=== PATIENT | female | born 1955 | race Caucasian/White ===

== ENCOUNTER 2017-10-29 10:19 | Emergency (ER) | payer OTHER ==
--- OUTSIDE RECORDS SUMMARY | 2017-10-29 10:21 | XMS REPORT | Clinical Summary ---
:1955 Author Organization [facility] Address [address] [place] [address] Care Team Providers Name Role Phone Carlos Anguiano MD Primary Care Provider Allergies Active Allergy Reactions Severity Noted Date Comments Ciprofibrate Swelling 04/08/2016 Ciprofloxacin 06/05/2017 Levofloxacin Swelling 04/08/2016 Nsaids (Non-Steroidal Anti-Inflammatory Drug) Swelling 04/08/2016 Sulfa (Sulfonamide Antibiotics) 06/05/2017 Current Medications Prescription Sig. Disp. Refills Start Date End Date Status ARMOUR THYROID 30 mg TK 1 T PO QD. 1 01/30/2016 Active tablet estradiol (ESTRACE) Apply nightly for 42.5 g 11 04/08/2016 04/08/2017 0.01 % (0.1 mg/gram) 3 weeks, then 3 vaginal cream times per week promethazine Take 1 tablet (25 30 tablet 0 06/05/2017 07/05/2017 (PHENERGAN) 25 MG mg total) by tablet mouth every 6 (six) hours as needed for nausea or vomiting for up to 30 days. diclofenac Apply topically 4 1 Tube 0 06/05/2017 07/05/2017 (VOLTAREN) 1 % gel (four) times a day for 30 days. Active Problems Not on file Encounters Date Type Specialty Care Team Description 06/05/2017 Emergency Emergency Medicine Orlin Salmon Arthritis ( Primary Dx); MD Eduin Knee effusion, left; Knee effusion, right after 10/28/2016 Family History Medical History Relation Name Comments Heart disease Father Cancer Mother Relation Name Status Comments Father Mother Social History Tobacco Use Types Packs/Day Years Used Date Never Smoker Smokeless Tobacco: Never Used Alcohol Use Drinks/Week oz/Week Comments No Sex Assigned at Date Recorded Not on file Last Filed Vital Signs Vital Sign Reading Time Taken Blood Pressure 146/73 06/05/2017 11:05 PM [employer] Pulse 64 06/05/2017 11:05 PM [employer] Temperature 36.8 C (98.2 F) 06/05/2017 8:39 PM [employer] Respiratory Rate 16 06/05/2017 11:05 PM [employer] Oxygen Saturation 96% 06/05/2017 11:05 PM [employer] Inhaled Oxygen Concentration - - Weight - - Height 160 cm (5' 3") 06/05/2017 8:39 PM [employer] Body Mass Index - - Plan of Treatment Health Maintenance Due Date Last Done Comments CERVICAL CANCER SCREENING 1977 BREAST CANCER SCREENING 2006 COLON CANCER SCREENING 2006 SHINGRIX VACCINE (#1) 2006 ZOSTER VACCINE 2016 INFLUENZA VACCINE 10/28/2017 Procedures Procedure Name Priority Date/Time Associated Comments Diagnosis XR KNEE 3 VW RIGHT STAT 06/05/2017 9:36 Results for this PM [employer] procedure are in the results section. XR ABDOMEN ACUTE INC STAT 06/05/2017 9:35 Results for this CHEST PM [employer] procedure are in the results section. XR KNEE 3 VW LEFT STAT 06/05/2017 9:35 Results for this PM [employer] procedure are in the results section. URINALYSIS STAT 06/05/2017 9:14 Results for this PM [employer] procedure are in the results section. ESTIMATED GFR STAT 06/05/2017 9:11 Results for this PM [employer] procedure are in the results section. AMYLASE LEVEL STAT 06/05/2017 9:11 Results for this PM [employer] procedure are in the results section. SEDIMENTATION RATE STAT 06/05/2017 9:11 Results for this PM [employer] procedure are in the results section. HC COMPLETE BLD COUNT STAT 06/05/2017 9:11 Results for this W/AUTO DIFF PM [employer] procedure are in the results section. COMPREHENSIVE STAT 06/05/2017 9:11 Results for this METABOLIC PANEL PM [employer] procedure are in the results section. after 10/28/2016 Results XR Knee 3 Vw Right (06/05/2017 9:36 PM) Narrative Performed At EXAMINATION:XR KNEE 3 VW RIGHT [facility] CLINICAL HISTORY:EFFUSION ON X-RAYKNEE COMPARISON:None. IMPRESSION: There is medial compartment narrowing and spurring. No acute abnormality is noted. There may be a small knee joint effusion. [id number] Procedure Note Interface, Radiology Results Incoming - 06/05/2017 9:40 PM [employer] EXAMINATION: XR KNEE 3 VW RIGHT CLINICAL HISTORY: EFFUSION ON X-RAY KNEE COMPARISON: None. IMPRESSION: There is medial compartment narrowing and spurring. No acute abnormality is noted. There may be a small knee joint effusion. [facility]-[id number] Performing Organization Address [facility] Phone Number [facility] [address] [place] [address] XR Abdomen Acute Inc Chest (06/05/2017 9:35 PM) Narrative Performed At Examination:XR ABDOMEN ACUTE INC CHEST [facility] Clinical History: ABDOMINAL PAIN Comparison: None. Technique: Single frontal view of the chest and 2 views of the abdomen are obtained. Findings: On the chest film, the lungs are free of infiltrate. The heart size normal. No pleural effusion is seen. On the abdominal films, the bowel gas pattern is nonspecific with scattered fecal material throughout the colon. No free air is seen. No bowel dilatation is seen. Impression: Nonspecific but nonobstructive bowel gas pattern with scattered fecal material throughout the colon. [facility]-[id number] Procedure Note Interface, Radiology Results Incoming - 06/05/2017 9:39 PM [employer] Examination: XR ABDOMEN ACUTE INC CHEST Clinical History: ABDOMINAL PAIN Comparison: None. Technique: Single frontal view of the chest and 2 views of the abdomen are obtained. Findings: On the chest film, the lungs are free of infiltrate. The heart size normal. No pleural effusion is seen. On the abdominal films, the bowel gas pattern is nonspecific with scattered fecal material throughout the colon. No free air is seen. No bowel dilatation is seen. Impression: Nonspecific but nonobstructive bowel gas pattern with scattered fecal material throughout the colon. [facility]-[id number] Performing Organization Address [facility] Phone Number [facility] [address] [place] [address] XR Knee 3 Vw Left (06/05/2017 9:35 PM) Narrative Performed At Examination:XR KNEE 3 VW LEFT [facility] Clinical History: Pain Comparison: None. Findings: 3 views of the left knee are obtained. No acute fracture or dislocation is seen. There is mild joint space narrowing of the medial compartment with mild spurring. No joint effusion is seen. IMPRESSION: 1. Mild degenerative joint disease of the medial compartment of the left knee but no acute abnormality identified. [facility]-[id number] Procedure Note Interface, Radiology Results Incoming - 06/05/2017 9:40 PM [employer] Examination: XR KNEE 3 VW LEFT Clinical History: Pain Comparison: None. Findings: 3 views of the left knee are obtained. No acute fracture or dislocation is seen. There is mild joint space narrowing of the medial compartment with mild spurring. No joint effusion is seen. IMPRESSION: 1. Mild degenerative joint disease of the medial compartment of the left knee but no acute abnormality identified. [id number] Performing Organization Address City/[facility]/Zipcode Phone Number [facility] [address] [place] [address] Urinalysis (06/05/2017 9:14 PM) Glucose, UA Negative Negative DEPARTMENT OF PATHOLOGY AND GENOMIC MEDICINE, [facility] Bilirubin, UA Negative Negative [facility] Ketones, UA Negative Negative DEPART[facility] OF PATHOLOGY AND GENOMIC MEDICINE, [facility] Specific gravity, UA =<1.005 1.001 - 1.035 [facility] Blood, UA Trace (A) Negative [facility] pH, UA 6.0 5.0 - 8.5 [facility] Protein, UA Negative Negative [facility] Urobilinogen, UA <2.0 <2.0 [facility] OF PATHOLOGY AND GENOMIC MEDICINE, [facility] Nitrite, UA Negative Negative [facility] Leukocyte esterase, UA Trace (A) Negative [facility]PARTMENT OF PATHOLOGY AND GENOMIC MEDICINE, [facility] Color, UA Yellow [facility] OF PATHOLOGY AND GENOMIC MEDICINE, [facility] Appearance, UA Clear [facility] Specimen Urine Performing Organization Address City/[facility]/Zipcode Phone Number DEPARTMENT OF PATHOLOGY AND [address] [place] [address] [facility] Estimated GFR (06/05/2017 9:11 PM) GFR Non Af Amer 51 (A) mL/min/1.73 m2 [facility] GFR Af Amer 61 mL/min/1.73 m2 DEPARTMENT OF PATHOLOGY Comment: AND GENOMIC MEDICINE, Chronic kidney disease: <60 mL/min/1.73m2 [facility] Kidney failure: <15 mL/min/1.73m2 CENTER The estimated GFR is calculated from the IDMS-traceable Modification of Diet in Renal Disease Equation. The accuracy of the calculation is poor when the creatinine is normal. Calculated values >90 mL/min/1.73m2 are not reported. This equation has not been validated in children (<18 years), women, the elderly (>70 years), or ethnic groups other than Caucasians and Americans. Specimen Plasma specimen Performing Organization Address City/State/Zipcode Phone Number DEPARTMENT OF PATHOLOGY AND [address] [place] [address] [facility] Sedimentation rate (06/05/2017 9:11 PM) Sedimentation rate 5 0 - 20 mm/hr [facility] DEPARTMENT OF PATHOLOGY AND GENOMIC MEDICINE Specimen Blood Performing Organization Address City/State/Zipcode Phone Number [facility] DEPARTMENT OF PATHOLOGY AND [address] [place] [address] [facility] CBC with platelet and differential (06/05/2017 9:11 PM) WBC 7.74 4.50 - 11.00 k/uL [facility] RBC 5.38 4.20 - 5.50 m/uL [facility] HGB 15.9 12.0 - 16.0 g/dL [facility] HCT 46.4 37.0 - 47.0 % [facility] MCV 86.2 82.0 - 100.0 fL [facility] MCH 29.6 27.0 - 34.0 pg [facility] MCHC 34.3 31.0 - 37.0 g/dL [facility] RDW - SD 40.8 37.0 - 55.0 fL [facility] MPV 11.1 8.8 - 13.2 fL [facility] Platelet count 240 150 - 400 k/uL [facility] Neutrophils 61.6 39.0 - 69.0 % [facility] Lymphocytes 26.0 25.0 - 45.0 % [facility] Monocytes 11.0 (H) 0.0 - 10.0 % [facility] Eosinophils 0.9 0.0 - 5.0 % [facility] Basophils 0.5 0.0 - 1.0 % [facility] Specimen Blood Performing Organization Address City/State/Zipcode Phone Number DEPARTMENT OF PATHOLOGY AND [address] [place] [address] Amylase level (06/05/2017 9:11 PM) Amylase 34 14 - 97 U/L [facility] Specimen Plasma specimen Performing Organization Address City/State/Zipcode Phone Number DEPARTMENT OF PATHOLOGY AND [address] [place] [address] Comprehensive metabolic panel (06/05/2017 9:11 PM) Sodium 137 128 - 145 mEq/L [facility] Potassium 3.8 3.6 - 5.1 mEq/L [facility] CO2 28 18 - 33 mEq/L [facility] Chloride 103 98 - 108 mEq/L [facility] Glucose 99 73 - 118 mg/dL [facility] Calcium 9.7 8.0 - 10.3 mg/dL [facility] BUN 14 7 - 22 mg/dL [facility] Creatinine 1.1 0.6 - 1.2 mg/dL [facility] Alkaline phosphatase 73 42 - 141 U/L [facility] ALT 29 10 - 47 U/L [facility] AST 26 11 - 38 U/L [facility] Total bilirubin 1.0 0.2 - 1.6 mg/dL [facility] Albumin 4.0 3.3 - 5.5 g/dL [facility] Protein 7.2 6.4 - 8.1 g/dL [facility] Anion gap 6 (L) 7 - 15 mEq/L DEPARTMENT OF Comment: PATHOLOGY AND GENOMIC Starting from June , anion gap [facility] no longer incorporates potassium. Please note the change. [facility] A/G ratio 1.2 0.7 - 3.8 [facility] Specimen Plasma specimen Performing Organization Address City/State/Zipconv Phone Number DEPARTMENT OF PATHOLOGY AND [address] [place], [place] [id number] [place] [address] after 10/28/2016 Insurance Payer Benefit Plan / Group Subscriber ID Type Phone Address AETNA AETNA HMO,POS,EPO, MC/EC xxxxxxxxxx HMO [phone] [place] [id number]
--- OUTSIDE RECORDS SUMMARY | 2017-10-29 10:24 | XMS REPORT | Continuity of Care Document ---
:1955 Author Organization Interface Problems Problem Status Onset Classification Date Comments Source Date Reported KNEE PAIN Active [facility] [address] BDAZ-NAUSEA, EARLY Active [facility] 017 [facility] STOMACH PAIN Active [address] Discharge Diagnosis: 09/19/2015 [place] Adult hypothyroidism [address] WEAKNES AND BLURY Active [facility] VISION [address] BDAZ - NEW PT CONSULT Active [address] BDDC/ Z12.11 SCREENING Active [facility] [employer] [facility] FOR MALIGNANT ALICIA [address] [place] [address] PAIN IN THE ABDOMEN; Active [facility] AND [address] VITAMIN D DEFICIENCY Active Condition 08/23/2014 015 [facility] DIARRHEA Active Condition 08/23/2014 015 [facility] MAMMOGRAM YEARLY Active Condition 08/23/2014 SCREENING 015 Medical Group Diarrhea<sup>1</sup> Active Problem 10/09/2017 Data 015 migrated Medical from [facility], on 10/04/14. OP[place],[facility], [facility] [place] Screening Active Problem 10/09/2017 Data mammography<sup>9</sup 015 migrated Medical > from [facility], on 10/04/14. OPID [place],[facility], JESSICA [place], [place] Vitamin D Active Problem 10/09/2017 Data deficiency<sup>12</sup 015 migrated Medical > from [facility], on 10/04/14. OPID [place],[facility], J[place], [place] MYALGIA Active Condition 08/23/2014 015 [facility] Group PAIN IN JOINT, Active Condition 08/23/2014 MULTIPLE SITES 015 Medical Group GASTRITIS Active Condition 08/23/2014 015 Medical Group Gastritis<sup>3</sup> Active Problem 10/09/2017 Data 015 migrated Medical from [facility], on 10/04/14. OPID [place],[facility], [place], [place] Multiple joint Active Problem 10/09/2017 Data pain<sup>4</sup> 015 migrated Medical from [facility], on 10/04/14. OPID [place],[facility], [place], [place] Muscle Active Problem 10/09/2017 Data pain<sup>5</sup> 015 migrated Medical from [facility], on 10/04/14. OPID [place],[facility], [place], [place] Nausea<sup>6</sup> Active Problem 10/09/2017 Data 015 migrated Medical from [facility], on 10/04/14. OPID [place],[facility], [place], [place] HYPOGLYCEMIA, REACTIVE Active Condition 08/23/2014 015 Medical Group ROUTINE GENERAL Active Condition 08/23/2014 MEDICAL EXAMINATION AT [address] [place] [address] [facility] Group NUMBNESS Active Condition 08/23/2014 015 Medical Group PINWORMS Active Condition 08/23/2014 015 Medical Group Enterobiasis<sup>2</rosenberg Active Problem 10/09/2017 Data p> 015 migrated Medical from [facility], on 10/04/14. OPID [place],[facility], [place], [place] Numbness<sup>7</sup> Active Problem 10/09/2017 Data 015 migrated Medical from [facility], on 10/04/14. OPID [place],[facility], [place], [place] Reactive Active Problem 10/09/2017 Data hypoglycemia<sup>8</rosenberg 015 migrated Medical p> from Group,[facility] [place], on 10/04/14. OPID [place],[facility], [place], [place] BACK PAIN, LUMBAR, Active Condition 08/23/2014 WITH RADICULOPATHY 014 Medical Group CERVICAL RADICULOPATHY Active Condition 08/23/2014 014 Medical Group HIP PAIN, BILATERAL Active Condition 08/23/2014 014 Medical Group BREAST PAIN, BILATERAL Inactive Condition 08/23/2014 014 Medical Group Discharge Diagnosis: 12/03/2013 [place] Biliary colic [address] NAUSEA Active [place] [address] [place] ABDOMINAL PAIN, RIGHT Inactive Condition 08/23/2014 UPPER QUADRANT 014 Medical Group ABDOMINAL PAIN, LEFT Active Condition 11/07/2013 UPPER QUADRANT 014 Medical Group ACID REFLUX DISEASE Active Condition 08/23/2014 014 Medical Group MUSCLE STRAIN Active Condition 10/05/2013 014 Medical Group NAUSEA Inactive Condition 08/23/2014 014 Medical Group ROTATOR CUFF SPRAIN Active Condition 08/23/2014 014 Medical Group SACROILIITIS Inactive Condition 08/23/2014 014 Medical Group OBESITY Active Condition 08/23/2014 014 Medical Group LONG-TERM USE OF OTHER Active Condition 08/23/2014 MEDICATIONS 014 Medical Group DRY SOCKET Inactive Condition 08/23/2014 013 Medical Group HEARTBURN Inactive Condition 08/23/2014 013 Medical Group INGROWN NAIL Inactive Condition 08/23/2014 013 Medical Group FATIGUE Active Condition 08/23/2014 013 Medical Group FLAT FOOT Active Condition 08/23/2014 013 Medical Group HAIR LOSS Active Condition 08/23/2014 013 Medical Group BACK PAIN Active Condition 08/23/2014 012 Medical Group DEFICIENCY, VITAMIN D Active Condition 08/23/2014 NOS 012 Medical Group HYPERGLYCEMIA Inactive Condition 08/23/2014 012 Medical Group HYPOTHYROIDISM Active Condition 08/23/2014 012 Medical Group Sinusitis<sup>10, Resolved Problem 10/09/2017 Data 11</sup> 012 migrated Medical from [facility], [place], on 10/13/14. OPID [place],[facility], [place], [place] ASTHMA Active Condition 08/23/2014 Medical Group HEADACHE Inactive Condition 08/23/2014 Medical Group HYPERCHOLESTEROLEMIA Active Condition 08/23/2014 Medical Group FAMILY HISTORY OF Active Condition 08/23/2014 ASTHMA Medical Group FH LUNG CANCER Active Condition 08/23/2014 Medical Group FH DEPRESSION Active Condition 08/23/2014 Medical Group FH DIABETES - DM Active Condition 08/23/2014 Medical [facility] FH HEART DISEASE Active Condition 08/23/2014 Medical Group Hypoglycemia Resolved Problem 10/09/2017 Medical Group,[facility], OPID [place],[facility], [place], OP[place] Obesity Active Problem 10/09/2017 Medical Group,[facility], OPID [place],[facility], [place], [place] Medications Medication Details Route Status Patient Ordering Order Source Instructions Provider Date valACYclovir 1 g 1 gm=1 tab, No Longer oral tablet PO, Q8H, X Active 018 Medical 10 day, # Group 30 tab, 1 Refill(s), [facility]acy: [facility] [id number] pregabalin 50 MG 50 mg=1 Active Oral Capsule cap, PO, 018 Medical [Lyrica] TID, # 90 Group cap, 0 Refill(s) valACYclovir 1 g 1 gm=1 tab, No Longer oral tablet PO, Q8H, X Active 018 Medical 7 day, # 21 Group tab, 1 Refill(s), Pharmacy: [facility] [id number] valACYclovir 1 g 1 gm=1 tab, No Longer oral tablet PO, Q8H, X Active 018 Medical 7 day, # 21 Group tab, 1 Refill(s), Pharmacy: [facility] [id number] polyethylene 17 gm, PO, No Longer glycol 3350 oral Daily, X 31 Active 018 Medical powder for day, # 527 Group reconstitution gm, 1 Refill(s), Pharmacy: [facility] [id number] benzonatate 100 100 mg=1 Active mg oral capsule cap, PO, 018 Medical TID, do not Group crush or chew, X 10 day, # 30 cap, 0 Refill(s), Pharmacy: [facility] [id number] Codeine Phosphate 5 mL, PO, Active 2 MG/ML / Q12H, PRN 018 Medical Guaifenesin 20 cough, X 10 Group MG/ML Oral day, # 100 Solution mL, 0 [Cheratussin] Refill(s) Fluticasone 1 spray, Active propionate 0.05 NASAL, BID, 018 Medical MG/ACTUAT Metered # 16 gm, 2 Group Dose Nasal [place] Refill(s), Pharmacy: [facility] [employer] [id number] Azithromycin 5 See Active Day Dose Pack 250 Instruction 018 Medical mg oral tablet s, Take 2 Group tablets by mouth the first day then 1 tablet by mouth days 2-5., X 5 day, # 6 tab, 0 Refill(s), Pharmacy: [facility] [employer] [id number] clonazePAM 0.5 mg 0.5 mg=1 Active oral tablet, tab, PO, 017 Medical disintegrating BID, # 60 Group tab, 1 Refill(s) EnteraGam EnteraGam, Active [place] See 016 [facility] s, Samples given in clinic on 03/12/16. Lot [id number] exp date 10/15, # 1 box, Refill(s) 0 pantoprazole 40 40 mg=1 Active [place] MG Enteric Coated tab, PO, 016 Medical Tablet [Protonix] Daily, 0 Center Refill(s) Levothyroxine 25 Active [place] Sodium 0.025 MG microgram=1 016 [place] Oral Tablet tab, PO, [Synthroid] Daily, # 14 tab, 0 Refill(s) Sodium Chloride 1,000 mL, Inactive [place] 0.154 MEQ/ML 1,000 016 [place] Injectable ml/hr, Solution Infuse Over: 1 hr, Route: IV, 1,000, Drug form: INJ, ONCE, Priority: STAT, Dosing Weight 85.818 kg, Start date: 09/16/15 17:33:00 CDT, Duration: 1 doses or times, Stop date: 09/16/15 17:33:00 CDT Saline Flush 0.9% 10 mL, Inactive [place] Route: IVP, 016 [place] Drug Form: INJ, Dosing Weight 85.818, kg, PRN, PRN Line Flush, Start date: 09/16/15 17:33:00 CDT, Duration: 30 day, Stop date: 10/16/15 17:32:00 CDTNotes: (Same as: BD Posiflush) cholestyramine 4 4 gm, PO, Active [place] g/5 g oral powder BID, # 210 015 Medical gm, 0 Center Refill(s), called to pharmacy Promethazine 12.5 mg=1 Active [place] Hydrochloride tab, PO, 015 Medical 12.5 MG Oral Q4H, PRN Center Tablet Other-See [Phenergan] Comments, X 10 day, # 60 tab, 0 Refill(s), called to pharmacy Hyoscyamine 0.125 mg=1 Inactive [place] Sulfate 0.125 MG tab, SL, 015 Medical Sublingual Tablet Q4H, # 30 Center [Levsin] tab, 1 Refill(s), Pharmacy: [facility] [id number] Ondansetron 8 MG 8 mg=1 tab, Active [place] Disintegrating PO, TID, 015 Medical Tablet [Zofran] PRN Nausea Center and Vomiting, Dissolve tab under tongue, X 7 day, # 21 tab, 1 Refill(s), Pharmacy: [facility] [id number] GoLYTELY oral 240 mL, PO, Active [place] powder for Q10Min, # 1 015 Medical reconstitution ea, 0 Center Refill(s), Pharmacy: [facility] [id number] Flagyl 500 mg=1 Active [place] tab, PO, 015 Medical BID, # 14 Center tab, 0 Refill(s) VITAMIN D 1 capsule Active (ERGOCALCIFEROL) weekly x 12 015 Medical 84833 UNIT CAPS weeks Group OMEPRAZOLE 20 MG Take one Active CPDR capsule by 015 Medical mouth daily Group ONDANSETRON HCL 4 1 tablet Active MH MG TABS every 8 015 Medical hours as Group needed for nausea/vomi ting QSYMIA 3.75-23 MG 1 po qd Active [id number] 015 Medical Group CYCLOBENZAPRINE 1/2-1 po No Longer MH HCL 10 MG TABS TID as Active 015 Medical needed for Group spasms PROMETHAZINE HCL 1 SUPP AK Q No Longer MH 25 MG SUPP 4 TO 6 HRS Active 014 Medical PRN N/V. Group TRAMADOL HCL 50 1 tablet No Longer MH MG TABS every 12 Active 014 Medical hours as Group needed for pain GABAPENTIN 100 MG 1 capsule No Longer CAPS three times Active 014 Medical a day Group TRAMADOL HCL 50 1 tablet Active MH MG TABS every 12 014 Medical hours as Group needed for pain TRAMADOL HCL 50 1 tablet No Longer MH MG TABS every 12 Active 014 Medical hours as Group needed for pain Promethazine 12.5 mg=1 Active [place] Hydrochloride tab, PO, 014 Land 12.5 MG Oral Q6H, Nausea Tablet & Vomiting, [Phenergan] # 20 tab, 0 Refill(s) Acetaminophen 325 1 tab, PO, Active [place] MG / Hydrocodone Q6H, Pain, 014 [place] Bitartrate 5 MG # 24 tab, 0 Oral Tablet Refill(s) [[place] 5/325] Phenergan 25 mg, 1 Inactive [place] mL, Route: 014 [place] IM, Drug form: INJ, ONCE, Dosing Weight 96.818, kg, Priority: STAT, Start date: 11/30/13 12:41:00, Stop date: 11/30/13 12:41:00Not es: Do not give IV push. (Same as: Phenergan) Saline Flush 0.9% 10 mL, Inactive [place] Route: IVP, 014 [place] Drug Form: INJ, Dosing Weight 96.818, kg, PRN, PRN Line Flush, Start date: 11/30/13 12:25:00, Duration: 30 day, Stop date: 12/30/13 12:24:00Not es: (Same as: BD Posiflush) Carafate 0 Refill(s) Active MH [place] 014 [place] Promethazine 0 Refill(s) Active MH [place] 014 [place] SUCRALFATE 1 10 mL qid x No Longer MH GM/10ML SUSP 2 weeks Active 014 Medical Group PROMETHAZINE HCL 1 po BID No Longer MH 12.5 MG TABS prn Active 014 Medical Group SUCRALFATE 1 10 mL qid x No Longer MH GM/10ML SUSP 2 weeks Active 014 Medical Group OMEPRAZOLE 20 MG Take one Active MH CPDR capsule by 014 Medical mouth daily Group MELOXICAM 7.5 MG 1 tablet Active MH TABS daily as 014 Medical needed for Group pain PROMETHAZINE HCL 1-2 tablets No Longer MH 12.5 MG TABS every 6 Active 014 Medical hours as Group needed for nausea OMEPRAZOLE 20 MG Take one No Longer MH CPDR capsule by Active 014 Medical mouth daily Group MELOXICAM 7.5 MG 1 tablet No Longer MH TABS daily as Active 014 Medical needed for Group pain OMEPRAZOLE 20 MG Take one No Longer MH CPDR capsule by Active 014 Medical mouth daily Group MELOXICAM 7.5 MG 1 tablet No Longer MH TABS daily as Active 014 Medical needed for Group pain OMEPRAZOLE 20 MG Take one No Longer MH CPDR capsule by Active 014 Medical mouth daily Group MELOXICAM 7.5 MG 1 tablet No Longer MH TABS daily as Active 014 Medical needed for Group pain PHENTERMINE HCL 1 tablet in No Longer MH 37.5 MG TABS the morning Active 014 Medical Group PHENTERMINE HCL 1 tablet in No Longer MH 37.5 MG TABS the morning Active 014 Medical Group PHENTERMINE HCL 1 tablet in No Longer 06/05/2 MH 37.5 MG TABS the morning Active 014 Medical Group PHENTERMINE HCL 1 tablet in No Longer MH 37.5 MG TABS the morning Active 014 Medical Group CARAFATE 1 10 mL QID No Longer MH GM/10ML SUSP Active 013 Medical Group CARAFATE 1 10 mL QID No Longer MH GM/10ML SUSP Active 013 Medical Group ZEGERID 40-1680 1 po qd No Longer MH MG PACK Active 013 Medical Group ALIGN one daily No Longer MH Active 013 Medical Group ZEGERID 40-1680 1 po qd No Longer MH MG PACK Active 013 Medical Group GLUMETZA 500 MG 1 po qd Active MH [id number] 013 Medical Group NULEV 0.125 MG 1 po q 8-12 No Longer MH TBDP prn Active 012 Medical Group ZITHROMAX Z-MADHU Take as No Longer 250 MG TABS directed Active 012 Medical Group THYROID COMPOUND Active Medical Group Allergies, Adverse Reactions, Alerts Substance Category Reaction Severity Reaction Status Date Comments Source type Reported ANTI-INFLAMMATO Drug ANTI-INFL FIORDALIZA allergy AMMATORIE 2 Medical S Group LEVAQUIN Drug LEVAQUIN allergy 2 Medical Group BACTRIM Drug BACTRIM allergy 2 Medical Group ciprofloxacin Assertion Drug Active allergy Medical Group Levaquin Assertion Drug Active allergy Medical Group Food Iodine Assertion Drug Active allergy Medical Group NSAIDs Assertion Drug Active allergy Medical Group Immunizations Immunization Date Given Site Status Last Updated Comments Source influenza 12/08/2011 completed Medical immunization (Flu Group Vax) has been administered Results Order Name Results Value Reference Date Interpretation Comments Source Range Abdomen/Pel Abdomen/Pelv EXAM: CT ABDOMEN AND PELVIS WITHOUT CONTRAST - JESSICA vis wo IV is wo IV /2015 - [place] contrast CT contrast CT 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 COMPARISON: CT abdomen and pelvis with contrast 02/23/2015. TECHNIQUE: Volumetric CT acquisition of the abdomen and pelvis without the intravenous administration contrast. Axial, coronal and sagittal reconstructions. Oral contrast: None. FINDINGS: Multiple stable hypodensities in the liver correspond to cysts seen on prior CT. No biliary dilatation. The gallbladder surgically absent. The pancreas , spleen, and adrenal glands are unremarkable. Stab le 2.5 cm cyst in the right kidney. Multiple stable bilateral parapelvic cysts. 2 mm nonobstructing calculus in the midportion of the left kidney. No hydronephrosis. The visualized portions of the ureters and bladder are unremarkable. No bowel dilatation or obstruction. Diverticula are seen in the descending and sigmoid colon. No evidence of bowel wall thickening or pericolonic inflammatory stranding. Normal appendix. No free fluid o r free air. The uterus and adnexa are grossly unremarkable.Small bilateral inguinal hernias containing fat. Tiny umbilical hernia containing fat. Degenerative changes in the lumbar spine. Stable grade 1 anterolisthesis of L5 on S1. The S1 vertebral body transitional. IMPRESSION: 2 mm nonobstructing left renal calculus. Diverticulosis without evidence of diverticulitis. CARDIAC Troponin-I null 0.00 - 09/15 [facility] ENZYMES 0.40 /2015 [facility] CARDIAC CK MB null 0.5 - 3.6 09/15 [place] ENZYMES /2015 [facility] CARDIAC Total CK 54 unit/L 12 - 191 09/15 [facility] ENZYMES /2015 [facility] CARDIAC CK MB Index null 0.0 - 2.5 09/15 [facility] ENZYMES [facility] CHEM PANEL Total 7.0 g/dL 6.4 - 8.4 09/15 [place] Protein /2015 [facility] CHEM PANEL eGFR 71 09/15 Result Comment: The eGFR is calculated using the CKD-EPI formula. In most young, healthy individuals the eGFR will be >90 mL/ min/1.73m2. The eGFR declines with age. An eGFR of 60-89 may be normal in mL/min/1.7 /2015 some populations, particularly the elderly, for whom the CKD-EPI formula has not been extensively validated. Use of the eGFR is not recommended in the following populations: [facility] 3m2 Individuals with unstable creatinine concentrations, including patients and those with serious co-morbid conditions. Patients with extremes in muscle mass or diet. The data above are obtained from the National Kidney Disease Education Program (NKDEP) which additionally recommends that when the eGFR is used in patients with extremes of body mass index for purposes of drug dosing, the eGFR should be multiplied by the estimated BMI. CHEM PANEL Globulin 3.3 g/dL 2.0 - 4.0 09/15 [place] CHEM PANEL A/G Ratio 1.1 0.7 - 1.6 09/15 [place] CHEM PANEL Bili Total 0.8 mg/dL 0.2 - 1.3 09/15 [facility] CHEM PANEL Alk Phos 77 unit/L 39 - 136 09/15 [facility] CHEM PANEL AGAP 12.7 meq/L 10.0 - 09/15 [facility] 20.0 [place] CHEM PANEL B/C Ratio 18 6 - 25 09/15 [place] CHEM PANEL Albumin Lvl 3.7 g/dL 3.5 - 5.0 09/15 [place] CHEM PANEL ALT 24 unit/L 0 - 65 09/15 [place] CHEM PANEL AST 18 unit/L 0 - 37 09/15 [facility] CHEM PANEL Chloride Lvl 108 meq/L 95 - 109 09/15 [facility] CHEM PANEL Potassium 3.7 meq/L 3.5 - 5.1 09/15 [place] Lvl [place] CHEM PANEL CO2 28 meq/L 24 - 32 09/15 [facility] CHEM PANEL Calcium Lvl 8.6 mg/dL 8.5 - 10.5 09/15 [facility] CHEM PANEL Sodium Lvl 145 meq/L 135 - 145 09/15 [place] CHEM PANEL Creatinine 0.90 mg/dL 0.50 - 09/15 [facility] Lvl 1.40 [facility] CHEM PANEL BUN 16 mg/dL 7 - 22 09/15 [facility] CHEM PANEL Glucose Lvl 102 mg/dL 70 - 99 09/15 [facility] HEMATOLOGY WBC 8.8 K/CMM 3.7 - 10.4 09/15 [facility] HEMATOLOGY RBC 5.39 M/CMM 4.20 - 09/15 MH [place] 5.40 [place] HEMATOLOGY MCV 88.0 fL 80.0 - 09/15 [facility] 98.0 [place] HEMATOLOGY Hgb 15.6 g/dL 12.0 - 09/15 [facility] 16.0 /2015 [place] HEMATOLOGY MCH 29.0 pg 27.0 - 09/15 [facility] 31.0 /2015 [place] HEMATOLOGY MPV 9.5 fL 7.4 - 10.4 09/15 [place] /2015 [place] HEMATOLOGY Platelet 242 K/CMM 133 - 450 09/15 /2015 [facility] HEMATOLOGY MCHC 33.0 g/dL 32.0 - 09/15 [facility] 36.0 /2015 [facility] HEMATOLOGY RDW 13.3 % 11.5 - 09/15 [facility] 14.5 /2015 [place] HEMATOLOGY Hct 47.5 % 36.0 - 09/15 [facility] 48.0 /2015 [place] HEMATOLOGY Basophils 0.5 % 0.0 - 1.0 09/15 [place] HEMATOLOGY Eosinophils 1.1 % 0.0 - 4.0 09/15 /2015 [place] HEMATOLOGY Monocytes 6.3 % 2.0 - 12.0 09/15 [place] HEMATOLOGY Segs 54.0 % 45.0 - 09/15 [place] 75.0 /2015 [place] HEMATOLOGY Lymphocytes 38.1 % 20.0 - 09/15 [place] 40.0 /2015 [facility] HEMATOLOGY Basophils # 0.0 K/CMM 0.0 - 0.2 09/15 [facility] HEMATOLOGY Eosinophils 0.1 K/CMM 0.0 - 0.5 09/15 [place] # /2015 [place] HEMATOLOGY Monocytes # 0.6 K/CMM 0.0 - 0.8 09/15 [facility] HEMATOLOGY Lymphocytes 3.4 K/CMM 1.0 - 5.5 09/15 [place] # /2015 [place] HEMATOLOGY Segs-Bands # 4.7 K/CMM 1.5 - 8.1 09/15 [place] URINE AND UA Mucus None Seen None Seen 09/15 [place] STOOL (09/16/15 5:47 PM) URINE AND UA Bacteria Occasional None Seen 09/15 [place] STOOL /HPF /HPF /2015 [place] URINE AND UA Nitrite Negative Negative 09/15 [facility] STOOL (09/16/15 5:47 PM) URINE AND UA Glucose Negative Negative 09/15 [facility] STOOL [place] (09/16/15 5:47 PM) URINE AND UA Sq Epi Occasional Few /LPF 09/15 [facility] STOOL /LPF /2015 [place] URINE AND UA WBC 0-2 /HPF None Seen 09/15 [facility] STOOL /HPF URINE AND UA RBC None Seen 0 - 2 09/15 [facility] STOOL (09/16/15 5:47 PM) URINE AND Micro? Performed 09/15 [facility] STOOL (09/16/15 5:47 PM) URINE AND UA Leuk Est Negative Negative 09/15 [facility] STOOL (09/16/15 5:47 PM) URINE AND UA Protein Negative Negative 09/15 [facility] STOOL [facility] (09/16/15 5:47 PM) URINE AND UA pH 6.0 5.0 - 8.0 09/15 [facility] STOOL [facility] URINE AND UA Bili Negative Negative 09/15 [facility] *NA* (09/16/15 5:47 PM) URINE AND UA Ketones Negative Negative 09/15 [place] STOOL [facility] *NA* (09/16/15 5:47 PM) URINE AND UA 0.2 EU/dL 0.1 - 1.0 09/15 [facility] STOOL Urobilinogen [facility] URINE AND UA Blood Trace Negative 09/15 [facility] *ABN* (09/16/15 5:47 PM) URINE AND UA Turbidity Clear Clear 09/15 [facility] (09/16/15 5:47 PM) URINE AND UA Color Yellow Yellow 09/15 [facility] STOOL *NA* (09/16/15 5:47 PM) URINE AND UA Spec Grav 1.025 <=1.030 09/15 Sugar [facility] Brain wo Brain wo CLINICAL HISTORY:Syncope. 09/15 [facility] contrast CT contrast CT [facility] AGE: 59 years GENDER: Female Read by: Jose Alberto Snachez MD Dictated Date/time: 09/16/15 18:20 Electronically Signed by: Jose Alberto Sanchez MD 09/16/15 18:22 FINAL REPORT TECHNIQUE: Axial scans of the brain without contrast including multiplanar computer-generated reformations. Total Dose Length Product: 691.12 mGy-cm There is no CT evidence of acute intracranial hemorrhage, mass effect or midline shift. There is preservation of the mcintosh-white matter differentiation.. . There is no extra-axial fluid collection. Ventricles, subarachnoid spaces and sulci are appropriate for patient age. Orbits are symmetric. The paranasal sinuses and mastoid air cells well pneumatized. IMPRESSION: No acute intracranial findings. Chest 1view Chest 1view CLINICAL HISTORY: Syncope 09/15 - [place] DX DX /2015 - [place] AGE: 59 years GENDER: Female Read by: Jose Alberto Sanchez MD Dictated Date/time: 09/16/15 18:24 Electronically Signed by: Jose Alberto Sanchez MD 09/16/15 18:25 FINAL REPORT TECHNIQUE: Single AP, portable chest radiograph, 1 view. COMPARISON: None FINDINGS: The cardiomediastinal silhouette is within normal limits. No focal airspace or interstitial opacities are seen. No pleural effusions. No pneumothorax. No significant osseous abnormalities are identified. IMPRESSION: No acute cardiopulmonary disease. Abdomen/Pel Abdomen/Pelv CT OF ABDOMEN AND PELVIS WITH CONTRAST, 02/23/201502/23 - OPID vis w IV is w IV /2014 - [facility] contrast CT contrast CT [place] HISTORY: Left lower quadrant abdominal pain. Read by: Rob Townsend MD Dictated Date/time: 02/23/15 08:19 Electronically Signed by: Rob Townsend MD 02/23/15 08:32 FINAL REPORT TECHNIQUE: Sequential 5 mm axial postcontrast images were obtained from the hemidiaphragms through the symphysis pubis. Delayed axial images and sagittal and coronal reconstructions were performed. DLP: 1719 mGy-cm. FINDINGS: Small pleural tags at the lung bases. No evidence of noncalcified lung nodules or pleural effusions. Multiple small benign hepatic cysts without evidence of solid liver mass or bile duct dilatation. Absent gallbladder. Normal pancreas, spleen, adrenal glands, and inferior vena cava. Abdominal aortic ca lcifications without aneurysm. 2.5 cm benign cyst in right kidney. Multiple bilateral benign peripelvic cysts noted. No evidence of solid renal mass or hydronephrosis involving either kidney. No evidence of large or small bowel obstruction or free air. Mid descending colon diverticulosis with no CT evidence of acute diverticulitis . No evidence of torsion of appendix epiploica. Normal appendix. Mild degenerative changes in the lumbar spine. Mild anterolisthesis of L5 on S1 related to degenerative changes involving facet joints. CONCLUSION: Mild descending colon diverticulosis with no CT evidence of acute diverticulitis. Serology HELICOB IGG 0.6 U/mL 08/23 [facility] Chemistry T4, FREE 0.96 ng/dl 0.76 - 08/22 1.46 /2014 [facility] Hematology ESR 1 mm/hr 0 - 20 08/22 [facility] Serology RHONDA Negative 08/22 [facility] URINE AND UA Bacteria Occasional None Seen 11/30 [place] STOOL /HPF /HPF [facility] URINE AND UA RBC 0-2 /HPF 0 - 2 11/30 [facility] URINE AND UA Sq Epi Few /LPF Few /LPF 11/30 [facility] URINE AND UA WBC 0-2 /HPF None Seen 11/30 [place] STOOL /HPF /2013 [facility] URINE AND UA Bili Negative Negative 11/30 [facility] *NA* (11/30/13 2:00 PM) URINE AND UA Blood Trace Negative 11/30 [facility] *ABN* (11/30/13 2:00 PM) URINE AND UA 0.2 EU/dL 0.1 - 1.0 11/30 [place] STOOL Urobilinogen [facility] URINE AND UA pH 6.0 5.0 - 8.0 11/30 [facility] URINE AND UA Ketones Negative Negative 11/30 [facility] *NA* (11/30/13 2:00 PM) URINE AND UA Protein Negative Negative 11/30 [facility] (11/30/13 2:00 PM) URINE AND UA Glucose Negative Negative 11/30 [facility] (11/30/13 2:00 PM) URINE AND UA Turbidity Clear Clear 11/30 [facility] (11/30/13 2:00 PM) URINE AND UA Spec Grav 1.020 <=1.030 11/30 [facility] URINE AND UA Color Yellow Yellow 11/30 [place] STOOL [facility] *NA* (11/30/13 2:00 PM) URINE AND UA Leuk Est Negative Negative 11/30 [facility] (11/30/13 2:00 PM) URINE AND UA Nitrite Negative Negative 11/30 [place] STOOL [facility] (11/30/13 2:00 PM) CHEM PANEL B/C Ratio 16 6 - 25 11/30 [facility] CHEM PANEL AGAP 14.0 meq/L 10.0 - 11/30 [facility] [place] 20.0 [place] CHEM PANEL Globulin 3.9 g/dL 2.0 - 4.0 11/30 [place] CHEM PANEL A/G Ratio 1.1 0.7 - 1.6 11/30 [place] CHEM PANEL eGFR 71 11/30 1Result Comment: The eGFR is calculated using the CKD-EPI formula. In most young, healthy individuals the eGFR will be >90 mL/ min/1.73m2. The eGFR declines with age. An eGFR of 60-89 may be normal in mL/min/1.7 /2013 some populations, particularly the elderly, for whom the CKD-EPI formula has not been extensively validated. Use of the eGFR is not recommended in the following populations: [place] 3m2 Individuals with unstable creatinine concentrations, including patients and those with serious co-morbid conditions. Patients with extremes in muscle mass or diet. The data above are obtained from the National Kidney Disease Education Program (NKDEP) which additionally recommends that when the eGFR is used in patients with extremes of body mass index for purposes of drug dosing, the eGFR should be multiplied by the estimated BMI. CHEM PANEL ALT 31 unit/L 0 - 65 11/30 [facility] [place] CHEM PANEL AST 25 unit/L 0 - 37 11/30 [facility] [place] CHEM PANEL Alk Phos 93 unit/L 39 - 136 11/30 [place] CHEM PANEL Bili Total 0.9 mg/dL 0.2 - 1.3 11/30 [place] CHEM PANEL Calcium Lvl 9.5 mg/dL 8.5 - 10.5 11/30 [place] CHEM PANEL Total 8.0 g/dL 6.4 - 8.4 11/30 [facility] [place] Protein [place] CHEM PANEL Albumin Lvl 4.1 g/dL 3.5 - 5.0 11/30 [place] CHEM PANEL CO2 24 meq/L 24 - 32 11/30 [place] CHEM PANEL Chloride Lvl 104 meq/L 95 - 109 11/30 [place] CHEM PANEL Creatinine 0.9 mg/dL 0.5 - 1.4 11/30 [facility] [place] Lvl [place] CHEM PANEL Sodium Lvl 138 meq/L 135 - 145 11/30 [place] CHEM PANEL Potassium 4.0 meq/L 3.5 - 5.1 09/03 [facility] [place] Lvl /2013 [place] CHEM PANEL BUN 14 mg/dL 7 - 22 11/30 [place] CHEM PANEL Glucose Lvl 92 mg/dL 70 - 99 11/30 2Interpretive Data: Adult reference range values reflect the clinical guidelines [place] /2013 of the [place] [employer]. [place] CHEM PANEL Lipase Lvl 147 unit/L 73 - 393 11/30 [facility] [place] CHEM PANEL Amylase Lvl 35 unit/L 25 - 115 11/30 [place] HEMATOLOGY MCHC 34.0 g/dL 32.0 - 09 [facility] [place] 36.0 /2013 [place] HEMATOLOGY RDW 12.7 % 11.5 - 11/30 [facility] [place] 14.5 /2013 [place] HEMATOLOGY Platelet 236 K/CMM 133 - 450 11/30 [place] HEMATOLOGY MPV 9.6 fL 7.4 - 10.4 11/30 [place] HEMATOLOGY Hgb 16.9 g/dL 12.0 - 11/30 [place] 16.0 [place] HEMATOLOGY WBC 7.1 K/CMM 3.7 - 10.4 11/30 [place] HEMATOLOGY RBC 5.64 M/CMM 4.20 - 11/30 [place] 5.40 /2013 [place] HEMATOLOGY Hct 49.7 % 36.0 - 11/30 [facility] [place] 48.0 /2013 [place] HEMATOLOGY MCH 29.9 pg 27.0 - 11/30 [place] 31.0 /2013 [place] HEMATOLOGY MCV 88.0 fL 80.0 - 11/30 [place] 98.0 /2013 [place] HEMATOLOGY Eosinophils 0.0 K/CMM 0.0 - 0.5 11/30 [facility] [place] # /2013 [place] HEMATOLOGY Segs-Bands # 4.8 K/CMM 1.5 - 8.1 11/30 [place] HEMATOLOGY Monocytes # 0.4 K/CMM 0.0 - 0.8 11/30 [facility] [place] HEMATOLOGY Basophils 0.5 % 0.0 - 1.0 11/30 [place] HEMATOLOGY Basophils # 0.0 K/CMM 0.0 - 0.2 11/30 [facility] [place] /2013 [place] HEMATOLOGY Eosinophils 0.7 % 0.0 - 4.0 11/30 [place] HEMATOLOGY Lymphocytes 1.8 K/CMM 1.0 - 5.5 11/30 [facility] [place] # /2013 [place] HEMATOLOGY Segs 67.7 % 45.0 - 11/30 [place] 75.0 /2013 [facility] HEMATOLOGY Monocytes 5.7 % 2.0 - 12.0 11/30 [place] [facility] HEMATOLOGY Lymphocytes 25.4 % 20.0 - 11/30 [place] 40.0 /2013 [facility] IMMUNOLOGY [facility] HIV 4th Negative Negative 11/30 [place] GEN [facility] (11/30/13 12:35 PM) Gallbladder Gallbladder Gallbladder HIDA scan with ejection fraction. - [place] scan HIDA w scan HIDA w - [facility] meds NM meds NM HISTORY: Abdominal pain. Read by: Rico Reyes MD Dictated Date/time: 11/30/13 16:23 Electronically Signed by: Rico Reyes MD 11/30/13 16:28 FINAL REPORT Following the intravenous administration of 5.3 mCi of technetium 99 M Choletec, scans of the right upper quadrant in the anterior projection were obtained beginning 5 minutes post injection of isotope and extending through 60 minutes. IMPRESSION: 1. Uniform distribution of activity throughout the liver with no evidence of hepatomegaly or space occupying disease. 2. Prompt excretion of tracer into the intrahepatic and extrahepatic biliary system with uptake of activity in proximal small bowel by 30 minutes. 3. Gallbladder uptake identified beginning 5 minutes post injection of isotope and extending through 60 minutes. CONCLUSION: 1. Radionuclide findings compatible with a patent cystic duct and no evidence of biliary obstruction. Following the intravenous infusion of 2 cc of Kinevac, gallbladder ejection fraction calculated to be 28.7% which is below the lower range of normal and could reflect biliary dyskinesia. The patient complained of abdominal pain with Kinevac infusion which was described as similar to the pain the patient was experiencing prior to the exam. Serology HELICOB IGG 0.6 U/mL 11/07 [facility] Serology HELICOB IGG 0.6 U/mL 11/07 [facility] Copy Director PAP SMEAR Normal 03/30 [facility] Copy Director PAP SMEAR Normal 03/30 [facility] Copy Director PAP SMEAR Normal 03/30 [facility] Copy Director PAP SMEAR Normal 03/30 [facility] Pathology PAP SMEAR Normal 03/30 [facility] Pathology PAP SMEAR Normal 03/30 [facility] Vital Signs Vital Sign Value Date Comments Source BMI Calculated 36.57 10/06/2017 [facility] Weight 93.636 10/06/2017 [facility] Height 160.02 cm 10/06/2017 [facility] Heart Rate 82 10/06/2017 [facility] Temperature Oral (F) 98.4 F 10/06/2017 [facility] Systolic (mm Hg) 115 10/06/2017 [facility] Diastolic (mm Hg) 75 10/06/2017 [facility] Temperature Oral (F) 98.4 F 07/02/2017 [facility] BMI Calculated 37.63 07/02/2017 [facility] Height 160.02 cm 07/02/2017 [facility] Systolic (mm Hg) 129 07/02/2017 [facility] Diastolic (mm Hg) 68 07/02/2017 [facility] Weight 96.364 07/02/2017 [facility] Systolic (mm Hg) 140 06/09/2017 [facility] Diastolic (mm Hg) 84 06/09/2017 [facility] Height 160.02 cm 06/09/2017 [facility] Weight 94.602 06/09/2017 [facility] BMI Calculated 36.94 06/09/2017 [facility] Heart Rate 79 06/09/2017 [facility] Temperature Oral (F) 98.3 F 06/09/2017 [facility] BMI Calculated 36.92 03/31/2017 [facility] Weight 94.545 03/31/2017 [facility] Height 160.02 cm 03/31/2017 [facility] Temperature Oral (F) 99.0 F 03/31/2017 [facility] Systolic (mm Hg) 127 03/31/2017 [facility] Diastolic (mm Hg) 84 03/31/2017 [facility] Weight 95.909 02/23/2017 [facility] BMI Calculated 37.46 02/23/2017 [facility] Height 160.02 cm 02/23/2017 [facility] Systolic (mm Hg) 126 02/23/2017 [facility] Diastolic (mm Hg) 82 02/23/2017 [facility] Temperature Oral (F) 97.9 F 02/23/2017 [facility] Systolic (mm Hg) 143 03/12/2016 [facility] Diastolic (mm Hg) 94 03/12/2016 [facility] Heart Rate 72 03/12/2016 [facility] Weight 90.909 03/12/2016 [facility] BMI Calculated 35.5 03/12/2016 [facility] Height 160.02 cm 03/12/2016 [facility] Respitory Rate 16 03/12/2016 [facility] Respitory Rate 18 09/16/2015 [place] Heart Rate 78 09/16/2015 [place] Systolic (mm Hg) 133 09/16/2015 [place] Diastolic (mm Hg) 75 09/16/2015 [place] BMI Calculated 33.51 09/16/2015 [place] Weight 85.818 09/16/2015 [place] Temperature Oral (F) 98.0 F 09/16/2015 [place] Heart Rate 81 09/16/2015 [place] Respitory Rate 18 09/16/2015 [place] Height 160.02 cm 09/16/2015 [place] Systolic (mm Hg) 155 09/16/2015 [place] Diastolic (mm Hg) 95 09/16/2015 [place] BMI Calculated 31.86 03/14/2015 [facility] Weight 81.591 03/14/2015 [facility] Height 160.02 cm 03/14/2015 [facility] Heart Rate 81 03/14/2015 [facility] Temperature Oral (F) 97.9 F 03/14/2015 [facility] Systolic (mm Hg) 148 03/14/2015 [facility] Diastolic (mm Hg) 88 03/14/2015 [facility] Height 63 08/23/2014 [facility] Temperature Oral (F) 97.9 F 08/23/2014 [facility] Systolic (mm Hg) 152 08/23/2014 [facility] Diastolic (mm Hg) 82 08/23/2014 [facility] Heart Rate 87 08/23/2014 [facility] Weight 209 08/23/2014 [facility] Height 63 08/22/2014 [facility] Weight 209 08/22/2014 [facility] Temperature Oral (F) 96.2 F 08/22/2014 [facility] Systolic (mm Hg) 134 08/22/2014 [facility] Diastolic (mm Hg) 65 08/22/2014 [facility] Heart Rate 71 08/22/2014 [facility] Height 63 08/08/2014 [facility] Weight 209 08/08/2014 [facility] Temperature Oral (F) 97.5 F 08/08/2014 [facility] Systolic (mm Hg) 154 08/08/2014 [facility] Diastolic (mm Hg) 70 08/08/2014 [facility] Heart Rate 51 08/08/2014 [facility] Weight 203 04/06/2014 [facility] Temperature Oral (F) 96.9 F 04/06/2014 [facility] Systolic (mm Hg) 156 04/06/2014 [facility] Diastolic (mm Hg) 72 04/06/2014 [facility] Heart Rate 73 04/06/2014 [facility] Height 63 02/13/2014 [facility] Weight 208 02/13/2014 [facility] Temperature Oral (F) 98.4 F 02/13/2014 [facility] Heart Rate 68 02/13/2014 [facility] Systolic (mm Hg) 143 02/13/2014 [facility] Diastolic (mm Hg) 104 02/13/2014 [facility] Systolic (mm Hg) 139 11/30/2013 [place] Diastolic (mm Hg) 91 11/30/2013 [place] Respitory Rate 16 11/30/2013 [place] Heart Rate 89 11/30/2013 [place] Systolic (mm Hg) 147 11/30/2013 [place] Diastolic (mm Hg) 86 11/30/2013 [place] Heart Rate 88 11/30/2013 [place] Respitory Rate 16 11/30/2013 [place] Weight 96.818 11/30/2013 [place] Height 160.02 cm 11/30/2013 [place] BMI Calculated 37.81 11/30/2013 [place] Temperature Oral (F) 98.2 F 11/30/2013 [place] Respitory Rate 18 11/30/2013 [place] Heart Rate 92 11/30/2013 [place] Diastolic (mm Hg) 92 11/30/2013 [place] Systolic (mm Hg) 152 11/30/2013 [place] Height 63 11/21/2013 [facility] Weight 214 11/21/2013 [facility] Systolic (mm Hg) 142 11/21/2013 [facility] Diastolic (mm Hg) 67 11/21/2013 [facility] Heart Rate 83 11/21/2013 [facility] Weight 212 11/07/2013 [facility] Temperature Oral (F) 98.2 F 11/07/2013 [facility] Systolic (mm Hg) 138 11/07/2013 [facility] Diastolic (mm Hg) 86 11/07/2013 [facility] Heart Rate 87 11/07/2013 [facility] Weight 218 10/25/2013 [facility] Temperature Oral (F) 97.9 F 10/25/2013 [facility] Respitory Rate 20 10/25/2013 [facility] Heart Rate 80 10/25/2013 [facility] Systolic (mm Hg) 137 10/25/2013 [facility] Diastolic (mm Hg) 69 10/25/2013 [facility] Weight 215 10/05/2013 [facility] Temperature Oral (F) 97.7 F 10/05/2013 [facility] Heart Rate 91 10/05/2013 [facility] Systolic (mm Hg) 141 10/05/2013 [facility] Diastolic (mm Hg) 84 10/05/2013 [facility] Temperature Oral (F) 98.3 F 09/01/2013 [facility] Weight 220 09/01/2013 [facility] Systolic (mm Hg) 136 09/01/2013 [facility] Diastolic (mm Hg) 78 09/01/2013 [facility] Heart Rate 88 09/01/2013 [facility] Weight 197 12/07/2012 [facility] Temperature Oral (F) 97.4 F 12/07/2012 [facility] Systolic (mm Hg) 141 12/07/2012 [facility] Diastolic (mm Hg) 78 12/07/2012 [facility] Heart Rate 84 12/07/2012 [facility] Systolic (mm Hg) 133 12/03/2012 [facility] Diastolic (mm Hg) 89 12/03/2012 [facility] Heart Rate 90 12/03/2012 [facility] Temperature Oral (F) 98.0 F 12/03/2012 [facility] Weight 199 12/03/2012 [facility] Weight 196 07/29/2012 [facility] Temperature Oral (F) 97.2 F 07/29/2012 [facility] Systolic (mm Hg) 131 07/29/2012 [facility] Diastolic (mm Hg) 62 07/29/2012 [facility] Heart Rate 65 07/29/2012 [facility] Weight 191 04/30/2012 [facility] Systolic (mm Hg) 119 04/30/2012 [facility] Diastolic (mm Hg) 75 04/30/2012 [facility] Heart Rate 63 04/30/2012 [facility] Temperature Oral (F) 96.6 F 04/30/2012 [facility] Height 63 12/08/2011 [facility] Weight 191 12/08/2011 [facility] Temperature Oral (F) 97.5 F 12/08/2011 [facility] Systolic (mm Hg) 124 12/08/2011 [facility] Diastolic (mm Hg) 61 12/08/2011 [facility] Heart Rate 60 12/08/2011 [facility] Encounters Location Location Encounter Encounter Reason Attending ADM DC Status Source Details Type Number For Provider Date Date Visit [facility] Lab Report [id number] [facility] 12/03 12/03 [place] 7590 Sustache /2012 Medical [facility]an [facility] [place] [id number] [facility] 12/07 12/07 [place] Visit 7040 Sustache /2012 Medical Duran Garcia [facility] [id number] [facility] 09/01 09/01 [place] Visit 7020 Sustache /2013 MD [facility]ha [facility] Jr[facility] [place] [id number] [facility] 10/05 10/05 [place] Visit 1090 Sustache /2013 MD Group Radha Mohamud Jr. [facility] [id number] [facility] 10/25 10/25 [place] Visit 8880 Sustache /2013 MD Radha Mohamud Jr. [facility] Lab Report [id number] [facility] 11/07 11/07 [place] 2260 Sustache /2013 MD Radha [facility] Jr[facility] [place] [id number] [facility] 11/07 11/07 [place] Visit 2060 Sustache /2013 MD [facility]ha [facility] Jr[facility] [place] [id number] [facility] 11/21 11/21 [place] Visit 8980 Sustache /2013 MD Radha Mohamud Jr. [facility] [place] [id number] Desean Mosquera 11/30 11/30 [place] [facility] [id number] [facility] 12/01 12/01 [place] 2960 Sustache /2013 MD Group Radha Mohamud Jr. [facility] [id number] [facility] 02/13 02/13 [place] Visit 9710 Sustache /2013 MD Radha [facility]ud Jr[facility] [place] [id number] [facility] 04/06 04/06 [place] Visit 8760 Sustache /2014 MD Radha [facility]ud Jr[facility] [place] [id number] Shiela 08/08 08/08 [place] Visit 9590 Sustache /2014 MD Group Radha [facility]ud Jr[facility] [id number] [facility] 08/22 08/22 [place] Visit 7820 Sustache /2014 MD Group Radha [facility]amud Jr[facility] [place] [id number] [facility] 08/23 08/23 [place] 3890 Sustache /2014 Medical MD Group Radah Garzon Jr. [facility] [id number] [facility] 08/23 08/23 [place] Visit 3800 Sustache /2014 MD Radha Mohamud Jr. [facility] [place] Outpatient [id number] [facility] 01/30 Active [facility] SUSTACHE [facility] Outpt Diag [id number] Sb 02/23 02/24 [facility] Outpatient Services Ann Marie /[address] [facility] Outpatient [id number] Epifanio 03/14 03/15 [facility] [place] /2014 [facility] Memorial Bedded [id number] Epifanio 04/30 04/30 [facility] Outpatient [place] /2015 [facility] Outpatient [id number] [facility] 05/17 Active Memorial SUSTACHE /2015 [place] Outpatient [id number] [facility] 07/09 Active [facility] SUSTACHE [place] Outpatient [id number] NADINE GENARO 08/22 Active Memorial /2015 [place] Outpatient [id number] SHIELA 09/10 Active [facility] SUSTACHE /2015 [place] [facility] [place] [id number] Michelle 09/15 09/16 [place] Emergency Deena /2015 [facility] Outpatient [id number] [facility] 10/17 Active [facility] SUSTACHE /2015 [place] Outpatient [id number] [facility] 11/18 Active Memorial SUSTACHE [place] Outpatient [id number] [facility] 01/20 Active [facility] SUST[facility]HE [place] Outpatient [id number] [facility] 02/12 Active [facility] [id number] Epifanio 03/12 03/13 [facility] [place] [facility] [id number] Epifanio 03/25 03/26 [facility] Outpatient Services Penryn /2015 [facility] Outpatient [id number] SHIELA 04/17 Active [facility] SUSTACHE [place] Outpatient [id number] SHIELA 05/15 Active Memorial SUSTACHE [place] Outpatient [id number] SHIELA 06/03 Active Memorial SUSTACHE /2016 [place] Outpatient [id number] SHIELA 07/30 Active Memorial SUSTACHE [place] Outpatient [id number] SHIELA 08/29 Active Memorial SUSTACHE [place] Outpatient [id number] SHIELA 11/12 Active Memorial SUSTACHE /2016 [place] Outpatient [id number] SHIELA 12/30 Active [facility] SUSTACHE [place] Outpatient [id number] SHIELA 02/23 Active Memorial SUSTACHE [facility] Outpatient [id number] Shiela 02/23 02/24 Primary [place] /2016 [facility] Phone [id number] 03/09 03/11 Primary Message /2016 [facility] Phone [id number] 03/12 03/14 Primary Message /2016 [facility] [place] Outpatient [id number] SHIELA 03/31 Active Memorial SUSTACHE [facility] Outpatient [id number] Shiela 03/31 04/01 Primary [place] /2017 [facility] Phone [id number] 06/05 06/07 Primary Message /2017 [facility] [id number] Zeb 06/06 06/06 [place] /2017 [facility] Outpatient [id number] SHIELA 06/09 Active Memorial SUSTACHE /2017 [facility] Outpatient [id number] Shiela 06/09 06/10 Primary [place] /2017 [facility] [place] Phone [id number] 06/15 06/17 Primary Message /2017 [facility] [place] [facility] Phone [id number] 06/26 06/28 Primary Message /2017 [facility] [place] Outpatient [id number] SHIELA 06/29 Active Memorial SUSTACHE [facility] Ambulatory [id number] Shiela 06/29 06/29 Primary Pre-Reg [place] /2017 [facility] [place] Outpatient [id number] SHIELA 07/02 Active Memorial SUSTACHE [facility] Outpatient [id number] Shiela 07/02 07/03 Primary [place] /2017 [facility] [place] Phone [id number] 07/27 07/29 Primary Message /2017 [facility] [place] Phone [id number] 07/28 07/30 Primary Message /2017 [facility] [place] Outpatient [id number] [place] 10/06 Active Memorial [place] [facility] Outpatient [id number] Shiela 10/06 10/07 Primary [place]ache /2017 [facility] [place] Procedures Procedure Code Date Perfomer Comments Source Removal of [id number] 03/30/2013 Medical gallbladder Group Removal of [id number] 03/30/2013 [place] gallbladder Removal of [id number] 03/30/2013 [facility] [place] gallbladder [place] Removal of [id number] 03/30/2013 [employer] gallbladder [facility] Removal of [id number] 03/30/2013 [facility] gallbladder [place] Removal of [id number] 03/30/2013 [place] gallbladder colonoscopy 88836 03/30/2008 Normal Medical Group mammogram 22651 03/30/2008 Normal Medical Group vaginal Pap smear 92157 03/30/2008 Normal Medical results Group mammogram 37157 03/30/1999 Normal Medical Group Bilateral tubal [id number] Medical ligation Group Carpal tunnel [id number] Medical release Group Mammogram [id number] Medical Group Bilateral tubal [id number] [place] ligation Carpal tunnel [id number] [place] release Mammogram 29631625 [place] Bilateral tubal 708868553 [facility] [place] ligation [place] Carpal tunnel [id number] [facility] [place] release [place] Bilateral tubal [id number] [place] ligation [facility] Carpal tunnel [id number] [place] release [facility] Bilateral tubal [id number] [place] ligation Carpal tunnel [id number] [place] release Bilateral tubal 378578537 [facility] ligation [place] Carpal tunnel [id number] [facility] release [place]
--- OUTSIDE RECORDS SUMMARY | 2017-10-29 10:25 | XMS REPORT | Continuity of Care Document ---
:1955 Author Organization [facility] Care Team Providers Name Role Phone Silvio Babin MD, Carlos Unavailable Unavailable Insurance Providers Payer name Policy type / Coverage type Policy ID Covered libertarian ID Policy Mueller AETNA (PPO) AETNA (PPO) Encounters Encounter Performer Location Date Lab Report Carlos Anguiano Jr., MD [facility] Dec 03, 2012 [place] Allergies, Adverse Reactions, Alerts Type Substance Reaction Status Drug allergy ANTI-INFLAMMATORIES Swelling Active Drug allergy LEVAQUIN Makes back hurt Active Drug allergy BACTRIM Headache and nausea Active Problems Problem Effective Dates Problem Status ASTHMA Active HEADACHE Active HYPERCHOLESTEROLEMIA Active FAMILY HISTORY OF ASTHMA Active FH LUNG CANCER Active FH DEPRESSION Active FH DIABETES - DM Active FH HEART DISEASE Active BACK PAIN Dec 08, 2011 Active DEFICIENCY, VITAMIN D NOS Dec 08, 2011 Active HYPERGLYCEMIA Dec 08, 2011 Active HYPOTHYROIDISM Dec 08, 2011 Active INGROWN NAIL Apr 30, 2012 Active FATIGUE Apr 30, 2012 Active FLAT FOOT Apr 30, 2012 Active HAIR LOSS Apr 30, 2012 Active HEARTBURN Dec 03, 2012 Active Procedures Date Description Comments Dec 08, 2011 smoking status never smoker Mar 30, 1999 mammogram Normal Mar 30, 2008 mammogram Normal Mar 30, 2008 vaginal Pap smear results Normal Medications Medication Instructions Start Date Status ZITHROMAX Z-MADHU 250 MG TABS Take as directed Dec 08, 2011 Inactive GLUMETZA 500 MG [id number] 1 po qd Apr 13, 2012 Active NULEV 0.125 MG TBDP 1 po q 8-12 prn Dec 16, 2011 Inactive ZEGERID 40-1680 MG PACK 1 po qd Dec 03, 2012 Active ALIGN one daily Dec 03, 2012 Active Immunizations Vaccine Date Status influenza immunization (Flu Vax) has been administered Dec 08, 2011 completed Vital Signs Date Description Test Result Dec 08, 2011 height E&M - 8302-2 HEIGHT 63 in Dec 08, 2011 weight E&M - 3141-9 WEIGHT 191 lb Dec 08, 2011 temperature E&M TEMPERATURE 97.5 deg f Dec 08, 2011 blood pressure, systolic - 8480-6 BP SYSTOLIC 124 mm Hg Dec 08, 2011 blood pressure, diastolic - 8462-4 BP DIASTOLIC 61 mm Hg Dec 08, 2011 pulse rate E&M - 8867-4 PULSE RATE 60 /min Apr 30, 2012 weight E&M - 3141-9 WEIGHT 191 lb Apr 30, 2012 blood pressure, systolic - 8480-6 BP SYSTOLIC 119 mm Hg Apr 30, 2012 blood pressure, diastolic - 8462-4 BP DIASTOLIC 75 mm Hg Apr 30, 2012 pulse rate E&M - 8867-4 PULSE RATE 63 /min Apr 30, 2012 temperature E&M TEMPERATURE 96.6 deg f July 29, 2012 weight E&M - 3141-9 WEIGHT 196 lb July 29, 2012 temperature E&M TEMPERATURE 97.2 deg f July 29, 2012 blood pressure, systolic - 8480-6 BP SYSTOLIC 131 mm Hg July 29, 2012 blood pressure, diastolic - 8462-4 BP DIASTOLIC 62 mm Hg July 29, 2012 pulse rate E&M - 8867-4 PULSE RATE 65 /min Dec 03, 2012 blood pressure, systolic - 8480-6 BP SYSTOLIC 133 mm Hg Dec 03, 2012 blood pressure, diastolic - 8462-4 BP DIASTOLIC 89 mm Hg Dec 03, 2012 pulse rate E&M - 8867-4 PULSE RATE 90 /min Dec 03, 2012 temperature E&M TEMPERATURE 98.0 deg f Dec 03, 2012 weight E&M - 3141-9 WEIGHT 199 lb Results Date Description Test Name Value Reference Interpretation Status Mar 30, 2008 vaginal Pap smear PAP SMEAR Normal null results
--- OUTSIDE RECORDS SUMMARY | 2017-10-29 10:25 | XMS REPORT | Continuity of Care Document ---
:1955 Author Organization [facility] Care Team Providers Name Role Phone Silvio Babin MD, Carlos Unavailable Unavailable Insurance Providers Payer name Policy type / Coverage type Policy ID Covered green party ID Policy Mueller AETNA (PPO) AETNA (PPO) Encounters Encounter Performer Location Date Office Visit Carlos Anguiano Jr., MD [facility] Sep [place] Allergies, Adverse Reactions, Alerts Type Substance Reaction Status Drug allergy ANTI-INFLAMMATORIES Swelling Active Drug allergy LEVAQUIN Makes back hurt Active Drug allergy BACTRIM Headache and nausea Active Problems Problem Effective Dates Problem Status ASTHMA Active HEADACHE Inactive HYPERCHOLESTEROLEMIA Active FAMILY HISTORY OF ASTHMA Active FH LUNG CANCER Active FH DEPRESSION Active FH DIABETES - DM Active FH HEART DISEASE Active BACK PAIN Dec 08, 2011 Active DEFICIENCY, VITAMIN D NOS Dec 08, 2011 Active HYPERGLYCEMIA Dec 08, 2011 Inactive HYPOTHYROIDISM Dec 08, 2011 Active INGROWN NAIL Apr 30, 2012 Inactive FATIGUE Apr 30, 2012 Active FLAT FOOT Apr 30, 2012 Active HAIR LOSS Apr 30, 2012 Active HEARTBURN Dec 03, 2012 Inactive DRY SOCKET Dec 07, 2012 Inactive LONG-TERM (CURRENT) USE OF OTHER MEDICATIONS May 16, 2013 Active SACROILIITIS Sep 01, 2013 Active OBESITY Sep 01, 2013 Active ACID REFLUX DISEASE Oct 05, 2013 Active MUSCLE STRAIN Oct 05, 2013 Active NAUSEA Oct 05, 2013 Active Procedures Date Description Comments Dec 08, 2011 smoking status never smoker Mar 30, 1999 mammogram Normal Mar 30, 2008 mammogram Normal Mar 30, 2008 vaginal Pap smear results Normal Oct 05, 2013 smoking status Never smoker Medications Medication Instructions Start Date Status ZITHROMAX Z-MADHU 250 MG TABS Take as directed Dec 08, 2011 Inactive NULEV 0.125 MG TBDP 1 po q 8-12 prn Dec 16, 2011 Inactive CARAFATE 1 GM/10ML SUSP 10 mL QID Dec 07, 2012 Inactive ZEGERID 40-1680 MG PACK 1 po qd Dec 03, 2012 Inactive PHENTERMINE HCL 37.5 MG TABS 1 tablet in the morning Sep 01, 2013 Inactive ALIGN one daily Dec 03, 2012 Inactive OMEPRAZOLE 20 MG CPDR Take one capsule by mouth daily Oct 05, 2013 Active MELOXICAM 7.5 MG TABS 1 tablet daily as needed for pain Oct 05, 2013 Active PROMETHAZINE HCL 12.5 MG TABS 1-2 tablets every 6 hours as Oct 05, 2013 Active needed for nausea Immunizations Vaccine Date Status influenza immunization (Flu Vax) has been administered Dec 08, 2011 completed Vital Signs Date Description Test Result Dec 08, 2011 height E&M HEIGHT 63 in Dec 08, 2011 weight E&M WEIGHT 191 lb Dec 08, 2011 temperature E&M TEMPERATURE 97.5 deg f Dec 08, 2011 blood pressure, systolic BP SYSTOLIC 124 mm Hg Dec 08, 2011 blood pressure, diastolic BP DIASTOLIC 61 mm Hg Dec 08, 2011 pulse rate E&M PULSE RATE 60 /min Apr 30, 2012 weight E&M WEIGHT 191 lb Apr 30, 2012 blood pressure, systolic BP SYSTOLIC 119 mm Hg Apr 30, 2012 blood pressure, diastolic BP DIASTOLIC 75 mm Hg Apr 30, 2012 pulse rate E&M PULSE RATE 63 /min Apr 30, 2012 temperature E&M TEMPERATURE 96.6 deg f July 29, 2012 weight E&M WEIGHT 196 lb July 29, 2012 temperature E&M TEMPERATURE 97.2 deg f July 29, 2012 blood pressure, systolic BP SYSTOLIC 131 mm Hg July 29, 2012 blood pressure, diastolic BP DIASTOLIC 62 mm Hg July 29, 2012 pulse rate E&M PULSE RATE 65 /min Dec 03, 2012 blood pressure, systolic BP SYSTOLIC 133 mm Hg Dec 03, 2012 blood pressure, diastolic BP DIASTOLIC 89 mm Hg Dec 03, 2012 pulse rate E&M PULSE RATE 90 /min Dec 03, 2012 temperature E&M TEMPERATURE 98.0 deg f Dec 03, 2012 weight E&M WEIGHT 199 lb Dec 07, 2012 weight E&M WEIGHT 197 lb Dec 07, 2012 temperature E&M TEMPERATURE 97.4 deg f Dec 07, 2012 blood pressure, systolic BP SYSTOLIC 141 mm Hg Dec 07, 2012 blood pressure, diastolic BP DIASTOLIC 78 mm Hg Dec 07, 2012 pulse rate E&M PULSE RATE 84 /min Sep 01, 2013 temperature E&M TEMPERATURE 98.3 deg f Sep 01, 2013 weight E&M WEIGHT 220 lb Sep 01, 2013 blood pressure, systolic BP SYSTOLIC 136 mm Hg Sep 01, 2013 blood pressure, diastolic BP DIASTOLIC 78 mm Hg Sep 01, 2013 pulse rate E&M PULSE RATE 88 /min Oct 05, 2013 weight E&M WEIGHT 215 lb Oct 05, 2013 temperature E&M TEMPERATURE 97.7 deg f Oct 05, 2013 pulse rate E&M PULSE RATE 91 /min Oct 05, 2013 blood pressure, systolic BP SYSTOLIC 141 mm Hg Oct 05, 2013 blood pressure, diastolic BP DIASTOLIC 84 mm Hg Results Date Description Test Name Value Reference Interpretation Status Mar 30, 2008 vaginal Pap smear PAP SMEAR Normal null results
--- OUTSIDE RECORDS SUMMARY | 2017-10-29 10:25 | XMS REPORT | Continuity of Care Document ---
:1955 Author Organization [facility] Care Team Providers Name Role Phone Silvio Babin MD, Carlos Unavailable Unavailable Insurance Providers Payer name Policy type / Coverage type Policy ID Covered green party ID Policy Mueller AETNA (PPO) AETNA (PPO) Encounters Encounter Performer Location Date Office Visit Carlos Anguiano Jr., MD [facility] Sep [place] Allergies, Adverse Reactions, Alerts Type Substance Reaction [...] ACID REFLUX DISEASE Oct 05, 2013 Active ROTATOR CUFF (CAPSULE) SPRAIN Oct 05, 2013 Active NAUSEA Oct 05, 2013 Inactive Procedures Date Description Comments Dec 08, 2011 smoking status never smoker Mar 30, 1999 mammogram Normal Mar 30, 2008 mammogram Normal Mar 30, 2008 vaginal Pap smear results Normal Oct 05, 2013 smoking status Never smoker Oct 25, 2013 smoking status Never smoker Medications Medication [...] pressure, diastolic BP DIASTOLIC 84 mm Hg Oct 25, 2013 weight E&M WEIGHT 218 lb Oct 25, 2013 temperature E&M TEMPERATURE 97.9 deg f Oct 25, 2013 respiratory rate E&M RESP RATE 20 /min Oct 25, 2013 pulse rate E&M PULSE RATE 80 /min Oct 25, 2013 blood pressure, systolic BP SYSTOLIC 137 mm Hg Oct 25, 2013 blood pressure, diastolic BP DIASTOLIC 69 mm Hg Results Date Description Test Name Value Reference Interpretation Status Mar 30, 2008 vaginal Pap smear PAP SMEAR Normal null results
--- OUTSIDE RECORDS SUMMARY | 2017-10-29 10:25 | XMS REPORT | Continuity of Care Document ---
:1955 Author Organization [facility] Care Team Providers Name Role Phone Silvio Babin MD, Carlos Unavailable Unavailable Insurance Providers Payer name Policy type / Coverage type Policy ID Covered green party ID Policy Mueller AETNA (PPO) AETNA (PPO) Encounters Encounter Performer Location Date Office Visit Carlos Anguiano Jr., MD [facility] Aug [place] Allergies, Adverse Reactions, Alerts Type Substance Reaction [...] 2013 Active OBESITY Sep 01, 2013 Active Procedures Date Description Comments Dec 08, 2011 smoking status never smoker Mar 30, 1999 mammogram Normal Mar 30, 2008 mammogram Normal Mar 30, 2008 vaginal Pap smear results Normal Medications Medication Instructions Start Date Status ZITHROMAX Z-MADHU 250 MG TABS Take as directed Dec 08, 2011 Inactive NULEV 0.125 MG TBDP 1 po q 8-12 prn Dec 16, 2011 Inactive ALIGN one daily Dec 03, 2012 Active PHENTERMINE HCL 37.5 MG TABS 1 tablet in the morning Sep 01, 2013 Active CARAFATE 1 GM/10ML SUSP 10 mL QID Dec 07, 2012 Inactive ZEGERID 40-1680 MG PACK 1 po qd Dec 03, 2012 Inactive Immunizations Vaccine Date Status influenza immunization (Flu [...] weight E&M - 3141-9 WEIGHT 199 lb Dec 07, 2012 weight E&M - 3141-9 WEIGHT 197 lb Dec 07, 2012 temperature E&M TEMPERATURE 97.4 deg f Dec 07, 2012 blood pressure, systolic - 8480-6 BP SYSTOLIC 141 mm Hg Dec 07, 2012 blood pressure, diastolic - 8462-4 BP DIASTOLIC 78 mm Hg Dec 07, 2012 pulse rate E&M - 8867-4 PULSE RATE 84 /min Sep 01, 2013 temperature E&M TEMPERATURE 98.3 deg f Sep 01, 2013 weight E&M - 3141-9 WEIGHT 220 lb Sep 01, 2013 blood pressure, systolic - 8480-6 BP SYSTOLIC 136 mm Hg Sep 01, 2013 blood pressure, diastolic - 8462-4 BP DIASTOLIC 78 mm Hg Sep 01, 2013 pulse rate E&M - 8867-4 PULSE RATE 88 /min Results Date Description Test Name Value Reference Interpretation Status Mar 30, 2008 vaginal Pap smear PAP SMEAR Normal null results
--- OUTSIDE RECORDS SUMMARY | 2017-10-29 10:25 | XMS REPORT | Continuity of Care Document ---
:1955 Author Organization [facility] Care Team Providers Name Role Phone Silvio Babin MD, Carlos Unavailable Unavailable Insurance Providers Payer name Policy type / Coverage type Policy ID Covered republican ID Policy Mueller AETNA (PPO) AETNA (PPO) Encounters Encounter Performer Location Date Office Visit Carlos Anguiano Jr., MD [facility] Nov [place] Allergies, Adverse Reactions, Alerts Type Substance Reaction [...] 2012 Active HEARTBURN Dec 03, 2012 Active DRY SOCKET Dec 07, 2012 Active Procedures Date Description Comments Dec 08, 2011 smoking status never smoker Mar 30, 1999 mammogram Normal Mar 30, 2008 mammogram Normal Mar 30, 2008 vaginal Pap smear results Normal Medications Medication Instructions Start Date Status ZITHROMAX Z-MADHU 250 MG TABS Take as directed Dec 08, 2011 Inactive GLUMETZA 500 MG [id number] 1 po qd Apr 13, 2012 Active NULEV 0.125 MG TBDP 1 po q 8-12 prn Dec 16, 2011 Inactive ZEGERID 40-1680 MG PACK 1 po qd Dec 03, 2012 Active ALIGN one daily Dec 03, 2012 Active CARAFATE 1 GM/10ML SUSP 10 mL QID Dec 07, 2012 Active Immunizations Vaccine Date Status influenza [...] E&M - 8867-4 PULSE RATE 84 /min Results Date Description Test Name Value Reference Interpretation Status Mar 30, 2008 vaginal Pap smear PAP SMEAR Normal null results
--- OUTSIDE RECORDS SUMMARY | 2017-10-29 10:26 | XMS REPORT | Continuity of Care Document ---
:1955 Author Organization [facility] Care Team Providers Name Role Phone Silvio Babin MD, Carlos Unavailable Unavailable Insurance Providers Payer name Policy type / Coverage type Policy ID Covered constitution party ID Policy Mueller AETNA (PPO) AETNA (PPO) Encounters Encounter Performer Location Date Office Visit Carlos Anguiano Jr., MD [facility] Oct [place] Allergies, Adverse Reactions, Alerts Type Substance Reaction [...] 2013 Active NAUSEA Oct 05, 2013 Inactive ABDOMINAL PAIN, RIGHT UPPER QUADRANT Nov 07, 2013 Active Procedures Date Description Comments Dec 08, 2011 smoking status never smoker Mar 30, 1999 mammogram Normal Mar 30, 2008 mammogram Normal Mar 30, 2008 vaginal Pap smear results Normal Oct 05, 2013 smoking status Never smoker Oct 25, 2013 smoking status Never smoker Mar 30, 2008 colonoscopy Normal Nov 21, 2013 smoking status Never smoker Medications Medication [...] capsule by mouth daily Oct 05, 2013 Inactive MELOXICAM 7.5 MG TABS 1 tablet daily as needed for pain Oct 05, 2013 Inactive PROMETHAZINE HCL 12.5 MG TABS 1-2 tablets every 6 hours as Oct 05, 2013 Inactive needed for nausea SUCRALFATE 1 GM/10ML SUSP 10 mL qid x 2 weeks Nov 07, 2013 Active PROMETHAZINE HCL 12.5 MG TABS 1 po BID prn Nov 07, 2013 Active Immunizations Vaccine Date Status influenza immunization [...] pressure, diastolic BP DIASTOLIC 69 mm Hg Nov 07, 2013 weight E&M WEIGHT 212 lb Nov 07, 2013 temperature E&M TEMPERATURE 98.2 deg f Nov 07, 2013 blood pressure, systolic BP SYSTOLIC 138 mm Hg Nov 07, 2013 blood pressure, diastolic BP DIASTOLIC 86 mm Hg Nov 07, 2013 pulse rate E&M PULSE RATE 87 /min Nov 21, 2013 height E&M HEIGHT 63 in Nov 21, 2013 weight E&M WEIGHT 214 lb Nov 21, 2013 blood pressure, systolic BP SYSTOLIC 142 mm Hg Nov 21, 2013 blood pressure, diastolic BP DIASTOLIC 67 mm Hg Nov 21, 2013 pulse rate E&M PULSE RATE 83 /min Results Date Description Test Name Value Reference Interpretation Status Nov 07, Helicobacter HELICOB IGG 0.6 U/mL 2013 pylori antibody, null IgG, serum Mar 30, vaginal Pap smear PAP SMEAR Normal null 2009 results
--- OUTSIDE RECORDS SUMMARY | 2017-10-29 10:26 | XMS REPORT | Continuity of Care Document ---
:1955 Author Organization [facility] Care Team Providers Name Role Phone Silvio Babin MD, Carlos Unavailable Unavailable Insurance Providers Payer name Policy type / Coverage type Policy ID Covered constitution party ID Policy Mueller AETNA (PPO) AETNA (PPO) Encounters Encounter Performer Location Date Office Visit Carlos Anguiano Jr., MD [facility] Jan [place] Allergies, Adverse Reactions, Alerts Type Substance Reaction [...] RIGHT UPPER QUADRANT Nov 07, 2013 Active BACK PAIN, LUMBAR, WITH RADICULOPATHY Feb 13, 2014 Active CERVICAL RADICULOPATHY Feb 13, 2014 Active HIP PAIN, BILATERAL Feb 13, 2014 Active BREAST PAIN, BILATERAL Feb 13, 2014 Active Procedures Date Description Comments Dec 08, 2011 smoking status never smoker Mar 30, 1999 mammogram Normal Mar 30, 2008 mammogram Normal Mar 30, 2008 vaginal Pap smear results Normal Oct 05, 2013 smoking status Never smoker Oct 25, 2013 smoking status Never smoker Mar 30, 2008 colonoscopy Normal Nov 21, 2013 smoking status Never smoker Feb 13, 2014 smoking status Never smoker Medications Medication Instructions [...] po BID prn Nov 07, 2013 Active TRAMADOL HCL 50 MG TABS 1 tablet every 12 hours as needed Feb 13, 2014 Active for pain GABAPENTIN 100 MG CAPS 1 capsule three times a day Feb 13, 2014 Active Immunizations Vaccine Date Status influenza immunization [...] E&M - 8867-4 PULSE RATE 88 /min Oct 05, 2013 weight E&M - 3141-9 WEIGHT 215 lb Oct 05, 2013 temperature E&M TEMPERATURE 97.7 deg f Oct 05, 2013 pulse rate E&M - 8867-4 PULSE RATE 91 /min Oct 05, 2013 blood pressure, systolic - 8480-6 BP SYSTOLIC 141 mm Hg Oct 05, 2013 blood pressure, diastolic - 8462-4 BP DIASTOLIC 84 mm Hg Oct 25, 2013 weight E&M - 3141-9 WEIGHT 218 lb Oct 25, 2013 temperature E&M TEMPERATURE 97.9 deg f Oct 25, 2013 respiratory rate E&M - 9279-1 RESP RATE 20 /min Oct 25, 2013 pulse rate E&M - 8867-4 PULSE RATE 80 /min Oct 25, 2013 blood pressure, systolic - 8480-6 BP SYSTOLIC 137 mm Hg Oct 25, 2013 blood pressure, diastolic - 8462-4 BP DIASTOLIC 69 mm Hg Nov 07, 2013 weight E&M - 3141-9 WEIGHT 212 lb Nov 07, 2013 temperature E&M TEMPERATURE 98.2 deg f Nov 07, 2013 blood pressure, systolic - 8480-6 BP SYSTOLIC 138 mm Hg Nov 07, 2013 blood pressure, diastolic - 8462-4 BP DIASTOLIC 86 mm Hg Nov 07, 2013 pulse rate E&M - 8867-4 PULSE RATE 87 /min Nov 21, 2013 height E&M - 8302-2 HEIGHT 63 in Nov 21, 2013 weight E&M - 3141-9 WEIGHT 214 lb Nov 21, 2013 blood pressure, systolic - 8480-6 BP SYSTOLIC 142 mm Hg Nov 21, 2013 blood pressure, diastolic - 8462-4 BP DIASTOLIC 67 mm Hg Nov 21, 2013 pulse rate E&M - 8867-4 PULSE RATE 83 /min Feb 13, 2014 height E&M - 8302-2 HEIGHT 63 in Feb 13, 2014 weight E&M - 3141-9 WEIGHT 208 lb Feb 13, 2014 temperature E&M TEMPERATURE 98.4 deg f Feb 13, 2014 pulse rate E&M - 8867-4 PULSE RATE 68 /min Feb 13, 2014 blood pressure, systolic - 8480-6 BP SYSTOLIC 143 mm Hg Feb 13, 2014 blood pressure, diastolic - 8462-4 BP DIASTOLIC 104 mm Hg Feb 13, 2014 blood pressure, systolic, second observation BP SYS #2 151 mm Hg Feb 13, 2014 blood pressure, diastolic, second observation BP LILI #2 78 mm Hg Results Date Description Test Name Value Reference Interpretation Status Nov 07, Helicobacter HELICOB IGG 0.6 U/mL 2013 pylori antibody, null IgG, serum Mar 30, vaginal Pap smear PAP SMEAR Normal null 2009 results
--- OUTSIDE RECORDS SUMMARY | 2017-10-29 10:26 | XMS REPORT | Continuity of Care Document ---
:1955 Author Organization [facility] Care Team Providers Name Role Phone Silvio Babin MD, Carlos Unavailable Unavailable Insurance Providers Payer name Policy type / Coverage type Policy ID Covered democrat ID Policy Mueller AETNA (PPO) AETNA (PPO) Encounters Encounter Performer Location Date Lab Report Carlos Anguiano Jr., MD [facility] Nov 07, 2013 [place] Allergies, Adverse Reactions, Alerts Type Substance Reaction [...] NAUSEA Oct 05, 2013 Inactive ABDOMINAL PAIN, LEFT UPPER QUADRANT Nov 07, 2013 Active Procedures Date Description Comments Dec 08, 2011 smoking status never smoker Mar 30, 1999 mammogram Normal Mar 30, 2008 mammogram Normal Mar 30, 2008 vaginal Pap smear results Normal Oct 05, 2013 smoking status Never smoker Oct 25, 2013 smoking status Never smoker Mar 30, 2008 colonoscopy Normal Medications Medication Instructions Start Date Status [...] pulse rate E&M PULSE RATE 87 /min Results Date Description Test Name Value Reference Interpretation Status Nov 07, Helicobacter HELICOB IGG 0.6 U/mL 2013 pylori antibody, null IgG, serum Mar 30, vaginal Pap smear PAP SMEAR Normal null 2009 results
--- OUTSIDE RECORDS SUMMARY | 2017-10-29 10:26 | XMS REPORT | Continuity of Care Document ---
:1955 Author Organization [facility] Care Team Providers Name Role Phone Silvio Babin MD, Carlos Unavailable Unavailable Insurance Providers Payer name Policy type / Coverage type Policy ID Covered democrat ID Policy Mueller AETNA (PPO) AETNA (PPO) Encounters Encounter Performer Location Date Office Visit Carlos Anguiano Jr., MD [facility] July [place] Allergies, Adverse Reactions, Alerts Type Substance Reaction [...] 16, 2013 Active SACROILIITIS Sep 01, 2013 Inactive OBESITY Sep 01, 2013 Active ACID REFLUX DISEASE Oct 05, 2013 Active ROTATOR CUFF (CAPSULE) SPRAIN Oct 05, 2013 Active NAUSEA Oct 05, 2013 Inactive ABDOMINAL PAIN, RIGHT UPPER QUADRANT Nov 07, 2013 Inactive BACK PAIN, LUMBAR, WITH RADICULOPATHY Feb 13, 2014 Active CERVICAL RADICULOPATHY Feb 13, 2014 Active HIP PAIN, BILATERAL Feb 13, 2014 Active BREAST PAIN, BILATERAL Feb 13, 2014 Inactive HYPOGLYCEMIA, REACTIVE August 08, 2014 Active ROUTINE GENERAL MEDICAL EXAMINATION AT A HEALTH CARE August 08, 2014 Active FACILITY NUMBNESS August 08, 2014 Active PINWORMS August 08, 2014 Active Procedures Date Description Comments Dec [...] Feb 13, 2014 smoking status Never smoker Apr 06, 2014 smoking status Never smoker Medications Medication [...] TABS 1 tablet daily as needed for Oct 05, 2013 Inactive pain PROMETHAZINE HCL 12.5 MG TABS 1-2 tablets every 6 hours as Oct 05, 2013 Inactive needed for nausea PROMETHAZINE HCL 25 MG SUPP 1 SUPP MT Q 4 TO 6 HRS PRN N/V. Mar 11, 2014 Inactive TRAMADOL HCL 50 MG TABS 1 tablet every 12 hours as Feb 13, 2014 Inactive needed for pain PROMETHAZINE HCL 12.5 MG TABS 1 po BID prn Nov 07, 2013 Inactive GABAPENTIN 100 MG CAPS 1 capsule three times a day Feb 13, 2014 Inactive SUCRALFATE 1 GM/10ML SUSP 10 mL qid x 2 weeks Nov 07, 2013 Inactive CYCLOBENZAPRINE HCL 10 MG TABS 1/2-1 po TID as needed for Apr 06, 2014 Inactive spasms THYROID COMPOUND Active QSYMIA 3.75-23 MG [id number] 1 po qd August 08, 2014 Active Immunizations Vaccine Date Status influenza [...] observation BP LILI #2 78 mm Hg Apr 06, 2014 weight E&M - 3141-9 WEIGHT 203 lb Apr 06, 2014 temperature E&M TEMPERATURE 96.9 deg f Apr 06, 2014 blood pressure, systolic - 8480-6 BP SYSTOLIC 156 mm Hg Apr 06, 2014 blood pressure, diastolic - 8462-4 BP DIASTOLIC 72 mm Hg Apr 06, 2014 pulse rate E&M - 8867-4 PULSE RATE 73 /min August 08, 2014 height E&M - 8302-2 HEIGHT 63 in August 08, 2014 weight E&M - 3141-9 WEIGHT 209 lb August 08, 2014 temperature E&M TEMPERATURE 97.5 deg f August 08, 2014 blood pressure, systolic - 8480-6 BP SYSTOLIC 154 mm Hg August 08, 2014 blood pressure, diastolic - 8462-4 BP DIASTOLIC 70 mm Hg August 08, 2014 pulse rate E&M - 8867-4 PULSE RATE 51 /min Results Date Description Test Name Value Reference Interpretation Status Nov 07, Helicobacter HELICOB IGG 0.6 U/mL 2013 pylori antibody, null IgG, serum Mar 30, vaginal Pap smear PAP SMEAR Normal null 2008 results
--- OUTSIDE RECORDS SUMMARY | 2017-10-29 10:26 | XMS REPORT | Continuity of Care Document ---
:1955 Author Organization [facility] Care Team Providers Name Role Phone Silvio Babin MD, Carlos Unavailable Unavailable Insurance Providers Payer name Policy type / Coverage type Policy ID Covered alliance party ID Policy Mueller AETNA (PPO) AETNA (PPO) Encounters Encounter Performer Location Date Office Visit Carlos Anguiano Jr., MD [facility] Mar [place] Allergies, Adverse Reactions, Alerts Type Substance Reaction [...] BREAST PAIN, BILATERAL Feb 13, 2014 Inactive Procedures Date Description Comments Dec 08, [...] PROMETHAZINE HCL 25 MG SUPP 1 SUPP NC Q 4 TO 6 HRS PRN N/V. [...] TID as needed for Apr 06, 2014 Active spasms Immunizations Vaccine Date Status influenza immunization (Flu [...] E&M - 8867-4 PULSE RATE 73 /min Results Date Description Test Name Value Reference Interpretation Status Nov 07, Helicobacter HELICOB IGG 0.6 U/mL 2013 pylori antibody, null IgG, serum Mar 30, vaginal Pap smear PAP SMEAR Normal null 2009 results
--- OUTSIDE RECORDS SUMMARY | 2017-10-29 10:26 | XMS REPORT | Continuity of Care Document ---
:1955 Author Organization [facility] Care Team Providers Name Role Phone Silvio Babin MD, Carlos Unavailable Unavailable Insurance Providers Payer name Policy type / Coverage type Policy ID Covered alliance party ID Policy Mueller AETNA (PPO) AETNA (PPO) Encounters Encounter Performer Location Date Lab Report Carlos Anguiano Jr., MD [facility] - Nov [place] Allergies, Adverse Reactions, Alerts Type Substance Reaction [...]
--- OUTSIDE RECORDS SUMMARY | 2017-10-29 10:26 | XMS REPORT | Continuity of Care Document ---
:1955 Author Organization [facility] Care Team Providers Name Role Phone Silvio Babin MD, Carlos Unavailable Unavailable Insurance Providers Payer name Policy type / Coverage type Policy ID Covered constitution party ID Policy Mueller AETNA (PPO) AETNA (PPO) Encounters Encounter Performer Location Date Office Visit Carlos Anguiano Jr., MD [facility] Oct [place] Allergies, Adverse Reactions, Alerts Type Substance Reaction [...]
--- OUTSIDE RECORDS SUMMARY | 2017-10-29 10:27 | XMS REPORT | Continuity of Care Document ---
:1955 Author Organization [facility] Care Team Providers Name Role Phone Silvio Babin MD, Carlos Unavailable Unavailable Insurance Providers Payer name Policy type / Coverage type Policy ID Covered republican ID Policy Mueller AETNA (PPO) AETNA (PPO) Encounters Encounter Performer Location Date Lab Report Carlos Anguiano Jr., MD [facility] August 23, 2014 [place] Allergies, Adverse Reactions, Alerts Type Substance Reaction [...] 2014 Active PINWORMS August 08, 2014 Active MYALGIA August 22, 2014 Active PAIN IN JOINT, MULTIPLE SITES August 22, 2014 Active GASTRITIS August 22, 2014 Active NAUSEA August 22, 2014 Active VITAMIN D DEFICIENCY August 23, 2014 Active DIARRHEA August 23, 2014 Active MAMMOGRAM YEARLY SCREENING August 23, 2014 Active Procedures Date Description Comments Dec [...] MG CPDR Take one capsule by mouth Oct 05, 2013 Inactive daily MELOXICAM 7.5 MG TABS 1 tablet daily as needed for Oct 05, 2013 Inactive pain PROMETHAZINE HCL 12.5 MG TABS 1-2 tablets every 6 hours as Oct 05, 2013 Inactive needed for nausea PROMETHAZINE HCL 25 MG SUPP 1 SUPP [place] Q 4 TO 6 HRS PRN Mar 11, 2014 Inactive N/V. TRAMADOL HCL 50 MG TABS 1 tablet [...] spasms THYROID COMPOUND Active QSYMIA 3.75-23 MG [id number] 1 po qd August 08, 2014 Active OMEPRAZOLE 20 MG CPDR Take one capsule by mouth August 22, 2014 Active daily ONDANSETRON HCL 4 MG TABS 1 tablet every 8 hours as August 22, 2014 Active needed for nausea/vomiting VITAMIN D (ERGOCALCIFEROL) 70411 1 capsule weekly x 12 weeks August 23, 2014 Active UNIT CAPS Immunizations Vaccine Date Status influenza immunization (Flu [...] E&M - 8867-4 PULSE RATE 51 /min August 22, 2014 height E&M - 8302-2 HEIGHT 63 in August 22, 2014 weight E&M - 3141-9 WEIGHT 209 lb August 22, 2014 temperature E&M TEMPERATURE 96.2 deg f August 22, 2014 blood pressure, systolic - 8480-6 BP SYSTOLIC 134 mm Hg August 22, 2014 blood pressure, diastolic - 8462-4 BP DIASTOLIC 65 mm Hg August 22, 2014 pulse rate E&M - 8867-4 PULSE RATE 71 /min August 23, 2014 height E&M - 8302-2 HEIGHT 63 in August 23, 2014 temperature E&M TEMPERATURE 97.9 deg f August 23, 2014 blood pressure, systolic - 8480-6 BP SYSTOLIC 152 mm Hg August 23, 2014 blood pressure, diastolic - 8462-4 BP DIASTOLIC 82 mm Hg August 23, 2014 pulse rate E&M - 8867-4 PULSE RATE 87 /min August 23, 2014 weight E&M - 3141-9 WEIGHT 209 lb Results Date Description Test Name Value Reference Interpretation Status August 22, erythrocyte ESR 1 mm/hr 0-20 2014 sedimentation rate August 22, thyroxine, serum, T4, FREE 0.96 ng/dl 0.76-1.46 2014 free Nov 07, Helicobacter HELICOB IGG 0.6 U/mL null 2013 pylori antibody, IgG, serum August 22, antinuclear RHONDA Negative null Negative 2014 antibody August 23, Helicobacter HELICOB IGG 0.6 U/mL null 2014 pylori antibody, IgG, serum Mar 30, vaginal Pap smear PAP SMEAR Normal null 2008 results
--- OUTSIDE RECORDS SUMMARY | 2017-10-29 10:27 | XMS REPORT | Summary of Care ---
:1955 Author Organization [facility] Primary [facility] [place] Address [address] [place] [address], [place] [address]- Encounter HQ Minoo_konrad(FIN) [id number] Date(s): 07/27/17 - 07/28/17 [facility] [place] [address] [place] [address], [place] [address] - [phone] Vital Signs No data available for this section Problem List Condition Effective Dates Status Health Status Informant Diarrhea1 08/23/14 Active 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 Gastritis3 08/22/14 Active Hypoglycemia(Confirmed) Resolved Multiple joint pain4 08/22/14 Active Muscle pain5 08/22/14 Active Nausea6 08/22/14 Active Numbness7 08/08/14 Active Obesity(Confirmed) Active Reactive hypoglycemia8 08/08/14 Active Screening mammography9 08/23/14 Active Poiiivgsl73, 11 12/08/11 Resolved Vitamin D iigszrinls83 08/23/14 Active 1Data migrated from [employer] on 10/04/14.2Data migrated from [employer] on 10/04/14.3Data migrated from [employer] on 10/04/14.4Data migrated from [employer] on 10/04/14.5Data migrated from [employer] on 10/04/14.6Data migrated from [employer] on 10/04/14.7Data migrated from [employer] on 10/04/14.8Data migrated from [employer] on 10/04/14.9Data migrated from [employer] on .10Data migrated from [employer] on 10/14/14.11Data migrated from [employer] on 10/13/14.12Data migrated from [employer] on 10/04/14. Allergies, Adverse Reactions, Alerts Substance Reaction Severity Status ciprofloxacin Active Levaquin Active Food Iodine Active NSAIDs Active Medications No data available for this section Results No data available for this section Immunizations No data available for this section Procedures Procedure Date Related Diagnosis Body Site Status Removal of gallbladder 03/30/13 Completed Bilateral tubal ligation Completed Carpal tunnel release Completed Mammogram Completed Social History Social History Type Response Substance Abuse 1 Alcohol 2 Smoking Status Never smoker; Ready to change: No; Concerns about tobacco use in household: No; Exposure to Tobacco Smoke None; Cigarette Smoking Last 365 Days No; Reg Smoking Cessation Counseling No entered on: 07/02/17 [id number] Assessment and Plan No data available for this section
--- OUTSIDE RECORDS SUMMARY | 2017-10-29 10:27 | XMS REPORT | Continuity of Care Document ---
:1955 Author Organization [facility] Care Team Providers Name Role Phone Sivlio Babin MD, Carlos Unavailable Unavailable Insurance Providers Payer name Policy type / Coverage type Policy ID Covered alliance party ID Policy Mueller AETNA (PPO) AETNA (PPO) Encounters Encounter Performer Location Date Office Visit Carlos Anguiano Jr., MD [facility] July [place] Allergies, Adverse Reactions, Alerts Type Substance Reaction [...] PROMETHAZINE HCL 25 MG SUPP 1 SUPP [place] Q 4 TO 6 HRS PRN Mar [...] spasms THYROID COMPOUND Active QSYMIA 3.75-23 MG [id number] 1 po qd August 08, 2014 Active OMEPRAZOLE 20 MG CPDR Take one capsule by mouth August 22, 2014 Active daily ONDANSETRON HCL 4 MG TABS 1 tablet every 8 hours as August 22, 2014 Active needed for nausea/vomiting VITAMIN D (ERGOCALCIFEROL) 69543 1 capsule weekly x 12 weeks August [...] antinuclear RHONDA Negative null Negative 2014 antibody Mar 30, vaginal Pap smear PAP SMEAR Normal null 2008 results
--- OUTSIDE RECORDS SUMMARY | 2017-10-29 10:27 | XMS REPORT | Continuity of Care Document ---
:1955 Author Organization [facility] Care Team Providers Name Role Phone Silvio Babin MD, Carlos Unavailable Unavailable Insurance Providers Payer name Policy type / Coverage type Policy ID Covered libertarian ID Policy Mueller AETNA (PPO) AETNA (PPO) Encounters Encounter Performer Location Date Office Visit Carlos Anguiano Jr., MD [facility] July [place] Allergies, Adverse Reactions, Alerts Type Substance Reaction [...] 2014 Active NAUSEA August 22, 2014 Active Procedures Date Description Comments Dec [...] PROMETHAZINE HCL 25 MG SUPP 1 SUPP [place] Q 4 TO 6 HRS PRN N/V. [...] spasms THYROID COMPOUND Active QSYMIA 3.75-23 MG [id number] 1 po qd August 08, 2014 Active OMEPRAZOLE 20 MG CPDR Take one capsule by mouth daily August 22, 2014 Active ONDANSETRON HCL 4 MG TABS 1 tablet every 8 hours as needed August 22, 2014 Active for nausea/vomiting Immunizations Vaccine Date Status influenza immunization (Flu [...] E&M - 8867-4 PULSE RATE 71 /min Results Date Description Test Name Value Reference Interpretation Status Nov 07, Helicobacter HELICOB IGG 0.6 U/mL 2013 pylori antibody, null IgG, serum Mar 30, vaginal Pap smear PAP SMEAR Normal null 2009 results
--- OUTSIDE RECORDS SUMMARY | 2017-10-29 10:27 | XMS REPORT | Summary of Care ---
:1955 Author Organization [facility] Primary Care [place] Address [address] [place] [address], [place] [address]- Encounter HQ Tk(FIN) [id number] Date(s): 03/31/17 - 03/31/17 [facility] Primary [place] [address] [place] [address], [place] [address] - [phone] Discharge Disposition: Home or Self Care Attending Physician: Carlos Chris MD Vital Signs Most recent to oldest [Reference Range]: 1 Height 160.02 cm (03/31/17 1:54 PM) Temperature Oral [96.4-99.1 DegF] 99.0 DegF (03/31/17 1:54 PM) Blood Pressure [90-140/60-90 mmHg] 127/84 mmHg (03/31/17 1:54 PM) Weight 94.545 kg (03/31/17 1:54 PM) Body Mass Index 36.92 m2 (03/31/17 1:54 PM) Problem List Condition Effective Dates Status Health Status Informant Diarrhea1 08/23/14 Active 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 Gastritis3 08/22/14 Active Hypoglycemia(Confirmed) Resolved Multiple joint pain4 08/22/14 Active Muscle pain5 08/22/14 Active Nausea6 08/22/14 Active Numbness7 08/08/14 Active Obesity(Confirmed) Active Reactive hypoglycemia8 08/08/14 Active Screening mammography9 08/23/14 Active Lzudemhjx80, 11 12/08/11 Resolved Vitamin D erbkidrpqs43 08/23/14 Active 1Data migrated from [employer] [...] Active Food Iodine Active NSAIDs Active Medications Azithromycin 5 Day Dose Pack 250 mg oral tablet See Instructions, Take 2 tablets by mouth the first day then 1 tablet by mouth days 2-5., X 5 day, #6 tab, 0 Refill(s), Pharmacy: [facility] [id number] Start Date: 03/31/17 Stop Date: 04/05/17 Status: Orderedbenzonatate 100 mg oral capsule 100 mg=1 cap, PO, TID, do not crush or chew, X 10 day, # 30 cap, 0 Refill(s), Pharmacy: [facility] [id number] Start Date: 03/31/17 Stop Date: 04/10/17 Status: OrderedCheratussin AC oral syrup 5 mL, PO, Q12H, PRN cough, X 10 day, # 100 mL, 0 Refill(s) Start Date: 03/31/17 Stop Date: 04/10/17 Status: Orderedfluticasone nasal 0.05 mg/inh spray 1 spray, NASAL, BID, # 16 gm, 2 Refill(s), Pharmacy: [facility] [id number] Start Date: 03/31/17 Status: Ordered Results No data available for this section Immunizations No data available for this section Procedures Procedure Date Related Diagnosis Body Site Removal of gallbladder 03/30/13 Bilateral tubal ligation Carpal tunnel release Social History Social History Type Response Smoking Status Never smoker; Ready to change: No; Concerns about tobacco use in household: No; Exposure to Tobacco Smoke None; Cigarette Smoking Last 365 Days No; Reg Smoking Cessation Counseling No Assessment and Plan No data available for this section
--- OUTSIDE RECORDS SUMMARY | 2017-10-29 10:27 | XMS REPORT | Summary of Care ---
:1955 Author Organization [facility] Primary Care [place] Address [address] [place] [address], [place] [address]- Encounter HQ Minoo_konrad(FIN) [id number] Date(s): 03/09/17 - 03/10/17 [facility] [place] [address] [place] [address], [place] [address] - [phone] Vital Signs No data available for this section Problem List Condition Effective Dates Status Health Status Informant Diarrhea1 08/23/14 Active 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 Gastritis3 08/22/14 Active Hypoglycemia(Confirmed) Resolved Multiple joint pain4 08/22/14 Active Muscle pain5 08/22/14 Active Nausea6 08/22/14 Active Numbness7 08/08/14 Active Obesity(Confirmed) Active Reactive hypoglycemia8 08/08/14 Active Screening mammography9 08/23/14 Active Ogfyybyfk06, 11 12/08/11 Resolved Vitamin D priowvmpze45 08/23/14 Active 1Data migrated from [employer] [...]
--- OUTSIDE RECORDS SUMMARY | 2017-10-29 10:27 | XMS REPORT | Summary of Care ---
:1955 Author Organization [facility] Primary [place] Address [address] [place] [address], [place] [address]- Encounter HQ Tk(FIN) [id number] Date(s): 02/23/17 - 02/23/17 [facility] Care [place] [address] [place] [address], [place] [address] - [phone] Discharge Disposition: Home or Self Care Attending Physician: Carlos Chris MD Vital Signs Most recent to oldest [Reference Range]: 1 Height 160.02 cm (02/23/17 1:45 PM) Temperature Oral [96.4-99.1 DegF] 97.9 DegF (02/23/17 1:45 PM) Blood Pressure [90-140/60-90 mmHg] 126/82 mmHg (02/23/17 1:45 PM) Weight 95.909 kg (02/23/17 1:45 PM) Body Mass Index 37.46 m2 (02/23/17 1:45 PM) Problem List Condition Effective Dates Status Health Status Informant Diarrhea1 08/23/14 Active 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 Gastritis3 08/22/14 Active Hypoglycemia(Confirmed) Resolved Multiple joint pain4 08/22/14 Active Muscle pain5 08/22/14 Active Nausea6 08/22/14 Active Numbness7 08/08/14 Active Obesity(Confirmed) Active Reactive hypoglycemia8 08/08/14 Active Screening mammography9 08/23/14 Active Sanyotcor69, 11 12/08/11 Resolved Vitamin D yibancipwf04 08/23/14 Active 1Data migrated from [employer] [...] Active Food Iodine Active NSAIDs Active Medications clonazePAM 0.5 mg oral tablet, disintegrating 0.5 mg=1 tab, PO, BID, # 60 tab, 1 Refill(s) Start Date: 02/23/17 Status: Ordered Results No data available for [...]
--- OUTSIDE RECORDS SUMMARY | 2017-10-29 10:27 | XMS REPORT | Summary of Care ---
:1955 Author Organization [facility] Primary Care [place] Address [address] [place] [address], [place] [address]- Encounter HQ Minoo_konrad(FIN) [id number] Date(s): 03/12/17 - 03/13/17 [facility] Care [place] [address] [place] [address], [place] [address] - [phone] Vital Signs No data available for this section Problem List Condition Effective Dates Status Health Status Informant Diarrhea1 08/23/14 Active 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 Gastritis3 08/22/14 Active Hypoglycemia(Confirmed) Resolved Multiple joint pain4 08/22/14 Active Muscle pain5 08/22/14 Active Nausea6 08/22/14 Active Numbness7 08/08/14 Active Obesity(Confirmed) Active Reactive hypoglycemia8 08/08/14 Active Screening mammography9 08/23/14 Active Xuwtzppnb54, 11 12/08/11 Resolved Vitamin D wbxekrtiet48 08/23/14 Active 1Data migrated from [employer] [...]
--- OUTSIDE RECORDS SUMMARY | 2017-10-29 10:28 | XMS REPORT | Summary of Care ---
:1955 Author Encounter LAURA Frey(NELA) [id number] Date(s): 11/30/13 - 11/30/13 [facility] [address] Discharge Diagnosis: Biliary colic Discharge Disposition: Home Physician Attending: Desean Mosquera MD Reason for Visit NAUSEA Vital Signs Most recent to oldest [Reference 1 2 3 Range]: Height 160.02 cm (11/30/13 12:06 PM) Temperature Oral [96.4-99.1 98.2 DegF DegF] (11/30/13 12:06 PM) Systolic Blood Pressure [90-140 139 mmHg 147 mmHg 152 mmHg mmHg] (11/30/13 4:22 PM) *HI* *HI* (11/30/13 2:00 PM) (11/30/13 12:06 PM) Diastolic Blood Pressure [60-90 91 mmHg 86 mmHg 92 mmHg mmHg] *HI* (11/30/13 2:00 PM) *HI* (11/30/13 4:22 PM) (11/30/13 12:06 PM) Respiratory Rate [14-20 BRMIN] 16 BRMIN 16 BRMIN 18 BRMIN (11/30/13 4:22 PM) (11/30/13 2:00 PM) (11/30/13 12:06 PM) Peripheral Pulse Rate [60-100 89 bpm 88 bpm 92 bpm bpm] (11/30/13 4:22 PM) (11/30/13 2:00 PM) (11/30/13 12:06 PM) Weight 96.818 kg (11/30/13 12:06 PM) Body Mass Index 37.81 m2 (11/30/13 12:06 PM) Problem List Condition Effective Dates Status Health Status Informant Hypoglycemia(Confirmed) Resolved Allergies, Adverse Reactions, Alerts Substance Reaction Severity Status Levaquin Active NSAIDs Active Medications Carafate 0 Refill(s) Start Date: 11/30/13 Status: OrderedNorco 5/325 oral tablet 1 tab, PO, Q6H, Pain, # 24 tab, 0 Refill(s) Start Date: 11/30/13 Stop Date: 12/05/13 Status: OrderedPhenergan 25 mg, 1 mL, Route: IM, Drug form: INJ, ONCE, Dosing Weight 96.818, kg, Priority : STAT, Start date: 11/30/13 12:41:00, Stop date: 11/30/13 12:41:00 Notes: Do not give IV push. (Same as: Phenergan) Start Date: 11/30/13 Stop Date: 11/30/13 Status: CompletedPhenergan 12.5 mg oral tablet 12.5 mg=1 tab, PO, Q6H, Nausea & Vomiting, # 20 tab, 0 Refill(s) Start Date: 11/30/13 Status: Orderedpromethazine 0 Refill(s) Start Date: 11/30/13 Status: OrderedSaline Flush 0.9% 10 mL, Route: IVP, Drug Form: INJ, Dosing Weight 96.818, kg, PRN, PRN Line Flush , Start date: 11/30/13 12:25:00, Duration: 30 day, Stop date: 12/30/13 12:24:00 Notes: (Same as: BD Posiflush) Start Date: 11/30/13 Stop Date: 11/30/13 Status: Discontinued Results ELECTROLYTES Most recent to oldest [Reference Range]: 1 Sodium Lvl [135-145 mEq/L] 138 mEq/L (11/30/13 12:35 PM) Potassium Lvl [3.5-5.1 mEq/L] 4.0 mEq/L (11/30/13 12:35 PM) Chloride Lvl [95-109 mEq/L] 104 mEq/L (11/30/13 12:35 PM) CO2 [24-32 mEq/L] 24 mEq/L (11/30/13 12:35 PM) AGAP [10.0-20.0 mEq/L] 14.0 mEq/L (11/30/13 12:35 PM) CHEM PANEL Most recent to oldest [Reference Range]: 1 Creatinine Lvl [0.5-1.4 mg/dL] 0.9 mg/dL (11/30/13 12:35 PM) eGFR 71 mL/min/1.73m2 1 *NA* (11/30/13 12:35 PM) BUN [7-22 mg/dL] 14 mg/dL (11/30/13 12:35 PM) B/C Ratio [6-25] 16 (11/30/13 12:35 PM) Glucose Lvl [70-99 mg/dL] 92 mg/dL 2 (11/30/13 12:35 PM) Total Protein [6.4-8.4 g/dL] 8.0 g/dL (11/30/13 12:35 PM) Albumin Lvl [3.5-5.0 g/dL] 4.1 g/dL (11/30/13 12:35 PM) Globulin [2.0-4.0 g/dL] 3.9 g/dL (11/30/13 12:35 PM) A/G Ratio [0.7-1.6] 1.1 (11/30/13 12:35 PM) Calcium Lvl [8.5-10.5 mg/dL] 9.5 mg/dL (11/30/13 12:35 PM) ALT [0-65 unit/L] 31 unit/L (11/30/13 12:35 PM) AST [0-37 unit/L] 25 unit/L (11/30/13 12:35 PM) Alk Phos [39-136 unit/L] 93 unit/L (11/30/13 12:35 PM) Bili Total [0.2-1.3 mg/dL] 0.9 mg/dL (11/30/13 12:35 PM) Amylase Lvl [25-115 unit/L] 35 unit/L (11/30/13 12:35 PM) Lipase Lvl [73-393 unit/L] 147 unit/L (11/30/13 12:35 PM) 1Result Comment: The eGFR is calculated using the CKD-EPI formula. In most young , healthy individualsthe eGFR will be >90 mL/min/1.73m2. The eGFR declines with age. An eGFR of 60-89 may be normal in some populations, particularly the elderly, for whom the CKD-EPI formula has not been extensively validated. Use of the eGFR is not recommended in the following populations: Individuals with unstable creatinine concentrations, including patients and those with serious co-morbid conditions. Patients with extremes in muscle mass or diet. The data above are obtained from the National Kidney Disease Education Program ( NKDEP) which additionally recommends that when the eGFR is used in patients with extremes of body mass index for purposesof drug dosing, the eGFR should be multiplied by the estimated BMI.2Interpretive Data: Adult reference range values reflect the clinical guidelines of the [place] [employer].URINE AND STOOL Most recent to oldest [Reference Range]: 1 UA Turbidity [Clear] Clear (11/30/13 2:00 PM) UA Color [Yellow] Yellow *NA* (11/30/13 2:00 PM) UA pH [5.0-8.0] 6.0 (11/30/13 2:00 PM) UA Spec Grav [<=1.030] 1.020 (11/30/13 2:00 PM) UA Glucose [Negative] Negative (11/30/13 2:00 PM) UA Blood [Negative] Trace *ABN* (11/30/13 2:00 PM) UA Ketones [Negative] Negative *NA* (11/30/13 2:00 PM) UA Protein [Negative] Negative (11/30/13 2:00 PM) UA Urobilinogen [0.1-1.0 EU/dL] 0.2 EU/dL (11/30/13 2:00 PM) UA Bili [Negative] Negative *NA* (11/30/13 2:00 PM) UA Leuk Est [Negative] Negative (11/30/13 2:00 PM) UA Nitrite [Negative] Negative (11/30/13 2:00 PM) UA WBC [None Seen /HPF] 0-2 /HPF (11/30/13 2:00 PM) UA RBC [0-2 /HPF] 0-2 /HPF (11/30/13 2:00 PM) UA Bacteria [None Seen /HPF] Occasional /HPF (11/30/13 2:00 PM) UA Sq Epi [Few /LPF] Few /LPF (11/30/13 2:00 PM) IMMUNOLOGY Most recent to oldest [Reference Range]: 1 CDC HIV 4th GEN [Negative] Negative (11/30/13 12:35 PM) HEMATOLOGY Most recent to oldest [Reference Range]: 1 WBC [3.7-10.4 K/CMM] 7.1 K/CMM (11/30/13 12:35 PM) RBC [4.20-5.40 M/CMM] 5.64 M/CMM *HI* (11/30/13 12:35 PM) Hgb [12.0-16.0 g/dL] 16.9 g/dL *HI* (11/30/13 12:35 PM) Hct [36.0-48.0 %] 49.7 % *HI* (11/30/13 12:35 PM) MCV [80.0-98.0 fL] 88.0 fL (11/30/13 12:35 PM) MCH [27.0-31.0 pg] 29.9 pg (11/30/13 12:35 PM) MCHC [32.0-36.0 g/dL] 34.0 g/dL (11/30/13 12:35 PM) RDW [11.5-14.5 %] 12.7 % (11/30/13 12:35 PM) Platelet [133-450 K/CMM] 236 K/CMM (11/30/13 12:35 PM) MPV [7.4-10.4 fL] 9.6 fL (11/30/13 12:35 PM) Segs [45.0-75.0 %] 67.7 % (11/30/13 12:35 PM) Lymphocytes [20.0-40.0 %] 25.4 % (11/30/13 12:35 PM) Monocytes [2.0-12.0 %] 5.7 % (11/30/13 12:35 PM) Eosinophils [0.0-4.0 %] 0.7 % (11/30/13 12:35 PM) Basophils [0.0-1.0 %] 0.5 % (11/30/13 12:35 PM) Segs-Bands # [1.5-8.1 K/CMM] 4.8 K/CMM (11/30/13 12:35 PM) Lymphocytes # [1.0-5.5 K/CMM] 1.8 K/CMM (11/30/13 12:35 PM) Monocytes # [0.0-0.8 K/CMM] 0.4 K/CMM (11/30/13 12:35 PM) Eosinophils # [0.0-0.5 K/CMM] 0.0 K/CMM (11/30/13 12:35 PM) Basophils # [0.0-0.2 K/CMM] 0.0 K/CMM (11/30/13 12:35 PM) Medications Administered During Your Visit No data available for this section Immunizations No data available for this section Procedures Procedure Type Body Site Date of Procedure Related Diagnosis Bilateral tubal ligation Carpal tunnel release Social History Social History Type Response Smoking Status Unknown if ever smoked, Exposure to Tobacco Smoke None, Cigarette Smoking Last 365 Days No, Reg Smoking Cessation Counseling No
--- OUTSIDE RECORDS SUMMARY | 2017-10-29 10:28 | XMS REPORT | Summary of Care ---
:1955 Author Organization [facility] Primary Care [place] Address [address] [place] [address], [place] [address]- Encounter HQ Almitar_konrad(FIN) [id number] Date(s): 06/26/17 - 06/27/17 [facility] [place] [address] [place] [address], [facility] [place] [address] - [phone] Vital Signs No data available for this section Problem List Condition Effective Dates Status Health Status Informant Diarrhea1 08/23/14 Active 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 Gastritis3 08/22/14 Active Hypoglycemia(Confirmed) Resolved Multiple joint pain4 08/22/14 Active Muscle pain5 08/22/14 Active Nausea6 08/22/14 Active Numbness7 08/08/14 Active Obesity(Confirmed) Active Reactive hypoglycemia8 08/08/14 Active Screening mammography9 08/23/14 Active Tgacoeajh38, 11 12/08/11 Resolved Vitamin D hlairypsbi26 08/23/14 Active 1Data migrated from [employer] [...] Active Food Iodine Active NSAIDs Active Medications valACYclovir 1 g oral tablet 1 gm=1 tab, PO, Q8H, X 7 day, # 21 tab, 1 Refill(s), Pharmacy: [facility] [id number] Start Date: 06/29/17 Stop Date: 07/02/17 Status: Discontinued Results No data available for this section [...] Smoking Cessation Counseling No entered on: 07/02/17 [id number] Assessment and Plan No data available for this section
--- OUTSIDE RECORDS SUMMARY | 2017-10-29 10:28 | XMS REPORT | Summary of Care ---
:1955 Author Organization [facility] Primary [facility] [place] Address [address] [place] [address], [place] [address]- Encounter HQ Minoo_konrad(FIN) [id number] Date(s): 06/29/17 - 06/29/17 [facility] [place] [address] [place] [address], [place] [address] - [phone] Attending Physician: Carlos Chris MD Vital Signs No data available for this section Problem List Condition Effective Dates Status Health Status Informant Diarrhea1 08/23/14 Active 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 Gastritis3 08/22/14 Active Hypoglycemia(Confirmed) Resolved Multiple joint pain4 08/22/14 Active Muscle pain5 08/22/14 Active Nausea6 08/22/14 Active Numbness7 08/08/14 Active Obesity(Confirmed) Active Reactive hypoglycemia8 08/08/14 Active Screening mammography9 08/23/14 Active Ogfecuana95, 11 12/08/11 Resolved Vitamin D [id number] 08/23/14 Active 1Data migrated from [employer] [...] from [employer] on 10/13/14.12Data migrated from [employer] on 10/04/14. Allergies, Adverse Reactions, Alerts Substance [...] Smoking Cessation Counseling No entered on: 07/02/17 [id number] Assessment and Plan No data available for this section
--- OUTSIDE RECORDS SUMMARY | 2017-10-29 10:28 | XMS REPORT | Summary of Care ---
:1955 Author Organization [facility] Primary Care [place] Address [address] [place] [address], [place] [address]- Encounter HQ Tk(FIN) [id number] Date(s): 06/09/17 - 06/09/17 [facility] Care [place] [address] [place] [address], [place] [address] - [phone] Discharge Disposition: Home or Self Care Attending Physician: Carlos Chris MD Vital Signs Most recent to oldest [Reference Range]: 1 Height 160.02 cm (06/09/17 1:55 PM) Temperature Oral [96.4-99.1 DegF] 98.3 DegF (06/09/17 1:55 PM) Blood Pressure [90-140/60-90 mmHg] 140/84 mmHg (06/09/17 1:55 PM) Peripheral Pulse Rate [60-100 bpm] 79 bpm (06/09/17 1:55 PM) Weight 94.602 kg (06/09/17 1:55 PM) Body Mass Index 36.94 m2 (06/09/17 1:55 PM) Problem List Condition Effective Dates Status Health Status Informant Diarrhea1 08/23/14 Active 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 Gastritis3 08/22/14 Active Hypoglycemia(Confirmed) Resolved Multiple joint pain4 08/22/14 Active Muscle pain5 08/22/14 Active Nausea6 08/22/14 Active Numbness7 08/08/14 Active Obesity(Confirmed) Active Reactive hypoglycemia8 08/08/14 Active Screening mammography9 08/23/14 Active Nmrynahfj82, 11 12/08/11 Resolved Vitamin D [id number] 08/23/14 Active 1Data migrated from [employer] [...] Active Food Iodine Active NSAIDs Active Medications polyethylene glycol 3350 oral powder for reconstitution 17 gm, PO, Daily, X 31 day, # 527 gm, 1 Refill(s), Pharmacy: [id number] Start Date: 06/09/17 Stop Date: 08/10/17 Status: CompletedvalACYclovir 1 g oral tablet 1 gm=1 tab, PO, Q8H, X 7 day, # 21 tab, 1 Refill(s), Pharmacy: [id number] Start Date: 06/09/17 Stop Date: 06/23/17 Status: Completed Results No data available for this section [...] Smoking Cessation Counseling No entered on: 07/02/17 [id number] Assessment and Plan No data available for this section
--- OUTSIDE RECORDS SUMMARY | 2017-10-29 10:28 | XMS REPORT | Summary of Care ---
:1955 Author Organization [facility] Primary Care [place] Address [address] [place] [address], [place] [address]- Encounter HQ Almitar_konrad(FIN) [id number] Date(s): 06/05/17 - 06/06/17 [facility] Care [place] [address] [place] [address], [facility] [place] [address] - [phone] Vital Signs No data available for this section Problem List Condition Effective Dates Status Health Status Informant Diarrhea1 08/23/14 Active 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 Gastritis3 08/22/14 Active Hypoglycemia(Confirmed) Resolved Multiple joint pain4 08/22/14 Active Muscle pain5 08/22/14 Active Nausea6 08/22/14 Active Numbness7 08/08/14 Active Obesity(Confirmed) Active Reactive hypoglycemia8 08/08/14 Active Screening mammography9 08/23/14 Active Xqobpzbmr64, 11 12/08/11 Resolved Vitamin D [id number] 08/23/14 Active 1Data migrated from [employer] [...] Smoking Cessation Counseling No entered on: 07/02/17 [id number] Assessment and Plan No data available for this section
--- OUTSIDE RECORDS SUMMARY | 2017-10-29 10:28 | XMS REPORT | Summary of Care ---
:1955 Author Organization [facility] Primary Care [place] Address [address] [place] [address], [place] [address]- Encounter HQ Tk(FIN) [id number] Date(s): 07/02/17 - 07/02/17 [facility] Care [place] [address] [place] [address], [place] [address] - [phone] Discharge Disposition: Home or Self Care Attending Physician: Carlos Chris MD Vital Signs Most recent to oldest [Reference Range]: 1 Height 160.02 cm (07/02/17 2:47 PM) Temperature Oral [96.4-99.1 DegF] 98.4 DegF (07/02/17 2:47 PM) Blood Pressure [90-140/60-90 mmHg] 129/68 mmHg (07/02/17 2:47 PM) Weight 96.364 kg (07/02/17 2:47 PM) Body Mass Index 37.63 m2 (07/02/17 2:47 PM) Problem List Condition Effective Dates Status Health Status Informant Diarrhea1 08/23/14 Active 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 Gastritis3 08/22/14 Active Hypoglycemia(Confirmed) Resolved Multiple joint pain4 08/22/14 Active Muscle pain5 08/22/14 Active Nausea6 08/22/14 Active Numbness7 08/08/14 Active Obesity(Confirmed) Active Reactive hypoglycemia8 08/08/14 Active Screening mammography9 08/23/14 Active Ndndmjmse50, 11 12/08/11 Resolved Vitamin D sjhzbkepkv63 08/23/14 Active 1Data migrated from [employer] [...] Active Food Iodine Active NSAIDs Active Medications Lyrica 50 mg oral capsule 50 mg=1 cap, PO, TID, # 90 cap, 0 Refill(s) Start Date: 07/02/17 Stop Date: 08/01/17 Status: OrderedvalACYclovir 1 g oral tablet 1 gm=1 tab, PO, Q8H, X 10 day, # 30 tab, 1 Refill(s), Pharmacy: [id number] Start Date: 07/02/17 Stop Date: 07/22/17 Status: Completed Results No data available for [...] Reg Smoking Cessation Counseling No entered on: 10/06/17 [id number] Assessment and Plan No data available for this section
--- OUTSIDE RECORDS SUMMARY | 2017-10-29 10:28 | XMS REPORT | Summary of Care ---
:1955 Author Organization [facility] Primary Care [place] Address [address] [place] [address], [place] [address]- Encounter HQ Almitar_konrad(FIN) [id number] Date(s): 07/28/17 - 07/29/17 [facility] Care [address], [facility] [place] [address] - [phone] Vital Signs No data available for this section Problem List Condition Effective Dates Status Health Status Informant Diarrhea1 08/23/14 Active 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 Gastritis3 08/22/14 Active Hypoglycemia(Confirmed) Resolved Multiple joint pain4 08/22/14 Active Muscle pain5 08/22/14 Active Nausea6 08/22/14 Active Numbness7 08/08/14 Active Obesity(Confirmed) Active Reactive hypoglycemia8 08/08/14 Active Screening mammography9 08/23/14 Active Xzgckpyod87, 11 12/08/11 Resolved Vitamin D nyhxrpswmu63 08/23/14 Active 1Data migrated from [employer] [...] Smoking Cessation Counseling No entered on: 07/02/17 [id number] Assessment and Plan No data available for this section
--- OUTSIDE RECORDS SUMMARY | 2017-10-29 10:28 | XMS REPORT | Summary of Care ---
:1955 Author Organization [facility] Primary Care [place] Address [address] [place] [address], [place] [address]- Encounter HQ Almitar_konrad(FIN) [id number] Date(s): 07/28/17 - 07/29/17 [facility] Care [place] [address] [place] [address], [facility] [place] [address] - [phone] Vital Signs No data available for this section Problem List Condition Effective Dates Status Health Status Informant Diarrhea1 08/23/14 Active 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 Gastritis3 08/22/14 Active Hypoglycemia(Confirmed) Resolved Multiple joint pain4 08/22/14 Active Muscle pain5 08/22/14 Active Nausea6 08/22/14 Active Numbness7 08/08/14 Active Obesity(Confirmed) Active Reactive hypoglycemia8 08/08/14 Active Screening mammography9 08/23/14 Active Ovxkjfuyn79, 11 12/08/11 Resolved Vitamin D [id number] 08/23/14 Active 1Data migrated from [employer] [...] Smoking Cessation Counseling No entered on: 07/02/17 [id number] Assessment and Plan No data available for this section
--- OUTSIDE RECORDS SUMMARY | 2017-10-29 10:28 | XMS REPORT | Summary of Care ---
:1955 Author Organization [facility] Address [address] [place] [address]- Encounter HQ Encntr_alijuju(FIN) [id number] Date(s): 06/05/17 - 06/05/[address] [phone] Discharge Disposition: Not Treated Attending Physician: Zeb Delgado MD Vital Signs No data available for this section Problem List Condition Effective Dates Status Health Status Informant Diarrhea1 08/23/14 Active 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 Gastritis3 08/22/14 Active Hypoglycemia(Confirmed) Resolved Multiple joint pain4 08/22/14 Active Muscle pain5 08/22/14 Active Nausea6 08/22/14 Active Numbness7 08/08/14 Active Obesity(Confirmed) Active Reactive hypoglycemia8 08/08/14 Active Screening mammography9 08/23/14 Active Cuiinrcaw85, 11 12/08/11 Resolved Vitamin D vtctkfmzja73 08/23/14 Active 1Data migrated from [employer] [...] from [employer] on 10/13/14.12Data migrated from [employer] on 10/04/14. Allergies, Adverse Reactions, Alerts Substance [...] Smoking Cessation Counseling No entered on: 07/02/17 [id number] Assessment and Plan No data available for this section
--- OUTSIDE RECORDS SUMMARY | 2017-10-29 10:28 | XMS REPORT | Summary of Care ---
:1955 Author Organization [facility] Primary Care [place] Address [address] [place] [address], [place] [address]- Encounter HQ Minoo_konrad(FIN) [id number] Date(s): 07/27/17 - 07/28/17 [facility] Care [place] [address] [place] [address], [facility] [place] [address] - [phone] Vital Signs No data available for this section Problem List Condition Effective Dates Status Health Status Informant Diarrhea1 08/23/14 Active 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 Gastritis3 08/22/14 Active Hypoglycemia(Confirmed) Resolved Multiple joint pain4 08/22/14 Active Muscle pain5 08/22/14 Active Nausea6 08/22/14 Active Numbness7 08/08/14 Active Obesity(Confirmed) Active Reactive hypoglycemia8 08/08/14 Active Screening mammography9 08/23/14 Active Wrarwcuuc76, 11 12/08/11 Resolved Vitamin D [id number] 08/23/14 Active 1Data migrated from [employer] [...] Smoking Cessation Counseling No entered on: 07/02/17 [id number] Assessment and Plan No data available for this section
--- OUTSIDE RECORDS SUMMARY | 2017-10-29 10:28 | XMS REPORT | Summary of Care ---
:1955 Author Organization [facility] Primary Care [place] Address [address] [place] [address], [place] [address]- Encounter HQ Tk(FIN) [id number] Date(s): 10/06/17 - 10/06/17 [facility] Care [place] [address] [place] [address], [place] [address] - [phone] Discharge Disposition: Home or Self Care Attending Physician: Carlos Chris MD Vital Signs Most recent to oldest [Reference Range]: 1 Height 160.02 cm (10/06/17 2:44 PM) Temperature Oral [96.4-99.1 DegF] 98.4 DegF (10/06/17 2:44 PM) Blood Pressure [90-140/60-90 mmHg] 115/75 mmHg (10/06/17 2:44 PM) Peripheral Pulse Rate [60-100 bpm] 82 bpm (10/06/17 2:44 PM) Weight 93.636 kg (10/06/17 2:44 PM) Body Mass Index 36.57 m2 (10/06/17 2:44 PM) Problem List Condition Effective Dates Status Health Status Informant Diarrhea1 08/23/14 Active 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 Gastritis3 08/22/14 Active Hypoglycemia(Confirmed) Resolved Multiple joint pain4 08/22/14 Active Muscle pain5 08/22/14 Active Nausea6 08/22/14 Active Numbness7 08/08/14 Active Obesity(Confirmed) Active Reactive hypoglycemia8 08/08/14 Active Screening mammography9 08/23/14 Active Ttxmogvrq41, 11 12/08/11 Resolved Vitamin D [id number] 08/23/14 Active 1Data migrated from [employer] [...] Food Iodine Active NSAIDs Active Medications No Known Medications Results No data available for this section [...] Smoking Cessation Counseling No entered on: 10/06/17 [id number] Assessment and Plan No data available for this section
--- OUTSIDE RECORDS SUMMARY | 2017-10-29 10:28 | XMS REPORT | Summary of Care ---
:1955 Author Organization [facility] Primary Care [place] Address [address] [place] [address], [place] [address]- Encounter HQ Almitar_konrad(FIN) [id number] Date(s): 06/15/17 - 06/16/17 [facility] Care [place] [address] [place] [address], [facility] [place] [address] - [phone] Vital Signs No data available for this section Problem List Condition Effective Dates Status Health Status Informant Diarrhea1 08/23/14 Active 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 Gastritis3 08/22/14 Active Hypoglycemia(Confirmed) Resolved Multiple joint pain4 08/22/14 Active Muscle pain5 08/22/14 Active Nausea6 08/22/14 Active Numbness7 08/08/14 Active Obesity(Confirmed) Active Reactive hypoglycemia8 08/08/14 Active Screening mammography9 08/23/14 Active Ahqcwmykd62, 11 12/08/11 Resolved Vitamin D [id number] 08/23/14 Active 1Data migrated from [employer] [...] Smoking Cessation Counseling No entered on: 07/02/17 [id number] Assessment and Plan No data available for this section
--- OUTSIDE RECORDS SUMMARY | 2017-10-29 10:29 | XMS REPORT | Summary of Care ---
:1955 Author Organization [facility] Address [address] [place], [place] [address]- Encounter HQ Tk([facility]) [id number] Date(s): 09/16/15 - 09/16/15 [facility] [address] [place] [address]- Discharge Diagnosis: Adult hypothyroidism Discharge Disposition: Home Attending Physician: Michelle Shaffer MD Vital Signs Most recent to oldest [Reference Range]: 1 2 Height 160.02 cm (09/16/15 4:59 PM) Temperature Oral [96.4-99.1 DegF] 98.0 DegF (09/16/15 4:59 PM) Blood Pressure [90-140/60-90 mmHg] 133/75 mmHg 155/95 mmHg (09/16/15 6:31 PM) *HI* (09/16/15 4:59 PM) Respiratory Rate [14-20 BRMIN] 18 BRMIN 18 BRMIN (09/16/15 6:31 PM) (09/16/15 4:59 PM) Peripheral Pulse Rate [60-100 bpm] 78 bpm 81 bpm (09/16/15 6:31 PM) (09/16/15 4:59 PM) Weight 85.818 kg (09/16/15 4:59 PM) Body Mass Index 33.51 m2 (09/16/15 4:59 PM) Problem List Condition Effective Dates Status Health Status Informant Diarrhea1 08/23/14 Active 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 Gastritis3 08/22/14 Active Hypoglycemia(Confirmed) Resolved Multiple joint pain4 08/22/14 Active Muscle pain5 08/22/14 Active Nausea6 08/22/14 Active Numbness7 08/08/14 Active Obesity(Confirmed) Active Reactive hypoglycemia8 08/08/14 Active Screening mammography9 08/23/14 Active Cqwqpearv59, 11 12/08/11 Resolved Vitamin D mthyoipspy89 08/23/14 Active 1Data migrated from [employer] [...] Reaction Severity Status ciprofloxacin Active Levaquin Active NSAIDs Active Medications Saline Flush 0.9% 10 mL, Route: IVP, Drug Form: INJ, Dosing Weight 85.818, kg, PRN, PRN Line Flush , Start date: 09/16/15 17:33:00 CDT, Duration: 30 day, Stop date: 10/16/15 17:32 :00 CDT Notes: (Same as: BD Posiflush) Start Date: 09/16/15 Stop Date: 09/16/15 Status: DiscontinuedSodium Chloride 0.9% (Bolus) IV 1,000 mL, 1,000 ml/hr, Infuse Over: 1 hr, Route: IV, 1,000, Drug form: INJ, ONCE , Priority: STAT, Dosing Weight 85.818 kg, Start date: 09/16/15 17:33:00 CDT, Duration: 1 doses or times, Stop date: 09/16/15 17:33:00 CDT Start Date: 09/16/15 Stop Date: 09/16/15 Status: CompletedSynthroid 25 mcg (0.025 mg) oral tablet 25 microgram=1 tab, PO, Daily, # 14 tab, 0 Refill(s) Start Date: 09/16/15 Stop Date: 09/30/15 Status: Ordered Results ELECTROLYTES Most recent to oldest [Reference Range]: 1 Sodium Lvl [135-145 mEq/L] 145 mEq/L (09/16/15 5:47 PM) Potassium Lvl [3.5-5.1 mEq/L] 3.7 mEq/L (09/16/15 5:47 PM) Chloride Lvl [95-109 mEq/L] 108 mEq/L (09/16/15 5:47 PM) CO2 [24-32 mEq/L] 28 mEq/L (09/16/15 5:47 PM) AGAP [10.0-20.0 mEq/L] 12.7 mEq/L (09/16/15 5:47 PM) CHEM PANEL Most recent to oldest [Reference Range]: 1 Creatinine Lvl [0.50-1.40 mg/dL] 0.90 mg/dL (09/16/15 5:47 PM) eGFR 71 mL/min/1.73m2 1 *NA* (09/16/15 5:47 PM) BUN [7-22 mg/dL] 16 mg/dL (09/16/15 5:47 PM) B/C Ratio [6-25] 18 (09/16/15 5:47 PM) Glucose Lvl [70-99 mg/dL] 102 mg/dL *HI* (09/16/15 5:47 PM) Total Protein [6.4-8.4 g/dL] 7.0 g/dL (09/16/15 5:47 PM) Albumin Lvl [3.5-5.0 g/dL] 3.7 g/dL (09/16/15 5:47 PM) Globulin [2.0-4.0 g/dL] 3.3 g/dL (09/16/15 5:47 PM) A/G Ratio [0.7-1.6] 1.1 (09/16/15 5:47 PM) Calcium Lvl [8.5-10.5 mg/dL] 8.6 mg/dL (09/16/15 5:47 PM) ALT [0-65 unit/L] 24 unit/L (09/16/15 5:47 PM) AST [0-37 unit/L] 18 unit/L (09/16/15 5:47 PM) Alk Phos [39-136 unit/L] 77 unit/L (09/16/15 5:47 PM) Bili Total [0.2-1.3 mg/dL] 0.8 mg/dL (09/16/15 5:47 PM) 1Result Comment: The eGFR is calculated [...] eGFR should be multiplied by the estimated BMI.CARDIAC ENZYMES Most recent to oldest [Reference Range]: 1 Total CK [12-191 unit/L] 54 unit/L (09/16/15 5:47 PM) CK MB [0.5-3.6 ng/mL] <0.5 ng/mL (09/16/15 5:47 PM) CK MB Index [0.0-2.5] <0.9 (09/16/15 5:47 PM) Troponin-I [0.00-0.40 ng/mL] <0.02 ng/mL (09/16/15 5:47 PM) URINE AND STOOL Most recent to oldest [Reference Range]: 1 UA Turbidity [Clear] Clear (09/16/15 5:47 PM) UA Color [Yellow] Yellow *NA* (09/16/15 5:47 PM) UA pH [5.0-8.0] 6.0 (09/16/15 5:47 PM) UA Spec Grav [<=1.030] 1.025 (09/16/15 5:47 PM) UA Glucose [Negative] Negative (09/16/15 5:47 PM) UA Blood [Negative] Trace *ABN* (09/16/15 5:47 PM) UA Ketones [Negative] Negative *NA* (09/16/15 5:47 PM) UA Protein [Negative] Negative (09/16/15 5:47 PM) UA Urobilinogen [0.1-1.0 EU/dL] 0.2 EU/dL (09/16/15 5:47 PM) UA Bili [Negative] Negative *NA* (09/16/15 5:47 PM) UA Leuk Est [Negative] Negative (09/16/15 5:47 PM) UA Nitrite [Negative] Negative (09/16/15 5:47 PM) UA WBC [None Seen /HPF] 0-2 /HPF (09/16/15 5:47 PM) UA RBC [0-2] None Seen (09/16/15 5:47 PM) UA Bacteria [None Seen /HPF] Occasional /HPF (09/16/15 5:47 PM) UA Sq Epi [Few /LPF] Occasional /LPF (09/16/15 5:47 PM) UA Mucus [None Seen] None Seen (09/16/15 5:47 PM) Micro? Performed (09/16/15 5:47 PM) HEMATOLOGY Most recent to oldest [Reference Range]: 1 WBC [3.7-10.4 K/CMM] 8.8 K/CMM (09/16/15 5:47 PM) RBC [4.20-5.40 M/CMM] 5.39 M/CMM (09/16/15 5:47 PM) Hgb [12.0-16.0 g/dL] 15.6 g/dL (09/16/15 5:47 PM) Hct [36.0-48.0 %] 47.5 % (09/16/15 5:47 PM) MCV [80.0-98.0 fL] 88.0 fL (09/16/15 5:47 PM) MCH [27.0-31.0 pg] 29.0 pg (09/16/15 5:47 PM) MCHC [32.0-36.0 g/dL] 33.0 g/dL (09/16/15 5:47 PM) RDW [11.5-14.5 %] 13.3 % (09/16/15 5:47 PM) Platelet [133-450 K/CMM] 242 K/CMM (09/16/15 5:47 PM) MPV [7.4-10.4 fL] 9.5 fL (09/16/15 5:47 PM) Segs [45.0-75.0 %] 54.0 % (09/16/15 5:47 PM) Lymphocytes [20.0-40.0 %] 38.1 % (09/16/15 5:47 PM) Monocytes [2.0-12.0 %] 6.3 % (09/16/15 5:47 PM) Eosinophils [0.0-4.0 %] 1.1 % (09/16/15 5:47 PM) Basophils [0.0-1.0 %] 0.5 % (09/16/15 5:47 PM) Segs-Bands # [1.5-8.1 K/CMM] 4.7 K/CMM (09/16/15 5:47 PM) Lymphocytes # [1.0-5.5 K/CMM] 3.4 K/CMM (09/16/15 5:47 PM) Monocytes # [0.0-0.8 K/CMM] 0.6 K/CMM (09/16/15 5:47 PM) Eosinophils # [0.0-0.5 K/CMM] 0.1 K/CMM (09/16/15 5:47 PM) Basophils # [0.0-0.2 K/CMM] 0.0 K/CMM (09/16/15 5:47 PM) Immunizations No data available for this section [...]
--- OUTSIDE RECORDS SUMMARY | 2017-10-29 10:29 | XMS REPORT | Summary of Care ---
:1955 Author Organization [facility] Outpatient Imaging [place] Address [address] [place] [address]- Encounter HQ Tk(FIN) [id number] Date(s): 02/23/15 - 02/23/15 [facility] Outpatient Imaging [place] [address]- [facility] Discharge Disposition: Home Attending Physician: Sb Jesus MD Vital Signs No data available for this section Problem List Condition Effective Dates Status Health Status Informant Diarrhea1 08/23/14 Active 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 Gastritis3 08/22/14 Active Hypoglycemia(Confirmed) Resolved Multiple joint pain4 08/22/14 Active Muscle pain5 08/22/14 Active Nausea6 08/22/14 Active Numbness7 08/08/14 Active Obesity(Confirmed) Active Reactive hypoglycemia8 08/08/14 Active Screening mammography9 08/23/14 Active Sypqqdyzz53, 11 12/08/11 Resolved Vitamin D oyvdepnozj62 08/23/14 Active 1Data migrated from [employer] [...] Severity Status Levaquin Active NSAIDs Active Medications No data available for this section Results No data available for this section Immunizations No data available for this section Procedures Procedure Date Related Diagnosis Body Site Removal of gallbladder 03/30/13 Bilateral tubal ligation Carpal tunnel release Social History Social History Type Response Smoking Status Never smoker; Exposure to Tobacco Smoke None; Cigarette Smoking Last 365 Days No; Reg Smoking Cessation Counseling No Assessment and Plan No data available for this section
--- OUTSIDE RECORDS SUMMARY | 2017-10-29 10:29 | XMS REPORT | Summary of Care ---
:1955 Author Organization [facility] Outpatient Imaging - [facility] Address [address] [place] [address]- Encounter HQ Flaquitontr_alijuju(FIN) [id number] Date(s): 03/25/16 - 03/25/16 [facility] Outpatient Imaging - [address] [place] [address]- Discharge Disposition: Home or Self Care Attending Physician: Epifanio Lundy MD Vital Signs No data available for this section Problem List Condition Effective Dates Status Health Status Informant Diarrhea1 08/23/14 Active 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 Gastritis3 08/22/14 Active Hypoglycemia(Confirmed) Resolved Multiple joint pain4 08/22/14 Active Muscle pain5 08/22/14 Active Nausea6 08/22/14 Active Numbness7 08/08/14 Active Obesity(Confirmed) Active Reactive hypoglycemia8 08/08/14 Active Screening mammography9 08/23/14 Active Glssvlmcv77, 11 12/08/11 Resolved Vitamin D [id number] 08/23/14 Active 1Data migrated from [employer] [...] from [employer] on 10/13/14.12Data migrated from [employer] on 10/04/14. Allergies, Adverse Reactions, Alerts Substance Reaction Severity Status ciprofloxacin Active Levaquin Active NSAIDs Active Medications No data [...]
--- OUTSIDE RECORDS SUMMARY | 2017-10-29 10:29 | XMS REPORT | Summary of Care ---
:1955 Author Organization [facility] Address [address] [place] [address]- Encounter HQ Minoo_konrad(FIN) [id number] Date(s): 04/30/15 - 04/30/[address] [address]- [employer] Discharge Disposition: Home Attending Physician: Epifanio Lundy MD Referring Physician: Epifanio Lundy MD Vital Signs No data available for this section Problem List Condition Effective Dates Status Health Status Informant Diarrhea1 08/23/14 Active 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 Gastritis3 08/22/14 Active Hypoglycemia(Confirmed) Resolved Multiple joint pain4 08/22/14 Active Muscle pain5 08/22/14 Active Nausea6 08/22/14 Active Numbness7 08/08/14 Active Obesity(Confirmed) Active Reactive hypoglycemia8 08/08/14 Active Screening mammography9 08/23/14 Active Dxcgfrmat79, 11 12/08/11 Resolved Vitamin D [id number] 08/23/14 Active 1Data migrated from [employer] [...]
--- OUTSIDE RECORDS SUMMARY | 2017-10-29 10:29 | XMS REPORT | Summary of Care ---
:1955 Author Organization [facility] Address [address] [place] [id number]- Encounter HQ Tk(FIN) [id number] Date(s): 03/14/15 - 03/14/[address] [address]- [employer] Discharge Disposition: Home Attending Physician: Epifanio Lundy MD Referring Physician: Epifanio Lundy MD Vital Signs Most recent to oldest [Reference Range]: 1 Height 160.02 cm (03/14/15 2:38 PM) Temperature Oral [96.4-99.1 DegF] 97.9 DegF (03/14/15 2:38 PM) Blood Pressure [90-140/60-90 mmHg] 148/88 mmHg *HI* (03/14/15 2:38 PM) Peripheral Pulse Rate [60-100 bpm] 81 bpm (03/14/15 2:38 PM) Weight 81.591 kg (03/14/15 2:38 PM) Body Mass Index 31.86 m2 (03/14/15 2:38 PM) Problem List Condition Effective Dates Status Health Status Informant Diarrhea1 08/23/14 Active 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 Gastritis3 08/22/14 Active Hypoglycemia(Confirmed) Resolved Multiple joint pain4 08/22/14 Active Muscle pain5 08/22/14 Active Nausea6 08/22/14 Active Numbness7 08/08/14 Active Obesity(Confirmed) Active Reactive hypoglycemia8 08/08/14 Active Screening mammography9 08/23/14 Active Pbklgnymb04, 11 12/08/11 Resolved Vitamin D [id number] 08/23/14 Active 1Data migrated from [employer] [...] Severity Status Levaquin Active NSAIDs Active Medications cholestyramine 4 g/5 g oral powder 4 gm, PO, BID, # 210 gm, 0 Refill(s), called to pharmacy Start Date: 03/15/15 Status: OrderedFlagyl 500 mg=1 tab, PO, BID, # 14 tab, 0 Refill(s) Start Date: 03/14/15 Stop Date: 03/21/15 Status: OrderedGoLYTELY oral powder for reconstitution 240 mL, PO, Q10Min, # 1 ea, 0 Refill(s), Pharmacy: [facility] Start Date: 03/14/15 Stop Date: 03/15/15 Status: OrderedLevsin SL 0.125 mg sublingual tablet 0.125 mg=1 tab, SL, Q4H, # 30 tab, 1 Refill(s), Pharmacy: [facility] Start Date: 03/15/15 Stop Date: 03/15/15 Status: DiscontinuedPhenergan 12.5 mg oral tablet 12.5 mg=1 tab, PO, Q4H, PRN Other-See Comments, X 10 day, # 60 tab, 0 Refill(s) , called to pharmacy Start Date: 03/15/15 Stop Date: 03/25/15 Status: OrderedZofran ODT 8 mg oral tablet, disintegrating 8 mg=1 tab, PO, TID, PRN Nausea and Vomiting, Dissolve tab under tongue, X 7 day , # 21 tab, 1 Refill(s), Pharmacy: [facility] Start Date: 03/15/15 Stop Date: 03/29/15 Status: Ordered Results No data available for [...]
--- OUTSIDE RECORDS SUMMARY | 2017-10-29 10:29 | XMS REPORT | Summary of Care ---
:1955 Author Organization [facility] Address [address] [place], [place] [address]- Encounter HQ Tk(FIN) [id number] Date(s): 03/12/16 - 03/12/16 [facility] [address] [facility] [address] [place] [phone] Discharge Disposition: Home or Self Care Attending Physician: Epifanio Lundy MD Referring Physician: Epifanio Lundy MD Vital Signs Most recent to oldest [Reference Range]: 1 Height 160.02 cm (03/12/16 1:37 PM) Blood Pressure [90-140/60-90 mmHg] 143/94 mmHg *HI* (03/12/16 1:37 PM) Respiratory Rate [14-20 BRMIN] 16 BRMIN (03/12/16 1:37 PM) Peripheral Pulse Rate [60-100 bpm] 72 bpm (03/12/16 1:37 PM) Weight 90.909 kg (03/12/16 1:37 PM) Body Mass Index 35.5 m2 (03/12/16 1:37 PM) Problem List Condition Effective Dates Status Health Status Informant Diarrhea1 08/23/14 Active 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 Gastritis3 08/22/14 Active Hypoglycemia(Confirmed) Resolved Multiple joint pain4 08/22/14 Active Muscle pain5 08/22/14 Active Nausea6 08/22/14 Active Numbness7 08/08/14 Active Obesity(Confirmed) Active Reactive hypoglycemia8 08/08/14 Active Screening mammography9 08/23/14 Active Sjzzxhrzn05, 11 12/08/11 Resolved Vitamin D [id number] 08/23/14 Active 1Data migrated from [employer] [...] ciprofloxacin Active Levaquin Active NSAIDs Active Medications EnteraGam EnteraGam, See Instructions, Samples given in clinic on 03/12/16. Lot [id number] exp date 10/15, # 1 box, Refill(s) 0 Start Date: 03/12/16 Status: OrderedProtonix 40 mg oral enteric coated tablet 40 mg=1 tab, PO, Daily, 0 Refill(s) Start Date: 03/12/16 Status: Ordered Results No data available for [...]
[2017-10-29] MEDS ORDERED: ASPIRIN 81 MG CHEWABLE TABLET ONE (11:03)
--- NOTE | 2017-10-29 11:18 | RAD REPORT ---
EXAM DESCRIPTION: RAD - Chest Single View - 10/29/2017 11:12 am CLINICAL HISTORY: DYSPNEA Chest pain. COMPARISON: Chest Single View dated 05/13/2017; Chest Single View dated 11/18/2016; CHEST SINGLE VIEW dated 10/08/2013; CHEST SINGLE VIEW dated 04/04/2011 FINDINGS: Portable technique limits examination quality. The lungs are grossly clear. The heart is normal in size. No displaced fractures. IMPRESSION: No acute intrathoracic process suspected.
[2017-10-29 11:25] LABS: Absolute Lymphocytes (CBC) 1.9 K/uL (0.7-4.9); Absolute Monocytes 0.5 K/uL (0.1-1.3); Hematocrit 46.7 % (36.0-45.0); Lymphocytes % 29.3 % (15.3-44.8); MCH 30.7 pg (27.0-35.0); MCV 89.6 fL (80-100); MPV 10.2 fL (7.6-11.3); RBC Red Blood Cell Count 5.21 M/uL (3.86-4.86)
[2017-10-29 11:35] LABS: Protime INR 0.95
[2017-10-29 11:57] LABS: ALT/SGPT 33 U/L (12-78); AST/SGOT 21 U/L (15-37); Albumin 3.9 g/dL (3.4-5.0); Alkaline Phosphatase 81 U/L (45-117); BUN Blood Urea Nitrogen 15 mg/dL (7-18); Bicarbonate 30 mmol/L (21-32); Bilirubin Direct 0.1 mg/dL (0-0.2); Bilirubin Total 0.7 mg/dL (0.2-1.0); CKMB Creatine Kinase MB < 1.0 ng/mL (0.3-3.6); Creatine Phosphokinase 70 U/L (26-192); Glucose Level 96 mg/dL (74-106); Magnesium 2.1 mg/dL (1.8-2.4); NT PRO-BNP 27 pg/mL (<125); Potassium 4.1 mmol/L (3.5-5.1); Protein, Total 7.3 g/dL (6.4-8.2); Sodium Level 139 mmol/L (136-145)
--- NOTE | 2017-10-29 12:46 | EKG ---
Test Date: 2017-10-29 Test Time: 10:29:03 Goring Cutter: AUBREY MEASUREMENT RESULTS: Intervals: Rate: 70 AR: 124 QRSD: 78 QT: 364 QTc: 393 Ryan: P: 25 AR: 124 QRS: -32 T: -27 INTERPRETIVE STATEMENTS: Normal sinus rhythm Left axis deviation Nonspecific ST and T wave abnormality Abnormal ECG Compared to ECG 05/13/2017 07:53:30 Left-axis deviation now present ST (T wave) deviation still present Electronically Signed On 10-29-17 12:45:56 CDT by Dayday Poole
[2017-10-29 13:18] LABS: Urine Blood TRACE (NEG); Urine Glucose NEGATIVE (NEG); Urine Protein NEGATIVE (NEG); Urine Specific Gravity 1.015 (1.005-1.030)
[2017-10-29] MEDS ORDERED: DIPHENHYDRAMINE 50 MG/ML VIAL ONE (13:23)
--- NOTE | 2017-10-29 13:46 | RAD REPORT ---
EXAM DESCRIPTION: CT - Chest For Pe Angio - 10/29/2017 1:35 pm CLINICAL HISTORY: Chest pain. DYSPNEA COMPARISON: No comparisons TECHNIQUE: CT angiogram of the pulmonary arteries was performed with MIP. All CT scans are performed using dose optimization technique as appropriate and may include automated exposure control or mA/KV adjustment according to patient size. FINDINGS: No evidence of pulmonary thromboembolism. No acute aortic finding demonstrated. The lungs are clear. No significant pericardial or pleural fluid. No concerning bony finding. Small benign liver cysts are present. Cholecystectomy. IMPRESSION: No evidence of pulmonary thromboembolism. No acute lung findings.
[2017-10-29] MEDS ORDERED: NA CHLORIDE 0.9% 500 ML ONE (13:53)
[2017-10-29] MEDS ORDERED: NA CHLORIDE 0.9% 1,000 ML ONE (13:53)
--- NOTE | 2017-10-29 15:27 | EDPHYS ---
Physician Documentation [facility] Name: Tracey Rodriguez Age: 62 yrs Sex: Female : 1955 Arrival Date: 10/29/2017 Time: 10:20 Bed 18 Private MD: Jordan Doll V ED Physician Osvaldo Carpenter HPI: 10/29 10:57 This 62 yrs old Female presents to ER via Ambulatory with complaints of Chest snw Pain > 30 y/o, Shortness Of Breath. 10:57 This 62 yrs old Female presents to ER via Ambulatory with complaints of Chest snw Pain > 30 y/o, Shortness Of Breath. 10:57 The patient or guardian reports chest pain that is located primarily in the upper back snw pressure with shortness of breath. Onset: gradually, 2 week(s) ago, and became worse and became persistent. The pain radiates to anterior chest. Associated signs and symptoms: Pertinent positives: lower extremity pain, shortness of breath, Pertinent negatives: abdominal pain, dizziness, headache, nausea, palpitations, recent travel, syncope, vomiting. The chest pain is described as a pressure. Duration: The patient or guardian reports multiple episodes, that wax and wane, with no pattern. Severity of pain: At its worst the pain was moderate. The patient has experienced a previous episode. The patient has been recently seen by a physician: the patient's primary care provider, Dr. Doll with different complaint(s), severe sleep apnea, trouble getting CPAP . Historical: - Allergies: 10:50 anti-inflammatory (all); aj1 10:50 Ciprofloxacin; aj1 10:50 Levaquin; aj1 - Home Meds: 10:50 Nature-Throid Oral [Active]; Clonazepam Oral [Active]; aj1 - PMHx: 10:50 Diverticulitis; Hypoglycemic; Hypothyroidism; UTI; aj1 - PSHx: 10:50 Tubal ligation; Cholecystectomy; Carpal Tunnel Repair; aj1 - Immunization history:: Flu vaccine is not up to date. - Social history:: Smoking status: Patient/guardian denies using tobacco. - Ebola Screening: : Patient denies travel to an Ebola-affected area in the 21 days before illness onset. ROS: 10:56 Eyes: Negative for injury, pain, redness, and discharge, ENT: Negative for injury, snw pain, and discharge, something to right bridge of nose that Dr. Doll ordered a CT to assess Neck: Negative for injury, pain, and swelling. 10:56 Abdomen/GI: Negative for abdominal pain, nausea, vomiting, diarrhea, and constipation, Back: Negative for injury and pain, : Negative for injury, bleeding, discharge, and swelling, Skin: Negative for injury, rash, and discoloration, Neuro: Negative for headache, weakness, numbness, tingling, and seizure. 10:56 Constitutional: Positive for body aches, malaise. 10:56 Cardiovascular: Positive for band like pressure to upper back radiating around. 10:56 Respiratory: Positive for orthopnea, shortness of breath. 10:56 MS/extremity: Positive for muscle cramps. Exam: 10:55 Constitutional: This is a well developed, well nourished patient who is awake, alert, snw and in no acute distress. Head/Face: Normocephalic, atraumatic. Eyes: Pupils equal round and reactive to light, extra-ocular motions intact. Lids and lashes normal. Conjunctiva and sclera are non-icteric and not injected. Cornea within normal limits. Periorbital areas with no swelling, redness, or edema. ENT: Nares patent. No nasal discharge, no septal abnormalities noted. Tympanic membranes are normal and external auditory canals are clear. Oropharynx with no redness, swelling, or masses, exudates, or evidence of obstruction, uvula midline. Mucous membranes moist. Neck: Trachea midline, no thyromegaly or masses palpated, and no cervical lymphadenopathy. Supple, full range of motion without nuchal rigidity, or vertebral point tenderness. No Meningismus. Chest/axilla: Normal chest wall appearance and motion. Nontender with no deformity. No lesions are appreciated. 10:55 Respiratory: Lungs have equal breath sounds bilaterally, clear to auscultation and percussion. No rales, rhonchi or wheezes noted. No increased work of breathing, no retractions or nasal flaring. Abdomen/GI: Soft, non-tender, with normal bowel sounds. No distension or tympany. No guarding or rebound. No evidence of tenderness throughout. Back: No spinal tenderness. No costovertebral tenderness. Full range of motion. Skin: Warm, dry with normal turgor. Normal color with no rashes, no lesions, and no evidence of cellulitis. MS/ Extremity: Pulses equal, no cyanosis. Neurovascular intact. Full, normal range of motion. Neuro: Awake and alert, GCS 15, oriented to person, place, time, and situation. Cranial nerves II-XII grossly intact. Motor strength 5/5 in all extremities. Sensory grossly intact. Cerebellar exam normal. Normal gait. 10:55 Cardiovascular: Rate: normal, Rhythm: regular, Pulses: no pulse deficits are appreciated. 10:55 Psych: Behavior/mood is pleasant, cooperative, anxious. Vital Signs: 10:50 BP 145 / 82; Pulse 83; Resp 18; Temp 98.2(O); Pulse Ox 97% on R/A; Weight 93.89 kg (R); aj1 Height 5 ft. 3 in. (160.02 cm) (R); Pain 4/10; 11:46 BP 136 / 73; Pulse 66; Resp 18; Pulse Ox 98% on R/A; aj1 12:45 BP 120 / 81; Pulse 66; Resp 18; Pulse Ox 99% ; aj1 14:01 BP 128 / 77; Pulse 84; Resp 22; Pulse Ox 97% on R/A; aj1 14:55 BP 128 / 79; Pulse 63; Resp 18; Pulse Ox 97% on R/A; aj1 15:52 BP 127 / 65; Pulse 72; Resp 18; Pulse Ox 99% on R/A; aj1 10:50 Body Mass Index 36.67 (93.89 kg, 160.02 cm) aj MDM: 10:35 Patient medically screened. snw 12:17 HEART Score: History: Moderately Suspicious (1), ECG: Non specific repolarization snw disturbance / LBTB / PM (1), Age: > 45 and < 65 years (1), Risk Factors: 1 or 2 risk factors (1), Troponin: < or = 1 x Normal Limit (0). The patient was given aspirin in the Emergency Department. Data reviewed: vital signs, nurses notes. Data interpreted: Pulse oximetry: on room air is 98 %. Counseling: I had a detailed discussion with the patient and/or guardian regarding: the historical points, exam findings, and any diagnostic results supporting the discharge/admit diagnosis, the presence of at least one elevated blood pressure reading (>120/80) during this emergency department visit, lab results, radiology results. Physician consultation: Jordan Doll MD was called at 12:18, was contacted at 12:18, regarding patient's condition, would like further tests performed, CT scan, chest angio. 12:53 ED course: unable to CT chest with contrast second to allergy, D-dimer added. snw 14:27 Response to treatment: the patient's symptoms have markedly improved after treatment, snw per patient. 10/29 10:44 Order name: Basic Metabolic Panel snw 10/29 10:44 Order name: CBC with Diff snw 10/29 10:44 Order name: Ckmb; Complete Time: 12:13 snw 10/29 10:44 Order name: CPK; Complete Time: 12:13 snw 10/29 10:44 Order name: LFT's; Complete Time: 12:13 snw 10/29 10:44 Order name: Magnesium; Complete Time: 12:13 snw 10/29 10:44 Order name: NT PRO-BNP; Complete Time: 12:13 snw 10/29 10:44 Order name: PT-INR; Complete Time: 11:47 snw 10/29 10:44 Order name: Ptt, Activated; Complete Time: 11:47 snw 10/29 10:44 Order name: Troponin (emerg Dept Use Only); Complete Time: 12:01 snw 10/29 10:44 Order name: TSH; Complete Time: 12:13 snw 10/29 10:44 Order name: Basic Metabolic Panel; Complete Time: 12:13 EDMS 10/29 10:44 Order name: CBC with Automated Diff; Complete Time: 11:47 EDMS 10/29 11:44 Order name: Urine Dipstick--Ancillary (enter results); Complete Time: 13:20 eb 10/29 10:44 Order name: XRAY Chest (1 view); Complete Time: 11:21 snw 10/29 10:44 Order name: EKG; Complete Time: 10:45 snw 10/29 10:44 Order name: Cardiac monitoring; Complete Time: 10:57 snw 10/29 10:44 Order name: EKG - Nurse/Tech; Complete Time: 10:57 snw 10/29 10:44 Order name: IV Saline Lock; Complete Time: 10:57 snw 10/29 11:44 Order name: Urine --Ancillary (enter results); Complete Time: 13:20 eb 10/29 11:59 Order name: T4 Free; Complete Time: 12:13 EDMS 10/29 12:36 Order name: D-Dimer; Complete Time: 12:54 mh5 10/29 13:14 Order name: CT Chest For PE Angio; Complete Time: 13:51 snw 10/29 14:26 Order name: Troponin (emerg Dept Use Only); Complete Time: 15:25 snw 10/29 14:26 Order name: EKG; Complete Time: 14:27 snw 10/29 10:44 Order name: Labs collected and sent; Complete Time: 10:57 snw 10/29 10:44 Order name: O2 Per Protocol; Complete Time: 10:57 snw 10/29 10:44 Order name: O2 Sat Monitoring; Complete Time: 10:57 snw 10/29 10:44 Order name: Urine Dipstick-Ancillary (obtain specimen); Complete Time: 12:24 snw Administered Medications: 11:10 Drug: Aspirin Chewable Tablet 324 mg Route: PO; aj1 14:01 Follow up: Response: No adverse reaction aj1 13:25 Drug: Benadryl 25 mg Route: IVP; Site: left antecubital; ss 14:01 Follow up: Response: No adverse reaction aj1 14:00 Drug: NS 0.9% 500 ml Route: IV; Rate: bolus; Site: right antecubital; aj1 15:30 Follow up: IV Status: Completed infusion; IV Intake: 500ml aj1 15:31 Not Given (Other Intervention Used): NS 0.9% 1000 ml IV at 125 ml/hr continuous aj1 Disposition: 16:05 Co-signature as Attending Physician, Osvaldo Carpenter MD I agree with the assessment and kdr plan of care. Disposition: 10/29/17 15:26 Discharged to Home. Impression: Shortness of breath, Pain to back wall of thorax. - Condition is Stable. - Discharge Instructions: Back Pain, Adult, Nonspecific Chest Pain, Shortness of Breath, Aspirin and Your Heart. - Medication Reconciliation Form, Thank You Letter, Antibiotic Education, Prescription Opioid Use form. - Follow up: Jordan Doll MD; When: 1 - 2 days; Reason: Recheck today's complaints, Continuance of care, Re-evaluation by your physician. Follow up: Emergency Department; When: As needed; Reason: Worsening of condition. Signatures: Dispatcher [employer] [facility] Inge Alan RN RN aj1 Osvaldo Carpenter MD MD [facility] Roula Andrea, DIRECTOR OF RECRUITING-C DIRECTOR OF RECRUITING-Csnw Jailene Perez RN RN ss Corrections: (The following items were deleted from the chart) 12:41 12:17 Chest Angio+CT.RAD.BRZ ordered. [facility] 16:04 15:26 10/29/2017 15:26 Discharged to Home. Impression: Shortness of breath; Pain to aj1 back wall of thorax. Condition is Stable. Forms are Medication Reconciliation Form, Thank You Letter, Antibiotic Education, Prescription Opioid Use. Follow up: Jordan Doll; When: 1 - 2 days; Reason: Recheck today's complaints, Continuance of care, Re-evaluation by your physician. Follow up: Emergency Department; When: As needed; Reason: Worsening of condition. snw
--- NOTE | 2017-10-29 15:27 | ER ---
Nurse's Notes [facility] Name: Tracey Rodriguez Age: 62 yrs Sex: Female : 1955 Arrival Date: 10/29/2017 Time: 10:20 Bed 18 Private MD: Jordan Doll V Diagnosis: Shortness of breath;Pain to back wall of thorax Presentation: 10/29 10:25 Presenting complaint: Patient states: SOB since yesterday morning, then last night she aj1 started to have palpitations, feeling like her heart was racing. She checked her blood pressure and it was 165/102. She has also been having upper back pain that gets worse with the palpitations and is usually relieved with deep breathing but today it has not been getting any better. Reports nausea. Reports cough and congestion. States that she saw Dr. Doll regarding her cough 2 weeks ago and took a Z-Pack, the cough got better and then came right back. Denies dizziness, fever. 10:46 Transition of care: patient was not received from another setting of care. Onset of aj1 symptoms was October 28, 2017. Risk Assessment: Do you want to hurt yourself or someone else? Patient reports no desire to harm self or others. Initial Sepsis Screen: Does the patient meet any 2 criteria? No. Patient's initial sepsis screen is negative. Does the patient have a suspected source of infection? No. Patient's initial sepsis screen is negative. Care prior to arrival: None. 10:46 Method Of Arrival: Ambulatory aj1 10:46 Acuity: ANUJA 3 aj1 Triage Assessment: 10:25 General: Appears in no apparent distress. comfortable, Behavior is calm, cooperative, aj1 appropriate for age. Pain: Complains of pain in thoracic area Pain does not radiate. Pain currently is 4 out of 10 on a pain scale. Quality of pain is described as pressure, Pain began last night Is intermittent. Neuro: Level of Consciousness is awake, alert, obeys commands, Oriented to person, place, time, situation, Gait is steady, Speech is normal. Cardiovascular: Reports nausea, palpitations, shortness of breath, Denies chest pain, lightheadedness, syncope, vomiting, Heart tones S1 S2 present Patient's skin is warm and dry. Rhythm is regular Chest pain is denied. Respiratory: Reports shortness of breath Airway is patent Respiratory effort is even, unlabored, Respiratory pattern is regular, symmetrical, Breath sounds are clear bilaterally. GI: No signs and/or symptoms were reported involving the gastrointestinal system. : No signs and/or symptoms were reported regarding the genitourinary system. Derm: No signs and/or symptoms reported regarding the dermatologic system. Skin is pink, warm \T\ dry. normal. Musculoskeletal: No signs and/or symptoms reported regarding the musculoskeletal system. Circulation, motion, and sensation intact. Historical: - Allergies: 10:50 anti-inflammatory (all); aj1 10:50 Ciprofloxacin; aj1 10:50 Levaquin; aj1 - Home Meds: 10:50 Nature-Throid Oral [Active]; Clonazepam Oral [Active]; aj1 - PMHx: 10:50 Diverticulitis; Hypoglycemic; Hypothyroidism; UTI; aj1 - PSHx: 10:50 Tubal ligation; Cholecystectomy; Carpal Tunnel Repair; aj1 - Immunization history:: Flu vaccine is not up to date. - Social history:: Smoking status: Patient/guardian denies using tobacco. - Ebola Screening: : Patient denies travel to an Ebola-affected area in the 21 days before illness onset. Screenin:53 Abuse screen: Denies threats or abuse. Denies injuries from another. Nutritional aj1 screening: No deficits noted. Tuberculosis screening: No symptoms or risk factors identified. 15:53 Fall Risk None identified. aj1 Assessment: 10:53 Reassessment: See assessment in triage tab. General: Appears in no apparent distress. aj1 comfortable, Behavior is calm, cooperative, appropriate for age. Pain: Complains of pain in thoracic area Pain does not radiate. Pain currently is 4 out of 10 on a pain scale. Quality of pain is described as pressure, Pain began last night. Neuro: 11:46 Reassessment: Patient appears in no apparent distress at this time. No changes from aj1 previously documented assessment. Patient and/or family updated on plan of care and expected duration. Pain level reassessed. Patient is alert, oriented x 3, equal unlabored respirations, skin warm/dry/pink. 12:45 Reassessment: Patient and/or family updated on plan of care and expected duration. Pain aj1 level reassessed. General: Appears in no apparent distress. comfortable, Behavior is calm, cooperative, appropriate for age. Neuro: Level of Consciousness is awake, alert, obeys commands. Cardiovascular: Patient's skin is warm and dry. Rhythm is sinus rhythm. Respiratory: Airway is patent Respiratory effort is even, unlabored, Respiratory pattern is regular, symmetrical. Derm: Skin is pink, warm \T\ dry. normal. 14:01 Reassessment: Patient appears in no apparent distress at this time. No changes from aj1 previously documented assessment. Patient and/or family updated on plan of care and expected duration. Pain level reassessed. Patient is alert, oriented x 3, equal unlabored respirations, skin warm/dry/pink. 14:55 Reassessment: Patient and/or family updated on plan of care and expected duration. Pain aj1 level reassessed. General: Appears in no apparent distress. comfortable, Behavior is calm, cooperative, appropriate for age. Neuro: Level of Consciousness is awake, alert, obeys commands. Cardiovascular: Patient's skin is warm and dry. Rhythm is sinus rhythm. Respiratory: Airway is patent Respiratory effort is even, unlabored, Respiratory pattern is regular, symmetrical. Derm: Skin is pink, warm \T\ dry. normal. Musculoskeletal: Circulation, motion, and sensation intact. 15:52 Reassessment: Patient appears in no apparent distress at this time. No changes from aj1 previously documented assessment. Patient and/or family updated on plan of care and expected duration. Pain level reassessed. Patient is alert, oriented x 3, equal unlabored respirations, skin warm/dry/pink. 15:52 Reassessment: Discharge pending Berta Andrea, GANG BORE OPERATOR coming to talk to the patient. aj1 Vital Signs: 10:50 BP 145 / 82; Pulse 83; Resp 18; Temp 98.2(O); Pulse Ox 97% on R/A; Weight 93.89 kg (R); aj1 Height 5 ft. 3 in. (160.02 cm) (R); Pain 4/10; 11:46 BP 136 / 73; Pulse 66; Resp 18; Pulse Ox 98% on R/A; aj1 12:45 BP 120 / 81; Pulse 66; Resp 18; Pulse Ox 99% ; aj1 14:01 BP 128 / 77; Pulse 84; Resp 22; Pulse Ox 97% on R/A; aj1 14:55 BP 128 / 79; Pulse 63; Resp 18; Pulse Ox 97% on R/A; aj1 15:52 BP 127 / 65; Pulse 72; Resp 18; Pulse Ox 99% on R/A; aj1 10:50 Body Mass Index 36.67 (93.89 kg, 160.02 cm) aj1 ED Course: 10:20 Patient arrived in ED. sb2 10:20 Jordan Doll MD is Private Physician. sb2 10:34 [facility]oul[facility]C [facility]. snw 10:34 Osvaldo Carpenter MD is Attending Physician. snw 10:37 EKG done, by systems protection technician. reviewed by Roula ALMENDAREZ. at1 10:45 Inge Alan RN is Primary Nurse. aj1 10:49 Triage completed. aj1 10:50 Arm band placed on Patient placed in an exam room. aj1 10:53 No provider procedures requiring assistance completed. Initial lab(s) drawn, by me, aj1 sent to lab. Inserted saline lock: 20 gauge in right antecubital area, using aseptic technique. Blood collected. Patient maintains SpO2 saturation greater than 95% on room air. 10:53 Patient has correct armband on for positive identification. radiation monitor on. Pulse aj1 ox on. NIBP on. 11:04 X-ray completed. Portable x-ray completed in exam room. Patient tolerated procedure mh1 well. 11:12 XRAY Chest (1 view) In Process Unspecified. EDMS 11:25 Urine collected: clean catch specimen, clear, brad colored. jp3 13:31 CT completed. Patient tolerated procedure well. Patient moved to CT via wheelchair. sj Patient moved back from CT. 13:35 CT Chest For PE Angio In Process Unspecified. EDMS 14:49 EKG done, by systems protection technician. reviewed by Roula ALMENDAREZ Repeat EKG. at1 14:54 Repeat lab(s) drawn. by me, sent to lab. Flushed IV, discarded 6ml of blood before jp3 drawing repeat Trop. 15:25 Jordan Doll MD is Referral Physician. snw 15:53 IV discontinued, intact, bleeding controlled, No redness/swelling at site. Pressure aj1 dressing applied. Administered Medications: 11:10 Drug: Aspirin Chewable Tablet 324 mg Route: PO; aj1 14:01 Follow up: Response: No adverse reaction aj1 13:25 Drug: Benadryl 25 mg Route: IVP; Site: left antecubital; 14:01 Follow up: Response: No adverse reaction aj1 14:00 Drug: NS 0.9% 500 ml Route: IV; Rate: bolus; Site: right antecubital; aj1 15:30 Follow up: IV Status: Completed infusion; IV Intake: 500ml aj1 15:31 Not Given (Other Intervention Used): NS 0.9% 1000 ml IV at 125 ml/hr continuous aj1 Intake: 15:30 IV: 500ml; Total: 500ml. aj1 Outcome: 15:26 Discharge ordered by . homero 16:03 Discharged to home ambulatory. aj1 16:03 Condition: good 16:03 Discharge instructions given to patient, Instructed on discharge instructions, follow up and referral plans. Demonstrated understanding of instructions, follow-up care. 16:04 Patient left the ED. aj1 Signatures: Dispatcher [employer] EDMS Inge Alan RN RN aj1 Roula Andrea, COMPRESSOR STATIONS SUPERINTENDENT-C COMPRESSOR STATIONS SUPERINTENDENT-Csnw Jaclyn Valle mhGeena Zhou Shelby, RN RN ss Dorcas negron, coach driver EKG Tat1 Camille Piedra2 Avinash George jp3 Corrections: (The following items were deleted from the chart) 10:55 10:46 Presenting complaint: Patient states: SOB since yesterday morning, then last aj1 night she started to have palpitations, feeling like her heart was racing. She checked her blood pressure and it was 165/102. She has also been having upper back pain that gets worse with the palpitations and is usually relieved with deep breathing but today it has not been getting any better. Reports nausea. Reports cough and congestion. States that she saw Dr. Doll regarding her cough 2 weeks ago and took a Z-Pack, the cough got better and then came right back. Denies dizziness, fever. aj1 10:56 10:50 General: Appears in no apparent distress. comfortable, Behavior is calm, aj1 cooperative, appropriate for age, aj1 10:56 10:50 Pain: Complains of pain in thoracic area Pain does not radiate. Pain currently is aj1 4 out of 10 on a pain scale. Quality of pain is described as pressure, Pain began last night Is intermittent, aj1 10:50 Neuro: Level of Consciousness is awake, alert, obeys commands, Oriented to aj1 person, place, time, situation, Gait is steady, Speech is normal, aj1 : 10:50 Cardiovascular: Reports nausea, palpitations, shortness of breath, Denies chest aj1 pain, lightheadedness, syncope, vomiting, Heart tones S1 S2 present Patient's skin is warm and dry. Rhythm is regular Chest pain is denied aj1 : 10:50 Respiratory: Reports shortness of breath Airway is patent Respiratory effort is aj1 even, unlabored, Respiratory pattern is regular, symmetrical, Breath sounds are clear bilaterally. aj1 : 10:50 GI: No signs and/or symptoms were reported involving the gastrointestinal system. aj1 aj1 : 10:50 : No signs and/or symptoms were reported regarding the genitourinary system. aj1aj1 : 10:50 Derm: No signs and/or symptoms reported regarding the dermatologic system. Skin aj1 is pink, warm \T\ dry. normal, aj1 : 10:50 Musculoskeletal: No signs and/or symptoms reported regarding the musculoskeletal aj1 system. Circulation, motion, and sensation intact. aj1
--- NOTE | 2017-10-29 16:52 | EKG ---
Test Date: 2017-10-29 Test Time: 14:43:33 Clinical Radiologist: AUBREY MEASUREMENT RESULTS: Intervals: Rate: 57 [place]: 132 QRSD: 78 QT: 414 QTc: 402 [place]: P: 27 [place]: 132 QRS: -24 T: -23 INTERPRETIVE STATEMENTS: Sinus bradycardia Nonspecific ST and T wave abnormality Abnormal ECG Compared to ECG 10/29/2017 10:29:03 Sinus rhythm no longer present Left-axis deviation no longer present ST (T wave) deviation still present Electronically Signed On 10-29-17 16:51:43 CDT by Dayday Poole
== END 2017-10-29 16:04 | disposition home or self-care (01) ==
LOC: ER 10:19
DX: R06.02 Shortness of breath (principal); R07.89 Other chest pain; Z88.1 Allergy status to other antibiotic agents; Z88.8 Allergy status to other drugs, medicaments and biological substances
CPT/HCPCS: 36415; 71045; 71275; 80048; 80076; 81003; 81025; 82550; 82553; 83735; 83880; 84439; 84443; 84484; 85025; 85379; 85610; 85730; 93005; 96361; 96374; 99285; J7030; Q9967

== ENCOUNTER 2018-01-06 19:09 | Observation (INO) | payer OTHER ==
--- OUTSIDE RECORDS SUMMARY | 2018-01-06 19:12 | XMS REPORT | Clinical Summary ---
:1955 Author Organization [facility] Address [address] [place] [address] Care Team Providers Name Role Phone Carlos [...] Knee effusion, left; Knee effusion, right after 01/05/2017 Family History Medical History Relation Name Comments Heart disease Father Cancer Mother Relation Name Status Comments Father Mother Social History Tobacco Use Types Packs/Day Years Used Date Never Smoker Smokeless Tobacco: Never Used Alcohol Use Drinks/Week oz/Week Comments No Sex Assigned at Date Recorded Not on file Last Filed Vital Signs Vital Sign Reading Time Taken Blood Pressure 146/73 06/05/2017 11:05 PM [facility] Pulse 64 06/05/2017 11:05 PM [facility] Temperature 36.8 C (98.2 F) 06/05/2017 8:39 PM [facility] Respiratory Rate 16 06/05/2017 11:05 PM [facility] Oxygen Saturation 96% 06/05/2017 11:05 PM [facility] Inhaled Oxygen Concentration - - Weight - - Height 160 cm (5' 3") 06/05/2017 8:39 PM [facility] Body Mass Index - - Plan of Treatment Health Maintenance Due Date Last Done Comments CERVICAL CANCER SCREENING 1977 BREAST CANCER SCREENING 2006 COLON CANCER SCREENING 2006 SHINGRIX VACCINE (#1) 2006 ZOSTER VACCINE 2016 INFLUENZA VACCINE 10/28/2017 Procedures Procedure Name Priority Date/Time Associated Comments Diagnosis XR KNEE 3 VW RIGHT STAT 06/05/2017 9:36 Results for this PM [facility] procedure are in the results section. XR ABDOMEN ACUTE INC STAT 06/05/2017 9:35 Results for this CHEST PM [facility] procedure are in the results section. XR KNEE 3 VW LEFT STAT 06/05/2017 9:35 Results for this PM [facility] procedure are in the results section. URINALYSIS STAT 06/05/2017 9:14 Results for this PM [facility] procedure are in the results section. ZZESTIMATED GFR STAT 06/05/2017 9:11 Results for this PM [facility] procedure are in the results section. AMYLASE LEVEL STAT 06/05/2017 9:11 Results for this PM [facility] procedure are in the results section. SEDIMENTATION RATE STAT 06/05/2017 9:11 Results for this PM [facility] procedure are in the results section. HC COMPLETE BLD COUNT STAT 06/05/2017 9:11 Results for this W/AUTO DIFF PM [facility] procedure are in the results section. COMPREHENSIVE STAT 06/05/2017 9:11 Results for this METABOLIC PANEL PM [facility] procedure are in the results section. after 01/05/2017 Results XR Knee 3 Vw Right (06/05/2017 9:36 PM) Narrative Performed At EXAMINATION:XR KNEE 3 VW RIGHT HM [facility] CLINICAL HISTORY:EFFUSION ON X-RAYKNEE COMPARISON:None. IMPRESSION: There is medial compartment narrowing and spurring. No acute abnormality is noted. There may be a small knee joint effusion. [facility]-[id number] Procedure Note Interface, Radiology Results Incoming - 06/05/2017 9:40 PM [facility] EXAMINATION: XR KNEE 3 VW RIGHT CLINICAL HISTORY: EFFUSION ON X-RAY KNEE COMPARISON: None. IMPRESSION: There is medial compartment narrowing and spurring. No acute abnormality is noted. There may be a small knee joint effusion. [facility]-[id number] Performing Organization Address [facility] Phone Number [facility] [address] [place] [address] XR Abdomen Acute Inc Chest (06/05/2017 9:35 [...] with scattered fecal material throughout the colon. [facility]-[id number] Procedure Note Interface, Radiology Results Incoming - 06/05/2017 9:39 PM [facility] Examination: XR ABDOMEN ACUTE INC CHEST Clinical [...] with scattered fecal material throughout the colon. [facility]-[id number] Performing Organization Address [facility] Phone Number [facility] [address] [place] [address] XR Knee 3 Vw Left (06/05/2017 9:35 [...] left knee but no acute abnormality identified. [facility]-[id number] Procedure Note Hm Interface, Radiology Results Incoming - 06/05/2017 9:40 PM [facility] Examination: XR KNEE 3 VW LEFT Clinical [...] left knee but no acute abnormality identified. [facility]-[id number] Performing Organization Address City/[facility]/Zipcode Phone Number [facility] [address] [place] [address] Urinalysis (06/05/2017 9:14 PM) Glucose, UA Negative Negative [facility] [place] Bilirubin, UA Negative Negative DEPARTMENT OF PATHOLOGY AND GENOMIC MEDICINE, [facility] Ketones, UA Negative Negative [facility] [place] Specific gravity, UA =<1.005 1.001 - 1.035 [facility] [place] Blood, UA Trace (A) Negative [facility] [place] pH, UA 6.0 5.0 - 8.5 [facility] [place] Protein, UA Negative Negative [facility] [place] Urobilinogen, UA <2.0 <2.0 DEPARTMENT OF PATHOLOGY AND GENOMIC MEDICINE, [facility] Nitrite, UA Negative Negative [facility] [place] Leukocyte esterase, UA Trace (A) Negative [facility] [place] Color, UA Yellow DEPARTMENT OF PATHOLOGY AND GENOMIC MEDICINE, [facility] Appearance, UA Clear [facility] [place] Specimen Urine Performing Organization Address City/State/Zipcode Phone Number DEPARTMENT OF PATHOLOGY AND [address] [place] [address] [facility] Estimated GFR (06/05/2017 9:11 PM) GFR Non Af Amer 51 (A) mL/min/1.73 m2 [facility] [place] GFR Af Amer 61 mL/min/1.73 m2 DEPARTMENT OF PATHOLOGY Comment: AND GENOMIC MEDICINE, Chronic kidney disease: <60 mL/min/1.73m2 [facility] Kidney failure: <15 mL/min/1.73m2 CENTER The estimated [...] City/State/Zipcode Phone Number DEPARTMENT OF PATHOLOGY AND [address] [place] [address] [facility] Sedimentation rate (06/05/2017 9:11 PM) Sedimentation rate 5 0 - 20 mm/hr [facility] DEPARTMENT OF PATHOLOGY AND GENOMIC MEDICINE Specimen Blood Performing Organization Address City/State/Zipcode Phone Number [facility] DEPARTMENT OF PATHOLOGY AND [address] [place] [address] [facility] CBC with platelet and differential (06/05/2017 9:11 PM) WBC 7.74 4.50 - 11.00 k/uL [facility] [place] RBC 5.38 4.20 - 5.50 m/uL [facility] [place] HGB 15.9 12.0 - 16.0 g/dL [facility] [place] HCT 46.4 37.0 - 47.0 % [facility] [place] MCV 86.2 82.0 - 100.0 fL [facility] [place] MCH 29.6 27.0 - 34.0 pg [facility] [place] MCHC 34.3 31.0 - 37.0 g/dL [facility] [place] RDW - SD 40.8 37.0 - 55.0 fL [facility] [place] MPV 11.1 8.8 - 13.2 fL [facility] [place] Platelet count 240 150 - 400 k/uL [facility] [place] Neutrophils 61.6 39.0 - 69.0 % [facility] [place] Lymphocytes 26.0 25.0 - 45.0 % [facility] [place] Monocytes 11.0 (H) 0.0 - 10.0 % [facility] [place] Eosinophils 0.9 0.0 - 5.0 % [facility] [place] Basophils 0.5 0.0 - 1.0 % [facility] [place] Specimen Blood Performing Organization Address City/State/Zipcode Phone Number DEPARTMENT OF PATHOLOGY AND [address] [place] [address] Amylase level (06/05/2017 9:11 PM) Amylase 34 14 - 97 U/L [facility] [place] Specimen Plasma specimen Performing Organization Address City/State/Zipcode Phone Number DEPARTMENT OF PATHOLOGY AND [address] [place] [address] Comprehensive metabolic panel (06/05/2017 9:11 PM) Sodium 137 128 - 145 mEq/L [facility] [place] Potassium 3.8 3.6 - 5.1 mEq/L [facility]OLOG[facility] [place] CO2 28 18 - 33 mEq/L [facility] [place] Chloride 103 98 - 108 mEq/L [facility] [place] Glucose 99 73 - 118 mg/dL [facility] [place] Calcium 9.7 8.0 - 10.3 mg/dL [facility] [place] BUN 14 7 - 22 mg/dL [facility] [place] Creatinine 1.1 0.6 - 1.2 mg/dL [facility] [place] Alkaline phosphatase 73 42 - 141 U/L [facility] [place] ALT 29 10 - 47 U/L [facility]OLOG[facility] [place] AST 26 11 - 38 U/L [facility] [place] Total bilirubin 1.0 0.2 - 1.6 mg/dL [facility] [place] Albumin 4.0 3.3 - 5.5 g/dL [facility] [place] Protein 7.2 6.4 - 8.1 g/dL [facility] [place] Anion gap 6 (L) 7 - 15 mEq/L DEPARTMENT OF Comment: PATHOLOGY AND GENOMIC Starting from June , anion gap [facility] no longer incorporates potassium. Please note the change. [facility] A/G ratio 1.2 0.7 - 3.8 [facility]OLOG[facility] [place] Specimen Plasma specimen Performing Organization Address City/State/[facility] Phone Number DEPARTMENT OF PATHOLOGY AND [address] [place], [place] [id number] [place] [address] after 01/05/2017 Insurance Payer Benefit Plan / Group Subscriber ID Type Phone Address AETNA AETNA HMO,POS,EPO, MC/EC xxxxxxxxxx HMO [phone] [place] [phone]
--- OUTSIDE RECORDS SUMMARY | 2018-01-06 19:15 | XMS REPORT | Continuity of Care Document ---
:1955 Author Organization Interface Problems Problem Status Onset Classification Date Comments Source Date Reported KNEE PAIN Active [facility] [address] [facility], EARLY Active [facility] 017 [facility] STOMACH PAIN Active [address] Discharge Diagnosis: 09/19/2015 [place] Adult hypothyroidism [address] WEAKNES AND BLURY Active [place] VISION [address] BDMA - NEW PT CONSULT Active [address] BDDC/ Z12.11 SCREENING Active [facility] FOR MALIGNANT ALICIA [address] [place] [address] PAIN IN THE ABDOMEN; Active [facility] AND [address] VITAMIN D DEFICIENCY Active Condition 08/23/2014 015 [facility] DIARRHEA Active Condition 08/23/2014 015 [facility] Group MAMMOGRAM YEARLY Active Condition 08/23/2014 SCREENING 015 Medical Group Diarrhea<sup>1</sup> Active Problem 10/09/2017 Data 015 migrated Medical from [facility] on 10/04/14. [facility], JESSICA [place], [place], [place] Screening Active Problem 10/09/2017 Data mammography<sup>9</sup 015 migrated Medical > from [facility] on 10/04/14. [facility], JESSICA [place], [place], [place] Vitamin D Active Problem 10/09/2017 Data deficiency<sup>12</sup 015 migrated Medical > from [facility] on 10/04/14. [facility], JESSICA [place], [place], [place] MYALGIA Active Condition 08/23/2014 015 [facility] PAIN IN JOINT, Active Condition 08/23/2014 MULTIPLE SITES 015 Medical Group GASTRITIS Active Condition 08/23/2014 015 [facility] Gastritis<sup>3</sup> Active Problem 10/09/2017 Data 015 migrated Medical from [facility] on 10/04/14. [facility], [place] [place], [place], [place] Multiple joint Active Problem 10/09/2017 Data pain<sup>4</sup> 015 migrated Medical from [facility] on 10/04/14. [facility], [place], [place], [place] Muscle Active Problem 10/09/2017 Data pain<sup>5</sup> 015 migrated Medical from [facility] on 10/04/14. [facility], [place] [place], [place], [place] Nausea<sup>6</sup> Active Problem 10/09/2017 Data 015 migrated Medical from [facility] on 10/04/14. [facility], [place] [place], [place], [place] HYPOGLYCEMIA, REACTIVE Active Condition 08/23/2014 015 Medical Group ROUTINE GENERAL Active Condition 08/23/2014 MEDICAL EXAMINATION AT [address] [place] [address] [facility] Group NUMBNESS Active Condition 08/23/2014 015 Medical Group PINWORMS Active Condition 08/23/2014 015 Medical Group Enterobiasis<sup>2</rosenberg Active Problem 10/09/2017 Data p> 015 migrated Medical from [facility] on 10/04/14. [facility], [facility]ICA [place], [place], [place] Numbness<sup>7</sup> Active Problem 10/09/2017 Data 015 migrated Medical from [facility] on 10/04/14. [facility], [place], [place], [place] [place] Reactive Active Problem 10/09/2017 Data hypoglycemia<sup>8</rosenberg 015 migrated Medical p> from [facility] on 10/04/14. [facility], JESSICA [place], [place], [place] BACK PAIN, LUMBAR, Active Condition 08/23/2014 WITH [...] DISEASE Active Condition 08/23/2014 014 Medical Group ROTATOR CUFF SPRAIN Active Condition 08/23/2014 014 Medical Group NAUSEA Inactive Condition 08/23/2014 014 Medical Group MUSCLE STRAIN Active Condition 10/05/2013 014 Medical Group SACROILIITIS Inactive Condition 08/23/2014 [...] 10/09/2017 Data 11</sup> 012 migrated Medical from [facility] on 10/13/14. Medical [place], [place], [place] ASTHMA Active Condition 08/23/2014 Medical Group HEADACHE Inactive Condition 08/23/2014 Medical Group HYPERCHOLESTEROLEMIA Active Condition 08/23/2014 Medical [facility] FAMILY HISTORY OF Active Condition 08/23/2014 ASTHMA Medical Group FH LUNG CANCER Active Condition 08/23/2014 Medical [facility] FH DEPRESSION Active Condition 08/23/2014 Medical [facility] FH DIABETES - DM Active Condition 08/23/2014 Medical [facility] HEART DISEASE Active Condition 08/23/2014 Medical [facility] Hypoglycemia Resolved Problem 10/09/2017 Medical Group,[facility], [place], [place], [place] Obesity Active Problem 10/09/2017 Medical Group,[facility], [place], [place], [place] Medications Medication Details Route Status Patient Ordering Order Source Instructions Provider Date valACYclovir 1 g 1 gm=1 tab, No Longer oral tablet PO, Q8H, X Active 018 Medical 10 day, # Group 30 tab, 1 Refill(s), Pharmacy: [facility] [id number] pregabalin 50 MG 50 mg=1 Active Oral Capsule cap, PO, 018 Medical [Lyrica] TID, # 90 Group cap, 0 Refill(s) valACYclovir 1 g 1 gm=1 tab, No Longer oral tablet PO, Q8H, X Active 018 Medical 7 day, # 21 Group tab, 1 Refill(s), Pharmacy: [facility] [id number] valACYclovir 1 g 1 gm=1 tab, No Longer oral tablet PO, Q8H, X Active 018 Medical 7 day, # 21 Group tab, 1 Refill(s), Pharmacy: [facility] [address] polyethylene 17 gm, PO, No Longer glycol 3350 oral Daily, X 31 Active 018 Medical powder for day, # 527 Group reconstitution gm, 1 Refill(s), Pharmacy: [facility] [id number] benzonatate 100 100 mg=1 Active mg oral capsule cap, PO, 018 Medical TID, do not Group crush or chew, X 10 day, # 30 cap, 0 Refill(s), Pharmacy: [facility] [address] Codeine Phosphate 5 mL, PO, Active 2 MG/ML / Q12H, PRN 018 Medical Guaifenesin 20 cough, X 10 Group MG/ML Oral day, # 100 Solution mL, 0 [Cheratussin] Refill(s) Fluticasone 1 spray, Active propionate 0.05 NASAL, BID, 018 Medical MG/ACTUAT Metered # 16 gm, 2 Group Dose Nasal Rindge Refill(s), Pharmacy: [facility] [address] Azithromycin 5 See Active Day Dose Pack 250 Instruction 018 Medical mg oral tablet s, Take 2 Group tablets by mouth the first day then 1 tablet by mouth days 2-5., X 5 day, # 6 tab, 0 Refill(s), Pharmacy: [facility] [address] clonazePAM 0.5 mg 0.5 mg=1 Active oral tablet, tab, PO, 017 Medical disintegrating BID, # 60 Group tab, 1 Refill(s) EnteraGam EnteraGam, Active [place] See [facility]16 [facility] s, Samples given in clinic on 03/12/16. Lot [id number] exp date 10/15, # 1 box, Refill(s) [...] 30 Center [Levsin] tab, 1 Refill(s), Pharmacy: [facility] [address] Ondansetron 8 MG 8 mg=1 tab, Active [place] Disintegrating PO, TID, 015 Medical Tablet [Zofran] PRN Nausea Center and Vomiting, Dissolve tab under tongue, X 7 day, # 21 tab, 1 Refill(s), Pharmacy: [facility] [address] GoLYTELY oral 240 mL, PO, Active [place] powder for Q10Min, # 1 015 Medical reconstitution ea, 0 Center Refill(s), Pharmacy: [facility] [address] Flagyl 500 mg=1 Active [place] tab, PO, 015 Medical BID, # 14 Center tab, 0 Refill(s) VITAMIN D 1 capsule Active (ERGOCALCIFEROL) weekly x 12 015 Medical [address]85 UNIT CAPS weeks Group OMEPRAZOLE 20 MG Take one Active CPDR capsule by 015 Medical mouth daily Group ONDANSETRON HCL 4 1 tablet Active MH MG TABS every 8 015 Medical hours as Group needed for nausea/vomi ting QSYMIA 3.75-23 MG 1 po qd Active [id number] 015 Medical Group CYCLOBENZAPRINE 1/2-1 po No Longer MH HCL 10 MG TABS TID as Active 015 Medical needed for Group spasms PROMETHAZINE HCL 1 SUPP UT Q No Longer MH 25 MG SUPP 4 TO 6 HRS Active 014 Medical PRN N/V. Group TRAMADOL HCL 50 1 tablet Active MH MG TABS every 12 014 Medical hours as Group needed for pain GABAPENTIN 100 MG 1 capsule No Longer CAPS three times Active 014 Medical a day Group TRAMADOL HCL 50 1 tablet No [...] # 24 tab, 0 Oral Tablet Refill(s) [[place] 5/325] Phenergan 25 mg, 1 Inactive [place] [...] Medical Group OMEPRAZOLE 20 MG Take one No Longer MH CPDR capsule by Active 014 Medical mouth daily Group MELOXICAM 7.5 MG 1 tablet No Longer MH TABS daily as Active 014 Medical needed for Group pain PROMETHAZINE HCL 1-2 tablets No Longer MH 12.5 MG TABS every 6 Active 014 Medical hours as Group needed for nausea OMEPRAZOLE 20 MG Take one Active MH CPDR capsule by 014 Medical mouth daily Group MELOXICAM 7.5 MG 1 tablet Active MH TABS daily as 014 Medical needed for Group pain OMEPRAZOLE 20 MG Take one No Longer MH CPDR capsule by Active 014 Medical mouth daily Group MELOXICAM 7.5 MG 1 tablet No Longer MH TABS daily as Active 014 Medical needed for Group pain MELOXICAM 7.5 MG 1 tablet No Longer MH TABS daily as Active 014 Medical needed for Group pain OMEPRAZOLE 20 MG Take one No Longer MH CPDR capsule by Active 014 Medical mouth daily Group PHENTERMINE HCL 1 tablet in No [...] 500 MG 1 po qd Active MH [id number] 013 Medical Group NULEV 0.125 MG 1 po q 8-12 No Longer MH TBDP prn Active 012 Medical Group ZITHROMAX Z-MADHU Take as No Longer MH 250 MG TABS directed Active 012 Medical [...] Value Reference Date Interpretation Comments Source Range Chest 2 Chest 2 2-VIEW CHEST X-RAY. DATE: 01/05/2018 4:47 PM CDT 01/05 - [facility] views DX views - [place] INDICATION: - J01.90 Acute sinusitis, unspecified Read by: Froylan Durham MD Dictated Date/time: 01/05/18 17:16 Electronically Signed by: Froylan Durham MD 01/05/18 17:20 FINAL REPORT TECHNIQUE: Frontal and lateral views of the chest were performed. COMPARISON:Chest x-ray 09/16/2015, CT abdomen pelvis 03/25/2016 FINDINGS: The lungs are clear without focal mass or consolidation. There are no effusions. The cardiomediastinal silhouette is unchanged. Mild arthrosis of the thoracic aorta. The osseous structure show no significant finding. The visualized abdomen is unremarkable. IMPRESSION: No acute cardiopulmonary disease. 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 In most young, healthy individuals the eGFR will be >90 mL/ min/1.73m2. The eGFR declines with age. An eGFR of 60-89 may be normal in mL/min/1.7 some populations, particularly the elderly, for whom [...] Globulin 3.3 g/dL 2.0 - 4.0 09/15 [place] CHEM PANEL A/G Ratio 1.1 0.7 - 1.6 09/15 [place] CHEM PANEL Bili Total 0.8 mg/dL 0.2 - 1.3 09/15 [place] CHEM PANEL Alk Phos 77 unit/L 39 - 136 09/15 [place] CHEM PANEL AGAP 12.7 meq/L 10.0 - 09/15 [place] 20.0 2016 [place] CHEM PANEL B/C Ratio 18 6 - 25 09/15 [place] CHEM PANEL Albumin Lvl 3.7 g/dL 3.5 - 5.0 09/15 [place] CHEM PANEL ALT 24 unit/L 0 - 65 09/15 [place] CHEM PANEL AST 18 unit/L 0 - 37 09/15 [place] CHEM PANEL Chloride Lvl 108 meq/L 95 - 109 09/15 [place] CHEM PANEL Potassium 3.7 meq/L 3.5 - 5.1 09/15 [place] Lvl [place] CHEM PANEL CO2 28 meq/L 24 - 32 09/15 [place] /2015 [place] CHEM PANEL Calcium Lvl 8.6 mg/dL 8.5 - 10.5 09/15 [place] /2015 [place] CHEM PANEL Sodium Lvl 145 meq/L 135 - 145 09/15 [place] CHEM PANEL Creatinine 0.90 mg/dL 0.50 - 09/15 [place] Lvl 1.40 /2015 [place] CHEM PANEL BUN 16 mg/dL 7 - 22 09/15 [place] CHEM PANEL Glucose Lvl 102 mg/dL 70 - 99 09/15 [place] /2015 [place] HEMATOLOGY WBC 8.8 K/CMM 3.7 - 10.4 09/15 [place] HEMATOLOGY RBC 5.39 M/CMM 4.20 - 09/15 [place] 5.40 [place] HEMATOLOGY MCV 88.0 fL 80.0 - 09/15 [place] 98.0 /2015 [place] HEMATOLOGY Hgb 15.6 g/dL 12.0 - 09/15 [place] 16.0 [place] HEMATOLOGY MCH 29.0 pg 27.0 - 09/15 [place] 31.0 [place] HEMATOLOGY MPV 9.5 fL 7.4 - 10.4 09/15 [place] /2015 [place] HEMATOLOGY Platelet 242 K/CMM 133 - 450 09/15 [place] HEMATOLOGY MCHC 33.0 g/dL 32.0 - 09/15 [place] 36.0 [place] HEMATOLOGY RDW 13.3 % 11.5 - 09/15 [place] 14.5 /2015 [place] HEMATOLOGY Hct 47.5 % 36.0 - 09/15 [place] 48.0 [place] HEMATOLOGY Basophils 0.5 % 0.0 - 1.0 09/15 [place] HEMATOLOGY Eosinophils 1.1 % 0.0 - 4.0 09/15 [place] /2015 [place] HEMATOLOGY Monocytes 6.3 % 2.0 - 12.0 09/15 [place] HEMATOLOGY Segs 54.0 % 45.0 - 09/15 [place] 75.0 /2015 [place] HEMATOLOGY Lymphocytes 38.1 % 20.0 - 09/15 [place] 40.0 [place] HEMATOLOGY Basophils # 0.0 K/CMM 0.0 - 0.2 09/15 [place] HEMATOLOGY Eosinophils 0.1 K/CMM 0.0 - 0.5 09/15 [place] # /2016 [place] HEMATOLOGY Monocytes # 0.6 K/CMM 0.0 - 0.8 09/15 [place] HEMATOLOGY Lymphocytes 3.4 K/CMM 1.0 - 5.5 09/15 [place] # HEMATOLOGY Segs-Bands # 4.7 K/CMM 1.5 - 8.1 09/15 URINE AND UA Mucus None Seen None Seen 09/15 [place] STOOL (09/16/15 5:47 PM) URINE AND UA Bacteria Occasional None Seen 09/15 [place] STOOL /HPF /HPF URINE AND UA Nitrite Negative Negative 09/15 [place] STOOL (09/16/15 5:47 PM) URINE AND UA Glucose Negative Negative 09/15 [place] STOOL (09/16/15 5:47 PM) URINE AND UA Sq Epi Occasional Few /LPF 09/15 [place] STOOL /LPF [facility] URINE AND UA WBC 0-2 /HPF None Seen 09/15 [place] STOOL /HPF URINE AND UA RBC None Seen 0 - 2 09/15 [place] STOOL [facility] (09/16/15 5:47 PM) URINE AND Micro? Performed 09/15 [facility] STOOL [facility] (09/16/15 5:47 PM) URINE AND UA Leuk Est Negative Negative 09/15 [place] STOOL (09/16/15 5:47 PM) URINE AND UA Protein Negative Negative 09/15 [place] STOOL [facility] (09/16/15 5:47 PM) URINE AND UA pH 6.0 5.0 - 8.0 09/15 [place] [facility]OL URINE AND UA Bili Negative Negative 09/15 [place] STOOL *NA* (09/16/15 5:47 PM) URINE AND UA Ketones Negative Negative 09/15 [place] STOOL *NA* (09/16/15 5:47 PM) URINE AND UA 0.2 EU/dL 0.1 - 1.0 09/15 [place] STOOL Urobilinogen [facility] URINE AND UA Blood Trace Negative 09/15 [place] STOOL *ABN* (09/16/15 5:47 PM) URINE AND UA Turbidity Clear Clear 09/15 [place] STOOL (09/16/15 5:47 PM) URINE AND UA Color Yellow Yellow 09/15 [place] STOOL [place] *NA* (09/16/15 5:47 PM) URINE AND UA Spec Grav 1.025 <=1.030 09/15 [place] STOOL [facility] Brain wo Brain wo CLINICAL HISTORY:Syncope. 09/[address] CT AGE: 59 years GENDER: Female Read by: Jose Alberto Sanchez MD Dictated Date/time: 09/16/15 18:20 Electronically Signed [...] HISTORY: Syncope 09/15 - [place] DX DX AGE: 59 years GENDER: Female Read by: [...] OF ABDOMEN AND PELVIS WITH CONTRAST, 02/23/201502/23 [facility] OPID vis w IV is w IV /2014 - [place] contrast CT contrast CT [place] HISTORY: Left [...] diverticulitis. Serology HELICOB IGG 0.6 U/mL 08/23 [facility] Chemistry T4, FREE 0.96 ng/dl 0.76 - 08/22 1.46 Medical [facility] Hematology ESR 1 mm/hr 0 - 20 08/22 [facility] Serology RHONDA Negative 08/22 [facility] URINE AND UA Bacteria Occasional None Seen 11/30 [place] STOOL /HPF /HPF /2013 [facility] URINE AND UA RBC 0-2 /HPF 0 - 2 11/30 [place] STOOL [place] URINE AND UA Sq Epi Few /LPF Few /LPF 11/30 [place] STOOL [facility] URINE AND UA WBC 0-2 /HPF None Seen 11/30 [place] STOOL /HPF [facility] URINE AND UA Bili Negative Negative 11/30 [place] STOOL [facility] *NA* (11/30/13 2:00 PM) URINE AND UA Blood Trace Negative 11/30 [place] STOOL [facility] *ABN* (11/30/13 2:00 PM) URINE AND UA 0.2 EU/dL 0.1 - 1.0 11/30 [place] STOOL Urobilinogen [facility] URINE AND UA pH 6.0 5.0 - 8.0 11/30 [place] STOOL [facility] URINE AND UA Ketones Negative Negative 11/30 [place] STOOL [facility] *NA* (11/30/13 2:00 PM) URINE AND UA Protein Negative Negative 11/30 [place] STOOL Land (11/30/13 2:00 PM) URINE AND UA Glucose Negative Negative 11/30 [place] (11/30/13 2:00 PM) URINE AND UA Turbidity Clear Clear 11/30 [place] (11/30/13 2:00 PM) URINE AND UA Spec Grav 1.020 <=1.030 11/30 Sugar [facility] URINE AND UA Color Yellow Yellow 11/30 [place] *NA* (11/30/13 2:00 PM) URINE AND UA Leuk Est Negative Negative 11/30 [place] STOOL [place] (11/30/13 2:00 PM) URINE AND UA Nitrite Negative Negative 11/30 [place] STOOL [facility] (11/30/13 2:00 PM) CHEM PANEL B/C Ratio 16 6 - 25 11/30 [place] CHEM PANEL AGAP 14.0 meq/L 10.0 - 11/30 [place] 20.0 [facility] CHEM PANEL Globulin 3.9 g/dL 2.0 - 4.0 11/30 [facility] CHEM PANEL A/G Ratio 1.1 0.7 - 1.6 11/30 [place] CHEM PANEL eGFR 71 11/30 1Result Comment: The eGFR is calculated using the CKD-EPI formula. In most young, healthy individuals the eGFR will be >90 mL/ min/1.73m2. The eGFR declines with age. An eGFR of 60-89 may be normal in mL/min/1.7 some populations, particularly the elderly, for whom [...] ALT 31 unit/L 0 - 65 11/30 [place] CHEM PANEL AST 25 unit/L 0 - 37 11/30 [place] CHEM PANEL Alk Phos 93 unit/L 39 - 136 11/30 [place] CHEM PANEL Bili Total 0.9 mg/dL 0.2 - 1.3 11/30 [place] CHEM PANEL Calcium Lvl 9.5 mg/dL 8.5 - 10.5 11/30 [place] CHEM PANEL Total 8.0 g/dL 6.4 - 8.4 11/30 [place] CHEM PANEL Albumin Lvl 4.1 g/dL 3.5 - 5.0 11/30 [place] CHEM PANEL CO2 24 meq/L 24 - 32 11/30 [place] CHEM PANEL Chloride Lvl 104 meq/L 95 - 109 11/30 [place] CHEM PANEL Creatinine 0.9 mg/dL 0.5 - 1.4 11/30 MH [place] Lvl [place] CHEM PANEL Sodium Lvl 138 meq/L 135 - 145 11/30 [place] CHEM PANEL Potassium 4.0 meq/L 3.5 - 5.1 11/30 [place] CHEM PANEL BUN 14 mg/dL 7 - 22 11/30 [place] CHEM PANEL Glucose Lvl 92 mg/dL 70 - 99 11/30 2Interpretive Data: Adult reference range values reflect the clinical guidelines of the [place] [employer]. [place] CHEM PANEL Lipase Lvl 147 unit/L 73 - 393 11/30 [place] CHEM PANEL Amylase Lvl 35 unit/L 25 - 115 11/30 [place] HEMATOLOGY MCHC 34.0 g/dL 32.0 - 11/30 [place] 36.0 [place] HEMATOLOGY RDW 12.7 % 11.5 - 11/30 [place] 14.5 [place] HEMATOLOGY Platelet 236 K/CMM 133 - 450 11/30 [place] HEMATOLOGY MPV 9.6 fL 7.4 - 10.4 11/30 [place] HEMATOLOGY Hgb 16.9 g/dL 12.0 - 11/30 [place] 16.0 [place] HEMATOLOGY WBC 7.1 K/CMM 3.7 - 10.4 11/30 [place] HEMATOLOGY RBC 5.64 M/CMM 4.20 - 11/30 [place] 5.40 /2013 [place] HEMATOLOGY Hct 49.7 % 36.0 - 11/30 [place] 48.0 [place] HEMATOLOGY MCH 29.9 pg 27.0 - 11/30 [place] 31.0 /2013 [facility] HEMATOLOGY MCV 88.0 fL 80.0 - 11/30 [place] 98.0 /2013 [facility] HEMATOLOGY Eosinophils 0.0 K/CMM 0.0 - 0.5 11/30 [place] # /2014 [facility] HEMATOLOGY Segs-Bands # 4.8 K/CMM 1.5 - 8.1 11/30 [place] /2013 [facility] HEMATOLOGY Monocytes # 0.4 K/CMM 0.0 - 0.8 11/30 [place] /2013 [facility] HEMATOLOGY Basophils 0.5 % 0.0 - 1.0 11/30 [place] /2013 [facility] HEMATOLOGY Basophils # 0.0 K/CMM 0.0 - 0.2 11/30 [place] /2013 [facility] HEMATOLOGY Eosinophils 0.7 % 0.0 - 4.0 11/30 [place] [facility] HEMATOLOGY Lymphocytes 1.8 K/CMM 1.0 - 5.5 11/30 [place] # /2013 [facility] HEMATOLOGY Segs 67.7 % 45.0 - 11/30 [place] 75.0 /2013 [facility] HEMATOLOGY Monocytes 5.7 % 2.0 - 12.0 11/30 Sugar [facility] HEMATOLOGY Lymphocytes 25.4 % 20.0 - 11/30 [place] 40.0 /2013 [facility] IMMUNOLOGY CDC HIV 4th Negative Negative 11/30 [place] GEN [facility] (11/30/13 12:35 PM) Gallbladder Gallbladder Gallbladder HIDA scan with ejection fraction. - [place] scan HIDA w scan HIDA w - [facility] meds NM meds NM HISTORY: Abdominal pain. [...] exam. Serology HELICOB IGG 0.6 U/mL 11/07 Medical Group Serology HELICOB IGG 0.6 U/mL 11/07 Medical Group Wind Up Operator PAP SMEAR Normal 03/30 Medical Group Wind Up Operator PAP SMEAR Normal 03/30 Medical Group Wind Up Operator PAP SMEAR Normal 03/30 Medical Group Wind Up Operator PAP SMEAR Normal 03/30 Medical Group Pathology PAP SMEAR Normal 03/30 Medical Group Pathology PAP SMEAR Normal 03/30 Medical Group Vital Signs Vital Sign Value Date Comments Source BMI Calculated 36.57 10/06/2017 Medical Group Weight 93.636 10/06/2017 Medical Group [...] Medical Group Systolic (mm Hg) 143 03/12/2016 [facility] Diastolic (mm Hg) 94 03/12/2016 [facility] Heart Rate 72 03/12/2016 [facility] Weight 90.909 03/12/2016 [facility] BMI Calculated 35.5 03/12/2016 [facility] Height 160.02 cm 03/12/2016 [facility] Respitory Rate 16 03/12/2016 [facility] Respitory Rate 18 09/16/2015 [place] Heart Rate 78 09/16/2015 [place] Systolic (mm Hg) 133 09/16/2015 [place] Diastolic (mm Hg) 75 09/16/2015 [place] BMI Calculated 33.51 09/16/2015 [place] Weight 85.818 09/16/2015 [place] Temperature Oral (F) 98.0 F 09/16/2015 [place] Heart Rate 81 09/16/2015 [place] Respitory Rate 18 09/16/2015 [place] Height 160.02 cm 09/16/2015 [place] Systolic (mm Hg) 155 09/16/2015 [place] Diastolic (mm Hg) 95 09/16/2015 [place] BMI Calculated 31.86 03/14/2015 [facility] Weight 81.591 03/14/2015 [facility] Height 160.02 cm 03/14/2015 [facility] Heart Rate 81 03/14/2015 [facility] Temperature Oral (F) 97.9 F 03/14/2015 [facility] Systolic (mm Hg) 148 03/14/2015 [facility] Diastolic (mm Hg) 88 03/14/2015 [facility] Height 63 08/23/2014 Medical Group Temperature Oral [...] Medical Group Systolic (mm Hg) 139 11/30/2013 [place] Diastolic (mm Hg) 91 11/30/2013 [place] Respitory Rate 16 11/30/2013 [place] Heart Rate 89 11/30/2013 [place] Systolic (mm Hg) 147 11/30/2013 [place] Diastolic (mm Hg) 86 11/30/2013 [place] Heart Rate 88 11/30/2013 [place] Respitory Rate 16 11/30/2013 [place] Weight 96.818 11/30/2013 [place] Height 160.02 cm 11/30/2013 [place] BMI Calculated 37.81 11/30/2013 [place] Temperature Oral (F) 98.2 F 11/30/2013 [place] Respitory Rate 18 11/30/2013 [place] Heart Rate 92 11/30/2013 [place] Diastolic (mm Hg) 92 11/30/2013 [place] Systolic (mm Hg) 152 11/30/2013 [place] Height 63 11/21/2013 [facility] Group Weight 214 [...] 10/25/2013 [facility] Group Heart Rate 80 10/25/2013 [facility] Group Systolic (mm Hg) 137 10/25/2013 Medical Group Diastolic (mm Hg) 69 10/25/2013 Medical Group Weight 215 10/05/2013 Medical Group Temperature Oral (F) 97.7 F 10/05/2013 [facility] Group Heart Rate 91 10/05/2013 [facility] Group Systolic (mm Hg) 141 10/05/2013 Medical Group Diastolic (mm Hg) 84 10/05/2013 Medical Group Temperature Oral (F) 98.3 F 09/01/2013 Medical Group Weight 220 09/01/2013 Medical Group Systolic (mm Hg) 136 09/01/2013 Medical Group Diastolic (mm Hg) 78 09/01/2013 Medical Group Heart Rate 88 09/01/2013 Medical Group Weight 197 12/07/2012 [facility] Temperature Oral (F) 97.4 F 12/07/2012 Medical Group Systolic (mm Hg) 141 12/07/2012 Medical Group Diastolic (mm Hg) 78 12/07/2012 Medical Group Heart Rate 84 12/07/2012 Medical Group Systolic (mm Hg) 133 12/03/2012 [...] 65 07/29/2012 Medical Group Weight 191 04/30/2012 Medical Group Systolic (mm Hg) 119 04/30/2012 [...] Provider Date Date Visit Memorial Lab Report [id number] [facility] 12/03 12/03 [place] 7590 [place] Duran Garcia [facility] Office [id number] [facility] 12/07 12/07 [place] Visit 7040 Sustache /2012 Duran Garcia [facility] Office [id number] [facility] 09/01 09/01 [place] Visit 7020 Sustache /2013 MD Group Radha Mohamud Jr. [facility] Office [id number] [facility] 10/05 10/05 [place] Visit 1090 Sustache /2013 MD Group Radha Mohamud Jr. [facility] Office [id number] [facility] 10/25 10/25 [place] Visit 8880 Sustache MD Radha Mohamud Jr. [facility] Office [id number] [facility] 11/07 11/07 [place] Visit 2060 Sustache /2013 MD Radha Mohamud Jr. [facility] Lab Report [id number] [facility] 11/07 11/07 [place] 2260 Sustache /2013 Duran Garzon Jr., MD Group [facility] Office [id number] [facility] 11/21 11/21 [place] Visit 8980 Sustache /2013 MD Group Radha Mohamud Jr. [facility] [place] [id number] Desean Mosquera 11/30 11/30 [place] Emergency /2013 [facility] Lab [facility] [id number] [facility] 12/01 12/01 [place] 2960 Sustache /2013 MD Radha Mohamud Jr. Group [facility] Office [id number] [facility] 02/13 02/13 [place] Visit 9710 Sustache /2013 MD Radha Mohamud Jr. [facility] Office [id number] [facility] 04/06 04/06 [place] Visit 8760 Sustache /2014 MD Radha Mohamud Jr. [facility] Office [id number] [facility] 08/08 08/08 [place] Visit 9590 Sustache /2014 MD Radha Mohamud Jr. [facility] Office [id number] [facility] 08/22 08/22 [place] Visit 7820 Sustache /2014 MD Radha Mohamud Jr. [facility] Lab Report [id number] [facility] 08/23 08/23 [place] 3890 Sustache /2014 MD Radha Mohamud Jr. [facility] Office [id number] [facility] 08/23 08/23 [place] Visit 3800 Sustache /2014 Duran Garzon Jr., MD Group Group [place] Outpatient [id number] [facility] 01/30 Active [facility] SUSTACHE /2014 [place] [facility] Outpt Diag [id number] Sb 02/23 02/24 [facility] Ann Marie /2014 [place] [facility] Outpatient [id number] Ep[facility]an[facility] 03/14 03/15 [place] Kamron /2014 [facility] Bedded [id number] Ep[facility] 04/30 04/30 [place] Outpatient Kamron /2015 [facility] Outpatient [id number] [facility] 05/17 Active Memorial SUSTACHE /2015 [place] Outpatient [id number] [facility] 07/09 Active [facility] SUSTACHE [place] Outpatient [id number] NADINE LAM 08/22 Active Memorial /2015 [place] Outpatient [id number] CARLOS 09/10 [facility] [place] [id number] Michelle 09/15 09/16 MH [place] Emergency Deena /2015 [place] [facility] Outpatient [id number] CARLOS 10/17 Active [facility] SUSTACHE /2015 [place] Outpatient [id number] CARLOS 11/18 Active [facility] SUSTACHE [place] Outpatient [id number] CARLOS 01/20 Active Memorial SUSTACHE /2015 [place] Outpatient [id number] CARLOS 02/12 Active [facility] SUSTACHE /2015 [facility] Outpatient [id number] Epifanio 03/12 03/13 [facility] [id number] Epifanio 03/25 03/26 [facility] Kamron /2015 [facility] [id number] CARLOS 04/17 Active [facility] SUSTACHE [place] Outpatient [id number] CARLOS 05/15 Active [facility] SUSTACHE /2016 [place] Outpatient [id number] CARLOS 06/03 Active [facility] SUSTACHE /2016 [place] Outpatient [id number] CARLOS 07/30 Active [facility] SUSTACHE [place] Outpatient [id number] CARLOS 08/29 Active [facility] SUSTACHE [place] Outpatient [id number] CARLOS 11/12 Active [facility] SUSTACHE /2016 [place] Outpatient [id number] CARLOS 12/30 Active [facility] SUSTACHE [place] Outpatient [id number] CARLOS 02/23 Active Memorial SUSTACHE [facility] Outpatient [id number] Carlos 02/23 02/24 Primary Sustache /2016 [facility]da [facility] Phone [id number] 03/09 03/11 Primary Message /2016 [facility] Phone [id number] 03/12 03/14 Primary Message /2016 [facility] [place] Outpatient [id number] CARLOS 03/31 Active Memorial SUSTACHE /2017 [facility] Outpatient [id number] Carlos 03/31 04/01 MH Primary Sustache /2017 [facility] Phone [id number] 06/05 06/07 Primary Message /2017 [facility] Emergency [id number] Zeb 06/06 06/06 [place] Delgado /2017 [facility] Outpatient [id number] CARLOS 06/09 [facility] [id number] Carlos 06/09 06/10 Primary Sustache /2017 [facility] Es[facility]da [facility] Phone [id number] 06/15 06/17 Primary Message /2017 [facility] Phone [id number] 06/26 06/28 Primary Message /2017 [facility] [place] Outpatient [id number] CARLOS 06/29 [facility] [id number] Carlos 06/29 06/29 Primary Pre-Reg Sustache /2017 [facility] [place] Outpatient [id number] CARLOS 07/02 [facility] [id number] Carlos 07/02 07/03 Primary Sustache /2017 [facility] Phone [id number] 07/27 07/29 Primary Message /2017 [facility] Phone [id number] 07/28 07/30 Primary Message /2017 [facility] [place] Outpatient [id number] CORTNEY 10/06 Active Memorial ESPINOZA [facility] Outpatient [id number] Carlos 10/06 10/07 Primary Sustache /2017 [facility] [place] Outpatient [id number] CORTNEY 01/05 Active Memorial ESPINOZA [place] Procedures Procedure Code Date Perfomer Comments Source Removal of [id number] 03/30/2013 Medical gallbladder Group Removal of 23277839 03/30/2013 [facility]bladder [facility] Removal of 69911766 03/30/2013 [facility] gallbladder [place] Removal of 34606657 03/30/2013 [place] gallbladder Removal of 64758782 03/30/2013 [facility] [place] gallbladder [place] Removal of 94575916 03/30/2013 [facility] gallbladder colonoscopy 03719 03/30/2008 Normal [facility] mammogram 56874 03/30/2008 Normal Medical Group vaginal Pap smear 97071 03/30/2008 Normal Medical results Group mammogram 56506 03/30/1999 Normal Medical Group Bilateral tubal [id number] Medical ligation Group Carpal tunnel [id number] Medical release Group Bilateral tubal [id number] [place] [facility] Car[facility] tunnel [id number] [place] [facility] Bilateral tubal 380970830 [facility] ligation [place] Carpal tunnel [id number] [facility] release [place] Bilateral tubal [id number] [place] ligation Carpal tunnel [id number] [place] release Bilateral tubal 984019198 [facility] [place] ligation [place] Carpal tunnel [id number] [facility] [place] release [place] Bilateral tubal [id number] [place] ligation Carpal tunnel [id number] [place] release Mammogram 71375630 [place] Mammogram [id number] Medical Group
--- OUTSIDE RECORDS SUMMARY | 2018-01-06 19:16 | XMS REPORT | Continuity of Care Document ---
:1955 Author Organization [facility] Care Team Providers Name Role Phone Silvio Babin MD, Carlos Unavailable Unavailable Insurance Providers Payer name Policy type / Coverage type Policy ID Covered libertarian ID Policy Mueller AETNA (PPO) AETNA (PPO) Encounters Encounter Performer Location Date Lab Report Carlos Anguiano Jr., MD [facility] Dec 03, 2012 [place] Allergies, Adverse Reactions, Alerts Type Substance Reaction [...] Dec 08, 2011 Inactive GLUMETZA 500 MG [id number] 1 po qd Apr 13, 2012 Active [...]
--- OUTSIDE RECORDS SUMMARY | 2018-01-06 19:16 | XMS REPORT | Continuity of Care Document ---
:1955 Author Organization [facility] Care Team Providers Name Role Phone Silvio Babin MD, Carlos Unavailable Unavailable Insurance Providers Payer name Policy type / Coverage type Policy ID Covered green party ID Policy Mueller AETNA (PPO) AETNA (PPO) Encounters Encounter Performer Location Date Office Visit Carlos Anguiano Jr., MD [facility] Nov [place] Allergies, Adverse Reactions, Alerts Type Substance Reaction [...] Dec 08, 2011 Inactive GLUMETZA 500 MG [id number] 1 po qd Apr 13, 2012 Active [...]
--- OUTSIDE RECORDS SUMMARY | 2018-01-06 19:16 | XMS REPORT | Continuity of Care Document ---
:1955 Author Organization [facility] Care Team Providers Name Role Phone Silvio Babin MD, Carlos Unavailable Unavailable Insurance Providers Payer name Policy type / Coverage type Policy ID Covered republican ID Policy Mueller AETNA (PPO) AETNA (PPO) Encounters Encounter Performer Location Date Office Visit Carlos Anguiano Jr., MD [facility] Sep [place] Allergies, Adverse Reactions, Alerts Type Substance Reaction [...]
--- OUTSIDE RECORDS SUMMARY | 2018-01-06 19:16 | XMS REPORT | Continuity of Care Document ---
:1955 Author Organization [facility] Care Team Providers Name Role Phone Silvio Babin MD, Carlos Unavailable Unavailable Insurance Providers Payer name Policy type / Coverage type Policy ID Covered green party ID Policy Mueller AETNA (PPO) AETNA (PPO) Encounters Encounter Performer Location Date Office Visit Carlos Anguiano Jr., MD [facility] Sep [place] Allergies, Adverse Reactions, Alerts Type Substance Reaction [...]
--- OUTSIDE RECORDS SUMMARY | 2018-01-06 19:16 | XMS REPORT | Continuity of Care Document ---
:1955 Author Organization [facility] Care Team Providers Name Role Phone Silvio Babin MD, Carlos Unavailable Unavailable Insurance Providers Payer name Policy type / Coverage type Policy ID Covered alliance party ID Policy Mueller AETNA (PPO) AETNA (PPO) Encounters Encounter Performer Location Date Office Visit Carlos Anguiano Jr., MD [facility] Oct [place] Allergies, Adverse Reactions, Alerts Type Substance Reaction [...]
--- OUTSIDE RECORDS SUMMARY | 2018-01-06 19:16 | XMS REPORT | Continuity of Care Document ---
:1955 Author Organization [facility] Care Team Providers Name Role Phone Silvio Babin MD, Carlos Unavailable Unavailable Insurance Providers Payer name Policy type / Coverage type Policy ID Covered alliance party ID Policy Mueller AETNA (PPO) AETNA (PPO) Encounters Encounter Performer Location Date Office Visit Carlos Anguiano Jr., MD [facility] Aug [place] Allergies, Adverse Reactions, Alerts Type Substance Reaction [...]
--- OUTSIDE RECORDS SUMMARY | 2018-01-06 19:17 | XMS REPORT | Continuity of Care Document ---
:1955 Author Organization [facility] Care Team Providers Name Role Phone Silvio Babin MD, Carlos Unavailable Unavailable Insurance Providers Payer name Policy type / Coverage type Policy ID Covered democrat ID Policy Mueller AETNA (PPO) AETNA (PPO) Encounters Encounter Performer Location Date Office Visit Carlos Anguiano Jr., MD [facility] July [place] Allergies, Adverse Reactions, Alerts Type Substance Reaction [...] PROMETHAZINE HCL 25 MG SUPP 1 SUPP VT Q 4 TO 6 HRS PRN N/V. [...] spasms THYROID COMPOUND Active QSYMIA 3.75-23 MG [id number] 1 po qd August 08, 2014 Active [...]
--- OUTSIDE RECORDS SUMMARY | 2018-01-06 19:17 | XMS REPORT | Continuity of Care Document ---
:1955 Author Organization [facility] Care Team Providers Name Role Phone Silvio Babin MD, Carlos Unavailable Unavailable Insurance Providers Payer name Policy type / Coverage type Policy ID Covered constitution party ID Policy Mueller AETNA (PPO) AETNA (PPO) Encounters Encounter Performer Location Date Office Visit Carlos Anguiano Jr., MD [facility] Mar [place] Allergies, Adverse Reactions, Alerts Type Substance Reaction [...] PROMETHAZINE HCL 25 MG SUPP 1 SUPP TN Q 4 TO 6 HRS PRN N/V. [...]
--- OUTSIDE RECORDS SUMMARY | 2018-01-06 19:17 | XMS REPORT | Continuity of Care Document ---
:1955 Author Organization [facility] Care Team Providers Name Role Phone Silvio Babin MD, Carlos Unavailable Unavailable Insurance Providers Payer name Policy type / Coverage type Policy ID Covered republican ID Policy Mueller AETNA (PPO) AETNA (PPO) Encounters Encounter Performer Location Date Lab Report Carlos Anguiano Jr., MD [facility] Nov 07, 2013 [place] Allergies, Adverse Reactions, Alerts Type Substance Reaction [...]
--- OUTSIDE RECORDS SUMMARY | 2018-01-06 19:17 | XMS REPORT | Continuity of Care Document ---
:1955 Author Organization [facility] Care Team Providers Name Role Phone Silvio Babin MD, Carlos Unavailable Unavailable Insurance Providers Payer name Policy type / Coverage type Policy ID Covered libertarian ID Policy Mueller AETNA (PPO) AETNA (PPO) Encounters Encounter Performer Location Date Office Visit Carlos Anguiano Jr., MD [facility] Oct [place] Allergies, Adverse Reactions, Alerts Type Substance Reaction [...]
--- OUTSIDE RECORDS SUMMARY | 2018-01-06 19:17 | XMS REPORT | Continuity of Care Document ---
:1955 Author Organization [facility] Care Team Providers Name Role Phone Silvio Babin MD, Carlos Unavailable Unavailable Insurance Providers Payer name Policy type / Coverage type Policy ID Covered republican ID Policy Mueller AETNA (PPO) AETNA (PPO) Encounters Encounter Performer Location Date Lab Report Carlos Anguiano Jr., MD [facility] - Nov [place] Allergies, Adverse Reactions, Alerts Type Substance Reaction [...]
--- OUTSIDE RECORDS SUMMARY | 2018-01-06 19:17 | XMS REPORT | Continuity of Care Document ---
:1955 Author Organization [facility] Care Team Providers Name Role Phone Silvio Babin MD, Carlos Unavailable Unavailable Insurance Providers Payer name Policy type / Coverage type Policy ID Covered democrat ID Policy Mueller AETNA (PPO) AETNA (PPO) Encounters Encounter Performer Location Date Office Visit Carlos Anguiano Jr., MD [facility] Jan [place] Allergies, Adverse Reactions, Alerts Type Substance Reaction [...]
--- OUTSIDE RECORDS SUMMARY | 2018-01-06 19:18 | XMS REPORT | Continuity of Care Document ---
:1955 Author Organization [facility] Care Team Providers Name Role Phone Silvio Babin MD, Carlos Unavailable Unavailable Insurance Providers Payer name Policy type / Coverage type Policy ID Covered alliance party ID Policy Mueller AETNA (PPO) AETNA (PPO) Encounters Encounter Performer Location Date Office Visit Carlos Anguiano Jr., MD [facility] July [place] Allergies, Adverse Reactions, Alerts Type Substance Reaction [...] PROMETHAZINE HCL 25 MG SUPP 1 SUPP HI Q 4 TO 6 HRS PRN Mar [...] spasms THYROID COMPOUND Active QSYMIA 3.75-23 MG [id number] 1 po qd August 08, 2014 Active OMEPRAZOLE 20 MG CPDR Take one capsule by mouth August 22, 2014 Active daily ONDANSETRON HCL 4 MG TABS 1 tablet every 8 hours as August 22, 2014 Active needed for nausea/vomiting VITAMIN D (ERGOCALCIFEROL) 70974 1 capsule weekly x 12 weeks August [...]
--- OUTSIDE RECORDS SUMMARY | 2018-01-06 19:18 | XMS REPORT | Continuity of Care Document ---
:1955 Author Organization [facility] Care Team Providers Name Role Phone Silvio Babin MD, Carlos Unavailable Unavailable Insurance Providers Payer name Policy type / Coverage type Policy ID Covered republican ID Policy Mueller AETNA (PPO) AETNA (PPO) Encounters Encounter Performer Location Date Lab Report Carlos Anguiano Jr., MD [facility] August 23, 2014 [place] Allergies, Adverse Reactions, Alerts Type Substance Reaction [...] PROMETHAZINE HCL 25 MG SUPP 1 SUPP MN Q 4 TO 6 HRS PRN Mar [...] spasms THYROID COMPOUND Active QSYMIA 3.75-23 MG [id number] 1 po qd August 08, 2014 Active OMEPRAZOLE 20 MG CPDR Take one capsule by mouth August 22, 2014 Active daily ONDANSETRON HCL 4 MG TABS 1 tablet every 8 hours as August 22, 2014 Active needed for nausea/vomiting VITAMIN D (ERGOCALCIFEROL) 47695 1 capsule weekly x 12 weeks August [...]
--- OUTSIDE RECORDS SUMMARY | 2018-01-06 19:18 | XMS REPORT | Continuity of Care Document ---
:1955 Author Organization [facility] Care Team Providers Name Role Phone Silvio Babin MD, Carlos Unavailable Unavailable Insurance Providers Payer name Policy type / Coverage type Policy ID Covered republican ID Policy Mueller AETNA (PPO) AETNA (PPO) Encounters Encounter Performer Location Date Office Visit Carlos Anguiano Jr., MD [facility] July [place] Allergies, Adverse Reactions, Alerts Type Substance Reaction [...] PROMETHAZINE HCL 25 MG SUPP 1 SUPP ME Q 4 TO 6 HRS PRN N/V. [...] spasms THYROID COMPOUND Active QSYMIA 3.75-23 MG [id number] 1 po qd August 08, 2014 Active [...]
--- OUTSIDE RECORDS SUMMARY | 2018-01-06 19:19 | XMS REPORT ---
:1955 [facility] Address [address] [place] [address] [address] [place] [address] Care Team Providers Name Role Phone Unavailable Unavailable Unavailable Payers Payer Name Policy Type Policy Number Effective Date Expiration Date Problems This patient has no known problems. Allergies, Adverse Reactions, Alerts Allergy Name Allergy Status Severity Reaction(s) Onset Inactive Treating Comments Type Date Date Clinician ciprofloxacin DA Active SV 2017-03 0- 00:00: 00 levofloxacin DA Active SV 2017-03 0- 00:00: 00 ANTI DA Active U 2017-03 INFLAMMATORY PO 0-01 MEDS 00:00: 00 Medications This patient has no known medications.
--- NOTE | 2018-01-06 20:24 | ER ---
Nurse's Notes [facility] Unit Name: Tracey Rodriguez Age: 62 yrs Sex: Female : 1955 Arrival Date: 01/06/2018 Time: 19:13 Bed 6 Private MD: Jordan Doll V Diagnosis: Fever, unspecified;Abdominal tenderness;Nausea;Weakness;Hypokalemia;Diverticular disease of intestine Presentation: 01/06 19:20 Presenting complaint: Patient states: She has had a fever that ranges from 99.1 to 99.5 aj1 for the past 2 weeks. Patient states that she had sinus surgery a week ago, and she is still having sinus pain. Patient reports she is also have lower abdominal pain. Transition of care: patient was not received from another setting of care. Onset of symptoms was 2017. Risk Assessment: Do you want to hurt yourself or someone else? Patient reports no desire to harm self or others. Initial Sepsis Screen: Does the patient meet any 2 criteria? HR > 90 bpm. No. Patient's initial sepsis screen is negative. Does the patient have a suspected source of infection? Yes: Acute abdominal pain. Care prior to arrival: None. 19:20 Method Of Arrival: Ambulatory aj1 19:20 Acuity: ANUJA 3 aj1 Triage Assessment: 19:23 General: Appears in no apparent distress. comfortable, Behavior is calm, cooperative, aj1 appropriate for age. Pain: Complains of pain in left lower quadrant Pain currently is 3 out of 10 on a pain scale. Neuro: Level of Consciousness is awake, alert, obeys commands. Cardiovascular: Patient's skin is warm and dry. Respiratory: Airway is patent Respiratory effort is even, unlabored, Respiratory pattern is regular, symmetrical. GI: Reports nausea. Historical: - Allergies: 19:23 anti-inflammatory (all); aj1 19:23 Ciprofloxacin; aj1 19:23 Levaquin; aj1 - Home Meds: 19:23 Clonazepam Oral [Active]; aj1 - PMHx: 19:23 Diverticulitis; Hypoglycemic; Hypothyroidism; UTI; aj1 - Immunization history:: Flu vaccine is not up to date. - Social history:: Smoking status: Patient/guardian denies using tobacco. - Ebola Screening: : Patient denies travel to an Ebola-affected area in the 21 days before illness onset. - Family history:: not pertinent. Screenin:08 Abuse screen: Denies threats or abuse. Nutritional screening: No deficits noted. tl2 Tuberculosis screening: No symptoms or risk factors identified. Fall Risk None identified. Assessment: 19:30 General: Appears in no apparent distress. uncomfortable, Behavior is calm, cooperative, tl2 appropriate for age. Pain: Complains of pain in left upper quadrant and left lower quadrant Pain does not radiate. Neuro: Level of Consciousness is awake, alert, obeys commands, Oriented to person, place, time, situation. Cardiovascular: Denies chest pain. Respiratory: Airway is patent Respiratory effort is even, unlabored, Respiratory pattern is regular, symmetrical. Respiratory: Reports cough that is hacking. GI: Patient currently denies nausea, vomiting. : No signs and/or symptoms were reported regarding the genitourinary system. Derm: Skin is pink, warm \T\ dry. 20:30 Reassessment: Patient appears in no apparent distress at this time. Patient and/or tl2 family updated on plan of care and expected duration. Pain level reassessed. Patient is alert, oriented x 3, equal unlabored respirations, skin warm/dry/pink. 22:00 Reassessment: Patient appears in no apparent distress at this time. Patient and/or tl2 family updated on plan of care and expected duration. Pain level reassessed. Patient is alert, oriented x 3, equal unlabored respirations, skin warm/dry/pink. 23:09 Reassessment: Patient appears in no apparent distress at this time. Patient and/or tl2 family updated on plan of care and expected duration. Pain level reassessed. Patient is alert, oriented x 3, equal unlabored respirations, skin warm/dry/pink. pt stable and ready for transport to floor. Vital Signs: 19:23 BP 130 / 81; Pulse 91; Resp 18; Temp 98.6; Pulse Ox 99% on R/A; Weight 90.26 kg (R); aj1 Height 5 ft. 3 in. (160.02 cm) (R); Pain 3/10; 22:06 BP 124 / 91; Pulse 70; Resp 16; Pulse Ox 95% ; cb2 22:15 BP 124 / 91; Pulse 70; Resp 17; Pulse Ox 96% on R/A; tl2 23:07 BP 122 / 75; Pulse 65; Resp 18; Pulse Ox 99% on R/A; tl2 19:23 Body Mass Index 35.25 (90.26 kg, 160.02 cm) aj1 ED Course: 19:13 Patient arrived in ED. es 19:13 Jordan Doll MD is Private Physician. es 19:22 Triage completed. aj1 19:23 Arm band placed on Patient placed in an exam room. aj1 19:30 Patient has correct armband on for positive identification. Placed in gown. Bed in low tl2 position. Call light in reach. Side rails up X 1. Adult w/ patient. 19:40 Piter Ravi MD is Attending Physician. ruy 20:06 Inserted saline lock: 22 gauge in left antecubital area, using aseptic technique. Blood tl2 collected. 20:21 Jordan Doll MD is Hospitalizing Provider. [facility] 20:28 Toña Reina RN is Primary Nurse. tl2 20:57 XRAY Chest (1 view) In Process Unspecified. EDMS 21:58 CT completed. Patient tolerated procedure well. Patient moved to CT via wheelchair. Patient moved back from CT. 23:10 No provider procedures requiring assistance completed. Patient admitted, IV remains in tl2 place. Administered Medications: 21:09 Drug: NS 0.9% 1000 ml Route: IV; Rate: 1 bolus; Site: left antecubital; tl2 21:09 Drug: Rocephin - (cefTRIAXone) 1 grams Route: IVPB; Infused Over: 30 mins; Site: left tl2 antecubital; 22:55 Follow up: IV Status: Completed infusion tl2 21:09 Drug: Flagyl 500 mg Volume: 100 ml; Route: IVPB; Rate: 200 ml/hr; Infused Over: 30 tl2 mins; Site: left antecubital; 22:56 Follow up: IV Status: Completed infusion; IV Intake: 100ml tl2 22:55 Drug: NS 0.9% with KCl 20 mEq/L 1000 ml Route: IV; Rate: 125 ml/hr; Site: left tl2 antecubital; 23:13 Follow up: IV Status: Infusion continued upon admission tl2 Intake: 22:56 IV: 100ml; Total: 100ml. tl2 Outcome: 20:23 Decision to Hospitalize by Provider. [facility] 23:10 Admitted to Med/surg accompanied by tech, family with patient, via wheelchair, room 207.tl2 23:10 Condition: stable 23:10 Discharge instructions given to patient, family, Instructed on the need for admit. 23:12 Patient left the ED. tl2 Signatures: Dispatcher [employer] Inge Sommers, RN RN aj1 Piter Ravi MD MD cha Salyer, Jaspreet Garcia Taylor, RN RN tl2 Ilya Noonan [facility]
--- NOTE | 2018-01-06 20:24 | EDPHYS ---
Physician Documentation [facility] Name: Tracey Rodriguez Age: 62 yrs Sex: Female : 1955 Arrival Date: 01/06/2018 Time: 19:13 Bed 6 Private MD: Jordan Doll V ED Physician Piter Ravi HPI: 01/06 20:18 This 62 yrs old Female presents to ER via Ambulatory with complaints of ruy Nausea, Fever. 20:18 The patient presents to the emergency department with nausea, abdominal pain, of the ruy left upper quadrant and left lower quadrant. Onset: The symptoms/episode began/occurred 1 week(s) ago. Possible causes: unknown. The symptoms are aggravated by nothing. The symptoms are alleviated by nothing. Associated signs and symptoms: The patient has no apparent associated signs or symptoms. Severity of symptoms: At their worst the symptoms were mild in the emergency department the symptoms are unchanged. The patient has not experienced similar symptoms in the past. Historical: - Allergies: 19:23 anti-inflammatory (all); aj1 19:23 Ciprofloxacin; aj1 19:23 Levaquin; aj1 - Home Meds: 19:23 Clonazepam Oral [Active]; aj1 - PMHx: 19:23 Diverticulitis; Hypoglycemic; Hypothyroidism; UTI; aj1 - Immunization history:: Flu vaccine is not up to date. - Social history:: Smoking status: Patient/guardian denies using tobacco. - Ebola Screening: : Patient denies travel to an Ebola-affected area in the 21 days before illness onset. - Family history:: not pertinent. ROS: 20:18 Constitutional: Negative for fever, chills, and weight loss, Eyes: Negative for injury, ruy pain, redness, and discharge, ENT: Negative for injury, pain, and discharge, Neck: Negative for injury, pain, and swelling, Cardiovascular: Negative for chest pain, palpitations, and edema, Back: Negative for injury and pain, : Negative for injury, bleeding, discharge, and swelling, MS/Extremity: Negative for injury and deformity, Skin: Negative for injury, rash, and discoloration, Neuro: Negative for headache, weakness, numbness, tingling, and seizure, Psych: Negative for depression, anxiety, suicide ideation, homicidal ideation, and hallucinations, Allergy/Immunology: Negative for hives, rash, and allergies, Endocrine: Negative for neck swelling, polydipsia, polyuria, polyphagia, and marked weight changes. 20:18 Respiratory: Positive for cough, with no reported sputum. 20:18 Abdomen/GI: Positive for abdominal pain, abdominal distension, of the left upper quadrant and left lower quadrant. Exam: 20:18 Constitutional: This is a well developed, well nourished patient who is awake, alert, ruy and in no acute distress. Head/Face: Normocephalic, atraumatic. Eyes: Pupils equal round and reactive to light, extra-ocular motions intact. Lids and lashes normal. Conjunctiva and sclera are non-icteric and not injected. Cornea within normal limits. Periorbital areas with no swelling, redness, or edema. ENT: Nares patent. No nasal discharge, no septal abnormalities noted. Tympanic membranes are normal and external auditory canals are clear. Oropharynx with no redness, swelling, or masses, exudates, or evidence of obstruction, uvula midline. Mucous membranes moist. Neck: Trachea midline, no thyromegaly or masses palpated, and no cervical lymphadenopathy. Supple, full range of motion without nuchal rigidity, or vertebral point tenderness. No Meningismus. Chest/axilla: Normal chest wall appearance and motion. Nontender with no deformity. No lesions are appreciated. Cardiovascular: Regular rate and rhythm with a normal S1 and S2. No gallops, murmurs, or rubs. Normal PMI, no JVD. No pulse deficits. Respiratory: Lungs have equal breath sounds bilaterally, clear to auscultation and percussion. No rales, rhonchi or wheezes noted. No increased work of breathing, no retractions or nasal flaring. Back: No spinal tenderness. No costovertebral tenderness. Full range of motion. Female : Normal external genitalia. Skin: Warm, dry with normal turgor. Normal color with no rashes, no lesions, and no evidence of cellulitis. MS/ Extremity: Pulses equal, no cyanosis. Neurovascular intact. Full, normal range of motion. Neuro: Awake and alert, GCS 15, oriented to person, place, time, and situation. Cranial nerves II-XII grossly intact. Motor strength 5/5 in all extremities. Sensory grossly intact. Cerebellar exam normal. Normal gait. Psych: Awake, alert, with orientation to person, place and time. Behavior, mood, and affect are within normal limits. 20:18 Abdomen/GI: Inspection: abdomen appears normal, Bowel sounds: normal, Palpation: mild abdominal tenderness, moderate abdominal tenderness, in the left upper quadrant and left lower quadrant. Vital Signs: 19:23 BP 130 / 81; Pulse 91; Resp 18; Temp 98.6; Pulse Ox 99% on R/A; Weight 90.26 kg (R); aj1 Height 5 ft. 3 in. (160.02 cm) (R); Pain 3/10; 22:06 BP 124 / 91; Pulse 70; Resp 16; Pulse Ox 95% ; cb2 22:15 BP 124 / 91; Pulse 70; Resp 17; Pulse Ox 96% on R/A; tl2 23:07 BP 122 / 75; Pulse 65; Resp 18; Pulse Ox 99% on R/A; tl2 19:23 Body Mass Index 35.25 (90.26 kg, 160.02 cm) aj1 MDM: 19:41 Patient medically screened. [facility] 20:24 Data reviewed: vital signs, nurses notes, lab test result(s), EKG, radiologic studies, [facility] CT scan, plain films. 01/06 20:17 Order name: Basic Metabolic Panel [facility] 01/06 20:17 Order name: CBC with Diff [facility] 01/06 20:17 Order name: LFT's [facility] 01/06 20:17 Order name: Magnesium [facility] 01/06 20:17 Order name: NT PRO-BNP [facility] 01/06 20:17 Order name: PT-INR [facility] 01/06 20:17 Order name: Troponin (emerg Dept Use Only); Complete Time: 21:54 [facility] 01/06 20:17 Order name: Lipase; Complete Time: 21:54 [facility] 01/06 20:17 Order name: Blood Culture Adult (2) [facility] 01/06 20:17 Order name: Urine Culture [facility] 01/06 20:17 Order name: Procalcitonin; Complete Time: 21:54 [facility] 01/06 20:18 Order name: Basic Metabolic Panel; Complete Time: 21:54 EDMS 01/06 20:18 Order name: CBC with Automated Diff; Complete Time: 21:54 EDMS 01/06 20:18 Order name: Liver (Hepatic) Function; Complete Time: 21:54 EDMS 01/06 20:18 Order name: Magnesium; Complete Time: 21:54 [facility] 01/06 20:18 Order name: NT PRO-BNP; Complete Time: 21:54 [facility] 01/06 20:18 Order name: Protime (+INR); Complete Time: 21:54 [facility] 01/06 20:23 Order name: Flu; Complete Time: 21:54 [facility] 01/06 20:46 Order name: Basic Metabolic Panel [facility] 01/06 20:46 Order name: Basic Metabolic Panel [facility] 01/06 20:46 Order name: CBC with Automated Diff [facility] 01/06 20:46 Order name: CBC with Automated Diff [facility] 01/06 20:46 Order name: Lipase [facility] 01/06 20:46 Order name: Lipase [facility] 01/06 20:46 Order name: Liver (Hepatic) Function [facility] 01/06 20:46 Order name: Liver (Hepatic) Function [facility] 01/06 21:44 Order name: Urine Dipstick--Ancillary (enter results) mn 01/06 21:44 Order name: Urine --Ancillary (enter results) mn 01/06 22:11 Order name: Urine --Ancillary; Complete Time: 22:22 [facility] 01/06 22:11 Order name: Urine Dipstick-Ancillary; Complete Time: 22:22 [facility] 01/06 20:17 Order name: XRAY Chest (1 view); Complete Time: 21:54 [facility] 01/06 20:17 Order name: EKG; Complete Time: 20:18 [facility] 01/06 20:17 Order name: Cardiac monitoring; Complete Time: 20:46 [facility] 01/06 20:17 Order name: EKG - Nurse/Tech; Complete Time: 21:10 [facility] 01/06 20:17 Order name: IV Saline Lock; Complete Time: 20:46 [facility] 01/06 20:17 Order name: Labs collected and sent; Complete Time: 20:46 [facility] 01/06 20:17 Order name: O2 Per Protocol; Complete Time: 20:46 [facility] 01/06 20:17 Order name: O2 Sat Monitoring; Complete Time: 20:46 [facility] 01/06 20:17 Order name: Urine Dipstick-Ancillary (obtain specimen); Complete Time: 20:58 [facility] 01/06 20:17 Order name: CT Abd/Pelvis - W/Contrast [facility] 01/06 20:46 Order name: NPO [facility] 01/06 22:12 Order name: CT; Complete Time: 22:22 EDMS Administered Medications: 21:09 Drug: NS 0.9% 1000 ml Route: IV; Rate: 1 bolus; Site: left antecubital; tl2 21:09 Drug: Rocephin - (cefTRIAXone) 1 grams Route: IVPB; Infused Over: 30 mins; Site: left tl2 antecubital; 22:55 Follow up: IV Status: Completed infusion tl2 21:09 Drug: Flagyl 500 mg Volume: 100 ml; Route: IVPB; Rate: 200 ml/hr; Infused Over: 30 tl2 mins; Site: left antecubital; 22:56 Follow up: IV Status: Completed infusion; IV Intake: 100ml tl2 22:55 Drug: NS 0.9% with KCl 20 mEq/L 1000 ml Route: IV; Rate: 125 ml/hr; Site: left tl2 antecubital; 23:13 Follow up: IV Status: Infusion continued upon admission tl2 Disposition: 01/06/18 20:23 Hospitalization ordered by Jordan Doll for Observation. Preliminary diagnosis are Fever, unspecified, Abdominal tenderness, Nausea, Weakness, Hypokalemia, Diverticular disease of intestine. - Bed requested for Telemetry/MedSurg (observation). - Status is Observation. tl2 - Condition is Stable. - Problem is new. - Symptoms are unchanged. UTI on Admission? No Signatures: Dispatcher [employer] [facility] Inge Alan RN RN aj1 Jaclyn Webb RN RN mw Anderson, Corey, MD MD cha Knox, Taylor RN RN tl2 Corrections: (The following items were deleted from the chart) 21:02 20:23 Hospitalization Ordered by Jordan Doll MD for Observation. Preliminary diagnosis mw is Fever, unspecified; Abdominal tenderness; Nausea; Weakness. Bed requested for Telemetry/MedSurg (observation). Status is Observation. Condition is Stable. Problem is new. Symptoms are unchanged. UTI on Admission? No. ruy 22:23 21:02 01/06/2018 20:23 Hospitalization Ordered by Jordan Doll MD for Observation. ruy Preliminary diagnosis is Fever, unspecified; Abdominal tenderness; Nausea; Weakness. Bed requested for Telemetry/MedSurg (observation). Status is Observation. Condition is Stable. Problem is new. Symptoms are unchanged. UTI on Admission? No. juan luis 23:12 22:23 01/06/2018 20:23 Hospitalization Ordered by Jordan Doll MD for Observation. tl2 Preliminary diagnosis is Fever, unspecified; Abdominal tenderness; Nausea; Weakness; Hypokalemia; Diverticular disease of intestine. Bed requested for Telemetry/MedSurg (observation). Status is Observation. Condition is Stable. Problem is new. Symptoms are unchanged. UTI on Admission? No. ruy
[2018-01-06] MEDS ORDERED: MORPHINE 4 MG/ML SYR IV PRN (20:43)
[2018-01-06] MEDS ORDERED: ONDANSETRON 4 MG/2 ML VIAL IV PRN (20:43)
[2018-01-06] MEDS ORDERED: ACETAMINOPHEN 500 MG TAB PO PRN (20:43)
[2018-01-06 20:55] LABS: Absolute Lymphocytes (CBC) 1.9 K/uL (0.7-4.9); Absolute Monocytes 0.7 K/uL (0.1-1.3); Absolute Neutrophil 3.4 K/uL (1.8-8.0); Basophils % 1.1 % (0-1.3); Eosinophils % 2.2 % (0-4.4); Hematocrit 41.9 % (36.0-45.0); Lymphocytes % 30.5 % (15.3-44.8); MCH 30.6 pg (27.0-35.0); MPV 10.3 fL (7.6-11.3); Monocytes % 10.7 % (3.3-12.3); RBC Red Blood Cell Count 4.76 M/uL (3.86-4.86)
[2018-01-06] MEDS ORDERED: CEFTRIAXONE 1 GM/NS 50 ML 1 GM/50 ML BAG IV SCH (21:00)
[2018-01-06] MEDS: NA CHLORIDE 0.9% 1,000 ML IV SCH (21:00)
[2018-01-06] MEDS ORDERED: D5 0.45 NS 1,000 ML IV SCH (21:00)
--- NOTE | 2018-01-06 21:03 | RAD REPORT ---
EXAM DESCRIPTION: RAD - Chest Single View - 01/06/2018 8:57 pm CLINICAL HISTORY: Cough;Abdominal distention Chest pain. COMPARISON: Chest Single View dated 10/29/2017; Chest Single View dated 05/13/2017; Chest Single View d ated 11/18/2016; CHEST SINGLE VIEW dated 10/08/2013 FINDINGS: Portable technique limits examination quality. The lungs are grossly clear. The heart is normal in size. No displaced fractures. IMPRESSION: No acute intrathoracic process suspected.
[2018-01-06] MEDS ORDERED: NA CHLORIDE 0.9% 1,000 ML ONE (21:09)
[2018-01-06] MEDS ORDERED: CEFTRIAXONE/SWI 1gm 1 GM/10 ML SYR ONE (21:10)
[2018-01-06] MEDS ORDERED: METRONIDAZOLE 500mg IVPB 500 MG/100 ML BAG IV ONE (21:10)
[2018-01-06 21:12] LABS: ALT/SGPT 38 U/L (12-78); AST/SGOT 22 U/L (15-37); Albumin 3.8 g/dL (3.4-5.0); Alkaline Phosphatase 76 U/L (45-117); BUN Blood Urea Nitrogen 6 mg/dL (7-18); Bicarbonate 26 mmol/L (21-32); Bilirubin Direct 0.2 mg/dL (0-0.2); Bilirubin Total 0.6 mg/dL (0.2-1.0); Glucose Level 121 mg/dL (74-106); Lipase 188 U/L (73-393); NT PRO-BNP 18 pg/mL (<125); Potassium 3.2 mmol/L (3.5-5.1); Protein, Total 7.2 g/dL (6.4-8.2); Sodium Level 141 mmol/L (136-145); Troponin (Emerg Dept Use Only) < 0.02 ng/mL (0.0-0.045)
[2018-01-06 22:11] LABS: Urine Blood TRACE (NEG); Urine Glucose NEGATIVE (NEG); Urine Protein NEGATIVE (NEG); Urine Specific Gravity 1.025 (1.005-1.030)
--- NOTE | 2018-01-06 22:11 | RAD REPORT ---
EXAM DESCRIPTION: CT - Abdomen Pelvis Wo Contrast - 01/06/2018 9:58 pm CLINICAL HISTORY: Abdominal pain. LLQ ABD PAIN COMPARISON: Abdomen Pelvis W Contrast dated 08/21/2016 TECHNIQUE: CT imaging of the abdomen and pelvis was performed without contrast. Solid organ and vasc ular assessment is limited due to lack of IV contrast. All CT scans are performed using dose optimization technique as appropriate and may include automated exposure control or mA/KV adjustment according to patient size. FINDINGS: The lower lung harrison are clear. Benign liver cysts are present. No aggressive liver mass or biliary dilatation. Cholecystectomy clips are seen.The spleen, pancreas and adrenal glands are normal. Parapelvic cysts are present bilaterall y without obstructing calculus. No bowel obstruction, free air, free fluid or abscess. Prominent colonic diverticulosis is present wi thout diverticulitis. The appendix is normal. No fracture seen.Minimal anterolisthesis of L5 on S1. IMPRESSION: Prominent colonic diverticulosis is seen without evidence of acute diverticulitis. A limited non-contrast examination was performed as detailed.
[2018-01-06] MEDS ORDERED: NS KCL 20MEQ 1,000 ML IV ONE (22:25)
[2018-01-07] MEDS: FAMOTIDINE 20 MG/2 ML VIAL IV SCH ×2 (00:37→08:49)
[2018-01-07] MEDS: NA CHLORIDE 0.9% 1,000 ML IV SCH (05:04)
[2018-01-07] MEDS: METRONIDAZOLE 500mg IVPB 500 MG/100 ML BAG IV SCH ×2 (05:05)
[2018-01-07] MEDS ORDERED: INFLUENZA VACCINE (for 3y+) 0.5 ML DOSE IMVAC ONE (06:00)
[2018-01-07 06:03] LABS: Absolute Lymphocytes (CBC) 1.8 K/uL (0.7-4.9); Absolute Monocytes 0.7 K/uL (0.1-1.3); Absolute Neutrophil 2.7 K/uL (1.8-8.0); Basophils % 0.9 % (0-1.3); Eosinophils % 2.5 % (0-4.4); Hematocrit 36.3 % (36.0-45.0); Lymphocytes % 33.3 % (15.3-44.8); MCH 30.9 pg (27.0-35.0); MCV 87.4 fL (80-100); MPV 9.9 fL (7.6-11.3); Monocytes % 12.5 % (3.3-12.3); RBC Red Blood Cell Count 4.15 M/uL (3.86-4.86)
[2018-01-07 06:16] LABS: Albumin 3.1 g/dL (3.4-5.0); Bilirubin Direct 0.1 mg/dL (0-0.2); Bilirubin Total 0.6 mg/dL (0.2-1.0); Potassium 3.5 mmol/L (3.5-5.1); Protein, Total 5.8 g/dL (6.4-8.2)
--- NOTE | 2018-01-07 07:53 | EKG ---
Test Date: 2018-01-06 Test Time: 21:08:37 Personnel Research Psychologist: KHADIJAH MEASUREMENT RESULTS: Intervals: Rate: 69 DC: 128 QRSD: 78 QT: 374 QTc: 400 [place]: P: 28 DC: 128 QRS: -23 T: -26 INTERPRETIVE STATEMENTS: Normal sinus rhythm Nonspecific T wave abnormality Abnormal ECG Compared to ECG 10/29/2017 14:43:33 T-wave abnormality now present Sinus bradycardia no longer present ST (T wave) deviation no longer present Electronically Signed On 01-07-18 07:53:11 CDT by Dayday Poole
[2018-01-07] MEDS ORDERED: CEFTRIAXONE/SWI 1gm 1 GM/10 ML SYR IV SCH (09:00)
--- NOTE | 2018-01-07 21:39 | P.SSS ---
Patient History Date of Service: 01/07/18 Reason for admission: NAUSEA, ABDOMEN PAIN History of Present Illness: MRS. MARSH HAS HAD MANY CHRONIC COMPLIANTS ABOUT HER GI TRACT OVER LAST FEW MONTHS. SHE HAS BEEN TO GI DOCTORS WITHOUT ANY HELP. SHE ONCE AGAIN HAS VAGUE PAIN, NAUSEA AND REPORTS TO ER. DR. SIMMONS ADMITS HER. HER CT SCAN HAS DIVERTICULOSIS BUT NO ACUTE FINDINGS. HER LAB IS NOT REMARKABLE. SHE FELT GREAT THIS AM AND WANTED TO GO HOME . SHE IS VERY STABLE SO I SENT HER HOME ON ORAL ABX CEFTIN AND PRISOLEC. I TOLD HER THAT LOCAL GI HAS NOT RULED OUT IBD YET. I WILL SEND HER TO [facility] IN [place] FOR IBD. Allergies NSAIDS (Non-Steroidal Anti-Inflamma Allergy (Mild, Verified 01/06/18 23:52) Unknown ciprofloxacin Allergy (Verified 01/07/18 00:17) Unknown iodine Allergy (Verified 01/07/18 00:17) Unknown levofloxacin [From Levaquin] Allergy (Verified 01/07/18 00:17) Unknown Home Medications: Pantoprazole [Protonix Tab] 40 mg PO DAILY 01/06/18 Selenium 200 mcg PO BID 01/06/18 Zinc Gluconate [Zinc] 30 mg PO BID 01/06/18 Cefuroxime [Ceftin] 250 mg PO BID #14 tab 01/07/18 - Past Medical/Surgical History Has patient received pneumonia vaccine in the past: No Diabetic: No -: Hypothyroidism -: Generalized weakness -: Hypothyroidism -: Frequent UTI -: Cholecystectomy -: Tubal Ligation -: Carpal Tunnel repair -: sinus surgery - Family History Mother -: Cancer Father -: Heart disease, Stroke Brother -: Cancer - Social History Smoking Status: Never smoker Alcohol use: No CD- Drugs: No Caffeine use: No Place of Residence: Home Review of Systems 10-point ROS is otherwise unremarkable Physical Examination - Vital Signs Temperature: 97.9 F Blood Pressure: 137/81 Pulse: 63 Respirations: 18 Pulse Ox (%): 95 - Physical Exam General: Alert, In no apparent distress HEENT: Atraumatic, PERRLA, Mucous membr. moist/pink, EOMI, Sclerae nonicteric Neck: Supple, 2+ carotid pulse no bruit, No LAD, Without JVD or thyroid abnormality Respiratory: Clear to auscultation bilaterally, Normal air movement Cardiovascular: Regular rate/rhythm, Normal S1 S2 Gastrointestinal: Normal bowel sounds, No tenderness Musculoskeletal: No tenderness Integumentary: No rashes Neurological: Normal gait, Normal speech, Normal strength at 5/5 x4 extr, Normal tone, Normal affect Lymphatics: No axilla or inguinal lymphadenopathy - Studies Microbiology Data (last 24 hrs): 01/06/18 20:38 Nasopharnyx Influenza Type A Antigen Screen - Final 01/06/18 20:38 Nasopharnyx Influenza Type B Antigen Screen - Final - Diagnosis (Problem(s)) (1) Diffuse abdominal pain Status: Chronic Plan: NON SPECIFIC, NON DIAGNOSTIC SYMPTOM GRIMES NEGATIVE MANY TIMES MANY VISITS TO ER. SECOND OPINION NO DIVERTICULITIS JUST DIVERTICULOSIS. DETAILS ABOVE. (2) Nausea Onset Date: 01/07/18 Status: Acute - Disposition Disposition: ROUTINE DISCHARGE Condition: FAIR
== END 2018-01-07 09:35 | disposition home or self-care (01) ==
LOC: ER 19:09 → ERHOLD 20:41 → 2ND 22:13
PROVIDERS: ADMIT Internal Medicine; ATTEND Internal Medicine
DX: R11.0 Nausea (principal); R10.9 Unspecified abdominal pain; E03.9 Hypothyroidism, unspecified; K57.90 Diverticulosis of intestine, part unspecified, without perforation or abscess without bleeding; Z88.0 Allergy status to penicillin
CPT/HCPCS: 36415; 71045; 74176; 80048; 80076; 81003; 81025; 83690; 83735; 83880; 84145; 84484; 85025; 85610; 87040; 87086; 87088; 87804; 93005; 96365; 96366; 96368; 99285; G0378; J0696; J2405; J7030

== ENCOUNTER 2018-06-19 20:33 | Emergency (ER) | payer OTHER ==
--- OUTSIDE RECORDS SUMMARY | 2018-06-19 20:35 | XMS REPORT | Clinical Summary ---
:1955 Author Organization [facility] Address [address] [place] [address] Care Team Providers Name Role Phone Carlos Anguiano MD Primary Care Provider Allergies Active Allergy Reactions Severity Noted Date Comments Ciprofibrate Swelling 04/08/2016 Ciprofloxacin 06/05/2017 Levofloxacin Swelling 04/08/2016 Nsaids (Non-Steroidal Anti-Inflammatory Drug) Swelling 04/08/2016 Sulfa (Sulfonamide Antibiotics) 06/05/2017 Medications Medication Sig Dispensed Refills Start Date End Date Status ARMOUR THYROID 30 mg TK 1 T PO QD. 1 01/30/2016 Active tablet promethazine Take 1 tablet (25 30 tablet 0 06/05/2017 07/05/2017 (PHENERGAN) 25 MG mg total) by tablet mouth every 6 (six) hours as needed for nausea or vomiting for up to 30 days. diclofenac Apply topically 4 1 Tube 0 06/05/2017 07/05/2017 (VOLTAREN) 1 % gel (four) times a day for 30 days. Active Problems Not on file Family History Medical History Relation Name Comments Heart disease Father Cancer Mother Relation Name Status Comments Father Mother Social History Tobacco Use Types Packs/Day Years Used Date Never Smoker Smokeless Tobacco: Never Used Alcohol Use Drinks/Week oz/Week Comments No Sex Assigned at Date Recorded Not on file Job Start Date Occupation Industry Not on file Not on file Not on file Travel History Travel Start Travel End No recent travel history available. Last Filed Vital Signs Not on file Plan of Treatment Health Maintenance Due Date Last Done Comments CERVICAL CANCER SCREENING 1977 BREAST CANCER SCREENING 2006 COLON CANCER SCREENING 2006 SHINGLES VACCINES (#1) 2006 INFLUENZA VACCINE 10/28/2017 Results Not on fileafter 06/18/2017 Insurance Payer Benefit Plan / Group Subscriber ID Type Phone Address AETNA A[employer]NA HMO,POS,EPO, MC/EC xxxxxxxxxx HMO Advance Directives Patient has advance care planning documents on file. For more information, please contact:Juancarlos [id number] [place] [address]
--- OUTSIDE RECORDS SUMMARY | 2018-06-19 20:40 | XMS REPORT | Continuity of Care Document ---
:1955 Author Organization Interface Problems Problem Status Onset Classification Date Comments Source Date Reported KNEE PAIN Active [facility] [address] BDSD-NAUSEA, EARLY Active [facility] 017 [facility] STOMACH PAIN Active [address] Discharge Diagnosis: 09/19/2015 [place] Adult hypothyroidism [address] WEAKNES AND BLURY Active [facility] VISION [address] [place] BDSD - NEW PT CONSULT Active [address] BDDC/ Z12.11 SCREENING Active [facility] FOR MALIGNANT ALICIA [address] [place] [address] PAIN IN THE ABDOMEN; Active [facility] AND [address] VITAMIN D DEFICIENCY Active Condition 08/23/2014 015 [facility] DIARRHEA Active Condition 08/23/2014 015 [facility] MAMMOGRAM YEARLY Active Condition 08/23/2014 SCREENING 015 [facility] Group Diarrhea<sup>1</sup> Resolved Problem 06/20/2018 Data 015 migrated Medical from [facility], on 10/04/14. [facility], JESSICA [place] Screening Active Problem 06/20/2018 Data mammography<sup>9</sup 015 migrated Medical > from [facility], on 10/04/14. [facility], [place], [place] Vitamin D Active Problem 06/20/2018 Data deficiency<sup>12</sup 015 migrated Medical > from [facility], on 10/04/14. [facility], OPIFernando [place], [place] MYALGIA Active Condition 08/23/2014 015 [facility] PAIN IN JOINT, Active Condition 08/23/2014 MULTIPLE SITES 015 Medical Group GASTRITIS Active Condition 08/23/2014 015 [facility] Group Gastritis<sup>3</sup> Active Problem 06/20/2018 Data 015 migrated Medical from [facility], on 10/04/14. [facility], OPIFernando [place], [place] Multiple joint Active Problem 06/20/2018 Data pain<sup>4</sup> 015 migrated Medical from [facility], on 10/04/14. [facility], OPID [place], [place] Muscle Active Problem 06/20/2018 Data pain<sup>5</sup> 015 migrated Medical from [facility], on 10/04/14. [facility], JESSICA [place], [place] Nausea<sup>6</sup> Active Problem 06/20/2018 Data 015 migrated Medical from [facility], on 10/04/14. [facility], JESSICA [place], [place] HYPOGLYCEMIA, REACTIVE Active Condition 08/23/2014 015 [facility] ROUTINE GENERAL Active Condition 08/23/2014 MEDICAL EXAMINATION AT [address] [place] [address] [facility] NUMBNESS Active Condition 08/23/2014 015 [facility] Group PINWORMS Active Condition 08/23/2014 015 Medical Group Enterobiasis<sup>2</rosenberg Active Problem 06/20/2018 Data p> 015 migrated Medical from [facility], on 10/04/14. [facility], JESSICA [place], [place] Numbness<sup>7</sup> Active Problem 06/20/2018 Data 015 migrated Medical from [facility], on 10/04/14. [facility], JESSICA [place], [place] Reactive Active Problem 06/20/2018 Data hypoglycemia<sup>8</rosenberg 015 migrated Medical p> [facility] [place], on 10/04[facility]14. [facility], OPID [place] BACK PAIN, LUMBAR, Active Condition 08/23/2014 WITH [...] 08/23/2014 012 Medical Group Sinusitis<sup>10, Resolved Problem 06/20/2018 Data 11</sup> 012 migrated Medical from [facility], on 10/13/14. [facility], [place]ID [place], [place] ASTHMA Active Condition 08/23/2014 Medical Group HEADACHE Inactive Condition 08/23/2014 Medical Group HYPERCHOLESTEROLEMIA Active Condition 08/23/2014 Medical Group FAMILY HISTORY OF Active Condition 08/23/2014 ASTHMA Medical Group FH LUNG CANCER Active Condition 08/23/2014 Medical Group FH DEPRESSION Active Condition 08/23/2014 Medical Group FH DIABETES - DM Active Condition 08/23/2014 Medical [facility] HEART DISEASE Active Condition 08/23/2014 Medical Group Hypoglycemia Resolved Problem 06/20/2018 Medical Group,[facility], [facility], [place], [place] Obesity Active Problem 06/20/2018 Medical Group,[facility], [facility], [place], [place] Medications Medication Details Route Status Patient Ordering Order Source Instructions Provider Date Hyoscyamine 0.125 mg=1 Active Sulfate 0.125 MG tab, PO, 019 Medical Disintegrating QID, PRN Group Tablet [Nulev] Spasm, # 40 tab, 1 Refill(s), Pharmacy: [facility] [id number] Sulfamethoxazole 1 tab, PO, Active 800 MG / BID, X 7 019 Medical Trimethoprim 160 day, # 14 Group MG Oral Tablet tab, 0 [Bactrim] Refill(s), Pharmacy: [facility] [address] clonazePAM 0.5 mg 0.5 mg=1 Active oral tablet tab, PO, 019 Medical Daily, PRN Group Anxiety, # 30 tab, 1 Refill(s) Metronidazole 500 500 mg=1 Active MG Oral Tablet tab, PO, 019 Medical [Flagyl] Q8H, X 10 Group day, # 30 tab, 0 Refill(s), [facility] Amoxicillin 875 MG 875 mg=1 Active MH / Clavulanate 125 tab, PO, 019 Medical MG Oral Tablet Q12H, X 10 Group [Augmentin 875-mg] day, # 20 tab, 0 Refill(s), Pharmacy: [facility] [address]841 valACYclovir 1 g 1 gm=1 tab, No Longer MH oral tablet PO, Q8H, X Active 018 Medical 10 day, # Group 30 tab, 1 Refill(s), [facility] [address] pregabalin 50 MG 50 mg=1 Active MH Oral Capsule cap, PO, 018 Medical [Lyrica] TID, # 90 Group cap, 0 Refill(s) valACYclovir 1 g 1 gm=1 tab, No Longer MH oral tablet PO, Q8H, X Active 018 Medical 7 day, # 21 Group tab, 1 Refill(s), Pharmacy: [facility] [address]67 valACYclovir 1 g 1 gm=1 tab, No Longer MH oral tablet PO, Q8H, X Active 018 Medical 7 day, # 21 Group tab, 1 Refill(s), Pharmacy: [facility] [address]74 polyethylene 17 gm, PO, No Longer MH glycol 3350 oral Daily, X 31 Active 018 Medical powder for day, # 527 Group reconstitution gm, 1 Refill(s), Pharmacy: [facility] [address]6061 benzonatate 100 mg 100 mg=1 Active MH oral capsule cap, PO, 018 Medical TID, do not Group crush or chew, X 10 day, # 30 cap, 0 Refill(s), Pharmacy: [facility] [address]34 Codeine Phosphate 5 mL, PO, Active MH 2 MG/ML / Q12H, PRN 018 Medical Guaifenesin 20 cough, X 10 Group MG/ML Oral day, # 100 Solution mL, 0 [Cheratussin] Refill(s) Fluticasone 1 spray, Active MH propionate 0.05 NASAL, BID, 018 Medical MG/ACTUAT Metered # 16 gm, 2 Group Dose Nasal Lutts Refill(s), Pharmacy: [facility] [address] Azithromycin 5 Day See Active Dose Pack 250 mg Instruction 018 Medical oral tablet s, Take 2 Group tablets by mouth the first day then 1 tablet by mouth days 2-5., X 5 day, # 6 tab, 0 Refill(s), Pharmacy: [facility] [address] clonazePAM 0.5 mg 0.5 mg=1 Active oral tablet, tab, PO, 017 Medical disintegrating BID, # 60 Group tab, 1 Refill(s) EnteraGam EnteraGam, Active [facility] See 016 [facility] s, Samples given in clinic on 03/12/16. Lot [id number] exp date 10/15, # 1 box, Refill(s) 0 pantoprazole 40 MG 40 mg=1 Active [facility] Enteric Coated tab, PO, 016 Medical Tablet [...] Posiflush) cholestyramine 4 4 gm, PO, Active Jack g/5 g oral powder BID, # 210 015 Medical gm, 0 Center Refill(s), called to pharmacy Promethazine 12.5 mg=1 Active [place] Hydrochloride 12.5 tab, PO, 015 Medical MG Oral Tablet Q4H, PRN Center [Phenergan] Other-See Comments, X 10 day, # 60 tab, 0 Refill(s), called to pharmacy Hyoscyamine 0.125 mg=1 Inactive [place] Sulfate 0.125 MG tab, SL, 015 Medical Sublingual Tablet Q4H, # 30 Center [Levsin] tab, 1 Refill(s), Pharmacy: [facility] [id number] Ondansetron 8 MG 8 mg=1 tab, Active [place] Disintegrating PO, TID, 015 Medical Tablet [Zofran] PRN Nausea Center and Vomiting, Dissolve tab under tongue, X 7 day, # 21 tab, 1 Refill(s), Pharmacy: [facility] [address]87[address] GoLYTELY oral 240 mL, PO, Active [place] powder for Q10Min, # 1 015 Medical reconstitution ea, 0 Center Refill(s), Pharmacy: [facility] [address] Flagyl 500 mg=1 Active [place] tab, PO, 015 Medical BID, # 14 Center tab, 0 Refill(s) VITAMIN D 1 capsule Active (ERGOCALCIFEROL) weekly x 12 015 Medical 23239 UNIT CAPS weeks Group OMEPRAZOLE 20 MG Take one Active CPDR capsule by 015 Medical mouth daily Group ONDANSETRON HCL 4 1 tablet Active MG TABS every 8 015 Medical hours as Group needed for nausea/vomi ting QSYMIA 3.75-23 MG 1 po qd Active [id number] 015 Medical Group CYCLOBENZAPRINE 1/2-1 po No Longer HCL 10 MG TABS TID as Active 015 Medical needed for Group spasms PROMETHAZINE HCL 1 SUPP NE Q No Longer 25 MG SUPP 4 TO 6 HRS Active 014 Medical PRN N/V. Group TRAMADOL HCL 50 MG 1 tablet No Longer MH TABS every 12 Active 014 Medical hours as Group needed for pain GABAPENTIN 100 MG 1 capsule No Longer MH CAPS three times Active 014 Medical a day Group TRAMADOL HCL 50 MG 1 tablet No Longer MH TABS every 12 Active 014 Medical hours as Group needed for pain TRAMADOL HCL 50 MG 1 tablet Active MH TABS every 12 014 Medical hours as Group needed for pain Promethazine 12.5 mg=1 Active [place] Hydrochloride 12.5 tab, PO, 014 [place] MG Oral Tablet Q6H, Nausea [Phenergan] & Vomiting, # 20 tab, 0 Refill(s) Acetaminophen 325 1 tab, PO, Active MH [place] / Hydrocodone Q6H, Pain, 014 [place] Bitartrate 5 MG # 24 tab, 0 Oral Tablet [[place] Refill(s) 5/325] Phenergan 25 mg, 1 Inactive MH [place] mL, Route: 014 [place] IM, Drug form: INJ, ONCE, Dosing Weight 96.818, kg, Priority: STAT, Start date: 11/30/13 12:41:00, Stop date: 11/30/13 12:41:00Not es: Do not give IV push. (Same as: Phenergan) Saline Flush 0.9% 10 mL, Inactive MH [place] Route: IVP, 014 [place] Drug Form: INJ, Dosing Weight 96.818, kg, PRN, PRN Line Flush, Start date: 11/30/13 12:25:00, Duration: 30 day, Stop date: 12/30/13 12:24:00Not es: (Same as: BD Posiflush) Carafate 0 Refill(s) Active [place] 014 [place] Promethazine 0 Refill(s) Active [...] OMEPRAZOLE 20 MG Take one No Longer 07/09/2 MH CPDR capsule by Active 014 Medical [...] Group pain OMEPRAZOLE 20 MG Take one Active MH CPDR capsule by 014 Medical mouth daily Group MELOXICAM 7.5 MG 1 tablet Active MH TABS daily as 014 Medical needed for Group pain MELOXICAM [...] morning Active 014 Medical Group CARAFATE 1 GM/10ML 10 mL QID No Longer SUSP Active 013 Medical Group CARAFATE 1 GM/10ML 10 mL QID No Longer MH SUSP Active 013 Medical Group ZEGERID 40-1680 MG 1 po qd No Longer MH PACK Active 013 Medical Group ALIGN one daily No Longer MH Active 013 Medical Group ZEGERID 40-1680 MG 1 po qd No Longer MH PACK Active 013 Medical Group GLUMETZA 500 MG 1 po qd Active MH [id number] 013 Medical Group NULEV 0.125 MG 1 po q 8-12 No Longer TBDP prn Active 012 Medical Group ZITHROMAX Z-MADHU Take as No Longer 250 MG TABS directed Active 012 Medical Group THYROID COMPOUND Active Medical Group Allergies, Adverse Reactions, Alerts Substance Category Reaction Severity Reaction Status Date Comments Source type Reported ANTI-INFLAMMATO Drug ANTI-INFL FIORDALIZA allergy AMMATORIE 2 Medical S Group LEVAQUIN Drug LEVAQUIN MH allergy 2 Medical Group BACTRIM Drug BACTRIM [...] CDT 01/05 - OPID views DX views DX - [place] INDICATION: - J01.90 Acute sinusitis, unspecified Read [...] CT contrast CT 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 In most young, healthy individuals the eGFR will be >90 mL/ min/1.73m2. The eGFR declines with age. An eGFR of 60-89 may be normal in [place] mL/min/1.7 /2015 some populations, particularly the elderly, for whom the CKD-EPI formula has not been extensively validated. Use of the eGFR is not recommended in the following populations: [facility] 3m2 Individuals with unstable creatinine concentrations, including [...] 242 K/CMM 133 - 450 09/15 [place] /2015 [place] HEMATOLOGY MCHC 33.0 g/dL 32.0 - 09/15 [place] 36.0 /2015 [place] HEMATOLOGY RDW 13.3 % 11.5 - 09/15 [place] 14.5 /2015 [place] HEMATOLOGY Hct 47.5 % 36.0 - 09/15 [place] 48.0 /2015 [place] HEMATOLOGY Basophils 0.5 % 0.0 - 1.0 09/15 [place] HEMATOLOGY Eosinophils 1.1 % 0.0 - 4.0 09/15 [place] HEMATOLOGY Monocytes 6.3 % 2.0 - 12.0 09/15 [facility] HEMATOLOGY Segs 54.0 % 45.0 - 09/15 [place] 75.0 /2015 [place] HEMATOLOGY Lymphocytes 38.1 % 20.0 - 09/15 [place] 40.0 [place] HEMATOLOGY Basophils # 0.0 K/CMM 0.0 - 0.2 09/15 /2015 [place] HEMATOLOGY Eosinophils 0.1 K/CMM 0.0 - 0.5 09/15 [place] # /2015 [place] HEMATOLOGY Monocytes # 0.6 K/CMM 0.0 - 0.8 09/15 [place] HEMATOLOGY Lymphocytes 3.4 K/CMM 1.0 - 5.5 [...] /HPF None Seen 09/15 [place] STOOL /HPF /2015 [facility] URINE AND UA RBC None Seen 0 - 2 09/15 [place] STOOL [facility] (09/16/15 5:47 PM) URINE AND Micro? Performed 09/15 [place] STOOL [facility] (09/16/15 5:47 PM) URINE AND UA Leuk Est Negative Negative 09/15 [place] STOOL [facility] (09/16/15 5:47 PM) URINE AND UA Protein Negative Negative 09/15 [place] STOOL [facility] (09/16/15 5:47 PM) URINE AND UA pH 6.0 5.0 - 8.0 09/15 [facility] STOOL [facility] URINE AND UA Bili Negative Negative 09/15 [place] STOOL [facility] *NA* (09/16/15 5:47 PM) URINE AND UA Ketones Negative Negative 09/15 [place] STOOL [facility] *NA* (09/16/15 5:47 PM) URINE AND UA 0.2 EU/dL 0.1 - 1.0 09/15 [facility] Urobilinogen [facility] URINE AND UA Blood Trace Negative 09/15 [place] STOOL [facility] *ABN* (09/16/15 5:47 PM) URINE AND UA Turbidity Clear Clear 09/15 Sugar [facility] (09/16/15 5:47 PM) URINE AND UA Color Yellow Yellow 09/15 [place] STOOL [facility] *NA* (09/16/15 5:47 PM) URINE AND UA Spec Grav 1.025 <=1.030 09/15 Sugar [facility] Brain wo Brain wo CLINICAL HISTORY:Syncope. 09/15 [facility] contrast CT contrast CT [facility] AGE: 59 years GENDER: Female Read by: [...] OPID vis w IV is w IV - [place] contrast CT contrast CT Land [...] None Seen 11/30 [place] STOOL /HPF /HPF [facility] URINE AND UA RBC 0-2 /HPF 0 - 2 11/30 [facility] URINE AND UA Sq Epi Few /LPF Few /LPF 11/30 [facility] URINE AND UA WBC 0-2 /HPF None Seen 11/30 [place] STOOL /HPF [facility] URINE AND UA Bili Negative Negative 11/30 [facility] STOOL [facility] *NA* (11/30/13 2:00 PM) URINE AND UA Blood Trace Negative 11/30 [facility] *ABN* (11/30/13 2:00 PM) URINE AND UA 0.2 EU/dL 0.1 - 1.0 11/30 [place] STOOL Urobilinogen [facility] URINE AND UA pH 6.0 5.0 - 8.0 11/30 [facility] URINE AND UA Ketones Negative Negative 11/30 [facility] STOOL [facility] *NA* (11/30/13 2:00 PM) URINE AND UA Protein Negative Negative 11/30 [facility] STOOL [facility] (11/30/13 2:00 PM) URINE AND UA Glucose Negative Negative 11/30 Sugar [facility] (11/30/13 2:00 PM) URINE AND UA Turbidity Clear Clear 11/30 Sugar [facility] (11/30/13 2:00 PM) URINE AND UA Spec Grav 1.020 <=1.030 11/30 [place] STOOL [facility] URINE AND UA Color Yellow Yellow 11/30 [place] STOOL [facility] *NA* (11/30/13 2:00 PM) URINE AND UA Leuk Est Negative Negative 11/30 [facility] STOOL [facility] (11/30/13 2:00 PM) URINE AND UA Nitrite Negative Negative 11/30 [place] STOOL [facility] (11/30/13 2:00 PM) CHEM PANEL B/C Ratio 16 6 - 25 11/30 [facility] CHEM PANEL AGAP 14.0 meq/L 10.0 - 11/30 [place] 20.0 [place] CHEM PANEL Globulin 3.9 g/dL 2.0 - 4.0 11/30 [place] CHEM PANEL A/G Ratio 1.1 0.7 [...] Total 0.9 mg/dL 0.2 - 1.3 11/30 [place] CHEM PANEL Calcium Lvl 9.5 mg/dL 8.5 - 10.5 11/30 [place] CHEM PANEL Total 8.0 g/dL 6.4 - 8.4 11/30 [place] CHEM PANEL Albumin Lvl 4.1 g/dL 3.5 - 5.0 11/30 [place] CHEM PANEL CO2 24 meq/L 24 - 32 11/30 [place] CHEM PANEL Chloride Lvl 104 meq/L 95 - 109 11/30 [place] CHEM PANEL Creatinine 0.9 mg/dL 0.5 - 1.4 11/30 [place] CHEM PANEL Sodium Lvl 138 meq/L 135 - 145 11/30 [place] CHEM PANEL Potassium 4.0 meq/L 3.5 - 5.1 11/30 [place] CHEM PANEL BUN 14 mg/dL 7 - 22 11/30 [place] /2013 [place] CHEM PANEL Glucose Lvl 92 mg/dL 70 - 99 11/30 2Interpretive Data: Adult reference range values reflect the clinical guidelines of the [place] [employer]. [place] CHEM PANEL Lipase Lvl 147 unit/L 73 - 393 11/30 [place] /2013 [place] CHEM PANEL Amylase Lvl 35 unit/L 25 - 115 11/30 [place] HEMATOLOGY MCHC 34.0 g/dL 32.0 - 11/30 MH [place] 36.0 /2013 [place] HEMATOLOGY RDW 12.7 % 11.5 - 11/30 MH [place] 14.5 /2013 [place] HEMATOLOGY Platelet 236 K/CMM 133 - 450 11/30 [place] HEMATOLOGY MPV 9.6 fL 7.4 - 10.4 11/30 [place] HEMATOLOGY Hgb 16.9 g/dL 12.0 - 11/30 MH [place] 16.0 [place] HEMATOLOGY WBC 7.1 K/CMM 3.7 - 10.4 11/30 [place] HEMATOLOGY RBC 5.64 M/CMM 4.20 - 11/30 [place] 5.40 /2013 [place] HEMATOLOGY Hct 49.7 % 36.0 - 11/30 MH [place] 48.0 /2013 [place] HEMATOLOGY MCH 29.9 pg 27.0 - 11/30 MH [place] 31.0 /2013 [place] HEMATOLOGY MCV 88.0 fL 80.0 - 11/30 MH [place] 98.0 /2013 [place] HEMATOLOGY Eosinophils 0.0 K/CMM 0.0 - 0.5 11/30 MH [place] # /2013 [place] HEMATOLOGY Segs-Bands # 4.8 K/CMM 1.5 - 8.1 11/30 [place] /2013 [place] HEMATOLOGY Monocytes # 0.4 K/CMM 0.0 - 0.8 11/30 [place] HEMATOLOGY Basophils 0.5 % 0.0 - 1.0 11/30 [place] /2013 [place] HEMATOLOGY Basophils # 0.0 K/CMM 0.0 - 0.2 11/30 [place] /2013 [place] HEMATOLOGY Eosinophils 0.7 % 0.0 - 4.0 11/30 [place] /2013 [place] HEMATOLOGY Lymphocytes 1.8 K/CMM 1.0 - 5.5 11/30 MH [place] # /2013 [place] HEMATOLOGY Segs 67.7 % 45.0 - 11/30 MH [place] 75.0 /2013 [facility] HEMATOLOGY Monocytes 5.7 % 2.0 - 12.0 11/30 [facility] HEMATOLOGY Lymphocytes 25.4 % 20.0 - 11/30 [place] 40.0 /2013 [facility] IMMUNOLOGY [facility] HIV 4th Negative Negative 11/30 [place] GEN [facility] (11/30/13 12:35 PM) Gallbladder Gallbladder Gallbladder HIDA scan with ejection fraction. - [place] scan HIDA w scan HIDA w - [facility] meds [place] meds DC HISTORY: Abdominal pain. Read by: Rico Reyes [...] exam. Serology HELICOB IGG 0.6 U/mL 11/07 [facility] Serology HELICOB IGG 0.6 U/mL 11/07 Medical [facility] Med Care Manager PAP SMEAR Normal 03/30 Medical [facility] Med Care Manager PAP SMEAR Normal 03/30 Medical [facility] Med Care Manager PAP SMEAR Normal 03/30 Medical [facility] Med Care Manager PAP SMEAR Normal 03/30 [facility] Pathology PAP SMEAR Normal 03/30 [facility] Pathology PAP SMEAR Normal 03/30 Medical [facility] Vital Signs Vital Sign Value Date Comments Source Weight 90 06/14/2018 [facility] BMI Calculated 35.15 06/14/2018 [facility] Height 160.02 cm 06/14/2018 Medical Group Systolic (mm Hg) 128 06/14/2018 [facility] Group Diastolic (mm Hg) 78 06/14/2018 [facility] Temperature Oral (F) 97.7 F 06/14/2018 [facility] Heart Rate 101 06/14/2018 Medical Group BMI Calculated 36.57 10/06/2017 Medical Group Weight [...] Group Systolic (mm Hg) 143 03/12/2016 [facility] Diastolic (mm Hg) 94 03/12/2016 [facility] Heart Rate 72 03/12/2016 [facility] Weight 90.909 03/12/2016 [facility] BMI Calculated 35.5 03/12/2016 [facility] Height 160.02 cm 03/12/2016 [facility] Respitory Rate 16 03/12/2016 [facility] Respitory Rate 18 09/16/2015 [place] Heart Rate 78 09/16/2015 [place] Systolic (mm Hg) 133 09/16/2015 [place] Diastolic (mm Hg) 75 09/16/2015 [place] BMI Calculated 33.51 09/16/2015 [place] Weight 85.818 09/16/2015 [place] Temperature Oral (F) 98.0 F 09/16/2015 [place] Heart Rate 81 09/16/2015 [place] Respitory Rate 18 09/16/2015 [place] Height 160.02 cm 09/16/2015 [place] Systolic (mm Hg) 155 09/16/2015 [place] Diastolic (mm Hg) 95 09/16/2015 [place] BMI Calculated 31.86 03/14/2015 [facility] Weight 81.591 03/14/2015 [facility] Height 160.02 cm 03/14/2015 [facility] Heart Rate 81 03/14/2015 [facility] Temperature Oral (F) 97.9 F 03/14/2015 [facility] Systolic (mm Hg) 148 03/14/2015 [facility] Diastolic (mm Hg) 88 03/14/2015 [facility] Height 63 08/23/2014 Medical Group [...] Medical Group Systolic (mm Hg) 139 11/30/2013 [place] Diastolic (mm Hg) 91 11/30/2013 [place] Respitory Rate 16 11/30/2013 [place] Heart Rate 89 11/30/2013 [place] Systolic (mm Hg) 147 11/30/2013 [place] Diastolic (mm Hg) 86 11/30/2013 [place] Heart Rate 88 11/30/2013 [place] Respitory Rate 16 11/30/2013 [place] Weight 96.818 11/30/2013 [place] Height 160.02 cm 11/30/2013 [place] BMI Calculated 37.81 11/30/2013 [place] Temperature Oral (F) 98.2 F 11/30/2013 [place] Respitory Rate 18 11/30/2013 [place] Heart Rate 92 11/30/2013 [place] Diastolic (mm Hg) 92 11/30/2013 [place] Systolic (mm Hg) 152 11/30/2013 [place] Height 63 11/21/2013 [facility] Weight 214 11/21/2013 [facility] Group Systolic (mm Hg) 142 11/21/2013 [facility] Group Diastolic (mm Hg) 67 11/21/2013 Medical Group Heart Rate 83 11/21/2013 [facility] Weight 212 11/07/2013 [facility] Temperature Oral (F) 98.2 F 11/07/2013 [facility] Systolic (mm Hg) 138 11/07/2013 [facility] Diastolic (mm Hg) 86 11/07/2013 Medical Group Heart Rate 87 11/07/2013 [facility] Weight 218 10/25/2013 [facility] Temperature Oral (F) 97.9 F 10/25/2013 Medical Group Respitory Rate 20 10/25/2013 Medical Group Heart Rate 80 10/25/2013 [facility] Systolic (mm Hg) 137 10/25/2013 [facility] Diastolic (mm Hg) 69 10/25/2013 [facility] Weight 215 10/05/2013 [facility] Temperature Oral (F) 97.7 F 10/05/2013 Medical Group Heart Rate 91 10/05/2013 [facility] Systolic (mm Hg) 141 10/05/2013 [facility] Diastolic (mm Hg) 84 10/05/2013 Medical Group Temperature Oral (F) 98.3 F 09/01/2013 Medical Group Weight 220 09/01/2013 [facility] Systolic (mm Hg) 136 09/01/2013 [facility] Diastolic (mm Hg) 78 09/01/2013 Medical Group Heart Rate 88 09/01/2013 Medical Group Weight 197 12/07/2012 Medical Group Temperature Oral (F) 97.4 F 12/07/2012 [facility] Systolic (mm Hg) 141 12/07/2012 [facility] Diastolic (mm Hg) 78 12/07/2012 Medical Group Heart Rate 84 12/07/2012 [facility] Systolic (mm Hg) 133 12/03/2012 [facility] Diastolic (mm Hg) 89 12/03/2012 Medical Group Heart Rate 90 12/03/2012 [facility] Temperature Oral (F) 98.0 F 12/03/2012 [facility] Weight 199 12/03/2012 Medical Group [...] Provider Date Date Visit [facility] Report [id number] [facility] 12/03 12/03 [place] [id number] [place] /2012 Medical Duran Babin MD [facility] Office [id number] [facility] 12/07 12/07 [place] Visit [id number] [place] /2012 Medical Duran Garcia [place] [facility] [id number] [facility] 09/01 09/01 [place] Visit 7020 Sustache /2013 MD Radha Mohamud Jr. [facility] [id number] [facility] 10/05 10/05 [place] Visit 1090 Sustache /2013 MD Radha Mohamud Jr. [facility] [id number] [facility] 10/25 10/25 [place] Visit 8880 Sustache /2013 Medical Duran Babin MD [facility] [place] Office [id number] [facility] 11/07 11/07 [place] Visit 2060 Sustache /2013 Medical MD Radha Garzon Jr. [facility] Lab Report [id number] [facility] 11/07 11/07 [place] 2260 Sustache /2013 Medical MD Radha Garzon Jr. [facility] [id number] [facility] 11/21 11/21 [place] Visit 8980 Sustache /2013 Medical MD Radha Garzon Jr. [facility] EC [id number] Desean Mosquera 11/30 11/30 [place] Emergency /2013 [facility] [id number] [facility] 12/01 12/01 [place] 2960 Sustache /2013 MD Group Radha Mohamud Jr. - [facility] Office [id number] [facility] 02/13 02/13 [place] Visit 9710 Sustache /2013 MD Group Radha Mohamud Jr. [facility] [id number] [facility] 04/06 04/06 [place] Visit 8760 Sustache /2014 MD Group Radha Mohamud Jr. [facility] [id number] [facility] 08/08 08/08 [place] Visit 9590 Sustache /2014 MD Group Radha Mohamud Jr. [facility] [id number] [facility] 08/22 08/22 [place] Visit 7820 Sustache /2014 MD Group Radha Mohamud Jr. [facility] [id number] [facility] 08/23 08/23 [place] Visit 3800 Sustache /2014 MD Group Radha Mohamud Jr. [facility] Report [id number] [facility] 08/23 08/23 [place] 3890 Sustache /2014 MD Group Radha Mohamud Jr. [place] Outpatient [id number] [facility] 01/30 [facility] [id number] Sb 02/23 02/24 [facility] [place] [facility] Outpatient [id number] Ep[facility] 03/14 03/15 [facility] [place] [facility]2014 [facility] Bedded [id number] Epifanio 04/30 04/30 [facility] Outpatient [place] /2015 [facility] Outpatient [id number] [facility] 05/17 Active [facility] SUST[facility]HE [place] Outpatient [id number] [facility] 07/09 Active [facility] SUST[facility]HE [place] Outpatient [id number] NADINE GENARO 08/22 Active Memorial [place] Outpatient [id number] [facility] 09/10 Active [facility] SUSTACHE /2015 [place] [facility] EC [id number] Michelle 09/15 09/16 [place] Emergency De[place] /2015 [facility] Outpatient [id number] [facility] 10/17 Active [facility] SUST[facility] [place] Outpatient [id number] [facility] 11/18 Active [facility] SU[facility] [place] Outpatient [id number] CARLOS 01/20 Active [facility] SUSTACHE [place] Outpatient [id number] CARLOS 02/12 Active [facility] SUSTACHE [facility] Outpatient [id number] Epifanio 03/12 03/13 [facility] /2015 [facility] Outpt Diag [id number] Epifanio 03/25 03/26 [facility] Outpatient [id number] CARLOS 04/17 Active [facility] SUSTACHE [place] Outpatient [id number] CARLOS 05/15 Active [facility] SUSTACHE /2016 [place] Outpatient [id number] CARLOS 06/03 Active [facility] SUST[facility]HE [place] Outpatient [id number] CARLOS 07/30 Active [facility] SUST[facility] [place] Outpatient [id number] CARLOS 08/29 Active [facility] SU[facility] /2016 [place] Outpatient [id number] CARLOS 11/12 Active [facility] SUST[facility]HE /2016 [place] Outpatient [id number] CARLOS 12/30 Active [facility] SUST[facility]HE [place] Outpatient [id number] CARLOS 02/23 Active [facility] SUSTACHE /2016 [facility] Outpatient [id number] [place] 02/23 02/24 Primary [place] /2016 [facility] [place] Phone [id number] 03/09 03/11 Primary Message /2016 [facility] Phone [id number] 03/12 03/14 Primary Message /2016 [facility] [place] Outpatient [id number] CARLOS 03/31 Active [facility] SUSTACHE /2017 [facility] Outpatient [id number] [place] 03/31 04/01 MH Primary [place] /2017 [facility] [place] Phone [id number] 06/05 06/07 Primary Message /2017 [facility] [id number] Zeb 06/06 06/06 [place] /2017 [facility] Outpatient [id number] CARLOS 06/09 Active [facility] SUSTACHE /2017 [facility] Outpatient [id number] [place] 06/09 06/10 Primary [place] /2017 [facility] [place] [facility] Phone [id number] 06/15 06/17 Primary Message /2017 [facility] [place] [facility] Phone [id number] 06/26 06/28 Primary Message /2017 [facility] [place] Outpatient [id number] CARLOS 06/29 Active [facility] SUST[facility]HE [place] [facility] Ambulatory [id number] Carlos 06/29 06/29 Primary Pre-Reg [place] /2017 [facility] [place] Outpatient [id number] CARLOS 07/02 [facility] [id number] Carlos 07/02 07/03 Primary [place] /2017 [facility] [place] [facility] Phone [id number] 07/27 07/29 Primary Message /2017 [facility] [place] [facility] Phone [id number] 07/28 07/30 Primary Message /2017 [facility] [place] Outpatient [id number] C[place] 10/06 [facility] [id number] [place] 10/06 10/07 Primary [place] /2017 [facility] [place] [facility] Phone [id number] 11/06 11/08 Primary Message /2017 [facility] [place] Outpatient [id number] [place] 01/05 Active [facility] ESP[place]ZA [place] Outpatient [id number] CARLOS 06/14 [facility] [id number] Carlos 06/14 06/15 Primary S[place] /2018 [facility] [place] [facility] Between [id number] 06/16 06/17 Primary Visit /2018 [facility] [place] Procedures Procedure Code Date Perfomer Comments Source Removal of [id number] 03/30/2013 Medical gallbladder Group Removal of 54822559 03/30/2013 [place] gallbladder Removal of 32078542 03/30/2013 [facility]bladder [facility] Removal of 12272429 03/30/2013 [facility] gallbladder [place] Removal of 15227215 03/30/2013 [facility] [place] gallbladder [place] Removal of 89907628 03/30/2013 [place] gallbladder colonoscopy 65335 03/30/2008 Normal Medical Group mammogram 62169 03/30/2008 Normal Medical Group vaginal Pap smear 76757 03/30/2008 Normal Medical results Group mammogram 10552 03/30/1999 Normal Medical Group Bilateral tubal [id number] Medical ligation Group Carpal tunnel [id number] Medical release Group Mammogram [id number] Medical Group Bilateral tubal 159434156 [place] ligation Carpal tunnel [id number] [place] release Mammogram 49373431 [place] Bilateral tubal 694270581 [place] ligation [facility] Carpal tunnel 55062174 [place] [facility] Bilateral tubal 686094981 [facility] ligation [place] Carpal tunnel [id number] [facility] release [place] Bilateral tubal 928768964 [facility] [place] ligation [place] Carpal tunnel [id number] [facility] [place] release [place] Bilateral tubal 659565690 [place] ligation Carpal tunnel [id number] [place] release
--- OUTSIDE RECORDS SUMMARY | 2018-06-19 20:41 | XMS REPORT | Continuity of Care Document ---
:1955 Author Organization [facility] Care Team Providers Name Role Phone Silvio Babin MD, Carlos Unavailable Unavailable Insurance Providers Payer name Policy type / Coverage type Policy ID Covered democrat ID Policy Mueller AETNA (PPO) AETNA (PPO) Encounters Encounter Performer Location Date Office Visit Carlos Anguiano Jr., MD [facility] Aug [place] Allergies, Adverse Reactions, Alerts Type Substance Reaction [...]
--- OUTSIDE RECORDS SUMMARY | 2018-06-19 20:41 | XMS REPORT | Continuity of Care Document ---
:1955 Author Organization [facility] Care Team Providers Name Role Phone Silvio Babin MD, Carlos Unavailable Unavailable Insurance Providers Payer name Policy type / Coverage type Policy ID Covered republican ID Policy Mueller AETNA (PPO) AETNA (PPO) Encounters Encounter Performer Location Date Lab Report Carlos Anguiano Jr., MD [facility] Dec 03, 2012 [place] Allergies, Adverse Reactions, Alerts Type Substance Reaction [...] Dec 08, 2011 Inactive GLUMETZA 500 MG [id number] 1 po qd Apr 13, 2012 Active [...]
--- OUTSIDE RECORDS SUMMARY | 2018-06-19 20:41 | XMS REPORT | Continuity of Care Document ---
:1955 Author Organization [facility] Care Team Providers Name Role Phone Silvio Babin MD, Carlos Unavailable Unavailable Insurance Providers Payer name Policy type / Coverage type Policy ID Covered green party ID Policy Mueller AETNA (PPO) AETNA (PPO) Encounters Encounter Performer Location Date Office Visit Carlos Anguiano Jr., MD [facility] Nov [employer] Allergies, Adverse Reactions, Alerts Type Substance Reaction [...] Dec 08, 2011 Inactive GLUMETZA 500 MG [id number] 1 po qd Apr 13, 2012 Active [...]
--- OUTSIDE RECORDS SUMMARY | 2018-06-19 20:42 | XMS REPORT | Continuity of Care Document ---
:1955 Author Organization [facility] Care Team Providers Name Role Phone Silvio Babin MD, Carlos Unavailable Unavailable Insurance Providers Payer name Policy type / Coverage type Policy ID Covered green party ID Policy Mueller AETNA (PPO) AETNA (PPO) Encounters Encounter Performer Location Date Office Visit Carlos Anguiano Jr., MD [facility] Oct [place] Allergies, Adverse Reactions, Alerts Type Substance Reaction [...]
--- OUTSIDE RECORDS SUMMARY | 2018-06-19 20:42 | XMS REPORT | Continuity of Care Document ---
:1955 Author Organization [facility] Care Team Providers Name Role Phone Silvio Babin MD, Carlos Unavailable Unavailable Insurance Providers Payer name Policy type / Coverage type Policy ID Covered libertarian ID Policy Mueller AETNA (PPO) AETNA (PPO) Encounters Encounter Performer Location Date Office Visit Carlos Anguiano Jr., MD [facility] Oct [place] Allergies, Adverse Reactions, Alerts Type Substance [...]
--- OUTSIDE RECORDS SUMMARY | 2018-06-19 20:42 | XMS REPORT | Continuity of Care Document ---
:1955 Author Organization [facility] Care Team Providers Name Role Phone Silvio Babin MD, Carlos Unavailable Unavailable Insurance Providers Payer name Policy type / Coverage type Policy ID Covered democrat ID Policy Mueller AETNA (PPO) AETNA (PPO) Encounters Encounter Performer Location Date Office Visit Carlos Anguiano Jr., MD [facility] Sep [place] Allergies, Adverse Reactions, Alerts Type Substance Reaction [...]
--- OUTSIDE RECORDS SUMMARY | 2018-06-19 20:42 | XMS REPORT | Continuity of Care Document ---
:1955 Author Organization [facility] Care Team Providers Name Role Phone Silvio Babin MD, Carlos Unavailable Unavailable Insurance Providers Payer name Policy type / Coverage type Policy ID Covered libertarian ID Policy Mueller AETNA (PPO) AETNA (PPO) Encounters Encounter Performer Location Date Office Visit Carlos Anguiano Jr., MD [facility] Sep [place] Allergies, Adverse Reactions, Alerts Type Substance Reaction [...]
--- OUTSIDE RECORDS SUMMARY | 2018-06-19 20:42 | XMS REPORT | Continuity of Care Document ---
:1955 Author Organization [facility] Care Team Providers Name Role Phone Silvio Babin MD, Carlos Unavailable Unavailable Insurance Providers Payer name Policy type / Coverage type Policy ID Covered libertarian ID Policy Mueller AETNA (PPO) AETNA (PPO) Encounters Encounter Performer Location Date Lab Report Carlos Anguiano Jr., MD [facility] Nov 07, 2013 [place] Allergies, Adverse Reactions, Alerts Type Substance Reaction [...]
--- OUTSIDE RECORDS SUMMARY | 2018-06-19 20:42 | XMS REPORT | Continuity of Care Document ---
:1955 Author Organization [facility] Care Team Providers Name Role Phone Silvio Babin MD, Carlos Unavailable Unavailable Insurance Providers Payer name Policy type / Coverage type Policy ID Covered democrat ID Policy Mueller AETNA (PPO) AETNA (PPO) Encounters Encounter Performer Location Date Lab Report Carlos Anguiano Jr., MD [facility] - Nov [place] Allergies, Adverse Reactions, Alerts Type Substance Reaction [...]
--- OUTSIDE RECORDS SUMMARY | 2018-06-19 20:43 | XMS REPORT | Continuity of Care Document ---
:1955 Author Organization [facility] Care Team Providers Name Role Phone Silvio Babin MD, Carlos Unavailable Unavailable Insurance Providers Payer name Policy type / Coverage type Policy ID Covered republican ID Policy Mueller AETNA (PPO) AETNA (PPO) Encounters Encounter Performer Location Date Office Visit Carlos Anguiano Jr., MD [facility] Jan [place] Allergies, Adverse Reactions, Alerts Type Substance Reaction [...]
--- OUTSIDE RECORDS SUMMARY | 2018-06-19 20:43 | XMS REPORT | Continuity of Care Document ---
:1955 Author Organization [facility] Care Team Providers Name Role Phone Silvio Babin MD, Carlos Unavailable Unavailable Insurance Providers Payer name Policy type / Coverage type Policy ID Covered democrat ID Policy Mueller AETNA (PPO) AETNA (PPO) Encounters Encounter Performer Location Date Office Visit Carlos Anguiano Jr., MD [facility] July [place] Allergies, Adverse Reactions, Alerts Type Substance Reaction [...] PROMETHAZINE HCL 25 MG SUPP 1 SUPP IA Q 4 TO 6 HRS PRN N/V. [...] spasms THYROID COMPOUND Active QSYMIA 3.75-23 MG [id number] 1 po qd August 08, 2014 Active [...]
--- OUTSIDE RECORDS SUMMARY | 2018-06-19 20:43 | XMS REPORT | Continuity of Care Document ---
[...] Jr., MD [facility] [place] Allergies, Adverse Reactions, Alerts Type Substance Reaction [...]
--- OUTSIDE RECORDS SUMMARY | 2018-06-19 20:43 | XMS REPORT | Continuity of Care Document ---
:[address] [facility] Care Team Providers Name Role Phone Silvio Babin MD, Carlos Unavailable Unavailable Insurance Providers Payer name Policy type / Coverage type Policy ID Covered libertarian ID Policy Mueller AETNA (PPO) AETNA (PPO) Encounters Encounter Performer Location Date Office Visit Carlos Anguiano Jr., MD [facility] July [place] Allergies, Adverse Reactions, Alerts Type Substance Reaction [...] PROMETHAZINE HCL 25 MG SUPP 1 SUPP ID Q 4 TO 6 HRS PRN Mar [...] spasms THYROID COMPOUND Active QSYMIA 3.75-23 MG [id number] 1 po qd August 08, 2014 Active OMEPRAZOLE 20 MG CPDR Take one capsule by mouth August 22, 2014 Active daily ONDANSETRON HCL 4 MG TABS 1 tablet every 8 hours as August 22, 2014 Active needed for nausea/vomiting VITAMIN D (ERGOCALCIFEROL) 15424 1 capsule weekly x 12 weeks August [...]
--- OUTSIDE RECORDS SUMMARY | 2018-06-19 20:44 | XMS REPORT | Continuity of Care Document ---
:1955 Author Organization [facility] Care Team Providers Name Role Phone Silvio Babin MD, Carlos Unavailable Unavailable Insurance Providers Payer name Policy type / Coverage type Policy ID Covered alliance party ID Policy Mueller AETNA (PPO) AETNA (PPO) Encounters Encounter Performer Location Date Lab Report Carlos Anguiano Jr., MD [facility] August 23, 2014 [place] Allergies, Adverse Reactions, Alerts Type Substance Reaction [...] PROMETHAZINE HCL 25 MG SUPP 1 SUPP MD Q 4 TO 6 HRS PRN Mar [...] spasms THYROID COMPOUND Active QSYMIA 3.75-23 MG [id number] 1 po qd August 08, 2014 Active OMEPRAZOLE 20 MG CPDR Take one capsule by mouth August 22, 2014 Active daily ONDANSETRON HCL 4 MG TABS 1 tablet every 8 hours as August 22, 2014 Active needed for nausea/vomiting VITAMIN D (ERGOCALCIFEROL) 96175 1 capsule weekly x 12 weeks August [...]
--- OUTSIDE RECORDS SUMMARY | 2018-06-19 20:44 | XMS REPORT | Continuity of Care Document ---
:1955 Author Organization [facility] Care Team Providers Name Role Phone Silvio Babin MD, Carlos Unavailable Unavailable Insurance Providers Payer name Policy type / Coverage type Policy ID Covered alliance party ID Policy Mueller AETNA (PPO) AETNA (PPO) Encounters Encounter Performer Location Date Office Visit Carlos Anguiano Jr., MD [facility] July [place] Allergies, Adverse Reactions, Alerts Type Substance Reaction [...] PROMETHAZINE HCL 25 MG SUPP 1 SUPP [place] Q 4 TO 6 HRS PRN N/V. [...] spasms THYROID COMPOUND Active QSYMIA 3.75-23 MG [id number] 1 po qd August 08, 2014 Active [...]
--- OUTSIDE RECORDS SUMMARY | 2018-06-19 20:46 | XMS REPORT | Summary of Care ---
:1955 Author Organization [facility] [place] Address [address] [place] [address], [place] [address]- Encounter HQ Tk(FIN) [id number] Date(s): 06/14/18 - 06/14/18 [facility] [address] [place] [address] [address] [place] [address]- [phone] Discharge Disposition: Home or Self Care Attending Physician: Carlos Chris MD Vital Signs Most recent to oldest [Reference Range]: 1 Height 160.02 cm (06/14/18 1:55 PM) Temperature Oral [96.4-99.1 DegF] 97.7 DegF (06/14/18 1:55 PM) Blood Pressure [90-140/60-90 mmHg] 128/78 mmHg (06/14/18 1:55 PM) Peripheral Pulse Rate [60-100 bpm] 101 bpm *HI* (06/14/18 1:55 PM) Weight 90 kg (06/14/18 1:55 PM) Body Mass Index 35.15 m2 (06/14/18 1:55 PM) Problem List Condition Effective Dates Status Health Status Informant Diarrhea1 08/23/14 Resolved 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 Gastritis3 08/22/14 Active Hypoglycemia(Confirmed) Resolved Multiple joint pain4 08/22/14 Active Muscle pain5 08/22/14 Active Nausea6 08/22/14 Active Numbness7 08/08/14 Active Obesity(Confirmed) Active Reactive hypoglycemia8 08/08/14 Active Screening mammography9 08/23/14 Active Vkctszybz29, 11 12/08/11 Resolved Vitamin D [id number] 08/23/14 Active 1Data migrated from [employer] [...] Active Food Iodine Active NSAIDs Active Medications Augmentin 875 mg oral tablet 875 mg=1 tab, PO, Q12H, X 10 day, # 20 tab, 0 Refill(s), Pharmacy: [facility] [id number] Start Date: 06/14/18 Stop Date: 06/24/18 Status: OrderedFlagyl 500 mg oral tablet 500 mg=1 tab, PO, Q8H, X 10 day, # 30 tab, 0 Refill(s), Pharmacy: [facility] [id number] Start Date: 06/14/18 Stop Date: 06/24/18 Status: Ordered Results No data available for [...] Reg Smoking Cessation Counseling No entered on: 06/14/18 [id number] Assessment and Plan No data available for this section
--- OUTSIDE RECORDS SUMMARY | 2018-06-19 20:46 | XMS REPORT | Summary of Care ---
:[address] [facility] Address [address] [place] [address]- Encounter HQ Encntr_konrad(FIN) [id number] Date(s): 06/05/17 - 06/05/[address] [address] [phone] Discharge Disposition: Not Treated Attending Physician: Zeb Delgado MD Vital Signs No data available for this section Problem List Condition Effective Dates Status Health Status Informant Diarrhea1 08/23/14 Active 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 Gastritis3 08/22/14 Active Hypoglycemia(Confirmed) Resolved Multiple joint pain4 08/22/14 Active Muscle pain5 08/22/14 Active Nausea6 08/22/14 Active Numbness7 08/08/14 Active Obesity(Confirmed) Active Reactive hypoglycemia8 08/08/14 Active Screening mammography9 08/23/14 Active Dtmgvpjpc97, 11 12/08/11 Resolved Vitamin D [id number] 08/23/14 Active 1Data migrated from [employer] [...] from [employer] on 10/13/14.12Data migrated from [employer] on 10/04/14. Allergies, Adverse Reactions, Alerts Substance [...] Reg Smoking Cessation Counseling No entered on: 01/05/18 [id number] Assessment and Plan No data available for this section
--- OUTSIDE RECORDS SUMMARY | 2018-06-19 20:46 | XMS REPORT | Summary of Care ---
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 Gastritis3 08/22/14 Active Hypoglycemia(Confirmed) Resolved Multiple joint pain4 08/22/14 Active Muscle pain5 08/22/14 Active Nausea6 08/22/14 Active Numbness7 08/08/14 Active Obesity(Confirmed) Active Reactive hypoglycemia8 08/08/14 Active Screening mammography9 08/23/14 Active Lbmsgfzch23, 11 12/08/11 Resolved Vitamin D [id number] 08/23/14 Active 1Data migrated from [employer] [...] Active Food Iodine Active NSAIDs Active Medications Bactrim DS 800 mg- 160 mg oral tablet 1 tab, PO, BID, X 7 day, # 14 tab, 0 Refill(s), Pharmacy: [facility] [id number] Start Date: 06/16/18 Stop Date: 06/23/18 Status: OrderedclonazePAM 0.5 mg oral tablet 0.5 mg=1 tab, PO, Daily, PRN Anxiety, # 30 tab, 1 Refill(s) Start Date: 06/16/18 Status: OrderedNulev 0.125 mg oral tablet, disintegrating 0.125 mg=1 tab, PO, QID, PRN Spasm, # 40 tab, 1 Refill(s), Pharmacy: [facility] [id number] Start Date: 06/16/18 Status: Ordered Results No data available for [...] Smoking Cessation Counseling No entered on: 06/14/18 [id number] Assessment and Plan No data available for this section
--- OUTSIDE RECORDS SUMMARY | 2018-06-19 20:47 | XMS REPORT ---
:1955 Author Organization [facility] Address [address] [place] [address] [address] [place] [address] Care Team Providers Name Role Phone Unavailable [...]
[2018-06-19] MEDS ORDERED: MAGNE/ALUM HYDROXD 30 ML UCUP ONE (21:14)
[2018-06-19] MEDS ORDERED: LIDOCAINE VISCOUS 2% SOLN 15 ML UDC ONE (21:14)
[2018-06-19] MEDS ORDERED: PANTOPRAZOLE 40 MG INJ ONE (21:27)
[2018-06-19] MEDS ORDERED: ONDANSETRON 4 MG/2 ML VIAL ONE (21:27)
[2018-06-19 21:35] LABS: Absolute Lymphocytes (CBC) 2.5 K/uL (0.7-4.9); Absolute Monocytes 0.6 K/uL (0.1-1.3); Absolute Neutrophil 3.9 K/uL (1.8-8.0); Basophils % 1.3 % (0-1.3); Eosinophils % 1.6 % (0-4.4); Lymphocytes % 35.3 % (15.3-44.8); MPV 9.7 fL (7.6-11.3); RBC Red Blood Cell Count 5.31 M/uL (3.86-4.86)
[2018-06-19 21:47] LABS: Urine Appearance CLEAR; Urine Bilirubin NEGATIVE (NEG); Urine Blood NEGATIVE (NEG); Urine Color YELLOW; Urine Glucose NEGATIVE (NEG); Urine Protein NEGATIVE (NEG); Urine Specific Gravity 1.025 (1.005-1.030); Urine Urobilinogen 0.2 mg/dL (0.2-1.0); Urine pH 5.5 (5.0-7.0)
[2018-06-19 22:00] LABS: Albumin 4.2 g/dL (3.4-5.0); Bilirubin Direct 0.2 mg/dL (0-0.2); Bilirubin Total 0.7 mg/dL (0.2-1.0); Potassium 3.9 mmol/L (3.5-5.1); Protein, Total 7.6 g/dL (6.4-8.2)
[2018-06-19 22:01] LABS: Urine Microscopic Reflex ORDER UMIC
[2018-06-19 22:13] LABS: Calcium Oxalate Crystals- Ur MODERATE (NONE SEEN); Urine Bacteria <20 /HPF (<20); Urine Culture Reflex Order NOT NEEDED; Urine RBC <5 /HPF (NONE SEEN)
[2018-06-19 22:14] LABS: Urine Bacteria <20 /HPF (<20); Urine RBC <5 /HPF (NONE SEEN)
[2018-06-19] MEDS ORDERED: NA CHLORIDE 0.9% 1,000 ML ONE (22:14)
[2018-06-19 22:15] LABS: Calcium Oxalate Crystals- Ur MODERATE (NONE SEEN); Urine Culture Reflex Order NOT NEEDED
--- NOTE | 2018-06-19 23:03 | EDPHYS ---
Physician Documentation [facility] Name: Tracey Rodriguez Age: 62 yrs Sex: Female : 1955 Arrival Date: 06/19/2018 Time: 20:36 Bed 7 Private MD: Jordan Doll V ED Physician Oh Borrego HPI: 06/20 06:41 This 62 yrs old Female presents to ER via Ambulatory with complaints of tw4 Abdominal Pain. 06:41 The patient presents with abdominal pain. Onset: The symptoms/episode began/occurred 3 tw4 day(s) ago. The symptoms do not radiate. Associated signs and symptoms: Pertinent positives: diarrhea. The symptoms are described as crampy. Modifying factors: The symptoms are alleviated by nothing, the symptoms are aggravated by nothing. The patient has not experienced similar symptoms in the past. Historical: - Allergies: 06/19 21:11 anti-inflammatory (all); bb 21:11 Ciprofloxacin; bb 21:11 Levaquin; bb 21:11 fluoroquinolones; bb - PMHx: 21:11 Diverticulitis; Hypoglycemic; Hypothyroidism; UTI; bb - PSHx: 21:11 Cholecystectomy; Tubal ligation; carpal tunnel; bb - Immunization history:: Adult Immunizations up to date, Flu vaccine is not up to date. - Social history:: Smoking status: Patient/guardian denies using tobacco, Patient/guardian denies using alcohol, street drugs. - Ebola Screening: : No symptoms or risks identified at this time. ROS: 06/20 06:41 Constitutional: Negative for fever, chills, and weight loss, Cardiovascular: Negative tw4 for chest pain, palpitations, and edema, Respiratory: Negative for shortness of breath, cough, wheezing, and pleuritic chest pain, Back: Negative for injury and pain, MS/Extremity: Negative for injury and deformity, Skin: Negative for injury, rash, and discoloration. Abdomen/GI: Positive for abdominal pain, Negative for nausea and vomiting, nausea, vomiting, and diarrhea, nausea, vomiting, diarrhea, black/tarry stool, rectal pain, rectal bleeding. Exam: 06:41 Constitutional: This is a well developed, well nourished patient who is awake, alert, tw4 and in no acute distress. Head/Face: Normocephalic, atraumatic. Chest/axilla: Normal chest wall appearance and motion. Nontender with no deformity. No lesions are appreciated. Cardiovascular: Regular rate and rhythm with a normal S1 and S2. No gallops, murmurs, or rubs. Normal PMI, no JVD. No pulse deficits. Respiratory: Lungs have equal breath sounds bilaterally, clear to auscultation and percussion. No rales, rhonchi or wheezes noted. No increased work of breathing, no retractions or nasal flaring. Back: No spinal tenderness. No costovertebral tenderness. Full range of motion. Skin: Warm, dry with normal turgor. Normal color with no rashes, no lesions, and no evidence of cellulitis. MS/ Extremity: Pulses equal, no cyanosis. Neurovascular intact. Full, normal range of motion. 06:41 Abdomen/GI: Inspection: abdomen appears normal, Bowel sounds: diminished, in all quadrants, Palpation: moderate abdominal tenderness, in the left upper quadrant. Vital Signs: 06/19 21:11 BP 138 / 70; Pulse 77; Resp 16 S; Temp 98.1(O); Pulse Ox 98% on R/A; Weight 82.55 kg bb (R); Height 5 ft. 3 in. (160.02 cm) (R); Pain 5/10; 21:52 BP 107 / 57; Pulse 78; Resp 18; Pulse Ox 95% on R/A; aa1 23:00 BP 112 / 68; Pulse 77; Resp 16; Pulse Ox 96% on R/A; Pain 0/10; aa1 21:11 Body Mass Index 32.24 (82.55 kg, 160.02 cm) bb MDM: 20:54 Patient medically screened. tw4 06/20 06:41 Differential diagnosis: AAA, gastritis, gastroesophageal reflux disease, Peptic Ulcer tw4 Disease, Perf. Duodenal Ulcer, Perf. Gastric Ulcer. Data reviewed: vital signs, nurses notes. Counseling: I had a detailed discussion with the patient and/or guardian regarding: the historical points, exam findings, and any diagnostic results supporting the discharge/admit diagnosis, lab results, radiology results. Medication response: Zofran markedly relieved the patient's nausea. Response to treatment: and as a result, I will discharge patient. Special discussion: Based on the patient's Hx, exam, and Dx evaluation, there is no indication for emergent surgery or inpatient Tx. It is understood by the patient/guardian that if the Sx's persist or worsen they need to return immediately for re-evaluation. I discussed with the patient/guardian in detail that at this point there is no indication for admission to the hospital. It is understood, however, that if the symptoms persist or worsen the patient needs to return immediately for re-evaluation. 06/19 20:55 Order name: Basic Metabolic Panel [facility] 06/19 20:55 Order name: CBC with Diff [facility] 06/19 20:55 Order name: Creatinine for Radiology [facility] 06/19 20:55 Order name: Hepatic Function [facility] 06/19 20:55 Order name: Lipase [facility] 06/19 20:55 Order name: Urinalysis [facility] 06/19 20:55 Order name: Urine Microscopic Only [facility] 06/19 20:55 Order name: Basic Metabolic Panel [facility] 06/19 20:55 Order name: CBC with Automated Diff; Complete Time: 21:58 [facility] 06/19 21:58 Interpretation: Normal except: RBC 5.31; HGB 15.7; HCT 47.0. [facility] 06/19 20:55 Order name: Creatinine (Radiology Only) [facility] 06/19 22:01 Order name: Urine Microscopic Only [facility] 06/19 20:55 Order name: IV Saline Lock; Complete Time: 21:43 [facility] 06/19 20:55 Order name: Labs collected and sent; Complete Time: 21:28 [facility] Administered Medications: 06/19 21:08 Drug: GI Cocktail without - (Maalox Suspension 30 ml, Lidocaine Liquid 2 % 15 aa1 ml) Route: PO; 23:12 Follow up: Response: No adverse reaction; Marked relief of symptoms aa1 21:20 Drug: Zofran 4 mg Route: IVP; Site: left antecubital; aa1 23:15 Follow up: Response: No adverse reaction; Marked relief of symptoms aa1 21:20 Drug: ProTONIX 40 mg Route: IVP; Site: left antecubital; aa1 23:13 Follow up: Response: No adverse reaction; Marked relief of symptoms aa1 22:06 Drug: NS 0.9% 1000 ml Route: IV; Rate: 1 bolus; Site: left antecubital; aa1 23:12 Follow up: IV Status: Completed infusion; IV Intake: 800ml aa1 Disposition: 06/19/18 23:02 Discharged to Home. Impression: Diarrhea, unspecified, Other abdominal pain, Gastritis, unspecified. - Condition is Stable. - Discharge Instructions: Food Choices to Help Relieve Diarrhea, Adult, Diarrhea, Adult, Gastritis, Adult, [id number]. - Prescriptions for Protonix 40 mg Oral Tablet - take 1 tablet by ORAL route once daily; 30 tablet. Zofran 4 mg Oral Tablet - take 1 tablet by ORAL route every 12 hours As needed; 6 tablet. Lomotil 2.5- 0.025 mg Oral Tablet - take 2 tablet by ORAL route once daily As needed; 20 tablet. - Medication Reconciliation Form, Thank You Letter, Antibiotic Education, Prescription Opioid Use form. - Follow up: Jordan Doll MD; When: Upon discharge from the Emergency Department; Reason: If symptoms return, Recheck today's complaints, Continuance of care. - Problem is new. - Symptoms have improved. Signatures: Dispatcher [employer] EDMS Carlie Stevens RN RN aa1 Alice Traore RN RN bb Oh Borrego MD MD tw4 Corrections: (The following items were deleted from the chart) 23:18 23:02 06/19/2018 23:02 Discharged to Home. Impression: Diarrhea, unspecified; Other aa1 abdominal pain; Gastritis, unspecified. Condition is Stable. Forms are Medication Reconciliation Form, Thank You Letter, Antibiotic Education, Prescription Opioid Use. Follow up: Jordan Doll; When: Upon discharge from the Emergency Department; Reason: If symptoms return, Recheck today's complaints, Continuance of care. Problem is new. Symptoms have improved. tw4
--- NOTE | 2018-06-19 23:03 | ER ---
Nurse's Notes [facility] Name: Tracey Rodriguez Age: 62 yrs Sex: Female : 1955 Arrival Date: 06/19/2018 Time: 20:36 Bed 7 Private MD: Jordan Doll V Diagnosis: Diarrhea, unspecified;Other abdominal pain;Gastritis, unspecified Presentation: 06/19 21:07 Presenting complaint: Patient states: she is having left upper abdominal pain for bb several days after seeing PCP and started on several different antibiotics for ear infection, possible diverticulitis or possible UTI. Transition of care: patient was not received from another setting of care. Onset of symptoms was June 16, 2018. Risk Assessment: Do you want to hurt yourself or someone else? Patient reports no desire to harm self or others. Initial Sepsis Screen: Does the patient meet any 2 criteria? No. Patient's initial sepsis screen is negative. Does the patient have a suspected source of infection? No. Patient's initial sepsis screen is negative. Care prior to arrival: None. 21:07 Method Of Arrival: Ambulatory bb 21:07 Acuity: ANUJA 3 bb Historical: - Allergies: 21:11 anti-inflammatory (all); bb 21:11 Ciprofloxacin; bb 21:11 Levaquin; bb 21:11 fluoroquinolones; bb - PMHx: 21:11 Diverticulitis; Hypoglycemic; Hypothyroidism; UTI; bb - PSHx: 21:11 Cholecystectomy; Tubal ligation; carpal tunnel; bb - Immunization history:: Adult Immunizations up to date, Flu vaccine is not up to date. - Social history:: Smoking status: Patient/guardian denies using tobacco, Patient/guardian denies using alcohol, street drugs. - Ebola Screening: : No symptoms or risks identified at this time. Screenin:10 Abuse screen: Denies threats or abuse. Denies injuries from another. Nutritional aa1 screening: No deficits noted. Tuberculosis screening: No symptoms or risk factors identified. Fall Risk None identified. Assessment: 21:10 General: Appears in no apparent distress. comfortable, Behavior is calm, cooperative, aa1 appropriate for age. Pain: Complains of pain in left upper quadrant Pain radiates to left mid back Pain began 2-3 days ago. Neuro: Level of Consciousness is awake, alert, obeys commands, Oriented to person, place, time, situation, Moves all extremities. Full function Gait is steady, Speech is normal. Cardiovascular: Heart tones S1 S2 present Rhythm is regular. Respiratory: Airway is patent Respiratory effort is even, unlabored, Respiratory pattern is regular, symmetrical. GI: Abdomen is non-distended, Bowel sounds present X 4 quads. Abd is soft X 4 quads Abdomen is tender to palpation in left upper quadrant Reports upper abdominal pain, Patient currently denies constipation, diarrhea, vomiting. : No signs and/or symptoms were reported regarding the genitourinary system. EENT: No signs and/or symptoms were reported regarding the EENT system. Derm: Skin is intact, is healthy with good turgor, Skin is pink, warm \T\ dry. Musculoskeletal: Circulation, motion, and sensation intact. Capillary refill < 3 seconds. 22:00 Reassessment: Patient appears in no apparent distress at this time. Patient and/or aa1 family updated on plan of care and expected duration. Pain level reassessed. Patient is alert, oriented x 3, equal unlabored respirations, skin warm/dry/pink. Awaiting lab results. 23:15 Reassessment: Patient appears in no apparent distress at this time. Patient is alert, aa1 oriented x 3, equal unlabored respirations, skin warm/dry/pink. Pt reports she is feeling much better. Discussed d/c \T\ f/u instructions with pt \T\ spouse; denies questions or concerns at this time. Amb to lobby with steady gait Patient denies pain at this time. Patient states feeling better. Vital Signs: 21:11 BP 138 / 70; Pulse 77; Resp 16 S; Temp 98.1(O); Pulse Ox 98% on R/A; Weight 82.55 kg bb (R); Height 5 ft. 3 in. (160.02 cm) (R); Pain 5/10; 21:52 BP 107 / 57; Pulse 78; Resp 18; Pulse Ox 95% on R/A; aa1 23:00 BP 112 / 68; Pulse 77; Resp 16; Pulse Ox 96% on R/A; Pain 0/10; aa1 21:11 Body Mass Index 32.24 (82.55 kg, 160.02 cm) ED Course: 20:36 Patient arrived in ED. mr 20:36 Jordan Doll MD is Private Physician. mr 20:54 Oh Borrego MD is Attending Physician. tw4 21:07 Carlie Stevens, RN is Primary Nurse. aa1 21:09 Triage completed. bb 21:10 Patient has correct armband on for positive identification. Placed in gown. Bed in low aa1 position. Call light in reach. Pulse ox on. NIBP on. Warm blanket given. 21:11 Arm band placed on Patient placed in an exam room, on a stretcher, on pulse oximetry. bb Family accompanied patient. 21:27 Initial lab(s) drawn, by me, sent to lab. Inserted saline lock: 22 gauge in left lt1 antecubital area, using aseptic technique. 23:01 Jordan Doll MD is Referral Physician. tw4 23:17 No provider procedures requiring assistance completed. IV discontinued, intact, aa1 bleeding controlled, No redness/swelling at site. Pressure dressing applied. Administered Medications: 21:08 Drug: GI Cocktail without - (Maalox Suspension 30 ml, Lidocaine Liquid 2 % 15 aa1 ml) Route: PO; 23:12 Follow up: Response: No adverse reaction; Marked relief of symptoms aa1 21:20 Drug: Zofran 4 mg Route: IVP; Site: left antecubital; aa1 23:15 Follow up: Response: No adverse reaction; Marked relief of symptoms aa1 21:20 Drug: ProTONIX 40 mg Route: IVP; Site: left antecubital; aa1 23:13 Follow up: Response: No adverse reaction; Marked relief of symptoms aa1 22:06 Drug: NS 0.9% 1000 ml Route: IV; Rate: 1 bolus; Site: left antecubital; aa1 23:12 Follow up: IV Status: Completed infusion; IV Intake: 800ml aa1 Intake: 23:12 IV: 800ml; Total: 800ml. aa1 Outcome: 23:02 Discharge ordered by . tw4 23:17 Discharged to home ambulatory, with significant other. aa1 23:17 Condition: good 23:17 Discharge instructions given to patient, significant other, Instructed on discharge instructions, follow up and referral plans. medication usage, Demonstrated understanding of instructions, follow-up care, medications, Prescriptions given X 3. 23:18 Patient left the ED. aa1 Signatures: Carlie Stevens RN RN aa1 Francisco, Alice Hampton, DOLORES RN bb Oh Borrego MD MD tw4 Sarah Adames 1
== END 2018-06-19 23:18 | disposition home or self-care (01) ==
LOC: ER 20:33
DX: K29.70 Gastritis, unspecified, without bleeding (principal); R19.7 Diarrhea, unspecified; Z88.1 Allergy status to other antibiotic agents; Z88.5 Allergy status to narcotic agent; Z88.8 Allergy status to other drugs, medicaments and biological substances
CPT/HCPCS: 36415; 80048; 80076; 81003; 81015; 83690; 85025; 96361; 96374; 96375; 99284; C9113; J2405; J7030

== ENCOUNTER 2018-09-12 19:54 | Emergency (ER) | payer OTHER ==
--- OUTSIDE RECORDS SUMMARY | 2018-09-12 19:56 | XMS REPORT | Clinical Summary ---
:1955 Author Organization [facility] Address [address] [place] [address] Care Team Providers Name Role Phone Carlos Anguiano MD Primary Care Provider Allergies Active Allergy Reactions Severity Noted Date Comments Ciprofibrate Swelling 04/08/2016 Ciprofloxacin 06/05/2017 Levofloxacin Swelling 04/08/2016 Nsaids (Non-Steroidal Anti-Inflammatory Drug) Swelling 04/08/2016 Sulfa (Sulfonamide Antibiotics) 06/05/2017 Medications Medication Sig Dispensed Refills Start Date End Date Status ARMOUR THYROID 30 mg TK 1 T PO QD. 1 01/30/2016 Active tablet Active Problems Not on file Family History [...] Health Maintenance Due Date Last Done Comments BREAST CANCER SCREENING 2006 COLONOSCOPY SCREENING 2006 SHINGLES VACCINES (#1) 2006 INFLUENZA VACCINE 10/28/2018 Results Not on fileafter 09/11/2017 (Home) [address] [place] [id number] Advance Directives Patient has advance care planning documents on file. For more information, please contact:Juancarlos Ventura[address] [place] [address]
--- OUTSIDE RECORDS SUMMARY | 2018-09-12 20:04 | XMS REPORT | Continuity of Care Document ---
:1955 Author Organization Interface Problems Problem Status Onset Classification Date Comments Source Date Reported F/U AND 2ND OPINION Active [address] Acute sinusitis, 07/25/2018 OPID unspecified 018 [place] KNEE PAIN Active [facility] [address] [place] BDDC-NAUSEA, EARLY Active [facility] 017 [facility] STOMACH PAIN Active [address] Discharge Diagnosis: 09/19/2015 [place] Adult hypothyroidism [address] [place] WEAKNES AND BLURY Active [facility] VISION 016 [place] BDDC - NEW PT CONSULT Active [address] BDDC/ Z12.11 SCREENING Active [facility] FOR MALIGNANT ALICIA [address] [place] [address] PAIN IN THE ABDOMEN; Active [facility] UPPER AND [address] VITAMIN D DEFICIENCY Active Condition 08/23/2014 015 [facility] DIARRHEA Active Condition 08/23/2014 015 [facility] MAMMOGRAM YEARLY Active Condition 08/23/2014 SCREENING 015 Medical Group Diarrhea<sup>1</sup> Resolved Problem 09/09/2018 Data 015 migrated Medical from [facility], on 10/04/14. [facility], JESSICA Cody, OPID [place], [place] Screening Active Problem 09/09/2018 Data mammography<sup>9</sup 015 migrated Medical > from [facility], on 10/04/14. [facility], JESSICA Cody, OPID [place], [facility] Vitamin D Active Problem 09/09/2018 Data deficiency<sup>12</sup 015 migrated Medical > from [facility], on 10/04/14. [facility], JESSICA Cody, OPID [place], [facility] MYALGIA Active Condition 08/23/2014 015 [facility] PAIN IN JOINT, Active Condition 08/23/2014 MULTIPLE SITES 015 [facility] Group GASTRITIS Active Condition 08/23/2014 015 [facility] Group Gastritis<sup>3</sup> Active Problem 09/09/2018 Data 015 migrated Medical from [facility], on 10/04/14. [facility], OPID Escobar, OPID [place], [facility] Multiple joint Active Problem 09/09/2018 Data pain<sup>4</sup> 015 migrated Medical from [facility], on 10/04/14. [facility], OPID Escobar, OPID [place], [place] Muscle Active Problem 09/09/2018 Data pain<sup>5</sup> 015 migrated Medical from [facility], on 10/04/14. [facility], OPIFernando Cody, OPID Pilger, [facility] Nausea<sup>6</sup> Active Problem 09/09/2018 Data 015 migrated Medical from [facility], on 10/04/14. [facility], OPIFernando Cody, OPID [place], [facility] HYPOGLYCEMIA, REACTIVE Active Condition 08/23/2014 015 [facility] Group ROUTINE GENERAL Active Condition 08/23/2014 MEDICAL EXAMINATION AT [address] [place] [address] [facility]ALTH CARE FACILITY Group NUMBNESS Active Condition 08/23/2014 015 [facility] Group PINWORMS Active Condition 08/23/2014 015 Medical Group Enterobiasis<sup>2</rosenberg Active Problem 09/09/2018 Data p> 015 migrated Medical from [facility], on 10/04/14. [facility], OPIFernando Cody, OPID [place], [facility] Numbness<sup>7</sup> Active Problem 09/09/2018 Data 015 migrated Medical from [facility], on 10/04/14. [facility], OPID Cody, OPID Pilger, [facility] Reactive Active Problem 09/09/2018 Data hypoglycemia<sup>8</rosenberg 015 migrated Medical p> from Group,[facility], on 10/04/14. [facility], OPID Cody, OPID Pilger, [facility] BACK PAIN, LUMBAR, Active Condition 08/23/2014 WITH [...] 08/23/2014 012 Medical Group Sinusitis<sup>10, Resolved Problem 09/09/2018 Data 11</sup> 012 migrated Medical from [facility], on 10/13/14. [facility], OPID Cody, OPID Pilger, [facility] ASTHMA Active Condition 08/23/2014 Medical Group HEADACHE Inactive Condition 08/23/2014 Medical Group HYPERCHOLESTEROLEMIA Active Condition 08/23/2014 Medical Group FAMILY HISTORY OF Active Condition 08/23/2014 ASTHMA Medical Group FH LUNG CANCER Active Condition 08/23/2014 Medical Group FH DEPRESSION Active Condition 08/23/2014 Medical Group FH DIABETES - DM Active Condition 08/23/2014 Medical Group FH HEART DISEASE Active Condition 08/23/2014 Medical Group Hypoglycemia Resolved Problem 09/09/2018 Medical Group,[facility], [facility], OPID Cody, OPID Pilger, [facility] Obesity Active Problem 09/09/2018 Medical Group,[facility], [facility], OPID Cody, OPID Pilger, [place] Autoimmune disease Active Problem 09/09/2018 Medical Group,[facility] Medications Medication Details Route Status Patient Ordering Order Source Instructions Provider Date fluconazole 150 mg See Active oral tablet Instruction 019 Medical s, 1 tab PO Group ONCE a week, # 2 tab, 0 Refill(s), Pharmacy: [facility] [address] ciclopirox 7.7 1 appl, Active MG/ML Topical TOP, BID, X 019 Medical Cream 28 day, # Group 90 gm, 0 Refill(s), Pharmacy: [facility] [address] rifaximin 550 MG 550 mg=1 Active [place] Oral Tablet tab, PO, 019 Medical [XIFAXAN] TID, # 42 Center tab, 0 Refill(s), Pharmacy: [facility] pantoprazole 40 mg, PO, Active MH [place] Daily, # 30 019 Medical tab, 0 Center Refill(s) Hyoscyamine 0.125 mg=1 Active MH Sulfate 0.125 MG tab, PO, 019 Medical Disintegrating QID, PRN Group Tablet [Nulev] Spasm, # 40 tab, 1 Refill(s), Pharmacy: [facility] [address] Sulfamethoxazole 1 tab, PO, Active MH 800 MG / BID, X 7 019 Medical Trimethoprim 160 day, # 14 Group MG Oral Tablet tab, 0 [Bactrim] Refill(s), [facility]: [facility] [address] clonazePAM 0.5 mg 0.5 mg=1 Active MH oral tablet tab, PO, 019 Medical Daily, PRN Group Anxiety, # 30 tab, 1 Refill(s) Metronidazole 500 500 mg=1 Active MH MG Oral Tablet tab, PO, 019 Medical [Flagyl] Q8H, X 10 Group day, # 30 tab, 0 Refill(s), Pharmacy: [facility] [address] Amoxicillin 875 MG 875 mg=1 Active MH / Clavulanate 125 tab, PO, 019 Medical MG Oral Tablet Q12H, X 10 Group [Augmentin 875-mg] day, # 20 tab, 0 Refill(s), Pharmacy: [facility] [address]50 Nystatin 340669 1,000,000 No Longer MH UNT Oral Tablet unit=2 tab, Active 018 Medical PO, BID, X Group 30 day, # 120 tab, 0 Refill(s), Pharmacy: [facility] [address] sucralfate 1 g 1 gm=1 tab, Active MH oral tablet PO, QID, # 018 Medical 120 tab, 0 Group Refill(s), Pharmacy: [facility] [address]682 benzonatate 100 MG 100 mg=1 No Longer MH Oral Capsule cap, PO, Active 018 Medical [Tessalon Perles] TID, PRN as Group needed for cough, X 7 day, # 21 cap, 0 Refill(s), Pharmacy: [facility] [address]74 Azithromycin 5 Day See No Longer Dose Pack 250 mg Instruction Active 018 Medical oral tablet s, Take 2 Group tablets by mouth the first day then 1 tablet by mouth days 2-5., X 5 day, # 6 tab, 0 Refill(s), [facility] [address] doxycycline 100 mg=1 Active hyclate 100 MG tab, PO, 018 Medical Oral Tablet BID, 0 Group Refill(s) clonazePAM 0.5 mg 0.5 mg=1 No Longer oral tablet, tab, PO, Active 018 Medical disintegrating BID, # 60 Group tab, 1 Refill(s) valACYclovir 1 g 1 gm=1 tab, No Longer oral tablet PO, Q8H, X Active 018 Medical 10 day, # Group 30 tab, 1 Refill(s), [facility] pregabalin 50 MG 50 mg=1 Active Oral Capsule cap, PO, 018 Medical [Lyrica] TID, # 90 Group cap, 0 Refill(s) valACYclovir 1 g 1 gm=1 tab, No Longer MH oral tablet PO, Q8H, X Active 018 Medical 7 day, # 21 Group tab, 1 Refill(s), [facility] valACYclovir 1 g 1 gm=1 tab, No Longer MH oral tablet PO, Q8H, X Active 018 Medical 7 day, # 21 Group tab, 1 Refill(s), Pharmacy: [facility] 83161 polyethylene 17 gm, PO, No Longer glycol 3350 oral Daily, X 31 Active 018 Medical powder for day, # 527 Group reconstitution gm, 1 Refill(s), Pharmacy: [facility] [address] benzonatate 100 mg 100 mg=1 Active oral capsule cap, PO, 018 Medical TID, do not Group crush or chew, X 10 day, # 30 cap, 0 Refill(s), Pharmacy: [facility] [address]08 Codeine Phosphate 5 mL, PO, Active MH 2 MG/ML / Q12H, PRN 018 Medical Guaifenesin 20 cough, X 10 Group MG/ML Oral day, # 100 Solution mL, 0 [Cheratussin] Refill(s) Fluticasone 1 spray, Active propionate 0.05 NASAL, BID, 018 Medical MG/ACTUAT Metered # 16 gm, 2 Group Dose Nasal [place] Refill(s), Pharmacy: [facility] [address] Azithromycin 5 Day See Active Dose Pack 250 mg Instruction 018 Medical oral tablet s, Take 2 Group tablets by mouth the first day then 1 tablet by mouth days 2-5., X 5 day, # 6 tab, 0 Refill(s), Pharmacy: [facility] [address] clonazePAM 0.5 mg 0.5 mg=1 Active oral tablet, tab, PO, 017 Medical disintegrating BID, # 60 Group tab, 1 Refill(s) EnteraGam EnteraGam, Active [facility] See 016 Medical Instruction Center s, Samples given in clinic on 03/12/16. Lot [id number] exp date 10/15, # 1 box, Refill(s) 0 pantoprazole 40 MG 40 mg=1 Active [facility] Enteric Coated tab, PO, 016 [...] 30 Center [Levsin] tab, 1 Refill(s), Pharmacy: [facility] 78[address] Ondansetron 8 MG 8 mg=1 tab, Active [place] Disintegrating PO, TID, 015 Medical Tablet [Zofran] PRN Nausea Center and Vomiting, Dissolve tab under tongue, X 7 day, # 21 tab, 1 Refill(s), [facility] [address] GoLYTELY oral 240 mL, PO, Active [place] powder for Q10Min, # 1 015 Medical reconstitution ea, 0 Center Refill(s), [facility] [address] Flagyl 500 mg=1 Active [place] tab, PO, 015 Medical BID, # 14 Center tab, 0 Refill(s) VITAMIN D 1 capsule Active (ERGOCALCIFEROL) weekly x 12 015 Medical 19899 UNIT CAPS weeks Group OMEPRAZOLE 20 MG Take one Active CPDR capsule by 015 Medical mouth daily Group ONDANSETRON HCL 4 1 tablet Active MG TABS every 8 015 Medical hours as Group needed for nausea/vomi ting QSYMIA 3.75-23 MG 1 po qd Active [id number] 015 Medical Group CYCLOBENZAPRINE 1/2-1 po No Longer HCL 10 MG TABS TID as Active 015 Medical needed for Group spasms PROMETHAZINE HCL 1 SUPP MA Q No Longer MH 25 MG SUPP [...] MG # 24 tab, 0 Oral Tablet [[place] Refill(s) 5/325] Phenergan 25 mg, 1 Inactive [...] Longer MH SUSP Active 013 Medical Group CARAFATE 1 [...] GLUMETZA 500 MG 1 po qd Active [id number] 013 Medical Group NULEV 0.125 MG 1 [...] 01/05 - OPID views DX views - [place] INDICATION: - J01.90 Acute sinusitis, unspecified Read [...] CT contrast CT DATE: 03/25/2016 10:52 AM 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 In most young, healthy individuals the eGFR will be >90 mL/ min/1.73m2. The eGFR declines with age. An eGFR of 60-89 may be normal in [place] mL/min/1.7 /2016 some populations, particularly the elderly, for whom [...] meq/L 3.5 - 5.1 09/15 [place] Lvl /2015 [place] CHEM PANEL CO2 28 meq/L 24 [...] WBC 8.8 K/CMM 3.7 - 10.4 09/15 /2015 [place] HEMATOLOGY RBC 5.39 M/CMM 4.20 - 09/15 [place] 5.40 /2015 [place] HEMATOLOGY MCV 88.0 fL 80.0 - [...] 13.3 % 11.5 - 09/15 [place] 14.5 [place] HEMATOLOGY Hct 47.5 % 36.0 - 09/15 [place] 48.0 [place] HEMATOLOGY Basophils 0.5 % 0.0 - 1.0 09/15 [place] /2015 [place] HEMATOLOGY Eosinophils 1.1 % 0.0 - 4.0 09/15 [place] /2015 [place] HEMATOLOGY Monocytes 6.3 % 2.0 - 12.0 09/15 [place] /2015 [place] HEMATOLOGY Segs 54.0 % 45.0 - 09/15 [place] 75.0 /2015 [place] HEMATOLOGY Lymphocytes 38.1 % 20.0 - 09/15 [place] 40.0 [place] HEMATOLOGY Basophils # 0.0 K/CMM 0.0 - 0.2 09/15 [place] /2015 [place] HEMATOLOGY Eosinophils 0.1 K/CMM 0.0 - 0.5 09/15 [place] # /2015 [place] HEMATOLOGY Monocytes # 0.6 K/CMM 0.0 - 0.8 09/15 [place] /2015 [place] HEMATOLOGY Lymphocytes 3.4 K/CMM 1.0 - 5.5 09/15 [place] # /2015 [place] HEMATOLOGY Segs-Bands # 4.7 K/CMM 1.5 - 8.1 09/15 [place] URINE AND UA Mucus None Seen None Seen 09/15 [place] STOOL /2015 [place] (09/16/15 5:47 PM) URINE AND UA Bacteria Occasional None Seen 09/15 [place] STOOL /HPF /HPF /2015 [place] URINE AND UA Nitrite Negative Negative 09/15 [place] STOOL [place] (09/16/15 5:47 PM) URINE AND UA Glucose Negative Negative 09/15 [place] STOOL [facility] (09/16/15 5:47 PM) URINE AND UA Sq Epi Occasional Few /LPF 09/15 [place] STOOL /LPF URINE AND UA WBC 0-2 /HPF None Seen 09/15 [place] STOOL /HPF URINE AND UA RBC None Seen 0 - 2 09/15 [place] STOOL [facility] (09/16/15 5:47 PM) URINE AND Micro? Performed 09/15 [place] STOOL [facility] (09/16/15 5:47 PM) URINE AND UA Leuk Est Negative Negative 09/15 [place] STOOL [facility] (09/16/15 5:47 PM) URINE AND UA Protein Negative Negative 09/15 [place] STOOL [facility] (09/16/15 5:47 PM) URINE AND UA pH 6.0 5.0 - 8.0 09/15 [place] STOOL [facility] URINE AND UA Bili Negative Negative 09/15 Sugar [facility] *NA* (09/16/15 5:47 PM) URINE AND UA Ketones Negative Negative 09/15 [place] STOOL [facility] *NA* (09/16/15 5:47 PM) URINE AND UA 0.2 EU/dL 0.1 - 1.0 09/15 [place] STOOL Urobilinogen [facility] URINE AND UA Blood Trace Negative 09/15 [place] STOOL [facility] *ABN* (09/16/15 5:47 PM) URINE AND UA Turbidity Clear Clear 09/15 [place] STOOL [facility] (09/16/15 5:47 PM) URINE AND UA Color Yellow Yellow 09/15 [place] STOOL [facility] *NA* (09/16/15 5:47 PM) URINE AND UA Spec Grav 1.025 <=1.030 09/15 [place] STOOL [facility] Brain wo Brain wo CLINICAL HISTORY:Syncope. 09/15 - [place] contrast CT contrast CT [facility] AGE: 59 years GENDER: Female Read [...] HISTORY: Syncope 09/15 - [place] DX DX /2016 - [place] AGE: 59 years GENDER: Female [...] w IV is w IV /2014 - [facility] contrast CT contrast CT [place] HISTORY: Left [...] diverticulitis. Serology HELICOB IGG 0.6 U/mL 08/23 [facility] Chemistry T4, FREE 0.96 ng/dl 0.76 - 08/22 1.46 /2014 [facility] Hematology ESR 1 mm/hr 0 - 20 08/22 [facility] Serology RHONDA Negative 08/22 Medical [facility] URINE AND UA Bacteria Occasional None Seen 11/30 [place] STOOL /HPF /HPF /2013 [facility] URINE AND UA RBC 0-2 /HPF 0 - 2 11/30 Sugar [facility] URINE AND UA Sq Epi Few /LPF Few /LPF 11/30 Sugar [facility] URINE AND UA WBC 0-2 /HPF None Seen 11/30 [place] STOOL /[facility] URINE AND UA Bili Negative Negative 11/30 Sugar [facility] *NA* (11/30/13 2:00 PM) URINE AND UA Blood Trace Negative 11/30 Sugar [facility] *ABN* (11/30/13 2:00 PM) URINE AND UA 0.2 EU/dL 0.1 - 1.0 11/30 Sugar [facility] Urobilinogen [facility] URINE AND UA pH 6.0 5.0 - 8.0 11/30 Sugar [facility] URINE AND UA Ketones Negative Negative 11/30 [place] STOOL [facility] *NA* (11/30/13 2:00 PM) URINE AND UA Protein Negative Negative 11/30 [place] STOOL [facility] (11/30/13 2:00 PM) URINE AND UA Glucose Negative Negative 11/30 [place] STOOL [facility] (11/30/13 2:00 PM) URINE AND UA Turbidity Clear Clear 11/30 [place] STOOL [facility] (11/30/13 2:00 PM) URINE AND UA Spec Grav 1.020 <=1.030 11/30 [place] STOOL [facility] URINE AND UA Color Yellow Yellow 11/30 [place] STOOL [facility] *NA* (11/30/13 2:00 PM) URINE AND UA Leuk Est Negative Negative 11/30 [place] STOOL [facility] (11/30/13 2:00 PM) URINE AND UA Nitrite Negative Negative 11/30 [place] (11/30/13 2:00 PM) CHEM PANEL B/C Ratio [...] Total 8.0 g/dL 6.4 - 8.4 11/30 [facility] CHEM PANEL Albumin Lvl 4.1 g/dL 3.5 - 5.0 11/30 [place] CHEM PANEL CO2 24 meq/L 24 - 32 11/30 [place] CHEM PANEL Chloride Lvl 104 meq/L 95 - 109 11/30 [place] CHEM PANEL Creatinine 0.9 mg/dL 0.5 - 1.4 11/30 MH [place] CHEM PANEL Sodium Lvl 138 meq/L 135 - 145 11/30 [place] CHEM PANEL Potassium 4.0 meq/L 3.5 - 5.1 11/30 MH [place] Lvl [place] CHEM PANEL BUN 14 mg/dL 7 - 22 11/30 [place] CHEM PANEL Glucose Lvl 92 mg/dL 70 - 99 11/30 2Interpretive Data: Adult reference range values reflect the clinical guidelines of the [place] [employer]. [place] CHEM PANEL Lipase Lvl [...] 16.9 g/dL 12.0 - 11/30 [place] 16.0 /2013 [place] HEMATOLOGY WBC 7.1 K/CMM 3.7 - 10.4 11/30 [place] HEMATOLOGY RBC 5.64 M/CMM 4.20 - 11/30 [place] 5.40 /2013 [place] HEMATOLOGY Hct 49.7 % 36.0 - 11/30 [place] 48.0 /2013 [place] HEMATOLOGY MCH 29.9 [...] 0.0 K/CMM 0.0 - 0.2 11/30 Sugar [facility] HEMATOLOGY Eosinophils 0.7 % 0.0 - 4.0 11/30 [place] /2013 [facility] HEMATOLOGY Lymphocytes 1.8 K/CMM 1.0 - 5.5 11/30 [place] # [facility] HEMATOLOGY Segs 67.7 % 45.0 - 11/30 [place] 75.0 /2013 [facility] HEMATOLOGY Monocytes 5.7 % 2.0 - 12.0 11/30 Sugar [facility] HEMATOLOGY Lymphocytes 25.4 % 20.0 - 11/30 [place] 40.0 [facility] IMMUNOLOGY CDC HIV 4th Negative Negative 11/30 [place] GEN [facility] (11/30/13 12:35 PM) Gallbladder Gallbladder Gallbladder HIDA scan with ejection fraction. - [place] scan HIDA w scan HIDA w - [facility] meds NM meds NM HISTORY: Abdominal pain. [...] HELICOB IGG 0.6 U/mL 11/07 Medical Group [employer] PAP SMEAR Normal 03/30 Medical Group [employer] PAP SMEAR Normal 03/30 Medical Group [employer] PAP SMEAR Normal 03/30 Medical Group [employer] Operator PAP SMEAR Normal 03/30 Medical Group Pathology PAP SMEAR Normal 03/30 Medical Group Pathology PAP SMEAR Normal 03/30 Medical Group Vital Signs Vital Sign Value Date Comments Source Systolic (mm Hg) 144 09/03/2018 Medical Group Diastolic (mm Hg) 77 09/03/2018 Medical Group Temperature Oral (F) 98.7 F 09/03/2018 Medical Group Heart Rate 63 09/03/2018 Medical Group Height 160.02 cm 09/03/2018 Medical Group BMI Calculated 31.29 09/03/2018 Medical Group Weight 80.114 09/03/2018 Medical [facility] Height 160.02 cm 07/28/2018 [facility] Weight 79.545 07/28/2018 [facility] BMI Calculated 31.06 07/28/2018 [facility] Respitory Rate 16 07/28/2018 [facility] Heart Rate 68 07/28/2018 [facility] Systolic (mm Hg) 129 07/28/2018 [facility] Diastolic (mm Hg) 84 07/28/2018 [facility] Weight 90 06/14/2018 Medical Group BMI Calculated 35.15 06/14/2018 Medical [facility] Height 160.02 cm 06/14/2018 Medical Group Systolic (mm Hg) 128 06/14/2018 Medical Group Diastolic (mm Hg) 78 06/14/2018 Medical Group Temperature Oral (F) 97.7 F 06/14/2018 Medical Group Heart Rate 101 06/14/2018 Medical Group Temperature Oral (F) 99 F 01/05/2018 Medical Group Heart Rate 89 01/05/2018 Medical Group Height 160.02 cm 01/05/2018 Medical Group Weight 90.455 01/05/2018 Medical Group BMI Calculated 35.33 01/05/2018 Medical Group Systolic (mm Hg) 134 01/05/2018 Medical Group Diastolic (mm Hg) 81 01/05/2018 Medical Group BMI Calculated 36.57 10/06/2017 Medical [...] Medical Group Systolic (mm Hg) 143 03/12/2016 [facility] Diastolic (mm Hg) 94 03/12/2016 [facility] Heart Rate 72 03/12/2016 [facility] Weight 90.909 03/12/2016 [facility] BMI Calculated 35.5 03/12/2016 [facility] Height 160.02 cm 03/12/2016 [facility] Respitory Rate 16 03/12/2016 [facility] Respitory Rate 18 09/16/2015 [place] Heart Rate 78 09/16/2015 [place] Systolic (mm Hg) 133 09/16/2015 [place] Diastolic (mm Hg) 75 09/16/2015 [place] BMI Calculated 33.51 09/16/2015 [place] Weight 85.818 09/16/2015 [place] Temperature Oral (F) 98.0 F 09/16/2015 [place] Heart Rate 81 09/16/2015 [place] Respitory Rate 18 09/16/2015 [place] Height 160.02 cm 09/16/2015 [place] Systolic (mm Hg) 155 09/16/2015 [place] Diastolic (mm Hg) 95 09/16/2015 [place] BMI Calculated 31.86 03/14/2015 [facility] Weight 81.591 03/14/2015 [facility] Height 160.02 cm 03/14/2015 [facility] Heart Rate 81 03/14/2015 [facility] Temperature Oral (F) 97.9 F 03/14/2015 [facility] Systolic (mm Hg) 148 03/14/2015 [facility] Diastolic (mm Hg) 88 03/14/2015 [facility] Height 63 08/23/2014 Medical Group Temperature Oral [...] Medical Group Systolic (mm Hg) 139 11/30/2013 [place] Diastolic (mm Hg) 91 11/30/2013 [place] Respitory Rate 16 11/30/2013 [place] Heart Rate 89 11/30/2013 [place] Systolic (mm Hg) 147 11/30/2013 [place] Diastolic (mm Hg) 86 11/30/2013 [place] Heart Rate 88 11/30/2013 [place] Respitory Rate 16 11/30/2013 [place] Weight 96.818 11/30/2013 [place] Height 160.02 cm 11/30/2013 [place] BMI Calculated 37.81 11/30/2013 [place] Temperature Oral (F) 98.2 F 11/30/2013 [place] Respitory Rate 18 11/30/2013 [place] Heart Rate 92 11/30/2013 [place] Diastolic (mm Hg) 92 11/30/2013 [place] Systolic (mm Hg) 152 11/30/2013 [place] Height 63 11/21/2013 Medical Group Weight 214 [...] Type Number For Provider Date Date Visit [facility] Lab Report [id number] [facility] 12/03 12/03 [facility] [place] 7590 [place]ache /2012 Medical Medical Jr. MD Group Garcia [place] [facility] Office [id number] [facility] 12/07 12/07 MH [place] Visit 7040 Sustache /2012 Medical Medical Jr. MD Group Garcia [facility] [place] Office [id number] [facility] 09/01 09/01 MH [place] Visit 7020 [place] /2013 Medical MD Group Radha Garzon Jr. [facility] [place] Office [id number] [facility] 10/05 10/05 [facility] [place] Visit 1090 [place] /2013 Medical MD Group Radha Garzon Jr. [facility] [place] Office [id number] [facility] 10/25 10/25 MH [facility] Visit 8880 [place] /2013 Medical MD Group Radha Garzon Jr. [facility] [place] [place] Office [id number] [facility] 11/07 11/07 MH [place] Visit 2060 [place] /2013 Medical MD Group Radha Garzon Jr. [facility] [place] [place] Lab Report [id number] [facility] 11/07 11/07 MH [place] 2260 [place] /2013 Medical MD Group Radha Garzon Jr. [facility] [place] [place] Office [id number] [facility] 11/21 11/21 MH [place] Visit 8980 [place] /2013 Medical MD Group Radha Garzon Jr. [facility] [place] [id number] Desean Mosquera 11/30 11/30 MH [place] [facility] [id number] [facility] 12/01 12/01 MH Mart 2960 Sustache /2013 Medical MD Group Radha Garzon Jr. [facility] Office [id number] [facility] 02/13 02/13 MH Bromide Visit 9710 Sustache /2013 Medical MD Group Radha Garzon Jr. [facility] [place] [place] Office [id number] [facility] 04/06 04/06 MH Bromide Visit 8760 Sustache /2014 MD Group Radha Mohamud Jr. [facility] [place] [place] Office [id number] [facility] 08/08 08/08 MH Bromide Visit 9590 Sustache /2014 Medical MD Group Radha Garzon Jr. [facility] [place] [place] Office [id number] [facility] 08/22 08/22 MH Mart Visit 7820 [place]ustache /2014 Duran Garzon Jr., MD Group Group [facility] [place] [place] Office [id number] Shiela 08/23 08/23 Bromide Visit 3800 Sustache /2014 Duran Garzon Jr., MD Group Group [facility] [place] [place] Lab Report [id number] [facility] 08/23 08/23 Mart 3890 Sustache /2014 Duran Garzon Jr., MD Group Group [place] Outpatient [id number] SHIELA 01/30 Active Memorial SUSTACHE [facility] Outpt Diag [id number] Sb 02/23 02/24 OPID Outpatient Services [place] [facility] Outpatient [id number] Epifanio 03/14 03/15 [facility] [place] /2014 [facility] Memorial Bedded [id number] Epifanio 04/30 04/30 [facility] [facility] Outpatient [id number] SHIELA 05/17 Active [facility] SUSTACHE [facility] Outpatient [id number] SHIELA 07/09 Active [facility] SUSTACHE Bromide Outpatient [id number] NADINE LAM 08/22 Active [facility] Outpatient [id number] SHIELA 09/10 Active [facility] SUSTACHE [facility] [place] [id number] Michelle 09/15 09/16 Sugar Mart Emergency [place] /2015 [facility] Outpatient [id number] [facility] 10/17 Active Memorial SUSTACHE /2015 Mart Outpatient [id number] [facility] 11/18 Active [facility] SUSTACHE Mart Outpatient [id number] [facility] 01/20 Active [facility] SUSTACHE Bromide Outpatient [id number] SHIELA 02/12 Active [facility] SUSTACHE Brom[facility] Outpatient [id number] 03/12 [facility] [place] [facility] Outpt Diag [id number] Epifanio 03/25 03/26 OPID Outpatient Services [place] [facility] Outpatient [id number] SHIELA 04/17 Active [facility] SUSTACHE /2016 Bromide Outpatient [id number] SHIELA 05/15 Active [facility] SUSTACHE Mart Outpatient [id number] SHIELA 06/03 Active [facility] SUSTACHE Bromide Outpatient [id number] SHIELA 07/30 Active [facility] SU[facility]ide Outpatient [id number] SHIELA 08/29 Active [facility] SU[facility] Bromide Outpatient [id number] SHIELA 11/12 Active [facility] SUST[facility] Mart Outpatient [id number] SHIELA 12/30 Active [facility] SUSTACHE Bromide Outpatient [id number] SHIELA 02/23 Active [facility] SUSTACHE /2016 [facility] Outpatient [id number] Shiela 02/23 02/24 Primary Sustache /2016 [facility] Phone [id number] 03/09 03/11 Primary Message /2016 [facility] Phone [id number] 03/12 03/14 Primary Message /2016 [facility] [place] Outpatient [id number] SHIELA 03/31 Active [facility] SUSTACHE [facility] Outpatient [id number] Shiela 03/31 04/01 Primary [place] /2017 [facility] Phone [id number] 06/05 06/07 Primary Message /2017 Medical Care Group [facility] [place] [place] Emergency [id number] Zeb 06/06 06/06 [facility] [place] [facility] Outpatient [id number] SHIELA 06/09 Active [facility] SUSTACHE [facility] Outpatient [id number] Shiela 06/09 06/10 Primary [place]ache /2017 [facility] [place] [facility] Phone [id number] 06/15 06/17 Primary Message /2017 [facility] Phone [id number] 06/26 06/28 Primary Message /2017 [facility] [place] Outpatient [id number] SHIELA 06/29 Active [facility] SUSTACHE [facility] Ambulatory [id number] Shiela 06/29 06/29 Primary Pre-Reg [place] /2017 [facility] [place] Outpatient [id number] SHIELA 07/02 Active [facility] SUSTACHE [facility] Outpatient [id number] Shiela 07/02 07/03 Primary [place] /2017 [facility] [place] MG Phone [id number] 07/27 07/29 Primary Message /2017 [facility] [place] MG Phone [id number] 07/28 07/30 Primary Message /2017 [facility] [place] Outpatient [id number] C[place] 10/06 Active Memorial ALAS Bromide [facility] Outpatient [id number] Shiela 10/06 10/07 Primary [place] /2017 [facility] [place] MG Phone [id number] 11/06 11/08 Primary Message /2017 [facility] [place] MG Phone [id number] 12/30 01/01 Primary Message /2017 [facility] [place] MG Phone [id number] 12/30 01/01 Primary Message /2017 [facility] [place] MG Phone [id number] 01/05 01/07 Primary Message /2017 [facility] [place] Outpatient [id number] CORTNEY01/05 Active Memorial ALAS Bromide [facility] Outpatient [id number] Shiela 01/05 01/06 Primary S[place] /2017 [facility] [place] MH Outpt Diag [id number] [place] 01/05 01/06 OPID Outpatient Services [place] /2017 [facility] [place] Phone [id number] 01/08 01/10 Primary Message /2017 [facility] [place] MG Phone [id number] 01/08 01/10 Primary Message /2017 [facility] [place] [facility] Outside [id number] 01/19 01/21 Primary Medical /2017 Medical Care Records Group [place] Outpatient [id number] SHIELA 06/14 Active [facility] SUSTACHE Bromide [facility] Outpatient [id number] Shiela 06/14 06/15 Primary Sustache /2018 [facility] [place] [facility] Between [id number] 06/16 06/17 Primary Visit /2018 [facility] [place] [facility]ive Outpatient [id number] Epifanio 07/28 07/29 [place] [facility] [place] /2018 Medical [facility] Outpatient [id number] Shiela 09/03 Active Memorial [place] /2018 [facility] Outpatient [id number] Shiela 09/03 09/04 Primary Sustache /2018 [facility] [place] [facility] Between [id number] 09/06 09/07 Primary Visit /2018 [facility] [place] Procedures Procedure Code Date Perfomer Comments Source Removal of [id number] 03/30/2013 Medical gallbladder Group Removal of 01451814 03/30/2013 [place] gallbladder Removal of 62817220 03/30/2013 [facility] gallbladder [facility] Center Removal of 59832415 03/30/2013 OPID gallbladder [place] Removal of 65016549 03/30/2013 OPID Sugar gallbladder Land Removal of 86784727 03/30/2013 [place] gallbladder colonoscopy 60031 03/30/2008 Normal Medical Group mammogram 57017 03/30/2008 Normal Medical Group vaginal Pap smear 61469 03/30/2008 Normal Medical results Group mammogram 50908 03/30/1999 Normal Medical Group Bilateral tubal 417442601 Medical ligation Group Carpal tunnel 47208542 Medical release Group Mammogram 76070356 Medical Group Bilateral tubal 463908126 [place] ligation Carpal tunnel 26161027 [place] release Mammogram 52865247 [place] Bilateral tubal 206983093 [facility] Carpal tunnel 71096169 [facility] Bilateral tubal 080041590 OPID ligation [place] Carpal tunnel 93248887 OPID release [place] Bilateral tubal 366302762 OPID Sugar ligation [place] Carpal tunnel 19189249 OPID Sugar release [place] Bilateral tubal 950965053 [place] ligation Carpal tunnel 51352589 [place] release Mammogram 70839641 [facility] Mammogram 32314180 OPID [place]
--- OUTSIDE RECORDS SUMMARY | 2018-09-12 20:05 | XMS REPORT | Continuity of Care Document ---
:1955 Author Organization [facility] Care Team Providers Name Role Phone Silvio Babin MD, Carlos Unavailable Unavailable Insurance Providers Payer name Policy type / Coverage type Policy ID Covered green party ID Policy Mueller AETNA (PPO) AETNA (PPO) Encounters Encounter Performer Location Date Lab Report Carlos Anguiano Jr., MD [facility] Dec 03, 2012 [place] Allergies, Adverse Reactions, Alerts Type Substance Reaction [...] Dec 08, 2011 Inactive GLUMETZA 500 MG [id number] 1 po qd Apr 13, 2012 Active [...]
--- OUTSIDE RECORDS SUMMARY | 2018-09-12 20:05 | XMS REPORT | Continuity of Care Document ---
:1955 Author Organization [facility] Care Team Providers Name Role Phone Silvio Babin MD, Carlos Unavailable Unavailable Insurance Providers Payer name Policy type / Coverage type Policy ID Covered green party ID Policy Mueller AETNA (PPO) AETNA (PPO) Encounters Encounter Performer Location Date Office Visit Carlos Anguiano Jr., MD [facility] Nov [place] Allergies, Adverse Reactions, Alerts Type Substance Reaction [...] Dec 08, 2011 Inactive GLUMETZA 500 MG [id number] 1 po qd Apr 13, 2012 Active [...]
--- OUTSIDE RECORDS SUMMARY | 2018-09-12 20:05 | XMS REPORT | Continuity of Care Document ---
:1955 Author Organization [facility] Care Team Providers Name Role Phone Silvio Babin MD, Carlos Unavailable Unavailable Insurance Providers Payer name Policy type / Coverage type Policy ID Covered green party ID Policy Mueller AETNA (PPO) AETNA (PPO) Encounters Encounter Performer Location Date Office Visit Carlos Anguiano Jr., MD [facility] Sep [place] Allergies, Adverse Reactions, Alerts Type Substance Reaction [...]
--- OUTSIDE RECORDS SUMMARY | 2018-09-12 20:05 | XMS REPORT | Continuity of Care Document ---
:1955 Author Organization [facility] Care Team Providers Name Role Phone Silvio Babin MD, Carlos Unavailable Unavailable Insurance Providers Payer name Policy type / Coverage type Policy ID Covered democrat ID Policy Mueller AETNA (PPO) AETNA (PPO) Encounters Encounter Performer Location Date Office Visit Carlos Anguiano Jr., MD [facility] Sep [place] Allergies, Adverse Reactions, Alerts Type Substance Reaction [...]
--- OUTSIDE RECORDS SUMMARY | 2018-09-12 20:05 | XMS REPORT | Continuity of Care Document ---
:1955 Author Organization [facility] Care Team Providers Name Role Phone Silvio Babin MD, Carlos Unavailable Unavailable Insurance Providers Payer name Policy type / Coverage type Policy ID Covered alliance party ID Policy Mueller AETNA (PPO) AETNA (PPO) Encounters Encounter Performer Location Date Office Visit Carlos Anguiano Jr., MD [facility] Aug [place] Allergies, Adverse Reactions, Alerts Type Substance Reaction [...]
--- OUTSIDE RECORDS SUMMARY | 2018-09-12 20:05 | XMS REPORT | Continuity of Care Document ---
:1955 Author Organization [facility] Care Team Providers Name Role Phone Silvio Babin MD, Carlos Unavailable Unavailable Insurance Providers Payer name Policy type / Coverage type Policy ID Covered libertarian ID Policy Mueller AETNA (PPO) AETNA (PPO) Encounters Encounter Performer Location Date Office Visit Carlos Anguiano Jr., MD [facility] Oct [place] Allergies, Adverse Reactions, Alerts Type Substance Reaction [...]
--- OUTSIDE RECORDS SUMMARY | 2018-09-12 20:06 | XMS REPORT | Continuity of Care Document ---
:1955 Author Organization [facility] Care Team Providers Name Role Phone Silvio Babin MD, Carlos Unavailable Unavailable Insurance Providers Payer name Policy type / Coverage type Policy ID Covered alliance party ID Policy Mueller AETNA (PPO) AETNA (PPO) Encounters Encounter Performer Location Date Lab Report Carlos Anguiano Jr., MD [facility] Nov 07, 2013 [place] Allergies, Adverse Reactions, Alerts Type Substance Reaction [...]
--- OUTSIDE RECORDS SUMMARY | 2018-09-12 20:06 | XMS REPORT | Continuity of Care Document ---
:1955 Author Organization [facility] Care Team Providers Name Role Phone Silvio Babin MD, Carlos Unavailable Unavailable Insurance Providers Payer name Policy type / Coverage type Policy ID Covered libertarian ID Policy Mueller AETNA (PPO) AETNA (PPO) Encounters Encounter Performer Location Date Office Visit Carlos Anguiano Jr., MD [facility] Oct [place] Allergies, Adverse Reactions, Alerts Type Substance Reaction [...]
--- OUTSIDE RECORDS SUMMARY | 2018-09-12 20:06 | XMS REPORT | Continuity of Care Document ---
:[address] [facility] Care Team Providers Name Role Phone Silvio Babin MD, Carlos Unavailable Unavailable Insurance Providers Payer name Policy type / Coverage type Policy ID Covered democrat ID Policy [place] AETNA (PPO) AETNA (PPO) Encounters Encounter Performer Location Date Lab Report Carlos Anguiano Jr., MD [facility] [place] - Nov [place] Allergies, Adverse Reactions, Alerts Type Substance Reaction [...]
--- OUTSIDE RECORDS SUMMARY | 2018-09-12 20:06 | XMS REPORT | Continuity of Care Document ---
:1955 Author Organization [facility] Care Team Providers Name Role Phone Silvio Babin MD, Carlos Unavailable Unavailable Insurance Providers Payer name Policy type / Coverage type Policy ID Covered alliance party ID Policy Mueller AETNA (PPO) AETNA (PPO) Encounters Encounter Performer Location Date Office Visit Carlos Anguiano Jr., MD [facility] Jan [place] Allergies, Adverse Reactions, Alerts Type Substance Reaction [...]
--- OUTSIDE RECORDS SUMMARY | 2018-09-12 20:07 | XMS REPORT | Continuity of Care Document ---
:1955 Author Organization [facility] Care Team Providers Name Role Phone Silvio Babin MD, Carlos Unavailable Unavailable Insurance Providers Payer name Policy type / Coverage type Policy ID Covered constitution party ID Policy Mueller AETNA (PPO) AETNA (PPO) Encounters Encounter Performer Location Date Office Visit Carlos Anguiano Jr., MD [facility] July [place] Allergies, Adverse Reactions, Alerts Type Substance Reaction [...] PROMETHAZINE HCL 25 MG SUPP 1 SUPP NM Q 4 TO 6 HRS PRN N/V. [...] spasms THYROID COMPOUND Active QSYMIA 3.75-23 MG [id number] 1 po qd August 08, 2014 Active [...]
--- OUTSIDE RECORDS SUMMARY | 2018-09-12 20:07 | XMS REPORT | Continuity of Care Document ---
:1955 Author Organization [facility] Care Team Providers Name Role Phone Silvio Babin MD, Carlos Unavailable Unavailable Insurance Providers Payer name Policy type / Coverage type Policy ID Covered democrat ID Policy Mueller AETNA (PPO) AETNA (PPO) Encounters Encounter Performer Location Date Office Visit Carlos Anguiano Jr., MD [facility] July [place] Allergies, Adverse Reactions, Alerts Type Substance Reaction [...] LA Q 4 TO 6 HRS PRN Mar [...] spasms THYROID COMPOUND Active QSYMIA 3.75-23 MG [id number]-[id number] 1 po qd August 08, 2014 Active OMEPRAZOLE 20 MG CPDR Take one capsule by mouth August 22, 2014 Active daily ONDANSETRON HCL 4 MG TABS 1 tablet every 8 hours as August 22, 2014 Active needed for nausea/vomiting VITAMIN D (ERGOCALCIFEROL) 89616 1 capsule weekly x 12 weeks August [...]
--- OUTSIDE RECORDS SUMMARY | 2018-09-12 20:07 | XMS REPORT | Continuity of Care Document ---
:1955 Author Organization [facility] Care Team Providers Name Role Phone Silvio Babin MD, Carlos Unavailable Unavailable Insurance Providers Payer name Policy type / Coverage type Policy ID Covered democrat ID Policy Mueller AETNA (PPO) AETNA (PPO) Encounters Encounter Performer Location Date Office Visit Carlos Anguiano Jr., MD [facility] Mar [place] Allergies, Adverse Reactions, Alerts Type Substance [...] PROMETHAZINE HCL 25 MG SUPP 1 SUPP OK Q 4 TO 6 HRS PRN N/V. [...]
--- OUTSIDE RECORDS SUMMARY | 2018-09-12 20:07 | XMS REPORT | Continuity of Care Document ---
:1955 Author Organization [facility] Care Team Providers Name Role Phone Silvio Babin MD, Carlos Unavailable Unavailable Insurance Providers Payer name Policy type / Coverage type Policy ID Covered republican ID Policy Mueller AETNA (PPO) AETNA (PPO) Encounters Encounter Performer Location Date Office Visit Carlos Anguiano Jr., MD [facility] July [place] Allergies, Adverse Reactions, Alerts Type Substance Reaction [...] ID Q 4 TO 6 HRS PRN N/V. [...] spasms THYROID COMPOUND Active QSYMIA 3.75-23 MG [id number] 1 po qd August 08, 2014 Active [...]
--- OUTSIDE RECORDS SUMMARY | 2018-09-12 20:08 | XMS REPORT | Continuity of Care Document ---
:[address] [facility] Care Team Providers Name Role Phone Silvio Babin MD, Carlos Unavailable Unavailable Insurance Providers Payer name Policy type / Coverage type Policy ID Covered constitution party ID Policy Mueller AETNA (PPO) AETNA (PPO) Encounters Encounter Performer Location Date Lab Report Carlos Anguiano Jr., MD [facility] August 23, 2014 [place] Allergies, Adverse Reactions, Alerts Type Substance Reaction [...] [place] Q 4 TO 6 HRS PRN Mar [...] spasms THYROID COMPOUND Active QSYMIA 3.75-23 MG [id number] 1 po qd August 08, 2014 Active OMEPRAZOLE 20 MG CPDR Take one capsule by mouth August 22, 2014 Active daily ONDANSETRON HCL 4 MG TABS 1 tablet every 8 hours as August 22, 2014 Active needed for nausea/vomiting VITAMIN D (ERGOCALCIFEROL) 28594 1 capsule weekly x 12 weeks August [...]
--- OUTSIDE RECORDS SUMMARY | 2018-09-12 20:08 | XMS REPORT | Summary of Care ---
:1955 Author Organization [facility] [place] Address [address] [place] [address], [place] [address]- Care Team Providers Name Role Phone Carlos Anguiano Jr Primary Care Physician Encounter HQ Almitadenise(NELA) [phone] Date(s): 01/05/18 - 01/06/18 [facility] [place] [address] [place] [address] [place] [address]- [phone] Vital Signs No data available for this section Problem List Condition Effective Dates Status Health Status Informant Diarrhea1 08/23/14 Resolved 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 Gastritis3 08/22/14 Active Hypoglycemia(Confirmed) Resolved Multiple joint pain4 08/22/14 Active Muscle pain5 08/22/14 Active Nausea6 08/22/14 Active Numbness7 08/08/14 Active Obesity(Confirmed) Active Reactive hypoglycemia8 08/08/14 Active Screening mammography9 08/23/14 Active Lssgaodwh71, 11 12/08/11 Resolved Vitamin D [id number] 08/23/14 Active 1Data migrated from [employer] [...] from [employer] on 10/14/14.11Data migrated from [employer] on 10/13/14.12Data migrated from [employer] on 10/04/14. Allergies, Adverse Reactions, Alerts Substance [...] Smoking Cessation Counseling No entered on: 06/14/18 [id number] Assessment and Plan No data available for this section
--- OUTSIDE RECORDS SUMMARY | 2018-09-12 20:08 | XMS REPORT | Summary of Care ---
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 Allergies, Adverse Reactions, Alerts Substance [...] Reg Smoking Cessation Counseling No entered on: 07/28/18 [id number] Assessment and Plan No data available for this section
--- OUTSIDE RECORDS SUMMARY | 2018-09-12 20:08 | XMS REPORT | Summary of Care ---
:1955 Author Organization [facility] [place] Address [address] [place] [address]- Care Team Providers Name Role Phone Carlos Anguiano Jr Primary Care Physician Encounter HQ Tk(NELA) [id number] Date(s): 01/05/18 - 01/05/18 [facility] [place] [address] [place] [address]- Encounter Diagnosis Acute sinusitis, unspecified (Final) - 01/11/18 Discharge Disposition: Home or Self Care Attending Physician: Mercedez Alas MD Referring Physician: Mercedez Alas MD Vital Signs No data available for this section Problem List Condition Effective Dates Status Health Status Informant Diarrhea1 08/23/14 Resolved 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
--- OUTSIDE RECORDS SUMMARY | 2018-09-12 20:08 | XMS REPORT | Summary of Care ---
:1955 Author Organization [facility] Primary Care [place] Address [address], [place] [address]- Care Team Providers Name Role Phone Carlos Anguiano Jr Primary Care Physician Encounter HQ Almitakamar_konrad(NELA) [phone] Date(s): 01/08/18 - 01/09/18 [facility] Primary [facility] [place] [address] [place] [address]- [phone] Vital Signs No data available for this section Problem List Condition Effective Dates Status Health Status Informant Autoimmune disease(Confirmed) Active Diarrhea1 08/23/14 Resolved 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 Allergies, Adverse Reactions, Alerts Substance Reaction Severity Status ciprofloxacin Active Levaquin Active Food Iodine Active NSAIDs Active Medications nystatin 500,000 units oral tablet 1,000,000 unit=2 tab, PO, BID, X 30 day, # 120 tab, 0 Refill(s), Pharmacy: [email or web address] Start Date: 01/11/18 Stop Date: 02/10/18 Status: Completed Results No data available for [...] Smoking Cessation Counseling No entered on: 07/28/18 [id number] Assessment and Plan No data available for this section
--- OUTSIDE RECORDS SUMMARY | 2018-09-12 20:08 | XMS REPORT | Summary of Care ---
:1955 Author Organization [facility] Primary [facility] [place] Address [address] [place] [address], [place] [address]- Care Team Providers Name Role Phone Carlos Anguiano Jr Primary Care Physician Encounter HQ Flaquitojacobkamar_konrad(FIN) [id number] Date(s): 01/05/18 - 01/05/18 [facility] [place] [address] [place] [address] [address] [place] [address]- [phone] Discharge Disposition: Home or Self Care Attending Physician: Carlos Chris MD Vital Signs Most recent to oldest [Reference Range]: 1 Height 160.02 cm (01/05/18 3:02 PM) Temperature Oral [96.4-99.1 DegF] 99 DegF (01/05/18 3:02 PM) Blood Pressure [90-140/60-90 mmHg] 134/81 mmHg (01/05/18 3:02 PM) Peripheral Pulse Rate [60-100 bpm] 89 bpm (01/05/18 3:02 PM) Weight 90.455 kg (01/05/18 3:02 PM) Body Mass Index 35.33 m2 (01/05/18 3:02 PM) Problem List Condition Effective Dates Status Health Status Informant Diarrhea1 08/23/14 Resolved 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 Gastritis3 08/22/14 Active Hypoglycemia(Confirmed) Resolved Multiple joint pain4 08/22/14 Active Muscle pain5 08/22/14 Active Nausea6 08/22/14 Active Numbness7 08/08/14 Active Obesity(Confirmed) Active Reactive hypoglycemia8 08/08/14 Active Screening mammography9 08/23/14 Active [id number], 11 12/08/11 Resolved Vitamin D [id number] 08/23/14 Active 1Data migrated from [employer] [...] 5 day, #6 tab, 0 Refill(s), Pharmacy: [id number] Start Date: 01/05/18 Stop Date: 01/10/18 Status: Completeddoxycycline hyclate 100 mg oral tablet 100 mg=1 tab, PO, BID, 0 Refill(s) Start Date: 01/05/18 Status: Orderedsucralfate 1 g oral tablet 1 gm=1 tab, PO, QID, # 120 tab, 0 Refill(s), Pharmacy: [id number] Start Date: 01/07/18 Stop Date: 02/06/18 Status: OrderedTessalon Perles 100 mg oral capsule 100 mg=1 cap, PO, TID, PRN as needed for cough, X 7 day, # 21 cap, 0 Refill(s), Pharmacy: [id number] Start Date: 01/05/18 Stop Date: 01/12/18 Status: Completed Results No data available for [...] Smoking Cessation Counseling No entered on: 06/14/18 [id number] Assessment and Plan No data available for this section
--- OUTSIDE RECORDS SUMMARY | 2018-09-12 20:09 | XMS REPORT | Summary of Care ---
:1955 Author Organization [facility] Primary [facility] [place] Address [address], [place] [address]- Encounter HQ Tk(FIN) [id number] Date(s): 09/03/18 - 09/03/18 [facility] Care [place] [address] [place] [address] [place] [address]- [phone] Discharge Disposition: Home or Self Care Attending Physician: Carlos Chris MD Vital Signs Most recent to oldest [Reference Range]: 1 Height 160.02 cm (09/03/18 8:41 AM) Temperature Oral [96.4-99.1 DegF] 98.7 DegF (09/03/18 8:41 AM) Blood Pressure [90-140/60-90 mmHg] 144/77 mmHg *HI* (09/03/18 8:41 AM) Peripheral Pulse Rate [60-100 bpm] 63 bpm (09/03/18 8:41 AM) Weight 80.114 kg (09/03/18 8:41 AM) Body Mass Index 31.29 m2 (09/03/18 8:41 AM) Problem List Condition Effective Dates Status Health Status Informant Autoimmune disease(Confirmed) Active Diarrhea1 08/23/14 Resolved 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 on 10/04/14.2Data migrated from [employer] on [...] Active Food Iodine Active NSAIDs Active Medications ciclopirox topical 0.77% cream 1 appl, TOP, BID, X 28 day, # 90 gm, 0 Refill(s), Pharmacy: [id number] Start Date: 09/03/18 Stop Date: 10/01/18 Status: Orderedfluconazole 150 mg oral tablet See Instructions, 1 tab PO ONCE a week, # 2 tab, 0 Refill(s), Pharmacy: [id number] Start Date: 09/03/18 Status: Ordered Results No data available for [...] Reg Smoking Cessation Counseling No entered on: 09/03/18 [id number] Assessment and Plan No data available for this section
--- OUTSIDE RECORDS SUMMARY | 2018-09-12 20:09 | XMS REPORT | Summary of Care ---
:1955 Author Organization [facility] Address [address], [place] [address]- Care Team Providers Name Role Phone Carlos Anguiano Jr Primary Care Physician Encounter HQ Tk(NELA) [id number] Date(s): 07/28/18 - 07/28/18 [facility] [address] [place] [address]- [phone] Discharge Disposition: Home or Self Care Attending Physician: Epifanio Lundy MD Referring Physician: Epifanio Lundy MD Vital Signs Most recent to oldest [Reference Range]: 1 Height 160.02 cm (07/28/18 1:46 PM) Blood Pressure [90-140/60-90 mmHg] 129/84 mmHg (07/28/18 1:46 PM) Respiratory Rate [14-20 BRMIN] 16 BRMIN (07/28/18 1:46 PM) Peripheral Pulse Rate [60-100 bpm] 68 bpm (07/28/18 1:46 PM) Weight 79.545 kg (07/28/18 1:46 PM) Body Mass Index 31.06 m2 (07/28/18 1:46 PM) Problem List Condition Effective Dates Status Health Status Informant Autoimmune disease(Confirmed) Active Diarrhea1 08/23/14 Resolved 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 Gastritis3 08/22/14 Active Hypoglycemia(Confirmed) Resolved Multiple joint pain4 08/22/14 Active Muscle pain5 08/22/14 Active Nausea6 08/22/14 Active Numbness7 08/08/14 Active Obesity(Confirmed) Active Reactive hypoglycemia8 08/08/14 Active Screening mammography9 08/23/14 Active Phspvpdem17, 11 12/08/11 Resolved Vitamin D [id number] 08/23/14 Active 1Data migrated from [employer] [...] Active Food Iodine Active NSAIDs Active Medications pantoprazole 40 mg, PO, Daily, # 30 tab, 0 Refill(s) Start Date: 07/28/18 Stop Date: 08/27/18 Status: OrderedXifaxan 550 mg oral tablet 550 mg=1 tab, PO, TID, # 42 tab, 0 Refill(s), Pharmacy: [facility] Start Date: 07/28/18 Stop Date: 08/11/18 Status: Ordered Results No data available for [...] Smoking Cessation Counseling No entered on: 07/28/18 [id number] Assessment and Plan No data available for this section
--- OUTSIDE RECORDS SUMMARY | 2018-09-12 20:10 | XMS REPORT | Summary of Care ---
:1955 Author Organization 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 Allergies, Adverse Reactions, Alerts Substance [...] Smoking Cessation Counseling No entered on: 09/03/18 [id number] Assessment and Plan No data available for this section
--- OUTSIDE RECORDS SUMMARY | 2018-09-12 20:10 | XMS REPORT | Summary of Care ---
:1955 Author Organization [facility] Primary Care [place] Address [address] [address], [place] [address]- Care Team Providers Name Role Phone Alas Mercedez Primary Care Physician Encounter HQ Almitadenise(NELA) [id number] Date(s): 01/19/18 - 01/20/18 [facility] Care [place] [address] [place] [address]- [phone] Vital Signs No data available for this section Problem List Condition Effective Dates Status Health Status Informant Autoimmune disease(Confirmed) Active Diarrhea1 08/23/14 Resolved 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
--- OUTSIDE RECORDS SUMMARY | 2018-09-12 20:11 | XMS REPORT | Summary of Care ---
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
--- OUTSIDE RECORDS SUMMARY | 2018-09-12 20:11 | XMS REPORT | Summary of Care ---
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 Gastritis3 08/22/14 Active Hypoglycemia(Confirmed) Resolved Multiple joint pain4 08/22/14 Active Muscle pain5 08/22/14 Active Nausea6 08/22/14 Active Numbness7 08/08/14 Active Obesity(Confirmed) Active Reactive hypoglycemia8 08/08/14 Active Screening mammography9 08/23/14 Active Jukfdqrrs90, 11 12/08/11 Resolved Vitamin D [id number] 08/23/14 Active 1Data migrated from [employer] [...] # 60 tab, 1 Refill(s) Start Date: 12/30/17 Stop Date: 01/05/18 Status: Discontinued Results No data available for [...] Smoking Cessation Counseling No entered on: 06/14/18 [id number] Assessment and Plan No data available for this section
--- OUTSIDE RECORDS SUMMARY | 2018-09-12 20:12 | XMS REPORT ---
:1955 Author Organization [facility] Address [address] [place] [address] [address] [place] [address] Care Team Providers Name Role Phone Unavailable [...] Medications This patient has no known medications. Encounters Start End Encounter Admission Attending Care Care Encounter Date/Time Date/Time Type Type Clinicians Facility Department ID 2018-07-28 2018-07-28 Outpatient [facility] [id number] 01:39:00 01:39:00 Results Test Description Test Time Test Comments Text Results Atomic Results Result Comments SURG 2018-01-01 RUN DATE: 11:22:00 01/01/18 [facility] - LAB *LIVE* PAGE 1 RUN TIME: 1122 Specimen Inquiry RUN USER: INTERFACE PATIENT: BOZENA MARSH LOC: [facility] U #: [id number] AGE/SX: 62/F ROOM: RE12/31/17REG DR: Raz Gaspar III : 57 BED: DIS: STATUS: [facility] TLOC: SPEC #: [id number] RECD: 12/31/17 STATUS: HENRY DELGADO # : [id number] SHYANN: 12/31/[address] [facility] [address]: Raz Gaspar III, MD ENTERED: 12/31/17 SP TYPE: SURG OTHR DR: No Primary or Family PhysicianORDERED: SURG PATH LVL 1, SURG PATH LVL 4 COPIES TO: No Primary [place] [address] [facility] [address] [place], [place] [id number] HISTOLOGY: TISSUE ID BLK PCS ANAIS LEV PROCEDURE DISPOSITION ___ ____ ___ ___ ___ NASAL TURBINATE A 1 1 NASAL SEPTUM, N B 1 1 PROCEDURES: SURG PATH LVL 1 (01/01/18) SURG PATH LVL 4 (01/01/18) TISSUES: A. NASAL TURBINATE, NOS - BILATERAL INFERIOR TURBINATES B. NASAL SEPTUM, NOS - SEPTUM CPT CODES CPT CODE(S): 33282 , 65521 , , , , , FINAL DIAGNOSIS A. Inferior turbinate, bilateral, endoscopic sinus surgery: SINUS CONTENTS CONSISTENT WITH CHRONIC SINUSITIS B. Nasal septum, septoplasty: BONE AND CARTILAGE (GROSS ONLY) GROSS DESCRIPTION A. Bilateral inferior turbinates. Received in formalin are irregular fragments of sauceda-brown soft tissue admixed with dark brown blood clots, 2.7 x 1.8 x 1.0 cm in aggregate. Hog Buyer sections submitted as A. B. Septum. Received in formalin are multiple irregular fragments of cartilage CONTINUED ON NEXT PAGE RUN DATE: 01/01/18 [facility] - LAB *LIVE* PAGE 2 RUN TIME: 1122 Specimen Inquiry RUN USER: INTERFACE SPEC #: [id number]:[id number] PATIENT: BOZENA MARSH #[id number] (Continued) GROSS DESCRIPTION (Continued) and bones, 5.0 x 3.5 x 0.7 cm in aggregate. The specimen is photographed for gross identification only. ba/nr Grossing performed at [facility] Pathology, [address], [address], [place] [address]. Filter Plant Supervisor: Ralph Dash M.D. MICROSCOPIC DESCRIPTION A. Bilateral inferior turbinates. Fragments of respiratory epithelium lined mucosa. There are benign mucus glands and a chronic inflammatory infiltrate. Fragments of unremarkable cartilage and bone present. No evidence of malignancy. B. Septum. For gross identification only. /doug Signed SIGNATURE ON FILE Kel Chatterjee 01/01/18 1122 END OF REPORT
[2018-09-12] MEDS ORDERED: ASPIRIN 81 MG CHEWABLE TABLET ONE (21:30)
[2018-09-12 21:42] LABS: Absolute Lymphocytes (CBC) 2.3 K/uL (0.7-4.9); Basophils % 1.1 % (0-1.3); Eosinophils % 0.9 % (0-4.4); Hematocrit 47.1 % (36.0-45.0); Lymphocytes % 34.9 % (15.3-44.8); MPV 9.7 fL (7.6-11.3); Monocytes % 9.3 % (3.3-12.3); RBC Red Blood Cell Count 5.27 M/uL (3.86-4.86)
[2018-09-12 21:45] LABS: Protime INR 0.83
[2018-09-12 22:00] LABS: ALT/SGPT 26 U/L (12-78); AST/SGOT 12 U/L (15-37); Albumin 3.8 g/dL (3.4-5.0); Alkaline Phosphatase 91 U/L (45-117); BUN Blood Urea Nitrogen 14 mg/dL (7-18); Bicarbonate 28 mmol/L (21-32); Bilirubin Direct 0.1 mg/dL (0-0.2); Bilirubin Total 0.7 mg/dL (0.2-1.0); Glucose Level 93 mg/dL (74-106); Lipase 255 U/L (73-393); Magnesium 2.1 mg/dL (1.8-2.4); NT PRO-BNP 20 pg/mL (<125); Sodium Level 142 mmol/L (136-145); Troponin (Emerg Dept Use Only) < 0.02 ng/mL (0.0-0.045)
--- NOTE | 2018-09-12 22:01 | RAD REPORT ---
EXAM DESCRIPTION: Luis Single View09/12/2018 9:20 pm CLINICAL HISTORY: sob COMPARISON: December 2017 FINDINGS: The lungs appear clear of acute infiltrate. The heart is normal size IMPRESSION: No acute abnormalities displayed
[2018-09-12] MEDS ORDERED: NA CHLORIDE 0.9% 1,000 ML ONE (22:28)
--- NOTE | 2018-09-12 23:33 | ER ---
Nurse's Notes [facility] Name: Tracey Rodriguez Age: 62 yrs Sex: Female : 1955 Arrival Date: 09/12/2018 Time: 19:57 Bed 24 Private MD: Jordan Dlol V Diagnosis: Volume depletion;Person with feared health complaint in whom no diagnosis is made-burning pain in left upper back Presentation: 09/12 20:40 Presenting complaint: Patient states: i started to have SOB a week ago, im having rr5 congestion too. then i have left mid back pain on and off for a moth now. pain score 7/10 radiating to my left side abdomen. denies fever, urine problem. 20:40 Transition of care: patient was not received from another setting of care. Onset of rr5 symptoms was July 2018. Risk Assessment: Do you want to hurt yourself or someone else? Patient reports no desire to harm self or others. Initial Sepsis Screen: Does the patient meet any 2 criteria? No. Patient's initial sepsis screen is negative. Does the patient have a suspected source of infection? No. Patient's initial sepsis screen is negative. Care prior to arrival: None. 20:40 Method Of Arrival: Ambulatory rr5 20:40 Acuity: ANUJA 3 rr5 Triage Assessment: 20:40 General: Appears in no apparent distress. uncomfortable, Behavior is calm, cooperative, rr5 appropriate for age. 20:40 Respiratory: Reports SOB congestion a week ago Onset: The symptoms/episode rr5 began/occurred gradually, the patient has mild shortness of breath. Historical: - Allergies: 20:49 anti-inflammatory (all); rr5 20:49 Sulfa (Sulfonamide Antibiotics); rr5 20:49 fluoroquinolones; rr5 20:49 Ciprofloxacin; rr5 20:49 Levaquin; rr5 - Home Meds: 20:49 Xifaxan oral oral [Active]; Protonix Oral [Active]; gabapentin oral oral [Active]; rr5 Valacyclovir Oral [Active]; Singulair Oral [Active]; - PMHx: 20:49 Diverticulitis; Hypoglycemic; Hypothyroidism; UTI; hiatal hernia; throat erosion; rr5 - PSHx: 20:49 Cholecystectomy; Tubal ligation; Carpal Tunnel Repair; rr5 - Immunization history:: Adult Immunizations not up to date. - Social history:: Smoking status: Patient/guardian denies using tobacco, Patient/guardian denies using alcohol, street drugs. - Ebola Screening: : Patient negative for fever greater than or equal to 101.5 degrees Fahrenheit, and additional compatible Ebola Virus Disease symptoms Patient denies exposure to infectious person Patient denies travel to an Ebola-affected area in the 21 days before illness onset. Screenin:50 Abuse screen: Denies threats or abuse. Denies injuries from another. Nutritional rr5 screening: No deficits noted. Tuberculosis screening: No symptoms or risk factors identified. Fall Risk IV access (20 points). Total Cullen Fall Scale indicates No Risk (0-24 pts). Assessment: 20:40 General: Appears in no apparent distress. uncomfortable, Behavior is calm, cooperative, rr5 appropriate for age. Pain: Complains of pain in left flank area Pain radiates to abdomen Pain currently is 7 out of 10 on a pain scale. Quality of pain is described as aching, Pain began gradually, Is intermittent. 20:40 Neuro: Level of Consciousness is awake, alert, obeys commands, Oriented to person, rr5 place, time, situation, Appropriate for age. Cardiovascular: Capillary refill < 3 seconds Patient's skin is warm and dry. Rhythm is regular. Respiratory: Reports congestion Airway is patent Respiratory effort is even, unlabored, Respiratory pattern is regular, symmetrical, Breath sounds are clear bilaterally. GI: Abdomen is round. : Reports pain in left flank(s). EENT: No signs and/or symptoms were reported regarding the EENT system. Derm: Skin is intact, Skin temperature is warm. Musculoskeletal: Capillary refill < 3 seconds, Range of motion: intact in all extremities. 21:50 Reassessment: Patient appears in no apparent distress at this time. Patient is alert, rr5 oriented x 3, equal unlabored respirations, skin warm/dry/pink. awaiting for result. 22:40 Reassessment: Patient appears in no apparent distress at this time. Patient is alert, rr5 oriented x 3, equal unlabored respirations, skin warm/dry/pink. chatting with her mortgage loan closer. not in distress. 23:45 Reassessment: Patient appears in no apparent distress at this time. Patient is alert, rr5 oriented x 3, equal unlabored respirations, skin warm/dry/pink. discharge instruction given and explained without complaints made. Patient states feeling better. Patient states symptoms have improved. Vital Signs: 20:45 BP 134 / 66; Pulse 74; Resp 17; Temp 98.3; Pulse Ox 98% ; Weight 78.02 kg; Height 5 ft. rr5 3 in. (160.02 cm); Pain 7/10; 22:00 BP 131 / 65; Pulse 79; Resp 18; Pulse Ox 100% on R/A; Pain 5/10; rr5 23:00 BP 121 / 65; Pulse 80; Resp 16; Pulse Ox 98% on R/A; Pain 0/10; rr5 23:45 BP 125 / 70; Pulse 75; Resp 17; Temp 98.1; Pulse Ox 99% on R/A; rr5 20:45 Body Mass Index 30.47 (78.02 kg, 160.02 cm) rr5 ED Course: 19:57 Patient arrived in ED. am2 19:58 Jordan Doll MD is Private Physician. am2 20:09 [facility]oul[facility] Andrea [facility] snw 20:09 Piter Ravi MD is Attending Physician. snw 20:40 Lawrence Marcano, DOLORES is Primary Nurse. rr5 20:45 Triage completed. rr5 20:49 Arm band placed on. rr5 21:21 XRAY Chest (1 view) In Process Unspecified. EDMS 21:23 X-ray completed. Portable x-ray completed in exam room. Patient tolerated procedure mh1 well. 21:25 Patient has correct armband on for positive identification. Placed in gown. Bed in low rr5 position. Call light in reach. Side rails up X2. fibre cement moulder on. Pulse ox on. NIBP on. 21:30 Initial lab(s) drawn, by me, sent to lab. Inserted saline lock: 20 gauge in right rr5 forearm, using aseptic technique. Blood collected. 23:31 Jordan Doll MD is Referral Physician. snw 23:45 No provider procedures requiring assistance completed. IV discontinued, intact, rr5 bleeding controlled, No redness/swelling at site. Pressure dressing applied. Administered Medications: 21:34 Drug: Aspirin Chewable Tablet 324 mg Route: PO; rr5 21:40 Follow up: Response: No adverse reaction rr5 21:42 Drug: CarafATE 1 grams Route: PO; rr5 22:40 Follow up: Response: No adverse reaction rr5 22:24 Drug: NS 0.9% 500 ml Volume: 500 ml; Route: IV; Rate: 1 bolus; Site: right forearm; rr5 23:00 Follow up: Response: No adverse reaction; IV Status: Completed infusion; IV Intake: rr5 500ml 23:00 Drug: NS 0.9% 1000 ml Route: IV; Rate: 125 ml/hr; Site: right forearm; rr5 23:44 Follow up: Response: No adverse reaction; IV Status: Order to discontinue infusion; IV rr5 Intake: 100ml Intake: 23:00 IV: 500ml; Total: 500ml. rr5 23:44 IV: 100ml; Total: 600ml. rr5 Outcome: 23:32 Discharge ordered by . snw 23:45 Discharged to home ambulatory, with family. rr5 23:45 Condition: stable 23:45 Discharge instructions given to patient, Instructed on discharge instructions, follow up and referral plans. Demonstrated understanding of instructions, follow-up care. 23:48 Patient left the ED. rr5 Signatures: Dispatcher [employer] EDMS Roula Andrea, LIANNE-C WELL [facility] HEAD-Csnw Jaclyn Valle 1 Dorcas Coronel Raymond, RN RN rr5
--- NOTE | 2018-09-12 23:34 | EDPHYS ---
Physician Documentation [facility] Name: Tracey Rodriguez Age: 62 yrs Sex: Female : 1955 Arrival Date: 09/12/2018 Time: 19:57 Bed 24 Private MD: Jordan Doll V ED Physician Piter Ravi HPI: 09/12 21:16 This 62 yrs old Female presents to ER via Ambulatory with complaints of snw Shortness Of Breath, Back Pain - radiating to left side. 21:16 The patient has shortness of breath at rest. Onset: The symptoms/episode began/occurred snw 4 week(s) ago, and became persistent. Duration: The symptoms are continuous, and are unchanged since they started. Associated signs and symptoms: Pertinent positives: burning in back and shortness of breath that is intermittent but persistent x one month. Pt has been "reading" and is thinking she may be having anxiety over the potential diagnoses that she could have.. Severity of symptoms: At their worst the symptoms were moderate in the emergency department the symptoms are unchanged. It is unknown whether or not the patient has had similar symptoms in the past. The patient has been recently seen by a physician: the patient's primary care provider, Dr. Doll. Historical: - Allergies: 20:49 anti-inflammatory (all); rr5 20:49 Sulfa (Sulfonamide Antibiotics); rr5 20:49 fluoroquinolones; rr5 20:49 Ciprofloxacin; rr5 20:49 Levaquin; rr5 - Home Meds: 20:49 Xifaxan oral oral [Active]; Protonix Oral [Active]; gabapentin oral oral [Active]; rr5 Valacyclovir Oral [Active]; Singulair Oral [Active]; - PMHx: 20:49 Diverticulitis; Hypoglycemic; Hypothyroidism; UTI; hiatal hernia; throat erosion; rr5 - PSHx: 20:49 Cholecystectomy; Tubal ligation; Carpal Tunnel Repair; rr5 - Immunization history:: Adult Immunizations not up to date. - Social history:: Smoking status: Patient/guardian denies using tobacco, Patient/guardian denies using alcohol, street drugs. - Ebola Screening: : Patient negative for fever greater than or equal to 101.5 degrees Fahrenheit, and additional compatible Ebola Virus Disease symptoms Patient denies exposure to infectious person Patient denies travel to an Ebola-affected area in the 21 days before illness onset. ROS: 21:14 Constitutional: Negative for fever, chills, and weight loss, Eyes: Negative for injury, snw pain, redness, and discharge, ENT: Negative for injury, pain, and discharge, Neck: Negative for injury, pain, and swelling, Cardiovascular: Negative for chest pain, palpitations, and edema. 21:14 Cardiovascular: Negative for chest pain and edema, + palpitations Abdomen/GI: Negative for abdominal pain, nausea, vomiting, diarrhea, and constipation, : Negative for injury, bleeding, discharge, and swelling, MS/Extremity: Negative for injury and deformity, Skin: Negative for injury, rash, and discoloration. 21:14 Respiratory: Positive for shortness of breath, at rest. 21:14 Back: Positive for pain at rest, burning pain to left upper back and around under left breast feels sore. Exam: 21:13 Constitutional: This is a well developed, well nourished patient who is awake, alert, snw and in no acute distress. Head/Face: Normocephalic, atraumatic. Eyes: Pupils equal round and reactive to light, extra-ocular motions intact. Lids and lashes normal. Conjunctiva and sclera are non-icteric and not injected. Cornea within normal limits. Periorbital areas with no swelling, redness, or edema. ENT: Nares patent. No nasal discharge, no septal abnormalities noted. Tympanic membranes are normal and external auditory canals are clear. Oropharynx with no redness, swelling, or masses, exudates, or evidence of obstruction, uvula midline. Mucous membranes moist. Neck: Trachea midline, no thyromegaly or masses palpated, and no cervical lymphadenopathy. Supple, full range of motion without nuchal rigidity, or vertebral point tenderness. No Meningismus. Chest/axilla: Normal chest wall appearance and motion. Nontender with no deformity. No lesions are appreciated. Skin: Warm, dry with normal turgor. Normal color with no rashes, no lesions, and no evidence of cellulitis. MS/ Extremity: Pulses equal, no cyanosis. Neurovascular intact. Full, normal range of motion. Neuro: Awake and alert, GCS 15, oriented to person, place, time, and situation. Cranial nerves II-XII grossly intact. Motor strength 5/5 in all extremities. Sensory grossly intact. Cerebellar exam normal. Normal gait. 21:13 Respiratory: Lungs have equal breath sounds bilaterally, clear to auscultation and percussion. No rales, rhonchi or wheezes noted. No increased work of breathing, no retractions or nasal flaring. Abdomen/GI: Soft, non-tender, with normal bowel sounds. No distension or tympany. No guarding or rebound. No evidence of tenderness throughout. 21:13 Cardiovascular: Rate: normal, Rhythm: regular, Heart sounds: normal. 21:13 Back: pain, that is very mild, ROM is normal, normal spinal alignment noted, CVA tenderness, is absent, vertebral tenderness, is not appreciated. Vital Signs: 20:45 BP 134 / 66; Pulse 74; Resp 17; Temp 98.3; Pulse Ox 98% ; Weight 78.02 kg; Height 5 ft. rr5 3 in. (160.02 cm); Pain 7/10; 22:00 BP 131 / 65; Pulse 79; Resp 18; Pulse Ox 100% on R/A; Pain 5/10; rr5 23:00 BP 121 / 65; Pulse 80; Resp 16; Pulse Ox 98% on R/A; Pain 0/10; rr5 23:45 BP 125 / 70; Pulse 75; Resp 17; Temp 98.1; Pulse Ox 99% on R/A; rr5 20:45 Body Mass Index 30.47 (78.02 kg, 160.02 cm) rr5 MDM: 20:28 Patient medically screened. ruy 20:45 Data reviewed: vital signs, nurses notes. ED course: Pt sees Dr. Doll, is currently snw seeing GI, given xifaxin for gastrointestinal bacteria, pt is taking it only intermittently. 09/12 20:40 Order name: Basic Metabolic Panel [facility] 09/12 20:40 Order name: CBC with Diff [facility] 09/12 20:40 Order name: LFT's [facility] 09/12 20:40 Order name: Magnesium [facility] 09/12 20:40 Order name: NT PRO-BNP [facility] 09/12 20:40 Order name: PT-INR; Complete Time: 21:47 [facility] 09/12 20:40 Order name: Troponin (emerg Dept Use Only); Complete Time: 22:05 [facility] 09/12 20:40 Order name: DD; Complete Time: 21:47 w 09/12 20:40 Order name: Lipase; Complete Time: 22:05 w 09/12 20:41 Order name: Basic Metabolic Panel; Complete Time: 22:05 EDMS 09/12 20:41 Order name: CBC with Automated Diff; Complete Time: 21:47 MS 09/12 20:41 Order name: Liver (Hepatic) Function; Complete Time: 22:05 EDMS 09/12 20:41 Order name: Magnesium; Complete Time: 22:05 EDMS 09/12 20:41 Order name: NT PRO-BNP; Complete Time: 22:05 EDMS 09/12 20:40 Order name: XRAY Chest (1 view); Complete Time: 22:05 w 09/12 20:40 Order name: EKG; Complete Time: 20:42 w 09/12 20:40 Order name: Cardiac monitoring; Complete Time: 21:37 w 09/12 20:40 Order name: EKG - Nurse/Tech; Complete Time: 21:38 w 09/12 20:40 Order name: IV Saline Lock; Complete Time: 21:38 w 09/12 20:40 Order name: Labs collected and sent; Complete Time: 21:38 w 09/12 20:40 Order name: O2 Per Protocol; Complete Time: 21:38 w 09/12 20:40 Order name: O2 Sat Monitoring; Complete Time: 21:38 snw Administered Medications: 21:34 Drug: Aspirin Chewable Tablet 324 mg Route: PO; rr5 21:40 Follow up: Response: No adverse reaction rr5 21:42 Drug: CarafATE 1 grams Route: PO; rr5 22:40 Follow up: Response: No adverse reaction rr5 22:24 Drug: NS 0.9% 500 ml Volume: 500 ml; Route: IV; Rate: 1 bolus; Site: right forearm; rr5 23:00 Follow up: Response: No adverse reaction; IV Status: Completed infusion; IV Intake: rr5 500ml 23:00 Drug: NS 0.9% 1000 ml Route: IV; Rate: 125 ml/hr; Site: right forearm; rr5 23:44 Follow up: Response: No adverse reaction; IV Status: Order to discontinue infusion; IV rr5 Intake: 100ml Disposition: 09/13 07:13 Co-signature as Attending Physician, Piter Ravi MD I agree with the assessment and ruy plan of care. Disposition: 09/12/18 23:32 Discharged to Home. Impression: Volume depletion, Person with feared health complaint in whom no diagnosis is made - burning pain in left upper back. - Condition is Stable. - Discharge Instructions: Rehydration, Adult. - Medication Reconciliation Form, Thank You Letter, Antibiotic Education, Prescription Opioid Use form. - Follow up: Jordan Doll MD; When: 2 - 3 days; Reason: Recheck today's complaints, Continuance of care, Re-evaluation by your physician. Follow up: Emergency Department; When: As needed; Reason: Worsening of condition. Signatures: Dispatcher [employer] EDPiter Gutierrez MD MD cha Therrien, Shelly, PILOT MANAGER-C PILOT MANAGER-Csnw Lawrence Marcano RN RN rr5 Corrections: (The following items were deleted from the chart) 09/12 23:48 23:32 09/12/2018 23:32 Discharged to Home. Impression: Volume depletion; Person with rr5 feared health complaint in whom no diagnosis is made - burning pain in left upper back. Condition is Stable. Forms are Medication Reconciliation Form, Thank You Letter, Antibiotic Education, Prescription Opioid Use. Follow up: Jordan Doll; When: 2 - 3 days; Reason: Recheck today's complaints, Continuance of care, Re-evaluation by your physician. Follow up: Emergency Department; When: As needed; Reason: Worsening of condition. snw
--- NOTE | 2018-09-13 12:38 | EKG ---
Test Date: 2018-09-12 Test Time: 21:23:12 Diamond Mounter: RR MEASUREMENT RESULTS: Intervals: Rate: 71 DE: 132 QRSD: 74 QT: 384 QTc: 417 [place]: P: 39 DE: 132 QRS: -29 T: -27 INTERPRETIVE STATEMENTS: Normal sinus rhythm Nonspecific ST and T wave abnormality Abnormal ECG Compared to ECG 01/06/2018 21:08:37 ST (T wave) deviation now present T-wave abnormality no longer present Electronically Signed On 09-13-18 12:37:02 CDT by Dayday Poole
== END 2018-09-12 23:48 | disposition home or self-care (01) ==
LOC: ER 19:54
DX: E86.9 Volume depletion, unspecified (principal); Z71.1 Person with feared health complaint in whom no diagnosis is made; M54.9 Dorsalgia, unspecified; E03.9 Hypothyroidism, unspecified; Z88.1 Allergy status to other antibiotic agents; Z88.2 Allergy status to sulfonamides; Z88.6 Allergy status to analgesic agent; Z88.8 Allergy status to other drugs, medicaments and biological substances
CPT/HCPCS: 36415; 71045; 80048; 80076; 83690; 83735; 83880; 84484; 85025; 85379; 85610; 93005; 96360; 99284; J7030

== ENCOUNTER 2019-01-02 18:05 | Emergency (ER) | payer OTHER ==
[2019-01-02 19:59] LABS: Urine Bacteria <20 /HPF (<20); Urine Culture Reflex Order NOT NEEDED; Urine RBC <5 /HPF (NONE SEEN)
[2019-01-02 20:00] LABS: Absolute Lymphocytes (CBC) 1.6 K/uL (0.7-4.9); Basophils % 0.7 % (0-1.3); Lymphocytes % 12.8 % (15.3-44.8); MPV 9.1 fL (7.6-11.3); RBC Red Blood Cell Count 5.41 M/uL (3.86-4.86)
[2019-01-02 20:01] LABS: Urine Blood NEGATIVE (NEG); Urine Glucose NEGATIVE (NEG); Urine Protein NEGATIVE (NEG)
[2019-01-02 20:21] LABS: Bilirubin Direct 0.2 mg/dL (0-0.2); Bilirubin Total 0.8 mg/dL (0.2-1.0); Potassium 4.4 mmol/L (3.5-5.1); Protein, Total 7.6 g/dL (6.4-8.2)
[2019-01-02] MEDS ORDERED: NA CHLORIDE 0.9% 1,000 ML ONE (20:48)
[2019-01-02] MEDS ORDERED: ONDANSETRON 4 MG/2 ML VIAL ONE (20:48)
[2019-01-03] MEDS ORDERED: CEFTRIAXONE/SWI 1gm 1 GM/10 ML SYR ONE (00:30)
[2019-01-03] MEDS ORDERED: TAMSULOSIN 0.4 MG SR CAP ONE (00:30)
[2019-01-03] MEDS ORDERED: MAGNESIUM SULFATE 1 gm IVPB 1 GM/100 ML BAG IV ONE (00:30)
--- NOTE | 2019-01-03 00:48 | ER ---
Nurse's Notes [facility] Name: Tracey Rodriguez Age: 63 yrs Sex: Female : 1955 Arrival Date: 01/02/2019 Time: 18:07 Bed 24 Private MD: Diagnosis: Calculus of ureter-right Presentation: 01/02 18:19 Presenting complaint: Patient states: "I have had a UTI, I started myself on Bactrim, I aj1 was on it 2 days and I went to my doctor in [facility] and he said that I still had infection, so he changed me to Macrobid, but I immediately began to have symptoms of headache and my eyes were blurred, so I went ahead and took it today, but I don't think I'll be able to take it again. And I was very constipated this morning, and from the strain afterward I've been very sick to my stomach. I don't know if I pulled something, but that usually doesn't make me sick to my stomach" Patient reports lower abdominal pain, nausea. Denies vomiting, diarrhea, fever. Transition of care: patient was not received from another setting of care. Onset of symptoms was January 02, 2019. Risk Assessment: Do you want to hurt yourself or someone else? Patient reports no desire to harm self or others. Initial Sepsis Screen: Does the patient meet any 2 criteria? No. Patient's initial sepsis screen is negative. Does the patient have a suspected source of infection? No. Patient's initial sepsis screen is negative. Care prior to arrival: None. 18:19 Method Of Arrival: Ambulatory aj1 18:19 Acuity: ANUJA 3 aj1 Triage Assessment: 18:25 General: Appears in no apparent distress. comfortable, Behavior is calm, cooperative, aj1 appropriate for age. Pain: Complains of pain in right lower quadrant and left lower quadrant Pain currently is 2 out of 10 on a pain scale. Neuro: Level of Consciousness is awake, alert, obeys commands. Cardiovascular: Patient's skin is warm and dry. Respiratory: Airway is patent Respiratory effort is even, unlabored, Respiratory pattern is regular, symmetrical. Historical: - Allergies: 18:25 Ciprofloxacin; aj1 18:25 fluoroquinolones; aj1 18:25 Levaquin; aj1 18:25 anti-inflammatory (all); aj1 18:25 Sulfa (Sulfonamide Antibiotics); aj1 - Home Meds: 18:25 gabapentin Oral [Active]; Protonix Oral [Active]; aj1 - PMHx: 18:25 Diverticulitis; hiatal hernia; Hypoglycemic; Hypothyroidism; throat erosion; UTI; IBS; aj1 - Immunization history:: Flu vaccine is not up to date. - Social history:: Smoking status: Patient/guardian denies using tobacco. - Ebola Screening: : Patient denies travel to an Ebola-affected area in the 21 days before illness onset. Screenin:29 Abuse screen: Denies threats or abuse. Denies injuries from another. Nutritional wh screening: No deficits noted. Tuberculosis screening: No symptoms or risk factors identified. Fall Risk None identified. Assessment: 19:30 General: Appears in no apparent distress. Pain: Complains of pain in suprapubic area wh Pain radiates to left lower quadrant Pain currently is 7 out of 10 on a pain scale. Quality of pain is described as aching, crampy. Neuro: Level of Consciousness is awake, alert, obeys commands, Oriented to person, place, time, situation, Appropriate for age. Cardiovascular: Heart tones S1 S2. Respiratory: Airway is patent Respiratory effort is even, unlabored, Respiratory pattern is regular, symmetrical. GI: Abdomen is flat, non-distended, Bowel sounds present X 4 quads. Abd is soft and non tender X 4 quads. : Reports pain urinary frequency. EENT: No signs and/or symptoms were reported regarding the EENT system. Derm: Skin is intact, is healthy with good turgor, Skin is pink, warm \\T\\ dry. normal. Musculoskeletal: Circulation, motion, and sensation intact. 20:40 Reassessment: Patient appears in no apparent distress at this time. No changes from previously documented assessment. Patient and/or family updated on plan of care and expected duration. Pain level reassessed. Patient is alert, oriented x 3, equal unlabored respirations, skin warm/dry/pink. 21:30 Reassessment: Patient appears in no apparent distress at this time. No changes from previously documented assessment. Patient and/or family updated on plan of care and expected duration. Pain level reassessed. Patient is alert, oriented x 3, equal unlabored respirations, skin warm/dry/pink. Patient denies pain at this time. Patient states feeling better. Patient states symptoms have improved. 22:27 Reassessment: Patient appears in no apparent distress at this time. No changes from previously documented assessment. Patient and/or family updated on plan of care and expected duration. Pain level reassessed. Patient is alert, oriented x 3, equal unlabored respirations, skin warm/dry/pink. Patient denies pain at this time. Patient states feeling better. Patient states symptoms have improved. 23:50 Reassessment: Patient appears in no apparent distress at this time. No changes from previously documented assessment. Patient and/or family updated on plan of care and expected duration. Pain level reassessed. Patient is alert, oriented x 3, equal unlabored respirations, skin warm/dry/pink. Patient denies pain at this time. Patient states feeling better. Patient states symptoms have improved. Piter Page at bedside explaining POC. 01/03 01:38 Reassessment: Patient appears in no apparent distress at this time. No changes from previously documented assessment. Patient and/or family updated on plan of care and expected duration. Pain level reassessed. Patient is alert, oriented x 3, equal unlabored respirations, skin warm/dry/pink. Patient denies pain at this time. Patient states feeling better. Patient states symptoms have improved. Vital Signs: 01/02 18:25 BP 121 / 76; Pulse 113; Resp 20; Temp 97.4; Pulse Ox 95% on R/A; Weight 81.65 kg (R); aj1 Height 5 ft. 3 in. (160.02 cm) (R); 19:30 BP 105 / 58; Pulse 109; Resp 18; Pulse Ox 99% on R/A; wh 20:30 BP 118 / 80; Pulse 98; Resp 18; Pulse Ox 94% on R/A; wh 21:25 BP 117 / 58; Pulse 101; Resp 18; Pulse Ox 100% on R/A; mg2 22:15 BP 113 / 63; Pulse 72; Resp 18; Pulse Ox 96% on R/A; wh 23:30 BP 125 / 94; Pulse 97; Resp 18; Pulse Ox 99% on R/A; 01/03 01:30 BP 116 / 78; Pulse 78; Resp 18; Pulse Ox 100% on R/A; 01/02 18:25 Body Mass Index 31.89 (81.65 kg, 160.02 cm) [facility] ED Course: 01/02 18:07 Patient arrived in ED. as 18:[address] [facility] 18:25 Arm band placed on Patient placed in an exam room. [facility] 19:05 Jm Hills is Primary Nurse. 19:29 Patient has correct armband on for positive identification. Bed in low position. Call light in reach. Side rails up X 1. Pulse ox on. NIBP on. 19:56 Inserted saline lock: 20 gauge in right antecubital area, using aseptic technique. Blood collected. 20:22 Piter Muhammad PA is PHCP. cp 20:22 Oh Borrego MD is Attending Physician. cp 22:40 CT Abd/Pelvis - IV Contrast Only In Process Unspecified. EDMS 01/03 01:42 No provider procedures requiring assistance completed. IV discontinued, intact, bleeding controlled, No redness/swelling at site. Administered Medications: 01/02 20:52 Drug: NS 0.9% 1000 ml Route: IV; Rate: 1000 ml/hr; Site: right antecubital; 01/03 01:41 Follow up: Response: No adverse reaction; IV Status: Completed infusion 01/02 20:53 Drug: Zofran 4 mg Route: IVP; Site: right antecubital; 01/03 01:41 Follow up: Response: No adverse reaction; Nausea is decreased 00:36 Drug: Rocephin 1 grams Route: IV; Rate: calculated rate; Site: right antecubital; 01:42 Follow up: Response: No adverse reaction; IV Status: Completed infusion 00:37 Drug: Magnesium Sulfate 1 grams Route: IVPB; Infused Over: 30 mins; Site: right antecubital; 01:42 Follow up: Response: No adverse reaction; IV Status: Completed infusion 00:37 Drug: Flomax 0.4 mg Route: PO; 01:42 Follow up: Response: No adverse reaction Outcome: 00:47 Discharge ordered by . cp 01:43 Discharged to home ambulatory, with family. 01:43 Condition: good 01:43 Discharge instructions given to patient, family, Instructed on discharge instructions, follow up and referral plans. no drinking with medication, no driving heavy equipment, medication usage, urine strainer, POC Kidney Stones and Renal Colic Demonstrated understanding of instructions, follow-up care, medications, POC Prescriptions given X 4. 01:44 Patient left the ED. Signatures: Dispatcher [employer] Inge Sommers, RN RN aj1 Melody Vazquez Corey, PA PA cp Habalo, Winsy wh Gardose, Michele, RN RN mg2
--- NOTE | 2019-01-03 00:49 | EDPHYS ---
Physician Documentation [facility] Name: Tracey Rodriguez Age: 63 yrs Sex: Female : 1955 Arrival Date: 01/02/2019 Time: 18:07 Bed 24 Private MD: ED Physician Oh Borrego HPI: 01/02 19:55 This 63 yrs old Female presents to ER via Ambulatory with complaints of cp Urinary Problem, Medication Reaction. 19:55 The patient presents with abdominal pain in the lower abdomen. Onset: The cp symptoms/episode began/occurred last week. 19:55 The patient presents with urinary symptoms. Onset: The symptoms/episode began/occurred cp last week. 19:55 Patient reports she is currently taking prescribed Macrobid for UTI but c/o headache cp and blurry vision after taking medication. Historical: - Allergies: 18:25 Ciprofloxacin; aj1 18:25 fluoroquinolones; aj1 18:25 Levaquin; aj1 18:25 anti-inflammatory (all); aj1 18:25 Sulfa (Sulfonamide Antibiotics); aj1 - Home Meds: 18:25 gabapentin Oral [Active]; Protonix Oral [Active]; aj1 - PMHx: 18:25 Diverticulitis; hiatal hernia; Hypoglycemic; Hypothyroidism; throat erosion; UTI; IBS; aj1 - Immunization history:: Flu vaccine is not up to date. - Social history:: Smoking status: Patient/guardian denies using tobacco. - Ebola Screening: : Patient denies travel to an Ebola-affected area in the 21 days before illness onset. ROS: 20:00 Constitutional: Negative for body aches, chills, fever, poor PO intake. cp 20:00 Eyes: Negative for injury, pain, redness, and discharge. cp 20:00 ENT: Negative for drainage from ear(s), ear pain, sore throat, difficulty swallowing, cp difficulty handling secretions. 20:00 Cardiovascular: Negative for chest pain, palpitations. 20:00 Respiratory: Negative for cough, shortness of breath, wheezing. 20:00 Abdomen/GI: Positive for abdominal pain, of the suprapubic area and left lower quadrant, Negative for vomiting, diarrhea, constipation, black/tarry stool, rectal bleeding. 20:00 Neuro: Negative for altered mental status, headache, weakness. 20:00 All other systems are negative. Exam: 20:10 Constitutional: The patient appears in no acute distress, alert, awake, cp non-diaphoretic, non-toxic, well developed, well nourished. 20:10 Head/Face: Normocephalic, atraumatic. cp 20:10 Eyes: Periorbital structures: appear normal, Conjunctiva: normal, no exudate, no injection, Sclera: no appreciated abnormality, Lids and lashes: appear normal, bilaterally. 20:10 ENT: External ear(s): are unremarkable, Nose: is normal, Mouth: Lips: moist, Oral mucosa: pink and intact, moist, Posterior pharynx: is normal, airway is patent, no erythema, no exudate. 20:10 Chest/axilla: Inspection: normal, Palpation: is normal, no crepitus, no tenderness. 20:10 Cardiovascular: Rate: tachycardic, Rhythm: regular, Edema: is not appreciated, JVD: is not appreciated. 20:10 Respiratory: the patient does not display signs of respiratory distress, Respirations: normal, no use of accessory muscles, no retractions, no splinting, no tachypnea, labored breathing, is not present, Breath sounds: are clear throughout, no decreased breath sounds, no stridor, no wheezing. 20:10 Abdomen/GI: Inspection: abdomen appears normal, Bowel sounds: active, all quadrants, Palpation: soft, in all quadrants, mild abdominal tenderness, in the suprapubic area and left lower quadrant, rebound tenderness, is not appreciated, involuntary guarding, is not appreciated. 20:10 Back: CVA tenderness, is absent. 20:10 Skin: no rash present. cp 20:10 Neuro: Orientation: is normal, Mentation: is normal, Motor: moves all fours, strength cp is normal, Sensation: is normal, Gait: is steady. Vital Signs: 18:25 BP 121 / 76; Pulse 113; Resp 20; Temp 97.4; Pulse Ox 95% on R/A; Weight 81.65 kg (R); aj1 Height 5 ft. 3 in. (160.02 cm) (R); 19:30 BP 105 / 58; Pulse 109; Resp 18; Pulse Ox 99% on R/A; wh 20:30 BP 118 / 80; Pulse 98; Resp 18; Pulse Ox 94% on R/A; wh 21:25 BP 117 / 58; Pulse 101; Resp 18; Pulse Ox 100% on R/A; mg2 22:15 BP 113 / 63; Pulse 72; Resp 18; Pulse Ox 96% on R/A; wh 23:30 BP 125 / 94; Pulse 97; Resp 18; Pulse Ox 99% on R/A; 01/03 01:30 BP 116 / 78; Pulse 78; Resp 18; Pulse Ox 100% on R/A; 01/02 18:25 Body Mass Index 31.89 (81.65 kg, 160.02 cm) aj1 MDM: 01/02 20:24 Patient medically screened. cp 01/03 00:45 Data reviewed: vital signs, nurses notes, lab test result(s), radiologic studies, CT cp scan, and as a result, I will discharge patient. 00:45 Counseling: I had a detailed discussion with the patient and/or guardian regarding: the cp historical points, exam findings, and any diagnostic results supporting the discharge/admit diagnosis. 01/02 19:35 Order name: Urine Microscopic Only; Complete Time: 20:45 em1 01/02 19:36 Order name: Urine Dipstick--Ancillary (enter results); Complete Time: 20:45 em1 01/02 19:44 Order name: Basic Metabolic Panel; Complete Time: 20:45 mg2 01/02 19:44 Order name: CBC with Diff; Complete Time: 20:45 mg2 01/02 19:44 Order name: Creatinine for Radiology; Complete Time: 20:45 mg2 01/02 19:44 Order name: Hepatic Function; Complete Time: 20:45 mg2 01/02 19:36 Order name: Urine Dipstick-Ancillary (obtain specimen); Complete Time: 19:36 em1 01/02 19:44 Order name: Lipase; Complete Time: 20:45 mg2 01/02 20:47 Order name: CT Abd/Pelvis - IV Contrast Only 01/02 19:44 Order name: IV Saline Lock; Complete Time: 19:56 mg2 01/02 19:44 Order name: Labs collected and sent; Complete Time: 19:56 mg2 Administered Medications: 01/02 20:52 Drug: NS 0.9% 1000 ml Route: IV; Rate: 1000 ml/hr; Site: right antecubital; 01/03 01:41 Follow up: Response: No adverse reaction; IV Status: Completed infusion 01/02 20:53 Drug: Zofran 4 mg Route: IVP; Site: right antecubital; 01/03 01:41 Follow up: Response: No adverse reaction; Nausea is decreased 00:36 Drug: Rocephin 1 grams Route: IV; Rate: calculated rate; Site: right antecubital; 01:42 Follow up: Response: No adverse reaction; IV Status: Completed infusion 00:37 Drug: Magnesium Sulfate 1 grams Route: IVPB; Infused Over: 30 mins; Site: right antecubital; 01:42 Follow up: Response: No adverse reaction; IV Status: Completed infusion 00:37 Drug: Flomax 0.4 mg Route: PO; 01:42 Follow up: Response: No adverse reaction Disposition: 07:04 Co-signature as Attending Physician, Oh Borrego MD I agree with the assessment and tw4 plan of care. Disposition: 01/03/19 00:47 Discharged to Home. Impression: Calculus of ureter - right. - Condition is Stable. - Discharge Instructions: Kidney Stones, Renal Colic. - Prescriptions for Keflex 500 mg Oral Capsule - take 1 capsule by ORAL route every 8 hours for 7 days; 21 capsule. Zofran 4 mg Oral Tablet - take 1 tablet by ORAL route every 12 hours As needed; 20 tablet. Flomax 0.4 mg Oral Capsule, Sust. Release 24 hr - take 1 capsule by ORAL route once daily As needed 1/2 hour following the same meal each day; 5 capsule. Tramadol 50 mg Oral Tablet - take 20 tablet by ORAL route every 8 hours as needed; 12 tablet. - Medication Reconciliation Form, Thank You Letter, Antibiotic Education, Prescription Opioid Use form. - Follow up: Private Physician; When: primary urologist; Reason: Recheck today's complaints. - Problem is an ongoing problem. - Symptoms have improved. Signatures: Dispatcher [employer] EDInge Sandoval RN RN gary1 Awais Vazquez1 Piter Muhammad PA PA cp Habalo, Winsy wh Wadley, Terrence, MD MD tw4 Charles Chinchilla RN RN mg2 Corrections: (The following items were deleted from the chart) 01:44 00:47 01/03/2019 00:47 Discharged to Home. Impression: Calculus of ureter - right. wh Condition is Stable. Forms are Medication Reconciliation Form, Thank You Letter, Antibiotic Education, Prescription Opioid Use. Follow up: Private Physician; When: primary urologist; Reason: Recheck today's complaints. Problem is an ongoing problem. Symptoms have improved. cp
[2019-01-03 03:12] VITALS: TEMP 97.4
[2019-01-03 03:25] VITALS: BP 116/78; O2SAT 100
--- NOTE | 2019-01-04 15:34 | RAD REPORT ---
EXAM DESCRIPTION: CT - Abdomen Pelvis W Contrast - 01/03/2019 3:56 am CLINICAL HISTORY: The patient is 63 years old and is Female; left flank pain TECHNIQUE: Axial computed tomography images of the abdomen and pelvis with intravenous contrast. S agittal and coronal reformatted images were created and reviewed. This CT exam was performed using one or more of the following dose reduction techniques: automated exposure control, adjustment of t he mA and/or kV according to patient size, and/or use of iterative reconstruction technique. COMPARISON: CT abdomen and pelvis without contrast dated January 06, 2018. FINDINGS: LUNG BASES: Dependent subsegmental atelectasis bilaterally. Otherwise, no bases are joseph ar. HEART: Heart is normal. No pericardial effusion. ABDOMEN: LIVER: Multiple rounded hepatic hypodensities measuring up to 1.8 cm in length. No ductal dilatati on or capsular retraction. GALLBLADDER AND BILE DUCTS: Prior cholecystectomy. No ductal dilation. PANCREAS: Unremarkable. No mass. No ductal dilation. SPLEEN: Unremarkable. No splenomegaly. ADRENALS: Unremarkable. No mass. KIDNEYS AND URETERS: 4 mm obstructive stone in the mid right ureter. Mild right hydronephrosis and hydroureter. A dditional nonobstructive stone in the inferior pole of the left kidney. 4.2 cm right parapelvic maddie al cyst. Multiple additional bilateral renal hypodensities. STOMACH AND BOWEL: Colonic diverticulosis without CT evidence of acute diverticulitis. No obstruction. PELVIS: APPENDIX: The appendix is seen and is within normal limits BLADDER: Bladder is decompressed. REPRODUCTIVE: Unremarkable as visualized. ABDOMEN and PELVIS: INTRAPERITONEAL SPACE: Unremarkable. No free air. No significant fluid collection. BONES/JOINTS: Anterolisthesis of L3 on L4 and L4 on L5 on a degenerative basis. Diffuse osteopenia . No acute fracture. No dislocation. SOFT TISSUES: Unremarkable. VASCULATURE: Trace atherosclerotic disease. No abdominal aortic aneurysm. LYMPH NODES: Unremarkable. No enlarged lymph nodes. IMPRESSION: 1. Obstructive 4 mm right mid ureteral stone with mild hydronephrosis and hydroureter. Mild enlargement of the right kidney. Correlate for with urinalysis four superimposed infectious pro cess. 2. Colonic diverticulosis without CT evidence of acute diverticulitis. 3. Additional punctate left renal stone. 4. Multiple right renal hypodensities measuring up to 4.2 cm. 5. Anterolisthesis of L3 on L4 and L4 on L5 on a degenerative basis. Diffuse osteopenia. Electronically signed by: Martir Gtz DO 01/02/2019 11:03 PM CDT Due to temporary technical issues with the PACS/Fluency reporting system, reports are being signed by the in house radiologist as a courtesy to ensure prompt reporting. The interpreting radiologist is f ully responsible for the content of the report.
== END 2019-01-03 01:44 | disposition home or self-care (01) ==
LOC: ER 18:05
DX: N20.1 Calculus of ureter (principal); E03.9 Hypothyroidism, unspecified; Z88.1 Allergy status to other antibiotic agents; Z88.2 Allergy status to sulfonamides; Z88.3 Allergy status to other anti-infective agents; Z88.8 Allergy status to other drugs, medicaments and biological substances
CPT/HCPCS: 96365; 96361; 96368; 85025; 80048; 36415; 80076; 83690; 74177; 96375; 99284; Q9967; J3475; J0696; J7030; J2405; 81003; 81015

== ENCOUNTER 2019-12-12 16:29 | Emergency (ER) | payer OTHER ==
--- OUTSIDE RECORDS SUMMARY | 2019-12-12 16:31 | XMS REPORT | Clinical Summary ---
:1955 Author Organization [facility] Address [address] [place] [address] Care Team Providers Name Role Phone Carlos Anguiano MD Primary Care Provider Allergies Active Allergy Reactions Severity Noted Date Comments Ciprofibrate Swelling 04/08/2016 Ciprofloxacin 06/05/2017 Levofloxacin Swelling 04/08/2016 Nsaids (Non-Steroidal Anti-Inflammatory Drug) Swelling 04/08/2016 Sulfa (Sulfonamide Antibiotics) 8 Medications Medication Sig Dispensed Refills Start Date End Date Status ARMOUR THYROID 30 mg TK 1 T PO QD. 1 01/30/2016 Active tablet tamsulosin (FLOMAX) Take 1 capsule 30 capsule 0 11/18/2018 Active 0.4 mg capsule (0.4 mg total) by mouth daily. Active Problems No known active problems Encounters Date Type Specialty Care Team Description 12/13/2018 Refill Urology Emily Vazquez M D Ureteral stone (Primary Dx) after 12/11/2018 Family History Medical History Relation Name Comments [...] CANCER SCREENING 1977 BREAST CANCER SCREENING 2006 COLONOSCOPY SCREENING 2006 SHINGLES VACCINES (#1) 2006 INFLUENZA VACCINE 12/29/2019 Results Not on fileafter 12/11/2018 Advance Directives For more information, please contact: [phone] Type Date Recorded Patient Testing Lead Explanati on Advance Directives, Living Will and Medical Power of Diesel Service 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
--- OUTSIDE RECORDS SUMMARY | 2019-12-12 16:33 | XMS REPORT | Continuity of Care Document ---
:1955 Author Organization [employer] Care Team Providers Name Role Phone [employer] Unavailable Un available Problems Problem Status Onset Classification Date Comments Sourc e Date Reported F/U AND 2ND OPINION Active [address] Acute sinusitis, 07/25/2018 OPID unspecified 018 [place] KNEE PAIN Active [address]-NAUSEA, EARLY Active [address] STOMACH PAIN Active [address] Discharge Diagnosis: 09/19/2015 [place] Adult hypothyroidism [place] [place] WEAKNES AND BLURY Active [place] VISION [place] BDDC - NEW PT CONSULT Active [address] BDDC/ Z12.11 SCREENING Active [facility] FOR MALIGNANT ALICIA [address] [place] [address] PAIN IN THE ABDOMEN; Active [facility] UPPER AND LOWER [address] Diarrhea (finding) Resolved Problem 10/10/2019 Data 015 migrated Medical from [facility] on 10/04/14. [facility] OPID [place], SUGARD Escobar, [place] Screening mammography Active Problem 10/10/2019 Data (procedure) 015 migrated Medical from [facility] on 10/04/14. [facility] OPID [place], OPID [place], [place] Vitamin D deficiency Active Problem 10/10/2019 Data (disorder) 015 migrated Medical from [facility] on 10/04/14. [facility] OPID [place], OPID [place], [place] VITAMIN D DEFICIENCY Active Condition 08/23/2014 015 [facility] Group DIARRHEA Active Condition 08/23/2014 015 Medical Group MAMMOGRAM YEARLY Active Condition 08/23/2014 SCREENING 015 Medical Group Gastritis (disorder) Active Problem 10/10/2019 Data 015 migrated Medical from [facility] on 10/04/14. Medical Center,[facility], OPID [place], OPID [place], [place] Multiple joint pain Active Problem 10/10/2019 Data MH (finding) 015 migrated Medical from [facility] [place] 10[place]04[place]14. Medical Center,[facility], OPID [place], OPID [place], [place] Muscle pain (finding) Active Problem 10/10/2019 Data 015 migrated Medical from [facility] on 10/04/14. Medical Center,[facility], OPID [place], OPID [place], [place] Nausea (finding) Active Problem 10/10/2019 Data 015 migrated Medical from [facility] on 10/04/14. 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 Medical Center,[facility] OPID [place], OPID [place], [place] Numbness (finding) Active Problem 10/10/2019 Data 015 migrated Medical from [facility] on 10/04/14. Medical Center,[facility] OPID [place], OPID [place], [place] Reactive hypoglycemia Active Problem 10/10/2019 Data MH (disorder) 015 migrated Medical from [facility] on 10/04/14. Medical Center,[facility] OPID [place], JESSICA [place], [place] HYPOGLYCEMIA, REACTIVE Active Condition 08/23/2014 015 Medical Group ROUTINE GENERAL Active Condition 08/23/2014 MEDICAL EXAMINATION AT [facility] Group NUMBNESS Active Condition 08/23/2014 015 Medical Group PINWORMS Active Condition 08/23/2014 015 Medical Group BACK PAIN, LUMBAR, Active Condition 08/23/2014 WITH RADICULOPATHY 014 M edical Group CERVICAL RADICULOPATHY Active Condition 08/23/2014 014 Medical Group HIP PAIN, BILATERAL Active Condition 08/23/2014 014 Medical Group BREAST PAIN, BILATERAL Inactive Condition 08/23/2014 014 Medical Group Discharge Diagnosis: 12/03/2013 [place] Biliary colic [address] [place] NAUSEA Active [place] ABDOMINAL PAIN, RIGHT Inactive Condition 08/23/2014 UPPER QUADRANT 014 Medic al Group ABDOMINAL PAIN, LEFT Active Condition 11/07/2013 UPPER QUADRANT 014 Medic al Group ACID REFLUX DISEASE Active Condition 08/23/2014 014 Medical Group MUSCLE STRAIN Active Condition 10/05/2013 014 Medical Group NAUSEA Inactive Condition 08/23/2014 014 Medical Group ROTATOR CUFF (CAPSULE) Active Condition 08/23/2014 SPRAIN 014 Medical Group SACROILIITIS Inactive Condition 08/23/2014 014 Medical Group OBESITY Active Condition 08/23/2014 014 Medical Group LONG-TERM (CURRENT) Active Condition 08/23/2014 USE OF OTHER 014 Medical MEDICATIONS Group DRY SOCKET Inactive Condition 08/23/2014 013 Medical Group HEARTBURN Inactive Condition 08/23/2014 013 Medical Group INGROWN NAIL Inactive Condition 08/23/2014 013 Medical Group FATIGUE Active Condition 08/23/2014 013 Medical Group FLAT FOOT Active Condition 08/23/2014 013 Medical Group HAIR LOSS Active Condition 08/23/2014 013 Medical Group Sinusitis (disorder) Resolved Problem 10/10/2019 Data migrated from [facility] on 10/14/14. 012 Data migrated from [email or web address] on 10/13/14. Medical Group,[facility], [place], OPID [place], OPID [place], [place] BACK PAIN Active Condition 08/23/2014 012 Medical Group DEFICIENCY, VITAMIN D Active Condition 08/23/2014 NOS 012 Medical Group HYPERGLYCEMIA Inactive Condition 08/23/2014 012 Medical Group HYPOTHYROIDISM Active Condition 08/23/2014 012 Medical Group Autoimmune disease Active Problem 10/10/2019 (disorder) Medical Group,[facility] Hypoglycemia Resolved Problem 10/10/2019 (disorder) Medical Group,[facility], [place], OPID [place], OPID [place], [place] Obesity (disorder) Active Problem 10/10/2019 Medical Group,[facility], [place], OPID [place], OPID [place], [place] ASTHMA Active Condition 08/23/2014 Medical Group HEADACHE Inactive Condition 08/23/2014 Medical Group HYPERCHOLESTEROLEMIA Active Condition 08/23/2014 Medical Group FAMILY HISTORY OF Active Condition 08/23/2014 M H ASTHMA Medical Group FH LUNG CANCER Active Condition 08/23/2014 Medical Group FH DEPRESSION Active Condition 08/23/2014 Medical Group DIABETES - DM Active Condition 08/23/2014 Medical Group HEART DISEASE Active Condition 08/23/2014 Medical Group Medications Medication Details Route Status Patient Ordering Order Source Instructions Provider Date nitrofurantoin 100 mg = 1 Active macrocrystals-mono cap, PO, 019 Medi [place]erson hydrate 100 mg BID, X 7 Group oral capsule day, # 14 (Macrobid) cap, 0 Refill(s), Pharmacy: [id number] fluconazole 150 mg See Active oral tablet Instruction 019 Medical s, 1 tab PO Group ONCE a week, # 2 tab, 0 Refill(s), Pharmacy: [email or web address] [address] ciclopirox 7.7 1 appl, Active MG/ML Topical TOP, BID, X 019 Medica l Cream 28 day, # Group 90 gm, 0 Refill(s), Pharmacy: [facility] [address] rifaximin 550 MG 550 mg = 1 Active MH [place] Oral Tablet tab, PO, 019 Medical [XIFAXAN] TID, # 42 Center tab, 0 Refill(s), Pharmacy: [facility] pantoprazole 40 mg, PO, Active MH [place] Daily, # 30 019 Medical tab, 0 Center Refill(s) Hyoscyamine 0.125 mg = Active MH Sulfate 0.125 MG 1 tab, PO, 019 Medi emerson Disintegrating QID, PRN Group Tablet [Nulev] Spasm, # 40 tab, 1 Refill(s), Pharmacy: [facility] [address]148 Sulfamethoxazole 1 tab, PO, Active MH 800 MG / BID, X 7 019 Medical Trimethoprim 160 day, # 14 Group MG Oral Tablet tab, 0 [Bactrim] Refill(s), Pharmacy: [facility] [address] clonazePAM 0.5 mg 0.5 mg = 1 Active MH oral tablet tab, PO, 019 Medical Daily, PRN Group Anxiety, # 30 tab, 1 Refill(s) Metronidazole 500 500 mg = 1 Active MH [place] Oral Tablet tab, PO, 019 Medical [Flagyl] Q8H, X 10 Group day, # 30 tab, 0 Refill(s), Pharmacy: [facility] [address]43 Amoxicillin 875 MG 875 mg = 1 Active MH / Clavulanate 125 tab, PO, 019 Medic al MG Oral Tablet Q12H, X 10 Group [Augmentin 875-mg] day, # 20 tab, 0 Refill(s), Pharmacy: [facility] 8[address]60 Nystatin 923696 1,000,000 No Longer MH [place] Oral Tablet unit = 2 Active 018 Medical tab, PO, Group BID, X 30 day, # 120 tab, 0 Refill(s), Pharmacy: [facility] [address]28 sucralfate 1 g 1 gm = 1 Active MH oral tablet tab, PO, 018 Medical QID, # 120 Group tab, 0 Refill(s), [facility] [address] benzonatate 100 MG 100 mg = 1 No Longer Oral Capsule cap, PO, Active 018 Medical [Tessalon Perles] TID, PRN as Gr oup needed for cough, X 7 day, # 21 cap, 0 Refill(s), [facility] [address] Azithromycin 5 Day See No Longer Dose Pack 250 mg Instruction Active 018 Med ical oral tablet s, Take 2 Group tablets by mouth the first day then 1 tablet by mouth days 2-5., X 5 day, # 6 tab, 0 Refill(s), [facility] [address] doxycycline 100 mg = 1 Active hyclate 100 MG tab, PO, 018 Medical Oral Tablet BID, 0 Group Refill(s) clonazePAM 0.5 mg 0.5 mg = 1 No Longer M H oral tablet, tab, PO, Active 018 Medical disintegrating BID, # 60 Group tab, 1 Refill(s) valACYclovir 1 g 1 gm = 1 No Longer oral tablet tab, PO, Active 018 Medical Q8H, X 10 Group day, # 30 tab, 1 Refill(s), [facility] [address] pregabalin 50 MG 50 mg = 1 Active Oral Capsule cap, PO, 018 Medical [Lyrica] TID, # 90 Group cap, 0 Refill(s) valACYclovir 1 g 1 gm = 1 No Longer oral tablet tab, PO, Active 018 Medical Q8H, X 7 Group day, # 21 tab, 1 Refill(s), [facility] [address] valACYclovir 1 g 1 gm = 1 No Longer oral tablet tab, PO, Active 018 Medical Q8H, X 7 Group day, # 21 tab, 1 Refill(s), [facility] [address] polyethylene 17 gm, PO, No Longer glycol 3350 oral Daily, X 31 Active 018 Med ical powder for day, # 527 Group reconstitution gm, 1 Refill(s), Pharmacy: [facility] benzonatate 100 mg 100 mg = 1 Active oral capsule cap, PO, 018 Medical TID, do not Group crush or chew, X 10 day, # 30 cap, 0 Refill(s), Pharmacy: [facility] [address] Codeine Phosphate 5 mL, PO, Active 2 MG/ML / Q12H, PRN 018 Medical Guaifenesin 20 cough, X 10 Group MG/ML Oral day, # 100 Solution mL, 0 [Cheratussin] Refill(s) Fluticasone 1 spray, Active propionate 0.05 NASAL, BID, 018 Medi emerson MG/ACTUAT Metered # 16 gm, 2 [place] up Dose Nasal [place] Refill(s), Pharmacy: [email or web address] [address] Azithromycin 5 Day See Active Dose Pack 250 mg Instruction 018 Med ical oral tablet s, Take 2 Group tablets by mouth the first day then 1 tablet by mouth days 2-5., X 5 day, # 6 tab, 0 Refill(s), Pharmacy: [facility] [address] clonazePAM 0.5 mg 0.5 mg = 1 Active oral tablet, tab, PO, 017 Medical disintegrating BID, # 60 Group tab, 1 Refill(s) EnteraGam EnteraGam, Active [facility] See [facility] s, Samples given in clinic on 03/12/16. Lot [id number] exp date 10/15, # 1 box, Refill(s) 0 pantoprazole 40 MG 40 mg = 1 Active [facility] Enteric Coated tab, PO, 016 Medical Tablet [Protonix] Daily, 0 Cente r Refill(s) Levothyroxine 25 Active [place] Sodium 0.025 MG microgram = 016 [place] Oral Tablet 1 tab, PO, [Synthroid] Daily, # 14 tab, 0 Refill(s) Sodium Chloride 1,000 mL, Inactive Leigh gar 0.154 MEQ/ML 1,000 016 [place] Injectable ml/hr, Solution Infuse Over: 1 hr, Route: IV, 1,000, Drug form: INJ, ONCE, Priority: STAT, Dosing Weight 85.818 kg, Start date: 09/16/15 17:33:00 CDT, Duration: 1 doses or times, Stop date: 09/16/15 17:33:00 CDT Saline Flush 0.9% Notes: Inactive [place] gar (Same as: 016 [place] BD Posiflush) cholestyramine 4 4 gm, PO, Active [place] g/5 g oral powder BID, # 210 015 Med ical gm, 0 Center Refill(s), called to pharmacy Promethazine 12.5 mg = 1 Active [place] Hydrochloride 12.5 tab, PO, 015 Medi emerson MG Oral Tablet Q4H, PRN Center [Phenergan] Other-See Comments, X 10 day, # 60 tab, 0 Refill(s), called to pharmacy Hyoscyamine 0.125 mg = Inactive [place] Sulfate 0.125 MG 1 tab, SL, 015 Medi emerson Sublingual Tablet Q4H, # 30 Cent er [Levsin] tab, 1 Refill(s), [facility] [address] Ondansetron 8 MG 8 mg = 1 Active [place] as Disintegrating tab, PO, 015 Medical Tablet [Zofran] TID, PRN Center Nausea and Vomiting, Dissolve tab under tongue, X 7 day, # 21 tab, 1 Refill(s), [facility] [address] GoLYTELY oral 240 mL, PO, Active [place] as powder for Q10Min, # 1 015 Medical reconstitution ea, 0 Center Refill(s), [facility] [address] Flagyl 500 mg = 1 Active [place] tab, PO, 015 Medical BID, # 14 Center tab, 0 Refill(s) VITAMIN D 1 capsule Active (ERGOCALCIFEROL) weekly x 12 015 Med ical 80111 UNIT CAPS weeks Group OMEPRAZOLE 20 MG Take one Active CPDR capsule by 015 Medical mouth daily Group ONDANSETRON HCL 4 1 tablet Active MG TABS every 8 015 Medical hours as Group needed for nausea/vomi ting QSYMIA 3.75-23 MG 1 po qd Active [id number] 015 Medical Group CYCLOBENZAPRINE 1/2-1 po No Longer MH HCL 10 MG TABS TID as Active 015 Medical needed for Group spasms PROMETHAZINE HCL 1 SUPP OR Q No Longer M H 25 MG SUPP 4 TO 6 HRS Active 014 Medical PRN N/V. Group TRAMADOL HCL 50 MG 1 tablet Active MH TABS every 12 014 Medical hours as Group needed for pain GABAPENTIN 100 MG 1 capsule No Longer MH CAPS three times Active 014 Medical a day Group TRAMADOL HCL 50 MG 1 tablet No Longer MH TABS every 12 Active 014 Medical hours as Group needed for pain TRAMADOL HCL 50 MG 1 tablet No Longer MH TABS every 12 Active 014 Medical hours as Group needed for pain Promethazine 12.5 mg = 1 Active [place] Hydrochloride 12.5 tab, PO, 014 [place] MG Oral Tablet Q6H, Nausea [Phenergan] & Vomiting, # 20 tab, 0 Refill(s) Acetaminophen 325 1 tab, PO, Active MH [place] / Hydrocodone Q6H, Pain, 014 [place] Bitartrate 5 MG # 24 tab, 0 Oral Tablet [[place] Refill(s) 5/325] Phenergan Notes: Do Inactive MH [place] not give IV 014 [place] push. (Same as: Phenergan) Saline Flush 0.9% Notes: Inactive MH [place] (Same as: 014 [place] BD Posiflush) Carafate 0 Refill(s) Active MH [place] 014 [place] Promethazine 0 Refill(s) Active MH [place] 0[place] SUCRALFATE 1 10 mL qid x No Longer MH GM/10ML SUSP 2 weeks Active 014 Medical Group PROMETHAZINE HCL 1 po BID No Longer MH 12.5 MG TABS prn Active 014 Medical Group SUCRALFATE 1 10 mL qid x No Longer MH GM/10ML SUSP 2 weeks Active 014 Medical Group OMEPRAZOLE 20 MG Take one Active CPDR capsule by 014 Medical mouth daily Group MELOXICAM 7.5 MG 1 tablet Active MH TABS daily as 014 Medical needed for Group pain PROMETHAZINE HCL 1-2 tablets No Longer M H 12.5 MG TABS every 6 Active 014 [...] 1 GM/10ML 10 mL QID No Longer M H SUSP Active 013 Medical Group CARAFATE 1 GM/10ML 10 mL QID No Longer M H SUSP Active 013 Medical Group ZEGERID 40-1680 MG 1 po qd No Longer MH PACK Active 013 Medical Group ALIGN one daily No Longer MH Active 013 Medical Group ZEGERID 40-1680 MG 1 po qd No Longer MH PACK Active 013 Medical Group GLUMETZA 500 MG 1 po qd Active MH [id number] 013 Medical Group NULEV 0.125 MG 1 po q 8-12 No Longer TBDP prn Active 012 Medical Group ZITHROMAX Z-MADHU Take as No Longer 250 MG TABS directed Active 012 Medical Group THYROID COMPOUND Active MH Medical Group Allergies, Adverse Reactions, Alerts Substance Category Reaction Severity Reaction Status Date Comments S ource type Reported ANTI-INFLAMMATO Drug ANTI-INFL FIORDALIZA allergy AMMATORIE 2 Medica l S Group LEVAQUIN Drug LEVAQUIN MH allergy 2 Medical Group BACTRIM Drug BACTRIM MH allergy 2 Medical Group ciprofloxacin Assertion Drug Active MH allergy Medical Group Levaquin Assertion Drug Active allergy Medical Group Food Iodine Assertion Drug Active allergy Medical Group NSAIDs Assertion Drug Active allergy Medical Group Immunizations Immunization Date Given Site Status Last Updated Comments Rossy rce influenza 12/08/2011 completed Medica l immunization (Flu Gr oup Vax) has been administered Results Order Name Results Value Reference Date Interpretation Comments Rossy rce Range CARDIAC Troponin-I <0.02 0.00 - 09/15 [place] ENZYMES 0.40 /2015 [facility] CARDIAC CK MB <0.5 0.5 - 3.6 09/15 [place] ENZYMES [facility] CARDIAC Total CK 54 12 - 191 09/15 [place] [facility] CARDIAC CK MB Index <0.9 0.0 - 2.5 09/15 [place] [facility] CHEM PANEL Total Protein 7.0 6.4 - 8.4 09/15 Eligh [facility] CHEM PANEL eGFR 71 09/15 Result Comment: The [facility] eGFR is calculated using the CKD-EPI formula. In most young, healthy individuals the eGFR will be >90 mL/min/1.73m2 . The eGFR declines with age. An eGFR of 60-89 may be normal in some populations, particularly the elderly, for whom the CKD-EPI formula has not been extensively validated. Use of the eGFR is not recommended in the following populations:< br/>
[place] viduals with unstable creatinine concentration s, including patients and those with serious co-morbid conditions.<b r/>
Patie nts with extremes in muscle mass or diet.

The data above are obtained from the National Kidney Disease Education Program (NKDEP) which additionally recommends that when the eGFR is used in patients with extremes of body mass index for purposes of drug dosing, the eGFR should be multiplied by the estimated BMI. CHEM PANEL Globulin 3.3 2.0 - 4.0 / MH [place] /2015 [place] CHEM PANEL A/G Ratio 1.1 0.7 - 1.6 09/15 [place] CHEM PANEL Bili Total 0.8 0.2 - 1.3 09/15 [place] CHEM PANEL Alk Phos 77 39 - 136 09/15 [place] CHEM PANEL AGAP 12.7 10.0 - 09/15 [place] 20.0 /2015 [place] CHEM PANEL B/C Ratio 18 6 - 25 09/15 [place] CHEM PANEL Albumin Lvl 3.7 3.5 - 5.0 09/15 [place] CHEM PANEL ALT 24 0 - 65 09/15 [place] CHEM PANEL AST 18 0 - 37 09/15 [place] CHEM PANEL Chloride Lvl 108 95 - 109 09/15 [place] CHEM PANEL Potassium Lvl 3.7 3.5 - 5.1 09/15 [place] /2015 [place] CHEM PANEL CO2 28 24 - 32 09/15 [place] CHEM PANEL Calcium Lvl 8.6 8.5 - 10.5 09/15 [place] CHEM PANEL Sodium Lvl 145 135 - 145 09/15 [place] CHEM PANEL Creatinine 0.90 0.50 - 09/15 [place] Lvl 1.40 /2015 [place] CHEM PANEL BUN 16 7 - 22 09/15 [place] CHEM PANEL Glucose Lvl 102 70 - 99 09/15 [place] HEMATOLOGY WBC 8.8 3.7 - 10.4 09/15 [place] HEMATOLOGY RBC 5.39 4.20 - 09/15 [place] 5.40 /2015 [place] HEMATOLOGY MCV 88.0 80.0 - 09/15 [place] 98.0 /2015 [place] HEMATOLOGY Hgb 15.6 12.0 - 09/15 [place] 16.0 [place] HEMATOLOGY MCH 29.0 27.0 - 09/15 [place] 31.0 [place] HEMATOLOGY MPV 9.5 7.4 - 10.4 09/15 [place] HEMATOLOGY Platelet 242 133 - 450 09/15 [place] HEMATOLOGY MCHC 33.0 32.0 - 09/15 [place] 36.0 [place] HEMATOLOGY RDW 13.3 11.5 - 06/19 [place] 14.5 /2015 [place] HEMATOLOGY Hct 47.5 36.0 - 09/15 MH [place] 48.0 /2015 [place] HEMATOLOGY Basophils 0.5 0.0 - 1.0 09/15 MH [place] /2015 [place] HEMATOLOGY Eosinophils 1.1 0.0 - 4.0 09/15 MH [place] /2015 [place] HEMATOLOGY Monocytes 6.3 2.0 - 12.0 09/15 MH [place] /2015 [place] HEMATOLOGY Segs 54.0 45.0 - 09/15 MH [place] 75.0 /2015 [place] HEMATOLOGY Lymphocytes 38.1 20.0 - 09/15 MH [place] 40.0 [place] HEMATOLOGY Basophils # 0.0 0.0 - 0.2 09/15 [place] HEMATOLOGY Eosinophils # 0.1 0.0 - 0.5 09/15 [place] gar /2015 [place] HEMATOLOGY Monocytes # 0.6 0.0 - 0.8 09/15 [place] HEMATOLOGY Lymphocytes # 3.4 1.0 - 5.5 09/15 [place] /2015 [place] HEMATOLOGY Segs-Bands # 4.7 1.5 - 8.1 09/15 [place] URINE AND UA Mucus None Seen None Seen 09/15 [place] STOOL (09/16/15 5:47 PM) [place] URINE AND UA Bacteria Occasional None Seen 09/15 [place] gar STOOL /HPF /HPF /2015 [place] URINE AND UA Nitrite Negative Negative 09/15 [place] STOOL (09/16/15 5:47 PM) [place] URINE AND UA Glucose Negative Negative 09/15 [place] STOOL (09/16/15 5:47 PM) [place] URINE AND UA Sq Epi Occasional Few /LPF 09/15 [place] STOOL /LPF /2015 [place] URINE AND UA WBC 0-2 /HPF None Seen 09/15 [place] STOOL /HPF /2015 [place] URINE AND UA RBC None Seen 0 - 2 09/15 [place] STOOL (09/16/15 5:47 PM) /2015 [place] URINE AND Micro? Performed 09/15 [place] STOOL (09/16/15 5:47 PM) [place] URINE AND UA Leuk Est Negative Negative 09/15 [place] STOOL (09/16/15 5:47 PM) /2015 [place] URINE AND UA Protein Negative Negative 09/15 [place] STOOL (09/16/15 5:47 PM) /2015 [place] URINE AND UA pH 6.0 5.0 - 8.0 09/15 [place] STOOL /2015 [place] URINE AND UA Bili Negative Negative 09/15 [place] STOOL *NA* Land (09/16/15 5:47 PM) URINE AND UA Ketones Negative Negative 09/15 [place] STOOL *NA* [place] (09/16/15 5:47 PM) URINE AND UA 0.2 0.1 - 1.0 09/15 [place] STOOL Urobilinogen /2015 [place] URINE AND UA Blood Trace Negative 09/15 [place] STOOL *ABN* /2015 [place] (09/16/15 5:47 PM) URINE AND UA Turbidity Clear Clear 09/15 [place] STOOL (09/16/15 5:47 PM) /2015 [place] URINE AND UA Color Yellow Yellow 09/15 [place] STOOL *NA* [place] (09/16/15 5:47 PM) URINE AND UA Spec Grav 1.025 <=1.030 09/15 [place] STOOL [facility] Serology HELICOB IGG 0.6 U/mL 08/23 Medical Group Chemistry T4, FREE 0.96 0.76 - 08/22 MH 1.46 /2014 Medical Group Hematology ESR 1 0 - 20 08/22 Medical Group Serology RHONDA Negative 08/22 Medical Group URINE AND UA Bacteria Occasional None Seen 11/30 Leigh gar STOOL /HPF /HPF /2013 [place] URINE AND UA RBC 0-2 /HPF 0 - 2 11/30 [place] STOOL [place] URINE AND UA Sq Epi Few /LPF Few /LPF 11/30 [place] STOOL [place] URINE AND UA WBC 0-2 /HPF None Seen 11/30 [place] STOOL /HPF /2013 [place] URINE AND UA Bili Negative Negative 11/30 [place] STOOL *NA* Land (11/30/13 2:00 PM) URINE AND UA Blood Trace Negative 11/30 [place] STOOL *ABN* Land (11/30/13 2:00 PM) URINE AND UA 0.2 0.1 - 1.0 11/30 [place] STOOL Urobilinogen /2013 [place] URINE AND UA pH 6.0 5.0 - 8.0 11/30 [place] STOOL [place] URINE AND UA Ketones Negative Negative 11/30 [place] STOOL *NA* Land (11/30/13 2:00 PM) URINE AND UA Protein Negative Negative 11/30 [place] STOOL (11/30/13 2:00 PM) [place] URINE AND UA Glucose Negative Negative 11/30 [place] STOOL (11/30/13 2:00 PM) [place] URINE AND UA Turbidity Clear Clear 11/30 [place] STOOL (11/30/13 2:00 PM) [place] URINE AND UA Spec Grav 1.020 <=1.030 11/30 [place] STOOL [place] URINE AND UA Color Yellow Yellow 11/30 [place] STOOL *NA* /2013 Land (11/30/13 2:00 PM) URINE AND UA Leuk Est Negative Negative 11/30 [place] STOOL (11/30/13 2:00 PM) [place] URINE AND UA Nitrite Negative Negative 11/30 [place] STOOL (11/30/13 2:00 PM) [facility] CHEM PANEL B/C Ratio 16 6 - 25 11/30 [place] [facility] CHEM PANEL AGAP 14.0 10.0 - 11/30 [place] 20.0 [facility] CHEM PANEL Globulin 3.9 2.0 - 4.0 11/30 [place] [facility] CHEM PANEL A/G Ratio 1.1 0.7 - 1.6 11/30 Sugar [facility] CHEM PANEL eGFR 71 11/30 <sup>1</sup>R [place] esult [facility] Comment: The eGFR is calculated using the CKD-EPI formula. In most young, healthy individuals the eGFR will be >90 mL/min/1.73m2 . The eGFR declines with age. An eGFR of 60-89 may be normal in some populations, particularly the elderly, for whom the CKD-EPI formula has not been extensively validated. Use of the eGFR is not recommended in the following populations:& lt;br/>
I ndividuals with unstable creatinine concentration s, including patients and those with serious co-morbid conditions.<b r/>
Patie nts with extremes in muscle mass or diet.

The data above are obtained from the National Kidney Disease Education Program (NKDEP) which additionally recommends that when the eGFR is used in patients with extremes of body mass index for purposes of drug dosing, the eGFR should be multiplied by the estimated BMI. CHEM PANEL ALT 31 0 - 65 11/30 MH [place] CHEM PANEL AST 25 0 - 37 / MH [place] CHEM PANEL Alk Phos 93 39 - 136 11/30 MH [place] CHEM PANEL Bili Total 0.9 0.2 - 1.3 11/30 [facility] [place] CHEM PANEL Calcium Lvl 9.5 8.5 - 10.5 11/30 [facility] [place] CHEM PANEL Total Protein 8.0 6.4 - 8.4 11/30 [facility] [place] CHEM PANEL Albumin Lvl 4.1 3.5 - 5.0 11/30 [place] CHEM PANEL CO2 24 24 - 32 11/30 [facility] [place] CHEM PANEL Chloride Lvl 104 95 - 109 11/30 [place] CHEM PANEL Creatinine 0.9 0.5 - 1.4 11/30 [place] CHEM PANEL Sodium Lvl 138 135 - 145 11/30 [facility] [place] CHEM PANEL Potassium Lvl 4.0 3.5 - 5.1 11/30 [place] CHEM PANEL BUN 14 7 - 22 11/30 [place] CHEM PANEL Glucose Lvl 92 70 - 99 11/30 <sup>2</sup>I [facility] [place] Data: Adult reference range values reflect the clinical guidelines
of the [place] [employer]. CHEM PANEL Lipase Lvl 147 73 - 393 11/30 [facility] [place] CHEM PANEL Amylase Lvl 35 25 - 115 11/30 [facility] [place] HEMATOLOGY MCHC 34.0 32.0 - 11/30 [place] 36.0 /2013 [place] HEMATOLOGY RDW 12.7 11.5 - 11/30 [place] 14.5 /2013 [place] HEMATOLOGY Platelet 236 133 - 450 11/30 [facility] [place] HEMATOLOGY MPV 9.6 7.4 - 10.4 11/30 [facility] [place] HEMATOLOGY Hgb 16.9 12.0 - 09 [place] 16.0 /2013 [place] HEMATOLOGY WBC 7.1 3.7 - 10.4 11/30 [facility] [place] HEMATOLOGY RBC 5.64 4.20 - 11/30 [place] 5.40 /2013 [place] HEMATOLOGY Hct 49.7 36.0 - 11/30 [place] 48.0 /2013 [place] HEMATOLOGY MCH 29.9 27.0 - 09 [place] 31.0 /2013 [facility] HEMATOLOGY MCV 88.0 80.0 - 11/30 [place] 98.0 /2013 [facility] HEMATOLOGY Eosinophils # 0.0 0.0 - 0.5 11/30 [place] gar [facility] HEMATOLOGY Segs-Bands # 4.8 1.5 - 8.1 11/30 [place] [facility] HEMATOLOGY Monocytes # 0.4 0.0 - 0.8 11/30 MH [place] [facility] HEMATOLOGY Basophils 0.5 0.0 - 1.0 11/30 MH [place] [facility] HEMATOLOGY Basophils # 0.0 0.0 - 0.2 11/30 [place] [facility] HEMATOLOGY Eosinophils 0.7 0.0 - 4.0 11/30 [place] [facility] HEMATOLOGY Lymphocytes # 1.8 1.0 - 5.5 11/30 [place] gar [facility] HEMATOLOGY Segs 67.7 45.0 - 11/30 [place] 75.0 /2013 [facility] HEMATOLOGY Monocytes 5.7 2.0 - 12.0 11/30 [place] [facility] HEMATOLOGY Lymphocytes 25.4 20.0 - 11/30 [place] 40.0 [facility] IMMUNOLOGY [facility] HIV 4th Negative Negative 11/30 [place] (11/30/13 12:35 PM) [facility] Serology HELICOB IGG 0.6 U/mL 11/07 [facility] Serology HELICOB IGG 0.6 U/mL 11/07 [facility] Health Care Analyst PAP SMEAR Normal 03/30 [facility] Health Care Analyst PAP SMEAR Normal 03/30 [facility] Health Care Analyst PAP SMEAR Normal 03/30 [facility] Health Care Analyst PAP SMEAR Normal 03/30 [facility] Pathology PAP SMEAR Normal 03/30 [facility] Pathology PAP SMEAR Normal 03/30 [facility] Pathology Reports No Data Provided for This Section Diagnostic Reports Report Value Date Source Chest 2 views DX 2-VIEW CHEST X-RAY. DATE: 01/05/2018 4:47 PM CDT 01/05/2018 [facility] [place] INDICATION: - J01.90 Acute sinusitis, unspec ified TECHNIQUE: Frontal and lateral views of the ches t were performed. COMPARISON:Chest x-ray 09/16/2015, CT abdomen pe lvis 03/25/2016 FINDINGS: The lungs are zak r without focal mass or consolidation. There are no effusions. The cardiomediastinal silhou ette is unchanged. Mild arthrosis of the thoracic aorta. The osseous structure show no significant findin g. The visualized abdomen is unremarkable. IMPRESSION: No acute cardiopulmonary disease. 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 COMPARISON: CT abdomen and pelvis with contrast 02/23/2015. TECHNIQUE: Volumetric CT acq uisition of the abdomen and pelvis without the intravenous administration contrast. Axial, coronal and sagittal reconstructions. Oral contrast: None. FINDINGS: Multiple stable hypodensitie s in the liver correspond to cysts seen on prior CT. No biliary dilatation. The gallbladder surgically absent. The pancreas, spleen, and adrenal glands are unremarkable. Stab le 2.5 cm cyst in the right kidney. Multiple stable bilateral parapelvic cysts. 2 mm nonobstructing calculus in the midportion of the left kidney. No hydronephrosis. The visualized portions of the ureters and bladder are unremarkable. No bowel dilatation or obstr uction. Diverticula are seen in the descending and sigmoid colon. No evidence of bowel wall thickening or pericolonic inflammatory stranding. Normal appendix. No free fluid o r free air. The uterus and a dnexa are grossly unremarkable.Small bilateral inguinal hernias containing fat. Tiny umbilical hernia containing fat. Degenerative changes in the lumbar spine. Stable grade 1 anterolisthesis of L5 on S1. The S1 vertebral body transitional. IMPRESSION: 2 mm nonobstructing left renal calculus. Diverticulosis without evidence of diverticuliti s. Brain wo contrast CT CLINICAL HISTORY:Syncope. 09/16/2015 M [facility] [place] AGE: 59 years GENDER: Female TECHNIQUE: Axial scans of th e brain without contrast including multiplanar computer-generated reformations. Total Dose Length Product: 691.12 mGy-cm There is no CT evidence of a cute intracranial hemorrhage, mass effect or midline shift. There is preservation of the mcintosh-white matter d ifferentiation.. . There is no extra-axial fluid collection. Ventricles, subarachnoid spaces and sulci are ap propriate for patient age. Orbits are symmetric. The paranasal sinuses and mastoid air cells wel l pneumatized. IMPRESSION: No acute intracranial findings. Chest 1view DX CLINICAL HISTORY: Syncope 09/16/2015 [place] AGE: 59 years GENDER: Female TECHNIQUE: Single AP, portable chest radiograph, 1 view. COMPARISON: None FINDINGS: The cardiomediastinal silhouette is within bhavya l limits. No focal airspace or interst itial opacities are seen. No pleural effusions. No pneumothorax. No significant osseous abnormalities are identif ied. IMPRESSION: No acute cardiopulmonary disease. Abdomen/Pelvis w IV CT OF ABDOMEN AND PELVIS WITH CONTRAST, 02/23/2015 02/23/2015 [facility] [place] contrast CT HISTORY: Left lower quadrant abdominal pain. TECHNIQUE: Sequential 5 mm axial postcontrast images were obtained from the hemidiaphragms through the symphysis pubis. Delayed axial images and sagittal and coronal reconstructions were performed. DLP: 1719 mGy-cm. FINDINGS: Small pleural tags at the loreto ng bases. No evidence of noncalcified lung nodules or pleural effusions. Multiple small benign hepati c cysts without evidence of solid liver mass or bile duct dilatation. Absent gallbladder. Normal pancreas, spleen, adrenal glands, and inferior vena cava. Abdominal aortic ca lcifications without aneurys m. 2.5 cm benign cyst in right kidney. Multiple bilateral benign peripelvic cysts noted. No evidence of solid renal mass or hydronephrosis involving either kidney. No evidence of large or small bowel obstruction or free air. Mid descending colon diverti culosis with no CT evidence of acute diverticulitis . No evidence of torsion of appendix epiploica. Normal appendix. Mild degenerative changes in the lumbar spine. Mild anterolisthesis of L5 on S1 related to degenerative changes involving facet joints. CONCLUSION: Mild descending colon divert iculosis with no CT evidence of acute diverticulitis. Gallbladder scan HIDA w Gallbladder HIDA scan with ejection fraction. [facility]ORY: Abdominal pain. Following the intravenous ad ministration of 5.3 mCi of technetium 99 M Choletec, scans of the right upper quadrant in the anterior projection were obtained beginning 5 minutes post injection of isotope and extending through 60 minutes. IMPRESSION: 1. Uniform distribution of a ctivity throughout the liver with no evidence of hepatomegaly or space occupying disease. 2. Prompt excretion of trace r into the intrahepatic and extrahepatic biliary system with uptake of activity in proximal small bowel by 30 minutes. 3. Gallbladder uptake identi fied beginning 5 minutes post injection of isotope and extending through 60 minutes. CONCLUSION: 1. Radionuclide findings com patible with a patent cystic duct and no evidence of biliary obstruction. Following the intravenous in fusion of 2 cc of Kinevac, gallbladder ejection fraction calculated to be 28.7% which is below the lower range of normal and could reflect biliary dyskinesia. The patient complained of ab dominal pain with Kinevac infusion which was described as similar to the pain the patient was experiencing prior to the exam. Consultation Notes No Data Provided for This Section Discharge Summaries No Data Provided for This Section History and Physicals No Data Provided for This Section Vital Signs Vital Sign Value Date Comments Source Systolic (mm Hg) 142 12/31/2018 [facility] Diastolic (mm Hg) 79 12/31/2018 [facility] Heart Rate 75 12/31/2018 [facility] Temperature Oral (F) 98.9 F 12/31/2018 [facility] Height 160.02 cm 12/31/2018 [facility] Weight 85 12/31/2018 [facility] BMI Calculated 33.19 12/31/2018 [facility] BMI Calculated 32.2 09/22/2018 [facility] Height 160.02 cm 09/22/2018 [facility] Weight 82.443 09/22/2018 [facility] Systolic (mm Hg) 163 09/22/2018 [facility] Diastolic (mm Hg) 97 09/22/2018 [facility] Heart Rate 73 09/22/2018 [facility] Temperature Oral (F) 98.3 F 09/22/2018 [facility] Systolic (mm Hg) 144 09/03/2018 [facility] Diastolic (mm Hg) 77 09/03/2018 [facility] Temperature Oral (F) 98.7 F 09/03/2018 [facility] Heart Rate 63 09/03/2018 [facility] Height 160.02 cm 09/03/2018 [facility] BMI Calculated 31.29 09/03/2018 [facility] Weight 80.114 09/03/2018 [facility] Height 160.02 cm 07/28/2018 [facility] Weight 79.545 07/28/2018 [facility] BMI Calculated 31.06 07/28/2018 [facility] Respitory Rate 16 07/28/2018 [facility] Heart Rate 68 07/28/2018 [facility] [place] Systolic (mm Hg) 129 07/28/2018 [facility] ([facility] Hg) 84 07/28/2018 [facility] Weight 90 06/14/2018 [facility] BMI Calculated 35.15 06/14/2018 [facility] Height 160.02 cm 06/14/2018 [facility] Systolic (mm Hg) 128 06/14/2018 [facility] Diastolic (mm Hg) 78 06/14/2018 [facility] Temperature Oral (F) 97.7 F 06/14/2018 [facility] Heart Rate 101 06/14/2018 [facility] Temperature Oral (F) 99 F 01/05/2018 [facility] Heart Rate 89 01/05/2018 [facility] Height 160.02 cm 01/05/2018 [facility] Weight 90.455 01/05/2018 [facility] BMI Calculated 35.33 01/05/2018 [facility] Systolic (mm Hg) 134 01/05/2018 [facility] Diastolic (mm Hg) 81 01/05/2018 [facility] BMI Calculated 36.57 10/06/2017 [facility] Weight 93.636 10/06/2017 [facility] Height 160.02 cm 10/06/2017 [facility] Heart Rate 82 10/06/2017 [facility] Temperature Oral (F) 98.4 F 10/06/2017 [facility] Systolic (mm Hg) 115 10/06/2017 [facility] Diastolic (mm Hg) 75 10/06/2017 [facility] Temperature Oral (F) 98.4 F 07/02/2017 [facility] BMI Calculated 37.63 07/02/2017 [facility] Height 160.02 cm 07/02/2017 [facility] Systolic (mm Hg) 129 07/02/2017 [facility] Diastolic (mm Hg) 68 07/02/2017 [facility] Weight 96.364 07/02/2017 [facility] Systolic (mm Hg) 140 06/09/2017 [facility] Diastolic (mm Hg) 84 06/09/2017 [facility] Height 160.02 cm 06/09/2017 [facility] Weight 94.602 06/09/2017 [facility] BMI Calculated 36.94 06/09/2017 [facility] Heart Rate 79 06/09/2017 [facility] Temperature Oral (F) 98.3 F 06/09/2017 [facility] BMI Calculated 36.92 03/31/2017 [facility] Weight 94.545 03/31/2017 [facility] Height 160.02 cm 03/31/2017 [facility] Temperature Oral (F) 99.0 F 03/31/2017 [facility] Systolic (mm Hg) 127 03/31/2017 [facility] Diastolic (mm Hg) 84 03/31/2017 [facility] Weight 95.909 02/23/2017 [facility] BMI Calculated 37.46 02/23/2017 [facility] Height 160.02 cm 02/23/2017 [facility] Systolic (mm Hg) 126 02/23/2017 [facility] Diastolic (mm Hg) 82 02/23/2017 [facility] Temperature Oral (F) 97.9 F 02/23/2017 [facility] Systolic (mm Hg) 143 03/12/2016 [facility] Diastolic (mm Hg) 94 03/12/2016 [facility] Heart Rate 72 03/12/2016 [facility] Weight 90.909 03/12/2016 [facility] BMI Calculated 35.5 03/12/[address] [facility] Height 160.02 cm 03/12/2016 [facility] Respitory Rate 16 03/12/2016 [facility] Respitory Rate 18 09/16/2015 [place] Heart Rate 78 09/16/2015 [place] Systolic (mm Hg) 133 09/16/2015 [place] Diastolic (mm Hg) 75 09/16/2015 [place] BMI Calculated 33.51 09/16/2015 [place] Weight 85.818 09/16/2015 [place] Temperature Oral (F) 98.0 F 09/16/2015 [place] Heart Rate 81 09/16/2015 [place] Respitory Rate 18 09/16/2015 [place] Height 160.02 cm 09/16/2015 [place] Systolic (mm Hg) 155 09/16/2015 [place] Diastolic (mm Hg) 95 09/16/2015 [place] BMI Calculated 31.86 03/14/2015 [facility] Weight 81.591 03/14/2015 [facility] Height 160.02 cm 03/14/2015 [facility] Heart Rate 81 03/14/2015 [facility] Temperature Oral (F) 97.9 F 03/14/2015 [facility] Systolic (mm Hg) 148 03/14/2015 [facility] Diastolic (mm Hg) 88 03/14/2015 [facility] Height 63 08/23/2014 [facility] Temperature Oral (F) 97.9 F 08/23/2014 [facility] Systolic (mm Hg) 152 08/23/2014 [facility] Diastolic (mm Hg) 82 08/23/2014 [facility] Heart Rate 87 08/23/2014 [facility] Weight 209 08/23/2014 [facility] Height 63 08/22/2014 [facility] Weight 209 08/22/2014 [facility] Temperature Oral (F) 96.2 F 08/22/2014 [facility] Systolic (mm Hg) 134 08/22/2014 [facility] Diastolic (mm Hg) 65 08/22/2014 [facility] Heart Rate 71 08/22/2014 [facility] Height 63 08/08/2014 [facility] Weight 209 08/08/2014 [facility] Temperature Oral (F) 97.5 F 08/08/2014 [facility] Systolic (mm Hg) 154 08/08/2014 [facility] Diastolic (mm Hg) 70 08/08/2014 [facility] Heart Rate 51 08/08/2014 [facility] Weight 203 04/06/2014 [facility] Temperature Oral (F) 96.9 F 04/06/2014 [facility] Systolic (mm Hg) 156 04/06/2014 [facility] Diastolic (mm Hg) 72 04/06/2014 [facility] Heart Rate 73 04/06/2014 [facility] Height 63 02/13/2014 [facility] Weight 208 02/13/2014 [facility] Temperature Oral (F) 98.4 F 02/13/2014 [facility] Heart Rate 68 02/13/2014 [facility] Systolic (mm Hg) 143 02/13/2014 [facility] Diastolic (mm Hg) 104 02/13/2014 [facility] Systolic (mm Hg) 139 11/30/2013 [place] Diastolic (mm Hg) 91 11/30/2013 [place] Respitory Rate 16 11/30/2013 [place] Heart Rate 89 11/30/2013 [place] Systolic (mm Hg) 147 11/30/2013 [place] Diastolic (mm Hg) 86 11/30/2013 [place] Heart Rate 88 11/30/2013 [place] Respitory Rate 16 11/30/2013 [place] Weight 96.818 11/30/2013 [place] Height 160.02 cm 11/30/2013 [place] BMI Calculated 37.81 11/30/2013 [place] Temperature Oral (F) 98.2 F 11/30/2013 [place] Respitory Rate 18 11/30/2013 [place] Heart Rate 92 11/30/2013 [place] Diastolic (mm Hg) 92 11/30/2013 [place] Systolic (mm Hg) 152 11/30/2013 [place] Height 63 11/21/2013 [facility] Weight 214 11/21/2013 [facility] Systolic (mm Hg) 142 11/21/2013 [facility] Diastolic (mm Hg) 67 11/21/2013 [facility] Heart Rate 83 11/21/2013 [facility] Weight 212 11/07/2013 [facility] Temperature Oral (F) 98.2 F 11/07/2013 [facility] Systolic (mm Hg) 138 11/07/2013 [facility] Diastolic (mm Hg) 86 11/07/2013 [facility] Heart Rate 87 11/07/2013 [facility] Weight 218 10/25/2013 [facility] Temperature Oral (F) 97.9 F 10/25/2013 [facility] Respitory Rate 20 10/25/2013 [facility] Heart Rate 80 10/25/2013 [facility] Systolic (mm Hg) 137 10/25/2013 [facility] Diastolic (mm Hg) 69 10/25/2013 [facility] Weight 215 10/05/2013 [facility] Temperature Oral (F) 97.7 F 10/05/2013 [facility] Heart Rate 91 10/05/2013 [facility] Systolic (mm Hg) 141 10/05/2013 [facility] Diastolic (mm Hg) 84 10/05/2013 [facility] Temperature Oral (F) 98.3 F 09/01/2013 [facility] Weight 220 09/01/2013 [facility] Systolic (mm Hg) 136 09/01/2013 [facility] Diastolic (mm Hg) 78 09/01/2013 [facility] Heart Rate 88 09/01/2013 [facility] Weight 197 12/07/2012 [facility] Temperature Oral (F) 97.4 F 12/07/2012 [facility] Systolic (mm Hg) 141 12/07/2012 [facility] Diastolic (mm Hg) 78 12/07/2012 [facility] Heart Rate 84 12/07/2012 [facility] Systolic (mm Hg) 133 12/03/2012 [facility] Diastolic (mm Hg) 89 12/03/2012 [facility] Heart Rate 90 12/03/2012 [facility] Temperature Oral (F) 98.0 F 12/03/2012 [facility] Weight 199 12/03/2012 [facility] Weight 196 07/29/2012 [facility] Temperature Oral (F) 97.2 F 07/29/2012 [facility] Systolic (mm Hg) 131 07/29/2012 [facility] Diastolic (mm Hg) 62 07/29/2012 [facility] Heart Rate 65 07/29/2012 [facility] Weight 191 04/30/2012 [facility] Systolic (mm Hg) 119 04/30/2012 [facility] Diastolic (mm Hg) 75 04/30/2012 [facility] Heart Rate 63 04/30/2012 [facility] Temperature Oral (F) 96.6 F 04/30/2012 [facility] Height 63 12/08/2011 [facility] Weight 191 12/08/2011 [facility] Temperature Oral (F) 97.5 F 12/08/2011 [facility] Systolic (mm Hg) 124 12/08/2011 [facility] Diastolic (mm Hg) 61 12/08/2011 [facility] Heart Rate 60 12/08/2011 [facility] Encounters Location Location Encounter Encounter Reason Attending ADM DC Stat us Source Details Type Number For Provider Date Date Visit [facility] Report [id number] [facility] 12/03 12/03 [place] 7590 [place] /2012 Medical Duran Garcia [facility] [id number] [facility] 12/07 12/07 [facility] [place] Visit 7040 [place] /2012 Medical Duran Garcia [facility] [id number] [facility] 09/01 09/01 MH [place] Visit 7020 [place] /2013 MD Group Radha Mohamud Jr. [facility] [id number] [facility] 10/05 10/05 MH [place] Visit 1090 [place] /2013 MD Radha Mohamud Jr. [facility] [id number] [facility] 10/25 10/25 MH [place] Visit 8880 [place] /2013 MD Group Radha Mohamud Jr. [facility] [id number] [facility] 11/07 11/07 [place] Visit 2060 [place] /2013 MD Radha Mohamud Jr. [facility] Lab Report [id number] [facility] 11/07 11/07 MH [place] 2260 [place] /2013 MD Radha Mohamud Jr. [facility] [id number] [facility] 11/21 11/21 MH [place] Visit 8980 [place] /2013 MD Group Radha Mohamud Jr. [facility] [place] [place] [id number] Desean Mos[place] 11/30 11/30 M Joseph [facility] [id number] [facility] 12/01 12/01 [place] 2960 [place] /2013 MD Group Radha Mohamud Jr. [facility] Office [id number] [facility] 02/13 02/13 MH [place] Visit 9710 [place] /2013 MD Group Radha Mohamud Jr. [place] [facility] [id number] [facility] 04/06 04/06 MH [place] Visit 8760 [place] /2014 MD Group Radha Mohamud Jr. [facility] [id number] [facility] 08/08 08/08 MH [place] Visit 9590 [place] /2014 MD Group Radha Mohamud Jr. [facility] [id number] [facility] 08/22 08/22 [place] Visit 7820 [place] /2014 MD Group Radha [facility]amud Jr. [facility] [id number] [facility] 08/23 08/23 [place] Visit 3800 [place] /2014 MD Group Radha Mohamud Jr. [facility] [place] [id number] [facility] 08/23 08/23 [place] 3890 [place] /2014 MD Radha Mohamud Jr. Group [place] Outpatient [id number] [facility] 01/30 Activ e [facility] SUSTACHE [facility] Outpt Diag [id number] Sb 02/23 02/24 [facility] [place] [facility] Outpatient [id number] Epifanio 03/14 03/15 [facility] Kam[facility] Bedded [id number] Epifanio 04/30 04/30 [facility] Outpatient Kamron [facility] Outpatient [id number] [facility] 05/17 Activ e [facility] SUSTACHE [place] Outpatient [id number] [facility] 07/09 Activ e [facility] SUSTACHE [place] Outpatient [id number] NADINE LAM 08/22 Acti ve [facility] /2015 [place] Outpatient [id number] [facility] 09/10 [facility] e [facility] [place] [id number] Michelle 09/15 09/16 [place] [facility] Deena /2015 [facility] Outpatient [id number] [facility] 10/17 Activ e [facility] SUSTACHE [place] Outpatient [id number] [facility] 11/18 Activ e [facility] SUSTACHE [place] Outpatient [id number] [facility] 01/20 Activ e [facility] SUSTACHE [place] Outpatient [id number] [facility] 02/12 Activ e [facility] SUSTACHE [facility] Outpatient [id number] Epifanio 03/12 03/13 [facility] Dryden [facility] Outpt Diag [id number] Epifanio 03/25 03/26 [facility] Outpatient Services Kamron [facility] Outpatient [id number] [facility] 04/17 Activ e [facility] SUSTACHE [place] Outpatient [id number] [facility] 05/15 Activ e [facility] SUSTACHE /2016 [place] Outpatient [id number] [facility] 06/03 Activ e [facility] SU[facility]HE [place] Outpatient [id number] [facility] 07/30 Activ e [facility] SUSTACHE /2016 [facility] Outpatient [id number] [facility] 08/29 Activ e [facility] SU[facility]HE /2016 [place] Outpatient [id number] [facility] 11/12 Activ e [facility] SU[facility]HE /2016 [place] Outpatient [id number] [facility] 12/30 Activ e [facility] SU[facility]HE /2016 [place] Outpatient [id number] [facility] 02/23 Activ e [facility] SUSTACHE /2016 [facility] Outpatient [id number] Carlos 02/23 02/24 Primary [place] /2016 [facility] Phone [id number] 03/09 03/11 Primary Message /2016 [facility] Phone [id number] 03/12 03/14 Primary Message /2016 [facility] [place] Outpatient [id number] CARLOS 03/31 Activ e [facility] SUSTACHE /2017 [facility] Outpatient [id number] Carlos 03/31 04/01 Primary [place] /2017 [facility] Phone [id number] 06/05 06/07 Primary Message /2017 [facility] [id number] Zeb 06/06 06/06 Mart Delgado /2017 [facility] Outpatient [id number] CARLOS 06/09 Activ e [facility] SUSTACHE /2017 [facility] Outpatient [id number] Carlos 06/09 06/10 Primary Sustache /2017 [facility] [place] [facility] Phone [phone] 06/15 06/17 Primary Message /2017 [facility] Phone [id number] 06/26 06/28 Primary Message /2017 [facility] [place] Outpatient [id number] CARLOS 06/29 Activ e [facility] SUSTACHE [facility] Ambulatory [id number] Carlos 06/29 06/29 Primary Pre-Reg Sustache /2017 [facility] [place] Outpatient [id number] CARLOS 07/02 Activ e [facility] SUSTACHE [facility] Outpatient [id number] Carlos 07/02 07/03 MH Primary Sustache /2017 [facility] [place] Phone [id number] 07/27 07/29 Primary Message /2017 [facility] [place] [facility] Phone [id number] 07/28 07/30 Primary Message /2017 [facility] [place] Outpatient [id number] CORTNEY 10/06 Active Memorial ALAS Mart [facility] Outpatient [id number] Carlos 10/06 10/07 Primary Sustache /2017 [facility] [place] [facility] Phone [id number] 11/06 11/08 Primary Message /2017 [facility] [place] [facility] Phone [id number] 12/30 01/01 Primary Message /2017 [facility] [place] [facility] Phone [id number] 12/30 01/01 Primary Message /2017 [facility] [place] [facility] Phone [id number] 01/05 01/07 Primary Message /2017 [facility] [place] Outpatient [id number] CORTNEY01/05 [facility] [id number] Carlos 01/05 01/06 Primary Sustache /2017 [facility] [place] [facility] Outpt Diag [id number] Cortney 01/05 01/06 [facility] Outpatient Services [place] /2017 [facility] [place] [facility] Phone [id number] 01/08 01/10 Primary Message /2017 [facility] [place] [facility] Phone [phone] 01/08 01/10 Primary Message /2017 [facility] [place] [facility] Outside [id number] 01/19 01/21 Primary Medical /2017 [facility] [place] Outpatient [id number] CARLOS 06/14 Activ e [facility] SUSTACHE [facility] Outpatient [id number] Carlos 06/14 06/15 MH Primary Sustache /2018 [facility] [place] [facility] Between [id number] 06/16 06/17 Primary Visit /2018 [facility] [place] [facility] Out[facility] [id number] Epifanio 07/28 07/29 [facility] [place] [facility] [place] /2018 [facility] Outpatient [id number] Carlos 09/03 Activ e [facility] S[place]ache /2018 Mart Jr [facility] Outpatient [id number] Carlos 09/03 09/04 MH Primary Sustache /2018 [facility] [place] [facility] Between [id number] 09/06 09/07 Primary Visit /2018 [facility] [place] Outpatient [id number] Carlos 09/22 Activ e [facility] [place] /2018 Mart [facility] Outpatient [id number] Carlos 09/22 09/23 Primary Sustache /2018 [facility] [place] [facility] Between [id number] 09/22 09/23 Primary Visit /2018 [facility] [place] [facility] Between [id number] 09/24 09/25 Primary Visit /2018 [facility] [place] [facility] Between [id number] 09/27 09/28 Primary Visit /2018 [facility] [place] Outpatient [id number] Carlos 12/31 Activ e [facility] S[place] /2018 Mart Jr [facility] Outpatient [id number] Carlos 12/31 01/01 Primary Sustache /2018 [facility] [place] [facility] Between [id number] 01/03 01/04 Primary Visit /2018 [facility] [place] Outpatient [id number] Carlos 10/06 Activ e [facility] [place] /2019 [facility] Outpatient [id number] Carlos 10/06 Activ e [facility] S[place] /2019 Mart [facility] Ambulatory [id number] Carlos 10/06 10/06 Primary Pre-Reg [place] /2019 [facility] [place] [facility] Between [id number] 10/06 10/07 Primary Visit /2019 [facility] [place] Procedures Procedure Code Date Perfomer Comments Source Removal of [id number] 03/30/2013 Medical gallbladder Group,[facility], [place] JESSICA [place],PAULETTE [place], [place] colonoscopy [id number] 03/30/2008 Normal [facility] vaginal Pap smear [id number] 03/30/2008 Normal Medi emerson results Group mammogram [id number] 03/30/1999 [facility] Bilateral tubal [id number] Medica l ligation Group,[facility], [facility] [place], [facility] [place], [place] Carpal tunnel [id number] Medical release Group,[facility], [facility] [place], [facility] [place], [place] Mammogram [id number] Medical Group,[facility], [facility] [place] Assessment and Plan No Data Provided for This Section Plan of Care No Data Provided for This Section Social History Social History Date Source Social History TypeResponse 07/02/2017 JESSICA Arvinda r Stephanie Substance Abuse 1 Alcohol 2 Smoking Status Never smoker; Ready to change: No; Elizabeth rns about tobacco use in household: No; Exposure to Tobacco Smoke None; Cigarette Smoking Last 365 Days No; Reg Smoking Cessation Counseling No entered on: 06/14/18 [id number] Social History TypeResponse 07/02/2017 [facility] Substance Abuse 1 Alcohol 2 Smoking Status Never smoker; Ready to change: No; Elizabeth rns about tobacco use in household: No; Exposure to Tobacco Smoke None; Cigarette Smoking Last 365 Days No; Reg Smoking Cessation Counseling No entered on: 07/28/18 [id number] Social History TypeResponse 07/02/2017 [facility] Substance Abuse 1 Alcohol 2 Smoking Status Never smoker; Ready to change: No; Elizabeth rns about tobacco use in household: No; Exposure to Tobacco Smoke None; Cigarette Smoking Last 365 Days No; Reg Smoking Cessation Counseling No entered on: 01/05/18 [id number] Social History TypeResponse 07/02/2017 [facility] Alcohol 1 Substance Abuse 2 Smoking Status Never smoker; Ready to change: No; Elizabeth rns about tobacco use in household: No; Exposure to Tobacco Smoke None; Cigarette Smoking Last 365 Days No; Reg Smoking Cessation Counseling No entered on: 12/31/18 [id number] Social History TypeResponse 03/12/2016 JESSICA kang Smoking Status Never smoker; Ready to change: No; Elizabeth rns about tobacco use in household: No; Exposure to Tobacco Smoke None; Cigarette Smoking Last 365 Days No; Reg Smoking Cessation Counseling No Social History TypeResponse 09/16/2015 Anna Fletcher d Smoking Status Never smoker; Ready to change: No; Elizabeth rns about tobacco use in household: No; Exposure to Tobacco Smoke None; Cigarette Smoking Last 365 Days No; Reg Smoking Cessation Counseling No Family History No Data Provided for This Section Advance Directives No Data Provided for This Section Functional Status No Data Provided for This Section
--- OUTSIDE RECORDS SUMMARY | 2019-12-12 16:34 | XMS REPORT | Summary of Care ---
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 Gastritis3 08/22/14 Active Hypoglycemia(Confirmed) Resolved Multiple joint pain4 08/22/14 Active Muscle pain5 08/22/14 Active Nausea6 08/22/14 Active Numbness7 08/08/14 Active Obesity(Confirmed) Active Reactive hypoglycemia8 08/08/14 Active Screening mammography9 08/23/14 Active Awtwwmurl19, 11 12/08/11 Resolved Vitamin D 08/23/14 Active 1Data migrated from [employer] on 10/04/14.2Data migrated from [employer] on 10/04/14.3Data migrated from [employer] on 10/04/14.4Data migrated from [employer] on 10/04/14.5Data migrated from [employer] on 10/04/14.6Data migrated from [employer] on 10/04/14.7Data migrated from [employer] on 10/04/14.8Data migrated from [employer] on 10/04/14.9Data migrated from [employer] on 10/04/14.10Data migrated from [employer] on 10/14/14.11Data migrated from [employer] on 10/13/14.12Data migrated from [employer] on 10/04/14. Allergies, Adverse Reactions, Alerts Substance Reaction Severity Status ciprofloxacin Active Levaquin Active Food Iodine Active NSAIDs Active Medications No data available for this section Results No data available for this section Immunizations No data available for this section Procedures Procedure Date Related Diagnosis Body Site Status Removal of gallbladder 03/30/13 Compl eted Bilateral tubal ligation Com pleted Carpal tunnel release Comple fabi Mammogram Completed Social History Social History Type Response Alcohol 1 Substance Abuse 2 Smoking Status Never smoker; Ready to miguel e: No; Concerns about tobacco use in household: No; Exposure to Tobacco Smoke None; Cigarette Smoking Last 365 Days No; Reg Smoking Cessation Counseling No entered on: 12/31/18 [id number] Assessment and Plan No data available for this section
--- OUTSIDE RECORDS SUMMARY | 2019-12-12 16:34 | XMS REPORT | Summary of Care ---
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 Allergies, Adverse Reactions, Alerts Substance [...] Smoking Cessation Counseling No entered on: 12/31/18 [id number] Assessment and Plan No data available for this section
--- OUTSIDE RECORDS SUMMARY | 2019-12-12 16:35 | XMS REPORT | Continuity of Care Document ---
:1955 Author Organization [facility] t Address [address] [place] [address] Care Team Providers Name Role Phone Silvio HERNANDEZ Primary Care Physician Silvio Echevarria Attending Clinician Anna Vazquez MD Attending Clinician Ron Lundy Attending Clinician Bishop Attending Clinician Nelson Delgado Attending Clinician Paulina Shaffer Attending Clinician Rachel Jesus Attending Clinician Eveline Attending Clinician Payers Payer Name Policy Type Policy Number Effective Date Expiration Date S giselle AETNAAETNA xxxxxxxxxx 2000 [place] HMO,POS,EPO, 00:00:00 Sabianist JAVON/ECxxxxxxxxxx-PresentH MO Problems Condition Condition Condition Status Onset Resolution Last Treating Co mments Source Name Details Category Date Date Treatment Clinician Date F/U AND Diagnosis Active 2018-07-28 Me stafford 2ND - 14:19:00 l OPINION F/U AND 00:00: José Miguel n 2ND 00 OPINION Active 07/20/2018 [facility] KNEE PAIN Diagnosis Active 2017-06-06 Memoria 06-05 08:32:00 l KNEE 00:00: [place] PAIN 00 Active 06/05/2017 [facility] BDDC-NAUSE Diagnosis Active 2016-12-07 Memoria A, EARLY 10-30 15:15:00 l SATIETY 00:00: [place] BDDC-NAUSE 00 A, EARLY SATIETY Active 10/30/2016 [facility] STOMACH Diagnosis Active 2015-032016-03-17 Me moria PAIN 04-27 13:47:00 l STOMACH 00:00: [place] PAIN 00 Active 02/26/2016 [facility] WEAKNES Diagnosis Active 2015-09-16 Me moria AND BLURY 09-15 17:12:00 l VISION WEAKNES 00:00: [place] AND BLURY 00 VISION Active 09/16/2015 [place] BDDC - NEW Diagnosis Active 2014-032015-03-14 Memoria PT CONSULT - 14:16:00 l BDDC - 00:00: [place] NEW PT 00 CONSULT Active 03/14/2015 [facility] BDDC/ Diagnosis Active 2014-032015-04-30 Mem oria Z12.11 2- 11:17:00 l SCREENING BDDC/ 00:00: José Miguel samaniego FOR Z12.11 00 MALIGNANT SCREENING ALICIA FOR MALIGNANT ALICIA Active 03/14/2015 [facility] PAIN IN Diagnosis Active 2014-032015-04-21 Me moria THE 05-06 15:39:00 l ABDOMEN; PAIN IN 00:00: Jada nn UPPER AND THE 00 LOWER STO ABDOMEN; UPPER AND LOWER STO Active 03/05/2015 [facility] Screening Problem Active 2019-10-10 Mo rivera mammograph 08-23 21:44:33 l y 00:00: [place] (procedure Screening 00 ) mammograph y (procedure ) Active 08/23/2014 Problem 10/10/2019 Data migrated from erento on 10/04/14. Medical [facility],Ryan Durham, Ryan Ellis [place] Vitamin D Problem Active 2019-10-10 Mo moria deficiency 08-23 21:44:33 l (disorder) Vitamin 00:00: Her sellers D 00 deficiency (disorder) Active 08/23/2014 Problem 10/10/2019 Data migrated from erento on 10/04/14. Medical Group,[facility], Ryan Sparks [place], JESSICA Cody,M H [place] VITAMIN D Condition Active 2014-08-23 Memoria DEFICIENCY 08-23 16:24:00 l VITAMIN 00:00: [place] D 00 DEFICIENCY Active 08/23/2014 Condition 5 [facility] DIARRHEA Condition Active 2014-08-23 M emoria 08-23 16:24:00 l DIARRHEA 00:00: José Miguel n 00 Active 08/23/2014 Condition 5 [facility] MAMMOGRAM Condition Active 2014-08-23 Memoria YEARLY 08-23 16:24:00 l SCREENING 00:00: [place] MAMMOGRAM 00 YEARLY SCREENING Active 08/23/2014 Condition 5 [facility] Gastritis Problem Active 2019-10-10 Me moria (disorder) 08-22 21:44:33 l 00:00: [place] Gastritis 00 (disorder) Active 08/22/2014 Problem 10/10/2019 Data migrated from erento on 10/04/14. [facility], [place],M H OPID [place], JESSICA Cody,M H [place] Multiple Problem Active 2019-10-10 Mem oria joint pain 08-22 21:44:33 l (finding) Multiple 00:00: Her sellers joint pain 00 (finding) Active 08/22/2014 Problem 10/10/2019 Data migrated from erento on 10/04/14. [facility], [place],M H OPID [place], JESSICA Cody,M H [place] Muscle Problem Active 2019-10-10 Memor ia pain 08-22 21:44:33 l (finding) Muscle 00:00: Jada nn pain 00 (finding) Active 08/22/2014 Problem 10/10/2019 Data migrated from erento on 10/04/14. [facility], [place],M H OPID [place], JESSICA Cody,M H [place] Nausea Problem Active 2019-10-10 Memor ia (finding) 08-22 21:44:33 l Nausea 00:00: [place] (finding) 00 Active 08/22/2014 Problem 10/10/2019 Data migrated from [email or web address] on 10/04/14. Medical Group,[facility], [place],M H OPID [place], JESSICA Cody,M H [place] MYALGIA Condition Active 2014-08-23 Me moria 08-22 16:24:00 l MYALGIA 00:00: [place] 00 Active 08/22/2014 [facility] PAIN IN Condition Active 2014-08-23 Me moria JOINT, 08-22 16:24:00 l MULTIPLE PAIN IN 00:00: Jada nn SITES JOINT, 00 MULTIPLE SITES Active 08/22/2014 [facility] GASTRITIS Condition Active 2014-08-23 Memoria 08-22 16:24:00 l 00:00: [place] GASTRITIS 00 Active 08/22/2014 [facility] Enterobias Problem Active 2019-10-10 M emoria is 08-08 21:44:33 l (disorder) 00:00: José Miguel n Enterobias 00 is (disorder) Active 08/08/2014 Problem 10/10/2019 Data migrated from erento on 10/04/14. [facility], [place],M H OPID [place], JESSICA Cody,M H [place] Numbness Problem Active 2019-10-10 Mem oria (finding) 08-08 21:44:33 l Numbness 00:00: José Mgiuel n (finding) 00 Active 08/08/2014 Problem 10/10/2019 Data migrated from [email or web address] on 10/04/14. [facility], [place],M H OPID [place], JESSICA Cody,M H [place] Reactive Problem Active 2019-10-10 Mem oria hypoglycem 08-08 21:44:33 l ia Reactive 00:00: José Miguel n (disorder) hypoglycem 00 ia (disorder) Active 08/08/2014 Problem 10/10/2019 Data migrated from erento on 10/04/14. [facility], [place],M H OPID [place], JESSICA Cody,M H [place] HYPOGLYCEM Condition Active 2014-08-23 Memoria IA, 5- 16:24:00 l REACTIVE 00:00: [place] HYPOGLYCEM 00 IA, REACTIVE Active 08/08/2014 [facility] ROUTINE Condition Active 2014-08-23 Mo moria GENERAL 08-08 16:24:00 l MEDICAL ROUTINE 00:00: José Miguel n EXAMINATIO GENERAL 00 N AT A MEDICAL HEALTH EXAMINATIO CARE N AT A FACILITY HEALTH CARE FACILITY Active 08/08/2014 Condition 5 [facility] NUMBNESS Condition Active 2014-08-23 M emoria 08-08 16:24:00 l NUMBNESS 00:00: José Miguel n 00 Active 08/08/2014 Condition [facility] PINWORMS Condition Active 2014-08-23 emoria 08-08 16:24:00 l PINWORMS 00:00: José Miguel n 00 Active 08/08/2014 [facility] BACK PAIN, Condition Active 2013-032014-08-23 Memoria LUMBAR, - 16:24:00 l WITH BACK 00:00: [place] RADICULOPA PAIN, 00 THY LUMBAR, WITH RADICULOPA THY Active 02/13/2014 [facility] CERVICAL Condition Active 2013-032014-08-23 emoria RADICULOPA - 16:24:00 l THY CERVICAL 00:00: José Miguel n RADICULOPA 00 THY Active 02/13/2014 [facility] HIP PAIN, Condition Active 2013-032014-08-23 Memoria BILATERAL 04-15 16:24:00 l HIP 00:00: [place] PAIN, 00 BILATERAL Active 02/13/2014 Condition [facility] NAUSEA Diagnosis Active 2013-11-30 Mem oria 11-30 13:51:00 l NAUSEA 00:00: [place] 00 Active 11/30/2013 [place] ABDOMINAL Condition Active 2013-11-07 Memoria PAIN, LEFT 8-11 14:05:00 l UPPER 00:00: [place] QUADRANT ABDOMINAL 00 PAIN, LEFT UPPER QUADRANT Active 11/07/2013 [facility] ACID Condition Active 2014-08-23 Mem oria REFLUX 10-05 16:24:00 l DISEASE ACID 00:00: [place] REFLUX 00 DISEASE Active 10/05/2013 [facility] MUSCLE Condition Active 2013-10-05 Mem oria STRAIN 10-05 14:17:34 l MUSCLE 00:00: [place] STRAIN 00 Active 10/05/2013 Condition 4 [facility] ROTATOR Condition Active 2014-08-23 Mo moria CUFF 10-05 16:24:00 l (CAPSULE) ROTATOR 00:00: Herm rut SPRAIN CUFF 00 (CAPSULE) SPRAIN Active 10/05/2013 Condition 5 [facility] OBESITY Condition Active 2014-08-23 Mo moria 6- 16:24:00 l OBESITY 00:00: [place] 00 Active 09/01/2013 [facility] LONG-TERM Condition Active 2014-08-23 Memoria (CURRENT) 2-17 16:24:00 l USE OF 00:00: [place] OTHER LONG-TERM 00 MEDICATION (CURRENT) S USE OF OTHER MEDICATION S Active 05/16/2013 [facility] FATIGUE Condition Active 2014-08-23 Mo moria 2-01 16:24:00 l FATIGUE 00:00: [place] 00 Active 04/30/2012 Condition 5 [facility] FLAT FOOT Condition Active 2014-08-23 Memoria 2-01 16:24:00 l FLAT 00:00: [place] FOOT 00 Active 04/30/2012 [facility] HAIR LOSS Condition Active 2014-08-23 Memoria 2-01 16:24:00 l HAIR 00:00: [place] LOSS 00 Active 04/30/2012 Condition 5 [facility] BACK PAIN Condition Active 2014-08-23 Memoria 9-10 16:24:00 l BACK 00:00: [place] PAIN 00 Active 12/08/2011 [facility] DEFICIENCY Condition Active 2014-08-23 Memoria , VITAMIN 9-10 16:24:00 l D NOS 00:00: [place] DEFICIENCY 00 , VITAMIN D NOS Active 12/08/2011 [facility] HYPOTHYROI Condition Active 2014-08-23 Memoria DISM -10 16:24:00 l 00:00: [place] HYPOTHYROI 00 DISM Active 12/08/2011 Condition 5 [facility] HEADACHE Condition Inactiv 2014-08-23 Memoria e 16:24:00 l HEADACHE José Miguel n Inactive Condition 08/23/2014 [facility] Hypoglycem Problem Resolve 2019-10-10 Memoria ia d 21:44:33 l (disorder) José Miguel n Hypoglycem ia (disorder) Resolved Problem 10/10/2019 [facility], [place],M H OPID [place], JESSICA Cody,M H [place] Autoimmune Problem Active 2019-10-10 M emoria disease 21:44:33 l (disorder) José Miguel n Autoimmune disease (disorder) Active Problem 10/10/2019 [facility] Obesity Problem Active 2019-10-10 Marvel fauzia (disorder) 21:44:33 l Obesity [place] (disorder) Active Problem 10/10/2019 [facility], [place],M H OPID [place], JESSICA Cody,M H [place] ASTHMA Condition Active 2014-08-23 Mem oria 16:24:00 l ASTHMA [place] Active Condition 08/23/2014 [facility] HYPERCHOLE Condition Active 2014-08-23 Memoria STEROLEMIA 16:24:00 l [place] HYPERCHOLE STEROLEMIA Active Condition 08/23/2014 [facility] FAMILY Condition Active 2014-08-23 Mem oria HISTORY OF 16:24:00 l ASTHMA FAMILY [place] HISTORY OF ASTHMA Active Condition 08/23/2014 [facility] FH LUNG Condition Active 2014-08-23 Me moria CANCER 16:24:00 l FH LUNG [place] CANCER Active Condition 08/23/2014 [facility] FH Condition Active 2014-08-23 Mem oria DEPRESSION 16:24:00 l FH [place] DEPRESSION Active Condition 08/23/2014 [facility] FH Condition Active 2014-08-23 Mem oria DIABETES - 16:24:00 l DM FH [place] DIABETES - DM Active Condition 08/23/2014 [facility] FH HEART Condition Active 2014-08-23 M emoria DISEASE 16:24:00 l FH HEART José Miguel n DISEASE Active Condition 08/23/2014 [facility] Acute Problem 2017-032018-07-25 2018-07-25 M emoria sinusitis, 0-16 14:53:54 14:53:54 l unspecifie Acute 04:40: Jada nn d sinusitis, 38 unspecifie d 01/12/2018 07/25/2018 OPID [place] Discharge Problem 2015-09-19 2015-09-19 Memoria Diagnosis: - 00:37:41 00:37:41 l Adult 05:00: Mart hypothyroi Discharge 00 dism Diagnosis: Adult hypothyroi dism 09/16/2015 09/19/2015 [place] Discharge Problem 2013-12-03 2013-12-03 Memoria Diagnosis: - 05:11:13 05:11:13 l Biliary 05:00: [place] colic Discharge 00 Diagnosis: Biliary colic 11/30/2013 12/03/2013 [place] History of Past Illness Condition Condition Condition Status Onset Resolution Last Treating Co mments Source Name Details Category Date Date Treatment Clinician Date Diarrhea Problem Resolve 2019-10-10 2019-10-10 Memoria (finding) d 08-23 21:44:33 21:44:33 l Diarrhea 00:00: José Miguel n (finding) 00 Resolved 08/23/2014 Problem 10/10/2019 Data migrated from [email or web address] on 10/04/14. [facility], Ryan Sparks OPID [place], JESSICA Cody,M [place] Sinusitis Problem Resolve 2019-10-10 2019-10-10 Memoria (disorder) d - 21:44:33 21:44:33 l 00:00: [place] Sinusitis 00 (disorder) Resolved 12/08/2011 Problem 10/10/2019 Data migrated from [email or web address] on 10/14/14.Da ta migrated from [email or web address] on 10/13/14. Medical Group,[facility], Ryan Sparks OPID [place], JESSICA Cody,M H [place] BREAST Condition Inactiv 2013-032014-08-23 2014-08-23 Memoria PAIN, e - 16:24:00 16:24:00 l BILATERAL BREAST 00:00: Jada nn PAIN, 00 BILATERAL Inactive 02/13/2014 [facility] ABDOMINAL Condition Inactiv 2014-08-23 2014-08-23 Memoria PAIN, e 8-11 16:24:00 16:24:00 l RIGHT 00:00: [place] UPPER ABDOMINAL 00 QUADRANT PAIN, RIGHT UPPER QUADRANT Inactive 11/07/2013 [facility] NAUSEA Condition Inactiv 2014-08-23 2014-08-23 Memoria e 7- 16:24:00 16:24:00 l NAUSEA 00:00: Mart 00 Inactive 10/05/2013 Condition 5 [facility] SACROILIIT Condition Inactiv 2014-08-23 2014-08-23 Memoria IS e 6-05 16:24:00 16:24:00 l 00:00: [place] SACROILIIT 00 IS Inactive 09/01/2013 [facility] DRY SOCKET Condition Inactiv 2014-08-23 2014-08-23 Memoria e 12-07 16:24:00 16:24:00 l DRY 00:00: [place] SOCKET 00 Inactive 12/07/2012 Condition [facility] HEARTBURN Condition Inactiv 2014-08-23 2014-08-23 Memoria e 12-03 16:24:00 16:24:00 l 00:00: [place] HEARTBURN 00 Inactive 12/03/2012 Condition 5 [facility] INGROWN Condition Inactiv 2014-08-23 2014-08-23 Memoria NAIL e 2-01 16:24:00 16:24:00 l INGROWN 00:00: [place] NAIL 00 Inactive 04/30/2012 Condition 5 [facility] HYPERGLYCE Condition Inactiv 2014-08-23 2014-08-23 Memoria FENG e 9- 16:24:00 16:24:00 l 00:00: [place] HYPERGLYCE 00 FENG Inactive 12/08/2011 Condition 5 [facility] Allergies, Adverse Reactions, Alerts Allergy Allergy Status Severity Reaction(s) Onset Inactive Treating Comm ents Source Name Type Date Date Clinician ciproflo DA Active SV 2017-03 [facility] xacin 0-01 [place] [facility] levoflox DA Active SV 2017-03 [facility] acin 0-01 [place] [facility] ANTI DA Active U 2017-03 [facility] INFLAMMA 0- [place] TORY PO 00:00: d MEDS 00 [facility] Ciproflo Propensi Active [place] xacin ty to 06-05 [facility] adverse 00:00: st reaction 00 s to drug Sulfa Propensi Active [place] (Sulfona ty to 06-05 [facility] mide adverse 00:00: st Antibiot reaction 00 ics) s to drug Ciprofib Propensi Active [place] rate ty to 1 [facility] adverse 00:00: st reaction 00 s to drug Levoflox Propensi Active [place] acin ty to 1- [facility] adverse 00:00: st reaction 00 s to drug Nsaids Propensi Active [place] (Non-Dragan ty to 04-08 [facility] roidal adverse 00:00: st Anti-Inf reaction 00 lammator s to y Drug) drug ANTI-INF ANTI-INF Active Memori a LAMMATOR LAMMATOR 9-10 l IES IES 00:00: Mart 00 LEVAQUIN LEVAQUIN Active Memori a 9-10 l 00:00: [place] BACTRIM BACTRIM Active Memoria 9-10 l 00:00: Mart 00 ciproflo ciproflo Active Memori a xacin xacin l [place] Levaquin Levaquin Active Memori a l [place] Food Food Active Memoria Iodine Iodine l [place] NSAIDs NSAIDs Active Memoria l [place] Family History Family Member Diagnosis Comments Start Date Stop Date Source Natural father Heart disease [place] [facility] Natural mother Cancer [facility] Social History Social Habit Start Date Stop Date Quantity Comments Source Sex Assigned At [facility] ethodist Alcohol intake 2018-11-18 2018-11-18 [facility]00 non-drinker of alcohol (finding) Social History 2017-07-02 2017-07-02 [facility] amy 19:52:25 19:52:25 Smoking Status Start Date Stop Date Source Social History [facility] Medications Ordered Filled Start Stop Current Ordering Indication Dosage Frequency Signature Comments Components Source Medication Medication Date Date Medication? Clinician (SIG) Name Name nitrofurant 2018-03 Yes 100 mg = 1 Memoria oin 0-04 cap, PO, l macrocrysta 16:18: BID, X 7 He dena ls-monohydr 00 day, # 14 ate 100 mg cap, 0 oral Refill(s), capsule Pharmacy: (Macrobid) [id number] tamsulosin Yes .4mg QD Take 1 [place] on (FLOMAX) 8-22 capsule Methodi 0.4 mg 00:00: (0.[address] capsule 00 total) by mouth daily. fluconazole Yes See Memori a 150 mg oral 6-07 Instructio l tablet 14:07: ns, 1 tab José Miguel n 00 PO ONCE a week, # 2 tab, 0 Refill(s), Pharmacy: [facility] [id number] ciclopirox Yes 1 appl, Marvel fauzia 7.7 MG/ML 6-07 TOP, BID, l Topical 14:07: X 28 day, Jada nn Cream 00 # 90 gm, 0 Refill(s), Pharmacy: [facility] [id number] rifaximin Yes 550 mg = 1 Me moria 550 MG Oral 5-01 tab, PO, l Tablet 21:43: TID, # 42 José Miguel n [XIFAXAN] 00 tab, 0 Refill(s), Pharmacy: [facility] pantoprazol Yes 40 mg, PO, Memoria e 5-01 Daily, # l 18:57: 30 tab, 0 Mart 00 Refill(s) Hyoscyamine Yes 0.125 mg = Memoria Sulfate 3-20 1 tab, PO, l 0.125 MG 21:36: QID, PRN Jada nn Disintegrat 00 Spasm, # ing Tablet 40 tab, 1 [Nulev] Refill(s), Pharmacy: [facility] [id number] Sulfamethox Yes 1 tab, PO, Memoria azole 800 3-20 BID, X 7 l MG / 21:36: day, # 14 [place] Trimethopri 00 tab, 0 m 160 MG Refill(s), Oral Tablet Pharmacy: [Bactrim] [facility] clonazePAM Yes 0.5 mg = 1 M emoria 0.5 mg oral 3-20 tab, PO, l tablet 21:36: Daily, PRN Jada nn 00 Anxiety, # 30 tab, 1 Refill(s) Metronidazo Yes 500 mg = 1 Memoria le 500 MG 3-18 tab, PO, l Oral Tablet 19:12: Q8H, X 10 H ermann [Flagyl] 00 day, # 30 tab, 0 Refill(s), Pharmacy: [place] [id number] Amoxicillin Yes 875 mg = 1 Memoria 875 MG / 3-18 tab, PO, l Clavulanate 19:12: Q12H, X 10 [place] 125 MG Oral 00 day, # 20 Tablet tab, 0 [Augmentin Refill(s), 875-mg] Pharmacy: [facility] [place] [address] Nystatin 2017-03 No 1,000,000 Marvel fauzia [id number] UNT 0-15 unit = 2 l Oral Tablet 13:43: tab, PO, He rmann 00 BID, X 30 day, # 120 tab, 0 Refill(s), Pharmacy: [facility] [place] [address] sucralfate 2017-03 Yes 1 gm = 1 Mem oria 1 g oral 0-11 tab, PO, l tablet 19:23: QID, # 120 Jada nn 00 tab, 0 Refill(s), Pharmacy: [place] [address] benzonatate 2017-03 No 100 mg = 1 Memoria 100 MG Oral 0-09 cap, PO, l Capsule 20:31: TID, PRN José Miguel n [Tessalon 00 as needed Perles] for cough, X 7 day, # 21 cap, 0 Refill(s), Pharmacy: [facility] [place] [id number] Azithromyci 2017-03 No See Memori a n 5 Day 0-09 Instructio l Dose Pack 20:26: ns, Take 2 He rmann 250 mg oral 00 tablets by tablet mouth the first day then 1 tablet by mouth days 2-5., X 5 day, # 6 tab, 0 Refill(s), Pharmacy: [facility] [place] [id number] doxycycline 2018-1 Yes 100 mg = 1 Memoria hyclate 100 0-09 tab, PO, l MG Oral 20:13: BID, 0 [place] Tablet 00 Refill(s) clonazePAM 2017-03 No 0.5 mg = 1 M emoria 0.5 mg oral 0-03 tab, PO, l tablet, 15:29: BID, # 60 Jada nn disintegrat 00 tab, 1 ing Refill(s) valACYclovi No 1 gm = 1 Me moria r 1 g oral 4-05 tab, PO, l tablet 20:17: Q8H, X 10 José Miguel n 37 day, # 30 tab, 1 Refill(s), Pharmacy: [facility] pregabalin Yes 50 mg = 1 Me moria 50 MG Oral 4-05 cap, PO, l Capsule 20:17: TID, # 90 Jada nn [Lyrica] 00 cap, 0 Refill(s) valACYclovi No 1 gm = 1 Me moria r 1 g oral 4-02 tab, PO, l tablet 18:18: Q8H, X 7 [place] 00 day, # 21 tab, 1 Refill(s), Pharmacy: [facility] valACYclovi No 1 gm = 1 Me moria r 1 g oral 3-13 tab, PO, l tablet 19:40: Q8H, X 7 [place] 00 day, # 21 tab, 1 Refill(s), Pharmacy: [facility] polyethylen No 17 gm, PO, Memoria e glycol 3-13 Daily, X l 3350 oral 19:40: 31 day, # Her sellers powder for 00 527 gm, 1 reconstitut Refill(s), ion Pharmacy: [facility] benzonatate Yes 100 mg = 1 Memoria 100 mg oral 1-02 cap, PO, l capsule 20:29: TID, do [place] 00 not crush or chew, X 10 day, # 30 cap, 0 Refill(s), Pharmacy: [facility] Codeine Yes 5 mL, PO, Memor ia Phosphate 2 1-02 Q12H, PRN l MG/ML / 20:29: cough, X José Miguel n Guaifenesin 00 10 day, # 20 MG/ML 100 mL, 0 Oral Refill(s) Solution [Cheratussi n] Fluticasone Yes 1 spray, Me moria propionate -02 NASAL, l 0.05 20:19: BID, # 16 [place] MG/ACTUAT 00 gm, 2 Metered Refill(s), Dose Nasal Pharmacy: [facility] [id number] Azithromyci Yes See Memori a n 5 Day 1- Instructio l Dose Pack 20:19: ns, Take 2 He rmann 250 mg oral 00 tablets by tablet mouth the first day then 1 tablet by mouth days 2-5., X 5 day, # 6 tab, 0 Refill(s), Pharmacy: [facility] [id number] clonazePAM 2016-03 Yes 0.5 mg = 1 M emoria 0.5 mg oral 1-27 tab, PO, l tablet, 20:26: BID, # 60 Jada nn disintegrat 00 tab, 1 ing Refill(s) EnteraGam 2015-03 Yes EnteraGam, Me moria 2-14 See l 21:03: Instructio Mart 00 ns, Samples given in clinic on 03/12/16. Lot [id number] exp date 10/15, # 1 box, Refill(s) 0 pantoprazol 2015-03 Yes 40 mg = 1 M emoria e 40 MG 2-14 tab, PO, l Enteric 19:47: Daily, 0 José Miguel n Coated 00 Refill(s) Tablet [Protonix] ARM[facility] 2015-03 Yes TK 1 T PO [place] THYROID 30 -02 QD. Methodi mg tablet 00:00: st 00 Levothyroxi Yes 25 Memori a ne Sodium 6-19 microgram l 0.025 MG 23:57: = 1 tab, Jada nn Oral Tablet 00 PO, Daily, [Synthroid] # 14 tab, 0 Refill(s) Sodium No 1,000 mL, Memori a Chloride 6-19 1,000 l 0.154 22:33: ml/hr, [place] MEQ/ML 00 Infuse Injectable Over: 1 Solution hr, Route: IV, 1,000, Drug form: INJ, ONCE, Priority: STAT, Dosing Weight 85.818 kg, Start date: 09/16/15 17:33:00 CDT, Duration: 1 doses or times, Stop date: 09/16/15 17:33:00 CDT Saline No Notes: Memoria Flush 0.9% 09-15 (Same as: l 22:33: BD Mart 00 Posiflush) cholestyram 2014-03 Yes 4 gm, PO, M emoria ine 4 g/5 g 2-17 BID, # 210 l oral powder 21:38: gm, 0 Jada nn 00 Refill(s), called to pharmacy Promethazin 2014-03 Yes 12.5 mg = M emoria e 2-17 1 tab, PO, l Hydrochlori 21:38: Q4H, PRN He rmann de 12.5 MG 00 Other-See Oral Tablet Comments, [Phenergan] X 10 day, # 60 tab, 0 Refill(s), called to pharmacy Hyoscyamine 2014-03 No 0.125 mg = Memoria Sulfate 2-17 1 tab, SL, l 0.125 MG 21:16: Q4H, # 30 Herm [address] Sublingual 00 tab, 1 Tablet Refill(s), [Levsin[facility] Ondansetron 2014-03 Yes 8 mg = 1 Me moria 8 MG 2-17 tab, PO, l Disintegrat 21:16: TID, PRN He rmann ing Tablet 00 Nausea and [Zofran] Vomiting, Dissolve tab under tongue, X 7 day, # 21 tab, 1 Refill(s), Pharmacy: [facility] GoLYTELY 2014-03 Yes 240 mL, Memori a oral powder 2-16 PO, l for 21:56: Q10Min, # Mart reconstitut 00 1 ea, 0 ion Refill(s), [facility] Flagyl 2014-03 Yes 500 mg = 1 Memor ia 2-16 tab, PO, l 20:40: BID, # 14 Mart 00 tab, 0 Refill(s) THYROID Yes Memoria COMPOUND 5-27 l 16:24: [place] 00 VITAMIN D Yes 1 capsule Mem oria (ERGOCALCIF 5-27 weekly x l YASH) [id number] 00:00: 12 weeks He rmann UNIT CAPS 00 OMEPRAZOLE Yes Take one Mem oria 20 MG CPDR 5-26 capsule by l 00:00: mouth Mart 00 daily ONDANSETRON Yes 1 tablet Me moria HCL 4 MG 5-26 every 8 l TABS 00:00: hours as Mart 00 needed for nausea/vom iting QSYMIA Yes 1 po qd Memoria 3.75-23 MG 5-12 l [id number] 00:00: [place] CYCLOBENZAP No 1/2-1 po Me moria RINE HCL 10 1-08 TID as l MG TABS 00:00: needed for Herm [place] 00 spasms PROMETHAZIN 2013-03 No 1 SUPP VT M emoria E HCL 25 MG 2-13 Q 4 TO 6 l SUPP 00:00: HRS PRN Mart 00 N/V. TRAMADOL 2013-03 Yes 1 tablet Memor ia HCL 50 MG 1-17 every 12 l TABS 00:00: hours as Mart 00 needed for pain GABAPENTIN 2013-03 No 1 capsule Me moria 100 MG CAPS 1-17 three l 00:00: times a [place] 00 day TRAMADOL 2013-03 No 1 tablet Memor ia HCL 50 MG 1-17 every 12 l TABS 00:00: hours as Mart 00 needed for pain TRAMADOL 2013-03 No 1 tablet Memor ia HCL 50 MG 1-17 every 12 l TABS 00:00: hours as Mart 00 needed for pain Promethazin Yes 12.5 mg = M emoria e 11-30 1 tab, PO, l Hydrochlori 21:44: Q6H, José Miguel n de 12.5 MG 00 Nausea & Oral Tablet Vomiting, [Phenergan] # 20 tab, 0 Refill(s) Acetaminoph Yes 1 tab, PO, Memoria en 325 MG / 11-30 Q6H, Pain, l Hydrocodone 21:44: # 24 tab, H ermann Bitartrate 00 0 5 MG Oral Refill(s) Tablet [Alexander 5/325] Phenergan No Notes: Do Mem oria 11-30 not give l 17:41: IV push. [place] 00 (Same as: Phenergan) Saline No Notes: Memoria Flush 0.9% 11-30 (Same as: l 17:25: BD Posiflush) Carafate Yes 0 Memoria 11-30 Refill(s) l 17:13: Promethazin Yes 0 Memori a e 11-30 Refill(s) l 17:12: SUCRALFATE No 10 mL qid Me moria 1 GM/10ML 8-11 x 2 weeks l SUSP 00:00: PROMETHAZIN No 1 po BID Me moria E HCL 12.5 8-11 prn l MG TABS 00:00: SUCRALFATE No 10 mL qid Me moria 1 GM/10ML 8-11 x 2 weeks l SUSP 00:00: OMEPRAZOLE Yes Take one Mem oria 20 MG CPDR 7-09 capsule by l 00:00: mouth daily MELOXICAM Yes 1 tablet Marvel fauzia 7.5 MG TABS 7-09 daily as l 00:00: needed for pain PROMETHAZIN No 1-2 Memori a E HCL 12.5 7-09 tablets l MG TABS 00:00: every 6 [place] 00 hours as needed for nausea OMEPRAZOLE No Take one Mem oria 20 MG CPDR 7-09 capsule by l 00:00: mouth daily MELOXICAM No 1 tablet Marvel fauzia 7.5 MG TABS 7-09 daily as l 00:00: needed for pain OMEPRAZOLE No Take one Mem oria 20 MG CPDR 7-09 capsule by l 00:00: mouth daily MELOXICAM No 1 tablet Marvel fauzia 7.5 MG TABS 7-09 daily as l 00:00: needed for Mart 00 pain MELOXICAM No 1 tablet Marvel fauzia 7.5 MG TABS 7-09 daily as l 00:00: needed for [place] 00 pain OMEPRAZOLE No Take one Mem oria 20 MG CPDR 7-09 capsule by l 00:00: mouth daily PHENTERMINE No 1 tablet Me moria HCL 37.5 MG 6-05 in the l TABS 00:00: morning Mart 00 PHENTERMINE No 1 tablet Me moria HCL 37.5 MG 6-05 in the l TABS 00:00: morning PHENTERMINE No 1 tablet Me moria HCL 37.5 MG 6-05 in the l TABS 00:00: morning PHENTERMINE No 1 tablet Me moria HCL 37.5 MG 6-05 in the l TABS 00:00: morning CARAFATE 1 No 10 mL QID Me moria GM/10ML 9-10 l SUSP 00:00: CARAFATE 1 No 10 mL QID Me moria GM/10ML 9-10 l SUSP 00:00: ZEGERID 0 No 1 po qd Memoria 40-1680 MG 9-06 l PACK 00:00: ALIGN 0 No one daily Memoria 9-06 l 00:00: ZEGERID 0 No 1 po qd Memoria 40-1680 MG 9-06 l PACK 00:00: GLUMETZA Yes 1 po qd Memori a 500 MG 1-15 l [id number] 00:00: NULEV 0.125 No 1 po q Marvel fauzia MG TBDP 9-18 8-12 prn l 00:00: ZITHROMAX 0 No Take as Memor ia Z-MADHU 250 9-10 directed l MG TABS 00:00: Vital Signs Vital Name Observation Time Observation Value Comments Source Systolic (mm Hg) 2018-12-31 15:55:00 Marvel rial [place] Diastolic (mm Hg) 2018-12-31 15:55:00 Mem orial [place] Heart Rate 2018-12-31 15:55:00 [facility] Temperature Oral (F) 2018-12-31 15:55:00 98.9 F [facility] Height 2018-12-31 15:55:00 160.02 cm [facility] Weight 2018-12-31 15:55:00 [facility] BMI Calculated 2018-12-31 15:55:00 Donal al [place] BMI Calculated 2018-09-22 20:52:00 [facility] [place] Height 2018-09-22 20:52:00 160.02 cm [facility] [place] Weight 2018-09-22 20:52:00 [facility] [place] Systolic (mm Hg) 2018-09-22 20:52:00 Marvel rial [place] Diastolic (mm Hg) 2018-09-22 20:52:00 Mem orial [place] Heart Rate 2018-09-22 20:52:00 [facility] [place] Temperature Oral (F) 2018-09-22 20:52:00 98.3 F [facility] [place] Systolic (mm Hg) 2018-09-03 13:41:00 Marvel rial [place] Diastolic (mm Hg) 2018-09-03 13:41:00 Mem orial [place] Temperature Oral (F) 2018-09-03 13:41:00 98.7 F [facility] [place] Heart Rate 2018-09-03 13:41:00 [facility] [place] Height 2018-09-03 13:41:00 160.02 cm [facility] [place] BMI Calculated 2018-09-03 13:41:00 Mem[facility] al [place] Weight 2018-09-03 13:41:00 [facility] [place] Height 2018-07-28 18:46:00 160.02 cm [facility] [place] Weight 2018-07-28 18:46:00 [facility] [place] BMI Calculated 2018-07-28 18:46:00 [facility] [place] Respitory Rate 2018-07-28 18:46:00 [facility] [place] Heart Rate 2018-07-28 18:46:00 [facility] [place] Systolic (mm Hg) 2018-07-28 18:46:00 [facility] [place] Diastolic (mm Hg) 2018-07-28 18:46:00 Mem o[facility] [place] Weight 2018-06-14 18:55:00 [facility] [place] BMI Calculated 2018-06-14 18:55:00 [facility] al [place] Height 2018-06-14 18:55:00 160.02 cm [facility] [place] Systolic (mm Hg) 2018-06-14 18:55:00 Marvel rial [place] Diastolic (mm Hg) 2018-06-14 18:55:00 Mem orial [place] Temperature Oral (F) 2018-06-14 18:55:00 97.7 F [facility] [place] Heart Rate 2018-06-14 18:55:00 [facility] [place] Temperature Oral (F) 2018-01-05 20:02:00 99 F [facility] [place] Heart Rate 2018-01-05 20:02:00 [facility] [place] Height 2018-01-05 20:02:00 160.02 cm [facility] [place] Weight 2018-01-05 20:02:00 [facility] [place] BMI Calculated 2018-01-05 20:02:00 [facility] al [place] Systolic (mm Hg) 2018-01-05 20:02:00 Marvel rial [place] Diastolic (mm Hg) 2018-01-05 20:02:00 Mem orial [place] BMI Calculated 2017-10-06 19:44:00 Memori al [place] Weight 2017-10-06 19:44:00 [facility] [place] Height 2017-10-06 19:44:00 160.02 cm [facility] [place] Heart Rate 2017-10-06 19:44:00 [facility] [place] Temperature Oral (F) 2017-10-06 19:44:00 98.4 F [facility] [place] Systolic (mm Hg) 2017-10-06 19:44:00 Marvel rial [place] Diastolic (mm Hg) 2017-10-06 19:44:00 Mem orial [place] Temperature Oral (F) 2017-07-02 19:47:00 98.4 F [facility] [place] BMI Calculated 2017-07-02 19:47:00 Mem[facility] al [place] Height 2017-07-02 19:47:00 160.02 cm [facility] [place] Systolic (mm Hg) 2017-07-02 19:47:00 Marvel rial [place] Diastolic (mm Hg) 2017-07-02 19:47:00 Mem orial [place] Weight 2017-07-02 19:47:00 [facility] [place] Systolic (mm Hg) 2017-06-09 18:55:00 Marvel rial [place] Diastolic (mm Hg) 2017-06-09 18:55:00 [facility] orial [place] Height 2017-06-09 18:55:00 160.02 cm [facility] [place] Weight 2017-06-09 18:55:00 [facility] [place] BMI Calculated 2017-06-09 18:55:00 [facility] al [place] Heart Rate 2017-06-09 18:55:00 [facility] [place] Temperature Oral (F) 2017-06-09 18:55:00 98.3 F [facility] [place] BMI Calculated 2017-03-31 19:54:00 [facility] al [place] Weight 2017-03-31 19:54:00 [facility] [place] Height 2017-03-31 19:54:00 160.02 cm [facility] [place] Temperature Oral (F) 2017-03-31 19:54:00 99.0 F [facility] [place] Systolic (mm Hg) 2017-03-31 19:54:00 Marvel rial [place] Diastolic (mm Hg) 2017-03-31 19:54:00 Mem orial [place] Weight 2017-02-23 19:45:00 [facility] [place] BMI Calculated 2017-02-23 19:45:00 [facility] [place] Height 2017-02-23 19:45:00 160.02 cm [facility] [place] Systolic (mm Hg) 2017-02-23 19:45:00 Marvel rial [place] Diastolic (mm Hg) 2017-02-23 19:45:00 Mem orial [place] Temperature Oral (F) 2017-02-23 19:45:00 97.9 F [facility] [place] Systolic (mm Hg) 2016-03-12 19:37:00 Marvel rial [place] Diastolic (mm Hg) 2016-03-12 19:37:00 Mem orial [place] Heart Rate 2016-03-12 19:37:00 [facility] [place] Weight 2016-03-12 19:37:00 [facility] [place] BMI Calculated 2016-03-12 19:37:00 Mem[facility] al [place] Height 2016-03-12 19:37:00 160.02 cm [facility] [place] Respitory Rate 2016-03-12 19:37:00 Memori al [place] Respitory Rate 2015-09-16 23:31:00 Memori al [place] Heart Rate 2015-09-16 23:31:00 [facility] [place] Systolic (mm Hg) 2015-09-16 23:31:00 Marvel rial [place] Diastolic (mm Hg) 2015-09-16 23:31:00 Mem orial [place] BMI Calculated 2015-09-16 21:59:00 Memori al [place] Weight 2015-09-16 21:59:00 [facility] [place] Temperature Oral (F) 2015-09-16 21:59:00 98.0 F [facility] [place] Heart Rate 2015-09-16 21:59:00 [facility] [place] Respitory Rate 2015-09-16 21:59:00 Memori al [place] Height 2015-09-16 21:59:00 160.02 cm [facility] [place] Systolic (mm Hg) 2015-09-16 21:59:00 Marvel rial [place] Diastolic (mm Hg) 2015-09-16 21:59:00 Mem orial [place] BMI Calculated 2015-03-14 20:38:00 Mem[facility] al [place] Weight 2015-03-14 20:38:00 [facility] [place] Height 2015-03-14 20:38:00 160.02 cm [facility] [place] Heart Rate 2015-03-14 20:38:00 [facility] [place] Temperature Oral (F) 2015-03-14 20:38:00 97.9 F [facility] [place] Systolic (mm Hg) 2015-03-14 20:38:00 Marvel rial [place] Diastolic (mm Hg) 2015-03-14 20:38:00 Mem orial [place] Height 2014-08-23 20:15:21 [facility] [place] Temperature Oral (F) 2014-08-23 20:15:21 97.9 F [facility] [place] Systolic (mm Hg) 2014-08-23 20:15:21 Marvel rial [place] Diastolic (mm Hg) 2014-08-23 20:15:21 Mem orial [place] Heart Rate 2014-08-23 20:15:21 [facility] [place] Weight 2014-08-23 20:15:21 [facility] [place] Height 2014-08-22 18:24:51 [facility] [place] Weight 2014-08-22 18:24:51 [facility] [place] Temperature Oral (F) 2014-08-22 18:24:51 96.2 F [facility] [place] Systolic (mm Hg) 2014-08-22 18:24:51 Marvel rial [place] Diastolic (mm Hg) 2014-08-22 18:24:51 Mem orial [place] Heart Rate 2014-08-22 18:24:51 [facility] [place] Height 2014-08-08 13:49:47 [facility] [place] Weight 2014-08-08 13:49:47 [facility] [place] Temperature Oral (F) 2014-08-08 13:49:47 97.5 F [facility] [place] Systolic (mm Hg) 2014-08-08 13:49:47 Marvel rial [place] Diastolic (mm Hg) 2014-08-08 13:49:47 Mem orial [place] Heart Rate 2014-08-08 13:49:47 [facility] [place] Weight 2014-04-06 19:44:51 [facility] [place] Temperature Oral (F) 2014-04-06 19:44:51 96.9 F [facility] [place] Systolic (mm Hg) 2014-04-06 19:44:51 Marvel rial [place] Diastolic (mm Hg) 2014-04-06 19:44:51 Mem orial [place] Heart Rate 2014-04-06 19:44:51 [facility] [place] Height 2014-02-13 17:13:31 [facility] [place] Weight 2014-02-13 17:13:31 [facility] [place] Temperature Oral (F) 2014-02-13 17:13:31 98.4 F [facility] [place] Heart Rate 2014-02-13 17:13:31 [facility] [place] Systolic (mm Hg) 2014-02-13 17:13:31 Marvel rial [place] Diastolic (mm Hg) 2014-02-13 17:13:31 Mem orial [place] Systolic (mm Hg) 2013-11-30 21:22:00 Marvel rial [place] Diastolic (mm Hg) 2013-11-30 21:22:00 Mem orial [place] Respitory Rate 2013-11-30 21:22:00 Memori al [place] Heart Rate 2013-11-30 21:22:00 [facility] [place] Systolic (mm Hg) 2013-11-30 19:00:00 Marvel rial [place] Diastolic (mm Hg) 2013-11-30 19:00:00 Mem orial Mart Heart Rate 2013-11-30 19:00:00 [facility] [place] Respitory Rate 2013-11-30 19:00:00 Memori al [place] Weight 2013-11-30 17:06:00 [facility] [place] Height 2013-11-30 17:06:00 160.02 cm [facility] [place] BMI Calculated 2013-11-30 17:06:00 Memori al [place] Temperature Oral (F) 2013-11-30 17:06:00 98.2 F [facility] [place] Respitory Rate 2013-11-30 17:06:00 Memori al [place] Heart Rate 2013-11-30 17:06:00 [facility] [place] Diastolic (mm Hg) 2013-11-30 17:06:00 Mem orial [place] Systolic (mm Hg) 2013-11-30 17:06:00 Marvel rial [place] Height 2013-11-21 16:45:30 [facility] [place] Weight 2013-11-21 16:45:30 [facility] [place] Systolic (mm Hg) 2013-11-21 16:45:30 Marvel rial [place] Diastolic (mm Hg) 2013-11-21 16:45:30 Mem orial [place] Heart Rate 2013-11-21 16:45:30 [facility] [place] Weight 2013-11-07 16:51:30 [facility] [place] Temperature Oral (F) 2013-11-07 16:51:30 98.2 F [facility] [place] Systolic (mm Hg) 2013-11-07 16:51:30 Marvel rial [place] Diastolic (mm Hg) 2013-11-07 16:51:30 Mem orial [place] Heart Rate 2013-11-07 16:51:30 [facility] [place] Weight 2013-10-25 18:37:21 [facility] [place] Temperature Oral (F) 2013-10-25 18:37:21 97.9 F [facility] [place] Respitory Rate 2013-10-25 18:37:21 Memori al [place] Heart Rate 2013-10-25 18:37:21 [facility] [place] Systolic (mm Hg) 2013-10-25 18:37:21 Marvel rial [place] Diastolic (mm Hg) 2013-10-25 18:37:21 Mem orial [place] Weight 2013-10-05 19:17:34 [facility] [place] Temperature Oral (F) 2013-10-05 19:17:34 97.7 F [facility] [place] Heart Rate 2013-10-05 19:17:34 [facility] [place] Systolic (mm Hg) 2013-10-05 19:17:34 Marvel rial [place] Diastolic (mm Hg) 2013-10-05 19:17:34 Mem orial [place] Temperature Oral (F) 2013-09-01 20:40:23 98.3 F [facility] [place] Weight 2013-09-01 20:40:23 [facility] [place] Systolic (mm Hg) 2013-09-01 20:40:23 Marvel rial [place] Diastolic (mm Hg) 2013-09-01 20:40:23 Mem orial [place] Heart Rate 2013-09-01 20:40:23 [facility] [place] Weight 2012-12-07 15:01:11 [facility] [place] Temperature Oral (F) 2012-12-07 15:01:11 97.4 F [facility] [place] Systolic (mm Hg) 2012-12-07 15:01:11 Marvel rial [place] Diastolic (mm Hg) 2012-12-07 15:01:11 Mem orial [place] Heart Rate 2012-12-07 15:01:11 [facility] [place] Systolic (mm Hg) 2012-12-03 14:46:01 Marvel rial [place] Diastolic (mm Hg) 2012-12-03 14:46:01 Mem orial [place] Heart Rate 2012-12-03 14:46:01 [facility] [place] Temperature Oral (F) 2012-12-03 14:46:01 98.0 F [facility] [place] Weight 2012-12-03 14:46:01 [facility] [place] Weight 2012-07-29 20:41:00 [facility] [place] Temperature Oral (F) 2012-07-29 20:41:00 97.2 F [facility] [place] Systolic (mm Hg) 2012-07-29 20:41:00 Marvel rial [place] Diastolic (mm Hg) 2012-07-29 20:41:00 Mem o[facility] [place] Heart Rate 2012-07-29 20:41:00 [facility] [place] Weight 2012-04-30 15:58:31 [facility] [place] Systolic (mm Hg) 2012-04-30 15:58:31 Marvel rial [place] Diastolic (mm Hg) 2012-04-30 15:58:31 Mem o[facility] [place] Heart Rate 2012-04-30 15:58:31 [facility] Temperature Oral (F) 2012-04-30 15:58:31 96.6 F [facility] Height 2011-12-08 14:51:31 [facility] [place] Weight 2011-12-08 14:51:31 [facility] [place] Temperature Oral (F) 2011-12-08 14:51:31 97.5 F [facility] [place] Systolic (mm Hg) 2011-12-08 14:51:31 Marvel rial [place] Diastolic (mm Hg) 2011-12-08 14:51:31 Mem orial [place] Heart Rate 2011-12-08 14:51:31 [facility] Procedures Procedure Date / Time Performed Performing Clinician [facility] e Removal of gallbladder 2013-03-30 06:00:00 Memor ial [place] colonoscopy 2008-03-30 17:58:11 [facility] vaginal Pap smear results 2008-03-30 15:51:31 Mo morial [place] mammogram 1999-03-30 15:51:31 [facility] Bilateral tubal ligation Memchloe l Mart Carpal tunnel release [facility] ermann Mammogram [facility] Plan of Care Planned Activity Planned Date Details Comments Source Future Scheduled 2019-12-29 INFLUENZA VACCINE [place] [facility] 00:00:00 [code = INFLUENZA VACCINE] Future Scheduled 2006 BREAST CANCER [facility] Test 00:00:00 SCREENING [code = BREAST CANCER SCREENING] Future Scheduled 2006 COLONOSCOPY SCREENING [facility] Test 00:00:00 [code = COLONOSCOPY SCREENING] Future Scheduled 2006 SHINGLES VACCINES [place] [facility] 00:00:00 (#1) [code = SHINGLES VACCINES (#1)] Future Scheduled 1977 Screening for [facility]ist Test 00:00:00 malignant neoplasm of cervix (procedure) [code = 905443710] Encounters Start End Encounter Admission Attending Care Care Encounter Source Date/Time Date/Time Type Type Clinicians Facility Department ID 2019-10-07 2019-10-08 Outpatient [facility] [id number] 15:30:17 15:30:17 68 2019-10-07 2019-10-07 Outpatient Sustache, MG [facility] [id number] 15:30:00 15:30:00 Carlos 27 2019-01-03 2019-01-04 Outpatient [facility] [id number] 17:03:00 17:03:00 67 2018-12-31 2018-12-31 Outpatient Sustache, MHMG MH[facility] [id number] 11:00:00 23:59:59 Carlos 26 2018 2018-09-28 Outpatient [facility] [id number] 09:45:47 09:45:47 65 2018-09-24 2018-09-25 Outpatient [facility] [id number] 12:35:02 12:35:02 64 2018-09-22 2018-09-23 Outpatient [facility] [id number] 16:49:52 16:49:52 63 2018-09-22 2018-09-22 Outpatient Sustache, MH[facility] [id number] 13:30:00 23:59:59 [place] 25 2018-09-06 2018-09-07 Outpatient [facility] [id number] 08:31:31 08:31:31 61 2018-09-03 2018-09-03 Outpatient Sustache, MH[facility] [id number] 09:00:00 23:59:59 [place] 24 2018-07-28 2018-07-28 [facility] [id number] 01:39:00 23:59:00 Epifanio Velasquez 2018-07-28 2018-07-28 [facility] [id number] [facility] 01:39:00 01:39:00 2018-06-16 2018-06-17 Outpatient [facility] [id number] 15:32:41 15:32:41 59 2018-06-14 2018-06-14 Outpatient Sustache, MH[facility] [id number] 14:10:00 23:59:59 [place] 23 2018-01-19 2018-01-20 Outpatient MH[facility] [id number] 11:25:00 23:59:59 38 2018-01-08 2018-01-09 Outpatient [facility] [id number] 08:55:00 23:59:59 37 2018-01-08 2018-01-09 Outpatient [facility] [id number] 08:54:00 23:59:59 36 2018-01-05 2018-01-06 Outpatient [facility] [id number] 08:32:00 23:59:59 35 2018-01-05 2018-01-05 Outpatient Sustache, MH[facility] [id number] 14:50:00 23:59:59 Calros 22 2018-01-05 2018-01-05 Outpatient Alas, [id number] 16:42:00 23:59:00 Mercedez [id number] 5.29 2017-12-30 2017-12-31 Outpatient [facility] [id number] 15:39:00 23:59:59 34 2017-12-30 2017-12-31 Outpatient [facility] [id number] 10:11:00 23:59:59 33 2017-11-06 2017-11-07 Outpatient [facility] [id number] 16:20:00 23:59:59 32 2017-10-06 2017-10-06 Outpatient Sustache, MHMG [facility] [id number] 14:30:00 23:59:59 Cralos 21 2017-07-28 2017-07-29 Outpatient [facility] [id number] 15:09:00 23:59:59 31 2017-07-28 2017-07-29 Outpatient [facility] [id number] 15:09:00 23:59:59 31 2017-07-27 2017-07-28 Outpatient [facility] [id number] 08:56:00 23:59:59 30 2017-07-27 2017-07-28 Outpatient [facility] [id number] 08:56:00 23:59:59 30 2017-07-02 2017-07-02 Outpatient Sustache, [facility] [id number] 14:50:00 23:59:59 Carlos 20 2017-06-29 2017-06-29 Outpatient Sustache, MHMG [facility] [id number] 14:50:00 14:50:00 Carlos 19 2017-06-26 2017-06-27 Outpatient [facility] [id number] 14:14:00 23:59:59 27 2017-06-15 2017-06-16 Outpatient [facility] [id number] 14:19:00 23:59:59 26 2017-06-09 2017-06-09 Outpatient Sustache, [facility] [id number] 13:50:00 23:59:59 [place] 18 2017-06-05 2017-06-06 Outpatient [facility] [id number] 11:21:00 23:59:59 25 2017-06-05 2017-06-05 Outpatient Danny, [facility]PL MHPL [id number] 20:21:00 20:28:00 Zeb Damon 17 2017-06-05 2017-06-05 Outpatient Danny, [facility] [id number] 20:21:00 20:28:00 Zeb Damon 17 2017-03-31 2017-03-31 Outpatient Sustache, MH[facility] MH[facility] [id number] 13:50:00 23:59:59 [place] 17 2017-03-12 2017-03-13 Outpatient [facility] [id number] 14:29:00 23:59:59 24 2017-03-09 2017-03-10 Outpatient [facility] [id number] 08:24:00 23:59:59 23 2017-02-23 2017-02-23 Outpatient Silvio, [facility] [id number] 13:50:00 23:59:59 Carlos 16 2016-03-25 2016-03-25 Outpatient Kamron, [id number] 09:58:00 23:59:00 Epifanio [id number] Velasquez [id number] 5.35 2016-03-12 2016-03-12 Out[place], [facility] [id number] 13:31:00 23:59:00 Epifanio Velasquez 2015-09-16 2015-09-16 Outpatient Deena, MHSL MHSL [id number] 16:47:00 19:06:00 Michelle Gallardo 2015-04-30 2015-04-30 Outpatient [place], [facility] [id number] 11:15:00 14:00:00 Epifanio 03 Ron 2015-03-14 2015-03-14 Outpatient [place], [facility] [id number] 14:09:00 23:59:00 Epifanio 02 Ron 2015-02-23 2015-02-23 Outpatient Ann Marie, [id number]. [id number] 06:58:00 23:59:00 Sb Ramos [id number] 5.29 2013-11-30 2013-11-30 Outpatient EvelineDesean [facility] [id number] 11:56:00 17:05:00 00 Results Test Description Test Time Test Comments Results Result [facility] e Teddy MONTERO 2018-01-01 11:22:00 RUN DATE: 01/01/18 [facility] - LAB *LIVE* PAGE 1 RUN TIME: 1122 Specimen Inquiry RUN USER: INTERFACE HILTON IENT: BOZENA MARSH LOC: EVA U #: [id number] AGE/SX: 62/F ROOM: RE12/31/17REG DR: Raz Gaspar III : 57 BED: DIS: STATUS: DEP [facility] TLOC: SPEC #: [id number] RECD: 12/31/17 STATUS: HENRY DELGADO #: [id number] SHYANN: 12/31/[address] [facility] [address]: Raz Gaspar III, MD ENTERED: 12/31/17 SP TYPE: SURG OTHR DR: No Primary or Family PhysicianORDERED: SURG PATH LVL 1, SURG PATH LVL 4 COPIES TO: No Primary [place] [address] [facility] [address] [place] [address] HISTOLOGY: TISSUE ID BLK PCS ANAIS LEV PROCEDURE DISPOSITION ____ ___ ___ ___ NASAL TURBINATE A 1 1 NASAL SEPTUM, N B 1 1 PROCEDURES: SURG PATH LVL 1 (01/01/18) SURG PATH LVL 4 (01/01/18) TISSUES: A. NASAL TURBINATE, NOS - BILATERAL INFERIOR TURBINATES B. NASAL SEPTUM, NOS - SEPTUM CPT CODES CPT CODE(S): 63822 , 82188 , , , , , FINAL DIAGNOSIS A. Inferior turbinate, bilateral, endoscopic sinus surgery: SINUS CONTENTS CONSISTENT WITH CHRONIC SINUSITIS B. Nasal septum, septoplasty: BONE AND CARTILAGE (GROSS ONLY) GROSS DESCRIPTION A. Bilateral inferior turbinates. Received in formalin are irregular fragments of sauceda-brown soft tissue admixed with dark brown blood clots, 2.7 x 1.8 x 1.0 cm in aggregate. [employer] sections submitted as A. B. Septum. Received in formalin are multiple irregular fragments of cartilage CONTINUED ON NEXT PAGE RUN DATE: 01/01/18 [facility] - LAB *LIVE* PAGE 2 RUN TIME: 1122 Specimen Inquiry RUN USER: INTERFACE MERRICK Glez #: [facility]:[id number] PATIENT: BOZENA MARSH #[id number] (Continued)-------- -------- GROSS DESCRIPTION (Continued) and bones, 5.0 x 3.5 x 0.7 cm in aggregate. The specimen is photographed for gross identification only. ba/nr Grossing performed at [facility] Pathology, [address] [place] [address], [address], [place] [address]. Automobile Locator: Ralph Dash M.D. MICROSCOPIC DESCRIPTION A. Bilateral inferior turbinates. Fragments of respiratory epithelium lined mucosa. There are benign mucus glands and a chronic inflammatory infiltrate. Fragments of unremarkable cartilage and bone present. No evidence of malignancy. B. Septum. For gross identification only. /doug Signed SIGNATURE ON FILE Emmanuel Chatterjee 01/01/18 1122 END OF REPORT CARDIAC ENZYMES 2015-09-16 <0.02 [facility] 22:47:00 [facility] CARDIAC ENZYMES 2015-09-16 <0.5 [facility] 22:47:00 [place] CARDIAC ENZYMES 2015-09-16 54 [facility] 22:47:00 [facility] CARDIAC ENZYMES 2015-09-16 <0.9 [facility] 22:47:00 [facility] CHEM PANEL 2015-09-16 7.0 [facility] 22:47:00 [place] CHEM PANEL 2015-09-16 71 [facility] 22:47:00 [facility] CHEM PANEL 2015-09-16 3.3 [facility] 22:47:00 [place] CHEM PANEL 2015-09-16 1.1 [facility] 22:47:00 [facility] CHEM PANEL 2015-09-16 0.8 [facility] 22:47:00 [facility] CHEM PANEL 2015-09-16 77 [facility] 22:47:00 [place] CHEM PANEL 2015-09-16 12.7 [facility] 22:47:00 [place] CHEM PANEL 2015-09-16 18 [facility] 22:47:00 [place] CHEM PANEL 2015-09-16 3.7 [facility] 22:47:00 [place] CHEM PANEL 2015-09-16 24 [facility] 22:47:00 [place] CHEM PANEL 2015-09-16 18 [facility] 22:47:00 [facility] CHEM PANEL 2015-09-16 108 [facility] 22:47:00 [place] CHEM PANEL 2015-09-16 3.7 [facility] 22:47:00 [place] CHEM PANEL 2015-09-16 28 [facility] 22:47:00 [place] CHEM PANEL 2015-09-16 8.6 [facility] 22:47:00 [place] CHEM PANEL 2015-09-16 145 [facility] 22:47:00 [place] CHEM PANEL 2015-09-16 0.90 [facility] 22:47:00 [place] CHEM PANEL 2015-09-16 16 [facility] 22:47:00 [facility] CHEM PANEL 2015-09-16 102 [facility] 22:47:00 [place] HEMATOLOGY 2015-09-16 8.8 [facility] 22:47:00 [place] HEMATOLOGY 2015-09-16 5.39 [facility] 22:47:00 [place] HEMATOLOGY 2015-09-16 88.0 [facility] 22:47:00 [place] HEMATOLOGY 2015-09-16 15.6 [facility] 22:47:00 [place] HEMATOLOGY 2015-09-16 22:47:00 Test Item Value Reference Range Interpretation Comme nts MCH (test code = MCH) 29.0 pg 27.0-31.0 [facility] [id number] 22:47[facility] 2015-[facility]16 22:47:38335Uzyksjsc [id number] 22:47:0033.0[facility] FeakbssQSWBINYNMA0410-12-83 22:47:0013.3[facility] [id number] 22:47:0047.5[facility] ZgmglbdSNIMCOEHKZ5957-83-74 22:47:000.5[facility] WBSJLIFLCQ4218-87-88 22:47:001.1[facility] JdovlcyJEHKJYHGGV2578-43-28 22:47:006.3 [facility] SuxvdmuKYMNOFFBIC4354-25-21 22:47:0054.0[facility]annHEMATOLOGY 2015-09-16 22:47:0038.1[facility] AuekeeiGVLCEUDYEJ8422-45-35 22:47:000.0[facility] FijqfjcTFRSYDKGQE6407-56-93 22:47:000.1[facility] GbtykvgFYRZTWSJOQ3721-91-81 22:47:000.6[facility] RdgdlnnVCAARUFQOP1056-36-16 22:47:003.4[facility] FTUZYUVMVB0793-38-22 22:47:004.7[facility] EELQZ2900-13-54 22:47:00None Seen (09/16/15 5:47 PM)[facility] YHFFU9429-85-89 22:47:00Negative (09/16/15 5:47 PM)[facility] ZSGBO5304-32-87 22:47:00Negative (09/16/15 5:47 PM)[facility] SNRGA4474-91-79 22:47:00None Seen (09/16/15 5:47 PM)[facility] EHTMY0612-91-48 22:47:00Performed (09/16/15 5:47 PM)[facility] AIFCF9913-01-47 22:47:00Negative (09/16/15 5:47 PM)[facility] LIJCY6499-67-51 22:47:00Negative (09/16/15 5:47 PM)[facility] [id number] 22:47:00 Test Item Value Reference Range Interpretation Comments UA pH (test code = UA pH) 6.0 1 5.0-8.0 [facility] [id number] 22:47:00Negative *NA*(09/16/15 5:47 PM) [facility] FVIVT5431-70-98 22:47:00Negative *NA*(09/16/15 5:47 PM) [facility] IPCJT1746-02-49 22:47:000.2[facility] ZAQQW0358-99-25 22:47:00Trace *ABN*(09/16/15 5:47 PM)[facility] DDCZC2650-94-91 22:47:00Clear (09/16/15 5:47 PM)[facility] STOOL 2015-09-16 22:47:00Yellow *NA*(09/16/15 5:47 PM)[facility] STOOL 2015-09-16 22:47:00 Test Item Value Reference Range Interpretation Comments UA Spec Grav (test code = UA Spec 1.025 1 Grav) [facility] PmobwveSwackbjm3013-97-85 21:24:000.6 U/mLMemorial HermannChemistry 2014-08-22 19:06:000.96[facility] PnqvlljXpyztjpblx5702-77-06 19:06:001[facility] HqoqizpNgltlwax5190-18-45 19:06:00NegativeMemorial HermannURINE AND STOOL 2013-11-30 19:00:45Negative *NA*(11/30/13 2:00 PM)[facility] STOOL 2013-11-30 19:00:45Trace *ABN*(11/30/13 2:00 PM)[facility] STOOL 2013-11-30 19:00:450.2[facility] PVNNC3849-50-63 19:00:45 Test Item Value Reference Range Interpretation Comments UA pH (test code = UA pH) 6.0 1 5.0-8.0 [facility] [id number] 19:00:45Negative *NA*(11/30/13 2:00 PM) [facility] MYFVU9343-35-43 19:00:45Negative (11/30/13 2:00 PM) [facility] ISBJX5154-65-66 19:00:45Negative (11/30/13 2:00 PM) [facility] NZTNI4024-72-74 19:00:45Clear (11/30/13 2:00 PM)[facility] MJWWF8552-48-59 19:00:45 Test Item Value Reference Range Interpretation Comments UA Spec Grav (test code = UA Spec 1.020 1 Grav) [facility] [id number] 19:00:45Yellow *NA*(11/30/13 2:00 PM) [facility] [id number] 19:00:45Negative (11/30/13 2:00 PM) [facility] ADGOY7446-29-00 19:00:45Negative (11/30/13 2:00 PM) [facility]annCHEM XUHYV7722-58-18 17:35:0016[facility] HermannCHEM PANEL 2013-11-30 17:35:0014.0[facility]annCHEM ZXNNS4834-71-49 17:35:003.9[facility]annCHEM EDGNZ9903-11-47 17:35:001.1[facility]annCHEM DPBZF3842-45-37 17:35:0071[facility]annCHEM MGPMR7121-53-15 17:35:0031[facility]annCHEM PZTVG3763-12-83 17:35:0025[facility] HermannCHEM NYIUW7160-74-08 17:35:0093 [facility]annCHEM FHYEX1819-73-76 17:35:000.9[facility] HermannCHEM PANEL 2013-11-30 17:35:009.5[facility]annCHEM SOFGT9101-41-93 17:35:008.0[facility]annCHEM QWIKN4538-24-34 17:35:004.1[facility]annCHEM GEGDO6242-58-48 17:35:0024[facility] HermannCHEM BREAR2582-53-92 17:35:29405Kbjfbofi HermannCHEM DIKST0242-66-81 17:35:000.9[facility] HermannCHEM WSUQM0772-83-84 17:35:09302 [facility]annCHEM UEABZ9507-07-20 17:35:004.0[facility] HermannCHEM PANEL 2013-11-30 17:35:0014Mem[facility] HermannCHEM RQULX0704-14-19 17:35:0092[facility] HermannCHEM CXJAV1770-67-55 17:35:48046Ppdqykqd HermannCHEM TYTII0170-23-56 17:35:0035[facility] YyhetghVYSHZUQPNI3997-78-79 17:35:0034.0[facility] GWKCSGJGOA1034-59-67 17:35:0012.7[facility] JhgejmdNJZULFRSDE7354-93-29 17:35:00 236[facility] IvpdepaINUNTHDWRF5570-69-53 17:35:009.6[facility]annHEMATOLOGY 2013-11-30 17:35:0016.9[facility] EidvyhbSGNTQNARMC2596-10-77 17:35:007.1[facility] IjqrqgdDJMIMJPSCJ6343-83-31 17:35:005.64[facility] QfgwuepZXCJKUSQYF1882-53-96 17:35:0049.7[facility] VanhaedHWHGAFIKFM7092-75-65 17:35:00 Test Item Value Reference Range Interpretation Comments MCH (test code = MCH) 29.9 pg 27.0-31.0 [facility] EetnxdkONVURLBUSD6355-05-99 17:35:0088.0[facility] HermannHEMATOLOGY 2013-11-30 17:35:000.0[facility] ElzcqsqUPWSZWXAKL8023-01-42 17:35:004.8[facility] QszeevkLDBSWSDKTN9819-51-91 17:35:000.4[facility] XcuevcyXIAZLUHCYA6096-39-97 17:35:000.5[facility] DbsweuoZZEPIZXIDI8460-24-25 17:35:000.0[facility] BXSBSZUZGU6158-40-57 17:35:000.7[facility] ZhigohzMACDZCIMCD2614-18-22 17:35:001.8 [facility] XwulibdAQASGERSGN8205-17-20 17:35:0067.7[facility] HermannHEMATOLOGY 2013-11-30 17:35:005.7[facility] YvrzcrvTHOQEWVZGR3387-09-72 17:35:0025.4[facility] FpbdaolHIBMBEGFYE3358-49-86 17:35:00Negative (11/30/13 12:35 PM)[facility] Aphrbazx3100-03-24 19:05:000.6 U/mLMemorial TzmqygfBzybxuuj4310-22-43 19:05:00 0.6 U/mLMemorial HermannOb/Qyr3653-45-12 15:51:31NormalMemorial HermannOb/Research Animal Attendant 2008-03-30 15:51:31NormalMemorial HermannOb/Ivg6397-10-03 15:51:31NormalMemorial HermannOb/Vly8549-02-77 15:51:31NormalMemorial JtdcchyOkpuxzrmy2793-08-43 15:51:31NormalMemorial BthiyphBvxtmcudi4337-21-20 15:51:31NormalMemorial Mart
[2019-12-12 18:42] LABS: Absolute Lymphocytes (CBC) 1.7 K/uL (0.7-4.9); Basophils % 1.2 % (0-1.3); Hematocrit 44.9 % (36.0-45.0); Lymphocytes % 32.6 % (15.3-44.8); MPV 9.6 fL (7.6-11.3); RBC Red Blood Cell Count 5.12 M/uL (3.86-4.86)
[2019-12-12 18:43] LABS: Protime INR 0.93
[2019-12-12 19:03] LABS: ALT/SGPT 33 U/L (12-78); AST/SGOT 21 U/L (15-37); Albumin 3.7 g/dL (3.4-5.0); Alkaline Phosphatase 90 U/L (45-117); BUN Blood Urea Nitrogen 10 mg/dL (7-18); Bicarbonate 27 mmol/L (21-32); Bilirubin Direct 0.2 mg/dL (0-0.2); Bilirubin Total 0.7 mg/dL (0.2-1.0); Glucose Level 91 mg/dL (74-106); Lipase 161 U/L (73-393); Magnesium 2.3 mg/dL (1.8-2.4); NT PRO-BNP 36 pg/mL (<125); Potassium 3.7 mmol/L (3.5-5.1); Protein, Total 7.1 g/dL (6.4-8.2); Sodium Level 142 mmol/L (136-145); Troponin (Emerg Dept Use Only) < 0.02 ng/mL (0.0-0.045)
--- NOTE | 2019-12-12 19:15 | RAD REPORT ---
EXAM DESCRIPTION: RAD - Chest Single View - 12/12/2019 6:50 pm CLINICAL HISTORY: COUGH Chest pain. COMPARISON: Chest Single View dated 09/12/2018; Chest Single View dated 01/06/2018; Chest Single View dated 10/29/2017; Chest Single View dated 05/13/2017 FINDINGS: Portable technique limits examination quality. The lungs are grossly clear. The heart is upper limit of normal in size. No displaced fractures. IMPRESSION: No acute intrathoracic process suspected.
--- NOTE | 2019-12-12 19:45 | RAD REPORT ---
EXAM DESCRIPTION: CTAbdomen Pelvis W Contrast - 12/12/2019 7:29 pm CLINICAL HISTORY: Abdominal pain. ABD PAIN COMPARISON: Abdomen Pelvis W Contrast dated 01/02/2019; Abdomen Pelvis W Contrast dated 08/21/2016 TECHNIQUE: Biphasic CT imaging of the abdomen and pelvis was performed with 100 ml non-ionic IV cont rast. All CT scans are performed using dose optimization technique as appropriate and may include automated exposure control or mA/KV adjustment according to patient size. FINDINGS: Linear atelectasis is present in both lung bases. Multiple benign liver cysts are present. No aggressive liver lesion or biliary dilatation. Cholecyste ctomy clips. The spleen, pancreas, adrenal glands are normal. Multiple bilateral parapelvic renal cys ts. No bowel obstruction, free air, free fluid or abscess. The appendix is normal. No evidence of signi ficant lymphadenopathy. Mild lumbar degenerative changes. IMPRESSION: No acute intra-abdominal or pelvic finding.
--- NOTE | 2019-12-12 19:55 | EDPHYS ---
Physician Documentation [facility] Name: Tracey Rodriguez Age: 64 yrs Sex: Female : 1955 Arrival Date: 12/12/2019 Time: 16:30 Bed 16 Private MD: ED Physician Piter Ravi HPI: 12/11 18:58 This 64 yrs old Female presents to ER via Ambulatory with complaints of Rib jr8 Pain, Abdominal Pain, Body Cramps. 18:58 Patient stated that since she had COVID she has had bodyaches and cramps. Also has left jr8 rib pain radiating to breast along with diarrhea and abdominal cramping. History of diverticulitis as well . Severity of symptoms: At their worst the symptoms were moderate in the emergency department the symptoms are unchanged. It is unknown whether or not the patient has had similar symptoms in the past. The patient has not recently seen a physician. Historical: - Allergies: 17:11 anti-inflammatory (all); ca1 17:11 Ciprofloxacin; ca1 17:11 fluoroquinolones; ca1 17:11 Sulfa (Sulfonamide Antibiotics); ca1 17:11 Levaquin; ca1 - PMHx: 17:11 Diverticulitis; hiatal hernia; Hypoglycemic; Hypothyroidism; ibs; throat erosion; UTI; ca1 - Immunization history:: Adult Immunizations up to date. - Social history:: Smoking status: Patient denies any tobacco usage or history of. ROS: 18:58 Eyes: Negative for injury, pain, redness, and discharge, ENT: Negative for injury, jr8 pain, and discharge, Neck: Negative for injury, pain, and swelling, Respiratory: Negative for shortness of breath, cough, wheezing, and pleuritic chest pain, Back: Negative for injury and pain, MS/Extremity: Negative for injury and deformity, Skin: Negative for injury, rash, and discoloration, Neuro: Negative for headache, weakness, numbness, tingling, and seizure. 18:58 Cardiovascular: Positive for chest pain, with movement. 18:58 Abdomen/GI: Positive for abdominal pain, diarrhea, Negative for nausea, vomiting, abdominal cramps, abdominal distension. Exam: 18:58 Eyes: Pupils equal round and reactive to light, extra-ocular motions intact. Lids and jr8 lashes normal. Conjunctiva and sclera are non-icteric and not injected. Cornea within normal limits. Periorbital areas with no swelling, redness, or edema. ENT: Nares patent. No nasal discharge, no septal abnormalities noted. Tympanic membranes are normal and external auditory canals are clear. Oropharynx with no redness, swelling, or masses, exudates, or evidence of obstruction, uvula midline. Mucous membranes moist. Neck: Trachea midline, no thyromegaly or masses palpated, and no cervical lymphadenopathy. Supple, full range of motion without nuchal rigidity, or vertebral point tenderness. No Meningismus. Cardiovascular: Regular rate and rhythm with a normal S1 and S2. No gallops, murmurs, or rubs. Normal PMI, no JVD. No pulse deficits. Respiratory: Lungs have equal breath sounds bilaterally, clear to auscultation and percussion. No rales, rhonchi or wheezes noted. No increased work of breathing, no retractions or nasal flaring. Abdomen/GI: Soft, with mild tenderness to LUQ, with normal bowel sounds. No distension or tympany. No guarding or rebound. No evidence of tenderness throughout. Back: No spinal tenderness. No costovertebral tenderness. Full range of motion. Skin: Warm, dry with normal turgor. Normal color with no rashes, no lesions, and no evidence of cellulitis. MS/ Extremity: Pulses equal, no cyanosis. Neurovascular intact. Full, normal range of motion. Neuro: Awake and alert, GCS 15, oriented to person, place, time, and situation. Cranial nerves II-XII grossly intact. Motor strength 5/5 in all extremities. Sensory grossly intact. Cerebellar exam normal. Normal gait. 18:58 Chest/axilla: Normal chest wall appearance and motion. Nontender with no deformity. No lesions are appreciated. Vital Signs: 17:05 BP 132 / 77; Pulse 85; Resp 16 S; Temp 97.6(TE); Pulse Ox 99% on R/A; Weight 90.72 kg ca1 (R); Height 5 ft. 3 in. (160.02 cm) (R); Pain 5/10; 17:53 BP 135 / 81; Pulse 73; Resp 17; Pulse Ox 96% on R/A; tw2 18:59 BP 133 / 79; Pulse 84; Resp 17; Pulse Ox 100% on R/A; tw2 17:05 Body Mass Index 35.43 (90.72 kg, 160.02 cm) ca1 MDM: 18:21 Patient medically screened. [facility] 19:51 Data reviewed: vital signs, nurses notes, lab test result(s), EKG, radiologic studies, [facility] CT scan, plain films. Data interpreted: Pulse oximetry: on room air is 100 %. Interpretation: normal. Counseling: I had a detailed discussion with the patient and/or guardian regarding: the historical points, exam findings, and any diagnostic results supporting the discharge/admit diagnosis, lab results, radiology results, the need for outpatient follow up, a family practitioner, to return to the emergency department if symptoms worsen or persist or if there are any questions or concerns that arise at home. 12/11 18:21 Order name: Basic Metabolic Panel; Complete Time: 19:05 12/11 18:21 Order name: CBC with Diff; Complete Time: 18:54 12/11 18:21 Order name: LFT's; Complete Time: 19:05 12/11 18:21 Order name: Magnesium; Complete Time: 19:05 12/11 18:21 Order name: NT PRO-BNP; Complete Time: 19:05 12/11 18:21 Order name: PT-INR; Complete Time: 18:54 12/11 18:21 Order name: Troponin (emerg Dept Use Only); Complete Time: 19:05 12/11 18:21 Order name: XRAY Chest (1 view); Complete Time: 19:31 12/11 18:21 Order name: EKG; Complete Time: 18:21 12/11 18:21 Order name: Cardiac monitoring; Complete Time: 18:57 12/11 18:21 Order name: EKG - Nurse/Tech; Complete Time: 18:57 12/11 18:21 Order name: Lipase; Complete Time: 19:05 12/11 19:06 Order name: CT Abd/Pelvis - IV Contrast Only; Complete Time: 19:50 12/11 19:32 Order name: COVID-19 12/11 18:21 Order name: IV Saline Lock; Complete Time: 18:57 12/11 18:21 Order name: Labs collected and sent; Complete Time: 18:57 12/11 18:21 Order name: O2 Per Protocol; Complete Time: 18:24 jr8 12/11 18:21 Order name: O2 Sat Monitoring; Complete Time: 18:24 jr8 Administered Medications: No medications were administered Disposition: 12/12 08:18 Co-signature as Attending Physician, Piter Ravi MD I agree with the assessment and ruy plan of care. Disposition: 12/12/19 19:54 Discharged to Home. Impression: Encounter for screening for other viral diseases, Myalgia. - Condition is Stable. - Discharge Instructions: Chest Wall Pain, Musculoskeletal Pain, COVID-19. - Medication Reconciliation Form, Thank You Letter, Antibiotic Education, Prescription Opioid Use form. - Follow up: Private Physician; When: 2 - 3 days; Reason: Recheck today's complaints, Continuance of care, Re-evaluation by your physician. - Problem is new. - Symptoms have improved. Addendum: 12/14/2019 15:09 Addendum: Notified patient of COVID-19 positive test result. Feels overall well, return r n precautions given and understood.. Signatures: Dispatcher [employer] Piter Raines MD MD cha Nieto, Roman, MD MD rn Roszak, Josh, PA PA jr8 Veronica Hightower, Mis Blakely RN, RN RN vc Corrections: (The following items were deleted from the chart) 12/11 20:24 19:54 12/12/2019 19:54 Discharged to Home. Impression: Encounter for screening for vc other viral diseases; Myalgia. Condition is Stable. Forms are Medication Reconciliation Form, Thank You Letter, Antibiotic Education, Prescription Opioid Use. Follow up: Private Physician; When: 2 - 3 days; Reason: Recheck today's complaints, Continuance of care, Re-evaluation by your physician. Problem is new. Symptoms have improved. jr8
--- NOTE | 2019-12-12 19:55 | ER ---
Nurse's Notes [facility] Name: Tracey Rodriguez Age: 64 yrs Sex: Female : 1955 Arrival Date: 12/12/2019 Time: 16:30 Bed 16 Private MD: Diagnosis: Encounter for screening for other viral diseases;Myalgia Presentation: 12/11 17:05 Chief complaint:. Chief complaint: Patient states: 3 weeks ago, my son was Covid+ and ca1 he lives with us. I was never tested of Covid-19, but I exhibit the same symptoms as my son. I was feeling better, Covid symptoms went away. But about a week ago, I have cramps all over my body, itching and pain on my abdomen and nausea, Pain on the L mid back radiating to the L breast. Reports cough, SOB. Denies fever. Coronavirus screen: Client denies travel out of the [place] in the last 14 days. cough unrelated to allergies, nausea, shortness of breath. Ebola Screen: Patient negative for fever greater than or equal to 101.5 degrees Fahrenheit, and additional compatible Ebola Virus Disease symptoms Patient denies exposure to infectious person. Patient denies travel to an Ebola-affected area in the 21 days before illness onset. No symptoms or risks identified at this time. Initial Sepsis Screen: Does the patient meet any 2 criteria? No. Patient's initial sepsis screen is negative. Does the patient have a suspected source of infection? No. Patient's initial sepsis screen is negative. Risk Assessment: Do you want to hurt yourself or someone else? Patient reports no desire to harm self or others. Onset of symptoms was December 12, 2019. 17:05 Method Of Arrival: Ambulatory ca1 17:05 Acuity: ANUJA 3 ca1 Historical: - Allergies: 17:11 anti-inflammatory (all); ca1 17:11 Ciprofloxacin; ca1 17:11 fluoroquinolones; ca1 17:11 Sulfa (Sulfonamide Antibiotics); ca1 17:11 Levaquin; ca1 - PMHx: 17:11 Diverticulitis; hiatal hernia; Hypoglycemic; Hypothyroidism; ibs; throat erosion; UTI; ca1 - Immunization history:: Adult Immunizations up to date. - Social history:: Smoking status: Patient denies any tobacco usage or history of. Screenin:30 Abuse screen: Denies threats or abuse. Nutritional screening: No deficits noted. tw2 Tuberculosis screening: No symptoms or risk factors identified. Fall Risk None identified. Assessment: 17:50 General: Appears in no apparent distress. obese, well groomed, Behavior is cooperative, tw2 anxious. Pain: Complains of pain in abdomen and LEFT ribcage pain. Neuro: Level of Consciousness is awake, alert, obeys commands, Oriented to person, place, time, situation. Cardiovascular: Heart tones S1 S2 Patient's skin is warm and dry. Respiratory: Airway is patent Respiratory effort is even, unlabored, Respiratory pattern is regular, symmetrical, Breath sounds are clear bilaterally. GI: Abdomen is round non-distended, obese, Bowel sounds present X 4 quads. Abd is soft X 4 quads Patient currently denies abdominal pain. : No signs and/or symptoms were reported regarding the genitourinary system. EENT: No signs and/or symptoms were reported regarding the EENT system. Derm: No signs and/or symptoms reported regarding the dermatologic system. Musculoskeletal: Reports "body cramps and sometimes when that happens i have something wrong and i was reading on the internet about having covid and it causing thyroid problems so i am concerned about that \\T\\ today i had a [employer] appt with Dr. Sen but he didn't do anything so here i am and i would like Dr. Ravi to see me", provider notified. 19:00 Reassessment: Patient appears in no apparent distress at this time. No changes from tw2 previously documented assessment. Patient and/or family updated on plan of care and expected duration. Pain level reassessed. Patient is alert, oriented x 3, equal unlabored respirations, skin warm/dry/pink. 19:00 Reassessment: Assumed care of patient from DOLORES Penny. States feels better except for the vc pain the the left side and feeling a little anxious. 19:24 Reassessment: Patient to CT via stretcher. vc 19:58 Reassessment: Patient appears in no apparent distress at this time. Patient and/or vc family updated on plan of care and expected duration. Pain level reassessed. Patient is alert, oriented x 3, equal unlabored respirations, skin warm/dry/pink. Vital Signs: 17:05 BP 132 / 77; Pulse 85; Resp 16 S; Temp 97.6(TE); Pulse Ox 99% on R/A; Weight 90.72 kg ca1 (R); Height 5 ft. 3 in. (160.02 cm) (R); Pain 5/10; 17:53 BP 135 / 81; Pulse 73; Resp 17; Pulse Ox 96% on R/A; tw2 18:59 BP 133 / 79; Pulse 84; Resp 17; Pulse Ox 100% on R/A; tw2 17:05 Body Mass Index 35.43 (90.72 kg, 160.02 cm) ca1 ED Course: 16:30 Patient arrived in ED. as 17:11 Triage completed. ca1 17:11 Arm band placed on right wrist. ca1 17:29 Hemalatha Luke RN is Primary Nurse. tw2 17:30 Placed in gown. Bed in low position. Call light in reach. Pulse ox on. NIBP on. tw2 18:21 Fran Quiñonez PA is PHCP. jr8 18:21 Piter Ravi MD is Attending Physician. jr8 18:31 Inserted saline lock: 20 gauge in left antecubital area, using aseptic technique. Blood tw2 collected. 18:50 XRAY Chest (1 view) In Process Unspecified. EDMS 18:59 Report given to DOLORES Abebe. tw2 19:29 CT Abd/Pelvis - IV Contrast Only In Process Unspecified. EDMS 20:23 No provider procedures requiring assistance completed. IV discontinued, intact, vc bleeding controlled, No redness/swelling at site. Pressure dressing applied. Administered Medications: No medications were administered Outcome: 19:54 Discharge ordered by . jr8 20:23 Discharged to home ambulatory, with friend. vc 20:23 Condition: good 20:23 Discharge instructions given to patient, Instructed on discharge instructions, follow up and referral plans. Demonstrated understanding of instructions, follow-up care, medications. 20:24 Patient left the ED. vc Addendum: 12/14/2019 16:22 Addendum: COVID-19 Result: Positive result giiven to ED physician to notify pt. s s Physician: Bruce Mclean MD Physician was able to contact pt and pt was notified of positive COVID-19 swab result. Physician answered pt questions. Signatures: Dispatcher [employer] EDMS Melody Vazquez Shelby, RN RN Fran Quiñonez PA PA jr8 Hemalatha Luke, RN RN tw2 Veronica Hightower, RN RN ca1 Mis Dias, RN RN vc
[2019-12-12 22:55] VITALS: TEMP 97.6
[2019-12-12 22:58] VITALS: BP 133/79; O2SAT 100
--- NOTE | 2019-12-14 05:54 | EKG ---
Test Date: 2019-12-12 Test Time: 18:39:42 Branch Sales And Service Representative: SIDRA MEASUREMENT RESULTS: Intervals: Rate: 62 DC: 130 QRSD: 80 QT: 388 QTc: 393 Wayne: P: 29 DC: 130 QRS: -31 T: -30 INTERPRETIVE STATEMENTS: Normal sinus rhythm Left axis deviation Nonspecific ST and T wave abnormality Abnormal ECG Compared to ECG 09/12/2018 21:23:12 Left-axis deviation now present ST (T wave) deviation still present Electronically Signed On 12-14-19 05:50:31 CDT by Akin Rahman
== END 2019-12-12 20:24 | disposition home or self-care (01) ==
LOC: ER 16:29
DX: U07.1 COVID-19 (principal); R10.9 Unspecified abdominal pain; Z88.1 Allergy status to other antibiotic agents; Z88.2 Allergy status to sulfonamides; Z88.8 Allergy status to other drugs, medicaments and biological substances
CPT/HCPCS: 93005; 85025; 80048; 36415; 83735; 85610; 80076; 84484; 83690; 83880; 74177; 71045; 99284; U0002; Q9967

== ENCOUNTER 2020-01-07 22:41 | Observation (INO) | payer OTHER ==
--- OUTSIDE RECORDS SUMMARY | 2020-01-07 22:43 | XMS REPORT | Clinical Summary ---
:1955 Author Organization [facility] Address [address] [place] [address] Care Team Providers Name Role Phone Silvio Babin MD, Carlos Primary Care Provider [phone] Allergies Active Allergy Reactions Severity Noted Date [...] daily. Active Problems No known active problems Surgical History Surgery Date Site/Laterality Comments CHOLECYSTECTOMY TUBAL LIGATION CARPAL TUNNEL RELEASE Medical History Medical History Date Comments Thyroid disease Gastric ulcer Hypothyroidism Diverticulosis Family History Medical History Relation Name Comments Heart disease Father Cancer Mother Relation Name Status Comments Father Mother Social History Tobacco Use Types Packs/Day Years Used Date Never Smoker Smokeless Tobacco: Never Used Alcohol Use Drinks/Week oz/Week Comments No Sex Assigned at Date Recorded Not on file Last Filed Vital Signs Not on file Plan of Treatment Health Maintenance Due Date Last Done Comments CERVICAL CANCER SCREENING 1977 BREAST CANCER SCREENING 2006 COLONOSCOPY SCREENING 2006 SHINGLES VACCINES (#1) 2006 INFLUENZA VACCINE 10/29/2019 Results Not on fileafter 01/06/2019 Advance Directives For more information, please contact: [phone] Type Date Recorded Patient Case Assistant Explanati on Advance Directives, Living Will and 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
--- OUTSIDE RECORDS SUMMARY | 2020-01-07 22:46 | XMS REPORT | Continuity of Care Document ---
:1955 Author Organization [employer] [facility] Care Team Providers Name Role Phone [employer] [facility] Unavailable Un available Problems Problem Status Onset Classification Date Comments Sourc e Date Reported F/U AND 2ND OPINION Active [address] Acute sinusitis, 07/25/2018 OPID unspecified 018 [place] KNEE PAIN Active [address]-NAUSEA, EARLY Active [address] STOMACH PAIN Active [address] Discharge Diagnosis: 09/19/2015 Sugar Adult hypothyroidism 0[address] [place] WEAKNES AND BLURY Active [place] VISION 016 [place] BDDC - NEW PT CONSULT Active [address] BDDC/ Z12.11 SCREENING Active [facility] FOR MALIGNANT ALICIA [address] [place] [address] PAIN IN THE ABDOMEN; Active [facility] UPPER AND LOWER [address] Diarrhea (finding) Resolved Problem 10/10/2019 Data [address] [facility] on 10/04/14. [facility] OPID Mes[place], SUGARD Escobar, [place] Screening mammography Active Problem 10/10/2019 Data (procedure) [address] [facility] on 10/04/14. [facility] OPID [place], OPID Escobar, [place] Vitamin D deficiency Active Problem 10/10/2019 Data (disorder) [address] [facility] on 10/04/14. [facility] OPID [place], OPID Escobar, [place] VITAMIN D DEFICIENCY Active Condition 08/23/2014 015 Medical Group DIARRHEA Active Condition 08/23/2014 015 Medical Group MAMMOGRAM YEARLY Active Condition 08/23/2014 SCREENING 015 Medical Group Gastritis (disorder) Active Problem 10/10/2019 Data [address] [facility] on 10/04/14. Medical Center,[facility], OPID [place], OPID Cody, [place] Multiple joint pain Active Problem 10/10/2019 Data MH (finding) 015 migrated Medical from [facility] on 10/04/14. Medical Center,[facility], OPID [place], OPID Cody, [place] Muscle pain (finding) Active Problem 10/10/2019 Data [address] [facility] on 10/04/14. Medical Center,[facility], OPID [place], OPID Cody, [place] Nausea (finding) Active Problem 10/10/2019 Data [address] [facility] on 10/04/14. Medical Center,[facility] OPID [place], OPID Cody, [place] MYALGIA Active Condition 08/23/2014 015 Medical Group PAIN IN JOINT, Active Condition 08/23/2014 MULTIPLE SITES 015 Medic al Group GASTRITIS Active Condition 08/23/2014 015 Medical Group Enterobiasis Active Problem 10/10/2019 Data MH (disorder) [address] [facility] on 10/04/14. Medical Center,[facility] OPID [place], OPID Cody, [place] Numbness (finding) Active Problem 10/10/2019 Data [address] [facility] on 10/04/14. Medical Center,[facility] OPID [place], OPID Cody, [place] Reactive hypoglycemia Active Problem 10/10/2019 Data MH (disorder) [address] [facility] on 10/04/14. Medical Center,[facility] OPID [place], JESSICA Cody, [place] HYPOGLYCEMIA, REACTIVE Active Condition 08/23/2014 015 Medical Group ROUTINE GENERAL Active Condition 08/23/2014 MEDICAL EXAMINATION AT [facility] Group NUMBNESS Active [...] (disorder) Resolved Problem 10/10/2019 Data migrated from [employer] on 10/14/14. 012 Data migrated from [employer] on 10/13/14. Medical Group,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 Hypoglycemia Resolved Problem 10/10/2019 (disorder) Medical Group,[facility] [place], OPID [place], OPID Cody, [place] Obesity (disorder) Active Problem 10/10/2019 Medical Group,[facility] [place], OPID [place], OPID Cody, [place] ASTHMA Active Condition 08/23/2014 Medical Group HEADACHE [...] # 14 (Macrobid) cap, 0 Refill(s), Pharmacy: [facility][id number] fluconazole 150 mg See Active oral tablet Instruction 019 Medical s, 1 tab PO Group ONCE a week, # 2 tab, 0 Refill(s), Pharmacy: [facility] [address] ciclopirox 7.7 1 appl, Active MG/ML Topical TOP, BID, X 019 Medica l Cream 28 day, # Group 90 gm, 0 Refill(s), Pharmacy: [facility] [address]4934 rifaximin 550 MG 550 mg = 1 Active MH [place] Oral Tablet tab, PO, 019 Medical [XIFAXAN] TID, # 42 Center tab, 0 Refill(s), Pharmacy: [facility] pantoprazole 40 mg, PO, Active MH [place] Daily, # 30 019 Medical tab, 0 Center Refill(s) Hyoscyamine 0.125 mg = Active MH Sulfate 0.125 MG 1 tab, PO, 019 Medi emerson Disintegrating QID, PRN Group Tablet [Nulev] Spasm, # 40 tab, 1 Refill(s), Pharmacy: [facility] [address]49 Sulfamethoxazole 1 tab, PO, Active MH 800 MG / BID, X 7 019 Medical Trimethoprim 160 day, # 14 Group MG Oral Tablet tab, 0 [Bactrim] Refill(s), Pharmacy: [facility] 36145 clonazePAM 0.5 mg 0.5 mg = 1 Active MH oral tablet tab, PO, 019 Medical Daily, PRN Group Anxiety, # 30 tab, 1 Refill(s) Metronidazole 500 500 mg = 1 Active MH [place] Oral Tablet tab, PO, 019 Medical [Flagyl] Q8H, X 10 Group day, # 30 tab, 0 Refill(s), Pharmacy: [facility] [address] Amoxicillin 875 MG 875 mg = 1 Active MH / Clavulanate 125 tab, PO, 019 Medic al MG Oral Tablet Q12H, X 10 Group [Augmentin 875-mg] day, # 20 tab, 0 Refill(s), Pharmacy: [facility] [address]122 Nystatin 346035 1,000,000 No Longer MH UNT Oral Tablet unit = 2 Active 018 Medical tab, PO, Group BID, X 30 day, # 120 tab, 0 Refill(s), Pharmacy: [facility] [address] sucralfate 1 g 1 gm = 1 Active MH oral tablet tab, PO, 018 Medical QID, # 120 Group tab, 0 Refill(s), [facility] [address] benzonatate 100 MG 100 mg = 1 No Longer Oral Capsule cap, PO, Active 018 Medical [Tessalon Perles] TID, PRN as Gr oup needed for cough, X 7 day, # 21 cap, 0 Refill(s), [facility] [address] Azithromycin 5 Day See No Longer Dose Pack 250 mg Instruction Active 018 Med ical oral tablet s, Take 2 Group tablets by mouth the first day then 1 tablet by mouth days 2-5., X 5 day, # 6 tab, 0 Refill(s), [facility] [address] doxycycline 100 mg = 1 Active hyclate [...] day, # 30 tab, 1 Refill(s), [facility] [address] pregabalin 50 MG 50 mg = 1 Active Oral Capsule cap, PO, 018 Medical [Lyrica] TID, # 90 Group cap, 0 Refill(s) valACYclovir 1 g 1 gm = 1 No Longer oral tablet tab, PO, Active 018 Medical Q8H, X 7 Group day, # 21 tab, 1 Refill(s), [facility] [address] valACYclovir 1 g 1 gm = 1 No Longer oral tablet tab, PO, Active 018 Medical Q8H, X 7 Group day, # 21 tab, 1 Refill(s), [facility] [address] polyethylene 17 gm, PO, No Longer glycol 3350 oral Daily, X 31 Active 018 Med ical powder for day, # 527 Group reconstitution gm, 1 Refill(s), [facility] [address] benzonatate 100 mg 100 mg = 1 Active oral capsule cap, PO, 018 Medical TID, do not Group crush or chew, X 10 day, # 30 cap, 0 Refill(s), Pharmacy: [facility] [address] Codeine Phosphate 5 mL, PO, Active 2 MG/ML / Q12H, PRN 018 Medical Guaifenesin 20 cough, X 10 Group MG/ML Oral day, # 100 Solution mL, 0 [Cheratussin] Refill(s) Fluticasone 1 spray, Active propionate 0.05 NASAL, BID, 018 Medi emerson MG/ACTUAT Metered # 16 gm, 2 Pierre up Dose Nasal [place] Refill(s), Pharmacy: [facility] [address] Azithromycin 5 Day See Active Dose Pack 250 mg Instruction 018 Med ical oral tablet s, Take 2 Group tablets by mouth the first day then 1 tablet by mouth days 2-5., X 5 day, # 6 tab, 0 Refill(s), Pharmacy: [facility] [address] clonazePAM 0.5 mg 0.5 mg = 1 Active oral tablet, tab, PO, 017 Medical disintegrating BID, # 60 Group tab, 1 Refill(s) EnteraGam EnteraGam, Active [facility] See [facility] s, Samples given in clinic on 03/12/16. Lot [id number] exp date 10/15, # 1 box, Refill(s) 0 pantoprazole 40 MG 40 mg = 1 Active [facility] Enteric Coated tab, PO, 016 Medical [...] Cent er [Levsin] tab, 1 Refill(s), [facility] [address] Ondansetron 8 MG 8 mg = 1 Active [place] as Disintegrating tab, PO, 015 Medical Tablet [Zofran] TID, PRN Center Nausea and Vomiting, Dissolve tab under tongue, X 7 day, # 21 tab, 1 Refill(s), [facility] [address] GoLYTELY oral 240 mL, PO, Active [place] as powder for Q10Min, # 1 015 Medical reconstitution ea, 0 Center Refill(s), [facility] [address] Flagyl 500 mg = 1 Active [place] tab, PO, 015 Medical BID, # 14 Center tab, 0 Refill(s) VITAMIN D 1 capsule Active (ERGOCALCIFEROL) weekly x 12 015 Med ical 87114 UNIT CAPS weeks Group OMEPRAZOLE 20 MG Take one Active CPDR capsule by 015 Medical mouth daily Group ONDANSETRON HCL 4 1 tablet Active MG TABS every 8 015 Medical hours as Group needed for nausea/vomi ting QSYMIA 3.75-23 MG 1 po qd Active [id number] 015 Medical Group CYCLOBENZAPRINE 1/2-1 po No Longer MH HCL 10 MG TABS TID as Active 015 Medical needed for Group spasms PROMETHAZINE HCL 1 SUPP IA Q No Longer M H 25 MG [...] MG # 24 tab, 0 Oral Tablet [[place] Refill(s) 5/325] Phenergan Notes: Do Inactive MH [...] 500 MG 1 po qd Active MH [id number] Medical Group NULEV 0.125 MG 1 [...] 0.00 - 09/15 [place] ENZYMES 0.40 /2015 [facility] CARDIAC CK MB <0.5 0.5 - 3.6 09/15 [place] ENZYMES [facility] CARDIAC Total CK 54 12 - 191 09/15 Sugar [facility] CARDIAC CK MB Index <0.9 0.0 - 2.5 09/15 Sugar [facility] CHEM PANEL Total Protein 7.0 6.4 - 8.4 09/15 Leigh [facility] CHEM PANEL eGFR 71 09/15 Result Comment: The [facility] eGFR is calculated using the CKD-EPI formula. [...] AND UA Bacteria Occasional None Seen 09/15 Lie[place] gar STOOL /HPF /HPF /2015 [place] URINE [...] Spec Grav 1.025 <=1.030 09/15 [place] STOOL [facility] Serology HELICOB IGG 0.6 U/mL 08/23 Medical [...] Negative 11/30 [place] STOOL (11/30/13 2:00 PM) [facility] CHEM PANEL B/C Ratio 16 6 - 25 11/30 Sugar [facility] CHEM PANEL AGAP 14.0 10.0 - 11/30 Sugar 20.0 [facility] CHEM PANEL Globulin 3.9 2.0 - 4.0 11/30 Sugar [facility] CHEM PANEL A/G Ratio 1.1 0.7 - 1.6 11/30 Sugar [facility] CHEM PANEL eGFR 71 11/30 <sup>1</sup>R Suga r esult [facility] Comment: The eGFR is calculated using the [...] values reflect the clinical guidelines
of the [place] [employer]. CHEM PANEL Lipase Lvl 147 [...] 29.9 27.0 - 09 Sugar 31.0 /2013 [facility] HEMATOLOGY MCV 88.0 80.0 - 11/30 Sugar 98.0 /2013 [facility] HEMATOLOGY Eosinophils # 0.0 0.0 - 0.5 11/30 Leigh gar [facility] HEMATOLOGY Segs-Bands # 4.8 1.5 - 8.1 11/30 Sug ar [facility] HEMATOLOGY Monocytes # 0.4 0.0 - 0.8 11/30 MH Suga r [facility] HEMATOLOGY Basophils 0.5 0.0 - 1.0 11/30 MH Sugar [facility] HEMATOLOGY Basophils # 0.0 0.0 - 0.2 11/30 Suga r [facility] HEMATOLOGY Eosinophils 0.7 0.0 - 4.0 11/30 Suga r [facility] HEMATOLOGY Lymphocytes # 1.8 1.0 - 5.5 11/30 Leigh gar [facility] HEMATOLOGY Segs 67.7 45.0 - 11/30 Sugar 75.0 /2013 [facility] HEMATOLOGY Monocytes 5.7 2.0 - 12.0 11/30 Sugar [facility] HEMATOLOGY Lymphocytes 25.4 20.0 - 11/30 Sugar 40.0 [facility] IMMUNOLOGY [facility] HIV 4th Negative Negative 11/30 Suga r GEN (11/30/13 12:35 PM) [facility] Serology HELICOB IGG 0.6 U/mL 11/07 [facility] Group Serology HELICOB IGG 0.6 U/mL 11/07 Medical Group Heel Sorter PAP SMEAR Normal 03/30 Medical Group Heel Sorter PAP SMEAR Normal 03/30 Medical Group Heel Sorter PAP SMEAR Normal 03/30 Medical Group Heel Sorter PAP SMEAR Normal 03/30 Medical Group Pathology PAP SMEAR Normal 03/30 Medical Group Pathology PAP SMEAR Normal 03/30 Medical Group Pathology Reports No Data Provided for This Section Diagnostic Reports Report Value Date Source Chest 2 views DX 2-VIEW CHEST X-RAY. 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 09/16/2015 M H Mes[place] AGE: 59 years GENDER: Female TECHNIQUE: Axial [...] AND PELVIS WITH CONTRAST, 02/23/2015 02/23/[address] HISTORY: Left lower quadrant abdominal [...] Gallbladder HIDA scan with ejection fraction. [facility]: Abdominal pain. Following the [...] Group Temperature Oral (F) 98.7 F 09/03/2018 [facility]erson Group Heart Rate 63 09/03/2018 Medical Grou p Height 160.02 cm 09/03/2018 Medical Grou p BMI Calculated 31.29 09/03/2018 Medical Gr oup Weight 80.114 09/03/2018 Medical Grou p Height 160.02 cm 07/28/2018 [facility] Weight 79.545 07/28/2018 [facility] BMI Calculated 31.06 07/28/2018 [facility] Respitory Rate 16 07/28/2018 [facility] Heart Rate 68 07/28/2018 [facility] [place] Systolic (mm Hg) 129 07/28/2018 [facility] Diastolic (mm Hg) 84 07/28/2018 [facility] Weight 90 06/14/2018 Medical Grou p BMI [...] emerson Group Systolic (mm Hg) 143 03/12/2016 [facility] dical Center Diastolic (mm Hg) 94 03/12/2016 [facility] Heart Rate 72 03/12/2016 [facility] Weight 90.909 03/12/2016 [facility] BMI Calculated 35.5 03/12/2016 [facility] Center Height 160.02 cm 03/12/2016 [facility] Respitory Rate 16 03/12/2016 [facility]erson Center Respitory Rate 18 09/16/2015 [place] Heart Rate 78 09/16/2015 [place] Systolic (mm Hg) 133 09/16/2015 [place] Diastolic (mm Hg) 75 09/16/2015 Sugar L and BMI Calculated 33.51 09/16/2015 [place] Weight 85.818 09/16/2015 [place] Temperature Oral (F) 98.0 F 09/16/2015 [place] Heart Rate 81 09/16/2015 [place] Respitory Rate 18 09/16/2015 [place] Height 160.02 cm 09/16/2015 [place] Systolic (mm Hg) 155 09/16/2015 [place] Diastolic (mm Hg) 95 09/16/2015 Sugar L and BMI Calculated 31.86 03/14/2015 [facility] Weight 81.591 03/14/2015 [facility] Height 160.02 cm 03/14/2015 [facility] Heart Rate 81 03/14/2015 [facility] Temperature Oral (F) 97.9 F 03/14/2015 [facility] Systolic (mm Hg) 148 03/14/2015 [facility] Diastolic (mm Hg) 88 03/14/2015 [facility] Height 63 08/23/2014 Medical Grou p Temperature [...] Sugar L and Respitory Rate 16 11/30/2013 [place] Heart Rate 89 11/30/2013 [place] Systolic (mm Hg) 147 11/30/2013 [place] Diastolic (mm Hg) 86 11/30/2013 Sugar L and Heart Rate 88 11/30/2013 [place] Respitory Rate 16 11/30/2013 [place] Weight 96.818 11/30/2013 [place] Height 160.02 cm 11/30/2013 [place] BMI Calculated 37.81 11/30/2013 [place] Temperature Oral (F) 98.2 F 11/30/2013 [place] Respitory Rate 18 11/30/2013 [place] Heart Rate 92 11/30/2013 [place] Diastolic (mm Hg) 92 11/30/2013 Sugar L [...] Provider Date Date Visit Memorial Lab Report [id number] [facility] 12/03 12/03 [place] 7590 Sust[place] /2012 Medical Duran Garcia [facility] [id number] [facility] 12/07 12/07 MH Williams Visit 7040 S[address]ache /2012 Medical Duran Garcia [facility] Office [id number] [facility] 09/01 09/01 MH Mart Visit 7020 Sustache /2013 MD Group Radha Mohamud Jr. [facility] Office [id number] [facility] 10/05 10/05 MH Williams Visit 1090 [place] /2013 MD Radha Mohamud Jr. [facility] [id number] [facility] 10/25 10/25 MH Mart Visit 8880 [place] /2013 MD Group Radha Mohamud Jr. [facility] [id number] [facility] 11/07 11/07 MH Mart Visit 2060 [place] /2013 MD Radha Mohamud Jr. [facility] Lab Report [id number] [facility] 11/07 11/07 MH Mart 2260 [place] /2013 MD Radha Mohamud Jr. [facility] [id number] [facility] 11/21 11/21 MH Mart Visit 8980 [place] /2013 MD Group Radha Mohamud Jr. [facility] [place] [id number] Desean Mosquera 11/30 11/30 M Joseph Cevallos Emergency /2013 [place] [facility] [id number] [facility] 12/01 12/01 Williams 2960 [address] /2013 MD Group Radha Mohamud Jr. [facility] Office [id number] [facility] 02/13 02/13 MH Williams Visit 9710 [place] /2013 MD Group Radha Mohamud Jr. [place] [facility] [id number] [facility] 04/06 04/06 MH Williams Visit 8760 [place] /2014 MD Group Radha Mohamud Jr. [facility] [id number] [facility] 08/08 08/08 MH Williams Visit 9590 [place] /2014 MD Group Radha Mohamud Jr. [facility] Office [id number] [facility] 08/22 08/22 Mart Visit 7820 [place] /2014 MD Group Radha Mohamud Jr. [facility] Office [id number] [facility] 08/23 08/23 Mart Visit 3800 [place] /2014 MD Group Radha Mohamud Jr. [facility] Lab Report [id number] [facility] 08/23 08/23 Mart 3890 [address] /2014 MD Radha Mohamud Jr. Group [place] Outpatient [id number] [facility] 01/30 Activ e Memorial SUSTACHE [facility] Outpt Diag [id number] Sb 02/23 02/24 OPID Outpatient Services Brusly Sug ar Imaging [facility] Outpatient [id number] Ep[facility]anio 03/14 03/15 [facility] Kamron [facility] Bedded [id number] Epifanio 04/30 04/30 [facility] Outpatient Kamron [facility] Outpatient [id number] [facility] 05/17 Activ e Memorial SUSTACHE [place] Outpatient [id number] [facility] 07/09 Activ e Memorial SUSTACHE [place] Outpatient [id number] NADINE LAM 08/22 Acti ve Memorial /2015 [place] Outpatient [id number] [facility] 09/10 Activ e Memorial SUSTACHE [facility] [place] [id number] Michelle 09/15 09/16 Sugar [place] Emergency Deena /2015 [facility] Outpatient [id number] [facility] 10/17 Activ e Memorial SUSTACHE [place] Outpatient [id number] [facility] 11/18 Activ e Memorial SUSTACHE Mart Outpatient [id number] [facility] 01/20 Activ e Memorial SUSTACHE Williams Outpatient [id number] [facility] 02/12 Activ e Memorial SUSTACHE [facility] Outpatient [id number] Epifanio 03/12 03/13 [facility] [place] [facility] Outpt Diag [id number] Epifanio 03/25 03/26 OPID Outpatient Services [place] [facility] Outpatient [id number] CARLOS 04/17 Activ e Memorial SUSTACHE Williams Outpatient [id number] CARLOS 05/15 Activ e Memorial SUSTACHE /2016 [place] Outpatient [id number] CARLOS 06/03 Activ e Memorial SUSTACHE Williams Outpatient [id number] CARLOS 07/30 Activ e Memorial SUSTACHE /2016 Mart Outpatient [id number] CARLOS 08/29 Activ e Memorial SUSTACHE /2016 Mart Outpatient [id number] CARLOS 11/12 Activ e Memorial SUSTACHE /2016 [place] Outpatient [id number] CARLOS 12/30 Activ e Memorial SUSTACHE /2016 [place] Outpatient [id number] CARLOS 02/23 Activ e Memorial SUSTACHE /2016 [facility] Outpatient [id number] Carlos 02/23 02/24 Primary Sustache /2016 [facility] Phone [id number] 03/09 03/11 Primary Message /2016 [facility] Care [facility] Phone [id number] 03/12 03/14 Primary Message /2016 [facility] [place] Outpatient [id number] CARLOS 03/31 Activ e Memorial SUSTACHE /2017 [facility] Outpatient [id number] Carlos 03/31 04/01 Primary Sustache /2017 [facility] Phone [id number] 06/05 06/07 Primary Message /2017 [facility] Care [facility] Emergency [id number] Zeb 06/06 06/06 Mart Delgado /2017 [facility] Outpatient [id number] CARLOS 06/09 Activ e Memorial SUSTACHE /2017 [facility] Outpatient [id number] Carlos 06/09 06/10 Primary Sustache /2017 [facility] [place] [facility] Phone [id number] 06/15 06/17 Primary Message /2017 [facility] Phone [id number] 06/26 06/28 Primary Message /2017 [facility] [place] Outpatient [id number] CARLOS 06/29 Activ e Memorial SUSTACHE [facility] Ambulatory [id number] Carlos 06/29 06/29 Primary Pre-Reg Sustache /2017 [facility] [place] Outpatient [id number] CARLOS 07/02 Activ e Memorial SUSTACHE Williams [facility] Outpatient [id number] Carlos 07/02 07/03 MH Primary Sustache /2017 [facility] [place] [facility] Phone [id number] 07/27 07/29 Primary Message /2017 [facility] [place] [facility] Phone [id number] 07/28 07/30 Primary Message /2017 [facility] [place] Outpatient [id number] CORTNEY 10/06 Active Memorial ALAS Mart [facility] Outpatient [id number] Carlos 10/06 10/07 Primary Sustache /2017 [facility] [place] [facility] Phone [id number] 11/06 11/08 Primary Message /2017 [facility] [place] [facility] Phone [id number] 12/30 01/01 Primary Message /2017 [facility] [place] [facility] Phone [id number] 12/30 01/01 Primary Message /2017 [facility] [place] [facility] Phone [id number] 01/05 01/07 Primary Message /2017 [facility] [place] Outpatient [id number] CORTNEY01/05 Active Memorial ALAS [facility] [id number] Carlos 01/05 01/06 Primary [place] /2017 [facility] [place] Outpt Diag [id number] [place] 01/05 01/06 [facility] Outpatient Services [place] /2017 [facility] [place] [facility] Phone [id number] 01/08 01/10 Primary Message /2017 [facility] Phone [phone] 01/08 01/10 Primary Message /2017 [facility] Outside [id number] 01/19 01/21 Primary Medical /2017 [facility] [place] Outpatient [id number] CARLOS 06/14 [facility] [place] [facility] Outpatient [id number] Carlos 06/14 06/15 MH Primary [place] /2018 [facility] Between [id number] 06/16 06/17 Primary Visit /2018 [facility] Out[facility] [id number] Epifanio 07/28 07/29 [facility] [place] [facility] [place] /2018 [facility] Outpatient [id number] Carlos 09/03 [facility] [place] /2018 [place] [facility] Outpatient [id number] Carlos 09/03 09/04 MH Primary [place] /2018 [facility] Between [id number] 09/06 09/07 Primary Visit /2018 [facility] Outpatient [id number] Carlos 09/22 [facility] [place] /2018 [facility] Outpatient [id number] Carlos 09/22 09/23 Primary [place] /2018 [facility] [place] Between [id number] 09/22 09/23 Primary Visit /2018 [facility] Between [id number] 09/24 09/25 Primary Visit /2018 [facility] Between [id number] 09/27 09/28 Primary Visit /2018 [facility] Outpatient [id number] Carlos 12/31 [facility] [place] /2018 [place] Jr [facility] Outpatient [id number] Carlos 12/31 01/01 Primary [place] /2018 [facility] [place] [facility] Between [id number] 01/03 01/04 Primary Visit /2018 [facility] Outpatient [id number] Carlos 10/06 [facility] [place] /2019 [facility] Outpatient [id number] Carlos 10/06 [facility] [place] /2019 [facility] Ambulatory [id number] Carlos 10/06 10/06 Primary Pre-Reg [place] /2019 [facility] [place] [facility] Between [id number] 10/06 10/07 Primary Visit /2019 [facility] Procedures Procedure Code Date Perfomer Comments Source Removal of [id number] 03/30/2013 [facility]bladder Group,[facility], [place] JESSICA [place],PAULETTE [place], [place] colonoscopy [id number] 03/30/2008 [facility] vaginal Pap smear [id number] 03/30/2008 [facility] results [facility] mammogram [id number] 03/30/1999 [facility] Bilateral tubal [id number] Medica l ligation Group,[facility], [facility] [place], [facility] [place], [place] Carpal tunnel [id number] Medical release Group,[facility], [facility] [place], [facility] [place], [place] Mammogram [id number] Medical Group,[facility], [facility] [place] Assessment and Plan No Data Provided for [...] Smoking Cessation Counseling No entered on: 06/14/18 [id number] Social History TypeResponse 07/02/2017 [facility] Substance Abuse 1 Alcohol 2 Smoking Status Never smoker; Ready to change: No; Elizabeth rns about tobacco use in household: No; Exposure to Tobacco Smoke None; Cigarette Smoking Last 365 Days No; Reg Smoking Cessation Counseling No entered on: 07/28/18 [id number] Social History TypeResponse 07/02/2017 [facility] Substance Abuse 1 Alcohol 2 Smoking Status Never smoker; Ready to change: No; Elizabeth rns about tobacco use in household: No; Exposure to Tobacco Smoke None; Cigarette Smoking Last 365 Days No; Reg Smoking Cessation Counseling No entered on: 01/05/18 [id number] Social History TypeResponse 07/02/2017 [facility] Alcohol 1 Substance Abuse 2 Smoking Status Never smoker; Ready to change: No; Elizabeth rns about tobacco use in household: No; Exposure to Tobacco Smoke None; Cigarette Smoking Last 365 Days No; Reg Smoking Cessation Counseling No entered on: 12/31/18 [id number] Social History TypeResponse 03/12/2016 JESSICA kang Smoking [...]
--- OUTSIDE RECORDS SUMMARY | 2020-01-07 22:48 | XMS REPORT | Continuity of Care Document ---
:1955 Author Organization [facility] t Address [address] [place] [address] Care Team Providers Name Role Phone Silvio Babin MD Primary Care Physician Silvio Echevarria Attending Clinician Ron Lundy Attending Clinician Bishop Attending Clinician Nelson Delgado Attending Clinician Paulina Shaffer Attending Clinician Rachel Jesus Attending Clinician Eveline Attending Clinician Payers Payer Name Policy Type Policy Number Effective Date Expiration Date S ource Problems Condition Condition Condition Status Onset Resolution Last Treating Co mments Source Name Details Category Date Date Treatment Clinician Date F/U AND Diagnosis Active 2018-07-28 Me stafford 2ND - 14:19:00 l OPINION F/U AND 00:00: José Miguel samaniego 2ND 00 OPINION Active 07/20/2018 [facility] KNEE PAIN Diagnosis Active 2017-06-06 Memoria 06-05 08:32:00 l KNEE 00:00: Tofte PAIN 00 Active 06/05/2017 [facility] Mart BOBDC-NAUSE Diagnosis Active 2016-12-07 Memoria A, KATHERINE 10-30 15:15:00 l SATIETY 00:00: Tofte BDDC-NAUSE 00 A, EARLY SATIETY Active 10/30/2016 [facility] STOMACH Diagnosis Active 2015-032016-03-17 Me moria PAIN 04-27 13:47:00 l STOMACH 00:00: Mart PAIN 00 Active 02/26/2016 [facility] WEAKNES Diagnosis Active 2015-09-16 Me moria AND BLURY 09-15 17:12:00 l VISION WEAKNES 00:00: Tofte AND BLURY 00 VISION Active 09/16/2015 [place] BDDC - NEW Diagnosis Active 2014-032015-03-14 Memoria PT CONSULT - 14:16:00 l BDDC - 00:00: Mart NEW PT 00 CONSULT Active 03/14/2015 [facility] BDDC/ Diagnosis Active 2014-032015-04-30 Mem oria Z12.11 2- 11:17:00 l SCREENING BDDC/ 00:00: José Miguel n FOR Z12.11 00 MALIGNANT SCREENING ALICIA FOR MALIGNANT ALICIA Active 03/14/2015 [facility] PAIN IN Diagnosis Active 2014-032015-04-21 Me moria THE 05-06 15:39:00 l ABDOMEN; PAIN IN 00:00: Jada nn UPPER AND THE 00 LOWER STO ABDOMEN; UPPER AND LOWER STO Active 03/05/2015 [facility] Screening Problem Active 2019-10-10 Me rivera mammograph 08-23 21:44:33 l y 00:00: Mart (procedure Screening 00 ) mammograph y (procedure ) Active 08/23/2014 Problem 10/10/2019 Data migrated from [employer] on 10/04/14. Medical Group,[facility], Ryan Sparks [place], JESSICA Cody,[facility] [place] Vitamin D Problem Active 2019-10-10 Me moria deficiency 08-23 21:44:33 l (disorder) Vitamin 00:00: Her sellers D 00 deficiency (disorder) Active 08/23/2014 Problem 10/10/2019 Data migrated from [employer] on 10/04/14. Medical Group,[facility], Ryan Sparks [place], JESSICA Cody,M H [place] VITAMIN D Condition Active 2014-08-23 Memoria DEFICIENCY 08-23 16:24:00 l VITAMIN 00:00: Tofte D 00 DEFICIENCY Active 08/23/2014 [facility] DIARRHEA Condition Active 2014-08-23 M emoria 08-23 16:24:00 l DIARRHEA 00:00: José Miguel n 00 Active 08/23/2014 [facility] MAMMOGRAM Condition Active 2014-08-23 Memoria YEARLY 08-23 16:24:00 l SCREENING 00:00: Mart MAMMOGRAM 00 YEARLY SCREENING Active 08/23/2014 [facility] Gastritis Problem Active 2019-10-10 Me moria (disorder) 08-22 21:44:33 l 00:00: Tofte Gastritis 00 (disorder) Active 08/22/2014 Problem 10/10/2019 Data migrated from [employer] on 10/04/14. Medical Group,[facility], Clare,M H OPID [place], JESSICA Cody,M H [place] Multiple Problem Active 2019-10-10 Mem oria joint pain 08-22 21:44:33 l (finding) Multiple 00:00: Her sellers joint pain 00 (finding) Active 08/22/2014 Problem 10/10/2019 Data migrated from [employer] on 10/04/14. Medical Group,[facility], Clare,M H OPID [place], JESSICA Cody,M [facility] [place] Muscle Problem Active 2019-10-10 Memor ia pain 08-22 21:44:33 l (finding) Muscle 00:00: Jada nn pain 00 (finding) Active 08/22/2014 Problem 10/10/2019 Data migrated from [employer] on 10/04/14. [facility], Clare,M H OPID [place], JESSICA Cody,M [facility] [place] Nausea Problem Active 2019-10-10 Memor ia (finding) 08-22 21:44:33 l Nausea 00:00: Mart (finding) 00 Active 08/22/2014 Problem 10/10/2019 Data migrated from [employer] on 10/04/14. [facility] Group,[facility], Clare,M H OPID [place], JESSICA Cody,M H [place] MYALGIA Condition Active 2014-08-23 Me moria 08-22 16:24:00 l MYALGIA 00:00: Mart 00 Active 08/22/2014 [facility] PAIN IN Condition Active 2014-08-23 Me moria JOINT, 08-22 16:24:00 l MULTIPLE PAIN IN 00:00: Jada nn SITES JOINT, 00 MULTIPLE SITES Active 08/22/2014 [facility] GASTRITIS Condition Active 2014-08-23 Memoria 08-22 16:24:00 l 00:00: Mart GASTRITIS 00 Active 08/22/2014 [facility] Enterobias Problem Active 2019-10-10 M emoria is 08-08 21:44:33 l (disorder) 00:00: José Miguel n Enterobias 00 is (disorder) Active 08/08/2014 Problem 10/10/2019 Data migrated from [employer] on 10/04/14. Medical Group,[facility], Clare,M H OPID [place], JESSICA Cody,M [facility] [place] Numbness Problem Active 2019-10-10 Mem oria (finding) 08-08 21:44:33 l Numbness 00:00: José Miguel n (finding) 00 Active 08/08/2014 Problem 10/10/2019 Data migrated from [employer] on 10/04/14. [facility], Clare,M H OPID [place], JESSICA Cody,M H [place] Reactive Problem Active 2019-10-10 Mem oria hypoglycem 08-08 21:44:33 l ia Reactive 00:00: José Miguel n (disorder) hypoglycem 00 ia (disorder) Active 08/08/2014 Problem 10/10/2019 Data migrated from [employer] on 10/04/14. [facility], Clare,M H OPID [place], JESSICA Cody,M [facility] [place] HYPOGLYCEM Condition Active 2014-08-23 Memoria IA, 08-08 16:24:00 l REACTIVE 00:00: Mart HYPOGLYCEM 00 IA, REACTIVE Active 08/08/2014 [facility] ROUTINE Condition Active 2014-08-23 Me moria GENERAL 08-08 16:24:00 l MEDICAL ROUTINE 00:00: José Miguel n EXAMINATIO GENERAL 00 N AT A MEDICAL HEALTH EXAMINATIO CARE N AT A FACILITY HEALTH CARE FACILITY Active 08/08/2014 [facility] NUMBNESS Condition Active 2014-08-23 M emoria 08-08 16:24:00 l NUMBNESS 00:00: José Miguel n 00 Active 08/08/2014 [facility] PINWORMS Condition Active 2014-08-23 M emoria 08-08 16:24:00 l PINWORMS 00:00: José Miguel n 00 Active 08/08/2014 [facility] BACK PAIN, Condition Active 2013-032014-08-23 Memoria LUMBAR, 04-15 16:24:00 l WITH BACK 00:00: Mart RADICULOPA PAIN, 00 THY LUMBAR, WITH RADICULOPA THY Active 02/13/2014 [facility] CERVICAL Condition Active 2013-032014-08-23 M emoria RADICULOPA 04-15 16:24:00 l THY CERVICAL 00:00: José Miguel n RADICULOPA 00 THY Active 02/13/2014 [facility] HIP PAIN, Condition Active 2013-032014-08-23 Memoria BILATERAL 04-15 16:24:00 l HIP 00:00: Mart PAIN, 00 BILATERAL Active 02/13/2014 [facility] NAUSEA Diagnosis Active 2013-11-30 Mem oria 9- 13:51:00 l NAUSEA 00:00: Tofte 00 Active 11/30/2013 [place] ABDOMINAL Condition Active 2013-11-07 Memoria PAIN, LEFT 11-07 14:05:00 l UPPER 00:00: Mart QUADRANT ABDOMINAL 00 PAIN, LEFT UPPER QUADRANT Active 11/07/2013 [facility] ACID Condition Active 2014-08-23 Mem oria REFLUX - 16:24:00 l DISEASE ACID 00:00: Mart REFLUX 00 DISEASE Active 10/05/2013 [facility] MUSCLE Condition Active 2013-10-05 Mem oria STRAIN 10-05 14:17:34 l MUSCLE 00:00: Tofte STRAIN 00 Active 10/05/2013 [facility] ROTATOR Condition Active 2014-08-23 Co moria CUFF - 16:24:00 l (CAPSULE) ROTATOR 00:00: Herm rut SPRAIN CUFF 00 (CAPSULE) SPRAIN Active 10/05/2013 [facility] OBESITY Condition Active 2014-08-23 Me moria 6-05 16:24:00 l OBESITY 00:00: Mart 00 Active 09/01/2013 [facility] LONG-TERM Condition Active 2014-08-23 Memoria (CURRENT) 2-17 16:24:00 l USE OF 00:00: Tofte OTHER LONG-TERM 00 MEDICATION (CURRENT) S USE OF OTHER MEDICATION S Active 05/16/2013 [facility] FATIGUE Condition Active 2014-08-23 Co moria 2-01 16:24:00 l FATIGUE 00:00: Tofte 00 Active 04/30/2012 [facility] FLAT FOOT Condition Active 2014-08-23 Memoria 2-01 16:24:00 l FLAT 00:00: Mart FOOT 00 Active 04/30/2012 [facility] HAIR LOSS Condition Active 2014-08-23 Memoria 2-01 16:24:00 l HAIR 00:00: Tofte LOSS 00 Active 04/30/2012 [facility] BACK PAIN Condition Active 2014-08-23 Memoria 9- 16:24:00 l BACK 00:00: Tofte PAIN 00 Active 12/08/2011 [facility] DEFICIENCY Condition Active 2014-08-23 Memoria , VITAMIN 9- 16:24:00 l D NOS 00:00: Mart DEFICIENCY 00 , VITAMIN D NOS Active 12/08/2011 [facility] HYPOTHYROI Condition Active 2014-08-23 Memoria DISM 9-10 16:24:00 l 00:00: Mart HYPOTHYROI 00 DISM Active 12/08/2011 [facility] HEADACHE Condition Inactiv 2014-08-23 Memoria e 16:24:00 l HEADACHE José Miguel n Inactive Condition 08/23/2014 Medical Group Hypoglycem Problem Resolve 2019-10-10 Memoria ia d 21:44:33 l (disorder) José Miguel n Hypoglycem ia (disorder) Resolved Problem 10/10/2019 Medical Group,[facility], Clare,M H OPID [place], JESSICA Cody, H [place] Autoimmune Problem Active 2019-10-10 M emoria disease 21:44:33 l (disorder) José Miguel n Autoimmune disease (disorder) Active Problem 10/10/2019 Medical Group,[facility] Obesity Problem Active 2019-10-10 Marvel fauzia (disorder) 21:44:33 l Obesity Tofte (disorder) Active Problem 10/10/2019 Medical Group,[facility], Clare,M H OPID [place], JESSICA Cody,M H [place] ASTHMA Condition Active 2014-08-23 Mem oria 16:24:00 l ASTHMA Mart Active Condition 08/23/2014 Medical Group HYPERCHOLE Condition Active 2014-08-23 Memoria STEROLEMIA 16:24:00 l Mart HYPERCHOLE STEROLEMIA Active Condition 08/23/2014 Medical Group FAMILY Condition Active 2014-08-23 Mem oria HISTORY OF 16:24:00 l ASTHMA FAMILY Tofte HISTORY OF ASTHMA Active Condition 08/23/2014 Medical Group FH LUNG Condition Active 2014-08-23 Me moria CANCER 16:24:00 l FH LUNG Mart CANCER Active Condition 08/23/2014 Medical Group FH Condition Active 2014-08-23 Mem oria DEPRESSION 16:24:00 l FH Mart DEPRESSION Active Condition 08/23/2014 Medical Group FH Condition Active 2014-08-23 Mem oria DIABETES - 16:24:00 l DM FH Tofte DIABETES - DM Active Condition 08/23/2014 Medical Group FH HEART Condition Active 2014-08-23 M emoria DISEASE 16:24:00 l FH HEART José Miguel n DISEASE Active Condition 08/23/2014 Medical Group Acute Problem 2017-2018-07-25 2018-07-25 M emoria sinusitis, 0-16 14:53:54 14:53:54 l unspecifie Acute 04:40: Jada nn d sinusitis, 38 unspecifie d 01/12/2018 07/25/2018 OPID [place] Discharge Problem 2015-09-19 2015-09-19 Memoria Diagnosis: - 00:37:41 00:37:41 l Adult 05:00: Tofte hypothyroi Discharge 00 dism Diagnosis: Adult hypothyroi dism 09/16/2015 09/19/2015 [place] Discharge Problem 2013-12-03 2013-12-03 Memoria Diagnosis: 11-30 05:11:13 05:11:13 l Biliary 05:00: Tofte colic Discharge 00 Diagnosis: Biliary colic 11/30/2013 12/03/2013 [place] History of Past Illness Condition Condition Condition Status Onset Resolution Last Treating Co mments Source Name Details Category Date Date Treatment Clinician Date Diarrhea Problem Resolve 2019-10-10 2019-10-10 Memoria (finding) d 08-23 21:44:33 21:44:33 l Diarrhea 00:00: José Miguel n (finding) 00 Resolved 08/23/2014 Problem 10/10/2019 Data migrated from [employer] on 10/04/14. Medical Group,[facility],Ryan Durham OPID [place], JESSICA CodyM [place] Sinusitis Problem Resolve 2019-10-10 2019-10-10 Memoria (disorder) d 12-07 21:44:33 21:44:33 l 00:00: Mart Sinusitis 00 (disorder) Resolved 12/08/2011 Problem 10/10/2019 Data migrated from [employer] on 10/14/14.Da ta migrated from [employer] on 10/13/14. Medical Group,[facility],Ryan Durham OPID [place],PAULETTE CodyM H [place] BREAST Condition Inactiv 2013-032014-08-23 2014-08-23 Memoria PAIN, e 04-15 16:24:00 16:24:00 l BILATERAL BREAST 00:00: Jada nn PAIN, 00 BILATERAL Inactive 02/13/2014 Condition 5 [facility] ABDOMINAL Condition Inactiv 2014-08-23 2014-08-23 Memoria PAIN, e 8-11 16:24:00 16:24:00 l RIGHT 00:00: Mart UPPER ABDOMINAL 00 QUADRANT PAIN, RIGHT UPPER QUADRANT Inactive 11/07/2013 [facility] NAUSEA Condition Inactiv 2014-08-23 2014-08-23 Memoria e 7-09 16:24:00 16:24:00 l NAUSEA 00:00: Mart 00 Inactive 10/05/2013 [facility] SACROILIIT Condition Inactiv 2014-08-23 2014-08-23 Memoria IS e 6-05 16:24:00 16:24:00 l 00:00: Mart SACROILIIT 00 IS Inactive 09/01/2013 [facility] DRY SOCKET Condition Inactiv 2014-08-23 2014-08-23 Memoria e 9-10 16:24:00 16:24:00 l DRY 00:00: [place]te SOCKET 00 Inactive 12/07/2012 Condition [facility] HEARTBURN Condition Inactiv 2014-08-23 2014-08-23 Memoria e 9-06 16:24:00 16:24:00 l 00:00: Tofte HEARTBURN 00 Inactive 12/03/2012 Condition 5 [facility] INGROWN Condition Inactiv 2014-08-23 2014-08-23 Memoria NAIL e 2-01 16:24:00 16:24:00 l INGROWN 00:00: Mart NAIL 00 Inactive 04/30/2012 Condition [facility] HYPERGLYCE Condition Inactiv 2014-08-23 2014-08-23 Memoria FENG e 9-10 16:24:00 16:24:00 l 00:00: Mart HYPERGLYCE 00 FENG Inactive 12/08/2011 Condition 5 [...] ANTI DA Active U 2017-03 [facility] INFLAMMA 0-01 [place] [facility] PO 00:00: d [facility] Ciproflo Propensi Active [place] xacin ty to 06-05 [facility]i adverse 00:00: st reaction 00 s to drug Sulfa Propensi Active [place] (Sulfona ty to 06-05 Methodi mide adverse 00:00: st Antibiot reaction 00 ics) s to drug Ciprofib Propensi Active [place] rate ty to 1-10 Methodi adverse 00:00: st reaction 00 s to drug Levoflox Propensi Active [place] acin ty to - Methodi adverse 00:00: st reaction 00 s to drug Nsaids Propensi Active [place] (Non-Dragan ty to 04-08 Methodi roidal adverse 00:00: st Anti-Inf reaction 00 lammator s to y Drug) drug ANTI-INF ANTI-INF Active Memori a LAMMATOR LAMMATOR 9-10 l IES IES 00:00: Mart 00 LEVAQUIN LEVAQUIN Active Memori a 9-10 l 00:00: Mart 00 BACTRIM BACTRIM Active Memoria 9-10 l 00:00: Mart 00 ciproflo ciproflo Active Memori a xacin xacin l Tofte Levaquin Levaquin Active Memori a l Mart Food Food Active Memoria Iodine Iodine l Tofte NSAIDs NSAIDs Active Memoria l [place] Family History Family Member Diagnosis Comments Start Date Stop Date Source Natural father Heart disease [place] [facility] Natural mother Cancer [facility] Social History Social Habit Start Date Stop Date Quantity Comments Source Sex Assigned At [facility] ethodist Tobacco use and 2018-11-18 2018-11-18 Never used [facility] ethodist exposure 00:00:00 00:00:00 Alcohol intake 2018-11-18 2018-11-18 [facility] 00:00:00 non-drinker of alcohol (finding) Social History 2017-07-02 2017-07-02 [facility] amy 19:52:25 19:52:25 Smoking Status Start Date Stop Date Source Social History [facility] Medications Ordered Filled Start Stop Current Ordering Indication Dosage Frequency Signature Comments Components Source Medication Medication Date Date Medication? Clinician (SIG) Name Name nitrofurant 2018-03 Yes 100 mg = 1 Memoria oin 0-04 cap, PO, l macrocrysta 16:18: BID, X 7 He rmann ls-monohydr 00 day, # 14 ate 100 mg cap, 0 oral Refill(s), capsule Pharmacy: (Macrobid) [id number] tamsulosin Yes .4mg QD Take 1 [place] (FLOMAX) 8-22 capsule Methodi 0.4 mg 00:00: (0.[address] capsule 00 total) by mouth daily. fluconazole Yes See Memori a 150 mg oral 607 Instructio l tablet 14:07: ns, 1 tab José Miguel n 00 PO ONCE a week, # 2 tab, 0 Refill(s), Pharmacy: [facility] [place] [id number] ciclopirox Yes 1 appl, Marvel fauzia 7.7 MG/ML 6-07 TOP, BID, l Topical 14:07: X 28 day, Jada nn Cream 00 # 90 gm, 0 Refill(s), Pharmacy: [facility] [place] [id number] rifaximin Yes 550 mg = 1 Me moria 550 MG Oral 5-01 tab, PO, l Tablet 21:43: TID, # 42 José Miguel n [XIFAXAN] 00 tab, 0 Refill(s), Pharmacy: [facility] pantoprazol Yes 40 mg, PO, Memoria e 5-01 Daily, # l 18:57: 30 tab, 0 Tofte 00 Refill(s) Hyoscyamine Yes 0.125 mg = Memoria Sulfate 3-20 1 tab, PO, l 0.125 MG 21:36: QID, PRN Jada nn Disintegrat 00 Spasm, # ing Tablet 40 tab, 1 [Nulev] Refill(s), Pharmacy: [facility] [id number] Sulfamethox Yes 1 tab, PO, Memoria azole 800 3-20 BID, X 7 l MG / 21:36: day, # 14 Mart Trimethopri 00 tab, 0 m 160 MG Refill(s), Oral Tablet Pharmacy: [Bactrim] [facility] [place] [address] clonazePAM Yes 0.5 mg = 1 M emoria 0.5 mg oral 3-20 tab, PO, l tablet 21:36: Daily, PRN Jada nn 00 Anxiety, # 30 tab, 1 Refill(s) Metronidazo Yes 500 mg = 1 Memoria le 500 MG 3-18 tab, PO, l Oral Tablet 19:12: Q8H, X 10 H ermann [Flagyl] 00 day, # 30 tab, 0 Refill(s), Pharmacy: [place] [address] Amoxicillin Yes 875 mg = 1 Memoria 875 MG / 3-18 tab, PO, l Clavulanate 19:12: Q12H, X 10 Mart 125 MG Oral 00 day, # 20 Tablet tab, 0 [Augmentin Refill(s), 875-mg] Pharmacy: [place] [address] Nystatin 2017-03 No 1,000,000 Marvel fauzia [id number] UNT 0-15 unit = 2 l Oral Tablet 13:43: tab, PO, He rmann 00 BID, X 30 day, # 120 tab, 0 Refill(s), Pharmacy: [place] [address] sucralfate 2017-03 Yes 1 gm = 1 Mem oria 1 g oral 0-11 tab, PO, l tablet 19:23: QID, # 120 Jada nn 00 tab, 0 Refill(s), Pharmacy: [place] [address] benzonatate 2017-03 No 100 mg = 1 Memoria 100 MG Oral 0-09 cap, PO, l Capsule 20:31: TID, PRN José Miguel n [Tessalon 00 as needed Perles] for cough, X 7 day, # 21 cap, 0 Refill(s), Pharmacy: [place] [address] Azithromyci 2017-03 No See Memori a n 5 Day 0-09 Instructio l Dose Pack 20:26: ns, Take 2 He rmann 250 mg oral 00 tablets by tablet mouth the first day then 1 tablet by mouth days 2-5., X 5 day, # 6 tab, 0 Refill(s), Pharmacy: [facility] [place] [address] doxycycline 2017-03 Yes 100 mg = 1 Memoria hyclate 100 0-09 tab, PO, l MG Oral 20:13: BID, 0 Tofte Tablet 00 Refill(s) clonazePAM 2017-03 No 0.5 [...] day, # 30 tab, 1 Refill(s), Pharmacy: [facility] pregabalin Yes 50 mg = 1 Me moria 50 MG Oral 4-05 cap, PO, l Capsule 20:17: TID, # 90 Jada nn [Lyrica] 00 cap, 0 Refill(s) valACYclovi No 1 gm = 1 Me moria r 1 g oral 4-02 tab, PO, l tablet 18:18: Q8H, X 7 Mart 00 day, # 21 tab, 1 Refill(s), Pharmacy: [facility] valACYclovi No 1 gm = 1 Me moria r 1 g oral 3-13 tab, PO, l tablet 19:40: Q8H, X 7 Tofte 00 day, # 21 tab, 1 Refill(s), Pharmacy: [facility] polyethylen No 17 gm, PO, Memoria e glycol 3-13 Daily, X l 3350 oral 19:40: 31 day, # Her sellers powder for 00 527 gm, 1 reconstitut Refill(s), ion Pharmacy: [facility] benzonatate Yes 100 mg = 1 Memoria 100 mg oral 1-02 cap, PO, l capsule 20:29: TID, do Tofte 00 not crush or chew, X 10 day, # 30 cap, 0 Refill(s), Pharmacy: [facility] Codeine Yes 5 mL, PO, Memor ia Phosphate 2 1-02 Q12H, PRN l MG/ML / 20:29: cough, X José Miguel n Guaifenesin 00 10 day, # 20 MG/ML 100 mL, 0 Oral Refill(s) Solution [Cheratussi n] Fluticasone Yes 1 spray, Me moria propionate -02 NASAL, l 0.05 20:19: BID, # 16 Mart MG/ACTUAT 00 gm, 2 Metered Refill(s), Dose Nasal Pharmacy: [facility] [id number] Azithromyci Yes See Memori a n 5 Day 1-02 Instructio l Dose Pack 20:19: ns, Take 2 He rmann 250 mg oral 00 tablets by tablet mouth the first day then 1 tablet by mouth days 2-5., X 5 day, # 6 tab, 0 Refill(s), Pharmacy: [facility] [address] clonazePAM 2016-03 Yes 0.5 mg = 1 M emoria 0.5 mg oral -27 tab, PO, l tablet, 20:26: BID, # 60 Jada nn disintegrat 00 tab, 1 ing Refill(s) EnteraGam 2015-03 Yes EnteraGam, Co moria 2-14 See l 21:03: Instructio Tofte 00 ns, Samples given in clinic on 03/12/16. Lot [id number] exp date 10/15, # 1 box, Refill(s) [...] Chloride 6-19 1,000 l 0.154 22:33: ml/hr, Tofte MEQ/ML 00 Infuse Injectable Over: 1 Solution hr, Route: IV, 1,000, Drug form: INJ, ONCE, Priority: STAT, Dosing Weight 85.818 kg, Start date: 09/16/15 17:33:00 CDT, Duration: 1 doses or times, Stop date: 09/16/15 17:33:00 CDT Saline No Notes: Memoria Flush 0.9% 09-15 (Same as: l 22:33: BD Tofte 00 Posiflush) cholestyram 2014-03 Yes 4 gm, [...] 00 tab, 1 Tablet Refill(s), [Levsin] [facility] Ondansetron 2014-03 Yes 8 mg = 1 Me moria 8 MG 2-17 tab, PO, l Disintegrat 21:16: TID, PRN He rmann ing Tablet 00 Nausea and [Zofran] Vomiting, Dissolve tab under tongue, X 7 day, # 21 tab, 1 Refill(s), [facility] GoLYTELY 2014-03 Yes 240 mL, Memori a oral powder 2-16 PO, l for 21:56: Q10Min, # Mart reconstitut 00 1 ea, 0 ion Refill(s), [facility]: [facility] Flagyl 2014-03 Yes 500 mg = 1 Memor ia 2-16 tab, PO, l 20:40: BID, # 14 Mart 00 tab, 0 Refill(s) THYROID Yes Memoria COMPOUND 5-27 l 16:24: Mart 00 VITAMIN D Yes 1 capsule Mem oria (ERGOCALCIF 5-27 weekly x l YASH) [id number] 00:00: 12 weeks He rmann UNIT CAPS 00 OMEPRAZOLE Yes Take one Mem oria 20 MG CPDR 5-26 capsule by l 00:00: mouth Mart 00 daily ONDANSETRON Yes 1 tablet Me moria HCL 4 MG 5-26 every 8 l TABS 00:00: hours as Mart 00 needed for nausea/vom iting QSYMIA Yes 1 po qd Memoria 3.75-23 MG 5-12 l [id number] 00:00: Tofte 00 CYCLOBENZAP No 1/2-1 po Me moria RINE HCL 10 1-08 TID as l MG TABS 00:00: needed for Herm rut 00 spasms PROMETHAZIN 2013-03 No 1 SUPP MD M emoria E HCL 25 MG 2-13 Q 4 TO 6 l SUPP 00:00: HRS PRN Mart 00 N/V. TRAMADOL 2013-03 Yes 1 tablet Memor ia HCL 50 MG 1-17 every 12 l TABS 00:00: hours as Mart 00 needed for pain GABAPENTIN 2013-03 No 1 capsule Me moria 100 MG CAPS 1-17 three l 00:00: times a Tofte 00 day TRAMADOL 2013-03 No 1 tablet Memor ia HCL 50 MG 1-17 every 12 l TABS 00:00: hours as Mart 00 needed for pain TRAMADOL 2013-03 No 1 tablet Memor ia HCL 50 MG 1-17 every 12 l TABS 00:00: hours as Tofte 00 needed for pain Promethazin Yes 12.5 [...] 00 0 5 MG Oral Refill(s) Tablet [[place] 5/325] Phenergan No Notes: Do Mem oria 11-30 not give l 17:41: IV push. Mart 00 (Same as: Phenergan) Saline No Notes: Memoria Flush 0.9% 11-30 (Same as: l 17:25: BD Mart Posiflush) Carafate Yes 0 Memoria 9-03 Refill(s) l 17:13: Promethazin Yes 0 Memori a e 9-03 Refill(s) l 17:12: SUCRALFATE No 10 mL [...] tablets l MG TABS 00:00: every 6 00 hours as needed for nausea OMEPRAZOLE [...] daily as l 00:00: needed for pain MELOXICAM No 1 tablet Marvel fauzia [...] moria GM/10ML 9-10 l SUSP 00:00: ZEGERID No 1 po qd Memoria 40-1680 MG 9-06 l PACK 00:00: ALIGN No one daily Memoria 9-06 l 00:00: ZEGERID No 1 po qd Memoria 40-1680 MG 9-06 l PACK 00:00: GLUMETZA Yes 1 po qd Memori a 500 MG 1-15 l [id number] 00:00: NULEV 0.125 No 1 po q Marvel fauzia MG TBDP 9-18 8-12 prn l 00:00: ZITHROMAX No Take as Memor ia Z-MADHU 250 9-10 directed l MG TABS 00:00: Vital Signs Vital Name Observation Time Observation Value Comments Source Systolic (mm Hg) 2018-12-31 15:55:00 Marvel rial Mart Diastolic (mm Hg) 2018-12-31 15:55:00 Mem orial Mart Heart Rate 2018-12-31 15:55:00 [facility] Temperature Oral (F) 2018-12-31 15:55:00 [facility] 2018-12-31 15:55:00 160.02 cm [facility] [facility] 2018-12-31 15:55:00 [facility] BMI Calculated 2018-09-22 20:52:00 [facility] Height 2018-09-22 20:52:00 160.02 cm [facility] Weight 2018-09-22 20:52:00 [facility] Systolic (mm Hg) 2018-09-22 20:52:00 [facility] Diastolic (mm Hg) 2018-09-22 20:52:00 [facility] Heart Rate 2018-09-22 20:52:00 [facility] Temperature Oral (F) 2018-09-22 20:52:00 98.3 F [facility] Systolic (mm Hg) 2018-09-03 13:41:00 [facility] Diastolic (mm Hg) 2018-09-03 13:41:00 [facility] Temperature Oral (F) 2018-09-03 13:41:00 98.7 F [facility] Heart Rate 2018-09-03 13:41:00 [facility] Height 2018-09-03 13:41:00 160.02 cm [facility] BMI Calculated 2018-09-03 13:41:00 [facility] Weight 2018-09-03 13:41:00 [facility] Height 2018-07-28 18:46:00 160.02 cm [facility] Weight 2018-07-28 18:46:00 [facility] BMI Calculated 2018-07-28 18:46:00 [facility] Respitory Rate 2018-07-28 18:46:00 [facility] Heart Rate 2018-07-28 18:46:00 [facility] Systolic (mm Hg) 2018-07-28 18:46:00 [facility] Diastolic (mm Hg) 2018-07-28 18:46:00 [facility] Weight 2018-06-14 18:55:00 [facility] BMI Calculated 2018-06-14 18:55:00 [facility] Height 2018-06-14 18:55:00 160.02 cm [facility] Systolic (mm Hg) 2018-06-14 18:55:00 [facility] Diastolic (mm Hg) 2018-06-14 18:55:00 [facility] Temperature Oral (F) 2018-06-14 18:55:00 97.7 F [facility] Heart Rate 2018-06-14 18:55:00 [facility] Temperature Oral (F) 2018-01-05 20:02:00 99 F [facility] Heart Rate 2018-01-05 20:02:00 [facility] Height 2018-01-05 20:02:00 160.02 cm [facility] Weight 2018-01-05 20:02:00 [facility] BMI Calculated 2018-01-05 20:02:00 [facility] Systolic (mm Hg) 2018-01-05 20:02:00 [facility] Diastolic (mm Hg) 2018-01-05 20:02:00 [facility] BMI Calculated 2017-10-06 19:44:00 [facility] Weight 2017-10-06 19:44:00 [facility] Height 2017-10-06 19:44:00 160.02 cm [facility] Heart Rate 2017-10-06 19:44:00 [facility] Temperature Oral (F) 2017-10-06 19:44:00 98.4 F [facility] Systolic (mm Hg) 2017-10-06 19:44:00 [facility] Diastolic (mm Hg) 2017-10-06 19:44:00 [facility] Temperature Oral (F) 2017-07-02 19:47:00 98.4 F [facility] BMI Calculated 2017-07-02 19:47:00 [facility] Height 2017-07-02 19:47:00 160.02 cm [facility] Systolic (mm Hg) 2017-07-02 19:47:00 [facility] Diastolic (mm Hg) 2017-07-02 19:47:00 [facility] Weight 2017-07-02 19:47:00 [facility] Systolic (mm Hg) 2017-06-09 18:55:00 [facility] Diastolic (mm Hg) 2017-06-09 18:55:00 [facility] Height 2017-06-09 18:55:00 160.02 cm [facility] Weight 2017-06-09 18:55:00 [facility] BMI Calculated 2017-06-09 18:55:00 [facility] Heart Rate 2017-06-09 18:55:00 [facility] Temperature Oral (F) 2017-06-09 18:55:00 98.3 F [facility] BMI Calculated 2017-03-31 19:54:00 [facility] Weight 2017-03-31 19:54:00 [facility] Height 2017-03-31 19:54:00 160.02 cm [facility] Temperature Oral (F) 2017-03-31 19:54:00 99.0 F [facility] Systolic (mm Hg) 2017-03-31 19:54:00 [facility] Diastolic (mm Hg) 2017-03-31 19:54:00 [facility] Weight 2017-02-23 19:45:00 [facility] BMI Calculated 2017-02-23 19:45:00 [facility] Height 2017-02-23 19:45:00 160.02 cm [facility] Systolic (mm Hg) 2017-02-23 19:45:00 [facility] Diastolic (mm Hg) 2017-02-23 19:45:00 [facility] Temperature Oral (F) 2017-02-23 19:45:00 97.9 F [facility] Systolic (mm Hg) 2016-03-12 19:37:00 [facility] Diastolic (mm Hg) 2016-03-12 19:37:00 [facility] Heart Rate 2016-03-12 19:37:00 [facility] Weight 2016-03-12 19:37:00 [facility] BMI Calculated 2016-03-12 19:37:00 [facility] Height 2016-03-12 19:37:00 160.02 cm [facility] Respitory Rate 2016-03-12 19:37:00 [facility] Respitory Rate 2015-09-16 23:31:00 [facility] Heart Rate 2015-09-16 23:31:00 [facility] Systolic (mm Hg) 2015-09-16 23:31:00 [facility] Diastolic (mm Hg) 2015-09-16 23:31:00 [facility] BMI Calculated 2015-09-16 21:59:00 [facility] Weight 2015-09-16 21:59:00 [facility] Temperature Oral (F) 2015-09-16 21:59:00 98.0 F [facility] Heart Rate 2015-09-16 21:59:00 [facility] Respitory Rate 2015-09-16 21:59:00 [facility] Height 2015-09-16 21:59:00 160.02 cm [facility] Systolic (mm Hg) 2015-09-16 21:59:00 [facility] Diastolic (mm Hg) 2015-09-16 21:59:00 [facility] BMI Calculated 2015-03-14 20:38:00 [facility] Weight 2015-03-14 20:38:00 [facility] Height 2015-03-14 20:38:00 160.02 cm [facility] Heart Rate 2015-03-14 20:38:00 [facility] Temperature Oral (F) 2015-03-14 20:38:00 97.9 F [facility] Systolic (mm Hg) 2015-03-14 20:38:00 [facility] Diastolic (mm Hg) 2015-03-14 20:38:00 [facility] Height 2014-08-23 20:15:21 [facility] Temperature Oral (F) 2014-08-23 20:15:21 97.9 F [facility] Systolic (mm Hg) 2014-08-23 20:15:21 [facility] Diastolic (mm Hg) 2014-08-23 20:15:21 [facility] Heart Rate 2014-08-23 20:15:21 [facility] Weight 2014-08-23 20:15:21 [facility] Height 2014-08-22 18:24:51 [facility] Weight 2014-08-22 18:24:51 [facility] Temperature Oral (F) 2014-08-22 18:24:51 96.2 F [facility] Systolic (mm Hg) 2014-08-22 18:24:51 [facility] Diastolic (mm Hg) 2014-08-22 18:24:51 [facility] Heart Rate 2014-08-22 18:24:51 [facility] Height 2014-08-08 13:49:47 [facility] Weight 2014-08-08 13:49:47 [facility] Temperature Oral (F) 2014-08-08 13:49:47 97.5 F [facility] Systolic (mm Hg) 2014-08-08 13:49:47 [facility] Diastolic (mm Hg) 2014-08-08 13:49:47 [facility] Heart Rate 2014-08-08 13:49:47 [facility] Weight 2014-04-06 19:44:51 [facility] Temperature Oral (F) 2014-04-06 19:44:51 96.9 F [facility] Systolic (mm Hg) 2014-04-06 19:44:51 [facility] Diastolic (mm Hg) 2014-04-06 19:44:51 [facility] Heart Rate 2014-04-06 19:44:51 [facility] Height 2014-02-13 17:13:31 [facility] Weight 2014-02-13 17:13:31 [facility] Temperature Oral (F) 2014-02-13 17:13:31 98.4 F [facility] Heart Rate 2014-02-13 17:13:31 [facility] Systolic (mm Hg) 2014-02-13 17:13:31 [facility] Diastolic (mm Hg) 2014-02-13 17:13:31 [facility] Systolic (mm Hg) 2013-11-30 21:22:00 [facility] Diastolic (mm Hg) 2013-11-30 21:22:00 [facility] Respitory Rate 2013-11-30 21:22:00 [facility] Heart Rate 2013-11-30 21:22:00 [facility] Systolic (mm Hg) 2013-11-30 19:00:00 [facility] Diastolic (mm Hg) 2013-11-30 19:00:00 [facility] Heart Rate 2013-11-30 19:00:00 [facility] Respitory Rate 2013-11-30 19:00:00 [facility] Weight 2013-11-30 17:06:00 [facility] Height 2013-11-30 17:06:00 160.02 cm [facility] BMI Calculated 2013-11-30 17:06:00 [facility] Temperature Oral (F) 2013-11-30 17:06:00 98.2 F [facility] Respitory Rate 2013-11-30 17:06:00 [facility] Heart Rate 2013-11-30 17:06:00 [facility] Diastolic (mm Hg) 2013-11-30 17:06:00 [facility] Systolic (mm Hg) 2013-11-30 17:06:00 [facility] Height 2013-11-21 16:45:30 [facility] Weight 2013-11-21 16:45:30 [facility] Systolic (mm Hg) 2013-11-21 16:45:30 [facility] Diastolic (mm Hg) 2013-11-21 16:45:30 [facility] Heart Rate 2013-11-21 16:45:30 [facility] Weight 2013-11-07 16:51:30 [facility] Temperature Oral (F) 2013-11-07 16:51:30 98.2 F [facility] Systolic (mm Hg) 2013-11-07 16:51:30 [facility] Diastolic (mm Hg) 2013-11-07 16:51:30 [facility] Heart Rate 2013-11-07 16:51:30 [facility] Weight 2013-10-25 18:37:21 [facility] Temperature Oral (F) 2013-10-25 18:37:21 97.9 F [facility] Respitory Rate 2013-10-25 18:37:21 [facility] Heart Rate 2013-10-25 18:37:21 [facility] Systolic (mm Hg) 2013-10-25 18:37:21 [facility] Diastolic (mm Hg) 2013-10-25 18:37:21 [facility] Weight 2013-10-05 19:17:34 [facility] Temperature Oral (F) 2013-10-05 19:17:34 97.7 F [facility] Heart Rate 2013-10-05 19:17:34 [facility] Systolic (mm Hg) 2013-10-05 19:17:34 [facility] Diastolic (mm Hg) 2013-10-05 19:17:34 [facility] Temperature Oral (F) 2013-09-01 20:40:23 98.3 F [facility] Weight 2013-09-01 20:40:23 [facility] Systolic (mm Hg) 2013-09-01 20:40:23 [facility] Diastolic (mm Hg) 2013-09-01 20:40:23 [facility] Heart Rate 2013-09-01 20:40:23 [facility] Weight 2012-12-07 15:01:11 [facility] Temperature Oral (F) 2012-12-07 15:01:11 97.4 F [facility] Systolic (mm Hg) 2012-12-07 15:01:11 [facility] Diastolic (mm Hg) 2012-12-07 15:01:11 [facility] Heart Rate 2012-12-07 15:01:11 [facility] Systolic (mm Hg) 2012-12-03 14:46:01 [facility] Diastolic (mm Hg) 2012-12-03 14:46:01 [facility] Heart Rate 2012-12-03 14:46:01 [facility] Temperature Oral (F) 2012-12-03 14:46:01 98.0 F [facility] Weight 2012-12-03 14:46:01 [facility] Weight 2012-07-29 20:41:00 [facility] Temperature Oral (F) 2012-07-29 20:41:00 97.2 F [facility] Systolic (mm Hg) 2012-07-29 20:41:00 [facility] Diastolic (mm Hg) 2012-07-29 20:41:00 [facility] Heart Rate 2012-07-29 20:41:00 [facility] Weight 2012-04-30 15:58:31 [facility] Systolic (mm Hg) 2012-04-30 15:58:31 [facility] Diastolic (mm Hg) 2012-04-30 15:58:31 [facility] Heart Rate 2012-04-30 15:58:31 [facility] Temperature Oral (F) 2012-04-30 15:58:31 96.6 F [facility] Height 2011-12-08 14:51:31 [facility] Weight 2011-12-08 14:51:31 [facility] Temperature Oral (F) 2011-12-08 14:51:31 97.5 F [facility] Systolic (mm Hg) 2011-12-08 14:51:31 [facility] Diastolic (mm Hg) 2011-12-08 14:51:31 [facility] Heart Rate 2011-12-08 14:51:31 [facility] Procedures Procedure Date / Time Performed Performing Clinician [facility] jody Removal of gallbladder 2013-03-30 06:00:00 David lopez [facility] colonoscopy 2008-03-30 17:58:11 [facility] vaginal Pap smear results 2008-03-30 15:51:31 Co morial [facility] mammogram 1999-03-30 15:51:31 [facility] Bilateral tubal ligation [facility] Carpal tunnel release [facility] Plan of Care Planned Activity Planned Date Details Comments Source Future Scheduled 2019-10-29 INFLUENZA VACCINE [facility] 00:00:00 [code = INFLUENZA VACCINE] Future Scheduled 2006 BREAST CANCER [facility] 00:00:00 SCREENING [code = BREAST CANCER SCREENING] Future Scheduled 2006 COLONOSCOPY SCREENING [facility] Test 00:00:00 [code = COLONOSCOPY SCREENING] Future Scheduled 2006 SHINGLES VACCINES [facility] 00:00:00 (#1) [code = SHINGLES VACCINES (#1)] Future Scheduled 1977 Screening for [facility] 00:00:00 malignant neoplasm of cervix (procedure) [code = 473538622] Encounters Start End Encounter Admission Attending Care Care Encounter Source Date/Time Date/Time Type Type Clinicians Facility Department ID 2019-10-07 2019-10-08 Outpatient [facility] MG [id number] 15:30:17 15:30:17 68 2019-10-07 2019-10-07 [place] [facility] [id number] 15:30:00 15:30:00 Carlos 27 2019-01-03 2019-01-04 Outpatient [facility] [id number] 17:03:00 17:03:00 67 2018-12-31 2018-12-31 Outpatient Sustache, [facility] MH[facility] [id number] 11:00:00 23:59:59 Carlos 26 2018 2018-09-28 Outpatient MG MG [id number] 09:45:47 09:45:47 65 2018-09-24 2018-09-25 Outpatient [facility] MG [id number] 12:35:02 12:35:02 64 2018-09-22 2018-09-23 Outpatient [facility] [id number] 16:49:52 16:49:52 63 2018-09-22 2018-09-22 Outpatient Sustache, [facility] MH[facility] [id number] 13:30:00 23:59:59 Carlos 25 2018-09-06 2018-09-07 Outpatient [facility] [id number] 08:31:31 08:31:31 61 2018-09-03 2018-09-03 Outpatient Sustache, [facility] MH[facility] [id number] 09:00:00 23:59:59 Carlos 24 2018-07-28 2018-07-28 Outpatient Kamron, [facility] [id number] 01:39:00 23:59:00 Epifanio Velasquez 2018-07-28 2018-07-28 Outpatient [facility] MH [id number] [facility] 01:39:00 01:39:00 2018-06-16 2018-06-17 Outpatient [facility] MH[facility] [id number] 15:32:41 15:32:41 59 2018-06-14 2018-06-14 Outpatient Sustache, [facility] [id number] 14:10:00 23:59:59 Carlos 23 2018-01-19 2018-01-20 Outpatient [facility] [id number] 11:25:00 23:59:59 38 2018-01-08 2018-01-09 Outpatient [facility] [id number] 08:55:00 23:59:59 37 2018-01-08 2018-01-09 Outpatient [facility] [id number] 08:54:00 23:59:59 36 2018-01-05 2018-01-06 Outpatient [facility] [id number] 08:32:00 23:59:59 35 2018-01-05 2018-01-05 Outpatient Sustache, [facility] [id number] 14:50:00 23:59:59 Carlos 22 2018-01-05 2018-01-05 Outpatient Alas, [id number]. 4 [id number] 16:42:00 23:59:00 Mercedez [id number] 3.615.29 5.29 2017-12-30 2017-12-31 Outpatient [facility] [id number] 15:39:00 23:59:59 34 2017-12-30 2017-12-31 Outpatient [facility] [id number] 10:11:00 23:59:59 33 2017-11-06 2017-11-07 Outpatient [facility] [id number] 16:20:00 23:59:59 32 2017-10-06 2017-10-06 Outpatient Sustache, [facility] [id number] 14:30:00 23:59:59 Carlos 21 2017-07-28 2017-07-29 Outpatient [facility] [id number] 15:09:00 23:59:59 31 2017-07-28 2017-07-29 Outpatient [facility] [id number] 15:09:00 23:59:59 31 2017-07-27 2017-07-28 Outpatient [facility] [id number] 08:56:00 23:59:59 30 2017-07-27 2017-07-28 Outpatient [facility] [id number] 08:56:00 23:59:59 30 2017-07-02 2017-07-02 Outpatient Sustache, [facility] MH[facility] [id number] 14:50:00 23:59:59 Carlos 20 2017-06-29 2017-06-29 Outpatient Sustache, [facility] [id number] 14:50:00 14:50:00 Carlos 19 2017-06-26 2017-06-27 Outpatient [facility] [id number] 14:14:00 23:59:59 27 2017-06-15 2017-06-16 Outpatient [facility] [id number] 14:19:00 23:59:59 26 2017-06-09 2017-06-09 Outpatient Sustache, [facility] [id number] 13:50:00 23:59:59 Carlos 18 2017-06-05 2017-06-06 Outpatient [facility] [id number] 11:21:00 23:59:59 25 2017-06-05 2017-06-05 Outpatient Danyn, [facility] [id number] 20:21:00 20:28:00 Zeb Damon 17 2017-06-05 2017-06-05 Outpatient Danny, [facility] [id number] 20:21:00 20:28:00 Zeb Damon 17 2017-03-31 2017-03-31 Outpatient Sustache, [facility] [id number] 13:50:00 23:59:59 Carlos 17 2017-03-12 2017-03-13 Outpatient [facility] [id number] 14:29:00 23:59:59 24 2017-03-09 2017-03-10 Outpatient [facility] [id number] 08:24:00 23:59:59 23 2017-02-23 2017-02-23 Outpatient Sustache, [facility] [id number] 13:50:00 23:59:59 Carlos 16 2016-03-25 2016-03-25 Outpatient Santee, [id number]. [id number]. [id number] 09:58:00 23:59:00 Epifanio [id number] Velasquez 3.615.35 5.35 2016-03-12 2016-03-12 Outpatient Kamron, [facility] [id number] 13:31:00 23:59:00 Epifanio La Ron 2015-09-16 2015-09-16 Outpatient Deena, [facility] SL [id number] 16:47:00 19:06:00 Michelle Filiberto Gallardo 2015-04-30 2015-04-30 Outpatient Kamron, [facility] [id number] 11:15:00 14:00:00 Epifanio Kelsy Ron 2015-03-14 2015-03-14 Outpatient Kamron, [facility] [id number] 14:09:00 23:59:00 Epifanio Valentina Ron 2015-02-23 2015-02-23 Outpatient Ann Marie, 2.16.840. [id number]. [id number] 06:58:00 23:59:00 Sb Ramos [id number] 3.615.29 5.29 2013-11-30 2013-11-30 Outpatient Desean Mosquera [facility] [id number] 11:56:00 17:05:00 00 Results Test Description Test Time Test Comments Results Result [facility] e Comments SURG 2018-01-01 11:22:00 RUN DATE: 01/01/18 [facility] - LAB *LIVE* PAGE 1 RUN TIME: 1122 Specimen Inquiry RUN USER: INTERFACE PAT IENT: BOZENA MARSH LOC: [facility] U #: [id number] AGE/SX: 62/F ROOM: RE12/31/17REG DR: Raz Gaspar III : 57 BED: DIS: [place]US[place] [facility] [place] SPEC #: [id number] RECD: 12/31/17 STATUS: HENRY DANNY #: [id number] SHYANN: 12/31/17 [facility] DR: Raz Gaspar III, MD ENTERED: 12/31/17 SP TYPE: SURG OTHR DR: No Primary or Family PhysicianORDERED: SURG PATH LVL 1, SURG PATH LVL 4 COPIES TO: No Primary [place] [id number] [facility] [address] [place], [place] [address] HISTOLOGY: TISSUE ID BLK PCS ANAIS LEV PROCEDURE DISPOSITION ____ ___ ___ ___ NASAL TURBINATE A 1 1 NASAL SEPTUM, N B 1 1 PROCEDURES: SURG PATH LVL 1 (01/01/18-1103) SURG PATH LVL 4 (01/01/18) TISSUES: A. NASAL TURBINATE, NOS - BILATERAL INFERIOR TURBINATES B. NASAL SEPTUM, NOS - SEPTUM CPT CODES CPT CODE(S): 78115 , 39894 , , , , , FINAL DIAGNOSIS A. Inferior turbinate, bilateral, endoscopic sinus surgery: SINUS CONTENTS CONSISTENT WITH CHRONIC SINUSITIS B. Nasal septum, septoplasty: BONE AND CARTILAGE (GROSS ONLY) GROSS DESCRIPTION A. Bilateral inferior turbinates. Received in formalin are irregular fragments of sauceda-brown soft tissue admixed with dark brown blood clots, 2.7 x 1.8 x 1.0 cm in aggregate. Supervisor Liquefaction sections submitted as A. B. Septum. Received in formalin are multiple irregular fragments of cartilage CONTINUED ON NEXT PAGE RUN DATE: 01/01/18 [facility] - LAB *LIVE* PAGE 2 RUN TIME: 1122 Specimen Inquiry RUN USER: INTERFACE MERRICK Glez #: [facility]:[id number] PATIENT: BOZENA MARSH #[id number] (Continued)-------- -------- GROSS DESCRIPTION (Continued) and bones, 5.0 x 3.5 x 0.7 cm in aggregate. The specimen is photographed for gross identification only. ba/nr Grossing performed at [facility] Pathology, [facility] [facility], [address], [place] [address]. Residential Monitor: Ralph Dash M.D. MICROSCOPIC DESCRIPTION A. Bilateral inferior turbinates. Fragments of respiratory epithelium lined mucosa. There are benign mucus glands and a chronic inflammatory infiltrate. Fragments of unremarkable cartilage and bone present. No evidence of malignancy. B. Septum. For gross identification only. /doug Signed SIGNATURE ON FILE Emmanuel Chatterjee 01/01/18 1122 END OF REPORT CARDIAC ENZYMES 2015-09-16 <0.02 [facility] 22:47:00 [facility] CARDIAC ENZYMES 2015-09-16 <0.5 [facility] 22:47:00 [facility] CARDIAC ENZYMES 2015-09-16 54 [facility] 22:47:00 [facility] CARDIAC ENZYMES 2015-09-16 <0.9 [facility] 22:47:00 [facility] CHEM PANEL 2015-09-16 7.0 [facility] 22:47:00 [facility] CHEM PANEL 2015-09-16 71 [facility] 22:47:00 [facility] CHEM PANEL 2015-09-16 3.3 [facility] 22:47:00 [facility] CHEM PANEL 2015-09-16 1.1 [facility] 22:47:00 [facility] CHEM PANEL 2015-09-16 0.8 [facility] 22:47:00 [facility] CHEM PANEL 2015-09-16 77 [facility] 22:47:00 [facility] CHEM PANEL 2015-09-16 12.7 [facility] 22:47:00 [facility] CHEM PANEL 2015-09-16 18 [facility] 22:47:00 [facility] CHEM PANEL 2015-09-16 3.7 [facility] 22:47:00 [facility] CHEM PANEL 2015-09-16 24 [facility] 22:47:00 [facility] CHEM PANEL 2015-09-16 18 [facility] 22:47:00 [facility] CHEM PANEL 2015-09-16 108 [facility] 22:47:00 [facility] CHEM PANEL 2015-09-16 3.7 [facility] 22:47:00 [facility] CHEM PANEL 2015-09-16 28 [facility] 22:47:00 [facility] CHEM PANEL 2015-09-16 8.6 [facility] 22:47:00 [facility] CHEM PANEL 2015-09-16 145 [facility] 22:47:00 [facility] CHEM PANEL 2015-09-16 0.90 [facility] 22:47:00 [facility] CHEM PANEL 2015-09-16 16 [facility] 22:47:00 [facility] CHEM PANEL 2015-09-16 102 [facility] 22:47:00 [facility] HEMATOLOGY 2015-09-16 8.8 [facility] 22:47:00 [facility] HEMATOLOGY 2015-09-16 5.39 [facility] 22:47:00 [facility] HEMATOLOGY 2015-09-16 88.0 [facility] 22:47:00 [facility] HEMATOLOGY 2015-09-16 15.6 [facility] 22:47:00 [facility] HEMATOLOGY 2015-09-16 22:47:00 Test Item Value Reference Range Interpretation Comme nts MCH (test code = MCH) 29.0 pg 27.0-31.0 [facility] [id number] 22:47:009.5[facility] 2015-09-16 22:47:07309Ysygddax WawdseiVGTSYTSDMU5517-29-81 22:47:0033.0[facility] PpuesjdXANHOQLKMI4986-42-24 22:47:0013.3[facility] EvkvfdlNJFLGYRJRH5832-80-32 22:47:0047.5[facility] SdydlneTNUZMUJRTK8695-01-44 22:47:000.5[facility] YRMIVHJSXG2935-47-36 22:47:001.1[facility] NpakqadREWIDAEHFP8277-52-57 22:47:006.3 [facility] VgdvgqeWTINEGIACB5827-98-10 22:47:0054.0[facility] 2015-09-16 22:47:0038.1[facility] VltzmrkIFPRKAFEBB1193-29-71 22:47:000.0[facility] ZdvswkoYLMJXILCBD6861-44-19 22:47:000.1[facility] XynahwcDVCYFPDNDP2302-51-58 22:47:000.6[facility] VtxiopuSCDTLTMEJH8216-75-11 22:47:003.4[facility] TUOCEKPXAR6292-78-57 22:47:004.7[facility] AND [id number] 22:47:00None Seen (09/16/15 5:47 PM)[facility] [id number] 22:47:00Negative (09/16/15 5:47 PM)[facility] [id number] 22:47:00Negative (09/16/15 5:47 PM)[facility] UEHJK2965-07-77 22:47:00None Seen (09/16/15 5:47 PM)[facility] [id number] 22:47:00Performed (09/16/15 5:47 PM)[facility] [id number] 22:47:00Negative (09/16/15 5:47 PM)[facility] [id number] 22:47:00Negative (09/16/15 5:47 PM)[facility] [id number] 22:47:00 Test Item Value Reference Range Interpretation Comments UA pH (test code = UA pH) 6.0 1 5.0-8.0 [facility] [id number] 22:47:00Negative *NA*(09/16/15 5:47 PM) [facility] [id number] 22:47:00Negative *NA*(09/16/15 5:47 PM) [facility] [id number] 22:47:000.2[facility] [id number] 22:47:00Trace *ABN*(09/16/15 5:47 PM)[facility] [id number] 22:47:00Clear (09/16/15 5:47 PM)[facility] STOOL 2015-09-16 22:47:00Yellow *NA*(09/16/15 5:47 PM)[facility] STOOL 2015-09-16 22:47:00 Test Item Value Reference Range Interpretation Comments UA Spec Grav (test code = UA Spec 1.025 1 Grav) [facility] VtwmpkhZzawffhc7420-17-55 21:24:000.6 U/mLMemorial HermannChemistry 2014-08-22 19:06:000.96[facility] NmxchrlVcnpknlamz2213-60-36 19:06:001[facility] PxdpiolAvhnosiy2179-39-58 19:06:00NegativeMem[facility]annUR[facility] ST[facility]OL 2013-11-30 19:00:45Negative *NA*(11/30/13 2:00 PM)[facility] 2013-11-30 19:00:45Trace *ABN*(11/30/13 2:00 PM)[facility] 2013-11-30 19:00:450.2[facility] [id number] 19:00:45 Test Item Value Reference Range Interpretation Comments UA pH (test code = UA pH) 6.0 1 5.0-8.0 [facility] [id number] 19:00:45Negative *NA*(11/30/13 2:00 PM) [facility] [id number] 19:00:45Negative (11/30/13 2:00 PM) [facility] [id number] 19:00:45Negative (11/30/13 2:00 PM) [facility] [id number] 19:00:45Clear (11/30/13 2:00 PM)[facility] [id number] 19:00:45 Test Item Value Reference Range Interpretation Comments UA Spec Grav (test code = UA Spec 1.020 1 Grav) [facility] [id number] 19:00:45Yellow *NA*(11/30/13 2:00 PM) [facility] [id number] 19:00:45Negative (11/30/13 2:00 PM) [facility] [id number] 19:00:45Negative (11/30/13 2:00 PM) [facility]annCHE[facility] [id number] 17:35:0016[facility]annCHEM PANEL 2013-11-30 17:35:0014.0[facility]CHE[facility] BGYEP5274-44-04 17:35:003.9[facility]annCHE[facility] FTFIA9914-63-35 17:35:001.1[facility]annCHE[facility] WSQSZ1362-99-32 17:35:0071[facility]annCHE[facility] MGLCL5966-57-62 17:35:0031[facility]annCHE[facility] YXUWB2612-98-78 17:35:0025[facility]annCHE[facility] NKUHI3468-46-60 17:35:0093 [facility] SFCON5863-93-13 17:35:000.9[facility]annCHE[facility] PANEL 2013-11-30 17:35:009.5[facility]CHE[facility] JPJCE1326-28-29 17:35:008.0[facility]annCHE[facility] IUQKZ9645-15-35 17:35:004.1[facility]annCHE[facility] RXLTS5431-30-81 17:35:0024[facility]annCHE[facility] EJXRE8868-89-01 17:35:98697Lugvjayf HermannCHEM WFOXV3057-59-83 17:35:000.9[facility]annCHE[facility] KVSEB0428-80-11 17:35:73017 [facility]CHE[facility] NHBDZ0521-46-26 17:35:004.0[facility]annCHE[facility] PANEL 2013-11-30 17:35:0014[facility]annCHE[facility] [id number] 17:35:0092[facility]annCHEM [id number] 17:35:64565Jbnceryt HermannCHEM YUCIN0532-55-02 17:35:0035[facility] PlhvykfMPZBNCHTSS6632-28-82 17:35:0034.0[facility] ZVBCPBRVKR9091-51-22 17:35:0012.7[facility] QdbtjhtFZHUHSBWSM4231-48-48 17:35:00 236[facility] ZhmjhemLFWCQPMSAM4247-93-66 17:35:009.6[facility]annHEMATOLOGY 2013-11-30 17:35:0016.9[facility] ApqzxxkUBTQIQJSBD2663-95-83 17:35:007.1[facility] VkpohgiUOZCJLFNVI6806-81-56 17:35:005.64[facility] PlueyizTDXFOYVQXK2232-98-14 17:35:0049.7[facility] OwgizoeTPHKQARORX0822-17-19 17:35:00 Test Item Value Reference Range Interpretation Comments MCH (test code = MCH) 29.9 pg 27.0-31.0 [facility] FntjxiwBBFNWAUUXV0257-04-04 17:35:0088.0[facility] HermannHEMATOLOGY 2013-11-30 17:35:000.0[facility] AntcbeyEJXMOJJMKX4925-58-76 17:35:004.8[facility] FvvmpqvIFOGKEHMBM9636-25-58 17:35:000.4[facility] TrvagozIMCLONONFT1464-04-83 17:35:000.5[facility] UewbdysVNQUCBBABM8383-42-90 17:35:000.0[facility] Tofte FBVXGTCFII5410-12-87 17:35:000.7[facility] HogofplGNZSZOVNKP4707-03-25 17:35:001.8 [facility] NrouiqiYRNJHCFDOP7594-73-65 17:35:0067.7[facility] HermannHEMATOLOGY 2013-11-30 17:35:005.7[facility] UmqgtdlGARTBJIPTB0022-11-74 17:35:0025.4[facility] CxzzsiqGSGQGAOWEK6789-18-30 17:35:00Negative (11/30/13 12:35 PM)[facility] Rfmlcepu0254-54-71 19:05:000.6 U/mLMemorial BvhnizoPbbiqnhw4355-30-69 19:05:00 0.6 U/mLMemorial HermannOb/Jda0821-76-25 15:51:31NormalMemorial HermannOb/Senior Research Associate 2008-03-30 15:51:31NormalMemorial HermannOb/Bsu5782-19-15 15:51:31NormalMemorial HermannOb/Ulc6116-61-03 15:51:31NormalMemorial XvjkqbuDyobairfm8488-68-91 15:51:31NormalMemorial CxpuyaoXodfeggyl5379-34-88 15:51:31NormalMemorial Mart
[2020-01-07] MEDS ORDERED: ASPIRIN 81 MG CHEWABLE TABLET ONE (23:37)
[2020-01-07] MEDS ORDERED: FAMOTIDINE 20 MG/2 ML VIAL IV ONE (23:37)
[2020-01-07] MEDS ORDERED: dexAMETHasone 4 MG/ML VIAL ONE (23:41)
[2020-01-08 00:14] LABS: Absolute Lymphocytes (CBC) 2.4 K/uL (0.7-4.9); Basophils % 0.9 % (0-1.3); Hematocrit 46.7 % (36.0-45.0); Lymphocytes % 34.1 % (15.3-44.8); MPV 9.8 fL (7.6-11.3)
[2020-01-08 00:25] LABS: Protime INR 0.96
[2020-01-08 00:34] LABS: ALT/SGPT 32 U/L (12-78); AST/SGOT 24 U/L (15-37); Albumin 4.3 g/dL (3.4-5.0); Alkaline Phosphatase 88 U/L (45-117); BUN Blood Urea Nitrogen 11 mg/dL (7-18); Bicarbonate 27 mmol/L (21-32); Bilirubin Direct 0.2 mg/dL (0-0.2); Bilirubin Total 1.1 mg/dL (0.2-1.0); Glucose Level 86 mg/dL (74-106); Magnesium 2.1 mg/dL (1.8-2.4); NT PRO-BNP 31 pg/mL (<125); Potassium 3.5 mmol/L (3.5-5.1); Protein, Total 7.5 g/dL (6.4-8.2); Sodium Level 142 mmol/L (136-145); Troponin (Emerg Dept Use Only) < 0.02 ng/mL (0.0-0.045)
[2020-01-08 00:40] LABS: Ferritin 75.3 ng/mL (8-388); Lipase 166 U/L (73-393)
[2020-01-08 00:41] LABS: C-Reactive Protein < 2.90 mg/L (<3.00)
--- NOTE | 2020-01-08 01:33 | EDPHYS ---
Physician Documentation [facility] Name: Tracey Rodriguez Age: 64 yrs Sex: Female : 1955 Arrival Date: 01/07/2020 Time: 22:44 Bed 8 Private MD: ED Physician Oh Borrego HPI: 01/06 23:32 This 64 yrs old Female presents to ER via Wheelchair with complaints of Chest snw Pain, Back Pain. 23:32 Onset: The symptoms/episode began/occurred gradually, 2 day(s) ago, and became worse snw and became persistent. Associated signs and symptoms: Pertinent positives: chest pain, myalgias. Modifying factors: The patient symptoms are alleviated by nothing. The patient has not experienced similar symptoms in the past. The patient has been recently seen by a physician: with different complaint(s), and apparently was diagnosed with CoVid 19. Pt dx CoVid 19 4 weeks ago. Historical: - Allergies: 22:58 anti-inflammatory (all); jb4 22:58 Ciprofloxacin; jb4 22:58 fluoroquinolones; jb4 22:58 Levaquin; jb4 22:58 Sulfa (Sulfonamide Antibiotics); jb4 - Home Meds: 22:58 None [Active]; jb4 - PMHx: 22:58 Diverticulitis; hiatal hernia; Hypoglycemic; Hypothyroidism; ibs; throat erosion; UTI; jb4 - PSHx: 22:58 Tubal ligation; Cholecystectomy; jb4 - Immunization history:: Adult Immunizations not up to date. - Social history:: Smoking status: Patient denies any tobacco usage or history of. Patient/guardian denies using alcohol, street drugs. ROS: 23:31 Eyes: Negative for injury, pain, redness, and discharge, ENT: Negative for injury, snw pain, and discharge, Neck: Negative for injury, pain, and swelling. 23:31 Abdomen/GI: Negative for abdominal pain, nausea, vomiting, diarrhea, and constipation, Back: Negative for injury and pain, : Negative for injury, bleeding, discharge, and swelling, MS/Extremity: Negative for injury and deformity, Skin: Negative for injury, rash, and discoloration, Neuro: Negative for headache, weakness, numbness, tingling, and seizure, Psych: Negative for depression, anxiety, suicide ideation, homicidal ideation, and hallucinations. 23:31 Constitutional: Positive for body aches, malaise. 23:31 Cardiovascular: Positive for chest pain, palpitations. 23:31 Respiratory: Positive for shortness of breath, at rest. Exam: 23:31 Constitutional: This is a well developed, well nourished patient who is awake, alert, snw and in no acute distress. Head/Face: Normocephalic, atraumatic. Eyes: Pupils equal round and reactive to light, extra-ocular motions intact. Lids and lashes normal. Conjunctiva and sclera are non-icteric and not injected. Cornea within normal limits. Periorbital areas with no swelling, redness, or edema. ENT: Nares patent. No nasal discharge, no septal abnormalities noted. Tympanic membranes are normal and external auditory canals are clear. Oropharynx with no redness, swelling, or masses, exudates, or evidence of obstruction, uvula midline. Mucous membranes moist. Neck: Trachea midline, no thyromegaly or masses palpated, and no cervical lymphadenopathy. Supple, full range of motion without nuchal rigidity, or vertebral point tenderness. No Meningismus. Chest/axilla: Normal chest wall appearance and motion. Nontender with no deformity. No lesions are appreciated. Cardiovascular: Regular rate and rhythm with a normal S1 and S2. No gallops, murmurs, or rubs. Normal PMI, no JVD. No pulse deficits. Respiratory: Lungs have equal breath sounds bilaterally, clear to auscultation and percussion. No rales, rhonchi or wheezes noted. No increased work of breathing, no retractions or nasal flaring. Abdomen/GI: Soft, non-tender, with normal bowel sounds. No distension or tympany. No guarding or rebound. No evidence of tenderness throughout. Back: No spinal tenderness. No costovertebral tenderness. Full range of motion. Skin: Warm, dry with normal turgor. Normal color with no rashes, no lesions, and no evidence of cellulitis. MS/ Extremity: Pulses equal, no cyanosis. Neurovascular intact. Full, normal range of motion. Neuro: Awake and alert, GCS 15, oriented to person, place, time, and situation. Cranial nerves II-XII grossly intact. Motor strength 5/5 in all extremities. Sensory grossly intact. Cerebellar exam normal. Normal gait. Psych: Awake, alert, with orientation to person, place and time. Behavior, mood, and affect are within normal limits. Vital Signs: 22:50 BP 158 / 87; Pulse 77; Resp 16; Temp 98.2; Pulse Ox 99% on R/A; Weight 90.72 kg (R); jb4 Height 5 ft. 3 in. (160.02 cm) (R); Pain 08/06; 01/07 00:09 BP 141 / 78; Pulse 68; Resp 13; Pulse Ox 94% on R/A; jb4 01:00 BP 131 / 76; Pulse 70; Resp 16; Pulse Ox 91% on R/A; jb4 02:40 BP 142 / 84; Pulse 82; Resp 16; Pulse Ox 97% on R/A; jb4 03:38 BP 133 / 73; Pulse 76; Resp 16; Pulse Ox 95% on R/A; jb4 01/06 22:50 Body Mass Index 35.43 (90.72 kg, 160.02 cm) [facility] MDM: 01/06 23:25 Patient medically screened. tw4 01/07 20:22 HEART Score: History: Moderately Suspicious (1), ECG: Non specific repolarization tw4 disturbance / LBTB / PM (1), Age: > 45 and < 65 years (1), Risk Factors: 1 or 2 risk factors (1), Troponin: < or = 1 x Normal Limit (0), Total Score = 4. Data reviewed: vital signs, nurses notes. Data interpreted: Pulse oximetry: Interpretation: normal. Counseling: I had a detailed discussion with the patient and/or guardian regarding: the historical points, exam findings, and any diagnostic results supporting the discharge/admit diagnosis, lab results, radiology results. Physician consultation: Altagracia Grimaldo MD regarding admission, to the telemetry unit. patient's condition, and will see patient in ED. 01/06 23:06 Order name: Basic Metabolic Panel [facility] 01/06 23:06 Order name: CBC with Diff [facility] 01/06 23:06 Order name: LFT's [facility] 01/06 23:06 Order name: Magnesium [facility] 01/06 23:06 Order name: NT PRO-BNP [facility] 01/06 23:06 Order name: PT-INR [facility] 01/06 23:06 Order name: Troponin (emerg Dept Use Only) [facility] 01/06 23:10 Order name: Blood Culture Adult (2) [facility] 01/06 23:10 Order name: C-Reactive Protein [facility] 01/06 23:10 Order name: D-Dimer [facility] 01/06 23:10 Order name: Ferritin [facility] 01/06 23:10 Order name: Lactate [facility] 01/06 23:10 Order name: Lipase [facility] 01/06 23:06 Order name: XRAY Chest (1 view) [facility] 01/06 23:10 Order name: Procalcitonin [facility] 01/06 23:10 Order name: Ptt, Activated [facility] 01/06 23:10 Order name: Strep [facility] 01/07 01:41 Order name: CT Chest For PE Angio [facility] 01/07 02:31 Order name: SARS-COV-[address] [facility] 01/07 02:31 Order name: Throat Culture [facility] 01/07 02:34 Order name: Troponin I [facility] 01/07 02:34 Order name: Troponin I [facility] 01/07 02:34 Order name: Troponin I [facility] 01/07 03:02 Order name: Glucose, Ancillary Testing [facility] 01/06 23:06 Order name: EKG; Complete Time: 23:07 [facility] 01/06 23:06 Order name: Cardiac monitoring; Complete Time: 23:24 [facility] 01/06 23:06 Order name: EKG - Nurse/Tech; Complete Time: 23:24 [facility] 01/06 23:06 Order name: IV Saline Lock; Complete Time: 23:24 [facility] 01/06 23:06 Order name: Labs collected and sent; Complete Time: 23:24 [facility] 01/06 23:06 Order name: O2 Per Protocol; Complete Time: 23:24 [facility] 01/06 23:06 Order name: O2 Sat Monitoring; Complete Time: 23:24 [facility] 01/06 23:10 Order name: Droplet/Contact Precautions; Complete Time: 23:24 [facility] 01/06 23:10 Order name: Notify Health Dept [phone]/ ; Complete Time: 23:24 [facility] 01/07 02:34 Order name: CONS Pharmacy Consult [facility] 01/07 02:34 Order name: Heart Healthy EDCT EC:25 Rate is 63 beats/min. Rhythm is regular. QRS [place] is Normal. HI interval is normal. QRS tw4 interval is normal. QT interval is normal. No Q waves. T waves are Inverted in lead III. No ST changes noted. Clinical impression: NSR w/ Non-specific ST/T Changes. Interpreted by me. Reviewed by me. Administered Medications: 00:07 Drug: Decadron - Dexamethasone 10 mg Route: IVP; Site: right antecubital; jb4 00:30 Follow up: Response: No adverse reaction jb4 00:07 Drug: Pepcid 20 mg Route: PO; jb4 00:30 Follow up: Response: No adverse reaction jb4 00:08 Drug: Aspirin 81 mg Route: PO; jb4 00:30 Follow up: Response: No adverse reaction jb4 02:52 Drug: Ativan 1 mg Route: PO; jb4 03:20 Follow up: Response: No adverse reaction; Anxiety decreased jb4 02:52 Drug: Zofran (Ondansetron) 4 mg Route: IVP; Site: right antecubital; jb4 03:20 Follow up: Response: No adverse reaction jb4 Disposition: 20:23 Co-signature as Attending Physician, Oh Borrego MD I agree with the assessment and tw4 plan of care. Disposition: 01/08/20 01:32 Hospitalization ordered by Altagracia Grimaldo for Observation. Preliminary diagnosis is Other chest pain. - Bed requested for Telemetry/MedSurg (observation). - Status is Observation. jb4 - Condition is Stable. - Problem is new. - Symptoms have improved. Signatures: Dispatcher [employer] EDCT Roula Finn, LIANNE-C PHOTO INTERN-Csnw Shey Duval, RN RN tl1 Rob Ortiz RN RN jb4 Oh Borrego MD MD tw4 Corrections: (The following items were deleted from the chart) 02:31 01/06 23:11 CORONAVIRUS+MR.LAB.BRZ ordered. [facility] 01/07 03:44 01:32 Hospitalization Ordered by Altagracia Grimaldo MD for Observation. Preliminary tl1 diagnosis is Other chest pain. Bed requested for Telemetry/MedSurg (observation). Status is Observation. Condition is Stable. Problem is new. Symptoms have improved. tw4 04:05 03:44 01/08/2020 01:32 Hospitalization Ordered by Altagracia Grimaldo MD for Observation. jb4 Preliminary diagnosis is Other chest pain. Bed requested for Telemetry/MedSurg (observation). Status is Observation. Condition is Stable. Problem is new. Symptoms have improved. tl1
--- NOTE | 2020-01-08 01:33 | ER ---
Nurse's Notes [facility] Name: Tracey Rodriguez Age: 64 yrs Sex: Female : 1955 Arrival Date: 01/07/2020 Time: 22:44 Bed 8 Private MD: Diagnosis: Other chest pain Presentation: 01/06 22:50 Chief complaint: Patient states: I have had chest pain for weeks but it suddenly got jb4 worse tonight. I was diagnosed with covid 2.5 weeks ago. the pain radiates to my left arm and between my shoulders. 22:50 Coronavirus screen: Client denies travel out of the [place] in the last 14 days. Ebola jb4 Screen: No symptoms or risks identified at this time. Initial Sepsis Screen: Does the patient meet any 2 criteria? No. Patient's initial sepsis screen is negative. Does the patient have a suspected source of infection? No. Patient's initial sepsis screen is negative. Risk Assessment: Do you want to hurt yourself or someone else? Patient reports no desire to harm self or others. Onset of symptoms was January 07, 2020. Transition of care: patient was not received from another setting of care. 22:50 Method Of Arrival: Wheelchair jb4 22:50 Acuity: ANUJA 3 jb4 Historical: - Allergies: 22:58 anti-inflammatory (all); jb4 22:58 Ciprofloxacin; jb4 22:58 fluoroquinolones; jb4 22:58 Levaquin; jb4 22:58 Sulfa (Sulfonamide Antibiotics); jb4 - Home Meds: 22:58 None [Active]; jb4 - PMHx: 22:58 Diverticulitis; hiatal hernia; Hypoglycemic; Hypothyroidism; ibs; throat erosion; UTI; jb4 - PSHx: 22:58 Tubal ligation; Cholecystectomy; jb4 - Immunization history:: Adult Immunizations not up to date. - Social history:: Smoking status: Patient denies any tobacco usage or history of. Patient/guardian denies using alcohol, street drugs. Screenin:00 Abuse screen: Denies threats or abuse. Nutritional screening: No deficits noted. jb4 Tuberculosis screening: No symptoms or risk factors identified. Fall Risk None identified. Assessment: 23:00 General: Appears in no apparent distress. uncomfortable, Behavior is calm, cooperative, jb4 appropriate for age. Pain: Complains of pain in chest Pain radiates to left scapular area, right scapular area and left arm Pain currently is 5 out of 10 on a pain scale. Quality of pain is described as Pounding Pain began weeks ago. Neuro: Level of Consciousness is awake, alert, obeys commands, Oriented to person, place, time, situation. Cardiovascular: Patient's skin is warm and dry. Respiratory: Airway is patent Respiratory effort is even, unlabored, Respiratory pattern is regular, symmetrical. GI: No signs and/or symptoms were reported involving the gastrointestinal system. : No signs and/or symptoms were reported regarding the genitourinary system. EENT: No signs and/or symptoms were reported regarding the EENT system. Derm: Skin is intact, Skin is pink, warm \T\ dry. Musculoskeletal: Circulation, motion, and sensation intact. Range of motion: intact in all extremities. 01/07 00:09 Reassessment: Patient appears in no apparent distress at this time. Patient and/or jb4 family updated on plan of care and expected duration. Pain level reassessed. Patient is alert, oriented x 3, equal unlabored respirations, skin warm/dry/pink. 01:00 Reassessment: Patient appears in no apparent distress at this time. Patient and/or jb4 family updated on plan of care and expected duration. Pain level reassessed. Patient is alert, oriented x 3, equal unlabored respirations, skin warm/dry/pink. 02:00 Reassessment: Patient appears in no apparent distress at this time. Patient and/or jb4 family updated on plan of care and expected duration. Pain level reassessed. Patient is alert, oriented x 3, equal unlabored respirations, skin warm/dry/pink. 02:40 Reassessment: Pt reports sudden onset nausea and dizziness, provider notified, see MAR jb4 for orders. 03:45 Reassessment: Patient appears in no apparent distress at this time. Patient and/or jb4 family updated on plan of care and expected duration. Pain level reassessed. Patient is alert, oriented x 3, equal unlabored respirations, skin warm/dry/pink. Patient states feeling better. Vital Signs: 01/06 22:50 BP 158 / 87; Pulse 77; Resp 16; Temp 98.2; Pulse Ox 99% on R/A; Weight 90.72 kg (R); jb4 Height 5 ft. 3 in. (160.02 cm) (R); Pain 08/06; 01/07 00:09 BP 141 / 78; Pulse 68; Resp 13; Pulse Ox 94% on R/A; jb4 01:00 BP 131 / 76; Pulse 70; Resp 16; Pulse Ox 91% on R/A; jb4 02:40 BP 142 / 84; Pulse 82; Resp 16; Pulse Ox 97% on R/A; jb4 03:38 BP 133 / 73; Pulse 76; Resp 16; Pulse Ox 95% on R/A; jb4 01/06 22:50 Body Mass Index 35.43 (90.72 kg, 160.02 cm) jb4 ED Course: 01/06 22:44 Patient arrived in ED. ag3 22:55 Rob Ortiz, RN is Primary Nurse. jb4 22:58 Triage completed. jb4 22:58 Arm band placed on right wrist. jb4 23:00 Patient has correct armband on for positive identification. Placed in gown. Bed in low jb4 position. Call light in reach. Side rails up X 1. shelter monitor on. Pulse ox on. NIBP on. 23:00 Patient maintains SpO2 saturation greater than 95% on room air. jb4 23:25 Oh Borrego MD is Attending Physician. tw4 01/07 00:00 Inserted saline lock: 22 gauge in right hand, using aseptic technique. Blood collected. oe 01:32 Altagracia Grimaldo MD is Hospitalizing Provider. tw4 02:30 XRAY Chest (1 view) In Process Unspecified. EDMS 04:04 No provider procedures requiring assistance completed. Patient admitted, IV remains in jb4 place. Administered Medications: 00:07 Drug: Decadron - Dexamethasone 10 mg Route: IVP; Site: right antecubital; jb4 00:30 Follow up: Response: No adverse reaction jb4 00:07 Drug: Pepcid 20 mg Route: PO; jb4 00:30 Follow up: Response: No adverse reaction jb4 00:08 Drug: Aspirin 81 mg Route: PO; jb4 00:30 Follow up: Response: No adverse reaction jb4 02:52 Drug: Ativan 1 mg Route: PO; jb4 03:20 Follow up: Response: No adverse reaction; Anxiety decreased jb4 02:52 Drug: Zofran (Ondansetron) 4 mg Route: IVP; Site: right antecubital; jb4 03:20 Follow up: Response: No adverse reaction jb4 Outcome: 01:32 Decision to Hospitalize by Provider. tw4 04:04 Admitted to Med/surg accompanied by tech, via wheelchair, room 209, with chart, Report jb4 called to DOLORES Portillo 04:04 Condition: stable 04:04 Discharge instructions given to patient, Instructed on the need for admit, Demonstrated understanding of instructions. 04:05 Patient left the ED. jb4 Signatures: Dispatcher [employer] EDMS Roula Finn, STUDENT ADMISSIONS CLERK-C STUDENT ADMISSIONS CLERK-Csnw Rob Ortiz, RN RN jb4 Christiano Arcos Terrence, MD MD tw4 Almita Lewis ag3
--- NOTE | 2020-01-08 02:25 | P.HP ---
Certification for Inpatient Patient admitted to: Observation With expected LOS: <2 Midnights Patient will require the following post-hospital care: None Practitioner: I am a practitioner with admitting privileges, knowledge of patient current condition, hospital course, and medical plan of care. Services: Services provided to patient in accordance with Admission requirements found in Title 42 Section 412.3 of the Code of Federal Regulations Patient History Date of Service: 01/08/20 Reason for admission: chest pain History of Present Illness: [age]-year-old female with past medical history of hypothyroidism recent cold feet 19 infection treated empiric adding 4 weeks ago, presented because of exertion and dyspnea persistent since the last 2 weeks with associated new onset left-sided chest pain since the last 2 days. She described chest pain as intermittent, radiating to the mid scapular area . She denies any dizziness, panic attacks, or syncope. She denies any nausea or vomiting. She presented to the ED today because of persistent symptoms. Of note, she has an EKG 2 weeks ago for which seems unremarkable and unchanged from EKG today. Initial cardiac enzyme is negative. She has been admitted for rule out acute coronary syndrome. Allergies NSAIDS (Non-Steroidal Anti-Inflamma Allergy (Mild, Verified 01/06/18 23:52) Unknown ciprofloxacin Allergy (Verified 01/07/18 00:17) Unknown iodine Allergy (Verified 01/07/18 00:17) Unknown levofloxacin [From Levaquin] Allergy (Verified 01/07/18 00:17) Unknown Home medications list reviewed: Yes Home Medications: Pantoprazole [Protonix Tab] 40 mg PO DAILY 01/06/18 Selenium 200 mcg PO BID 01/06/18 Zinc Gluconate [Zinc] 30 mg PO BID 01/06/18 Cefuroxime [Ceftin] 250 mg PO BID #14 tab 01/07/18 - Past Medical/Surgical History Diabetic: No -: Hypothyroidism -: Generalized weakness -: Hypothyroidism -: Frequent UTI -: Cholecystectomy -: Tubal Ligation -: Carpal Tunnel repair -: sinus surgery - Family History Family History: Reviewed- Non-Contributory - Family History Mother -: Heart disease, Cancer Father -: Heart disease, Stroke Brother -: Cancer - Social History Smoking Status: Never smoker Alcohol use: No CD- Drugs: No Caffeine use: No Review of Systems 10-point ROS is otherwise unremarkable General: Malaise Musculoskeletal: Shoulder Pain Physical Examination - Physical Exam General: Alert, In no apparent distress, Oriented x3 HEENT: Atraumatic, Normocephalic, PERRLA Neck: Supple, 2+ carotid pulse no bruit, JVD not distended Respiratory: Clear to auscultation bilaterally, Normal air movement Cardiovascular: No edema, Normal pulses, Regular rate/rhythm, Normal S1 S2 Gastrointestinal: Normal bowel sounds, Soft and benign, Non-distended Musculoskeletal: No clubbing, No swelling Integumentary: No rashes, No breakdown Neurological: Normal gait, Normal speech, Normal strength at 5/5 x4 extr - Studies Laboratory Data (last 24 hrs) 01/07/20 23:53: APTT 31.2 01/07/20 23:53: Lipase 166 01/07/20 23:53: PT 11.3, INR 0.96 01/07/20 23:53: WBC 6.9, Hgb 15.9 H, Hct 46.7 H, Plt Count 194 01/07/20 23:53: Sodium 142, Potassium 3.5, BUN 11, Creatinine 0.94, Glucose 86, Magnesium 2.1, Total Bilirubin 1.1 H, AST 24, ALT 32, Alkaline Phosphatase 88 Microbiology Data (last 24 hrs): 01/07/20 23:52 Throat Group A Streptococcus Rapid Screen - Final Imagings Data: EKG- NSR , T wave inversion III, unchanged from report of EKG 12/09/19 Assessment and Plan - Problems (Diagnosis) (1) Chest pain Current Visit: Yes Status: Acute (2) Hypothyroidism in adult Onset Date: 11/19/16 Current Visit: No Status: Acute - Advance Directives Does patient have a Living Will: No Does patient have a Durable POA for Healthcare: No Physician Review: Patient Assessed, Agree with Above Assessment and Plan Physician Review Additional Text: # atypical chest pain-may be due to musculoskeletal disease -continue serial set of cardiac enzymes x2 sets -continue p.r.n. sublingual nitroglycerin -will continue to monitor -since weakness post covid , and new chest pain , obtain CT chest to r/o PE -may need outpatient stress test # hypothyroidism-continue Synthroid # Recent Covid infection-stable -repeat rapid covid testing negative # DVT prophylaxis- sc lovenox # Dispo - possible less than 24 hrs Time Spent Managing Pts Care (In Minutes): 55
[2020-01-08] MEDS ORDERED: ONDANSETRON 4 MG/2 ML VIAL IV PRN ×2 (02:30→18:21)
[2020-01-08] MEDS ORDERED: ALBUTEROL 2.5 MG/3 ML NEB SOL NEB PRN (02:30)
[2020-01-08] MEDS ORDERED: MORPHINE 2 MG/ML SYR IV PRN (02:30)
[2020-01-08] MEDS ORDERED: LORAZEPAM 0.5 MG TABLET PO PRN (02:33)
[2020-01-08] MEDS ORDERED: LORAZEPAM 1 MG TABLET ONE (02:51)
[2020-01-08 04:18] VITALS: BMI 35.2
[2020-01-08] MEDS: D5 0.9 NS 1,000 ML IV SCH ×2 (05:13→13:14)
[2020-01-08] MEDS: ACETAMINOPHEN 325 MG TABLET PO PRN ×2 (05:13→12:14)
[2020-01-08] MEDS: ENOXAPARIN 40 MG/0.4 ML SQ SCH ×2 (05:14→07:51)
[2020-01-08] MEDS: NITROGLYCERIN 0.2 MG/HR (5 MG) PATCH TD SCH (07:51)
[2020-01-08] MEDS: PANTOPRAZOLE 40MG TABLET PO SCH (07:54)
[2020-01-08] MEDS: ASPIRIN EC 81 MG TAB PO SCH (07:54)
[2020-01-08] MEDS: SELENIUM 200 MCG PO SCH ×2 (07:55→21:00)
[2020-01-08] MEDS: ZINC GLUCONATE 30 MG PO SCH ×2 (07:55→21:00)
[2020-01-08] MEDS ORDERED: HYDROCODONE/APAP 10/325 TAB PO ONE (08:33)
--- NOTE | 2020-01-08 08:53 | RAD REPORT ---
EXAM DESCRIPTION: Luis Single View01/08/2020 12:02 am CLINICAL HISTORY: Chest pain COMPARISON: November 2019 FINDINGS: The lungs appear clear of acute infiltrate. The heart is normal size IMPRESSION: No acute abnormalities displayed
[2020-01-08] MEDS ORDERED: HYDROCORTISONE SUC 100 MG INJ IV ONE (14:00)
--- NOTE | 2020-01-08 14:08 | P.DS ---
Discharge Date: 01/08/20 Disposition: ROUTINE DISCHARGE Discharge Condition: GOOD Reason for Admission: chest pain Brief History of Present Illness: Patient is a 64-year-old female with past medical history of hypothyroidism recent cold feet 19 infection treated empiric adding 4 weeks ago, presented because of exertion and dyspnea persistent since the last 2 weeks with associated new onset left-sided chest pain since the last 2 days. She described chest pain as intermittent, radiating to the mid scapular area . She denies any dizziness, panic attacks, or syncope. She denies any nausea or vomiting. She presented to the ED today because of persistent symptoms. Of note, she has an EKG 2 weeks ago for which seems unremarkable and unchanged from EKG today. Initial cardiac enzyme is negative. She has been admitted for rule out acute coronary syndrome. Vital Signs/Physical Exam: Temp Pulse Resp BP Pulse Ox 97.3 F 87 16 124/72 94 01/08/20 12:00 01/08/20 12:00 01/08/20 12:00 01/08/20 12:00 01/08/20 12:00 General: Alert, In no apparent distress, Oriented x3 Laboratory Data at Discharge: WBC 6.9 K/uL (4.3-10.9) 01/07/20 23:53 Hgb 15.9 g/dL (12.0-15.0) H 01/07/20 23:53 Hct 46.7 % (36.0-45.0) H 01/07/20 23:53 Plt Count 194 K/uL (152-406) 01/07/20 23:53 PT 11.3 SECONDS (9.5-12.5) 01/07/20 23:53 INR 0.96 01/07/20 23:53 APTT 31.2 SECONDS (24.3-36.9) 01/07/20 23:53 Sodium 142 mmol/L (136-145) 01/07/20 23:53 Potassium 3.5 mmol/L (3.5-5.1) 01/07/20 23:53 BUN 11 mg/dL (7-18) 01/07/20 23:53 Creatinine 0.94 mg/dL (0.55-1.3) 01/07/20 23:53 Glucose 86 mg/dL (74-106) 01/07/20 23:53 Magnesium 2.1 mg/dL (1.8-2.4) 01/07/20 23:53 Total Bilirubin 1.1 mg/dL (0.2-1.0) H 01/07/20 23:53 AST 24 U/L (15-37) 01/07/20 23:53 ALT 32 U/L (12-78) 01/07/20 23:53 Alkaline Phosphatase 88 U/L (45-117) 01/07/20 23:53 Troponin I < 0.02 ng/mL (0.0-0.045) 01/08/20 09:03 Lipase 166 U/L (73-393) 01/07/20 23:53 Home Medications: Acetaminophen [Tylenol] 325 mg PO 6XD PRN 01/08/20 Azithromycin [Zithromax] 250 mg PO ZPAK #1 claudia 01/08/20 Guaifenesin [Mucinex] 600 mg PO BEDTIME 01/08/20 Levocetirizine Dihydrochloride [Xyzal] 5 mg PO DAILY #30 tablet 01/08/20 Methylprednisolone [Medrol dosepack] 4 mg PO DIRECTED #1 claudia 01/08/20 Pantoprazole [Protonix Tab*] 40 mg PO DAILY PRN 01/08/20 New Medications: Methylprednisolone [Medrol dosepack] 4 mg PO DIRECTED #1 claudia Levocetirizine Dihydrochloride [Xyzal] 5 mg PO DAILY #30 tablet Azithromycin [Zithromax] 250 mg PO ZPAK #1 claudia Patient Discharge Instructions: OK TO DC IV AND DC HOME. FOLLOW-UP WITH PRIMARY CARE PROVIDER IN 1-2 WEEKS. FOLLOW-UP WITH CARDIOLOGY IN 1-2 WEEKS. RETURN TO THE ER IF symptoms worsen. CALL or TEXT DR. HINOJOSA AT [phone] IF ANY QUESTIONS REGARDING HOSPITAL STAY. PLEASE CALL THE FLOOR AT [phone] IF ANY MEDICATION OR NURSING QUESTIONS.
[2020-01-08] MEDS ORDERED: ACETAMIN/CAFFEINE/BUTALB TAB PO PRN (15:55)
--- NOTE | 2020-01-08 16:07 | P.PN ---
Subjective Date of Service: 01/08/20 Patient continued to have palpitations and some sternal pain. She has a busy work schedule and I am reluctant for her to go back unless she gets cardiac workup with all her symptoms. She does have a fine arts model who she can go see in [place]. However, nursing staff called me that she was having some discom fort and palpitations once again. I will go ahead and get echocardiogram and stress test in the morning. Were unable to do them over the weekend. Before spleen, will have to wait until tomorrow for these testing to get done. If these are negative then she should be able to go home. Review of Systems 10-point ROS is otherwise unremarkable Physical Examination - Vital Signs Temperature: 97.3 F Blood Pressure: 124/72 Pulse: 87 Respirations: 16 Pulse Ox (%): 94 - Physical Exam General: Alert, In no apparent distress, Oriented x3 Respiratory: Clear to auscultation bilaterally, Normal air movement Cardiovascular: Regular rate/rhythm, Normal S1 S2, Systolic murmur Gastrointestinal: Normal bowel sounds, Soft and benign, Non-distended, No tenderness Musculoskeletal: No clubbing, No swelling, No tenderness Neurological: Normal speech, Normal strength at 5/5 x4 extr, Normal tone, Sensation intact, Cranial nerves 3-12 intact Lymphatics: No axilla or inguinal lymphadenopathy - Studies Laboratory Data (last 24 hrs) 01/07/20 23:53: APTT 31.2 01/07/20 23:53: Lipase 166 01/07/20 23:53: PT 11.3, INR 0.96 01/07/20 23:53: WBC 6.9, Hgb 15.9 H, Hct 46.7 H, Plt Count 194 01/07/20 23:53: Sodium 142, Potassium 3.5, BUN 11, Creatinine 0.94, Glucose 86, Magnesium 2.1, Total Bilirubin 1.1 H, AST 24, ALT 32, Alkaline Phosphatase 88 Microbiology Data (last 24 hrs): 01/07/20 23:52 Throat Group A Streptococcus Rapid Screen - Final Medications List Reviewed: Yes Assessment & Plan - Problems (Diagnosis) (1) Chest pain, rule out acute myocardial infarction Current Visit: Yes Status: Acute (2) Gastroesophageal reflux disease Current Visit: Yes Status: Acute (3) Caffeine withdrawal Current Visit: Yes Status: Acute (4) Headache Current Visit: Yes Status: Acute (5) Palpitations Current Visit: Yes Status: Acute (6) Nausea Onset Date: 01/07/18 Current Visit: No Status: Acute - Plan 1. Serial troponins and EKG have not shown any acute changes 2. May need to follow with fine arts model as an outpatient if pain continue 3. Echocardiogram and stress test in a.m.; if unremarkable then she can go home in AM 4. Anti-platelet therapy, anti coagulation, beta-fabio, statin, and O2 as needed 5. IV morphine for pain 6. Fioricet for headache Discharge Plan: Home Plan to discharge in: 24 Hours - Advance Directives Does patient have a Living Will: No Does patient have a Durable POA for Healthcare: No - Code Status/Comfort Care Code Status Assessed: Yes Code Status: Full Code Physician Review: Patient Assessed, Agree with Above Assessment and Plan Critical Care: No Time Spent Managing PTS Care (In Minutes): 45
[2020-01-08] MEDS ORDERED: ACETAMIN/CAFFEINE/BUTALB TAB PO ONE (16:42)
[2020-01-09] MEDS: D5 0.9 NS 1,000 ML IV SCH (01:24)
--- NOTE | 2020-01-09 07:43 | EKG ---
Test Date: 2020-01-08 Test Time: 14:01:37 [place]: MEASUREMENT RESULTS: Intervals: Rate: 54 AR: 132 QRSD: 76 QT: 416 QTc: 394 [place]: P: 42 AR: 132 QRS: -26 T: -32 INTERPRETIVE STATEMENTS: Sinus bradycardia with premature atrial complexes Nonspecific ST and T wave abnormality Abnormal ECG Compared to ECG 01/07/2020 22:59:21 Atrial premature complex(es) now present Sinus rhythm no longer present Left-axis deviation no longer present ST (T wave) deviation still present Electronically Signed On 01-09-20 07:42:48 CDT by Akin Rahman
--- NOTE | 2020-01-09 07:45 | EKG ---
Test Date: 2020-01-07 Test Time: 22:59:21 Internet Marketer: TEJAL MEASUREMENT RESULTS: Intervals: Rate: 63 [place]: 130 QRSD: 76 QT: 382 QTc: 390 [place]: P: 24 OH: 130 QRS: -30 T: -19 INTERPRETIVE STATEMENTS: Normal sinus rhythm Left axis deviation Nonspecific ST abnormality Abnormal ECG Compared to ECG 12/12/2019 18:39:42 No significant changes Electronically Signed On 01-09-20 07:43:06 CDT by Akin Rahman
--- NOTE | 2020-01-09 07:48 | P.DS ---
Admission Date: 01/08/20 Discharge Date: 01/09/20 Primary Care Provider: Dr. Sen; [facility]-Cardiology Disposition: ROUTINE DISCHARGE Discharge Condition: GOOD Reason for Admission: chest pain Consultations: Cardiology-Dr. Rahman Procedures: CT Chest: No evidence of pulmonary embolism Cardiac Stress Test: FINDINGS: There is uniformity of radiotracer uptake involving the entire left ventricular myocardium on rest and stress images. The left ventricular ejection fraction equals 67% IMPRESSION: Negative for a myocardial perfusion defect ECHO: Obtained Medical Problem List: Chest pain, atypical likely noncardiac GERD Headache likely from caffeine withdrawal Hypothyroidism Seasonal allergies Brief History of Present Illness: 64 yo CF presented to the ER for chest pain. Initial cardiac enzymes was normal. Patient admitted for further evaluation. Hospital Course: Patient presented with chest pain. Patient was admitted for further evaluation. Cardiac enzymes have been unremarkable. Cardiac stress test and echocardiogram obtained. Cardiac stress test showed no stress-induced ischemia. Normal ejection fraction noted. No significant abnormalities noted. CT chest shows no pulmonary embolism. Chest pain likely noncardiac. No further intervention required. At discharge patient may follow up with her PCP to further evaluate and address. Patient with GERD. Chest pain may be related to this. At discharge she will continue with Protonix 40 mg daily. Recommend follow up with GI as an outpatient to further evaluate. This may include EGD. Patient with hypothyroidism. At discharge she may continue with [place] thyroid 15 mg daily. Recommend follow up with her PCP to further monitor and address. Patient with seasonal allergies. At discharge she may continue with Xyzal 5 mg daily. Vital Signs/Physical Exam: Temp Pulse Resp BP Pulse Ox 97.6 F 60 18 114/59 L 97 01/09/20 04:00 01/09/20 04:00 01/09/20 04:00 01/09/20 04:00 01/09/20 04:00 General: Alert, In no apparent distress, Oriented x3, Cooperative HEENT: Atraumatic Neck: Supple Respiratory: Clear to auscultation bilaterally, Normal air movement Cardiovascular: Normal pulses, Regular rate/rhythm Gastrointestinal: Normal bowel sounds, Soft and benign, Non-distended, No tenderness, No masses, No rebound, No guarding Musculoskeletal: No erythema, No tenderness, No warmth Integumentary: No tenderness/swelling, No erythema, No warmth, No cyanosis Neurological: Normal speech, Normal strength at 5/5 x4 extr, Normal tone, Normal affect Laboratory Data at Discharge: WBC 6.9 K/uL (4.3-10.9) 01/07/20 23:53 Hgb 15.9 g/dL (12.0-15.0) H 01/07/20 23:53 Hct 46.7 % (36.0-45.0) H 01/07/20 23:53 Plt Count 194 K/uL (152-406) 01/07/20 23:53 PT 11.3 SECONDS (9.5-12.5) 01/07/20 23:53 INR 0.96 01/07/20 23:53 APTT 31.2 SECONDS (24.3-36.9) 01/07/20 23:53 Sodium 142 mmol/L (136-145) 01/07/20 23:53 Potassium 3.5 mmol/L (3.5-5.1) 01/07/20 23:53 BUN 11 mg/dL (7-18) 01/07/20 23:53 Creatinine 0.94 mg/dL (0.55-1.3) 01/07/20 23:53 Glucose 86 mg/dL (74-106) 01/07/20 23:53 Magnesium 2.1 mg/dL (1.8-2.4) 01/07/20 23:53 Total Bilirubin 1.1 mg/dL (0.2-1.0) H 01/07/20 23:53 AST 24 U/L (15-37) 01/07/20 23:53 ALT 32 U/L (12-78) 01/07/20 23:53 Alkaline Phosphatase 88 U/L (45-117) 01/07/20 23:53 Troponin I < 0.02 ng/mL (0.0-0.045) 01/08/20 09:03 Triglycerides 130 mg/dL (<150) 01/09/20 05:51 Cholesterol 190 mg/dL (<200) 01/09/20 05:51 HDL Cholesterol 51 mg/dL (40-60) 01/09/20 05:51 Cholesterol/HDL Ratio 3.73 01/09/20 05:51 Lipase 166 U/L (73-393) 01/07/20 23:53 Home Medications: Acetaminophen [Tylenol] 325 mg PO 6XD PRN 01/08/20 Cholecalciferol (Vitamin D3) [Vitamin D3] 5,000 unit PO DAILY 01/08/20 Echinacea 400 mg PO DAILY 01/08/20 Guaifenesin [Mucinex] 600 mg PO BEDTIME 01/08/20 Levocetirizine Dihydrochloride [Xyzal] 5 mg PO DAILY #30 tablet 01/08/20 Pantoprazole [Protonix Tab*] 40 mg PO DAILY PRN 01/08/20 Thyroid,Pork [Pipe Organ Mechanic Apprentice Thyroid] 1 tab PO [id number] 01/08/20 Zinc Gluconate [Zinc] 200 mg PO DAILY 01/08/20 New Medications: Levocetirizine Dihydrochloride [Xyzal] 5 mg PO DAILY #30 tablet Patient Discharge Instructions: 1. Recommend follow up with PCP in 1 week to follow up this hospitalization. 2. Patient presented with chest pain. Patient was admitted for further evaluation. Cardiac enzymes have been unremarkable. Cardiac stress test and echocardiogram obtained. Cardiac stress test showed no stress-induced ischemia. Normal ejection fraction noted. No significant abnormalities noted. CT chest shows no pulmonary embolism. Chest pain likely noncardiac. No further intervention required. At discharge patient may follow up with her PCP to further evaluate and address. 3. Patient with GERD. Chest pain may be related to this. At discharge she will continue with Protonix 40 mg daily. Recommend follow up with GI as an outpatient to further evaluate. This may include EGD. 4. Patient with hypothyroidism. At discharge she may continue with [place] thyroid 15 mg daily. Recommend follow up with her PCP to further monitor and address. 5. Patient with seasonal allergies. At discharge she may continue with Xyzal 5 mg daily. Diet: AHA Activity: Ad marilee Time spent managing pt's care (in minutes): 55
[2020-01-09] MEDS: ENOXAPARIN 40 MG/0.4 ML SQ SCH (08:20)
[2020-01-09] MEDS: PANTOPRAZOLE 40MG TABLET PO SCH (08:20)
[2020-01-09] MEDS: ASPIRIN EC 81 MG TAB PO SCH (08:20)
[2020-01-09] MEDS: SELENIUM 200 MCG PO SCH (08:20)
[2020-01-09] MEDS: ACETAMINOPHEN 325 MG TABLET PO PRN (08:21)
[2020-01-09] MEDS: NITROGLYCERIN 0.2 MG/HR (5 MG) PATCH TD SCH (08:21)
[2020-01-09] MEDS: ZINC GLUCONATE 30 MG PO SCH (08:21)
[2020-01-09 08:35] VITALS: BP 128/78; TEMP 98
[2020-01-09 08:47] VITALS: O2SAT 98
[2020-01-09] MEDS ORDERED: REGADENOSON 0.4 MG/5 ML SYR IV ONE (09:13)
--- NOTE | 2020-01-09 10:04 | RAD REPORT ---
EXAM DESCRIPTION: NM - Rest Stress Cardiac Imaging - 01/09/2020 9:55 am CLINICAL HISTORY: Chest pain. COMPARISON: None. TECHNIQUE: The patient was administered approximately 10.1 mCi of Tc 99m Sestamibi prior to resting SPECT imaging of the heart. The patient was then administered approximately 31.2 mCi of Tc 99m Sestam ibi following exercise or pharmacologic stress. Multiplanar SPECT images were reviewed. FINDINGS: There is uniformity of radiotracer uptake involving the entire left ventricular myocardiu m on rest and stress images. The left ventricular ejection fraction equals 67% IMPRESSION: Negative for a myocardial perfusion defect
--- NOTE | 2020-01-09 11:16 | RAD REPORT ---
EXAM DESCRIPTION: CT - Chest For Pe Angio - 01/08/2020 6:33 am CLINICAL HISTORY: The patient is 64 years old and is Female; CHEST PAIN TECHNIQUE: Axial computed tomographic angiography images of the chest with intravenous contrast. S agittal and coronal reformatted images were created and reviewed. This CT exam was performed using one or more of the following dose reduction techniques: automated exposure control, adjustment of t he mA and/or kV according to patient size, and/or use of iterative reconstruction technique. MIP reconstructed images were created and reviewed. COMPARISON: CT of the abdomen and pelvis January 02, 2019 FINDINGS: PULMONARY ARTERIES: There are no obvious filling defects identified within the pulmonary arteries to suggest pulmonary embolism. AORTA: No acute findings. No thoracic aortic aneurysm. LUNGS: Minimal dependent densities in the lung bases are present. No mass. PLEURAL SPACE: Unremarkable. No significant effusion. No pneumothorax. HEART: Unremarkable. No cardiomegaly. No significant pericardial effusion. No evidence of RV dysfunction. BONES/JOINTS: No acute fracture. No dislocation. SOFT TISSUES: Unremarkable. LYMPH NODES: Unremarkable. No enlarged lymph nodes. LIVER: Three cysts within the liver are present. IMPRESSION: No evidence of pulmonary embolism. Electronically signed by: Carla Gale MD 01/08/2020 3:52 AM CDT Due to temporary technical issues with the PACS/Fluency reporting system, reports are being signed by the in house radiologist without review as a courtesy to ensure prompt reporting. The interpreting r adiologist is fully responsible for the content of the report.
--- NOTE | 2020-01-10 08:41 | TREADPHA ---
DX: CHEST PAIN Date of Study: 01/09/2020 Ht: 5' 3 " Wt: 198 lb 8 oz Consulting Physician: FELIX MEDICATIONS: ASPIRIN, LOVENOX, ATIVAN HISTORY: 64 YEAR OLD FEMALE WITH HISTORY OF DIVERTICULITIS, COVID-19 POSITIVE FOUR WEEKS AGO. ADMITTED FOR CHEST PAIN. DENIES CHEST PAIN. PHYSICIAL EXAMINATION: RESTING B.P.: 147/96 RESTING H.R.: 80 RESTING EKG: SINUS WITH ST DEPRESSION IN II AND III PROTOCOL: PHARMACOLOGIC EXERCISE TIME: 3:30 B.P. AT PEAK STRESS: 174/104 IMPRESSION: LEXISCAN STRESS TEST PERFORMED. CARDIOLITE INJECTED PER PROTOCOL. NO SUPRAVENTRICULAR TACHYCARDIA, NO VENTRICULAR TACHYCARDIA, NO ARRHYTHMIAS NOTED. PATIENT DENIED CHEST PAIN. RESPIRATORY EVEN NON-LABORED. TOLERATED WELL. NO CHANGES WITH LEXISCAN.
--- NOTE | 2020-01-10 08:51 | ECHO ---
HEIGHT: 5 ft 3 in WEIGHT: 198 lb 8 oz DATE OF STUDY: 01/09/[address]: Rukhsana Rosenberg MD 2-DIMENSIONAL: YES M.MODE: YES DOPPLER: YES COLOR FLOW: YES TDS: PORTABLE: DEFINITY: BUBBLE STUDY: DIAGNOSIS: CHEST PAIN CARDIAC HISTORY: CATHERIZATION: NO SURGERY: NO PROSTHETIC VALVE: NO PACEMAKER: NO MEASUREMENTS (cm) DIASTOLIC (NORMALS) SYSTOLIC (NORMALS) IVSd 1.1 (0.6-1.2) LA Diam 3.0 (1.9-4.0) LVEF 54% LVIDd 4.1 (3.5-5.7) LVIDs 3.0 (2.0-3.5) %FS 28% LVPWd 1.2 (0.6-1.2) Ao Diam 2.7 (2.0-3.7) 2 DIMENSIONAL ASSESSMENT: RIGHT ATRIUM: NORMAL LEFT ATRIUM: NORMAL RIGHT VENTRICLE: NORMAL LEFT VENTRICLE: NORMAL TRICUSPID VALVE: MILD TRICUPSID REGURGITATION MITRAL VALVE: MILD MITRAL REGURGITATION PULMONIC VALVE: NORMAL AORTIC VALVE: NORMAL PERICARDIAL EFFUSION: NONE AORTIC ROOT: NORMAL LEFT VENTRICULAR WALL MOTION: NORMAL DOPPLER/COLOR FLOW: NORMAL COMMENTS: NORMAL LEFT VENTRICULAR EJECTION FRACTION 55-60% WITH NORMAL WALL MOTION. MILD TRICUSPID REGURGITATION. MILD MITRAL REGURGITATION. TECHNOLOGIST: MARY ARIAZ
== END 2020-01-09 11:20 | disposition home or self-care (01) ==
LOC: ER 22:41 → ERHOLD 01-08 02:49 → 2ND 01-08 03:49
PROVIDERS: ADMIT Internal Medicine; ATTEND Family Medicine
DX: R07.89 Other chest pain (principal); K21.9 Gastro-esophageal reflux disease without esophagitis; E03.9 Hypothyroidism, unspecified; R51.9 Headache, unspecified; J30.2 Other seasonal allergic rhinitis; R00.2 Palpitations; R94.31 Abnormal electrocardiogram [ECG] [EKG]; Z20.828 Contact with and (suspected) exposure to other viral communicable diseases; R11.0 Nausea; K44.9 Diaphragmatic hernia without obstruction or gangrene
CPT/HCPCS: 93005 ×2; 93017; 93306; 87040 ×2; 87070; 85025; 80048; 36415 ×2; 83735; 85610; 80061; 82947; 85379; 80076; 87081; 83605; 85730; 84484 ×3; 82728; 83690; 84145; 83880; 86140; 71275; 71045; 78452; 96375; 96374; 99285; U0003; Q9967; J1100; J1650 ×2; J2785; J7042 ×3; J1720; J2405 ×3; A9500; G0378 ×3

== ENCOUNTER 2020-01-09 22:08 | Emergency (ER) | payer OTHER ==
--- OUTSIDE RECORDS SUMMARY | 2020-01-09 22:10 | XMS REPORT | Clinical Summary ---
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
--- OUTSIDE RECORDS SUMMARY | 2020-01-09 22:14 | XMS REPORT | Continuity of Care Document ---
:1955 Author Organization [employer] Care Team Providers Name Role Phone [employer] Unavailable Un available Problems Problem Status Onset Classification Date Comments Sourc e Date Reported F/U AND 2ND OPINION Active [address] Acute sinusitis, 07/25/2018 OPID unspecified 018 [place] KNEE PAIN Active [address]-NAUSEA, EARLY Active [address] STOMACH PAIN Active [address] Discharge Diagnosis: 09/19/2015 Sugar Adult hypothyroidism [address] WEAKNES AND BLURY Active Sugar VISION 0[address] BDDC - NEW PT CONSULT Active [address] BDDC/ Z12.11 SCREENING Active [facility] FOR MALIGNANT ALICIA [address] [place] [address] PAIN IN THE ABDOMEN; Active [facility] UPPER AND LOWER [address] Diarrhea (finding) Resolved Problem 10/10/2019 Data 015 migrated Medical from [facility] on 10/04/14. Medical [place] OPID Browning, SUGARD Escobar, [place] Screening mammography Active Problem 10/10/2019 Data (procedure) 015 migrated Medical from [facility] on 10/04/14. [facility] OPID [place], OPID Escobar, Brow[place] Vitamin D deficiency Active Problem 10/10/2019 Data (disorder) 015 migrated Medical from [facility] on 10/04/14. [facility] OPID [place], OPID Escobar, [place] VITAMIN D DEFICIENCY Active Condition 08/23/2014 015 Medical Group DIARRHEA Active Condition 08/23/2014 015 Medical Group MAMMOGRAM YEARLY Active Condition 08/23/2014 SCREENING 015 Medical Group Gastritis (disorder) Active Problem 10/10/2019 Data 015 migrated Medical from [facility] on 10/04/14. Medical Center,[facility], OPID Brow[place], OPID [place], [place] Multiple joint pain Active Problem 10/10/2019 Data MH (finding) 015 migrated Medical from [facility] on 10/04/14. Medical Center,[facility], OPID [place], OPID [place], [place] Muscle pain (finding) Active Problem 10/10/2019 Data 015 migrated Medical from [facility] on 10/04/14. Medical Center,[facility], OPID [place], OPID [place], [place] Nausea (finding) Active Problem 10/10/2019 Data 015 migrated Medical from [facility] on 10/04/14. 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 Medical Center,[facility] OPID [place], OPID [place], [place] Numbness (finding) Active Problem 10/10/2019 Data 015 migrated Medical from [facility] on 10/04/14. Medical Center,[facility] OPID [place], OPID [place], [place] Reactive hypoglycemia Active Problem 10/10/2019 Data MH (disorder) 015 migrated Medical from [facility] on 10/04/14. Medical Center,[facility] OPID Brow[place], JESSICA [place], [place] HYPOGLYCEMIA, REACTIVE Active Condition 08/23/2014 015 Medical Group ROUTINE GENERAL Active Condition 08/23/2014 MEDICAL EXAMINATION AT [facility] Medical [facility] Group NUMBNESS [...] (disorder) Resolved Problem 10/10/2019 Data migrated from [employer] on 10/14/14. 012 Data migrated from [employer] on 10/13/14. 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 (disorder) Medical Group,[facility] Hypoglycemia Resolved Problem 10/10/2019 (disorder) Medical Group,[facility], [place], OPID [place], OPID [place], [place] Obesity (disorder) Active Problem 10/10/2019 Medical Group,[facility], [place], OPID [place], OPID [place], [place] ASTHMA Active Condition 08/23/2014 Medical Group HEADACHE [...] # 14 (Macrobid) cap, 0 Refill(s), Pharmacy: [id number] fluconazole 150 mg See Active oral tablet Instruction 019 Medical s, 1 tab PO Group ONCE a week, # 2 tab, 0 Refill(s), Pharmacy: [facility] 14191 ciclopirox 7.7 1 appl, Active MG/ML Topical TOP, BID, X 019 Medica l Cream 28 day, # Group 90 gm, 0 Refill(s), Pharmacy: [facility] [address] rifaximin 550 MG 550 mg = 1 Active MH [place] Oral Tablet tab, PO, 019 Medical [XIFAXAN] TID, # 42 Center tab, 0 Refill(s), Pharmacy: [facility] pantoprazole 40 mg, PO, Active MH [place] Daily, # 30 019 Medical tab, 0 Center Refill(s) Hyoscyamine 0.125 mg = Active MH Sulfate 0.125 MG 1 tab, PO, 019 Medi emerson Disintegrating QID, PRN Group Tablet [Nulev] Spasm, # 40 tab, 1 Refill(s), Pharmacy: [facility] 43584 Sulfamethoxazole 1 tab, PO, Active MH 800 MG / BID, X 7 019 Medical Trimethoprim 160 day, # 14 Group MG Oral Tablet tab, 0 [Bactrim] Refill(s), Pharmacy: [facility] 00541 clonazePAM 0.5 mg 0.5 mg = 1 Active MH oral tablet tab, PO, 019 Medical Daily, PRN Group Anxiety, # 30 tab, 1 Refill(s) Metronidazole 500 500 mg = 1 Active MH [place] Oral Tablet tab, PO, 019 Medical [Flagyl] Q8H, X 10 Group day, # 30 tab, 0 Refill(s), Pharmacy: [facility] 09675 Amoxicillin 875 MG 875 mg = 1 Active MH / Clavulanate 125 tab, PO, 019 Medic al MG Oral Tablet Q12H, X 10 Group [Augmentin 875-mg] day, # 20 tab, 0 Refill(s), Pharmacy: [facility] 18245 Nystatin 301501 1,000,000 No Longer MH [place] Oral Tablet unit = 2 Active 018 Medical tab, PO, Group BID, X 30 day, # 120 tab, 0 Refill(s), Pharmacy: [facility] 85252 sucralfate 1 g 1 gm = 1 Active MH oral tablet tab, PO, 018 Medical QID, # 120 Group tab, 0 Refill(s), [facility] [address] benzonatate 100 MG 100 mg = 1 No Longer Oral Capsule cap, PO, Active 018 Medical [Tessalon Perles] TID, PRN as Gr oup needed for cough, X 7 day, # 21 cap, 0 Refill(s), [facility] [address] Azithromycin 5 Day See No Longer Dose Pack 250 mg Instruction Active 018 Med ical oral tablet s, Take 2 Group tablets by mouth the first day then 1 tablet by mouth days 2-5., X 5 day, # 6 tab, 0 Refill(s), [facility] [address] doxycycline 100 mg = 1 Active hyclate [...] day, # 30 tab, 1 Refill(s), [facility] [address]107 pregabalin 50 MG 50 mg = 1 Active Oral Capsule cap, PO, 018 Medical [Lyrica] TID, # 90 Group cap, 0 Refill(s) valACYclovir 1 g 1 gm = 1 No Longer oral tablet tab, PO, Active 018 Medical Q8H, X 7 Group day, # 21 tab, 1 Refill(s), [facility] [address] valACYclovir 1 g 1 gm = 1 No Longer oral tablet tab, PO, Active 018 Medical Q8H, X 7 Group day, # 21 tab, 1 Refill(s), [facility] 61076 polyethylene 17 gm, PO, No Longer glycol 3350 oral Daily, X 31 Active 018 Med ical powder for day, # 527 Group reconstitution gm, 1 Refill(s), [facility]: [facility]19 benzonatate 100 mg 100 mg = 1 Active oral capsule cap, PO, 018 Medical TID, do not Group crush or chew, X 10 day, # 30 cap, 0 Refill(s), Pharmacy: [facility] [address] Codeine Phosphate 5 mL, PO, Active 2 MG/ML / Q12H, PRN 018 Medical Guaifenesin 20 cough, X 10 Group MG/ML Oral day, # 100 Solution mL, 0 [Cheratussin] Refill(s) Fluticasone 1 spray, Active propionate 0.05 NASAL, BID, 018 Medi emerson MG/ACTUAT Metered # 16 gm, 2 Pierre up Dose Nasal [place] Refill(s), Pharmacy: [facility] [address] Azithromycin 5 Day See Active Dose Pack 250 mg Instruction 018 Med ical oral tablet s, Take 2 Group tablets by mouth the first day then 1 tablet by mouth days 2-5., X 5 day, # 6 tab, 0 Refill(s), Pharmacy: [facility] [address] clonazePAM 0.5 mg 0.5 mg = 1 Active oral tablet, tab, PO, 017 Medical disintegrating BID, # 60 Group tab, 1 Refill(s) EnteraGam EnteraGam, Active [facility] See [facility] s, Samples given in clinic on 03/12/16. Lot [id number] exp date 10/15, # 1 box, Refill(s) 0 pantoprazole 40 MG 40 mg = 1 Active [facility] Enteric Coated tab, PO, 016 Medical [...] Cent er [Levsin] tab, 1 Refill(s), [facility] [address] Ondansetron 8 MG 8 mg = 1 Active [place] as Disintegrating tab, PO, 015 Medical Tablet [Zofran] TID, PRN Center Nausea and Vomiting, Dissolve tab under tongue, X 7 day, # 21 tab, 1 Refill(s), [facility] [address] GoLYTELY oral 240 mL, PO, Active [place] as powder for Q10Min, # 1 015 Medical reconstitution ea, 0 Center Refill(s), [facility] [address] Flagyl 500 mg = 1 Active [place] tab, PO, 015 Medical BID, # 14 Center tab, 0 Refill(s) VITAMIN D 1 capsule Active (ERGOCALCIFEROL) weekly x 12 015 Med ical 60389 UNIT CAPS weeks Group OMEPRAZOLE 20 MG Take one Active CPDR capsule by 015 Medical mouth daily Group ONDANSETRON HCL 4 1 tablet Active MG TABS every 8 015 Medical hours as Group needed for nausea/vomi ting QSYMIA 3.75-23 MG 1 po qd Active [id number] 015 Medical Group CYCLOBENZAPRINE 1/2-1 po No Longer MH HCL 10 MG TABS TID as Active 015 Medical needed for Group spasms PROMETHAZINE HCL 1 SUPP MA Q No Longer M H 25 MG [...] MG # 24 tab, 0 Oral Tablet [[place] Refill(s) 5/325] Phenergan Notes: Do Inactive MH [...] 500 MG 1 po qd Active MH [id number] [id number] Medical Group NULEV 0.125 MG 1 [...] 09/15 Sugar ENZYMES 0.40 /2015 [facility] CARDIAC CK MB <0.5 0.5 - 3.6 09/15 [place] ENZYMES [facility] CARDIAC Total CK 54 12 - 191 09/15 Sugar [facility] CARDIAC CK MB Index <0.9 0.0 - 2.5 09/15 Sugar [facility] CHEM PANEL Total Protein 7.0 6.4 - 8.4 09/15 Leigh [facility] CHEM PANEL eGFR 71 09/15 Result Comment: The [facility] eGFR is calculated using the CKD-EPI [...] 1.025 <=1.030 09/15 Sugar STOOL [facility] Serology HELICOB IGG 0.6 U/mL 08/23 [...] Sugar STOOL (11/30/13 2:00 PM) [facility] CHEM PANEL B/C Ratio 16 6 - 25 11/30 Sugar [facility] CHEM PANEL AGAP 14.0 10.0 - 11/30 Sugar 20.0 [facility] CHEM PANEL Globulin 3.9 2.0 - 4.0 11/30 Sugar [facility] CHEM PANEL A/G Ratio 1.1 0.7 - 1.6 11/30 Sugar [facility] CHEM PANEL eGFR 71 11/30 <sup>1</sup>R Suga r esult [facility] Comment: The eGFR is calculated using [...] values reflect the clinical guidelines
of the [place] [employer]. CHEM PANEL Lipase Lvl 147 [...] - 09 Sugar 31.0 /2013 [facility] HEMATOLOGY MCV 88.0 80.0 - 11/30 Sugar 98.0 /2013 [facility] HEMATOLOGY Eosinophils # 0.0 0.0 - 0.5 11/30 Leigh gar [facility] HEMATOLOGY Segs-Bands # 4.8 1.5 - 8.1 11/30 Sug ar [facility] HEMATOLOGY Monocytes # 0.4 0.0 - 0.8 11/30 MH Suga r [facility] HEMATOLOGY Basophils 0.5 0.0 - 1.0 11/30 MH Sugar [facility] HEMATOLOGY Basophils # 0.0 0.0 - 0.2 11/30 Suga r [facility] HEMATOLOGY Eosinophils 0.7 0.0 - 4.0 11/30 [place] r [facility] HEMATOLOGY Lymphocytes # 1.8 1.0 - 5.5 11/30 Leigh gar [facility] HEMATOLOGY Segs 67.7 45.0 - 11/30 Sugar 75.0 /2013 [facility] HEMATOLOGY Monocytes 5.7 2.0 - 12.0 11/30 Sugar [facility] HEMATOLOGY Lymphocytes 25.4 20.0 - 11/30 Sugar 40.0 [facility] IMMUNOLOGY [facility] HIV 4th Negative Negative 11/30 Suga r GEN (11/30/13 12:35 PM) [facility] Serology HELICOB IGG 0.6 U/mL 11/07 [facility] Group Serology HELICOB IGG 0.6 U/mL 11/07 Medical Group Continuous Process Tanner Rotary Drum PAP SMEAR Normal 03/30 Medical Group Continuous Process Tanner Rotary Drum PAP SMEAR Normal 03/30 Medical Group Continuous Process Tanner Rotary Drum PAP SMEAR Normal 03/30 Medical Group Continuous Process Tanner Rotary Drum PAP SMEAR Normal 03/30 Medical Group Pathology PAP SMEAR Normal 03/30 Medical Group Pathology PAP SMEAR Normal 03/30 Medical Group Pathology Reports No Data Provided for This Section Diagnostic Reports Report Value Date Source Chest 2 views DX 2-VIEW CHEST X-RAY. DATE: 01/05/2018 4:47 PM CDT 01/05/2018 OPID [place] INDICATION: - J01.90 Acute sinusitis, unspec ified [...] [place] contrast CT DATE: 03/25/2016 10:52 AM SPARE HAND CARDING INDICATION: R30.0 Dysuria, R10.9 Unspecified abdominal pain, [...] contrast CT CLINICAL HISTORY:Syncope. 09/16/2015 M H [place] AGE: 59 years GENDER: Female TECHNIQUE: Axial [...] AND PELVIS WITH CONTRAST, 02/23/2015 02/23/[address] HISTORY: Left lower quadrant abdominal [...] Gallbladder HIDA scan with ejection fraction. [facility]: Abdominal pain. Following the [...] Group Temperature Oral (F) 98.7 F 09/03/2018 [facility] emerson Group Heart Rate 63 09/03/2018 Medical Grou p Height 160.02 cm 09/03/2018 Medical Grou p BMI Calculated 31.29 09/03/2018 Medical Gr oup Weight 80.114 09/03/2018 Medical Grou p Height 160.02 cm 07/28/2018 [facility] Weight 79.545 07/28/[facility] BMI Calculated 31.06 07/28/2018 [facility] Respitory Rate 16 07/28/2018 [facility] Heart Rate 68 07/28/2018 [facility] [place] Systolic (mm Hg) 129 07/28/2018 [facility] Diastolic (mm Hg) 84 07/28/2018 [facility] Weight 90 06/14/2018 Medical Grou p BMI [...] emerson Group Systolic (mm Hg) 143 03/12/2016 [facility] dical Center Diastolic (mm Hg) 94 03/12/2016 [facility] Heart Rate 72 03/12/2016 [facility] Weight 90.909 03/12/2016 [facility] BMI Calculated 35.5 03/12/2016 [facility] Center Height 160.02 cm 03/12/2016 [facility] Respitory Rate 16 03/12/2016 [facility] emerson Center Respitory Rate 18 09/16/2015 [place] Heart Rate 78 09/16/2015 [place] Systolic (mm Hg) 133 09/16/2015 [place] Diastolic (mm Hg) 75 09/16/2015 Sugar L and BMI Calculated 33.51 09/16/2015 [place] Weight 85.818 09/16/2015 [place] Temperature Oral (F) 98.0 F 09/16/2015 [place] Heart Rate 81 09/16/2015 [place] Respitory Rate 18 09/16/2015 [place] Height 160.02 cm 09/16/2015 [place] Systolic (mm Hg) 155 09/16/2015 [place] Diastolic (mm Hg) 95 09/16/2015 Sugar L and BMI Calculated 31.86 03/14/2015 [facility] Weight 81.591 03/14/2015 [facility] Height 160.02 cm 03/14/2015 [facility] Heart Rate 81 03/14/2015 [facility] Temperature Oral (F) 97.9 F 03/14/2015 [facility] Systolic (mm Hg) 148 03/14/2015 [facility] Diastolic (mm Hg) 88 03/14/2015 [facility] Height 63 08/23/2014 Medical Grou p Temperature [...] Sugar L and Respitory Rate 16 11/30/2013 [place] Heart Rate 89 11/30/2013 [place] Systolic (mm Hg) 147 11/30/2013 [place] Diastolic (mm Hg) 86 11/30/2013 Sugar L and Heart Rate 88 11/30/2013 [place] Respitory Rate 16 11/30/2013 [place] Weight 96.818 11/30/2013 [place] Height 160.02 cm 11/30/2013 [place] BMI Calculated 37.81 11/30/2013 [place] Temperature Oral (F) 98.2 F 11/30/2013 [place] Respitory Rate 18 11/30/2013 [place] Heart Rate 92 11/30/2013 [place] Diastolic (mm Hg) 92 11/30/2013 Sugar L [...] Provider Date Date Visit [facility] Lab Report [id number] [facility] 12/03 12/03 [place] 7590 [place] /2012 Medical Duran Garcia [facility] [place] [id number] [facility] 12/07 12/07 MH [place] Visit 7040 [place] /2012 Medical Duran Garcia [facility] Office [id number] [facility] 09/01 09/01 [place] Visit 7020 [place] /2013 MD Group Radha Mohamud Jr. [facility] Office [id number] [facility] 10/05 10/05 MH [place] Visit 1090 [place] /2013 MD Radha Mohamud Jr. [facility] [id number] [facility] 10/25 10/25 MH [place] Visit 8880 [place] /2013 MD Group Radha Mohamud Jr. [facility] [place] [id number] [facility] 11/07 11/07 MH [place] Visit 2060 [place] /2013 MD Radha Mohamud Jr. [facility] [place] Lab Report [id number] [facility] 11/07 11/07 MH [place] 2260 [place] /2013 MD Radha Mohamud Jr. [facility] [id number] [facility] 11/21 11/21 MH [place] Visit 8980 [place] /2013 MD Group Radha Mohamud Jr. [facility] [place] [id number] Desean Mosquera 11/30 11/30 M Joseph [facility] Emergency [facility] [id number] 12/01 12/01 [place] 2960 [place] /2013 MD Group Radha Mohamud Jr. [facility] Office [id number] [facility] 02/13 02/13 MH [place] Visit 9710 S[place] /2013 MD Group Radha Mohamud Jr. [place] [facility] [id number] [facility] 04/06 04/06 MH [place] Visit 8760 [place] /2014 MD Group Radha Mohamud Jr. [facility] [place] [id number] [facility] 08/08 08/08 MH [place] Visit 9590 [place] /2014 MD Group Radha Mohamud Jr. [facility] Office [id number] [facility] 08/22 08/22 [place] Visit 7820 [place] /2014 MD Group Radha Mohamud Jr. [facility] Office [id number] [facility] 08/23 08/23 [place] Visit 3800 [place] /2014 MD Group Radha Mohamud Jr. [facility] Lab Report [id number] [facility] 08/23 08/23 [place] 3890 [place] /2014 MD Radha Mohamud Jr. Group [place] Outpatient [id number] [facility] 01/30 Activ e Memorial SUSTACHE [facility] Outpt Diag [id number] Sb 02/23 02/24 OPID Outpatient Services Sabine Sug ar Imaging [facility] Outpatient [id number] Epifanio 03/14 03/15 [facility] Kamron [facility] Bedded [id number] Epifanio 04/30 04/30 [facility] Outpatient Kamron [facility] Outpatient [id number] [facility] 05/17 Activ e Memorial SUSTACHE [place] Outpatient [id number] [facility] 07/09 Activ e Memorial SUSTACHE [place] Outpatient [id number] NADINE LAM 08/22 Acti ve Memorial /2015 [place] Outpatient [id number] [facility] 09/10 Activ e Memorial [place]HE [facility] [place] [id number] Michelle 09/15 09/16 Sugar [place] Emergency Deena /2015 [facility] Outpatient [id number] [facility] 10/17 Activ e Memorial SUSTACHE [place] Outpatient [id number] [facility] 11/18 Activ e Memorial SUSTACHE [place] Outpatient [id number] [facility] 01/20 Activ e Memorial SUSTACHE [place] Outpatient [id number] [facility] 02/12 Activ e Memorial SUSTACHE [facility] Outpatient [id number] Epifanio 03/12 03/13 [facility] [place] [facility] Outpt Diag [id number] Epifanio 03/25 03/26 OPID Outpatient Services [place] [facility] Outpatient [id number] CARLOS 04/17 Activ e Memorial SUSTACHE [place] Outpatient [id number] CARLOS 05/15 Activ e Memorial SUSTACHE /2016 [place] Outpatient [id number] CARLOS 06/03 Activ e Memorial SUSTACHE [place] Outpatient [id number] CARLOS 07/30 Activ e Memorial SUSTACHE /2016 [place] Outpatient [id number] CARLOS 08/29 Activ e Memorial SUSTACHE /2016 [place] Outpatient [id number] CARLOS 11/12 Activ e Memorial SUSTACHE /2016 [place] Outpatient [id number] CARLOS 12/30 Activ e Memorial SUSTACHE /2016 [place] Outpatient [id number] CARLOS 02/23 Activ e Memorial SUSTACHE /2016 [facility] Outpatient [id number] Carlos 02/23 02/24 Primary [place] /2016 [facility] Phone [id number] 03/09 03/11 Primary Message /2016 Medical Care [facility] Phone [id number] 03/12 03/14 Primary Message /2016 [facility] [place] Outpatient [id number] CARLOS 03/31 Activ e Memorial SUSTACHE /2017 [facility] Outpatient [id number] Carlos 03/31 04/01 Primary [place] /2017 [facility] Phone [id number] 06/05 06/07 Primary Message /2017 Medical Care Group [facility] Emergency [id number] Zeb 06/06 06/06 [place] Delgado /2017 [facility] Outpatient [id number] CARLOS 06/09 Activ e Memorial SUSTACHE /2017 [facility] Outpatient [id number] Carlos 06/09 06/10 Primary [place] /2017 [facility] [place] [facility] Phone [id number] 06/15 06/17 Primary Message /2017 Medical Care Group [facility] Phone [id number] 06/26 06/28 Primary Message /2017 [facility] [place] Outpatient [id number] CARLOS 06/29 Activ e Memorial SUSTACHE [facility] Ambulatory [id number] Carlos 06/29 06/29 Primary Pre-Reg [place] /2017 Medica l Care [facility] [place] Outpatient [id number] CARLOS 07/02 Activ e Memorial SUSTACHE [place] [facility] Outpatient [id number] Carlos 07/02 07/03 MH Primary [place] /2017 [facility] [place] [facility] Phone [id number] 07/27 07/29 Primary Message /2017 [facility] [place] [facility] Phone [id number] 07/28 07/30 Primary Message /2017 [facility] [place] Outpatient [id number] CORTNEY 10/06 Active Memorial ALAS [place] [facility] Outpatient [id number] Carlos 10/06 10/07 Primary [place] /2017 [facility] [place] [facility] Phone [id number] 11/06 11/08 Primary Message /2017 [facility] [place] [facility] Phone [id number] 12/30 01/01 Primary Message /2017 [facility] [place] [facility] Phone [id number] 12/30 01/01 Primary Message /2017 [facility] [place] [facility] Phone [id number] 01/05 01/07 Primary Message /2017 [facility] [place] Outpatient [id number] CORTNEY01/05 [id number] Carlos 01/05 01/06 Primary [place] /2017 [facility] [place] [facility] Outpt Diag [id number] Cortney 01/05 01/06 OPID Outpatient Services [place] /2017 [place] [facility] [place] [facility] Phone [id number] 01/08 01/10 Primary Message /2017 [facility] Care [facility] [place] [facility] Phone [id number] 01/08 01/10 Primary Message /2017 [facility] [place] [facility] Outside [id number] 01/19 01/21 Primary Medical /2017 Medical Care Records Group [place] Outpatient [id number] CARLOS 06/14 Activ e Memorial [facility] Outpatient [id number] Carlos 06/14 06/15 MH Primary Sustache /2018 [facility] Between [id number] 06/16 06/17 Primary Visit /2018 [facility] [id number] Epifanio 07/28 07/29 [facility] [place] [facility] [place] /2018 [facility] Outpatient [id number] Carlos 09/03 Activ e [facility] /2018 [place] [facility] Outpatient [id number] Carlos 09/03 09/04 MH Primary Sustache /2018 [facility] Between [id number] 09/06 09/07 Primary Visit /2018 [facility] Outpatient [id number] Carlos 09/22 Activ e [facility] /2018 [facility] Outpatient [id number] Carlos 09/22 09/23 Primary Sustache /2018 [facility] Between [id number] 09/22 09/23 Primary Visit /2018 [facility] Between [id number] 09/24 09/25 Primary Visit /2018 [facility] Between [id number] 09/27 09/28 Primary Visit /2018 [facility] Outpatient [id number] Carlos 12/31 [facility] /2018 [facility] Outpatient [id number] Carlos 12/31 01/01 Primary Sustache /2018 [facility] Between [id number] 01/03 01/04 Primary Visit /2018 [facility] Outpatient [id number] Carlos 10/06 [facility]2019 [facility] [id number] Carlos 10/06 [facility] /2019 [facility] Ambulatory [id number] Carlos 10/06 10/06 Primary Pre-Reg [facility]ustache /2019 [facility] Between [id number] 10/06 10/07 Primary Visit /2019 [facility] Procedures Procedure Code Date Perfomer Comments Source Removal of [id number] 03/30/2013 [facility] gallbladder Group,[facility], [place] JESSICA Browning,PAULETTE [place], [place] colonoscopy [id number] 03/30/2008 [facility] vaginal Pap smear 45074 03/30/2008 [facility] mammogram [id number] 03/30/1999 [facility] Bilateral tubal [id number] Medica l ligation Group,[facility], [facility] [place], OP[facility] [place], [place] Carpal tunnel [id number] Medical release Group,[facility], [facility] [place], [facility] [place], [place] Mammogram [id number] Medical Group,[facility], [facility] [place] Assessment and Plan No Data Provided for [...] Smoking Cessation Counseling No entered on: 06/14/18 [id number] Social History [facility]Response [facility] Sub[facility] 1 Alcohol 2 Smoking Status Never smoker; Ready to change: No; Elizabeth rns about tobacco use in household: No; Exposure to Tobacco Smoke None; Cigarette Smoking Last 365 Days No; Reg Smoking Cessation Counseling No entered on: 07/28/18 [id number] Social History TypeResponse 07/02/2017 [facility] Substance Abuse 1 Alcohol 2 Smoking Status Never smoker; Ready to change: No; Elizabeth rns about tobacco use in household: No; Exposure to Tobacco Smoke None; Cigarette Smoking Last 365 Days No; Reg Smoking Cessation Counseling No entered on: 01/05/18 [id number] Social History TypeResponse 07/02/2017 [facility] Alcohol 1 Substance Abuse 2 Smoking Status Never smoker; Ready to change: No; Elizabeth rns about tobacco use in household: No; Exposure to Tobacco Smoke None; Cigarette Smoking Last 365 Days No; Reg Smoking Cessation Counseling No entered on: 12/31/18 [id number] Social History TypeResponse 03/12/2016 JESSICA kang Smoking [...]
--- OUTSIDE RECORDS SUMMARY | 2020-01-09 22:17 | XMS REPORT | Continuity of Care Document ---
:[address] [facility] t Address [address] [place] [address] Care Team Providers Name Role Phone Silvio [...] - 14:19:00 l OPINION F/U AND 00:00: Joés Miguel samaniego 2ND 00 OPINION Active 07/20/2018 [facility] KNEE PAIN Diagnosis Active 2017-06-06 Memoria 06-05 08:32:00 l KNEE 00:00: [place] PAIN 00 Active 06/05/2017 [facility] Mart BOBDC-NAUSE Diagnosis Active 2016-12-07 Memoria A, KATHERINE 10-30 15:15:00 l SATIETY 00:00: [place] BDDC-NAUSE 00 A, EARLY SATIETY Active 10/30/2016 [facility] STOMACH Diagnosis Active 2015-032016-03-17 Me moria PAIN 04-27 13:47:00 l STOMACH 00:00: Mart PAIN 00 Active 02/26/2016 [facility] WEAKNES Diagnosis Active 2015-09-16 Me moria AND BLURY 09-15 17:12:00 l VISION WEAKNES 00:00: [place] AND BLURY 00 VISION Active 09/16/2015 [place] BDDC - NEW Diagnosis Active 2014-032015-03-14 Memoria PT CONSULT - 14:16:00 l BDDC - 00:00: Mart NEW PT 00 CONSULT Active 03/14/2015 [facility] BDDC/ Diagnosis Active 2014-032015-04-30 Mem oria Z12.11 2- 11:17:00 l SCREENING BDDC/ 00:00: José Miguel n FOR Z12.11 00 MALIGNANT SCREENING ALICIA FOR MALIGNANT ALICIA Active 03/14/2015 [facility] PAIN IN Diagnosis Active 2014-032015-04-21 Me moria THE 05-06 15:39:00 l ABDOMEN; PAIN IN 00:00: Jada nn UPPER AND THE 00 LOWER STO ABDOMEN; UPPER AND LOWER STO Active 03/05/2015 [facility] Screening Problem Active 2019-10-10 Me rivera mammograph 08-23 21:44:33 l y 00:00: Mart (procedure Screening 00 ) mammograph y (procedure ) Active 08/23/2014 Problem 10/10/2019 Data migrated from [employer] on 10/04/14. Medical Group,[facility], Ryan Sparks [place], JESSICA Cody,[facility] [place] Vitamin D Problem Active 2019-10-10 Me moria deficiency 08-23 21:44:33 l (disorder) Vitamin 00:00: Her sellers D 00 deficiency (disorder) Active 08/23/2014 Problem 10/10/2019 Data migrated from [facility] [facility] on 10/04/14. Medical Group,[facility], Ryan Sparks [place], JESSICA Cody,M H [place] VITAMIN D Condition Active 2014-08-23 Memoria DEFICIENCY 08-23 16:24:00 l VITAMIN 00:00: [place] D 00 DEFICIENCY Active 08/23/2014 Condition 5 [facility] DIARRHEA Condition Active 2014-08-23 M emoria 08-23 16:24:00 l DIARRHEA 00:00: José Miguel n 00 Active 08/23/2014 [facility] MAMMOGRAM Condition Active 2014-08-23 Memoria YEARLY 08-23 16:24:00 l SCREENING 00:00: Mart MAMMOGRAM 00 YEARLY SCREENING Active 08/23/2014 Condition 5 [facility] Gastritis Problem Active 2019-10-10 Me moria (disorder) 08-22 21:44:33 l 00:00: [place] Gastritis 00 (disorder) Active 08/22/2014 Problem 10/10/2019 Data migrated from [facility] [facility] on 10/04/14. Medical Group,[facility], [place],M H OPID [place], JESSICA Cody,M H [place] Multiple Problem Active 2019-10-10 Mem oria joint pain 08-22 21:44:33 l (finding) Multiple 00:00: Her sellers joint pain 00 (finding) Active 08/22/2014 Problem 10/10/2019 Data migrated from [employer] on 10/04/14. Medical Group,[facility], [place],M H OPID [place], JESSICA Cody,M H [place] Muscle Problem Active 2019-10-10 Memor ia pain 08-22 21:44:33 l (finding) Muscle 00:00: Jada nn pain 00 (finding) Active 08/22/2014 Problem 10/10/2019 Data migrated from [employer] on 10/04/14. [facility], [place],M H OPID [place], JESSICA Cody,M H [place] Nausea Problem Active 2019-10-10 Memor ia (finding) 08-22 21:44:33 l Nausea 00:00: Mart (finding) 00 Active 08/22/2014 Problem 10/10/2019 Data migrated from [employer] on 10/04/14. [facility], [place],M H OPID [place], JESSICA Cody,M H [place] MYALGIA Condition Active 2014-08-23 Me moria 08-22 [...] Active 08/08/2014 Problem 10/10/2019 Data migrated from [facility] on 10/04/14. Medical Group,[facility], [place],M H OPID [place], JESSICA Cody,M H [place] Numbness Problem Active 2019-10-10 Mem oria (finding) 08-08 21:44:33 l Numbness 00:00: José Miguel n (finding) 00 Active 08/08/2014 Problem 10/10/2019 Data migrated from [facility] on 10/04/14. [facility], [place],M H OPID [place], JESSICA Cody,M H [place] Reactive Problem Active 2019-10-10 Mem oria hypoglycem 08-08 21:44:33 l ia Reactive 00:00: José Miguel n (disorder) hypoglycem 00 ia (disorder) Active 08/08/2014 Problem 10/10/2019 Data migrated from [facility] on 10/04/14. [facility], [place],M H OPID [place], JESSICA Cody,M H [place] HYPOGLYCEM Condition Active 2014-08-23 Memoria IA, 08-08 [...] Mem oria 9- 13:51:00 l NAUSEA 00:00: [place] 00 Active 11/30/2013 [place] ABDOMINAL Condition Active 2013-11-07 Memoria PAIN, LEFT 11-07 14:05:00 l UPPER 00:00: Mart QUADRANT ABDOMINAL 00 PAIN, LEFT UPPER QUADRANT Active 11/07/2013 Condition [facility] ACID Condition Active 2014-08-23 Mem oria REFLUX - 16:24:00 l DISEASE ACID 00:00: Mart REFLUX 00 DISEASE Active 10/05/2013 Condition 5 [facility] MUSCLE Condition Active 2013-10-05 Mem oria STRAIN 10-05 14:17:34 l MUSCLE 00:00: [place] STRAIN 00 Active 10/05/2013 Condition 4 [facility] ROTATOR Condition Active 2014-08-23 Mi moria CUFF - 16:24:00 l (CAPSULE) ROTATOR 00:00: Herm rut SPRAIN CUFF 00 (CAPSULE) SPRAIN Active 10/05/2013 Condition 5 [facility] OBESITY Condition Active 2014-08-23 Me moria 6-05 16:24:00 l OBESITY 00:00: Mart 00 Active 09/01/2013 Condition [facility] LONG-TERM Condition Active 2014-08-23 Memoria (CURRENT) 2-17 16:24:00 l USE OF 00:00: [place] OTHER LONG-TERM 00 MEDICATION (CURRENT) S USE OF OTHER MEDICATION S Active 05/16/2013 Condition [facility] FATIGUE Condition Active 2014-08-23 Mi moria 2-01 16:24:00 l FATIGUE 00:00: [place] 00 Active 04/30/2012 Condition [facility] FLAT FOOT Condition Active 2014-08-23 Memoria 2-01 16:24:00 l FLAT 00:00: Mart FOOT 00 Active 04/30/2012 Condition [facility] HAIR LOSS Condition Active 2014-08-23 Memoria 2-01 16:24:00 l HAIR 00:00: [place] LOSS 00 Active 04/30/2012 Condition [facility] BACK PAIN Condition Active 2014-08-23 Memoria 9- 16:24:00 l BACK 00:00: [place] PAIN 00 Active 12/08/2011 Condition 5 Medical [...] Hypoglycem ia (disorder) Resolved Problem 10/10/2019 Medical Group,[facility], [place],M H OPID [place], JESSICA Cody, H [place] Autoimmune Problem Active 2019-10-10 M emoria disease 21:44:33 l (disorder) José Miguel n Autoimmune disease (disorder) Active Problem 10/10/2019 Medical Group,[facility] Obesity Problem Active 2019-10-10 Marvel fauzia (disorder) 21:44:33 l Obesity [place] (disorder) Active Problem 10/10/2019 Medical Group,[facility], [place],M H OPID [place], JESSICA Cody,M H [place] ASTHMA Condition Active 2014-08-23 Mem oria 16:24:00 l ASTHMA Mart Active Condition 08/23/2014 Medical Group HYPERCHOLE Condition Active 2014-08-23 Memoria STEROLEMIA 16:24:00 l Mart HYPERCHOLE STEROLEMIA Active Condition 08/23/2014 Medical Group FAMILY Condition Active 2014-08-23 Mem oria HISTORY OF 16:24:00 l ASTHMA FAMILY [place] HISTORY OF ASTHMA Active Condition 08/23/2014 Medical Group FH LUNG Condition Active 2014-08-23 Me moria CANCER 16:24:00 l FH LUNG Mart CANCER Active Condition 08/23/2014 Medical Group FH Condition Active 2014-08-23 Mem oria DEPRESSION 16:24:00 l FH Mart DEPRESSION Active Condition 08/23/2014 Medical Group FH Condition Active 2014-08-23 Mem oria DIABETES - 16:24:00 l DM FH [place] DIABETES - DM Active Condition 08/23/2014 Medical Group FH HEART Condition Active 2014-08-23 M emoria DISEASE 16:24:00 l FH HEART José Miguel n DISEASE Active Condition 08/23/2014 Medical Group Acute Problem 2017-2018-07-25 2018-07-25 M emoria sinusitis, 0-16 14:53:54 14:53:54 l unspecifie Acute 04:40: Jada nn d sinusitis, 38 unspecifie d 01/12/2018 07/25/2018 OPID [place] Discharge Problem 2015-09-19 2015-09-19 Memoria Diagnosis: - 00:37:41 00:37:41 l Adult 05:00: [place] hypothyroi Discharge 00 dism Diagnosis: Adult hypothyroi dism 09/16/2015 09/19/2015 [place] Discharge Problem 2013-12-03 2013-12-03 Memoria Diagnosis: 11-30 05:11:13 05:11:13 l Biliary 05:00: [place] colic Discharge 00 Diagnosis: Biliary colic 11/30/2013 12/03/2013 [place] History of Past Illness Condition Condition Condition Status Onset Resolution Last Treating Co mments Source Name Details Category Date Date Treatment Clinician Date Diarrhea Problem Resolve 2019-10-10 2019-10-10 Memoria (finding) d 08-23 21:44:33 21:44:33 l Diarrhea 00:00: José Miguel n (finding) 00 Resolved 08/23/2014 Problem 10/10/2019 Data migrated from [facility] on 10/04/14. Medical Group,[facility],Ryan Durham OPID [place], JESSICA CodyM [place] Sinusitis Problem Resolve 2019-10-10 2019-10-10 Memoria (disorder) d 12-07 21:44:33 21:44:33 l 00:00: [place] Sinusitis 00 (disorder) Resolved 12/08/2011 Problem 10/10/2019 Data migrated from [employer] on 10/14/14.Da ta migrated from [employer] on 10/13/14. Medical Group,[facility],Ryan Durham OPID [place],PAULETTE CodyM H [place] BREAST Condition Inactiv 2013-032014-08-23 2014-08-23 Memoria PAIN, e 04-15 16:24:00 16:24:00 l BILATERAL BREAST 00:00: Jada nn PAIN, 00 BILATERAL Inactive 02/13/2014 Condition 5 [facility] ABDOMINAL Condition Inactiv 2014-08-23 2014-08-23 Memoria PAIN, [...] e 9-10 16:24:00 16:24:00 l DRY 00:00: [place] SOCKET 00 Inactive 12/07/2012 Condition 5 [facility] HEARTBURN Condition Inactiv 2014-08-23 2014-08-23 Memoria e 9-06 16:24:00 16:24:00 l 00:00: [place] HEARTBURN 00 Inactive 12/03/2012 Condition 5 Medical [...] 00 s to drug Sulfa Propensi Active [place] (Sulfona ty to 06-05 Methodi mide adverse [...] ciproflo Active Memori a xacin xacin l [place] Levaquin Levaquin Active Memori a l [place] Food Food Active Memoria Iodine Iodine l [place] NSAIDs NSAIDs Active Memoria l [place] Family History Family Member Diagnosis Comments Start Date Stop Date Source Natural father Heart disease [place] Faith Natural mother Cancer [facility] Social History Social Habit Start Date Stop Date Quantity Comments Source Sex Assigned At [facility] ethodist Tobacco use and 2018-11-18 2018-11-18 Never used [facility] ethodist exposure 00:00:00 00:00:00 Alcohol intake 2018-11-18 2018-11-18 [facility]00 non-drinker of alcohol (finding) Social History 2017-07-02 2017-07-02 [facility] amy 19:52:25 19:52:25 Smoking Status Start Date Stop Date Source Social History [facility] Medications Ordered Filled Start Stop Current Ordering Indication Dosage Frequency Signature Comments Components Source Medication Medication Date Date Medication? Clinician (SIG) Name Name nitrofurant 2018-03 Yes 100 mg = 1 Memoria oin 0-04 cap, PO, l macrocrysta 16:18: BID, X 7 He rmann ls-monohydr 00 day, # 14 ate 100 mg cap, 0 oral Refill(s), capsule Pharmacy: (Macrobid) [id number] tamsulosin Yes .4mg QD Take 1 [place] (FLOMAX) 8-22 capsule Methodi 0.4 mg 00:00: (0.[address] capsule 00 total) by mouth daily. fluconazole Yes See Memori a 150 mg oral 607 Instructio l tablet 14:07: ns, 1 tab José Miguel n 00 PO ONCE a week, # 2 tab, 0 Refill(s), Pharmacy: [facility] [place] [id number] ciclopirox Yes 1 appl, Marvel fauzia 7.7 MG/ML 6-07 TOP, BID, l Topical 14:07: X 28 day, Jada nn Cream 00 # 90 gm, 0 Refill(s), Pharmacy: [facility] [place] [id number] rifaximin Yes 550 mg = 1 Me moria 550 MG Oral 5-01 tab, PO, l Tablet 21:43: TID, # 42 José Miguel n [XIFAXAN] 00 tab, 0 Refill(s), Pharmacy: [facility] pantoprazol Yes 40 mg, PO, Memoria e 5-01 Daily, # l 18:57: 30 tab, 0 [place] 00 Refill(s) Hyoscyamine Yes 0.125 mg = Memoria Sulfate 3-20 1 tab, PO, l 0.125 MG 21:36: QID, PRN Jada nn Disintegrat 00 Spasm, # ing Tablet 40 tab, 1 [Nulev] Refill(s), Pharmacy: [facility] [id number] Sulfamethox Yes 1 tab, PO, Memoria azole 800 3-20 BID, X 7 l MG / 21:36: day, # 14 Mart Trimethopri 00 tab, 0 m 160 MG Refill(s), Oral Tablet Pharmacy: [Bactrim] [facility] [place] [address] clonazePAM Yes 0.5 mg = 1 M emoria 0.5 mg oral 3-20 tab, PO, l tablet 21:36: Daily, PRN Jada nn 00 Anxiety, # 30 tab, 1 Refill(s) Metronidazo Yes 500 mg = 1 Memoria le 500 MG 3-18 tab, PO, l Oral Tablet 19:12: Q8H, X 10 H ermann [Flagyl] 00 day, # 30 tab, 0 Refill(s), Pharmacy: [place] [address] Amoxicillin Yes 875 mg = 1 Memoria 875 MG / 3-18 tab, PO, l Clavulanate 19:12: Q12H, X 10 Mart 125 MG Oral 00 day, # 20 Tablet tab, 0 [Augmentin Refill(s), 875-mg] Pharmacy: [place] [address] Nystatin 2017-03 No 1,000,000 Marvel fauzia [id number] UNT 0-15 unit = 2 l Oral Tablet 13:43: tab, PO, He rmann 00 BID, X 30 day, # 120 tab, 0 Refill(s), Pharmacy: [place] [address] sucralfate 2017-03 Yes 1 gm = 1 Mem oria 1 g oral 0-11 tab, PO, l tablet 19:23: QID, # 120 Jada nn 00 tab, 0 Refill(s), Pharmacy: [place] [address] benzonatate 2017-03 No 100 mg = 1 Memoria 100 MG Oral 0-09 cap, PO, l Capsule 20:31: TID, PRN José Miguel n [Tessalon 00 as needed Perles] for cough, X 7 day, # 21 cap, 0 Refill(s), Pharmacy: [place] [address] Azithromyci 2017-03 No See Memori a n 5 Day 0-09 Instructio l Dose Pack 20:26: ns, Take 2 He rmann 250 mg oral 00 tablets by tablet mouth the first day then 1 tablet by mouth days 2-5., X 5 day, # 6 tab, 0 Refill(s), Pharmacy: [facility] [place] [address] doxycycline 2017-03 Yes 100 mg = 1 Memoria hyclate 100 0-09 tab, PO, l MG Oral 20:13: BID, 0 [place] Tablet 00 Refill(s) clonazePAM 2017-03 No 0.5 [...] Pharmacy: [facility] pregabalin Yes 50 mg = 1 Me moria 50 MG Oral 4-05 cap, PO, l Capsule 20:17: TID, # 90 Jada nn [Lyrica] 00 cap, 0 Refill(s) valACYclovi No 1 gm = 1 Me moria r 1 g oral 4-02 tab, PO, l tablet 18:18: Q8H, X 7 Mart 00 day, # 21 tab, 1 Refill(s), Pharmacy: [facility] valACYclovi No 1 gm = 1 Me moria r 1 g oral 3-13 tab, PO, l tablet 19:40: Q8H, X 7 [place] 00 day, # 21 tab, 1 Refill(s), Pharmacy: [facility] polyethylen No 17 gm, PO, Memoria e glycol 3-13 Daily, X l 3350 oral 19:40: 31 day, # Her sellers powder for 00 527 gm, 1 reconstitut Refill(s), ion Pharmacy: [facility] benzonatate Yes 100 mg = 1 Memoria 100 mg oral 1-02 cap, PO, l capsule 20:29: TID, do [place] 00 not crush or chew, X 10 day, # 30 cap, 0 Refill(s), Pharmacy: [facility] Codeine Yes 5 mL, PO, Memor ia Phosphate 2 1-02 Q12H, PRN l MG/ML / 20:29: cough, X José Miguel n Guaifenesin 00 10 day, # 20 MG/ML 100 mL, 0 Oral Refill(s) Solution [Cheratussi n] Fluticasone Yes 1 spray, Me moria propionate -02 NASAL, l 0.05 20:19: BID, # 16 Mart MG/ACTUAT 00 gm, 2 Metered Refill(s), Dose Nasal Pharmacy: [facility] [id number] Azithromyci Yes See Memori a n 5 Day 1-02 Instructio l Dose Pack 20:19: ns, Take 2 He rmann 250 mg oral 00 tablets by tablet mouth the first day then 1 tablet by mouth days 2-5., X 5 day, # 6 tab, 0 Refill(s), Pharmacy: [facility] [id number] clonazePAM 2016-03 Yes 0.5 mg = 1 M emoria 0.5 mg oral -27 tab, PO, l tablet, 20:26: BID, # 60 Jada nn disintegrat 00 tab, 1 ing Refill(s) EnteraGam 2015-03 Yes EnteraGam, Mi moria 2-14 See l 21:03: Instructio [place] 00 ns, Samples given in clinic on 03/12/16. Lot [id number] exp date 10/15, # 1 box, Refill(s) [...] Chloride 6-19 1,000 l 0.154 22:33: ml/hr, [place] MEQ/ML 00 Infuse Injectable Over: 1 Solution hr, Route: IV, 1,000, Drug form: INJ, ONCE, Priority: STAT, Dosing Weight 85.818 kg, Start date: 09/16/15 17:33:00 CDT, Duration: 1 doses or times, Stop date: 09/16/15 17:33:00 CDT Saline No Notes: Memoria Flush 0.9% 09-15 (Same as: l 22:33: BD [place] 00 Posiflush) cholestyram 2014-03 Yes 4 gm, [...] 00 tab, 1 Tablet Refill(s), [Levsin[facility] Ondansetron 2014-03 Yes 8 mg = 1 Me moria 8 MG 2-17 tab, PO, l Disintegrat 21:16: TID, PRN He rmann ing Tablet 00 Nausea and [Zofran] Vomiting, Dissolve tab under tongue, X 7 day, # 21 tab, 1 Refill(s), [facility] GoLYTELY 2014-03 Yes 240 mL, Memori a oral powder 2-16 PO, l for 21:56: Q10Min, # Mart reconstitut 00 1 ea, 0 ion Refill(s), [facility] Flagyl 2014-03 Yes 500 mg = 1 Memor ia 2-16 tab, PO, l 20:40: BID, # 14 Mart 00 tab, 0 Refill(s) THYROID Yes Memoria COMPOUND 5-27 l 16:24: Mart 00 VITAMIN D Yes 1 capsule Mem oria (ERGOCALCIF 5-27 weekly x l YASH) [id number] 00:00: 12 weeks He rmann UNIT CAPS 00 OMEPRAZOLE Yes Take one Mem oria 20 MG CPDR 5-26 capsule by l 00:00: mouth Mart 00 daily ONDANSETRON Yes 1 tablet Me moria HCL 4 MG 5-26 every 8 l TABS 00:00: hours as Mart 00 needed for nausea/vom iting QSYMIA Yes 1 po qd Memoria 3.75-23 MG 5-12 l [id number] 00:00: [place] 00 CYCLOBENZAP No 1/2-1 po Me moria RINE HCL 10 1-08 TID as l MG TABS 00:00: needed for Herm rut 00 spasms PROMETHAZIN 2013-03 No 1 SUPP NC M emoria E HCL 25 MG 2-13 Q 4 TO 6 l SUPP 00:00: HRS PRN Mart 00 N/V. TRAMADOL 2013-03 Yes 1 tablet Memor ia HCL 50 MG 1-17 every 12 l TABS 00:00: hours as Mart 00 needed for pain GABAPENTIN 2013-03 No 1 capsule Me moria 100 MG CAPS 1-17 three l 00:00: times a [place] 00 day TRAMADOL 2013-03 No 1 tablet Memor ia HCL 50 MG 1-17 every 12 l TABS 00:00: hours as Mart 00 needed for pain TRAMADOL 2013-03 No 1 tablet Memor ia HCL 50 MG 1-17 every 12 l TABS 00:00: hours as [place] 00 needed for pain Promethazin Yes 12.5 [...] 00 0 5 MG Oral Refill(s) Tablet [Devens 5/325] Phenergan No Notes: Do Mem oria [...] qd Memori a 500 MG 1-15 l [id number] 00:00: NULEV 0.125 No 1 po q Marvel fauzia MG TBDP 9-18 8-12 prn l 00:00: ZITHROMAX No Take as Memor ia Z-MADHU 250 9-10 directed l MG TABS 00:00: Vital Signs Vital Name Observation Time Observation Value Comments Source Systolic (mm Hg) 2018-12-31 15:55:00 Marvel rial Mart Diastolic (mm Hg) 2018-12-31 15:55:00 Mem orial Mart Heart Rate 2018-12-31 15:55:00 [facility] Temperature Oral (F) 2018-12-31 15:55:00 [facility] 2018-12-31 15:55:00 160[facility]02 [facility] Weight 2018-12-31 15[facility]55:00 [facility] BMI Calculated 2018-12-31 15:55:00 Memori al Mart BMI Calculated 2018-09-22 20:52:00 Memori al [place] Height 2018-09-22 20:52:00 160.02 cm [facility] Mart Weight 2018-09-22 20:52:00 [facility] Systolic (mm Hg) 2018-09-22 20:52:00 Marvel rial [place] Diastolic (mm Hg) 2018-09-22 20:52:00 Mem orial [place] Heart Rate 2018-09-22 20:52:00 [facility] [place] Temperature Oral (F) 2018-09-22 20:52:00 98.3 F [facility] [place] Systolic (mm Hg) 2018-09-03 13:41:00 Marvel rial [place] Diastolic (mm Hg) 2018-09-03 13:41:00 Mem orial Mart Temperature Oral (F) 2018-09-03 13:41:00 98.7 F [facility] [place] Heart Rate 2018-09-03 13:41:00 [facility] [place] Height 2018-09-03 13:41:00 160.02 cm [facility] [place] BMI Calculated 2018-09-03 13:41:00 Memori al [place] Weight 2018-09-03 13:41:00 [facility] Height 2018-07-28 18:46:00 160.02 cm [facility] [place] Weight 2018-07-28 18:46:00 [facility] [place] BMI Calculated 2018-07-28 18:46:00 Memori al Mart Respitory Rate 2018-07-28 18:46:00 Memori al [place] Heart Rate 2018-07-28 18:46:00 [facility] Systolic (mm Hg) 2018-07-28 18:46:00 Marvel rial Mart Diastolic (mm Hg) 2018-07-28 18:46:00 Mem orial [place] Weight 2018-06-14 18:55:00 [facility] [place] BMI Calculated 2018-06-14 18:55:00 Memori al Mart Height 2018-06-14 18:55:00 160.02 cm [facility] Systolic (mm Hg) 2018-06-14 18:55:00 Marvel rial [place] Diastolic (mm Hg) 2018-06-14 18:55:00 Mem orial [place] Temperature Oral (F) 2018-06-14 18:55:00 97.7 F [facility] Heart Rate 2018-06-14 18:55:00 [facility] [place] Temperature Oral (F) 2018-01-05 20:02:00 99 F [facility] [place] Heart Rate 2018-01-05 20:02:00 [facility] Height 2018-01-05 20:02:00 160.02 cm [facility] Mart Weight 2018-01-05 20:02:00 [facility] [place] BMI Calculated 2018-01-05 20:02:00 Memori al [place] Systolic (mm Hg) 2018-01-05 20:02:00 Marvel rial Mart Diastolic (mm Hg) 2018-01-05 20:02:00 Mem orial [place] BMI Calculated 2017-10-06 19:44:00 Memori al Mart Weight 2017-10-06 19:44:00 [facility] Height 2017-10-06 19:44:00 160.02 cm [facility] [place] Heart Rate 2017-10-06 19:44:00 [facility] [place] Temperature Oral (F) 2017-10-06 19:44:00 98.4 F [facility] [place] Systolic (mm Hg) 2017-10-06 19:44:00 Marvel rial [place] Diastolic (mm Hg) 2017-10-06 19:44:00 Mem orial [place] Temperature Oral (F) 2017-07-02 19:47:00 98.4 F [facility] [place] BMI Calculated 2017-07-02 19:47:00 Memori al [place] Height 2017-07-02 19:47:00 160.02 cm [facility] Systolic (mm Hg) 2017-07-02 19:47:00 Marvel rial [place] Diastolic (mm Hg) 2017-07-02 19:47:00 Mem orial Mart Weight 2017-07-02 19:47:00 [facility] [place] Systolic (mm Hg) 2017-06-09 18:55:00 Marvel rial [place] Diastolic (mm Hg) 2017-06-09 18:55:00 Mem orial [place] Height 2017-06-09 18:55:00 160.02 cm [facility] Mart Weight 2017-06-09 18:55:00 [facility] BMI Calculated 2017-06-09 18:55:00 Memori al Mart Heart Rate 2017-06-09 18:55:00 [facility] Temperature Oral (F) 2017-06-09 18:55:00 98.3 F [facility] Mart BMI Calculated 2017-03-31 19:54:00 Memori al [place] Weight 2017-03-31 19:54:00 [facility] Mart Height 2017-03-31 19:54:00 160.02 cm [facility] Mart Temperature Oral (F) 2017-03-31 19:54:00 99.0 F [facility] [place] Systolic (mm Hg) 2017-03-31 19:54:00 Marvel rial Mart Diastolic (mm Hg) 2017-03-31 19:54:00 Mem orial Mart Weight 2017-02-23 19:45:00 [facility] [place] BMI Calculated 2017-02-23 19:45:00 Memori al Mart Height 2017-02-23 19:45:00 160.02 cm [facility] Systolic (mm Hg) 2017-02-23 19:45:00 Marvel rial [place] Diastolic (mm Hg) 2017-02-23 19:45:00 Mem orial Mart Temperature Oral (F) 2017-02-23 19:45:00 97.9 F [facility] Systolic (mm Hg) 2016-03-12 19:37:00 Marvel rial [place] Diastolic (mm Hg) 2016-03-12 19:37:00 Mem orial [facility] Heart Rate 2016-03-12 19:37:00 [facility] [place] Weight 2016-03-12 19:37:00 [facility] [place] BMI Calculated 2016-03-12 19:37:00 Memori al [place] Height 2016-03-12 19:37:00 160.02 cm [facility] Respitory Rate 2016-03-12 19:37:00 [facility] Respitory Rate 2015-09-16 23:31:00 [facility] Heart Rate 2015-09-16 23:31:00 [facility] Systolic (mm Hg) 2015-09-16 23:31:00 [facility] Diastolic (mm Hg) 2015-09-16 23:31:00 [facility] [place] BMI Calculated 2015-09-16 21:59:00 [facility] Weight 2015-09-16 21:59:00 [facility] Temperature Oral (F) 2015-09-16 21:59:00 98.0 F [facility] Heart Rate 2015-09-16 21:59:00 [facility] Respitory Rate 2015-09-16 21:59:00 [facility] [facility] Height 2015-09-16 21:59:00 160.02 cm [facility] Systolic (mm Hg) 2015-09-16 21:59:00 [facility] Diastolic (mm Hg) 2015-09-16 21:59:00 [facility] BMI Calculated 2015-03-14 20:38:00 [facility] [place] Weight 2015-03-14 20:38:00 [facility] Height 2015-03-14 20:38:00 160.02 cm [facility] Heart Rate 2015-03-14 20:38:00 [facility] Temperature Oral (F) 2015-03-14 20:38:00 97.9 F [facility] Systolic (mm Hg) 2015-03-14 20:38:00 [facility] [place] Diastolic (mm Hg) 2015-03-14 20:38:00 [facility] [place] Height 2014-08-23 20:15:21 [facility] Temperature Oral (F) 2014-08-23 20:15:21 97.9 F [facility] Systolic (mm Hg) 2014-08-23 20:15:21 [facility] [place] Diastolic (mm Hg) 2014-08-23 20:15:21 [facility] Heart Rate 2014-08-23 20:15:21 [facility] Weight 2014-08-23 20:15:21 [facility] Height 2014-08-22 18:24:51 [facility] Weight 2014-08-22 18:24:51 [facility] Temperature Oral (F) 2014-08-22 18:24:51 96.2 F [facility] Systolic (mm Hg) 2014-08-22 18:24:51 [facility] [place] Diastolic (mm Hg) 2014-08-22 18:24:51 [facility] Heart Rate 2014-08-22 18:24:51 [facility] Height 2014-08-08 13:49:47 [facility] Weight 2014-08-08 13:49:47 [facility] Temperature Oral (F) 2014-08-08 13:49:47 97.5 F [facility] Systolic (mm Hg) 2014-08-08 13:49:47 [facility] Diastolic (mm Hg) 2014-08-08 13:49:47 [facility] Heart Rate 2014-08-08 13:49:47 [facility] Weight 2014-04-06 19:44:51 [facility] Temperature Oral (F) 2014-04-06 19:44:51 96.9 F [facility] Systolic (mm Hg) 2014-04-06 19:44:51 [facility] Diastolic (mm Hg) 2014-04-06 19:44:51 [facility] Heart Rate 2014-04-06 19:44:51 [facility] Height 2014-02-13 17:13:31 [facility] Weight 2014-02-13 17:13:31 [facility] Temperature Oral (F) 2014-02-13 17:13:31 98.4 F [facility] Heart Rate 2014-02-13 17:13:31 [facility] Systolic (mm Hg) 2014-02-13 17:13:31 [facility] Diastolic (mm Hg) 2014-02-13 17:13:31 [facility] Systolic (mm Hg) 2013-11-30 21:22:00 [facility] [place] Diastolic (mm Hg) 2013-11-30 21:22:00 [facility] [place] Respitory Rate 2013-11-30 21:22:00 [facility] Heart Rate 2013-11-30 21:22:00 [facility] Systolic (mm Hg) 2013-11-30 19:00:00 [facility] Diastolic (mm Hg) 2013-11-30 19:00:00 [facility] [place] Heart Rate 2013-11-30 19:00:00 [facility] Respitory Rate 2013-11-30 19:00:00 [facility] Weight 2013-11-30 17:06:00 [facility] Height 2013-11-30 17:06:00 160.02 cm [facility] BMI Calculated 2013-11-30 17:06:00 [facility] Temperature Oral (F) 2013-11-30 17:06:00 98.2 F [facility] Respitory Rate 2013-11-30 17:06:00 [facility] Heart Rate 2013-11-30 17:06:00 [facility] Diastolic (mm Hg) 2013-11-30 17:06:00 [facility] Systolic (mm Hg) 2013-11-30 17:06:00 [facility] Height 2013-11-21 16:45:30 [facility] Weight 2013-11-21 16:45:30 [facility] Systolic (mm Hg) 2013-11-21 16:45:30 [facility] [place] Diastolic (mm Hg) 2013-11-21 16:45:30 [facility] Heart Rate 2013-11-21 16:45:30 [facility] Weight 2013-11-07 16:51:30 [facility] Temperature Oral (F) 2013-11-07 16:51:30 98.2 F [facility] Systolic (mm Hg) 2013-11-07 16:51:30 [facility] [place] Diastolic (mm Hg) 2013-11-07 16:51:30 [facility] Heart Rate 2013-11-07 16:51:30 [facility] Weight 2013-10-25 18:37:21 [facility] Temperature Oral (F) 2013-10-25 18:37:21 97.9 F [facility] Respitory Rate 2013-10-25 18:37:21 [facility] Heart Rate 2013-10-25 18:37:21 [facility] Systolic (mm Hg) 2013-10-25 18:37:21 [facility] Diastolic (mm Hg) 2013-10-25 18:37:21 [facility] [place] Weight 2013-10-05 19:17:34 [facility] Temperature Oral (F) 2013-10-05 19:17:34 97.7 F [facility] Heart Rate 2013-10-05 19:17:34 [facility] Systolic (mm Hg) 2013-10-05 19:17:34 [facility] [place] Diastolic (mm Hg) 2013-10-05 19:17:34 [facility] [place] Temperature Oral (F) 2013-09-01 20:40:23 98.3 F [facility] Weight 2013-09-01 20:40:23 [facility] Systolic (mm Hg) 2013-09-01 20:40:23 [facility] [place] Diastolic (mm Hg) 2013-09-01 20:40:23 [facility] [facility] Heart Rate 2013-09-01 20:40:23 [facility] Weight 2012-12-07 15:01:11 [facility] Temperature Oral (F) 2012-12-07 15:01:11 97.4 F [facility] Systolic (mm Hg) 2012-12-07 15:01:11 [facility] Diastolic (mm Hg) 2012-12-07 15:01:11 [facility] [facility] Heart Rate 2012-12-07 15:01:11 [facility] Systolic (mm Hg) 2012-12-03 14:46:01 [facility] Diastolic (mm Hg) 2012-12-03 14:46:01 [facility] Heart Rate 2012-12-03 14:46:01 [facility] Temperature Oral (F) 2012-12-03 14:46:01 98.0 F [facility] Weight 2012-12-03 14:46:01 [facility] Weight 2012-07-29 20:41:00 [facility] Temperature Oral (F) 2012-07-29 20:41:00 97.2 F [facility] Systolic (mm Hg) 2012-07-29 20:41:00 [facility] [place] Diastolic (mm Hg) 2012-07-29 20:41:00 [facility] Heart Rate 2012-07-29 20:41:00 [facility] Weight 2012-04-30 15:58:31 [facility] Systolic (mm Hg) 2012-04-30 15:58:31 [facility] Diastolic (mm Hg) 2012-04-30 15:58:31 [facility] Heart Rate 2012-04-30 15:58:31 [facility] Temperature Oral (F) 2012-04-30 15:58:31 96.6 F [facility] Height 2011-12-08 14:51:31 [facility] Weight 2011-12-08 14:51:31 [facility] Temperature Oral (F) 2011-12-08 14:51:31 97.5 F [facility] Systolic (mm Hg) 2011-12-08 14:51:31 [facility] Diastolic (mm Hg) 2011-12-08 14:51:31 [facility] [place] Heart Rate 2011-12-08 14:51:31 [facility] Procedures Procedure Date / Time Performed Performing Clinician [facility] jody Removal of gallbladder 2013-03-30 06:00:00 David lopez [place] colonoscopy 2008-03-30 17:58:11 [facility] vaginal Pap smear results 2008-03-30 15:51:31 Mi morial [place] mammogram 1999-03-30 15:51:31 [facility] Bilateral tubal ligation [facility] [place] Carpal tunnel release [facility] Plan of Care Planned Activity Planned Date Details Comments Source Future Scheduled 2019-10-29 INFLUENZA VACCINE [facility] 00:00:00 [code = INFLUENZA VACCINE] Future Scheduled 2006 BREAST CANCER [facility] 00:00:00 SCREENING [code = BREAST CANCER SCREENING] Future Scheduled 2006 COLONOSCOPY SCREENING [facility] 00:00:00 [code = COLONOSCOPY SCREENING] Future Scheduled 2006 SHINGLES VACCINES [facility] 00:00:00 (#1) [code = SHINGLES VACCINES (#1)] Future Scheduled 1977 Screening for [facility] 00:00:00 malignant neoplasm of cervix (procedure) [code = 452697282] Encounters Start End Encounter Admission Attending Care Care Encounter Source Date/Time Date/Time Type Type Clinicians Facility Department ID 2019-10-07 2019-10-08 Outpatient [facility] MG [id number] 15:30:17 15:30:17 68 2019-10-07 2019-10-07 [place] [id number] 15:30:00 15:30:00 Carlos 27 2019-01-03 2019-01-04 Outpatient [facility] MH[facility] [id number] 17:03:00 17:03:00 67 2018-12-31 2018-12-31 Outpatient Sustache, [facility] MHMG [id number] 11:00:00 23:59:59 Carlos 26 2018 2018-09-28 Outpatient MG MG [id number] 09:45:47 09:45:47 65 2018-09-24 2018-09-25 Outpatient [facility] MG [id number] 12:35:02 12:35:02 64 2018-09-22 2018-09-23 Outpatient [facility] MHMG [id number] 16:49:52 16:49:52 63 2018-09-22 2018-09-22 Outpatient Sustache, [facility] MHMG [id number] 13:30:00 23:59:59 Carlos 25 2018-09-06 2018-09-07 Outpatient [facility] MH[facility] [id number] 08:31:31 08:31:31 61 2018-09-03 2018-09-03 Outpatient Sustache, [facility] MHMG [id number] 09:00:00 23:59:59 Carlos 24 2018-07-28 2018-07-28 Outpatient Kamron, [facility] [id number] 01:39:00 23:59:00 Epifanio Velasquez 2018-07-28 2018-07-28 Outpatient [facility] MH [id number] [facility] 01:39:00 01:39:00 2018-06-16 2018-06-17 Outpatient [facility] MH[facility] [id number] 15:32:41 15:32:41 59 2018-06-14 2018-06-14 Outpatient Sustache, [facility] MHMG [id number] 14:10:00 23:59:59 Carlos 23 2018-01-19 2018-01-20 Outpatient [facility] MHMG [id number] 11:25:00 23:59:59 38 2018-01-08 2018-01-09 Outpatient [facility] [id number] 08:55:00 23:59:59 37 2018-01-08 2018-01-09 Outpatient [facility] MH[facility] [id number] 08:54:00 23:59:59 36 2018-01-05 2018-01-06 Outpatient [facility] MH[facility] [id number] 08:32:00 23:59:59 35 2018-01-05 2018-01-05 Outpatient Sustache, [facility] MH[facility] [id number] 14:50:00 23:59:59 Carlos 22 2018-01-05 2018-01-05 Outpatient Alas, 2.16.840. 2.16.840.1. 4 [id number] 16:42:00 23:59:00 Mercedez [id number] 3.615.29 5.29 2017-12-30 2017-12-31 Outpatient [facility] MHMG [id number] 15:39:00 23:59:59 34 2017-12-30 2017-12-31 Outpatient [facility] MH[facility] [id number] 10:11:00 23:59:59 33 2017-11-06 2017-11-07 Outpatient [facility] [id number] 16:20:00 23:59:59 32 2017-10-06 2017-10-06 Outpatient Sustache, [facility] MHMG [id number] 14:30:00 23:59:59 Carlos 21 2017-07-28 2017-07-29 Outpatient [facility] MHMG [id number] 15:09:00 23:59:59 31 2017-07-28 2017-07-29 Outpatient [facility] [id number] 15:09:00 23:59:59 31 2017-07-27 2017-07-28 Outpatient [facility] MH[facility] [id number] 08:56:00 23:59:59 30 2017-07-27 2017-07-28 Outpatient [facility] MH[facility] [id number] 08:56:00 23:59:59 30 2017-07-02 2017-07-02 Outpatient Sustache, [facility] MHMG [id number] 14:50:00 23:59:59 Carlos 20 2017-06-29 2017-06-29 Outpatient Sustache, [facility] MH[facility] [id number] 14:50:00 14:50:00 Carlos 19 2017-06-26 2017-06-27 Outpatient [facility] [id number] 14:14:00 23:59:59 27 2017-06-15 2017-06-16 Outpatient [facility] [id number] 14:19:00 23:59:59 26 2017-06-09 2017-06-09 Outpatient Sustache, [facility] [id number] 13:50:00 23:59:59 Carlos 18 2017-06-05 2017-06-06 Outpatient [facility] MH[facility] [id number] 11:21:00 23:59:59 25 2017-06-05 2017-06-05 Outpatient Danny, [facility] [id number] 20:21:00 20:28:00 Zeb Damon 17 2017-06-05 2017-06-05 Outpatient Danny, [facility] [id number] 20:21:00 20:28:00 Zeb Damon 17 2017-03-31 2017-03-31 Outpatient Sustache, [facility] MH[facility] [id number] 13:50:00 23:59:59 Carlos 17 2017-03-12 2017-03-13 Outpatient [facility] [id number] 14:29:00 23:59:59 24 2017-03-09 2017-03-10 Outpatient [facility] MH[facility] [id number] 08:24:00 23:59:59 23 2017-02-23 2017-02-23 Outpatient Sustache, [facility] [id number] 13:50:00 23:59:59 Carlos 16 2016-03-25 2016-03-25 Outpatient [place], 2.16.840. 2.16.840.1. 4 [id number] 09:58:00 23:59:00 Epifanio [id number] Velasquez [id number] 5.35 2016-03-12 2016-03-12 Outpatient Kamron, [facility] [id number] 13:31:00 23:59:00 Epifanio La Ron 2015-09-16 2015-09-16 Outpatient Deena, [facility] SL [id number] 16:47:00 19:06:00 Michelle Filiberto Gallardo 2015-04-30 2015-04-30 Outpatient Kamron, [facility] [id number] 11:15:00 14:00:00 Epifanio Kelsy Ron 2015-03-14 2015-03-14 Outpatient Kamron, [facility] [id number] 14:09:00 23:59:00 Epifanio Valentina Ron 2015-02-23 2015-02-23 Outpatient Ann Marie, 2.16.840. 2.16.840.1. [id number] 06:58:00 23:59:00 Sb Ramos [id number] 5.29 2013-11-30 2013-11-30 Outpatient Desean Mosquera [facility] [id number] 11:56:00 17:05:00 00 Results Test Description Test Time Test Comments Results Result [facility] e Comments SURG 2018-01-01 11:22:00 RUN DATE: 01/01/18 [facility] - LAB *LIVE* PAGE 1 RUN TIME: 1122 Specimen Inquiry RUN USER: INTERFACE PAT IENT: BOZENA MARSH LOC: [facility] U #: [id number] AGE/SX: 62/F ROOM: RE12/31/17REG DR: Raz Gaspar III : 57 BED: DIS: STATUS: [facility]P [facility] TLOC: SPEC #: PMC:[id number] RECD: 12/31/17 STATUS: HENRY DANNY #: [id number] SHYANN: 12/31/[address] [facility] [address]: Raz Gaspar III, MD ENTERED: 12/31/17 SP TYPE: SURG OTHR DR: No Primary or Family PhysicianORDERED: SURG PATH LVL 1, SURG PATH LVL 4 COPIES TO: No Primary [place] [id number] [facility] [address] [place], [place] [address] HISTOLOGY: TISSUE ID BLK PCS ANAIS LEV PROCEDURE DISPOSITION ____ ___ ___ ___ NASAL TURBINATE A 1 1 NASAL SEPTUM, N B 1 1 PROCEDURES: SURG PATH LVL 1 (01/01/18-1103) SURG PATH LVL 4 (01/01/18) TISSUES: A. NASAL TURBINATE, NOS - BILATERAL INFERIOR TURBINATES B. NASAL SEPTUM, NOS - SEPTUM CPT CODES CPT CODE(S): 46476 , 17218 , , , , , FINAL DIAGNOSIS A. Inferior turbinate, bilateral, endoscopic sinus surgery: SINUS CONTENTS CONSISTENT WITH CHRONIC SINUSITIS B. Nasal septum, septoplasty: BONE AND CARTILAGE (GROSS ONLY) GROSS DESCRIPTION A. Bilateral inferior turbinates. Received in formalin are irregular fragments of sauceda-brown soft tissue admixed with dark brown blood clots, 2.7 x 1.8 x 1.0 cm in aggregate. Purchasing Manager sections submitted as A. B. Septum. Received in formalin are multiple irregular fragments of cartilage CONTINUED ON NEXT PAGE RUN DATE: 01/01/18 [facility] - LAB *LIVE* PAGE 2 RUN TIME: 1122 Specimen Inquiry RUN USER: INTERFACE MERRICK Glez #: [facility]:[id number] PATIENT: BOZENA MARSH #[id number] (Continued)-------- -------- GROSS DESCRIPTION (Continued) and bones, 5.0 x 3.5 x 0.7 cm in aggregate. The specimen is photographed for gross identification only. ba/nr Grossing performed at [facility] Pathology, [facility], [address], [place] [address]. Code Official: Ralph Dash M.D. MICROSCOPIC DESCRIPTION A. Bilateral inferior turbinates. Fragments of respiratory epithelium lined mucosa. There are benign mucus glands and a chronic inflammatory infiltrate. Fragments of unremarkable cartilage and bone present. No evidence of malignancy. B. Septum. For gross identification only. /doug Signed SIGNATURE ON FILE Emmanuel Chatterjee 01/01/18 1122 END OF REPORT CARDIAC ENZYMES 2015-09-16 <0.02 [facility] 22:47:00 [place] CARDIAC ENZYMES 2015-09-16 <0.5 [facility] 22:47:00 [facility] CARDIAC ENZYMES 2015-09-16 54 [facility] 22:47:00 [place] CARDIAC ENZYMES 2015-09-16 <0.9 [facility] 22:47:00 [place] CHEM PANEL 2015-09-16 7.0 [facility] 22:47:00 [facility] CHEM PANEL 2015-09-16 71 [facility] 22:47:00 [place] CHEM PANEL 2015-09-16 3.3 [facility] 22:47:00 [facility] CHEM PANEL 2015-09-16 1.1 [facility] 22:47:00 [place] CHEM PANEL 2015-09-16 0.8 [facility] 22:47:00 [place] CHEM PANEL 2015-09-16 77 [facility] 22:47:00 [facility] CHEM PANEL 2015-09-16 12.7 [facility] 22:47:00 [facility] CHEM PANEL 2015-09-16 18 [facility] 22:47:00 [facility] CHEM PANEL 2015-09-16 3.7 [facility] 22:47:00 [place] CHEM PANEL 2015-09-16 24 [facility] 22:47:00 [place] CHEM PANEL 2015-09-16 18 [facility] 22:47:00 [facility] CHEM PANEL 2015-09-16 108 [facility] 22:47:00 [facility] CHEM PANEL 2015-09-16 3.7 [facility] 22:47:00 [place] CHEM PANEL 2015-09-16 28 [facility] 22:47:00 [place] CHEM PANEL 2015-09-16 8.6 [facility] 22:47:00 [place] CHEM PANEL 2015-09-16 145 [facility] 22:47:00 [place] CHEM PANEL 2015-09-16 0.90 [facility] 22:47:00 [facility] CHEM PANEL 2015-09-16 16 [facility] 22:47:00 [facility] CHEM PANEL 2015-09-16 102 [facility] 22:47:00 [place] HEMATOLOGY 2015-09-16 8.8 [facility] 22:47:00 [place] HEMATOLOGY 2015-09-16 5.39 [facility] 22:47:00 [facility] HEMATOLOGY 2015-09-16 88.0 [facility] 22:47:00 [place] HEMATOLOGY 2015-09-16 15.6 [facility] 22:47:00 [place] HEMATOLOGY 2015-09-16 22:47:00 Test Item Value Reference Range Interpretation Comme nts MCH (test code = MCH) 29.0 pg 27.0-31.0 [facility] ZtictleFMEMHOTPAA1848-12-57 22:47:009.5[facility]annHEMATOLOGY 2015-09-16 22:47:26623Psttrqjj InfelxzQFZWNAJQRT3167-71-42 22:47:0033.0[facility] QpmytgkLJKHYKJOPH9545-11-92 22:47:0013.3[facility] TkfnnacHYBKTNSUDF0075-01-32 22:47:0047.5[facility] ItaisqsMTBFYNDGCN3390-84-14 22:47:000.5[facility] HERNNXFPKO6153-26-32 22:47:001.1[facility] LfuywysLDJOQSQPVC4225-20-22 22:47:006.3 [facility] XcfjmyuKLCZVPYZJR5212-80-45 22:47:0054.0[facility]ann[facility]MATOLOGY 2015-09-16 22:47:0038.1[facility] MblguatKZYRJGXBPZ5967-46-17 22:47:000.0[facility] EuhfcieVOLEMIGZFG4017-34-48 22:47:000.1[facility] WbpryqxAMQVYZKBPK7054-07-22 22:47:000.6[facility] KojbguaJXYPVZZLWG0830-03-14 22:47:003.4[facility] DCORIRGAFP5022-85-24 22:47:004.7[facility]ann[facility]INE AND GLEOK1104-37-64 22:47:00None Seen (09/16/15 5:47 PM)[facility] ODNNK6864-07-55 22:47:00Negative (09/16/15 5:47 PM)[facility] NMYVJ2842-40-93 22:47:00Negative (09/16/15 5:47 PM)[facility] BEKTG8908-32-19 22:47:00None Seen (09/16/15 5:47 PM)[facility] XMQCV5762-16-29 22:47:00Performed (09/16/15 5:47 PM)[facility] FFFOP6301-70-84 22:47:00Negative (09/16/15 5:47 PM)[facility] QDMST2579-21-68 22:47:00Negative (09/16/15 5:47 PM)[facility] PAVXK0853-73-67 22:47:00 Test Item Value Reference Range Interpretation Comments UA pH (test code = UA pH) 6.0 1 5.0-8.0 [facility] OIMIF9640-72-05 22:47:00Negative *NA*(09/16/15 5:47 PM) [facility] ZFEXT2169-79-37 22:47:00Negative *NA*(09/16/15 5:47 PM) [facility] KHNVR7592-00-07 22:47:000.2[facility] IPYOK2001-94-40 22:47:00Trace *ABN*(09/16/15 5:47 PM)[facility] FPYUD2568-42-23 22:47:00Clear (09/16/15 5:47 PM)[facility] STOOL 2015-09-16 22:47:00Yellow *NA*(09/16/15 5:47 PM)[facility] STOOL 2015-09-16 22:47:00 Test Item Value Reference Range Interpretation Comments UA Spec Grav (test code = UA Spec 1.025 1 Grav) [facility] KcogdkfIcvplkvt4668-55-24 21:24:000.6 U/mLMemorial HermannChemistry 2014-08-22 19:06:000.96[facility] PnkvgmmYeppzxnpds3254-53-33 19:06:001[facility] UduiborDcwsbltk0192-11-27 19:06:00NegativeMemorial HermannURINE AND STOOL 2013-11-30 19:00:45Negative *NA*(11/30/13 2:00 PM)[facility] STOOL 2013-11-30 19:00:45Trace *ABN*(11/30/13 2:00 PM)[facility] STOOL 2013-11-30 19:00:450.2[facility] EQMHK7256-39-60 19:00:45 Test Item Value Reference Range Interpretation Comments UA pH (test code = UA pH) 6.0 1 5.0-8.0 [facility] [id number] 19:00:45Negative *NA*(11/30/13 2:00 PM) [facility] EZISJ8300-09-30 19:00:45Negative (11/30/13 2:00 PM) [facility] VQUPC4303-51-75 19:00:45Negative (11/30/13 2:00 PM) [facility] VNSVF9103-03-17 19:00:45Clear (11/30/13 2:00 PM)[facility] JFDCJ4537-67-17 19:00:45 Test Item Value Reference Range Interpretation Comments UA Spec Grav (test code = UA Spec 1.020 1 Grav) [facility] [id number] 19:00:45Yellow *NA*(11/30/13 2:00 PM) [facility] [id number] 19:00:45Negative (11/30/13 2:00 PM) [facility] ZMXRX6805-16-02 19:00:45Negative (11/30/13 2:00 PM) [facility]annCHEM CPFYL6806-30-74 17:35:0016[facility] HermannCHEM PANEL 2013-11-30 17:35:0014.0[facility] HermannCHEM TOKBO0838-66-43 17:35:003.9[facility] HermannCHEM QQLQG4873-91-08 17:35:001.1[facility] HermannCHEM ANYZY4058-22-35 17:35:0071[facility] HermannCHEM LGYNQ0338-38-21 17:35:0031[facility] HermannCHEM XQXIR2614-71-51 17:35:0025[facility] HermannCHEM YQUTU9479-63-00 17:35:0093 [facility]annCHEM HNNUE6650-28-41 17:35:000.9[facility] HermannCHEM PANEL 2013-11-30 17:35:009.5[facility] HermannCHEM AWLYW6099-57-58 17:35:008.0[facility] HermannCHEM ZEZLM0643-55-12 17:35:004.1[facility] HermannCHEM RVGES3828-16-16 17:35:0024[facility] HermannCHEM FSUGV4330-21-41 17:35:44455Jfwevpxe HermannCHEM VUZND2411-59-67 17:35:000.9[facility] HermannCHEM MLWHB6583-03-24 17:35:18549 [facility]annCHEM ITENR8872-20-42 17:35:004.0[facility] HermannCHEM PANEL 2013-11-30 17:35:0014[facility] HermannCHEM ODFBA2632-17-01 17:35:0092[facility] HermannCHEM TMIYP6258-48-50 17:35:36604Wlocwczr HermannCHEM WENHP1724-58-65 17:35:0035Mem[facility] BayyrfbOAQCWXNLKU4543-72-24 17:35:0034.0[facility] [place] PULYUBGFRK2988-24-49 17:35:0012.7[facility] RhgzzozCTZUKXSHZG1052-73-59 17:35:00 236[facility] LyewtuoEVXQUMTBOY3042-51-33 17:35:009.6[facility] HermannHEMATOLOGY 2013-11-30 17:35:0016.9[facility] HtjavqaQJFUKURYVL2686-61-02 17:35:007.1[facility] KstpydeAUUPLFHEZA8846-60-43 17:35:005.64[facility] OuegbpxLJNLWVFFZX6023-68-03 17:35:0049.7[facility] SqnddjzYWMSJSXAVO6083-00-79 17:35:00 Test Item Value Reference Range Interpretation Comments MCH (test code = MCH) 29.9 pg 27.0-31.0 [facility] WoxxzlaMTKVLVHGGO1928-51-56 17:35:0088.0[facility] HermannHEMATOLOGY 2013-11-30 17:35:000.0[facility] BggerteUTKJGGXZLC9316-36-13 17:35:004.8[facility] TkmrbgnTXYAYSTXLN1546-98-56 17:35:000.4[facility] DmfwcrbFMRGZQEERO3736-75-03 17:35:000.5[facility] NodjinfRCWIMLWDWG7361-32-00 17:35:000.0[facility] [place] GAYFNGWRKV0673-16-36 17:35:000.7[facility] SsnhyisUCSWNVWYHD1147-42-24 17:35:001.8 [facility] DwfgsvaVSRDGAANOD2385-79-33 17:35:0067.7[facility] HermannHEMATOLOGY 2013-11-30 17:35:005.7[facility] UvykignKKZNVLQPPO6466-09-85 17:35:0025.4[facility] VdpjgiqRTJBVPMJWT8696-23-22 17:35:00Negative (11/30/13 12:35 PM)[facility] Xqychswk4606-08-70 19:05:000.6 U/mLMemorial FbaxhsjHytyrjeg6237-32-25 19:05:00 0.6 U/mLMemorial HermannOb/Sfc0824-03-26 15:51:31NormalMemorial HermannOb/Deck Mechanic 2008-03-30 15:51:31NormalMemorial HermannOb/Pet8588-20-41 15:51:31NormalMemorial HermannOb/Shy7661-25-26 15:51:31NormalMemorial ZhzgzetGhlxfpxbf3045-30-23 15:51:31NormalMemorial HqseemcFlliemupg2176-79-82 15:51:31NormalMemorial Mart
[2020-01-09 23:33] LABS: Absolute Lymphocytes (CBC) 0.9 K/uL (0.7-4.9); Basophils % 0.3 % (0-1.3); Lymphocytes % 9.6 % (15.3-44.8); RBC Red Blood Cell Count 4.75 M/uL (3.86-4.86)
[2020-01-09 23:51] LABS: Potassium 3.8 mmol/L (3.5-5.1); Thyroid Stimulating Hormone 3.66 uIU/mL (0.360-3.740)
--- NOTE | 2020-01-10 00:08 | EDPHYS ---
Physician Documentation [facility] Name: Tracey Rodriguez Age: 64 yrs Sex: Female : 1955 Arrival Date: 01/09/2020 Time: 22:12 Bed 13 Private MD: CATALINA Physician Dylon Palma HPI: 01/08 23:41 This 64 yrs old Female presents to ER via Ambulatory with complaints of kb Muscle Cramps, High Blood Pressure, Fast Heart Beat. 23:41 The patient presents with a history of heart racing. Context: The symptoms occur after kb cleaning the house. Onset: The symptoms/episode began/occurred today. Duration: The patient or guardian reports a single episode. Modifying factors: The symptoms are aggravated by nothing. The symptoms are alleviated by nothing. Associated signs and symptoms: The patient has no apparent associated signs or symptoms. Severity of symptoms: At their worst the symptoms were moderate in the emergency department the symptoms have resolved. The patient has experienced similar episodes in the past. The patient has been recently been admitted at [facility], was discharged earlier today. 23:43 Pt reports she has had a fast heart beat for about 4 weeks. States she was recently kb admitted for it and had multiple tests done to make sure it wasn't her heart. "I know it's not my heart because all the tests were normal. I got home today and felt good so I cleaned the house, then I started feeling a fast heart rate again and it scared me so I came in. I wonder if it's my thyroid. My doctor recently wrote me some thyroid medicine, but I haven't started it because I'm worried about taking it. I also have sleep apnea sometimes so maybe that is causing my fast heart beat." Nurse tried to do EKG, but pt said she didn't need that done because they already checked her heart out and it's not that.. Historical: - Allergies: 22:38 anti-inflammatory (all); fc 22:38 Ciprofloxacin; fc 22:38 fluoroquinolones; fc 22:38 Levaquin; fc 22:38 Sulfa (Sulfonamide Antibiotics); fc - Home Meds: 22:38 Bentyl 10 mg Oral cap prn [Active]; fc - PMHx: 22:38 Diverticulitis; hiatal hernia; Hypoglycemic; Hypothyroidism; ibs; throat erosion; UTI; fc - PSHx: 22:38 Tubal ligation; Cholecystectomy; Carpal Tunnel Repair; fc - Immunization history:: Last tetanus immunization: unknown, Flu vaccine is not up to date. - Social history:: Smoking status: Patient denies any tobacco usage or history of. Patient/guardian denies using alcohol, street drugs. ROS: 23:37 Constitutional: Negative for fever, chills, and weight loss, Respiratory: Negative for kb shortness of breath, cough, wheezing, and pleuritic chest pain, Abdomen/GI: Negative for abdominal pain, nausea, vomiting, diarrhea, and constipation, Back: Negative for injury and pain, MS/Extremity: Negative for injury and deformity, Skin: Negative for injury, rash, and discoloration, Neuro: Negative for headache, weakness, numbness, tingling, and seizure. 23:37 Cardiovascular: Positive for palpitations, Negative for chest pain, edema, orthopnea, paroxysmal nocturnal dyspnea. Exam: 23:41 Constitutional: This is a well developed, well nourished patient who is awake, alert, kb and in no acute distress. Head/Face: Normocephalic, atraumatic. Chest/axilla: Normal chest wall appearance and motion. Nontender with no deformity. No lesions are appreciated. Cardiovascular: Regular rate and rhythm with a normal S1 and S2. No gallops, murmurs, or rubs. Normal PMI, no JVD. No pulse deficits. Respiratory: Lungs have equal breath sounds bilaterally, clear to auscultation and percussion. No rales, rhonchi or wheezes noted. No increased work of breathing, no retractions or nasal flaring. Abdomen/GI: Soft, non-tender, with normal bowel sounds. No distension or tympany. No guarding or rebound. No evidence of tenderness throughout. Skin: Warm, dry with normal turgor. Normal color with no rashes, no lesions, and no evidence of cellulitis. MS/ Extremity: Pulses equal, no cyanosis. Neurovascular intact. Full, normal range of motion. Neuro: Awake and alert, GCS 15, oriented to person, place, time, and situation. Cranial nerves II-XII grossly intact. Motor strength 5/5 in all extremities. Sensory grossly intact. Cerebellar exam normal. Normal gait. 23:41 Constitutional: The patient appears anxious. kb 23:57 ECG was reviewed by the Attending Physician. kb Vital Signs: 22:10 BP 147 / 85; Pulse 85; Resp 20; Temp 98(O); Pulse Ox 98% on R/A; Weight 90.72 kg (R); fc Height 5 ft. 3 in. (160.02 cm) (R); Pain 7/10; 23:37 BP 130 / 77; Pulse 84; Resp 15; Pulse Ox 97% ; Pain 3/10; bb3 01/09 00:28 BP 127 / 70; Pulse 75; Resp 20; Pulse Ox 99% on R/A; fc 01/08 22:10 Body Mass Index 35.43 (90.72 kg, 160.02 cm) fc MDM: 01/08 22:45 Patient medically screened. kb 23:37 Data reviewed: vital signs, nurses notes. Data interpreted: Pulse oximetry: on room air kb is 97 %. Interpretation: normal. 23:58 Counseling: I had a detailed discussion with the patient and/or guardian regarding: the kb historical points, exam findings, and any diagnostic results supporting the discharge/admit diagnosis, lab results, the need for outpatient follow up, a rn internship, a family practitioner, to return to the emergency department if symptoms worsen or persist or if there are any questions or concerns that arise at home. 01/08 23:00 Order name: Basic Metabolic Panel; Complete Time: 23:56 kb 01/08 23:00 Order name: CBC with Diff kb 01/08 23:00 Order name: TSH; Complete Time: 23:56 kb 01/08 23:39 Order name: Manual Differential EDMS 01/08 23:48 Order name: EKG; Complete Time: 23:49 kb 01/08 23:48 Order name: EKG - Nurse/Tech; Complete Time: 23:51 kb EC:57 Rate is 72 beats/min. Rhythm is regular. QRS Faulkner is Normal. NM interval is normal at kb 124 msec. QRS interval is normal at 72 msec. QT interval is normal at 368 msec. Administered Medications: No medications were administered Disposition: 01/09 05:38 Co-signature as Attending Physician, Dylon Palma MD. [email or web address] Disposition: 01/10/20 00:07 Discharged to Home. Impression: Palpitations. - Condition is Stable. - Discharge Instructions: Palpitations, [id number]. - Medication Reconciliation Form, Thank You Letter, Antibiotic Education, Prescription Opioid Use form. - Follow up: Emergency Department; When: As needed; Reason: Worsening of condition. Follow up: Private Physician; When: 2 - 3 days; Reason: Recheck today's complaints, Continuance of care, Re-evaluation by your physician. Signatures: Dispatcher [employer] EDMS Brigitte Wilkinson FNP-C FNP-Ckb Chretien, Felicia, RN RN Dylon Salas MD MD [email or web address] Corrections: (The following items were deleted from the chart) 01/08 23:00 23:00 IV Saline Lock ordered. kb kb 23:41 23:41 Constitutional: This is a well developed, well nourished patient who is awake, kb alert, and in no acute distress. Head/Face: Normocephalic, atraumatic. Chest/axilla: Normal chest wall appearance and motion. Nontender with no deformity. No lesions are appreciated. Cardiovascular: Regular rate and rhythm with a normal S1 and S2. No gallops, murmurs, or rubs. Normal PMI, no JVD. No pulse deficits. Respiratory: Lungs have equal breath sounds bilaterally, clear to auscultation and percussion. No rales, rhonchi or wheezes noted. No increased work of breathing, no retractions or nasal flaring. Abdomen/GI: Soft, non-tender, with normal bowel sounds. No distension or tympany. No guarding or rebound. No evidence of tenderness throughout. Skin: Warm, dry with normal turgor. Normal color with no rashes, no lesions, and no evidence of cellulitis. MS/ Extremity: Pulses equal, no cyanosis. Neurovascular intact. Full, normal range of motion. Neuro: Awake and alert, GCS 15, oriented to person, place, time, and situation. Cranial nerves II-XII grossly intact. Motor strength 5/5 in all extremities. Sensory grossly intact. Cerebellar exam normal. Normal gait. kb 01/09 00:29 00:07 01/10/2020 00:07 Discharged to Home. Impression: Palpitations. Condition is fc Stable. Discharge Instructions: Palpitations, [id number]. Forms are Medication Reconciliation Form, Thank You Letter, Antibiotic Education, Prescription Opioid Use. Follow up: Emergency Department; When: As needed; Reason: Worsening of condition. Follow up: Private Physician; When: 2 - 3 days; Reason: Recheck today's complaints, Continuance of care, Re-evaluation by your physician. kb
--- NOTE | 2020-01-10 00:08 | ER ---
Nurse's Notes [facility] Name: Tracey Rodriguez Age: 64 yrs Sex: Female : 1955 Arrival Date: 01/09/2020 Time: 22:12 Bed 13 Private MD: Diagnosis: Palpitations Presentation: 01/08 22:10 Chief complaint: Patient states: that she was admitted 2 days ago and discharged today fc at 1200 after having an echo and stress test that were normal. States she was d/c home with ZPack, Steroids and allergy medications. [place] fine, cleaned housed and then at 1800 she started to have HTN, muscle pain and racing heart along with nausea and weakness. Coronavirus screen: was positive 5 weeks ago but tested negative yesterday. Ebola Screen: Patient negative for fever greater than or equal to 101.5 degrees Fahrenheit, and additional compatible Ebola Virus Disease symptoms Patient denies exposure to infectious person. Patient denies travel to an Ebola-affected area in the 21 days before illness onset. Initial Sepsis Screen: Does the patient meet any 2 criteria? No. Patient's initial sepsis screen is negative. Does the patient have a suspected source of infection? No. Patient's initial sepsis screen is negative. Risk Assessment: Do you want to hurt yourself or someone else? Patient reports no desire to harm self or others. Onset of symptoms was January 09, 2020 at 18:00. 22:10 Method Of Arrival: Ambulatory 22:10 Acuity: ANUJA 3 fc Historical: - Allergies: 22:38 anti-inflammatory (all); 22:38 Ciprofloxacin; 22:38 fluoroquinolones; 22:38 Levaquin; 22:38 Sulfa (Sulfonamide Antibiotics); fc - Home Meds: 22:38 Bentyl 10 mg Oral cap prn [Active]; fc - PMHx: 22:38 Diverticulitis; hiatal hernia; Hypoglycemic; Hypothyroidism; ibs; throat erosion; UTI; fc - PSHx: 22:38 Tubal ligation; Cholecystectomy; Carpal Tunnel Repair; fc - Immunization history:: Last tetanus immunization: unknown, Flu vaccine is not up to date. - Social history:: Smoking status: Patient denies any tobacco usage or history of. Patient/guardian denies using alcohol, street drugs. Screenin:10 Abuse screen: Denies threats or abuse. Nutritional screening: No deficits noted. fc Tuberculosis screening: No symptoms or risk factors identified. Fall Risk None identified. Assessment: 23:35 Reassessment: Patient appears in no apparent distress at this time. Patient and/or bb3 family updated on plan of care and expected duration. Pain level reassessed. Patient is alert, oriented x 3, equal unlabored respirations, skin warm/dry/pink. Patient states feeling better. General: Appears in no apparent distress. comfortable, Behavior is calm, cooperative, appropriate for age. Pain: Complains of pain in pt reports muscle pain all over Pain currently is 3 out of 10 on a pain scale. Quality of pain is described as aching. Vital Signs: 22:10 BP 147 / 85; Pulse 85; Resp 20; Temp 98(O); Pulse Ox 98% on R/A; Weight 90.72 kg (R); fc Height 5 ft. 3 in. (160.02 cm) (R); Pain 7/10; 23:37 BP 130 / 77; Pulse 84; Resp 15; Pulse Ox 97% ; Pain 3/10; bb3 01/09 00:28 BP 127 / 70; Pulse 75; Resp 20; Pulse Ox 99% on R/A; fc 01/08 22:10 Body Mass Index 35.43 (90.72 kg, 160.02 cm) fc ED Course: 01/08 22:10 Arm band placed on Patient placed in an exam room, on a stretcher. fc 22:10 Patient has correct armband on for positive identification. Placed in gown. Bed in low fc position. Call light in reach. Side rails up X 1. radiation monitor on. Pulse ox on. NIBP on. 22:10 No provider procedures requiring assistance completed. fc 22:12 Patient arrived in ED. bp1 22:35 Triage completed. fc 22:45 Brigitte Wilkinson [facility]-C is [facility] kb 22:45 Dylon Palma MD is Attending Physician. kb 23:18 Basic Metabolic Panel Sent. dh4 23:18 CBC with Diff Sent. dh4 23:18 TSH Sent. dh4 23:50 Manual Differential Sent. bb3 01/09 00:29 Patient did not have IV access during this emergency room visit. fc Administered Medications: No medications were administered Outcome: 00:07 Discharge ordered by . kb 00:28 Discharged to home ambulatory. 00:28 Condition: good 00:28 Discharge instructions given to patient, family, Instructed on discharge instructions, follow up and referral plans. Demonstrated understanding of instructions, follow-up care, Prescriptions given X none 00:29 Patient left the ED. Signatures: Briigtte Wilkinson, LIANNE-C BASKET PERSON-Kaitlin Meyer RN RN Gloria Araujo bb3 Dov French 4 Siri Whitfeild bp1
[2020-01-10 00:20] LABS: Blood Morphology Comment NOT SEEN (NOT SEEN); Platelet Estimate ADEQ
[2020-01-10 01:28] VITALS: TEMP 98
[2020-01-10 01:32] VITALS: BP 127/70; O2SAT 99
--- NOTE | 2020-01-11 07:15 | EKG ---
Test Date: 2020-01-09 Test Time: 23:56:39 Assistant Professor Of Philosophy: SIDRA MEASUREMENT RESULTS: Intervals: Rate: 72 CA: 124 QRSD: 72 QT: 368 QTc: 402 Sharon: P: 34 CA: 124 QRS: -26 T: -24 INTERPRETIVE STATEMENTS: Normal sinus rhythm Nonspecific ST and T wave abnormality Abnormal ECG Compared to ECG 01/08/2020 14:01:37 Sinus bradycardia no longer present Atrial premature complex(es) no longer present ST (T wave) deviation still present Electronically Signed On 01-11-20 07:13:39 CDT by Akin Rahman
== END 2020-01-10 00:29 | disposition home or self-care (01) ==
LOC: ER 22:08
DX: R00.2 Palpitations (principal); Z88.1 Allergy status to other antibiotic agents; Z88.2 Allergy status to sulfonamides; Z88.8 Allergy status to other drugs, medicaments and biological substances
CPT/HCPCS: 36415; 80048; 84443; 85025; 93005; 99284

== ENCOUNTER 2020-07-25 09:54 | Emergency (ER) | payer OTHER ==
--- OUTSIDE RECORDS SUMMARY | 2020-07-25 09:59 | XMS REPORT | Continuity of Care Document ---
:1955 Author Organization [facility] t Address [address] [place] [address] Care Team Providers Name Role Phone Silvio Babin MD Primary Care Physician Silvio HERNANDEZ Attending Clinician Ron Lundy Attending Clinician Palomo Estrada Attending Clinician Silvio Echevarria Attending Clinician Bishop Attending Clinician Nelson Delgado Attending Clinician Paulina Shaffer Attending Clinician Rachel Jesus Attending Clinician Eveline Attending Clinician Payers Payer Name Policy Type Policy Effective Date Expiration Date Sour ce Number AETNAAETNA [id number] 2020 [place] HMO,POS,EPO, 00:00:00 Audrey ALEJANDRO/[id number] /03/2020-[facility] [place] Problems Condition Condition Condition Status Onset Resolution Last Treating Co mments Source Name Details Category Date Date Treatment Clinician Date NUMBNESS/ Diagnosis Active 2020-07-23 Memoria LETHARGIC 07-23 18:37:00 l 08:00: Mart NUMBNESS/ 00 LETHARGIC Active 07/23/2020 [facility] Diagnosis Active 2019-032020-03-09 Mem oria VISIT- ABD 2-10 11:18:00 l PAIN CLINIC 00:00: [place] VISIT- ABD 00 PAIN Active 03/08/2020 [facility] ABD PAIN Diagnosis Active 2019-032020-01-11 M emoria 0-14 18:59:00 l ABD PAIN 00:00: José Miguel n 00 Active 01/11/2020 [place] F/U AND Diagnosis Active 2018-07-28 Me moria 2ND 07-20 14:19:00 l OPINION F/U AND 00:00: José Miguel n 2ND 00 OPINION Active 07/20/2018 [facility] KNEE PAIN Diagnosis Active 2017-06-06 Memoria 06-05 08:32:00 l KNEE 00:00: [place] PAIN 00 Active 06/05/2017 [facility] [place] BDDC-NAUSE Diagnosis Active 2016-12-07 Memoria A, EARLY 10-30 15:15:00 l SATIETY 00:00: [place] BDDC-NAUSE 00 A, EARLY SATIETY Active 10/30/2016 [facility] STOMACH Diagnosis Active 2015-032016-03-17 Me moria PAIN 04-27 13:47:00 l STOMACH 00:00: [place] PAIN 00 Active 02/26/2016 [facility] WEAKNES Diagnosis Active 2015-09-16 Me rivera AND CLOTILDE 09-15 17:12:00 l VISION WEAKNES 00:00: Jerilyn 00 VISION Active 09/16/2015 [place] BDDC - NEW Diagnosis Active 2014-032015-03-14 Memoria PT CONSULT - 14:16:00 l BDDC - 00:00: [place] NEW PT 00 CONSULT Active 03/14/2015 [facility] BDDC/ Diagnosis Active 2014-032015-04-30 Mem oria Z12.11 2-16 11:17:00 l SCREENING BDDC/ 00:00: José Miguel samaniego FOR Z12.11 00 MALIGNANT SCREENING ALICIA FOR MALIGNANT ALICIA Active 03/14/2015 [facility] PAIN IN Diagnosis Active 2014-032015-04-21 Me moria THE 05-06 15:39:00 l ABDOMEN; PAIN IN 00:00: Jada nn UPPER AND THE 00 LOWER STO ABDOMEN; UPPER AND LOWER STO Active 03/05/2015 [facility] Screening Problem Active 2020-03-11 Me moria mammograph 08-23 23:39:33 l y 00:00: Mart (procedure Screening 00 ) mammograph y (procedure ) Active 08/23/2014 Problem 03/11/2020 Data migrated from [employer] on 10/04/14. [facility] [place],[facility] OPID [place], JESSICA Cody,M H [place] Vitamin D Problem Active 2020-03-11 Me moria deficiency 08-23 23:39:33 l (disorder) Vitamin 00:00: Her sellers D 00 deficiency (disorder) Active 08/23/2014 Problem 03/11/2020 Data migrated from [employer] on 10/04/14. [facility] [place],M H OPID [place], JESSICA Cody,M H [place] VITAMIN D Condition Active 2014-08-23 Memoria DEFICIENCY 08-23 16:24:00 l VITAMIN 00:00: Mart D 00 DEFICIENCY Active 08/23/2014 Condition 5 [facility] DIARRHEA Condition Active 2014-08-23 M emoria 08-23 16:24:00 l DIARRHEA 00:00: José Miguel n 00 Active 08/23/2014 Condition 5 [facility] MAMMOGRAM Condition Active 2014-08-23 Memoria YEARLY 08-23 16:24:00 l SCREENING 00:00: Mart MAMMOGRAM 00 YEARLY SCREENING Active 08/23/2014 Condition 5 [facility] Gastritis Problem Active 2020-03-11 Me moria (disorder) 08-22 23:39:33 l 00:00: Mart Gastritis 00 (disorder) Active 08/22/2014 Problem 03/11/2020 Data migrated from [employer] on 10/04/14. [facility] [place], JESSICA Cody,M H [place] Multiple Problem Active 2020-03-11 Mem oria joint pain 08-22 23:39:33 l (finding) Multiple 00:00: Her sellers joint pain 00 (finding) Active 08/22/2014 Problem 03/11/2020 Data migrated from [employer] on 10/04/14. [facility] [place],M [facility] OPID [place], JESSICA Cody,M H [place] Muscle Problem Active 2020-03-11 Memor ia pain 08-22 23:39:33 l (finding) Muscle 00:00: Jada nn pain 00 (finding) Active 08/22/2014 Problem 03/11/2020 Data migrated from [employer] on 10/04/14. [facility] [place],M [facility] OPID [place], JESSCIA Cody,M H [place] Nausea Problem Active 2020-03-11 Memor ia (finding) 08-22 23:39:33 l Nausea 00:00: Mart (finding) 00 Active 08/22/2014 Problem 03/11/2020 Data migrated from [employer] on 10/04/14. [facility],M [facility] OPID [place], JESSICA Cody,M H [place] MYALGIA Condition Active 2014-08-23 Me moria 08-22 16:24:00 l MYALGIA 00:00: Mart 00 Active 08/22/2014 Condition 5 [facility] PAIN IN Condition Active 2014-08-23 Me moria JOINT, 08-22 16:24:00 l MULTIPLE PAIN IN 00:00: Jada nn SITES JOINT, 00 MULTIPLE SITES Active 08/22/2014 Condition [facility] GASTRITIS Condition Active 2014-08-23 Memoria 08-22 16:24:00 l 00:00: [place] GASTRITIS 00 Active 08/22/2014 Condition [facility] Enterobias Problem Active 2020-03-11 M emoria is 08-08 23:39:33 l (disorder) 00:00: José Miguel n Enterobias 00 is (disorder) Active 08/08/2014 Problem 03/11/2020 Data migrated from [employer] on 10/04/14. [facility],M [facility] OPID [place], SUGARFernando Cody,M H [place] Numbness Problem Active 2020-03-11 Mem oria (finding) 08-08 23:39:33 l Numbness 00:00: José Miguel n (finding) 00 Active 08/08/2014 Problem 03/11/2020 Data migrated from [employer] on 10/04/14. [facility] [place],M H OPID [place], JESSICA Cody,M H [place] Reactive Problem Active 2020-03-11 Mem oria hypoglycem 08-08 23:39:33 l ia Reactive 00:00: José Miguel n (disorder) hypoglycem 00 ia (disorder) Active 08/08/2014 Problem 03/11/2020 Data migrated from [employer] on 10/04/14. [facility] [place],M [facility] OPID [place], JESSICA Cody,M H [place] HYPOGLYCEM Condition Active 2014-08-23 Memoria IA, 08-08 16:24:00 l REACTIVE 00:00: Mart HYPOGLYCEM 00 IA, REACTIVE Active 08/08/2014 Condition 5 [facility] ROUTINE Condition Active 2014-08-23 [place] GENERAL 08-08 16:24:00 l MEDICAL ROUTINE [...] LUMBAR, 04-15 16:24:00 l WITH BACK 00:00: [place] RADICULOPA PAIN, 00 THY LUMBAR, WITH RADICULOPA THY Active 02/13/2014 Condition [facility] CERVICAL Condition Active 2013-032014-08-23 M emoria RADICULOPA 04-15 16:24:00 l THY CERVICAL 00:00: José Miguel n RADICULOPA 00 THY Active 02/13/2014 Condition [facility] HIP PAIN, Condition Active 2013-032014-08-23 Memoria BILATERAL 1-17 16:24:00 l HIP 00:00: [place] PAIN, 00 BILATERAL Active 02/13/2014 Condition 5 [facility] NAUSEA Diagnosis Active 2013-11-30 Mem oria 9- 13:51:00 l NAUSEA 00:00: Mart 00 Active 11/30/2013 [place] ABDOMINAL Condition Active 2013-11-07 Memoria PAIN, LEFT 8- 14:05:00 l UPPER 00:00: [place] QUADRANT ABDOMINAL 00 PAIN, LEFT UPPER QUADRANT Active 11/07/2013 Condition 4 [facility] ACID Condition Active 2014-08-23 Mem oria REFLUX 7- 16:24:00 l DISEASE ACID 00:00: [place] REFLUX 00 DISEASE Active 10/05/2013 Condition [facility] MUSCLE Condition Active 2013-10-05 Mem oria STRAIN 7- 14:17:34 l MUSCLE 00:00: Mart STRAIN 00 Active 10/05/2013 Condition 4 [facility] ROTATOR Condition Active 2014-08-23 [place] CUFF 7- 16:24:00 l (CAPSULE) ROTATOR 00:00: Herm rut SPRAIN CUFF 00 (CAPSULE) SPRAIN Active 10/05/2013 Condition 5 [facility] OBESITY Condition Active 2014-08-23 [place] mor[place] 6-05 16:24:00 l OBESITY 00:00: Mart 00 Active 09/01/2013 Condition [facility] LONG-TERM Condition Active 2014-08-23 Memoria (CURRENT) 2-17 16:24:00 l USE OF 00:00: [place] OTHER LONG-TERM 00 MEDICATION (CURRENT) S USE OF OTHER MEDICATION S Active 05/16/2013 Condition [facility] FATIGUE Condition Active 2014-08-23 Me moria 2-01 16:24:00 l FATIGUE 00:00: [place] 00 Active 04/30/2012 Condition 5 [facility] FLAT FOOT Condition Active 2014-08-23 Memoria 2- 16:24:00 l FLAT 00:00: [place] FOOT 00 Active 04/30/2012 Condition [facility] HAIR LOSS Condition Active 2014-08-23 Memoria 2- 16:24:00 l HAIR 00:00: [place] LOSS 00 Active 04/30/2012 Condition [facility] BACK PAIN Condition Active 2014-08-23 Memoria 9- 16:24:00 l BACK 00:00: [place] PAIN 00 Active 12/08/2011 Condition [facility] DEFICIENCY Condition Active 2014-08-23 Memoria , VITAMIN 9- 16:24:00 l D NOS 00:00: [place] DEFICIENCY 00 , VITAMIN D NOS Active 12/08/2011 Condition [facility] HYPOTHYROI Condition Active 2014-08-23 Memoria DISM - 16:24:00 l 00:00: [place] HYPOTHYROI 00 DISM Active 12/08/2011 Condition [facility] HEADACHE Condition Inactiv 2014-08-23 Memoria e 16:24:00 l HEADACHE José Miguel n Inactive Condition 08/23/2014 [facility] Hypoglycem Problem Resolve 2020-03-11 Memoria ia d 23:39:33 l (disorder) José Miguel n Hypoglycem ia (disorder) Resolved Problem 03/11/2020 [facility],M OP[facility] [place], JESSICA Cody,M [place] Disease Problem Resolve 2020-03-11 Mem oria caused by d 23:39:33 l 2019-nCoV Disease Herm rut caused by 2019-nCoV Resolved Problem 03/11/2020 [facility] 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 23:39:33 l (disorder) José Miguel n Autoimmune disease (disorder) Active Problem 03/11/2020 [facility], [place] Obesity Problem Active 2020-03-11 Marvel fauzia (disorder) 23:39:33 l Obesity Mart (disorder) Active Problem 03/11/2020 [facility] [place],M OPID [place], JESSICA CodyM H [place] ASTHMA Condition Active 2014-08-23 Mem oria 16:24:00 l ASTHMA Mart Active Condition 08/23/2014 [facility] HYPERCHOLE Condition Active 2014-08-23 Memoria STEROLEMIA 16:24:00 l [place] HYPERCHOLE STEROLEMIA Active Condition 08/23/2014 [facility] FAMILY Condition Active 2014-08-23 Mem oria HISTORY OF 16:24:00 l ASTHMA FAMILY Mart HISTORY OF ASTHMA Active Condition 08/23/2014 [facility] FH LUNG Condition Active 2014-08-23 Me moria CANCER 16:24:00 l FH LUNG [place] CANCER Active Condition 08/23/2014 [facility] FH Condition Active 2014-08-23 Mem oria DEPRESSION 16:24:00 l FH [place] DEPRESSION Active Condition 08/23/2014 [facility] FH Condition Active 2014-08-23 Mem oria DIABETES - 16:24:00 l DM FH Mart DIABETES - DM Active Condition 08/23/2014 [facility] FH HEART Condition Active 2014-08-23 M emoria DISEASE 16:24:00 l FH HEART José Miguel n DISEASE Active Condition 08/23/2014 [facility] Diarrhea Problem Resolve 2020-03-11 2020-03-11 Memoria (finding) d -27 23:39:33 23:39:33 l Diarrhea 00:00: José Miguel n (finding) 00 Resolved 08/23/2014 Problem 03/11/2020 Data migrated from [employer] on 10/04/14. [facility] J[facility]ICA [place], JESSICA Cody,M H [place] Sinusitis Problem Resolve 2020-03-11 2020-03-11 Memoria (disorder) d 9-10 23:39:33 23:39:33 l 00:00: [place] Sinusitis 00 (disorder) Resolved 12/08/2011 Problem 03/11/2020 Data migrated from [employer] on 10/14/14.Da ta migrated from [employer] on 10/13/14. [facility]ICA [place], JESSICA Cody,M H [place] History of Past Illness Condition Condition Condition Status Onset Resolution Last Treating Co mments Source Name Details Category Date Date Treatment Clinician Date Urinary Problem 2019-032020-01-13 2020-01-13 Memoria tract 0-14 22:40:53 22:40:53 l infection, Urinary 17:00: Her sellers site not tract 00 specified infection, site not specified 01/11/2020 01/13/2020 [place] Acute Problem 2019-032020-01-13 2020-01-13 M emoria gastritis 0-14 22:40:53 22:40:53 l without Acute 17:00: Mart bleeding gastritis 00 without bleeding 0 01/13/2020 [place] Unspecifie Problem 2019-032020-01-13 2020-01-13 Memoria d 0-14 22:40:53 22:40:53 l abdominal 17:00: [place] pain Unspecifie 00 d abdominal pain 01/11/2020 01/13/2020 [place] Acute Problem 2019-032020-01-13 2020-01-13 M emoria bronchitis 0-14 22:40:53 22:40:53 l , Acute 17:00: [place] unspecifie bronchitis 00 d , unspecifie d 01/11/2020 01/13/2020 [place] Acute Problem 2017-032018-07-25 2018-07-25 M emoria sinusitis, 0-16 14:53:54 14:53:54 l unspecifie Acute 04:40: Jada nn d sinusitis, 38 unspecifie d 01/12/2018 07/25/2018 OPID [place] Discharge Problem 2015-09-19 2015-09-19 Memoria Diagnosis: 6- 00:37:41 00:37:41 l Adult 05:00: Mart hypothyroi Discharge 00 dism Diagnosis: Adult hypothyroi dism 09/16/2015 09/19/2015 [place] BREAST Condition Inactiv 2013-032014-08-23 2014-08-23 Memoria PAIN, e 1-17 16:24:00 16:24:00 l BILATERAL BREAST 00:00: Jada nn PAIN, 00 BILATERAL Inactive 02/13/2014 Condition [facility] ABDOMINAL Condition Inactiv 2014-08-23 2014-08-23 Memoria PAIN, e 8- 16:24:00 16:24:00 l RIGHT 00:00: [place] UPPER ABDOMINAL 00 QUADRANT PAIN, RIGHT UPPER QUADRANT Inactive 11/07/2013 Condition [facility] NAUSEA Condition Inactiv 2014-08-23 2014-08-23 Memoria e 7-09 16:24:00 16:24:00 l NAUSEA 00:00: [place] 00 Inactive 10/05/2013 Condition [facility] SACROILIIT Condition Inactiv 2014-08-23 2014-08-23 Memoria IS e 6-05 16:24:00 16:24:00 l 00:00: [place] SACROILIIT 00 IS Inactive 09/01/2013 Condition [facility] DRY SOCKET Condition Inactiv 2014-08-23 2014-08-23 Memoria e 12-07 16:24:00 16:24:00 l DRY 00:00: [place] SOCKET 00 Inactive 12/07/2012 Condition [facility] HEARTBURN Condition Inactiv 2014-08-23 2014-08-23 Memoria e 12-03 16:24:00 16:24:00 l 00:00: [place] HEARTBURN 00 Inactive 12/03/2012 Condition 5 [facility] INGROWN Condition Inactiv 2014-08-23 2014-08-23 Memoria NAIL e 2-01 16:24:00 16:24:00 l INGROWN 00:00: [place] NAIL 00 Inactive 04/30/2012 Condition [facility] HYPERGLYCE Condition Inactiv 2014-08-23 2014-08-23 Memoria FENG e 9-10 16:24:00 16:24:00 l 00:00: [place] HYPERGLYCE 00 FENG Inactive 12/08/2011 Condition [facility] Discharge Problem 2013-12-03 2013-12-03 Memoria Diagnosis: - 05:11:13 05:11:13 l Biliary 05:00: Mart colic Discharge 00 Diagnosis: Biliary colic 11/30/2013 12/03/2013 [place] Allergies, Adverse Reactions, Alerts Allergy Allergy Status Severity Reaction(s) Onset Inactive Treating Comm ents Source Name Type Date Date Clinician ciproflo DA Active SV 2017-03 [facility] xacin 0-01 [place] 00:00: d 00 [facility] levoflox DA Active SV 2017-03 [facility] acin 0-01 [place] [facility] ANTI DA Active U 2017-03 [facility] INFLAMMA 0-01 [place] TORY PO 00:00: d MEDS 00 [facility] Ciproflo Propensi Active [place] xacin ty to 06-05 [facility] adverse 00:00: st reaction 00 s to drug Sulfa Propensi Active [place] (Sulfona ty to 06-05 [facility] mide adverse 00:00: st Antibiot reaction 00 ics) s to drug Ciprofib Propensi Active [place] rate ty to 1-10 [facility] adverse 00:00: st reaction 00 s to drug Levoflox Propensi Active [place] acin ty to - [facility] adverse 00:00: st reaction 00 s to drug Nsaids Propensi Active [place] (Non-Dragan ty to - [facility] roidal adverse 00:00: st Anti-Inf reaction 00 lammator s to y Drug) drug ANTI-INF ANTI-INF Active Memori a LAMMATOR LAMMATOR 9-10 l IES IES 00:00: [place] 00 LEVAQUIN LEVAQUIN Active Memori a 9-10 l 00:00: [place] 00 BACTRIM BACTRIM Active Memoria 9-10 l 00:00: Mart 00 ciproflo ciproflo Active Memori a xacin xacin l [place] Levaquin Levaquin Active Memori a l [place] Food Food Active Memoria Iodine Iodine l [place] NSAIDs NSAIDs Active Memoria l [place] Family History Family Member Diagnosis Comments Start Date Stop Date Source Natural mother Cancer [facility] thodist Natural father Heart disease [place] [facility] Social History Social Habit Start Date Stop Date Quantity Comments Source Exposure to Not sure [place] [facility] dist SARS-CoV-2 (event) Tobacco use and 2020-07-24 2020-07-24 Never used [facility] ethodist exposure 00:00:00 00:00:00 Alcohol intake 2020-07-24 2020-07-24 Current [facility] thodist 00:00:00 00:00:00 non-drinker of alcohol (finding) Social History 2017-07-02 2017-07-02 [facility] amy 19:52:36 19:52:36 [birth year] [employer] [facility] 00:00:00 00:00:00 Smoking Status Start Date Stop Date Source Social History [facility] Medications Ordered Filled Start Stop Current Ordering Indication Dosage Frequency Signature Comments Components Source Medication Medication Date Date Medication? Clinician (SIG) Name Name fluticasone Yes 50ug QD 1 spray [place] propionate 4-27 (50 mcg Method i (FLONASE) 00:00: total) by st 50 00 Each Nare mcg/actuati route on nasal daily. spray azithromyci 2020- Yes Take 2 [place]on n 4-27 05-02 tablets [facility] (ZITHROMAX) 00:00: 23:59 ([address] 250 MG 00 :00 total) by tablet mouth daily for 1 day, THEN 1 tablet (250 mg total) daily for 4 days. Ondansetron 2019-03 Yes 4 mg = 1 Me moria 4 MG 2-11 tab, PO, l Disintegrat 18:11: Q6H, PRN He rmann ing Tablet 00 Nausea & Vomiting, # 60 tab, 0 Refill(s), Pharmacy: [id number], 160.02, cm, 03/09/20 11:28:00 [employer]ING [employer] GAS, Height, 86.364, kg, 03/09/20 11:28:00 [employer]ING [employer] G[employer], Weight Famotidine 2019-03 Yes 40 mg = 1 Me moria 40 MG Oral 0-15 tab, PO, l Tablet 02:09: Daily, Margie Cevallos [Pepcid] 00 30 tab, 0 Refill(s) pantoprazol 2019-03 Yes 40 mg = 1 M emoria e 40 MG 0-15 tab, PO, l Enteric 02:09: Daily, # José Miguel n Coated 00 30 tab, 0 Tablet Refill(s) [Protonix] Sucralfate 2019-03 Yes 1 gm = 10 Me moria 100 MG/ML 0-15 ml, PO, l Oral 02:09: Before Mart Suspension 00 Meals & Bedtime, # 200 ml, 1 Refill(s) Ondansetron 2019-03 Yes 4 mg = 1 Me moria 4 MG 0-15 tab, PO, l Disintegrat 02:08: BID, PRN He rmann ing Tablet 00 Nausea and [Zofran] Vomiting, Dissolve tab under tongue, # 20 tab, 0 Refill(s) Phenergan 2019-03 Yes 25 mg = 1 Mem oria 25 mg oral 0-15 tab, PO, l tablet 02:08: Q6H, PRN [place] 00 Nausea, # 15 tab, 0 Refill(s) Vantin 200 2019-03 Yes 200 mg = 1 M emoria mg oral 0-15 tab, PO, l tablet 02:08: Q12H, X 10 Jada nn 00 day, # 20 tab, 0 Refill(s) albuterol 2019-03 Yes 2 puff, Memor ia 90 mcg/inh 0-15 INHALATION l inhalation 02:06: , QID, # Her sellers aerosol 00 17 gm, 0 Refill(s) Omnipaque 2019-03 No Notes: Memori a 300 0-15 (Same l injectable 01:00: as:Omnipaq H ermann solution 00 ue 300). WASTE: F/P - Black; E - Municipal Trash Bin Al 2019-03 No Notes: Memoria hydroxide/M 0-14 (aluminum l g 23:35: hydroxide- [place] hydroxide/s 00 magnesium imethicone hyd-simeth icone 200-200-20 mg/5ml 30 ml ud GINETTE) Xylocaine 2019-03 No Notes: Memori a Viscous 2% 0-14 (Same as: l mucous 23:35: Xylocaine) Jada nn membrane 00 solution Saline 2019-03 No Notes: Memoria Flush 0.9% 0-14 (Same as: l 23:28: BD Mart 00 Posiflush) Sodium 2019-03 No 1,000 mL, Memori a Chloride 0-14 1000 l 0.9% 23:28: ml/hr, [place] (Bolus) IV 00 Infuse Over: 1 hr, Route: IV, 1,000, Drug form: INJ, ONCE, Priority: STAT, Dosing Weight 89 kg, Start date: 01/11/20 18:28:00 CDT, Stop date: 01/11/20 18:28:00 CDT, 0 Morphine 2019-03 No Notes: Memoria 0-14 (Same l 23:28: as:MORPhin [place] 00 e Sulfate) Ondansetron 2019-03 No Notes: Marvel fauzia 0-14 (Same as: l 23:28: Zofran) Mart 00 MEDICATION WASTE Product Size: 4 mg Product Wasted: ___ mg Famotidine 2019-03 No Notes: Memor ia 0-14 (Same as: l 23:28: Pepcid) Mart 00 Can be dilute in 5-10cc NS IVP: Slow IV push over at least 2 minutes. GI cocktail 2019-03 No 30 mL, Marvel fauzia (aluminum 0-14 Route: PO, l hydroxide/m 23:28: Dosing Herm rut agnesium 00 Weight 89, hydroxide/l kg, ONCE, idocaine/si STAT, methicone) Start date: 01/11/20 18:28:00 CDT, Stop date: 01/11/20 18:28:00 CDT nitrofurant 2018-03 Yes 100 mg = 1 Memoria oin 0-04 cap, PO, l macrocrysta 16:18: BID, X 7 He rmann ls-monohydr 00 day, # 14 ate 100 mg cap, 0 oral Refill(s), capsule Pharmacy: (Macrobid) [id number] tamsulosin Yes .4mg QD Take 1 [place] (FLOMAX) 8-22 capsule [facility]i 0.4 mg 00:00: (0.[address] capsule 00 total) by mouth daily. fluconazole Yes See Memori a 150 mg oral 6-07 Instructio l tablet 14:07: ns, 1 tab José Miguel n 00 PO ONCE a week, # 2 tab, 0 Refill(s), [facility] [id number] ciclopirox Yes 1 appl, Marvel fauzia 7.7 MG/ML 6-07 TOP, BID, l Topical 14:07: X 28 day, Jada nn Cream 00 # 90 gm, 0 Refill(s), Pharmacy: [facility] [id number] rifaximin Yes 550 mg = 1 Me moria 550 MG Oral 5-01 tab, PO, l Tablet 21:43: TID, # 42 José Miguel n [XIFAXAN] 00 tab, 0 Refill(s), Pharmacy: [facility] pantoprazol Yes 40 mg, PO, Memoria e 5-01 Daily, # l 18:57: 30 tab, 0 Mart 00 Refill(s) Hyoscyamine Yes 0.125 mg = Memoria Sulfate 3-20 1 tab, PO, l 0.125 MG 21:36: QID, PRN Jada nn Disintegrat 00 Spasm, # ing Tablet 40 tab, 1 [Nulev] Refill(s), Pharmacy: [facility] Sulfamethox Yes 1 tab, PO, Memoria azole 800 3-20 BID, X 7 l MG / 21:36: day, # 14 [place] Trimethopri 00 tab, 0 m 160 MG Refill(s), Oral Tablet Pharmacy: [Bactrim] [facility] clonazePAM Yes 0.5 mg = 1 M emoria 0.5 mg oral 3-20 tab, PO, l tablet 21:36: Daily, PRN Jada nn 00 Anxiety, # 30 tab, 1 Refill(s) Metronidazo Yes 500 mg = 1 Memoria le 500 MG 3-18 tab, PO, l Oral Tablet 19:12: Q8H, X 10 H ermann [Flagyl] 00 day, # 30 tab, 0 Refill(s), Pharmacy: [facility] [place] [id number] Amoxicillin Yes 875 mg = 1 Memoria 875 MG / 3-18 tab, PO, l Clavulanate 19:12: Q12H, X 10 Mart 125 MG Oral 00 day, # 20 Tablet tab, 0 [Augmentin Refill(s), 875-mg] Pharmacy: [facility] [place] [address] Nystatin 2017-03 No 1,000,000 Marvel fauzia [id number] UNT 0-15 unit = 2 l Oral Tablet 13:43: tab, PO, He rmann 00 BID, X 30 day, # 120 tab, 0 Refill(s), Pharmacy: [facility] [place] [address] sucralfate 2017-03 Yes 1 gm = 1 Mem oria 1 g oral 0-11 tab, PO, l tablet 19:23: QID, # 120 Jada nn 00 tab, 0 Refill(s), Pharmacy: [facility] [place] [address] benzonatate 2017-03 No 100 mg = 1 Memoria 100 MG Oral 0-09 cap, PO, l Capsule 20:31: TID, PRN José Miguel n [Tessalon 00 as needed Perles] for cough, X 7 day, # 21 cap, 0 Refill(s), Pharmacy: [place] [id number] Azithromyci 2017-03 No See Memori a n 5 Day 0-09 Instructio l Dose Pack 20:26: ns, Take 2 He rmann 250 mg oral 00 tablets by tablet mouth the first day then 1 tablet by mouth days 2-5., X 5 day, # 6 tab, 0 Refill(s), Pharmacy: [place] [address] doxycycline 2017-03 Yes 100 mg = 1 Memoria hyclate 100 0-09 tab, PO, l MG Oral 20:13: BID, 0 [place] Tablet 00 Refill(s) clonazePAM 2017-03 No 0.5 [...] day, # 30 tab, 1 Refill(s), Pharmacy: [place] [address] pregabalin Yes 50 mg = 1 Me moria 50 MG Oral 4-05 cap, PO, l Capsule 20:17: TID, # 90 Jada nn [Lyrica] 00 cap, 0 Refill(s) valACYclovi No 1 gm = 1 Me moria r 1 g oral 4-02 tab, PO, l tablet 18:18: Q8H, X 7 Mart 00 day, # 21 tab, 1 Refill(s), Pharmacy: [place] [address] valACYclovi No 1 gm = 1 Me moria r 1 g oral 3-13 tab, PO, l tablet 19:40: Q8H, X 7 Mart 00 day, # 21 tab, 1 Refill(s), Pharmacy: [place] [address] polyethylen No 17 gm, PO, Memoria e glycol 3-13 Daily, X l 3350 oral 19:40: 31 day, # Her sellers powder for 00 527 gm, 1 reconstitut Refill(s), ion Pharmacy: [facility] [id number] benzonatate Yes 100 mg = 1 Memoria 100 mg oral 03-31 cap, PO, l capsule 20:29: TID, do [place] 00 not crush or chew, X 10 day, # 30 cap, 0 Refill(s), Pharmacy: [facility] [place] Codeine Yes 5 mL, PO, Memor ia Phosphate 2 -02 Q12H, PRN l MG/ML / 20:29: cough, X José Miguel n Guaifenesin 00 10 day, # 20 MG/ML 100 mL, 0 Oral Refill(s) Solution [Cheratussi n] Fluticasone Yes 1 spray, Me moria propionate 02 NASAL, l 0.05 20:19: BID, # 16 [place] MG/ACTUAT 00 gm, 2 Metered Refill(s), Dose Nasal Pharmacy: [facility] [id number] Azithromyci Yes See Memori a n 5 Day 1-02 Instructio l Dose Pack 20:19: ns, Take 2 He rmann 250 mg oral 00 tablets by tablet mouth the first day then 1 tablet by mouth days 2-5., X 5 day, # 6 tab, 0 Refill(s), Pharmacy: [facility] [id number] clonazePAM 2016-03 Yes 0.5 mg = 1 M emoria 0.5 mg oral 1-27 tab, PO, l tablet, 20:26: BID, # 60 Jada nn disintegrat 00 tab, 1 ing Refill(s) EnteraGam 2015-03 Yes EnteraGam, Me moria 2-14 See l 21:03: Instructio Mart 00 ns, Samples given in clinic on 03/12/16. Lot [id number] exp date 10/15, # 1 box, Refill(s) 0 pantoprazol 2015-03 Yes 40 mg = 1 M emoria e 40 MG 2-14 tab, PO, l Enteric 19:47: Daily, 0 José Miguel n Coated 00 Refill(s) Tablet [Protonix] ARMOUR 2015-03 Yes TK 1 T PO [place] THYROID 30 1-02 QD. Methodi mg tablet 00:00: st 00 Levothyroxi Yes 25 Memori a ne Sodium 6-19 microgram l 0.025 MG 23:57: = 1 tab, Jada nn Oral Tablet 00 PO, Daily, [Synthroid] # 14 tab, 0 Refill(s) Sodium No 1,000 mL, Memori a Chloride 6-19 1,000 l 0.154 22:33: ml/hr, [place] MEQ/ML 00 Infuse Injectable Over: 1 Solution hr, Route: IV, 1,000, Drug form: INJ, ONCE, Priority: STAT, Dosing Weight 85.818 kg, Start date: 09/16/15 17:33:00 CDT, Duration: 1 doses or times, Stop date: 09/16/15 17:33:00 CDT Saline No Notes: Memoria Flush 0.9% 6-19 (Same as: l 22:33: BD [place] 00 Posiflush) cholestyram 2014-03 Yes 4 gm, [...] 00 tab, 1 Tablet Refill(s), [Levsin] Pharmacy: [facility] [id number] Ondansetron 2014-03 Yes 8 mg = 1 Me moria 8 MG 2-17 tab, PO, l Disintegrat 21:16: TID, PRN He rmann ing Tablet 00 Nausea and [Zofran] Vomiting, Dissolve tab under tongue, X 7 day, # 21 tab, 1 Refill(s), Pharmacy: [facility] [id number] GoLYTELY 2014-03 Yes 240 mL, Memori a oral powder 2-16 PO, l for 21:56: Q10Min, # Mart reconstitut 00 1 ea, 0 ion Refill(s), Pharmacy: [facility] [id number] Flagyl 2014-03 Yes 500 mg = 1 Memor ia 2-16 tab, PO, l 20:40: BID, # 14 Mart 00 tab, 0 Refill(s) THYROID Yes Memoria COMPOUND 5-27 l 16:24: [place] 00 VITAMIN D Yes 1 capsule Mem oria (ERGOCALCIF 5-27 weekly x l YASH) [id number] 00:00: 12 weeks He rmann UNIT CAPS 00 OMEPRAZOLE Yes Take one Mem oria 20 MG CPDR 5-26 capsule by l 00:00: mouth [place] 00 daily ONDANSETRON Yes 1 tablet Me moria HCL 4 MG 5-26 every 8 l TABS 00:00: hours as Mart 00 needed for nausea/vom iting QSYMIA Yes 1 po qd Memoria 3.75-23 MG 5-12 l [id number] 00:00: Mart 00 CYCLOBENZAP No 1/2-1 po Me moria RINE HCL 10 1-08 TID as l MG TABS 00:00: needed for Herm rut 00 spasms PROMETHAZIN 2013-03 No 1 SUPP OH M emoria E HCL 25 MG 2-13 Q 4 TO 6 l SUPP 00:00: HRS PRN [place] 00 N/V. TRAMADOL 2013-03 Yes 1 tablet Memor ia HCL 50 MG 1-17 every 12 l TABS 00:00: hours as Mart 00 needed for pain GABAPENTIN 2013-03 No 1 capsule Me moria 100 MG CAPS 1-17 three l 00:00: times a [place] 00 day TRAMADOL 2013-03 No 1 tablet Memor ia HCL 50 MG 1-17 every 12 l TABS 00:00: hours as [place] 00 needed for pain TRAMADOL 2013-03 No 1 tablet Memor ia HCL 50 MG 1-17 every 12 l TABS 00:00: hours as [place] 00 needed for pain Promethazin Yes 12.5 mg = M emoria e 9-03 1 tab, PO, l Hydrochlori 21:44: Q6H, José Miguel n de 12.5 MG 00 Nausea & Oral Tablet Vomiting, [Phenergan] # 20 tab, 0 Refill(s) Acetaminoph Yes 1 tab, PO, Memoria en 325 MG / 03 Q6H, Pain, l Hydrocodone 21:44: # 24 tab, H ermann Bitartrate 00 0 5 MG Oral Refill(s) Tablet [[place] 5/325] Phenergan No Notes: Do Mem oria 11-30 not give l 17:41: IV push. (Same as: Phenergan) Saline No Notes: Memoria Flush 0.9% 11-30 (Same as: l 17:25: BD Posiflush) Carafate Yes 0 Memoria 11-30 Refill(s) l 17:13: Promethazin Yes 0 Memori a e 03 Refill(s) l 17:12: SUCRALFATE No 10 mL [...] as l 00:00: needed for pain OMEPRAZOLE 0 No Take one Mem oria 20 MG CPDR 7-09 capsule by l 00:00: mouth daily MELOXICAM 2013-0 No 1 tablet Marvel fauzia 7.5 MG TABS 7-09 daily as l 00:00: needed for pain MELOXICAM 2013-0 No 1 tablet Marvel fauzia 7.5 MG TABS 7-09 daily as l 00:00: needed for pain OMEPRAZOLE 0 No Take one Mem oria 20 MG CPDR 7-09 capsule by l 00:00: mouth daily PHENTERMINE 0 No 1 tablet Me moria HCL 37.5 MG 6-05 in the l TABS 00:00: morning PHENTERMINE 2013-0 No 1 tablet Me moria HCL 37.5 MG 6-05 in the l TABS 00:00: morning PHENTERMINE 2013-0 No 1 tablet Me moria HCL 37.5 MG 6-05 in the l TABS 00:00: morning PHENTERMINE 2013-0 No 1 tablet Me moria HCL 37.5 MG 6-05 in the l TABS 00:00: morning CARAFATE 1 2012-0 No 10 mL QID Me moria GM/10ML 9-10 l SUSP 00:00: CARAFATE 1 2012-0 No 10 mL QID Me moria GM/10ML 9-10 l SUSP 00:00: ZEGERID 2012-0 No 1 po qd Memoria 40-1680 MG 9-06 l PACK 00:00: ALIGN 2012-0 No one daily Memoria 9-06 l 00:00: ZEGERID 2012-0 No 1 po qd Memoria 40-1680 MG 9-06 l PACK 00:00: GLUMETZA 2012-0 Yes 1 po qd Memori a 500 MG 1-15 l [id number] 00:00: NULEV 0.125 2011-0 No 1 po q Marvel fauzia MG TBDP 9-18 8-12 prn l 00:00: ZITHROMAX 2011-0 No Take as Memor ia Z-MADHU 250 9-10 directed l MG TABS 00:00: [place] 00 Vital Signs Vital Name Observation Time Observation Value Comments Source Systolic blood 2020-07-24 14:07:00 140 mm[Hg] [facility] pressure Diastolic blood 2020-07-24 14:07:00 96 mm[Hg] [facility] pressure Heart rate 2020-07-24 14:07:00 87 /min [place] [facility] Body temperature 2020-07-24 14:07:00 36.28 [place] [facility] Body height 2020-07-24 14:07:00 160 cm [place] [facility] Body weight 2020-07-24 14:07:00 84.369 kg [place] [facility] BMI 2020-07-24 14:07:00 32.95 kg/m2 [place] [facility] Oxygen saturation in 2020-07-24 14:07:00 95 /min [place] [facility] Arterial blood by Pulse oximetry Systolic (mm Hg) 2020-03-09 17:28:00 Marvel rial [place] Diastolic (mm Hg) 2020-03-09 17:28:00 Mem orial Mart Heart Rate 2020-03-09 17:28:00 [facility] Height 2020-03-09 17:28:00 160.02 cm [facility] [place] Weight 2020-03-09 17:28:00 [facility] BMI Calculated 2020-03-09 17:28:00 Memori al [place] Systolic (mm Hg) 2020-01-12 02:03:00 Marvel rial [place] Diastolic (mm Hg) 2020-01-12 02:03:00 Mem orial [place] Respitory Rate 2020-01-12 02:03:00 Memori al Matr Heart Rate 2020-01-12 02:03:00 [facility] [place] Temperature Oral (F) 2020-01-12 02:03:00 98.6 F [facility] Height 2020-01-11 22:44:00 160.02 cm [facility] BMI Calculated 2020-01-11 22:44:00 Memori al Mart Weight 2020-01-11 22:44:00 [facility] Systolic (mm Hg) 2020-01-11 22:44:00 Marvel rial [place] Diastolic (mm Hg) 2020-01-11 22:44:00 Mem orial Mart Heart Rate 2020-01-11 22:44:00 [facility] [place] Respitory Rate 2020-01-11 22:44:00 Memori al [place] Temperature Oral (F) 2020-01-11 22:44:00 98.8 F [facility] Systolic (mm Hg) 2018-12-31 15:55:00 Marvel rial [place] Diastolic (mm Hg) 2018-12-31 15:55:00 Mem orial [place] Heart Rate 2018-12-31 15:55:00 [facility] [place] Temperature Oral (F) 2018-12-31 15:55:00 98.9 F [facility] Height 2018-12-31 15:55:00 160.02 cm [facility] [place] Weight 2018-12-31 15:55:00 [facility] [place] BMI Calculated 2018-12-31 15:55:00 Memori al Mart BMI Calculated 2018-09-22 20:52:00 Memori al [place] Height 2018-09-22 20:52:00 160.02 cm [facility] [place] Weight 2018-09-22 20:52:00 [facility] Systolic (mm Hg) 2018-09-22 20:52:00 Marvel rial Mart Diastolic (mm Hg) 2018-09-22 20:52:00 Mem orial [place] Heart Rate 2018-09-22 20:52:00 [facility] [place] Temperature Oral (F) 2018-09-22 20:52:00 98.3 F [facility] Systolic (mm Hg) 2018-09-03 13:41:00 Marvel rial [place] Diastolic (mm Hg) 2018-09-03 13:41:00 Mem orial Mart Temperature Oral (F) 2018-09-03 13:41:00 98.7 F [facility] [place] Heart Rate 2018-09-03 13:41:00 [facility] [place] Height 2018-09-03 13:41:00 160.02 cm [facility] [place] BMI Calculated 2018-09-03 13:41:00 Memori al Mart Weight 2018-09-03 13:41:00 [facility] [place] Height 2018-07-28 18:46:00 160.02 cm [facility] Weight 2018-07-28 18:46:00 [facility] [place] BMI Calculated 2018-07-28 18:46:00 Memori al Mart Respitory Rate 2018-07-28 18:46:00 Memori al [place] Heart Rate 2018-07-28 18:46:00 [facility] Systolic (mm Hg) 2018-07-28 18:46:00 Marvel rial [place] Diastolic (mm Hg) 2018-07-28 18:46:00 Mem orial Mart Weight 2018-06-14 18:55:00 [facility] BMI Calculated 2018-06-14 18:55:00 Memori al Mart Height 2018-06-14 18:55:00 160.02 cm [facility] Systolic (mm Hg) 2018-06-14 18:55:00 Marvel rial Mart Diastolic (mm Hg) 2018-06-14 18:55:00 Mem orial [place] Temperature Oral (F) 2018-06-14 18:55:00 97.7 F [facility] Heart Rate 2018-06-14 18:55:00 [facility] Temperature Oral (F) 2018-01-05 20:02:00 99 F [facility] Heart Rate 2018-01-05 20:02:00 [facility] Height 2018-01-05 20:02:00 160.02 cm [facility] Weight 2018-01-05 20:02:00 [facility] BMI Calculated 2018-01-05 20:02:00 Memori al [place] Systolic (mm Hg) 2018-01-05 20:02:00 Marvel rial [place] Diastolic (mm Hg) 2018-01-05 20:02:00 Mem orial Mart BMI Calculated 2017-10-06 19:44:00 Memori al [place] Weight 2017-10-06 19:44:00 [facility] [place] Height 2017-10-06 19:44:00 160.02 cm [facility] Heart Rate 2017-10-06 19:44:00 [facility] [place] Temperature Oral (F) 2017-10-06 19:44:00 98.4 F [facility] [place] Systolic (mm Hg) 2017-10-06 19:44:00 Marvel rial Mart Diastolic (mm Hg) 2017-10-06 19:44:00 Mem orial Mart Temperature Oral (F) 2017-07-02 19:47:00 98.4 F [facility] BMI Calculated 2017-07-02 19:47:00 Memori al Mart Height 2017-07-02 19:47:00 160.02 cm [facility] [place] Systolic (mm Hg) 2017-07-02 19:47:00 Marvel rial Mart Diastolic (mm Hg) 2017-07-02 19:47:00 Mem orial [place] Weight 2017-07-02 19:47:00 Memorial [place] Systolic (mm Hg) 2017-06-09 18:55:00 Marvel rial Mart Diastolic (mm Hg) 2017-06-09 18:55:00 Mem orial [place] Height 2017-06-09 18:55:00 160.02 cm [facility] Weight 2017-06-09 18:55:00 [facility] BMI Calculated 2017-06-09 18:55:00 Memori al Mart Heart Rate 2017-06-09 18:55:00 [facility] Temperature Oral (F) 2017-06-09 18:55:00 98.3 F [facility] [place] BMI Calculated 2017-03-31 19:54:00 Memori al [place] Weight 2017-03-31 19:54:00 [facility] Height 2017-03-31 19:54:00 160.02 cm [facility] Temperature Oral (F) 2017-03-31 19:54:00 99.0 F [facility] [place] Systolic (mm Hg) 2017-03-31 19:54:00 Marvel rial Mart Diastolic (mm Hg) 2017-03-31 19:54:00 Mem orial [place] Weight 2017-02-23 19:45:00 [facility] [place] BMI Calculated 2017-02-23 19:45:00 Memori al [place] Height 2017-02-23 19:45:00 160.02 cm [facility] Systolic (mm Hg) 2017-02-23 19:45:00 Marvel rial [place] Diastolic (mm Hg) 2017-02-23 19:45:00 Mem orial Mart Temperature Oral (F) 2017-02-23 19:45:00 97.9 F [facility] Systolic (mm Hg) 2016-03-12 19:37:00 Marvel rial [place] Diastolic (mm Hg) 2016-03-12 19:37:00 Mem orial Mart Heart Rate 2016-03-12 19:37:00 [facility] [place] Weight 2016-03-12 19:37:00 [facility] [place] BMI Calculated 2016-03-12 19:37:00 Memori al [place] Height 2016-03-12 19:37:00 160.02 cm [facility] Respitory Rate 2016-03-12 19:37:00 Memori al Mart Respitory Rate 2015-09-16 23:31:00 Memori al Mart Heart Rate 2015-09-16 23:31:00 [facility] [place] Systolic (mm Hg) 2015-09-16 23:31:00 Marvel rial [place] Diastolic (mm Hg) 2015-09-16 23:31:00 Mem orial [place] BMI Calculated 2015-09-16 21:59:00 Memori al [place] Weight 2015-09-16 21:59:00 [facility] Temperature Oral (F) 2015-09-16 21:59:00 98.0 F [facility] [place] Heart Rate 2015-09-16 21:59:00 [facility] [place] Respitory Rate 2015-09-16 21:59:00 Memori al [place] Height 2015-09-16 21:59:00 160.02 cm [facility] [place] Systolic (mm Hg) 2015-09-16 21:59:00 Marvel rial [place] Diastolic (mm Hg) 2015-09-16 21:59:00 Mem orial Mart BMI Calculated 2015-03-14 20:38:00 Memori al Mart Weight 2015-03-14 20:38:00 [facility] [place] Height 2015-03-14 20:38:00 160.02 cm [facility] Heart Rate 2015-03-14 20:38:00 [facility] Temperature Oral (F) 2015-03-14 20:38:00 97.9 F [facility] Systolic (mm Hg) 2015-03-14 20:38:00 Marvel rial [place] Diastolic (mm Hg) 2015-03-14 20:38:00 Mem orial Mart Height 2014-08-23 20:15:21 [facility] Temperature Oral (F) 2014-08-23 20:15:21 97.9 F [facility] Systolic (mm Hg) 2014-08-23 20:15:21 Marvel rial Mart Diastolic (mm Hg) 2014-08-23 20:15:21 Mem orial Mart Heart Rate 2014-08-23 20:15:21 [facility] Weight 2014-08-23 20:15:21 [facility] Height 2014-08-22 18:24:51 [facility] [place] Weight 2014-08-22 18:24:51 [facility] [place] Temperature Oral (F) 2014-08-22 18:24:51 96.2 F [facility] Systolic (mm Hg) 2014-08-22 18:24:51 Marvel rial [place] Diastolic (mm Hg) 2014-08-22 18:24:51 Mem orial [facility] Heart Rate 2014-08-22 18:24:51 [facility] Height 2014-08-08 13:49:47 [facility] Weight 2014-08-08 13:49:47 [facility] [place] Temperature Oral (F) 2014-08-08 13:49:47 97.5 F [facility] [place] Systolic (mm Hg) 2014-08-08 13:49:47 Marvel rial [place] Diastolic (mm Hg) 2014-08-08 13:49:47 Mem orial [place] Heart Rate 2014-08-08 13:49:47 [facility] [place] Weight 2014-04-06 19:44:51 [facility] [place] Temperature Oral (F) 2014-04-06 19:44:51 96.9 F [facility] [place] Systolic (mm Hg) 2014-04-06 19:44:51 Marvel rial [place] Diastolic (mm Hg) 2014-04-06 19:44:51 Mem orial [place] Heart Rate 2014-04-06 19:44:51 [facility] Height 2014-02-13 17:13:31 [facility] [place] Weight 2014-02-13 17:13:31 [facility] [place] Temperature Oral (F) 2014-02-13 17:13:31 98.4 F [facility] Heart Rate 2014-02-13 17:13:31 [facility] [place] Systolic (mm Hg) 2014-02-13 17:13:31 Marvel rial [place] Diastolic (mm Hg) 2014-02-13 17:13:31 Mem orial [place] Systolic (mm Hg) 2013-11-30 21:22:00 Marvel rial [place] Diastolic (mm Hg) 2013-11-30 21:22:00 Mem orial [place] Respitory Rate 2013-11-30 21:22:00 Memori al [facility] Heart Rate 2013-11-30 21:22:00 [facility] Systolic (mm Hg) 2013-11-30 19:00:00 Marvel rial [place] Diastolic (mm Hg) 2013-11-30 19:00:00 Mem orial [place] Heart Rate 2013-11-30 19:00:00 [facility] [place] Respitory Rate 2013-11-30 19:00:00 Memori al Mart Weight 2013-11-30 17:06:00 [facility] Height 2013-11-30 17:06:00 160.02 cm [facility] BMI Calculated 2013-11-30 17:06:00 Memori al [place] Temperature Oral (F) 2013-11-30 17:06:00 98.2 F [facility] Respitory Rate 2013-11-30 17:06:00 Memori al Mart Heart Rate 2013-11-30 17:06:00 [facility] Diastolic (mm Hg) 2013-11-30 17:06:00 Mem orial [place] Systolic (mm Hg) 2013-11-30 17:06:00 Marvel rial Mart Height 2013-11-21 16:45:30 [facility] Weight 2013-11-21 16:45:30 [facility] [place] Systolic (mm Hg) 2013-11-21 16:45:30 Marvel rial [place] Diastolic (mm Hg) 2013-11-21 16:45:30 Mem orial [place] Heart Rate 2013-11-21 16:45:30 [facility] [place] Weight 2013-11-07 16:51:30 [facility] Temperature Oral (F) 2013-11-07 16:51:30 98.2 F [facility] Systolic (mm Hg) 2013-11-07 16:51:30 Marvel rial [place] Diastolic (mm Hg) 2013-11-07 16:51:30 Mem orial [facility] Heart Rate 2013-11-07 16:51:30 [facility] Weight 2013-10-25 18:37:21 [facility] [place] Temperature Oral (F) 2013-10-25 18:37:21 97.9 F [facility] [place] Respitory Rate 2013-10-25 18:37:21 Memori al [facility] Heart Rate 2013-10-25 18:37:21 [facility] Systolic (mm Hg) 2013-10-25 18:37:21 Marvel rial [facility] Diastolic (mm Hg) 2013-10-25 18:37:21 Mem orial [place] Weight 2013-10-05 19:17:34 [facility] [place] Temperature Oral (F) 2013-10-05 19:17:34 97.7 F [facility] [place] Heart Rate 2013-10-05 19:17:34 [facility] [place] Systolic (mm Hg) 2013-10-05 19:17:34 Marvel rial [place] Diastolic (mm Hg) 2013-10-05 19:17:34 Mem orial [place] Temperature Oral (F) 2013-09-01 20:40:23 98.3 F [facility] [place] Weight 2013-09-01 20:40:23 [facility] [place] Systolic (mm Hg) 2013-09-01 20:40:23 Marvel rial [place] Diastolic (mm Hg) 2013-09-01 20:40:23 Mem orial [place] Heart Rate 2013-09-01 20:40:23 [facility] [place] Weight 2012-12-07 15:01:11 [facility] [place] Temperature Oral (F) 2012-12-07 15:01:11 97.4 F [facility] [place] Systolic (mm Hg) 2012-12-07 15:01:11 Marvel rial [place] Diastolic (mm Hg) 2012-12-07 15:01:11 Mem orial [place] Heart Rate 2012-12-07 15:01:11 [facility] Systolic (mm Hg) 2012-12-03 14:46:01 Marvel rial [place] Diastolic (mm Hg) 2012-12-03 14:46:01 Mem orial [facility] Heart Rate 2012-12-03 14:46:01 [facility] [place] Temperature Oral (F) 2012-12-03 14:46:01 98.0 F [facility] Weight 2012-12-03 14:46:01 [facility] Weight 2012-07-29 20:41:00 [facility] [place] Temperature Oral (F) 2012-07-29 20:41:00 97.2 F [facility] [place] Systolic (mm Hg) 2012-07-29 20:41:00 Marvel rial [place] Diastolic (mm Hg) 2012-07-29 20:41:00 Mem orial [place] Heart Rate 2012-07-29 20:41:00 [facility] Weight 2012-04-30 15:58:31 [facility] [place] Systolic (mm Hg) 2012-04-30 15:58:31 Marvel rial [facility] Diastolic (mm Hg) 2012-04-30 15:58:31 Mem orial [place] Heart Rate 2012-04-30 15:58:31 [facility] [place] Temperature Oral (F) 2012-04-30 15:58:31 96.6 F [facility] Height 2011-12-08 14:51:31 [facility] [place] Weight 2011-12-08 14:51:31 [facility] [place] Temperature Oral (F) 2011-12-08 14:51:31 97.5 F [facility] Systolic (mm Hg) 2011-12-08 14:51:31 Marvel francisca Mart Diastolic (mm Hg) 2011-12-08 14:51:31 Mem orial [place] Heart Rate 2011-12-08 14:51:31 [facility] Procedure Date / Time Performed Performing Clinician Horacio vera Removal of gallbladder 2013-03-30 06:00:00 Memor ial [place] colonoscopy 2008-03-30 17:58:11 [facility] Her sellers vaginal Pap smear results 2008-03-30 15:51:31 Me morial [place] mammogram 1999-03-30 15:51:31 [facility] Her sellers Bilateral tubal ligation Mak breen [place] Carpal tunnel release [facility] H ermann [facility]amm[facility] Plan [facility] Care Planned Activity Planned Date Details Comments Source Future Scheduled 2020-10-28 INFLUENZA VACCINE [place] [facility] 00:00:00 [code = INFLUENZA VACCINE] Future Scheduled 2006 BREAST CANCER [place] [facility] 00:00:00 SCREENING [code = BREAST CANCER SCREENING] Future Scheduled 2006 COLONOSCOPY SCREENING [place] [facility] 00:00:00 [code = COLONOSCOPY SCREENING] Future Scheduled 2006 SHINGLES VACCINES [place] [facility] 00:00:00 (#1) [code = SHINGLES VACCINES (#1)] Future Scheduled 1977 Screening for [place] [facility] 00:00:00 malignant neoplasm of cervix (procedure) [code = 163646090] Future Scheduled 1974 Hepatitis C screening [place] [facility] [facility] 00:00:00 (procedure) [code = 632250846] Future Scheduled 1972 COVID-19 VACCINE (1) [facility] [facility] [facility] 00:00:00 [code = COVID-19 VACCINE (1)] Encounters Start End Encounter Admission Attending Care Care Encounter Source Date/Time Date/Time Type Type Clinicians Facility Department ID 2020-07-24 2020-07-24 Outpatient SUSTACHE, [facility] [id number] [place] 00:00:00 00:00:00 CARLOS Borges[address] 2020-07-23 2020-07-23 Emergency E [facility] [id number] [facility] 16:54:00 16:54:00 2020-03-09 2020-03-09 [id number] 11:08:00 23:59:00 Epifanio Velasquez 2020-03-09 2020-03-09 Outpatient [facility] [id number] [facility] 11:08:00 11:08:00 2020-01-11 2020-01-11 Outpatient Fco Estrada MHSL MHSL [id number] 17:36:56 21:26:00 Palomo 69 2019-10-07 2019-10-08 Outpatient [facility] [id number] 15:30:17 15:30:17 68 2019-10-07 2019-10-07 Outpatient Sustache, [facility] [id number] 15:30:00 15:30:00 Carlos 27 2019-01-03 2019-01-04 Outpatient [facility] [id number] 17:03:00 17:03:00 67 2018-12-31 2018-12-31 Outpatient Sustache, [facility] [id number] 11:00:00 23:59:59 Carlos 26 2018 2018-09-28 Outpatient [facility] [id number] 09:45:47 09:45:47 65 2018-09-24 2018-09-25 Outpatient [facility] [id number] 12:35:02 12:35:02 64 2018-09-22 2018-09-23 Outpatient [facility] [id number] 16:49:52 16:49:52 63 2018-09-22 2018-09-22 Outpatient Sustache, [facility] [id number] 13:30:00 23:59:59 Carlos 25 2018-09-06 2018-09-07 Outpatient [facility] [id number] 08:31:31 08:31:31 61 2018-09-03 2018-09-03 Outpatient Sustache, [facility] [id number] 09:00:00 23:59:59 Carlos 24 2018-07-28 2018-07-28 Outpatient Tofte, [facility] [id number] 01:39:00 23:59:00 Epifanio Velasquez 2018-07-28 2018-07-28 Outpatient [facility] [id number] [facility] 01:39:00 01:39:00 2018-06-16 2018-06-17 Outpatient [facility] MH[facility] [id number] 15:32:41 15:32:41 59 2018-06-14 2018-06-14 Outpatient Sustache, [facility] [id number] 14:10:00 23:59:59 Carlos 23 2018-01-19 2018-01-20 Outpatient [facility] [id number] 11:25:00 23:59:59 38 2018-01-08 2018-01-09 Outpatient [facility] [id number] 08:55:00 23:59:59 37 2018-01-08 2018-01-09 Outpatient [facility] [id number] 08:54:00 23:59:59 36 2018-01-05 2018-01-06 Outpatient [facility] [id number] 08:32:00 23:59:59 35 2018-01-05 2018-01-05 Outpatient Sustache, [facility] [id number] 14:50:00 23:59:59 Carlos 22 2018-01-05 2018-01-05 Outpatient Alas, MH29 MH29 [id number] 16:42:00 23:59:00 Mercedez 02 2017-12-30 2017-12-31 Outpatient [facility] MH[facility] [id number] 15:39:00 23:59:59 34 2017-12-30 2017-12-31 Outpatient [facility] [id number] 10:11:00 23:59:59 33 2017-11-06 2017-11-07 Outpatient [facility] [id number] 16:20:00 23:59:59 32 2017-10-06 2017-10-06 Outpatient Sustache, [facility] MH[facility] [id number] 14:30:00 23:59:59 Carlos 21 2017-07-28 2017-07-29 Outpatient [facility] [id number] 15:09:00 23:59:59 31 2017-07-28 2017-07-29 Outpatient [facility] MH[facility] [id number] 15:09:00 23:59:59 31 2017-07-27 2017-07-28 Outpatient [facility] [id number] 08:56:00 23:59:59 30 2017-07-27 2017-07-28 Outpatient [facility] [id number] 08:56:00 23:59:59 30 2017-07-02 2017-07-02 Outpatient Sustache, [facility] [id number] 14:50:00 23:59:59 Carlos 20 2017-06-29 2017-06-29 Outpatient Sustache, [facility] [id number] 14:50:00 14:50:00 Carlos 19 2017-06-26 2017-06-27 Outpatient [facility] MH[facility] [id number] 14:14:00 23:59:59 27 2017-06-15 2017-06-16 Outpatient [facility] [id number] 14:19:00 23:59:59 26 2017-06-09 2017-06-09 Outpatient Sustache, [facility] [id number] 13:50:00 23:59:59 Carlos 18 2017-06-05 2017-06-06 Outpatient [facility] [id number] 11:21:00 23:59:59 25 2017-06-05 2017-06-05 Outpatient Danny, MHPL MHPL [id number] 20:21:00 20:28:00 Zeb Damon 17 2017-06-05 2017-06-05 Outpatient Danny, [facility] [id number] 20:21:00 20:28:00 Zeb Damon 17 2017-03-31 2017-03-31 Outpatient Sustache, [facility] [id number] 13:50:00 23:59:59 Carlos 17 2017-03-12 2017-03-13 Outpatient [facility] [id number] 14:29:00 23:59:59 24 2017-03-09 2017-03-10 Outpatient [facility] [id number] 08:24:00 23:59:59 23 2017-02-23 2017-02-23 Outpatient Sustache, [facility] [id number] 13:50:00 23:59:59 Carlos 16 2016-03-25 2016-03-25 Outpatient Kamron, MH35 MH35 [id number] 09:58:00 23:59:00 Epifanio Velasquez 2016-03-12 2016-03-12 Outpatient Kamron, [facility] [id number] 13:31:00 23:59:00 Epifanio Ron 2015-09-16 2015-09-16 Outpatient Deena, [facility] [id number] 16:47:00 19:06:00 Michelle Gallardo 2015-04-30 2015-04-30 [facility] [facility] [id number] 11:15:00 14:00:00 Epifanio 03 Ron 2015-03-14 2015-03-14 Outpatient Kamron, [facility] [id number] 14:09:00 23:59:00 Epifanio Ron 2015-02-23 2015-02-23 Outpatient Ann Marie, MH29 [facility] [id number] 06:58:00 23:59:00 Sb Saunders 2013-11-30 2013-11-30 Outpatient Desean Mosquera [facility] [id number] 11:56:00 17:05:00 00 Results Test Description Test Time Test Comments Results Result Comments Source URINE AND STOOL 2020-01-11 [facility] 23:55:00 *NA*(01/11/20 [place] 6:55 PM) URINE AND STOOL 2020-01-11 [facility] 23:55:00 (01/11/20 6:55 [place] PM) URINE AND STOOL 2020-01-11 23:55:00 Test Item Value Reference Range Interpretation Comme nts UA Spec Grav (test code = UA Spec Grav) 1.005 1 [facility] [id number] 23:55:00 Test Item Value Reference Range Interpretation Comments UA pH (test code = UA pH) 7.0 1 5.0-8.0 [facility] [id number] 23:55:00Negative (01/11/20 6:55 PM) [facility] KPBLW8708-64-19 23:55:00Negative *NA*(01/11/20 6:55 PM)[facility] GOTSO1230-50-34 23:55:00Negative *NA*(01/11/20 6:55 PM)[facility] PFXUB7702-05-15 23:55:00Negative *NA*(01/11/20 6:55 PM)[facility] PYMSA1105-58-73 23:55:00Small *ABN*(01/11/20 6:55 PM)[facility] XOOHC7866-64-55 23:55:00Negative (01/11/20 6:55 PM) [facility] AEOKC4875-83-11 23:55:00Trace *ABN*(01/11/20 6:55 PM) [facility] HUMKD8801-06-46 23:55:005[facility] JUUWS0814-95-83 23:55:001[facility]ann[facility]ARDIAC SBXMNXN8897-11-81 23:40:00 <0.02[facility]annCHE[facility] GZWLL4157-46-54 23:40:0094[facility]ann[facility] ZGUBW4494-13-66 23:40:0010[facility] HHNBD1131-36-26 23:40:000.93 [facility] RPZYQ1343-26-76 23:40:35170Gktgfajj HermannCHEM PANEL 2020-01-11 23:40:003.6[facility]ann[facility] RSBRX8935-90-24 23:40:63461Fuqggvvu HermannCHEM AAFJK2751-71-17 23:40:0028[facility]annCHE[facility] BSICU5870-77-50 23:40:009.4[facility] CCXRM3506-09-61 23:40:007.2[facility] YBYQJ3081-97-43 23:40:003.7[facility]ann[facility] JQSHY0974-66-18 23:40:0028 [facility] CMPOU3599-58-52 23:40:0023[facility]annCHEM PANEL 2020-01-11 23:40:0078[facility] KTKWF6671-77-14 23:40:001.1[facility] JTGYX7350-77-74 23:40:0010.6[facility]annCHE[facility] DAVOB0523-62-41 23:40:00 Test Item Value Reference Range Interpretation Comments B/C Ratio (test code = B/C Ratio) 11 1 6-25 [facility] ZJVTG3994-21-22 23:40:003.5[facility]annCHEM PANEL 2020-01-11 23:40:00 Test Item Value Reference Range Interpretation Comments A/G Ratio (test code = A/G Ratio) 1.1 1 0.7-1.6 [facility] PUPBX4187-39-44 23:40:0066[facility]annCHEM PANEL 2020-01-11 23:40:40323Ripurnnz HermannCHEM CECTJ2443-40-74 23:40:002.1[facility] HnphsumIIVYTMYDVL6695-88-61 23:40:008.8[facility] GcffsuaMHFQGDCTMV6824-16-22 23:40:005.09[facility] OxdgeisPTMUGYYPMQ3177-14-54 23:40:0015.6[facility] [place] IZNPFCTZOX7791-09-21 23:40:0045.2[facility] UhfptdqALVNSSFJMZ6309-71-06 23:40:00 88.8[facility] TwgirjoCQJLAOGXWD4436-53-11 23:40:00 Test Item Value Reference Range Interpretation Comments MCH (test code = MCH) 30.7 pg 27.0-31.0 [facility] OatcdmkMVTDKLOLYA7436-01-37 23:40:0034.6[facility] HermannHEMATOLOGY 2020-01-11 23:40:0013.6[facility] JatwdxhDFWSUSJNCX4435-79-20 23:40:71083Fqhcdmyo LtflwhbDCIUMQHJWS1488-85-08 23:40:009.4[facility] LgmkemkOKSUMFDZTK9479-16-27 23:40:00 Test Item Value Reference Range Interpretation Comments PT (test code = PT) 12.6 s 12.0-14.7 [facility] GshsbisYWKGXUXAIF4672-29-53 23:40:00 Test Item Value Reference Range Interpretation Comments INR (test code = INR) 0.94 1 0.85-1.17 [facility] FiggzqxPSWBTXHZAG0819-20-01 23:40:00 Test Item Value Reference Range Interpretation Comments PTT (test code = PTT) 23.7 s 22.9-35.8 [facility] BokisgiKYAQUZVVJU1078-16-85 23:40:0067.2[facility] HermannHEMATOLOGY 2020-01-11 23:40:0021.9[facility] NcnqhpdPMNQJCZKMK2045-71-03 23:40:008.9[facility] DagydntMAUUDLRYOE3581-22-17 23:40:001.2[facility] RjzgpkjLLNKKZFDET9440-28-51 23:40:000.8[facility] MzthrnoHAKIZOKUEN8021-44-20 23:40:005.9[facility] LDGOOQRGQH8208-02-26 23:40:001.9[facility] IfobtjlJHTLLPYQRT1986-42-75 23:40:000.8 [facility] UixgqfmHTHMJQLYCE1578-52-85 23:40:000.1[facility]annHEMATOLOGY 2020-01-11 23:40:000.1[facility] XpmsihcZUHO1600-27-09 11:22:00 RUN DATE: 01/01/18 [facility] - LAB *LIVE* PAGE 1 RUN TIME: 1122 Specimen Inquiry RUN USER: INTERFACE PATIENT: BOZENA MARSH LOC: EVA U #: [id number] AGE/SX: 62/F ROOM: RE12/31/17HAN DR: Raz Gaspar III : 57 BED: DIS: [place] [facility] [place] SPEC #: [id number] RECD: 12/31/17 STATUS: HENRY DELGADO #: [id number] SHYANN: 12/31/[address]: Raz Gaspar III, MD ENTERED: 12/31/17 SP TYPE: SURG OTHR D R: No Primary or Family PhysicianORDERED: SURG PATH LVL 1, SURG PATH LVL 4 COPIES TO: No Primary or Family Physician Raz Gas[place], MD[address] [facility] [address] [place] [address] HISTOLOGY: TISSUEID BLK PCS ANAIS LEV PROCEDURE DISPOSITION ____ ___ ___ ___ NASAL TURBINATE A 1 1 NASAL SEPTUM, N B 1 1 PROCEDURES: SURG PATH LVL 1 (01/01/18) SURG PATH LVL 4 (01/01/18) TISSUES: A. NASAL TURBINATE, NOS - BILATERAL INFERIOR TURBINATES B. NASAL SEPTUM, NOS - SEPTUM CPT CODES CPT CODE(S): 88923 , 68066 , , , , , FINAL DIAGNOSIS A. Inferior turbinate, bilateral, endoscopic sinus surgery: SINUS CONTENTS CONSISTENT WITH CHRONIC SINUSITIS B. Nasal septum, septoplasty: BONE AND CARTILAGE (GROSS ONLY) GROSS DESCRIPTION A. Bilateral inferior turbinates. Received in formalin are irregular fragments of sauceda-brown soft tissue admixed with dark brown blood clots, 2.7 x 1.8 x 1.0 cm in aggregate. Volleyball Player sections submitted as A. B. Septum. Received in formalin are multiple irregular fragments of cartilage CONTINUED ON NEXT PAGE RUN DATE: 01/01/18 [facility] - LAB *LIVE* PAGE 2 RUN TIME: 1122 Specimen Inquiry RUN USER: INTERFACE --------- ---SPEC #: [id number] PATIENT: BOZENA MARSH #[id number] (Continued) GROSS DESCRIPTION (Continued) and bones, 5.0 x 3.5 x 0.7 cm in aggregate. The specimen is photographed for gross identification only. ba/nr Grossing performed at [facility] Pathology, [facility], [address], [place] [address]. Dishroom Attendant: Ralph Dash M.D. MICROSCOPIC DESCRIPTION A. Bilateral inferior turbinates. Fragments of respiratory epithelium lined mucosa. There are benign mucus glands and a chronic inflammatory infiltrate. Fragments of unremarkable cartilage and bone present. No evidence of malignancy. B. Septum. For gross identification only. /doug- Signed SIGNATURE ON FILE Kel Chatterjee 01/01/18 1122 END OF REPORT CARDIAC YCNSAOX1563-84-28 22:47:00<0.02 [facility] TRRZELY6316-88-27 22:47:00<0.5[facility]annC[facility] DALLGYE1036-32-18 22:47:0054[facility] XHNKTFT5638-55-81 22:47:00 <0.9[facility]annCHEM RXMGY7645-59-02 22:47:007.0[facility]annCHE[facility] VCWMG0795-90-79 22:47:0071[facility]annCHE[facility] UPQAW5580-88-74 22:47:003.3 [facility] ELGCU3739-96-48 22:47:001.1[facility]annCHEM PANEL 2015-09-16 22:47:000.8[facility]annCHE[facility] ZKBVF1008-10-73 22:47:0077[facility]annCHE[facility] GPRVD5572-96-15 22:47:0012.7[facility]annCHE[facility] VWXPC8820-67-87 22:47:0018[facility]annCHE[facility] GRXLI8521-14-69 22:47:003.7[facility]annCHE[facility] LNDLZ5218-72-32 22:47:0024[facility]annCHE[facility] JPSHG5972-20-90 22:47:0018 [facility]annCHE[facility] WNSWF2702-38-96 22:47:07076Plkbpngl HermannCHEM PANEL 2015-09-16 22:47:003.7[facility]annCHEM CXGVL0836-70-59 22:47:0028[facility]annCHEM MNUZK5246-40-82 22:47:008.6[facility]annCHEM JHJCB3854-74-71 22:47:74312Porovvst HermannCHEM WRQVU3727-40-95 22:47:000.90[facility]annCHEM WKWCP6831-10-44 22:47:0016[facility]annCHEM VCBHJ1974-33-54 22:47:80436 Memorial BotgqauGCVAYNUCZJ3283-60-76 22:47:008.8[facility] HermannHEMATOLOGY 2015-09-16 22:47:005.39[facility] JxcptwxPOJMJNRNKC9203-34-20 22:47:0088.0[facility] OkxrerdZHQXBNBDWK5406-92-97 22:47:0015.6[facility] OdsasduFKLDJZYXIZ4861-96-26 22:47:00 Test Item Value Reference Range Interpretation Comments MCH (test code = MCH) 29.0 pg 27.0-31.0 [facility] UhzlifhWZOPSKCLAF8129-92-76 22:47:009.5[facility]annHEMATOLOGY 2015-09-16 22:47:66041Siduiyov ZuqcmfuDJRFVVVQSP1652-56-01 22:47:0033.0[facility] XeufhloRLUVYVHRVA5623-10-95 22:47:0013.3[facility] GlmblygWOYZYNVBSD7483-78-05 22:47:0047.5[facility] EeeqzroJZRQQMNHDF8442-73-00 22:47:000.5[facility] WYISHLGVXP5311-83-45 22:47:001.1[facility] OfvqmkvQKEUAMASOD3832-47-57 22:47:006.3 [facility] HtyffomZKNFQZEDNM3818-58-90 22:47:0054.0[facility] HermannHEMATOLOGY 2015-09-16 22:47:0038.1[facility] QfbyasaLTNTLVGHLJ1598-81-07 22:47:000.0[facility] UxjjthiBCBJFRRASN9101-08-90 22:47:000.1[facility] OkyjglgTOMZGPUSSY0643-14-14 22:47:000.6[facility] IfqzmnqWVXXAEGQDE0977-51-16 22:47:003.4[facility] [place] AIEEHJQVEV1754-18-77 22:47:004.7[facility] VIZTG0992-28-72 22:47:00None Seen (09/16/15 5:47 PM)[facility] HHTYA6820-22-28 22:47:00Negative (09/16/15 5:47 PM)[facility] JSULZ5876-65-37 22:47:00Negative (09/16/15 5:47 PM)[facility] LBFYT7957-97-95 22:47:00None Seen (09/16/15 5:47 PM)[facility] MWTEY5663-48-32 22:47:00Performed (09/16/15 5:47 PM)[facility] YIRYB1735-02-88 22:47:00Negative (09/16/15 5:47 PM)[facility] SUBPA0353-26-44 22:47:00Negative (09/16/15 5:47 PM)[facility] ATVLU7805-58-62 22:47:00 Test Item Value Reference Range Interpretation Comments UA pH (test code = UA pH) 6.0 1 5.0-8.0 [facility] DJBGK2601-24-66 22:47:00Negative *NA*(09/16/15 5:47 PM) [facility] UJZYU8418-61-51 22:47:00Negative *NA*(09/16/15 5:47 PM) [facility] GUHMV5941-10-41 22:47:000.2[facility] TDLHW4504-51-76 22:47:00Trace *ABN*(09/16/15 5:47 PM)[facility] NRRAF1594-66-94 22:47:00Clear (09/16/15 5:47 PM)[facility] STOOL 2015-09-16 22:47:00Yellow *NA*(09/16/15 5:47 PM)[facility] STOOL 2015-09-16 22:47:00 Test Item Value Reference Range Interpretation Comments UA Spec Grav (test code = UA Spec 1.025 1 Grav) [facility] XtdyaguDdifrjvi2791-82-69 21:24:000.6 U/mLMemorial HermannChemistry 2014-08-22 19:06:000.96[facility] FdqcklpElsdthurji9513-03-58 19:06:001[facility] GqwjtncQahvtcwx8772-12-21 19:06:00NegativeMemorial HermannURINE AND STOOL 2013-11-30 19:00:45Negative *NA*(11/30/13 2:00 PM)[facility] 2013-11-30 19:00:45Trace *ABN*(11/30/13 2:00 PM)[facility] STOOL 2013-11-30 19:00:450.2[facility] LSETB8941-52-59 19:00:45 Test Item Value Reference Range Interpretation Comments UA pH (test code = UA pH) 6.0 1 5.0-8.0 [facility] IORZK5784-99-69 19:00:45Negative *NA*(11/30/13 2:00 PM) [facility] UWJFV3748-13-54 19:00:45Negative (11/30/13 2:00 PM) [facility] MDCNN3603-13-99 19:00:45Negative (11/30/13 2:00 PM) [facility] QDNHE5655-36-41 19:00:45Clear (11/30/13 2:00 PM)[facility] DQXKU6654-58-07 19:00:45 Test Item Value Reference Range Interpretation Comments UA Spec Grav (test code = UA Spec 1.020 1 Grav) [facility] PTGGU4988-54-73 19:00:45Yellow *NA*(11/30/13 2:00 PM) [facility] BYBVF5024-48-62 19:00:45Negative (11/30/13 2:00 PM) [facility] NCQJZ0658-93-76 19:00:45Negative (11/30/13 2:00 PM) [facility]annCHEM ZVAQV3432-60-49 17:35:0016[facility] HermannCHEM PANEL 2013-11-30 17:35:0014.0[facility] HermannCHEM LRLOC0337-58-49 17:35:003.9[facility] HermannCHEM RCMIT1892-11-87 17:35:001.1[facility] HermannCHEM FWBVG9839-86-99 17:35:0071[facility]annCHEM NDZGD9687-90-62 17:35:0031[facility]annCHEM WTWIX4291-35-70 17:35:0025Mem[facility] HermannCHEM JCKHR0131-47-65 17:35:0093 [facility]annCHE[facility] YUXUP3829-45-82 17:35:000.9[facility] HermannCHEM PANEL 2013-11-30 17:35:009.5[facility]annCHEM KKPQM4650-55-51 17:35:008.0[facility] HermannCHEM EMKUY3285-39-43 17:35:004.1[facility] HermannCHEM KOFXS8143-02-28 17:35:0024Mem[facility] HermannCHEM QVCXW5743-65-40 17:35:29126Mozbxivp HermannCHEM DBXVY7480-93-25 17:35:000.9[facility] HermannCHEM DLNZJ0305-32-30 17:35:78452 [facility]annCHEM GUYAH2873-99-92 17:35:004.0[facility] HermannCHEM PANEL 2013-11-30 17:35:0014Mem[facility] HermannCHEM MNQBO8209-91-40 17:35:0092Mem[facility] HermannCHEM KFSPM2790-21-31 17:35:72453Jcxlmbau HermannCHEM IDQLC3518-48-26 17:35:0035Mem[facility] UifqalyLQUICXSWTI6862-69-01 17:35:0034.0[facility] KWISYVXGRL2397-73-77 17:35:0012.7[facility] EjtxervBFITWKNUMQ7361-95-80 17:35:00 236[facility] WrszplzVRAMKJQIVX7223-54-83 17:35:009.6[facility] HermannHEMATOLOGY 2013-11-30 17:35:0016.9[facility] HrjkvtqKILFHDSMMZ4547-75-92 17:35:007.1[facility] XgobrlxRPWXTJPUEK6317-03-62 17:35:005.64[facility] HqfzgcaHXFXEOSNRZ7858-82-51 17:35:0049.7[facility] UdhwdvuDSYELEWQPI0690-74-82 17:35:00 Test Item Value Reference Range Interpretation Comments MCH (test code = MCH) 29.9 pg 27.0-31.0 [facility] NxprzexFDWXVNPVNB7427-71-45 17:35:0088.0[facility] HermannHEMATOLOGY 2013-11-30 17:35:000.0[facility] MryyeyoYQWZDQIOHO8420-93-66 17:35:004.8[facility] NuxqckdZHBPJOHPNJ3092-82-04 17:35:000.4[facility] QqjvwnvCVWVXXDBCA2326-90-96 17:35:000.5[facility] XxyzydmCYJQLDSYGW0836-75-66 17:35:000.0[facility] [place] VXICZKZYTC3673-59-26 17:35:000.7[facility] RysdjaaETOWNTNFBN7564-55-88 17:35:001.8 Memorial BfjfovsTZHSXJGYEM0297-82-96 17:35:0067.7[facility] HermannHEMATOLOGY 2013-11-30 17:35:005.7[facility] DpihryvAVKTHAUKRH9636-15-34 17:35:0025.4[facility] YkmdkxoUGIPIOGJKF4464-99-17 17:35:00Negative (11/30/13 12:35 PM)[facility] Rrruccqk9925-79-91 19:05:000.6 U/mLMemorial VwaoyirDkdkzwrs2884-83-32 19:05:00 0.6 U/mLMemorial HermannOb/Jps8305-31-09 15:51:31NormalMemorial HermannOb/Grinder Set Up Operator External 2008-03-30 15:51:31NormalMemorial HermannOb/Jkw0576-02-74 15:51:31NormalMemorial HermannOb/Ggf7570-44-01 15:51:31NormalMemorial JpjbtjfOetogltjk3986-78-15 15:51:31NormalMemorial BouhihtWtjenxvmi9858-27-84 15:51:31NormalMemorial Mart
[2020-07-25 11:56] LABS: Urine Blood Trace-intact (Negative); Urine Glucose Negative (Negative); Urine Protein Negative (Negative); Urine pH 6.5 (5.0-7.0)
[2020-07-25 12:29] LABS: Absolute Lymphocytes (CBC) 1.5 K/uL (0.7-4.9); Lymphocytes % 26.1 % (15.3-44.8); MPV 9.7 fL (7.6-11.3); RBC Red Blood Cell Count 5.59 M/uL (3.86-4.86)
--- NOTE | 2020-07-25 12:33 | RAD REPORT ---
EXAM DESCRIPTION: CT - Head Brain Wo Cont - 07/25/2020 12:24 pm CLINICAL HISTORY: paresthesias Headache, drowsiness COMPARISON: No comparisons TECHNIQUE: All CT scans are performed using dose optimization technique as appropriate and may inclu de automated exposure control or mA/KV adjustment according to patient size. FINDINGS: No intracranial hemorrhage, hydrocephalus or extra-axial fluid collection.No areas of brai n edema or evidence of midline shift. The paranasal sinuses and mastoids are clear. The calvarium is intact. IMPRESSION: No acute intracranial abnormality.
--- NOTE | 2020-07-25 12:36 | RAD REPORT ---
EXAM DESCRIPTION: CTAbdomen Pelvis W Contrast - 07/25/2020 12:25 pm CLINICAL HISTORY: Abdominal pain. left sided abdominal pain COMPARISON: Abdomen Pelvis W Contrast dated 12/12/2019; Abdomen Pelvis W Contrast dated 01/02/2019 ; Abdomen Pelvis W Contrast dated 08/21/2016 TECHNIQUE: Biphasic CT imaging of the abdomen and pelvis was performed with 100 ml non-ionic IV cont rast. All CT scans are performed using dose optimization technique as appropriate and may include automated exposure control or mA/KV adjustment according to patient size. FINDINGS: The lung bases are clear. Numerous liver cysts are present. Mild fatty liver. No aggressive liver lesion or biliary dilatation seen. Cholecystectomy clips are present. Benign renal cysts are noted bilaterally including parapelvi c cysts. The spleen, pancreas, adrenal glands are normal. No bowel obstruction, free air, free fluid or abscess. Mild stool is present throughout the colon. Co lonic diverticula are present involving the descending colon with subtle reticulation of the adjacent fat. The appendix is normal. No evidence of significant lymphadenopathy. Moderate lumbar degenerative changes are present. IMPRESSION: An early diverticulitis is possible involving the distal descending colon in the left lo wer quadrant. Mild fatty liver with numerous benign liver cysts.
[2020-07-25 12:45] LABS: ALT/SGPT 35 U/L (12-78); AST/SGOT 22 U/L (15-37); Albumin 4.2 g/dL (3.4-5.0); Alkaline Phosphatase 94 U/L (45-117); BUN Blood Urea Nitrogen 12 mg/dL (7-18); Bicarbonate 28 mmol/L (21-32); Bilirubin Direct 0.2 mg/dL (0-0.2); Bilirubin Total 1.1 mg/dL (0.2-1.0); Glucose Level 90 mg/dL (74-106); Lipase 149 U/L (73-393); Potassium 4.1 mmol/L (3.5-5.1); Protein, Total 7.7 g/dL (6.4-8.2); Sodium Level 141 mmol/L (136-145); Troponin (Emerg Dept Use Only) < 0.02 ng/mL (0.0-0.045)
[2020-07-25 13:05] LABS: Blood Morphology Comment NOT SEEN (NOT SEEN); Platelet Estimate ADEQ; Platelets, Giant PRESENT
[2020-07-25] MEDS ORDERED: METOCLOPRAMIDE 10 MG/2mL INJ ONE (13:22)
[2020-07-25] MEDS ORDERED: NA CHLORIDE 0.9% 500 ML ONE (13:22)
--- NOTE | 2020-07-25 15:13 | ER ---
Nurse's Notes [facility] Name: Tracey Rodriguez Age: 64 yrs Sex: Female : 1955 Arrival Date: 07/25/2020 Time: 09:56 Bed 20 Private MD: Diagnosis: Acute Diverticulitis without Perforation Presentation: 07/25 10:54 Chief complaint: Patient states: LLQ pain and nausea x 2 weeks. Pt reports a HX of ss diverticulosis and IBS. Pt reports numbness to lower face that began 2-3 days ago. Pt states, "I don't have like stroke symptoms, but I read that B-12 or Calcium deficiency could cause this.". Coronavirus screen: Client denies travel out of the [place] in the last 14 days. Ebola Screen: Patient denies exposure to infectious person. Patient denies travel to an Ebola-affected area in the 21 days before illness onset. Initial Sepsis Screen: Does the patient meet any 2 criteria? No. Patient's initial sepsis screen is negative. Does the patient have a suspected source of infection? No. Patient's initial sepsis screen is negative. Risk Assessment: Do you want to hurt yourself or someone else? Patient reports no desire to harm self or others. Onset of symptoms was July 11, 2020. 10:54 Method Of Arrival: Ambulatory ss 10:54 Acuity: ANUJA 3 ss Historical: - Allergies: 10:57 anti-inflammatory (all); ss 10:57 Ciprofloxacin; ss 10:57 fluoroquinolones; ss 10:57 Levaquin; ss 10:57 Sulfa (Sulfonamide Antibiotics); ss - PMHx: 10:57 Diverticulitis; hiatal hernia; Hypoglycemic; Hypothyroidism; throat erosion; UTI; ibs; ss - PSHx: 10:57 Tubal ligation; Cholecystectomy; Carpal Tunnel Repair; ss - Immunization history:: Adult Immunizations not immunized. - Social history:: Smoking status: Patient denies any tobacco usage or history of. Screenin:44 Abuse screen: Denies threats or abuse. Denies injuries from another. Nutritional tr6 screening: No deficits noted. Tuberculosis screening: No symptoms or risk factors identified. Fall Risk None identified. Assessment: 11:40 General: Appears in no apparent distress. Behavior is calm, cooperative, appropriate tr6 for age. Pain: Complains of pain in pt c/o LLQ abdominal pain. pt reports that she has chronic diarrhea. +nausea, no vomiting. Neuro: No deficits noted. Cardiovascular: No deficits noted. Respiratory: No deficits noted. GI: Bowel sounds Abdomen is tender to palpation in LLQ tenderness. : No deficits noted. EENT: No deficits noted. Derm: No deficits noted. Musculoskeletal: No deficits noted. 12:15 Reassessment: pt transferred to CT via wheelchair. tr6 12:38 Reassessment: pt returned from CT. tr6 13:45 Reassessment: Patient and/or family updated on plan of care and expected duration. Pain tr6 level reassessed. pt reports that her headache has improved. 15:23 Reassessment: Patient and/or family updated on plan of care and expected duration. Pain tr6 level reassessed. Vital Signs: 10:54 BP 144 / 88; Pulse 77; Resp 16; Temp 97.5(TE); Pulse Ox 99% on R/A; Weight 83.91 kg; ss Height 5 ft. 3 in. (160.02 cm); Pain 0/10; 13:16 BP 124 / 79; Pulse 79; Resp 18; Pulse Ox 100% ; tr6 14:24 BP 124 / 82; Pulse 78; Resp 18; Pulse Ox 100% ; tr6 14:45 BP 128 / 86; Pulse 79; Resp 18; Pulse Ox 99% ; tr6 10:54 Body Mass Index 32.77 (83.91 kg, 160.02 cm) ED Course: 09:56 Patient arrived in ED. rg4 10:56 Triage completed. ss 10:57 Arm band placed on right wrist. ss 11:44 Patient has correct armband on for positive identification. Bed in low position. Call tr6 light in reach. 11:44 No provider procedures requiring assistance completed. tr6 11:55 Lavon Amor PA is PHCP. [facility] 11:55 Osvaldo Carpenter MD is Attending Physician. jmm 12:14 Inserted saline lock: 20 gauge in left antecubital area, using aseptic technique. tr6 ,using aseptic technique. by DOLORES Salazar Blood collected. 12:24 CT Head Brain wo Cont In Process Unspecified. EDMS 12:25 CT Abd/Pelvis - IV Contrast Only In Process Unspecified. EDMS 12:39 Basic Metabolic Panel Sent. tr6 12:39 CBC with Diff Sent. tr6 12:39 Hepatic Function Sent. tr6 12:39 Lipase Sent. tr6 12:39 Troponin (emerg Dept Use Only) Sent. tr6 14:25 IV discontinued, intact, bleeding controlled, No redness/swelling at site. Pressure tr6 dressing applied. 15:23 IV discontinued, intact, bleeding controlled, No redness/swelling at site. Pressure tr6 dressing applied. Administered Medications: 13:11 Drug: Reglan (metoCLOPramide) 10 mg Route: IVP; Site: left antecubital; tr6 13:34 Follow up: Response: No adverse reaction; Pain is decreased; Nausea is decreased tr6 13:12 Drug: NS 0.9% 500 ml Route: IV; Rate: bolus; Site: left antecubital; tr6 13:34 Follow up: Response: No adverse reaction; IV Intake: 500ml tr6 15:24 Follow up: Response: No adverse reaction; IV Intake: 500ml tr6 Intake: 13:34 IV: 500ml; Total: 500ml. tr6 15:24 IV: 500ml; Total: 1000ml. tr6 Outcome: 14:24 Discharged to home ambulatory. tr6 14:24 Condition: improved 14:24 Discharge instructions given to patient. 15:12 Discharge ordered by MD. aguilar 15:25 Discharged to home ambulatory. tr6 15:25 Condition: good 15:25 Discharge instructions given to patient, significant other, by AMANDA Doll 15:39 Patient left the ED. tr6 Signatures: Dispatcher [employer] EDMS Lavon Amor PA PA jmm Smirch, Shelby, RN RN ss Garcia, Rubi rg4 Ramnanan, Tiffany, RN RN tr6
--- NOTE | 2020-07-25 15:13 | EDPHYS ---
Physician Documentation [facility] Name: Tracey Rodriguez Age: 64 yrs Sex: Female : 1955 Arrival Date: 07/25/2020 Time: 09:56 Bed 20 Private MD: ED Physician Osvaldo Carpenter HPI: 07/25 12:08 This 64 yrs old Female presents to ER via Ambulatory with complaints of jmm Numbness Of Face, Abdominal Pain. 12:08 The patient presents with abdominal pain. Onset: The symptoms/episode began/occurred jmm gradually, 2 week(s) ago. The symptoms do not radiate. Associated signs and symptoms: Pertinent positives: diarrhea. The symptoms are described as achy. The patient has experienced a previous episode. This is a 64 year old female with a history of diverticulitis that presents to the ED with complaints of of 2 weeks of left sided abdominal pain, fatigue worsening over the past 3 to 4 days. Patient also complains of tingling to her lower jaw bilaterally. Patient is may be due to electrolyte/vitamin deficiency. Historical: - Allergies: 10:57 anti-inflammatory (all); ss 10:57 Ciprofloxacin; ss 10:57 fluoroquinolones; ss 10:57 Levaquin; ss 10:57 Sulfa (Sulfonamide Antibiotics); ss - PMHx: 10:57 Diverticulitis; hiatal hernia; Hypoglycemic; Hypothyroidism; throat erosion; UTI; ibs; ss - PSHx: 10:57 Tubal ligation; Cholecystectomy; Carpal Tunnel Repair; ss - Immunization history:: Adult Immunizations not immunized. - Social history:: Smoking status: Patient denies any tobacco usage or history of. ROS: 12:08 Constitutional: Negative for fever, chills, and weight loss, Cardiovascular: Negative jmm for chest pain, palpitations, and edema, Respiratory: Negative for shortness of breath, cough, wheezing, and pleuritic chest pain. 12:08 Abdomen/GI: Positive for abdominal pain, diarrhea. 12:08 Neuro: Positive for paresthesias. 12:08 All other systems are negative. Exam: 12:08 Constitutional: This is a well developed, well nourished patient who is awake, alert, jmm and in no acute distress. Head/Face: atraumatic. Eyes: EOMI, no conjunctival erythema appreciated Neck: Trachea midline, Supple Chest/axilla: Normal chest wall appearance and motion. Cardiovascular: Regular rate and rhythm. No edema appreciated Respiratory: Normal respirations, no respiratory distress appreciated 12:08 Back: Normal ROM Skin: General appearance color normal MS/ Extremity: Moves all extremities, no obvious deformities appreciated, no edema noted to the lower extremities Neuro: Awake and alert, normal gait Psych: Behavior is normal, Mood is normal, Patient is cooperative and pleasant 12:08 Abdomen/GI: Inspection: abdomen appears normal, Bowel sounds: normal, Palpation: soft, mild abdominal tenderness, in the left upper quadrant and left lower quadrant. 12:08 Neuro: Orientation: is normal, Mentation: is normal, Memory: is normal, Cranial nerves: Facial palsy and sensory deficits are absent. Cerebellar function: normal finger to nose testing, Motor: is normal, Gait: is steady. 12:08 Psych: Behavior/mood is pleasant, cooperative. Vital Signs: 10:54 BP 144 / 88; Pulse 77; Resp 16; Temp 97.5(TE); Pulse Ox 99% on R/A; Weight 83.91 kg; ss Height 5 ft. 3 in. (160.02 cm); Pain 0/10; 13:16 BP 124 / 79; Pulse 79; Resp 18; Pulse Ox 100% ; tr6 14:24 BP 124 / 82; Pulse 78; Resp 18; Pulse Ox 100% ; tr6 14:45 BP 128 / 86; Pulse 79; Resp 18; Pulse Ox 99% ; tr6 10:54 Body Mass Index 32.77 (83.91 kg, 160.02 cm) ss MDM: 11:59 Patient medically screened. [facility] 15:10 Data reviewed: vital signs, nurses notes. Counseling: I had a detailed discussion with jeff the patient and/or guardian regarding: the historical points, exam findings, and any diagnostic results supporting the discharge/admit diagnosis, lab results, radiology results, the need for outpatient follow up, to return to the emergency department if symptoms worsen or persist or if there are any questions or concerns that arise at home. ED course: Patient is alert and non toxic in appearance in the ED. Imaging studies concerning for diverticulitis. patient is otherwise given strict return precautions. patient understood and agrees with the plan of care. . 07/25 11:55 Order name: Urine Dipstick-Ancillary; Complete Time: 12:06 EDMS 04/28 11:56 Order name: Basic Metabolic Panel; Complete Time: 12:57 [facility] 07/25 11:56 Order name: CBC with Diff; Complete Time: 13:10 [facility] 07/25 11:56 Order name: Hepatic Function; Complete Time: 12:57 [facility] 07/25 11:56 Order name: Lipase; Complete Time: 12:57 [facility] 07/25 11:56 Order name: Troponin (emerg Dept Use Only); Complete Time: 12:57 [facility] 07/25 11:56 Order name: IV Saline Lock; Complete Time: 12:14 [facility] 07/25 11:56 Order name: Labs collected and sent; Complete Time: 12:14 [facility] 07/25 11:56 Order name: CT Head Brain wo Cont; Complete Time: 12:38 [facility] 07/25 12:07 Order name: CT Abd/Pelvis - IV Contrast Only; Complete Time: 12:38 [facility] 07/25 12:58 Order name: Manual Differential; Complete Time: 13:10 [facility] 07/25 14:50 Order name: CREATININE WHOLE BLOOD; Complete Time: 14:55 [facility] 07/25 11:56 Order name: EKG - Nurse/Tech; Complete Time: 13:01 [facility] Administered Medications: 13:11 Drug: Reglan (metoCLOPramide) 10 mg Route: IVP; Site: left antecubital; tr6 13:34 Follow up: Response: No adverse reaction; Pain is decreased; Nausea is decreased tr6 13:12 Drug: NS 0.9% 500 ml Route: IV; Rate: bolus; Site: left antecubital; tr6 13:34 Follow up: Response: No adverse reaction; IV Intake: 500ml tr6 15:24 Follow up: Response: No adverse reaction; IV Intake: 500ml tr6 Disposition: 07/26 06:15 Co-signature as Attending Physician, Osvaldo Carpenter MD I agree with the assessment and kdr plan of care. Disposition: 07/25/20 15:12 Discharged to Home. Impression: Acute Diverticulitis without Perforation. - Condition is Stable. - Discharge Instructions: Diverticulitis. - Prescriptions for Zofran ODT 4 mg Oral tablet,disintegrating - place 1 tablet by TRANSLINGUAL route every 4-6 hours; 20 tablet. Flagyl 500 mg Oral Tablet - take 1 tablet by ORAL route every 8 hours for 10 days; 30 tablet. Tramadol 50 mg Oral Tablet - take 1 tablet by ORAL route every 8 hours as needed; 12 tablet. Bactrim DS 800- 160 mg Oral Tablet - take 1 tablet by ORAL route every 12 hours for 10 days; 20 tablet. - Medication Reconciliation Form, Thank You Letter, Antibiotic Education, Prescription Opioid Use form. - Follow up: Private Physician; When: 2 - 3 days; Reason: Recheck today's complaints, Continuance of care, Re-evaluation by your physician. Signatures: Dispatcher [employer] EDMS Osvaldo Carpenter MD MD kdr Mickail, Joel, PA PA jmm Smirch, Shelby, DOLORES RN ss Megan Frank RN RN tr6 Corrections: (The following items were deleted from the chart) 07/25 15:39 15:12 07/25/2020 15:12 Discharged to Home. Impression: Acute Diverticulitis without tr6 Perforation. Condition is Stable. Forms are Medication Reconciliation Form, Thank You Letter, Antibiotic Education, Prescription Opioid Use. Follow up: Private Physician; When: 2 - 3 days; Reason: Recheck today's complaints, Continuance of care, Re-evaluation by your physician. jeff
[2020-07-25 15:57] VITALS: TEMP 97.5
[2020-07-25 16:01] VITALS: BP 128/86; O2SAT 99
== END 2020-07-25 15:39 | disposition home or self-care (01) ==
LOC: ER 09:54
DX: K57.32 Diverticulitis of large intestine without perforation or abscess without bleeding (principal); Z88.1 Allergy status to other antibiotic agents; Z88.2 Allergy status to sulfonamides; Z88.5 Allergy status to narcotic agent
CPT/HCPCS: 93005; 85025; 80048; 36415; 82565; 80076; 81003; 84484; 83690; 70450; 74177; 96374; 99284; Q9967; J2765; J7040

== ENCOUNTER 2020-08-15 10:21 | Emergency (ER) | payer OTHER ==
--- OUTSIDE RECORDS SUMMARY | 2020-08-15 10:28 | XMS REPORT | Continuity of Care Document ---
:1955 Author Organization [facility] t Address [address] [place] [address] Care Team Providers Name Role Phone Finn Attending Clinician [phone] SILVIO Attending Clinician Unavailable Fidel Mena Attending Clinician Ron Lundy Attending Clinician Palomo [...] 08:00: [place] NUMBNESS/ 00 LETHARGIC Active 07/23/2020 [facility] Diagnosis Active 2019-032020-03-09 Mem oria VISIT- ABD 2- 11:18:00 l PAIN CLINIC 00:00: [place] VISIT- ABD 00 PAIN Active 03/08/2020 [facility] ABD PAIN Diagnosis Active 2019-032020-01-11 M emoria 0-14 18:59:00 l ABD PAIN 00:00: José Miguel n 00 Active 01/11/2020 [place] F/U AND Diagnosis Active 2018-07-28 Me moria 2ND - 14:19:00 l OPINION F/U AND 00:00: José Miguel samaniego 2ND 00 OPINION Active 07/20/2018 [facility] KNEE PAIN Diagnosis Active 2017-06-06 Memoria 3-09 08:32:00 l KNEE 00:00: [place] PAIN 00 Active 06/05/2017 [facility] [place] BDDC-NAUSE Diagnosis Active 2016-12-07 Memoria A, EARLY 10-30 15:15:00 l SATIETY 00:00: [place] BDDC-NAUSE 00 A, EARLY SATIETY Active 10/30/2016 [facility] STOMACH Diagnosis Active 2015-032016-03-17 Co moria PAIN 04-27 13:47:00 l STOMACH 00:00: [place] PAIN 00 Active 02/26/2016 [facility] WEAKNES Diagnosis Active 2015-09-16 Me rivera AND CLOTILDE 09-15 17:12:00 l VISION WEAKNES 00:00: Jerilyn 00 VISION Active 09/16/2015 [place] BDDC - NEW Diagnosis Active 2014-032015-03-14 Memoria PT CONSULT -16 14:16:00 l BDDC - 00:00: [place] NEW PT 00 CONSULT Active 03/14/2015 [facility] BDDC/ Diagnosis Active 2014-032015-04-30 Mem oria Z12.11 2-16 11:17:00 l SCREENING BDDC/ 00:00: José Miguel samaniego FOR Z12.11 00 MALIGNANT SCREENING ALICIA FOR MALIGNANT ALICIA Active 03/14/2015 [facility] PAIN IN Diagnosis Active 2014-032015-04-21 [place] THE 05-06 15:39:00 l ABDOMEN; PAIN IN 00:00: Jada nn UPPER AND THE 00 LOWER STO ABDOMEN; UPPER AND LOWER STO Active 03/05/2015 [facility] Screening Problem Active 2020-07-25 Me rivera mammograph 08-23 22:31:30 l y 00:00: [place] (procedure Screening 00 ) mammograph y (procedure ) Active 08/23/2014 Problem 07/25/2020 Data migrated from [employer] on 10/04/14. Medical Group,[facility], [place],M H OPID [place], JESSICA Cody,M H [place] Vitamin D Problem Active 2020-07-25 Me moria deficiency 08-23 22:31:30 l (disorder) Vitamin 00:00: Her sellers D 00 deficiency (disorder) Active 08/23/2014 Problem 07/25/2020 Data migrated from [employer] on 10/04/14. Medical Group,[facility], Clare[place] OPID [place], JESSICA Cody, H [place] VITAMIN D Condition Active 2014-08-23 Memoria DEFICIENCY 08-23 16:24:00 l VITAMIN 00:00: Mart D 00 DEFICIENCY Active 08/23/2014 Condition 5 [facility] DIARRHEA Condition Active 2014-08-23 M emoria 08-23 16:24:00 l DIARRHEA 00:00: José Miguel n 00 Active 08/23/2014 Condition 5 [facility] MAMMOGRAM Condition Active 2014-08-23 Memoria YEARLY 08-23 16:24:00 l SCREENING 00:00: [place] MAMMOGRAM 00 YEARLY SCREENING Active 08/23/2014 Condition 5 [facility] Gastritis Problem Active 2020-07-25 Me moria (disorder) 08-22 22:31:30 l 00:00: [place] Gastritis 00 (disorder) Active 08/22/2014 Problem 07/25/2020 Data migrated from [employer] on 10/04/14. Medical Group,[facility], [place],Ryan OPID [place], JESSICA Cody, H [place] Multiple Problem Active 2020-07-25 Mem oria joint pain 08-22 22:31:30 l (finding) Multiple 00:00: Her sellers joint pain 00 (finding) Active 08/22/2014 Problem 07/25/2020 Data migrated from [employer] on 10/04/14. [facility], [place],M H OPID [place], JESSICA Cody,M H [place] Muscle Problem Active 2020-07-25 Memor ia pain 08-22 22:31:30 l (finding) Muscle 00:00: Jada nn pain 00 (finding) Active 08/22/2014 Problem 07/25/2020 Data migrated from [employer] on 10/04/14. Medical Group,[facility], [place],M H OPID [place], JESSICA Nevarezmond,M H [place] Nausea Problem Active 2020-07-25 Memor ia (finding) 08-22 22:31:30 l Nausea 00:00: [place] (finding) 00 Active 08/22/2014 Problem 07/25/2020 Data migrated from [employer] on 10/04/14. Medical Group,[facility], [place],M H OPID [place], JESSICA Cody,M H [place] MYALGIA Condition Active 2014-08-23 Me moria 08-22 16:24:00 l MYALGIA 00:00: [place] 00 Active 08/22/2014 Condition 5 [facility] PAIN IN Condition Active 2014-08-23 Me moria JOINT, 08-22 16:24:00 l MULTIPLE PAIN IN 00:00: Jada nn SITES JOINT, 00 MULTIPLE SITES Active 08/22/2014 Condition 5 [facility] GASTRITIS Condition Active 2014-08-23 Memoria 08-22 16:24:00 l 00:00: [place] GASTRITIS 00 Active 08/22/2014 Condition 5 [facility] Enterobias Problem Active 2020-07-25 M emoria is 08-08 22:31:30 l (disorder) 00:00: José Miguel n Enterobias 00 is (disorder) Active 08/08/2014 Problem 07/25/2020 Data migrated from [employer] on 10/04/14. Medical Group,[facility], [place],M H OPID [place], JESSICA Cody,M H [place] Numbness Problem Active 2020-07-25 Mem oria (finding) 08-08 22:31:30 l Numbness 00:00: José Miguel n (finding) 00 Active 08/08/2014 Problem 07/25/2020 Data migrated from [employer] on 10/04/14. Medical Group,[facility], [place],M H OPID [place], JESSICA Cody,M H [place] Reactive Problem Active 2020-07-25 Mem oria hypoglycem 08-08 22:31:30 l ia Reactive 00:00: José Miguel n (disorder) hypoglycem 00 ia (disorder) Active 08/08/2014 Problem 07/25/2020 Data migrated from [facility] on 10/04/14. Medical Group,[facility], [place],M H OPID [place], JESSICA Cody,M H [place] HYPOGLYCEM Condition Active 2014-08-23 Memoria IA, 08-08 16:24:00 l REACTIVE 00:00: [place] HYPOGLYCEM 00 IA, REACTIVE Active 08/08/2014 Condition 5 [facility] ROUTINE Condition Active 2014-08-23 Me moria GENERAL 08-08 16:24:00 l MEDICAL ROUTINE 00:00: José Miguel n EXAMINATIO GENERAL 00 N AT A [facility] EXAMINATIO CARE N AT A [facility] Active 08/08/2014 Condition 5 [facility] NUMBNESS Condition Active 2014-08-23 M emoria 08-08 16:24:00 l NUMBNESS 00:00: José Miugel n 00 Active 08/08/2014 Condition 5 Medical [...] Memoria BILATERAL 04-15 16:24:00 l HIP 00:00: [place] PAIN, 00 BILATERAL Active 02/13/2014 Condition 5 [facility] NAUSEA Diagnosis Active 2013-11-30 Mem oria 9-03 13:51:00 l NAUSEA 00:00: [place] 00 Active 11/30/2013 [place] ABDOMINAL Condition Active 2013-11-07 Memoria PAIN, LEFT 8- 14:05:00 l UPPER 00:00: [place] QUADRANT ABDOMINAL 00 PAIN, LEFT UPPER QUADRANT Active 11/07/2013 Condition 4 [facility] ACID Condition Active 2014-08-23 Mem oria REFLUX - 16:24:00 l DISEASE ACID 00:00: [place] REFLUX 00 DISEASE Active 10/05/2013 Condition 5 [facility] MUSCLE Condition Active 2013-10-05 Mem oria STRAIN 10-05 14:17:34 l MUSCLE 00:00: [place] STRAIN 00 Active 10/05/2013 Condition 4 [facility] ROTATOR Condition Active 2014-08-23 Me moria CUFF 7 16:24:00 l (CAPSULE) ROTATOR 00:00: Herm rut SPRAIN CUFF 00 (CAPSULE) SPRAIN Active 10/05/2013 Condition 5 [facility] OBESITY Condition Active 2014-08-23 Me moria 6-05 16:24:00 l OBESITY 00:00: [place] 00 Active 09/01/2013 Condition 5 [facility] LONG-TERM Condition Active 2014-08-23 Memoria (CURRENT) 2-17 16:24:00 l USE OF 00:00: [place] OTHER LONG-TERM 00 MEDICATION (CURRENT) S USE OF OTHER MEDICATION S Active 05/16/2013 Condition 5 [facility] FATIGUE Condition Active 2014-08-23 Me moria 2-01 16:24:00 l FATIGUE 00:00: [place] 00 Active 04/30/2012 Condition 5 [facility] FLAT FOOT Condition Active 2014-08-23 Memoria 2-01 16:24:00 l FLAT 00:00: [place] FOOT 00 Active 04/30/2012 Condition 5 [facility] HAIR LOSS Condition Active 2014-08-23 Memoria 2-01 16:24:00 l HAIR 00:00: [place] LOSS 00 Active 04/30/2012 Condition 5 [facility] BACK PAIN Condition Active 2014-08-23 Memoria 9-10 16:24:00 l BACK 00:00: [place] PAIN 00 Active 12/08/2011 Condition 5 [facility] DEFICIENCY Condition Active 2014-08-23 Memoria , VITAMIN - 16:24:00 l D NOS 00:00: [place] DEFICIENCY 00 , VITAMIN D NOS Active 12/08/2011 Condition 5 [facility] HYPOTHYROI Condition Active 2014-08-23 Memoria DISM - 16:24:00 l 00:00: [place] HYPOTHYROI 00 DISM Active 12/08/2011 Condition 5 [facility] HEADACHE Condition Inactiv 2014-08-23 Memoria e 16:24:00 l HEADACHE José Miguel n Inactive Condition 08/23/2014 [facility] Hypoglycem Problem Resolve 2020-07-25 Memoria ia d 22:31:30 l (disorder) José Miguel n Hypoglycem ia (disorder) Resolved Problem 07/25/2020 Medical Group,[facility], [facility] [facility] [place], JESSICA Cody,M H [place] Disease Problem Resolve 2020-07-25 Mem oria caused by d 22:31:30 l 2019-nCoV Disease Herm rut caused by 2019-nCoV Resolved Problem 07/25/2020 [facility], [place] Obesity Problem Active 2020-07-25 Marvel fauzia (disorder) 22:31:30 l Obesity [place] (disorder) Active Problem 07/25/2020 Medical Group,[facility], Clare[place] H OPID [place], JESSICA Cody,M H [place] Autoimmune Problem Active 2020-07-25 M emoria disease 22:31:30 l (disorder) José Miguel n Autoimmune disease (disorder) Active Problem 07/25/2020 Medical Group,[facility], [place] ASTHMA Condition Active 2014-08-23 Mem oria 16:24:00 l ASTHMA [place] Active Condition 08/23/2014 [facility] Group HYPERCHOLE Condition Active 2014-08-23 Memoria STEROLEMIA 16:24:00 l [place] HYPERCHOLE STEROLEMIA Active Condition 08/23/2014 [facility] FAMILY Condition Active 2014-08-23 Mem oria HISTORY OF 16:24:00 l ASTHMA FAMILY [place] HISTORY OF ASTHMA Active Condition 08/23/2014 [facility] FH LUNG Condition Active 2014-08-23 Me moria CANCER 16:24:00 l FH LUNG [place] CANCER Active Condition 08/23/2014 Medical [facility] FH Condition Active 2014-08-23 Mem oria DEPRESSION 16:24:00 l FH [place] DEPRESSION Active Condition 08/23/2014 [facility] FH Condition Active 2014-08-23 Mem oria DIABETES - 16:24:00 l DM FH [place] DIABETES - DM Active Condition 08/23/2014 [facility] HEART Condition Active 2014-08-23 M emoria DISEASE 16:24:00 l FH HEART José Miguel n DISEASE Active Condition 08/23/2014 [facility] Group Diarrhea Problem Resolve 2020-07-25 2020-07-25 Memoria (finding) d - 22:31:30 22:31:30 l Diarrhea 00:00: José Miguel n (finding) 00 Resolved 08/23/2014 Problem 07/25/2020 Data migrated from [employer] on 10/04/14. Medical [facility],Ryan Durham,Ryan Rivera Sinusitis Problem Resolve 2020-07-25 2020-07-25 Memoria (disorder) d 9-10 22:31:30 22:31:30 l 00:00: [place] Sinusitis 00 (disorder) Resolved 12/08/2011 Problem 07/25/2020 Data migrated from [employer] on 10/14/14.Da ta migrated from [employer] on 10/13/14. Medical [facility],Ryan Durham,Ryan Rivera History of Past Illness Condition Condition Condition Status Onset Resolution Last Treating Co mments Source Name Details Category Date Date Treatment Clinician Date Urinary Problem 2019-032020-01-13 2020-01-13 Memoria tract 0-14 22:40:53 22:40:53 l infection, Urinary 17:00: Her sellers site not tract 00 specified infection, site not specified 01/11/2020 01/13/2020 [place] Acute Problem 2019-032020-01-13 2020-01-13 M emoria gastritis 0-14 22:40:53 22:40:53 l without Acute 17:00: [place] bleeding gastritis 00 without bleeding 0 01/13/2020 [place] Unspecifie Problem 2019-032020-01-13 2020-01-13 Memoria d 0-14 22:40:53 22:40:53 l abdominal 17:00: [place] pain Unspecifie 00 d abdominal pain 01/11/2020 01/13/2020 [place] Acute Problem 2019-032020-01-13 2020-01-13 M emoria bronchitis 0-14 22:40:53 22:40:53 l , Acute 17:00: [place] unspecifie bronchitis 00 d , unspecifie d 01/11/2020 01/13/2020 [place] Acute Problem 2017-032018-07-25 2018-07-25 M emoria sinusitis, 0-16 14:53:54 14:53:54 l unspecifie Acute 04:40: Jada nn d sinusitis, 38 unspecifie d 01/12/2018 07/25/2018 OPID [place] Discharge Problem 2015-09-19 2015-09-19 Memoria Diagnosis: 6-19 00:37:41 00:37:41 l Adult 05:00: [place] hypothyroi Discharge 00 dism Diagnosis: Adult hypothyroi dism 09/16/2015 09/19/2015 [place] BREAST Condition Inactiv 2013-032014-08-23 2014-08-23 Memoria PAIN, e 1-17 16:24:00 16:24:00 l BILATERAL BREAST 00:00: Jada nn PAIN, 00 BILATERAL Inactive 02/13/2014 Condition 5 [facility] ABDOMINAL Condition Inactiv 2014-08-23 2014-08-23 Memoria PAIN, e - 16:24:00 16:24:00 l RIGHT 00:00: [place] UPPER ABDOMINAL 00 QUADRANT PAIN, RIGHT UPPER QUADRANT Inactive 11/07/2013 Condition 5 [facility] NAUSEA Condition Inactiv 2014-08-23 2014-08-23 Memoria e 10-05 16:24:00 16:24:00 l NAUSEA 00:00: [place] 00 Inactive 10/05/2013 Condition 5 [facility] SACROILIIT Condition Inactiv 2014-08-23 2014-08-23 Memoria IS e 6-05 16:24:00 16:24:00 l 00:00: [place] SACROILIIT 00 IS Inactive 09/01/2013 Condition 5 [facility] DRY SOCKET Condition Inactiv 2014-08-23 2014-08-23 Memoria e 12-07 16:24:00 16:24:00 l DRY 00:00: [place] SOCKET 00 Inactive 12/07/2012 Condition 5 [facility] HEARTBURN Condition Inactiv 2014-08-23 2014-08-23 Memoria e 12-03 16:24:00 16:24:00 l 00:00: [place] HEARTBURN 00 Inactive 12/03/2012 Condition 5 [facility] INGROWN Condition Inactiv 2014-08-23 2014-08-23 Memoria NAIL e 2- 16:24:00 16:24:00 l INGROWN 00:00: [place] NAIL 00 Inactive 04/30/2012 Condition 5 [facility] HYPERGLYCE Condition Inactiv 2014-08-23 2014-08-23 Memoria FENG e 12-07 16:24:00 16:24:00 l 00:00: [place] HYPERGLYCE 00 FENG Inactive 12/08/2011 Condition 5 [facility] Discharge Problem 2013-12-03 2013-12-03 Mak Diagnosis: 9- 05:11:13 05:11:13 l Biliary 05:00: [place] colic Discharge 00 Diagnosis: Biliary colic 11/30/2013 12/03/2013 [place] Allergies, Adverse Reactions, Alerts Allergy Allergy Status Severity Reaction(s) Onset Inactive Treating Comm ents Source Name Type Date Date Clinician ciproflo DA Active SV 2017-03 [facility] xacin 0-01 [place] 00:00: d 00 [facility] levoflox DA Active SV 2017-03 [facility] acin 0-01 [place] 00:00: d 00 [facility] ANTI DA Active U 2017-03 [facility] INFLAMMA 0-01 [place] TORY PO 00:00: d [facility] ANTI-INF ANTI-INF Active Memori a LAMMATOR LAMMATOR 9-10 l IES IES 00:00: [place] 00 LEVAQUIN LEVAQUIN Active Memori a 9-10 l 00:00: [place] 00 BACTRIM BACTRIM Active Memoria 9-10 l 00:00: [place] 00 ciproflo ciproflo Active Memori a xacin xacin l [place] Levaquin Levaquin Active Memori a l [place] Food Food Active Memoria Iodine Iodine l [place] NSAIDs NSAIDs Active Memoria l [place] Social History Social Habit Start Date Stop Date Quantity Comments Source Social History 2017-07-02 2017-07-02 [facility] 19:52:36 19:52:36 Smoking Status Start Date Stop Date Source Social History [facility] Medications Ordered Filled Start Stop Current Ordering Indication Dosage Frequency Signature Comments Components Source Medication Medication Date Date Medication? Clinician (SIG) Name Name Ondansetron 2019-03 Yes 4 mg = 1 Me moria 4 MG 2-11 tab, PO, l Disintegrat 18:11: Q6H, PRN He rmann ing Tablet 00 Nausea & Vomiting, # 60 tab, 0 Refill(s), Pharmacy: [facility] #[id number], 160.02, cm, 03/09/20 11:28:00 [employer], Height, 86.364, kg, 03/09/20 11:28:00 [employer], Weight Famotidine 2019-03 Yes 40 mg = 1 Me moria 40 MG Oral 0-15 tab, PO, l Tablet 02:09: Daily, Margie Cevallos [Pepcid] 00 30 tab, 0 Refill(s) pantoprazol 2019-03 Yes 40 mg = 1 M emoria e 40 MG 0-15 tab, PO, l Enteric 02:09: Daily, Margie Valdez n Coated 00 30 tab, 0 Tablet Refill(s) [Protonix] Sucralfate 2019-03 Yes 1 gm = 10 Me moria 100 MG/ML 0-15 ml, PO, l Oral 02:09: Before [place] Suspension 00 Meals & Bedtime, # 200 [...] tab, PO, l tablet 02:08: Q6H, PRN [place] 00 Nausea, # 15 tab, 0 Refill(s) [...] hydroxide/M 0-14 (aluminum l g 23:35: hydroxide- [place] hydroxide/s 00 magnesium imethicone hyd-simeth icone 200-200-20 mg/5ml 30 ml ud GINETTE) Xylocaine 2019-03 No Notes: Memori a Viscous 2% 0-14 (Same as: l mucous 23:35: Xylocaine) Jada nn membrane 00 solution Saline 2019-03 No Notes: Memoria Flush 0.9% 0-14 (Same as: l 23:28: BD [place] 00 Posiflush) Sodium 2019-03 No 1,000 mL, Memori a Chloride 0-14 1000 l 0.9% 23:28: ml/hr, Mart (Bolus) IV 00 Infuse Over: 1 hr, Route: IV, 1,000, Drug form: INJ, ONCE, Priority: STAT, Dosing Weight 89 kg, Start date: 01/11/20 18:28:00 CDT, Stop date: 01/11/20 18:28:00 CDT, 0 Morphine 2019-03 No Notes: Memoria 0-14 (Same l 23:28: as:MORPhin [place] 00 e Sulfate) Ondansetron 2019-03 No Notes: [...] cap, 0 oral Refill(s), capsule Pharmacy: (Macrobid) [facility] #[id number] fluconazole Yes See Memori a 150 mg oral 6-07 Instructio l tablet 14:07: ns, 1 tab José Miguel n 00 PO ONCE a week, # 2 tab, 0 Refill(s), Pharmacy: [facility] [id number] ciclopirox Yes 1 appl, Marvel fauzia 7.7 MG/ML 6-07 TOP, BID, l Topical 14:07: X 28 day, Jada nn Cream 00 # 90 gm, 0 Refill(s), Pharmacy: [facility] [id number] rifaximin Yes 550 mg = 1 Me moria 550 MG Oral 5-01 tab, PO, l Tablet 21:43: TID, # 42 José Miguel n [XIFAXAN] 00 tab, 0 Refill(s), Pharmacy: [facility] pantoprazol 2018- Yes 40 mg, PO, Memoria e 5-01 Daily, # l 18:57: 30 tab, 0 [place] 00 Refill(s) Hyoscyamine 2018- Yes 0.125 mg = Memoria Sulfate 3-20 1 tab, PO, l 0.125 MG 21:36: QID, PRN Jada nn Disintegrat 00 Spasm, # ing Tablet 40 tab, 1 [Nulev] Refill(s), Pharmacy: [facility] Sulfamethox Yes 1 tab, PO, Memoria azole 800 3-20 BID, X 7 l MG / 21:36: day, # 14 [place] Trimethopri 00 tab, 0 m 160 MG Refill(s), Oral Tablet Pharmacy: [Bactrim] [facility] clonazePAM Yes 0.5 mg = 1 M emoria 0.5 mg oral 3-20 tab, PO, l tablet 21:36: Daily, PRN Jada nn 00 Anxiety, # 30 tab, 1 Refill(s) Metronidazo Yes 500 mg = 1 Memoria le 500 MG 3-18 tab, PO, l Oral Tablet 19:12: Q8H, X 10 H ermann [Flagyl] 00 day, # 30 tab, 0 Refill(s), Pharmacy: [place] [address] Amoxicillin Yes 875 mg = 1 Memoria 875 MG / 3-18 tab, PO, l Clavulanate 19:12: Q12H, X 10 [place] 125 MG Oral 00 day, # 20 Tablet tab, 0 [Augmentin Refill(s), 875-mg] Pharmacy: [place] [address] Nystatin 2017-03 No 1,000,000 Marvel fauzia [id number] UNT 0-15 unit = 2 l Oral Tablet 13:43: tab, PO, He rmann 00 BID, X 30 day, # 120 tab, 0 Refill(s), Pharmacy: [facility] sucralfate 2017-03 Yes 1 gm = 1 Mem oria 1 g oral 0-11 tab, PO, l tablet 19:23: QID, # 120 Jada nn 00 tab, 0 Refill(s), Pharmacy: [facility] [place] [address] benzonatate 2017-03 No 100 mg = 1 Memoria 100 MG Oral 0-09 cap, PO, l Capsule 20:31: TID, PRN José Miguel n [Tessalon 00 as needed Perles] for cough, X 7 day, # 21 cap, 0 Refill(s), Pharmacy: [facility] [place] [address] Azithromyci 2017-03 No See Memori a n 5 Day 0-09 Instructio l Dose Pack 20:26: ns, Take 2 He rmann 250 mg oral 00 tablets by tablet mouth the first day then 1 tablet by mouth days 2-5., X 5 day, # 6 tab, 0 Refill(s), Pharmacy: [facility] [place] [address] doxycycline 2017-03 Yes 100 mg = 1 Memoria hyclate 100 0-09 tab, PO, l MG Oral 20:13: BID, 0 [place] Tablet 00 Refill(s) clonazePAM 2017-03 No 0.5 [...] 1 Refill(s), Pharmacy: [facility] [place] [address] pregabalin Yes 50 mg = 1 Me moria 50 MG Oral 4-05 cap, PO, l Capsule 20:17: TID, # 90 Jada nn [Lyrica] 00 cap, 0 Refill(s) valACYclovi No 1 gm = 1 Me moria r 1 g oral 4-02 tab, PO, l tablet 18:18: Q8H, X 7 [place] 00 day, # 21 tab, 1 Refill(s), Pharmacy: [facility] [place] [address] valACYclovi No 1 gm = 1 Me moria r 1 g oral 3-13 tab, PO, l tablet 19:40: Q8H, X 7 [place] 00 day, # 21 tab, 1 Refill(s), Pharmacy: [facility] [place] [address] polyethylen No 17 gm, PO, Memoria e glycol 3-13 Daily, X l 3350 oral 19:40: 31 day, # Her sellers powder for 00 527 gm, 1 reconstitut Refill(s), ion Pharmacy: [facility] [address] benzonatate Yes 100 mg = 1 Memoria 100 mg oral 02 cap, PO, l capsule 20:29: TID, do [place] 00 not crush or chew, X 10 day, # 30 cap, 0 Refill(s), Pharmacy: [facility] [id number] Codeine Yes 5 mL, PO, Memor ia Phosphate 2 -02 Q12H, PRN l MG/ML / 20:29: cough, X José Miguel n Guaifenesin 00 10 day, # 20 MG/ML 100 mL, 0 Oral Refill(s) Solution [Cheratussi n] Fluticasone Yes 1 spray, Me moria propionate 03-31 NASAL, l 0.05 20:19: BID, # 16 Mart MG/ACTUAT 00 gm, 2 Metered Refill(s), Dose Nasal Pharmacy: [facility] [id number] Azithromyci Yes See Memori a n 5 Day 02 Instructio l Dose Pack 20:19: ns, Take 2 He rmann 250 mg oral 00 tablets by tablet mouth the first day then 1 tablet by mouth days 2-5., X 5 day, # 6 tab, 0 Refill(s), Pharmacy: [facility] [id number] clonazePAM 2016-03 Yes 0.5 mg = 1 M emoria 0.5 mg oral 1-27 tab, PO, l tablet, 20:26: BID, # 60 Jada nn disintegrat 00 tab, 1 ing Refill(s) EnteraGam 2015-03 Yes EnteraGam, Me moria 2-14 See l 21:03: Instructio [place] 00 ns, Samples given in clinic on 03/12/16. Lot [id number] exp date 10/15, # 1 box, Refill(s) 0 pantoprazol 2015-03 Yes 40 mg = 1 M emoria e 40 MG 2-14 tab, PO, l Enteric 19:47: Daily, 0 José Miguel n Coated 00 Refill(s) Tablet [Protonix] Levothyroxi Yes 25 Memori a ne Sodium 6-19 microgram l 0.025 MG 23:57: = 1 tab, Jada nn Oral Tablet 00 PO, Daily, [Synthroid] # 14 tab, 0 Refill(s) Sodium No 1,000 mL, Memori a Chloride -19 1,000 l 0.154 22:33: ml/hr, Mart MEQ/ML 00 Infuse Injectable Over: 1 Solution [...] 00 tab, 1 Tablet Refill(s), [Levsin] Pharmacy: [email or web address] Ondansetron 2014-03 Yes 8 mg = 1 Me moria 8 MG 2-17 tab, PO, l Disintegrat 21:16: TID, PRN He rmann ing Tablet 00 Nausea and [Zofran] Vomiting, Dissolve tab under tongue, X 7 day, # 21 tab, 1 Refill(s), Pharmacy: [facility] GoLYTELY 2014-03 Yes 240 mL, Memori a oral powder 2-16 PO, l for 21:56: Q10Min, # Mart reconstitut 00 1 ea, 0 ion Refill(s), Pharmacy: [facility] Flagyl 2015-1 Yes 500 mg = 1 Memor ia 2-16 tab, PO, l 20:40: BID, # 14 Mart 00 tab, 0 Refill(s) THYROID Yes Memoria COMPOUND 5-27 l 16:24: [place] 00 VITAMIN D Yes 1 capsule Mem oria (ERGOCALCIF 5-27 weekly x l YASH) [id number] 00:00: 12 weeks He rmann UNIT CAPS 00 OMEPRAZOLE Yes Take one Mem oria 20 MG CPDR 5-26 capsule by l 00:00: mouth Mart 00 daily ONDANSETRON Yes 1 tablet Me moria HCL 4 MG 5-26 every 8 l TABS 00:00: hours as [place] 00 needed for nausea/vom iting QSYMIA Yes 1 po qd Memoria 3.75-23 MG 5-12 l [id number] 00:00: [place] 00 CYCLOBENZAP No 1/2-1 po Me moria RINE HCL 10 1-08 TID as l MG TABS 00:00: needed for Herm rut 00 spasms PROMETHAZIN 2013-03 No 1 SUPP AL M emoria E HCL 25 MG 2-13 Q 4 TO 6 l SUPP 00:00: HRS PRN [place] 00 N/V. TRAMADOL 2013-03 Yes 1 tablet Memor ia HCL 50 MG 1-17 every 12 l TABS 00:00: hours as [place] 00 needed for pain GABAPENTIN 2013-03 No 1 capsule Me moria 100 MG CAPS 1-17 three l 00:00: times a [place] 00 day TRAMADOL 2013-03 No 1 tablet [facility] HCL 50 MG 1-17 every 12 l TABS 00:00: hours as [place] 00 needed for pain TRAMADOL 2013-03 No 1 tablet [facility] HCL 50 MG 1-17 every 12 l TABS 00:00: hours as [place] 00 needed for pain Promethazin Yes 12.5 [...] 00 0 5 MG Oral Refill(s) Tablet [Lilly 5/325] Phenergan No Notes: Do [facility] [...] as l 00:00: needed for pain MELOXICAM 2014-0 No 1 tablet [facility] fauzia 7.5 MG TABS 7-09 daily as l 00:00: needed for pain OMEPRAZOLE No Take one [facility] 20 MG CPDR 7-09 capsule by l 00:00: mouth daily PHENTERMINE 0 No 1 tablet [facility] HCL 37.5 MG 6-05 in the l TABS 00:00: morning PHENTERMINE 0 No 1 tablet [facility] HCL 37.5 MG 6-05 in the l TABS 00:00: morning PHENTERMINE No 1 tablet [facility] HCL 37.5 MG 6-05 in the l TABS 00:00: morning PHENTERMINE No 1 tablet [facility] HCL 37.5 MG 6-05 in the l TABS 00:00: morning CARAFATE 1 0 No 10 mL QID [facility] GM/10ML 9-10 l SUSP 00:00: CARAFATE 1 0 No 10 mL QID [facility] GM/10ML 9-10 l SUSP 00:00: ZEGERID 0 No 1 po qd [facility] 40-1680 MG 9-06 l PACK 00:00: ALIGN 0 No one daily [facility] 9-06 l 00:00: ZEGERID 2012-0 No 1 po qd [facility] 40-1680 MG 9-06 l PACK 00:00: GLUMETZA 0 Yes 1 po qd [facility] a 500 MG 1-15 l [id number] 00:00: NULEV 0.125 0 No 1 po q [facility] fauzia MG TBDP 9-18 8-12 prn l 00:00: ZITHROMAX 0 No Take as [facility] Z-MADHU 250 9-10 directed l MG TABS 00:00: Vital Signs Vital Name Observation Time Observation Value Comments Source Systolic (mm Hg) 2020-03-09 17:28:00 [facility] [place] Diastolic (mm Hg) 2020-03-09 17:28:00 [facility] [place] Heart Rate 2020-03-09 17:28:00 [facility] 2020-03-09 17:28:00 160.02 cm [facility] Weight 2020-03-09 17:28:00 [facility] BMI Calculated 2020-03-09 17:28:00 [facility] [place] Systolic (mm Hg) 2020-01-12 02:03:00 [facility] [place] Diastolic (mm Hg) 2020-01-12 02:03:00 [facility] [place] Respitory Rate 2020-01-12 02:03:00 [facility] [place] Heart Rate 2020-01-12 02:03:00 [facility] [place] Temperature Oral (F) 2020-01-12 02:03:00 98.6 F [facility] Height 2020-01-11 22:44:00 160.02 cm [facility] BMI Calculated 2020-01-11 22:44:00 [facility] Weight 2020-01-11 22:44:00 [facility] Systolic (mm Hg) 2020-01-11 22:44:00 [facility] [place] Diastolic (mm Hg) 2020-01-11 22:44:00 [facility] [place] Heart Rate 2020-01-11 22:44:00 [facility] Respitory Rate 2020-01-11 22:44:00 [facility] [place] Temperature Oral (F) 2020-01-11 22:44:00 98.8 F [facility] Systolic (mm Hg) 2018-12-31 15:55:00 [facility] [place] Diastolic (mm Hg) 2018-12-31 15:55:00 [facility] [place] Heart Rate 2018-12-31 15:55:00 [facility] Temperature Oral (F) 2018-12-31 15:55:00 98.9 F [facility] [place] Height 2018-12-31 15:55:00 160.02 cm [facility] Weight 2018-12-31 15:55:00 [facility] BMI Calculated 2018-12-31 15:55:00 [facility] [place] BMI Calculated 2018-09-22 20:52:00 [facility] [place] Height 2018-09-22 20:52:00 160.02 cm [facility] [place] Weight 2018-09-22 20:52:00 [facility] [place] Systolic (mm Hg) 2018-09-22 20:52:00 [facility] [place] Diastolic (mm Hg) 2018-09-22 20:52:00 [facility] [place] Heart Rate 2018-09-22 20:52:00 [facility] [place] Temperature Oral (F) 2018-09-22 20:52:00 98.3 F [facility] [place] Systolic (mm Hg) 2018-09-03 13:41:00 [facility] [place] Diastolic (mm Hg) 2018-09-03 13:41:00 [facility] [place] Temperature Oral (F) 2018-09-03 13:41:00 98.7 F [facility] [place] Heart Rate 2018-09-03 13:41:00 [facility] [place] Height 2018-09-03 13:41:00 160.02 cm [facility] BMI Calculated 2018-09-03 13:41:00 [facility] Weight 2018-09-03 13:41:00 [facility] [place] Height 2018-07-28 18:46:00 160.02 cm [facility] [place] Weight 2018-07-28 18:46:00 [facility] BMI Calculated 2018-07-28 18:46:00 [facility] [place] Respitory Rate 2018-07-28 18:46:00 [facility] [place] Heart Rate 2018-07-28 18:46:00 [facility] [place] Systolic (mm Hg) 2018-07-28 18:46:00 [facility] [place] Diastolic (mm Hg) 2018-07-28 18:46:00 [facility] [place] Weight 2018-06-14 18:55:00 [facility] BMI Calculated 2018-06-14 18:55:00 [facility] [place] Height 2018-06-14 18:55:00 160.02 cm [facility] Systolic (mm Hg) 2018-06-14 18:55:00 [facility] [place] Diastolic (mm Hg) 2018-06-14 18:55:00 [facility] [place] Temperature Oral (F) 2018-06-14 18:55:00 97.7 F [facility] Heart Rate 2018-06-14 18:55:00 [facility] Temperature Oral (F) 2018-01-05 20:02:00 99 F [facility] [place] Heart Rate 2018-01-05 20:02:00 [facility] Height 2018-01-05 20:02:00 160.02 cm [facility] Weight 2018-01-05 20:02:00 [facility] BMI Calculated 2018-01-05 20:02:00 [facility] [place] Systolic (mm Hg) 2018-01-05 20:02:00 [facility] [place] Diastolic (mm Hg) 2018-01-05 20:02:00 [facility] [place] BMI Calculated 2017-10-06 19:44:00 [facility] Weight 2017-10-06 19:44:00 [facility] [place] Height 2017-10-06 19:44:00 160.02 cm [facility] Heart Rate 2017-10-06 19:44:00 [facility] [place] Temperature Oral (F) 2017-10-06 19:44:00 98.4 F [facility] Systolic (mm Hg) 2017-10-06 19:44:00 [facility] [place] Diastolic (mm Hg) 2017-10-06 19:44:00 [facility] [place] Temperature Oral (F) 2017-07-02 19:47:00 98.4 F [facility] [place] BMI Calculated 2017-07-02 19:47:00 [facility] [place] Height 2017-07-02 19:47:00 160.02 cm [facility] [place] Systolic (mm Hg) 2017-07-02 19:47:00 [facility] [place] Diastolic (mm Hg) 2017-07-02 19:47:00 [facility] Weight 2017-07-02 19:47:00 [facility] [place] Systolic (mm Hg) 2017-06-09 18:55:00 [facility] [place] Diastolic (mm Hg) 2017-06-09 18:55:00 [facility] [place] Height 2017-06-09 18:55:00 160.02 cm [facility] Weight 2017-06-09 18:55:00 [facility] [place] BMI Calculated 2017-06-09 18:55:00 [facility] [place] Heart Rate 2017-06-09 18:55:00 [facility] [place] Temperature Oral (F) 2017-06-09 18:55:00 98.3 F [facility] BMI Calculated 2017-03-31 19:54:00 [facility] [place] Weight 2017-03-31 19:54:00 [facility] Height 2017-03-31 19:54:00 160.02 cm [facility] Temperature Oral (F) 2017-03-31 19:54:00 99.0 F [facility] Systolic (mm Hg) 2017-03-31 19:54:00 [facility] [place] Diastolic (mm Hg) 2017-03-31 19:54:00 [facility] [place] Weight 2017-02-23 19:45:00 [facility] BMI Calculated 2017-02-23 19:45:00 [facility] [place] Height 2017-02-23 19:45:00 160.02 cm [facility] [place] Systolic (mm Hg) 2017-02-23 19:45:00 [facility] [place] Diastolic (mm Hg) 2017-02-23 19:45:00 [facility] [place] Temperature Oral (F) 2017-02-23 19:45:00 97.9 F [facility] Systolic (mm Hg) 2016-03-12 19:37:00 [facility] [place] Diastolic (mm Hg) 2016-03-12 19:37:00 [facility] [place] Heart Rate 2016-03-12 19:37:00 [facility] Weight 2016-03-12 19:37:00 [facility] BMI Calculated 2016-03-12 19:37:00 [facility] [place] Height 2016-03-12 19:37:00 160.02 cm [facility] Respitory Rate 2016-03-12 19:37:00 [facility] [place] Respitory Rate 2015-09-16 23:31:00 [facility] [place] Heart Rate 2015-09-16 23:31:00 [facility] [place] Systolic (mm Hg) 2015-09-16 23:31:00 [facility] [place] Diastolic (mm Hg) 2015-09-16 23:31:00 [facility] [place] BMI Calculated 2015-09-16 21:59:00 [facility] Weight 2015-09-16 21:59:00 [facility] Temperature Oral (F) 2015-09-16 21:59:00 98.0 F [facility] [place] Heart Rate 2015-09-16 21:59:00 [facility] [place] Respitory Rate 2015-09-16 21:59:00 [facility] [place] Height 2015-09-16 21:59:00 160.02 cm [facility] Systolic (mm Hg) 2015-09-16 21:59:00 [facility] [place] Diastolic (mm Hg) 2015-09-16 21:59:00 [facility] BMI Calculated 2015-03-14 20:38:00 [facility] [place] Weight 2015-03-14 20:38:00 [facility] [place] Height 2015-03-14 20:38:00 160.02 cm [facility] Heart Rate 2015-03-14 20:38:00 [facility] Temperature Oral (F) 2015-03-14 20:38:00 97.9 F [facility] Systolic (mm Hg) 2015-03-14 20:38:00 [facility] [place] Diastolic (mm Hg) 2015-03-14 20:38:00 [facility] [place] Height 2014-08-23 20:15:21 [facility] Temperature Oral (F) 2014-08-23 20:15:21 97.9 F [facility] [place] Systolic (mm Hg) 2014-08-23 20:15:21 [facility] [place] Diastolic (mm Hg) 2014-08-23 20:15:21 [facility] [place] Heart Rate 2014-08-23 20:15:21 [facility] [place] Weight 2014-08-23 20:15:21 [facility] Height 2014-08-22 18:24:51 [facility] [place] Weight 2014-08-22 18:24:51 [facility] Temperature Oral (F) 2014-08-22 18:24:51 96.2 F [facility] [place] Systolic (mm Hg) 2014-08-22 18:24:51 [facility] [place] Diastolic (mm Hg) 2014-08-22 18:24:51 [facility] [place] Heart Rate 2014-08-22 18:24:51 [facility] Height 2014-08-08 13:49:47 [facility] [place] Weight 2014-08-08 13:49:47 [facility] Temperature Oral (F) 2014-08-08 13:49:47 97.5 F [facility] [place] Systolic (mm Hg) 2014-08-08 13:49:47 [facility] [place] Diastolic (mm Hg) 2014-08-08 13:49:47 [facility] Heart Rate 2014-08-08 13:49:47 [facility] Weight 2014-04-06 19:44:51 [facility] Temperature Oral (F) 2014-04-06 19:44:51 96.9 F [facility] Systolic (mm Hg) 2014-04-06 19:44:51 [facility] [place] Diastolic (mm Hg) 2014-04-06 19:44:51 [facility] [place] Heart Rate 2014-04-06 19:44:51 [facility] [place] Height 2014-02-13 17:13:31 [facility] Weight 2014-02-13 17:13:31 [facility] [place] Temperature Oral (F) 2014-02-13 17:13:31 98.4 F [facility] Heart Rate 2014-02-13 17:13:31 [facility] Systolic (mm Hg) 2014-02-13 17:13:31 [facility] [place] Diastolic (mm Hg) 2014-02-13 17:13:31 [facility] Systolic (mm Hg) 2013-11-30 21:22:00 [facility] [place] Diastolic (mm Hg) 2013-11-30 21:22:00 [facility] [place] Respitory Rate 2013-11-30 21:22:00 [facility] [place] Heart Rate 2013-11-30 21:22:00 [facility] [place] Systolic (mm Hg) 2013-11-30 19:00:00 [facility] [place] Diastolic (mm Hg) 2013-11-30 19:00:00 [facility] Heart Rate 2013-11-30 19:00:00 [facility] Respitory Rate 2013-11-30 19:00:00 [facility] Weight 2013-11-30 17:06:00 [facility] [place] Height 2013-11-30 17:06:00 160.02 cm [facility] BMI Calculated 2013-11-30 17:06:00 [facility] Temperature Oral (F) 2013-11-30 17:06:00 98.2 F [facility] [place] Respitory Rate 2013-11-30 17:06:00 [facility] [place] Heart Rate 2013-11-30 17:06:00 [facility] [place] Diastolic (mm Hg) 2013-11-30 17:06:00 [facility] [place] Systolic (mm Hg) 2013-11-30 17:06:00 [facility] Height 2013-11-21 16:45:30 [facility] Weight 2013-11-21 16:45:30 [facility] Systolic (mm Hg) 2013-11-21 16:45:30 [facility] [place] Diastolic (mm Hg) 2013-11-21 16:45:30 [facility] [place] Heart Rate 2013-11-21 16:45:30 [facility] [place] Weight 2013-11-07 16:51:30 [facility] [place] Temperature Oral (F) 2013-11-07 16:51:30 98.2 F [facility] [place] Systolic (mm Hg) 2013-11-07 16:51:30 [facility] [place] Diastolic (mm Hg) 2013-11-07 16:51:30 [facility] [place] Heart Rate 2013-11-07 16:51:30 [facility] [place] Weight 2013-10-25 18:37:21 [facility] Temperature Oral (F) 2013-10-25 18:37:21 97.9 F [facility] Respitory Rate 2013-10-25 18:37:21 [facility] [place] Heart Rate 2013-10-25 18:37:21 [facility] [place] Systolic (mm Hg) 2013-10-25 18:37:21 [facility] [place] Diastolic (mm Hg) 2013-10-25 18:37:21 [facility] Weight 2013-10-05 19:17:34 [facility] Temperature Oral (F) 2013-10-05 19:17:34 97.7 F [facility] [place] Heart Rate 2013-10-05 19:17:34 [facility] [place] Systolic (mm Hg) 2013-10-05 19:17:34 [facility] [place] Diastolic (mm Hg) 2013-10-05 19:17:34 [facility] [place] Temperature Oral (F) 2013-09-01 20:40:23 98.3 F [facility] Weight 2013-09-01 20:40:23 [facility] Systolic (mm Hg) 2013-09-01 20:40:23 [facility] [place] Diastolic (mm Hg) 2013-09-01 20:40:23 [facility] [place] Heart Rate 2013-09-01 20:40:23 [facility] Weight 2012-12-07 15:01:11 [facility] [place] Temperature Oral (F) 2012-12-07 15:01:11 97.4 F [facility] Systolic (mm Hg) 2012-12-07 15:01:11 [facility] [place] Diastolic (mm Hg) 2012-12-07 15:01:11 [facility] Heart Rate 2012-12-07 15:01:11 [facility] [place] Systolic (mm Hg) 2012-12-03 14:46:01 [facility] [place] Diastolic (mm Hg) 2012-12-03 14:46:01 [facility] [place] Heart Rate 2012-12-03 14:46:01 [facility] Temperature Oral (F) 2012-12-03 14:46:01 98.0 F [facility] Weight 2012-12-03 14:46:01 [facility] Weight 2012-07-29 20:41:00 [facility] Temperature Oral (F) 2012-07-29 20:41:00 97.2 F [facility] [place] Systolic (mm Hg) 2012-07-29 20:41:00 [facility] [place] Diastolic (mm Hg) 2012-07-29 20:41:00 [facility] [place] Heart Rate 2012-07-29 20:41:00 [facility] [place] Weight 2012-04-30 15:58:31 [facility] [place] Systolic (mm Hg) 2012-04-30 15:58:31 [facility] [place] Diastolic (mm Hg) 2012-04-30 15:58:31 [facility] [place] Heart Rate 2012-04-30 15:58:31 [facility] [place] Temperature Oral (F) 2012-04-30 15:58:31 96.6 F [facility] [place] Height 2011-12-08 14:51:31 [facility] Weight 2011-12-08 14:51:31 [facility] [place] Temperature Oral (F) 2011-12-08 14:51:31 97.5 F [facility] [place] Systolic (mm Hg) 2011-12-08 14:51:31 [facility] [place] Diastolic (mm Hg) 2011-12-08 14:51:31 [facility] [place] Heart Rate 2011-12-08 14:51:31 [facility] Procedures Procedure Date / Time Performed Performing Clinician [facility] jody Removal of gallbladder 2013-03-30 06:00:00 [facility] [place] colonoscopy 2008-03-30 17:58:11 Vandana sellers vaginal Pap smear results 2008-03-30 15:51:31 Co morial [place] mammogram 1999-03-30 15:51:31 [facility] sellers Bilateral tubal ligation Mak breen [facility] Carpal tunnel release [facility] Mamm[facility] Encounters Start End Encounter Admission Attending Care Care Encounter Source Date/Time Date/Time Type Type Clinicians Facility Department ID 2020-08-13 2020-08-13 Outpatient Huma [facility] [id number] 00:00:00 00:00:00 Roula [id number] 2020-07-26 2020-07-26 Outpatient Huma, [facility] [id number] 00:00:00 00:00:00 Roula [id number] 2020-07-24 2020-07-24 Outpatient SUSTACHE, [facility] [id number] [employer] 00:00:00 00:00:00 CARLOS 808 Metho sena 2020-07-23 2020-07-23 Outpatient Rajesh, [facility]SL [id number] 16:54:40 18:17:00 Nelson [place] Fidel 2020-07-23 2020-07-23 Emergency E MHFB MHFB [id number] MHFB 16:54:00 16:54:00 2020-03-09 2020-03-09 [facility] [id number] 11:08:00 23:59:00 Epifanio Velasquez 2020-03-09 2020-03-09 Outpatient [facility] [id number] [facility] 11:08:00 11:08:00 2020-01-11 2020-01-11 Outpatient Fco Estrada [facility]SL [id number] 17:36:56 21:26:00 Palomo 69 2019-10-07 2019-10-08 Outpatient MHMG MHMG [id number] 15:30:17 15:30:17 68 2019-10-07 2019-10-07 Outpatient Sustache, [facility]MG MHMG [id number] 15:30:00 15:30:00 Carlos 27 2019-01-03 2019-01-04 Outpatient MHMG MHMG [id number] 17:03:00 17:03:00 67 2018-12-31 2018-12-31 Outpatient Sustache, [facility]MG MHMG [id number] 11:00:00 23:59:59 Carlos 26 2018 2018-09-28 Outpatient MH[facility] [id number] 09:45:47 09:45:47 65 2018-09-24 2018-09-25 Outpatient MH[facility] [id number] 12:35:02 12:35:02 64 2018-09-22 2018-09-23 Outpatient MHMG MHMG [id number] 16:49:52 16:49:52 63 2018-09-22 2018-09-22 Outpatient Sustache, [facility] MHMG [id number] 13:30:00 23:59:59 Carlos 25 2018-09-06 2018-09-07 Outpatient MHMG MHMG [id number] 08:31:31 08:31:31 61 2018-09-03 2018-09-03 Outpatient Sustache, [facility] [id number] 09:00:00 23:59:59 Carlos 24 2018-07-28 2018-07-28 Outpatient Lucernemines, [facility] [id number] 01:39:00 23:59:00 Epifanio Leonard Velasquez 2018-07-28 2018-07-28 Outpatient M[facility] MHH [id number] MHHH 01:39:00 01:39:00 2018-06-16 2018-06-17 Outpatient MHMG MHMG [id number] 15:32:41 15:32:41 59 2018-06-14 2018-06-14 Outpatient Sustache, [facility] MH[facility] [id number] 14:10:00 23:59:59 Carlos 23 2018-01-19 2018-01-20 Outpatient MHMG [facility]MG [id number] 11:25:00 23:59:59 38 2018-01-08 2018-01-09 Outpatient MHMG MH[facility] [id number] 08:55:00 23:59:59 37 2018-01-08 2018-01-09 Outpatient MHMG [facility]MG [id number] 08:54:00 23:59:59 36 2018-01-05 2018-01-06 Outpatient MH[facility] MH[facility] [id number] 08:32:00 23:59:59 35 2018-01-05 2018-01-05 Outpatient Sustache, [facility]MG MHMG [id number] 14:50:00 23:59:59 Carlos 22 2018-01-05 2018-01-05 Outpatient Alas, MH29 MH29 [id number] 16:42:00 23:59:00 Mercedez 02 2017-12-30 2017-12-31 Outpatient MHMG MHMG [id number] 15:39:00 23:59:59 34 2017-12-30 2017-12-31 Outpatient MHMG MHMG [id number] 10:11:00 23:59:59 33 2017-11-06 2017-11-07 Outpatient MHMG MHMG [id number] 16:20:00 23:59:59 32 2017-10-06 2017-10-06 Outpatient Sustache, MHMG MHMG [id number] 14:30:00 23:59:59 Carlos 21 2017-07-28 2017-07-29 Outpatient MHMG MHMG [id number] 15:09:00 23:59:59 31 2017-07-28 2017-07-29 Outpatient MHMG MHMG [id number] 15:09:00 23:59:59 31 2017-07-27 2017-07-28 Outpatient MHMG MHMG [id number] 08:56:00 23:59:59 30 2017-07-27 2017-07-28 Outpatient MHMG MHMG [id number] 08:56:00 23:59:59 30 2017-07-02 2017-07-02 Outpatient Sustache, [facility]MG MHMG [id number] 14:50:00 23:59:59 Carlos 20 2017-06-29 2017-06-29 Outpatient Sustache, [facility]MG MHMG [id number] 14:50:00 14:50:00 Carlos 19 2017-06-26 2017-06-27 Outpatient MHMG MHMG [id number] 14:14:00 23:59:59 27 2017-06-15 2017-06-16 Outpatient MHMG MHMG [id number] 14:19:00 23:59:59 26 2017-06-09 2017-06-09 Outpatient Sustache, [facility]MG MHMG [id number] 13:50:00 23:59:59 Carlos 18 2017-06-05 2017-06-06 Outpatient MHMG MHMG [id number] 11:21:00 23:59:59 25 2017-06-05 2017-06-05 Outpatient Danny, MHPL MHPL [id number] 20:21:00 20:28:00 Zeb Damon 17 2017-06-05 2017-06-05 Outpatient Danny, [facility]PL [facility]PL [id number] 20:21:00 20:28:00 Zeb Damon 17 2017-03-31 2017-03-31 Outpatient Sustache, [facility] [id number] 13:50:00 23:59:59 Carlos 17 2017-03-12 2017-03-13 Outpatient [facility] [id number] 14:29:00 23:59:59 24 2017-03-09 2017-03-10 Outpatient [facility] [id number] 08:24:00 23:59:59 23 2017-02-23 2017-02-23 Outpatient Sustache, [facility] [id number] 13:50:00 23:59:59 Carlos 16 2016-03-25 2016-03-25 Outpatient Lucernemines, MH35 [facility] [id number] 09:58:00 23:59:00 Epifanio Velasquez 2016-03-12 2016-03-12 Outpatient Kamron, [facility] [id number] 13:31:00 23:59:00 Epifanio 09 Velasquez 2015-09-16 2015-09-16 [facility] [id number] 16:47:00 19:06:00 Michelle De Los Santos Paulina 2015-04-30 2015-04-30 Outpatient Lucernemines, [facility] [id number] 11:15:00 14:00:00 Epifanio 03 Velasquez 2015-03-14 2015-03-14 Outpatient Lucernemines, [facility] [id number] 14:09:00 23:59:00 Epifanio 02 Velasquez 2015-02-23 2015-02-23 Outpatient Ann Marie, MH29 [facility] [id number] 06:58:00 23:59:00 Sb Breen 00 2013-11-30 2013-11-30 Outpatient Desean Mosquera [facility] [id number] 11:56:00 17:05:00 00 Results Test Description Test Time Test Comments Results Result Comments Source URINE AND STOOL 2020-01-11 Light Yellow [facility] l 23:55:00 *NA*(01/11/20 [place] 6:55 PM) URINE AND STOOL 2020-01-11 Clear [facility] 23:55:00 (01/11/20 6:55 [place] PM) URINE AND STOOL 2020-01-11 23:55:00 Test Item Value Reference Range Interpretation Comme nts UA Spec Grav (test code = UA Spec Grav) 1.005 1 [facility] [id number] 23:55:00 Test Item Value Reference Range Interpretation Comments UA pH (test code = UA pH) 7.0 1 5.0-8.0 [facility] [id number] 23:55:00Negative (01/11/20 6:55 PM) [facility] [id number] 23:55:00Negative *NA*(01/11/20 6:55 PM)[facility] [id number] 23:55:00Negative *NA*(01/11/20 6:55 PM)[facility] [id number] 23:55:00Negative *NA*(01/11/20 6:55 PM)[facility] [id number] 23:55:00Small *ABN*(01/11/20 6:55 PM)[facility] [id number] 23:55:00Negative (01/11/20 6:55 PM) [facility] [id number] 23:55:00Trace *ABN*(01/11/20 6:55 PM) [facility] [id number] 23:55:005[facility] [id number] 23:55:001[facility] HermannCARDIAC [id number] 23:40:00 <0.02[facility]annCHEM [id number] 23:40:0094[facility]annCHEM [id number] 23:40:0010[facility]annCHEM JQUCA2012-16-13 23:40:000.93 [facility]ann[facility] [id number] 23:40:92433Sdyregzb HermannCHEM PANEL 2020-01-11 23:40:003.6[facility]annCHE[facility] [id number] 23:40:48952Pvsrwjvm HermannCHEM EDVBO0642-67-00 23:40:0028[facility]annCHEM [id number] 23:40:009.4[facility]annCHEM [id number] 23:40:007.2[facility]annCHEM [id number] 23:40:003.7[facility] HermannCHEM [id number] 23:40:0028 [facility]annCHE[facility] [id number] 23:40:0023[facility] HermannCHEM PANEL 2020-01-11 23:40:0078[facility]annCHEM [id number] 23:40:001.1[facility]annCHEM [id number] 23:40:0010.6[facility] HermannCHEM [id number] 23:40:00 Test Item Value Reference Range Interpretation Comments B/C Ratio (test code = B/C Ratio) 11 1 6-25 [facility] [id number] 23:40:003.5[facility]annCHEM PANEL 2020-01-11 23:40:00 Test Item Value Reference Range Interpretation Comments A/G Ratio (test code = A/G Ratio) 1.1 1 0.7-1.6 [facility] [id number] 23:40:0066[facility]annCHEM PANEL 2020-01-11 23:40:97577Binbwmqx HermannCHEM [id number] 23:40:002.1[facility] LklnmojFXJUTUMISL8953-10-44 23:40:008.8[facility] InsrifhKYUNZLUCMM1542-88-85 23:40:005.09[facility] RgdoofbMFLRCGUMSM4184-29-76 23:40:0015.6[facility] [place] IYBMCQMYTI9367-37-09 23:40:0045.2[facility] VcilsbfFUCJFVEBYQ7898-00-12 23:40:00 88.8[facility] ZyxvcsjVOOHYEMXYT0760-48-08 23:40:00 Test Item Value Reference Range Interpretation Comments MCH (test code = MCH) 30.7 pg 27.0-31.0 [facility] FmwxywkQDKEGHZPDL9404-87-22 23:40:0034.6[facility] HermannHEMATOLOGY 2020-01-11 23:40:0013.6[facility] KurzjwaVGUNITQNHK9574-71-24 23:40:50489Epmkjjgs XdlewkdLAGNPOCFFZ1243-77-23 23:40:009.4[facility] FpnfvmzLSGWJTTTCP1872-95-10 23:40:00 Test Item Value Reference Range Interpretation Comments PT (test code = PT) 12.6 s 12.0-14.7 [facility] CenjoncKEVGQSZLIZ3695-09-33 23:40:00 Test Item Value Reference Range Interpretation Comments INR (test code = INR) 0.94 1 0.85-1.17 [facility] LxkjqfjBAMZVXBOCL9479-01-51 23:40:00 Test Item Value Reference Range Interpretation Comments PTT (test code = PTT) 23.7 s 22.9-35.8 [facility] JblemmeRPRHNBLCOJ1645-83-10 23:40:0067.2[facility] HermannHEMATOLOGY 2020-01-11 23:40:0021.9[facility] GnyhrjvWZZZPSPCKN8908-54-42 23:40:008.9[facility] UdoxxnhWOWBATXAUV2286-36-11 23:40:001.2[facility] [id number] 23:40:000.8[facility] TtyrfrvYBUGYIFWSG4461-27-47 23:40:005.9[facility] POLDGWLYBW5428-83-12 23:40:001.9[facility] HyhqghzREAHWRQVCQ3601-07-90 23:40:000.8 [facility] OxvzrolIWCPVFICHS3271-44-19 23:40:000.1[facility]ann[facility]OLOGY 2020-01-11 23:40:000.1[facility] QfzrvxfXRLU6916-28-56 11:22:00 RUN DATE: 01/01/18 [facility] - LAB *LIVE* PAGE 1 RUN TIME: 1122 Specimen Inquiry RUN USER: INTERFACE PATIENT: BOZENA MARSH LOC: EVA U #: [id number] AGE/SX: 62/F ROOM: RE12/31/17REG DR: Raz Gaspar III : 57 BED: DIS: STATUS: [facility] TLOC: SPEC #: [id number] RECD: 12/31/17 STATUS: HENRY REQ #: [id number] SHYANN: 12/31/[address] [facility] [address]: Raz Gaspar III, MD ENTERED: 12/31/17 SP TYPE: SURG OTHR D R: No Primary or Family PhysicianORDERED: SURG PATH LVL 1, SURG PATH LVL 4 COPIES TO: No Primary or Family Physician Raz Gaspar III, [id number] [facility] [address] [place], [place] [address] HISTOLOGY: TISSUEID BLK PCS ANAIS LEV PROCEDURE DISPOSITION ____ ___ ___ ___ NASAL TURBINATE A 1 1 NASAL SEPTUM, N B 1 1 PROCEDURES: SURG PATH LVL 1 (01/01/18) SURG PATH LVL 4 (01/01/18) TISSUES: A. NASAL TURBINATE, NOS - BILATERAL INFERIOR TURBINATES B. NASAL SEPTUM, NOS - SEPTUM CPT CODES CPT CODE(S): 35828 , 06410 , , , , , FINAL DIAGNOSIS A. Inferior turbinate, bilateral, endoscopic sinus surgery: SINUS CONTENTS CONSISTENT WITH CHRONIC SINUSITIS B. Nasal septum, septoplasty: BONE AND CARTILAGE (GROSS ONLY) GROSS DESCRIPTION A. Bilateral inferior turbinates. Received in formalin are irregular fragments of sauceda-brown soft tissue admixed with dark brown blood clots, 2.7 x 1.8 x 1.0 cm in aggregate. Pallet Sorter sections submitted as A. B. Septum. Received in formalin are multiple irregular fragments of cartilage CONTINUED ON NEXT PAGE RUN DATE: 01/01/18 [facility] - LAB *LIVE* PAGE 2 RUN TIME: 112 Specimen Inquiry RUN USER: INTERFACE --------- ---SPEC #: [facility]:[id number] PATIENT: BOZENA MARSH #[id number] (Continued) GROSS DESCRIPTION (Continued) and bones, 5.0 x 3.5 x 0.7 cm in aggregate. The specimen is photographed for gross identification only. vaughn/nr Grossing performed at [facility], [address], [address], [place] [address]. Tariff Counsel: Ralph Dash M.D. MICROSCOPIC DESCRIPTION A. Bilateral inferior turbinates. Fragments of respiratory epithelium lined mucosa. There are benign mucus glands and a chronic inflammatory infiltrate. Fragments of unremarkable cartilage and bone present. No evidence of malignancy. B. Septum. For gross identification only. /doug- Signed SIGNATURE ON FILE Kel Chatterjee 01/01/18 1122 END OF REPORT CARDIAC [id number] 22:47:00<0.02 [facility] ABQLVZP7119-06-37 22:47:00<0.5[facility] RPQLMIT2867-18-78 22:47:0054[facility] DBMVUJE9355-29-51 22:47:00 <0.9[facility]ann[facility] JKFVU7983-27-84 22:47:007.0[facility]ann[facility] IFBCW8568-28-41 22:47:0071[facility]annCHE[facility] BAZEM3037-01-06 22:47:003.3 [facility] XILEW0789-05-53 22:47:001.1[facility]ann[facility] PANEL 2015-09-16 22:47:000.8[facility] MYAKX4202-80-89 22:47:0077[facility] TLSPL2137-54-33 22:47:0012.7[facility] WMGOQ6313-44-37 22:47:0018[facility]ann[facility] DBDNP3012-27-74 22:47:003.7[facility]ann[facility] BRCBB4148-90-84 22:47:0024[facility]ann[facility] GJJBU2223-94-76 22:47:0018 [facility] UMSXZ9473-39-12 22:47:48987Casobnas HermannCHEM PANEL 2015-09-16 22:47:003.7[facility]annCHE[facility] BIYHM5447-31-58 22:47:0028[facility] KAZPW9209-86-98 22:47:008.6[facility]annCHE[facility] TIYIC0979-31-14 22:47:46724Hbeblhws HermannCHEM NLOLQ0090-73-83 22:47:000.90[facility]annCHEM PXTWW3968-71-72 22:47:0016[facility]annCHEM OCCBO0966-83-77 22:47:99014 [facility] QftwajoUJQCVRQMPE8644-48-07 22:47:008.8[facility]annHEMATOLOGY 2015-09-16 22:47:005.39[facility] XepieupGCIQBVVKZI5827-88-25 22:47:0088.0[facility] IvvqonbDIHNGLRJZA1259-95-27 22:47:0015.6[facility] NvrjxptZRQMWNILPS7075-93-44 22:47:00 Test Item Value Reference Range Interpretation Comments MCH (test code = MCH) 29.0 pg 27.0-31.0 [facility] OtgqdqeKIKHYTWNOP2722-88-03 22:47:009.5[facility]annHEMATOLOGY 2015-09-16 22:47:15500Hfjsgqfe NxezgdeTVENMWEWCV9986-34-53 22:47:0033.0[facility] GwvbwxiNEZVFZQHAH5776-42-42 22:47:0013.3[facility] ThhulzaNVAQEYZPOI7523-09-12 22:47:0047.5[facility] MtuifbnLTUMCLGCXM0989-09-24 22:47:000.5[facility] AYMBQQDLGI6267-46-22 22:47:001.1[facility] PirilanPYFRUHYROB3358-61-52 22:47:006.3 [facility] AinelanOFBIZIGPKG2836-58-44 22:47:0054.0[facility]annHEMATOLOGY 2015-09-16 22:47:0038.1[facility] VwcmbbjSYFBMAFLEO5015-06-02 22:47:000.0[facility] QolxnshVODQLJJXZK5207-30-91 22:47:000.1[facility] QejpcrjMJNZOEQHXN6913-17-28 22:47:000.6[facility] JaqwbjgUWVFQJWITJ9178-06-19 22:47:003.4[facility] UOFUDZUPOB3163-16-93 22:47:004.7[facility]annUR[facility] AND QXATQ8349-14-67 22:47:00None Seen (09/16/15 5:47 PM)[facility] MRPSJ2166-48-34 22:47:00Negative (09/16/15 5:47 PM)[facility] ATMDJ0030-72-70 22:47:00Negative (09/16/15 5:47 PM)[facility] VRRQV7873-56-77 22:47:00None Seen (09/16/15 5:47 PM)[facility] QFOIJ8550-30-06 22:47:00Performed (09/16/15 5:47 PM)[facility] MBMQK9265-99-99 22:47:00Negative (09/16/15 5:47 PM)[facility] NNWRQ2044-94-40 22:47:00Negative (09/16/15 5:47 PM)[facility] ANHZT3631-83-29 22:47:00 Test Item Value Reference Range Interpretation Comments UA pH (test code = UA pH) 6.0 1 5.0-8.0 [facility] [id number] 22:47:00Negative *NA*(09/16/15 5:47 PM) [facility] UVFOT6559-15-52 22:47:00Negative *NA*(09/16/15 5:47 PM) [facility] OIQPA4173-67-69 22:47:000.2[facility] SOTIP0056-84-46 22:47:00Trace *ABN*(09/16/15 5:47 PM)[facility] BASTR7299-69-41 22:47:00Clear (09/16/15 5:47 PM)[facility] STOOL 2015-09-16 22:47:00Yellow *NA*(09/16/15 5:47 PM)[facility] STOOL 2015-09-16 22:47:00 Test Item Value Reference Range Interpretation Comments UA Spec Grav (test code = UA Spec 1.025 1 Grav) [facility] FbtcfmoTgxijjvs5413-69-84 21:24:000.6 U/mLMemorial HermannChemistry 2014-08-22 19:06:000.96[facility] KldmrjtMapllqztvu3409-88-73 19:06:001[facility] CurgcyuKlnaoqgj3154-95-71 19:06:00NegativeMemorial HermannURINE AND STOOL 2013-11-30 19:00:45Negative *NA*(11/30/13 2:00 PM)[facility] STOOL 2013-11-30 19:00:45Trace *ABN*(11/30/13 2:00 PM)[facility] STOOL 2013-11-30 19:00:450.2[facility] DVYGA0759-08-10 19:00:45 Test Item Value Reference Range Interpretation Comments UA pH (test code = UA pH) 6.0 1 5.0-8.0 [facility] ENBRY7212-15-68 19:00:45Negative *NA*(11/30/13 2:00 PM) [facility] RVARQ4468-73-14 19:00:45Negative (11/30/13 2:00 PM) [facility] QXUOF0692-61-35 19:00:45Negative (11/30/13 2:00 PM) [facility] QJSHF9728-51-13 19:00:45Clear (11/30/13 2:00 PM)[facility] PMQIH1406-85-55 19:00:45 Test Item Value Reference Range Interpretation Comments UA Spec Grav (test code = UA Spec 1.020 1 Grav) [facility] SFIKG4493-83-73 19:00:45Yellow *NA*(11/30/13 2:00 PM) [facility] DEAHL8076-62-51 19:00:45Negative (11/30/13 2:00 PM) [facility] EXDCY6916-49-90 19:00:45Negative (11/30/13 2:00 PM) [facility]annCHEM FZMZA4555-22-48 17:35:0016[facility]annCHEM PANEL 2013-11-30 17:35:0014.0[facility]annCHEM ZTYTQ9705-27-24 17:35:003.9[facility]annCHEM SCIXD2791-18-84 17:35:001.1[facility]annCHEM WUDII4065-91-87 17:35:0071[facility]annCHEM YZHXV6723-86-51 17:35:0031[facility]annCHEM YZIID6015-19-45 17:35:0025[facility]annCHEM NHWCQ6535-30-16 17:35:0093 [facility]annCHE[facility] NXKCQ5850-77-09 17:35:000.9[facility]annCHEM PANEL 2013-11-30 17:35:009.5[facility]annCHEM VWPJS4991-33-68 17:35:008.0[facility]annCHEM OPAUD0252-06-54 17:35:004.1[facility]annCHEM CFIGB9046-46-92 17:35:0024[facility]annCHEM GYYCC8058-61-13 17:35:13161Opsotkqi HermannCHEM KFZWP3807-52-55 17:35:000.9[facility]annCHEM MABSM1676-65-32 17:35:54347 [facility]annCHE[facility] AZBXR7677-43-36 17:35:004.0[facility]annCHEM PANEL 2013-11-30 17:35:0014[facility]annCHEM VMFAR5754-72-29 17:35:0092[facility]annCHEM BQHSU8990-25-63 17:35:21287Jdebnygu HermannCHEM VXOHN2796-82-28 17:35:0035Mem[facility] VazyztaHLIDYPSPMT6583-50-70 17:35:0034.0[facility] YWZFNLBXJV2924-53-57 17:35:0012.7[facility] IhhvtuvZRNSTVVOTW7066-56-51 17:35:00 236[facility] DldzlkoJFRHEHTMWG4217-62-91 17:35:009.6[facility]annHEMATOLOGY 2013-11-30 17:35:0016.9[facility] DftpfjmALBHKWBZBO0730-76-87 17:35:007.1[facility] FluurniSWTPZNFSCP1036-40-35 17:35:005.64[facility] SxyofkcVIRXKMHMLY6072-37-26 17:35:0049.7[facility] LaayfeoBEZTDDSKKS5843-74-78 17:35:00 Test Item Value Reference Range Interpretation Comments MCH (test code = MCH) 29.9 pg 27.0-31.0 [facility] YccugwfQGLIGHOGFI1088-20-45 17:35:0088.0[facility] HermannHEMATOLOGY 2013-11-30 17:35:000.0[facility] IpskfhxEPTIVBHXNF9815-19-13 17:35:004.8[facility] NfhlmocDZQDAIYWHR3925-75-90 17:35:000.4[facility] ZmmepreCHUXENTHRA6434-92-96 17:35:000.5[facility] AgndqblMWVICETCLM8301-75-04 17:35:000.0[facility] EGFNJVBGLM4262-38-43 17:35:000.7[facility] VeqbnxgVMFRFFCEJD7326-79-93 17:35:001.8 [facility] PimemlfBZJAGXCFGA6028-47-80 17:35:0067.7[facility] HermannHEMATOLOGY 2013-11-30 17:35:005.7[facility] JojmsdnSXAMPMWAKY5229-22-55 17:35:0025.4[facility] LjcjfofJFVTQDUMNO1269-44-16 17:35:00Negative (11/30/13 12:35 PM)[facility] Byyqgvqs7260-89-66 19:05:000.6 U/mLMemorial UkvkdtrKtottrem9396-16-96 19:05:00 0.6 U/mLMemorial HermannOb/Oct1030-63-06 15:51:31NormalMemorial HermannOb/Assurance Auditor 2008-03-30 15:51:31NormalMemorial HermannOb/Zss0213-13-63 15:51:31NormalMemorial HermannOb/Mhb3783-85-61 15:51:31NormalMemorial LeuwcqcOkvbdlren2144-85-63 15:51:31NormalMemorial JdnyysdCmhuefqoa0362-97-64 15:51:31NormalMemorial Bristol
[2020-08-15 12:47] LABS: Absolute Lymphocytes (CBC) 1.3 K/uL (0.7-4.9); Hematocrit 49.4 % (36.0-45.0); Lymphocytes % 24.7 % (15.3-44.8); MPV 9.5 fL (7.6-11.3); RBC Red Blood Cell Count 5.58 M/uL (3.86-4.86)
[2020-08-15 12:57] LABS: Magnesium 2.2 mg/dL (1.8-2.4)
--- NOTE | 2020-08-15 13:26 | EDPHYS ---
Physician Documentation [facility] Name: Tracey Rodriguez Age: 64 yrs Sex: Female : 1955 Arrival Date: 08/15/2020 Time: 10:22 Bed 19 Private MD: ED Physician Bruce Mclean HPI: 08/15 13:03 This 64 yrs old Female presents to ER via Ambulatory with complaints of rn Numbness Of Face. 13:04 The patient presents to the emergency department with paresthesias of the left side of rn the face, right side of the face. 13:06 Onset: The symptoms/episode began/occurred 3 week(s) ago. Context: occurred at an rn unknown location, occurred while the patient was at rest. Associated signs and symptoms: Pertinent positives: headache, Pertinent negatives: chills, dizziness, fever, neck stiffness, seizure, syncope, blurred vision, double vision, visual field changes, loss of vision, weakness. Severity of symptoms: At their worst the symptoms were mild in the emergency department the symptoms are unchanged. Current symptoms: Currently, the patient is not experiencing any symptoms. The patient has not experienced similar symptoms in the past. Reports 3 weeks of intermittent headache, now improved, but assoc with tingling to face and scalp. No fever. NO injury. Diagnosed with shingles of face recently, got antivirals and steroids. Also under a lot of stress. No current rash or headache. No other focal neuro complaint. . Historical: - Allergies: 10:33 anti-inflammatory (all); aa5 10:33 Ciprofloxacin; aa5 10:33 fluoroquinolones; aa5 10:33 Levaquin; aa5 10:33 Sulfa (Sulfonamide Antibiotics); aa5 - Home Meds: 10:33 Protonix Oral [Active]; gabapentin Oral [Active]; metoprolol tartrate Oral [Active]; aa5 - PMHx: 10:33 Diverticulitis; hiatal hernia; Hypoglycemic; Hypothyroidism; ibs; throat erosion; UTI; aa5 - PSHx: 10:33 Tubal ligation; Cholecystectomy; Carpal Tunnel Repair; aa5 - Immunization history:: Flu vaccine is not up to date. - Social history:: Smoking status: Patient denies any tobacco usage or history of. - Family history:: not pertinent. - Hospitalizations: : No recent hospitalization is reported. ROS: 13:06 Constitutional: Negative for fever, chills, and weight loss, Eyes: Negative for injury, rn pain, redness, and discharge, Neck: Negative for injury, pain, and swelling, Cardiovascular: Negative for chest pain, palpitations, and edema, Respiratory: Negative for shortness of breath, cough, wheezing, and pleuritic chest pain, Abdomen/GI: Negative for abdominal pain, nausea, vomiting, diarrhea, and constipation, Back: Negative for injury and pain, MS/Extremity: Negative for injury and deformity, Skin: Negative for injury, rash, and discoloration, Neuro: Negative for headache, weakness, and seizure. Exam: 13:06 Constitutional: This is a well developed, well nourished patient who is awake, alert, rn and in no acute distress. Head/Face: Normocephalic, atraumatic. Eyes: Pupils equal round and reactive to light, extra-ocular motions intact. Lids and lashes normal. Conjunctiva and sclera are non-icteric and not injected. Cornea within normal limits. Periorbital areas with no swelling, redness, or edema. ENT: Mucous membranes moist. Cardiovascular: Regular rate and rhythm. No pulse deficits. Respiratory: No increased work of breathing, no retractions or nasal flaring. Skin: Warm, dry with normal turgor. Normal color with no rashes, no lesions, and no evidence of cellulitis. MS/ Extremity: Pulses equal, no cyanosis. Neurovascular intact. Full, normal range of motion. Equal circumference. Neuro: Awake and alert, GCS 15, oriented to person, place, time, and situation. Cranial nerves II-XII grossly intact. Motor strength 5/5 in all extremities. Sensory grossly intact. Cerebellar exam normal. Vital Signs: 10:33 BP 149 / 84; Pulse 79; Resp 16; Temp 98.3; Pulse Ox 97% ; Weight 83.91 kg; Height 5 ft. aa5 3 in. (160.02 cm); Pain 3/10; 12:41 BP 146 / 90; Pulse 73; Resp 16; Pulse Ox 96% on R/A; zb 10:33 Body Mass Index 32.77 (83.91 kg, 160.02 cm) aa5 MDM: 12:06 Patient medically screened. rn 13:24 Data reviewed: vital signs, nurses notes, old medical records, lab test result(s), and rn as a result, I will discharge patient. Counseling: I had a detailed discussion with the patient and/or guardian regarding: the historical points, exam findings, and any diagnostic results supporting the discharge/admit diagnosis, lab results, the need for outpatient follow up, to return to the emergency department if symptoms worsen or persist or if there are any questions or concerns that arise at home. Response to treatment: the patient's symptoms have mildly improved after treatment, and as a result, I will discharge patient. Special discussion: I discussed with the patient/guardian in detail that at this point there is no indication for admission to the hospital. It is understood, however, that if the symptoms persist or worsen the patient needs to return immediately for re-evaluation. ED course: Pt without acute findings in bloodwork, ct head neg last visit, normal neuro exam, possibly stress related vs paresthesias related to recent shingles diagnosis. . 13:26 ED course: Pt to restart gabapentin as previously described, especially after recent rn shingles diagnosis. . 08/15 12:21 Order name: CBC with Diff rn 08/15 12:21 Order name: Basic Metabolic Panel rn 08/15 12:21 Order name: Magnesium rn 08/15 12:49 Order name: CBC with Automated Diff EDMS 08/15 12:57 Order name: Basic Metabolic Panel; Complete Time: 13:13 EDMS 08/15 12:57 Order name: Magnesium; Complete Time: 13:13 EDMS 08/15 12:21 Order name: IV Start; Complete Time: 12:36 rn 08/15 13:50 Order name: Manual Differential EDMS Administered Medications: 13:36 Drug: NS 0.9% 500 ml Route: IV; Rate: bolus; Site: right antecubital; zb 14:07 Follow up: IV Status: Completed infusion; IV Intake: 500ml vg1 Disposition: 08/15/20 13:25 Discharged to Home. Impression: Paresthesia of skin, Dehydration. - Condition is Stable. - Discharge Instructions: Dehydration, Adult, Paresthesia. - Medication Reconciliation Form, Thank You Letter, Antibiotic Education, Prescription Opioid Use form. - Follow up: Marcellus Bush MD; When: As needed; Reason: Recheck today's complaints, Re-evaluation by your physician. - Problem is an ongoing problem. - Symptoms have improved. Signatures: Dispatcher [employer] EDBruce Collado MD MD rn Calderon, Audri RN RN aa5 Charo Dotson RN RN vg1 Nazia Arndt RN RN zb Corrections: (The following items were deleted from the chart) 14:07 13:25 08/15/2020 13:25 Discharged to Home. Impression: Paresthesia of skin; vg1 Dehydration. Condition is Stable. Forms are Medication Reconciliation Form, Thank You Letter, Antibiotic Education, Prescription Opioid Use. Follow up: Marcellus Bush; When: As needed; Reason: Recheck today's complaints, Re-evaluation by your physician. Problem is an ongoing problem. Symptoms have improved. rn
--- NOTE | 2020-08-15 13:26 | ER ---
Nurse's Notes [facility] Name: Tracey Rodriguez Age: 64 yrs Sex: Female : 1955 Arrival Date: 08/15/2020 Time: 10:22 Bed 19 Private MD: Diagnosis: Paresthesia of skin;Dehydration Presentation: 08/15 10:33 Chief complaint: Patient states: Facial numbness, COCHRAN for 3 weeks. Was seen here around aa5 [address] scan of head-negative. Saw Berta Finn two days ago, she wanted her to come back in for further eval. Coronavirus screen: Client denies travel out of the [place] in the last 14 days. At this time, the client does not indicate any symptoms associated with coronavirus-19. Ebola Screen: Patient denies travel to an Ebola-affected area in the 21 days before illness onset. Initial Sepsis Screen: Does the patient meet any 2 criteria? No. Patient's initial sepsis screen is negative. Does the patient have a suspected source of infection? Yes: Other: COCHRAN/shingles infection. Risk Assessment: Do you want to hurt yourself or someone else? Patient reports no desire to harm self or others. Onset of symptoms was July 25, 2020. 10:33 Method Of Arrival: Ambulatory aa5 10:33 Acuity: ANUJA 3 aa5 Triage Assessment: 12:43 Headache History: The patient has had previous headaches and this one is similar to zb previous episodes. General: Appears in no apparent distress. Pain: Pain began 3 weeks Also complains of no other associated symptoms. Historical: - Allergies: 10:33 anti-inflammatory (all); aa5 10:33 Ciprofloxacin; aa5 10:33 fluoroquinolones; aa5 10:33 Levaquin; aa5 10:33 Sulfa (Sulfonamide Antibiotics); aa5 - Home Meds: 10:33 Protonix Oral [Active]; gabapentin Oral [Active]; metoprolol tartrate Oral [Active]; aa5 - PMHx: 10:33 Diverticulitis; hiatal hernia; Hypoglycemic; Hypothyroidism; ibs; throat erosion; UTI; aa5 - PSHx: 10:33 Tubal ligation; Cholecystectomy; Carpal Tunnel Repair; aa5 - Immunization history:: Flu vaccine is not up to date. - Social history:: Smoking status: Patient denies any tobacco usage or history of. - Family history:: not pertinent. - Hospitalizations: : No recent hospitalization is reported. Screenin:19 Abuse screen: Denies threats or abuse. Denies injuries from another. Nutritional zb screening: No deficits noted. Tuberculosis screening: No symptoms or risk factors identified. Fall Risk None identified. Assessment: 12:19 Reassessment: ECP at bedside. zb 12:41 General: Appears in no apparent distress. comfortable, Behavior is calm, cooperative, zb appropriate for age, anxious. Pain: Complains of pain in face and right leg Pain currently is 0 out of 10 on a pain scale. Quality of pain is described as burning, tingling. Neuro: Level of Consciousness is awake, alert, obeys commands, Oriented to person, place, time, situation, Childbirth Educator are equal bilaterally Moves all extremities. Full function Tingling in face Burning in face and right leg. Cardiovascular: Capillary refill < 3 seconds in bilateral Patient's skin is warm and dry. Respiratory: Airway is patent Respiratory effort is even, unlabored, Respiratory pattern is regular, symmetrical. GI: Abdomen is round. Derm: Skin is intact, is healthy with good turgor. Musculoskeletal: Range of motion: intact in all extremities. 13:29 Reassessment: d/c pending completion of IV fluids. zb Vital Signs: 10:33 BP 149 / 84; Pulse 79; Resp 16; Temp 98.3; Pulse Ox 97% ; Weight 83.91 kg; Height 5 ft. aa5 3 in. (160.02 cm); Pain 3/10; 12:41 BP 146 / 90; Pulse 73; Resp 16; Pulse Ox 96% on R/A; zb 10:33 Body Mass Index 32.77 (83.91 kg, 160.02 cm) aa5 ED Course: 10:22 Patient arrived in ED. am2 10:31 Arm band placed on. aa5 10:37 Triage completed. aa5 12:02 Patient placed in an exam room, on a stretcher. aa5 12:03 Nazia Arndt RN is Primary Nurse. zb 12:06 Bruce Mclean MD is Attending Physician. rn 12:20 Patient has correct armband on for positive identification. Placed in gown. Bed in low zb position. Call light in reach. Side rails up X 1. Pulse ox on. NIBP on. Door closed. Noise minimized. 12:43 No provider procedures requiring assistance completed. Inserted saline lock: 20 gauge zb in right antecubital area, using aseptic technique. Blood collected. 13:25 Marcellus Bush MD is Referral Physician. rn 14:07 IV discontinued, intact, bleeding controlled, No redness/swelling at site. Pressure vg1 dressing applied. Administered Medications: 13:36 Drug: NS 0.9% 500 ml Route: IV; Rate: bolus; Site: right antecubital; zb 14:07 Follow up: IV Status: Completed infusion; IV Intake: 500ml vg1 Intake: 14:07 IV: 500ml; Total: 500ml. vg1 Outcome: 13:25 Discharge ordered by . rn 13:37 Discharged to home ambulatory. zb 13:37 Condition: good 13:37 Discharge instructions given to patient, Instructed on discharge instructions, follow up and referral plans. Demonstrated understanding of instructions, follow-up care. 14:07 Patient left the ED. vg1 Signatures: Bruce Mclean MD MD rn Calderon, Audri, RN RN concepción5 Dorcas Coronel Victoria, RN RN vg1 Nazia Arndt RN RN zb
[2020-08-15 13:49] LABS: Blood Morphology Comment NOT SEEN (NOT SEEN); Platelet Estimate ADEQ
[2020-08-15] MEDS ORDERED: NA CHLORIDE 0.9% 500 ML ONE (13:50)
[2020-08-15 14:14] VITALS: TEMP 98.3
[2020-08-15 14:17] VITALS: BP 146/90; O2SAT 96
== END 2020-08-15 14:07 | disposition home or self-care (01) ==
LOC: ER 10:21
DX: E86.0 Dehydration (principal); E03.9 Hypothyroidism, unspecified; Z88.1 Allergy status to other antibiotic agents; Z88.2 Allergy status to sulfonamides; Z88.8 Allergy status to other drugs, medicaments and biological substances
CPT/HCPCS: 85025; 80048; 36415; 83735; J7040; 96360; 99284

== ENCOUNTER 2021-01-14 09:13 | Emergency (ER) | payer OTHER ==
[2021-01-14 11:02] LABS: Absolute Lymphocytes (CBC) 1.7 K/uL (0.7-4.9); Basophils % 1.3 % (0-1.3); Hematocrit 48.5 % (36.0-45.0); Lymphocytes % 26.7 % (15.3-44.8); MPV 9.5 fL (7.6-11.3); RBC Red Blood Cell Count 5.22 M/uL (3.86-4.86)
[2021-01-14 11:07] LABS: ALT/SGPT 35 U/L (12-78); AST/SGOT 21 U/L (15-37); Albumin 4.2 g/dL (3.4-5.0); Alkaline Phosphatase 100 U/L (45-117); BUN Blood Urea Nitrogen 10 mg/dL (7-18); Bicarbonate 28 mmol/L (21-32); Bilirubin Direct 0.2 mg/dL (0-0.2); Bilirubin Total 0.8 mg/dL (0.2-1.0); Glucose Level 102 mg/dL (74-106); Magnesium 2.2 mg/dL (1.8-2.4); NT PRO-BNP 42 pg/mL (<125); Protein, Total 7.7 g/dL (6.4-8.2); Sodium Level 140 mmol/L (136-145); Troponin (Emerg Dept Use Only) < 0.02 ng/mL (0.0-0.045)
[2021-01-14 11:12] LABS: Protime INR 0.97
[2021-01-14] MEDS ORDERED: NA CHLORIDE 0.9% 500 ML ONE (11:25)
--- NOTE | 2021-01-14 11:36 | RAD REPORT ---
EXAM DESCRIPTION: RAD - Chest Single View - 01/14/2021 10:52 am CLINICAL HISTORY: CHEST PAIN COMPARISON: Chest Single View dated 01/07/2020; Chest Single View dated 12/12/2019; Chest Single View dated 09/12/2018; Chest Single View dated 01/06/2018 FINDINGS: Lines: None. Lungs: No evidence of edema or pneumonia. Pleural: No significant pleural effusions or pneumothorax. Cardiac: The heart size is within normal limits. Bones: No acute fractures. Other: IMPRESSION: No acute cardiopulmonary disease.
--- NOTE | 2021-01-14 14:34 | EDPHYS ---
Physician Documentation [facility] Name: Tracey Rodriguez Age: 65 yrs Sex: Female : 1955 Arrival Date: 01/14/2021 Time: 09:17 Bed 8 Private MD: ED Physician Larisa Yung HPI: 01/14 09:34 This 65 yrs old Female presents to ER via Wheelchair with complaints of Chest sp3 Pain. 09:34 5-year-old female with a history of diverticulitis, esophagitis in the past, now sp3 presents with left arm pain for several days, and "indigestion" last 24 hours. Patient contacted her PCP who advised her to come to the ED for evaluation. Symptoms are waxing and waning but constant left arm not progressing to the chest with the indigestion and chest pressure symptoms. Patient denies fever, headache, URI symptoms, shortness of breath, back pain, abdominal pain, nausea, vomiting, diarrhea, syncope, neuro symptoms, rash, known sick contacts, travel history, any other ROS at this time. Remainder of ROS is negative. Patient had a negative CT scan of the head approximately 5 months ago.. Historical: - Allergies: 09:20 anti-inflammatory (all); aa5 09:20 Ciprofloxacin; aa5 09:20 fluoroquinolones; aa5 09:20 Levaquin; aa5 09:20 Sulfa (Sulfonamide Antibiotics); aa5 - PMHx: 09:20 Diverticulitis; hiatal hernia; Hypoglycemic; Hypothyroidism; ibs; throat erosion; UTI; aa5 - PSHx: 09:20 Tubal ligation; Cholecystectomy; Carpal Tunnel Repair; aa5 - Immunization history:: Client reports having NOT received the Covid vaccine. - Social history:: Smoking status: Patient denies any tobacco usage or history of. ROS: 09:36 Constitutional: Negative for fever, chills, and weight loss, Eyes: Negative for injury, sp3 pain, redness, and discharge, ENT: Negative for injury, pain, and discharge, Neck: Negative for injury, pain, and swelling, Respiratory: Negative for shortness of breath, cough, wheezing, and pleuritic chest pain, Abdomen/GI: Negative for abdominal pain, nausea, vomiting, diarrhea, and constipation, Back: Negative for injury and pain, MS/Extremity: Negative for injury and deformity, Skin: Negative for injury, rash, and discoloration, Neuro: Negative for headache, weakness, numbness, tingling, and seizure, Psych: Negative for depression, anxiety, suicide ideation, homicidal ideation, and hallucinations, Allergy/Immunology: Negative for hives, rash, and allergies. 09:36 All other systems are negative. Exam: 09:36 Constitutional: This is a well developed, well nourished patient who is awake, alert, sp3 and in no acute distress. Head/Face: Normocephalic, atraumatic. Eyes: Pupils equal round and reactive to light, extra-ocular motions intact. Lids and lashes normal. Conjunctiva and sclera are non-icteric and not injected. Cornea within normal limits. Periorbital areas with no swelling, redness, or edema. ENT: Nares patent. No nasal discharge, no septal abnormalities noted. External auditory canals are clear. Oropharynx with no redness, swelling, or masses, exudates, or evidence of obstruction, uvula midline. Mucous membranes moist. Neck: Trachea midline, no thyromegaly or masses palpated, and no cervical lymphadenopathy. Supple, full range of motion without nuchal rigidity, or vertebral point tenderness. No Meningismus. Chest/axilla: Normal chest wall appearance and motion. Nontender with no deformity. No lesions are appreciated. Cardiovascular: Regular rate and rhythm with a normal S1 and S2. No gallops, murmurs, or rubs. Normal PMI, no JVD. No pulse deficits. Respiratory: Lungs have equal breath sounds bilaterally, clear to auscultation and percussion. No rales, rhonchi or wheezes noted. No increased work of breathing, no retractions or nasal flaring. Abdomen/GI: Soft, non-tender, with normal bowel sounds. No distension or tympany. No guarding or rebound. No evidence of tenderness throughout. Back: No spinal tenderness. No costovertebral tenderness. Full range of motion. Skin: Warm, dry with normal turgor. Normal color with no rashes, no lesions, and no evidence of cellulitis. Neuro: Awake and alert, GCS 15, oriented to person, place, time, and situation. Cranial nerves II-XII grossly intact. Motor strength 5/5 in all extremities. Sensory grossly intact. Cerebellar exam normal. Normal gait. Psych: Awake, alert, with orientation to person, place and time. Behavior, mood, and affect are within normal limits. 09:57 ECG was reviewed by the Attending Physician. EKG demonstrates normal sinus rhythm at 72 sp3 bpm with normal intervals, normal QRS, mild leftward axis, nonspecific ST/T changes without any evidence of ischemia. Vital Signs: 09:19 BP 178 / 94; Pulse 88; Resp 18 S; Temp 98.2(O); Pulse Ox 95% on R/A; Weight 92.08 kg aa5 (R); Height 5 ft. 3 in. (160.02 cm) (R); Pain 5/10; 09:57 BP 169 / 95; Pulse 78; Resp 19; Pulse Ox 99% on R/A; mh5 10:34 BP 140 / 78; Pulse 62; Resp 16; Pulse Ox 98% on R/A; mh5 12:12 BP 148 / 99; Pulse 54; Resp 13; Pulse Ox 95% ; bp 14:03 BP 142 / 96; Pulse 70; Resp 14; Pulse Ox 97% on R/A; mh5 14:54 BP 135 / 83; Pulse 64; Resp 14; Temp 98.5; Pulse Ox 96% ; bp 09:19 Body Mass Index 35.96 (92.08 kg, 160.02 cm) aa5 MDM: 09:25 Patient medically screened. sp3 09:36 Data reviewed: vital signs, nurses notes. ED course: 65-year-old female with left arm sp3 pain and now chest pressure and indigestion. Differential diagnosis includes acute coronary syndrome left arm MSK pain, esophagitis, gastritis, esophageal reflux, and functional symptoms. I am not highly suspicious for pulmonary molybdenum, vascular compromise including thoracic dissection and aortic aneurysm. Am also not highly suspicious for sepsis or infectious etiology. Will obtain work-up which consists of laboratory values, EKG, chest x-ray, and at least 2 sets of cardiac markers. Potential disposition home given heart score of 2.. 11:09 HEART Score: Total Score = 2. ED course: Heart score of 2. Will discharge after second sp3 troponin at 4 hours. Given her symptoms being over 3 days I am not suspicious that it will be positive. Discharged PCP follow-up and outpatient cardiology as needed.. 14:33 ED course: Repeat troponin is negative. Will discharge home with PCP follow-up at this sp3 time.. 01/14 09:53 Order name: Basic Metabolic Panel bp 01/14 09:53 Order name: CBC with Diff bp 01/14 09:53 Order name: LFT's bp 01/14 09:53 Order name: Magnesium bp 01/14 09:53 Order name: NT PRO-BNP; Complete Time: 11:09 bp 01/14 09:53 Order name: PT-INR; Complete Time: 14:06 bp 01/14 09:53 Order name: Troponin (emerg Dept Use Only); Complete Time: 11:09 bp 01/14 09:53 Order name: XRAY Chest (1 view); Complete Time: 14:06 bp 01/14 09:53 Order name: Basic Metabolic Panel; Complete Time: 11:09 EDMS 01/14 09:53 Order name: CBC with Automated Diff; Complete Time: 11:09 EDMS 01/14 09:53 Order name: Liver (Hepatic) Function; Complete Time: 11:09 EDMS 01/14 09:53 Order name: Magnesium; Complete Time: 11:09 EDMS 01/14 11:10 Order name: Troponin (emerg Dept Use Only) sp3 01/14 11:11 Order name: Troponin (Emerg Dept Use Only); Complete Time: 14:33 EDMS 01/14 09:53 Order name: EKG; Complete Time: 09:53 bp 01/14 09:53 Order name: Cardiac monitoring; Complete Time: 09:53 bp 01/14 09:53 Order name: EKG - Nurse/Tech; Complete Time: 09:53 bp 01/14 09:53 Order name: IV Saline Lock; Complete Time: 10:34 bp 01/14 09:53 Order name: Labs collected and sent; Complete Time: 10:34 bp 01/14 09:53 Order name: O2 Per Protocol; Complete Time: 09:53 bp 01/14 09:53 Order name: O2 Sat Monitoring; Complete Time: 09:53 bp Administered Medications: 10:45 Drug: NS 0.9% 500 ml Route: IV; Rate: bolus; Site: right forearm; bp 14:56 Follow up: IV Status: Completed infusion; IV Intake: 500ml bp Disposition Summary: 01/14/21 14:33 Discharge Ordered Location: Home sp3 Condition: Stable sp3 Diagnosis - Chest pain, unspecified sp3 Followup: sp3 - With: Private Physician - When: - Reason: Recheck today's complaints Discharge Instructions: - Discharge Summary Sheet sp3 - Nonspecific Chest Pain, Adult sp3 Forms: - Medication Reconciliation Form sp3 - Thank You Letter sp3 - Antibiotic Education sp3 - Prescription Opioid Use sp3 Signatures: Dispatcher [employer] EDLia Mcdowell RN RN aa5 Jared Carias RN RN bp Larisa Yung MD MD sp3
--- NOTE | 2021-01-14 14:34 | ER ---
Nurse's Notes [facility] Name: Tracey Rodriguez Age: 65 yrs Sex: Female : 1955 Arrival Date: 01/14/2021 Time: 09:17 Bed 8 Private MD: Diagnosis: Chest pain, unspecified Presentation: 01/14 09:19 Chief complaint: Patient states: "my left arm started hurting 1 week ago but this aa5 morning my chest is burning and the left side of my back started hurting (left scapular area)". Pt states "I also have acid reflux but my doctor said to come to get my heart checked". Pt denies nausea/vomiting, denies SOB/cough. 09:19 Onset of symptoms was January 14, 2021. aa5 09:19 Acuity: ANUJA 2 aa5 09:19 Method Of Arrival: Wheelchair aa5 09:19 Coronavirus screen: At this time, the client does not indicate any symptoms associated aa5 with coronavirus-19. Ebola Screen: No symptoms or risks identified at this time. Initial Sepsis Screen: Does the patient meet any 2 criteria? No. Patient's initial sepsis screen is negative. Does the patient have a suspected source of infection? No. Patient's initial sepsis screen is negative. Risk Assessment: Do you want to hurt yourself or someone else? Patient reports no desire to harm self or others. Triage Assessment: 09:30 General: Appears in no apparent distress. uncomfortable, obese, Behavior is bp cooperative, appropriate for age, anxious. Pain: Complains of pain in left arm. EENT: No deficits noted. Neuro: Level of Consciousness is awake, alert, obeys commands, Oriented to Appropriate for age. Cardiovascular: Rhythm is sinus rhythm. Respiratory: Airway is patent Respiratory effort is even, unlabored, Respiratory pattern is regular, symmetrical. GI: No signs and/or symptoms were reported involving the gastrointestinal system. : No signs and/or symptoms were reported regarding the genitourinary system. Derm: No deficits noted. Musculoskeletal: No deficits noted. Historical: - Allergies: 09:20 anti-inflammatory (all); aa5 09:20 Ciprofloxacin; aa5 09:20 fluoroquinolones; aa5 09:20 Levaquin; aa5 09:20 Sulfa (Sulfonamide Antibiotics); aa5 - PMHx: 09:20 Diverticulitis; hiatal hernia; Hypoglycemic; Hypothyroidism; ibs; throat erosion; UTI; aa5 - PSHx: 09:20 Tubal ligation; Cholecystectomy; Carpal Tunnel Repair; aa5 - Immunization history:: Client reports having NOT received the Covid vaccine. - Social history:: Smoking status: Patient denies any tobacco usage or history of. Screenin:30 Abuse screen: Denies threats or abuse. Denies injuries from another. Nutritional bp screening: No deficits noted. Tuberculosis screening: No symptoms or risk factors identified. Fall Risk None identified. Assessment: 09:30 General: SEE TRIAGE NOTE. bp 10:47 Reassessment: No changes from previously documented assessment. Patient and/or family bp updated on plan of care and expected duration. Pain level reassessed. Patient is alert, oriented x 3, equal unlabored respirations, skin warm/dry/pink. 12:12 Reassessment: REPEAT TROP DUE AT 1430 PRIOR TO DISPO DECISION. bp 13:57 Reassessment: Patient appears in no apparent distress at this time. No changes from bp previously documented assessment. REPEAT TROP DRAWN/SENT. 14:54 Reassessment: PT D/C HOME AMBULATORY, DX WITH NONSPECIFIC CHEST PAIN. bp Vital Signs: 09:19 BP 178 / 94; Pulse 88; Resp 18 S; Temp 98.2(O); Pulse Ox 95% on R/A; Weight 92.08 kg aa5 (R); Height 5 ft. 3 in. (160.02 cm) (R); Pain 5/10; 09:57 BP 169 / 95; Pulse 78; Resp 19; Pulse Ox 99% on R/A; mh5 10:34 BP 140 / 78; Pulse 62; Resp 16; Pulse Ox 98% on R/A; mh5 12:12 BP 148 / 99; Pulse 54; Resp 13; Pulse Ox 95% ; bp 14:03 BP 142 / 96; Pulse 70; Resp 14; Pulse Ox 97% on R/A; mh5 14:54 BP 135 / 83; Pulse 64; Resp 14; Temp 98.5; Pulse Ox 96% ; bp 09:19 Body Mass Index 35.96 (92.08 kg, 160.02 cm) aa5 ED Course: 09:17 Patient arrived in ED. mr 09:19 Arm band placed on Patient placed in an exam room, on a stretcher. aa5 09:20 Patient has correct armband on for positive identification. Placed in gown. Bed in low aa5 position. Call light in reach. Side rails up X2. awake overnight monitor on. Pulse ox on. NIBP on. 09:24 Larisa Yung MD is Attending Physician. sp3 09:27 Jared Carias, RN is Primary Nurse. bp 09:30 Patient maintains SpO2 saturation greater than 95% on room air. bp 09:32 Triage completed. aa5 09:46 Warm blanket given. mh5 09:46 EKG done, by ED staff, reviewed by Larisa Yung MD. mh5 10:30 Inserted saline lock: 22 gauge in right forearm, using aseptic technique. Blood bp collected. 10:33 CBC with Automated Diff Sent. mh5 10:33 Liver (Hepatic) Function Sent. 5 10:33 Magnesium Sent. mh5 10:33 Basic Metabolic Panel Sent. 5 10:33 Basic Metabolic Panel Sent. 5 10:33 CBC with Diff Sent. 5 10:33 LFT's Sent. 5 10:33 Magnesium Sent. 5 10:33 NT PRO-BNP Sent. 5 10:33 PT-INR Sent. 5 10:33 Troponin (emerg Dept Use Only) Sent. 5 10:34 Initial lab(s) drawn, by ED staff, sent to lab. 5 10:52 XRAY Chest (1 view) In Process Unspecified. EDAK 14:01 Troponin (Emerg Dept Use Only) Sent. [facility] 14:01 Troponin (emerg Dept Use Only) Sent. 5 14:56 No provider procedures requiring assistance completed. IV discontinued, intact, bp bleeding controlled, No redness/swelling at site. Pressure dressing applied. Administered Medications: 10:45 Drug: NS 0.9% 500 ml Route: IV; Rate: bolus; Site: right forearm; bp 14:56 Follow up: IV Status: Completed infusion; IV Intake: 500ml bp Intake: 14:56 IV: 500ml; Total: 500ml. bp Outcome: 14:33 Discharge ordered by . sp3 14:56 Discharged to home ambulatory. bp 14:56 Condition: stable 14:56 Discharge instructions given to patient, Instructed on discharge instructions, follow up and referral plans. Demonstrated understanding of instructions, follow-up care. 14:57 Patient left the ED. bp Signatures: Dispatcher [employer] Germania James Audri, RN RN [email or web address] Mirna Vazquez Brian, RN RN Larisa Lawrence MD MD sp3
[2021-01-14 15:10] VITALS: BP 135/83; TEMP 98.5; O2SAT 96
== END 2021-01-14 14:57 | disposition home or self-care (01) ==
LOC: ER 09:13
DX: R07.9 Chest pain, unspecified (principal); Z88.1 Allergy status to other antibiotic agents; Z88.2 Allergy status to sulfonamides
CPT/HCPCS: 93005; 85025; 80048; 36415; 83735; 85610; 80076; 84484 ×2; 83880; 71045; 96360; 99285; J7040

== ENCOUNTER 2021-03-06 06:19 | Emergency (ER) | payer OTHER ==
--- OUTSIDE RECORDS SUMMARY | 2021-03-06 06:22 | XMS REPORT | Continuity of Care Document ---
:1955 Author Organization [facility] t Address [address] [place] [address] Care Team Providers Name Role Phone GISEL Attending Clinician Unavailable Huma Attending Clinician [phone] VALERY Attending Clinician Unavailable HERBERT SHANNON Attending Clinician Unavailable GISEL Admitting Clinician Unavailable Payers Payer Name Policy Type Policy Number Effective Date Expiration Date S giselle [employer] (POS) [id number] 2020 00:00:00 Problems This patient has no known problems. Allergies, Adverse Reactions, Alerts Allergy Allergy Status Severity Reaction(s) Onset Inactive Treating Comm ents Source Name Type Date Date Clinician ANTI DA Active U 2017-03 [facility] INFLAMMA 0-01 [place] [facility] PO 00:00: d MEDS 00 [facility] ciproflo DA Active 2017-03 [facility] xacin 0-01 [place] 00:00: d 00 [facility] levoflox DA Active 2017-03 [facility] acin 0-01 [place] 00:[facility]: d [facility] Medications This patient has no known medications. Procedures This patient has no known procedures. Encounters Start End Encounter Admission Attending Care Care Encounter Source Date/Time Date/Time Type Type Clinicians Facility Department ID 2021-03-04 2021-03-04 Outpatient GISEL [facility] [id number] [place] 02:40:00 02:40:00 [facility] 2021-03-04 2021-03-04 Outpatient Huma [facility] [id number] 00:00:00 00:00:00 [place] [id number] 2021-03-04 2021-03-04 Outpatient Finn, [facility] [id number] 00:00:00 00:00:00 [place] [id number] 2021-02-25 2021-02-25 Outpatient Finn, [facility] [id number] 00:00:00 00:00:00 [place] [id number] 2021-01-14 2021-01-14 Outpatient W[facility]ERS_S [facility] [id number] [place] 05:43:00 05:43:00 1018 [facility] 2021-01-14 2021-01-14 Outpatient [place] [id number] [place] 05:43:00 05:43:00 1129 [facility] 2021-01-14 2021-01-14 Outpatient Finn, [facility] [id number] 00:00:00 00:00:00 [place] [id number] 2021-01-14 2021-01-14 Outpatient Finn, [facility] [id number] 00:00:00 00:00:00 [place] [id number] 2020-10-16 2020-10-16 Outpatient [facility] [id number] [place] 02:24:00 02:24:00 0720 [facility] 2020-10-16 2020-10-16 Outpatient [facility] [id number] [place] 02:24:00 02:24:00 0818 [facility] 2020-10-16 2020-10-16 Outpatient Finn, [facility] [id number] 00:00:00 00:00:00 [place] [id number] 2020-09-28 2020-09-28 Outpatient [facility] [id number] [place] 12:14:00 12:14:00 0702 [facility] 2020-09-28 2020-09-28 Outpatient Finn, [facility] [id number] 00:00:00 00:00:00 [place] [id number] 2020-09-28 2020-09-28 Outpatient Finn, [facility] [id number] 00:00:00 00:00:00 [place] [id number] 2020-08-30 2020-08-30 Outpatient [facility] [id number] [place] 05:28:00 05:28:00 0603 [facility] 2020-08-26 2020-08-26 Outpatient [facility] [id number] [place] 01:01:00 01:01:00 0530 [facility] 2020-08-20 2020-08-20 Outpatient [facility] [id number] [place] 05:07:00 05:07:00 0524 [facility] 2020-08-20 2020-08-20 Outpatient Finn, [facility] [id number] 00:00:00 00:00:00 [place] [id number] 2020-08-16 2020-08-16 Outpatient SUSTACHE, [facility] [id number] [place] 00:00:00 00:00:[id number] 2020-08-13 2020-08-13 Outpatient [facility] [id number] [place] 04:15:00 04:15:00 0517 [facility] 2020-08-13 2020-08-13 Outpatient Finn, [facility] [id number] 00:00:00 00:00:00 [place] [id number] 2020-07-26 2020-07-26 Outpatient [facility]ERS[facility] [id number] [place] 05:04:00 05:04:00 0429 [facility] 2020-07-26 2020-07-26 Outpatient Huma [facility] [id number] 00:00:00 00:00:00 [place] [id number] 2020-07-24 2020-07-24 Outpatient SUSTACHE, [facility] [id number] [place] 00:00:00 00:00:00 SHIELA [id number] 2020-07-23 2020-07-23 Emergency E [id number] [id number] [facility] 16:54:00 16:54:00 2020-03-09 2020-03-09 Outpatient SHIVA, [facility] [id number] [facility] 11:08:00 23:59:00 LUCIEN 2018-07-28 2018-07-28 Outpatient [facility] [id number] [facility] 01:39:00 01:39:00 Results Test Description Test Time Test Comments Results Result Comments Source SURG 2018-01-01 11:22:00 --------RUN DATE: 01/01/18 [facility] - LAB *LIVE* PAGE 1 RUN TIME: 1122 Specimen Inquiry RUN USER: INTERFACE --------PATIENT: BOZENA MARSH LOC: [facility]A Cr #: [id number] AGE/SX: 62/F ROOM: RE12/31/17REG DR: Raz Gaspar III : 57 BED: DIS: STATUS: [facility] TLOC: -------- SPEC #: [id number] RECD: 12/31/17 STATUS: HENRY DANNY #: [id number] SHYANN: 12/31/[address]: Raz Gaspar III, MD ENTERED: 12/31/17 SP TYPE: SURG OTHR DR: No Primary or Family PhysicianORDERED: SURG PATH LVL 1, SURG PATH LVL 4 COPIES TO: No Primary [place] [address] [facility] [address] [place] [address] HISTOLOGY: TISSUE ID BLK PCS ANAIS LEV PROCEDURE DISPOSITION ____ ___ ___ ___ NASAL TURBINATE A 1 1 NASAL SEPTUM, N B 1 1 PROCEDURES: SURG PATH LVL 1 (01/01/18) SURG PATH LVL 4 (01/01/18) TISSUES: A. NASAL TURBINATE, NOS - BILATERAL INFERIOR TURBINATES B. NASAL SEPTUM, NOS - SEPTUM CPT CODES CPT CODE(S): 08753 , 54190 , , , , , FINAL DIAGNOSIS A. Inferior turbinate, bilateral, endoscopic sinus surgery: SINUS CONTENTS CONSISTENT WITH CHRONIC SINUSITIS B. Nasal septum, septoplasty: BONE AND CARTILAGE (GROSS ONLY) GROSS DESCRIPTION A. Bilateral inferior turbinates. Received in formalin are irregular fragments of sauceda-brown soft tissue admixed with dark brown blood clots, 2.7 x 1.8 x 1.0 cm in aggregate. Servomechanism Designer sections submitted as A. B. Septum. Received in formalin are multiple irregular fragments of cartilage CONTINUED ON NEXT PAGE --------RUN DATE: 01/01/18 [facility] - LAB *LIVE* PAGE 2 RUN TIME: 1122 Specimen Inquiry RUN USER: INTERFACE --------SPEC #: [id number] PATIENT: BOZENA MARSH #[id number] (Continued) GROSS DESCRIPTION (Continued) and bones, 5.0 x 3.5 x 0.7 cm in aggregate. The specimen is photographed for gross identification only. ba/nr Grossing performed at [facility] Pathology, [address], [address], [place] [address]. Field Crop Farm Worker: Ralph Dash M.D. MICROSCOPIC DESCRIPTION A. Bilateral inferior turbinates. Fragments of respiratory epithelium lined mucosa. There are benign mucus glands and a chronic inflammatory infiltrate. Fragments of unremarkable cartilage and bone present. No evidence of malignancy. B. Septum. For gross identification only. /doug Signed SIGNATURE ON FILE MarkelafuaKel Thompson 01/01/18 1122 -------- END OF REPORT
[2021-03-06 07:20] LABS: Absolute Lymphocytes (CBC) 1.3 K/uL (0.7-4.9); Basophils % 0.7 % (0-1.3); Hematocrit 48.9 % (36.0-45.0); Lymphocytes % 20.3 % (15.3-44.8); MPV 8.8 fL (7.6-11.3)
[2021-03-06 07:21] LABS: Protime INR 0.99
[2021-03-06 07:39] LABS: ALT/SGPT 33 U/L (12-78); AST/SGOT 24 U/L (15-37); Albumin 3.6 g/dL (3.4-5.0); Alkaline Phosphatase 83 U/L (45-117); BUN Blood Urea Nitrogen 12 mg/dL (7-18); Bicarbonate 23 mmol/L (21-32); Bilirubin Direct 0.2 mg/dL (0-0.2); Glucose Level 109 mg/dL (74-106); NT PRO-BNP 19 pg/mL (<125); Protein, Total 7.2 g/dL (6.4-8.2); Sodium Level 136 mmol/L (136-145); Troponin (Emerg Dept Use Only) < 0.02 ng/mL (0.0-0.045)
[2021-03-06] MEDS ORDERED: ONDANSETRON 4 MG/2 ML VIAL ONE (07:48)
[2021-03-06] MEDS ORDERED: NA CHLORIDE 0.9% 1,000 ML ONE (07:48)
--- NOTE | 2021-03-06 08:02 | RAD REPORT ---
EXAM DESCRIPTION: Luis Single View03/06/2021 7:52 am CLINICAL HISTORY: Chest pain COMPARISON: December 2020 FINDINGS: The lungs appear clear of acute infiltrate. The heart is normal size IMPRESSION: No acute abnormalities displayed
--- NOTE | 2021-03-06 08:28 | RAD REPORT ---
EXAM DESCRIPTION: CT - Abdomen Pelvis Wo Contrast - 03/06/2021 7:46 am CLINICAL HISTORY: Abdominal pain COMPARISON: June 2020 TECHNIQUE: Computed axial tomography of the abdomen and pelvis was obtained. IV and oral contrast we re not requested. All CT scans are performed using dose optimization technique as appropriate and may include automated exposure control or mA/KV adjustment according to patient size. FINDINGS: The evaluation of solid organs, vessels and bowel is limited secondary to the lack of con trast administration. Several hepatic cysts. Spleen, pancreas and adrenals grossly normal. Parapelvic renal cysts. Small nonobstructing right renal calculus. Cholecystectomy Small umbilical hernia Normal appendix. Diverticula stem from the colon. Minimal stranding adjacent to the descending colon. IMPRESSION: Minimal diverticulitis descending colon
[2021-03-06 09:14] LABS: Urine Blood Negative (Negative); Urine Glucose Negative (Negative); Urine Protein Negative (Negative); Urine Specific Gravity >=1.030 (1.005-1.030); Urine pH 5.5 (5.0-7.0)
--- NOTE | 2021-03-06 09:22 | EDPHYS ---
Physician Documentation [facility] Name: Tracey Rodriguez Age: 65 yrs Sex: Female : 1955 Arrival Date: 03/06/2021 Time: 06:23 Bed 13 Private MD: ED Physician Dylon Palma HPI: 03/06 06:39 This 65 yrs old Female presents to ER via Ambulatory with complaints of Pain All Over, kb Nausea/Vomiting, Dizziness. 06:39 The patient presents to the emergency department with nausea, diarrhea, abdominal pain. kb Onset: The symptoms/episode began/occurred 5 day(s) ago. Possible causes: unknown. The symptoms are aggravated by nothing. The symptoms are alleviated by nothing. Associated signs and symptoms: Pertinent positives: abdominal pain, diarrhea, nausea. Severity of symptoms: At their worst the symptoms were mild moderate in the emergency department the symptoms are unchanged. The patient has not experienced similar symptoms in the past. The patient has been recently seen by a physician: the patient's primary care provider, 2 week(s) ago, with different complaint(s), and apparently was diagnosed with strep. Pt reports malaise, bodyaches, headache, lightheadedness, nausea, diarrhea, LLQ pain, chest pain ("I have this sometimes because I have a hiatal hernia.") and back pain that started 5 days ago. States she always has diarrhea due to IBS and it is unchanged. Denies fever. Recently completed z-pack for strep. States she feels dehydrated. Historical: - Allergies: 08:05 Ciprofloxacin; al4 08:05 Levaquin; al4 08:05 anti-inflammatory (all); al4 08:05 fluoroquinolones; al4 08:05 Sulfa (Sulfonamide Antibiotics); al4 - Home Meds: 08:03 Protonix Oral [Active]; al4 - PSHx: 08:03 Ligation of fallopian tube; Colectomy; al4 - Immunization history:: Client reports having NOT received the Covid vaccine. - Social history:: Patient/guardian denies using tobacco products, Smoking status: Patient denies any tobacco usage or history of. ROS: 06:38 Respiratory: Negative for shortness of breath, cough, wheezing, and pleuritic chest kb pain. 06:38 Constitutional: Positive for body aches, fatigue, malaise, Negative for fever. 06:38 Abdomen/GI: Positive for abdominal pain, nausea, diarrhea, Negative for vomiting. 06:38 Neuro: Positive for dizziness, headache. 06:38 All other systems are negative. Exam: 06:38 Constitutional: This is a well developed, well nourished patient who is awake, alert, kb and in no acute distress. Head/Face: Normocephalic, atraumatic. ENT: Moist Mucous membranes Cardiovascular: Regular rate and rhythm with a normal S1 and S2. No gallops, murmurs, or rubs. No pulse deficits. Respiratory: Respirations even and unlabored. No increased work of breathing. Talking in full sentences Skin: Warm, dry with normal turgor. Normal color. MS/ Extremity: Pulses equal, no cyanosis. Neurovascular intact. Full, normal range of motion. Neuro: Awake and alert, GCS 15, oriented to person, place, time, and situation. Moves all extremities. Normal gait. Psych: Awake, alert, with orientation to person, place and time. Behavior, mood, and affect are within normal limits. 06:38 Abdomen/GI: Inspection: abdomen appears normal, Bowel sounds: normal, Palpation: soft, in all quadrants, mild abdominal tenderness, in the left lower quadrant. 07:26 ECG was reviewed by the Attending Physician. Vital Signs: 06:30 BP 139 / 66; Pulse 90; Resp 20; Temp 98.7; Pulse Ox 98% on R/A; da3 07:37 BP 139 / 87 Supine; Pulse 64; al4 07:37 BP 145 / 87 Sitting; Pulse 73; al4 07:37 BP 148 / 106; Pulse 79; al4 08:36 BP 159 / 86 LA Supine; Pulse 85 MON; Resp 15 S; Pulse Ox 99% on R/A; al4 09:19 BP 141 / 82 Supine; Pulse 64; Resp 18 S; Temp 98.0; Pulse Ox 96% ; al4 10:00 BP 142 / 86; Pulse 59; Resp 15 S; Pulse Ox 98% on R/A; al4 MDM: 06:31 Patient medically screened. kb 06:37 Data reviewed: vital signs, nurses notes. Data interpreted: Pulse oximetry: on room air kb is 98 %. Interpretation: normal. 09:21 Counseling: I had a detailed discussion with the patient and/or guardian regarding: the kb historical points, exam findings, and any diagnostic results supporting the discharge/admit diagnosis, lab results, radiology results, the need for outpatient follow up, a family practitioner, to return to the emergency department if symptoms worsen or persist or if there are any questions or concerns that arise at home. 09:27 ED course: pt refuses flu and covid tests. kb 03/06 06:36 Order name: Basic Metabolic Panel; Complete Time: 07:40 kb 03/06 06:36 Order name: CBC with Diff; Complete Time: 07:26 kb 03/06 06:36 Order name: LFT's; Complete Time: 07:40 kb 03/06 06:36 Order name: Magnesium; Complete Time: 07:40 kb 03/06 06:36 Order name: NT PRO-BNP; Complete Time: 07:40 kb 03/06 06:36 Order name: PT-INR; Complete Time: 07:26 kb 03/06 06:36 Order name: Troponin (emerg Dept Use Only); Complete Time: 07:40 kb 03/06 06:36 Order name: XRAY Chest (1 view); Complete Time: 08:05 kb 03/06 07:30 Order name: Abdomen ; Complete Time: 08:29 EDMS 03/06 09:15 Order name: Urine Dipstick-Ancillary; Complete Time: 09:16 EDMS 03/06 06:36 Order name: EKG; Complete Time: 06:37 kb 03/06 06:36 Order name: Cardiac monitoring; Complete Time: 07:27 kb 03/06 06:36 Order name: EKG - Nurse/Tech; Complete Time: 07:27 kb 03/06 06:36 Order name: IV Saline Lock; Complete Time: 07:05 kb 03/06 06:36 Order name: Labs collected and sent; Complete Time: 07:05 kb 03/06 06:36 Order name: O2 Per Protocol; Complete Time: 07:06 kb 03/06 06:36 Order name: O2 Sat Monitoring; Complete Time: 07:06 kb 03/06 06:36 Order name: Orthostatics; Complete Time: 08:02 kb 03/06 07:41 Order name: Urine Dipstick-Ancillary (obtain specimen); Complete Time: 09:15 kb EC:26 Rate is 68 beats/min. Rhythm is regular. Left axis deviation noted. TX interval is kb normal at 130 msec. QRS interval is normal at 76 msec. QT interval is normal at 382 msec. Administered Medications: 08:01 Drug: NS 0.9% 1000 ml Route: IV; Rate: 1000 ml; Site: right forearm; al4 10:35 Follow up: Response: No adverse reaction; IV Status: Completed infusion jd3 08:01 Drug: Zofran (Ondansetron) 4 mg Route: IVP; Site: right forearm; al4 09:25 Follow up: Response: No adverse reaction al4 Disposition Summary: 03/06/21 09:22 Discharge Ordered Location: Home kb Condition: Stable kb Diagnosis - Volume depletion, unspecified kb - Diverticulitis of intestine, part unspecified, without perforation or abscess kb without bleeding Followup: kb - With: Emergency Department - When: As needed - Reason: Worsening of condition Followup: kb - With: Private Physician - When: 2 - 3 days - Reason: Recheck today's complaints, Continuance of care, Re-evaluation by your physician Discharge Instructions: - Discharge Summary Sheet kb - Diverticulitis, [id number]-[id number] kb - Dehydration, Adult, [id number]-[id number] kb Forms: - Medication Reconciliation Form kb - Thank You Letter kb - Antibiotic Education kb - Prescription Opioid Use kb Prescriptions: - Augmentin 875-125 mg Oral Tablet - take 1 tablet by ORAL route every 12 hours for 10 days; 20 tablet; Refills: 0, kb Product Selection Permitted - Flagyl 500 mg Oral Tablet - take 1 tablet by ORAL route every 8 hours for 10 days; 30 tablet; Refills: 0, kb Product Selection Permitted - Zofran 4 mg Oral Tablet - take 1 tablet by ORAL route every 6 hours As needed; 20 tablet; Refills: 0, kb Product Selection Permitted Signatures: Dispatcher [employer] EDIL Brigitte Wilkinson, [employer] ADMINISTRATOR-Fermin Bartlett RN RN [email or web address] Estevan Gordon Jonathon RN jd3 Corrections: (The following items were deleted from the chart) 06:34 06:33 PMHx: Diverticulitis; da3 da3 06:34 06:33 PMHx: Hypoglycemic; da3 da3 06:34 06:33 PMHx: Hypothyroidism; da3 da3 06:34 06:33 PMHx: UTI; da3 da3 06:34 06:33 PMHx: hiatal hernia; da3 da3 06:34 06:33 PMHx: throat erosion; da3 da3 06:34 06:33 PMHx: ibs; da3 da3 06:34 06:33 PSHx: tubal ligation; da3 da3 06:34 06:33 PSHx: Cholecystectomy; da3 da3 06:34 06:33 PSHx: carpal tunnel repair; da3 da3 06:42 06:39 Pt reports malaise, bodyaches, headache, lightheadedness, nausea, diarrhea, LLQ kb pain, chest pain and back pain that started 5 days ago. States she always has diarrhea due to IBS and it is unchanged. Denies fever. Recently completed z-pack for strep. States she feels dehydrated. kb 07:30 06:37 Abdomen Pelvis W Con+CT.RAD.BRZ ordered. EDMS EDMS 08:16 06:33 Allergies: Ciprofloxacin [Inactive]; da3 al4 08:16 06:33 Allergies: Levaquin [Inactive]; da3 al4 08:16 06:33 Allergies: anti-inflammatory (all) [Inactive]; da3 al4 08:16 06:33 Allergies: fluoroquinolones [Inactive]; da3 al4 08:16 06:33 Allergies: Sulfa (Sulfonamide Antibiotics) [Inactive]; da3 al4 08:16 08:03 PSHx: gall bladder removal; al4 al4
--- NOTE | 2021-03-06 09:22 | ER ---
Nurse's Notes [facility] Name: Tracey Rodriguez Age: 65 yrs Sex: Female : 1955 Arrival Date: 03/06/2021 Time: 06:23 Bed 13 Private MD: Diagnosis: Volume depletion, unspecified;Diverticulitis of intestine, part unspecified, without perforation or abscess without bleeding Presentation: 03/06 06:30 Chief complaint: Patient states: general malaise, weak. Coronavirus screen: Vaccine da3 status: Patient reports being unvaccinated. Ebola Screen: No symptoms or risks identified at this time. Initial Sepsis Screen: Does the patient meet any 2 criteria? No. Patient's initial sepsis screen is negative. Initial Sepsis Screen: Does the patient have a suspected source of infection? No. Patient's initial sepsis screen is negative. Risk Assessment: Do you want to hurt yourself or someone else? Patient reports no desire to harm self or others. Onset of symptoms was February 27, 2021. 06:30 Method Of Arrival: Ambulatory da3 06:30 Acuity: ANUJA 3 bb Triage Assessment: 06:34 General: Appears in no apparent distress. comfortable. da3 09:01 General: Behavior is calm, cooperative, appropriate for age. al4 Historical: - Allergies: 08:05 Ciprofloxacin; al4 08:05 Levaquin; al4 08:05 anti-inflammatory (all); al4 08:05 fluoroquinolones; al4 08:05 Sulfa (Sulfonamide Antibiotics); al4 - Home Meds: 08:03 Protonix Oral [Active]; al4 - PSHx: 08:03 Ligation of fallopian tube; Colectomy; al4 - Immunization history:: Client reports having NOT received the Covid vaccine. - Social history:: Patient/guardian denies using tobacco products, Smoking status: Patient denies any tobacco usage or history of. Screenin:48 Abuse screen: Denies threats or abuse. Nutritional screening: No deficits noted. al4 Tuberculosis screening: No symptoms or risk factors identified. Fall Risk No fall in past 12 months (0 pts). IV access (20 points). Ambulatory Aid- None/Bed Rest/Nurse Assist (0 pts). Gait- Normal/Bed Rest/Wheelchair (0 pts) Mental Status- Oriented to own ability (0 pts). Total Cullen Fall Scale indicates No Risk (0-24 pts). Assessment: 07:41 General: Appears in no apparent distress. comfortable. Pain: Quality of pain is al4 described as pins and needles. 08:25 Neuro: Level of Consciousness is awake, alert, obeys commands, Oriented to person, al4 place, time, situation. Cardiovascular: Heart tones present Capillary refill < 3 seconds Patient's skin is warm and dry. Rhythm is sinus rhythm. Respiratory: Airway is patent Respiratory effort is even, unlabored, Respiratory pattern is regular, symmetrical. GI: Abdomen is non-distended, Bowel sounds present X 4 quads. Abd is soft Abdomen is tender to palpation. : No signs and/or symptoms were reported regarding the genitourinary system. EENT: No signs and/or symptoms were reported regarding the EENT system. Derm: No signs and/or symptoms reported regarding the dermatologic system. Musculoskeletal: No signs and/or symptoms reported regarding the musculoskeletal system. 08:25 Respiratory: Reports shortness of breath "with both resting and exertion" al4 09:30 Reassessment: No changes from previously documented assessment. Patient is alert, al4 oriented x 3, equal unlabored respirations, skin warm/dry/pink. 10:31 Reassessment: No changes from previously documented assessment. Patient is alert, al4 oriented x 3, equal unlabored respirations, skin warm/dry/pink. 10:32 Reassessment: Patient states feeling better. even, steady gait upon discharge. pt is al4 discharged with ride from son in law. . Vital Signs: 06:30 BP 139 / 66; Pulse 90; Resp 20; Temp 98.7; Pulse Ox 98% on R/A; da3 07:37 BP 139 / 87 Supine; Pulse 64; al4 07:37 BP 145 / 87 Sitting; Pulse 73; al4 07:37 BP 148 / 106; Pulse 79; al4 08:36 BP 159 / 86 LA Supine; Pulse 85 MON; Resp 15 S; Pulse Ox 99% on R/A; al4 09:19 BP 141 / 82 Supine; Pulse 64; Resp 18 S; Temp 98.0; Pulse Ox 96% ; al4 10:00 BP 142 / 86; Pulse 59; Resp 15 S; Pulse Ox 98% on R/A; al4 ED Course: 06:23 Patient arrived in ED. wm 06:31 [facility]C [facility] kb 06:31 Dylon Palma MD is Attending Physician. kb 06:33 Triage completed. da3 07:05 Arm band placed on. jd3 07:06 Inserted saline lock: 22 gauge in right forearm, using aseptic technique. Blood ds4 collected. 07:36 Estevan Gordon is Primary Nurse. al4 07:46 Abdomen In Process Unspecified. EDMS 07:52 XRAY Chest (1 view) In Process Unspecified. EDMS 08:29 Patient has correct armband on for positive identification. Bed in low position. Call al4 light in reach. Side rails up X 1. grit removal operator on. Pulse ox on. NIBP on. Door closed. Noise minimized. Warm blanket given. 09:32 No provider procedures requiring assistance completed. al4 10:30 IV discontinued, intact, bleeding controlled, No redness/swelling at site. Pressure al4 dressing applied. Administered Medications: 08:01 Drug: NS 0.9% 1000 ml Route: IV; Rate: 1000 ml; Site: right forearm; al4 10:35 Follow up: Response: No adverse reaction; IV Status: Completed infusion jd3 08:01 Drug: Zofran (Ondansetron) 4 mg Route: IVP; Site: right forearm; al4 09:25 Follow up: Response: No adverse reaction al4 Outcome: 09:22 Discharge ordered by . kb 10:30 Discharged to home ambulatory. al4 10:30 Condition: stable 10:30 Discharge instructions given to patient, Instructed on discharge instructions, follow up and referral plans. medication usage, Demonstrated understanding of instructions, follow-up care, medications. 10:31 Prescriptions given X 3. jd3 10:37 Patient left the ED. al4 Signatures: Dispatcher [employer] EDMS Brigitte Wilkinson FNP-C FNP-Alice Arceo RN RN bb Swanson, Donovan ds4 Bran Norton RN RN jd3 Marsh, Wendy Fermin Blackburn RN RN da3 Estevan Gordon al4 Corrections: (The following items were deleted from the chart) 06:34 06:33 PMHx: Diverticulitis; da3 da3 06:34 06:33 PMHx: Hypoglycemic; da3 da3 06:34 06:33 PMHx: Hypothyroidism; da3 da3 06:34 06:33 PMHx: UTI; da3 da3 06:34 06:33 PMHx: hiatal hernia; da3 da3 06:34 06:33 PMHx: throat erosion; da3 da3 06:34 06:33 PMHx: ibs; da3 da3 06:34 06:33 PSHx: tubal ligation; da3 da3 06:34 06:33 PSHx: Cholecystectomy; da3 da3 06:34 06:33 PSHx: carpal tunnel repair; da3 da3 06:39 06:30 Acuity: ANUJA 4 da3 bb 08:16 06:33 Allergies: Ciprofloxacin [Inactive]; da3 al4 08:16 06:33 Allergies: Levaquin [Inactive]; da3 al4 08:16 06:33 Allergies: anti-inflammatory (all) [Inactive]; da3 al4 08:16 06:33 Allergies: fluoroquinolones [Inactive]; da3 al4 08:16 06:33 Allergies: Sulfa (Sulfonamide Antibiotics) [Inactive]; da3 al4 08:16 08:03 PSHx: gall bladder removal; al4 al4 10:35 09:25 Response: No adverse reaction al4 jd3
[2021-03-06 10:58] VITALS: TEMP 98
[2021-03-06 10:59] VITALS: BP 142/86; O2SAT 98
== END 2021-03-06 10:37 | disposition home or self-care (01) ==
LOC: ER 06:19
DX: E86.9 Volume depletion, unspecified (principal); K57.32 Diverticulitis of large intestine without perforation or abscess without bleeding; Z72.0 Tobacco use; Z88.1 Allergy status to other antibiotic agents; Z88.2 Allergy status to sulfonamides; Z88.8 Allergy status to other drugs, medicaments and biological substances
CPT/HCPCS: 96361; 93005; 85025; 80048; 36415; 83735; 85610; 80076; 81003; 84484; 83880; 74176; 71045; 96374; 99284; J7030; J2405

== ENCOUNTER 2021-03-06 16:20 | Observation (INO) | payer OTHER ==
--- OUTSIDE RECORDS SUMMARY | 2021-03-06 16:24 | XMS REPORT | Continuity of Care Document ---
:1955 Author Organization [facility] t Address [address] [place] [address] Care Team Providers Name Role Phone GISEL Attending Clinician Unavailable Huma Attending Clinician [phone] VALERY Attending Clinician Unavailable ISABEL ALANIS Attending Clinician Unavailable HERBERT SHANNON Attending Clinician Unavailable GISEL Admitting Clinician Unavailable Payers Payer Name Policy Type Policy Number Effective Date Expiration Date Nolan CISNEROS (POS) [id number] 2020 00:00:00 Problems This patient has no [...] PO 00:00: d [facility] Medications This patient has no known medications. Procedures This patient has no known procedures. Encounters Start End Encounter Admission Attending Care Care Encounter Source Date/Time Date/Time Type Type Clinicians Facility Department ID 2021-03-04 2021-03-04 Outpatient GISEL [facility] [id number] [place] 02:40:00 02:40:00 [facility] 2021-03-04 2021-03-04 Outpatient Finn, [facility] [id number] 00:00:00 00:00:00 [place] [id number] 2021-03-04 2021-03-04 Outpatient Finn, [facility] [id number] 00:00:00 00:00:00 [place] [id number] 2021-02-25 2021-02-25 Outpatient Finn, [facility] [id number] 00:00:00 00:00:00 [place] [id number] 2021-01-14 2021-01-14 Outpatient WATERS_S [facility] [id number] [place] 05:43:00 05:43:00 1018 [facility] 2021-01-14 2021-01-14 Outpatient [facility] 2020 [place] 05:43:00 05:43:00 1129 [facility] 2021-01-14 2021-01-14 Outpatient Finn, [facility] [id number] 00:00:00 00:00:00 [place] [id number] 2021-01-14 2021-01-14 Outpatient Finn, [facility] [id number] 00:00:00 00:00:00 [place] [id number] 2020-10-16 2020-10-16 Outpatient [facility] [id number] [place] 02:24:00 02:24:00 0720 [facility] 2020-10-16 2020-10-16 Outpatient [facility] [id number] [place] 02:24:00 02:24:00 0818 [facility] 2020-10-16 2020-10-16 Outpatient Finn, [facility] [id number] 00:00:00 00:00:00 [place] [id number] 2020-09-28 2020-09-28 Outpatient [facility] [id number] [place] 12:14:00 12:14:00 0702 [facility] 2020-09-28 2020-09-28 Outpatient Finn, [facility] [id number] 00:00:00 00:00:00 [place] [id number] 2020-09-28 2020-09-28 Outpatient Finn, [facility] [id number] 00:00:00 00:00:00 [place] [id number] 2020-08-30 2020-08-30 Outpatient [facility] [id number] [place] 05:28:00 05:28:00 0603 [facility] 2020-08-26 2020-08-26 Outpatient [facility] [id number] [place] 01:01:00 01:01:00 0530 [facility] 2020-08-20 2020-08-20 Outpatient [facility] [id number] [place] 05:07:00 05:07:00 0524 [facility] 2020-08-20 2020-08-20 Outpatient Finn, [facility] [id number] 00:00:00 00:00:00 [place] [id number] 2020-08-16 2020-08-16 Outpatient SUSTACHE, [facility] [id number] [place] 00:00:00 00:00:00 SHIELA [id number] 2020-08-13 2020-08-13 Outpatient [facility]ERS_S [facility] [id number] [place] 04:15:00 04:15:00 0517 [facility] 2020-08-13 2020-08-13 Outpatient Finn, [facility] [id number] 00:00:00 00:00:00 [place] [id number] 2020-07-26 2020-07-26 Outpatient HUMA_S [facility] [id number] [place] 05:04:00 05:04:00 0429 [facility] 2020-07-26 2020-07-26 Outpatient Huma [facility] [id number] 00:00:00 00:00:00 [place] [id number] 2020-07-24 2020-07-24 Outpatient SUSTACHE, [facility] [id number] [place] 00:00:00 00:00:00 SHIELA [address] 2020-07-23 2020-07-23 Emergency E ANNABELLE, [facility] [id number] [facility] 16:54:00 18:17:00 NICHELLE 2020-03-09 2020-03-09 Outpatient SHIVA [facility] [id number] [facility] 11:08:00 23:59:00 LUCIEN 2018-07-28 2018-07-28 Outpatient [facility] [id number] [facility] 01:39:00 01:39:00 Results Test Description Test Time Test Comments Results Result Comments Source SURG 2018-01-01 11:22:00 --------RUN DATE: 01/01/18 [facility] - LAB *LIVE* PAGE 1 RUN TIME: 1122 Specimen Inquiry RUN USER: INTERFACE --------PATIENT: BOZENA MARSH LOC: EVA U #: [id number] AGE/SX: 62/F ROOM: RE12/31/17[facility] DR: Raz Gaspar III : 57 BED: DIS: STATUS: [facility] TLOC: -------- SPEC #: [id number]:[id number] RECD: 12/31/17 STATUS: HENRY DANNY #: [id number] SHYANN: 12/31/[address] [facility] [address]: Raz Gaspar III, MD ENTERED: 12/31/17 SP TYPE: SURG OTHR DR: No Primary or Family PhysicianORDERED: SURG PATH LVL 1, SURG PATH LVL 4 COPIES TO: No Primary [place] [address] [facility] [address] [place] [address] HISTOLOGY: TISSUE ID BLK PCS ANAIS LEV PROCEDURE DISPOSITION ____ ___ ___ ___ NASAL TURBINATE A 1 1 NASAL SEPTUM, N B 1 1 PROCEDURES: SURG PATH LVL 1 (01/01/18) SURG PATH LVL 4 (01/01/18) TISSUES: A. NASAL TURBINATE, NOS - BILATERAL INFERIOR TURBINATES B. NASAL SEPTUM, NOS - SEPTUM CPT CODES CPT CODE(S): 00864 , 21925 , , , , , FINAL DIAGNOSIS A. Inferior turbinate, bilateral, endoscopic sinus surgery: SINUS CONTENTS CONSISTENT WITH CHRONIC SINUSITIS B. Nasal septum, septoplasty: BONE AND CARTILAGE (GROSS ONLY) GROSS DESCRIPTION A. Bilateral inferior turbinates. Received in formalin are irregular fragments of sauceda-brown soft tissue admixed with dark brown blood clots, 2.7 x 1.8 x 1.0 cm in aggregate. Community Development Officer sections submitted as Alex Swan. Received in formalin are multiple irregular fragments of cartilage CONTINUED ON NEXT PAGE --------RUN DATE: 01/01/18 [facility] - LAB *LIVE* PAGE 2 RUN TIME: 1121 Specimen Inquiry RUN USER: INTERFACE --------SPEC #: [facility]:[id number] PATIENT: BOZENA MARSH #[id number] (Continued) GROSS DESCRIPTION (Continued) and bones, 5.0 x 3.5 x 0.7 cm in aggregate. The specimen is photographed for gross identification only. ba/nr Grossing performed at [facility], [address] [place] [address], [address], [place], [place] [address]. Hospital Clinic Assistant: Ralph Dash M.D. MICROSCOPIC DESCRIPTION A. Bilateral inferior turbinates. Fragments of respiratory epithelium lined mucosa. There are benign mucus glands and a chronic inflammatory infiltrate. Fragments of unremarkable cartilage and bone present. No evidence of malignancy. B. Septum. For gross identification only. /doug Signed SIGNATURE ON FILE Kel Chatterjee 01/01/18 1122 -------- END OF REPORT
[2021-03-06] MEDS ORDERED: FAMOTIDINE 20 MG/2 ML VIAL IV ONE (17:25)
[2021-03-06] MEDS ORDERED: ONDANSETRON 4 MG/2 ML VIAL ONE (17:25)
[2021-03-06] MEDS ORDERED: NA CHLORIDE 0.9% 500 ML ONE (17:25)
[2021-03-06 18:16] LABS: Absolute Lymphocytes (CBC) 1.2 K/uL (0.7-4.9); Basophils % 0.8 % (0-1.3); Lymphocytes % 14.9 % (15.3-44.8); MPV 9.1 fL (7.6-11.3)
[2021-03-06 18:36] LABS: Albumin 3.8 g/dL (3.4-5.0); Bilirubin Direct 0.2 mg/dL (0-0.2); Bilirubin Total 1.1 mg/dL (0.2-1.0); Potassium 3.8 mmol/L (3.5-5.1); Protein, Total 7.5 g/dL (6.4-8.2)
[2021-03-06] MEDS ORDERED: NA CHLORIDE 0.9% 100 ML ONE ×2 (19:14→20:23)
[2021-03-06] MEDS ORDERED: METOCLOPRAMIDE 10 MG/2mL INJ ONE (19:14)
--- NOTE | 2021-03-06 20:20 | ER ---
Nurse's Notes [facility] Name: Tracey Rodriguez Age: 65 yrs Sex: Female : 1955 Arrival Date: 03/06/2021 Time: 16:24 Bed Treatment Private MD: Diagnosis: Nausea with vomiting, unspecified-intractable;Diverticulitis of large intestine without perforation or abscess without bleeding Presentation: 03/06 16:46 Chief complaint: Patient states: i was given antibiotics this morning here for [facility] diverticulitis. Flagyl and Augmentin; throwing up. I havent eaten but when i eat I throw up; I cant keep anything down. Pt states; "what is the wait? I can't wait; I may go somewhere else". Coronavirus screen: Vaccine status: Patient reports being unvaccinated. Client denies travel out of the [place] in the last 14 days. Ebola Screen: Patient negative for fever greater than or equal to 101.5 degrees Fahrenheit, and additional compatible Ebola Virus Disease symptoms Patient denies exposure to infectious person. Patient denies travel to an Ebola-affected area in the 21 days before illness onset. Initial Sepsis Screen: Does the patient meet any 2 criteria? No. Patient's initial sepsis screen is negative. Does the patient have a suspected source of infection? No. Patient's initial sepsis screen is negative. Risk Assessment: Do you want to hurt yourself or someone else? Patient reports no desire to harm self or others. Onset of symptoms. 16:46 Method Of Arrival: Ambulatory [facility] 16:46 Acuity: ANUJA 3 [facility] Triage Assessment: 16:52 General: Appears in no apparent distress. obese, well developed, well nourished, [facility] Behavior is calm, cooperative, appropriate for age. Pain: Denies pain. Historical: - Allergies: 16:52 anti-inflammatory (all); [facility] 16:52 Ciprofloxacin; [facility] 16:52 fluoroquinolones; [facility] 16:52 Levaquin; [facility] 16:52 Sulfa (Sulfonamide Antibiotics); [facility] - Home Meds: 16:52 Protonix Oral [Active]; [facility] - PSHx: 16:52 Colectomy; Ligation of fallopian tube; [facility] - Immunization history:: Adult Immunizations up to date. - Social history:: Smoking status: Patient denies any tobacco usage or history of. Screenin:52 Abuse screen: Denies threats or abuse. Denies injuries from another. Abuse screen:. [facility] Nutritional screening: No deficits noted. Tuberculosis screening: No symptoms or risk factors identified. Fall Risk None identified. Assessment: 18:19 Reassessment: See triage assessment. ld1 20:17 Reassessment: Patient appears in no apparent distress at this time. Patient and/or ss family updated on plan of care and expected duration. Pain level reassessed. Patient is alert, oriented x 3, equal unlabored respirations, skin warm/dry/pink. awaiting disposition. PT has drank small amount of water and makayla braydon as well as eaten a few bites of saltine cracker. 20:17 Neuro: Level of Consciousness is awake, alert, obeys commands, Oriented to person, ss place, time, situation. Respiratory: Airway is patent Respiratory effort is even, unlabored, Respiratory pattern is regular, symmetrical. 20:35 Reassessment: Yogesh Yang LOSS PREVENTION SUPERVISOR at bedside assessing patient and discussing plans for ss hospitalization. COVID test sent. Awaiting results at this time prior to receiving room assignment. 21:55 Reassessment: Patient appears in no apparent distress at this time. Patient and/or ss family updated on plan of care and expected duration. Pain level reassessed. Patient is alert, oriented x 3, equal unlabored respirations, skin warm/dry/pink. COVID results back. Awaiting room assignment. Vital Signs: 16:46 BP 141 / 91; Pulse 76; Resp 16; Temp 96.8; Pulse Ox 97% ; Weight 93.44 kg; Height 5 ft. [facility] 3 in. (160.02 cm); 18:19 BP 139 / 86; Pulse 77; Resp 17; Pulse Ox 98% on R/A; ld1 19:39 BP 135 / 77; Pulse 80; Resp 18; Temp 97.8(TE); Pulse Ox 97% on R/A; 5 16:46 Body Mass Index 36.49 (93.44 kg, 160.02 cm) [facility] ED Course: 16:24 Patient arrived in ED. 5 16:52 Triage completed. [facility] 17:11 Piter Muhammad PA is PHCP. cp 17:11 Larisa Yung MD is Attending Physician. cp 17:20 Paulina Tovar, DOLORES is Primary Nurse. ld1 18:08 Missed attempt(s): 22 gauge in left forearm. 24 gauge in right. mh5 18:09 Patient has correct armband on for positive identification. Call light in reach. Warm mh5 blanket given. Pulse ox on. NIBP on. 18:16 Inserted saline lock: 24 gauge in left forearm, using aseptic technique. iw 20:17 No provider procedures requiring assistance completed. ss 20:19 Lawrence Mclean MD is Hospitalizing Provider. cp 23:38 Patient admitted, IV remains in place. ss Administered Medications: 18:18 Drug: NS 0.9% 500 ml Route: IV; Rate: bolus; Site: left forearm; ld1 20:19 Follow up: IV Status: Completed infusion; IV Intake: 500ml ss 18:18 Drug: Zofran (Ondansetron) 4 mg Route: IVP; Site: left forearm; ld1 18:18 Follow up: Response: No adverse reaction ld1 18:18 Drug: Pepcid (famotidine) 20 mg Route: IVP; Site: left forearm; ld1 18:18 Follow up: Response: No adverse reaction ld1 19:19 Drug: Reglan (metoCLOPramide) 10 mg Route: IVP; Site: left forearm; ss 20:22 Follow up: Response: No adverse reaction; No change in condition ss 20:21 Not Given (Physician Discretion): metroNIDAZOLE 500 mg 100 ml IVPB once over 30 mins cp 20:21 Not Given (Physician Discretion): Rocephin - (cefTRIAXone) 1 grams IVPB once over 30 cp mins; (mix in 50 mL NS) 20:34 Drug: Zosyn (piperacillin-tazobactam) 3.375 grams Route: IVPB; Infused Over: 60 mins; ss Site: left wrist; 21:34 Follow up: IV Status: Completed infusion; IV Intake: 100ml ss Intake: 20:19 IV: 500ml; Total: 500ml. ss 21:34 IV: 100ml; Total: 600ml. ss Outcome: 20:19 Decision to Hospitalize by Provider. cp 23:38 Admitted to Med/surg via wheelchair. ss 23:38 Condition: good 23:38 Instructed on the need for admit. 23:42 Patient left the ED. ss Signatures: Tracee Mena, RN RN Jailene Perez RN RN ss Page, Corey, PA PA cp Martinez, Maria 5 Paulina Tovar RN RN ld1 Alea Fernandez RN RN jh5 Elizabeth Amaro kc5 Corrections: (The following items were deleted from the chart) 23:41 23:38 Discharged to [facility]
--- NOTE | 2021-03-06 20:20 | EDPHYS ---
Physician Documentation [facility] Name: Tracey Rodriguez Age: 65 yrs Sex: Female : 1955 Arrival Date: 03/06/2021 Time: 16:24 Bed Treatment Private MD: ED Physician Larisa Yung HPI: 03/06 17:30 This 65 yrs old Female presents to ER via Ambulatory with complaints of HOT, Pain All cp Over. 17:30 The patient presents to the emergency department with nausea, that is moderate, cp vomiting, that is intermittent. 17:30 Onset: The symptoms/episode began/occurred today. Associated signs and symptoms: cp Pertinent positives: abdominal pain, diarrhea, Pertinent negatives: fever. Patient reports being seen earlier today for abdominal pain and nausea. Diagnosed with diverticulitis and prescribed oral antibiotics. Patient reports started vomiting at home and has been unable to take oral antibiotics. Historical: - Allergies: 16:52 anti-inflammatory (all); [facility] 16:52 Ciprofloxacin; [facility] 16:52 fluoroquinolones; [facility] 16:52 Levaquin; [facility] 16:52 Sulfa (Sulfonamide Antibiotics); [facility] - Home Meds: 16:52 Protonix Oral [Active]; [facility] - PSHx: 16:52 Colectomy; Ligation of fallopian tube; [facility] - Immunization history:: Adult Immunizations up to date. - Social history:: Smoking status: Patient denies any tobacco usage or history of. ROS: 17:35 Constitutional: Positive for poor PO intake, Negative for body aches, chills, fever. cp 17:35 Eyes: Negative for injury, pain, redness, and discharge. cp 17:35 ENT: Negative for ear pain, sore throat, difficulty swallowing, difficulty handling secretions. 17:35 Cardiovascular: Negative for chest pain. 17:35 Respiratory: Negative for cough, shortness of breath, wheezing. 17:35 Abdomen/GI: Positive for abdominal pain, nausea and vomiting, diarrhea, Negative for constipation, hematemesis, black/tarry stool, rectal bleeding. 17:35 Back: Negative for pain at rest, pain with movement. 17:35 Neuro: Negative for headache, speech changes, weakness. 17:35 All other systems are negative. Exam: 17:40 Constitutional: The patient appears in no acute distress, alert, awake, cp non-diaphoretic, non-toxic, well developed, well nourished. 17:40 Head/Face: Normocephalic, atraumatic. cp 17:40 Eyes: Periorbital structures: appear normal, Conjunctiva: normal, no exudate, no injection, Sclera: no appreciated abnormality, Lids and lashes: appear normal, bilaterally. 17:40 ENT: External ear(s): are unremarkable, Nose: is normal, Mouth: Lips: moist, Oral mucosa: moist, Posterior pharynx: Airway: no evidence of obstruction, patent. 17:40 Chest/axilla: Inspection: normal. 17:40 Cardiovascular: Rate: normal, Rhythm: regular. 17:40 Respiratory: the patient does not display signs of respiratory distress, Respirations: normal, no use of accessory muscles, no retractions, labored breathing, is not present, Breath sounds: are clear throughout, no decreased breath sounds, no stridor, no wheezing. 17:40 Abdomen/GI: Inspection: abdomen appears normal, Bowel sounds: active, all quadrants, Palpation: soft, in all quadrants, mild abdominal tenderness, in all quadrants, rebound tenderness, is not appreciated, voluntary guarding, is not appreciated, involuntary guarding, is not appreciated. 17:40 Back: pain, is absent, ROM is normal. Vital Signs: 16:46 BP 141 / 91; Pulse 76; Resp 16; Temp 96.8; Pulse Ox 97% ; Weight 93.44 kg; Height 5 ft. jh5 3 in. (160.02 cm); 18:19 BP 139 / 86; Pulse 77; Resp 17; Pulse Ox 98% on R/A; ld1 19:39 BP 135 / 77; Pulse 80; Resp 18; Temp 97.8(TE); Pulse Ox 97% on R/A; mh5 16:46 Body Mass Index 36.49 (93.44 kg, 160.02 cm) jh5 MDM: 17:17 Patient medically screened. 18:00 Differential diagnosis: sepsis, electrolyte abnormality, volume depletion. 20:20 Data reviewed: vital signs, nurses notes, lab test result(s). 20:20 Physician consultation: Yogesh Yang was contacted at 20:15, regarding admission, to the medical/surgical unit. patient's condition. 03/06 17:18 Order name: Basic Metabolic Panel; Complete Time: 18:41 cp 03/06 17:18 Order name: CBC with Diff; Complete Time: 18:41 cp 03/06 17:18 Order name: Hepatic Function; Complete Time: 18:41 cp 03/06 17:18 Order name: Lipase; Complete Time: 18:41 cp 03/06 20:21 Order name: COVID-19 (Coronavirus) Document "Date of Onset" if Symptomatic cp 03/06 20:44 Order name: SARS-COV-2 RT PCR EDMS 03/06 17:18 Order name: IV Saline Lock; Complete Time: 17:20 cp 03/06 17:18 Order name: Labs collected and sent; Complete Time: 17:20 cp 03/06 18:42 Order name: PO challenge; Complete Time: 18:46 cp Administered Medications: 18:18 Drug: NS 0.9% 500 ml Route: IV; Rate: bolus; Site: left forearm; ld1 20:19 Follow up: IV Status: Completed infusion; IV Intake: 500ml ss 18:18 Drug: Zofran (Ondansetron) 4 mg Route: IVP; Site: left forearm; ld1 18:18 Follow up: Response: No adverse reaction ld1 18:18 Drug: Pepcid (famotidine) 20 mg Route: IVP; Site: left forearm; ld1 18:18 Follow up: Response: No adverse reaction ld1 19:19 Drug: Reglan (metoCLOPramide) 10 mg Route: IVP; Site: left forearm; ss 20:22 Follow up: Response: No adverse reaction; No change in condition ss 20:21 Not Given (Physician Discretion): metroNIDAZOLE 500 mg 100 ml IVPB once over 30 mins cp 20:21 Not Given (Physician Discretion): Rocephin - (cefTRIAXone) 1 grams IVPB once over 30 cp mins; (mix in 50 mL NS) 20:34 Drug: Zosyn (piperacillin-tazobactam) 3.375 grams Route: IVPB; Infused Over: 60 mins; ss Site: left wrist; 21:34 Follow up: IV Status: Completed infusion; IV Intake: 100ml ss Disposition: 03/07 07:10 Co-signature as Attending Physician, Larisa Yung MD I agree with the assessment and sp3 plan of care. Disposition Summary: 03/06/21 20:19 Hospitalization Ordered Hospitalization Status: Observation cp Provider: Lawrence Mclean cp Location: Telemetry/MedSurg (observation) cp Condition: Stable cp Problem: new cp Symptoms: have improved cp Bed/Room Type: Standard cp Room Assignment: 429(03/06/21 22:44) eb1 Diagnosis - Nausea with vomiting, unspecified - intractable cp - Diverticulitis of large intestine without perforation or abscess without bleeding cp Forms: - Medication Reconciliation Form cp - SBAR form cp Signatures: Dispatcher [employer] EDMS Jailene Perez RN RN ss Piter Muhammad PA PA cp Kimmie Guevara RN RN eb1 Paulina Tovar RN RN ld1 Larisa Yung MD MD sp3 Alea Fernandez RN RN jh5 Corrections: (The following items were deleted from the chart) 03/06 20: 20:21 CORONAVIRUS ordered. EDNE EDMS :44 20:19 cp eb1
[2021-03-06] MEDS ORDERED: PIPERACIL/TAZO 3.375 GM VIAL IV ONE (20:22)
--- NOTE | 2021-03-06 20:47 | P.HP ---
Certification for Inpatient Patient admitted to: Observation With expected LOS: <2 Midnights Patient will require the following post-hospital care: None Practitioner: I am a practitioner with admitting privileges, knowledge of patient current condition, hospital course, and medical plan of care. Services: Services provided to patient in accordance with Admission requirements found in Title 42 Section 412.3 of the Code of Federal Regulations Patient History Date of Service: 03/06/21 Primary Care Provider: Cari Finn Reason for admission: Diverticulitis History of Present Illness: 65-year-old female with history of diverticulitis, GERD presents to the emergency department for abdominal pain. Patient was seen earlier today in the emergency department for similar complaint and was diagnosed with mild descending diverticulitis. Patient was placed on oral Augmentin and Flagyl and discharged, at home patient has been unable to tolerate anything by mouth including her oral antibiotics with frequent vomiting and significant abdominal pain so she returned to the emergency department. Patient had repeat labs which demonstrated white blood cell count 8.3 hemoglobin 16.3 hematocrit 49.0 emergency department provider wishes to admit to observation for further evaluation and management of diverticulitis with intractable vomiting/abdominal pain. Allergies NSAIDS (Non-Steroidal Anti-Inflamma Allergy (Mild, Verified 01/08/20 04:22) Unknown ciprofloxacin Allergy (Verified 01/08/20 04:22) mess with my muscle iodine Allergy (Verified 01/08/20 04:22) Unknown levofloxacin [From Levaquin] Allergy (Verified 01/08/20 04:22) back hurts couldnt get up Home Medications: Acetaminophen [Tylenol] 325 mg PO 6XD PRN 01/08/20 Cholecalciferol (Vitamin D3) [Vitamin D3] 5,000 unit PO DAILY 01/08/20 Echinacea 400 mg PO DAILY 01/08/20 Guaifenesin [Mucinex] 600 mg PO BEDTIME 01/08/20 Levocetirizine Dihydrochloride [Xyzal] 5 mg PO DAILY #30 tablet 01/08/20 Pantoprazole [Protonix Tab*] 40 mg PO DAILY PRN 01/08/20 Thyroid,Pork [Kennel Supervisor Thyroid] 1 tab PO [id number] 01/08/20 Zinc Gluconate [Zinc] 200 mg PO DAILY 01/08/20 - Past Medical/Surgical History Diabetic: No -: Hypothyroidism -: GERD -: Frequent UTI -: Diverticulitis -: Cholecystectomy -: Tubal Ligation -: Carpal Tunnel repair -: sinus surgery Psychosocial/ Personal History: 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 moist/pink, EOMI, Sclerae nonicteric Neck: Supple, 2+ carotid pulse no bruit, No LAD, Without JVD or thyroid abnorma lity Respiratory: Clear to auscultation bilaterally, Normal air movement Cardiovascular: Regular rate/rhythm, Normal S1 S2 Gastrointestinal: Normal bowel sounds, Tenderness (Mild left lower quadrant tenderness) Musculoskeletal: No tenderness Integumentary: No rashes Neurological: Normal gait, Normal speech, Normal strength at 5/5 x4 extr, Normal tone, Normal affect Lymphatics: No axilla or inguinal lymphadenopathy - Studies Laboratory Data (last 24 hrs) 03/06/21 18:05: WBC 8.30 D, Hgb 16.3 H, Hct 49.0 H, Plt Count 224 03/06/21 18:05: Sodium 139, Potassium 3.8, BUN 9, Creatinine 0.95, Glucose 105, Total Bilirubin 1.1 H, AST 21, ALT 32, Alkaline Phosphatase 92, Lipase 109 Assessment and Plan - Plan Assessment: Mild descending diverticulitis with intractable vomiting, abdominal pain GERD Plan: Mild descending diverticulitis with intractable vomiting, abdominal pain: N.p.o. aside from sips of water, ice chips at this time. IV fluid, IV antibiotics with Zosyn at this time as Flagyl is not available and patient has many other allergies. As needed pain medication, advance diet as tolerated. Anticipate clinical improvement over the course of the next 12 to 24 hours. GERD: IV Protonix. DVT PPX: Lovenox Code status: Full Discharge Plan: Home Plan to discharge in: 24 Hours - Advance Directives Does patient have a Living Will: No Does patient have a Durable POA for Healthcare: No - Code Status/Comfort Care Code Status Assessed: Yes (Full code) Critical Care: No Time Spent Managing Pts Care (In Minutes): 55
[2021-03-06 23:53] VITALS: BMI 35.6
[2021-03-07 00:17] VITALS: O2SAT 97
[2021-03-07] MEDS ORDERED: SODIUM CHLORIDE 0.9% 10ML INJ IV PRN (00:17)
[2021-03-07] MEDS ORDERED: ONDANSETRON 4 MG/2 ML VIAL IV PRN (00:17)
[2021-03-07] MEDS: PIPER TAZO 3.375 GM in NA CHLORIDE 0.9% 100 ML IV SCH ×3 (01:48→16:14)
[2021-03-07] MEDS: MORPHINE 2 MG/ML SYR IV PRN ×2 (01:51→22:13)
[2021-03-07] MEDS: NA CHLORIDE 0.9% 1,000 ML IV SCH ×2 (01:52→12:03)
[2021-03-07 02:13] LABS: Urine Appearance CLOUDY (Clear); Urine Bilirubin NEGATIVE (Negative); Urine Blood 1+ (Negative); Urine Color YELLOW (Yellow); Urine Glucose NEGATIVE (Negative); Urine Protein NEGATIVE (Negative); Urine Specific Gravity 1.015 (1.005-1.030); Urine Urobilinogen 0.2 mg/dL (0.2-1.0); Urine pH 5.5 (5.0-7.0)
[2021-03-07 02:34] LABS: Urine Microscopic Reflex ORDER UMIC
[2021-03-07 03:49] LABS: Urine Bacteria <20 /HPF (<20)
[2021-03-07 03:50] LABS: Urine RBC <5 /HPF (NONE SEEN)
[2021-03-07 03:50] LABS: Absolute Lymphocytes (CBC) 1.8 K/uL (0.7-4.9); Basophils % 0.8 % (0-1.3); Hematocrit 44.1 % (36.0-45.0); RBC Red Blood Cell Count 4.82 M/uL (3.86-4.86)
[2021-03-07 04:05] LABS: Albumin 3.1 g/dL (3.4-5.0); Bilirubin Total 1.1 mg/dL (0.2-1.0); Magnesium 1.8 mg/dL (1.8-2.4); Potassium 3.8 mmol/L (3.5-5.1); Protein, Total 6.2 g/dL (6.4-8.2)
[2021-03-07] MEDS: PANTOPRAZOLE 40 MG INJ IVP SCH (08:19)
[2021-03-07] MEDS: ENOXAPARIN 40 MG/0.4 ML SQ SCH (08:19)
[2021-03-07] MEDS ORDERED: MAGNESIUM SULFATE 1 gm IVPB 1 GM/100 ML BAG IV ONE (09:00)
[2021-03-07] MEDS ORDERED: POTASSIUM CL SA 10 MEQ TAB PO ONE (09:00)
[2021-03-07] MEDS ORDERED: ACETAMINOPHEN 500 MG TAB PO PRN (12:46)
[2021-03-07] MEDS: ONDANSETRON 4 MG/2 ML VIAL IV PRN ×3 (13:02→22:14)
--- NOTE | 2021-03-07 15:59 | P.PN ---
Date of Service: 03/07/21 Subjective: Wayne better this morning, anxious to be discharged home. no nausea/vomiting overnight Reports minimal abdominal discomfort Advanced to clear liquids, but patient had some nausea and chest discomfort after p.o. challenge ROS: 10 point ROS as noted above, otherwise negative Physical exam GEN: Alert, oriented, NAD HEENT: Normal conjunctiva, sclera anicteric CV: Regular rate and rhythm, no edema Pulm: Nonlabored respirations on room air ABD: Soft, nontender, mild epigastric tenderness, mild L sided tenderness Neuro: Normal speech, normal affect Problem List Mild descending diverticulitis with intractable vomiting, abdominal pain GERD Advance to clear liquids, with some nausea and epigastric discomfort. Discussed okay to try again with ice chips/small sips of water later If continues to have symptoms, will need more bowel rest Continue IV fluids, continue Zosyn Pain medication as needed Patient reported some chest tightness, this is been ongoing for a month at least. Was seen by PCP and has improved previously with Gas-X Patient had normal stress test and echocardiogram 1 year ago EKG checked today after episode without acute ischemic changes, troponin negative Patient does report recent acid reflux worsening, reports history of hiatal hernia. Continue IV Protonix Dispo: Anticipate DC home in the next 1-2 days Time Spent Managing Pts Care (In Minutes): 35
[2021-03-07] MEDS ORDERED: DIPHENHYDRAMINE 25 MG TAB/CAP PO ONE (22:15)
[2021-03-08] MEDS: PIPER TAZO 3.375 GM in NA CHLORIDE 0.9% 100 ML IV SCH ×2 (00:15→08:01)
[2021-03-08] MEDS: NA CHLORIDE 0.9% 1,000 ML IV SCH (00:49)
[2021-03-08 05:24] LABS: Absolute Lymphocytes (CBC) 1.9 K/uL (0.7-4.9); Basophils % 1.1 % (0-1.3); Hematocrit 43.5 % (36.0-45.0); Lymphocytes % 29.8 % (15.3-44.8); MPV 9.2 fL (7.6-11.3); RBC Red Blood Cell Count 4.73 M/uL (3.86-4.86)
[2021-03-08 05:39] LABS: Albumin 2.9 g/dL (3.4-5.0); Bilirubin Total 1.1 mg/dL (0.2-1.0); Magnesium 1.9 mg/dL (1.8-2.4); Potassium 3.6 mmol/L (3.5-5.1); Protein, Total 5.9 g/dL (6.4-8.2)
--- NOTE | 2021-03-08 06:12 | P.PN ---
Date of Service: 03/08/21 Subjective: ROS: 10 point ROS as noted above, otherwise negative Physical exam GEN: Alert, oriented, NAD HEENT: Normal conjunctiva, sclera anicteric CV: Regular rate and rhythm, no edema Pulm: Nonlabored respirations on room air ABD: Soft, nontender, mild epigastric tenderness, mild L sided tenderness Neuro: Normal speech, normal affect Problem List Mild descending diverticulitis with intractable vomiting, abdominal pain GERD Advance to clear liquids, with some nausea and epigastric discomfort. Discussed okay to try again with ice chips/small sips of water later If continues to have symptoms, will need more bowel rest Continue IV fluids, continue Zosyn Pain medication as needed Patient reported some chest tightness, this is been ongoing for a month at least. Was seen by PCP and has improved previously with Gas-X Patient had normal stress test and echocardiogram 1 year ago EKG checked today after episode without acute ischemic changes, troponin negative Patient does report recent acid reflux worsening, reports history of hiatal hernia. Continue IV Protonix Dispo: Anticipate DC home in the next 1-2 days Time Spent Managing Pts Care (In Minutes): 35
[2021-03-08] MEDS: PANTOPRAZOLE 40 MG INJ IVP SCH (08:01)
[2021-03-08] MEDS: ENOXAPARIN 40 MG/0.4 ML SQ SCH (08:02)
[2021-03-08] MEDS ORDERED: POTASSIUM CL SA 10 MEQ TAB PO ONE (09:00)
[2021-03-08 12:48] VITALS: BP 137/78; TEMP 97.9
--- NOTE | 2021-03-08 13:11 | P.DS ---
Admission Date: 03/06/21 Discharge Date: 03/08/21 Primary Care Provider: Cari Finn Disposition: ROUTINE DISCHARGE Discharge Condition: GOOD Reason for Admission: Diverticulitis Procedures: CT Abd/Pelvis (03/06): FINDINGS: The evaluation of solid organs, vessels and bowel is limited secondary to the lack of contrast administration. Several hepatic cysts. Spleen, pancreas and adrenals grossly normal. Parapelvic renal cysts. Small nonobstructing right renal calculus. Cholecystectomy Small umbilical hernia Normal appendix. Diverticula stem from the colon. Minimal stranding adjacent to the descending colon. IMPRESSION: Minimal diverticulitis descending colon Problem List Mild descending diverticulitis with intractable vomiting, abdominal pain GERD Irritable bowel syndrome Brief History of Present Illness: 65-year-old female with history of diverticulitis, GERD presents to the emergency department for abdominal pain. Patient was seen earlier today in the emergency department for similar complaint and was diagnosed with mild descending diverticulitis. Patient was placed on oral Augmentin and Flagyl and discharged, at home patient has been unable to tolerate anything by mouth including her oral antibiotics with frequent vomiting and significant abdominal pain so she returned to the emergency department. Patient had repeat labs which demonstrated white blood cell count 8.3 hemoglobin 16.3 hematocrit 49.0 emergency department provider wishes to admit to observation for further evaluation and management of diverticulitis with intractable vomiting/abdominal pain. Hospital Course: Improved with bowel rest, IV fluids, Antibiotics. Diet was advanced to soft diet, which patient was able to tolerate without nausea/vomiting. Abdominal pain resolved. Discharged home to start augmentin/flagyl as prescribed from ED. Follow up with PCP within 1 week Recommend follow up with GI soon, is due for Cscope in near future. Vital Signs/Physical Exam: Temp Pulse Resp BP Pulse Ox 97.9 F 64 16 137/78 96 03/08/21 12:00 03/08/21 12:00 03/08/21 12:00 03/08/21 12:00 03/08/21 12:00 General: Alert, In no apparent distress, Oriented x3 HEENT: Sclerae nonicteric Respiratory: Clear to auscultation bilaterally, Normal air movement Cardiovascular: No edema, Regular rate/rhythm Gastrointestinal: Soft and benign, Non-distended, No tenderness Musculoskeletal: No erythema, No tenderness Integumentary: No significant lesion Neurological: Normal speech, Normal affect Laboratory Data at Discharge: WBC 6.40 K/uL (4.3-10.9) D 03/08/21 04:14 Hgb 14.4 g/dL (12.0-15.0) 03/08/21 04:14 Hct 43.5 % (36.0-45.0) 03/08/21 04:14 Plt Count 197 K/uL (152-406) 03/08/21 04:14 Sodium 143 mmol/L (136-145) 03/08/21 04:14 Potassium 3.6 mmol/L (3.5-5.1) 03/08/21 04:14 BUN 7 mg/dL (7-18) 03/08/21 04:14 Creatinine 0.89 mg/dL (0.55-1.3) 03/08/21 04:14 Glucose 81 mg/dL (74-106) 03/08/21 04:14 Magnesium 1.9 mg/dL (1.8-2.4) 03/08/21 04:14 Total Bilirubin 1.1 mg/dL (0.2-1.0) H 03/08/21 04:14 AST 17 U/L (15-37) 03/08/21 04:14 ALT 25 U/L (12-78) 03/08/21 04:14 Alkaline Phosphatase 69 U/L (45-117) 03/08/21 04:14 Troponin I < 0.02 ng/mL (0.0-0.045) 03/07/21 20:09 Lipase 109 U/L (73-393) 03/06/21 18:05 Home Medications: Acetaminophen [Tylenol] 325 mg PO PRN PRN 01/08/20 Cholecalciferol (Vitamin D3) [Vitamin D3] 5,000 unit PO DAILY 01/08/20 Pantoprazole [Protonix Tab*] 40 mg PO DAILY PRN 01/08/20 Levocetirizine Dihydrochloride [Xyzal] 5 mg PO DAILYPRN PRN 03/07/21 Ondansetron [Zofran] 4 mg PO Q6H PRN #10 tab 03/08/21 New Medications: Ondansetron [Zofran] 4 mg PO Q6H PRN #10 tab PRN Reason: Nausea / Vomiting Physician Discharge Instructions: PROBLEM: Diverticulitis GOAL: Clear understanding of disease process INSTRUCTIONS: Follow up with primary care provider, call to schedule appointment. Return to ER for any worsening symptoms. Call 4th floor @ [phone] for any nursing questions. Diet: GI soft Activity: As tolerated Followup: Roula Finn [facility] [Primary Care Provider] - (Call to schedule follow up appointment) Time spent managing pt's care (in minutes): 45
[2021-03-08 20:14] LABS: Urine Blood Negative (Negative); Urine Glucose Negative (Negative); Urine Protein Negative (Negative); Urine Specific Gravity 1.025 (1.005-1.030)
== END 2021-03-08 13:30 | disposition home or self-care (01) ==
LOC: ER 16:20 → ERHOLD 20:45 → 4TH 23:16
PROVIDERS: ADMIT Hospitalist; ATTEND Hospitalist
DX: K57.92 Diverticulitis of intestine, part unspecified, without perforation or abscess without bleeding (principal); K21.9 Gastro-esophageal reflux disease without esophagitis; K58.9 Irritable bowel syndrome, unspecified; Z20.822 Contact with and (suspected) exposure to COVID-19
CPT/HCPCS: 96365; 96361; 93005; 87088; 85025 ×3; 87086; 80048; 36415 ×2; 83735 ×2; 80076; 81003; 84484 ×2; 83690; 80053 ×2; 96375; 99285; U0003; J2765; J2543 ×6; C9113 ×2; J1650 ×2; J3475; J2270 ×2; J7040; J7030 ×3; J2405 ×5; G0378 ×3; 81015

== ENCOUNTER 2021-07-27 02:09 | Emergency (ER) | payer OTHER ==
--- OUTSIDE RECORDS SUMMARY | 2021-07-27 02:12 | XMS REPORT | Continuity of Care Document ---
:1955 Author Organization [facility] t Address [address] [place] [address] Care Team Providers Name Role Phone Sandoval SHANNON Attending Clinician Unavailable GISEL Attending Clinician Unavailable Huma Attending Clinician [phone] HERBERT SHANNON Attending Clinician Unavailable VALERY Attending Clinician Unavailable ISABEL ALANIS Attending Clinician Unavailable GISEL Admitting Clinician Unavailable Payers Payer Name Policy Type Policy Number Effective Date Expiration Date S giselle [employer] CHOICE [id number] 2015 2024 00:00:00 POS II 00:00:00 [employer] (POS) [id number] 2020 00:00:00 Problems This patient has no [...] INFLAMMA 0-01 Pear[place] TORY PO 00:00: d MED 00 [facility] Center Medications This patient has no known medications. Procedures This patient has no known procedures. Encounters Start End Encounter Admission Attending Care Care Encounter Source Date/Time Date/Time Type Type Clinicians Facility Department ID 2021-07-05 Outpatient SHIVA [facility] [id number] [place] 01:03:[address] [place] [address] 2021-07-26 2021-07-26 Outpatient [facility] [id number] [place] 05:01:00 05:01:00 [facility] 2021-07-23 2021-07-23 Outpatient [facility] [id number] [place] 03:28:00 03:28:00 0426 [facility] 2021-07-13 2021-07-13 Outpatient [facility] [id number] [place] 01:29:00 01:29:00 0416 [facility] 2021-06-24 2021-06-24 Outpatient [facility] [id number] [place] 06:06:00 06:06:00 0328 [facility] 2021-06-24 2021-06-24 Outpatient [facility] [id number] [place] 06:06:00 06:06:00 0412 [facility] 2021-06-24 2021-06-24 Outpatient Finn, [facility] [id number] 00:00:00 00:00:00 Roula [id number] 2021-05-30 2021-05-30 Outpatient [facility] [id number] [place] 04:28:00 04:28:00 0303 [facility] 2021-05-30 2021-05-30 Outpatient Finn, [facility] [id number] 00:00:00 00:00:00 Roula [id number] 2021-04-26 2021-04-26 Outpatient [facility] [id number] [place] 04:02:00 04:02:00 0128 [facility] 2021-04-26 2021-04-26 Outpatient [facility] [id number] [place] 04:02:00 04:02:00 0302 [facility] 2021-04-10 2021-04-10 Outpatient [facility] [id number] [place] 10:19:00 10:19:00 0112 [facility] 2021-04-09 2021-04-09 Outpatient [facility] [id number] [place] 02:44:00 02:44:00 0111 [facility] 2021-04-09 2021-04-09 Outpatient Finn, [facility] [id number] 00:00:00 00:00:00 Roula [id number] 2021-04-05 2021-04-05 Outpatient SHIVA, [facility] [id number] [facility] 10:06:00 23:59:00 LUCIEN 2021-03-14 2021-03-14 Outpatient [facility] [id number] [place] 11:37:00 11:37:00 1216 [facility] 2021-03-14 2021-03-14 Outpatient Finn, [facility] [id number] 00:00:00 00:00:00 Roula [id number] 2021-03-04 2021-03-04 Outpatient [facility] [id number] [place] 02:40:00 02:40:00 1206 [facility] 2021-03-04 2021-03-04 Outpatient Finn, [facility] [id number] 00:00:00 00:00:00 Roula [id number] 2021-03-04 2021-03-04 Outpatient Finn, [facility] [id number] 00:00:00 00:00:00 Roula [id number] 2021-02-25 2021-02-25 Outpatient Finn, [facility] [id number] 00:00:00 00:00:00 Roula [id number] 2021-01-14 2021-01-14 Outpatient [facility] [id number] [place] 05:43:00 05:43:00 1018 [facility] 2021-01-14 2021-01-14 Outpatient [facility] [id number] [place] 05:43:00 05:43:00 1129 [facility] 2021-01-14 2021-01-14 Outpatient Finn, [facility] [id number] 00:00:00 00:00:00 Roula [id number] 2021-01-14 2021-01-14 Outpatient Finn, [facility] [id number] 00:00:00 00:00:00 Roula [id number] 2020-10-16 2020-10-16 Outpatient [facility] [id number] [place] 02:24:00 02:24:00 0720 [facility] 2020-10-16 2020-10-16 Outpatient [facility] [id number] [place] 02:24:00 02:24:00 0818 [facility] 2020-10-16 2020-10-16 Outpatient Finn, [facility] [id number] 00:00:00 00:00:00 Roula [id number] 2020-09-28 2020-09-28 Outpatient [facility] [id number] [place] 12:14:00 12:14:00 0702 [facility] 2020-09-28 2020-09-28 Outpatient Finn, [facility] [id number] 00:00:00 00:00:00 Roula [id number] 2020-09-28 2020-09-28 Outpatient Finn, [facility] [id number] 00:00:00 00:00:00 Roula [id number] [facility] 2020-08-30 2020-08-30 Outpatient [facility] [id number] [place] 05:28:00 05:28:00 0603 [facility] 2020-08-26 2020-08-26 Outpatient [facility] [id number] [place] 01:01:00 01:01:00 0530 [facility] 2020-08-20 2020-08-20 Outpatient [facility] [id number] [place] 05:07:00 05:07:00 0524 [facility] 2020-08-20 2020-08-20 Outpatient Finn, [facility] [id number] 00:00:00 00:00:00 Roula [id number] 2020-08-16 2020-08-16 Outpatient SUSTACHE, [facility] [id number] [place] [address] 00:00:00 00:00:00 SH[address] 2020-08-13 2020-08-13 Outpatient [facility] [id number] [place] 04:15:00 04:15:00 0517 [facility] 2020-08-13 2020-08-13 Outpatient Finn, [facility] [id number] 00:00:00 00:00:00 Roula [id number] 2020-07-26 2020-07-26 Outpatient [facility] [id number] [place] 05:04:00 05:04:00 0429 [facility] 2020-07-26 2020-07-26 Outpatient Finn, [facility] [id number] 00:00:00 00:00:00 Roula [id number] 2020-07-24 2020-07-24 Outpatient SUSTACHE, [facility] [id number] [place] 00:00:00 00:00:00 SHIELA [address] [facility] 2020-07-23 2020-07-23 Emergency E ANNABELLE, FB FB [id number] FB 16:54:00 18:17:00 NICHELLE 2020-03-09 2020-03-09 Outpatient SHIVA, [facility] [id number] [facility] 11:08:00 23:59:00 LUCIEN 2018-07-28 2018-07-28 Outpatient [facility] [id number] [facility] 01:39:00 01:39:00 Results Test Description Test Time Test Comments Results Result Comments Source SURG 2018-01-01 11:22:00 --------RUN DATE: 01/01/18 [facility] - LAB *LIVE* PAGE 1 RUN TIME: 1122 Specimen Inquiry RUN USER: INTERFACE --------PATIENT: BOZENA MARSH LOC: [facility] U #: [id number] AGE/SX: 62/F ROOM: RE12/31/17HAN DR: Raz Gaspar III : 57 BED: DIS: STATUS: [facility] TLOC: -------- SPEC #: [id number] RECD: 12/31/17 STATUS: HENRY DELGADO #: [id number] SHYANN: 12/31/[address]: Raz Gaspar III, MD ENTERED: 12/31/17 SP TYPE: SURG OTHR DR: No Primary or Family PhysicianORDERED: SURG PATH LVL 1, SURG PATH LVL 4 COPIES TO: No Primary [place] [id number] [facility] [address] [place] [address] HISTOLOGY: TISSUE ID BLK PCS ANAIS LEV PROCEDURE DISPOSITION ____ ___ ___ ___ NASAL TURBINATE A 1 1 NASAL SEPTUM, N B 1 1 PROCEDURES: SURG PATH LVL 1 (01/01/18) SURG PATH LVL 4 (01/01/18) TISSUES: A. NASAL TURBINATE, NOS - BILATERAL INFERIOR TURBINATES B. NASAL SEPTUM, NOS - SEPTUM CPT CODES CPT CODE(S): 94880 , 52141 , , , , , FINAL DIAGNOSIS A. Inferior turbinate, bilateral, endoscopic sinus surgery: SINUS CONTENTS CONSISTENT WITH CHRONIC SINUSITIS B. Nasal septum, septoplasty: BONE AND CARTILAGE (GROSS ONLY) GROSS DESCRIPTION A. Bilateral inferior turbinates. Received in formalin are irregular fragments of sauceda-brown soft tissue admixed with dark brown blood clots, 2.7 x 1.8 x 1.0 cm in aggregate. 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 B. Septum. Received in formalin are multiple irregular fragments of cartilage CONTINUED ON NEXT PAGE --------RUN DATE: 01/01/18 [facility] - LAB *LIVE* PAGE 2 RUN TIME: 112 Specimen Inquiry RUN USER: INTERFACE --------SPEC #: [id number] PATIENT: BOZENA MARSH #[id number] (Continued) GROSS DESCRIPTION (Continued) and bones, 5.0 x 3.5 x 0.7 cm in aggregate. The specimen is photographed for gross identification only. ba/nr Grossing performed at [facility] Pathology, [address] [place] [address], [address], [place] [address]. Supervisor [employer] Education: Ralph Dash M.D. MICROSCOPIC DESCRIPTION A. Bilateral inferior turbinates. Fragments of respiratory epithelium lined mucosa. There are benign mucus glands and a chronic inflammatory infiltrate. Fragments of unremarkable cartilage and bone present. No evidence of malignancy. B. Septum. For gross identification only. /doug Signed SIGNATURE ON FILE Kel Chatterjee 01/01/18 1122 -------- END OF REPORT
[2021-07-27] MEDS ORDERED: ONDANSETRON 4 MG/2 ML VIAL ONE (02:53)
[2021-07-27] MEDS ORDERED: MORPHINE 4 MG/ML SYR ONE ×2 (02:53→06:02)
[2021-07-27 03:50] LABS: Absolute Lymphocytes (CBC) 1.7 K/uL (0.7-4.9); Hematocrit 43.5 % (36.0-45.0); Lymphocytes % 18.7 % (15.3-44.8); MPV 9.2 fL (7.6-11.3); RBC Red Blood Cell Count 4.81 M/uL (3.86-4.86)
[2021-07-27 04:09] LABS: Albumin 3.5 g/dL (3.4-5.0); Bilirubin Total 0.9 mg/dL (0.2-1.0); Potassium 3.9 mmol/L (3.5-5.1); Protein, Total 6.6 g/dL (6.4-8.2)
[2021-07-27 06:14] LABS: Urine Blood 2+ (Negative); Urine Glucose Trace (Negative); Urine Protein 2+ (Negative); Urine Specific Gravity 1.015 (1.005-1.030)
[2021-07-27 06:24] LABS: Urine Bacteria <20 /HPF (<20)
--- NOTE | 2021-07-27 06:48 | EDPHYS ---
Physician Documentation [facility] Name: Tracey Rodriguez Age: 65 yrs Sex: Female : 1955 Arrival Date: 07/27/2021 Time: 02:11 Bed 15 Private MD: ED Physician Dylon Palma HPI: 07/27 02:55 This 65 yrs old Female presents to ER via EMS with complaints of Abdominal Pain. mh7 02:55 The patient presents with abdominal pain in the lower abdomen. Onset: The mh7 symptoms/episode began/occurred 3 day(s) ago. The symptoms do not radiate. 02:55 Associated signs and symptoms: Pertinent positives: diarrhea, dysuria, Pertinent mh7 negatives: nausea and vomiting, fever, headache, hematuria, palpitations, shortness of breath, vomiting, vomiting blood. 02:55 The symptoms are described as intermittent, vague, waxing/waning. Modifying factors: mh7 The symptoms are alleviated by nothing, the symptoms are aggravated by nothing. Severity of pain: At its worst the pain was moderate 2 day(s) ago, in the emergency department the pain is unchanged. The patient has been recently seen by a physician: outside ER, diagnosed with UTI. Historical: - Allergies: 02:19 anti-inflammatory (all); ke1 02:19 Ciprofloxacin; ke1 02:19 fluoroquinolones; ke1 02:19 Levaquin; ke1 02:19 Sulfa (Sulfonamide Antibiotics); ke1 - PMHx: 02:19 Diverticulitis; ke1 - PSHx: 02:19 Colectomy; Ligation of fallopian tube; ke1 - Immunization history:: Client reports having NOT received the Covid vaccine. - Social history:: Smoking status: Patient denies any tobacco usage or history of. Patient uses. ROS: 02:55 Constitutional: Negative for fever, chills, and weight loss, Eyes: Negative for injury, mh7 pain, redness, and discharge, ENT: Negative for injury, pain, and discharge, Neck: Negative for injury, pain, and swelling, Cardiovascular: Negative for chest pain, palpitations, and edema, Respiratory: Negative for shortness of breath, cough, wheezing, and pleuritic chest pain, Back: Negative for injury and pain, MS/Extremity: Negative for injury and deformity, Skin: Negative for injury, rash, and discoloration, Neuro: Negative for headache, weakness, numbness, tingling, and seizure, Psych: Negative for depression, anxiety, suicide ideation, homicidal ideation, and hallucinations, Allergy/Immunology: Negative for hives, rash, and allergies, Endocrine: Negative for neck swelling, polydipsia, polyuria, polyphagia, and marked weight changes, Hematologic/Lymphatic: Negative for swollen nodes, abnormal bleeding, and unusual bruising. Exam: 02:55 Head/Face: Normocephalic, atraumatic. Eyes: Pupils equal round and reactive to light, mh7 extra-ocular motions intact. Lids and lashes normal. Conjunctiva and sclera are non-icteric and not injected. Cornea within normal limits. Periorbital areas with no swelling, redness, or edema. Neck: Trachea midline, no thyromegaly or masses palpated, and no cervical lymphadenopathy. Supple, full range of motion without nuchal rigidity, or vertebral point tenderness. No Meningismus. Chest/axilla: Normal chest wall appearance and motion. Nontender with no deformity. No lesions are appreciated. Cardiovascular: Regular rate and rhythm with a normal S1 and S2. No gallops, murmurs, or rubs. Normal PMI, no JVD. No pulse deficits. Respiratory: Lungs have equal breath sounds bilaterally, clear to auscultation and percussion. No rales, rhonchi or wheezes noted. No increased work of breathing, no retractions or nasal flaring. 02:55 Back: No spinal tenderness. No costovertebral tenderness. Full range of motion. Skin: Warm, dry with normal turgor. Normal color with no rashes, no lesions, and no evidence of cellulitis. MS/ Extremity: Pulses equal, no cyanosis. Neurovascular intact. Full, normal range of motion. Neuro: Awake and alert, GCS 15, oriented to person, place, time, and situation. Cranial nerves II-XII grossly intact. Motor strength 5/5 in all extremities. Sensory grossly intact. Cerebellar exam normal. Normal gait. Psych: Awake, alert, with orientation to person, place and time. Behavior, mood, and affect are within normal limits. 02:55 Constitutional: The patient appears in no acute distress, alert, awake, uncomfortable. 02:55 Abdomen/GI: Inspection: obese Bowel sounds: normal, in all quadrants, Palpation: mild abdominal tenderness, in the suprapubic area and left lower quadrant, mass, is not appreciated, rebound tenderness, is not appreciated, voluntary guarding, is not appreciated, involuntary guarding, is not appreciated, no appreciated organomegaly, Rectal exam: the exam is deferred, because of patient request, Indicators: McBurney's point is not tender, Townsend's sign is negative, Rovsing's sign is negative, Obturator sign is negative, Psoas sign is negative, Liver: no appreciated palpable abnormalities, Hernia: not appreciated. Vital Signs: 02:15 BP 138 / 95; Pulse 77; Resp 17; Temp 98.4(O); Pulse Ox 92% on R/A; Weight 90.26 kg; ke1 Height 5 ft. 3 in. (160.02 cm); Pain 4/10; 04:10 BP 94 / 57; Pulse 66; Resp 18; Pulse Ox 93% ; ke1 05:58 BP 114 / 56; Pulse 58; Resp 17; Pulse Ox 96% on R/A; ke1 02:15 Body Mass Index 35.25 (90.26 kg, 160.02 cm) ke1 MDM: 06:45 Differential diagnosis: bowel obstruction, diverticulitis, gastritis, gastroesophageal mh7 reflux disease, non-specific abd pain, pancreatitis, Peptic Ulcer Disease, Ureterolithiasis, urinary tract infection. Data reviewed: vital signs, nurses notes, lab test result(s), CBC, electrolytes, urinalysis, radiologic studies, CT scan. Data interpreted: Pulse oximetry: on room air is 96 %. Interpretation: normal. Counseling: I had a detailed discussion with the patient and/or guardian regarding: the historical points, exam findings, and any diagnostic results supporting the discharge/admit diagnosis, lab results, radiology results, the need for outpatient follow up, to return to the emergency department if symptoms worsen or persist or if there are any questions or concerns that arise at home. Response to treatment: the patient's symptoms have markedly improved after treatment. 06:47 Patient medically screened. [facility] 07/27 03:14 Order name: CBC with Diff; Complete Time: 04:16 ke1 07/27 03:14 Order name: CMP; Complete Time: 04:16 ke1 07/27 03:14 Order name: Lipase; Complete Time: 04:16 ke1 07/27 05:55 Order name: Urine Culture [facility] 07/27 06:03 Order name: Urine Microscopic Only; Complete Time: 06:27 [facility] 07/27 06:14 Order name: Urine Dipstick-Ancillary; Complete Time: 06:27 [facility] 07/27 03:14 Order name: IV Saline Lock; Complete Time: 04:07 ke 07/27 03:14 Order name: Labs collected and sent; Complete Time: 03:34 ke 07/27 04:42 Order name: Abdomen [facility] 07/27 05:55 Order name: Urine Dipstick-Ancillary (obtain specimen); Complete Time: 06:16 [facility] Administered Medications: 02:59 Drug: morphine 4 mg Route: IVP; Site: left hand; ke1 03:15 Follow up: Response: Marked relief of symptoms ke1 02:59 Drug: Zofran (Ondansetron) 4 mg Route: IVP; Site: left hand; ke1 03:15 Follow up: Response: Marked relief of symptoms ke1 06:15 Drug: morphine 4 mg Route: IVP; Site: left hand; ke1 06:30 Follow up: Response: No adverse reaction; Marked relief of symptoms ke1 Disposition Summary: 07/27/21 06:47 Discharge Ordered Location: Home [facility] Problem: an ongoing problem [facility] Symptoms: have improved [facility] Condition: Stable [facility] Diagnosis - UTI/ Urinary tract infection, site not specified [facility] - Diverticulosis [facility] Followup: [facility] - With: Private Physician - When: 1 - 2 days - Reason: Worsening of condition, Recheck today's complaints, Continuance of care, Re-evaluation by your physician Followup: [facility] - With: Andreas De La Cruz MD - When: 1 - 2 days - Reason: Worsening of condition, Recheck today's complaints Discharge Instructions: - Discharge Summary Sheet [facility] - Diverticulosis [facility] - Urinary Tract Infection, Adult, Eual-hf-Vacu [facility] Forms: - Medication Reconciliation Form [facility] - Thank You Letter [facility] - Antibiotic Education [facility] - Prescription Opioid Use [facility] Prescriptions: - Pyridium 200 mg Oral Tablet - take 1 tablet by ORAL route every 8 hours for 2 days; 6 tablet; Refills: 0, [facility] Product Selection Permitted - dicyclomine 20 mg Oral Tablet - take 1 tablet by ORAL route 4 times per day As needed; 20 tablet; Refills: 0, mh7 Product Selection Permitted Signatures: Dispatcher [employer] Dylon Cheema MD MD 7 Alice Leal RN Mohinder Roa RN RN ke1 Corrections: (The following items were deleted from the chart) 04:42 03:51 Abdomen Pelvis W Con+CT.RAD.BRZ ordered. EDMS VALENCIA
--- NOTE | 2021-07-27 06:48 | ER ---
Nurse's Notes [facility] Name: Tracey Rodriguez Age: 65 yrs Sex: Female : 1955 Arrival Date: 07/27/2021 Time: 02:11 Bed 15 Private MD: Diagnosis: UTI/ Urinary tract infection, site not specified;Diverticulosis Presentation: 07/27 02:15 Chief complaint: Patient states: abdominal pain started 3 days ago, thought it was UTI, ke1 MD prescribed bactrim but pain is worsed today and look more like my diverticulitis pain. Per EMS patient received 1 g ofirmev ( iv tylenol) + zofran 4 mg and pain decreases from 8 to 4/10. Coronavirus screen: Vaccine status: Patient reports being unvaccinated. Ebola Screen: No symptoms or risks identified at this time. Initial Sepsis Screen: Does the patient meet any 2 criteria? No. Patient's initial sepsis screen is negative. Does the patient have a suspected source of infection? No. Patient's initial sepsis screen is negative. Risk Assessment: Do you want to hurt yourself or someone else? Patient reports no desire to harm self or others. Onset of symptoms was July 23, 2021. 02:15 Method Of Arrival: EMS ke1 02:15 Acuity: ANUJA 3 ke1 Triage Assessment: 02:15 General: Appears in no apparent distress. Behavior is appropriate for age. ke1 02:15 Pain: Complains of pain in abdomen Pain currently is 4 out of 10 on a pain scale. at ke1 worst was 10 out of 10 on a pain scale. level that patient reports is acceptable is 5 out of 10 on a pain scale. Quality of pain is described as aching. EENT: No deficits noted. Neuro: Level of Consciousness is awake, alert, Oriented to person, place, time, situation. Cardiovascular: Heart tones S1 S2. Respiratory: Airway is patent Respiratory effort is even, unlabored, Respiratory pattern is regular, symmetrical. GI: Abdomen is round Bowel sounds present X 4 quads. Abd is soft Abdomen is tender to palpation in right lower quadrant and left lower quadrant. : No deficits noted. Derm: No deficits noted. Musculoskeletal: No deficits noted. Historical: - Allergies: 02:19 anti-inflammatory (all); ke1 02:19 Ciprofloxacin; ke1 02:19 fluoroquinolones; ke1 02:19 Levaquin; ke1 02:19 Sulfa (Sulfonamide Antibiotics); ke1 - PMHx: 02:19 Diverticulitis; ke1 - PSHx: 02:19 Colectomy; Ligation of fallopian tube; ke1 - Immunization history:: Client reports having NOT received the Covid vaccine. - Social history:: Smoking status: Patient denies any tobacco usage or history of. Patient uses. Screenin:49 Abuse screen: Denies threats or abuse. Nutritional screening: No deficits noted. ke1 Tuberculosis screening: No symptoms or risk factors identified. Fall Risk No fall in past 12 months (0 pts). No secondary diagnosis (0 pts). IV access (20 points). Ambulatory Aid- None/Bed Rest/Nurse Assist (0 pts). Gait- Normal/Bed Rest/Wheelchair (0 pts) Mental Status- Oriented to own ability (0 pts). Total Cullen Fall Scale indicates No Risk (0-24 pts). Assessment: 04:07 Reassessment: Patient states feeling better. Patient states symptoms have improved. ke1 Pain: Complains of pain in abdomen Pain currently is 2 out of 10 on a pain scale. at worst was 10 out of 10 on a pain scale. level that patient reports is acceptable is 5 out of 10 on a pain scale. 04:34 Reassessment: Difficult stick, unable to get higher arm IV, ok for CT without contrast ke1 per MD. Vital Signs: 02:15 BP 138 / 95; Pulse 77; Resp 17; Temp 98.4(O); Pulse Ox 92% on R/A; Weight 90.26 kg; ke1 Height 5 ft. 3 in. (160.02 cm); Pain 4/10; 04:10 BP 94 / 57; Pulse 66; Resp 18; Pulse Ox 93% ; ke1 05:58 BP 114 / 56; Pulse 58; Resp 17; Pulse Ox 96% on R/A; ke1 02:15 Body Mass Index 35.25 (90.26 kg, 160.02 cm) ke1 ED Course: 02:11 Patient arrived in ED. vc1 02:15 Mohinder Rojas RN is Primary Nurse. ke1 02:19 Triage completed. ke1 02:20 Maintain EMS IV. Gauge \T\ site: 22 g L hand. ke1 02:30 Arm band placed on left wrist. ke1 03:25 Dylon Palma MD is Attending Physician. [facility] 04:00 Missed attempt(s): 22 gauge in right forearm. ke1 05:04 Abdomen In Process Unspecified. EDMS 06:46 Andreas De La Cruz MD is Referral Physician. [facility] 06:58 No provider procedures requiring assistance completed. IV discontinued. ke1 06:59 Bed in low position. ke1 Administered Medications: 02:59 Drug: morphine 4 mg Route: IVP; Site: left hand; ke1 03:15 Follow up: Response: Marked relief of symptoms ke1 02:59 Drug: Zofran (Ondansetron) 4 mg Route: IVP; Site: left hand; ke1 03:15 Follow up: Response: Marked relief of symptoms ke1 06:15 Drug: morphine 4 mg Route: IVP; Site: left hand; ke1 06:30 Follow up: Response: No adverse reaction; Marked relief of symptoms ke1 Outcome: 06:47 Discharge ordered by . 7 06:58 Discharged to home ambulatory. ke1 06:58 Condition: good 06:58 Discharge instructions given to patient. 07:01 Patient left the ED. ke1 Signatures: Dispatcher [employer] Dylon Palma MD MD 7 Mis Dias RN RN 1 Mohinder Rojas RN RN ke1 Corrections: (The following items were deleted from the chart) 05:52 05:50 General: Appears ke ke1
[2021-07-27 07:13] VITALS: TEMP 98.4
[2021-07-27 07:25] VITALS: BP 114/56; O2SAT 96
--- NOTE | 2021-07-27 20:26 | RAD REPORT ---
EXAM DESCRIPTION: CT - Abdomen Pelvis Wo Contrast - 07/27/2021 6:45 am CLINICAL HISTORY: 65 years Female Abdominal pain, acute TECHNIQUE: Axial CT imaging of the abdomen and pelvis was performed without oral or intravenous cont rast. Sagittal and coronal reconstructed images were then performed. The CT study is performed acco rding to ALARA (as low as reasonably achievable) or ALARA/IMAGE GENTLY, with automatic adjustment of mA and/or kV according to patient size. Performed on: 07/27/2021 at 4:46 AM COMPARISON: CT abdomen and pelvis without contrast performed on 03/06/2021. FINDINGS: Lung bases: The lung bases are clear. There is minimal bibasilar atelectasis and/or fibros is. Liver: The liver is normal in size and configuration. There are a few small stable left and right hep atic lobe cysts. The largest is in the left hepatic lobe and measures approximately 2.3 cm in diamete r. Liver attenuation is within normal limits. Spleen: The spleen is normal in size, configuration and attenuation. No focal splenic abnormalities a re appreciated on this unenhanced scan. Gallbladder and bile duct: The gallbladder is surgically absent. There is no biliary ductal dilatat ion. Pancreas: The pancreas is grossly normal in size and configuration. Adrenal Glands: The adrenal glands are normal in size and configuration. Kidneys: The kidneys are normal in size and configuration. There is no evidence of hydronephrosis. Th ere is a punctate nonobstructing right renal calculus. There are multiple, grossly stable bilateral p arapelvic renal cysts. Stomach: The stomach is grossly normal. There is no definite hiatal hernia. Bowel: The bowel gas pattern is non specific and non obstructive. There is scattered colonic divertic ulosis. No definite diverticulitis is identified. Appendix: The appendix is normal. Free air: There is no evidence of free air. Free fluid: There is no evidence of free fluid. Vasculature: The aorta is normal in caliber and contour. The inferior vena cava is grossly unremarkab le. Lymphadenopathy: No pathologic lymphadenopathy is identified. Bladder: The bladder is well distended and smooth in contour. Reproductive: The uterus is grossly within normal limits. Bones: No acute osseous abnormalities are identified. There is trace anterolisthesis of L5 relative t o S1. There is a small residual disc at the S1-S2 level. Soft tissues: No acute soft tissue abnormalities are identified. There are bilateral fat-containing i nguinal hernias slightly larger on the right. IMPRESSION: 1. No evidence of acute intra-abdominal or intrapelvic pathology. 2. Colonic diverticulosis without evidence of acute diverticulitis. 3. Punctate nonobstructing right renal calculus. 4. Multiple, grossly stable bilateral parapelvic renal cysts. 5. Remote cholecystectomy. 6. Bilateral fat-containing inguinal hernias slightly larger on the right. Electronically signed by: Mariam Boggs DO 07/27/2021 6:13 AM CDT Due to temporary technical issues with the PACS/Fluency reporting system, reports are being signed by the in house radiologists without review as a courtesy to insure prompt reporting. The interpreting radiologist is fully responsible for the content of the report.
== END 2021-07-27 07:01 | disposition home or self-care (01) ==
LOC: ER 02:09
DX: N39.0 Urinary tract infection, site not specified (principal); K57.30 Diverticulosis of large intestine without perforation or abscess without bleeding; Z88.1 Allergy status to other antibiotic agents; Z88.2 Allergy status to sulfonamides; Z88.3 Allergy status to other anti-infective agents; Z88.5 Allergy status to narcotic agent; Z88.8 Allergy status to other drugs, medicaments and biological substances
CPT/HCPCS: 87088; 85025; 87086; 36415; 83690; 80053; 74176; 96375; 96374; 99283; J2405; 81003; 81015

== ENCOUNTER 2021-12-10 07:47 | Emergency (ER) | payer OTHER ==
--- OUTSIDE RECORDS SUMMARY | 2021-12-10 07:51 | XMS REPORT | Continuity of Care Document ---
:1955 Author Organization [facility] t Address [address] [place] [address] Care Team Providers Name Role Phone Silvio Babin MD, Gilberto Primary Care Physician [phone] LUCIEN SHANNON Attending Clinician Unavailable CHRETIEN_F Attending Clinician Unavailable Nikki Longoria Attending Clinician [phone] Kaitlin Block Attending Clinician [phone] LUCIEN SHANNON Attending Clinician Unavailable JONATHAN Attending Clinician Unavailable GISEL Attending Clinician Unavailable Provider , Not In System Attending Clinician Unavailable Ginna Lord MA Attending Clinician Unavailable Willy Lopez Attending Clinician [phone] George HERNANDEZ, Nikki Castillo Attending Clinician [phone] Roula Finn Attending Clinician [phone] SHIELA RASMUSSEN Attending Clinician Unavailable NICHELLE ALANIS Attending Clinician Unavailable CHRETIEN_F Admitting Clinician Unavailable JONATHAN Admitting Clinician Unavailable WATERS_S Admitting Clinician Unavailable Payers Payer Name Policy Type Policy Number Effective Date Expiration Date Nolan desai AETNA CHOICE POS [id number] 2002 2002 II 00:00:00 00:00:00 [place]: [id number] 2021 NOVZayanteS [employer]World 00:00:00 - [facility] - [facility] AETNA (INDEMNITY) [id number] 2002 00:00:00 [place]: [id number] FileThisS [employer] AETNA (POS) [id number] 2020 00:00:00 Problems Condition Condition Condition Status Onset Resolution Last Treating Co mments Source Name Details Category Date Date Treatment Clinician Date No known No known Disease Metho di active active st problems problems Hospit a l Allergies, Adverse Reactions, Alerts Allergy Allergy Status Severity Reaction(s) Onset Inactive Treating Comm ents Source Name Type Date Date Clinician ciproflo DA Active SV 2017-03 [facility] [place] [facility] levoflox DA Active SV 2017[facility] acin [facility] [place] [facility] ANTI DA Active U 2017-03 [facility] INFLAMMA 0- [place] TORY PO 00:00: d [facility]S 00 [facility] Sulfa Propensi Active Methodi (Sulfona ty to 06-05 st mide adverse 00:00: Hospita Antibiot reaction 00 l ics) s to drug Ciproflo Propensi Active Method i xacin ty to 06-05 st adverse 00:00: Hospita reaction 00 l s to drug Levoflox Propensi Active Swelling Meth eris acin ty to 04-08 adverse 00:00: Hospita reaction 00 l s to drug Nsaids Propensi Active Swelling Method i (Non-Dragan ty to 04-08 roidal adverse 00:00: Hospita Anti-Inf reaction 00 l lammator s to y Drug) drug Ciprofib Propensi Active Swelling Meth eris rate ty to 04-08 adverse 00:00: Hospita reaction 00 l s to drug Family History Family Member Diagnosis Comments Start Date Stop Date Source Natural father Heart disease [facility] Natural mother [facility] Social History Social Habit Start Date Stop Date Quantity Comments Source Alcohol intake 2021-08-21 2021-08-21 Current [facility] 00:00:00 00:00:00 non-drinker of Hospital alcohol (finding) Tobacco use and 2017-06-05 2017-06-05 Smokeless tobacco Me [facility] exposure 00:00:00 00:00:00 non-user Hospital Sex Assigned At [birth year] [facility] 00:00[facility]00 [facility] Smoking Status Start Date Stop Date Source Never smoked tobacco [facility] Medications Ordered Filled Start Stop Current Ordering Indication Dosage Frequency Signature Comments Components Source Medication Medication Date Date Medication? Clinician (SIG) Name Name amoxicillin 2021- No 1{tbl} Q.5D Take 1 M ethodi -pot 609-[address] clavulanate 00:00: 04:59 mouth 2 Ho spita (AUGMENTIN) 00 :00 (two) l 875-125 mg times a per tablet day for 7 days. estradioL No 1g Q.5W Insert 1 g M ethodi (ESTRACE) 08-22- into the st 0.01 % (0.1 00:00: 04:59 vagina 2 H ospita mg/gram) 00 :00 (two) l vaginal times a cream week. Use nightly for the first 2 weeks oxybutynin 2021- No 5mg QD Take 5 mg M ethodi XL 5-09 08-[address] (DITROPAN-X 00:00: 00:00 daily. Hos romina L) 5 MG 24 00 :00 l hr tablet fluticasone Yes 50ug QD 1 spray Met hodi propionate 4-27 ([address] (FLONASE) 00:00: total) by Hos romina 50 00 Each Nare l mcg/actuati route on nasal daily. spray Procedures Procedure Date / Time Performed Performing Clinician Horacio e URINE CULTURE 2021-09-23 00:00:00 Provider, Not In [facility] POC URINALYSIS DIPSTICK 2021-08-21 19:36:00 Nikki Vazquez [facility] [id number] 2021-08-21 19:36:00 Nikki Vazquez [facility] gisela Castillo Plan of Care Planned Activity Planned Date Details Comments Source Future Scheduled 2021-11-28 HEPATITIS B VACCINES Met [facility] Test 00:25:38 (1 of 3 - 3-dose series) [code = HEPATITIS B VACCINES (1 of 3 - 3-dose series)] Future Scheduled 2021-11-28 Hepatitis C screening [facility] Test 00:25:38 (procedure) [code = 690568558] Future Scheduled 2021-11-28 Screening for [facility] Test 00:25:38 malignant neoplasm of cervix (procedure) [code = 087004513] Future Scheduled 2021-11-28 BREAST CANCER [facility] Test 00:25:38 SCREENING [code = BREAST CANCER SCREENING] Future Scheduled 2021-11-28 COLONOSCOPY SCREENING [facility] Test 00:25:38 [code = COLONOSCOPY SCREENING] Future Scheduled 2021-11-28 SHINGLES VACCINES (1 Met [facility] Test 00:25:38 of 2) [code = SHINGLES VACCINES (1 of 2)] Future Scheduled 2021-11-28 65+ [facility] 00:25:38 VACCINE (1 - PCV) [code = 65+ PNEUMOCOCCAL VACCINE (1 - PCV)] Future Scheduled 2021-11-28 INFLUENZA VACCINE Method [facility] Test 00:25:38 [code = INFLUENZA VACCINE] Encounters Start End Encounter Admission Attending Care Care Encounter Source Date/Time Date/Time Type Type Clinicians Facility Department ID 2021-11-07 Outpatient [facility] [id number] [place] 01:51:34 [id number] [facility] 2021-10-07 Outpatient [facility] [id number] [place] 12:39:58 [id number] [facility] 2021-07-05 Outpatient DE QUEEN, [facility] [id number] [place] 01:03:47 LUCIEN [id number] [facility] 2021-11-11 2021-11-11 Outpatient CHRETIEN_F [facility] [address] [place] 00:00:00 00:00:00 0815 [facility] 2021-11-08 2021-11-08 Outpatient CHRETIEN_F [facility] [address] 00:00:00 00:00:00 0812 [facility] 2021-11-08 2021-11-08 Outpatient Nikki Longoria [facility] [id number] 00:00:00 00:00:00 [id number] 2021-10-22 2021-10-22 Outpatient CHRETIEN_F [facility] [address] 10:01:00 10:01:00 0726 [facility] 2021-10-21 2021-10-21 Outpatient CHRETIEN_F [facility] [address] 06:03:00 06:03:00 0725 [facility] 2021-10-21 2021-10-21 Outpatient Umair, [facility] [id number] 00:00:00 00:00:00 Kaitlin [id number] 2021-10-14 2021-10-14 Outpatient SHIVA, [facility] [id number] [facility] 07:36:00 14:00:00 LUCIEN 2021-10-11 2021-10-11 Outpatient LISTER_CALDERONI [facility] [address] 10:21:00 10:21:00 SSA 0715 da [facility] Program 2021-10-08 2021-10-08 Outpatient WATERS_S [facility] [id number] [place] 03:10:00 03:10:00 0712 [facility] 2021-09-23 2021-09-23 Orders Provider, 1.2.840.1 [id number] [facility]i 00:00:00 00:00:00 Only Not In 14557.1.[address] System 3.430.2.7 Hospit a .3.369807 l .8 2021-09-23 2021-09-23 Telephone Lord, 1.2.840.1 [id number] 2100 [id number] [facility] 00:00:00 00:00:[address] 3.430.2.7 Hospit a .3.729344 l .8 2021-09-20 2021-09-20 Outpatient WATERS_S [facility] [id number] [place] 12:16:00 12:16:00 0624 [facility] 2021-09-20 2021-09-20 Outpatient John [facility] [id number] 00:00:00 00:00:00 Willy [id number] 2021-09-11 2021-09-11 Orders George, 1.2.840.1 [id number] 2100 [id number] [facility]i 00:00:00 00:00:00 Only Nikki 60804.1.[address] [facility] 3.430.2.7 Hosp bandar .3.844154 l .8 2021-09-09 2021-09-09 Telephone George 1.2.840.1 [id number] Methodi 00:00:00 00:00:[address] [facility] 3.430.2.7 Hosp bandar .3.911815 l .8 2021-09-03 2021-09-03 Outpatient WATERS_S [facility] [id number] [place] 01:31:00 01:31:00 0607 [facility] 2021-08-21 2021-08-21 Office George, 1.2.840.1 [id number] 2099 [id number] Methodi 14:45:00 15:41:16 Visit Nikki 60274.1.[address] [facility] 3.430.2.7 Hosp bandar .3.153363 l .8 2021-08-21 2021-08-21 Outpatient GEORGE, [facility] [id number] [place] 00:00:00 00:00:[address] 2021-08-21 2021-08-21 Travel 1.2.840.1 1.2.040.373 2287 [id number] [facility]i 00:00:00 00:00:[address] 3.430.2.7 0.2.7.3.698 Ho spita .3.380129 084.8 l .8 2021-07-31 2021-07-31 Outpatient WATERS_S [facility] [id number] [place] 04:50:00 04:50:00 0504 [facility] 2021-07-31 2021-07-31 Outpatient John, [facility] [id number] 00:00:00 00:00:00 Willy [id number] 2021-07-26 2021-07-26 Outpatient WATERS_S [facility] [id number] [place] 05:01:00 05:01:00 0429 [facility] 2021-07-26 2021-07-26 Outpatient John, [facility] [id number] 00:00:00 00:00:00 Willy [id number] 2021-07-23 2021-07-23 Outpatient WATERS_S [facility] [id number] [place] 03:28:00 03:28:00 0426 [facility] 2021-07-23 2021-07-23 Outpatient Chretien, [facility] [id number] 00:00:00 00:00:00 Kaitlin [id number] 2021-07-13 2021-07-13 Outpatient WATERS_S [facility] [id number] [place] 01:29:00 01:29:00 0416 [facility] 2021-06-24 2021-06-24 Outpatient WATERS_S [facility] [id number] [place] 06:06:00 06:06:00 0328 [facility] 2021-06-24 2021-06-24 Outpatient Huma, [facility] [id number] 00:00:00 00:00:00 Roula [id number] 2021-05-30 2021-05-30 Outpatient WATERS_S [facility] [id number] [place] 04:28:00 04:28:00 0303 [facility] 2021-05-30 2021-05-30 Outpatient Finn, [facility] [id number] 00:00:00 00:00:00 Roula [id number] 2021-04-26 2021-04-26 Outpatient WATERS_S [facility] [id number] [place] 04:02:00 04:02:00 0128 [facility] 2021-04-10 2021-04-10 Outpatient WATERS_S [facility] [id number] [place] 10:19:00 10:19:00 0112 [facility] 2021-04-09 2021-04-09 Outpatient WATERS_S [facility] [id number] [place] 02:44:00 02:44:00 0111 [facility] 2021-04-09 2021-04-09 Outpatient Finn, [facility] [id number] 00:00:00 00:00:00 Roula [id number] 2021-04-05 2021-04-05 Outpatient DE QUEEN, [facility] [id number] [facility] 10:06:00 23:59:00 LUCIEN 2021-03-14 2021-03-14 Outpatient WATERS_S [facility] [id number] [place] 11:37:00 11:37:00 1216 [facility] 2021-03-14 2021-03-14 Outpatient Finn, [facility] [id number] 00:00:00 00:00:00 Roula [id number] 2021-03-04 2021-03-04 Outpatient WATERS_S [facility] [id number] [place] 02:40:00 02:40:00 1206 [facility] 2021-03-04 2021-03-04 Outpatient Finn, [facility] [id number] [id number] 00:00:00 00:00:00 Roula [id number] 2021-03-04 2021-03-04 Outpatient Finn, [facility] [id number] 4-5 00:00:00 00:00:00 Roula [id number] 2021-02-25 2021-02-25 Outpatient Finn, [facility] [id number] [id number] 00:00:00 00:00:00 Roula [id number] 2021-01-14 2021-01-14 Outpatient WATERS_S [facility] [id number] [place] 05:43:00 05:43:00 1018 [facility] 2021-01-14 2021-01-14 Outpatient Finn, [facility] [id number] [id number] 00:00:00 00:00:00 Roula [id number]-[id number] 2021-01-14 2021-01-14 Outpatient Finn, [facility] [id number] c-3 00:00:00 00:00:00 Roula [id number] 2020-10-16 2020-10-16 Outpatient WATERS_S [facility] [id number] [place] 02:24:00 02:24:00 0720 [facility] 2020-10-16 2020-10-16 Outpatient Finn, [facility] [id number] 00:00:00 00:00:00 Roula [id number] 2020-09-28 2020-09-28 Outpatient WATERS_S [facility] [id number] [place] 12:14:00 12:14:00 0702 [facility] 2020-09-28 2020-09-28 Outpatient Finn, [facility] [id number] 00:00:00 00:00:00 Roula [id number] 2020-09-28 2020-09-28 Outpatient Finn, [facility] [id number] [id number] 00:00:00 00:00:00 Roula [id number] 2020-08-30 2020-08-30 Outpatient WATERS_S [facility] [id number] [place] 05:28:00 05:28:00 0603 [facility] 2020-08-26 2020-08-26 Outpatient WATERS_S [facility] [id number] [place] 01:01:00 01:01:00 0530 [facility] 2020-08-20 2020-08-20 Outpatient WATERS_S [facility] [id number] [place] 05:07:00 05:07:00 0524 [facility] 2020-08-20 2020-08-20 Outpatient Finn, [facility] [id number] 00:00:00 00:00:00 Roula [id number] 2020-08-16 2020-08-16 Outpatient SUSTACHE, [facility] [id number] [place] 00:00:00 00:00:00 SHIELA Connolly[address] 2020-08-13 2020-08-13 Outpatient WATERS_S [facility] 2020 [place] 04:15:00 04:15:00 0517 [facility] 2020-08-13 2020-08-13 Outpatient Finn, [facility] [id number] 00:00:00 00:00:00 Roula [id number] 2020-07-26 2020-07-26 Outpatient WATERS_S [facility] [id number] [place] 05:04:00 05:04:00 0429 [facility] 2020-07-26 2020-07-26 Outpatient Finn, [facility] [id number] 00:00:00 00:00:00 Roula [id number] 2020-07-24 2020-07-24 Outpatient SUSTACHE, [facility] [id number] [place] 00:00:00 00:00:00 SHIELA Borges[address] 2020-07-23 2020-07-23 Emergency E ANNABELLE, [facility] [id number] [facility] 16:54:00 18:17:00 NICHELLE 2020-03-09 2020-03-09 Outpatient SHIAV, [facility] [id number] [facility] 11:08:00 23:59:00 LUCIEN 2018-07-28 2018-07-28 Outpatient [facility] [id number] [facility] 01:39:00 01:39:00 Results Test Description Test Time Test Comments Results Result Comments Source POC urinalysis dipstick 2021-08-21 19:36:00 Test Item Value Reference Range Interpretation Comme nts Color urine, POC (test code = Yellow 0808259) Clarity urine, POC (test code = Clear 6370759) Glucose urine, POC (test code = Negative Negative 8562818) Bilirubin urine, POC (test code = Negative Negative 3969610) Ketones urine, POC (test code = Negative Negative 9209871) Specific gravity urine, POC (test 1.005-1.030 code = 5153197) Blood urine, POC (test code = Trace Negative A 9832888) pH urine, POC (test code = See_Comment [Automated message] The 3899986) system which ge nerated this result transmit fabi reference range: 5.0, 5.5 , 6.0, 6.5, 7.0, 7.5, 8.0, 8.5. The reference range was not used to interpret th is result as normal/abnormal . Protein urine, POC (test code = Negative Negative 3290694) Urobilinogen urine, POC (test <2.0 See_Comment [Automated message] The code = 4295050) system which generated this result transmit fabi reference range: <=2.0. T he reference range was not u sed to interpret this result as normal/abnormal . Nitrite urine, POC (test code = Negative Negative 2605092) Leukocyte esterase urine, POC Negative Negative (test code = 0912343) Lab Interpretation (test code = Abnormal 94752-4) [facility] BLADDER SCAN/[id number] 19:36:00 Test Item Value Reference Range Interpretation Comments Volume (test code = 9975523) [facility]2018-10-05 11:22:00 RUN DATE: 01/01/18 [facility] - LAB *LIVE* PAGE 1 RUN TIME: 1122 Specimen Inquiry RUN USER: INTERFACE PATIENT: BOZENA MARSH LOC: JENNYU U #: [id number] AGE/SX: 62/F ROOM: RE12/31/17REG DR: Raz Gaspar III : 57 BED: DIS: STATUS: [facility] TLOC: SPEC #: PMC:[id number] RECD: 12/31/17 STATUS: HENRY DELGADO #: [id number] SHYANN: 12/31/[address]: Raz Gaspar III, MD ENTERED: 12/31/17 SP TYPE: SURG OTHR DR: No Primary or Family PhysicianORDERED: SURG PATH LVL 1, SURG PATH LVL 4 COPIES TO: No Primary [place] [id number] [facility] [address] [place] [id number] HISTOLOGY: TISSUE ID BLK PCS ANAIS LEV PROCEDURE DISPOSITION ____ ___ ___ ___ NASAL TURBINATE A 1 1 NASAL SEPTUM, N B 1 1 PROCEDURES: SURG PATH LVL 1 (01/01/18) SURG PATH LVL 4 (01/01/18) TISSUES: A. NASAL TURBINATE, NOS - BILATERAL INFERIOR TURBINATES B. NASAL SEPTUM, NOS - SEPTUM CPT CODES CPT CODE(S): 08887 , 55944 , , , , , FINAL DIAGNOSIS A. Inferior turbinate, bilateral, endoscopic sinus surgery: SINUS CONTENTS CONSISTENT WITH CHRONIC SINUSITIS B. Nasal septum, septoplasty: BONE AND CARTILAGE(GROSS ONLY) GROSS DESCRIPTION A. Bilateral inferior turbinates. Received in formalin are irregular fragments of sauceda-brown soft tissue admixed with dark brown blood clots, 2.7 x 1.8 x 1.0 cm in aggregate. Skein Drier sections submitted as A. B. Septum. Received in formalin are multiple irregular fragments of cartilage CONTINUED ON NEXT PAGE RUN DATE: 01/01/18 [facility] - LAB *LIVE* PAGE2 RUN TIME: 1122 Specimen Inquiry RUN USER: INTERFACE SPEC #: [facility]:[id number] PATIENT: BOZENA MARSH #[id number] (Continued) GROSS DESCRIPTION (Continued) and bones, 5.0 x 3.5 x 0.7 cm in aggregate. The specimen is photographed for gross identification only. ba/nr Grossing performed at [facility] Pathology, [address] [place] [address], [address], [place] [address]. Yardage Estimator: Ralph Dash M.D. MICROSCOPIC DESCRIPTION A. Bilateral inferior turbinates. Fragments of respiratory epithelium lined mucosa. There are benign mucus glands and a chronic inflammatory infiltrate. Fragments of unremarkable cartilage and bone present. No evidence of malignancy. B. Septum. For gross identification only. /doug Signed SIGNATURE ON FILE Kel Chatterjee 01/01/18 1122 END OF REPORT
[2021-12-10] MEDS ORDERED: NA CHLORIDE 0.9% 1,000 ML ONE (08:19)
--- NOTE | 2021-12-10 08:35 | RAD REPORT ---
EXAM DESCRIPTION: RAD - Chest Single View - 12/10/2021 8:28 am CLINICAL HISTORY: weaknessabdominal pain COMPARISON: February 2021 TECHNIQUE: AP portable chest image was obtained 12/10/2021 8:28 am . FINDINGS: No peripheral mass or consolidation. Interstitial pattern is accentuated by slightly shall ow inspiration and a more under penetrated film technique. Acute lung parenchymal process is not susp ected. Heart and vasculature are normal. No measurable pleural effusion and no pneumothorax. No acute bony abnormality seen. No acute aortic findings suspected. IMPRESSION: No acute cardiopulmonary process. No significant change from comparison study.
[2021-12-10] MEDS ORDERED: ASPIRIN 81 MG CHEWABLE TABLET ONE (08:55)
[2021-12-10 09:00] LABS: Absolute Lymphocytes (CBC) 1.2 K/uL (0.7-4.9); Hematocrit 47.2 % (36.0-45.0); Lymphocytes % 16.3 % (15.3-44.8); MCV 89.3 fL (80-100); MPV 8.3 fL (7.6-11.3); RBC Red Blood Cell Count 5.28 M/uL (3.86-4.86)
[2021-12-10 09:14] LABS: Albumin 3.4 g/dL (3.4-5.0); Bilirubin Direct 0.2 mg/dL (0-0.2); Bilirubin Total 0.8 mg/dL (0.2-1.0); Magnesium 2.1 mg/dL (1.8-2.4); Potassium 3.6 mmol/L (3.5-5.1); Protein, Total 6.9 g/dL (6.4-8.2); Troponin High Sensitivity 3.8 pg/mL (<58.9)
[2021-12-10 11:09] LABS: Urine Blood Trace-intact (Negative); Urine Glucose Negative (Negative); Urine Protein Negative (Negative); Urine Specific Gravity 1.015 (1.005-1.030); Urine pH 6.5 (5.0-7.0)
[2021-12-10 11:30] LABS: Urine Bacteria <20 /HPF (<20); Urine Mucus Slight /HPF (None Seen); Urine RBC <5 /HPF (None Seen)
--- NOTE | 2021-12-10 12:34 | EDPHYS ---
Physician Documentation [facility] Name: Tracey Rodriguez Age: 66 yrs Sex: Female : 1955 Arrival Date: 12/10/2021 Time: 07:57 Bed 16 Private MD: ED Physician Piter Ravi HPI: 12/10 12:17 This 66 yrs old Female presents to ER via EMS with complaints of weakness. snw 12:17 pt with generalized weakness, feeling ill, no energy. Unsure if she is having trouble snw with sinuses, reaction to antibiotics, ingrown toenail, of why she is feeling so poorly. Onset: The symptoms/episode began/occurred acutely. Severity of symptoms: At their worst the symptoms were mild moderate in the emergency department the symptoms are unchanged. The patient has experienced similar episodes in the past, multiple times. The patient has been recently seen by a physician: The patient has been recently seen at an urgent care, yesterday, for similar complaints. Historical: - Allergies: 08:02 anti-inflammatory (all); jd3 08:02 Ciprofloxacin; jd3 08:02 fluoroquinolones; jd3 08:02 Levaquin; jd3 08:02 Sulfa (Sulfonamide Antibiotics); jd3 - Home Meds: 12:25 Trimethoprim Oral [Active]; metoprolol tartrate Oral [Active]; Omeprazole Oral [Active];jd3 - PMHx: 08:02 Diverticulitis; jd3 - PSHx: 08:02 Colectomy; Ligation of fallopian tube; carpal tunnal repair; jd3 - Immunization history:: Adult Immunizations up to date, Client reports having NOT received the Covid vaccine. Flu vaccine is not up to date. - Social history:: Smoking status: Patient denies any tobacco usage or history of. ROS: 12:15 Eyes: Negative for injury, pain, redness, and discharge, ENT: Negative for injury, snw pain, and discharge, Neck: Negative for injury, pain, and swelling. 12:15 Cardiovascular: Negative for chest pain, palpitations, and edema, Respiratory: Negative for shortness of breath, cough, wheezing, and pleuritic chest pain, Abdomen/GI: Negative for abdominal pain, nausea, vomiting, diarrhea, and constipation, Back: Negative for injury and pain, : Negative for injury, bleeding, discharge, and swelling, MS/Extremity: Negative for injury and deformity. 12:15 Constitutional: Positive for fatigue, malaise, generalized weakness. 12:15 Skin: Positive for ingrown toenail to right great toe. 12:15 Neuro: Positive for weakness. Exam: 08:44 Head/Face: Normocephalic, atraumatic. Eyes: Pupils equal round and reactive to light, snw extra-ocular motions intact. Lids and lashes normal. Conjunctiva and sclera are non-icteric and not injected. Cornea within normal limits. Periorbital areas with no swelling, redness, or edema. ENT: Nares patent. No nasal discharge, no septal abnormalities noted. Tympanic membranes are normal and external auditory canals are clear. Oropharynx with no redness, swelling, or masses, exudates, or evidence of obstruction, uvula midline. Mucous membranes moist. Neck: Trachea midline, no thyromegaly or masses palpated, and no cervical lymphadenopathy. Supple, full range of motion without nuchal rigidity, or vertebral point tenderness. No Meningismus. Chest/axilla: Normal chest wall appearance and motion. Nontender with no deformity. No lesions are appreciated. 08:44 Respiratory: Lungs have equal breath sounds bilaterally, clear to auscultation and percussion. No rales, rhonchi or wheezes noted. No increased work of breathing, no retractions or nasal flaring. Abdomen/GI: Soft, non-tender, with normal bowel sounds. No distension or tympany. No guarding or rebound. No evidence of tenderness throughout. Back: No spinal tenderness. No costovertebral tenderness. Full range of motion. MS/ Extremity: Pulses equal, no cyanosis. Neurovascular intact. Full, normal range of motion. Neuro: Awake and alert, GCS 15, oriented to person, place, time, and situation. Cranial nerves II-XII grossly intact. Motor strength 5/5 in all extremities. Sensory grossly intact. Cerebellar exam normal. Normal gait. Psych: Awake, alert, with orientation to person, place and time. Behavior, mood, and affect are within normal limits. 08:44 Constitutional: The patient appears alert, awake, listless. 08:44 Cardiovascular: Rate: bradycardic, Rhythm: regular, Pulses: no pulse deficits are appreciated, Heart sounds: S3, Edema: is not appreciated, JVD: is noted bilaterally. 08:44 Skin: Appearance: normal except for affected area, injury, right great toe ingrown removed recently, + exudate to lateral margin. 08:44 Special observations: when in room for eval, BP 90/52. Vital Signs: 08:03 BP 147 / 77; Pulse 69; Resp 20 S; Temp 98.3(O); Pulse Ox 99% on R/A; Weight 92.08 kg jd3 (R); Height 5 ft. 3 in. (160.02 cm) (R); Pain 7/10; 08:57 BP 118 / 64; Pulse 65; Resp 16; Pulse Ox 100% on R/A; jd3 10:40 BP 100 / 50; Pulse 60; Resp 13; Pulse Ox 99% on R/A; em6 12:00 BP 115 / 69 Supine; Pulse 66; Resp 12; Pulse Ox 98% on R/A; jd3 12:00 BP 135 / 80 Sitting; Pulse 59; Resp 13; Pulse Ox 100% on R/A; jd3 12:00 BP 121 / 83 Standing; Pulse 69; Resp 17; Pulse Ox 88% on R/A; jd3 08:03 Body Mass Index 35.96 (92.08 kg, 160.02 cm) jd3 MDM: 08:11 Patient medically screened. snw 12:36 Data reviewed: vital signs, nurses notes, lab test result(s), EKG. Data interpreted: snw Pulse oximetry: on room air is 99 %. Counseling: I had a detailed discussion with the patient and/or guardian regarding: the historical points, exam findings, and any diagnostic results supporting the discharge/admit diagnosis, the presence of at least one elevated blood pressure reading (>120/80) during this emergency department visit, lab results, radiology results, the need for outpatient follow up, to return to the emergency department if symptoms worsen or persist or if there are any questions or concerns that arise at home. Special discussion: I have referred the patient to see his PCP for further evaluation of high blood pressure. Based on the history and exam findings, there is no indication for further emergent testing or inpatient evaluation. I discussed with the patient/guardian the need to see the primary care provider for further evaluation of the symptoms. 12/10 08:13 Order name: Basic Metabolic Panel snw 12/10 08:13 Order name: CBC with Diff; Complete Time: 09:09 12/10 08:13 Order name: LFT's; Complete Time: 09:15 12/10 08:13 Order name: Magnesium; Complete Time: 09:15 12/10 08:13 Order name: NT PRO-BNP; Complete Time: 09:15 sn12/10 08:13 Order name: PT-INR 12/10 08:13 Order name: Troponin HS; Complete Time: 09:15 sn12/10 08:13 Order name: Blood Culture Adult (2) 12/10 08:13 Order name: CMP; Complete Time: 09:15 12/10 08:13 Order name: Lactate; Complete Time: 09:15 12/10 08:13 Order name: Ptt, Activated 12/10 08:13 Order name: Urine Culture 12/10 08:13 Order name: Urine Microscopic Only; Complete Time: 11:36 12/10 08:13 Order name: Urine Sodium Random; Complete Time: 11:29 12/10 08:13 Order name: XRAY Chest (1 view); Complete Time: 08:37 12/10 08:13 Order name: EKG; Complete Time: 08:14 12/10 08:13 Order name: Cardiac monitoring; Complete Time: 08:40 12/10 08:13 Order name: EKG - Nurse/Tech; Complete Time: 08:57 12/10 08:13 Order name: IV Saline Lock; Complete Time: 08:40 12/10 08:13 Order name: Labs collected and sent; Complete Time: 08:40 12/10 08:13 Order name: O2 Per Protocol; Complete Time: 08:40 12/10 08:13 Order name: O2 Sat Monitoring; Complete Time: 08:40 12/10 08:13 Order name: Accucheck; Complete Time: 08:57 12/10 08:13 Order name: IV Saline Lock - Large Bore; Complete Time: 08:57 12/10 10:34 Order name: EKG; Complete Time: 10:35 12/10 10:34 Order name: EKG - Nurse/Tech; Complete Time: 10:47 w 12/10 11:10 Order name: Urine Dipstick-Ancillary; Complete Time: 11:11 EDMS 12/10 11:13 Order name: Orthostatics; Complete Time: 12:08 snw 12/10 11:37 Order name: Misc. Order: Please document home medications; Complete Time: 12:26 snw EC:55 Rate is 54 beats/min. Rhythm is regular. QRS interval is normal. QT interval is normal. snw Clinical impression: 2nd degree heart block and Sinus bradycardia. 10:45 Rate is 53 beats/min. Rhythm is regular. QRS [place] is Normal. TN interval is normal. QRS snw interval is normal. Clinical impression: NSR w/ Non-specific ST/T Changes. Administered Medications: 08:56 Drug: Aspirin Chewable Tablet 324 mg Route: PO; jd3 09:30 Follow up: Response: No adverse reaction em6 08:56 Drug: NS 0.9% 1000 ml Route: IV; Rate: 1 bolus; Site: left antecubital; jd3 12:58 Follow up: Response: No adverse reaction; IV Status: Completed infusion em6 Disposition Summary: 12/10/21 12:33 Discharge Ordered Location: Home snw Condition: Stable snw Diagnosis - Volume depletion, unspecified snw Followup: snw - With: Emergency Department - When: As needed - Reason: Worsening of condition Followup: snw - With: Private Physician - When: 5 - 6 days - Reason: Recheck today's complaints, Continuance of care, Re-evaluation by your physician Discharge Instructions: - Discharge Summary Sheet snw - Bradycardia, Adult snw - Dehydration, Adult snw - Rehydration, Adult snw - Managing Your Hypertension snw Forms: - Medication Reconciliation Form snw - Thank You Letter snw - Antibiotic Education snw - Prescription Opioid Use snw Signatures: Dispatcher [employer] EDRoula Mehta FNP-C INSPECTOR OUTSIDE [employer]ODUCTION-Bran Rivera RN RN Aiyana Delaney RN em6
--- NOTE | 2021-12-10 12:34 | ER ---
Nurse's Notes [facility] Name: Tracey Rodriguez Age: 66 yrs Sex: Female : 1955 Arrival Date: 12/10/2021 Time: 07:57 Bed 16 Private MD: Diagnosis: Volume depletion, unspecified Presentation: 12/10 07:58 Chief complaint: EMS states: "pt is reporting nausea and stomach pain. she does report jd3 she does have a history of diverticulitis. she is also reporting that was recently placed on a new antibiotic for her chronic UTI's and thinks that is making everything worse. she also reported that she recently had an ingrown toenail taken out at the nail salon and that she thinks that is getting infected. she is also reporting a headache. she reports over all feeling shaky, eyes burning, and dehydrated. she also reported she was seen at [facility] last night and was tested for COVID, flu, and strep and they were all negative.". Coronavirus screen: At this time, the client does not indicate any symptoms associated with coronavirus-19. Ebola Screen: No symptoms or risks identified at this time. Initial Sepsis Screen: Does the patient meet any 2 criteria? No. Patient's initial sepsis screen is negative. Does the patient have a suspected source of infection? No. Patient's initial sepsis screen is negative. Risk Assessment: Do you want to hurt yourself or someone else? Patient reports no desire to harm self or others. Onset of symptoms was December 08, 2021. 07:58 Acuity: ANUJA 3 jd3 07:58 Method Of Arrival: EMS: [facility] jd3 Historical: - Allergies: 08:02 anti-inflammatory (all); jd3 08:02 Ciprofloxacin; jd3 08:02 fluoroquinolones; jd3 08:02 Levaquin; jd3 08:02 Sulfa (Sulfonamide Antibiotics); jd3 - Home Meds: 12:25 Trimethoprim Oral [Active]; metoprolol tartrate Oral [Active]; Omeprazole Oral [Active];jd3 - PMHx: 08:02 Diverticulitis; jd3 - PSHx: 08:02 Colectomy; Ligation of fallopian tube; carpal tunnal repair; jd3 - Immunization history:: Adult Immunizations up to date, Client reports having NOT received the Covid vaccine. Flu vaccine is not up to date. - Social history:: Smoking status: Patient denies any tobacco usage or history of. Screenin:07 Abuse screen: Denies threats or abuse. Nutritional screening: No deficits noted. jd3 Tuberculosis screening: No symptoms or risk factors identified. Fall Risk IV access (20 points). Ambulatory Aid- None/Bed Rest/Nurse Assist (0 pts). Gait- Normal/Bed Rest/Wheelchair (0 pts) Mental Status- Oriented to own ability (0 pts). Total Cullen Fall Scale indicates No Risk (0-24 pts). Assessment: 08:04 General: Appears in no apparent distress. comfortable, Behavior is calm, cooperative, jd3 appropriate for age. Pain: Complains of pain in head, abdomen and back of neck Quality of pain is described as aching, crampy, pressure. Neuro: Cody Agitation-Sedation Scale (RASS): 0 - Alert and Calm Level of Consciousness is awake, alert, obeys commands, Oriented to person, place, time, situation. Cardiovascular: Capillary refill < 3 seconds Patient's skin is warm and dry. Rhythm is regular. Respiratory: Airway is patent Respiratory effort is even, unlabored, Respiratory pattern is regular, symmetrical, Denies cough, shortness of breath. GI: Abdomen is non-distended, Abd is soft and non tender X 4 quads. Reports lower abdominal pain, upper abdominal pain, nausea, vomiting. : No signs and/or symptoms were reported regarding the genitourinary system. EENT: No signs and/or symptoms were reported regarding the EENT system. Derm: Skin is intact, Skin is dry, Skin is normal, Skin temperature is warm. Musculoskeletal: Circulation, motion, and sensation intact. Range of motion: intact in all extremities. 08:57 Reassessment: Patient appears in no apparent distress at this time. No changes from jd3 previously documented assessment. Patient and/or family updated on plan of care and expected duration. Pain level reassessed. Patient is alert, oriented x 3, equal unlabored respirations, skin warm/dry/pink. 10:00 Reassessment: Patient appears in no apparent distress at this time. No changes from em6 previously documented assessment. Patient and/or family updated on plan of care and expected duration. Pain level reassessed. Patient is alert, oriented x 3, equal unlabored respirations, skin warm/dry/pink. 11:00 Reassessment: Patient appears in no apparent distress at this time. No changes from em6 previously documented assessment. Patient and/or family updated on plan of care and expected duration. Pain level reassessed. Patient is alert, oriented x 3, equal unlabored respirations, skin warm/dry/pink. 12:00 Reassessment: Patient appears in no apparent distress at this time. No changes from em6 previously documented assessment. Patient and/or family updated on plan of care and expected duration. Pain level reassessed. Patient is alert, oriented x 3, equal unlabored respirations, skin warm/dry/pink. Reassessment: Patient appears in no apparent distress at this time. No changes from previously documented assessment. Patient and/or family updated on plan of care and expected duration. Pain level reassessed. Patient is alert, oriented x 3, equal unlabored respirations, skin warm/dry/pink. Vital Signs: 08:03 BP 147 / 77; Pulse 69; Resp 20 S; Temp 98.3(O); Pulse Ox 99% on R/A; Weight 92.08 kg jd3 (R); Height 5 ft. 3 in. (160.02 cm) (R); Pain 7/10; 08:57 BP 118 / 64; Pulse 65; Resp 16; Pulse Ox 100% on R/A; jd3 10:40 BP 100 / 50; Pulse 60; Resp 13; Pulse Ox 99% on R/A; em6 12:00 BP 115 / 69 Supine; Pulse 66; Resp 12; Pulse Ox 98% on R/A; jd3 12:00 BP 135 / 80 Sitting; Pulse 59; Resp 13; Pulse Ox 100% on R/A; jd3 12:00 BP 121 / 83 Standing; Pulse 69; Resp 17; Pulse Ox 88% on R/A; jd3 08:03 Body Mass Index 35.96 (92.08 kg, 160.02 cm) jd3 ED Course: 07:57 Patient arrived in ED. jd3 08:02 Triage completed. jd3 08:04 Arm band placed on. jd3 08:07 Patient has correct armband on for positive identification. Bed in low position. Call j light in reach. Side rails up X2. Client placed on continuous cardiac and pulse oximetry monitoring. NIBP monitoring applied. property assessment monitor on. Pulse ox on. NIBP on. Warm blanket given. 08:08 Roula Finn FNP-C is PHCP. snw 08:08 Osvaldo Carpenter MD is Attending Physician. snw 08:08 Roula Finn FNP-C is PHCP. snw 08:08 Piter Ravi MD is Attending Physician. snw 08:24 Bran Norton RN is Primary Nurse. jd3 08:30 XRAY Chest (1 view) In Process Unspecified. EDMS 08:41 Maintain EMS IV. Dressing intact. Good blood return noted. Site clean \\T\\ dry. Gauge \\T\\ mb 7 site: 20 gauge in left AC.. 08:41 CBC with Diff Sent. mb7 08:41 LFT's Sent. mb7 08:41 Magnesium Sent. mb7 08:41 NT PRO-BNP Sent. mb7 08:41 PT-INR Sent. mb7 08:41 Troponin HS Sent. mb7 08:42 CMP Sent. mb7 08:42 Lactate Sent. mb7 08:42 Ptt, Activated Sent. mb7 08:59 EKG done, by ED staff, reviewed by Roula ALMENDAREZ. mb7 09:17 Inserted saline lock: 22 gauge in right wrist, using aseptic technique. jd3 13:08 No provider procedures requiring assistance completed. IV discontinued, intact, em6 bleeding controlled, No redness/swelling at site. Pressure dressing applied. Administered Medications: 08:56 Drug: Aspirin Chewable Tablet 324 mg Route: PO; jd3 09:30 Follow up: Response: No adverse reaction em6 08:56 Drug: NS 0.9% 1000 ml Route: IV; Rate: 1 bolus; Site: left antecubital; jd3 12:58 Follow up: Response: No adverse reaction; IV Status: Completed infusion em6 Medication: 08:07 VIS not applicable for this client. jd3 Outcome: 12:33 Discharge ordered by . snw 13:08 Discharged to home via wheelchair, with family. em6 13:08 Condition: stable 13:08 Discharge instructions given to patient, family, Instructed on discharge instructions, follow up and referral plans. Demonstrated understanding of instructions, follow-up care. 13:09 Patient left the ED. em6 Signatures: Dispatcher [employer] EDMS Huma Roula, WIRE WEAVER CLOTH-C WIRE WEAVER CLOTH-Csnw Bran Norton, RN RN jd3 [facility]7 Aiyana Vazquez, RN RN em6
[2021-12-10 13:10] LABS: Protime INR 1.02
[2021-12-10 14:48] VITALS: TEMP 98.3
[2021-12-10 15:07] VITALS: BP 121/83; O2SAT 88
--- NOTE | 2021-12-11 17:12 | EKG ---
Test Date: 2021-12-10 Test Time: 10:44:53 Crane Mechanic: MB MEASUREMENT RESULTS: Intervals: Rate: 53 SD: 132 QRSD: 76 QT: 422 QTc: 395 [place]: P: 58 SD: 132 QRS: -34 T: -18 INTERPRETIVE STATEMENTS: Sinus bradycardia Left axis deviation Low voltage QRS Nonspecific ST and T wave abnormality Abnormal ECG Compared to ECG 03/07/2021 12:07:22 Left-axis deviation now present Low QRS voltage now present ST (T wave) deviation still present Electronically Signed On 12-11-21 17:07:03 CDT by Akin Rahman
--- NOTE | 2021-12-11 17:13 | EKG ---
Test Date: 2021-12-10 Test Time: 08:53:25 Assistant Program Director: MB MEASUREMENT RESULTS: Intervals: Rate: 54 GA: 138 QRSD: 78 QT: 418 QTc: 396 [place]: P: 60 GA: 138 QRS: -39 T: -16 INTERPRETIVE STATEMENTS: Sinus bradycardia Left axis deviation Low voltage QRS Nonspecific ST abnormality Abnormal ECG Compared to ECG 03/07/2021 12:07:22 Left-axis deviation now present Low QRS voltage now present ST (T wave) deviation still present Electronically Signed On 12-11-21 17:07:10 CDT by Akin Rahman
== END 2021-12-10 13:09 | disposition home or self-care (01) ==
LOC: ER 07:47
DX: E86.9 Volume depletion, unspecified (principal); Z88.1 Allergy status to other antibiotic agents; Z88.2 Allergy status to sulfonamides; Z88.5 Allergy status to narcotic agent; Z88.8 Allergy status to other drugs, medicaments and biological substances
CPT/HCPCS: 96361; 93005 ×2; 87040 ×2; 87088; 85025; 87086; 36415; 83735; 87205 ×2; 85610; 84300; 80076; 83605; 85730; 87077; 87186; 84484; 80053; 83880; 71045; 96360; 99285; J7030; 81003; 81015

== ENCOUNTER 2022-01-22 07:29 | Emergency (ER) | payer OTHER ==
--- OUTSIDE RECORDS SUMMARY | 2022-01-22 07:36 | XMS REPORT | Continuity of Care Document ---
:1955 Author Organization [facility] t Address [address] [place] [address] Care Team Providers Name Role Phone Silvio Babin MD, Shiela Primary Care Physician [phone] LUCIEN SHANNON Attending Clinician Unavailable KHALIDA Attending Clinician Unavailable Emily Vazquez MD Attending Clinician [phone] Elvia Arauz Attending Clinician Unavailable Willy Lopez Attending Clinician [phone] CHIVO Attending Clinician Unavailable Emily Longoria Attending Clinician [phone] MATTHEW NAGY Attending Clinician Unavailable Kaitlin Block Attending Clinician [phone] LUCIEN SHANNON Attending Clinician Unavailable JONATHAN Attending Clinician Unavailable GISEL Attending Clinician Unavailable Provider , Not In System Attending Clinician Unavailable Ginna Lord MA Attending Clinician Unavailable Roula Finn Attending Clinician [phone] SHIELA RASMUSSEN Attending Clinician Unavailable NICHELLE ALANIS Attending Clinician Unavailable SISFABIOLA_Newton Admitting Clinician Unavailable Elvia Arauz Admitting Clinician Unavailable CHRETIPATRIC_F Admitting Clinician Unavailable LEVIDONYA Admitting Clinician Unavailable GISEL Admitting Clinician Unavailable Payers Payer Name Policy Type Policy Number Effective Date Expiration Date S giselle AETNA CHOICE POS [id number] 2002 2002 II 00:00:00 00:00:00 MEDICARE [place]: [id number] 2021 [employer] 00:00:00 AETNA (INDEMNITY) [id number] 2002 00:00:00 MEDICARE A-[place]: [id number] 2021 [employer] 00:00:00 - [facility] MEDICARE PART A [id number] 2021 AND B 00:00:00 AETNA (POS) [id number] 2020 00:00:00 Problems Condition Condition Condition Status Onset Resolution Last Treating Co mments Source Name Details Category Date Date Treatment Clinician Date Contact Contact Problem Active [facility] dermatitis Dermatitis 8-12 Co [facility]i 00:00: ty 00 [facility] Pruritic Pruritic Problem Active [facility] rash Rash 8-12 [facility] 00:00: ty 00 [facility] Ganglion Ganglion Problem Active [facility] cyst of Cyst of 812 [facility] left hand Left Hand 00:00: ty 00 [facility] Depressive Depressive Problem Active S [facility] disorder Disorder 7 Commun i 00:00: ty 00 [facility] Conjunctiv Conjunctiv Problem Active S [facility] itis itis 7 [facility]i 00:00: ty 00 [facility] Acute Acute Problem Active [place] sinusitis Sinusitis 7- Comm uni 00:00: ty 00 [facility] Urinary Urinary Problem Active [place] tract Tract 7- Communi infectious Infectious 00:00: ty disease Disease 00 [facility] Diverticul Diverticul Problem Active S weeny itis itis 07-26 [facility]i 00:00: ty 00 [facility] Clin[facility] No known No known Disease Metho di active active st problems problems Hospit a l Allergies, Adverse Reactions, Alerts Allergy Allergy Status Severity Reaction(s) Onset Inactive Treating Comm ents Source Name Type Date Date Clinician FLUROQUI DA Active [facility] HISTORY OF 12-27 Maxine an ALLERGIC 00:00: d [facility] ciproflo DA Active SV 2017-03 [facility] xacin 0- [place] [facility]: d [facility] levoflox DA Active SV 2017-03 [facility] acin 0 [place] 00:[facility]: d [facility] ANTI DA Active U UNKNOWN 2017-03 [facility] INFLAMMA 0 [place] TORY PO 00:00: d MEDS 00 [facility] ciproflo DA Active SV LEG WEEKNESS 2017-03 HC A xacin 0- [place] 00:00: d 00 [facility] levoflox DA Active SV LOWER EXT 2017-03 [facility] acin WEEKNESS [place] 00:00: d 00 [facility] Ciproflo Propensi Active Method i xacin ty to 3 st adverse 00:00: Hospita reaction 00 l s to drug Sulfa Propensi Active Methodi (Sulfona ty to 3 st mide adverse 00:00: Hospita Antibiot reaction 00 l ics) s to drug Levoflox Propensi Active Swelling Meth eris acin ty to 04-08 st adverse 00:00: Hospita reaction 00 l s to drug Nsaids Propensi Active Swelling Method i (Non-Dragan ty to 04-08 st roidal adverse 00:00: Hospita Anti-Inf reaction 00 l lammator s to y Drug) drug Ciprofib Propensi Active Swelling Meth eris rate ty to 04-08 st adverse 00:00: Hospita reaction 00 l s to drug NSAIDS Allergy Active [place] (NON-DRAGAN to Communi ROIDAL substanc ty ANTI-INF e Hospita LAMMATOR l Y DRUG) Clinics QUINOLON Allergy Active [place] ES to Communi substanc ty e Hospita l Clinics Family History Family Member Diagnosis Comments Start Date Stop Date Source Natural father Heart disease [facility] Natural mother Cancer [facility] Social History Social Habit Start Date Stop Date Quantity Comments Source Alcohol intake 2021-08-21 2021-08-21 Current [facility] 00:00:00 00:00:00 non-drinker of Hospital alcohol (finding) Tobacco use and 2017-06-05 2017-06-05 Smokeless tobacco [facility] exposure 00:00:00 00:00:00 non-user Hospital Sex [birth year] [facility] 00:00:00 00:00:00 Hospital Smoking Status Start Date Stop Date Source Never smoked tobacco [facility] Medications Ordered Filled Start Stop Current Ordering Indication Dosage Frequency Signature Comments Components Source Medication Medication Date Date Medication? Clinician (SIG) Name Name Kenalog 40 Kenalog 40 No Q1D Kenalog 40 [place] mg/mL mg/mL 8-12 mg/mL Communi suspension suspension 10:50: suspension ty for for 00 for Hospita injectionTa injectionTa injectionT l ke 60 mg ke 60 mg tatianna 60 mg Cl inics every day every day every day by by by injection injection injection route. route. route. amoxicillin 2021- No 1{tbl} Q.5D Take 1 M ethodi -pot 6-15 06-[address] clavulanate 00:00: 04:59 mouth 2 Ho spita (AUGMENTIN) 00 :00 (two) l 875-125 mg times a per tablet day for 7 days. amoxicillin 2021- No 1{tbl} Q.5D Take 1 M ethodi -pot 6-15 06-[address] clavulanate 00:00: 04:59 mouth 2 Ho spita (AUGMENTIN) 00 :00 (two) l 875-125 mg times a per tablet day for 7 days. amoxicillin 2021- No 1{tbl} Q.5D Take 1 M ethodi -pot 6-15 06-[address] clavulanate 00:00: 04:59 mouth 2 Ho spita (AUGMENTIN) 00 :00 (two) l 875-125 mg times a per tablet day for 7 days. amoxicillin 2021- No 1{tbl} Q.5D Take 1 M ethodi -pot 6-15 06-[address] clavulanate 00:00: 04:59 mouth 2 Ho spita (AUGMENTIN) 00 :00 (two) l 875-125 mg times a per tablet day for 7 days. estradioL 2022- No 1g Q.5W Insert 1 g M ethodi (ESTRACE) 08-[address] 0.01 % (0.1 00:00: 04:59 vagina 2 H ospita mg/gram) 00 :00 (two) l vaginal times a cream week. Use nightly for the first 2 weeks estradioL 2022- No 1g Q.5W Insert 1 g M ethodi (ESTRACE) 08-22- into the st 0.01 % (0.1 00:00: 04:59 vagina 2 H ospita mg/gram) 00 :00 (two) l vaginal times a cream week. Use nightly for the first 2 weeks estradioL 2022- No 1g Q.5W Insert 1 g M ethodi (ESTRACE) 08-[address] 0.01 % (0.1 00:00: 04:59 vagina 2 H ospita mg/gram) 00 :00 (two) l vaginal times a cream week. Use nightly for the first 2 weeks estradioL 2022- No 1g Q.5W Insert 1 g M ethodi (ESTRACE) 08-[address] 0.01 % (0.1 00:00: 04:59 vagina 2 H ospita mg/gram) 00 :00 (two) l vaginal times a cream week. Use nightly for the first 2 weeks oxybutynin 2021- No 5mg QD Take 5 mg M ethodi XL 5- 05-[address] (DITROPAN-X 00:00: 00:00 daily. [facility] L) 5 MG 24 00 :00 l hr tablet oxybutynin 2021-2021- No 5mg QD Take 5 mg M ethodi XL 5- 05-[address] (DITROPAN-X 00:00: 00:00 daily. [facility] L) 5 MG 24 00 :00 l hr tablet oxybutynin 2021- No 5mg QD Take 5 mg M ethodi XL 5- 05-[address] (DITROPAN-X 00:00: 00:00 daily. [facility] L) 5 MG 24 00 :00 l hr tablet oxybutynin 2021- No 5mg QD Take 5 mg M ethodi XL 08-[address] (DITROPAN-X 00:00: 00:00 daily. [facility] L) 5 MG 24 00 :00 l hr tablet dexamethaso dexamethaso No dexamethas [place] ne sodium ne sodium 03 one sodium Communi phosphate phosphate 15:10: phosphate ty 10 mg/mL 10 mg/mL 00 10 mg/mL [facility] injection injection injection l solutionTak solutionTak solutionTa Clinics e 10 mg by e 10 mg by ke 10 mg injection injection by route. route. injection route. peg peg No peg [place] 3350-electr 3350-electr 3-03 3350-elect Communi olytes 236 olytes 236 00:00: rolytes ty gram-22.74 gram-22.74 00 236 [facility] gram-6.74 gram-6.74 gram-22.74 l gram-5.86 gram-5.86 gram-6.74 Clinics gram gram gram-5.86 solution solution gram MIX AND MIX AND solution DRINK DRINK MIX AND DIRECTED DIRECTED DRINK DIRECTED lidocaine lidocaine 2020-03 No Q1D lidocaine [place] (PF) 10 (PF) 10 0-18 (PF) 10 Commun i mg/mL (1 %) mg/mL (1 %) 17:04: mg/mL (1 ty injection injection 42 %) Hospi ta solutionTak solutionTak injection l e 2 mL e 2 mL solutionTa Clini cs every day every day ke 2 mL by by every day injection injection by route. route. injection route. Kenalog 40 Kenalog 40 2020-03 No Q1D Kenalog 40 [place] mg/mL mg/mL 0-18 mg/mL Communi suspension suspension 17:02: suspension ty for for 19 for Hospita injectionTa injectionTa injectionT l ke 0.5 mL ke 0.5 mL tatianna 0.5 mL Clinics every day every day every day by by by injection injection injection route for 1 route for 1 route for day. day. 1 day. fluticasone Yes 50ug QD 1 spray Met hodi propionate 4-27 ([address] (FLONASE) 00:00: total) by [facility] 50 00 Each Nare l mcg/actuati route on nasal daily. spray fluticasone 1-0 Yes 50ug QD 1 spray Met hodi propionate 4-27 ([address] (FLONASE) 00:00: total) by [facility] 50 00 Each Nare l mcg/actuati route on nasal daily. spray fluticasone 1-0 Yes 50ug QD 1 spray Met hodi propionate 4-27 ([address] (FLONASE) 00:00: total) by [facility] 50 00 Each Nare l mcg/actuati route on nasal daily. spray fluticasone 1-0 Yes 50ug QD 1 spray Met hodi propionate 4-27 ([address] (FLONASE) 00:00: total) by [facility] 50 00 Each Nare l mcg/actuati route on nasal daily. spray acyclovir 5 acyclovir 5 No acyclovir [place] % topical % topical 5 % Commu ni ointment ointment topical ty APPLY TO APPLY TO ointment [facility] THE THE APPLY TO l AFFECTED AFFECTED THE Clinics AREA EVERY AREA EVERY AFFECTED 2 HOURS 2 HOURS AREA EVERY DURING DURING 2 HOURS AWAKE HOURS AWAKE HOURS DURING FOR 4 DAYS FOR 4 DAYS AWAKE HOURS FOR 4 DAYS amoxicillin amoxicillin No amoxicilli [facility] 500 500 n 500 Communi mg-potassiu mg-potassiu mg-potassi ty m m um Hospita clavulanate clavulanate clavulanat l 125 mg 125 mg e 125 mg Clinics tablet TAKE tablet TAKE tablet 1 TABLET BY 1 TABLET BY TAKE 1 MOUTH EVERY MOUTH EVERY TABLET BY 12 HOURS 12 HOURS MOUTH FOR 10 DAYS FOR 10 DAYS EVERY 12 HOURS FOR 10 DAYS BinaxNOW BinaxNOW No BinaxNOW Swe venkat COVID-19 Ag COVID-19 Ag COVID-19 Communi Self Test Self Test Ag Self ty kit TEST kit TEST Test kit Hospita DIRECTED DIRECTED TEST l TODAY TODAY DIRECTED Clinics TODAY cephalexin cephalexin No cephalexin [facility] 500 mg 500 mg 500 mg Communi capsule capsule capsule ty TAKE 1 TAKE 1 TAKE 1 Hospita CAPSULE BY CAPSULE BY CAPSULE BY l MOUTH TWICE MOUTH TWICE MOUTH Clinics DAILY DAILY TWICE DAILY estradiol estradiol No estradiol [facility] 0.01% (0.1 0.01% (0.1 0.01% (0.1 Communi mg/gram) mg/gram) mg/gram) ty vaginal vaginal vaginal Hospit a cream cream cream l INSERT 1 INSERT 1 INSERT 1 Cli nics GRAM INTO GRAM INTO GRAM INTO VAGINA VAGINA VAGINA TWICE A TWICE A TWICE A WEEK AT WEEK AT WEEK AT NIGHT. NIGHT. NIGHT. fluconazole fluconazole No fluconazol [facility] 150 mg 150 mg e 150 mg Communi tablet tablet tablet ty Hospita l Clinics hydroxyzine hydroxyzine No hydroxyzin [facility] HCl 25 mg HCl 25 mg e HCl 25 C om[facility]i tablet TAKE tablet TAKE mg tablet ty 1 TABLET BY 1 TABLET BY TAKE 1 Hospita MOUTH THREE MOUTH THREE TABLET BY l TIMES DAILY TIMES DAILY MOUTH Clinics FOR 3 DAYS FOR 3 DAYS THREE NEEDED NEEDED TIMES DAILY FOR 3 DAYS NEEDED Kenalog 40 Kenalog 40 No 60mg Q1D Kenalog 40 [place] mg/mL mg/mL mg/mL Commun[facility] suspension suspension suspension ty for for for Hospita injection injection injection l Take 60 mg Take 60 mg Take 60 mg Clinics every day every day every day by by by injection injection injection route. route. route. metoprolol metoprolol No metoprolol [facility] succinate succinate succinate Communi ER 25 mg ER 25 mg ER 25 mg ty tablet,exte tablet,exte tablet,ext Hospita nded nded ended l release 24 release 24 release 24 Clinics hr TAKE 1 hr TAKE 1 hr TAKE 1 TABLET BY TABLET BY TABLET BY MOUTH EVERY MOUTH EVERY MOUTH DAY DAY EVERY DAY metronidazo metronidazo No metronidaz [facility] le 500 mg le 500 mg ole 500 mg Communi tablet TAKE tablet TAKE tablet ty 1 TABLET BY 1 TABLET BY TAKE 1 Hospita MOUTH EVERY MOUTH EVERY TABLET BY l 8 HOURS FOR 8 HOURS FOR MOUTH Clinics 7 DAYS 7 DAYS EVERY 8 HOURS FOR 7 DAYS omeprazole omeprazole No omeprazole [facility] 20 mg 20 mg 20 mg Communi capsule,del capsule,del capsule,de ty ayed ayed layed Hospita release release release l TAKE 1 TAKE 1 TAKE 1 Clinics CAPSULE BY CAPSULE BY CAPSULE BY MOUTH DAILY MOUTH DAILY MOUTH DAILY ondansetron ondansetron No ondansetro [facility] 4 mg 4 mg n 4 mg Communi disintegrat disintegrat disintegra ty ing tablet ing tablet ting [facility] DISSOLVE 1 DISSOLVE 1 tablet l TABLET ON TABLET ON DISSOLVE 1 Clinics THE TONGUE THE TONGUE TABLET ON EVERY 6 EVERY 6 THE TONGUE HOURS FOR 6 HOURS FOR 6 EVERY 6 DAYS DAYS HOURS FOR NEEDED NEEDED 6 DAYS NEEDED paroxetine paroxetine No paroxetine [facility] ER 25 mg ER 25 mg ER 25 mg Com ricci tablet,exte tablet,exte tablet,ext ty nded nded ended Hospita release 24 release 24 release 24 l hr TAKE 1 hr TAKE 1 hr TAKE 1 Clinics TABLET BY TABLET BY TABLET BY MOUTH EVERY MOUTH EVERY MOUTH DAY DAY EVERY DAY tobramycin tobramycin No tobramycin [facility] 0.3 0.3 0.3 Communi %-dexametha %-dexametha %-dexameth ty sone 0.1 % sone 0.1 % asone 0.1 Hospita eye eye % eye l drops,suspe drops,suspe drops,susp Clinics nsion SHAKE nsion SHAKE ension LIQUID AND LIQUID AND SHAKE INSTILL ONE INSTILL ONE LIQUID AND DROP INTO DROP INTO INSTILL AFFECTED AFFECTED ONE DROP EYE EVERY 6 EYE EVERY 6 INTO HOURS FOR 5 HOURS FOR 5 AFFECTED DAYS DAYS EYE EVERY 6 HOURS FOR 5 DAYS triamcinolo triamcinolo No triamcinol [facility] ne ne one Communi acetonide acetonide acetonide ty 0.1 % 0.1 % 0.1 % Hospita topical topical topical l cream APPLY cream APPLY cream Clinics THIN LAYER THIN LAYER APPLY THIN TOPICALLY TOPICALLY LAYER TO THE TO THE TOPICALLY AFFECTED AFFECTED TO THE AREA TWICE AREA TWICE AFFECTED DAILY FOR 7 DAILY FOR 7 AREA TWICE DAYS DAYS DAILY FOR 7 DAYS trimethopri trimethopri No trimethopr [facility] m 100 mg m 100 mg im 100 mg Co [facility]i tablet TAKE tablet TAKE tablet ty 1 TABLET BY 1 TABLET BY TAKE 1 Hospita MOUTH EVERY MOUTH EVERY TABLET BY l DAY DAY MOUTH Clinics EVERY DAY valacyclovi valacyclovi No valacyclov [facility] r 1 gram r 1 gram ir 1 gram [facility] tablet TAKE tablet TAKE tablet ty 1 TABLET BY 1 TABLET BY TAKE 1 Hospita MOUTH TWICE MOUTH TWICE TABLET BY l DAILY prn DAILY prn MOUTH Clin ics TWICE DAILY prn amoxicillin amoxicillin No amoxicilli [facility] [id number] n 875 Communi mg-potassiu mg-potassiu mg-potassi ty m m um Hospita clavulanate clavulanate clavulanat l 125 mg 125 mg e 125 mg Clinics tablet tablet tablet Flagyl 500 Flagyl 500 No 1 Q8H Flagyl 500 [facility] mg tablet mg tablet mg tablet Communi Take 1 Take 1 Take 1 ty tablet tablet tablet Hospita every 8 every 8 every 8 l hours by hours by hours by Cli nics oral route. oral route. oral route. prednisone prednisone No 1 BID prednisone [facility] 20 mg 20 mg 20 mg Communi tablet Take tablet Take tablet ty 1 tablet 1 tablet Take 1 Hospi ta twice a day twice a day tablet l by oral by oral twice a Clinic s route for 5 route for 5 day by days. days. oral route for 5 days. Valtrex 1 Valtrex 1 No 1 TID Valtrex 1 [facility] gram tablet gram tablet gram C [facility] Take 1 Take 1 tablet ty tablet 3 tablet 3 Take 1 Hospi ta times a day times a day tablet 3 l by oral by oral times a Clinic s route for 7 route for 7 day by days. days. oral route for 7 days. Vistaril 25 Vistaril 25 No 1capsul Q7H Vistaril [facility] mg capsule mg capsule e(s) 25 mg Co [facility]i Take 1 Take 1 capsule ty capsule capsule Take 1 Hospita every 6-8 every 6-8 capsule l hours by hours by every 6-8 Cl inics oral route oral route hours by as needed. as needed. oral route as needed. dicyclomine dicyclomine No 1 TID dicyclomin [facility] 20 mg 20 mg e 20 mg Communi tablet Take tablet Take tablet ty 1 tablet 3 1 tablet 3 Take 1 H ospita times a day times a day tablet 3 l by oral by oral times a Clinic s route as route as day by needed. needed. oral route as needed. hyoscyamine hyoscyamine No hyoscyamin [facility] 0.125 mg 0.125 mg e 0.125 mg C om[facility]i sublingual sublingual sublingual ty tablet tablet tablet Hospita l Clinics ivermectin ivermectin No 2 BID ivermectin [facility] 3 mg tablet 3 mg tablet 3 mg C om[facility]i Take 2 Take 2 tablet ty tablets tablets Take 2 Hospita twice a day twice a day tablets l by oral by oral twice a Clinic s route. route. day by oral route. Denavir 1 % Denavir 1 % No Denavir 1 [facility] topical topical % topical Comm uni cream APPLY cream APPLY cream ty TO THE TO THE APPLY TO [facility] AFFECTED AFFECTED THE l AREA(S) BY AREA(S) BY AFFECTED Clinics TOPICAL TOPICAL AREA(S) BY ROUTE EVERY ROUTE EVERY TOPICAL 2 HOURS 2 HOURS ROUTE DURING DURING EVERY 2 WAKING WAKING HOURS HOURS FOR 4 HOURS FOR 4 DAYS WAKING HOURS FOR 4 DAYS [place] Once Daily Once Daily Once Daily Communi Relief 0.2 Relief 0.2 Relief 0.2 ty % eye drops % eye drops % eye Hospita INSTILL 1 INSTILL 1 drops l DROP INTO DROP INTO INSTILL 1 Clinics AFFECTED AFFECTED DROP INTO EYE(S) BY EYE(S) BY AFFECTED OPHTHALMIC OPHTHALMIC EYE(S) BY ROUTE ONCE ROUTE ONCE OPHTHALMIC DAILY DAILY ROUTE ONCE DAILY valacyclovi valacyclovi No 1 TID valacyclov [facility] r 1 gram r 1 gram ir 1 gram Co [facility] tablet Take tablet Take tablet ty 1 tablet 3 1 tablet 3 Take 1 H ospita times a day times a day tablet 3 l by oral by oral times a Clinic s route for 7 route for 7 day by days. days. oral route for 7 days. Denavir 1 % Denavir 1 % No Denavir 1 [facility] topical topical % topical Comm uni cream APPLY cream APPLY cream ty TO THE TO THE APPLY TO [facility] AFFECTED AFFECTED THE l AREA(S) BY AREA(S) BY AFFECTED Clinics TOPICAL TOPICAL AREA(S) BY ROUTE EVERY ROUTE EVERY TOPICAL 2 HOURS 2 HOURS ROUTE DURING DURING EVERY 2 WAKING WAKING HOURS HOURS FOR 4 HOURS FOR 4 DAYS WAKING HOURS FOR 4 DAYS [facility] [place] Once Daily Once Daily Once Daily Communi Relief 0.2 Relief 0.2 Relief 0.2 ty % eye drops % eye drops % eye Hospita INSTILL 1 INSTILL 1 drops l DROP INTO DROP INTO INSTILL 1 Clinics AFFECTED AFFECTED DROP INTO EYE(S) BY EYE(S) BY AFFECTED OPHTHALMIC OPHTHALMIC EYE(S) BY ROUTE ONCE ROUTE ONCE OPHTHALMIC DAILY DAILY ROUTE ONCE DAILY valacyclovi valacyclovi No 1 TID valacyclov [facility] r 1 gram r 1 gram ir 1 gram Co [facility] tablet Take tablet Take tablet ty 1 tablet 3 1 tablet 3 Take 1 H ospita times a day times a day tablet 3 l by oral by oral times a Clinic s route for 7 route for 7 day by days. days. oral route for 7 days. acyclovir 5 acyclovir 5 No acyclovir [facility] % topical % topical 5 % Commu ni ointment ointment topical ty APPLY APPLY ointment Hospita TOPICALLY TOPICALLY APPLY l TO THE TO THE TOPICALLY Clinic s AFFECTED AFFECTED TO THE AREA EVERY AREA EVERY AFFECTED 2 HOURS 2 HOURS AREA EVERY DURING DURING 2 HOURS AWAKE HOURS AWAKE HOURS DURING FOR 4 DAYS FOR 4 DAYS AWAKE HOURS FOR 4 DAYS cefdinir cefdinir No 1capsul Q12H cefdinir [facility] 300 mg 300 mg e(s) 300 mg Communi capsule capsule capsule ty Take 1 Take 1 Take 1 Hospita capsule capsule capsule l every 12 every 12 every 12 Cli nics hours by hours by hours by oral route. oral route. oral route. Denavir 1 % Denavir 1 % No Denavir 1 [facility] topical topical % topical Comm uni cream APPLY cream APPLY cream ty TO THE TO THE APPLY TO Hospita AFFECTED AFFECTED THE l AREA(S) BY AREA(S) BY AFFECTED Clinics TOPICAL TOPICAL AREA(S) BY ROUTE EVERY ROUTE EVERY TOPICAL 2 HOURS 2 HOURS ROUTE DURING DURING EVERY 2 WAKING WAKING HOURS HOURS FOR 4 HOURS FOR 4 DAYS DAYS WAKING HOURS FOR 4 DAYS hyoscyamine hyoscyamine No hyoscyamin [facility] 0.125 mg 0.125 mg e 0.125 mg C [facility] disintegrat disintegrat disintegra ty ing tablet ing tablet ting [facility] tablet l Clinics Pataday Pataday No Pataday [facility] Once Daily Once Daily Once Daily Communi Relief 0.2 Relief 0.2 Relief 0.2 ty % eye drops % eye drops % eye Hospita INSTILL 1 INSTILL 1 drops l DROP INTO DROP INTO INSTILL 1 Clinics AFFECTED AFFECTED DROP INTO EYE(S) BY EYE(S) BY AFFECTED OPHTHALMIC OPHTHALMIC EYE(S) BY ROUTE ONCE ROUTE ONCE OPHTHALMIC DAILY DAILY ROUTE ONCE DAILY sulfamethox sulfamethox No sulfametho [facility] azole 800 azole 800 xazole 800 Communi mg-trimetho mg-trimetho mg-trimeth ty prim 160 mg prim 160 mg oprim 160 Hospita tablet tablet mg tablet l Clinics valacyclovi valacyclovi No 1 TID valacyclov [facility] r 1 gram r 1 gram ir 1 gram Co [facility] tablet Take tablet Take tablet ty 1 tablet 3 1 tablet 3 Take 1 H ospita times a day times a day tablet 3 l by oral by oral times a Clinic s route for 7 route for 7 day by days. days. oral route for 7 days. acyclovir 5 acyclovir 5 No acyclovir [facility] % topical % topical 5 % Commu ni ointment ointment topical ty APPLY TO APPLY TO ointment [facility] THE THE APPLY TO l AFFECTED AFFECTED THE Clinics AREA EVERY AREA EVERY AFFECTED 2 HOURS 2 HOURS AREA EVERY DURING DURING 2 HOURS AWAKE HOURS AWAKE HOURS DURING FOR 4 DAYS FOR 4 DAYS AWAKE HOURS FOR 4 DAYS carbamazepi carbamazepi No carbamazep [facility] ne ER 100 ne ER 100 ine ER 100 Communi mg mg mg ty tablet,exte tablet,exte tablet,ext Hospita nded nded ended l release,12 release,12 release,12 Clinics hr TAKE 1 hr TAKE 1 hr TAKE 1 TABLET BY TABLET BY TABLET BY MOUTH EVERY MOUTH EVERY MOUTH 12 HOURS 12 HOURS EVERY 12 HOURS hyoscyamine hyoscyamine No hyoscyamin [facility] 0.125 mg 0.125 mg e 0.125 mg C [facility] disintegrat disintegrat disintegra ty ing tablet ing tablet ting [facility] tablet l Clinics valacyclovi valacyclovi No valacyclov [facility] r 1 gram r 1 gram ir 1 gram Co [facility] tablet TAKE tablet TAKE tablet ty 1 TABLET BY 1 TABLET BY TAKE 1 Hospita MOUTH EVERY MOUTH EVERY TABLET BY l DAY FOR 30 DAY FOR 30 MOUTH Cl inics DAYS DAYS EVERY DAY FOR 30 DAYS acyclovir 5 acyclovir 5 No acyclovir [facility] % topical % topical 5 % Commu ni ointment ointment topical ty APPLY TO APPLY TO ointment [facility] THE THE APPLY TO l AFFECTED AFFECTED THE Clinics AREA EVERY AREA EVERY AFFECTED 2 HOURS 2 HOURS AREA EVERY DURING DURING 2 HOURS AWAKE HOURS AWAKE HOURS DURING FOR 4 DAYS FOR 4 DAYS AWAKE HOURS FOR 4 DAYS clonidine clonidine No 1 Q1D clonidine [facility] HCl ER 0.1 HCl ER 0.1 HCl ER 0.1 Communi mg mg mg ty tablet,exte tablet,exte tablet,ext Hospita nded nded ended l release,12 release,12 release,12 Clinics hr Take 1 hr Take 1 hr Take 1 tablet tablet tablet every day every day every day by oral by oral by oral route in route in route in the the the evening. evening. evening. DripDrop DripDrop No 1packet Q1D DripDrop [facility] 305 mg-175 305 mg-175 (s) 305 mg-175 Communi mg-70 mg mg-70 mg mg-70 mg ty oral powder oral powder oral H ospita packet Take packet Take powder l 1 packet 1 packet packet Clini cs every day every day Take 1 by oral by oral packet route as route as every day needed. needed. by oral route as needed. hyoscyamine hyoscyamine No hyoscyamin [facility] 0.125 mg 0.125 mg e 0.125 mg C [facility] disintegrat disintegrat disintegra ty ing tablet ing tablet ting [facility] tablet l Clinics Kenalog 40 Kenalog 40 No .5mL Q1D Kenalog 40 [place] mg/mL mg/mL mg/mL Communi suspension suspension suspension ty for for for Hospita injection injection injection l Take 0.5 mL Take 0.5 mL Take 0.5 Clinics every day every day mL every by by day by injection injection injection route for 1 route for 1 route for day. day. 1 day. lidocaine lidocaine No 2mL Q1D lidocaine [facility] (PF) 10 (PF) 10 (PF) 10 Commun i mg/mL (1 %) mg/mL (1 %) mg/mL (1 ty injection injection %) Hospi ta solution solution injection l Take 2 mL Take 2 mL solution C linics every day every day Take 2 mL by by every day injection injection by route. route. injection route. pantoprazol pantoprazol No 1 Q1D pantoprazo [facility] e 40 mg e 40 mg le 40 mg [facility] tablet,hodan tablet,hodan tablet,del ty yed release yed release ayed [facility] Take 1 Take 1 release l tablet tablet Take 1 Clinics every day every day tablet by oral by oral every day route. route. by oral route. valacyclovi valacyclovi No valacyclov [facility] r 1 gram r 1 gram ir 1 gram [facility] tablet TAKE tablet TAKE tablet ty 1 TABLET BY 1 TABLET BY TAKE 1 Hospita MOUTH EVERY MOUTH EVERY TABLET BY l DAY FOR 30 DAY FOR 30 MOUTH Cl inics DAYS DAYS EVERY DAY FOR 30 DAYS Artificial Artificial No 1drop(s Q1D Artificial [facility] Tears Tears ) Tears [facility] (polyvinyl (polyvinyl (polyvinyl ty alcohol) alcohol) alcohol) [facility] 1.4 % eye 1.4 % eye 1.4 % eye l drops Apply drops Apply drops Clinics 1 drop 1 drop Apply 1 every day every day drop every by by day by ophthalmic ophthalmic ophthalmic route. route. route. azithromyci azithromyci No 1 Q1D azithromyc [facility] n 500 mg n 500 mg in 500 mg [facility] tablet Take tablet Take tablet ty 1 tablet 1 tablet Take 1 Hospi ta every day every day tablet l by oral by oral every day Clin ics route for 5 route for 5 by oral days. days. route for 5 days. DripDrop DripDrop No 1packet Q1D DripDrop [facility] 305 mg-175 305 mg-175 (s) 305 mg-175 [facility] mg-70 mg mg-70 mg mg-70 mg ty oral powder oral powder oral [facility] packet Take packet Take powder l 1 packet 1 packet packet Clini cs every day every day Take 1 by oral by oral packet route as route as every day needed. needed. by oral route as needed. hyoscyamine hyoscyamine No hyoscyamin [facility] 0.125 mg 0.125 mg e 0.125 mg [facility] disintegrat disintegrat disintegra ty ing tablet ing tablet ting [facility] tablet l Clinics pantoprazol pantoprazol No pantoprazo [facility] e 40 mg e 40 mg le 40 mg [facility] tablet,hodan tablet,hodan tablet,del ty yed release yed release ayed [facility] TAKE 1 TAKE 1 release l TABLET BY TABLET BY TAKE 1 Cli nics MOUTH EVERY MOUTH EVERY TABLET BY DAY DAY MOUTH EVERY DAY acetylcyste acetylcyste No 1capsul BID acetylcyst [facility] ine 600 mg ine 600 mg e(s) eine 600 [facility] capsule capsule mg capsule ty Take 1 Take 1 Take 1 Hospita capsule capsule capsule l twice a day twice a day twice a Clinics by oral by oral day by route. route. oral route. Artificial Artificial No 1drop(s Q1D Artificial [facility] Tears Tears ) Tears [facility] (polyvinyl (polyvinyl (polyvinyl ty alcohol) alcohol) alcohol) [facility] 1.4 % eye 1.4 % eye 1.4 % eye l drops Apply drops Apply drops Clinics 1 drop 1 drop Apply 1 every day every day drop every by by day by ophthalmic ophthalmic ophthalmic route. route. route. Effexor XR Effexor XR No 1capsul Q1D Effexor XR [facility] 75 mg 75 mg e(s) 75 mg [facility] capsule,ext capsule,ext capsule,ex ty ended ended tended Hospita release release release l Take 1 Take 1 Take 1 Clinics capsule capsule capsule every day every day every day by oral by oral by oral route for route for route for 90 days. 90 days. 90 days. hyoscyamine hyoscyamine No hyoscyamin [facility] 0.125 mg 0.125 mg e 0.125 mg [facility] disintegrat disintegrat disintegra ty ing tablet ing tablet ting [facility] tablet l Clinics pantoprazol pantoprazol No pantoprazo [facility] e 40 mg e 40 mg le 40 mg [facility] tablet,hodan tablet,hodan tablet,del ty yed release yed release ayed [facility] TAKE 1 TAKE 1 release l TABLET BY TABLET BY TAKE 1 Cli nics MOUTH EVERY MOUTH EVERY TABLET BY DAY DAY MOUTH EVERY DAY acetylcyste acetylcyste No 1capsul BID acetylcyst [facility] ine 600 mg ine 600 mg e(s) eine 600 [facility] capsule capsule mg capsule ty Take 1 Take 1 Take 1 Hospita capsule capsule capsule l twice a day twice a day twice a Clinics by oral by oral day by route. route. oral route. Artificial Artificial No 1drop(s Q1D Artificial [facility] Tears Tears ) Tears [facility] (polyvinyl (polyvinyl (polyvinyl ty alcohol) alcohol) alcohol) [facility] 1.4 % eye 1.4 % eye 1.4 % eye l drops Apply drops Apply drops Clinics 1 drop 1 drop Apply 1 every day every day drop every by by day by ophthalmic ophthalmic ophthalmic route. route. route. Effexor XR Effexor XR No 1capsul Q1D Effexor XR [facility] 75 mg 75 mg e(s) 75 mg [facility] capsule,ext capsule,ext capsule,ex ty ended ended tended Hospita release release release l Take 1 Take 1 Take 1 Clinics capsule capsule capsule every day every day every day by oral by oral by oral route for route for route for 90 days. 90 days. 90 days. hyoscyamine hyoscyamine No hyoscyamin [facility] 0.125 mg 0.125 mg e 0.125 mg [facility] disintegrat disintegrat disintegra ty ing tablet ing tablet ting [facility] tablet l [facility] pantoprazol pantoprazol No pantoprazo [facility] e 40 mg e 40 mg le 40 mg [facility] tablet,hodan tablet,hodan tablet,del ty yed release yed release ayed [facility] TAKE 1 TAKE 1 release l TABLET BY TABLET BY TAKE 1 Cli nics MOUTH EVERY MOUTH EVERY TABLET BY DAY DAY MOUTH EVERY DAY acyclovir acyclovir No 1 Q1D acyclovir [facility] 400 mg 400 mg 400 mg [facility] tablet Take tablet Take tablet ty 1 tablet 1 tablet Take 1 Hospi ta every day every day tablet l by oral by oral every day Clin ics route for route for by oral 30 days. 30 days. route for 30 days. amoxicillin amoxicillin No amoxicilli [facility] [id number] n 875 [facility] mg-potassiu mg-potassiu mg-potassi ty m m um [facility]ospita clavulanate clavulanate clavulanat l 125 mg 125 mg e 125 mg Clinics tablet TAKE tablet TAKE tablet 1 TABLET BY 1 TABLET BY TAKE 1 MOUTH EVERY MOUTH EVERY TABLET BY 12 HOURS 12 HOURS MOUTH EVERY 12 HOURS metronidazo metronidazo No metronidaz [facility] le 500 mg le 500 mg ole 500 mg [facility] tablet TAKE tablet TAKE tablet ty 1 TABLET BY 1 TABLET BY TAKE 1 Hospita MOUTH EVERY MOUTH EVERY TABLET BY l 8 HOURS 8 HOURS MOUTH Clinics EVERY 8 HOURS ondansetron ondansetron No ondansetro [facility] 4 mg 4 mg n 4 mg [facility] disintegrat disintegrat disintegra ty ing tablet ing tablet ting [facility] tablet [facility] Xifaxan 550 Xifaxan 550 No 1 BID Xifaxan [facility] mg tablet mg tablet 550 mg Com ricci Take 1 Take 1 tablet ty tablet tablet Take 1 Hospita twice a day twice a day tablet l by oral by oral twice a Clinic s route. route. day by oral route. acyclovir acyclovir No acyclovir [facility] 400 mg 400 mg 400 mg [facility] tablet TAKE tablet TAKE tablet ty 1 TABLET BY 1 TABLET BY TAKE 1 Hospita MOUTH EVERY MOUTH EVERY TABLET BY l DAY DAY MOUTH Clinics EVERY DAY Diflucan Diflucan No 1 Q1W Diflucan Swe venkat 150 mg 150 mg 150 mg [facility] tablet Take tablet Take tablet ty 1 tablet 1 tablet Take 1 Hospi ta every week every week tablet l by oral by oral every week Cli nics route. route. by oral route. metronidazo metronidazo No metronidaz [facility] le 500 mg le 500 mg ole 500 mg [facility] tablet TAKE tablet TAKE tablet ty 1 TABLET BY 1 TABLET BY TAKE 1 Hospita MOUTH EVERY MOUTH EVERY TABLET BY l 8 HOURS 8 HOURS MOUTH Clinics EVERY 8 HOURS ondansetron ondansetron No ondansetro [facility] 4 mg 4 mg n 4 mg [facility] disintegrat disintegrat disintegra ty ing tablet ing tablet ting [facility] tablet l Clinics pantoprazol pantoprazol No pantoprazo [facility] e 40 mg e 40 mg le 40 mg [facility] tablet,hodan tablet,hodan tablet,del ty yed release yed release ayed [facility] release l Clinics peg peg No peg [facility] 3350-electr 3350-electr 3350-elect [facility] olytes 236 olytes 236 rolytes ty gram-22.74 gram-22.74 236 [facility] gram-6.74 gram-6.74 gram-22.74 l gram-5.86 gram-5.86 gram-6.74 Clinics gram gram gram-5.86 solution solution gram MIX AND MIX AND solution DRINK DRINK MIX AND DIRECTED DIRECTED DRINK DIRECTED sucralfate sucralfate No 1 QID sucralfate [facility] 1 gram 1 gram 1 gram [facility] tablet Take tablet Take tablet ty 1 tablet 4 1 tablet 4 Take 1 [facility] times a day times a day tablet 4 l by oral by oral times a Clinic s route. route. day by oral route. venlafaxine venlafaxine No venlafaxin [facility] ER 75 mg ER 75 mg e ER 75 mg [facility] capsule,ext capsule,ext capsule,ex ty ended ended tended Hospita release 24 release 24 release 24 l hr hr hr Clinics Xifaxan 550 Xifaxan 550 No Xifaxan [facility] mg tablet mg tablet 550 mg Com ricci Take 1 Take 1 tablet ty tablet tablet Take 1 Hospita twice a day twice a day tablet l by oral by oral twice a Clinic s route. route. day by oral route. dexamethaso dexamethaso No 10mg dexamethas [facility] ne sodium ne sodium one sodium [facility] phosphate phosphate phosphate ty 10 mg/mL 10 mg/mL 10 mg/mL [facility] injection injection injection l solution solution solution Cli nics Take 10 mg Take 10 mg Take 10 mg by by by injection injection injection route. route. route. dicyclomine dicyclomine No 1 TID dicyclomin [facility] 20 mg 20 mg e 20 mg [facility] tablet Take tablet Take tablet ty 1 tablet 3 1 tablet 3 Take 1 [facility] times a day times a day tablet 3 l by oral by oral times a Clinic s route as route as day by needed. needed. oral route as needed. gabapentin gabapentin No 1capsul BID gabapentin [facility] 300 mg 300 mg e(s) 300 mg [facility] capsule capsule capsule ty Take 1 Take 1 Take 1 Hospita capsule capsule capsule l twice a day twice a day twice a Clinics by oral by oral day by route. route. oral route. montelukast montelukast No 1 Q1D montelukas [facility] 10 mg 10 mg t 10 mg [facility] tablet Take tablet Take tablet ty 1 tablet 1 tablet Take 1 Hospi ta every day every day tablet l by oral by oral every day Clin ics route. route. by oral route. acyclovir 5 acyclovir 5 No acyclovir [facility] % topical % topical 5 % [facility] ointment ointment topical ty APPLY TO APPLY TO ointment [facility] THE THE APPLY TO l AFFECTED AFFECTED THE Clinics AREA EVERY AREA EVERY AFFECTED 2 HOURS 2 HOURS AREA EVERY DURING DURING 2 HOURS AWAKE HOURS AWAKE HOURS DURING FOR 4 DAYS FOR 4 DAYS AWAKE HOURS FOR 4 DAYS Bactrim DS Bactrim DS No 1 Q12H Bactrim DS [facility] 800 mg-160 800 mg-160 800 mg-160 [facility] mg tablet mg tablet mg tablet ty Take 1 Take 1 Take 1 Hospita tablet tablet tablet l every 12 every 12 every 12 Cli nics hours by hours by hours by oral route oral route oral route for 10 for 10 for 10 days. days. days. diclofenac diclofenac No diclofenac [facility] 1 % topical 1 % topical 1 % [facility] gel APPLY 2 gel APPLY 2 topical ty GRAMS TO GRAMS TO gel APPLY [facility] THE THE 2 GRAMS TO l AFFECTED AFFECTED THE Clinics AREA(S) BY AREA(S) BY AFFECTED TOPICAL TOPICAL AREA(S) BY ROUTE 4 ROUTE 4 TOPICAL TIMES PER TIMES PER ROUTE 4 DAY DAY TIMES PER DAY Pyridium Pyridium No 1 Q8H Pyridium Swe venkat 200 mg 200 mg 200 mg [facility] tablet Take tablet Take tablet ty 1 tablet 1 tablet Take 1 Hospi ta every 8 every 8 tablet l hours by hours by every 8 Clin ics oral route. oral route. hours by oral route. valacyclovi valacyclovi No 1 BID valacyclov [facility] r 1 gram r 1 gram ir 1 gram [facility] tablet Take tablet Take tablet ty 1 tablet 1 tablet Take 1 Hospi ta twice a day twice a day tablet l by oral by oral twice a Clinic s route. route. day by oral route. acyclovir 5 acyclovir 5 No acyclovir [facility] % topical % topical 5 % [facility] ointment ointment topical ty APPLY TO APPLY TO ointment [facility] THE THE APPLY TO l AFFECTED AFFECTED THE Clinics AREA EVERY AREA EVERY AFFECTED 2 HOURS 2 HOURS AREA EVERY DURING DURING 2 HOURS AWAKE HOURS AWAKE HOURS DURING FOR 4 DAYS FOR 4 DAYS AWAKE HOURS FOR 4 DAYS diclofenac diclofenac No diclofenac [facility] 1 % topical 1 % topical 1 % [facility] gel APPLY 2 gel APPLY 2 topical ty GRAMS GRAMS gel APPLY Hospita TOPICALLY TOPICALLY 2 GRAMS l TO THE TO THE TOPICALLY Clinic s AFFECTED AFFECTED TO THE AREA FOUR AREA FOUR AFFECTED TIMES DAILY TIMES DAILY AREA FOUR TIMES DAILY phenazopyri phenazopyri No phenazopyr [facility] dine 200 mg dine 200 mg idine 200 [facility] tablet TAKE tablet TAKE mg tablet ty 1 TABLET BY 1 TABLET BY TAKE 1 Hospita MOUTH EVERY MOUTH EVERY TABLET BY l 8 HOURS 8 HOURS MOUTH Clinics EVERY 8 HOURS sulfamethox sulfamethox No sulfametho [facility] azole 800 azole 800 xazole 800 [facility] mg-trimetho mg-trimetho mg-trimeth ty prim 160 mg prim 160 mg oprim 160 Hospita tablet TAKE tablet TAKE mg tablet l 1 TABLET BY 1 TABLET BY TAKE 1 Clinics MOUTH EVERY MOUTH EVERY TABLET BY 12 HOURS 12 HOURS MOUTH FOR 10 DAYS FOR 10 DAYS EVERY 12 HOURS FOR 10 DAYS valacyclovi valacyclovi No valacyclov [facility] r 1 gram r 1 gram ir 1 gram [facility] tablet TAKE tablet TAKE tablet ty 1 TABLET BY 1 TABLET BY TAKE 1 Hospita MOUTH TWICE MOUTH TWICE TABLET BY l DAILY DAILY MOUTH Clinics TWICE DAILY acyclovir 5 acyclovir 5 No acyclovir [facility] % topical % topical 5 % [facility] ni ointment ointment topical ty APPLY TO APPLY TO ointment [facility] THE THE APPLY TO l AFFECTED AFFECTED THE Clinics AREA EVERY AREA EVERY AFFECTED 2 HOURS 2 HOURS AREA EVERY DURING DURING 2 HOURS AWAKE HOURS AWAKE HOURS DURING FOR 4 DAYS FOR 4 DAYS AWAKE HOURS FOR 4 DAYS cefuroxime cefuroxime No cefuroxime [facility] axetil 500 axetil 500 axetil 500 [facility] mg tablet mg tablet mg tablet ty TAKE 1 TAKE 1 TAKE 1 Hospita TABLET BY TABLET BY TABLET BY l MOUTH EVERY MOUTH EVERY MOUTH Clinics 12 HOURS 12 HOURS EVERY 12 FOR 7 DAYS FOR 7 DAYS HOURS FOR 7 DAYS diclofenac diclofenac No diclofenac [facility] 1 % topical 1 % topical 1 % [facility] gel APPLY 2 gel APPLY 2 topical ty GRAMS GRAMS gel APPLY Hospita TOPICALLY TOPICALLY 2 GRAMS l TO THE TO THE TOPICALLY Clinic s AFFECTED AFFECTED TO THE AREA FOUR AREA FOUR AFFECTED TIMES DAILY TIMES DAILY AREA FOUR TIMES DAILY dicyclomine dicyclomine No dicyclomin [facility] 20 mg 20 mg e 20 mg [facility] tablet TAKE tablet TAKE tablet ty 1 TABLET BY 1 TABLET BY TAKE 1 Hospita MOUTH 4 MOUTH 4 TABLET BY l TIMES A DAY TIMES A DAY MOUTH 4 Clinics NEEDED NEEDED TIMES A DAY NEEDED phenazopyri phenazopyri No phenazopyr [facility] dine 200 mg dine 200 mg idine 200 [facility] tablet TAKE tablet TAKE mg tablet ty 1 TABLET BY 1 TABLET BY TAKE 1 Hospita MOUTH EVERY MOUTH EVERY TABLET BY l 8 HOURS FOR 8 HOURS FOR MOUTH Clinics 2 DAYS 2 DAYS EVERY 8 HOURS FOR 2 DAYS sulfamethox sulfamethox No sulfametho [facility] azole 800 azole 800 xazole 800 [facility] mg-trimetho mg-trimetho mg-trimeth ty prim 160 mg prim 160 mg oprim 160 Hospita tablet TAKE tablet TAKE mg tablet l 1 TABLET BY 1 TABLET BY TAKE 1 Clinics MOUTH EVERY MOUTH EVERY TABLET BY 12 HOURS 12 HOURS MOUTH FOR 10 DAYS FOR 10 DAYS EVERY 12 HOURS FOR 10 DAYS valacyclovi valacyclovi No valacyclov [facility] r 1 gram r 1 gram ir 1 gram [facility] tablet TAKE tablet TAKE tablet ty 1 TABLET BY 1 TABLET BY TAKE 1 Hospita MOUTH TWICE MOUTH TWICE TABLET BY l DAILY DAILY MOUTH Clinics TWICE DAILY acyclovir 5 acyclovir 5 No acyclovir [facility] % topical % topical 5 % [facility] ni ointment ointment topical ty APPLY TO APPLY TO ointment [facility] THE THE APPLY TO l AFFECTED AFFECTED THE Clinics AREA EVERY AREA EVERY AFFECTED 2 HOURS 2 HOURS AREA EVERY DURING DURING 2 HOURS AWAKE HOURS AWAKE HOURS DURING FOR 4 DAYS FOR 4 DAYS AWAKE HOURS FOR 4 DAYS amoxicillin amoxicillin No amoxicilli [facility] 500 500 n 500 [facility] mg-potassiu mg-potassiu mg-potassi ty [facility] clav[facility]ate clavulanate clavulanat l 125 mg 125 mg e 125 mg Clinics tablet TAKE tablet TAKE tablet 1 TABLET BY 1 TABLET BY TAKE 1 MOUTH EVERY MOUTH EVERY TABLET BY 12 HOURS 12 HOURS MOUTH FOR 7 DAYS FOR 7 DAYS EVERY 12 HOURS FOR 7 DAYS amoxicillin amoxicillin No amoxicilli [facility] [id number] n 875 [facility] mg-potassiu mg-potassiu mg-potassi ty m m [facility] clavulanate clavulanate clavulanat l 125 mg 125 mg e 125 mg Clinics tablet TAKE tablet TAKE tablet 1 TABLET BY 1 TABLET BY TAKE 1 MOUTH TWICE MOUTH TWICE TABLET BY DAILY FOR 7 DAILY FOR 7 MOUTH DAYS DAYS TWICE DAILY FOR 7 DAYS cefuroxime cefuroxime No cefuroxime [facility] axetil 500 axetil 500 axetil 500 [facility] mg tablet mg tablet mg tablet ty TAKE 1 TAKE 1 TAKE 1 Hospita TABLET BY TABLET BY TABLET BY l MOUTH EVERY MOUTH EVERY MOUTH Clinics 12 HOURS 12 HOURS EVERY 12 FOR 7 DAYS FOR 7 DAYS HOURS FOR 7 DAYS diclofenac diclofenac No diclofenac [facility] 1 % topical 1 % topical 1 % [facility] gel APPLY 2 gel APPLY 2 topical ty GRAMS GRAMS gel APPLY Hospita TOPICALLY TOPICALLY 2 GRAMS l TO THE TO THE TOPICALLY Clinic s AFFECTED AFFECTED TO THE AREA FOUR AREA FOUR AFFECTED TIMES DAILY TIMES DAILY AREA FOUR TIMES DAILY dicyclomine dicyclomine No dicyclomin [facility] 20 mg 20 mg e 20 mg [facility] tablet TAKE tablet TAKE tablet ty 1 TABLET BY 1 TABLET BY TAKE 1 Hospita MOUTH 4 MOUTH 4 TABLET BY l TIMES A DAY TIMES A DAY MOUTH 4 Clinics NEEDED NEEDED TIMES A DAY NEEDED estradiol estradiol No estradiol [facility] 0.01% (0.1 0.01% (0.1 0.01% (0.1 [facility] mg/gram) mg/gram) mg/gram) ty vaginal vaginal vaginal Hospit a cream cream cream l INSERT 1 INSERT 1 INSERT 1 Cli nics GRAM INTO GRAM INTO GRAM INTO VAGINA VAGINA VAGINA TWICE A TWICE A TWICE A WEEK AT WEEK AT WEEK AT NIGHT. NIGHT. NIGHT. fluconazole fluconazole No fluconazol [facility] 150 mg 150 mg e 150 mg [facility] tablet TAKE tablet TAKE tablet ty 1 TABLET BY 1 TABLET BY TAKE 1 Hospita MOUTH EVERY MOUTH EVERY TABLET BY l 72 HOURS 72 HOURS MOUTH Clinic s EVERY 72 HOURS metoprolol metoprolol No metoprolol [facility] succinate succinate succinate [facility] ER 25 mg ER 25 mg ER 25 mg ty tablet,exte tablet,exte tablet,ext Hospita nded nded ended l release 24 release 24 release 24 Clinics hr TAKE 1 hr TAKE 1 hr TAKE 1 TABLET BY TABLET BY TABLET BY MOUTH EVERY MOUTH EVERY MOUTH DAY DAY EVERY DAY nitrofurant nitrofurant No nitrofuran [facility] oin oin toin [facility] monohydrate monohydrate monohydrat ty /macrocryst /macrocryst e/macrocry Hospita als 100 mg als 100 mg stals 100 l capsule capsule mg capsule Cli nics oxybutynin oxybutynin No oxybutynin [facility] chloride ER chloride ER chloride [facility] 5 mg 5 mg ER 5 mg ty tablet,exte tablet,exte tablet,ext Hospita nded nded ended l release 24 release 24 release 24 Clinics hr TAKE 1 hr TAKE 1 hr TAKE 1 TABLET BY TABLET BY TABLET BY MOUTH EVERY MOUTH EVERY MOUTH DAY DAY EVERY DAY phenazopyri phenazopyri No phenazopyr [facility] dine 200 mg dine 200 mg idine 200 [facility] tablet TAKE tablet TAKE mg tablet ty 1 TABLET BY 1 TABLET BY TAKE 1 Hospita MOUTH EVERY MOUTH EVERY TABLET BY l 8 HOURS FOR 8 HOURS FOR MOUTH Clinics 2 DAYS 2 DAYS EVERY 8 HOURS FOR 2 DAYS sulfamethox sulfamethox No sulfametho [facility] azole 800 azole 800 xazole 800 [facility] mg-trimetho mg-trimetho mg-trimeth ty prim 160 mg prim 160 mg oprim 160 Hospita tablet TAKE tablet TAKE mg tablet l 1 TABLET BY 1 TABLET BY TAKE 1 Clinics MOUTH EVERY MOUTH EVERY TABLET BY 12 HOURS 12 HOURS MOUTH FOR 10 DAYS FOR 10 DAYS EVERY 12 HOURS FOR 10 DAYS Suprax 400 Suprax 400 No 1capsul Q1D Suprax 400 [facility] mg capsule mg capsule e(s) mg capsule [facility] Take 1 Take 1 Take 1 ty capsule capsule capsule Hospit a every day every day every day l by oral by oral by oral Clinic s route for 7 route for 7 route for days. days. 7 days. valacyclovi valacyclovi No valacyclov [facility] r 1 gram r 1 gram ir 1 gram [facility] tablet TAKE tablet TAKE tablet ty 1 TABLET BY 1 TABLET BY TAKE 1 Hospita MOUTH TWICE MOUTH TWICE TABLET BY l DAILY DAILY MOUTH Clinics TWICE DAILY acyclovir 5 acyclovir 5 No acyclovir [facility] % topical % topical 5 % [facility] ointment ointment topical ty APPLY TO APPLY TO ointment [facility] THE THE APPLY TO l AFFECTED AFFECTED THE Clinics AREA EVERY AREA EVERY AFFECTED 2 HOURS 2 HOURS AREA EVERY DURING DURING 2 HOURS AWAKE HOURS AWAKE HOURS DURING FOR 4 DAYS FOR 4 DAYS AWAKE HOURS FOR 4 DAYS estradiol estradiol No estradiol [facility] 0.01% (0.1 0.01% (0.1 0.01% (0.1 [facility] mg/gram) mg/gram) mg/gram) ty vaginal vaginal vaginal Hospit a cream cream cream l INSERT 1 INSERT 1 INSERT 1 Cli nics GRAM INTO GRAM INTO GRAM INTO VAGINA VAGINA VAGINA TWICE A TWICE A TWICE A WEEK AT WEEK AT WEEK AT NIGHT. NIGHT. NIGHT. metoprolol metoprolol No metoprolol [facility] succinate succinate succinate [facility] ER 25 mg ER 25 mg ER 25 mg ty tablet,exte tablet,exte tablet,ext Hospita nded nded ended l release 24 release 24 release 24 Clinics hr TAKE 1 hr TAKE 1 hr TAKE 1 TABLET BY TABLET BY TABLET BY MOUTH EVERY MOUTH EVERY MOUTH DAY DAY EVERY DAY Paxil CR 25 Paxil CR 25 No 1 Q1D Paxil CR [facility] mg mg 25 mg [facility] tablet,exte tablet,exte tablet,ext ty nded nded ended Hospita release release release l Take 1 Take 1 Take 1 Clinics tablet tablet tablet every day every day every day by oral by oral by oral route. route. route. Suprax 400 Suprax 400 No 1capsul Q1D Suprax 400 [facility] mg capsule mg capsule e(s) mg capsule [facility] Take 1 Take 1 Take 1 ty capsule capsule capsule Hospit a every day every day every day l by oral by oral by oral Clinic s route for 7 route for 7 route for days. days. 7 days. TobraDex TobraDex No TobraDex Swe venkat 0.3 %-0.1 % 0.3 %-0.1 % 0.3 %-0.1 [facility] eye eye % eye ty drops,suspe drops,suspe drops,susp Hospita nsion nsion ension l INSTILL 1 INSTILL 1 INSTILL 1 Clinics DROP INTO DROP INTO DROP INTO AFFECTED AFFECTED AFFECTED EYE(S) BY EYE(S) BY EYE(S) BY OPHTHALMIC OPHTHALMIC OPHTHALMIC ROUTE EVERY ROUTE EVERY ROUTE 6 HOURS 5 6 HOURS 5 EVERY 6 days days HOURS 5 days valacyclovi valacyclovi No valacyclov [facility] r 1 gram r 1 gram ir 1 gram [facility] tablet TAKE tablet TAKE tablet ty 1 TABLET BY 1 TABLET BY TAKE 1 Hospita MOUTH TWICE MOUTH TWICE TABLET BY l DAILY DAILY MOUTH Clinics TWICE DAILY Zithromax Zithromax No Zithromax [facility] Z-Andrew 250 Z-Andrew 250 Z-Andrew 250 [facility] mg tablet mg tablet mg tablet ty TAKE 2 TAKE 2 TAKE 2 Hospita TABLETS TABLETS TABLETS l (500 MG) BY (500 MG) BY (500 MG) Clinics ORAL ROUTE ORAL ROUTE BY ORAL ONCE DAILY ONCE DAILY ROUTE ONCE FOR 1 DAY FOR 1 DAY DAILY FOR THEN 1 THEN 1 1 DAY THEN TABLET (250 TABLET (250 1 TABLET MG) BY ORAL MG) BY ORAL (250 MG) ROUTE ONCE ROUTE ONCE BY ORAL DAILY FOR 4 DAILY FOR 4 ROUTE ONCE DAYS DAYS DAILY FOR 4 DAYS acyclovir 5 acyclovir 5 No acyclovir [facility] % topical % topical 5 % [facility] ointment ointment topical ty APPLY TO APPLY TO ointment [facility] THE THE APPLY TO l AFFECTED AFFECTED THE Clinics AREA EVERY AREA EVERY AFFECTED 2 HOURS 2 HOURS AREA EVERY DURING DURING 2 HOURS AWAKE HOURS AWAKE HOURS DURING FOR 4 DAYS FOR 4 DAYS AWAKE HOURS FOR 4 DAYS estradiol estradiol No estradiol [facility] 0.01% (0.1 0.01% (0.1 0.01% (0.1 [facility] mg/gram) mg/gram) mg/gram) ty vaginal vaginal vaginal Hospit a cream cream cream l INSERT 1 INSERT 1 INSERT 1 Cli nics GRAM INTO GRAM INTO GRAM INTO VAGINA VAGINA VAGINA TWICE A TWICE A TWICE A WEEK AT WEEK AT WEEK AT NIGHT. NIGHT. NIGHT. fluconazole fluconazole No fluconazol [facility] 150 mg 150 mg e 150 mg [facility] tablet tablet tablet ty Hospita l Clinics hydroxyzine hydroxyzine No 1 TID hydroxyzin [facility] HCl 25 mg HCl 25 mg e HCl 25 [facility] tablet Take tablet Take mg tablet ty 1 tablet 3 1 tablet 3 Take 1 [facility] times a day times a day tablet 3 l by oral by oral times a Clinic s route as route as day by needed for needed for oral route 3 days. 3 days. as needed for 3 days. Kenalog 40 Kenalog 40 No 60mg Q1D Kenalog 40 [facility] mg/mL mg/mL mg/mL [facility] suspension suspension suspension ty for for for Hospita injection injection injection l Take 60 mg Take 60 mg Take 60 mg Clinics every day every day every day by by by injection injection injection route. route. route. metoprolol metoprolol No metoprolol [facility] succinate succinate succinate [facility] ER 25 mg ER 25 mg ER 25 mg ty tablet,exte tablet,exte tablet,ext [facility]ospita nded nded ended l release 24 release 24 release 24 Clinics hr TAKE 1 hr TAKE 1 hr TAKE 1 TABLET BY TABLET BY TABLET BY MOUTH EVERY MOUTH EVERY MOUTH DAY DAY EVERY DAY omeprazole omeprazole No omeprazole [facility] 20 mg 20 mg 20 mg [facility] capsule,del capsule,del capsule,de ty ayed ayed layed [facility]ospita release release release l TAKE 1 TAKE 1 TAKE 1 Clinics CAPSULE BY CAPSULE BY CAPSULE BY MOUTH DAILY MOUTH DAILY MOUTH DAILY paroxetine paroxetine No paroxetine [facility] ER 25 mg ER 25 mg ER 25 mg Com ricci tablet,exte tablet,exte tablet,ext ty nded nded ended [facility]ospita release 24 release 24 release 24 l hr TAKE 1 hr TAKE 1 hr TAKE 1 Clinics TABLET BY TABLET BY TABLET BY MOUTH EVERY MOUTH EVERY MOUTH DAY DAY EVERY DAY tobramycin tobramycin No tobramycin [facility] 0.3 0.3 0.3 [facility] %-dexametha %-dexametha %-dexameth ty sone 0.1 % sone 0.1 % asone 0.1 Hospita eye eye % eye l drops,suspe drops,suspe drops,susp Clinics nsion SHAKE nsion SHAKE ension LIQUID AND LIQUID AND SHAKE INSTILL ONE INSTILL ONE LIQUID AND DROP INTO DROP INTO INSTILL AFFECTED AFFECTED ONE DROP EYE EVERY 6 EYE EVERY 6 INTO HOURS FOR 5 HOURS FOR 5 AFFECTED DAYS DAYS EYE EVERY 6 HOURS FOR 5 DAYS triamcinolo triamcinolo No triamcinol [place] ne ne one Communi acetonide acetonide acetonide ty 0.1 % 0.1 % 0.1 % Hospita topical topical topical l cream APPLY cream APPLY cream Clinics A THIN A THIN APPLY A LAYER TO LAYER TO THIN LAYER THE THE TO THE AFFECTED AFFECTED AFFECTED AREA(S) BY AREA(S) BY AREA(S) BY TOPICAL TOPICAL TOPICAL ROUTE 2 ROUTE 2 ROUTE 2 TIMES PER TIMES PER TIMES PER DAY x 7 DAY x 7 DAY x 7 days days days trimethopri trimethopri No trimethopr [place] m 100 mg m 100 mg im 100 mg Co mmuni tablet TAKE tablet TAKE tablet ty 1 TABLET BY 1 TABLET BY TAKE 1 Hospita MOUTH EVERY MOUTH EVERY TABLET BY l DAY DAY MOUTH Clinics EVERY DAY valacyclovi valacyclovi No valacyclov [place] r 1 gram r 1 gram ir 1 gram Co mmuni tablet TAKE tablet TAKE tablet ty 1 TABLET BY 1 TABLET BY TAKE 1 Hospita MOUTH TWICE MOUTH TWICE TABLET BY l DAILY prn DAILY prn MOUTH Clin ics TWICE DAILY prn acyclovir 5 acyclovir 5 No acyclovir [place] % topical % topical 5 % Commu ni ointment ointment topical ty APPLY TO APPLY TO ointment [facility] THE THE APPLY TO l AFFECTED AFFECTED THE Clinics AREA EVERY AREA EVERY AFFECTED 2 HOURS 2 HOURS AREA EVERY DURING DURING 2 HOURS AWAKE HOURS AWAKE HOURS DURING FOR 4 DAYS FOR 4 DAYS AWAKE HOURS FOR 4 DAYS Augmentin Augmentin No 1 Q12H Augmentin [place] 500 mg-125 500 mg-125 500 mg-125 Communi mg tablet mg tablet mg tablet ty Take 1 Take 1 Take 1 Hospita tablet tablet tablet l every 12 every 12 every 12 Cli nics hours by hours by hours by oral route oral route oral route for 10 for 10 for 10 days. days. days. cephalexin cephalexin No cephalexin [place] 500 mg 500 mg 500 mg Communi capsule capsule capsule ty TAKE 1 TAKE 1 TAKE 1 Hospita CAPSULE BY CAPSULE BY CAPSULE BY l MOUTH TWICE MOUTH TWICE MOUTH Clinics DAILY DAILY TWICE DAILY estradiol estradiol No estradiol [place] 0.01% (0.1 0.01% (0.1 0.01% (0.1 Communi mg/gram) mg/gram) mg/gram) ty vaginal vaginal vaginal Hospit a cream cream cream l INSERT 1 INSERT 1 INSERT 1 Cli nics GRAM INTO GRAM INTO GRAM INTO VAGINA VAGINA VAGINA TWICE A TWICE A TWICE A WEEK AT WEEK AT WEEK AT NIGHT. NIGHT. NIGHT. fluconazole fluconazole No fluconazol [place] 150 mg 150 mg e 150 mg Communi tablet tablet tablet ty Hospita l Clinics hydroxyzine hydroxyzine No hydroxyzin [place] HCl 25 mg HCl 25 mg e HCl 25 C ommuni tablet TAKE tablet TAKE mg tablet ty 1 TABLET BY 1 TABLET BY TAKE 1 Hospita MOUTH THREE MOUTH THREE TABLET BY l TIMES DAILY TIMES DAILY MOUTH Clinics FOR 3 DAYS FOR 3 DAYS THREE NEEDED NEEDED TIMES DAILY FOR 3 DAYS NEEDED Kenalog 40 Kenalog 40 No 60mg Q1D Kenalog 40 [place] mg/mL mg/mL mg/mL Communi suspension suspension suspension ty for for for Hospita injection injection injection l Take 60 mg Take 60 mg Take 60 mg Clinics every day every day every day by by by injection injection injection route. route. route. metoprolol metoprolol No metoprolol [place] succinate succinate succinate Communi ER 25 mg ER 25 mg ER 25 mg ty tablet,exte tablet,exte tablet,ext Hospita nded nded ended l release 24 release 24 release 24 Clinics hr TAKE 1 hr TAKE 1 hr TAKE 1 TABLET BY TABLET BY TABLET BY MOUTH EVERY MOUTH EVERY MOUTH DAY DAY EVERY DAY metronidazo metronidazo No 1 Q8H metronidaz [place] le 500 mg le 500 mg ole 500 mg Communi tablet Take tablet Take tablet ty 1 tablet 1 tablet Take 1 Hospi ta every 8 every 8 tablet l hours by hours by every 8 Clin ics oral route oral route hours by for 7 days. for 7 days. oral route for 7 days. omeprazole omeprazole No omeprazole [place] 20 mg 20 mg 20 mg Communi capsule,del capsule,del capsule,de ty ayed ayed layed Hospita release release release l TAKE 1 TAKE 1 TAKE 1 Clinics CAPSULE BY CAPSULE BY CAPSULE BY MOUTH DAILY MOUTH DAILY MOUTH DAILY ondansetron ondansetron No 1 Q6H ondansetro [place] 4 mg 4 mg n 4 mg Communi disintegrat disintegrat disintegra ty ing tablet ing tablet ting Hos [facility] Place 1 Place 1 tablet l tablet tablet Place 1 Clinics every 6 every 6 tablet hours by hours by every 6 translingua translingua hours by l route as l route as translingu needed for needed for al route 6 days. 6 days. as needed for 6 days. paroxetine paroxetine No paroxetine [place] ER 25 mg ER 25 mg ER 25 mg Com ricci tablet,exte tablet,exte tablet,ext ty nded nded ended Hospita release 24 release 24 release 24 l hr TAKE 1 hr TAKE 1 hr TAKE 1 Clinics TABLET BY TABLET BY TABLET BY MOUTH EVERY MOUTH EVERY MOUTH DAY DAY EVERY DAY tobramycin tobramycin No tobramycin [place] 0.3 0.3 0.3 Communi %-dexametha %-dexametha %-dexameth ty sone 0.1 % sone 0.1 % asone 0.1 Hospita eye eye % eye l drops,suspe drops,suspe drops,susp Clinics nsion SHAKE nsion SHAKE ension LIQUID AND LIQUID AND SHAKE INSTILL ONE INSTILL ONE LIQUID AND DROP INTO DROP INTO INSTILL AFFECTED AFFECTED ONE DROP EYE EVERY 6 EYE EVERY 6 INTO HOURS FOR 5 HOURS FOR 5 AFFECTED DAYS DAYS EYE EVERY 6 HOURS FOR 5 DAYS triamcinolo triamcinolo No triamcinol [place] ne ne one Communi acetonide acetonide acetonide ty 0.1 % 0.1 % 0.1 % Hospita topical topical topical l cream APPLY cream APPLY cream Clinics THIN LAYER THIN LAYER APPLY THIN TOPICALLY TOPICALLY LAYER TO THE TO THE TOPICALLY AFFECTED AFFECTED TO THE AREA TWICE AREA TWICE AFFECTED DAILY FOR 7 DAILY FOR 7 AREA TWICE DAYS DAYS DAILY FOR 7 DAYS trimethopri trimethopri No trimethopr [place] m 100 mg m 100 mg im 100 mg Co mmuni tablet TAKE tablet TAKE tablet ty 1 TABLET BY 1 TABLET BY TAKE 1 Hospita MOUTH EVERY MOUTH EVERY TABLET BY l DAY DAY MOUTH Clinics EVERY DAY valacyclovi valacyclovi No valacyclov [place] r 1 gram r 1 gram ir 1 gram Co mmuni tablet TAKE tablet TAKE tablet ty 1 TABLET BY 1 TABLET BY TAKE 1 Hospita MOUTH TWICE MOUTH TWICE TABLET BY l DAILY prn DAILY prn MOUTH Clin ics TWICE DAILY prn Vital Signs Vital Name Observation Time Observation Value Comments Source BP Diastolic 2021-12-18 00:00:00 74 mm[Hg] [facility] Height 2021-12-18 00:00:00 63 [in_i] [facility] BMI (Body Mass 2021-12-18 00:00:00 34.7 kg/m2 [facility]) [facility] BP Systolic 2021-12-18 00:00:00 139 mm[Hg] [facility] Body Weight 2021-12-18 00:00:00 3136 [oz_av] [facility] BP Diastolic 2021-11-08 00:00:00 71 mm[Hg] [facility] Height 2021-11-08 00:00:00 63 [in_i] [facility] BMI (Body Mass 2021-11-08 00:00:00 35.3 kg/m2 [facility]) [facility] BP Systolic 2021-11-08 00:00:00 140 mm[Hg] [facility] Body Weight 2021-11-08 00:00:00 3187.2 [oz_av] [facility] BP Diastolic 2021-10-21 00:00:00 74 mm[Hg] [facility] Height 2021-10-21 00:00:00 63 [in_i] [facility] BMI (Body Mass 2021-10-21 00:00:00 35.3 kg/m2 [facility]) [facility] BP Systolic 2021-10-21 00:00:00 147 mm[Hg] [facility] Body Weight 2021-10-21 00:00:00 3184 [oz_av] [facility] BP Diastolic 2021-09-20 00:00:00 71 mm[Hg] [facility] Height 2021-09-20 00:00:00 63 [in_i] [facility] BMI (Body Mass 2021-09-20 00:00:00 34.7 kg/m2 [facility]) [facility] BP Systolic 2021-09-20 00:00:00 128 mm[Hg] [facility] Body Weight 2021-09-20 00:00:00 3137 [oz_av] [facility] BP Diastolic 2021-07-31 00:00:00 90 mm[Hg] [facility] Height 2021-07-31 00:00:00 63 [in_i] [facility] BMI (Body Mass 2021-07-31 00:00:00 34.9 kg/m2 [facility] s BP Systolic 2021-07-31 00:00:00 123 mm[Hg] [facility] Body Weight 2021-07-31 00:00:00 3153.6 [oz_av] [facility] s BP Diastolic 2021-07-23 00:00:00 85 mm[Hg] [facility] Height 2021-07-23 00:00:00 63 [in_i] [facility] BMI (Body Mass 2021-07-23 00:00:00 35.6 kg/m2 [facility]) [facility] BP Systolic 2021-07-23 00:00:00 151 mm[Hg] [facility] Body Weight 2021-07-23 00:00:00 3216 [oz_av] [facility] BP Diastolic 2021-06-24 00:00:00 81 mm[Hg] [facility] Height 2021-06-24 00:00:00 63 [in_i] [facility] BMI (Body Mass 2021-06-24 00:00:00 36.8 kg/m2 [facility]) [facility] BP Systolic 2021-06-24 00:00:00 138 mm[Hg] [facility] Body Weight 2021-06-24 00:00:00 3328 [oz_av] [facility] BP Diastolic 2021-05-30 00:00:00 84 mm[Hg] [facility] Height 2021-05-30 00:00:00 63 [in_i] [facility] BMI (Body Mass 2021-05-30 00:00:00 36.5 kg/m2 [facility]) [facility] BP Systolic 2021-05-30 00:00:00 144 mm[Hg] [facility] Body Weight 2021-05-30 00:00:00 3296 [oz_av] [facility] BP Diastolic 2021-04-09 00:00:00 68 mm[Hg] [facility] Height 2021-04-09 00:00:00 63 [in_i] [facility] BMI (Body Mass 2021-04-09 00:00:00 34.4 kg/m2 [facility]) [facility] BP Systolic 2021-04-09 00:00:00 143 mm[Hg] [facility] Body Weight 2021-04-09 00:00:00 3107.2 [oz_av] [facility] BP Diastolic 2021-03-14 00:00:00 80 mm[Hg] [facility] Height 2021-03-14 00:00:00 63 [in_i] [facility] BMI (Body Mass 2021-03-14 00:00:00 34.9 kg/m2 [facility]) [facility] BP Systolic 2021-03-14 00:00:00 145 mm[Hg] [facility] Body Weight 2021-03-14 00:00:00 3155.2 [oz_av] [facility] BP Diastolic 2021-03-04 00:00:00 76 mm[Hg] [facility] Height 2021-03-04 00:00:00 63 [in_i] [facility] BMI (Body Mass 2021-03-04 00:00:00 36.2 kg/m2 [facility] BP Systolic 2021-03-04 00:00:00 139 mm[Hg] [facility] Body Weight 2021-03-04 00:00:00 3270.4 [oz_av] [facility] s BP Diastolic 2021-02-25 00:00:00 71 mm[Hg] [facility] Height 2021-02-25 00:00:00 63 [in_i] [facility] BMI (Body Mass 2021-02-25 00:00:00 36.5 kg/m2 [facility] BP Systolic 2021-02-25 00:00:00 131 mm[Hg] [facility] Body Weight 2021-02-25 00:00:00 3292.8 [oz_av] [facility] BP Diastolic 2021-01-14 00:00:00 85 mm[Hg] [facility] Height 2021-01-14 00:00:00 63 [in_i] [facility] BMI (Body Mass 2021-01-14 00:00:00 35.3 kg/m2 [facility] BP Systolic 2021-01-14 00:00:00 137 mm[Hg] [facility] Body Weight 2021-01-14 00:00:00 3184 [oz_av] [facility] BP Diastolic 2020-10-16 00:00:00 61 mm[Hg] [facility] Height 2020-10-16 00:00:00 63 [in_i] [facility] BMI (Body Mass 2020-10-16 00:00:00 34.4 kg/m2 [facility] BP Systolic 2020-10-16 00:00:00 120 mm[Hg] [facility] Body Weight 2020-10-16 00:00:00 3104 [oz_av] [facility] BP Diastolic 2020-09-28 00:00:00 86 mm[Hg] [facility] Height 2020-09-28 00:00:00 63 [in_i] [facility] BMI (Body Mass 2020-09-28 00:00:00 33.9 kg/m2 [facility]) [facility] BP Systolic 2020-09-28 00:00:00 129 mm[Hg] [facility] Body Weight 2020-09-28 00:00:00 3062.4 [oz_av] [facility] BP Diastolic 2020-08-20 00:00:00 79 mm[Hg] [facility] Height 2020-08-20 00:00:00 63 [in_i] [facility] BMI (Body Mass 2020-08-20 00:00:00 33 kg/m2 [facility] s BP Systolic 2020-08-20 00:00:00 142 mm[Hg] [facility] Body Weight 2020-08-20 00:00:00 2979.2 [oz_av] [facility] BP Diastolic 2020-08-13 00:00:00 93 mm[Hg] [facility] Height 2020-08-13 00:00:00 63 [in_i] [facility] BMI (Body Mass 2020-08-13 00:00:00 33.2 kg/m2 [facility]) [facility] BP Systolic 2020-08-13 00:00:00 149 mm[Hg] [facility] Body Weight 2020-08-13 00:00:00 3001.6 [oz_av] [facility] BP Diastolic 2020-07-26 00:00:00 74 mm[Hg] [facility] Height 2020-07-26 00:00:00 63 [in_i] [facility] BMI (Body Mass 2020-07-26 00:00:00 32.7 kg/m2 [facility] s BP Systolic 2020-07-26 00:00:00 133 mm[Hg] [facility] Body Weight 2020-07-26 00:00:00 2956.8 [oz_av] [facility] Procedures Procedure Date / Time Performing Clinician Source Performed URINE CULTURE 2021-09-23 00:00:00 Provider, Not In [facility] POC URINALYSIS DIPSTICK 2021-08-21 19:36:00 Emily V[facility] [id number] 2021-08-21 19:36:00 [facility] Carpal Tunnel Surgery [facility] Cholecystectomy [facility] Tubal Ligation [facility] Plan of Care Planned Activity Planned Date Details Comments Source Future Scheduled Test 2022-01-03 HEPATITIS B VACCINES [facility] 14:11:23 (1 of 3 - 3-dose series) [code = HEPATITIS B VACCINES (1 of 3 - 3-dose series)] Future Scheduled Test 2022-01-03 Hepatitis C screening [facility] 14:11:23 (procedure) [code = 521400585] Future Scheduled Test 2022-01-03 Screening for [facility] 14:11:23 malignant neoplasm of cervix (procedure) [code = 364918006] Future Scheduled Test 2022-01-03 BREAST CANCER [facility] 14:11:23 SCREENING [code = BREAST CANCER SCREENING] Future Scheduled Test 2022-01-03 COLONOSCOPY SCREENING [facility] 14:11:23 [code = COLONOSCOPY SCREENING] Future Scheduled Test 2022-01-03 SHINGLES VACCINES (1 [facility] 14:11:23 of 2) [code = SHINGLES VACCINES (1 of 2)] Future Scheduled Test 2022-01-03 65+ PNEUMOCOCCAL Me [facility] 14:11:23 VACCINE (1 - PCV) [code = 65+ PNEUMOCOCCAL VACCINE (1 - PCV)] Future Scheduled Test 2022-01-03 INFLUENZA VACCINE [facility] 14:11:23 [code = INFLUENZA VACCINE] Future Scheduled Test 2022-01-03 HEPATITIS B VACCINES [facility] 14:11:23 (1 of 3 - 3-dose series) [code = HEPATITIS B VACCINES (1 of 3 - 3-dose series)] Future Scheduled Test 2022-01-03 Hepatitis C screening [facility] 14:11:23 (procedure) [code = 280259976] Future Scheduled Test 2022-01-03 Screening for [facility] 14:11:23 malignant neoplasm of cervix (procedure) [code = 456052860] Future Scheduled Test 2022-01-03 BREAST CANCER [facility] 14:11:23 SCREENING [code = BREAST CANCER SCREENING] Future Scheduled Test 2022-01-03 COLONOSCOPY SCREENING [facility] 14:11:23 [code = COLONOSCOPY SCREENING] Future Scheduled Test 2022-01-03 SHINGLES VACCINES (1 [facility] 14:11:23 of 2) [code = SHINGLES VACCINES (1 of 2)] Future Scheduled Test 2022-01-03 65+ PNEUMOCOCCAL [facility] 14:11:23 VACCINE (1 - PCV) [code = 65+ PNEUMOCOCCAL VACCINE (1 - PCV)] Future Scheduled Test 2022-01-03 INFLUENZA VACCINE [facility] 14:11:23 [code = INFLUENZA VACCINE] Future Scheduled Test 2021-11-28 HEPATITIS B VACCINES [facility] 00:25:38 (1 of 3 - 3-dose series) [code = HEPATITIS B VACCINES (1 of 3 - 3-dose series)] Future Scheduled Test 2021-11-28 Hepatitis C screening [facility] 00:25:38 (procedure) [code = 440602765] Future Scheduled Test 2021-11-28 Screening for [facility] 00:25:38 malignant neoplasm of cervix (procedure) [code = 503384387] Future Scheduled Test 2021-11-28 BREAST CANCER [facility] 00:25:38 SCREENING [code = BREAST CANCER SCREENING] Future Scheduled Test 2021-11-28 COLONOSCOPY SCREENING [facility] 00:25:38 [code = COLONOSCOPY SCREENING] Future Scheduled Test 2021-11-28 SHINGLES VACCINES (1 [facility] 00:25:38 of 2) [code = SHINGLES VACCINES (1 of 2)] Future Scheduled Test 2021-11-28 65+ PNEUMOCOCCAL [facility] 00:25:38 VACCINE (1 - PCV) [code = 65+ PNEUMOCOCCAL VACCINE (1 - PCV)] Future Scheduled Test 2021-11-28 INFLUENZA VACCINE [facility] 00:25:38 [code = INFLUENZA VACCINE] Future Scheduled Test 2021-11-28 HEPATITIS B VACCINES [facility] 00:25:38 (1 of 3 - 3-dose series) [code = HEPATITIS B VACCINES (1 of 3 - 3-dose series)] Future Scheduled Test 2021-11-28 Hepatitis C screening [facility] 00:25:38 (procedure) [code = [id number]] Future Scheduled Test 2021-11-28 Screening for [facility] 00:25:38 malignant neoplasm of cervix (procedure) [code = [id number]] Future Scheduled Test 2021-11-28 BREAST CANCER [facility] 00:25:38 SCREENING [code = BREAST CANCER SCREENING] Future Scheduled Test 2021-11-28 COLONOSCOPY SCREENING [facility] 00:25:38 [code = COLONOSCOPY SCREENING] Future Scheduled Test 2021-11-28 SHINGLES VACCINES (1 [facility] 00:25:38 of 2) [code = SHINGLES VACCINES (1 of 2)] Future Scheduled Test 2021-11-28 65+ PNEUMOCOCCAL Me [facility] 00:25:38 VACCINE (1 - PCV) [code = 65+ PNEUMOCOCCAL VACCINE (1 - PCV)] Future Scheduled Test 2021-11-28 INFLUENZA VACCINE [facility] 00:25:38 [code = INFLUENZA VACCINE] Diagnostic Test 2021-10-21 urinalysis, dipstick [facility] Pending 00:00:00 [code = urinalysis, Hospital Clinics dipstick] Diagnostic Test 2021-10-21 rapid SARS CoV 2 Ag, [facility] Pending 00:00:00 QL IA, respiratory Hospital Clinics specimen [code = rapid SARS CoV 2 Ag, QL IA, respiratory specimen] Diagnostic Test 2021-10-21 rapid strep group A, [facility] Pending 00:00:00 throat [code = rapid Hospita Clinics strep group A, throat] Instructions [facility] s Encounters Start End Encounter Admission Attending Care Care Encounter Source Date/Time Date/Time Type Type Clinicians Facility Department ID 2021-11-07 Outpatient [facility] [id number] [place] 01:51:34 [id number] [facility] 2021-10-07 Outpatient [facility] [id number] [place] 12:39:58 [id number] [facility] 2021-07-05 Outpatient SHIVA, [facility] [id number] [place] 01:03:47 LUCIEN [id number] [facility] 2022-01-15 2022-01-15 Outpatient SISSON_C [facility] [id number] [place] 00:00:00 00:00:00 1019 [facility] 2022-01-03 2022-01-03 Telephone George, [id number] 21 [id number] [facility] 00:00:00 00:00:00 Emily [id number] 769 [facility] [id number] Hosp bandar .[id number] l .8 2022-01-03 2022-01-03 Telephone George, [id number] [id number] Methodi 00:00:00 00:00:00 Emily [id number] 769 [facility] [id number] Hosp bandar .[id number] l .8 2022-01-02 2022-01-02 Outpatient SISSON_C [facility] [id number] [place] 00:00:00 00:00:00 1006 [facility] 2021-12-30 2021-12-31 Inpatient CHICO Arauz, [facility].01 [id number] [facility] 12:08:00 09:39:[address] 2021-12-18 2021-12-18 [facility] [id number] [place] 00:00:00 00:00:00 0921 [facility] 2021-12-18 2021-12-18 [facility] [place] 21 [place] 00:00:00 00:00:00 Julianne Lopez MSN, HUMAN RESOURCES FILE CLERK, Hospital - ty ARTIFICIAL BREEDING DISTRIBUTOR-C: [address] [place] [facility], Clinic s [address], [facility] [address], Mamta Lopez, YAEL MSN, ARTIFICIAL BREEDING DISTRIBUTOR-C [address] , Ph. 2021-12-12 2021-12-12 Outpatient SISSON_C [facility] [id number] [place] 00:00:00 00:00:00 0915 [facility] 2021-12-12 2021-12-12 Outpatient John [facility] [id number] 00:00:00 00:00:00 Willy [id number] 2021-12-12 2021-12-12 [facility] [place] [facility] [place] 00:00:00 00:00:00 [facility] Herbert uni MSN, HUMAN RESOURCES FILE CLERK, Hospital - ty ARTIFICIAL BREEDING DISTRIBUTOR-C: [address] [place] [facility] Clinic s [address], [facility] [address], Mamta Lopez, YAEL MSN, ARTIFICIAL BREEDING DISTRIBUTOR-C [address] , Ph. 2021-12-10 2021-12-10 Outpatient SISSON_C [facility] [id number] [place] 00:00:00 00:00:00 0913 [facility] 2021-11-11 2021-11-11 Outpatient CHRETIEN_F [facility] [id number] [place] 00:00:00 00:00:00 0815 [facility] 2021-11-08 2021-11-08 Outpatient CHRETIEN_F [facility] [id number] [place] 00:00:00 00:00:00 0812 [facility] 2021-11-08 2021-11-08 Outpatient Chago Longoriaa [facility] [id number] 00:00:00 00:00:00 [id number] 2021-11-08 2021-11-08 Emily [facility] [place] [facility] [place] 00:00:00 00:00:00 Julianne Longoria uni HUMAN RESOURCES FILE CLERK, MSN, Hospital - ty ARTIFICIAL BREEDING DISTRIBUTOR-: [address], CLIN[address], [place] [address] , Ph. 2021-10-22 2021-10-22 Outpatient CHRETIEN_F [facility] [id number] [place] 10:01:00 10:01:00 0726 [facility] 2021-10-21 2021-10-21 Outpatient [facility] [id number] [place] 10:15:00 10:15:00 MATTHEW Escamilla 2021-10-21 2021-10-21 Outpatient CHRETIEN_F [facility] [id number] [place] 06:03:00 06:03:00 0725 [facility] i [facility] Clin[facility] 2021-10-21 2021-10-21 Outpatient Chretien, [facility] [id number] 00:00:00 00:00:00 Kaitlin [id number] 2021-10-21 2021-10-21 Kaitlin [facility] [place] 00:00:00 00:00:00 Samantaetien, [facility] [employer] HUMAN RESOURCES FILE CLERK-ARTIFICIAL BREEDING DISTRIBUTOR-B [facility] C: [address] [facility], CLINIC [address], [place] [address] , Ph. 2021-10-14 2021-10-14 Outpatient [facility] [id number] [facility] 07:36:00 14:00:00 [place] 2021-10-14 2021-10-14 Outpatient [facility] [id number] [place] 09:00:00 09:00:00 [facility] 2021-10-11 2021-10-11 Outpatient LEVI_JEMAL HODGE 987 [place] 10:21:00 10:21:00 SSA 0715 da [facility] 2021-10-08 2021-10-08 Outpatient [facility] [id number] [place] 03:10:00 03:10:00 0712 [facility] 2021-09-23 2021-09-23 Orders Provider, 1.2.840.1 [id number] 2099 [id number] Methodi 00:00:00 00:00:00 Only [place] [address]185.1.[address] System 3.430.2.7 Hospit a .3.504614 l .8 2021-09-23 2021-09-23 Telephone Lord, 1.2.840.1 [id number] 2100 [id number] Methodi 00:00:00 00:00:[address] 3.430.2.7 Hospit a .3.977421 l .8 2021-09-23 2021-09-23 Orders Provider, 1.2.840.1 [id number] 2100 [id number] Methodi 00:00:00 00:00:00 Only Not In 96359.1.[address] System 3.430.2.7 Hospit a .3.199145 l .8 2021-09-23 2021-09-23 Telephone Lord, 1.2.840.1 [id number] 2100 [id number] Methodi 00:00:00 00:00:[address] 3.430.2.7 Hospit a .3.276064 l .8 2021-09-20 2021-09-20 Outpatient [facility] [id number] [place] 12:16:00 12:16:00 0624 [facility] 2021-09-20 2021-09-20 [facility] [place] - [place] 00:00:00 00:00:00 [facility] MSN, HUMAN RESOURCES FILE CLERK, Hospital - ty ARTIFICIAL BREEDING DISTRIBUTOR-C: [address] [place] [facility], [facility] s [address], [facility] [address], [place] Lopez, [place]AEL MSN, ARTIFICIAL BREEDING DISTRIBUTOR-C [address] , Ph. 2021-09-20 2021-09-20 [facility] [id number] 6-[id number] 00:00:00 00:00:00 Willy [id number] 2021-09-11 2021-09-11 Orders George, 1.2.840.1 [id number] 2099 [id number] Methodi 00:00:00 00:00:00 Only Emily 79425.1.[address] [place] 3.430.2.7 Hosp bandar .3.629700 l .8 2021-09-11 2021-09-11 Orders George, 1.2.840.1 [id number] 2099 [id number] Methodi 00:00:00 00:00:00 Only Emily 15051.1.[address] [place] 3.430.2.7 Hosp bandar .3.682145 l .8 2021-09-09 2021-09-09 Telephone George 1.2.840.1 [id number] Methodi 00:00:00 00:00:[address] [place] 3.430.2.7 Hosp bandar .3.308182 l .8 2021-09-09 2021-09-09 Telephone George 1.2.840.1 [id number] Methodi 00:00:00 00:00:[address] [place] 3.430.2.7 Hosp bandar .3.703773 l .8 2021-09-03 2021-09-03 Outpatient [facility] [id number] [place] 01:31:00 01:31:00 0607 [facility] 2021-08-21 2021-08-21 Office George 1.2.840.1 [id number] 2099 [id number] Methodi 14:45:00 15:41:16 Visit Emily 43546.1.[address] [place] 3.430.2.7 Hosp bandar .3.550754 l .8 2021-08-21 2021-08-21 Office George 1.2.840.1 [id number] 2099 [id number] Methodi 14:45:00 15:41:16 Visit Emily 49974.1.[address] [place] 3.430.2.7 Hosp bandar .3.335058 l .8 2021-08-21 2021-08-21 Travel 1.2.840.1 1.2.902.967 2699 [id number] Methodi 00:00:00 00:00:[address] 3.430.2.7 0.2.7.3.698 Ho spita .3.320020 084.8 l .8 2021-08-21 2021-08-21 Travel 1.2.840.1 1.2.729.509 1148 025889 Methodi 00:00:00 00:00:[address] 3.430.2.7 0.2.7.3.698 Ho spita .3.448679 084.8 l .8 2021-07-31 2021-07-31 Outpatient [facility] [id number] [place] 04:50:00 04:50:00 0504 Commun i ty Hospita l [facility] 2021-07-31 2021-07-31 [facility] [place] 00:00:00 00:00:00 [facility] MSN, HUMAN RESOURCES FILE CLERK, [facility] - ty ARTIFICIAL BREEDING DISTRIBUTOR-C: [address] [facility] [facility] [address], [facility] [address], [place] Lopez, [place] MSN, ARTIFICIAL BREEDING DISTRIBUTOR-C [address] , Ph. 2021-07-31 2021-07-31 Outpatient [facility] [id number] 4-[id number] 00:00:00 00:00:00 [facility] [id number] 2021-07-26 2021-07-26 Outpatient [facility] [id number] [place] 05:01:00 05:01:00 0429 Commun i ty Hospita l [facility] 2021-07-26 2021-07-26 [facility] [place] 00:00:00 00:00:00 [facility] uni MSN, HUMAN RESOURCES FILE CLERK, Hospital - ty ARTIFICIAL BREEDING DISTRIBUTOR-C: [address] [place] [facility], [facility] s [address], [facility] [address], [place] Lopez, [place] MSN, ARTIFICIAL BREEDING DISTRIBUTOR-C [address] , Ph. 2021-07-26 2021-07-26 Outpatient John [facility] [id number] 00:00:00 00:00:00 Willy [id number]-[id number] 2021-07-23 2021-07-23 Outpatient [facility] [id number] [place] 03:28:00 03:28:00 0426 Commun i ty Hospita l [facility] 2021-07-23 2021-07-23 Kaitlin [facility] [place] 00:00:00 00:00:00 [facility] mmuni HUMAN RESOURCES FILE CLERK-ARTIFICIAL BREEDING DISTRIBUTOR-B Hospital - ty C: [address] [place] [address], [facility] [address] [address] , Ph. 2021-07-23 2021-07-23 [facility] [id number] 00:00:00 00:00:00 Kaitlin [id number]-11ec-[id number] 2021-07-13 2021-07-13 Outpatient [facility] [id number] [place] 01:29:00 01:29:00 0416 [facility] i ty [facility] Clinics 2021-06-24 2021-06-24 Outpatient [facility] [id number] [place] 06:06:00 06:06:00 0328 [facility] i ty [facility] 2021-06-24 2021-06-24 [facility] [place] 00:00:00 00:00:00 [facility] uni HUMAN RESOURCES FILE CLERK-POULTRY OFFAL ICER-C: Hospital - ty [address], [place] [address] , Ph. 2021-06-24 2021-06-24 Outpatient Huma [facility] [id number] 00:00:00 00:00:00 [place] [id number] 2021-05-30 2021-05-30 Outpatient [facility] [id number] [place] 04:28:00 04:28:00 0303 Commun i ty Hospita l [facility] 2021-05-30 2021-05-30 [facility] [place] 00:00:00 00:00:00 [facility] HUMAN RESOURCES FILE CLERK-POULTRY OFFAL ICER-C: [address] [address], [place] [address] , Ph. 2021-05-30 2021-05-30 Outpatient Huma [facility] [id number] 00:00:00 00:00:00 [place] [id number] 2021-04-26 2021-04-26 Outpatient [facility] [id number] [place] 04:02:00 04:02:00 0128 Commun i ty Hospita [facility] Clinics 2021-04-10 2021-04-10 Outpatient [facility] [id number] [place] 10:19:00 10:19:00 0112 Commun i ty Hospita [facility] Clinics 2021-04-09 2021-04-09 Outpatient [facility] [id number] [place] 02:44:00 02:44:00 0111 Commun i ty Hospita [facility] Clinics 2021-04-09 2021-04-09 [facility] [place] 00:00:00 00:00:00 [facility] HUMAN RESOURCES FILE CLERK-POULTRY OFFAL ICER-C: [address] [address], [place] [address] , Ph. 2021-04-09 2021-04-09 Outpatient Huma, [facility] [id number] 00:00:00 00:00:00 [place] [id number] 2021-04-05 2021-04-05 Outpatient SHIVA, [facility] [id number] [facility] 10:06:00 23:59:00 LUCIEN 2021-03-14 2021-03-14 Outpatient [facility] [id number] [place] 11:37:00 11:37:00 1216 Commun i ty Hospita Clinics 2021-03-14 2021-03-14 [facility] [place] [id number] [place] 00:00:00 00:00:00 [facility] HUMAN RESOURCES FILE CLERK-POULTRY OFFAL ICER-C: Hospital - [address], [place] [address] , Ph. 2021-03-14 2021-03-14 Outpatient Finn, [facility] [id number] [id number] 00:00:00 00:00:00 [place] [id number] 2021-03-04 2021-03-04 Outpatient [facility] [id number] [place] 02:40:00 02:40:00 1206 Commun i ty Hospita [facility] 2021-03-04 2021-03-04 [facility] [place] [id number] [place] 00:00:00 00:00:00 [facility] HUMAN RESOURCES FILE CLERK-POULTRY OFFAL ICER-C: Hospital - ty [address] [place] [address] [address], [place] [address] , Ph. 2021-03-04 2021-03-04 Outpatient [facility], [facility] [id number] [id number] 00:00:00 00:00:00 [place] [id number] 2021-03-04 2021-03-04 Outpatient Finn, [facility] [id number] 4-5 00:00:00 00:00:00 [place] [id number] 2021-02-25 2021-02-25 Roula [facility] [place] [id number] [place] 00:00:00 00:00:00 [facility] Hospital - ty [address] [address], [place] [address] , Ph. 2021-02-25 2021-02-25 Outpatient [facility], [facility] [id number] [id number] 00:00:00 00:00:00 [place] [id number] 2021-01-14 2021-01-14 Outpatient [facility] [id number] [place] 05:43:00 05:43:00 1018 Commun i ty Hospita [facility] Clinics 2021-01-14 2021-01-14 Outpatient Finn, [facility] [id number] [id number] 00:00:00 00:00:00 [place] [id number]-9 [id number] 2021-01-14 2021-01-14 Outpatient Finn, [facility] [id number] [id number] 00:00:00 00:00:00 [place] [id number]-8 [id number] 2021-01-14 2021-01-14 [facility] [place] 18 [place] 00:00:00 00:00:00 [facility] Hospital - ty [address] [place] [address] [address], [place] [address] , Ph. 2020-10-16 2020-10-16 Outpatient [facility] [id number] [place] 02:24:00 02:24:00 0720 Commun i ty [facility]osp[facility] Clinics 2020-10-16 2020-10-16 Outpatient Finn, [facility] [id number] 00:00:00 00:00:00 [place] [id number]-[id number] 2020-10-16 2020-10-16 Roula [facility] [place] 00:00:00 00:00:00 [facility]-C: [address] [address], [place] [address] , Ph. 2020-09-28 2020-09-28 Outpatient [facility] [id number] [place] 12:14:00 12:14:00 0702 Commun i ty Hospita [facility] 2020-09-28 2020-09-28 Outpatient Finn, [facility] [id number] [id number] 00:00:00 00:00:00 [place] [id number] 2020-09-28 2020-09-28 [facility] [place] [id number] [place] 00:00:00 00:00:00 [facility]-C: [address] [address], [place] [address] , Ph. 2020-09-28 2020-09-28 Outpatient Finn, [facility] [id number] [id number] 00:00:00 00:00:00 [place] [id number] 2020-08-30 2020-08-30 Outpatient [facility] [id number] [place] 05:28:00 05:28:00 0603 Commun i ty Hospita [facility] Clinics 2020-08-26 2020-08-26 Outpatient [facility] [id number] [place] 01:01:00 01:01:00 0530 Commun i ty Hosp[facility] Clinics 2020-08-20 2020-08-20 Outpatient [facility] [id number] [place] 05:07:00 05:07:00 0524 Commun i ty Hosp[facility] Clinics 2020-08-20 2020-08-20 [place] [facility] [place] 24 [place] 00:00:00 00:00:00 [facility] HUMAN RESOURCES FILE CLERK-POULTRY OFFAL ICER-C: Hospital - ty [address] [place] [address] [address], [place] [address] , Ph. 2020-08-20 2020-08-20 Outpatient Finn, [facility] [id number] 00:00:00 00:00:00 [place] [id number] 2020-08-16 2020-08-16 Outpatient SUSTACHE, [facility] [id number] [place] 00:00:00 00:00:[address] 2020-08-13 2020-08-13 Outpatient [facility] [id number] [place] 04:15:00 04:15:00 0517 Commun i ty Hosp[facility] Clinics 2020-08-13 2020-08-13 [facility] [place] 17 [place] 00:00:00 00:00:00 [facility] uni HUMAN RESOURCES FILE CLERK-POULTRY OFFAL ICER-C: Hospital - ty [address] [place] [address] [address], [place] [address] , Ph. 2020-08-13 2020-08-13 Outpatient [facility] [id number] 00:00:00 00:00:00 [place] [id number] 2020-07-26 2020-07-26 Outpatient [facility] [id number] [place] 05:04:00 05:04:00 0429 Commun i ty Hospita l Clinics 2020-07-26 2020-07-26 [facility] [place] [id number] [place] 00:00:00 00:00:00 [facility] uni HUMAN RESOURCES FILE CLERK-POULTRY OFFAL ICER-C: Hospital - ty [address] [place] [address] [address], [place] [address] , Ph. 2020-07-26 2020-07-26 Outpatient Huma, [facility] [id number] 00:00:00 00:00:00 [place] [id number] 2020-07-24 2020-07-24 Outpatient SUSTACHE, [facility] [id number] [place] 00:00:00 00:00:00 SHIELA [address] 2020-07-23 2020-07-23 Emergency E ANNABELLE, [facility] [id number] [facility] 16:54:00 18:17:00 NICHELLE 2020-03-09 2020-03-09 Outpatient SHIVA, [facility] [id number] [facility] 11:08:00 23:59:00 LUCIEN 2018-07-28 2018-07-28 Outpatient [facility] [id number] [facility] 01:39:00 01:39:00 Results Test Description Test Time Test Comments Results Result Comments Source COVID 19 INHOUSE AG 2021-12-27 13:24:00 Test Item Value Reference Range Interpretation Comme nts COVID 19 INHOUSE AG (test code = NEGATIVE Negative Per office clerk routine, negative [id number]) results should be treated aspresumptive a nd, if inconsistent wi th clinical signs andsymptoms or necessary for patient managem ent, should betested with a n alternative molecular assay . Negative resultsdo not p reclude SARS-CoV-2 infection and s hould not be usedas the sole basis for patient management deci sions. Negative results should be considered in the context of apatient's recent exposures, hist ory, presence of clinicalsigns a nd symptoms consistent with COVID-19. PROTHROMBIN [id number] 12:35:00 Test Item Value Reference Range Interpretation Comments PT PATIENT (test 10.8 SECONDS 9.3-12.9 N code = PTP) INTERNATIONAL NORMAL 0.95 INR Unit 0.8-1.2 N TARGE T INR BY RATIO (test code = INDICATIO N Indication INR) INR1. Prophylax is of venous thrombos is 2.0 - 3.0 (orthoped ic surgery), Proph ylaxis of venous throm bosis (other than hig h-risk surgery), Treat ment of Deep Vein Thrombosis/Pulm onary Embolism, Preve ntion of systemic emb olism - Tissue heart va lves, Acute Myocardia l Infarction (to prevent systemic emboli sm), Valvular heart disease, Acute Myocardial Infa rction (to prevent sys temic embolism), Valv ular heart disease, Atrial Fibrillation, Bileaflet mecha nical valve in aortic position.2. Mec hanical prosthetic valv es (high risk), 2. 5 - 3.5 Presence of Lup us Anticoagulant o r Antiphospholipi d Antibodies, Pre vention of systemic emb olism - Acute Myocardia l Infarction (to prevent recurrent infar ct). THROMBOPLASTIN TIME [id number] 12:35:00 Test Item Value Reference Range Interpretation Comments THROMBOPLASTIN TIME PARTIAL 32.1 SECONDS 26-35 N (test code = PTT) BASIC METABOLIC [id number] 11:27:00 Test Item Value Reference Range Interpretation Comments SODIUM (test code = NA) 137 mmol/L 134-147 N POTASSIUM (test code = K) 3.5 mmol/L 3.4-5.0 N CHLORIDE (test code = CL) 103 mmol/L 100-108 N CARBON DIOXIDE (test code = CO2) 29 mmol/L 21-32 N ANION GAP (test code = GAP) 5.0 GAP calc 4.0-15.0 N GLUCOSE (test code = GLU) 90 MG/DL 70-110 N BLOOD UREA NITROGEN (test code = 8 MG/DL 7-18 N BUN) GLOMERULAR FILTRATION RATE (test 59 estGFR >60 L code = GFR) CREATININE (test code = CREAT) 1.0 MG/DL 0.6-1.0 N CALCIUM (test code = CA) 9.4 MG/DL 8.5-10.1 N CBC W/AUTO [id number] 11:16:00 Test Item Value Reference Range Interpretation Comments WHITE BLOOD CELL (test code = 6.5 K/mm3 3.5-11.0 N WBC) RED BLOOD CELL (test code = 5.71 M/mm3 4.70-6.10 N RBC) HEMOGLOBIN (test code = HGB) 17.1 G/DL 10.4-14.9 H HEMATOCRIT (test code = HCT) 50.4 % 31.5-44.1 H MEAN CELL VOLUME (test code = 88.3 Fl 84.5-98.6 N MCV) MEAN CELL HGB (test code = MCH) 29.9 pg 27.0-34.2 N MEAN CELL HGB CONCETRATION 33.9 G/DL 31.5-34.0 N (test code = MCHC) RED CELL DISTRIBUTION WIDTH 13.4 SD 11.5-14.5 N (test code = RDW) PLATELET COUNT (test code = 233 K/mm3 150-450 N PLT) MEAN PLATELET VOLUME (test code 11.20 fL 7.0-10.5 H = MPV) NEUTROPHIL % (test code = NT%) 64.7 % 40-76 N IMMATURE GRANULOCYTE % (test 0.3 % 0.0-5.0 N code = IG%) LYMPHOCYTE % (test code = LY%) 25.5 % 20.5-51.1 N MONOCYTE % (test code = MO%) 7.9 % 1.7-9.3 N EOSINOPHIL % (test code = EO%) 0.5 % 0.0-6.0 N BASOPHIL % (test code = BA%) 1.1 % 0.0-2.0 N NUCLEATED RBC % (test code = 0.0 /100WBC% 0.0-1.0 N NRBC%) NEUTROPHIL # (test code = NT#) 4.2 K/mm3 1.8-7.6 N IMMATURE GRANULOCYTE # (test 0.02 x10 3/uL 0.00-0.03 N code = IG#) LYMPHOCYTE # (test code = LY#) 1.7 K/mm3 0.6-3.2 N MONOCYTE # (test code = MO#) 0.5 K/mm3 0.3-1.1 N EOSINOPHIL # (test code = EO#) 0.0 K/mm3 0.0-0.4 N BASOPHIL # (test code = BA#) 0.1 K/mm3 0.0-0.1 N NUCLEATED RBC # (test code = 0.0 K/mm3 0.0-0.1 N NRBC#) MANUAL DIFF REQUIRED (test code NO DIFF/SCN CRITERIA = MDIFF) URINALYSIS [id number] 10:02:00 Test Item Value Reference Range Interpretation Comments UA GLUCOSE DIPSTICK (test NEGATIVE mg/dL NEG code = DGLUU) UA BILIRUBIN DIPSTICK (test NEGATIVE mg/dL NEG code = BILU) UA KETONE DIPSTICK (test NEGATIVE mg/dL NEG code = KETU) UA SPECIFIC GRAVITY (test <=1.005 SG 1.005-1.030 code = SGU) UA BLOOD DIPSTICK (test NEGATIVE mg/DL NEG code = NEGIN) UA PH DIPSTICK (test code = 6.0 pH UNITS 5.0-7.0 JULIO) UA PROTEIN DIPSTICK (test NEGATIVE mg/dL NEG code = PROU) UA UROBILINIOGEN DIPSTICK 0.2 mg/dL <2.0 (test code = URO) UA NITRITE DIPSTICK (test NEGATIVE SCREEN NEG code = CHAVA) UA LEUKOCYTE ESTERASE NEGATIVE Leuk/mcL NEGATIVE DIPSTICK (test code = LEUU) Urine Specimen Type: Clean Catch- XR CHEST 1 [id number] 09:57:00 [facility] 1955 Sex: F Name: BOZENA MARSH [facility] : 1955 Age/S: 66 / F [id number] [address] [place] Unit #: [id number] Loc: [place] [address] Phys: Gama Gabriel MD Acct: [id number] Dis Date: Status: PRE [facility] PHONE #:[phone] Exam Date: 12/27/2021 0957 FAX #: Reason: PREOP EXAMS: CPT: [id number] XR CHEST 1 V 35751 Fluoro Time: DAP (Gy m2): Air Kerma (mGy): EXAM: Portable chest x-ray, one view INDICATION: PREOP ADMITTING DIAGNOSIS: N81.6, rectocele LOCATION CODE: C3 COMPARISON: None TECHNIQUE: Single Portable AP upright view of the chest DISCUSSION: Catheter and Tubes: none Lung: The lungs are clear. No pneumothorax No Pleural effusion Mediastinum: Unremarkable Cardiac: Unremarkable Osseous structures are within normal limits. IMPRESSION: 1. Unremarkable chest x-ray. at 0957 Reported and signed by: Armand Ramirez M.D. CC: Gama aGbriel MD; Elvia Arauz MD PAGE 1 Signed Report Name: BOZENA MARSH : 1955 Age/S: 66 / F [id number] [address] [place] Unit #: [id number] Loc: [place] [address] Phys: Gama Gabriel MD Acct: [id number] Dis Date: Status: PRE SDC PHONE #: [phone] Exam Date: 12/27/2021956 FAX #: Reason: PREOP EXAMS: CPT: [id number] XR CHEST 1 V 33379 Fluoro Time: DAP (Gy m2): Air Kerma (mGy): (Continued) Technologist: RT Annalise(R) Trnutb Date/Time: 12/27/2021 (0957) t.[email or web address] Orig Print D/T: S: 12/27/2021 (1001) PAGE 2 Signed Report Urinalysis macro (dipstick) panel - [id number] 15:03:00 Test Item Value Reference Range Interpretation Comments Leukocytes (test code = Leukocytes) Small Nitrite (test code = Nitrite) negative Urobilinogen (test code = .2 Urobilinogen) Protein (test code = Protein) Trace pH (test code = pH) 7.0 Blood (test code = Blood) Moderate Specific [place] (test code = 1.015 Specific [place]) Ketone (test code = Ketone) Trace Bilirubin (test code = Bilirubin) Negative Glucose (test code = Glucose) Negative Appearance (test code = Appearance) Turbid Color (test code = Color) Yellow [facility] (dipstick) panel - Urine 2021-10-21 15:03:00 Test Item Value Reference Range Interpretation Comments Leukocytes (test code = Leukocytes) Small Nitrite (test code = Nitrite) negative Urobilinogen (test code = .2 Urobilinogen) Protein (test code = Protein) Trace pH (test code = pH) 7.0 Blood (test code = Blood) Moderate Specific [place] (test code = 1.015 Specific [place]) Ketone (test code = Ketone) Trace Bilirubin (test code = Bilirubin) Negative Glucose (test code = Glucose) Negative Appearance (test code = Appearance) Turbid Color (test code = Color) Yellow [facility] strep group A, [id number] 14:56:00 Test Item Value Reference Range Interpretation Comments Strep (test code = Strep) negative [facility] strep group A, [id number] 14:56:00 Test Item Value Reference Range Interpretation Comments Strep (test code = Strep) negative [facility]-CoV-2 (COVID-19) Ag [Presence] in Respiratory specimen by Rapid [id number] 14:55:00 Test Item Value Reference Range Interpretation Comments SARS CoV 2 (test code = SARS CoV 2) negative [facility]-CoV-2 (COVID-19) Ag [Presence] in Respiratory specimen by Rapid [id number] 14:55:00 Test Item Value Reference Range Interpretation Comments SARS CoV 2 (test code = SARS CoV 2) negative [facility] urinalysis [id number] 19:36:00 Test Item Value Reference Range Interpretation Comments Color urine, POC (test Yellow code = 7291587) Clarity urine, POC (test Clear code = 0859120) Glucose urine, POC (test Negative Negative code = 7701477) Bilirubin urine, POC Negative Negative (test code = 5372581) Ketones urine, POC (test Negative Negative code = 1912970) Specific gravity urine, 1.005-1.030 POC (test code = 0985904) Blood urine, POC (test Trace Negative A code = 9807269) pH urine, POC (test code See_Comment [A utomated message] = 2385750) The system [employer] generated this result transmitted ref erence range: 5.0, 5.5 , 6.0, 6.5, 7.0, 7.5, 8.0, 8.5. The refere nce range was not u sed to interpret this result as normal/abnor mal. Protein urine, POC (test Negative Negative code = 8814986) Urobilinogen urine, POC <2.0 See_Comment [Au tomated message] (test code = 0263383) The sy stem which generated this result transmitted ref erence range: <=2.0. T he reference range was not used to int erpret this result as normal/abnormal . Nitrite urine, POC (test Negative Negative code = 5360558) Leukocyte esterase Negative Negative urine, POC (test code = 2919558) Lab Interpretation (test Abnormal code = 62089-9) [facility] BLADDER SCAN/[id number] 19:36:00 Test Item Value Reference Range Interpretation Comments Volume (test code = 8545336) [facility] urinalysis [id number] 19:36:00 Test Item Value Reference Range Interpretation Comments Color urine, POC (test Yellow code = 0236690) Clarity urine, POC (test Clear code = 1357188) Glucose urine, POC (test Negative Negative code = 9622803) Bilirubin urine, POC Negative Negative (test code = 3699654) Ketones urine, POC (test Negative Negative code = 6580771) Specific gravity urine, 1.005-1.030 POC (test code = 4595470) Blood urine, POC (test Trace Negative A code = 1432323) pH urine, POC (test code See_Comment [A utomated message] = 1423796) The system [employer] generated this result transmitted ref erence range: 5.0, 5.5 , 6.0, 6.5, 7.0, 7.5, 8.0, 8.5. The refere nce range was not u sed to interpret this result as normal/abnor mal. Protein urine, POC (test Negative Negative code = 1349842) Urobilinogen urine, POC <2.0 See_Comment [Au tomated message] (test code = 5999358) The sy stem which generated this result transmitted ref erence range: <=2.0. T he reference range was not used to int erpret this result as normal/abnormal . Nitrite urine, POC (test Negative Negative code = 5076597) Leukocyte esterase Negative Negative urine, POC (test code = 6018036) Lab Interpretation (test Abnormal code = 64768-2) [facility] BLADDER SCAN/[id number] 19:36:00 Test Item Value Reference Range Interpretation Comments Volume (test code = 9653799) [facility] urinalysis [id number] 19:36:00 Test Item Value Reference Range Interpretation Comments Color urine, POC (test Yellow code = 9660752) Clarity urine, POC (test Clear code = 5259720) Glucose urine, POC (test Negative Negative code = 1184323) Bilirubin urine, POC Negative Negative (test code = 8488520) Ketones urine, POC (test Negative Negative code = 4590868) Specific gravity urine, 1.005-1.030 POC (test code = 9535562) Blood urine, POC (test Trace Negative A code = 6817565) pH urine, POC (test code See_Comment [A utomated message] = 3257573) The system [employer] h generated this result transmitted ref erence range: 5.0, 5.5 , 6.0, 6.5, 7.0, 7.5, 8.0, 8.5. The refere nce range was not u sed to interpret this result as normal/abnor mal. Protein urine, POC (test Negative Negative code = 1589283) Urobilinogen urine, POC <2.0 See_Comment [Au tomated message] (test code = 2221781) The sy stem which generated this result transmitted ref erence range: <=2.0. T he reference range was not used to int erpret this result as normal/abnormal . Nitrite urine, POC (test Negative Negative code = 2216721) Leukocyte esterase Negative Negative urine, POC (test code = 4197014) Lab Interpretation (test Abnormal code = 32696-9) [facility] BLADDER SCAN/[id number] 19:36:00 Test Item Value Reference Range Interpretation Comments Volume (test code = 0088416) [facility] urinalysis bwtkapzm1721-03-70 19:36:00 Test Item Value Reference Range Interpretation Comments Color urine, POC (test Yellow code = 8797933) Clarity urine, POC (test Clear code = 8080266) Glucose urine, POC (test Negative Negative code = 2524113) Bilirubin urine, POC Negative Negative (test code = 0966440) Ketones urine, POC (test Negative Negative code = 9949978) Specific gravity urine, 1.005-1.030 POC (test code = 1152620) Blood urine, POC (test Trace Negative A code = 3435496) pH urine, POC (test code See_Comment [A utomated message] = 1322849) The system [employer] generated this result transmitted ref erence range: 5.0, 5.5 , 6.0, 6.5, 7.0, 7.5, 8.0, 8.5. The refere nce range was not u sed to interpret this result as normal/abnor mal. Protein urine, POC (test Negative Negative code = 6009221) Urobilinogen urine, POC <2.0 See_Comment [Au tomated message] (test code = 7785316) The sy stem which generated this result transmitted ref erence range: <=2.0. T he reference range was not used to int erpret this result as normal/abnormal . Nitrite urine, POC (test Negative Negative code = 0024796) Leukocyte esterase Negative Negative urine, POC (test code = 3383581) Lab Interpretation (test Abnormal code = 06399-8) [facility] BLADDER SCAN/[id number] 19:36:00 Test Item Value Reference Range Interpretation Comments Volume (test code = 8487312) [facility] Iqekloh5212-58-29 00:00:00 Test Item Value Reference Range Interpretation Comments Bacteria identified in Urine by no growth Culture (test code = 630-4) [facility] 2021-07-24 00:00:00 Test Item Value Reference Range Interpretation Comments Bacteria identified in Urine by no growth Culture (test code = 630-4) [facility] [id number] 00:00:00 Test Item Value Reference Range Interpretation Comments written authorization (test code = comment written authorization) [facility] by Culture 2021-06-29 00:00:00 Test Item Value Reference Range Interpretation Comments Bacteria identified in Urine by no growth Culture (test code = 630-4) [facility] Culture 2021-06-29 00:00:00 Test Item Value Reference Range Interpretation Comments Bacteria identified in Urine by no growth Culture (test code = 630-4) [facility] by Culture 2021-06-29 00:00:00 Test Item Value Reference Range Interpretation Comments Bacteria identified in Urine by no growth Culture (test code = 630-4) [facility] by Culture 2021-06-29 00:00:00 Test Item Value Reference Range Interpretation Comments Bacteria identified in Urine by no growth Culture (test code = 630-4) [facility] Hospital[facility]inal[facility] macro (dipstick) panel - Urine 2021-06-27 16:17:00 Test Item Value Reference Range Interpretation Comments Leukocytes (test code = Small Leukocytes) Nitrite (test code = negative Nitrite) Urobilinogen (test code = .2 Urobilinogen) Protein (test code = Negative Protein) pH (test code = pH) 7.5 Blood (test code = Blood) Non-Hemolyzed: Trace Specific [place] (test 1.000 code = Specific [place]) Ketone (test code = Negative Ketone) Bilirubin (test code = Negative Bilirubin) Glucose (test code = Negative Glucose) Appearance (test code = Clear Appearance) Color (test code = Color) Pale Yellow [facility] macro (dipstick) panel - Urine 2021-06-27 16:17:00 Test Item Value Reference Range Interpretation Comments Leukocytes (test code = Small Leukocytes) Nitrite (test code = negative Nitrite) Urobilinogen (test code = .2 Urobilinogen) Protein (test code = Negative Protein) pH (test code = pH) 7.5 Blood (test code = Blood) Non-Hemolyzed: Trace Specific [place] (test 1.000 code = Specific [place]) Ketone (test code = Negative Ketone) Bilirubin (test code = Negative Bilirubin) Glucose (test code = Negative Glucose) Appearance (test code = Clear Appearance) Color (test code = Color) Pale Yellow [facility] W Auto Differential panel - [id number] 00:00:00 Test Item Value Reference Range Interpretation Comments Leukocytes [#/volume] in Blood 6.4 x10e3/uL 3.4-10.8 by Automated count (test code = 6690-2) Erythrocytes [#/volume] in 5.20 x10e6/uL 3.77-5.28 Blood by Automated count (test code = 789-8) Hemoglobin [Mass/volume] in 15.5 g/dL 11.1-15.9 Blood (test code = 718-7) Hematocrit [Volume Fraction] of 46.3 % 34.0-46.6 Blood by Automated count (test code = 4544-3) Erythrocyte mean corpuscular 89 fL 79-97 volume [Entitic volume] by Automated count (test code = 787-2) MCH [Entitic mass] by Automated 29.8 pg 26.6-33.0 count (test code = 785-6) Erythrocyte mean corpuscular 33.5 g/dL 31.5-35.7 hemoglobin concentration [Mass/volume] by Automated count (test code = 786-4) Erythrocyte distribution width 12.6 % 11.7-15.4 [Ratio] by Automated count (test code = 788-0) Platelets [#/volume] in Blood 234 x10e3/uL 150-450 by Automated count (test code = 777-3) Neutrophils/100 leukocytes in 59 % not estab. Blood by Automated count (test code = 770-8) Lymphocytes/100 leukocytes in 30 % not estab. Blood by Automated count (test code = 736-9) Monocytes/100 leukocytes in 9 % not estab. Blood by Automated count (test code = 5905-5) Eosinophils/100 leukocytes in 1 % not estab. Blood by Automated count (test code = 713-8) Basophils/100 leukocytes in 1 % not estab. Blood by Automated count (test code = 706-2) immature cells (test code = psych arnp immature cells) Neutrophils [#/volume] in Blood 3.7 x10e3/uL 1.4-7.0 by Automated count (test code = 751-8) Lymphocytes [#/volume] in Blood 1.9 x10e3/uL 0.7-3.1 by Automated count (test code = 731-0) Monocytes [#/volume] in Blood 0.6 x10e3/uL 0.1-0.9 by Automated count (test code = 742-7) Eosinophils [#/volume] in Blood 0.1 x10e3/uL 0.0-0.4 by Automated count (test code = 711-2) Basophils [#/volume] in Blood 0.1 x10e3/uL 0.0-0.2 by Automated count (test code = 704-7) Immature granulocytes/100 0 % not estab. leukocytes in Blood by Automated count (test code = 32534-0) Immature granulocytes 0.0 x10e3/uL 0.0-0.1 [#/volume] in Blood by Automated count (test code = 79422-8) Nucleated erythrocytes/100 psych arnp leukocytes [Ratio] in Blood by Automated count (test code = 15456-2) Morphology [Interpretation] in psych arnp Blood Narrative (test code = 14075-4) [facility] 2000 panel - Serum or [id number] 00:00:00 Test Item Value Reference Range Interpretation Comments Glucose [Mass/volume] in Serum 112 mg/dL 65-99 H or Plasma (test code = 2345-7) Urea nitrogen [Mass/volume] in 12 mg/dL 8-27 Serum or Plasma (test code = 3094-0) Creatinine [Mass/volume] in 0.89 mg/dL 0.57-1.00 Serum or Plasma (test code = 2160-0) eGFR (test code = eGFR) 72 mL/min/1.73 >59 Urea nitrogen/Creatinine [Mass 13 12-28 Ratio] in Serum or Plasma (test code = 3097-3) Sodium [Moles/volume] in Serum 139 mmol/L 134-144 or Plasma (test code = 2951-2) Potassium [Moles/volume] in 3.6 mmol/L 3.5-5.2 Serum or Plasma (test code = 2823-3) Chloride [Moles/volume] in 100 mmol/L 96-106 Serum or Plasma (test code = 2075-0) Carbon dioxide, total 21 mmol/L 20-29 [Moles/volume] in Serum or Plasma (test code = 8-9) Calcium [Mass/volume] in Serum 10.0 mg/dL 8.7-10.3 or Plasma (test code = 58328-8) Protein [Mass/volume] in Serum 6.5 g/dL 6.0-8.5 or Plasma (test code = 2885-2) Albumin [Mass/volume] in Serum 4.4 g/dL 3.8-4.8 or Plasma (test code = 1751-7) Globulin [Mass/volume] in 2.1 g/dL 1.5-4.5 Serum by calculation (test code = 70965-1) Albumin/Globulin [Mass Ratio] 2.1 1.2-2.2 in Serum or Plasma (test code = 1759-0) Bilirubin.total [Mass/volume] <0.2 0.0-1.2 in Serum or Plasma (test code = 1975-2) Alkaline phosphatase 86 IU/L 44-121 [Enzymatic activity/volume] in Serum or Plasma (test code = 6768-6) Aspartate aminotransferase 24 IU/L 0-40 [Enzymatic activity/volume] in Serum or Plasma (test code = 1920-8) Alanine aminotransferase 37 IU/L 0-32 H [Enzymatic activity/volume] in Serum or Plasma (test code = 1742-6) [facility]yrotropin [Units/volume] in Serum or Plasma by Detection limit <= 0.005 mIU/[id number] 00:00:00 Test Item Value Reference Range Interpretation Comments Thyrotropin [Units/volume] in 2.820 uIU/mL 0.450-4.500 Serum or Plasma by Detection limit <= 0.005 mIU/L (test code = 36115-5) [facility] HospitalThyroxine (T4) free [Mass/volume] in Serum or [id number] 00:00:00 Test Item Value Reference Range Interpretation Comments Thyroxine (T4) free [Mass/volume] 1.04 NG/dL 0.82-1.77 in Serum or Plasma (test code = 3024-7) [facility]no test imoiqumqe0715-11-59 00:00:00 Test Item Value Reference Range Interpretation Comments dear doctor, (test code = dear comment doctor,) [facility] HospitalLipid 1996 panel - Serum or [id number] 00:00:00 Test Item Value Reference Range Interpretation Comments Cholesterol [Mass/volume] in Serum 269 mg/dL 100-199 H or Plasma (test code = 2093-3) Triglyceride [Mass/volume] in Serum 327 mg/dL 0-149 H or Plasma (test code = 2571-8) Cholesterol in HDL [Mass/volume] in 52 mg/dL >39 Serum or Plasma (test code = 2085-9) Cholesterol in VLDL [Mass/volume] 61 mg/dL 5-40 H in Serum or Plasma by calculation (test code = 26361-7) Cholesterol in LDL [Mass/volume] in 156 mg/dL 0-99 H Serum or Plasma by calculation (test code = 05956-5) Laboratory comment [Text] in Report psych arnp Narrative (test code = 13586-5) Cholesterol in LDL/Cholesterol in 3.0 ratio 0.0-3.2 HDL [Mass Ratio] in Serum or Plasma (test code = 31574-4) [facility] HospitalHelicobacter pylori IgA and IgG and IgM [Interpretation] in Serum or [id number] 00:00:00 Test Item Value Reference Range Interpretation Comments Helicobacter pylori IgG Ab 0.45 index value 0.00-0.79 [Units/volume] in Serum by Immunoassay (test code = 5176-3) Helicobacter pylori IgA Ab <9.0 0.0-8.9 [Units/volume] in Serum (test code = 7901-2) Helicobacter pylori IgM Ab <9.0 0.0-8.9 [Units/volume] in Serum (test code = 7903-8) [facility] HospitalFolate+Cyanocobalamin [Interpretation] in Serum or [id number] 00:00:00 Test Item Value Reference Range Interpretation Comments Cobalamin (Vitamin B12) 920 pg/mL 232-1245 [Mass/volume] in Serum or Plasma (test code = 2132-9) Folate [Mass/volume] in Serum or >20.0 >3.0 Plasma (test code = 2284-8) [facility]25-Hydroxyvitamin D3+25-Hydroxyvitamin D2 [Mass/volume] in Serum or [id number] 00:00:00 Test Item Value Reference Range Interpretation Comments 25-Hydroxyvitamin 36.5 NG/mL 30.0-100.0 D3+25-Hydroxyvitamin D2 [Mass/volume] in Serum or Plasma (test code = 37467-5) [facility] HospitalFerritin [Mass/volume] in Serum or Plasma 2021-06-25 00:00:00 Test Item Value Reference Range Interpretation Comments Ferritin [Mass/volume] in Serum or 96 NG/mL 15-150 Plasma (test code = 2276-4) [facility] HospitalUrinalysis macro (dipstick) panel - Urine 2021-04-09 13:17:00 Test Item Value Reference Range Interpretation Comments Leukocytes (test code = Small Leukocytes) Nitrite (test code = negative Nitrite) Urobilinogen (test code = .2 Urobilinogen) Protein (test code = Negative Protein) pH (test code = pH) 5.0 Blood (test code = Blood) Hemolyzed: Trace Specific [place] (test code 1.015 = Specific [place]) Ketone (test code = Ketone) Negative Bilirubin (test code = Negative Bilirubin) Glucose (test code = Negative Glucose) [facility] (COVID-19) Ag [Presence] in Respiratory specimen by Rapid [id number] 16:26:00 Test Item Value Reference Range Interpretation Comments SARS CoV 2 (test code = SARS CoV 2) negative [facility] (COVID-19) Ag [Presence] in Respiratory specimen by Rapid [id number] 16:26:00 Test Item Value Reference Range Interpretation Comments SARS CoV 2 (test code = SARS CoV 2) negative [facility] (COVID-19) Ag [Presence] in Respiratory specimen by Rapid [id number] 16:26:00 Test Item Value Reference Range Interpretation Comments SARS CoV 2 (test code = SARS CoV 2) negative [facility] (COVID-19) Ag [Presence] in Respiratory specimen by Rapid sfindfrgqhs8726-54-44 16:26:00 Test Item Value Reference Range Interpretation Comments SARS CoV 2 (test code = SARS CoV 2) negative [facility] flu (A+B)2021-02-25 16:10:00 Test Item Value Reference Range Interpretation Comments FLU A (test code = FLU A) negative FLU B (test code = FLU B) negative [facility] (A+B)2021-02-25 16:10:00 Test Item Value Reference Range Interpretation Comments FLU A (test code = FLU A) negative FLU B (test code = FLU B) negative [facility] (A+B)2021-02-25 16:10:00 Test Item Value Reference Range Interpretation Comments FLU A (test code = FLU A) negative FLU B (test code = FLU B) negative [facility] flu (A+B)2021-02-25 16:10:00 Test Item Value Reference Range Interpretation Comments FLU A (test code = FLU A) negative FLU B (test code = FLU B) [facility] [id number] 16:09:00 Test Item Value Reference Range Interpretation Comments Strep (test code = Strep) [facility], [id number] 16:09:00 Test Item Value Reference Range Interpretation Comments Strep (test code = Strep) [facility], [id number] 16:09:00 Test Item Value Reference Range Interpretation Comments Strep (test code = Strep) [facility], [id number] 16:09:00 Test Item Value Reference Range Interpretation Comments Strep (test code = Strep) positive [facility] HospitalHeterophile Ab [Presence] in Blood by Wznhllaytcj1646-18-07 15:33:00 Test Item Value Reference Range Interpretation Comments [place] (test code = [place]) negative [facility] HospitalHeterophile Ab [Presence] in Blood by Vtuvazgmjto8796-67-00 15:33:00 Test Item Value Reference Range Interpretation Comments [place] (test code = [place]) negative [facility] binding capacity panel - Serum or [id number] 00:00:00 Test Item Value Reference Range Interpretation Comments Iron binding capacity [Mass/volume] 350 ug/dL 250-450 in Serum or Plasma (test code = 2500-7) Iron binding capacity.unsaturated 277 ug/dL 118-369 [Mass/volume] in Serum or Plasma (test code = 2501-5) Iron [Mass/volume] in Serum or 73 ug/dL 27-139 Plasma (test code = 2498-4) Iron saturation [Mass Fraction] in 21 % 15-55 Serum or Plasma (test code = 2502-3) [facility] HospitalFolate+Cyanocobalamin [Interpretation] in Serum or [id number] 00:00:00 Test Item Value Reference Range Interpretation Comments Cobalamin (Vitamin B12) 971 pg/mL 232-1245 [Mass/volume] in Serum or Plasma (test code = 2132-9) Folate [Mass/volume] in Serum or >20.0 >3.0 Plasma (test code = 2284-8) [facility] HospitalPhosphate [Mass/volume] in Serum or Plasma 2020-07-27 00:00:00 Test Item Value Reference Range Interpretation Comments Phosphate [Mass/volume] in Serum or 3.0 mg/dL 3.0-4.3 Plasma (test code = 2777-1) [facility] HospitalErythrocyte sedimentation rate by Westergren [id number] 00:00:00 Test Item Value Reference Range Interpretation Comments Erythrocyte sedimentation rate by 4 mm/HR 0-40 Westergren method (test code = 4537-7) [facility] HospitalMagnesium [Mass/volume] in Serum or Plasma 2020-07-27 00:00:00 Test Item Value Reference Range Interpretation Comments Magnesium [Mass/volume] in Serum or 2.2 mg/dL 1.6-2.3 Plasma (test code = 44063-7) [facility] HospitalIron and Iron binding capacity panel - Serum or [id number] 00:00:00 Test Item Value Reference Range Interpretation Comments Iron binding capacity [Mass/volume] 350 ug/dL 250-450 in Serum or Plasma (test code = 2500-7) Iron binding capacity.unsaturated 277 ug/dL 118-369 [Mass/volume] in Serum or Plasma (test code = 2501-5) Iron [Mass/volume] in Serum or 73 ug/dL 27-139 Plasma (test code = 2498-4) Iron saturation [Mass Fraction] in 21 % 15-55 Serum or Plasma (test code = 2502-3) [facility] HospitalFolate+Cyanocobalamin [Interpretation] in Serum or [id number] 00:00:00 Test Item Value Reference Range Interpretation Comments Cobalamin (Vitamin B12) 971 pg/mL 232-1245 [Mass/volume] in Serum or Plasma (test code = 2132-9) Folate [Mass/volume] in Serum or >20.0 >3.0 Plasma (test code = 2284-8) [facility] HospitalPhosphate [Mass/volume] in Serum or Plasma 2020-07-27 00:00:00 Test Item Value Reference Range Interpretation Comments Phosphate [Mass/volume] in Serum or 3.0 mg/dL 3.0-4.3 Plasma (test code = 2777-1) [facility] HospitalErythrocyte sedimentation rate by Westergren [id number] 00:00:00 Test Item Value Reference Range Interpretation Comments Erythrocyte sedimentation rate by 4 mm/HR 0-40 Westergren method (test code = 4537-7) [facility] HospitalMagnesium [Mass/volume] in Serum or Plasma 2020-07-27 00:00:00 Test Item Value Reference Range Interpretation Comments Magnesium [Mass/volume] in Serum or 2.2 mg/dL 1.6-2.3 Plasma (test code = 11020-0) [facility] HospitalSURG2018-10-05 11:22:00 RUN DATE: 01/01/18 [facility] - LAB *LIVE* PAGE 1 RUN TIME: 1122 Specimen Inquiry RUN USER: INTERFACE PATIENT: SALMABOZENA LOC: [facility] U #: [id number] AGE/SX: 62/F ROOM: RE12/31/17REG DR: Raz Gaspar III : 57 BED: DIS: STATUS: [facility] TLOC: SPEC #: [id number] RECD: 12/31/17 STATUS: HENRY DANNY #: [id number] SHYANN: 12/31/[address]: Raz Gaspar III, MD ENTERED: 12/31/17 SP TYPE: SURG OTHR DR: No Primary or Family PhysicianORDERED: SURG PATH LVL 1, SURG PATH LVL 4 COPIES TO: No Primary [place] [address] [facility] [address] [place] [address] HISTOLOGY: TISSUE ID BLK PCS ANAIS LEV PROCEDURE DISPOSITION ____ ___ ___ ___ NASAL TURBINATE A 1 1 NASAL SEPTUM, N B 1 1 PROCEDURES: SURG PATH LVL 1 (01/01/18) SURG PATH LVL 4 (01/01/18) TISSUES: A. NASAL TURBINATE, NOS - BILATERAL INFERIOR TURBINATES B. NASAL SEPTUM, NOS - SEPTUM CPT CODES CPT CODE(S): 61903 , 20984 , , , , , FINAL DIAGNOSIS A. Inferior turbinate, bilateral, endoscopic sinus surgery: SINUS CONTENTS CONSISTENT WITH CHRONIC SINUSITIS B. Nasal septum, septoplasty: BONE AND CARTILAGE (GROSS ONLY) GROSS DESCRIPTION A. Bilateral inferior turbinates. Received in formalin are irregular fragments of sauceda-brown soft tissue admixed with dark brown blood clots, 2.7 x 1.8 x 1.0 cm in aggregate. Disassembler sections submitted as A. B. Septum. Received in formalin are multiple irregular fragments of cartilage CONTINUED ON NEXT PAGE RUN DATE: 01/01/18 [facility] - LAB *LIVE* PAGE 2 RUN TIME: 1122 Specimen Inquiry RUN USER: INTERFACE SPEC #: [id number] PATIENT: BOZENA MARSH #[id number] (Continued) GROSS DESCRIPTION (Continued) and bones, 5.0 x 3.5 x 0.7 cm in aggregate. The specimen is photographed for gross identification only. ba/nr Grossing performed at [facility], [address] [facility], [address], [place], [place] [address]. Director Of Architecture: aRlph Dash M.D. MICROSCOPIC DESCRIPTION A. Bilateral inferior turbinates. Fragments of respiratory epithelium lined mucosa. There are benign mucus glands and a chronic inflammatory infiltrate. Fragments of unremarkable cartilage and bone present. No evidence of malignancy. B. Septum. For gross identification only. /doug Signed SIGNATURE ON FILE Kel Chatterjee 01/01/18 1122 END OF REPORT
[2022-01-22] MEDS ORDERED: KETOROLAC 30 MG/ML INJ ONE (07:58)
[2022-01-22] MEDS ORDERED: DIAZEPAM 5 MG TABLET ONE (07:58)
--- NOTE | 2022-01-22 08:23 | RAD REPORT ---
EXAM DESCRIPTION: RAD - Hip Right 2 View - 01/22/2022 8:07 am CLINICAL HISTORY: PAIN COMPARISON: No comparisons FINDINGS: No acute fracture. No malalignment. Mild right acetabular degenerative changes. IMPRESSION: No acute osseous abnormality involving the right hip.
--- NOTE | 2022-01-22 08:23 | RAD REPORT ---
EXAM DESCRIPTION: RAD - Shoulder Right 2 View - 01/22/2022 8:07 am CLINICAL HISTORY: PAIN COMPARISON: No comparisons FINDINGS/IMPRESSION: No acute fracture. No malalignment. Moderate right AC joint degenerative change s with subacromial spurring.
[2022-01-22 08:35] LABS: Absolute Lymphocytes (CBC) 1.2 K/uL (0.7-4.9); Lymphocytes % 20.8 % (15.3-44.8); MPV 9.1 fL (7.6-11.3); RBC Red Blood Cell Count 5.33 M/uL (3.86-4.86)
[2022-01-22 08:52] LABS: Potassium 3.9 mmol/L (3.5-5.1)
[2022-01-22] MEDS ORDERED: NA CHLORIDE 0.9% 1,000 ML ONE (09:03)
[2022-01-22] MEDS ORDERED: ONDANSETRON 4 MG/2 ML VIAL ONE (09:03)
--- NOTE | 2022-01-22 10:12 | ER ---
Nurse's Notes [facility] Name: Tracey Rodriguez Age: 66 yrs Sex: Female : 1955 Arrival Date: 01/22/2022 Time: 07:34 Bed 19 Private MD: Diagnosis: Pain in right shoulder;Pain in right hip;Myalgia Presentation: 01/22 07:27 Chief complaint: Patient states: Patient states has been feeling dehydrated x 2 days. 3 db wks ago had surgery for prolapse. pain in neck, shoulders, and hip. Denies recent injury. Patient states last night heard "buzzing sound" EMS states: per EMS patient was ambulatory on scene. Coronavirus screen: Vaccine status: Patient reports being unvaccinated. Client denies travel out of the [place] in the last 14 days. At this time, the client does not indicate any symptoms associated with coronavirus-19. Ebola Screen: Patient negative for fever greater than or equal to 101.5 degrees Fahrenheit, and additional compatible Ebola Virus Disease symptoms Patient denies exposure to infectious person. Patient denies travel to an Ebola-affected area in the 21 days before illness onset. No symptoms or risks identified at this time. Initial Sepsis Screen: Does the patient meet any 2 criteria? No. Patient's initial sepsis screen is negative. Does the patient have a suspected source of infection? No. Patient's initial sepsis screen is negative. Risk Assessment: Do you want to hurt yourself or someone else? Patient reports no desire to harm self or others. Onset of symptoms was January 20, 2022. Care prior to arrival: None. 07:27 Method Of Arrival: EMS: [facility] db 07:27 Acuity: ANUJA 3 db Triage Assessment: 07:41 General: Appears in no apparent distress. comfortable, Behavior is calm, cooperative, db appropriate for age, quiet. Pain: Complains of pain in neck, shoulders, hip. EENT: No deficits noted. No signs and/or symptoms were reported regarding the EENT system. Neuro: No deficits noted. Level of Consciousness is awake, alert, obeys commands, Oriented to person, place, time, situation, Appropriate for age. Historical: - Allergies: 07:41 anti-inflammatory (all); db 07:41 Ciprofloxacin; db 07:41 fluoroquinolones; db 07:41 Levaquin; db 07:41 Sulfa (Sulfonamide Antibiotics); db - Home Meds: 07:41 trimethoprim 100 mg oral tab [Active]; Omeprazole Oral [Active]; Metoprolol Tartrate db Oral [Active]; - PMHx: 07:41 Diverticulitis; db - PSHx: 07:41 carpal tunnal repair; Colectomy; Ligation of fallopian tube; db - Immunization history:: Adult Immunizations unknown, Client reports having NOT received the Covid vaccine. - Social history:: Smoking status: Patient denies any tobacco usage or history of. Screenin:30 Abuse screen: Denies threats or abuse. Denies injuries from another. Nutritional db screening: No deficits noted. Tuberculosis screening: No symptoms or risk factors identified. Fall Risk None identified. No fall in past 12 months (0 pts). IV access (20 points). Ambulatory Aid- None/Bed Rest/Nurse Assist (0 pts). Gait- Weak (10 pts.). Mental Status- Oriented to own ability (0 pts). Total Cullen Fall Scale indicates Low Risk Score (25-44 pts). Assessment: 07:27 Reassessment: Patient appears in no apparent distress at this time. Patient is alert, db oriented x 3, equal unlabored respirations, skin warm/dry/pink. General: Appears in no apparent distress. comfortable, Behavior is calm, cooperative, appropriate for age, quiet. Pain: Complains of pain in shoulder, neck, and hips. Neuro: No deficits noted. Cardiovascular: No deficits noted. Cardiovascular:. Respiratory: No deficits noted. Airway is patent. GI: No deficits noted. No signs and/or symptoms were reported involving the gastrointestinal system. : No deficits noted. No signs and/or symptoms were reported regarding the genitourinary system. Reports recent prolapse surgery 3 weeks ago. EENT: No deficits noted. No signs and/or symptoms were reported regarding the EENT system. Derm: No deficits noted. No signs and/or symptoms reported regarding the dermatologic system. Musculoskeletal: No deficits noted. No signs and/or symptoms reported regarding the musculoskeletal system. 08:30 Reassessment: Patient appears in no apparent distress at this time. No changes from db previously documented assessment. Patient and/or family updated on plan of care and expected duration. Pain level reassessed. Patient is alert, oriented x 3, equal unlabored respirations, skin warm/dry/pink. 09:30 Reassessment: Patient appears in no apparent distress at this time. Patient and/or db family updated on plan of care and expected duration. Pain level reassessed. Patient is alert, oriented x 3, equal unlabored respirations, skin warm/dry/pink. Patient states feeling better. Patient states symptoms have improved. 10:30 Reassessment: Patient appears in no apparent distress at this time. Patient and/or db family updated on plan of care and expected duration. Pain level reassessed. Patient is alert, oriented x 3, equal unlabored respirations, skin warm/dry/pink. Patient states feeling better. Patient states symptoms have improved. Vital Signs: 07:27 BP 135 / 61 LA Supine (auto/reg); Pulse 65; Resp 16; Temp 98.2(O); Pulse Ox 99% ; db Weight 88.45 kg; Height 5 ft. 3 in. (160.02 cm); Pain 5/10; 08:09 BP 121 / 77; Pulse 61; Resp 16; Pulse Ox 99% ; db 09:03 BP 115 / 55; Pulse 62; Resp 16; Pulse Ox 100% ; db 10:30 BP 113 / 76; Pulse 67; Resp 16; Temp 98; Pulse Ox 98% ; db 07:27 Body Mass Index 34.54 (88.45 kg, 160.02 cm) db ED Course: 07:34 Patient arrived in ED. db 07:34 Dionicio Christensen DO is Attending Physician. ms3 07:35 Janna Jin, RN is Primary Nurse. db 07:39 Triage completed. db 07:42 Arm band placed on right wrist. db 08:09 Shoulder Right (2 View) XRAY In Process Unspecified. EDMS 08:09 Hip Right 2 View XRAY In Process Unspecified. EDMS 08:25 Inserted saline lock: 20 gauge in left antecubital area, using aseptic technique. Blood db collected. 10:11 Gil Yung DO is Referral Physician. ms3 10:52 No provider procedures requiring assistance completed. IV discontinued, intact, db bleeding controlled, No redness/swelling at site. 10:53 Bed in low position. Call light in reach. Side rails up X 1. Pulse ox on. NIBP on. Warm db blanket given. Administered Medications: 08:18 Drug: Valium (diazepam) 5 mg Route: PO; db 09:08 Follow up: Response: No adverse reaction db 08:34 Drug: Ketorolac 10 mg Route: IVP; Site: left antecubital; db 09:09 Follow up: Response: No adverse reaction db 09:08 Drug: Zofran (Ondansetron) 4 mg Route: IVP; Site: left antecubital; db 10:35 Follow up: Response: No adverse reaction db 09:08 Drug: NS 0.9% 1000 ml Route: IV; Rate: 1000 ml; Site: left antecubital; db 10:34 Follow up: Response: No adverse reaction; IV Status: Completed infusion; IV Intake: db 1000ml Medication: 10:54 VIS not applicable for this client. db Intake: 10:34 IV: 1000ml; Total: 1000ml. db Outcome: 10:12 Discharge ordered by . ms3 10:52 Discharged to home ambulatory, with family. db 10:52 Condition: stable 10:52 Discharge instructions given to patient. 10:55 Patient left the ED. db Signatures: Dispatcher [employer] EDMS Dionicio Christensen DO DO ms3 Janna Jin, RN RN db
--- NOTE | 2022-01-22 10:12 | EDPHYS ---
Physician Documentation [facility] Name: Tracey Rodriguez Age: 66 yrs Sex: Female : 1955 Arrival Date: 01/22/2022 Time: 07:34 Bed 19 Private MD: ED Physician Dionicio Christensen HPI: 01/22 07:46 This 66 yrs old Female presents to ER via EMS with complaints of General Weakness. ms3 07:46 The patient or guardian complains of pain. right shoulder. Context: The problem was ms3 sustained at home, resulted from an unknown reason, The patient reports no decreased range of motion. The patient reports no obvious deformity. Onset: The symptoms/episode began/occurred 11 day(s) ago. Modifying factors: the symptoms are alleviated by nothing. The symptoms are aggravated by nothing. Associated signs and symptoms: Pertinent negatives: chest pain, neck pain. The patient or guardian reports pain. that occurred at home, sustained from unknown reason, There is no obvious deformity, The patient is able to self ambulate. The patient is able to bear their full body weight. The patient's discomfort radiates to the down right thigh. The complaints affect the right hip. Historical: - Allergies: 07:41 anti-inflammatory (all); db 07:41 Ciprofloxacin; db 07:41 fluoroquinolones; db 07:41 Levaquin; db 07:41 Sulfa (Sulfonamide Antibiotics); db - Home Meds: 07:41 trimethoprim 100 mg oral tab [Active]; Omeprazole Oral [Active]; Metoprolol Tartrate db Oral [Active]; - PMHx: 07:41 Diverticulitis; db - PSHx: 07:41 carpal tunnal repair; Colectomy; Ligation of fallopian tube; db - Immunization history:: Adult Immunizations unknown, Client reports having NOT received the Covid vaccine. - Social history:: Smoking status: Patient denies any tobacco usage or history of. ROS: 07:46 Constitutional: Negative for fever, and chills. Neck: Negative for injury, pain, and ms3 swelling, Cardiovascular: Negative for chest pain, and palpitations. Respiratory: Negative for shortness of breath, cough, wheezing, and pleuritic chest pain, Abdomen/GI: Negative for abdominal pain, nausea, vomiting, diarrhea, and constipation. 07:46 MS/extremity: Positive for pain, of the right shoulder and right hip. 07:46 All other systems are negative. Exam: 07:46 Constitutional: This is a well developed, well nourished patient who is awake, alert, ms3 and in no acute distress. Head/Face: Normocephalic, atraumatic. Neck: Trachea midline, no cervical lymphadenopathy. Supple, full range of motion without nuchal rigidity, or vertebral point tenderness. No Meningismus. Chest/axilla: Normal chest wall appearance and motion. Nontender with no deformity. Cardiovascular: Regular rate and rhythm with a normal S1 and S2. No gallops, murmurs, or rubs. Normal PMI, no JVD. No pulse deficits. Respiratory: Lungs have equal breath sounds bilaterally, clear to auscultation and percussion. No rales, rhonchi or wheezes noted. No increased work of breathing, no retractions or nasal flaring. Abdomen/GI: Soft, non-tender, with normal bowel sounds. No distension or tympany. No guarding or rebound. No evidence of tenderness throughout. Skin: Warm, dry with normal turgor. Normal color with no rashes, no lesions, and no evidence of cellulitis. 07:46 Musculoskeletal/extremity: Extremities: noted in the right shoulder: pain, tenderness, muscle spasm, ROM: no acute changes, Circulation is intact in all extremities. Sensation intact. Vital Signs: 07:27 BP 135 / 61 LA Supine (auto/reg); Pulse 65; Resp 16; Temp 98.2(O); Pulse Ox 99% ; db Weight 88.45 kg; Height 5 ft. 3 in. (160.02 cm); Pain 5/10; 08:09 BP 121 / 77; Pulse 61; Resp 16; Pulse Ox 99% ; db 09:03 BP 115 / 55; Pulse 62; Resp 16; Pulse Ox 100% ; db 10:30 BP 113 / 76; Pulse 67; Resp 16; Temp 98; Pulse Ox 98% ; db 07:27 Body Mass Index 34.54 (88.45 kg, 160.02 cm) db MDM: 07:45 Patient medically screened. ms3 07:46 Differential diagnosis: tendonitis, bursitis, arthritis, strain, muscle spasm. ms3 10:12 Data reviewed: vital signs, nurses notes, lab test result(s), and as a result, I will ms3 discharge patient. Data reviewed: radiologic studies. Counseling: I had a detailed discussion with the patient and/or guardian regarding: the historical points, exam findings, and any diagnostic results supporting the discharge/admit diagnosis, lab results, radiology results, the need for outpatient follow up, to return to the emergency department if symptoms worsen or persist or if there are any questions or concerns that arise at home. ED course: Discussed labs and x-ray results with patient. Patient states she is improved at this time, in no apparent distress, nontoxic, ambulatory in the emergency department. Patient to follow-up with her primary care physician in 2 to 3 days. Patient understands and agrees with plan. Return precautions discussed include worsening symptoms, weakness, fevers, or any other concerns.. 01/22 07:45 Order name: CBC with Diff; Complete Time: 08:53 ms3 01/22 07:45 Order name: BMP; Complete Time: 08:53 ms3 01/22 07:45 Order name: Shoulder Right (2 View) XRAY; Complete Time: 08:53 ms3 01/22 07:45 Order name: Hip Right 2 View XRAY; Complete Time: 08:53 ms3 Administered Medications: 08:18 Drug: Valium (diazepam) 5 mg Route: PO; db 09:08 Follow up: Response: No adverse reaction db 08:34 Drug: Ketorolac 10 mg Route: IVP; Site: left antecubital; db 09:09 Follow up: Response: No adverse reaction db 09:08 Drug: Zofran (Ondansetron) 4 mg Route: IVP; Site: left antecubital; db 10:35 Follow up: Response: No adverse reaction db 09:08 Drug: NS 0.9% 1000 ml Route: IV; Rate: 1000 ml; Site: left antecubital; db 10:34 Follow up: Response: No adverse reaction; IV Status: Completed infusion; IV Intake: db 1000ml Disposition Summary: 01/22/22 10:12 Discharge Ordered Location: Home ms3 Condition: Stable ms3 Diagnosis - Pain in right shoulder ms3 - Pain in right hip ms3 - Myalgia ms3 Followup: ms3 - With: Gil Yung, DO - When: 2 - 3 days - Reason: Recheck today's complaints Discharge Instructions: - Discharge Summary Sheet ms3 - Musculoskeletal Pain ms3 Forms: - Medication Reconciliation Form ms3 - Thank You Letter ms3 - Antibiotic Education ms3 - Prescription Opioid Use ms3 Signatures: Dispatcher [employer] Dionicio Duke, DO DO ms3 Janna Jin, RN RN db
[2022-01-22 11:06] VITALS: BP 115/55; O2SAT 100
== END 2022-01-22 10:55 | disposition home or self-care (01) ==
LOC: ER 07:29
DX: M25.511 Pain in right shoulder (principal); M25.551 Pain in right hip; M79.10 Myalgia, unspecified site; Z88.1 Allergy status to other antibiotic agents; Z88.2 Allergy status to sulfonamides; Z88.3 Allergy status to other anti-infective agents; Z88.5 Allergy status to narcotic agent; Z88.8 Allergy status to other drugs, medicaments and biological substances; Z91.048 Other nonmedicinal substance allergy status
CPT/HCPCS: 96361; 85025; 80048; 36415; 73502; 73030; 96375; 96374; 99284; J7030; J2405

== ENCOUNTER 2022-02-19 07:09 | Emergency (ER) | payer OTHER ==
--- OUTSIDE RECORDS SUMMARY | 2022-02-19 07:18 | XMS REPORT | Continuity of Care Document ---
:1955 Author Organization [facility] t Address [address] [place] [address] Care Team Providers Name Role Phone Silvio Babin MD, Shiela Primary Care Physician [phone] LUCIEN SHANNON Attending Clinician Unavailable JOHN_Newton Attending Clinician Unavailable Emily Vazquez MD Attending Clinician [phone] Elvia Arauz Attending Clinician Unavailable Willy Lopez Attending Clinician [phone] CHIVO Attending Clinician Unavailable Emily Longoria Attending Clinician [phone] MATTHEW NAGY Attending Clinician Unavailable Kaitlin Block Attending Clinician [phone] LUCIEN SHANNON Attending Clinician Unavailable JONATHAN Attending Clinician Unavailable GISEL Attending Clinician Unavailable Provider , Not In System Attending Clinician Unavailable Ginna Lord MA Attending Clinician Unavailable Provider , Not In System Attending Clinician Unavailable Roula Finn Attending Clinician [phone] SHIELA RASMUSSEN Attending Clinician Unavailable NICHELLE ALANIS Attending Clinician Unavailable JOHN_Newton Admitting Clinician Unavailable Elvia Arauz Admitting Clinician Unavailable UMAIR_Wang Admitting Clinician Unavailable SALLYCHERYL Admitting Clinician Unavailable GISEL Admitting Clinician Unavailable Payers Payer Name Policy Type Policy Number Effective Date Expiration Date S giselle AETNA CHOICE POS [id number] 2002 2002 II 00:00:00 00:00:00 [place]IC[place]: [id number] 2021 [employer] 00:00:00 AETNA (INDEMNITY) [id number] 2002 00:00:00 MEDICARE A-[place]: [id number] 2021 [employer] 00:00:00 - RHC - FQHC MEDICARE PART A [id number] 2021 AND B 00:00:00 AETNA (POS) [id number] 2020 00:00:00 Problems Condition Condition Condition Status Onset Resolution Last Treating Co mments Source Name Details Category Date Date Treatment Clinician Date Contact Contact Problem Active [place] dermatitis Dermatitis 8-12 [facility] 00:00: ty 00 [facility] Pruritic Pruritic Problem Active [facility] rash Rash 8-12 [facility] 00:00: ty 00 [facility] Ganglion Ganglion Problem Active [facility] cyst of Cyst of 812 [facility] left hand Left Hand 00:00: ty [facility] Clin[facility] Depressive Depressive Problem Active [facility] disorder Disorder 10-21 [facility] 00:00: ty 00 [facility] Conjunctiv Conjunctiv Problem Active [facility] itis itis 7 [facility] 00:00: ty 00 [facility] Clin[facility] Acute Acute Problem Active [place] sinusitis Sinusitis 7- Comm uni 00:00: ty 00 [facility] Clin[facility] Urinary Urinary Problem Active [place] tract Tract 7- [facility] infectious Infectious 00:00: ty disease Disease 00 Hospita Clinics Diverticul Diverticul Problem Active S [facility] [...] SV LEG WEEKNESS 2017-03 HC A xacin 0 [place] [facility] levoflox [...] l s to drug NSAIDS Allergy Active [place] (NON-DRAGAN to Communi ROIDAL substanc ty ANTI-INF e Hospita LAMMATOR l Y DRUG) Clinics QUINOLON Allergy Active [facility] ES to Communi substanc ty e Hospita l Clinics Family History Family Member Diagnosis Comments Start Date Stop Date Source Natural father Heart disease [facility] Natural mother Cancer [facility] Social History Social Habit Start Date Stop Date Quantity Comments Source Alcohol intake 2021-08-21 2021-08-21 [facility]:00 non-drinker of Hospital alcohol (finding) Tobacco use and 2017-06-05 2017-06-05 Smokeless tobacco [facility] 00:[facility]:00 non-user Hospital Sex Ass[birth year] At [birth year] [facility] Smoking Status Start Date Stop Date Source Never smoked tobacco [facility] Medications Ordered Filled Start Stop Current Ordering Indication Dosage Frequency Signature Comments Components Source Medication Medication Date Date Medication? Clinician (SIG) Name Name Kenalog 40 Kenalog 40 No Q1D Kenalog 40 [place] mg/mL mg/mL 8-12 mg/mL [facility] suspension suspension [...] per tablet day for 7 days. amoxicillin No 1{tbl} Q.5D Take 1 M ethodi -pot 6-15 06-[address] clavulanate 00:00: 04:59 mouth 2 [facility] (AUGMENTIN) 00 :00 (two) l 875-125 mg times a per tablet day for 7 days. amoxicillin No 1{tbl} Q.5D Take 1 M ethodi -pot 6-15 06-[address] clavulanate 00:00: 04:59 mouth 2 [facility] (AUGMENTIN) 00 :00 (two) l 875-125 mg times a per tablet day for 7 days. amoxicillin No 1{tbl} Q.5D Take 1 M ethodi -pot 6-15 06-[address] clavulanate 00:00: 04:59 mouth 2 [facility] (AUGMENTIN) 00 :00 (two) l 875-125 mg times a per tablet day for 7 days. amoxicillin 2021- No 1{tbl} Q.5D Take 1 M ethodi -pot 6-15 09-[address] clavulanate 00:00: 04:59 mouth 2 [facility] (AUGMENTIN) 00 :00 (two) l 875-125 mg times a per tablet day for 7 days. estradioL 2022- No 1g Q.5W Insert 1 g M ethodi (ESTRACE) 08-22-[address] 0.01 % (0.1 00:00: 04:59 vagina 2 [facility] mg/gram) 00 :00 (two) l vaginal times a cream week. Use nightly for the first 2 weeks estradioL 2022- No 1g Q.5W Insert 1 g M ethodi (ESTRACE) 08-22-[address] 0.01 % (0.1 00:00: 04:59 vagina 2 [facility] mg/gram) 00 :00 (two) l vaginal times a cream week. Use nightly for the first 2 weeks estradioL 2022- No 1g Q.5W Insert 1 g M ethodi (ESTRACE) 08-22-[address] 0.01 % (0.1 00:00: 04:59 vagina 2 [facility] mg/gram) 00 :00 (two) l vaginal times a cream week. Use nightly for the first 2 weeks estradioL 2022- No 1g Q.5W Insert 1 g M ethodi (ESTRACE) 08-22-[address] 0.01 % (0.1 00:00: 04:59 vagina 2 [facility] mg/gram) 00 :00 (two) l vaginal times a cream week. Use nightly for the first 2 weeks estradioL 2022- No 1g Q.5W Insert 1 g M ethodi (ESTRACE) 08-22-[address] 0.01 % (0.1 00:00: 04:59 vagina 2 [facility] mg/gram) 00 :00 (two) l vaginal times a cream week. Use nightly for the first 2 weeks oxybutynin 2021- No 5mg QD Take 5 mg M ethodi XL 08-09 05-[address] (DITROPAN-X 00:00: 00:00 daily. [facility] L) 5 MG 24 00 :00 l hr tablet oxybutynin 2021- No 5mg QD Take 5 mg M ethodi XL 08-09 05-[address] (DITROPAN-X 00:00: 00:00 daily. [facility] L) 5 MG 24 00 :00 l hr tablet oxybutynin 2021- No 5mg QD Take 5 mg M ethodi XL 08-09 05-[address] (DITROPAN-X 00:00: 00:00 daily. [facility] L) 5 MG 24 00 :00 l hr tablet oxybutynin 2021- No 5mg QD Take 5 mg M ethodi XL 08-[address] (DITROPAN-X 00:00: 00:00 daily. [facility] L) 5 MG 24 00 :00 l hr tablet oxybutynin 2021- No 5mg QD Take 5 mg M ethodi XL 08-[address] (DITROPAN-X 00:00: 00:00 daily. [facility] L) 5 MG 24 00 :00 l hr tablet dexamethaso dexamethaso No dexamethas [place] ne sodium ne sodium 03 one sodium [facility] phosphate phosphate 15:10: phosphate ty 10 mg/mL 10 mg/mL 00 10 mg/mL [facility] injection injection injection l solutionTak solutionTak solutionTa Clinics e 10 mg by e 10 mg by ke 10 mg injection injection by route. route. injection route. peg peg No peg [place] 3350-electr 3350-electr 3-03 3350-elect Communi olytes 236 olytes 236 00:00: rolytes ty gram-22.74 gram-22.74 00 236 [facility] gram-6.74 gram-6.74 gram-22.74 l gram-5.86 gram-5.86 gram-6.74 Clinics gram gram gram-5.86 solution solution gram MIX AND MIX AND solution DRINK DRINK MIX AND DIRECTED DIRECTED DRINK DIRECTED lidocaine lidocaine 2020-03 No Q1D lidocaine [place] (PF) 10 (PF) 10 0-18 (PF) 10 [...] Kenalog 40 2020-03 No Q1D Kenalog 40 [place] mg/mL mg/mL 0-18 mg/mL [facility] suspension suspension 17:02: suspension ty for for 19 for Hospita injectionTa injectionTa injectionT l ke 0.5 mL ke 0.5 mL tatianna 0.5 mL Clinics every day every day every day by by by injection injection injection route for 1 route for 1 route for day. day. 1 day. fluticasone 2020-0 Yes 50ug QD 1 spray Met [facility] propionate 4-27 ([address] (FLONASE) 00:00: total) by [facility] 50 00 Each Nare l mcg/actuati route on nasal daily. spray fluticasone 2020-0 Yes 50ug QD 1 spray [facility] propionate 4-27 ([address] (FLONASE) 00:00: total) by [facility] 50 00 Each Nare l mcg/actuati route on nasal daily. spray fluticasone 1-0 Yes 50ug QD 1 spray Met [facility] propionate 4-27 ([address] (FLONASE) 00:00: total) by [facility] 50 00 Each Nare l mcg/actuati route on nasal daily. spray fluticasone 2020-0 Yes 50ug QD 1 spray Met hodi [...] spray acyclovir 5 acyclovir 5 No acyclovir [place] % topical % topical 5 % Commu ni ointment ointment topical ty APPLY TO APPLY TO ointment [facility] THE THE APPLY TO l AFFECTED AFFECTED THE Clinics AREA EVERY AREA EVERY AFFECTED 2 HOURS 2 HOURS AREA EVERY DURING DURING 2 HOURS AWAKE HOURS AWAKE HOURS DURING FOR 4 DAYS FOR 4 DAYS AWAKE HOURS FOR 4 DAYS amoxicillin amoxicillin No amoxicilli [place] 500 500 n 500 Communi mg-potassiu mg-potassiu mg-potassi ty m m [facility] clav[facility] clavulanate clavulanat l 125 mg 125 [...] DIRECTED Clinics TODAY cephalexin cephalexin No cephalexin [facility] 500 mg 500 mg 500 mg [facility] capsule capsule capsule ty TAKE 1 TAKE 1 TAKE 1 Hospita CAPSULE BY CAPSULE BY CAPSULE BY l MOUTH TWICE MOUTH TWICE MOUTH Clinics DAILY DAILY TWICE DAILY estradiol estradiol No estradiol [place] 0.01% (0.1 0.01% (0.1 0.01% (0.1 [facility] mg/gram) mg/gram) mg/gram) ty vaginal vaginal vaginal Hospit a cream cream cream l INSERT 1 INSERT 1 INSERT 1 Cli nics GRAM INTO GRAM INTO GRAM INTO VAGINA VAGINA VAGINA TWICE A TWICE A TWICE A WEEK AT WEEK AT WEEK AT NIGHT. NIGHT. NIGHT. fluconazole fluconazole No fluconazol [facility] 150 mg 150 mg e 150 mg Communi tablet tablet tablet ty Hospita l Clinics hydroxyzine hydroxyzine No hydroxyzin [place] HCl 25 mg HCl 25 mg e [...] Kenalog 40 No 60mg Q1D Kenalog 40 [place] mg/mL mg/mL mg/mL [facility] suspension suspension suspension ty for for for Hospita injection injection injection l Take 60 mg Take 60 mg Take 60 mg Clinics every day every day every day by by by injection injection injection route. route. route. metoprolol metoprolol No metoprolol [place] succinate succinate succinate Commun[facility] ER 25 mg ER 25 mg ER 25 mg ty tablet,exte tablet,exte tablet,ext Hospita nded nded ended l release 24 release 24 release 24 Clinics hr TAKE 1 hr TAKE 1 hr TAKE 1 TABLET BY TABLET BY TABLET BY MOUTH EVERY MOUTH EVERY MOUTH DAY DAY EVERY DAY metronidazo metronidazo No metronidaz [place] le 500 mg le 500 mg ole 500 mg Communi tablet TAKE tablet TAKE tablet ty 1 TABLET BY 1 TABLET BY TAKE 1 Hospita MOUTH EVERY MOUTH EVERY TABLET BY l 8 HOURS FOR 8 HOURS FOR MOUTH Clinics 7 DAYS 7 DAYS EVERY 8 HOURS FOR 7 DAYS omeprazole omeprazole No omeprazole [facility] 20 mg 20 mg 20 mg [facility] capsule,del capsule,del capsule,de ty ayed ayed layed Hospita release release release l TAKE 1 TAKE 1 TAKE 1 Clinics CAPSULE BY CAPSULE BY CAPSULE BY MOUTH DAILY MOUTH DAILY MOUTH DAILY ondansetron ondansetron No ondansetro [facility] 4 mg 4 mg n 4 mg [...] 6 DAYS NEEDED paroxetine paroxetine No paroxetine [facility] ER 25 mg ER 25 mg ER 25 mg Com ricci tablet,exte tablet,exte tablet,ext ty nded nded ended Hospita release 24 release 24 release 24 l hr TAKE 1 hr TAKE 1 hr TAKE 1 Clinics TABLET BY TABLET BY TABLET BY MOUTH EVERY MOUTH EVERY MOUTH DAY DAY EVERY DAY tobramycin tobramycin No tobramycin [place] 0.3 0.3 0.3 Communi %-dexametha %-dexametha %-dexameth [...] FOR 5 DAYS triamcinolo triamcinolo No triamcinol [place] ne ne one [facility]i acetonide acetonide acetonide [...] FOR 7 DAYS trimethopri trimethopri No trimethopr [facility] m 100 mg m 100 mg im 100 mg [facility] tablet TAKE tablet TAKE tablet ty 1 TABLET BY 1 TABLET BY TAKE 1 Hospita MOUTH EVERY MOUTH EVERY TABLET BY l DAY DAY MOUTH Clinics EVERY DAY valacyclovi valacyclovi No valacyclov [place] r 1 gram r 1 gram ir 1 gram [facility] tablet TAKE tablet TAKE tablet ty 1 TABLET BY 1 TABLET BY TAKE 1 Hospita MOUTH TWICE MOUTH TWICE TABLET BY l DAILY prn DAILY prn MOUTH Clin ics TWICE DAILY prn amoxicillin amoxicillin No amoxicilli [place] [phone] n 875 Communi mg-potassiu mg-potassiu mg-potassi ty m m um Hospita clavulanate clavulanate clavulanat l 125 mg 125 mg e 125 mg Clinics tablet tablet tablet Flagyl 500 Flagyl 500 No 1 Q8H Flagyl 500 [facility] mg tablet mg tablet mg tablet Communi Take 1 Take 1 Take 1 ty tablet tablet tablet Hospita every 8 every 8 every 8 l hours by hours by hours by Cli nics oral route. oral route. oral route. prednisone prednisone No 1 BID prednisone [place] 20 mg 20 mg 20 mg Communi tablet Take tablet Take tablet ty 1 tablet 1 tablet Take 1 Hospi ta twice a day twice a day tablet l by oral by oral twice a Clinic s route for 5 route for 5 day by days. days. oral route for 5 days. Valtrex 1 Valtrex 1 No 1 TID Valtrex 1 [place] gram tablet gram tablet gram [facility] Take 1 Take 1 tablet ty tablet 3 tablet 3 Take 1 Hospi ta times a day times a day tablet 3 l by oral by oral times a Clinic s route for 7 route for 7 day by days. days. oral route for 7 days. Vistaril 25 Vistaril 25 No 1capsul Q7H Vistaril [facility] mg capsule mg capsule e(s) 25 mg [facility] Take 1 Take 1 capsule ty capsule capsule Take 1 Hospita every 6-8 every 6-8 capsule l hours by hours by every 6-8 Cl inics oral route oral route hours by as needed. as needed. oral route as needed. dicyclomine dicyclomine No 1 TID dicyclomin [facility] 20 mg 20 mg e 20 mg Communi tablet Take tablet Take tablet ty 1 tablet 3 1 tablet 3 Take 1 H ospita times a day times a day tablet 3 l by oral by oral times a Clinic s route as route as day by needed. needed. oral route as needed. hyoscyamine hyoscyamine No hyoscyamin [facility] 0.125 mg 0.125 mg e 0.125 mg C om[facility]i sublingual sublingual sublingual ty tablet tablet tablet Hospita l Clinics ivermectin ivermectin No 2 BID ivermectin [place] 3 mg tablet 3 mg tablet 3 mg [facility] Take 2 Take 2 tablet ty tablets tablets Take 2 Hospita twice a day twice a day tablets l by oral by oral twice a Clinic s route. route. day by oral route. Denavir 1 % Denavir 1 % No Denavir 1 [facility] topical topical % topical Comm uni cream APPLY cream APPLY cream ty TO THE TO THE APPLY TO Hospita AFFECTED AFFECTED THE l AREA(S) BY AREA(S) BY AFFECTED Clinics TOPICAL TOPICAL AREA(S) BY ROUTE EVERY ROUTE EVERY TOPICAL 2 HOURS 2 HOURS ROUTE DURING DURING EVERY 2 WAKING WAKING HOURS HOURS FOR 4 HOURS FOR 4 DURING DAYS WAKING HOURS FOR 4 DAYS Pataday Pataday No Pataday [facility] Once Daily Once Daily Once Daily Communi [...] DAILY valacyclovi valacyclovi No 1 TID valacyclov [facility] r 1 gram r 1 gram ir [...] % Denavir 1 % No Denavir 1 [place] topical topical % topical [facility] cream APPLY cream APPLY cream ty TO THE TO THE APPLY TO Hospita AFFECTED AFFECTED THE l AREA(S) BY AREA(S) BY AFFECTED Clinics TOPICAL TOPICAL AREA(S) BY ROUTE EVERY ROUTE EVERY TOPICAL 2 HOURS 2 HOURS ROUTE DURING DURING EVERY 2 WAKING WAKING HOURS HOURS FOR 4 HOURS FOR 4 DURING DAYS DAYS WAKING HOURS FOR 4 DAYS Pataday Pataday No Pataday [facility] Once Daily Once Daily Once Daily Communi [...] DAILY valacyclovi valacyclovi No 1 TID valacyclov [place] r 1 gram r 1 gram ir [...] days. acyclovir 5 acyclovir 5 No acyclovir [place] % topical % topical 5 % Commu [...] DAYS cefdinir cefdinir No 1capsul Q12H cefdinir [facility] 300 mg 300 mg e(s) 300 mg Commun[facility] capsule capsule capsule ty Take 1 Take 1 Take 1 Hospita capsule capsule capsule l every 12 every 12 every 12 Cli nics hours by hours by hours by oral route. oral route. oral route. Denavir 1 % Denavir 1 % No Denavir 1 [place] topical topical % topical Comm [facility] cream APPLY cream APPLY cream ty TO THE TO THE APPLY TO Hospita AFFECTED AFFECTED THE l AREA(S) BY AREA(S) BY AFFECTED Clinics TOPICAL TOPICAL AREA(S) BY ROUTE EVERY ROUTE EVERY TOPICAL 2 HOURS 2 HOURS ROUTE DURING DURING EVERY 2 WAKING WAKING HOURS HOURS FOR 4 HOURS FOR 4 DURING DAYS DAYS WAKING HOURS FOR 4 DAYS hyoscyamine hyoscyamine No hyoscyamin [facility] 0.125 mg 0.125 mg e 0.125 mg [facility] disintegrat disintegrat disintegra ty ing tablet ing tablet ting [facility] tablet l Clinics Pataday Pataday No Pataday [facility] Once Daily Once Daily Once Daily [facility] Relief 0.2 Relief 0.2 Relief 0.2 ty % eye drops % eye drops % eye Hospita INSTILL 1 INSTILL 1 drops l DROP INTO DROP INTO INSTILL 1 Clinics AFFECTED AFFECTED DROP INTO EYE(S) BY EYE(S) BY AFFECTED OPHTHALMIC OPHTHALMIC EYE(S) BY ROUTE ONCE ROUTE ONCE OPHTHALMIC DAILY DAILY ROUTE ONCE DAILY sulfamethox sulfamethox No sulfametho [place] azole 800 azole 800 xazole 800 Communi mg-trimetho mg-trimetho mg-trimeth ty prim 160 mg prim 160 mg oprim 160 Hospita tablet tablet mg tablet l Clinics valacyclovi valacyclovi No 1 TID valacyclov [facility] r 1 gram r 1 gram ir [...] days. acyclovir 5 acyclovir 5 No acyclovir [place] % topical % topical 5 % Commu ni ointment ointment topical ty APPLY TO APPLY TO ointment [facility] THE THE APPLY TO l AFFECTED AFFECTED THE Clinics AREA EVERY AREA EVERY AFFECTED 2 HOURS 2 HOURS AREA EVERY DURING DURING 2 HOURS AWAKE HOURS AWAKE HOURS DURING FOR 4 DAYS FOR 4 DAYS AWAKE HOURS FOR 4 DAYS carbamazepi carbamazepi No carbamazep [facility] ne ER 100 ne ER 100 ine ER 100 Communi mg mg mg ty tablet,exte tablet,exte tablet,ext Hospita nded nded ended l release,12 release,12 release,12 Clinics hr TAKE 1 hr TAKE 1 hr TAKE 1 TABLET BY TABLET BY TABLET BY MOUTH EVERY MOUTH EVERY MOUTH 12 HOURS 12 HOURS EVERY 12 HOURS hyoscyamine hyoscyamine No hyoscyamin [facility] 0.125 mg 0.125 mg e 0.125 mg [facility] disintegrat disintegrat disintegra ty ing tablet ing tablet ting [facility] tablet l [facility] valacyclovi valacyclovi No valacyclov [place] r 1 gram r 1 gram ir 1 gram [facility] tablet TAKE tablet TAKE tablet ty 1 TABLET BY 1 TABLET BY TAKE 1 Hospita MOUTH EVERY MOUTH EVERY TABLET BY l DAY FOR 30 DAY FOR 30 MOUTH Cl inics DAYS DAYS EVERY DAY FOR 30 DAYS acyclovir 5 acyclovir 5 No acyclovir [place] % topical % topical 5 % Commu [...] DAYS clonidine clonidine No 1 Q1D clonidine [place] HCl ER 0.1 HCl ER 0.1 HCl [...] evening. DripDrop DripDrop No 1packet Q1D DripDrop [facility] 305 mg-175 305 mg-175 (s) 305 mg-175 Communi mg-70 mg mg-70 mg mg-70 mg ty oral powder oral powder oral H [facility]spita packet Take packet Take powder l 1 packet 1 packet packet Clini cs every day every day Take 1 by oral by oral packet route as route as every day needed. needed. by oral route as needed. hyoscyamine hyoscyamine No hyoscyamin [facility] 0.125 mg 0.125 mg e 0.125 mg [facility] disintegrat disintegrat disintegra ty ing tablet ing tablet ting [facility] tablet l [facility] Kenalog 40 Kenalog 40 No .5mL Q1D Kenalog 40 [place] mg/mL mg/mL mg/mL [facility] suspension suspension suspension ty for for for Hospita injection injection injection l Take 0.5 mL Take 0.5 mL Take 0.5 Clinics every day every day mL every by by day by injection injection injection route for 1 route for 1 route for day. day. 1 day. lidocaine lidocaine No 2mL Q1D lidocaine [place] (PF) 10 (PF) 10 (PF) 10 Commun i mg/mL (1 %) mg/mL (1 %) mg/mL (1 ty injection injection %) Hospi ta solution solution injection l Take 2 mL Take 2 mL solution C linics every day every day Take 2 mL by by every day injection injection by route. route. injection route. pantoprazol pantoprazol No 1 Q1D pantoprazo [facility] e 40 mg e 40 mg le 40 mg Commu ni tablet,hodan tablet,hodan tablet,del ty yed release yed release ayed H [facility]spita Take 1 Take 1 release l tablet tablet Take 1 Clinics every day every day tablet by oral by oral every day route. route. by oral route. valacyclovi valacyclovi No valacyclov [facility] r 1 gram r 1 gram ir 1 gram [facility] tablet TAKE tablet TAKE tablet ty 1 TABLET BY 1 TABLET BY TAKE 1 Hospita MOUTH EVERY MOUTH EVERY TABLET BY l DAY FOR 30 DAY FOR 30 MOUTH Cl inics DAYS DAYS EVERY DAY FOR 30 DAYS Artificial Artificial No 1drop(s Q1D Artificial [place] Tears Tears ) Tears [facility]i (polyvinyl (polyvinyl (polyvinyl ty alcohol) alcohol) alcohol) [facility] 1.4 % eye 1.4 % eye 1.4 % eye l drops Apply drops Apply drops Clinics 1 drop 1 drop Apply 1 every day every day drop every by by day by ophthalmic ophthalmic ophthalmic route. route. route. azithromyci azithromyci No 1 Q1D azithromyc [facility] n 500 mg n 500 mg in 500 mg [facility] tablet Take tablet Take tablet ty 1 tablet 1 tablet Take 1 Hospi ta every day every day tablet l by oral by oral every day Clin ics route for 5 route for 5 by oral days. days. route for 5 days. DripDrop DripDrop No 1packet Q1D DripDrop [facility] 305 mg-175 305 mg-175 (s) 305 mg-175 Communi mg-70 mg mg-70 mg mg-70 mg ty oral powder oral powder oral H [facility] packet Take packet Take powder l 1 packet 1 packet packet Clini cs every day every day Take 1 by oral by oral packet route as route as every day needed. needed. by oral route as needed. hyoscyamine hyoscyamine No hyoscyamin [facility] 0.125 mg 0.125 mg e 0.125 mg [facility] disintegrat disintegrat disintegra ty ing tablet ing tablet ting [facility] tablet l Clinics pantoprazol pantoprazol No pantoprazo [facility] e 40 mg e 40 mg le 40 mg Commu ni tablet,hodan tablet,hodan tablet,del ty yed release yed release ayed H [facility]spita TAKE 1 TAKE 1 release l TABLET BY TABLET BY TAKE 1 Cli nics MOUTH EVERY MOUTH EVERY TABLET BY DAY DAY MOUTH EVERY DAY acetylcyste acetylcyste No 1capsul BID acetylcyst [facility] ine 600 mg ine 600 mg e(s) eine 600 Communi capsule capsule mg capsule ty Take 1 Take 1 Take 1 Hospita capsule capsule capsule l twice a day twice a day twice a Clinics by oral by oral day by route. route. oral route. Artificial Artificial No 1drop(s Q1D Artificial [place] Tears Tears ) Tears [facility] (polyvinyl (polyvinyl (polyvinyl ty alcohol) alcohol) alcohol) [facility] 1.4 % eye 1.4 % eye 1.4 % eye l drops Apply drops Apply drops Clinics 1 drop 1 drop Apply 1 every day every day drop every by by day by ophthalmic ophthalmic ophthalmic route. route. route. Effexor XR Effexor XR No 1capsul Q1D Effexor XR [facility] 75 mg 75 mg e(s) 75 mg Communi capsule,ext capsule,ext capsule,ex ty ended ended tended Hospita release release release l Take 1 Take 1 Take 1 Clinics capsule capsule capsule every day every day every day by oral by oral by oral route for route for route for 90 days. 90 days. 90 days. hyoscyamine hyoscyamine No hyoscyamin [facility] 0.125 mg 0.125 mg e 0.125 mg [facility] disintegrat disintegrat disintegra ty ing tablet ing tablet ting [facility] tablet l Clinics pantoprazol pantoprazol No pantoprazo [facility] e 40 mg e 40 mg le 40 mg Commu ni tablet,hodan tablet,hodan tablet,del ty yed release yed release ayed H [facility]spita TAKE 1 TAKE 1 release l TABLET BY TABLET BY TAKE 1 Cli nics MOUTH EVERY MOUTH EVERY TABLET BY DAY DAY MOUTH EVERY DAY acetylcyste acetylcyste No 1capsul BID acetylcyst [facility] ine 600 mg ine 600 mg e(s) eine 600 Communi capsule capsule mg capsule ty Take 1 Take 1 Take 1 Hospita capsule capsule capsule l twice a day twice a day twice a Clinics by oral by oral day by route. route. oral route. Artificial Artificial No 1drop(s Q1D Artificial [place] Tears Tears ) Tears [facility] (polyvinyl (polyvinyl (polyvinyl ty alcohol) alcohol) alcohol) [facility] 1.4 % eye 1.4 % eye 1.4 % eye l drops Apply drops Apply drops Clinics 1 drop 1 drop Apply 1 every day every day drop every by by day by ophthalmic ophthalmic ophthalmic route. route. route. Effexor XR Effexor XR No 1capsul Q1D Effexor XR [facility] 75 mg 75 mg e(s) 75 mg [facility] capsule,ext capsule,ext capsule,ex ty ended ended tended Hospita release release release l Take 1 Take 1 Take 1 Clinics capsule capsule capsule every day every day every day by oral by oral by oral route for route for route for 90 days. 90 days. 90 days. hyoscyamine hyoscyamine No hyoscyamin [facility] 0.125 mg 0.125 mg e 0.125 mg [facility] disintegrat disintegrat disintegra ty ing tablet ing tablet ting [facility] tablet l Clinics pantoprazol pantoprazol No pantoprazo [facility] e 40 mg e 40 mg le 40 mg Commu ni tablet,hodan tablet,hodan tablet,del ty yed release yed release ayed H [facility]spita TAKE 1 TAKE 1 release l TABLET BY TABLET BY TAKE 1 Cli nics MOUTH EVERY MOUTH EVERY TABLET BY DAY DAY MOUTH EVERY DAY acyclovir acyclovir No 1 Q1D acyclovir [facility] 400 mg 400 mg 400 mg Communi tablet Take tablet Take tablet ty 1 tablet 1 tablet Take 1 Hospi ta every day every day tablet l by oral by oral every day Clin ics route for route for by oral 30 days. 30 days. route for 30 days. amoxicillin amoxicillin No amoxicilli [facility] [id number] n 875 [facility] mg-potassiu mg-potassiu mg-potassi ty m [facility] clav[facility]ate clavulanate clavulanat l 125 mg 125 mg e 125 mg Clinics tablet TAKE tablet TAKE tablet 1 TABLET BY 1 TABLET BY TAKE 1 MOUTH EVERY MOUTH EVERY TABLET BY 12 HOURS 12 HOURS MOUTH EVERY 12 HOURS metronidazo metronidazo No metronidaz [facility] le 500 mg le 500 mg ole 500 mg [facility] tablet TAKE tablet TAKE tablet ty 1 TABLET BY 1 TABLET BY TAKE 1 Hospita MOUTH EVERY MOUTH EVERY TABLET BY l 8 HOURS 8 HOURS MOUTH Clinics EVERY 8 HOURS ondansetron ondansetron No ondansetro [facility] 4 mg 4 mg n 4 mg [facility] disintegrat disintegrat disintegra ty ing tablet ing tablet ting [facility] tablet l [facility] Xifaxan 550 Xifaxan 550 No 1 BID Xifaxan [facility] mg tablet mg tablet 550 mg Com ricci Take 1 Take 1 tablet ty tablet tablet Take 1 Hospita twice a day twice a day tablet l by oral by oral twice a Clinic s route. route. day by oral route. acyclovir acyclovir No acyclovir [facility] 400 mg 400 mg 400 mg [facility] [...] by oral route. metronidazo metronidazo No metronidaz [facility] le 500 mg le 500 mg ole 500 mg [facility] tablet TAKE tablet TAKE tablet ty 1 TABLET BY 1 TABLET BY TAKE 1 Hospita MOUTH EVERY MOUTH EVERY TABLET BY l 8 HOURS 8 HOURS MOUTH Clinics EVERY 8 HOURS ondansetron ondansetron No ondansetro [facility] 4 mg 4 mg n 4 mg [facility] disintegrat disintegrat disintegra ty ing tablet ing tablet ting [facility] tablet l [facility] pantoprazol pantoprazol No pantoprazo [facility] e 40 mg e 40 mg le 40 mg Commu ni tablet,hodan tablet,hodan tablet,del ty yed release yed release ayed H [facility]spita release l [facility] peg peg No peg [facility] 3350-electr 3350-electr 3350-elect [facility] olytes 236 olytes 236 rolytes ty gram-22.74 gram-22.74 236 [facility] gram-6.74 gram-6.74 gram-22.74 l gram-5.86 gram-5.86 gram-6.74 Clinics gram gram gram-5.86 solution solution gram MIX AND MIX AND solution DRINK DRINK MIX AND DIRECTED DIRECTED DRINK DIRECTED sucralfate sucralfate No 1 QID sucralfate [facility] 1 gram 1 gram 1 gram [facility] tablet Take tablet Take tablet ty 1 tablet 4 1 tablet 4 Take 1 H [facility]spita times a day times a day tablet 4 l by oral by oral times a Clinic s route. route. day by oral route. venlafaxine venlafaxine No venlafaxin [facility] ER 75 mg ER 75 mg e ER 75 mg [facility] capsule,ext capsule,ext capsule,ex ty ended ended tended Hospita release 24 release 24 release 24 l hr hr hr Clinics Xifaxan 550 Xifaxan 550 No Xifaxan [facility] mg tablet mg tablet 550 mg Com ricci Take 1 Take 1 tablet ty tablet tablet Take 1 Hospita twice a day twice a day tablet l by oral by oral twice a Clinic s route. route. day by oral route. dexamethaso dexamethaso No 10mg dexamethas [facility] ne sodium ne sodium one sodium [facility] phosphate phosphate phosphate ty 10 mg/mL 10 mg/mL 10 mg/mL [facility] injection injection injection l solution solution solution Cli nics Take 10 mg Take 10 mg Take 10 mg by by by injection injection injection route. route. route. dicyclomine dicyclomine No 1 TID dicyclomin [facility] 20 mg 20 mg e 20 mg [facility] tablet Take tablet Take tablet ty 1 tablet 3 1 tablet 3 Take 1 H [facility]sp[facility] times a day times a day tablet 3 l by oral by oral times a Clinic s route as route as day by needed. needed. oral route as needed. gabapentin gabapentin No 1capsul BID gabapentin [facility] 300 mg 300 mg e(s) 300 mg [facility] capsule capsule capsule ty Take 1 Take 1 Take 1 Hospita capsule capsule capsule l twice a day twice a day twice a Clinics by oral by oral day by route. route. oral route. montelukast montelukast No 1 Q1D montelukas [facility] 10 mg 10 mg t 10 mg [facility] tablet Take tablet Take tablet ty 1 tablet 1 tablet Take 1 Hospi ta every day every day tablet l by oral by oral every day Clin ics route. route. by oral route. acyclovir 5 acyclovir 5 No acyclovir [facility] % topical % topical 5 % Commu [...] Bactrim DS No 1 Q12H Bactrim DS [facility] 800 mg-160 800 mg-160 800 mg-160 [facility] mg tablet mg tablet mg tablet ty Take 1 Take 1 Take 1 Hospita tablet tablet tablet l every 12 every 12 every 12 Cli nics hours by hours by hours by oral route oral route oral route for 10 for 10 for 10 days. days. days. diclofenac diclofenac No diclofenac [facility] 1 % topical 1 % topical 1 [...] route. valacyclovi valacyclovi No 1 BID valacyclov [facility] r 1 gram r 1 gram ir 1 gram [facility] tablet Take tablet Take tablet ty 1 tablet 1 tablet Take 1 Hospi ta twice a day twice a day tablet l by oral by oral twice a Clinic s route. route. day by oral route. acyclovir 5 acyclovir 5 No acyclovir [facility] % topical % topical 5 % Commu ni ointment ointment topical ty APPLY TO APPLY TO ointment [facility] THE THE APPLY TO l AFFECTED AFFECTED THE Clinics AREA EVERY AREA EVERY AFFECTED 2 HOURS 2 HOURS AREA EVERY DURING DURING 2 HOURS AWAKE HOURS AWAKE HOURS DURING FOR 4 DAYS FOR 4 DAYS AWAKE HOURS FOR 4 DAYS diclofenac diclofenac No diclofenac [facility] 1 % topical 1 % topical 1 % [facility] gel APPLY 2 gel APPLY 2 topical ty GRAMS GRAMS gel APPLY Hospita TOPICALLY TOPICALLY 2 GRAMS l TO THE TO THE TOPICALLY Clinic s AFFECTED AFFECTED TO THE AREA FOUR AREA FOUR AFFECTED TIMES DAILY TIMES DAILY AREA FOUR TIMES DAILY phenazopyri phenazopyri No phenazopyr [facility] dine 200 mg dine 200 mg idine 200 [facility] tablet TAKE tablet TAKE mg tablet ty 1 TABLET BY 1 TABLET BY TAKE 1 Hospita MOUTH EVERY MOUTH EVERY TABLET BY l 8 HOURS 8 HOURS MOUTH Clinics EVERY 8 HOURS sulfamethox sulfamethox No sulfametho [facility] azole 800 azole 800 xazole 800 [facility] mg-trimetho mg-trimetho mg-trimeth ty prim 160 mg prim 160 mg oprim 160 Hospita tablet TAKE tablet TAKE mg tablet l 1 TABLET BY 1 TABLET BY TAKE 1 Clinics MOUTH EVERY MOUTH EVERY TABLET BY 12 HOURS 12 HOURS MOUTH FOR 10 DAYS FOR 10 DAYS EVERY 12 HOURS FOR 10 DAYS valacyclovi valacyclovi No valacyclov [facility] r 1 gram r 1 gram ir 1 gram [facility] tablet TAKE tablet TAKE tablet ty 1 TABLET BY 1 TABLET BY TAKE 1 Hospita MOUTH TWICE MOUTH TWICE TABLET BY l DAILY DAILY MOUTH Clinics TWICE DAILY acyclovir 5 acyclovir 5 No acyclovir F[facility] % topical % topical 5 % Commu ni ointment ointment topical ty APPLY TO APPLY TO ointment [facility] THE THE APPLY TO l AFFECTED AFFECTED THE Clinics AREA EVERY AREA EVERY AFFECTED 2 HOURS 2 HOURS AREA EVERY DURING DURING 2 HOURS AWAKE HOURS AWAKE HOURS DURING FOR 4 DAYS FOR 4 DAYS AWAKE HOURS FOR 4 DAYS cefuroxime cefuroxime No cefuroxime [facility] axetil 500 axetil 500 axetil 500 [facility] mg tablet mg tablet mg tablet ty TAKE 1 TAKE 1 TAKE 1 Hospita TABLET BY TABLET BY TABLET BY l MOUTH EVERY MOUTH EVERY MOUTH Clinics 12 HOURS 12 HOURS EVERY 12 FOR 7 DAYS FOR 7 DAYS HOURS FOR 7 DAYS diclofenac diclofenac No diclofenac [facility] 1 % topical 1 % topical 1 % [facility] gel APPLY 2 gel APPLY 2 topical ty GRAMS GRAMS gel APPLY Hospita TOPICALLY TOPICALLY 2 GRAMS l TO THE TO THE TOPICALLY Clinic s AFFECTED AFFECTED TO THE AREA FOUR AREA FOUR AFFECTED TIMES DAILY TIMES DAILY AREA FOUR TIMES DAILY dicyclomine dicyclomine No dicyclomin [facility] 20 mg 20 mg e 20 mg [facility] tablet TAKE tablet TAKE tablet ty 1 TABLET BY 1 TABLET BY TAKE 1 Hospita MOUTH 4 MOUTH 4 TABLET BY l TIMES A DAY TIMES A DAY MOUTH 4 Clinics NEEDED NEEDED TIMES A DAY NEEDED phenazopyri phenazopyri No phenazopyr [facility] dine 200 mg dine 200 mg idine 200 [facility] tablet TAKE tablet TAKE mg tablet ty 1 TABLET BY 1 TABLET BY TAKE 1 Hospita MOUTH EVERY MOUTH EVERY TABLET BY l 8 HOURS FOR 8 HOURS FOR MOUTH Clinics 2 DAYS 2 DAYS EVERY 8 HOURS FOR 2 DAYS sulfamethox sulfamethox No sulfametho [facility] azole 800 azole 800 xazole 800 [facility] mg-trimetho mg-trimetho mg-trimeth ty prim 160 mg prim 160 mg oprim 160 Hospita tablet TAKE tablet TAKE mg tablet l 1 TABLET BY 1 TABLET BY TAKE 1 Clinics MOUTH EVERY MOUTH EVERY TABLET BY 12 HOURS 12 HOURS MOUTH FOR 10 DAYS FOR 10 DAYS EVERY 12 HOURS FOR 10 DAYS valacyclovi valacyclovi No valacyclov [facility] r 1 gram r 1 gram ir 1 gram [facility] tablet TAKE tablet TAKE tablet ty 1 TABLET BY 1 TABLET BY TAKE 1 Hospita MOUTH TWICE MOUTH TWICE TABLET BY l DAILY DAILY MOUTH Clinics TWICE DAILY acyclovir 5 acyclovir 5 No acyclovir F[facility] % topical % topical 5 % Commu ni ointment ointment topical ty APPLY TO APPLY TO ointment [facility] THE THE APPLY TO l AFFECTED AFFECTED THE Clinics AREA EVERY AREA EVERY AFFECTED 2 HOURS 2 HOURS AREA EVERY DURING DURING 2 HOURS AWAKE HOURS AWAKE HOURS DURING FOR 4 DAYS FOR 4 DAYS AWAKE HOURS FOR 4 DAYS amoxicillin amoxicillin No amoxicilli [facility] 500 500 n 500 [facility] mg-potassiu mg-potassiu [...] FOR 7 DAYS amoxicillin amoxicillin No amoxicilli [facility] 875 875 n 875 [facility] mg-potassiu mg-potassiu mg-potassi ty [facility] cl[facility] clavulanate clavulanat l 125 mg 125 mg e 125 mg Clinics tablet TAKE tablet TAKE tablet 1 TABLET BY 1 TABLET BY TAKE 1 MOUTH TWICE MOUTH TWICE TABLET BY DAILY FOR 7 DAILY FOR 7 MOUTH DAYS DAYS TWICE DAILY FOR 7 DAYS cefuroxime cefuroxime No cefuroxime [facility] axetil 500 axetil 500 axetil 500 [facility] mg tablet mg tablet mg tablet ty TAKE 1 TAKE 1 TAKE 1 Hospita TABLET BY TABLET BY TABLET BY l MOUTH EVERY MOUTH EVERY MOUTH Clinics 12 HOURS 12 HOURS EVERY 12 FOR 7 DAYS FOR 7 DAYS HOURS FOR 7 DAYS diclofenac diclofenac No diclofenac [facility] 1 % topical 1 % topical 1 % [facility] gel APPLY 2 gel APPLY 2 topical ty GRAMS GRAMS gel APPLY Hospita TOPICALLY TOPICALLY 2 GRAMS l TO THE TO THE TOPICALLY Clinic s AFFECTED AFFECTED TO THE AREA FOUR AREA FOUR AFFECTED TIMES DAILY TIMES DAILY AREA FOUR TIMES DAILY dicyclomine dicyclomine No dicyclomin [facility] 20 mg 20 mg e 20 mg [facility] tablet TAKE tablet TAKE tablet ty 1 TABLET BY 1 TABLET BY TAKE 1 Hospita MOUTH 4 MOUTH 4 TABLET BY l TIMES A DAY TIMES A DAY MOUTH 4 Clinics NEEDED NEEDED TIMES A DAY NEEDED estradiol estradiol No estradiol [facility] 0.01% (0.1 0.01% (0.1 0.01% (0.1 [facility] mg/gram) mg/gram) mg/gram) ty vaginal vaginal vaginal Hospit a cream cream cream l INSERT 1 INSERT 1 INSERT 1 Cli nics GRAM INTO GRAM INTO GRAM INTO VAGINA VAGINA VAGINA TWICE A TWICE A TWICE A WEEK AT WEEK AT WEEK AT NIGHT. NIGHT. NIGHT. fluconazole fluconazole No fluconazol [facility] 150 mg 150 mg e 150 mg [facility] tablet TAKE tablet TAKE tablet ty 1 TABLET BY 1 TABLET BY TAKE 1 Hospita MOUTH EVERY MOUTH EVERY TABLET BY l 72 HOURS 72 HOURS MOUTH Clinic s EVERY 72 HOURS metoprolol metoprolol No metoprolol [facility] succinate succinate succinate [facility] ER 25 mg ER 25 mg ER 25 mg ty tablet,exte tablet,exte tablet,ext Hospita nded nded ended l release 24 release 24 release 24 Clinics hr TAKE 1 hr TAKE 1 hr TAKE 1 TABLET BY TABLET BY TABLET BY MOUTH EVERY MOUTH EVERY MOUTH DAY DAY EVERY DAY nitrofurant nitrofurant No nitrofuran [facility] oin oin toin [facility] monohydrate monohydrate monohydrat ty /macrocryst /macrocryst e/macrocry Hospita als 100 mg als 100 mg stals 100 l capsule capsule mg capsule Cli nics oxybutynin oxybutynin No oxybutynin [facility] chloride ER chloride ER chloride [facility] 5 mg 5 mg ER 5 mg ty tablet,exte tablet,exte tablet,ext Hospita nded nded ended l release 24 release 24 release 24 Clinics hr TAKE 1 hr TAKE 1 hr TAKE 1 TABLET BY TABLET BY TABLET BY MOUTH EVERY MOUTH EVERY MOUTH DAY DAY EVERY DAY phenazopyri phenazopyri No phenazopyr [facility] dine 200 mg dine 200 mg idine 200 [facility] tablet TAKE tablet TAKE mg tablet ty 1 TABLET BY 1 TABLET BY TAKE 1 [facility]ospita MOUTH EVERY MOUTH EVERY TABLET BY l 8 HOURS FOR 8 HOURS FOR MOUTH Clinics 2 DAYS 2 DAYS EVERY 8 HOURS FOR 2 DAYS sulfamethox sulfamethox No sulfametho [facility] azole 800 azole 800 xazole 800 Commun[facility] [...] Suprax 400 No 1capsul Q1D Suprax 400 [facility] mg capsule mg capsule e(s) mg capsule [facility] Take 1 Take 1 Take 1 ty capsule capsule capsule Hospit a every day every day every day l by oral by oral by oral Clinic s route for 7 route for 7 route for days. days. 7 days. valacyclovi valacyclovi No valacyclov [facility] r 1 gram r 1 gram ir 1 gram [facility] tablet TAKE tablet TAKE tablet ty 1 TABLET BY [facility] M[facility] TWICE TABLET BY l DAILY DAILY MOUTH Clinics TWICE DAILY acyclovir 5 acyclovir 5 No acyclovir F[facility] % topical % topical 5 % Commu ni ointment ointment topical ty APPLY TO APPLY TO ointment [facility] THE THE APPLY TO l AFFECTED AFFECTED THE Clinics AREA EVERY AREA EVERY AFFECTED 2 HOURS 2 HOURS AREA EVERY DURING DURING 2 HOURS AWAKE HOURS AWAKE HOURS DURING FOR 4 DAYS FOR 4 DAYS AWAKE HOURS FOR 4 DAYS estradiol estradiol No estradiol [facility] 0.01% (0.1 0.01% (0.1 0.01% (0.1 [facility] mg/gram) mg/gram) mg/gram) ty vaginal vaginal vaginal Hospit a cream cream cream l INSERT 1 INSERT 1 INSERT 1 Cli nics GRAM INTO GRAM INTO GRAM INTO VAGINA VAGINA VAGINA TWICE A TWICE A TWICE A WEEK AT WEEK AT WEEK AT NIGHT. NIGHT. NIGHT. metoprolol metoprolol No metoprolol [facility] succinate succinate succinate [facility] ER 25 mg [...] CR 25 No 1 Q1D Paxil CR [facility] mg mg 25 mg [facility] tablet,exte tablet,exte tablet,ext ty nded nded ended Hospita release release release l Take 1 Take 1 Take 1 Clinics tablet tablet tablet every day every day every day by oral by oral by oral route. route. route. Suprax 400 Suprax 400 No 1capsul Q1D Suprax 400 [facility] mg capsule mg capsule e(s) mg capsule [...] HOURS 5 days valacyclovi valacyclovi No valacyclov [facility] r 1 gram r 1 gram ir 1 gram [facility] tablet TAKE tablet TAKE tablet ty 1 TABLET BY 1 TABLET BY TAKE 1 Hospita MOUTH TWICE MOUTH TWICE TABLET BY l DAILY DAILY MOUTH Clinics TWICE DAILY Zithromax Zithromax No Zithromax [facility] Z-Andrew 250 Z-Andrew 250 Z-Andrew 250 Communi [...] DAYS acyclovir 5 acyclovir 5 No acyclovir [facility] % topical % topical 5 % Commu ni ointment ointment topical ty APPLY TO APPLY TO ointment [facility] THE THE APPLY TO l AFFECTED AFFECTED THE Clinics AREA EVERY AREA EVERY AFFECTED 2 HOURS 2 HOURS AREA EVERY DURING DURING 2 HOURS AWAKE HOURS AWAKE HOURS DURING FOR 4 DAYS FOR 4 DAYS AWAKE HOURS FOR 4 DAYS estradiol estradiol No estradiol [facility] 0.01% (0.1 0.01% (0.1 0.01% (0.1 [facility] mg/gram) mg/gram) mg/gram) ty vaginal vaginal vaginal Hospit a cream cream cream l INSERT 1 INSERT 1 INSERT 1 Cli nics GRAM INTO GRAM INTO GRAM INTO VAGINA VAGINA VAGINA TWICE A TWICE A TWICE A WEEK AT WEEK AT WEEK AT NIGHT. NIGHT. NIGHT. fluconazole fluconazole No fluconazol [facility] 150 mg 150 mg e 150 mg [facility] tablet tablet tablet ty Hospita l Clinics hydroxyzine hydroxyzine No 1 TID hydroxyzin [facility] HCl 25 mg HCl 25 mg e [...] Kenalog 40 No 60mg Q1D Kenalog 40 [facility] mg/mL mg/mL mg/mL [facility] suspension suspension suspension ty for for for Hospita injection injection injection l Take 60 mg Take 60 mg Take 60 mg Clinics every day every day every day by by by injection injection injection route. route. route. metoprolol metoprolol No metoprolol [facility] succinate succinate succinate [facility] ER 25 mg ER 25 mg ER 25 mg ty tablet,exte tablet,exte tablet,ext [facility]ospita nded nded ended l release 24 release 24 release 24 Clinics hr TAKE 1 hr TAKE 1 hr TAKE 1 TABLET BY TABLET BY TABLET BY MOUTH EVERY MOUTH EVERY MOUTH DAY DAY EVERY DAY omeprazole omeprazole No omeprazole [facility] 20 mg 20 mg 20 mg [facility] capsule,del capsule,del capsule,de ty ayed ayed layed [facility]ospita release release release l TAKE 1 TAKE 1 TAKE 1 Clinics CAPSULE BY CAPSULE BY CAPSULE BY MOUTH DAILY MOUTH DAILY MOUTH DAILY paroxetine paroxetine No paroxetine [facility] ER 25 mg ER 25 mg ER 25 mg Com ricci tablet,exte tablet,exte tablet,ext ty nded nded ended [facility]ospita release 24 release 24 release 24 l hr TAKE 1 hr TAKE 1 hr TAKE 1 Clinics TABLET BY TABLET BY TABLET BY MOUTH EVERY MOUTH EVERY MOUTH DAY DAY EVERY DAY tobramycin tobramycin No tobramycin [facility] 0.3 0.3 0.3 [facility] %-dexametha %-dexametha %-dexameth [...] FOR 5 DAYS triamcinolo triamcinolo No triamcinol [facility] ne ne one [facility] acetonide acetonide acetonide [...] days days days trimethopri trimethopri No trimethopr [facility] m 100 mg m 100 mg im 100 mg [facility] tablet TAKE tablet TAKE tablet ty 1 TABLET BY 1 TABLET BY TAKE 1 [facility]ospita MOUTH EVERY MOUTH EVERY TABLET BY l DAY DAY MOUTH Clinics EVERY DAY valacyclovi valacyclovi No valacyclov [facility] r 1 gram r 1 gram ir 1 gram [facility] tablet TAKE tablet TAKE tablet ty 1 TABLET BY 1 TABLET BY TAKE 1 Hospita MOUTH TWICE MOUTH TWICE TABLET BY l DAILY prn DAILY prn MOUTH Clin ics TWICE DAILY prn acyclovir 5 acyclovir 5 No acyclovir [facility] % topical % topical 5 % Commu [...] DAYS Augmentin Augmentin No 1 Q12H Augmentin [facility] 500 mg-125 500 mg-125 500 mg-125 [facility] mg tablet mg tablet mg tablet ty Take 1 Take 1 Take 1 [facility]ospita tablet tablet tablet l every 12 every 12 every 12 Cli nics hours by hours by hours by oral route oral route oral route for 10 for 10 for 10 days. days. days. cephalexin cephalexin No cephalexin [facility] 500 mg 500 mg 500 mg [facility] capsule capsule capsule ty TAKE 1 TAKE 1 TAKE 1 [facility]ospita CAPSULE BY CAPSULE BY CAPSULE BY l MOUTH TWICE MOUTH TWICE MOUTH Clinics DAILY DAILY TWICE DAILY estradiol estradiol No estradiol [facility] 0.01% (0.1 0.01% (0.1 0.01% (0.1 [facility] mg/gram) mg/gram) mg/gram) ty vaginal vaginal vaginal Hospit a cream cream cream l INSERT 1 INSERT 1 INSERT 1 Cli nics GRAM INTO GRAM INTO GRAM INTO VAGINA VAGINA VAGINA TWICE A TWICE A TWICE A WEEK AT WEEK AT WEEK AT NIGHT. NIGHT. NIGHT. fluconazole fluconazole No fluconazol [facility] 150 mg 150 mg e 150 mg [facility] tablet tablet tablet ty [facility]osp[facility] l Clinics hydroxyzine hydroxyzine No hydroxyzin [facility] HCl 25 mg HCl 25 mg e [...] Kenalog 40 No 60mg Q1D Kenalog 40 [facility] mg/mL mg/mL mg/mL [facility] suspension suspension suspension ty for for for Hospita injection injection injection l Take 60 mg Take 60 mg Take 60 mg Clinics every day every day every day by by by injection injection injection route. route. route. metoprolol metoprolol No metoprolol [facility] succinate succinate succinate [facility] ER 25 mg ER 25 mg ER 25 mg ty tablet,exte tablet,exte tablet,ext [facility]ospita nded nded ended l release 24 release 24 release 24 Clinics hr TAKE 1 hr TAKE 1 hr TAKE 1 TABLET BY TABLET BY TABLET BY MOUTH EVERY MOUTH EVERY MOUTH DAY DAY EVERY DAY metronidazo metronidazo No 1 Q8H metronidaz [facility] le 500 mg le 500 mg ole 500 mg [facility] tablet Take tablet Take tablet ty 1 tablet 1 tablet Take 1 Hospi ta every 8 every 8 tablet l hours by hours by every 8 Clin ics oral route oral route hours by for 7 days. for 7 days. oral route for 7 days. omeprazole omeprazole No omeprazole [facility] 20 mg 20 mg 20 mg [facility] capsule,del capsule,del capsule,de ty ayed ayed layed [facility]ospita release release release l TAKE 1 TAKE 1 TAKE 1 Clinics CAPSULE BY CAPSULE BY CAPSULE BY MOUTH DAILY MOUTH DAILY MOUTH DAILY ondansetron ondansetron No 1 Q6H ondansetro [facility] 4 mg 4 mg n 4 mg [...] for 6 days. paroxetine paroxetine No paroxetine [facility] ER 25 mg ER 25 mg ER 25 mg Com [facility] tablet,exte tablet,exte tablet,ext ty nded nded ended [facility]ospita release 24 release 24 release 24 l hr TAKE 1 hr TAKE 1 hr TAKE 1 Clinics TABLET BY TABLET BY TABLET BY MOUTH EVERY MOUTH EVERY MOUTH DAY DAY EVERY DAY tobramycin tobramycin No tobramycin [facility] 0.3 0.3 0.3 [facility] %-dexametha %-dexametha %-dexameth [...] FOR 5 DAYS triamcinolo triamcinolo No triamcinol [facility] ne ne one [facility] acetonide acetonide acetonide [...] FOR 7 DAYS trimethopri trimethopri No trimethopr [facility] m 100 mg m 100 mg im 100 mg [facility] tablet TAKE tablet TAKE tablet ty 1 TABLET BY 1 TABLET BY TAKE 1 [facility]ospita MOUTH EVERY MOUTH EVERY TABLET BY l DAY DAY MOUTH Clinics EVERY DAY valacyclovi valacyclovi No valacyclov [facility] r 1 gram r 1 gram ir 1 gram [facility] tablet TAKE tablet TAKE tablet ty 1 TABLET BY 1 TABLET BY TAKE 1 [facility]ospita MOUTH TWICE MOUTH TWICE TABLET BY l DAILY prn DAILY prn MOUTH Clin ics TWICE DAILY prn acyclovir 5 acyclovir 5 No acyclovir F[facility] % topical % topical 5 % Com[facility] ni ointment ointment topical ty APPLY TO APPLY TO ointment [facility] THE THE APPLY TO l AFFECTED AFFECTED THE Clinics AREA EVERY AREA EVERY AFFECTED 2 HOURS 2 HOURS AREA EVERY DURING DURING 2 HOURS AWAKE HOURS AWAKE HOURS DURING FOR 4 DAYS FOR 4 DAYS AWAKE HOURS FOR 4 DAYS amoxicillin amoxicillin No amoxicilli [facility] 500 500 n 500 [facility] mg-potassiu mg-potassiu mg-potassi ty m m um [facility] clavulanate clavulanate clavulanat l 125 mg 125 mg e 125 mg Clinics tablet TAKE tablet TAKE tablet 1 TABLET BY 1 TABLET BY TAKE 1 MOUTH EVERY MOUTH EVERY TABLET BY 12 HOURS 12 HOURS MOUTH FOR 10 DAYS FOR 10 DAYS EVERY 12 HOURS FOR 10 DAYS benzonatate benzonatate No 1capsul TID benzonatat [facility] 100 mg 100 mg e(s) e 100 mg [facility] capsule capsule capsule ty Take 1 Take 1 Take 1 [facility]ospita capsule 3 capsule 3 capsule 3 l times a day times a day times a Clinics by oral by oral day by route as route as oral route needed for needed for as needed 10 days. 10 days. for 10 days. BinaxNOW BinaxNOW No BinaxNOW Swe venkat COVID-19 Ag COVID-19 Ag COVID-19 [facility] Self Test Self Test Ag Self ty kit TEST kit TEST Test kit [facility]ospita DIRECTED DIRECTED TEST l TODAY TODAY DIRECTED Clinics TODAY cephalexin cephalexin No cephalexin [facility] 500 mg 500 mg 500 mg [facility] capsule capsule capsule ty TAKE 1 TAKE 1 TAKE 1 [facility]ospita CAPSULE BY CAPSULE BY CAPSULE BY l MOUTH TWICE MOUTH TWICE MOUTH Clinics DAILY DAILY TWICE DAILY estradiol estradiol No estradiol [facility] 0.01% (0.1 0.01% (0.1 0.01% (0.1 [facility] mg/gram) mg/gram) mg/gram) ty vaginal vaginal vaginal Hospit a cream cream cream l INSERT 1 INSERT 1 INSERT 1 Cli nics GRAM INTO GRAM INTO GRAM INTO VAGINA VAGINA VAGINA TWICE A TWICE A TWICE A WEEK AT WEEK AT WEEK AT NIGHT. NIGHT. NIGHT. fluconazole fluconazole No fluconazol [facility] 150 mg 150 mg e 150 mg [facility] tablet tablet tablet ty [facility]osp[facility] l Clinics hydroxyzine hydroxyzine No hydroxyzin [facility] HCl 25 mg HCl 25 mg e [...] Kenalog 40 No 60mg Q1D Kenalog 40 [facility] mg/mL mg/mL mg/mL [facility] suspension suspension suspension ty for for for [facility]osp[facility] injection injection injection l Take 60 mg Take 60 mg Take 60 mg Clinics every day every day every day by by by injection injection injection route. route. route. meloxicam meloxicam No 1 Q1D meloxicam [facility] 15 mg 15 mg 15 mg [facility] tablet Take tablet Take tablet ty 1 tablet 1 tablet Take 1 Hospi ta every day every day tablet l by oral by oral every day Clin ics route for route for by oral 30 days. 30 days. route for 30 days. metoprolol metoprolol No metoprolol [facility] succinate succinate succinate [facility] ER 25 mg ER 25 mg ER 25 mg ty tablet,exte tablet,exte tablet,ext [facility]ospita nded nded ended l release 24 release 24 release 24 Clinics hr TAKE 1 hr TAKE 1 hr TAKE 1 TABLET BY TABLET BY TABLET BY MOUTH EVERY MOUTH EVERY MOUTH DAY DAY EVERY DAY metronidazo metronidazo No metronidaz [facility] le 500 mg le 500 mg ole 500 mg [facility] tablet TAKE tablet TAKE tablet ty 1 TABLET BY 1 TABLET BY TAKE 1 [facility]ospita MOUTH EVERY MOUTH EVERY TABLET BY l 8 HOURS FOR 8 HOURS FOR MOUTH Clinics 7 DAYS 7 DAYS EVERY 8 HOURS FOR 7 DAYS omeprazole omeprazole No omeprazole [facility] 20 mg 20 mg 20 mg [facility] capsule,del capsule,del capsule,de ty ayed ayed layed [facility]osp[facility] release release release l TAKE 1 TAKE 1 TAKE 1 Clinics CAPSULE BY CAPSULE BY CAPSULE BY MOUTH DAILY MOUTH DAILY MOUTH DAILY ondansetron ondansetron No ondansetro [facility] 4 mg 4 mg n 4 mg [...] 6 DAYS NEEDED paroxetine paroxetine No paroxetine [facility] ER 25 mg ER 25 mg ER 25 mg Com [facility] tablet,exte tablet,exte tablet,ext ty nded nded ended [facility]ospita release 24 release 24 release 24 l hr TAKE 1 hr TAKE 1 hr TAKE 1 Clinics TABLET BY TABLET BY TABLET BY MOUTH EVERY MOUTH EVERY MOUTH DAY DAY EVERY DAY tobramycin tobramycin No tobramycin [facility] 0.3 0.3 0.3 [facility] %-dexametha %-dexametha %-dexameth [...] EYE EVERY 6 HOURS FOR 5 DAYS tramadol 50 tramadol 50 No tramadol [facility] mg tablet mg tablet 50 mg Comm uni tablet ty [facility]ospita l Clinics triamcinolo triamcinolo No triamcinol [facility] ne ne one [facility] acetonide acetonide acetonide [...] FOR 7 DAYS trimethopri trimethopri No trimethopr [facility] m 100 mg m 100 mg im 100 mg [facility] tablet TAKE tablet TAKE tablet ty 1 TABLET BY 1 TABLET BY TAKE 1 Hospita MOUTH EVERY MOUTH EVERY TABLET BY l DAY DAY MOUTH Clinics EVERY DAY valacyclovi valacyclovi No valacyclov [place] r 1 gram r 1 gram ir 1 gram Co mmuni tablet TAKE tablet TAKE tablet ty 1 TABLET BY 1 TABLET BY TAKE 1 Hospita MOUTH TWICE MOUTH TWICE TABLET BY l DAILY prn DAILY prn MOUTH Clin ics TWICE DAILY prn Zithromax Zithromax No Zithromax [place] Z-Andrew 250 Z-Andrew 250 Z-Andrew 250 Communi [...] ONCE DAYS DAYS DAILY FOR 4 DAYS Vital Signs Vital Name Observation Time Observation Value Comments Source BP Diastolic 2022-01-23 00:00:00 80 mm[Hg] [facility] Height 2022-01-23 00:00:00 63 [in_i] [facility] BMI (Body Mass 2022-01-23 00:00:00 34.2 kg/m2 [facility] s BP Systolic 2022-01-23 00:00:00 145 mm[Hg] [facility] Body Weight 2022-01-23 00:00:00 3088 [oz_av] [facility] s BP Diastolic 2021-12-18 00:00:00 74 mm[Hg] [facility] Height 2021-12-18 00:00:00 63 [in_i] [facility] BMI (Body Mass 2021-12-18 00:00:00 34.7 kg/m2 [facility] s BP Systolic 2021-12-18 00:00:00 139 mm[Hg] [facility] Body Weight 2021-12-18 00:00:00 3136 [oz_av] [facility] s BP Diastolic 2021-11-08 00:00:00 71 mm[Hg] [facility] s Height 2021-11-08 00:00:00 63 [in_i] [facility] BMI (Body Mass 2021-11-08 00:00:00 35.3 kg/m2 [facility]) [facility] s BP Systolic 2021-11-08 00:00:00 140 mm[Hg] [facility] s Body Weight 2021-11-08 00:00:00 3187.2 [oz_av] [facility] s BP Diastolic 2021-10-21 00:00:00 74 mm[Hg] [facility] s Height 2021-10-21 00:00:00 63 [in_i] [facility] BMI (Body Mass 2021-10-21 00:00:00 35.3 kg/m2 [facility] Clinic s BP Systolic 2021-10-21 00:00:00 147 mm[Hg] [facility] s Body Weight 2021-10-21 00:00:00 3184 [oz_av] [facility] s BP Diastolic 2021-09-20 00:00:00 71 mm[Hg] [facility] s Height 2021-09-20 00:00:00 63 [in_i] [facility] BMI (Body Mass 2021-09-20 00:00:00 34.7 kg/m2 [facility] Clinic s BP Systolic 2021-09-20 00:00:00 128 mm[Hg] [facility] s Body Weight 2021-09-20 00:00:00 3137 [oz_av] [facility] s BP Diastolic 2021-07-31 00:00:00 90 mm[Hg] [facility] s Height 2021-07-31 00:00:00 63 [in_i] [facility] s BMI (Body Mass 2021-07-31 00:00:00 34.9 kg/m2 [facility] s BP Systolic 2021-07-31 00:00:00 123 mm[Hg] [facility] s Body Weight 2021-07-31 00:00:00 3153.6 [oz_av] [facility] s BP Diastolic 2021-07-23 00:00:00 85 mm[Hg] [facility] s Height 2021-07-23 00:00:00 63 [in_i] [facility] s BMI (Body Mass 2021-07-23 00:00:00 35.6 kg/m2 [facility] s BP Systolic 2021-07-23 00:00:00 151 mm[Hg] [facility] s Body Weight 2021-07-23 00:00:00 3216 [oz_av] [facility] s BP Diastolic 2021-06-24 00:00:00 81 mm[Hg] [facility] s Height 2021-06-24 00:00:00 63 [in_i] [facility] s BMI (Body Mass 2021-06-24 00:00:00 36.8 kg/m2 [facility] s BP Systolic 2021-06-24 00:00:00 138 mm[Hg] [facility] Body Weight 2021-06-24 00:00:00 3328 [oz_av] [facility] s BP Diastolic 2021-05-30 00:00:00 84 mm[Hg] [facility] s Height 2021-05-30 00:00:00 63 [in_i] [facility] s BMI (Body Mass 2021-05-30 00:00:00 36.5 kg/m2 [facility] Clinic s BP Systolic 2021-05-30 00:00:00 144 mm[Hg] [facility] s Body Weight 2021-05-30 00:00:00 3296 [oz_av] [facility] s BP Diastolic 2021-04-09 00:00:00 68 mm[Hg] [facility] s Height 2021-04-09 00:00:00 63 [in_i] [facility] BMI (Body Mass 2021-04-09 00:00:00 34.4 kg/m2 [facility] Clinic s BP Systolic 2021-04-09 00:00:00 143 mm[Hg] [facility] Body Weight 2021-04-09 00:00:00 3107.2 [oz_av] [facility] s BP Diastolic 2021-03-14 00:00:00 80 mm[Hg] [facility] s Height 2021-03-14 00:00:00 63 [in_i] [facility] s BMI (Body Mass 2021-03-14 00:00:00 34.9 kg/m2 [facility] Clinic s BP Systolic 2021-03-14 00:00:00 145 mm[Hg] [facility] s Body Weight 2021-03-14 00:00:00 3155.2 [oz_av] [facility] s BP Diastolic 2021-03-04 00:00:00 76 mm[Hg] [facility] s Height 2021-03-04 00:00:00 63 [in_i] [facility] s BMI (Body Mass 2021-03-04 00:00:00 36.2 kg/m2 [facility] Clinic s BP Systolic 2021-03-04 00:00:00 139 mm[Hg] [facility] s Body Weight 2021-03-04 00:00:00 3270.4 [oz_av] [facility] s BP Diastolic 2021-02-25 00:00:00 71 mm[Hg] [facility] s Height 2021-02-25 00:00:00 63 [in_i] [facility] s BMI (Body Mass 2021-02-25 00:00:00 36.5 kg/m2 [facility] s BP Systolic 2021-02-25 00:00:00 131 mm[Hg] [facility] Body Weight 2021-02-25 00:00:00 3292.8 [oz_av] [facility] s BP Diastolic 2021-01-14 00:00:00 85 mm[Hg] [facility] s Height 2021-01-14 00:00:00 63 [in_i] [facility] s BMI (Body Mass 2021-01-14 00:00:00 35.3 kg/m2 [facility] s BP Systolic 2021-01-14 00:00:00 137 mm[Hg] [facility] s Body Weight 2021-01-14 00:00:00 3184 [oz_av] [facility] s BP Diastolic 2020-10-16 00:00:00 61 mm[Hg] [facility] s Height 2020-10-16 00:00:00 63 [in_i] [facility] s BMI (Body Mass 2020-10-16 00:00:00 34.4 kg/m2 [facility] s BP Systolic 2020-10-16 00:00:00 120 mm[Hg] [facility] s Body Weight 2020-10-16 00:00:00 3104 [oz_av] [facility] s BP Diastolic 2020-09-28 00:00:00 86 mm[Hg] [facility] s Height 2020-09-28 00:00:00 63 [in_i] [facility] s BMI (Body Mass 2020-09-28 00:00:00 33.9 kg/m2 [facility] Clinic s BP Systolic 2020-09-28 00:00:00 129 mm[Hg] [facility] s Body Weight 2020-09-28 00:00:00 3062.4 [oz_av] [facility] s BP Diastolic 2020-08-20 00:00:00 79 mm[Hg] [facility] s Height 2020-08-20 00:00:00 63 [in_i] [facility] s BMI (Body Mass 2020-08-20 00:00:00 33 kg/m2 [facility] s BP Systolic 2020-08-20 00:00:00 142 mm[Hg] [facility] s Body Weight 2020-08-20 00:00:00 2979.2 [oz_av] [facility] s BP Diastolic 2020-08-13 00:00:00 93 mm[Hg] [facility] s Height 2020-08-13 00:00:00 63 [in_i] [facility] s BMI (Body Mass 2020-08-13 00:00:00 33.2 kg/m2 [facility] Clinic s BP Systolic 2020-08-13 00:00:00 149 mm[Hg] [facility] s Body Weight 2020-08-13 00:00:00 3001.6 [oz_av] [facility] s BP Diastolic 2020-07-26 00:00:00 74 mm[Hg] [facility] s Height 2020-07-26 00:00:00 63 [in_i] [facility] s BMI (Body Mass 2020-07-26 00:00:00 32.7 kg/m2 [facility] s BP Systolic 2020-07-26 00:00:00 133 mm[Hg] [facility] Body Weight 2020-07-26 00:00:00 2956.8 [oz_av] [facility] s Procedures Procedure Date / Time Performing Clinician Source Performed URINE CULTURE 2021-09-23 00:00:00 Provider, Not In [facility] POC URINALYSIS DIPSTICK 2021-08-21 19:36:00 Emily Vazquez [facility] [id number] 2021-08-21 19:36:00 [facility] Carpal Tunnel Surgery [facility] Cholecystectomy [facility] Tubal Ligation [facility] Plan of Care Planned Activity Planned Date Details Comments Source Future Scheduled Test 2022-02-04 HEPATITIS B VACCINES [facility] 13:45:17 (1 of 3 - 3-dose series) [code = HEPATITIS B VACCINES (1 of 3 - 3-dose series)] Future Scheduled Test 2022-02-04 Hepatitis C screening [facility] 13:45:17 (procedure) [code = 060345565] Future Scheduled Test 2022-02-04 Screening for [facility] 13:45:17 malignant neoplasm of cervix (procedure) [code = 852089761] Future Scheduled Test 2022-02-04 BREAST CANCER [facility] 13:45:17 SCREENING [code = BREAST CANCER SCREENING] Future Scheduled Test 2022-02-04 COLONOSCOPY SCREENING [facility] 13:45:17 [code = COLONOSCOPY SCREENING] Future Scheduled Test 2022-02-04 SHINGLES VACCINES (1 [facility] 13:45:17 of 2) [code = SHINGLES VACCINES (1 of 2)] Future Scheduled Test 2022-02-04 65+ PNEUMOCOCCAL Me [facility] 13:45:17 VACCINE (1 - PCV) [code = 65+ PNEUMOCOCCAL VACCINE (1 - PCV)] Future Scheduled Test 2022-02-[address] [facility] 13:45:17 [code = INFLUENZA VACCINE] Future Scheduled Test 2022-01-03 HEPATITIS B VACCINES [facility] 14:11:23 (1 of 3 - 3-dose series) [code = HEPATITIS B VACCINES (1 of 3 - 3-dose series)] Future Scheduled Test 2022-01-03 Hepatitis C screening [facility] 14:11:23 (procedure) [code = 579319894] Future Scheduled Test 2022-01-03 Screening for [facility] 14:11:23 malignant neoplasm of cervix (procedure) [code = 404211810] Future Scheduled Test 2022-01-03 BREAST CANCER [facility] 14:11:23 SCREENING [code = BREAST CANCER SCREENING] Future Scheduled Test 2022-01-03 COLONOSCOPY SCREENING [facility] 14:11:23 [code = COLONOSCOPY SCREENING] Future Scheduled Test 2022-01-03 SHINGLES VACCINES (1 [facility] 14:11:23 of 2) [code = SHINGLES VACCINES (1 of 2)] Future Scheduled Test 2022-01-03 65+ PNEUMOCOCCAL [facility] 14:11:23 VACCINE (1 - PCV) [code = 65+ PNEUMOCOCCAL VACCINE (1 - PCV)] Future Scheduled Test 2022-01-[address] [facility] 14:11:23 [code = INFLUENZA VACCINE] Future Scheduled Test 2022-01-03 HEPATITIS B VACCINES [facility] 14:11:23 (1 of 3 - 3-dose series) [code = HEPATITIS B VACCINES (1 of 3 - 3-dose series)] Future Scheduled Test 2022-01-03 Hepatitis C screening [facility] 14:11:23 (procedure) [code = 380030428] Future Scheduled Test 2022-01-03 Screening for [facility] 14:11:23 malignant neoplasm of cervix (procedure) [code = 299676929] Future Scheduled Test 2022-01-03 BREAST CANCER [facility] 14:11:23 SCREENING [code = BREAST CANCER SCREENING] Future Scheduled Test 2022-01-03 COLONOSCOPY SCREENING [facility] 14:11:23 [code = COLONOSCOPY SCREENING] Future Scheduled Test 2022-01-03 SHINGLES VACCINES (1 [facility] 14:11:23 of 2) [code = SHINGLES VACCINES (1 of 2)] Future Scheduled Test 2022-01-03 65+ PNEUMOCOCCAL [facility] 14:11:23 VACCINE (1 - PCV) [code = 65+ PNEUMOCOCCAL VACCINE (1 - PCV)] Future Scheduled Test 2022-01-[address] [facility] 14:11:23 [code = INFLUENZA VACCINE] Future Scheduled Test 2021-11-28 HEPATITIS B VACCINES [facility] 00:25:38 (1 of 3 - 3-dose series) [code = HEPATITIS B VACCINES (1 of 3 - 3-dose series)] Future Scheduled Test 2021-11-28 Hepatitis C screening [facility] 00:25:38 (procedure) [code = 384967695] Future Scheduled Test 2021-11-28 Screening for [facility] 00:25:38 malignant neoplasm of cervix (procedure) [code = 608282171] Future Scheduled Test 2021-11-28 BREAST CANCER [facility] 00:25:38 SCREENING [code = BREAST CANCER SCREENING] Future Scheduled Test 2021-11-28 COLONOSCOPY SCREENING [facility] 00:25:38 [code = COLONOSCOPY SCREENING] Future Scheduled Test 2021-11-28 SHINGLES VACCINES (1 [facility] 00:25:38 of 2) [code = SHINGLES VACCINES (1 of 2)] Future Scheduled Test 2021-11-28 65+ PNEUMOCOCCAL [facility] 00:25:38 VACCINE (1 - PCV) [code = 65+ PNEUMOCOCCAL VACCINE (1 - PCV)] Future Scheduled Test 2021-11-[address] [facility] 00:25:38 [code = INFLUENZA VACCINE] Future Scheduled Test 2021-11-28 HEPATITIS B VACCINES [facility] 00:25:38 (1 of 3 - 3-dose series) [code = HEPATITIS B VACCINES (1 of 3 - 3-dose series)] Future Scheduled Test 2021-11-28 Hepatitis C screening [facility] 00:25:38 (procedure) [code = 811936090] Future Scheduled Test 2021-11-28 Screening for [facility] 00:25:38 malignant neoplasm of cervix (procedure) [code = 539702042] Future Scheduled Test 2021-11-28 BREAST CANCER [facility] 00:25:38 SCREENING [code = BREAST CANCER SCREENING] Future Scheduled Test 2021-11-28 COLONOSCOPY SCREENING [facility] 00:25:38 [code = COLONOSCOPY SCREENING] Future Scheduled Test 2021-11-28 SHINGLES VACCINES (1 [facility] 00:25:38 of 2) [code = SHINGLES VACCINES (1 of 2)] Future Scheduled Test 2021-11-28 65+ PNEUMOCOCCAL [facility] 00:25:38 VACCINE (1 - PCV) [code = 65+ PNEUMOCOCCAL VACCINE (1 - PCV)] Future Scheduled Test 2021-11-[address] [facility] 00:25:38 [code = INFLUENZA VACCINE] Diagnostic Test 2021-10-21 urinalysis, dipstick [facility] Pending 00:00:00 [code = urinalysis, Hospital Clinics dipstick] Diagnostic Test 2021-10-21 rapid SARS CoV 2 Ag, [facility] Pending 00:00:00 QL IA, respiratory Hospital Clinics specimen [code = rapid SARS CoV 2 Ag, QL IA, respiratory specimen] Diagnostic Test 2021-10-21 rapid strep group A, [facility] Pending 00:00:00 throat [code = rapid [facility] strep group A, throat] Instructions [facility] Encounters Start End Encounter Admission Attending Care Care Encounter Source Date/Time Date/Time Type Type Clinicians Facility Department ID 2021-11-07 [facility] [id number] 01:[place]:34 [id number] [facility] 2021-10-07 [facility] [id number] [place] 12:39:58 [id number] [facility] 2021-07-[address] [facility] [id number] [place] 01:03:47 LUCIEN [id number] [facility] 2022-02-06 2022-02-06 Outpatient SISSON_C [facility] [id number] [place] 00:00:00 00:00:00 1110 [facility] 2022-01-23 2022-01-23 Outpatient SISSON_C [facility] [id number] [place] 00:00:00 00:00:00 1027 [facility] 2022-01-23 2022-01-23 [facility] [place] 00:00:00 00:00:00 Julianne Lopez MSN, SAND MOLDER, Hospital - ty RN CVOR-C: [address] [place] [facility] Clinic s [address], [facility] [address], Mamta Lopez, YAEL MSN, RN CVOR-C [id number] , Ph. 2022-01-15 2022-01-15 Outpatient SISSON_C [facility] [id number] [place] 00:00:00 00:00:00 1019 [facility] 2022-01-03 2022-01-03 Telephone George, 1.2.840.1 [id number] Methodi 00:00:00 00:00:00 Emily 46089.1.1 [address] [facility] 3.430.2.7 Hosp bandar .3.512691 l .8 2022-01-03 2022-01-03 Telephone George, 1.2.840.1 [id number] 21 [id number] Methodi 00:00:00 00:00:00 Emily 17549.1.1 7[address] [facility] 3.430.2.7 Hosp bandar .3.532697 l .8 2022-01-02 2022-01-[address] [facility] [id number] [place] 00:00:00 00:00:00 1006 [facility] 2021-12-30 2021-12-31 Inpatient CHICO Arauz, [facility] [id number].01 [id number] [facility] 12:08:00 09:39:[address] [place] [address] 2021-12-18 2021-12-[address] [facility] [id number] [place] 00:00:00 00:00:00 0921 Commun i ty Hospita l [facility] 2021-12-18 2021-12-18 [facility] [place] 00:00:00 00:00:00 Julianne Lopez MSN, SAND MOLDER, Hospital - ty RN CVOR-C: [address] [place] [facility] Clinic s [address], [facility] [address], Mamta Lopez, YAEL MSN, RN CVOR-C [id number] , Ph. 2021-12-12 2021-12-12 Outpatient SISSON_C [facility] [id number] [place] 00:00:00 00:00:00 0915 [facility] 2021-12-12 2021-12-12 Outpatient John [facility] [id number] 00:00:00 00:00:00 Willy [id number] 2021-12-12 2021-12-12 [facility] [place] [id number] [place] 00:00:00 00:00:00 John [facility] MSN, SAND MOLDER, Hospital - ty RN CVOR-C: [address] [place] [facility] Clinic s [address], [facility] [address], Mamta Lopez, [place] MSN, RN CVOR-C [phone] , Ph. 2021-12-10 2021-12-10 Outpatient SISSON_C [facility] [id number] [place] 00:00:00 00:00:00 0913 [facility] 2021-11-11 2021-11-11 Outpatient CHRETIEN_F [facility] [id number] [place] 00:00:00 00:00:00 0815 [facility] 2021-11-08 2021-11-08 Outpatient CHRETIEN_F [facility] [id number] [place] 00:00:00 00:00:00 0812 [facility] Clin[facility] 2021-11-08 2021-11-08 Outpatient Chago Longoriaa [facility] [id number] 00:00:00 00:00:00 [id number] 2021-11-08 2021-11-08 Emily [facility] [place] 12 [place] 00:00:00 00:00:00 Julianne Longoria [facility] ROSALBA, MSN, Hospital - ty [facility] [place] [address], CLINIC [address], [place] [address] , Ph. 2021-10-22 2021-10-22 Outpatient CHRETIEN_F [facility] [id number] [place] 10:01:00 10:01:00 0726 [facility] i [facility] Clinics 2021-10-21 2021-10-21 Outpatient [facility] [id number] [place] 10:15:00 10:15:00 MATTHEW Escamilla 2021-10-21 2021-10-21 Outpatient CHRETIEN_F [facility] [id number] [place] 06:03:00 06:03:00 07 Commun i ty Hosp[facility] Clinics 2021-10-21 2021-10-21 Outpatient Chretien, [facility] [id number] 00:00:00 00:00:00 Kaitlin [id number] 2021-10-21 2021-10-21 Kaitlin [facility] [place] 00:00:00 00:00:[address] [facility] mmuni SAND MOLDER-RN CVOR-B [facility] C: [address] [facility], CLINIC [address], [place] [address] , Ph. 2021-10-14 2021-10-14 Outpatient [facility]EL[facility]GE [facility] [id number] [facility] 07:36:00 14:00:00 LINWOOD 2021-10-14 2021-10-[address] [facility] [id number] [place] 09:00:00 09:00:00 [facility] 2021-10-11 2021-10-11 Outpatient LEVI_JEMAL HODGE [facility] [id number] [place] 10:21:00 10:21:00 SSA 0715 [facility] 2021-10-08 2021-10-08 Outpatient WATERS_S [facility] [id number] [place] 03:10:00 03:10:00 0712 Commun i ty [facility]osp[facility] Clinics 2021-09-23 2021-09-23 Orders Provider, 1.2.840.1 [id number] [id number] Methodi 00:00:00 00:00:00 Only Not In [address]59.1.[address] System 3.430.2.7 Hospit a .3.120999 l .8 2021-09-23 2021-09-23 Telephone Lord, 1.2.840.1 [id number] [id number] Methodi 00:00:00 00:00:[address] 3.430.2.7 Hospit a .3.692592 l .8 2021-09-23 2021-09-23 Orders Provider, 1.2.840.1 [id number] Methodi 00:00:00 00:00:00 Only Not In 08700.1.[address] 3.430.2.7 Hospit a .3.918394 l .8 2021-09-23 2021-09-23 Telephone Lord, 1.2.840.1 [id number] Methodi 00:00:00 00:00:[address] 3.430.2.7 Hospit a .3.873467 l .8 2021-09-20 2021-09-20 Outpatient WATERS_S [facility] [id number] [place] 12:16:00 12:16:00 0624 [facility] i ty [facility] 2021-09-20 2021-09-20 [facility] [place] 00:00:00 00:00:00 [facility] MSN, SAND MOLDER, Hospital - ty RN CVOR-C: [address] [place] [facility], Clinic s [address], [facility] [address], Mamta Lopez, [place] MSN, RN CVOR-C [address] , Ph. 2021-09-20 2021-09-20 Outpatient John [facility] [id number] 00:00:00 00:00:00 Willy [id number] 2021-09-11 2021-09-11 Orders George, 1.2.840.1 [id number] [id number] Methodi 00:00:00 00:00:00 Only Emily 61502.1.[address] [place] 3.430.2.7 Hosp bandar .3.334014 l .8 2021-09-11 2021-09-11 Orders George, 1.2.840.1 [id number] 2099 [id number] Methodi 00:00:00 00:00:00 Only Emily 32746.1.[address] [place] 3.430.2.7 Hosp bandar .3.976469 l .8 2021-09-09 2021-09-09 Telephone George, 1.2.840.1 [id number] Methodi 00:00:00 00:00:[address] [place] 3.430.2.7 Hosp bandar .3.925495 l .8 2021-09-09 2021-09-09 Telephone George, 1.2.840.1 [id number] Methodi 00:00:00 00:00:[address] [place] 3.430.2.7 Hosp bandar .3.054379 l .8 2021-09-03 2021-09-03 Outpatient WATERS_S [facility] [id number] [place] 01:31:00 01:31:00 0607 Commun i [facility] Clinics 2021-08-21 2021-08-21 Office George, 1.2.840.1 [id number] 2099 [id number] Methodi 14:45:00 15:41:16 Visit Emily 04812.1.[address] [place] 3.430.2.7 Hosp bandar .3.388173 l .8 2021-08-21 2021-08-21 Office George, 1.2.840.1 [id number] 2099 [id number] Methodi 14:45:00 15:41:16 Visit Emily 19295.1.[address] [place] 3.430.2.7 Hosp [facility] .3.755291 l .8 2021-08-21 2021-08-21 Travel 1.2.840.1 1.2.224.399 5585 [id number] Methodi 00:00:00 00:00:[address] 3.430.2.7 0.2.7.3.698 Ho spita .3.560927 084.8 l .8 2021-08-21 2021-08-21 Travel 1.2.840.1 1.2.484.678 0855 [id number] Methodi 00:00:00 00:00:[address] 3.430.2.7 0.2.7.3.698 Ho spita .3.242370 084.8 l .8 2021-07-31 2021-07-31 Outpatient WATERS_S [facility] [id number] [place] 04:50:00 04:50:00 0504 [facility] 2021-07-31 2021-07-31 [facility] [place] [facility] [place] 00:00:00 00:00:00 John, [facility] Comm [facility] MSN, SAND MOLDER, Hospital - ty RN CVOR-C: [address] [facility] [facility] [place] [place], Clinic s [address], [address], Mamta Lopez [place] MSN, RN CVOR-C [address] , Ph. 2021-07-31 2021-07-31 Outpatient [facility] [id number] 00:00:00 00:00:00 Willy [id number] 2021-07-26 2021-07-26 Outpatient [facility] [id number] [place] 05:01:00 05:01:00 0429 Commun i ty [facility]osp[facility] 2021-07-26 2021-07-26 [facility] [place] 00:00:00 00:00:00 [facility] Comm uni MSN, SAND MOLDER, Hospital - ty RN CVOR-C: 303 [place] [facility], Clinic s [address], [address], Mamta Lopez, YAEL MSN, RN CVOR-C [address] , Ph. 2021-07-26 2021-07-26 Outpatient John [facility] [id number] 00:00:00 00:00:00 Willy [id number] 2021-07-23 2021-07-23 Outpatient [facility] [id number] [place] 03:28:00 03:28:00 0426 Commun i ty Hospita [facility] Clinics 2021-07-23 2021-07-23 Kaitlin [facility] [place] 00:00:00 00:00:[address] [facility] mmuni SAND MOLDER-RN CVOR-B Hospital - ty C: [address] [place] [address] Suite [facility], [place] [address] , Ph. 2021-07-23 2021-07-23 Outpatient Umair [facility] [id number] 00:00:00 00:00:00 Kaitlin [id number] 2021-07-13 2021-07-13 Outpatient [facility] [id number] [place] 01:29:00 01:29:00 0416 [facility] i [facility] Clinics 2021-06-24 2021-06-24 Outpatient [facility] [id number] [place] 06:06:00 06:06:00 0328 Commun i ty Hospita l Clinics 2021-06-24 2021-06-24 [facility] [place] 00:00:00 00:00:00 Huma [facility] SAND MOLDER-GLUE SPREADER-C: Hospital - ty [address] [place] [address] [address], [place] [address] , Ph. 2021-06-24 2021-06-24 Outpatient [facility] [id number] 00:00:00 00:00:00 [place] [id number] 2021-05-30 2021-05-30 Outpatient [facility] [id number] [place] 04:28:00 04:28:00 0303 Commun i ty Hospita l Clinics 2021-05-30 2021-05-30 [facility] [place] 00:00:00 00:00:00 [facility] SAND MOLDER-GLUE SPREADER-C: Hospital - ty [address] [place] [address] [address], [place] [address] , Ph. 2021-05-30 2021-05-30 Outpatient [facility] [id number] 00:00:00 00:00:00 [place] [id number] 2021-04-26 2021-04-26 Outpatient [facility] [id number] [place] 04:02:00 04:02:00 0128 Commun i ty Hospita [facility] Clinics 2021-04-10 2021-04-10 Outpatient [facility] [id number] [place] 10:19:00 10:19:00 0112 Commun i ty Hospita l Clinics 2021-04-09 2021-04-09 Outpatient [facility] [id number] [place] 02:44:00 02:44:00 0111 Commun i ty Hospita l Clinics 2021-04-09 2021-04-09 [facility] [place] 00:00:00 00:00:00 [facility] SAND MOLDER-GLUE SPREADER-C: Hospital - ty [address] [place] [address] [address], [place] [address] , Ph. 2021-04-09 2021-04-09 Outpatient [facility] [id number] 00:00:00 00:00:00 [place] [id number] 2021-04-05 2021-04-05 Outpatient SHIVA, [facility] [id number] [facility] 10:06:00 23:59:00 LUCIEN 2021-03-14 2021-03-14 Outpatient [facility] [id number] [place] 11:37:00 11:37:00 1216 Commun i ty Hospita l Clinics 2021-03-14 2021-03-14 [place] [facility] [place] [id number] [place] 00:00:00 00:00:00 [facility] SAND MOLDER-GLUE SPREADER-C: [facility] - [place] [address], [place] [address] , Ph. 2021-03-14 2021-03-14 Outpatient Finn, [facility] [id number] 00:00:00 00:00:00 [place] [id number] 2021-03-04 2021-03-04 Outpatient [facility] [id number] [place] 02:40:00 02:40:00 1206 Commun i ty Hospita [facility] 2021-03-04 2021-03-04 [facility] [place] [id number] [place] 00:00:00 00:00:00 [facility] SAND MOLDER-GLUE SPREADER-C: Hospital - ty [address] [place] [address] [address], [place] [address] , Ph. 2021-03-04 2021-03-04 Outpatient Finn, [facility] [id number] 00:00:00 00:00:00 [place] [id number] 2021-03-04 2021-03-04 Outpatient Finn, [facility] [id number] 00:00:00 00:00:00 [place] [id number] 2021-02-25 2021-02-25 [facility] [place] [id number] [place] 00:00:00 00:00[facility]00 [facility] [address], [place] [address] , Ph. 2021-02-25 2021-02-25 Outpatient Finn, [facility] [id number] 00:00:00 00:00:00 [place] [id number] 2021-01-14 2021-01-14 Outpatient [facility] [id number] [place] 05:43:00 05:43:00 1018 Commun i ty Hospita l Clinics 2021-01-14 2021-01-14 Outpatient Finn, [facility] [id number] 00:00:00 00:00:00 [place] [id number] 2021-01-14 2021-01-14 Outpatient Finn, [facility] [id number] 00:00:00 00:00:00 [place] [id number] 2021-01-14 2021-01-14 [facility] [place] 00:00:00 00:00:00 [facility] SAND MOLDER-GLUE SPREADER-C: [address], [place] [address] , Ph. 2020-10-16 2020-10-16 Outpatient [facility] [id number] [place] 02:24:00 02:24:00 0720 Commun i ty Hospita l Clinics 2020-10-16 2020-10-16 Outpatient Finn, [facility] [id number] 00:00:00 00:00:00 [place] [id number] 2020-10-16 2020-10-16 [facility] [place] [id number] [place] 00:00:00 00:00:00 [facility] SAND MOLDER-GLUE SPREADER-C: [facility] [place] [address], [place] [address] , Ph. 2020-09-28 2020-09-28 Outpatient [facility] [id number] [place] 12:14:00 12:14:00 0702 Commun i ty Hospita l [facility] 2020-09-28 2020-09-28 Outpatient Finn, [facility] [id number] 00:00:00 00:00:00 [place] [id number] 2020-09-28 2020-09-28 [place] [facility] [place] [id number] [place] 00:00:00 00:00:00 [facility] SAND MOLDER-GLUE SPREADER-C: Hospital - ty [address] [place], [place] [address], [place] [address] , Ph. 2020-09-28 2020-09-28 Outpatient Finn, [facility] [id number] 00:00:00 00:00:00 [place] [id number] 2020-08-30 2020-08-30 Outpatient [facility] [id number] [place] 05:28:00 05:28:00 0603 Commun i ty Hospita [facility] 2020-08-26 2020-08-26 Outpatient [facility] [id number] [place] 01:01:00 01:01:00 0530 Commun i ty Hospita l Clinics 2020-08-20 2020-08-20 Outpatient [facility] [id number] [place] 05:07:00 05:07:00 0524 Commun i ty Hospita l Clinics 2020-08-20 2020-08-20 [facility] [place] 24 [place] 00:00:00 00:00:00 [facility] SAND MOLDER-GLUE SPREADER-C: Hospital - ty [address] [facility] [address], [place] [address] , Ph. 2020-08-20 2020-08-20 [facility] [id number] 00:00:00 00:00:00 [place] [id number] 2020-08-16 2020-08-16 Outpatient SUSTACHE, [facility] [address] [place] 00:00:00 00:00:00 SHIELA [address] 2020-08-13 2020-08-13 Outpatient [facility] [id number] [place] 04:15:00 04:15:00 0517 Commun i ty Hospita l Clinics 2020-08-13 2020-08-13 [facility] [place] 00:00:00 00:00:00 [facility] uni SAND MOLDER-GLUE SPREADER-C: Hospital - ty [address] [place] [address] [address], [place] [address] , Ph. 2020-08-13 2020-08-13 Outpatient [facility] [id number] 00:00:00 00:00:00 [place] [id number] 2020-07-26 2020-07-26 Outpatient [facility]ERS_S [facility] [id number] [place] 05:04:00 05:04:00 0429 Commun i ty Hospita l Clinics 2020-07-26 2020-07-26 [facility] [place] 00:00:00 00:00:00 [facility] SAND MOLDER-GLUE SPREADER-C: Hospital - ty [address] [place] [address] [address], [place] [address] , Ph. 2020-07-26 2020-07-26 Outpatient [facility] [id number] 00:00:00 00:00:00 [place] [id number] 2020-07-24 2020-07-24 Outpatient SILVIO, [facility] [id number] [place] 00:00:00 00:00:00 SHIELA [address] ma[address] 2020-07-23 2020-07-23 Emergency E ANNABELLE, [facility] [id number] [facility] 16:54:00 18:17:00 NICHELLE 2020-03-09 2020-03-09 Outpatient SHIVA, [facility] [id number] [facility] 11:08:00 23:59:00 LUCIEN 2018-07-28 2018-07-28 Outpatient [facility] [id number] [facility] 01:39:00 01:39:00 Results Test Description Test Time Test Comments Results Result Comments Source COVID 19 INHOUSE AG 2021-12-27 13:24:00 Test Item Value Reference Range Interpretation Comme nts COVID 19 INHOUSE AG (test code = NEGATIVE Negative Per excellence specialist, negative [id number]) results should be treated aspresumptive a nd, [...] a nd symptoms consistent with COVID-19. PROTHROMBIN [id number] 12:35:00 Test Item Value Reference Range Interpretation [...] (to prevent recurrent infar ct). THROMBOPLASTIN TIME [id number] 12:35:00 Test Item Value Reference Range Interpretation Comments THROMBOPLASTIN TIME PARTIAL 32.1 SECONDS 26-35 N (test code = PTT) BASIC METABOLIC [id number] 11:27:00 Test Item Value Reference Range Interpretation [...] CA) 9.4 MG/DL 8.5-10.1 N CBC W/AUTO [id number] 11:16:00 Test Item Value Reference Range Interpretation [...] code NO DIFF/SCN CRITERIA = MDIFF) URINALYSIS [id number] 10:02:00 Test Item Value Reference Range Interpretation [...] Specimen Type: Clean Catch- XR CHEST 1 [id number] 09:57:[address] [facility] : 1955 Sex: F Name: BOZENA MARSH [facility] : 1955 Age/S: 66 / F [address] [facility] [place] Unit #: [id number] Loc: [place] [address] Phys: Gama Gabriel MD Acct: [id number] Dis Date: Status: PRE [facility] PHONE #: [phone] Exam Date: 12/27/2021 0957 FAX #: Reason: PREOP EXAMS: CPT: [id number] XR CHEST 1 V 08205 Fluoro Time: DAP (Gy m2): Air Kerma [...] signed by: Armand Ramirez M.D. CC: Gama Gabriel MD; Elvia Arauz MD PAGE 1 Signed Report Name: BOZENA MARSH Hidalgo : 03/1955 Age/S: 66 / F [address] [address] [place] Unit #: [id number] Loc: [place] [address] Phys: Gama Gabriel MD Acct: [id number] Dis Date: Status: PRE SDC PHONE #: [phone] Exam Date: 12/27/2021956 FAX #: Reason: PREOP EXAMS: CPT: [id number] XR CHEST 1 V 39507 Fluoro Time: DAP (Gy m2): Air Kerma (mGy): (Continued) Technologist: Enedelia Salter RT(R) Trnscb Date/Time: 12/27/2021 (0957) t.SDR.HPD Orig Print D/T: S: 12/27/2021 (100) PAGE 2 Signed Report Urinalysis macro (dipstick) panel - [id number] 15:03:00 Test Item Value Reference Range Interpretation Comments Leukocytes (test code = Leukocytes) Small Nitrite (test code = Nitrite) negative Urobilinogen (test code = .2 Urobilinogen) Protein (test code = Protein) Trace pH (test code = pH) 7.0 Blood (test code = Blood) Moderate Specific [place] (test code = 1.015 Specific [place]) Ketone (test code = Ketone) Trace Bilirubin (test code = Bilirubin) Negative Glucose (test code = Glucose) Negative Appearance (test code = Appearance) Turbid Color (test code = Color) Yellow [place] [facility] (dipstick) panel - Urine 2021-10-21 15:03:00 Test Item Value Reference Range Interpretation Comments Leukocytes (test code = Leukocytes) Small Nitrite (test code = Nitrite) negative Urobilinogen (test code = .2 Urobilinogen) Protein (test code = Protein) Trace pH (test code = pH) 7.0 Blood (test code = Blood) Moderate Specific [place] (test code = 1.015 Specific [place]) Ketone (test code = Ketone) Trace Bilirubin (test code = Bilirubin) Negative Glucose (test code = Glucose) Negative Appearance (test code = Appearance) Turbid Color (test code = Color) Yellow [facility] strep group A, [id number] 14:56:00 Test Item Value Reference Range Interpretation Comments Strep (test code = Strep) negative [facility] strep group A, [id number] 14:56:00 Test Item Value Reference Range Interpretation Comments Strep (test code = Strep) negative [facility]-CoV-2 (COVID-19) Ag [Presence] in Respiratory specimen by Rapid [id number] 14:55:00 Test Item Value Reference Range Interpretation Comments SARS CoV 2 (test code = SARS CoV 2) negative [facility]-CoV-2 (COVID-19) Ag [Presence] in Respiratory specimen by Rapid [id number] 14:55:00 Test Item Value Reference Range Interpretation Comments SARS CoV 2 (test code = SARS CoV 2) negative [facility] urinalysis [id number] 19:36:00 Test Item Value Reference Range Interpretation Comments Color urine, POC (test Yellow code = 6481801) Clarity urine, POC (test Clear code = 8106821) Glucose urine, POC (test Negative Negative code = 7501149) Bilirubin urine, POC Negative Negative (test code = 3343937) Ketones urine, POC (test Negative Negative code = 7349176) Specific gravity urine, 1.005-1.030 POC (test code = 6540514) Blood urine, POC (test Trace Negative A code = 3243622) pH urine, POC (test code See_Comment [A utomated message] = 6310894) The system [employer] generated this result transmitted ref erence range: 5.0, 5.5 , 6.0, 6.5, 7.0, 7.5, 8.0, 8.5. The refere nce range was not u sed to interpret this result as normal/abnor mal. Protein urine, POC (test Negative Negative code = 7237483) Urobilinogen urine, POC <2.0 See_Comment [Au tomated message] (test code = 8212972) The sy stem which generated this result transmitted ref erence range: <=2.0. T he reference range was not used to int erpret this result as normal/abnormal . Nitrite urine, POC (test Negative Negative code = 4278089) Leukocyte esterase Negative Negative urine, POC (test code = 9390998) Lab Interpretation (test Abnormal code = 93844-8) [facility] BLADDER SCAN/[id number] 19:36:00 Test Item Value Reference Range Interpretation Comments Volume (test code = 8632104) [facility] urinalysis [id number] 19:36:00 Test Item Value Reference Range Interpretation Comments Color urine, POC (test Yellow code = 5639886) Clarity urine, POC (test Clear code = 7175682) Glucose urine, POC (test Negative Negative code = 7764385) Bilirubin urine, POC Negative Negative (test code = 0263500) Ketones urine, POC (test Negative Negative code = 1183498) Specific gravity urine, 1.005-1.030 POC (test code = 9701644) Blood urine, POC (test Trace Negative A code = 6020585) pH urine, POC (test code See_Comment [A utomated message] = 4431394) The system [employer] generated this result transmitted ref erence range: 5.0, 5.5 , 6.0, 6.5, 7.0, 7.5, 8.0, 8.5. The refere nce range was not u sed to interpret this result as normal/abnor mal. Protein urine, POC (test Negative Negative code = 2716158) Urobilinogen urine, POC <2.0 See_Comment [Au tomated message] (test code = 2124405) The sy stem which generated this result transmitted ref erence range: <=2.0. T he reference range was not used to int erpret this result as normal/abnormal . Nitrite urine, POC (test Negative Negative code = 6691883) Leukocyte esterase Negative Negative urine, POC (test code = 5828897) Lab Interpretation (test Abnormal code = 63773-7) [facility] BLADDER SCAN/[id number] 19:36:00 Test Item Value Reference Range Interpretation Comments Volume (test code = 7789710) [facility] urinalysis [id number] 19:36:00 Test Item Value Reference Range Interpretation Comments Color urine, POC (test Yellow code = 9445532) Clarity urine, POC (test Clear code = 4739912) Glucose urine, POC (test Negative Negative code = 7107061) Bilirubin urine, POC Negative Negative (test code = 3575912) Ketones urine, POC (test Negative Negative code = 7247606) Specific gravity urine, 1.005-1.030 POC (test code = 6118529) Blood urine, POC (test Trace Negative A code = 7589628) pH urine, POC (test code See_Comment [A utomated message] = 5483527) The system [employer] generated this result transmitted ref erence range: 5.0, 5.5 , 6.0, 6.5, 7.0, 7.5, 8.0, 8.5. The refere nce range was not u sed to interpret this result as normal/abnor mal. Protein urine, POC (test Negative Negative code = 0239914) Urobilinogen urine, POC <2.0 See_Comment [Au tomated message] (test code = 2840808) The sy stem which generated this result transmitted ref erence range: <=2.0. T he reference range was not used to int erpret this result as normal/abnormal . Nitrite urine, POC (test Negative Negative code = 1533384) Leukocyte esterase Negative Negative urine, POC (test code = 3803494) Lab Interpretation (test Abnormal code = 08085-0) [facility] BLADDER SCAN/[id number] 19:36:00 Test Item Value Reference Range Interpretation Comments Volume (test code = 0741806) [facility] urinalysis [id number] 19:36:00 Test Item Value Reference Range Interpretation Comments Color urine, POC (test Yellow code = 0547044) Clarity urine, POC (test Clear code = 0241332) Glucose urine, POC (test Negative Negative code = 3741133) Bilirubin urine, POC Negative Negative (test code = 1786065) Ketones urine, POC (test Negative Negative code = 7723806) Specific gravity urine, 1.005-1.030 POC (test code = 0328612) Blood urine, POC (test Trace Negative A code = 5656461) pH urine, POC (test code See_Comment [A utomated message] = 1884851) The system [employer] generated this result transmitted ref erence range: 5.0, 5.5 , 6.0, 6.5, 7.0, 7.5, 8.0, 8.5. The refere nce range was not u sed to interpret this result as normal/abnor mal. Protein urine, POC (test Negative Negative code = 1479609) Urobilinogen urine, POC <2.0 See_Comment [Au tomated message] (test code = 9830803) The sy stem which generated this result transmitted ref erence range: <=2.0. T he reference range was not used to int erpret this result as normal/abnormal . Nitrite urine, POC (test Negative Negative code = 4426005) Leukocyte esterase Negative Negative urine, POC (test code = 2607349) Lab Interpretation (test Abnormal code = 49030-1) [facility] BLADDER SCAN/[id number] 19:36:00 Test Item Value Reference Range Interpretation Comments Volume (test code = 4696326) [facility] urinalysis [id number] 19:36:00 Test Item Value Reference Range Interpretation Comments Color urine, POC (test Yellow code = 3799811) Clarity urine, POC (test Clear code = 9651658) Glucose urine, POC (test Negative Negative code = 4861390) Bilirubin urine, POC Negative Negative (test code = 6445098) Ketones urine, POC (test Negative Negative code = 1181429) Specific gravity urine, 1.005-1.030 POC (test code = 2817578) Blood urine, POC (test Trace Negative A code = 5506990) pH urine, POC (test code See_Comment [A utomated message] = 6508097) The system [employer] generated this result transmitted ref erence range: 5.0, 5.5 , 6.0, 6.5, 7.0, 7.5, 8.0, 8.5. The refere nce range was not u sed to interpret this result as normal/abnor mal. Protein urine, POC (test Negative Negative code = 7048336) Urobilinogen urine, POC <2.0 See_Comment [Au tomated message] (test code = 5947205) The sy stem which generated this result transmitted ref erence range: <=2.0. T he reference range was not used to int erpret this result as normal/abnormal . Nitrite urine, POC (test Negative Negative code = 9763301) Leukocyte esterase Negative Negative urine, POC (test code = 6745080) Lab Interpretation (test Abnormal code = 13417-6) [facility] BLADDER SCAN/[id number] 19:36:00 Test Item Value Reference Range Interpretation Comments Volume (test code = 4104621) [facility] [id number] 00:00:00 Test Item Value Reference Range Interpretation Comments Bacteria identified in Urine by no growth Culture (test code = 630-4) [facility] 2021-07-24 00:00:00 Test Item Value Reference Range Interpretation Comments Bacteria identified in Urine by no growth Culture (test code = 630-4) [facility] [id number] 00:00:00 Test Item Value Reference Range Interpretation Comments written authorization (test code = comment written authorization) [facility] 2021-06-29 00:00:00 Test Item Value Reference Range Interpretation Comments Bacteria identified in Urine by no growth Culture (test code = 630-4) [facility] 2021-06-29 00:00:00 Test Item Value Reference Range Interpretation Comments Bacteria identified in Urine by no growth Culture (test code = 630-4) [facility] 2021-06-29 00:00:00 Test Item Value Reference Range Interpretation Comments Bacteria identified in Urine by no growth Culture (test code = 630-4) [facility] 2021-06-29 00:00:00 Test Item Value Reference Range Interpretation Comments Bacteria identified in Urine by no growth Culture (test code = 630-4) [facility]) [facility] - Urine 2021-06-27 16:17:00 Test Item Value Reference Range Interpretation Comments Leukocytes (test code = Small Leukocytes) Nitrite (test code = negative Nitrite) Urobilinogen (test code = .2 Urobilinogen) Protein (test code = Negative Protein) pH (test code = pH) 7.5 Blood (test code = Blood) Non-Hemolyzed: Trace Specific [place] (test 1.000 code = Specific [place]) Ketone (test code = Negative Ketone) Bilirubin (test code = Negative Bilirubin) Glucose (test code = Negative Glucose) Appearance (test code = Clear Appearance) Color (test code = Color) Pale Yellow [facility] - Urine 2021-06-27 16:17:00 Test Item Value Reference Range Interpretation Comments Leukocytes (test code = Small Leukocytes) Nitrite (test code = negative Nitrite) Urobilinogen (test code = .2 Urobilinogen) Protein (test code = Negative Protein) pH (test code = pH) 7.5 Blood (test code = Blood) Non-Hemolyzed: Trace Specific [place] (test 1.000 code = Specific [place]) Ketone (test code = Negative Ketone) Bilirubin (test code = Negative Bilirubin) Glucose (test code = Negative Glucose) Appearance (test code = Clear Appearance) Color (test code = Color) Pale Yellow [facility] W Auto Differential panel - [id number] 00:00:00 Test Item Value Reference Range Interpretation [...] = 706-2) immature cells (test code = senior operations analyst immature cells) Neutrophils [#/volume] in Blood 3.7 [...] Blood by Automated count (test code = 86712-6) Immature granulocytes 0.0 x10e3/uL 0.0-0.1 [#/volume] in Blood by Automated count (test code = 26305-7) Nucleated erythrocytes/100 senior operations analyst leukocytes [Ratio] in Blood by Automated count (test code = 87014-5) Morphology [Interpretation] in senior operations analyst Blood Narrative (test code = 73389-7) [facility] 2000 [facility] - Serum or [id number] 00:00:00 Test Item Value Reference Range Interpretation [...] 96-106 Serum or Plasma (test code = 5-0) Carbon dioxide, total 21 mmol/L 20-29 [Moles/volume] in Serum or Plasma (test code = 2027-) Calcium [Mass/volume] in Serum 10.0 mg/dL 8.7-10.3 or Plasma (test code = 72789-6) Protein [Mass/volume] in Serum 6.5 g/dL 6.0-8.5 or Plasma (test code = 2885-2) Albumin [Mass/volume] in Serum 4.4 g/dL 3.8-4.8 or Plasma (test code = 1751-7) Globulin [Mass/volume] in 2.1 g/dL 1.5-4.5 Serum by calculation (test code = 38286-9) Albumin/Globulin [Mass Ratio] 2.1 1.2-2.2 in Serum or Plasma (test code = 1759-0) Bilirubin.total [Mass/volume] <0.2 0.0-1.2 in Serum or Plasma (test code = 1974-) Alkaline phosphatase 86 IU/L 44-121 [Enzymatic activity/volume] in Serum or Plasma (test code = 6768-6) Aspartate aminotransferase 24 IU/L 0-40 [Enzymatic activity/volume] in Serum or Plasma (test code = 1920-8) Alanine aminotransferase 37 IU/L 0-32 H [Enzymatic activity/volume] in Serum or Plasma (test code = 1742-6) [facility]ropin [Units/volume] in Serum or Plasma by Detection limit <= 0.005 mIU/[id number] 00:00:00 Test Item Value Reference Range Interpretation Comments Thyrotropin [Units/volume] in 2.820 uIU/mL 0.450-4.500 Serum or Plasma by Detection limit <= 0.005 mIU/L (test code = 61423-6) [facility]Thyroxine (T4) free [Mass/volume] in Serum or [id number] 00:00:00 Test Item Value Reference Range Interpretation Comments Thyroxine (T4) free [Mass/volume] 1.04 NG/dL 0.82-1.77 in Serum or Plasma (test code = 3024-7) [facility] test [id number] 00:00:00 Test Item Value Reference Range Interpretation Comments dear doctor, (test code = dear comment doctor,) [facility]Lip[facility] 1996 panel - Serum or [id number] 00:00:00 Test Item Value Reference Range Interpretation [...] or Plasma by calculation (test code = 51929-2) Cholesterol in LDL [Mass/volume] in 156 mg/dL 0-99 H Serum or Plasma by calculation (test code = 01880-1) Laboratory comment [Text] in Report senior operations analyst Narrative (test code = 15509-6) Cholesterol in LDL/Cholesterol in 3.0 ratio 0.0-3.2 HDL [Mass Ratio] in Serum or Plasma (test code = 23384-5) [facility]Helicobacter pylori IgA and IgG and IgM [Interpretation] in Serum or [id number] 00:00:00 Test Item Value Reference Range Interpretation Comments Helicobacter pylori IgG Ab 0.45 index value 0.00-0.79 [Units/volume] in Serum by Immunoassay (test code = 5176-3) Helicobacter pylori IgA Ab <9.0 0.0-8.9 [Units/volume] in Serum (test code = 7901-2) Helicobacter pylori IgM Ab <9.0 0.0-8.9 [Units/volume] in Serum (test code = 7903-8) [facility]Folate+Cyanocobalamin [Interpretation] in Serum or [id number] 00:00:00 Test Item Value Reference Range Interpretation Comments Cobalamin (Vitamin B12) 920 pg/mL 232-1245 [Mass/volume] in Serum or Plasma (test code = 2132-9) Folate [Mass/volume] in Serum or >20.0 >3.0 Plasma (test code = 2284-8) [facility]25-Hydroxyvitamin D3+25-Hydroxyvitamin D2 [Mass/volume] in Serum or [id number] 00:00:00 Test Item Value Reference Range Interpretation Comments 25-Hydroxyvitamin 36.5 NG/mL 30.0-100.0 D3+25-Hydroxyvitamin D2 [Mass/volume] in Serum or Plasma (test code = 76048-6) [facility]Ferritin [Mass/volume] in Serum or Plasma 2021-06-25 00:00:00 Test Item Value Reference Range Interpretation Comments Ferritin [Mass/volume] in Serum or 96 NG/mL 15-150 Plasma (test code = 2276-4) [facility] HospitalUrinalysis macro (dipstick) panel - Urine 2021-04-09 13:17:00 Test Item Value Reference Range Interpretation Comments Leukocytes (test code = Small Leukocytes) Nitrite (test code = negative Nitrite) Urobilinogen (test code = .2 Urobilinogen) Protein (test code = Negative Protein) pH (test code = pH) 5.0 Blood (test code = Blood) Hemolyzed: Trace Specific [place] (test code 1.015 = Specific [place]) Ketone (test code = Ketone) Negative Bilirubin (test code = Negative Bilirubin) Glucose (test code = Negative Glucose) [facility] (COVID-19) Ag [Presence] in Respiratory specimen by Rapid [id number] 16:26:00 Test Item Value Reference Range Interpretation Comments SARS CoV 2 (test code = SARS CoV 2) negative [facility]-CoV-2 (COVID-19) Ag [Presence] in Respiratory specimen by Rapid [id number] 16:26:00 Test Item Value Reference Range Interpretation Comments SARS CoV 2 (test code = SARS CoV 2) negative [facility]-CoV-2 (COVID-19) Ag [Presence] in Respiratory specimen by Rapid [id number] 16:26:00 Test Item Value Reference Range Interpretation Comments SARS CoV 2 (test code = SARS CoV 2) negative [facility]-CoV-2 (COVID-19) Ag [Presence] in Respiratory specimen by Rapid [id number] 16:26:00 Test Item Value Reference Range Interpretation Comments SARS CoV 2 (test code = SARS CoV 2) negative [facility] (A+B)2021-02-25 16:10:00 Test Item Value Reference Range Interpretation Comments FLU A (test code = FLU A) negative FLU B (test code = FLU B) [facility]25 16:10:00 Test Item Value Reference Range Interpretation Comments FLU A (test code = FLU A) negative FLU B (test code = FLU B) negative [facility] (A+B)2021-02-25 16:10:00 Test Item Value Reference Range Interpretation Comments FLU A (test code = FLU A) negative FLU B (test code = FLU B) [facility]2021-02-25 16:10:00 Test Item Value Reference Range Interpretation Comments FLU A (test code = FLU A) negative FLU B (test code = FLU B) negative [facility] strep group A, [id number] 16:09:00 Test Item Value Reference Range Interpretation Comments Strep (test code = Strep) [facility], [id number] 16:09:00 Test Item Value Reference Range Interpretation Comments Strep (test code = Strep) [facility], [id number] 16:09:00 Test Item Value Reference Range Interpretation Comments Strep (test code = Strep) positive [facility] strep group A, [id number] 16:09:00 Test Item Value Reference Range Interpretation Comments Strep (test code = Strep) positive [facility]Heterophile Ab [Presence] in Blood by Hmsycutfthp2722-29-28 15:33:00 Test Item Value Reference Range Interpretation Comments [facility] (test code = [facility]) negative [facility]Heter[facility] Ab [Presence] in Blood by Wmrrnbvpgwy1204-60-73 15:33:00 Test Item Value Reference Range Interpretation Comments [facility] (test code = [facility]) negative [facility]Iron and Iron binding capacity panel - Serum or [id number] 00:00:00 Test Item Value Reference Range Interpretation [...] Serum or Plasma (test code = 2502-3) [facility]Folate+Cyanocobalamin [Interpretation] in Serum or [id number] 00:00:00 Test Item Value Reference Range Interpretation Comments Cobalamin (Vitamin B12) 971 pg/mL 232-1245 [Mass/volume] in Serum or Plasma (test code = 2132-9) Folate [Mass/volume] in Serum or >20.0 >3.0 Plasma (test code = 2284-8) [facility] HospitalPhosphate [Mass/volume] in Serum or Plasma 2020-07-27 00:00:00 Test Item Value Reference Range Interpretation Comments Phosphate [Mass/volume] in Serum or 3.0 mg/dL 3.0-4.3 Plasma (test code = 2777-1) [facility] HospitalErythrocyte sedimentation rate by Westergren [id number] 00:00:00 Test Item Value Reference Range Interpretation Comments Erythrocyte sedimentation rate by 4 mm/HR 0-40 Westergren method (test code = 4537-7) [facility] HospitalMagnesium [Mass/volume] in Serum or Plasma 2020-07-27 00:00:00 Test Item Value Reference Range Interpretation Comments Magnesium [Mass/volume] in Serum or 2.2 mg/dL 1.6-2.3 Plasma (test code = 13485-8) [facility] HospitalIron and Iron binding capacity panel - Serum or [id number] 00:00:00 Test Item Value Reference Range Interpretation [...] Serum or Plasma (test code = 2502-3) [facility] HospitalFolate+Cyanocobalamin [Interpretation] in Serum or [id number] 00:00:00 Test Item Value Reference Range Interpretation Comments Cobalamin (Vitamin B12) 971 pg/mL 232-1245 [Mass/volume] in Serum or Plasma (test code = 2132-9) Folate [Mass/volume] in Serum or >20.0 >3.0 Plasma (test code = 2284-8) [facility] HospitalPhosphate [Mass/volume] in Serum or Plasma 2020-07-27 00:00:00 Test Item Value Reference Range Interpretation Comments Phosphate [Mass/volume] in Serum or 3.0 mg/dL 3.0-4.3 Plasma (test code = 2777-1) [facility] HospitalErythrocyte sedimentation rate by Westergren [id number] 00:00:00 Test Item Value Reference Range Interpretation Comments Erythrocyte sedimentation rate by 4 mm/HR 0-40 Westergren method (test code = 4537-7) [facility] HospitalMagnesium [Mass/volume] in Serum or Plasma 2020-07-27 00:00:00 Test Item Value Reference Range Interpretation Comments Magnesium [Mass/volume] in Serum or 2.2 mg/dL 1.6-2.3 Plasma (test code = 72165-0) [facility]G2018-10-[facility] 11:22:00 RUN DATE: 01/01/18 [facility] - LAB *LIVE* PAGE 1 RUN TIME: 1122 Specimen Inquiry RUN USER: INTERFACE PATIENT: BOZENA MARSH LOC: EVA U #: [id number] AGE/SX: 62/F ROOM: RE12/31/17REG DR: Raz Gaspar III : 57 BED: DIS: STATUS: [facility] [place] TLOC: SPEC #: [id number] RECD: 12/31/17 STATUS: HENRY DELGADO #: [id number] SHYANN: 12/31/[address]: Raz Gaspar III, MD ENTERED: 12/31/17 SP TYPE: SURG OTHR DR: No Primary or Family PhysicianORDERED: SURG PATH LVL 1, SURGPATH LVL 4 COPIES TO: No Primary [place] [id number] [facility] [address] [place] [address] HISTOLOGY: TISSUE ID BLK PCS ANAIS LEV PROCEDURE DISPOSITION ____ ___ ___ ___ NASAL TURBINATE A 1 1 NASAL SEPTUM, N B 1 1 PROCEDURES: SURG PATH LVL 1 (01/01/18) SURG PATH LVL 4 (01/01/18) TISSUES: A.NASAL TURBINATE, NOS - BILATERAL INFERIOR TURBINATES B. NASAL SEPTUM, NOS - SEPTUM CPT CODES CPT CODE(S): 23293 , 09340 , , , , , FINAL DIAGNOSIS A. Inferior turbinate, bilateral, endoscopic sinus surgery: SINUS CONTENTS CONSISTENT WITH CHRONIC SINUSITIS B. Nasal septum, septoplasty: BONE AND CARTILAGE (GROSS ONLY) GROSS DESCRIPTION A. Bilateral inferior turbinates. Received in formalin are irregular fragments of sauceda-brown soft tissue admixed with dark brown blood clots, 2.7 x 1.8 x 1.0 cm in aggregate. [employer] Designer sections submitted as A. B. Septum. Received in formalin are multiple irregular fragments of cartilage CONTINUED ON NEXT PAGE RUN DATE: 01/01/18 [facility] - LAB *LIVE* PAGE 2 RUN TIME: 1122 Specimen Inquiry RUN USER: INTERFACE SPEC #: [facility]:[id number] PATIENT: BOZENA MARSH #[id number] (Continued) GROSS DESCRIPTION (Continued) and bones, 5.0 x 3.5 x 0.7 cm in aggregate. The specimen is photographed for gross identification only. ba/nr Grossing performed at [facility], [address] [place] [address], [address], [place] [address]. Pricing Director: Ralph Dash M.D. MICROSCOPIC DESCRIPTION A. Bilateral inferior turbinates. Fragments of respiratory epithelium lined mucosa. There arebenign mucus glands and a chronic inflammatory infiltrate. Fragments of unremarkable cartilage and bone present. No evidence of malignancy. B. Septum. For gross identification only. /doug Signed SIGNATURE ON FILE Kel Chatterjee 01/01/18 1122 END OF REPORT
[2022-02-19] MEDS ORDERED: NA CHLORIDE 0.9% 1,000 ML ONE (07:31)
[2022-02-19] MEDS ORDERED: OXYMETAZOLINE HCL 0.05% 15ML NAS ONE (07:50)
[2022-02-19 08:11] LABS: Absolute Lymphocytes (CBC) 1.3 K/uL (0.7-4.9); Hematocrit 45.5 % (36.0-45.0); Lymphocytes % 23.7 % (15.3-44.8); MPV 8.6 fL (7.6-11.3); RBC Red Blood Cell Count 5.05 M/uL (3.86-4.86)
[2022-02-19 08:28] LABS: Albumin 3.6 g/dL (3.4-5.0); Magnesium 2.1 mg/dL (1.8-2.4); Potassium 3.8 mmol/L (3.5-5.1); Protein, Total 6.8 g/dL (6.4-8.2)
--- NOTE | 2022-02-19 09:44 | RAD REPORT ---
EXAM DESCRIPTION: CTAbdomen Pelvis W Contrast - 02/19/2022 9:32 am CLINICAL HISTORY: Abdominal pain. diarrhea COMPARISON: Abdomen Pelvis W Contrast dated 01/03/2022; Abdomen Pelvis W Contrast dated 07/25/2020 ; Abdomen Pelvis W Contrast dated 12/12/2019; Abdomen Pelvis W Contrast dated 01/02/2019 TECHNIQUE: Biphasic CT imaging of the abdomen and pelvis was performed with 100 ml non-ionic IV cont rast. All CT scans are performed using dose optimization technique as appropriate and may include automated exposure control or mA/KV adjustment according to patient size. FINDINGS: The lung bases are clear.Cholecystectomy clips. The liver demonstrates several benign liver cysts. Spleen, pancreas, adrenal glands and kidneys are w ithin normal limits. Multiple bilateral renal cysts. No bowel obstruction, free air, free fluid or abscess. Sigmoid diverticulosis without diverticulitis. Moderate stool is present in the rectosigmoid colon. The appendix is normal. No evidence of signifi cant lymphadenopathy. Moderate lumbar degenerative changes. IMPRESSION: No acute intra-abdominal or pelvic finding.
--- NOTE | 2022-02-19 09:58 | ER ---
Nurse's Notes [facility] Name: Tracey Rodriguez Age: 66 yrs Sex: Female : 1955 Arrival Date: 02/19/2022 Time: 07:14 Bed 20 Private MD: Diagnosis: Diarrhea, unspecified Presentation: 02/19 07:17 Chief complaint: Patient states: N/V/D since yesterday. Came in for dehydration, ll1 similar to last visit. Coronavirus screen: Vaccine status: Patient reports being unvaccinated. Client denies travel out of the [place] in the last 14 days. diarrhea, fatigue, nausea, vomiting. Client presents with at least one sign or symptom that may indicate coronavirus-19. Standard/surgical mask placed on the client. Ebola Screen: Patient denies travel to an Ebola-affected area in the 21 days before illness onset. Initial Sepsis Screen: Does the patient meet any 2 criteria? No. Patient's initial sepsis screen is negative. Does the patient have a suspected source of infection? Yes: Acute abdominal pain. Risk Assessment: Do you want to hurt yourself or someone else? Patient reports no desire to harm self or others. Onset of symptoms was February 18, 2022. 07:17 Method Of Arrival: Ambulatory ll1 07:17 Acuity: ANUJA 3 ll1 Triage Assessment: 07:17 General: Appears uncomfortable, Behavior is calm, cooperative. Pain: Denies pain. ll1 Neuro: Reports headache. Neuro: Reports dizziness, weakness. GI: Reports diarrhea, nausea, vomiting, "dehydration". Historical: - Allergies: 07:16 anti-inflammatory (all); ll1 07:16 Ciprofloxacin; ll1 07:16 fluoroquinolones; ll1 07:16 Levaquin; ll1 07:16 Sulfa (Sulfonamide Antibiotics); ll1 - PMHx: 07:16 Diverticulitis; ll1 - PSHx: 07:16 carpal tunnal repair; Colectomy; Ligation of fallopian tube; ll1 - Immunization history:: Adult Immunizations unknown. - Social history:: Smoking status: Patient denies any tobacco usage or history of. - Family history:: not pertinent. Screenin:57 Abuse screen: Denies threats or abuse. Nutritional screening: No deficits noted. jd3 Tuberculosis screening: No symptoms or risk factors identified. Fall Risk Ambulatory Aid- None/Bed Rest/Nurse Assist (0 pts). Gait- Normal/Bed Rest/Wheelchair (0 pts) Mental Status- Oriented to own ability (0 pts). Total Cullen Fall Scale indicates No Risk (0-24 pts). Assessment: 07:30 General: Appears in no apparent distress. comfortable, Behavior is calm, cooperative, jd3 appropriate for age. Pain: Complains of pain in abdomen Quality of pain is described as aching, crampy. Neuro: Cody Agitation-Sedation Scale (RASS): 0 - Alert and Calm Level of Consciousness is awake, alert, obeys commands, Oriented to person, place, time, situation. Cardiovascular: Denies chest pain, Capillary refill < 3 seconds Patient's skin is warm and dry. Respiratory: Airway is patent Respiratory effort is even, unlabored, Respiratory pattern is regular, symmetrical, Denies cough, shortness of breath. GI: Abdomen is non-distended, Abd is soft and non tender X 4 quads. Reports cramping, diarrhea, nausea. : No signs and/or symptoms were reported regarding the genitourinary system. EENT: Reports nasal congestion. Derm: Skin is intact, Skin is dry, Skin is normal, Skin temperature is warm. Musculoskeletal: Circulation, motion, and sensation intact. Range of motion: intact in all extremities. 08:30 Reassessment: Patient appears in no apparent distress at this time. No changes from jd3 previously documented assessment. Patient and/or family updated on plan of care and expected duration. Pain level reassessed. Patient is alert, oriented x 3, equal unlabored respirations, skin warm/dry/pink. 09:30 Reassessment: Patient appears in no apparent distress at this time. No changes from kc6 previously documented assessment. Patient and/or family updated on plan of care and expected duration. Pain level reassessed. Patient is alert, oriented x 3, equal unlabored respirations, skin warm/dry/pink. Patient denies pain at this time. Vital Signs: 07:17 BP 161 / 99; Pulse 80; Resp 16; Temp 97.9; Pulse Ox 96% on R/A; Weight 89.36 kg; Height ll1 5 ft. 3 in. (160.02 cm); Pain 0/10; 09:05 BP 144 / 77; Pulse 70; Resp 18 S; Temp 97.8(O); Pulse Ox 100% on R/A; Pain 0/10; kc6 07:17 Body Mass Index 34.90 (89.36 kg, 160.02 cm) ll1 ED Course: 07:14 Patient arrived in ED. rg4 07:15 Arm band placed on Patient placed in an exam room, on a stretcher. ll1 07:19 Dony Wilkes MD is Attending Physician. rt 07:20 Bran Norton, DOLORES is Primary Nurse. jd3 07:23 Triage completed. ll1 07:43 Missed attempt(s): 20 gauge in left antecubital area. Bleeding controlled, band aid jd3 applied, catheter tip intact. 07:47 Inserted saline lock: 22 gauge in right antecubital area, using aseptic technique. jd3 Blood collected. 07:56 Patient has correct armband on for positive identification. Placed in gown. Bed in low jd3 position. Call light in reach. Side rails up X 1. Adult w/ patient. Pulse ox on. NIBP on. Warm blanket given. 09:33 CT Abd/Pelvis - IV Contrast Only In Process Unspecified. EDMS 10:03 No provider procedures requiring assistance completed. IV discontinued, intact, kc6 bleeding controlled, No redness/swelling at site. Pressure dressing applied. Administered Medications: 07:48 Drug: NS 0.9% 1000 ml Route: IV; Rate: 1000 ml; Site: right antecubital; jd3 08:48 Follow up: Response: No adverse reaction; IV Status: Completed infusion; IV Intake: kc6 1000ml 07:54 Drug: Afrin (oxymetazoline) Drops (0.05 %) 2 sprays Route: Intranasal; Site: both nares;jd3 Medication: 07:56 VIS not applicable for this client. jd3 Intake: 08:48 IV: 1000ml; Total: 1000ml. kc6 Outcome: 09:58 Discharge ordered by . rt 10:03 Discharged to home ambulatory, with significant other. kc6 10:03 Condition: stable 10:03 Discharge instructions given to patient, family, Instructed on discharge instructions, Demonstrated understanding of instructions. 10:04 Patient left the ED. kc6 Signatures: Dispatcher [employer] EDMS Viola Dotson rg4 Bran Norton, RN RN jd3 Austin Mayfield RN RN ll1 Berenice Duarte, RN RN kc6 Dony Wilkes MD MD rt
--- NOTE | 2022-02-19 09:59 | EDPHYS ---
Physician Documentation [facility] Name: Tracey Rodriguez Age: 66 yrs Sex: Female : 1955 Arrival Date: 02/19/2022 Time: 07:14 Bed 20 Private MD: [place] Physician Dony Wilkes HPI: 02/19 07:51 This 66 yrs old Female presents to ER via Ambulatory with complaints of rt Nausea/Vomiting/Diarrhea. 07:51 Onset: The symptoms/episode began/occurred yesterday. Possible causes: unknown. The rt symptoms are aggravated by nothing. The symptoms are alleviated by nothing. Associated signs and symptoms: Pertinent negatives: abdominal pain. Severity of symptoms: At their worst the symptoms were mild. The patient has experienced similar episodes in the past. Patient presents to the ED stating that she feels that she is dehydrated. She reports a history of IBS, states that she has had diarrhea since yesterday. She reports some nausea but she associates this with a postnasal drip. Denies any abdominal pain, vomiting, other acute complaints. Symptoms are mild in severity, no other aggravating or alleviating factors. Denies hematochezia, melena.. Historical: - Allergies: 07:16 anti-inflammatory (all); ll1 07:16 Ciprofloxacin; ll1 07:16 fluoroquinolones; ll1 07:16 Levaquin; ll1 07:16 Sulfa (Sulfonamide Antibiotics); ll1 - PMHx: 07:16 Diverticulitis; ll1 - PSHx: 07:16 carpal tunnal repair; Colectomy; Ligation of fallopian tube; ll1 - Immunization history:: Adult Immunizations unknown. - Social history:: Smoking status: Patient denies any tobacco usage or history of. - Family history:: not pertinent. ROS: 07:51 Constitutional: Negative for fever, chills, and weight loss, Eyes: Negative for injury, rt pain, redness, and discharge, Neck: Negative for injury, pain, and swelling, Cardiovascular: Negative for chest pain, palpitations, and edema, Respiratory: Negative for shortness of breath, cough, wheezing, and pleuritic chest pain, MS/Extremity: Negative for injury and deformity, Skin: Negative for injury, rash, and discoloration, Neuro: Negative for headache, weakness, numbness, tingling, and seizure, Psych: Negative for depression, anxiety, suicide ideation, homicidal ideation, and hallucinations. 07:51 ENT: Positive for rhinorrhea, Negative for sore throat. 07:51 Abdomen/GI: Positive for nausea, diarrhea. Exam: 07:51 Constitutional: This is a well developed, well nourished patient who is awake, alert, rt and in no acute distress. Head/Face: Normocephalic, atraumatic. Eyes: Pupils equal round and reactive to light, extra-ocular motions intact. Lids and lashes normal. Conjunctiva and sclera are non-icteric and not injected. Cornea within normal limits. Periorbital areas with no swelling, redness, or edema. ENT: Nares patent. No nasal discharge, no septal abnormalities noted. Tympanic membranes are normal and external auditory canals are clear. Oropharynx with no redness, swelling, or masses, exudates, or evidence of obstruction, uvula midline. Mucous membranes moist. Neck: Trachea midline, no thyromegaly or masses palpated, and no cervical lymphadenopathy. Supple, full range of motion without nuchal rigidity, or vertebral point tenderness. No Meningismus. Chest/axilla: Normal chest wall appearance and motion. Nontender with no deformity. No lesions are appreciated. Cardiovascular: Regular rate and rhythm with a normal S1 and S2. No gallops, murmurs, or rubs. Normal PMI, no JVD. No pulse deficits. Respiratory: Lungs have equal breath sounds bilaterally, clear to auscultation and percussion. No rales, rhonchi or wheezes noted. No increased work of breathing, no retractions or nasal flaring. Abdomen/GI: Soft, non-tender, with normal bowel sounds. No distension or tympany. No guarding or rebound. No evidence of tenderness throughout. Skin: Warm, dry with normal turgor. Normal color with no rashes, no lesions, and no evidence of cellulitis. MS/ Extremity: Pulses equal, no cyanosis. Neurovascular intact. Full, normal range of motion. Neuro: Awake and alert, GCS 15, oriented to person, place, time, and situation. Cranial nerves II-XII grossly intact. Motor strength 5/5 in all extremities. Sensory grossly intact. Cerebellar exam normal. Normal gait. Psych: Awake, alert, with orientation to person, place and time. Behavior, mood, and affect are within normal limits. Vital Signs: 07:17 BP 161 / 99; Pulse 80; Resp 16; Temp 97.9; Pulse Ox 96% on R/A; Weight 89.36 kg; Height ll1 5 ft. 3 in. (160.02 cm); Pain 0/10; 09:05 BP 144 / 77; Pulse 70; Resp 18 S; Temp 97.8(O); Pulse Ox 100% on R/A; Pain 0/10; kc6 07:17 Body Mass Index 34.90 (89.36 kg, 160.02 cm) ll1 MDM: 07:21 Patient medically screened. rt 10:01 Differential diagnosis: Nonspecific abd pain, diverticulitis, viral gastroenteritis. rt Data reviewed: vital signs, nurses notes, old medical records, lab test result(s), radiologic studies. ED course: Patient presents to the ED with diarrhea, she states that she thinks she is dehydrated, symptoms are improving with IV fluids in the ED. She denies any pain, patient request CT scan of all diverticulitis which was negative. Her labs are benign. No further work-up is indicated at this time, she is stable for outpatient care.. 02/19 07:28 Order name: CBC with Diff; Complete Time: 08:29 rt 02/19 07:28 Order name: CMP; Complete Time: 08:29 rt 02/19 07:28 Order name: Magnesium; Complete Time: 08:29 rt 02/19 08:50 Order name: CT Abd/Pelvis - IV Contrast Only; Complete Time: 09:53 rt 02/19 07:50 Order name: Labs - recollect needed: Please recollect green and lavender em1 tubes-hemolyzed; Complete Time: 08:06 Administered Medications: 07:48 Drug: NS 0.9% 1000 ml Route: IV; Rate: 1000 ml; Site: right antecubital; jd3 08:48 Follow up: Response: No adverse reaction; IV Status: Completed infusion; IV Intake: kc6 1000ml 07:54 Drug: Afrin (oxymetazoline) Drops (0.05 %) 2 sprays Route: Intranasal; Site: both nares;jd3 Disposition Summary: 02/19/22 09:58 Discharge Ordered Location: Home rt Problem: an acute exacerbation rt Symptoms: have improved rt Condition: Stable rt Diagnosis - Diarrhea, unspecified rt Followup: rt - With: Private Physician - When: 2 - 3 days - Reason: Discharge Instructions: - Discharge Summary Sheet rt - Diarrhea, Adult rt - Irritable Bowel Syndrome, Adult rt Forms: - Medication Reconciliation Form rt - Thank You Letter rt - Antibiotic Education rt - Prescription Opioid Use rt Signatures: Dispatcher [employer] Awais Medrano em1 Bran Norton RN RN [email or web address] Austin Mayfield RN RN ll1 Dony Wilkes MD MD rt Berenice Duarte RN [id number]
[2022-02-19 10:38] VITALS: BP 144/77; TEMP 97.8; O2SAT 100
== END 2022-02-19 10:04 | disposition home or self-care (01) ==
LOC: ER 07:09
DX: R19.7 Diarrhea, unspecified (principal); R11.2 Nausea with vomiting, unspecified; Z88.1 Allergy status to other antibiotic agents; Z88.2 Allergy status to sulfonamides; Z88.8 Allergy status to other drugs, medicaments and biological substances
CPT/HCPCS: 85025; 36415; 83735; 80053; 74177; 96360; 99284; Q9967; J7030

== ENCOUNTER 2022-02-19 20:22 | Emergency (ER) | payer OTHER ==
--- OUTSIDE RECORDS SUMMARY | 2022-02-19 20:29 | XMS REPORT | Continuity of Care Document ---
:1955 Author Organization [facility] t Address [address] [place] [address] Care Team Providers Name Role Phone Silvio Babin MD, Shiela Primary Care Physician [phone] LUCIEN SHANNON Attending Clinician Unavailable KHALIDA Attending Clinician Unavailable Emily Vazquez MD Attending Clinician [phone] Elvia Arauz Attending Clinician Unavailable Willy Lopez Attending Clinician [phone] CHIVO Attending Clinician Unavailable Emily Longoria Attending Clinician [phone] MATTHEW NAGY Attending Clinician Unavailable Kaitlin Block Attending Clinician [phone] LUCIEN SHANNON Attending Clinician Unavailable JONATHAN Attending Clinician Unavailable GISEL Attending Clinician Unavailable Provider , Not In System Attending Clinician Unavailable Ginna Lord MA Attending Clinician Unavailable Roula Finn Attending Clinician [phone] SHIELA RASMUSSEN Attending Clinician Unavailable NICHELLE ALANIS Attending Clinician Unavailable SISSOUMYA_Newton Admitting Clinician Unavailable Elvia Arauz Admitting Clinician Unavailable CHRETIELIZABETH_F Admitting Clinician Unavailable LEVIDONYA Admitting Clinician Unavailable GISEL Admitting Clinician Unavailable Payers Payer Name Policy Type Policy Number Effective Date Expiration Date S giselle AETNA CHOICE POS [id number] 2002 2002 II 00:00:00 00:00:00 MEDICARE B-[place]: [id number] 2021 [employer] 00:00:00 AETNA (INDEMNITY) [id number] 2002 00:00:00 MEDICARE [place]: [id number] 2021 [employer] 00:00:00 - [facility] MEDICARE PART A [id number] 2021 AND B 00:00:00 AETNA (POS) [id number] 2020 00:00:00 Problems Condition Condition Condition Status Onset Resolution Last Treating Co mments Source Name Details Category Date Date Treatment Clinician Date Contact Contact Problem Active [place] dermatitis Dermatitis 8-12 [facility] 00:00: ty 00 [facility] Pruritic Pruritic Problem Active [facility] rash Rash 8-12 [facility] 00:00: ty 00 [facility] Ganglion Ganglion Problem Active [facility] cyst of Cyst of 812 [facility] left hand Left Hand 00:00: ty 00 [facility] Depressive Depressive Problem Active S [facility] disorder Disorder 7 Commun i 00:00: ty 00 [facility] Conjunctiv Conjunctiv Problem Active [facility] itis itis 7 [facility]i 00:00: ty 00 [facility] Acute Acute Problem Active [place] sinusitis Sinusitis 7- Comm uni 00:00: ty 00 [facility] Urinary Urinary Problem Active [place] tract Tract 7- Communi infectious Infectious 00:00: ty disease Disease 00 [facility] Diverticul Diverticul Problem Active S weeny [...] l s to drug NSAIDS Allergy Active [place] (NON-DRAGAN to Communi ROIDAL substanc ty ANTI-INF e Hospita LAMMATOR l Y DRUG) Clinics QUINOLON Allergy Active [place] ES to Communi substanc ty e Hospita l Clinics Family History Family Member Diagnosis Comments Start Date Stop Date Source Natural father Heart disease [facility] Natural mother Cancer [facility] Social History Social Habit Start Date Stop Date Quantity Comments Source Alcohol intake 2021-08-21 2021-08-21 Current [facility] 00:00:00 00:00:00 non-drinker of Hospital alcohol (finding) Tobacco use and 2017-06-05 2017-06-05 Smokeless tobacco [facility] exposure 00:00:00 00:00:00 non-user Hospital Sex Ass[birth year] At [birth year] [facility] 00:00[facility]:00 Hospital Smoking Status Start Date Stop Date Source Never smoked tobacco [facility] Medications Ordered Filled Start Stop Current Ordering Indication Dosage Frequency Signature Comments Components Source Medication Medication Date Date Medication? Clinician (SIG) Name Name Kenalog 40 Kenalog 40 No Q1D Kenalog 40 [place] mg/mL mg/mL 8-12 mg/mL Communi suspension suspension [...] Insert 1 g M ethodi (ESTRACE) 08-22 05-[address] 0.01 % (0.1 00:00: [...] QD Take 5 mg M ethodi XL 08-09-[address] (DITROPAN-X 00:00: 00:00 daily. [facility] L) 5 MG 24 00 :00 l hr tablet oxybutynin 2021- No 5mg QD Take 5 mg M ethodi XL 5 05-[address] (DITROPAN-X 00:00: 00:00 [...] l hr tablet dexamethaso dexamethaso No dexamethas [place] ne sodium ne sodium 3-03 one sodium [facility] phosphate phosphate 15:10: phosphate ty 10 mg/mL 10 mg/mL 00 10 mg/mL [facility] injection injection injection l solutionTak solutionTak solutionTa Clinics e 10 mg by e 10 mg by ke 10 mg injection injection by route. route. injection route. peg peg No peg [place] 3350-electr 3350-electr 3-03 3350-elect Communi olytes 236 olytes 236 00:00: rolytes ty gram-22.74 gram-22.74 00 236 [facility] gram-6.74 gram-6.74 gram-22.74 l gram-5.86 gram-5.86 gram-6.74 Clinics gram gram gram-5.86 solution solution gram MIX AND MIX AND solution DRINK DRINK MIX AND DIRECTED DIRECTED DRINK DIRECTED lidocaine lidocaine 2020-03 No Q1D lidocaine [place] (PF) 10 (PF) 10 0-18 (PF) 10 [...] Kenalog 40 2020-03 No Q1D Kenalog 40 [place] mg/mL mg/mL 0-18 mg/mL Communi suspension suspension [...] mcg/actuati route on nasal daily. spray fluticasone Yes 50ug QD 1 spray Met [...] spray acyclovir 5 acyclovir 5 No acyclovir [place] % topical % topical 5 % Commu ni ointment ointment topical ty APPLY TO APPLY TO ointment [facility] THE THE APPLY TO l AFFECTED AFFECTED THE Clinics AREA EVERY AREA EVERY AFFECTED 2 HOURS 2 HOURS AREA EVERY DURING DURING 2 HOURS AWAKE HOURS AWAKE HOURS DURING FOR 4 DAYS FOR 4 DAYS AWAKE HOURS FOR 4 DAYS amoxicillin amoxicillin No amoxicilli [place] 500 500 n 500 Communi mg-potassiu mg-potassiu mg-potassi ty m m um [facility] clavulanate clavulanate clavulanat l 125 mg [...] ty kit TEST kit TEST Test kit [facility] DIRECTED DIRECTED TEST l TODAY TODAY DIRECTED Clinics TODAY cephalexin cephalexin No cephalexin [place] 500 mg 500 mg 500 mg Communi capsule capsule capsule ty TAKE 1 TAKE 1 TAKE 1 Hospita CAPSULE BY CAPSULE BY CAPSULE BY l MOUTH TWICE MOUTH TWICE MOUTH Clinics DAILY DAILY TWICE DAILY estradiol estradiol No estradiol [place] 0.01% (0.1 0.01% (0.1 0.01% (0.1 Communi mg/gram) mg/gram) mg/gram) ty vaginal vaginal vaginal Hospit a cream cream cream l INSERT 1 INSERT 1 INSERT 1 Cli nics GRAM INTO GRAM INTO GRAM INTO VAGINA VAGINA VAGINA TWICE A TWICE A TWICE A WEEK AT WEEK AT WEEK AT NIGHT. NIGHT. NIGHT. fluconazole fluconazole No fluconazol [place] 150 mg 150 mg e 150 mg Communi tablet tablet tablet ty Hospita l Clinics hydroxyzine hydroxyzine No hydroxyzin [place] HCl 25 mg HCl 25 mg e [...] Kenalog 40 No 60mg Q1D Kenalog 40 [place] mg/mL mg/mL mg/mL [facility] suspension suspension suspension ty for for for Hospita injection injection injection l Take 60 mg Take 60 mg Take 60 mg Clinics every day every day every day by by by injection injection injection route. route. route. metoprolol metoprolol No metoprolol [place] succinate succinate succinate Communi ER 25 mg ER 25 mg ER 25 mg ty tablet,exte tablet,exte tablet,ext Hospita nded nded ended l release 24 release 24 release 24 Clinics hr TAKE 1 hr TAKE 1 hr TAKE 1 TABLET BY TABLET BY TABLET BY MOUTH EVERY MOUTH EVERY MOUTH DAY DAY EVERY DAY metronidazo metronidazo No metronidaz [place] le 500 mg le 500 mg ole 500 mg Communi tablet TAKE tablet TAKE tablet ty 1 TABLET BY 1 TABLET BY TAKE 1 Hospita MOUTH EVERY MOUTH EVERY TABLET BY l 8 HOURS FOR 8 HOURS FOR MOUTH Clinics 7 DAYS 7 DAYS EVERY 8 HOURS FOR 7 DAYS omeprazole omeprazole No omeprazole [place] 20 mg 20 mg 20 mg Communi capsule,del capsule,del capsule,de ty ayed ayed layed Hospita release release release l TAKE 1 TAKE 1 TAKE 1 Clinics CAPSULE BY CAPSULE BY CAPSULE BY MOUTH DAILY MOUTH DAILY MOUTH DAILY ondansetron ondansetron No ondansetro [place] 4 mg 4 mg n 4 mg [...] 6 DAYS NEEDED paroxetine paroxetine No paroxetine [place] ER 25 mg ER 25 mg ER 25 mg Com ricci tablet,exte tablet,exte tablet,ext ty nded nded ended Hospita release 24 release 24 release 24 l hr TAKE 1 hr TAKE 1 hr TAKE 1 Clinics TABLET BY TABLET BY TABLET BY MOUTH EVERY MOUTH EVERY MOUTH DAY DAY EVERY DAY tobramycin tobramycin No tobramycin [place] 0.3 0.3 0.3 Communi %-dexametha %-dexametha %-dexameth [...] FOR 5 DAYS triamcinolo triamcinolo No triamcinol [place] ne ne one Communi acetonide acetonide acetonide [...] FOR 7 DAYS trimethopri trimethopri No trimethopr [place] m 100 mg m 100 mg im 100 mg [facility] tablet TAKE tablet TAKE tablet ty 1 TABLET BY 1 TABLET BY TAKE 1 Hospita MOUTH EVERY MOUTH EVERY TABLET BY l DAY DAY MOUTH Clinics EVERY DAY valacyclovi valacyclovi No valacyclov [place] r 1 gram r 1 gram ir 1 gram [facility] tablet TAKE tablet TAKE tablet ty 1 TABLET BY 1 TABLET BY TAKE 1 Hospita MOUTH TWICE MOUTH TWICE TABLET BY l DAILY prn DAILY prn MOUTH Clin ics TWICE DAILY prn amoxicillin amoxicillin No amoxicilli [place] [phone] 875 Communi mg-potassiu mg-potassiu mg-potassi ty m m um Hospita clavulanate clavulanate clavulanat l 125 mg 125 mg e 125 mg Clinics tablet tablet tablet Flagyl 500 Flagyl 500 No 1 Q8H Flagyl 500 [place] mg tablet mg tablet mg tablet Communi Take 1 Take 1 Take 1 ty tablet tablet tablet Hospita every 8 every 8 every 8 l hours by hours by hours by Cli nics oral route. oral route. oral route. prednisone prednisone No 1 BID prednisone [place] 20 mg 20 mg 20 mg Communi tablet Take tablet Take tablet ty 1 tablet 1 tablet Take 1 Hospi ta twice a day twice a day tablet l by oral by oral twice a Clinic s route for 5 route for 5 day by days. days. oral route for 5 days. Valtrex 1 Valtrex 1 No 1 TID Valtrex 1 [place] gram tablet gram tablet gram [facility] Take 1 Take 1 tablet ty tablet 3 tablet 3 Take 1 Hospi ta times a day times a day tablet 3 l by oral by oral times a Clinic s route for 7 route for 7 day by days. days. oral route for 7 days. Vistaril 25 Vistaril 25 No 1capsul Q7H Vistaril [place] mg capsule mg capsule e(s) 25 mg [facility]i Take 1 Take 1 capsule ty capsule capsule Take 1 Hospita every 6-8 every 6-8 capsule l hours by hours by every 6-8 Cl inics oral route oral route hours by as needed. as needed. oral route as needed. dicyclomine dicyclomine No 1 TID dicyclomin [place] 20 mg 20 mg e 20 mg Communi tablet Take tablet Take tablet ty 1 tablet 3 1 tablet 3 Take 1 H ospita times a day times a day tablet 3 l by oral by oral times a Clinic s route as route as day by needed. needed. oral route as needed. hyoscyamine hyoscyamine No hyoscyamin [place] 0.125 mg 0.125 mg e 0.125 mg C [facility]i sublingual sublingual sublingual ty tablet tablet tablet Hospita l Clinics ivermectin ivermectin No 2 BID ivermectin [place] 3 mg tablet 3 mg tablet 3 mg [facility] Take 2 Take 2 tablet ty tablets tablets Take 2 Hospita twice a day twice a day tablets l by oral by oral twice a Clinic s route. route. day by oral route. Denavir 1 % Denavir 1 % No Denavir 1 [place] topical topical % topical Comm uni cream APPLY cream APPLY cream ty TO THE TO THE APPLY TO Hospita AFFECTED AFFECTED THE l AREA(S) BY AREA(S) BY AFFECTED Clinics TOPICAL TOPICAL AREA(S) BY ROUTE EVERY ROUTE EVERY TOPICAL 2 HOURS 2 HOURS ROUTE DURING DURING EVERY 2 WAKING WAKING HOURS HOURS FOR 4 HOURS FOR 4 DAYS WAKING HOURS FOR 4 DAYS No [place] Once Daily Once Daily Once Daily Communi [...] DAILY valacyclovi valacyclovi No 1 TID valacyclov [place] r 1 gram r 1 gram ir [...] % Denavir 1 % No Denavir 1 [place] topical topical % topical Comm uni cream APPLY cream [facility]PL[facility] THE l AREA(S) BY AREA(S) BY AFFECTED Clinics TOPICAL TOPICAL AREA(S) BY ROUTE EVERY ROUTE EVERY TOPICAL 2 HOURS 2 HOURS ROUTE DURING DURING EVERY 2 WAKING WAKING HOURS HOURS FOR 4 HOURS FOR 4 DAYS WAKING HOURS FOR 4 DAYS No [place] Once Daily Once Daily Once Daily Communi [...] DAILY valacyclovi valacyclovi No 1 TID valacyclov [place] r 1 gram r 1 gram ir [...] days. acyclovir 5 acyclovir 5 No acyclovir [place] % topical % topical 5 % Commu [...] DAYS cefdinir cefdinir No 1capsul Q12H cefdinir [place] 300 mg 300 mg e(s) 300 mg Communi capsule capsule capsule ty Take 1 Take 1 Take 1 Hospita capsule capsule capsule l every 12 every 12 every 12 Cli nics hours by hours by hours by oral route. oral route. oral route. Denavir 1 % Denavir 1 % No Denavir 1 [place] topical topical % topical Comm uni cream APPLY cream APPLY cream ty TO THE TO THE APPLY TO Hospita AFFECTED AFFECTED THE l AREA(S) BY AREA(S) BY AFFECTED Clinics TOPICAL TOPICAL AREA(S) BY ROUTE EVERY ROUTE EVERY TOPICAL 2 HOURS 2 HOURS ROUTE DURING DURING EVERY 2 WAKING WAKING HOURS HOURS FOR 4 HOURS FOR 4 WAKING HOURS FOR 4 DAYS hyoscyamine hyoscyamine No hyoscyamin [place] 0.125 mg 0.125 mg e 0.125 mg [facility] disintegrat disintegrat disintegra ty ing tablet ing tablet ting [facility] tablet l Clinics Pataday Pataday No Pataday [place] Once Daily Once Daily Once Daily Commun[facility] Relief 0.2 Relief 0.2 Relief 0.2 ty % eye drops % eye drops % eye Hospita INSTILL 1 INSTILL 1 drops l DROP INTO DROP INTO INSTILL 1 Clinics AFFECTED AFFECTED DROP INTO EYE(S) BY EYE(S) BY AFFECTED OPHTHALMIC OPHTHALMIC EYE(S) BY ROUTE ONCE ROUTE ONCE OPHTHALMIC DAILY DAILY ROUTE ONCE DAILY sulfamethox sulfamethox No sulfametho [place] azole 800 azole 800 xazole 800 Communi mg-trimetho mg-trimetho mg-trimeth ty prim 160 mg prim 160 mg oprim 160 Hospita tablet tablet mg tablet l [facility] valacy[facility] No 1 TID valacyclov [place] r 1 gram r 1 gram ir [...] days. acyclovir 5 acyclovir 5 No acyclovir [place] % topical % topical 5 % Commu ni ointment ointment topical ty APPLY TO APPLY TO ointment [facility] THE THE APPLY TO l AFFECTED AFFECTED THE Clinics AREA EVERY AREA EVERY AFFECTED 2 HOURS 2 HOURS AREA EVERY DURING DURING 2 HOURS AWAKE HOURS AWAKE HOURS DURING FOR 4 DAYS FOR 4 DAYS AWAKE HOURS FOR 4 DAYS carbamazepi carbamazepi No carbamazep [place] ne ER 100 ne ER 100 ine ER 100 Communi mg mg mg ty tablet,exte tablet,exte tablet,ext Hospita nded nded ended l release,12 release,12 release,12 Clinics hr TAKE 1 hr TAKE 1 hr TAKE 1 TABLET BY TABLET BY TABLET BY MOUTH EVERY MOUTH EVERY MOUTH 12 HOURS 12 HOURS EVERY 12 HOURS hyoscyamine hyoscyamine No hyoscyamin [place] 0.125 mg 0.125 mg e 0.125 mg [facility] disintegrat disintegrat disintegra ty ing tablet ing tablet ting [facility] tablet l [facility] valacyclovi No valacyclov [place] r 1 gram r 1 gram ir 1 gram [facility] tablet TAKE tablet TAKE tablet ty 1 TABLET BY 1 TABLET BY TAKE 1 Hospita MOUTH EVERY MOUTH EVERY TABLET BY l DAY FOR 30 DAY FOR 30 MOUTH Cl inics DAYS DAYS EVERY DAY FOR 30 DAYS acyclovir 5 acyclovir 5 No acyclovir [place] % topical % topical 5 % Commu [...] DAYS clonidine clonidine No 1 Q1D clonidine [place] HCl ER 0.1 HCl ER 0.1 HCl [...] evening. DripDrop DripDrop No 1packet Q1D DripDrop [place] 305 mg-175 305 mg-175 (s) 305 mg-175 Communi mg-70 mg mg-70 mg mg-70 mg ty oral powder oral powder oral H ospita packet Take packet Take powder l 1 packet 1 packet packet Clini cs every day every day Take 1 by oral by oral packet route as route as every day needed. needed. by oral route as needed. hyoscyamine hyoscyamine No hyoscyamin [place] 0.125 mg 0.125 mg e 0.125 mg [facility] disintegrat disintegrat disintegra ty ing tablet ing tablet ting [facility] tablet l Clinics Kenalog 40 Kenalog 40 No .5mL Q1D Kenalog 40 [place] mg/mL mg/mL mg/mL [facility] suspension suspension suspension ty for for for Hospita injection injection injection l Take 0.5 mL Take 0.5 mL Take 0.5 Clinics every day every day mL every by by day by injection injection injection route for 1 route for 1 route for day. day. 1 day. lidocaine lidocaine No 2mL Q1D lidocaine [place] (PF) 10 (PF) 10 (PF) 10 Commun i mg/mL (1 %) mg/mL (1 %) mg/mL (1 ty injection injection %) Hospi ta solution solution injection l Take 2 mL Take 2 mL solution C linics every day every day Take 2 mL by by every day injection injection by route. route. injection route. pantoprazol pantoprazol No 1 Q1D pantoprazo [place] e 40 mg e 40 mg le 40 mg Commu ni tablet,hodan tablet,hodan tablet,del ty yed release yed release ayed H ospita Take 1 Take 1 release l tablet tablet Take 1 Clinics every day every day tablet by oral by oral every day route. route. by oral route. valacyclovi valacyclovi No valacyclov [place] r 1 gram r 1 gram ir 1 gram [facility] tablet TAKE tablet TAKE tablet ty 1 TABLET BY 1 TABLET BY TAKE 1 Hospita MOUTH EVERY MOUTH EVERY TABLET BY l DAY FOR 30 DAY FOR 30 MOUTH Cl inics DAYS DAYS EVERY DAY FOR 30 DAYS Artificial Artificial No 1drop(s Q1D Artificial [place] Tears Tears ) Tears Communi (polyvinyl (polyvinyl (polyvinyl ty alcohol) alcohol) alcohol) [facility] 1.4 % eye 1.4 % eye 1.4 % eye l drops Apply drops Apply drops Clinics 1 drop 1 drop Apply 1 every day every day drop every by by day by ophthalmic ophthalmic ophthalmic route. route. route. azithromyci azithromyci No 1 Q1D azithromyc [place] n 500 mg n 500 mg in 500 mg [facility] tablet Take tablet Take tablet ty 1 tablet 1 tablet Take 1 Hospi ta every day every day tablet l by oral by oral every day Clin ics route for 5 route for 5 by oral days. days. route for 5 days. DripDrop DripDrop No 1packet Q1D DripDrop [place] 305 mg-175 305 mg-175 (s) 305 mg-175 Communi mg-70 mg mg-70 mg mg-70 mg ty oral powder oral powder oral H ospita packet Take packet Take powder l 1 packet 1 packet packet Clini cs every day every day Take 1 by oral by oral packet route as route as every day needed. needed. by oral route as needed. hyoscyamine hyoscyamine No hyoscyamin [place] 0.125 mg 0.125 mg e 0.125 mg [facility] disintegrat disintegrat disintegra ty ing tablet ing tablet ting [facility] tablet l Clinics pantoprazol pantoprazol No pantoprazo [place] e 40 mg e 40 mg le 40 mg Commu ni tablet,hodan tablet,hodan tablet,del ty yed release yed release ayed H ospita TAKE 1 TAKE 1 release l TABLET BY TABLET BY TAKE 1 Cli nics MOUTH EVERY MOUTH EVERY TABLET BY DAY DAY MOUTH EVERY DAY acetylcyste acetylcyste No 1capsul BID acetylcyst [place] ine 600 mg ine 600 mg e(s) eine 600 Communi capsule capsule mg capsule ty Take 1 Take 1 Take 1 Hospita capsule capsule capsule l twice a day twice a day twice a Clinics by oral by oral day by route. route. oral route. Artificial Artificial No 1drop(s Q1D Artificial [place] Tears Tears ) Tears [facility] (polyvinyl (polyvinyl (polyvinyl ty alcohol) alcohol) alcohol) [facility] 1.4 % eye 1.4 % eye 1.4 % eye l drops Apply drops Apply drops Clinics 1 drop 1 drop Apply 1 every day every day drop every by by day by ophthalmic ophthalmic ophthalmic route. route. route. Effexor XR Effexor XR No 1capsul Q1D Effexor XR [place] 75 mg 75 mg e(s) 75 mg Communi capsule,ext capsule,ext capsule,ex ty ended ended tended Hospita release release release l Take 1 Take 1 Take 1 Clinics capsule capsule capsule every day every day every day by oral by oral by oral route for route for route for 90 days. 90 days. 90 days. hyoscyamine hyoscyamine No hyoscyamin [place] 0.125 mg 0.125 mg e 0.125 mg [facility] disintegrat disintegrat disintegra ty ing tablet ing tablet ting [facility] tablet l Clinics pantoprazol pantoprazol No pantoprazo [place] e 40 mg e 40 mg le 40 mg Commu ni tablet,hodan tablet,hodan tablet,del ty yed release yed release ayed H ospita TAKE 1 TAKE 1 release l TABLET BY TABLET BY TAKE 1 Cli nics MOUTH EVERY MOUTH EVERY TABLET BY DAY DAY MOUTH EVERY DAY acetylcyste acetylcyste No 1capsul BID acetylcyst [place] ine 600 mg ine 600 mg e(s) eine 600 Communi capsule capsule mg capsule ty Take 1 Take 1 Take 1 Hospita capsule capsule capsule l twice a day twice a day twice a Clinics by oral by oral day by route. route. oral route. Artificial Artificial No 1drop(s Q1D Artificial [place] Tears Tears ) Tears [facility] (polyvinyl (polyvinyl (polyvinyl ty alcohol) alcohol) alcohol) [facility] 1.4 % eye 1.4 % eye 1.4 % eye l drops Apply drops Apply drops Clinics 1 drop 1 drop Apply 1 every day every day drop every by by day by ophthalmic ophthalmic ophthalmic route. route. route. Effexor XR Effexor XR No 1capsul Q1D Effexor XR [place] 75 mg 75 mg e(s) 75 mg Communi capsule,ext capsule,ext capsule,ex ty ended ended tended Hospita release release release l Take 1 Take 1 Take 1 Clinics capsule capsule capsule every day every day every day by oral by oral by oral route for route for route for 90 days. 90 days. 90 days. hyoscyamine hyoscyamine No hyoscyamin [place] 0.125 mg 0.125 mg e 0.125 mg [facility] disintegrat disintegrat disintegra ty ing tablet ing tablet ting [facility] tablet l [facility] pantoprazol pantoprazol No pantoprazo [place] e 40 mg e 40 mg le 40 mg Commu ni tablet,hodan tablet,hodan tablet,del ty yed release yed release ayed H ospita TAKE 1 TAKE 1 release l TABLET BY TABLET BY TAKE 1 Cli nics MOUTH EVERY MOUTH EVERY TABLET BY DAY DAY MOUTH EVERY DAY acyclovir acyclovir No 1 Q1D acyclovir [place] 400 mg 400 mg 400 mg Communi tablet Take tablet Take tablet ty 1 tablet 1 tablet Take 1 Hospi ta every day every day tablet l by oral by oral every day Clin ics route for route for by oral 30 days. 30 days. route for 30 days. amoxicillin amoxicillin No amoxicilli [place] [phone] n 875 Communi mg-potassiu mg-potassiu mg-potassi ty m m Hospita clavulanate clavulanate clavulanat l 125 mg 125 mg e 125 mg Clinics tablet TAKE tablet TAKE tablet 1 TABLET BY 1 TABLET BY TAKE 1 MOUTH EVERY MOUTH EVERY TABLET BY 12 HOURS 12 HOURS MOUTH EVERY 12 HOURS metronidazo metronidazo No metronidaz [place] le 500 mg le 500 mg ole 500 mg Communi tablet TAKE tablet TAKE tablet ty 1 TABLET BY 1 TABLET BY TAKE 1 Hospita MOUTH EVERY MOUTH EVERY TABLET BY l 8 HOURS 8 HOURS MOUTH Clinics EVERY 8 HOURS ondansetron ondansetron No ondansetro [place] 4 mg 4 mg n 4 mg Communi disintegrat disintegrat disintegra ty ing tablet ing tablet ting [facility] tablet l [facility] Xifaxan 550 Xifaxan 550 No 1 BID Xifaxan [place] mg tablet mg tablet 550 mg Com ricci Take 1 Take 1 tablet ty tablet tablet Take 1 Hospita twice a day twice a day tablet l by oral by oral twice a Clinic s route. route. day by oral route. acyclovir acyclovir No acyclovir [place] 400 mg 400 mg 400 mg Communi [...] by oral route. metronidazo metronidazo No metronidaz [place] le 500 mg le 500 mg ole 500 mg Communi tablet TAKE tablet TAKE tablet ty 1 TABLET BY 1 TABLET BY TAKE 1 Hospita MOUTH EVERY MOUTH EVERY TABLET BY l 8 HOURS 8 HOURS MOUTH Clinics EVERY 8 HOURS ondansetron ondansetron No ondansetro [place] 4 mg 4 mg n 4 mg Communi disintegrat disintegrat disintegra ty ing tablet ing tablet ting [facility] tablet l Clinics pantoprazol pantoprazol No pantoprazo [place] e 40 mg e 40 mg le 40 mg Commu ni tablet,hodan tablet,hodan tablet,del ty yed release yed release ayed H ospita release l Clinics peg peg No peg [place] 3350-electr 3350-electr 3350-elect Communi olytes 236 olytes 236 rolytes ty gram-22.74 gram-22.74 236 [facility] gram-6.74 gram-6.74 gram-22.74 l gram-5.86 gram-5.86 gram-6.74 Clinics gram gram gram-5.86 solution solution gram MIX AND MIX AND solution DRINK DRINK MIX AND DIRECTED DIRECTED DRINK DIRECTED sucralfate sucralfate No 1 QID sucralfate [place] 1 gram 1 gram 1 gram Communi tablet Take tablet Take tablet ty 1 tablet 4 1 tablet 4 Take 1 H ospita times a day times a day tablet 4 l by oral by oral times a Clinic s route. route. day by oral route. venlafaxine venlafaxine No venlafaxin [place] ER 75 mg ER 75 mg e ER 75 mg [facility] capsule,ext capsule,ext capsule,ex ty ended ended tended Hospita release 24 release 24 release 24 l hr hr hr Clinics Xifaxan 550 Xifaxan 550 No Xifaxan [place] mg tablet mg tablet 550 mg Com ricci Take 1 Take 1 tablet ty tablet tablet Take 1 Hospita twice a day twice a day tablet l by oral by oral twice a Clinic s route. route. day by oral route. dexamethaso dexamethaso No 10mg dexamethas [place] ne sodium ne sodium one sodium [facility] phosphate phosphate phosphate ty 10 mg/mL 10 mg/mL 10 mg/mL [facility] injection injection injection l solution solution solution Cli nics Take 10 mg Take 10 mg Take 10 mg by by by injection injection injection route. route. route. dicyclomine dicyclomine No 1 TID dicyclomin [place] 20 mg 20 mg e 20 mg [facility] tablet Take tablet Take tablet ty 1 tablet 3 1 tablet 3 Take 1 H ospita times a day times a day tablet 3 l by oral by oral times a Clinic s route as route as day by needed. needed. oral route as needed. gabapentin gabapentin No 1capsul BID gabapentin [place] 300 mg 300 mg e(s) 300 mg [facility] capsule capsule capsule ty Take 1 Take 1 Take 1 Hospita capsule capsule capsule l twice a day twice a day twice a Clinics by oral by oral day by route. route. oral route. montelukast montelukast No 1 Q1D montelukas [place] 10 mg 10 mg t 10 mg [facility] tablet Take tablet Take tablet ty 1 tablet 1 tablet Take 1 Hospi ta every day every day tablet l by oral by oral every day Clin ics route. route. by oral route. acyclovir 5 acyclovir 5 No acyclovir [place] % topical % topical 5 % Commu [...] Bactrim DS No 1 Q12H Bactrim DS [place] 800 mg-160 800 mg-160 800 mg-160 [facility] mg tablet mg tablet mg tablet ty Take 1 Take 1 Take 1 Hospita tablet tablet tablet l every 12 every 12 every 12 Cli nics hours by hours by hours by oral route oral route oral route for 10 for 10 for 10 days. days. days. diclofenac diclofenac No diclofenac [place] 1 % topical 1 % topical 1 [...] route. valacyclovi valacyclovi No 1 BID valacyclov [place] r 1 gram r 1 gram ir 1 gram [facility] tablet Take tablet Take tablet ty 1 tablet 1 tablet Take 1 Hospi ta twice a day twice a day tablet l by oral by oral twice a Clinic s route. route. day by oral route. acyclovir 5 acyclovir 5 No acyclovir [place] % topical % topical 5 % Commu ni ointment ointment topical ty APPLY TO APPLY TO ointment [facility] THE THE APPLY TO l AFFECTED AFFECTED THE Clinics AREA EVERY AREA EVERY AFFECTED 2 HOURS 2 HOURS AREA EVERY DURING DURING 2 HOURS AWAKE HOURS AWAKE HOURS DURING FOR 4 DAYS FOR 4 DAYS AWAKE HOURS FOR 4 DAYS diclofenac diclofenac No diclofenac [place] 1 % topical 1 % topical 1 % [facility] gel APPLY 2 gel APPLY 2 topical ty GRAMS GRAMS gel APPLY Hospita TOPICALLY TOPICALLY 2 GRAMS l TO THE TO THE TOPICALLY Clinic s AFFECTED AFFECTED TO THE AREA FOUR AREA FOUR AFFECTED TIMES DAILY TIMES DAILY AREA FOUR TIMES DAILY phenazopyri phenazopyri No phenazopyr [place] dine 200 mg dine 200 mg idine 200 [facility] tablet TAKE tablet TAKE mg tablet ty 1 TABLET BY 1 TABLET BY TAKE 1 Hospita MOUTH EVERY MOUTH EVERY TABLET BY l 8 HOURS 8 HOURS MOUTH Clinics EVERY 8 HOURS sulfamethox sulfamethox No sulfametho [place] azole 800 azole 800 xazole 800 [facility] mg-trimetho mg-trimetho mg-trimeth ty prim 160 mg prim 160 mg oprim 160 Hospita tablet TAKE tablet TAKE mg tablet l 1 TABLET BY 1 TABLET BY TAKE 1 Clinics MOUTH EVERY MOUTH EVERY TABLET BY 12 HOURS 12 HOURS MOUTH FOR 10 DAYS FOR 10 DAYS EVERY 12 HOURS FOR 10 DAYS valacyclovi valacyclovi No valacyclov [place] r 1 gram r 1 gram ir 1 gram [facility] tablet TAKE tablet TAKE tablet ty 1 TABLET BY 1 TABLET BY TAKE 1 Hospita MOUTH TWICE MOUTH TWICE TABLET BY l DAILY DAILY MOUTH Clinics TWICE DAILY acyclovir 5 acyclovir 5 No acyclovir [place] % topical % topical 5 % Commu ni ointment ointment topical ty APPLY TO APPLY TO ointment [facility] THE THE APPLY TO l AFFECTED AFFECTED THE Clinics AREA EVERY AREA EVERY AFFECTED 2 HOURS 2 HOURS AREA EVERY DURING DURING 2 HOURS AWAKE HOURS AWAKE HOURS DURING FOR 4 DAYS FOR 4 DAYS AWAKE HOURS FOR 4 DAYS cefuroxime cefuroxime No cefuroxime [place] axetil 500 axetil 500 axetil 500 [facility] mg tablet mg tablet mg tablet ty TAKE 1 TAKE 1 TAKE 1 Hospita TABLET BY TABLET BY TABLET BY l MOUTH EVERY MOUTH EVERY MOUTH Clinics 12 HOURS 12 HOURS EVERY 12 FOR 7 DAYS FOR 7 DAYS HOURS FOR 7 DAYS diclofenac diclofenac No diclofenac [place] 1 % topical 1 % topical 1 % [facility] gel APPLY 2 gel APPLY 2 topical ty GRAMS GRAMS gel APPLY Hospita TOPICALLY TOPICALLY 2 GRAMS l TO THE TO THE TOPICALLY Clinic s AFFECTED AFFECTED TO THE AREA FOUR AREA FOUR AFFECTED TIMES DAILY TIMES DAILY AREA FOUR TIMES DAILY dicyclomine dicyclomine No dicyclomin [place] 20 mg 20 mg e 20 mg [facility] tablet TAKE tablet TAKE tablet ty 1 TABLET BY 1 TABLET BY TAKE 1 Hospita MOUTH 4 MOUTH 4 TABLET BY l TIMES A DAY TIMES A DAY MOUTH 4 Clinics NEEDED NEEDED TIMES A DAY NEEDED phenazopyri phenazopyri No phenazopyr [place] dine 200 mg dine 200 mg idine 200 [facility] tablet TAKE tablet TAKE mg tablet ty 1 TABLET BY 1 TABLET BY TAKE 1 Hospita MOUTH EVERY MOUTH EVERY TABLET BY l 8 HOURS FOR 8 HOURS FOR MOUTH Clinics 2 DAYS 2 DAYS EVERY 8 HOURS FOR 2 DAYS sulfamethox sulfamethox No sulfametho [place] azole 800 azole 800 xazole 800 [facility] mg-trimetho mg-trimetho mg-trimeth ty prim 160 mg prim 160 mg oprim 160 Hospita tablet TAKE tablet TAKE mg tablet l 1 TABLET BY 1 TABLET BY TAKE 1 Clinics MOUTH EVERY MOUTH EVERY TABLET BY 12 HOURS 12 HOURS MOUTH FOR 10 DAYS FOR 10 DAYS EVERY 12 HOURS FOR 10 DAYS valacyclovi valacyclovi No valacyclov [place] r 1 gram r 1 gram ir 1 gram [facility] tablet TAKE tablet TAKE tablet ty 1 TABLET BY 1 TABLET BY TAKE 1 Hospita MOUTH TWICE MOUTH TWICE TABLET BY l DAILY DAILY MOUTH Clinics TWICE DAILY acyclovir 5 acyclovir 5 No acyclovir [place] % topical % topical 5 % Commu ni ointment ointment topical ty APPLY TO APPLY TO ointment [facility] THE THE APPLY TO l AFFECTED AFFECTED THE Clinics AREA EVERY AREA EVERY AFFECTED 2 HOURS 2 HOURS AREA EVERY DURING DURING 2 HOURS AWAKE HOURS AWAKE HOURS DURING FOR 4 DAYS FOR 4 DAYS AWAKE HOURS FOR 4 DAYS amoxicillin amoxicillin No amoxicilli [place] 500 500 n 500 [facility] mg-potassiu mg-potassiu [...] FOR 7 DAYS amoxicillin amoxicillin No amoxicilli [place] [phone] n 875 [facility] mg-potassiu mg-potassiu mg-potassi ty m m um Hospita clavulanate clavulanate clavulanat l 125 mg 125 mg e 125 mg Clinics tablet TAKE tablet TAKE tablet 1 TABLET BY 1 TABLET BY TAKE 1 MOUTH TWICE MOUTH TWICE TABLET BY DAILY FOR 7 DAILY FOR 7 MOUTH DAYS DAYS TWICE DAILY FOR 7 DAYS cefuroxime cefuroxime No cefuroxime [place] axetil 500 axetil 500 axetil 500 [facility] mg tablet mg tablet mg tablet ty TAKE 1 TAKE 1 TAKE 1 Hospita TABLET BY TABLET BY TABLET BY l MOUTH EVERY MOUTH EVERY MOUTH Clinics 12 HOURS 12 HOURS EVERY 12 FOR 7 DAYS FOR 7 DAYS HOURS FOR 7 DAYS diclofenac diclofenac No diclofenac [place] 1 % topical 1 % topical 1 % [facility] gel APPLY 2 gel APPLY 2 topical ty GRAMS GRAMS gel APPLY Hospita TOPICALLY TOPICALLY 2 GRAMS l TO THE TO THE TOPICALLY Clinic s AFFECTED AFFECTED TO THE AREA FOUR AREA FOUR AFFECTED TIMES DAILY TIMES DAILY AREA FOUR TIMES DAILY dicyclomine dicyclomine No dicyclomin [place] 20 mg 20 mg e 20 mg [facility] tablet TAKE tablet TAKE tablet ty 1 TABLET BY 1 TABLET BY TAKE 1 Hospita MOUTH 4 MOUTH 4 TABLET BY l TIMES A DAY TIMES A DAY MOUTH 4 Clinics NEEDED NEEDED TIMES A DAY NEEDED estradiol estradiol No estradiol [place] 0.01% (0.1 0.01% (0.1 0.01% (0.1 [facility] mg/gram) mg/gram) mg/gram) ty vaginal vaginal vaginal Hospit a cream cream cream l INSERT 1 INSERT 1 INSERT 1 Cli nics GRAM INTO GRAM INTO GRAM INTO VAGINA VAGINA VAGINA TWICE A TWICE A TWICE A WEEK AT WEEK AT WEEK AT NIGHT. NIGHT. NIGHT. fluconazole fluconazole No fluconazol [place] 150 mg 150 mg e 150 mg [facility] tablet TAKE tablet TAKE tablet ty 1 TABLET BY 1 TABLET BY TAKE 1 Hospita MOUTH EVERY MOUTH EVERY TABLET BY l 72 HOURS 72 HOURS MOUTH Clinic s EVERY 72 HOURS metoprolol metoprolol No metoprolol [place] succinate succinate succinate [facility] ER 25 mg ER 25 mg ER 25 mg ty tablet,exte tablet,exte tablet,ext Hospita nded nded ended l release 24 release 24 release 24 Clinics hr TAKE 1 hr TAKE 1 hr TAKE 1 TABLET BY TABLET BY TABLET BY MOUTH EVERY MOUTH EVERY MOUTH DAY DAY EVERY DAY nitrofurant nitrofurant No nitrofuran [place] oin oin toin [facility] monohydrate monohydrate monohydrat ty /macrocryst /macrocryst e/macrocry Hospita als 100 mg als 100 mg stals 100 l capsule capsule mg capsule Cli nics oxybutynin oxybutynin No oxybutynin [place] chloride ER chloride ER chloride [facility] 5 mg 5 mg ER 5 mg ty tablet,exte tablet,exte tablet,ext Hospita nded nded ended l release 24 release 24 release 24 Clinics hr TAKE 1 hr TAKE 1 hr TAKE 1 TABLET BY TABLET BY TABLET BY MOUTH EVERY MOUTH EVERY MOUTH DAY DAY EVERY DAY phenazopyri phenazopyri No phenazopyr [place] dine 200 mg dine 200 mg idine 200 [facility] tablet TAKE tablet TAKE mg tablet ty 1 TABLET BY 1 TABLET BY TAKE 1 Hospita MOUTH EVERY MOUTH EVERY TABLET BY l 8 HOURS FOR 8 HOURS FOR MOUTH Clinics 2 DAYS 2 DAYS EVERY 8 HOURS FOR 2 DAYS sulfamethox sulfamethox No sulfametho [place] azole 800 azole 800 xazole 800 Commun[facility] [...] Suprax 400 No 1capsul Q1D Suprax 400 [place] mg capsule mg capsule e(s) mg capsule [facility] Take 1 Take 1 Take 1 ty capsule capsule capsule Hospit a every day every day every day l by oral by oral by oral Clinic s route for 7 route for 7 route for days. days. 7 days. valacyclovi valacyclovi No valacyclov [place] r 1 gram r 1 gram ir 1 gram [facility] tablet TAKE tablet TAKE tablet ty 1 TABLET BY 1 TABLET BY TAKE 1 Hospita MOUTH TWICE MOUTH TWICE TABLET BY l DAILY DAILY MOUTH Clinics TWICE DAILY acyclovir 5 acyclovir 5 No acyclovir [place] % topical % topical 5 % Commu ni ointment ointment topical ty APPLY TO APPLY TO ointment [facility] THE THE APPLY TO l AFFECTED AFFECTED THE Clinics AREA EVERY AREA EVERY AFFECTED 2 HOURS 2 HOURS AREA EVERY DURING DURING 2 HOURS AWAKE HOURS AWAKE HOURS DURING FOR 4 DAYS FOR 4 DAYS AWAKE HOURS FOR 4 DAYS estradiol estradiol No estradiol [place] 0.01% (0.1 0.01% (0.1 0.01% (0.1 [facility] mg/gram) mg/gram) mg/gram) ty vaginal vaginal vaginal Hospit a cream cream cream l INSERT 1 INSERT 1 INSERT 1 Cli nics GRAM INTO GRAM INTO GRAM INTO VAGINA VAGINA VAGINA TWICE A TWICE A TWICE A WEEK AT WEEK AT WEEK AT NIGHT. NIGHT. NIGHT. metoprolol metoprolol No metoprolol [place] succinate succinate succinate [facility] ER 25 mg [...] CR 25 No 1 Q1D Paxil CR [place] mg mg 25 mg [facility] tablet,exte tablet,exte tablet,ext ty nded nded ended Hospita release release release l Take 1 Take 1 Take 1 Clinics tablet tablet tablet every day every day every day by oral by oral by oral route. route. route. Suprax 400 Suprax 400 No 1capsul Q1D Suprax 400 [place] mg capsule mg capsule e(s) mg capsule [...] HOURS 5 days valacyclovi valacyclovi No valacyclov [place] r 1 gram r 1 gram ir 1 gram [facility] tablet TAKE tablet TAKE tablet ty 1 TABLET BY 1 TABLET BY TAKE 1 Hospita MOUTH TWICE MOUTH TWICE TABLET BY l DAILY DAILY MOUTH Clinics TWICE DAILY Zithromax Zithromax No Zithromax [place] Z-Andrew 250 Z-Andrew 250 Z-Andrew 250 Communi [...] DAYS acyclovir 5 acyclovir 5 No acyclovir [place] % topical % topical 5 % Commu ni ointment ointment topical ty APPLY TO APPLY TO ointment [facility] THE THE APPLY TO l AFFECTED AFFECTED THE Clinics AREA EVERY AREA EVERY AFFECTED 2 HOURS 2 HOURS AREA EVERY DURING DURING 2 HOURS AWAKE HOURS AWAKE HOURS DURING FOR 4 DAYS FOR 4 DAYS AWAKE HOURS FOR 4 DAYS estradiol estradiol No estradiol [place] 0.01% (0.1 0.01% (0.1 0.01% (0.1 [facility] mg/gram) mg/gram) mg/gram) ty vaginal vaginal vaginal Hospit a cream cream cream l INSERT 1 INSERT 1 INSERT 1 Cli nics GRAM INTO GRAM INTO GRAM INTO VAGINA VAGINA VAGINA TWICE A TWICE A TWICE A WEEK AT WEEK AT WEEK AT NIGHT. NIGHT. NIGHT. fluconazole fluconazole No fluconazol [place] 150 mg 150 mg e 150 mg [facility] tablet tablet tablet ty Hospita l Clinics hydroxyzine hydroxyzine No 1 TID hydroxyzin [place] HCl 25 mg HCl 25 mg e [...] Kenalog 40 No 60mg Q1D Kenalog 40 [place] mg/mL mg/mL mg/mL [facility] suspension suspension suspension ty for for for Hospita injection injection injection l Take 60 mg Take 60 mg Take 60 mg Clinics every day every day every day by by by injection injection injection route. route. route. metoprolol metoprolol No metoprolol [place] succinate succinate succinate [facility] ER 25 mg ER 25 mg ER 25 mg ty tablet,exte tablet,exte tablet,ext Hospita nded nded ended l release 24 release 24 release 24 Clinics hr TAKE 1 hr TAKE 1 hr TAKE 1 TABLET BY TABLET BY TABLET BY MOUTH EVERY MOUTH EVERY MOUTH DAY DAY EVERY DAY omeprazole omeprazole No omeprazole [place] 20 mg 20 mg 20 mg [facility] capsule,del capsule,del capsule,de ty ayed ayed layed Hospita release release release l TAKE 1 TAKE 1 TAKE 1 Clinics CAPSULE BY CAPSULE BY CAPSULE BY MOUTH DAILY MOUTH DAILY MOUTH DAILY paroxetine paroxetine No paroxetine [place] ER 25 mg ER 25 mg ER 25 mg Com ricci tablet,exte tablet,exte tablet,ext ty nded nded ended Hospita release 24 release 24 release 24 l hr TAKE 1 hr TAKE 1 hr TAKE 1 Clinics TABLET BY TABLET BY TABLET BY MOUTH EVERY MOUTH EVERY MOUTH DAY DAY EVERY DAY tobramycin tobramycin No tobramycin [place] 0.3 0.3 0.3 [facility] %-dexametha %-dexametha %-dexameth [...] FOR 5 DAYS triamcinolo triamcinolo No triamcinol [place] ne ne one [facility] acetonide acetonide acetonide [...] days days days trimethopri trimethopri No trimethopr [place] m 100 mg m 100 mg im 100 mg [facility] tablet TAKE tablet TAKE tablet ty 1 TABLET BY 1 TABLET BY TAKE 1 Hospita MOUTH EVERY MOUTH EVERY TABLET BY l DAY DAY MOUTH Clinics EVERY DAY valacyclovi valacyclovi No valacyclov [place] r 1 gram r 1 gram ir 1 gram [facility] tablet TAKE tablet TAKE tablet ty 1 TABLET BY 1 TABLET BY TAKE 1 Hospita MOUTH TWICE MOUTH TWICE TABLET BY l DAILY prn DAILY prn MOUTH Clin ics TWICE DAILY prn acyclovir 5 acyclovir 5 No acyclovir [place] % topical % topical 5 % Commu [...] DAYS Augmentin Augmentin No 1 Q12H Augmentin [place] 500 mg-125 500 mg-125 500 mg-125 [facility] mg tablet mg tablet mg tablet ty Take 1 Take 1 Take 1 Hospita tablet tablet tablet l every 12 every 12 every 12 Cli nics hours by hours by hours by oral route oral route oral route for 10 for 10 for 10 days. days. days. cephalexin cephalexin No cephalexin [place] 500 mg 500 mg 500 mg [facility] capsule capsule capsule ty TAKE 1 TAKE 1 TAKE 1 Hospita CAPSULE BY CAPSULE BY CAPSULE BY l MOUTH TWICE MOUTH TWICE MOUTH Clinics DAILY DAILY TWICE DAILY estradiol estradiol No estradiol [place] 0.01% (0.1 0.01% (0.1 0.01% (0.1 [facility] mg/gram) mg/gram) mg/gram) ty vaginal vaginal vaginal Hospit a cream cream cream l INSERT 1 INSERT 1 INSERT 1 Cli nics GRAM INTO GRAM INTO GRAM INTO VAGINA VAGINA VAGINA TWICE A TWICE A TWICE A WEEK AT WEEK AT WEEK AT NIGHT. NIGHT. NIGHT. fluconazole fluconazole No fluconazol [place] 150 mg 150 mg e 150 mg [facility] tablet tablet tablet ty [facility]ospita l Clinics hydroxyzine hydroxyzine No hydroxyzin [place] HCl 25 mg HCl 25 mg e [...] Kenalog 40 No 60mg Q1D Kenalog 40 [place] mg/mL mg/mL mg/mL [facility] suspension suspension suspension ty for for for Hospita injection injection injection l Take 60 mg Take 60 mg Take 60 mg Clinics every day every day every day by by by injection injection injection route. route. route. metoprolol metoprolol No metoprolol [place] succinate succinate succinate [facility] ER 25 mg ER 25 mg ER 25 mg ty tablet,exte tablet,exte tablet,ext [facility]ospita nded nded ended l release 24 release 24 release 24 Clinics hr TAKE 1 hr TAKE 1 hr TAKE 1 TABLET BY TABLET BY TABLET BY MOUTH EVERY MOUTH EVERY MOUTH DAY DAY EVERY DAY metronidazo metronidazo No 1 Q8H metronidaz [place] le 500 mg le 500 mg ole 500 mg [facility] tablet Take tablet Take tablet ty 1 tablet 1 tablet Take 1 Hospi ta every 8 every 8 tablet l hours by hours by every 8 Clin ics oral route oral route hours by for 7 days. for 7 days. oral route for 7 days. omeprazole omeprazole No omeprazole [place] 20 mg 20 mg 20 mg [facility] capsule,del capsule,del capsule,de ty ayed ayed layed [facility]ospita release release release l TAKE 1 TAKE 1 TAKE 1 Clinics CAPSULE BY CAPSULE BY CAPSULE BY MOUTH DAILY MOUTH DAILY MOUTH DAILY ondansetron ondansetron No 1 Q6H ondansetro [place] 4 mg 4 mg n 4 mg [...] for 6 days. paroxetine paroxetine No paroxetine [place] ER 25 mg ER 25 mg ER 25 mg Com ricci tablet,exte tablet,exte tablet,ext ty nded nded ended Hospita release 24 release 24 release 24 l hr TAKE 1 hr TAKE 1 hr TAKE 1 Clinics TABLET BY TABLET BY TABLET BY MOUTH EVERY MOUTH EVERY MOUTH DAY DAY EVERY DAY tobramycin tobramycin No tobramycin [place] 0.3 0.3 0.3 [facility] %-dexametha %-dexametha %-dexameth [...] FOR 5 DAYS triamcinolo triamcinolo No triamcinol [place] ne ne one [facility] acetonide acetonide acetonide [...] FOR 7 DAYS trimethopri trimethopri No trimethopr [place] m 100 mg m 100 mg im 100 mg [facility] tablet TAKE tablet TAKE tablet ty 1 TABLET BY 1 TABLET BY TAKE 1 Hospita MOUTH EVERY MOUTH EVERY TABLET BY l DAY DAY MOUTH Clinics EVERY DAY valacyclovi valacyclovi No valacyclov [place] r 1 gram r 1 gram ir 1 gram [facility] tablet TAKE tablet TAKE tablet ty 1 TABLET BY 1 TABLET BY TAKE 1 Hospita MOUTH TWICE MOUTH TWICE TABLET BY l DAILY prn DAILY prn MOUTH Clin ics TWICE DAILY prn acyclovir 5 acyclovir 5 No acyclovir [place] % topical % topical 5 % Commu ni ointment ointment topical ty APPLY TO APPLY TO ointment [facility] THE THE APPLY TO l AFFECTED AFFECTED THE Clinics AREA EVERY AREA EVERY AFFECTED 2 HOURS 2 HOURS AREA EVERY DURING DURING 2 HOURS AWAKE HOURS AWAKE HOURS DURING FOR 4 DAYS FOR 4 DAYS AWAKE HOURS FOR 4 DAYS amoxicillin amoxicillin No amoxicilli [place] 500 500 n 500 [facility] mg-potassiu mg-potassiu [...] DAYS benzonatate benzonatate No 1capsul TID benzonatat [place] 100 mg 100 mg e(s) e 100 [...] ty kit TEST [facility] TODAY TODAY DIRECTED Clinics TODAY cephalexin cephalexin No cephalexin [place] 500 mg 500 mg 500 mg [facility] capsule capsule capsule ty TAKE 1 TAKE 1 TAKE 1 Hospita CAPSULE BY CAPSULE BY CAPSULE BY l MOUTH TWICE MOUTH TWICE MOUTH Clinics DAILY DAILY TWICE DAILY estradiol estradiol No estradiol [place] 0.01% (0.1 0.01% (0.1 0.01% (0.1 [facility] mg/gram) mg/gram) mg/gram) ty vaginal vaginal vaginal Hospit a cream cream cream l INSERT 1 INSERT 1 INSERT 1 Cli nics GRAM INTO GRAM INTO GRAM INTO VAGINA VAGINA VAGINA TWICE A TWICE A TWICE A WEEK AT WEEK AT WEEK AT NIGHT. NIGHT. NIGHT. fluconazole fluconazole No fluconazol [place] 150 mg 150 mg e 150 mg [facility] tablet tablet tablet ty Hospita l Clinics hydroxyzine hydroxyzine No hydroxyzin [place] HCl 25 mg HCl 25 mg e [...] Kenalog 40 No 60mg Q1D Kenalog 40 [place] mg/mL mg/mL mg/mL [facility] suspension suspension suspension ty for for for Hospita injection injection injection l Take 60 mg Take 60 mg Take 60 mg Clinics every day every day every day by by by injection injection injection route. route. route. meloxicam meloxicam No 1 Q1D meloxicam [place] 15 mg 15 mg 15 mg [facility] tablet Take tablet Take tablet ty 1 tablet 1 tablet Take 1 Hospi ta every day every day tablet l by oral by oral every day Clin ics route for route for by oral 30 days. 30 days. route for 30 days. metoprolol metoprolol No metoprolol [place] succinate succinate succinate [facility] ER 25 mg ER 25 mg ER 25 mg ty tablet,exte tablet,exte tablet,ext Hospita nded nded ended l release 24 release 24 release 24 Clinics hr TAKE 1 hr TAKE 1 hr TAKE 1 TABLET BY TABLET BY TABLET BY MOUTH EVERY MOUTH EVERY MOUTH DAY DAY EVERY DAY metronidazo metronidazo No metronidaz [place] le 500 mg le 500 mg ole 500 mg [facility] tablet TAKE tablet TAKE tablet ty 1 TABLET BY 1 TABLET BY TAKE 1 Hospita MOUTH EVERY MOUTH EVERY TABLET BY l 8 HOURS FOR 8 HOURS FOR MOUTH Clinics 7 DAYS 7 DAYS EVERY 8 HOURS FOR 7 DAYS omeprazole omeprazole No omeprazole [place] 20 mg 20 mg 20 mg [facility] capsule,del capsule,del capsule,de ty ayed ayed layed Hospita release release release l TAKE 1 TAKE 1 TAKE 1 Clinics CAPSULE BY CAPSULE BY CAPSULE BY MOUTH DAILY MOUTH DAILY MOUTH DAILY ondansetron ondansetron No ondansetro [place] 4 mg 4 mg n 4 mg [...] 6 DAYS NEEDED paroxetine paroxetine No paroxetine [place] ER 25 mg ER 25 mg ER 25 mg Com ricci tablet,exte tablet,exte tablet,ext ty nded nded ended Hospita release 24 release 24 release 24 l hr TAKE 1 hr TAKE 1 hr TAKE 1 Clinics TABLET BY TABLET BY TABLET BY MOUTH EVERY MOUTH EVERY MOUTH DAY DAY EVERY DAY tobramycin tobramycin No tobramycin [place] 0.3 0.3 0.3 [facility] %-dexametha %-dexametha %-dexameth [...] DAYS tramadol 50 tramadol 50 No tramadol [place] mg tablet mg tablet 50 mg Comm uni tablet ty Hospita l Clinics triamcinolo triamcinolo No triamcinol [place] ne ne one Communi acetonide acetonide acetonide ty 0.1 % 0.[facility] % [facility] cream APPLY cream APPLY cream Clinics THIN LAYER THIN LAYER APPLY THIN TOPICALLY TOPICALLY LAYER TO THE TO THE TOPICALLY AFFECTED AFFECTED TO THE AREA TWICE AREA TWICE AFFECTED DAILY FOR 7 DAILY FOR 7 AREA TWICE DAYS DAYS DAILY FOR 7 DAYS trimethopri trimethopri No trimethopr [place] m 100 mg m 100 mg im 100 mg [facility] tablet TAKE tablet TAKE tablet ty 1 TABLET BY 1 TABLET BY TAKE 1 Hospita MOUTH EVERY MOUTH EVERY TABLET BY l DAY DAY MOUTH Clinics EVERY DAY valacyclovi valacyclovi No valacyclov [place] r 1 gram r 1 gram ir 1 gram [facility] tablet TAKE tablet TAKE tablet ty 1 TABLET BY 1 TABLET BY TAKE 1 Hospita MOUTH TWICE MOUTH TWICE TABLET BY l DAILY prn DAILY prn MOUTH Clin ics TWICE DAILY prn Zithromax Zithromax No Zithromax [place] Z-Andrew 250 Z-Andrew 250 Z-Andrew 250 Communi [...] Source BP Diastolic 2022-01-23 00:00:00 80 mm[Hg] [facility] s Height 2022-01-23 00:00:00 63 [in_i] [facility] s BMI (Body Mass 2022-01-23 00:00:00 34.2 kg/m2 [facility]) [facility] s BP Systolic 2022-01-23 00:00:00 145 mm[Hg] [facility] s Body Weight 2022-01-23 00:00:00 3088 [oz_av] [facility] s BP Diastolic 2021-12-18 00:00:00 74 mm[Hg] [facility] s Height 2021-12-18 00:00:00 63 [in_i] [facility] s BMI (Body Mass 2021-12-18 00:00:00 34.7 kg/m2 [facility] s BP Systolic 2021-12-18 00:00:00 139 mm[Hg] [facility] s Body Weight 2021-12-18 00:00:00 3136 [oz_av] [facility] s BP Diastolic 2021-11-08 00:00:00 71 mm[Hg] [facility] s Height 2021-11-08 00:00:00 63 [in_i] [facility] s BMI (Body Mass 2021-11-08 00:00:00 35.3 kg/m2 [facility]) [facility] s BP Systolic 2021-11-08 00:00:00 140 mm[Hg] [facility] s Body Weight 2021-11-08 00:00:00 3187.2 [oz_av] [facility] s BP Diastolic 2021-10-21 00:00:00 74 mm[Hg] [facility] s Height 2021-10-21 00:00:00 63 [in_i] [facility] s BMI (Body Mass 2021-10-21 00:00:00 35.3 kg/m2 [facility]) [facility] s BP Systolic 2021-10-21 00:00:00 147 mm[Hg] [facility] s Body Weight 2021-10-21 00:00:00 3184 [oz_av] [facility] s BP Diastolic 2021-09-20 00:00:00 71 mm[Hg] [facility] s Height 2021-09-20 00:00:00 63 [in_i] [facility] s BMI (Body Mass 2021-09-20 00:00:00 34.7 kg/m2 [facility]) [facility] s BP Systolic 2021-09-20 00:00:00 128 mm[Hg] [facility] s Body Weight 2021-09-20 00:00:00 3137 [oz_av] [facility] s BP Diastolic 2021-07-31 00:00:00 90 mm[Hg] [facility] s Height 2021-07-31 00:00:00 63 [in_i] [facility] s BMI (Body Mass 2021-07-31 00:00:00 34.9 kg/m2 [facility]) [facility] s BP Systolic 2021-07-31 00:00:00 123 mm[Hg] [facility] s Body Weight 2021-07-31 00:00:00 3153.6 [oz_av] [facility] s BP Diastolic 2021-07-23 00:00:00 85 mm[Hg] [facility] s Height 2021-07-23 00:00:00 63 [in_i] [facility] [facility] BMI (Body Mass 2021-07-23 00:00:00 35.6 kg/m2 [facility] s BP Systolic 2021-07-23 00:00:00 151 mm[Hg] [facility] Body Weight 2021-07-23 00:00:00 3216 [oz_av] [facility] BP Diastolic 2021-06-24 00:00:00 81 mm[Hg] [facility] Height 2021-06-24 00:00:00 63 [in_i] [facility] s BMI (Body Mass 2021-06-24 00:00:00 36.8 kg/m2 [facility]) [facility] s BP Systolic 2021-06-24 00:00:00 138 mm[Hg] [facility] Body Weight 2021-06-24 00:00:00 3328 [oz_av] [facility] BP Diastolic 2021-05-30 00:00:00 84 mm[Hg] [facility] Height 2021-05-30 00:00:00 63 [in_i] [facility] BMI (Body Mass 2021-05-30 00:00:00 36.5 kg/m2 [facility]) [facility] s BP Systolic 2021-05-30 00:00:00 144 mm[Hg] [facility] Body Weight 2021-05-30 00:00:00 3296 [oz_av] [facility] BP Diastolic 2021-04-09 00:00:00 68 mm[Hg] [facility] Height 2021-04-09 00:00:00 63 [in_i] [facility] s BMI (Body Mass 2021-04-09 00:00:00 34.4 kg/m2 [facility]) [facility] s BP Systolic 2021-04-09 00:00:00 143 mm[Hg] [facility] Body Weight 2021-04-09 00:00:00 3107.2 [oz_av] [facility] BP Diastolic 2021-03-14 00:00:00 80 mm[Hg] [facility] Height 2021-03-14 00:00:00 63 [in_i] [facility] BMI (Body Mass 2021-03-14 00:00:00 34.9 kg/m2 [facility]) [facility] s BP Systolic 2021-03-14 00:00:00 145 mm[Hg] [facility] s Body Weight 2021-03-14 00:00:00 3155.2 [oz_av] [facility] s BP Diastolic 2021-03-04 00:00:00 76 mm[Hg] [facility] Height 2021-03-04 00:00:00 63 [in_i] [facility] BMI (Body Mass 2021-03-04 00:00:00 36.2 kg/m2 [facility]) [facility] s BP Systolic 2021-03-04 00:00:00 139 mm[Hg] [facility] Body Weight 2021-03-04 00:00:00 3270.4 [oz_av] [facility] s BP Diastolic 2021-02-25 00:00:00 71 mm[Hg] [facility] Height 2021-02-25 00:00:00 63 [in_i] [facility] BMI (Body Mass 2021-02-25 00:00:00 36.5 kg/m2 [facility]) [facility] s BP Systolic 2021-02-25 00:00:00 131 mm[Hg] [facility] Body Weight 2021-02-25 00:00:00 3292.8 [oz_av] [facility] s BP Diastolic 2021-01-14 00:00:00 85 mm[Hg] [facility] Height 2021-01-14 00:00:00 63 [in_i] [facility] BMI (Body Mass 2021-01-14 00:00:00 35.3 kg/m2 [facility]) [facility] s BP Systolic 2021-01-14 00:00:00 137 mm[Hg] [facility] Body Weight 2021-01-14 00:00:00 3184 [oz_av] [facility] BP Diastolic 2020-10-16 00:00:00 61 mm[Hg] [facility] Height 2020-10-16 00:00:00 63 [in_i] [facility] s BMI (Body Mass 2020-10-16 00:00:00 34.4 kg/m2 [facility]) [facility] Clinic s BP Systolic 2020-10-16 00:00:00 120 mm[Hg] [facility] Body Weight 2020-10-16 00:00:00 3104 [oz_av] [facility] s BP Diastolic 2020-09-28 00:00:00 86 mm[Hg] [facility] Height 2020-09-28 00:00:00 63 [in_i] [facility] BMI (Body Mass 2020-09-28 00:00:00 33.9 kg/m2 [facility] Clinic s BP Systolic 2020-09-28 00:00:00 129 mm[Hg] [facility] Body Weight 2020-09-28 00:00:00 3062.4 [oz_av] [facility] s BP Diastolic 2020-08-20 00:00:00 79 mm[Hg] [facility] Height 2020-08-20 00:00:00 63 [in_i] [facility] s BMI (Body Mass 2020-08-20 00:00:00 33 kg/m2 [facility]) [facility] Clinic s BP Systolic 2020-08-20 00:00:00 142 mm[Hg] [facility] s Body Weight 2020-08-20 00:00:00 2979.2 [oz_av] [facility] s BP Diastolic 2020-08-13 00:00:00 93 mm[Hg] [facility] s Height 2020-08-13 00:00:00 63 [in_i] [facility] s BMI (Body Mass 2020-08-13 00:00:00 33.2 kg/m2 [facility]) [facility] Clinic s BP Systolic 2020-08-13 00:00:00 149 mm[Hg] [facility] s Body Weight 2020-08-13 00:00:00 3001.6 [oz_av] [facility] s BP Diastolic 2020-07-26 00:00:00 74 mm[Hg] [facility] Height 2020-07-26 00:00:00 63 [in_i] [facility] BMI (Body Mass 2020-07-26 00:00:00 32.7 kg/m2 [facility] s BP Systolic 2020-07-26 00:00:00 133 mm[Hg] [facility] s Body Weight 2020-07-26 00:00:00 2956.8 [oz_av] [facility] Procedures Procedure Date / Time Performing Clinician Source Performed URINE CULTURE 2021-09-23 00:00:00 Provider, Not In [facility] POC URINALYSIS DIPSTICK 2021-08-21 19:36:00 Emily Vazquez [facility] [id number] 2021-08-21 19:36:00 Emily Vazquez [facility] Carpal Tunnel Surgery [facility] Cholecystectomy [facility] Tubal Ligation [facility] Plan of Care Planned Activity Planned Date Details Comments Source Future Scheduled Test 2022-02-04 HEPATITIS B VACCINES [facility] 13:45:17 (1 of 3 - 3-dose series) [code = HEPATITIS B VACCINES (1 of 3 - 3-dose series)] Future Scheduled Test 2022-02-04 Hepatitis C screening [facility] 13:45:17 (procedure) [code = 844884663] Future Scheduled Test 2022-02-[address] [facility] 13:45:17 malignant neoplasm of cervix (procedure) [code = 171619913] Future Scheduled Test 2022-02-[address] [facility] 13:45:17 SCREENING [code = BREAST CANCER SCREENING] Future Scheduled Test 2022-02-04 COLONOSCOPY SCREENING [facility] 13:45:17 [code = COLONOSCOPY SCREENING] Future Scheduled Test 2022-02-04 SHINGLES VACCINES (1 [facility] 13:45:17 of 2) [code = SHINGLES VACCINES (1 of 2)] Future Scheduled Test 2022-02-04 65+ PNEUMOCOCCAL [facility] 13:45:17 VACCINE (1 - PCV) [code = 65+ PNEUMOCOCCAL VACCINE (1 - PCV)] Future Scheduled Test 2022-02-04 INFLUENZA VACCINE [facility] 13:45:17 [code = INFLUENZA VACCINE] Future Scheduled Test 2022-02-04 HEPATITIS B VACCINES [facility] 13:45:17 (1 of 3 - 3-dose series) [code = HEPATITIS B VACCINES (1 of 3 - 3-dose series)] Future Scheduled Test 2022-02-04 Hepatitis C screening [facility] 13:45:17 (procedure) [code = 157997351] Future Scheduled Test 2022-02-[address] [facility] 13:45:17 malignant neoplasm of cervix (procedure) [code = 942472257] Future Scheduled Test 2022-02-[address] [facility] 13:45:17 SCREENING [code = BREAST CANCER SCREENING] Future Scheduled Test 2022-02-04 COLONOSCOPY SCREENING [facility] 13:45:17 [code = COLONOSCOPY SCREENING] Future Scheduled Test 2022-02-04 SHINGLES VACCINES (1 [facility] 13:45:17 of 2) [code = SHINGLES VACCINES (1 of 2)] Future Scheduled Test 2022-02-04 65+ PNEUMOCOCCAL [facility] 13:45:17 VACCINE (1 - PCV) [code = 65+ PNEUMOCOCCAL VACCINE (1 - PCV)] Future Scheduled Test 2022-02-04 INFLUENZA VACCINE [facility] 13:45:17 [code = INFLUENZA VACCINE] Future Scheduled Test 2022-01-03 HEPATITIS B VACCINES [facility] 14:11:23 (1 of 3 - 3-dose series) [code = HEPATITIS B VACCINES (1 of 3 - 3-dose series)] Future Scheduled Test 2022-01-03 Hepatitis C screening [facility] 14:11:23 (procedure) [code = 386466637] Future Scheduled Test 2022-01-[address] [facility] 14:11:23 malignant neoplasm of cervix (procedure) [code = 692559987] Future Scheduled Test 2022-01-[address] [facility] 14:11:23 SCREENING [code = BREAST CANCER SCREENING] Future Scheduled Test 2022-01-03 COLONOSCOPY SCREENING [facility] 14:11:23 [code = COLONOSCOPY SCREENING] Future Scheduled Test 2022-01-03 SHINGLES VACCINES (1 [facility] 14:11:23 of 2) [code = SHINGLES VACCINES (1 of 2)] Future Scheduled Test 2022-01-03 65+ PNEUMOCOCCAL [facility] 14:11:23 VACCINE (1 - PCV) [code = 65+ PNEUMOCOCCAL VACCINE (1 - PCV)] Future Scheduled Test 2022-01-03 INFLUENZA VACCINE [facility] 14:11:23 [code = INFLUENZA VACCINE] Future Scheduled Test 2022-01-03 HEPATITIS B VACCINES [facility] 14:11:23 (1 of 3 - 3-dose series) [code = HEPATITIS B VACCINES (1 of 3 - 3-dose series)] Future Scheduled Test 2022-01-03 Hepatitis C screening [facility] 14:11:23 (procedure) [code = 995602143] Future Scheduled Test 2022-01-[address] [facility] 14:11:23 malignant neoplasm of cervix (procedure) [code = 996298557] Future Scheduled Test 2022-01-[address] [facility] 14:11:23 SCREENING [code = BREAST CANCER SCREENING] Future Scheduled Test 2022-01-03 COLONOSCOPY SCREENING [facility] 14:11:23 [code = COLONOSCOPY SCREENING] Future Scheduled Test 2022-01-03 SHINGLES VACCINES (1 [facility] 14:11:23 of 2) [code = SHINGLES VACCINES (1 of 2)] Future Scheduled Test 2022-01-03 65+ PNEUMOCOCCAL [facility] 14:11:23 VACCINE (1 - PCV) [code = 65+ PNEUMOCOCCAL VACCINE (1 - PCV)] Future Scheduled Test 2022-01-03 INFLUENZA VACCINE [facility] 14:11:23 [code = INFLUENZA VACCINE] Future Scheduled Test 2021-11-28 HEPATITIS B VACCINES [facility] 00:25:38 (1 of 3 - 3-dose series) [code = HEPATITIS B VACCINES (1 of 3 - 3-dose series)] Future Scheduled Test 2021-11-28 Hepatitis C screening [facility] 00:25:38 (procedure) [code = 090876108] Future Scheduled Test 2021-11-[address] [facility] 00:25:38 malignant neoplasm of cervix (procedure) [code = 111062842] Future Scheduled Test 2021-11-[address] [facility] 00:25:38 SCREENING [code = BREAST CANCER SCREENING] Future Scheduled Test 2021-11-28 COLONOSCOPY SCREENING [facility] 00:25:38 [code = COLONOSCOPY SCREENING] Future Scheduled Test 2021-11-28 SHINGLES VACCINES (1 [facility] 00:25:38 of 2) [code = SHINGLES VACCINES (1 of 2)] Future Scheduled Test 2021-11-28 65+ PNEUMOCOCCAL [facility] 00:25:38 VACCINE (1 - PCV) [code = 65+ PNEUMOCOCCAL VACCINE (1 - PCV)] Future Scheduled Test 2021-11-28 INFLUENZA VACCINE [facility] 00:25:38 [code = INFLUENZA VACCINE] Future Scheduled Test 2021-11-28 HEPATITIS B VACCINES [facility] 00:25:38 (1 of 3 - 3-dose series) [code = HEPATITIS B VACCINES (1 of 3 - 3-dose series)] Future Scheduled Test 2021-11-28 Hepatitis C screening [facility] 00:25:38 (procedure) [code = 287655871] Future Scheduled Test 2021-11-[address] [facility] 00:25:38 malignant neoplasm of cervix (procedure) [code = 260183931] Future Scheduled Test 2021-11-[address] [facility] 00:25:38 SCREENING [code = BREAST CANCER SCREENING] Future Scheduled Test 2021-11-28 COLONOSCOPY SCREENING [facility] 00:25:38 [code = COLONOSCOPY SCREENING] Future Scheduled Test 2021-11-28 SHINGLES VACCINES (1 [facility] 00:25:38 of 2) [code = SHINGLES VACCINES (1 of 2)] Future Scheduled Test 2021-11-28 65+ PNEUMOCOCCAL [facility] 00:25:38 VACCINE (1 - PCV) [code = 65+ PNEUMOCOCCAL VACCINE (1 - PCV)] Future Scheduled Test 2021-11-28 INFLUENZA VACCINE [facility] 00:25:38 [code = INFLUENZA VACCINE] Diagnostic Test 2021-10-21 urinalysis, dipstick [facility] Pending 00:00:00 [code = urinalysis, Hospital Clinics dipstick] Diagnostic Test 2021-10-21 rapid SARS CoV 2 Ag, [facility] Pending 00:00:00 QL IA, respiratory Hospital Clinics specimen [code = rapid SARS CoV 2 Ag, QL IA, respiratory specimen] Diagnostic Test 2021-10-21 rapid strep group A, [facility] Pending 00:00:00 throat [code = rapid Hospita Clinics strep group A, throat] Instructions Critical access hospital Clinic s Encounters Start End Encounter Admission Attending Care Care Encounter Source Date/Time Date/Time Type Type Clinicians Facility Department ID 2021-11-07 Outpatient [facility] [id number] [place] 01:51:34 [id number] [facility] 2021-10-07 Outpatient [facility] [id number] [place] 12:39:58 [id number] [facility] 2021-07-05 Outpatient [facility] [id number] [place] 01:03:47 LUCIEN [id number] [facility] 2022-02-06 2022-02-06 Outpatient SISSON_C [facility] [id number] [place] 00:00:00 00:00:00 1110 [facility] 2022-01-23 2022-01-23 Outpatient SISSON_C [facility] [id number] [place] 00:00:00 00:00:00 1027 [facility] 2022-01-23 2022-01-23 [facility] [place] 00:00:00 00:00:00 JohnJulianne dooley Comm uni MSN, SHIP KEEPER, Hospital - ty BELT AND LINK ASSEMBLY SUPERVISOR-C: [address] [place] [facility] [place], [facility], Clinic s [address], [facility] [address], Mamta Lopez [place] MSN, BELT AND LINK ASSEMBLY SUPERVISOR-C [address] , Ph. 2022-01-15 2022-01-15 Outpatient SISSON_C [facility] [id number] [place] 00:00:00 00:00:00 1019 [facility] 2022-01-03 2022-01-03 Telephone George, 1.2.840.1 [id number] Methodi 00:00:00 00:00:00 Emily 75574.1.1 769 [facility] 3.430.2.7 Hosp bandar .3.240416 l .8 2022-01-03 2022-01-03 Telephone George, 1.2.840.1 [id number] 21 [id number] Methodi 00:00:00 00:00:00 Emily 83136.1.1 769 [facility] 3.430.2.7 Hosp bandar .3.341517 l .8 2022-01-02 2022-01-02 [facility] [id number] [place] 00:00:00 00:00:00 1006 [facility] 2021-12-30 2021-12-31 Inpatient CHICO Arauz, [facility].01 [id number] [facility] 12:08:00 09:39:[address] 2021-12-18 2021-12-18 [facility] [id number] [place] 00:00:00 00:00:00 0921 [facility] 2021-12-18 2021-12-18 [facility] [place] 00:00:00 00:00:00 Julianne Lopez MSN, SHIP KEEPER, [facility] - ty BELT AND LINK ASSEMBLY SUPERVISOR-C: [address] [place] [facility], Clinic s [address], [facility] [address], Mamta Lopez [place] MSN, BELT AND LINK ASSEMBLY SUPERVISOR-C [phone] , Ph. 2021-12-12 2021-12-12 Outpatient SISSON_C [facility] [id number] [place] 00:00:00 00:00:00 0915 [facility] 2021-12-12 2021-12-12 Outpatient John [facility] [id number] 00:00:00 00:00:00 Willy [id number] 2021-12-12 2021-12-12 [facility] [place] 00:00:00 00:00:00 John [facility] Herbert forte MSN, SHIP KEEPER, Hospital - ty BELT AND LINK ASSEMBLY SUPERVISOR-C: [facility] [place] [facility], [facility] s [address], [facility] [address], Mamta Lopez, YAEL MSN, BELT AND LINK ASSEMBLY SUPERVISOR-C [address] , Ph. 2021-12-10 2021-12-10 Outpatient SISSON_C [facility] 2021 [place] 00:00:00 00:00:00 0913 [facility] 2021-11-11 2021-11-11 Outpatient CHRETIEN_F [facility] [id number] [place] 00:00:00 00:00:00 0815 [facility] Clin[facility] 2021-11-08 2021-11-08 Outpatient CHRETIEN_F [facility] 1044 [place] 00:00:00 00:00:00 0812 [facility] 2021-11-08 2021-11-08 Outpatient Emily Longoria [facility] [id number] 00:00:00 00:00:00 [id number] 2021-11-08 2021-11-08 Emily [facility] [place] 00:00:00 00:00:00 Julianne Longoria uni SHIP KEEPER, MSN, Hospital - ty BELT AND LINK ASSEMBLY SUPERVISOR-: [address], CLINIC [address], [place] [address] , Ph. 2021-10-22 2021-10-22 Outpatient CHRETIEN_F [facility] [id number] [place] 10:01:00 10:01:00 0726 [facility] Clin[facility] 2021-10-21 2021-10-21 Outpatient [facility] 139 [id number] [place] 10:15:00 10:15:00 Andi MATTHEWTIMUR beckham 2021-10-21 2021-10-21 Outpatient CHRETIEN_F [facility] [id number] [place] 06:03:00 06:03:00 0725 Commun i ty [facility]osp[facility] Clinics 2021-10-21 2021-10-21 Outpatient Chretien, [facility] [id number] 00:00:00 00:00:00 Kaitlin [id number] 2021-10-21 2021-10-21 Kaitlin [facility] [place] 00:00:00 00:00:00 Samantaetien, Community [facility] mmuni SHIP KEEPER-BELT AND LINK ASSEMBLY SUPERVISOR-B [facility] C: [address] [facility] [address], [place] [address] , Ph. 2021-10-14 2021-10-14 Outpatient [facility] [id number] [facility] 07:36:00 14:00:00 [place] 2021-10-14 2021-10-14 Outpatient [facility] [id number] [place] 09:00:00 09:00:00 [facility] 2021-10-11 2021-10-11 Outpatient LEVI_JEMAL HODGE 987 [place] 10:21:00 10:21:00 SSA 0715 da [facility] [place] 2021-10-08 2021-10-08 Outpatient WATERS_S [facility] [id number] [place] 03:10:00 03:10:00 0712 Commun i ty [facility]osp[facility] Clinics 2021-09-232021-09-23 Orders Provider, 1.2.840.1 [id number] [id number] Methodi 00:00:00 00:00:00 Only [place] 02648.1.[address] System 3.430.2.7 Hospit a .3.714319 l .8 2021-09-23 2021-09-23 Telephone Lord, 1.2.840.1 [id number] [id number] Methodi 00:00:00 00:00:[address] 3.430.2.7 Hospit a .3.867735 l .8 2021-09-23 2021-09-23 Orders Provider, 1.2.840.1 [id number] [id number] Methodi 00:00:00 00:00:00 Only [place] 25179.1.[address] 3.430.2.7 Hospit a .3.881146 l .8 2021-09-23 2021-09-23 Telephone Lord, 1.2.840.1 [id number] 2100 [id number] Methodi 00:00:00 00:00:[address] 3.430.2.7 Hospit a .3.188830 l .8 2021-09-20 2021-09-20 Outpatient WATERS_S [facility] [id number] [place] 12:16:00 12:16:00 0624 [facility] 2021-09-20 2021-09-20 [facility] [place] 00:00:00 00:00:00 John [facility] MSN, SHIP KEEPER, Hospital - ty BELT AND LINK ASSEMBLY SUPERVISOR-C: [address] [place] [facility], [facility] s [address], [facility] [address], Mamta Lopez, YAEL MSN, BELT AND LINK ASSEMBLY SUPERVISOR-C [address] , Ph. 2021-09-20 2021-09-20 [facility] [id number] 00:00:00 00:00:00 Willy [id number] 2021-09-11 2021-09-11 Orders George, 1.2.840.1 [id number] 2099 [id number] Methodi 00:00:00 00:00:00 Only Emily 40851.1.[address] 3.430.2.7 Hosp bandar .3.214810 l .8 2021-09-11 2021-09-11 Orders George, 1.2.840.1 [id number] 2099 [id number] Methodi 00:00:00 00:00:00 Only Emily 02614.1.[address] 3.430.2.7 Hosp bandar .3.403483 l .8 2021-09-09 2021-09-09 Telephone George 1.2.840.1 [id number] Methodi 00:00:00 00:00:[address] [place] 3.430.2.7 Hosp bandar .3.893991 l .8 2021-09-09 2021-09-09 Telephone George 1.2.840.1 [id number] Methodi 00:00:00 00:00:[address] [place] 3.430.2.7 Hosp bandar .3.570938 l .8 2021-09-03 2021-09-03 Outpatient [facility]ERS_S [facility] [id number] [place] 01:31:00 01:31:00 0607 Commun i ty Hospita [facility] Clinics 2021-08-21 2021-08-21 Office George 1.2.840.1 [id number] 2099 [id number] Methodi 14:45:00 15:41:16 Visit Emily 69498.1.[address] [place] 3.430.2.7 Hosp bandar .3.768804 l .8 2021-08-21 2021-08-21 Office George 1.2.840.1 [id number] 2099 [id number] Methodi 14:45:00 15:41:16 Visit Emily 07766.1.[address] [place] 3.430.2.7 Hosp bandar .3.660186 l .8 2021-08-21 2021-08-21 Travel 1.2.840.1 1.2.684.250 [id number] Methodi 00:00:00 00:00:[address] 3.430.2.7 0.2.7.3.698 Ho spita .3.924680 084.8 l .8 2021-08-21 2021-08-21 Travel 1.2.840.1 1.2.933.658 [id number] Methodi 00:00:00 00:00:[address] 3.430.2.7 0.2.7.3.698 Ho spita .3.553449 084.8 l .8 2021-07-31 2021-07-31 Outpatient [facility]S [facility] [id number] [place] 04:50:00 04:50:00 0504 Commun i ty Hospita [facility] 2021-07-31 2021-07-31 [facility] [place] 00:00:00 00:00:00 John, [facility] MSN, SHIP KEEPER, Hospital - ty BELT AND LINK ASSEMBLY SUPERVISOR-C: [address] [place] [facility] [address], [facility] [address], Mamta Lopez, [place] MSN, BELT AND LINK ASSEMBLY SUPERVISOR-C [address] , Ph. 2021-07-31 2021-07-31 Outpatient [facility] [id number] 00:00:00 00:00:00 [facility] [id number] 2021-07-26 2021-07-26 Outpatient [facility] [id number] [place] 05:01:00 05:01:00 0429 Commun i ty Hospita l [facility] 2021-07-26 2021-07-26 [facility] [place] 00:00:00 00:00:00 [facility] uni MSN, SHIP KEEPER, Hospital - ty BELT AND LINK ASSEMBLY SUPERVISOR-C: [address] [place] [facility], [facility] s [address], [facility] [address], Mamta Lopez, [place] MSN, BELT AND LINK ASSEMBLY SUPERVISOR-C [address] , Ph. 2021-07-26 2021-07-26 Outpatient John [facility] [id number] 00:00:00 00:00:00 Willy [id number] 2021-07-23 2021-07-23 Outpatient [facility] [id number] [place] 03:28:00 03:28:00 0426 Commun i ty Hospita l [facility] 2021-07-23 2021-07-23 Kaitlin [facility] [place] 00:00:00 00:00:00 [facility] mmuni SHIP KEEPER-BELT AND LINK ASSEMBLY SUPERVISOR-B Hospital - ty C: [address] [place] [address], [facility] [address] [place] [id number] , Ph. 2021-07-23 2021-07-23 Outpatient [facility] [id number] 00:00:00 00:00:00 Kaitlin [id number] 2021-07-13 2021-07-13 Outpatient [facility] [id number] [place] 01:29:00 01:29:00 0416 [facility] 2021-06-24 2021-06-24 Outpatient [facility] [id number] [place] 06:06:00 06:06:00 [id number] [facility] 2021-06-24 2021-06-24 [facility] [place] 00:[place] 00:00:00 [facility] SHIP KEEPER-FUNERAL ARRANGEMENT DIRECTOR-C: Hospital - ty [address] [place] [address] [address] [place] [address] , Ph. 2021-06-24 2021-06-24 Outpatient Huma [facility] [id number] 00:00:00 00:00:00 [place] [id number] 2021-05-30 2021-05-30 Outpatient [place] [id number] [place] 04:28:00 04:28:00 0303 [facility] 2021-05-30 2021-05-30 [facility] [place] 00:00:00 00:00:00 [facility] SHIP KEEPER-FUNERAL ARRANGEMENT DIRECTOR-C: [address] [address], [place] [address] , Ph. 2021-05-30 2021-05-30 Outpatient Huma [facility] [id number] 00:00:00 00:00:00 [place] [id number] 2021-04-26 2021-04-26 Outpatient [place] [id number] 2021 [place] 04:02:00 04:02:00 0128 [facility] 2021-04-10 2021-04-10 Outpatient [facility] [id number] [place] 10:19:00 10:19:00 0112 [facility] 2021-04-09 2021-04-09 Outpatient [facility] [id number] [place] 02:44:00 02:44:00 0111 [facility] 2021-04-09 2021-04-09 [facility] [place] 00:00:00 00:00:00 [facility] SHIP KEEPER-FUNERAL ARRANGEMENT DIRECTOR-C: [address] [address], [place] [address] , Ph. 2021-04-09 2021-04-09 Outpatient Huma, [facility] [id number] 00:00:00 00:00:00 [place] [id number] 2021-04-05 2021-04-05 Outpatient SHIVA, [facility] [address] [facility] 10:06:00 23:59:00 LUCIEN 2021-03-14 2021-03-14 Outpatient [facility] [id number] [place] 11:37:00 11:37:00 1216 [facility] 2021-03-14 2021-03-14 [facility] [place] [id number] [place] 00:00:00 00:00:00 [facility] Hospital - [address], [place] [address] , Ph. 2021-03-14 2021-03-14 Outpatient [facility], [facility] [id number] 00:00:00 00:00:00 [place] [id number] 2021-03-04 2021-03-04 Outpatient [facility] [id number] [place] 02:40:00 02:40:00 1206 Commun i ty Hospita [facility] 2021-03-04 2021-03-04 [facility] [place] [id number] [place] 00:00:00 00:00:00 [facility] Hospital - ty [address] [place] [address] [address], [place] [address] , Ph. 2021-03-04 2021-03-04 Outpatient [facility], [facility] [id number] 00:00:00 00:00:00 [place] [id number] 2021-03-04 2021-03-04 Outpatient Finn, [facility] [id number] 00:00:00 00:00:00 [place] [id number] 2021-02-25 2021-02-25 [place] [facility] [place] [id number] [place] 00:00:00 00:00:00 [facility] Hospital - ty [address] [place] [address] [address], [place] [address] , Ph. 2021-02-25 2021-02-25 Outpatient Finn, [facility] [id number] 00:00:00 00:00:00 [place] [id number] 2021-01-14 2021-01-14 Outpatient [facility] [id number] [place] 05:43:00 05:43:00 1018 [facility] Clinics 2021-01-14 2021-01-14 Outpatient Finn, [facility] [id number] 00:00:00 00:00:00 [place] [id number] 2021-01-14 2021-01-14 Outpatient Finn, [facility] [id number] 00:00:00 00:00:00 [place] [id number] 2021-01-14 2021-01-14 [facility] [place] 18 [place] 00:00:00 00:00:00 [facility] Hospital - ty [address] [place] [address] [address], [place] [address] , Ph. 2020-10-16 2020-10-16 Outpatient [facility] [id number] [place] 02:24:00 02:24:00 0720 [facility] Clinics 2020-10-16 2020-10-16 Outpatient Finn, [facility] [id number] 00:00:00 00:00:00 [place] [id number] 2020-10-16 2020-10-16 [place] [facility] [place] 00:00:00 00:00:00 [facility]-C: [address] [address], [place] [address] , Ph. 2020-09-28 2020-09-28 Outpatient [facility] [id number] [place] 12:14:00 12:14:00 0702 Commun i ty Hospita [facility] 2020-09-28 2020-09-28 Outpatient Finn, [facility] [id number] 00:00:00 00:00:00 [place] [id number] 2020-09-28 2020-09-28 [facility] [place] 00:00:00 00:00:00 [facility] [address] [address], [place] [address] , Ph. 2020-09-28 2020-09-28 Outpatient Finn, [facility] [id number] 00:00:00 00:00:00 [place] [id number] 2020-08-30 2020-08-30 Outpatient [facility] [id number] [place] 05:28:00 05:28:00 0603 [facility] 2020-08-26 2020-08-26 Outpatient [facility] [id number] [place] 01:01:00 01:01:00 0530 [facility] Clinics 2020-08-20 2020-08-20 Outpatient [facility] [id number] [place] 05:07:00 05:07:00 0524 [facility] 2020-08-20 2020-08-20 [place] [facility] [place] 24 [place] 00:00:00 00:00:00 [facility] SHIP KEEPER-FUNERAL ARRANGEMENT DIRECTOR-C: Hospital - ty [address] [place] [address] [address], [facility] [place] [address] , Ph. 2020-08-20 2020-08-20 Outpatient Finn, [facility] [id number] 00:00:00 00:00:00 [place] [id number] 2020-08-16 2020-08-16 Outpatient SUSTACHE, [facility] [id number] [place] 00:00:00 00:00:00 SHIELA [id number] 2020-08-13 2020-08-13 Outpatient [facility] [id number] [place] 04:15:00 04:15:00 0517 [facility] 2020-08-13 2020-08-13 [facility] [place] 17 [place] 00:00:00 00:00:00 [facility] SHIP KEEPER-FUNERAL ARRANGEMENT DIRECTOR-C: Hospital - ty [address] [place] [address] [address], [facility] [place] [address] , Ph. 2020-08-13 2020-08-13 Outpatient Finn, [facility] [id number] 00:00:00 00:00:00 [place] [id number] 2020-07-26 2020-07-26 Outpatient [facility] [id number] 2020 [place] 05:04:00 05:04:00 0429 [facility] 2020-07-26 2020-07-26 [facility] [place] [id number] [place] 00:00:00 00:00:00 [facility] SHIP KEEPER-FUNERAL ARRANGEMENT DIRECTOR-C: Hospital - ty [address] [place] [address] [address], [place] [address] , Ph. 2020-07-26 2020-07-26 Outpatient Huma [facility] [id number] 00:00:00 00:00:00 [place] [id number] 2020-07-24 2020-07-24 Outpatient SUSTACHE, [facility] [id number] [place] 00:00:00 00:00:00 SHIELA [id number] 2020-07-23 2020-07-23 Emergency E ANNABELLE, [facility] [address] [facility] 16:54:00 18:17:00 NICHELLE 2020-03-09 2020-03-09 Outpatient SHIVA, [facility] [id number] [facility] 11:08:00 23:59:00 LUCIEN 2018-07-28 2018-07-28 Outpatient [facility] [id number] [facility] 01:39:00 01:39:00 Results Test Description Test Time Test Comments Results Result Comments Source COVID 19 INHOUSE AG 2021-12-27 13:24:00 Test Item Value Reference Range Interpretation Comme nts COVID 19 INHOUSE AG (test code = NEGATIVE Negative Per last code striper, negative [id number]) results should be treated aspresumptive a nd, [...] a nd symptoms consistent with COVID-19. PROTHROMBIN [id number] 12:35:00 Test Item Value Reference Range Interpretation [...] (to prevent recurrent infar ct). THROMBOPLASTIN TIME [id number] 12:35:00 Test Item Value Reference Range Interpretation Comments THROMBOPLASTIN TIME PARTIAL 32.1 SECONDS 26-35 N (test code = PTT) BASIC METABOLIC [id number] 11:27:00 Test Item Value Reference Range Interpretation [...] CA) 9.4 MG/DL 8.5-10.1 N CBC W/AUTO [id number] 11:16:00 Test Item Value Reference Range Interpretation [...] code NO DIFF/SCN CRITERIA = MDIFF) URINALYSIS [id number] 10:02:00 Test Item Value Reference Range Interpretation [...] Specimen Type: Clean Catch- XR CHEST 1 [id number] 09:57:00 [facility] : 1955 Sex: F Name: BOZENA MARSH [facility] : 1955 Age/S: 66 / F [address] Unit #: [id number] Loc: [place] [address] Phys: Gama Gabriel MD Acct: [id number] Dis Date: Status: PRE [facility] PHONE #: [phone] Exam Date: 12/27/2021 0957 FAX #: Reason: PREOP EXAMS: CPT: [id number] XR CHEST 1 V 72722 Fluoro Time: DAP (Gy m2): Air Kerma [...] 1 Signed Report Name: BOZENA MARSH : 03/1955 Age/S: 66 / F [address] Unit #: [id number] Loc: [place] [address] Phys: Gama Gabriel MD Acct: [id number] Dis Date: Status: PRE SDC PHONE #: [phone] Exam Date: 12/27/2021956 FAX #: Reason: PREOP EXAMS: CPT: [id number] XR CHEST 1 V 98692 Fluoro Time: DAP (Gy m2): Air Kerma (mGy): (Continued) Technologist: Enedelia Salter RT(R) Trnscb Date/Time: 12/27/2021 (0957) t.[email or web address].[email or web address] Orig Print D/T: S: 12/27/2021 (1001) PAGE 2 Signed Report Urinalysis macro (dipstick) panel - [id number] 15:03:00 Test Item Value Reference Range Interpretation Comments Leukocytes (test code = Leukocytes) Small Nitrite (test code = Nitrite) negative Urobilinogen (test code = .2 Urobilinogen) Protein (test code = Protein) Trace pH (test code = pH) 7.0 Blood (test code = Blood) Moderate Specific Stonewall (test code = 1.015 Specific Stonewall) Ketone (test code = Ketone) Trace Bilirubin (test code = Bilirubin) Negative Glucose (test code = Glucose) Negative Appearance (test code = Appearance) Turbid Color (test code = Color) Yellow [facility] - Urine 2021-10-21 15:03:00 Test Item Value Reference Range Interpretation Comments Leukocytes (test code = Leukocytes) Small Nitrite (test code = Nitrite) negative Urobilinogen (test code = .2 Urobilinogen) Protein (test code = Protein) Trace pH (test code = pH) 7.0 Blood (test code = Blood) Moderate Specific Stonewall (test code = 1.015 Specific Stonewall) Ketone (test code = Ketone) Trace Bilirubin (test code = Bilirubin) Negative Glucose (test code = Glucose) Negative Appearance (test code = Appearance) Turbid Color (test code = Color) Yellow [facility] strep group A, [id number] 14:56:00 Test Item Value Reference Range Interpretation Comments Strep (test code = Strep) negative [facility] strep group A, [id number] 14:56:00 Test Item Value Reference Range Interpretation Comments Strep (test code = Strep) negative [facility]-CoV-2 (COVID-19) Ag [Presence] in Respiratory specimen by Rapid [id number] 14:55:00 Test Item Value Reference Range Interpretation Comments SARS CoV 2 (test code = SARS CoV 2) negative [facility]-CoV-2 (COVID-19) Ag [Presence] in Respiratory specimen by Rapid [id number] 14:55:00 Test Item Value Reference Range Interpretation Comments SARS CoV 2 (test code = SARS CoV 2) negative [facility] urinalysis [id number] 19:36:00 Test Item Value Reference Range Interpretation Comments Color urine, POC (test Yellow code = 0265206) Clarity urine, POC (test Clear code = 1610626) Glucose urine, POC (test Negative Negative code = 7774809) Bilirubin urine, POC Negative Negative (test code = 3307612) Ketones urine, POC (test Negative Negative code = 4606655) Specific gravity urine, 1.005-1.030 POC (test code = 6310985) Blood urine, POC (test Trace Negative A code = 8696816) pH urine, POC (test code See_Comment [A utomated message] = 3287638) The system [employer] generated this result transmitted ref erence range: 5.0, 5.5 , 6.0, 6.5, 7.0, 7.5, 8.0, 8.5. The refere nce range was not u sed to interpret this result as normal/abnor mal. Protein urine, POC (test Negative Negative code = 8319744) Urobilinogen urine, POC <2.0 See_Comment [Au tomated message] (test code = 7924266) The sy stem which generated this result transmitted ref erence range: <=2.0. T he reference range was not used to int erpret this result as normal/abnormal . Nitrite urine, POC (test Negative Negative code = 7063691) Leukocyte esterase Negative Negative urine, POC (test code = 4975910) Lab Interpretation (test Abnormal code = 07614-4) [facility] BLADDER SCAN/[id number] 19:36:00 Test Item Value Reference Range Interpretation Comments Volume (test code = 6344390) [facility] urinalysis [id number] 19:36:00 Test Item Value Reference Range Interpretation Comments Color urine, POC (test Yellow code = 4666840) Clarity urine, POC (test Clear code = 5042036) Glucose urine, POC (test Negative Negative code = 5130668) Bilirubin urine, POC Negative Negative (test code = 5301129) Ketones urine, POC (test Negative Negative code = 6725528) Specific gravity urine, 1.005-1.030 POC (test code = 7700302) Blood urine, POC (test Trace Negative A code = 5272743) pH urine, POC (test code See_Comment [A utomated message] = 0831150) The system [employer] generated this result transmitted ref erence range: 5.0, 5.5 , 6.0, 6.5, 7.0, 7.5, 8.0, 8.5. The refere nce range was not u sed to interpret this result as normal/abnor mal. Protein urine, POC (test Negative Negative code = 1673938) Urobilinogen urine, POC <2.0 See_Comment [Au tomated message] (test code = 4299335) The sy stem which generated this result transmitted ref erence range: <=2.0. T he reference range was not used to int erpret this result as normal/abnormal . Nitrite urine, POC (test Negative Negative code = 1687686) Leukocyte esterase Negative Negative urine, POC (test code = 0102434) Lab Interpretation (test Abnormal code = 10294-6) [facility] BLADDER SCAN/[id number] 19:36:00 Test Item Value Reference Range Interpretation Comments Volume (test code = 1918809) [facility] urinalysis [id number] 19:36:00 Test Item Value Reference Range Interpretation Comments Color urine, POC (test Yellow code = 1411855) Clarity urine, POC (test Clear code = 7607420) Glucose urine, POC (test Negative Negative code = 2772733) Bilirubin urine, POC Negative Negative (test code = 7305961) Ketones urine, POC (test Negative Negative code = 7857780) Specific gravity urine, 1.005-1.030 POC (test code = 0046580) Blood urine, POC (test Trace Negative A code = 4155035) pH urine, POC (test code See_Comment [A utomated message] = 2727533) The system [employer] generated this result transmitted ref erence range: 5.0, 5.5 , 6.0, 6.5, 7.0, 7.5, 8.0, 8.5. The refere nce range was not u sed to interpret this result as normal/abnor mal. Protein urine, POC (test Negative Negative code = 6463579) Urobilinogen urine, POC <2.0 See_Comment [Au tomated message] (test code = 9131448) The sy stem which generated this result transmitted ref erence range: <=2.0. T he reference range was not used to int erpret this result as normal/abnormal . Nitrite urine, POC (test Negative Negative code = 3787577) Leukocyte esterase Negative Negative urine, POC (test code = 8995189) Lab Interpretation (test Abnormal code = 97406-6) [facility] BLADDER SCAN/[id number] 19:36:00 Test Item Value Reference Range Interpretation Comments Volume (test code = 3115397) [facility] urinalysis [id number] 19:36:00 Test Item Value Reference Range Interpretation Comments Color urine, POC (test Yellow code = 6953842) Clarity urine, POC (test Clear code = 8507840) Glucose urine, POC (test Negative Negative code = 6035199) Bilirubin urine, POC Negative Negative (test code = 1667597) Ketones urine, POC (test Negative Negative code = 3298453) Specific gravity urine, 1.005-1.030 POC (test code = 6785420) Blood urine, POC (test Trace Negative A code = 5661525) pH urine, POC (test code See_Comment [A utomated message] = 6896050) The system [employer] generated this result transmitted ref erence range: 5.0, 5.5 , 6.0, 6.5, 7.0, 7.5, 8.0, 8.5. The refere nce range was not u sed to interpret this result as normal/abnor mal. Protein urine, POC (test Negative Negative code = 2302030) Urobilinogen urine, POC <2.0 See_Comment [Au tomated message] (test code = 2363219) The sy stem which generated this result transmitted ref erence range: <=2.0. T he reference range was not used to int erpret this result as normal/abnormal . Nitrite urine, POC (test Negative Negative code = 0067800) Leukocyte esterase Negative Negative urine, POC (test code = 6451600) Lab Interpretation (test Abnormal code = 34075-4) [facility] BLADDER SCAN/[id number] 19:36:00 Test Item Value Reference Range Interpretation Comments Volume (test code = 2496759) [facility] urinalysis [id number] 19:36:00 Test Item Value Reference Range Interpretation Comments Color urine, POC (test Yellow code = 8561371) Clarity urine, POC (test Clear code = 9558481) Glucose urine, POC (test Negative Negative code = 4829339) Bilirubin urine, POC Negative Negative (test code = 7408371) Ketones urine, POC (test Negative Negative code = 9905728) Specific gravity urine, 1.005-1.030 POC (test code = 1103189) Blood urine, POC (test Trace Negative A code = 4188123) pH urine, POC (test code See_Comment [A utomated message] = 8056615) The system [employer] generated this result transmitted ref erence range: 5.0, 5.5 , 6.0, 6.5, 7.0, 7.5, 8.0, 8.5. The refere nce range was not u sed to interpret this result as normal/abnor mal. Protein urine, POC (test Negative Negative code = 4577316) Urobilinogen urine, POC <2.0 See_Comment [Au tomated message] (test code = 0972214) The sy stem which generated this result transmitted ref erence range: <=2.0. T he reference range was not used to int erpret this result as normal/abnormal . Nitrite urine, POC (test Negative Negative code = 4680289) Leukocyte esterase Negative Negative urine, POC (test code = 7911157) Lab Interpretation (test Abnormal code = 26422-2) [facility] BLADDER SCAN/[id number] 19:36:00 Test Item Value Reference Range Interpretation Comments Volume (test code = 1061388) [facility] urinalysis [id number] 19:36:00 Test Item Value Reference Range Interpretation Comments Color urine, POC (test Yellow code = 9835875) Clarity urine, POC (test Clear code = 8311565) Glucose urine, POC (test Negative Negative code = 8752998) Bilirubin urine, POC Negative Negative (test code = 0869531) Ketones urine, POC (test Negative Negative code = 7227285) Specific gravity urine, 1.005-1.030 POC (test code = 3834985) Blood urine, POC (test Trace Negative A code = 5649816) pH urine, POC (test code See_Comment [A utomated message] = 0095544) The system [employer] [facility] generated this result transmitted ref erence range: 5.0, 5.5 , 6.0, 6.5, 7.0, 7.5, 8.0, 8.5. The refere nce range was not u sed to interpret this result as normal/abnor mal. Protein urine, POC (test Negative Negative code = 3982415) Urobilinogen urine, POC <2.0 See_Comment [Au tomated message] (test code = 8874594) The sy stem which generated this result transmitted ref erence range: <=2.0. T he reference range was not used to int erpret this result as normal/abnormal . Nitrite urine, POC (test Negative Negative code = 3717084) Leukocyte esterase Negative Negative urine, POC (test code = 2195006) Lab Interpretation (test Abnormal code = 52027-0) [facility] BLADDER SCAN/[id number] 19:36:00 Test Item Value Reference Range Interpretation Comments Volume (test code = 6552449) [facility] [id number] 00:00:00 Test Item Value Reference Range Interpretation Comments Bacteria identified in Urine by no growth Culture (test code = 630-4) [facility] 2021-07-24 00:00:00 Test Item Value Reference Range Interpretation Comments Bacteria identified in Urine by no growth Culture (test code = 630-4) [facility] [id number] 00:00:00 Test Item Value Reference Range Interpretation Comments written authorization (test code = comment written authorization) [facility] 2021-06-29 00:00:00 Test Item Value Reference Range Interpretation Comments Bacteria identified in Urine by no growth Culture (test code = 630-4) [facility] 2021-06-29 00:00:00 Test Item Value Reference Range Interpretation Comments Bacteria identified in Urine by no growth Culture (test code = 630-4) [facility] 2021-06-29 00:00:00 Test Item Value Reference Range Interpretation Comments Bacteria identified in Urine by no growth Culture (test code = 630-4) [facility] 2021-06-29 00:00:00 Test Item Value Reference Range Interpretation Comments Bacteria identified in Urine by no growth Culture (test code = 630-4) [facility] macro (dipstick) panel - Urine 2021-06-27 16:17:00 Test Item Value Reference Range Interpretation Comments Leukocytes (test code = Small Leukocytes) Nitrite (test code = negative Nitrite) Urobilinogen (test code = .2 Urobilinogen) Protein (test code = Negative Protein) pH (test code = pH) 7.5 Blood (test code = Blood) Non-Hemolyzed: Trace Specific Stonewall (test 1.000 code = Specific Stonewall) Ketone (test code = Negative Ketone) Bilirubin (test code = Negative Bilirubin) Glucose (test code = Negative Glucose) Appearance (test code = Clear Appearance) Color (test code = Color) Pale Yellow [facility] (dipstick) panel - Urine 2021-06-27 16:17:00 Test Item Value Reference Range Interpretation Comments Leukocytes (test code = Small Leukocytes) Nitrite (test code = negative Nitrite) Urobilinogen (test code = .2 Urobilinogen) Protein (test code = Negative Protein) pH (test code = pH) 7.5 Blood (test code = Blood) Non-Hemolyzed: Trace Specific Stonewall (test 1.000 code = Specific Stonewall) Ketone (test code = Negative Ketone) Bilirubin (test code = Negative Bilirubin) Glucose (test code = Negative Glucose) Appearance (test code = Clear Appearance) Color (test code = Color) Pale Yellow [facility] Auto Differential panel - [id number] 00:00:00 Test Item Value Reference Range Interpretation [...] = 706-2) immature cells (test code = felt hat pouncing operator hand immature cells) Neutrophils [#/volume] in Blood 3.7 [...] Blood by Automated count (test code = 42796-4) Immature granulocytes 0.0 x10e3/uL 0.0-0.1 [#/volume] in Blood by Automated count (test code = 26306-9) Nucleated erythrocytes/100 felt hat pouncing operator hand leukocytes [Ratio] in Blood by Automated count (test code = 37082-0) Morphology [Interpretation] in felt hat pouncing operator hand Blood Narrative (test code = 32031-9) [facility] 2000 [facility] - Serum or [id number] 00:00:00 Test Item Value Reference Range Interpretation [...] in Serum or Plasma (test code = 2027-9) Calcium [Mass/volume] in Serum 10.0 mg/dL 8.7-10.3 or Plasma (test code = 67964-6) Protein [Mass/volume] in Serum 6.5 g/dL 6.0-8.5 or Plasma (test code = 2885-2) Albumin [Mass/volume] in Serum 4.4 g/dL 3.8-4.8 or Plasma (test code = 1751-7) Globulin [Mass/volume] in 2.1 g/dL 1.5-4.5 Serum by calculation (test code = 60480-6) Albumin/Globulin [Mass Ratio] 2.1 1.2-2.2 in Serum [...] in Serum or Plasma (test code = 174-6) [facility] [Units/volume] in Serum or Plasma by Detection limit <= 0.005 mIU/[id number] 00:00:00 Test Item Value Reference Range Interpretation Comments Thyrotropin [Units/volume] in 2.820 uIU/mL 0.450-4.500 Serum or Plasma by Detection limit <= 0.005 mIU/L (test code = 85801-9) [facility]yroxine (T4) free [Mass/volume] in Serum or [id number] 00:00:00 Test Item Value Reference Range Interpretation Comments Thyroxine (T4) free [Mass/volume] 1.04 NG/dL 0.82-1.77 in Serum or Plasma (test code = 3024-7) [facility] test [id number] 00:00:00 Test Item Value Reference Range Interpretation Comments dear doctor, (test code = dear comment doctor,) [facility]id 1996 panel - Serum or [id number] 00:00:00 Test Item Value Reference Range Interpretation [...] or Plasma by calculation (test code = 75250-9) Cholesterol in LDL [Mass/volume] in 156 mg/dL 0-99 H Serum or Plasma by calculation (test code = 27937-0) Laboratory comment [Text] in Report felt hat pouncing operator hand Narrative (test code = 28448-0) Cholesterol in LDL/Cholesterol in 3.0 ratio 0.0-3.2 HDL [Mass Ratio] in Serum or Plasma (test code = 48367-9) [facility] HospitalHelicobacter pylori IgA and IgG and IgM [Interpretation] in Serum or [id number] 00:00:00 Test Item Value Reference Range Interpretation Comments Helicobacter pylori IgG Ab 0.45 index value 0.00-0.79 [Units/volume] in Serum by Immunoassay (test code = 5176-3) Helicobacter pylori IgA Ab <9.0 0.0-8.9 [Units/volume] in Serum (test code = 7901-2) Helicobacter pylori IgM Ab <9.0 0.0-8.9 [Units/volume] in Serum (test code = 7903-8) [facility]Folate+Cyanocobalamin [Interpretation] in Serum or [id number] 00:00:00 Test Item Value Reference Range Interpretation Comments Cobalamin (Vitamin B12) 920 pg/mL 232-1245 [Mass/volume] in Serum or Plasma (test code = 2132-9) Folate [Mass/volume] in Serum or >20.0 >3.0 Plasma (test code = 2284-8) [facility]25-Hydroxyvitamin D3+25-Hydroxyvitamin D2 [Mass/volume] in Serum or [id number] 00:00:00 Test Item Value Reference Range Interpretation Comments 25-Hydroxyvitamin 36.5 NG/mL 30.0-100.0 D3+25-Hydroxyvitamin D2 [Mass/volume] in Serum or Plasma (test code = 27094-9) [facility] HospitalFerritin [Mass/volume] in Serum or Plasma 2021-06-25 00:00:00 Test Item Value Reference Range Interpretation Comments Ferritin [Mass/volume] in Serum or 96 NG/mL 15-150 Plasma (test code = 2276-4) [facility] HospitalUrinalysis macro (dipstick) panel - Urine 2021-04-09 13:17:00 Test Item Value Reference Range Interpretation Comments Leukocytes (test code = Small Leukocytes) Nitrite (test code = negative Nitrite) Urobilinogen (test code = .2 Urobilinogen) Protein (test code = Negative Protein) pH (test code = pH) 5.0 Blood (test code = Blood) Hemolyzed: Trace Specific [place] (test code 1.015 = Specific [place]) Ketone (test code = Ketone) Negative Bilirubin (test code = Negative Bilirubin) Glucose (test code = Negative Glucose) [facility]CoV-[facility] (COVID-19) Ag [Presence] in Respiratory specimen by Rapid [id number] 16:26:00 Test Item Value Reference Range Interpretation Comments SARS CoV 2 (test code = SARS CoV 2) negative [facility] ([facility]OVID-19) Ag [Presence] in Respiratory specimen by Rapid [id number] 16:26:00 Test Item Value Reference Range Interpretation Comments SARS CoV 2 (test code = SARS CoV 2) negative [facility] ([facility]OVID-19) Ag [Presence] in Respiratory specimen by Rapid [id number] 16:26:00 Test Item Value Reference Range Interpretation Comments SARS CoV 2 (test code = SARS CoV 2) negative [facility] ([facility]-19) Ag [Presence] in Respiratory specimen by Rapid [id number] 16:26:00 Test Item Value Reference Range Interpretation Comments SARS CoV 2 (test code = SARS CoV 2) negative [facility] flu (A+B)2021-02-25 16:10:00 Test Item Value Reference Range Interpretation Comments FLU A (test code = FLU A) negative FLU B (test code = FLU B) negative [facility] (A+B)2021-02-25 16:10:00 Test Item Value Reference Range Interpretation Comments FLU A (test code = FLU A) negative FLU B (test code = FLU B) negative [facility] flu (A+B)2021-02-25 16:10:00 Test Item Value Reference Range Interpretation Comments FLU A (test code = FLU A) negative FLU B (test code = FLU B) negative [facility] flu (A+B)2021-02-25 16:10:00 Test Item Value Reference Range Interpretation Comments FLU A (test code = FLU A) negative FLU B (test code = FLU B) negative [facility] strep group A, [id number] 16:09:00 Test Item Value Reference Range Interpretation Comments Strep (test code = Strep) positive [facility] strep [facility] A, [id number] 16:09:00 Test Item Value Reference Range Interpretation Comments Strep (test code = Strep) positive [facility] strep [facility] A, [id number] 16:09:00 Test Item Value Reference Range Interpretation Comments Strep (test code = Strep) positive [facility] strep group A, [id number] 16:09:00 Test Item Value Reference Range Interpretation Comments Strep (test code = Strep) positive [facility] HospitalHeterophile Ab [Presence] in Blood by [id number] 15:33:00 Test Item Value Reference Range Interpretation Comments Moca (test code = Moca) negative [facility] HospitalHeterophile Ab [Presence] in Blood by [id number] 15:33:00 Test Item Value Reference Range Interpretation Comments Moca (test code = Moca) negative [facility] HospitalIron and Iron binding capacity panel - Serum or [id number] 00:00:00 Test Item Value Reference Range Interpretation [...] Serum or Plasma (test code = 2502-3) [facility] HospitalFolate+Cyanocobalamin [Interpretation] in Serum or [id number] 00:00:00 Test Item Value Reference Range Interpretation Comments Cobalamin (Vitamin B12) 971 pg/mL 232-1245 [Mass/volume] in Serum or Plasma (test code = 2132-9) Folate [Mass/volume] in Serum or >20.0 >3.0 Plasma (test code = 2284-8) [facility] HospitalPhosphate [Mass/volume] in Serum or Plasma 2020-07-27 00:00:00 Test Item Value Reference Range Interpretation Comments Phosphate [Mass/volume] in Serum or 3.0 mg/dL 3.0-4.3 Plasma (test code = 2777-1) [facility] HospitalErythrocyte sedimentation rate by Westergren [id number] 00:00:00 Test Item Value Reference Range Interpretation Comments Erythrocyte sedimentation rate by 4 mm/HR 0-40 Westergren method (test code = 4537-7) [facility] HospitalMagnesium [Mass/volume] in Serum or Plasma 2020-07-27 00:00:00 Test Item Value Reference Range Interpretation Comments Magnesium [Mass/volume] in Serum or 2.2 mg/dL 1.6-2.3 Plasma (test code = 61462-3) [facility] HospitalIron and Iron binding capacity panel - Serum or [id number] 00:00:00 Test Item Value Reference Range Interpretation [...] Serum or Plasma (test code = 2502-3) [facility] HospitalFolate+Cyanocobalamin [Interpretation] in Serum or [id number] 00:00:00 Test Item Value Reference Range Interpretation Comments Cobalamin (Vitamin B12) 971 pg/mL 232-1245 [Mass/volume] in Serum or Plasma (test code = 2132-9) Folate [Mass/volume] in Serum or >20.0 >3.0 Plasma (test code = 2284-8) [facility] HospitalPhosphate [Mass/volume] in Serum or Plasma 2020-07-27 00:00:00 Test Item Value Reference Range Interpretation Comments Phosphate [Mass/volume] in Serum or 3.0 mg/dL 3.0-4.3 Plasma (test code = 2777-1) [facility] HospitalErythrocyte sedimentation rate by Westergren [id number] 00:00:00 Test Item Value Reference Range Interpretation Comments Erythrocyte sedimentation rate by 4 mm/HR 0-40 Westergren method (test code = 4537-7) [facility] HospitalMagnesium [Mass/volume] in Serum or Plasma 2020-07-27 00:00:00 Test Item Value Reference Range Interpretation Comments Magnesium [Mass/volume] in Serum or 2.2 mg/dL 1.6-2.3 Plasma (test code = 75380-3) [facility] HospitalSURG2018-10-05 11:22:00 RUN DATE: 01/01/18 [facility] - LAB *LIVE* PAGE 1 RUN TIME: 1122 Specimen Inquiry RUN USER: INTERFACE PATIENT: BOZENA MARSH LOC: JENNYU U #: [id number] AGE/SX: 62/F ROOM: RE12/31/17REG DR: Raz Gaspar III : 57 BED: DIS: [facility] T[facility]: SPEC #: [id number] RECD: 12/31/17 STATUS: HENRY DELGADO #: [id number] SHYANN: 12/31/[address]: Raz Gaspar III, MD ENTERED: 12/31/17 SP TYPE: SURG OTHR DR: No Primary or Family PhysicianORDERED: SURG PATH LVL 1, SURG PATH LVL 4 COPIES TO: No Primary [place] [id number] [address] HISTOLOGY: TISSUE ID BLK PCS ANAIS LEV PROCEDURE DISPOSITION ____ ___ ___ ___ NASAL TURBINATE A 1 1 NASAL SEPTUM, N B 1 1 PROCEDURES: SURG PATH LVL 1 (01/01/18) SURG PATH LVL 4 (01/01/18) TISSUES: A. NASAL TURBINATE, NOS - BILATERAL INFERIOR TURBINATES B. NASAL SEPTUM, NOS - SEPTUM CPT CODES CPT CODE(S): 89531 , 94296 , , , , , FINAL DIAGNOSIS A. Inferior turbinate, bilateral, endoscopic sinus surgery: SINUS CONTENTS CONSISTENT WITH CHRONIC SINUSITIS B. Nasal septum, septoplasty: BONE AND CARTILAGE(GROSS ONLY) GROSS DESCRIPTION A. Bilateral inferior turbinates. Received in formalin are irregular fragments of sauceda-brown soft tissue admixed with dark brown blood clots, 2.7 x 1.8 x 1.0 cm in aggregate. Tugger Operator sections submitted as A. B. Septum. Received in formalin are multiple irregular fragments of cartilage CONTINUED ON NEXT PAGE RUN DATE: 01/01/18 [facility] - LAB *LIVE* PAGE 2 RUN TIME: 1121 Specimen Inquiry RUN USER: INTERFACE SPEC #: [facility]:[id number] PATIENT: BOZENA MARSH #[id number] (Continued) GROSS DESCRIPTION (Continued) and bones, 5.0 x 3.5 x 0.7 cm in aggregate. The specimen is photographed for gross identification only. ba/nr Grossing performed at [facility] Pathology, [address] [place] [address], [address], [place] [address]. Grinder Set Up Operator Internal: Ralph Dash M.D. MICROSCOPIC DESCRIPTION A. Bilateral inferior turbinates. Fragments of respiratory epithelium lined mucosa. There are benign mucus glands and a chronic inflammatory infiltrate. Fragments of unremarkable cartilage and bone present. No evidence of malignancy. B. Septum. For gross identification only. /doug Signed SIGNATURE ON FILE Kel Chatterjee 01/01/18 1122 END OF REPORT
[2022-02-19] MEDS ORDERED: NA CHLORIDE 0.9% 1,000 ML ONE (21:57)
[2022-02-19 22:51] LABS: Absolute Lymphocytes (CBC) 1.6 K/uL (0.7-4.9); Hematocrit 47.2 % (36.0-45.0); Lymphocytes % 23.4 % (15.3-44.8); MCV 90.5 fL (80-100); MPV 9.3 fL (7.6-11.3); RBC Red Blood Cell Count 5.21 M/uL (3.86-4.86)
[2022-02-19 23:28] LABS: Potassium 3.7 mmol/L (3.5-5.1)
--- NOTE | 2022-02-19 23:32 | EDPHYS ---
Physician Documentation [facility] Name: Tracey Rodriguez Age: 66 yrs Sex: Female : 1955 Arrival Date: 02/19/2022 Time: 20:25 Bed 15 Private MD: ED Physician Bruce Mclean HPI: 02/19 21:00 This 66 yrs old Female presents to ER via EMS with complaints of Dehydration. jh7 21:00 Onset: The symptoms/episode began/occurred today. Associated signs and symptoms: jh7 Pertinent positives: Malaise. Patient seen this morning for dehydration. She had labs, CT scan, and IV fluids given this morning. She denies any nausea, vomiting, or diarrhea, but states that she still feels like she is dehydrated. Reports that she is tolerating p.o. fluids with no problems.. Historical: - Allergies: 21:00 anti-inflammatory (all); kd3 21:00 Ciprofloxacin; kd3 21:00 fluoroquinolones; kd3 21:00 Levaquin; kd3 21:00 Sulfa (Sulfonamide Antibiotics); kd3 - PMHx: 21:00 Diverticulitis; kd3 - PSHx: 21:00 carpal tunnal repair; Colectomy; Ligation of fallopian tube; kd3 - Immunization history:: Adult Immunizations up to date, Client reports receiving the 2nd dose of the Covid vaccine. - Social history:: Smoking status: Patient denies any tobacco usage or history of. ROS: 21:00 Constitutional: Negative for fever, chills, and weight loss, Eyes: Negative for injury, jh7 pain, redness, and discharge, ENT: Negative for injury, pain, and discharge, Neck: Negative for injury, pain, and swelling, Cardiovascular: Negative for chest pain, palpitations, and edema, Respiratory: Negative for shortness of breath, cough, wheezing, and pleuritic chest pain, Abdomen/GI: Negative for abdominal pain, nausea, vomiting, diarrhea, and constipation, Back: Negative for injury and pain, MS/Extremity: Negative for injury and deformity, Skin: Negative for injury, rash, and discoloration, Neuro: Negative for headache, weakness, numbness, tingling, and seizure. 21:00 All other systems are negative. Exam: 21:00 Constitutional: This is a well developed, well nourished patient who is awake, alert, jh7 and in no acute distress. Head/Face: Normocephalic, atraumatic. Eyes: Pupils equal round and reactive to light, extra-ocular motions intact. Lids and lashes normal. Conjunctiva and sclera are non-icteric and not injected. Cornea within normal limits. Periorbital areas with no swelling, redness, or edema. Neck: Trachea midline, no thyromegaly or masses palpated, and no cervical lymphadenopathy. Supple, full range of motion without nuchal rigidity, or vertebral point tenderness. No Meningismus. Cardiovascular: Regular rate and rhythm with a normal S1 and S2. No gallops, murmurs, or rubs. Normal PMI, no JVD. No pulse deficits. Respiratory: Lungs have equal breath sounds bilaterally, clear to auscultation and percussion. No rales, rhonchi or wheezes noted. No increased work of breathing, no retractions or nasal flaring. Abdomen/GI: Soft, non-tender, with normal bowel sounds. No distension or tympany. No guarding or rebound. No evidence of tenderness throughout. Back: No spinal tenderness. No costovertebral tenderness. Full range of motion. Skin: Warm, dry with normal turgor. Normal color with no rashes, no lesions, and no evidence of cellulitis. MS/ Extremity: Pulses equal, no cyanosis. Neurovascular intact. Full, normal range of motion. Neuro: Awake and alert, GCS 15, oriented to person, place, time, and situation. Motor strength 5/5 in all extremities. Sensory grossly intact. Normal gait. Vital Signs: 20:56 BP 145 / 77; Pulse 68; Resp 18; Temp 98.6(O); Pulse Ox 100% ; Weight 89.36 kg; Height 5 kd3 ft. 3 in. (160.02 cm); Pain 0/10; 23:10 BP 143 / 133; Pulse 71; Resp 16; Temp 98.4; Pulse Ox 98% on R/A; Pain 0/10; ke1 23:54 BP 130 / 89; Pulse 72; Resp 16; Temp 98.2(O); Pulse Ox 100% ; Pain 0/10; ke1 20:56 Body Mass Index 34.90 (89.36 kg, 160.02 cm) kd3 MDM: 20:35 Patient medically screened. 7 23:33 Differential diagnosis: Dehydration. Data reviewed: vital signs, nurses notes, lab test [facility] result(s). Data interpreted: Pulse oximetry: is 98 %. Interpretation: normal. Counseling: I had a detailed discussion with the patient and/or guardian regarding: the historical points, exam findings, and any diagnostic results supporting the discharge/admit diagnosis, to return to the emergency department if symptoms worsen or persist or if there are any questions or concerns that arise at home. Response to treatment: the patient's symptoms have resolved after treatment. ED course: The patient states that she is in here often for dehydration, that she believes stress is causing this issue. She reported that she felt much better after the fluids and agreed that discharge was appropriate.. 02/19 20:48 Order name: BMP; Complete Time: 23:28 [facility] 02/19 20:48 Order name: CBC with Diff; Complete Time: 23:02 [facility] 02/19 23:13 Order name: Recheck Blood Pressure [facility] Administered Medications: 22:00 Drug: NS 0.9% 1000 ml Route: IV; Rate: 1 bolus; Site: right hand; [facility] Disposition: 02/20 02:42 Co-signature as Attending Physician, Bruce Mclean MD. rn Disposition Summary: 02/19/22 23:32 Discharge Ordered Location: Home [facility] Problem: an ongoing problem [facility] Symptoms: have improved [facility] Condition: Stable [facility] Diagnosis - Dehydration 7 - Anxiety disorder, unspecified [facility] Followup: [facility] - With: Private Physician - When: 2 - 3 days - Reason: Recheck today's complaints Discharge Instructions: - Discharge Summary Sheet [facility] - Dehydration, Adult [facility] Forms: - Medication Reconciliation Form [facility] - Thank You Letter [facility] Prescriptions: - Hydroxyzine HCl 25 mg Oral Tablet - take 1 tablet by ORAL route every 6 hours As needed; 12 tablet; Refills: 0, jh7 Product Selection Permitted Signatures: Dispatcher [employer] Bruce Raya MD MD rn Doucette, Kyli, RN RN kd3 Mohinder Rojas RN RN ke1 Makeda Tatum, MANAGER OF TRAINING MANAGER OF TRAINING [facility]
--- NOTE | 2022-02-19 23:32 | ER ---
Nurse's Notes [facility] Name: Tracey Rodriguez Age: 66 yrs Sex: Female : 1955 Arrival Date: 02/19/2022 Time: 20:25 Bed 15 Private MD: Diagnosis: Dehydration;Anxiety disorder, unspecified Presentation: 02/19 20:56 Chief complaint: Patient states: I was in this morning for dehydration and they gave me kd3 fluids and looked for diverticulitis but they didn't find anything. I still feel dehydrated. I also feel a burning sensation through my neck and head. I have a loss of appetit and I am so thirsty. Coronavirus screen: Vaccine status: Patient reports being unvaccinated. Ebola Screen: No symptoms or risks identified at this time. Initial Sepsis Screen: Does the patient meet any 2 criteria? No. Patient's initial sepsis screen is negative. Does the patient have a suspected source of infection? No. Patient's initial sepsis screen is negative. Risk Assessment: Do you want to hurt yourself or someone else? Patient reports no desire to harm self or others. Onset of symptoms was February 19, 2022. 20:56 Method Of Arrival: EMS: [facility] kd3 20:56 Acuity: ANUJA 4 kd3 Triage Assessment: 21:00 General: Appears in no apparent distress. Behavior is calm, cooperative. Pain: Denies kd3 pain. Historical: - Allergies: 21:00 anti-inflammatory (all); kd3 21:00 Ciprofloxacin; kd3 21:00 fluoroquinolones; kd3 21:00 Levaquin; kd3 21:00 Sulfa (Sulfonamide Antibiotics); kd3 - PMHx: 21:00 Diverticulitis; kd3 - PSHx: 21:00 carpal tunnal repair; Colectomy; Ligation of fallopian tube; kd3 - Immunization history:: Adult Immunizations up to date, Client reports receiving the 2nd dose of the Covid vaccine. - Social history:: Smoking status: Patient denies any tobacco usage or history of. Screenin:11 Abuse screen: Denies threats or abuse. Nutritional screening: No deficits noted. ke1 Tuberculosis screening: No symptoms or risk factors identified. Fall Risk None identified. Assessment: 22:01 Reassessment: Patient and/or family updated on plan of care and expected duration. Pain ke1 level reassessed. Patient is alert, oriented x 3, equal unlabored respirations, skin warm/dry/pink. 23:10 Reassessment: Patient denies pain at this time. ke1 Vital Signs: 20:56 BP 145 / 77; Pulse 68; Resp 18; Temp 98.6(O); Pulse Ox 100% ; Weight 89.36 kg; Height 5 kd3 ft. 3 in. (160.02 cm); Pain 0/10; 23:10 BP 143 / 133; Pulse 71; Resp 16; Temp 98.4; Pulse Ox 98% on R/A; Pain 0/10; ke1 23:54 BP 130 / 89; Pulse 72; Resp 16; Temp 98.2(O); Pulse Ox 100% ; Pain 0/10; ke1 20:56 Body Mass Index 34.90 (89.36 kg, 160.02 cm) kd3 ED Course: 20:25 Patient arrived in ED. 4 20:35 Makeda Tatum FNP [facility] 7 20:35 Bruce Mclean MD is Attending Physician. 7 21:00 Triage completed. kd3 21:00 Arm band placed on right wrist. kd3 21:02 Maintain EMS IV. Dressing intact. Good blood return noted. Site clean \T\ dry. Gauge \T\ kd 3 site: 22 right hand . 21:26 Mohinder Rojas RN is Primary Nurse. ke1 23:11 No provider procedures requiring assistance completed. ke1 23:13 Bed in low position. Call light in reach. Side rails up X 1. ke1 23:55 IV discontinued. ke1 Administered Medications: 22:00 Drug: NS 0.9% 1000 ml Route: IV; Rate: 1 bolus; Site: right hand; ke1 Medication: 23:55 VIS not applicable for this client. ke1 Outcome: 23:32 Discharge ordered by . 7 23:54 Discharged to home ambulatory. ke1 23:54 Condition: good 23:54 Discharge instructions given to patient. 23:55 Patient left the ED. ke1 Signatures: Viola Dotson 4 Magui Stern RN RN 3 Mohinder Rojas RN RN ke1 Hadash, Makeda, DIRECTOR OF COMMUNITY LIFE DIRECTOR OF COMMUNITY LIFE jh7
[2022-02-20 00:24] VITALS: BP 130/89; TEMP 98.2; O2SAT 100
== END 2022-02-19 23:55 | disposition home or self-care (01) ==
LOC: ER 20:22
DX: E86.0 Dehydration (principal); F41.9 Anxiety disorder, unspecified; Z88.1 Allergy status to other antibiotic agents; Z88.5 Allergy status to narcotic agent; Z88.8 Allergy status to other drugs, medicaments and biological substances
CPT/HCPCS: 85025; 80048; 36415; 99283; J7030

== ENCOUNTER 2022-05-26 08:15 | Emergency (ER) | payer OTHER ==
--- OUTSIDE RECORDS SUMMARY | 2022-05-26 08:23 | XMS REPORT | Continuity of Care Document ---
:1955 Author Organization [facility] t Address [address] [place] [address] Care Team Providers Name Role Phone Silvio Babin MD, Shiela Primary Care Physician [phone] LUCIEN SHANNON Attending Clinician Unavailable CHIVO Attending Clinician Unavailable KHALIDA Attending Clinician Unavailable Emily Vazquez MD Attending Clinician [phone] Elvia Arauz Attending Clinician Unavailable Willy Lopez Attending Clinician [phone] Emily Longoria Attending Clinician [phone] MATTHEW NAGY Attending Clinician Unavailable Kaitlin Block Attending Clinician [phone] LUCIEN SHANNON Attending Clinician Unavailable JONATHAN Attending Clinician Unavailable SANJUANAS Attending Clinician Unavailable Provider , Not In System Attending Clinician Unavailable Ginna Lord MA Attending Clinician Unavailable Provider , Not In System Attending Clinician Unavailable Roula Fnin Attending Clinician [phone] SHIELA RASMUSSEN Attending Clinician Unavailable NICHELLE ALANIS Attending Clinician Unavailable CHRETIEN_F Admitting Clinician Unavailable SISSON_C Admitting Clinician Unavailable Elvia Arauz Admitting Clinician Unavailable LEVI_FLORIN Admitting Clinician Unavailable FRANCISCO_Nolan Admitting Clinician Unavailable Payers Payer Name Policy Type Policy Number Effective Date Expiration Date Nolan desai AETNA CHOICE POS II [id number] 2002 2002 00:00:00 00:00:00 AETNA (MEDICARE [id number] 2022 REPLACEMENT PPO) 00:00:00 MEDICARE A-[place]: [id number] 2021 [employer] 00:00:00 MEDICARE [place]: [id number] 2021 [employer] - 00:00:00 [facility] AETNA (INDEMNITY) [id number] 2002 00:00:00 MEDICARE B-[place]: [id number] 2021 [employer] 00:00:00 MEDICARE PART A AND [id number] 2021 B 00:00:00 AETNA (POS) [id number] 2020 00:00:00 Problems Condition Condition Condition Status Onset Resolution Last Treating Co mments Source Name Details Category Date Date Treatment Clinician Date Acute Acute Problem Active 2021-03 [place] upper Upper 2-29 [facility]i respirator Respirator 00:00: ty y y 00 [facility]ospita infection Infection l Clinics Nasal Nasal Problem Active 2021-03 [place] congestion Congestion 2-29 [facility] 00:00: ty [facility] Cough Cough Problem Active 2021-03 [place] 2-29 [facility] 00:00: ty 00 [facility] Anxiety Anxiety Problem Active 2021-03 [place] 1- [facility] 00:00: ty 00 [facility] Clin[facility] 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 04-26 [facility] disturbanc Disturbanc 00:00: ty e e 00 [facility]ospita l Clinics Allergic Allergic Problem Active 2021-03 [facility] rhinitis Rhinitis 04-26 [facility] 00:00: ty [facility] Clinics Dizziness Dizziness Problem Active 2021-03 Swe venkat 04-26 [facility] Contact Contact Problem Active [place] dermatitis Dermatitis 11-08 [facility] 00:00: ty [facility] Pruritic Pruritic Problem Active [facility] rash Rash 11-08 [facility] 00:00: ty [facility] Ganglion Ganglion Problem Active [facility] cyst of Cyst of 11-08 [facility] left hand Left Hand 00:00: ty [facility] Depressive Depressive Problem Active S [facility] disorder Disorder 10-21 [facility] 00:00: ty [facility] Conjunctiv Conjunctiv Problem Active S [facility] itis itis 10-21 [facility]i 00:00: ty 00 [facility] Acute Acute Problem Active [place] sinusitis Sinusitis 10-21 [facility] 00:00: ty [facility] Urinary Urinary Problem Active [place] tract Tract 10-21 [facility] infectious Infectious 00:00: ty disease Disease 00 [facility] Diverticul Diverticul Problem Active S weeny itis itis 07-26 Communi 00:00: ty 00 [facility] No known No known Disease Metho di active active st problems problems Hospit a l Allergies, Adverse Reactions, Alerts Allergy Allergy Status Severity Reaction(s) Onset Inactive Treating Comm ents Source Name Type Date Date Clinician FLUROQUI DA Active [facility] HISTORY OF 9-30 Maxine an ALLERGIC 00:00: d REACTION 00 [facility] SV 2017-03 [facility] xacin 0-01 [place] 00:00: d 00 [facility] levoflox DA Active SV 2017-03 [facility] acin 0-01 [place] 00:00: d 00 [facility] ANTI DA Active U UNKNOWN 2017-03 [facility] INFLAMMA 0-01 [place] TORY PO 00:00: d MEDS 00 [facility] DA Active SV LEG WEEKNESS 2017-03 HC A xacin 0-01 [place] 00:00: d 00 [facility] levoflox DA Active SV LOWER EXT 2017-03 [facility] acin WEEKNESS 0 [place] 00:00: d [facility] Ciproflo [...] l s to drug NSAIDS Allergy Active [place] (NON-DRAGAN to Communi ROIDAL substanc ty ANTI-INF e Hospita LAMMATOR l Y DRUG) Clinics QUINOLON Allergy Active [place] ES to Communi substanc ty e Hospita l Clinics Family History Family Member Diagnosis Comments Start Date Stop Date Source Natural father Heart disease [facility] Natural mother Cancer [facility] Social History Social Habit Start Date Stop Date Quantity Comments Source Alcohol intake 2021-08-21 2021-08-21 Current [facility] 00:00:00 00:00:00 non-drinker of Hospital alcohol (finding) Tobacco use and 2017-06-05 2017-06-05 Smokeless tobacco Me [facility] exposure 00:00:00 00:00:00 non-user Hospital Sex Ass[birth year] [facility] 00:[facility]:00 Hospital Smoking Status Start Date Stop Date Source Never smoked tobacco [facility] Medications Ordered Filled Start Stop Current Ordering Indication Dosage Frequency Signature Comments Components Source Medication Medication Date Date Medication? Clinician (SIG) Name Name Kenalog 40 Kenalog 40 No Q1D Kenalog 40 [place] mg/mL mg/mL 8-12 mg/mL [facility]i suspension suspension [...] nightly for the first 2 weeks oxybutynin 2021-2021- No 5mg QD Take 5 [...] l hr tablet dexamethaso dexamethaso No dexamethas [place] ne sodium ne sodium 3-03 one sodium [facility] phosphate phosphate 15:10: phosphate ty 10 mg/mL 10 mg/mL 00 10 mg/mL [facility] injection injection injection l solutionTak solutionTak solutionTa Clinics e 10 mg by e 10 mg by ke 10 mg injection injection by route. route. injection route. peg peg No peg [place] 3350-electr 3350-electr 3-03 3350-elect Communi olytes 236 olytes 236 00:00: rolytes ty gram-22.74 gram-22.74 00 236 [facility] gram-6.74 gram-6.74 gram-22.74 l gram-5.86 gram-5.86 gram-6.74 Clinics gram gram gram-5.86 solution solution gram MIX AND MIX AND solution DRINK DRINK MIX AND DIRECTED DIRECTED DRINK DIRECTED lidocaine lidocaine 2020-03 No Q1D lidocaine [place] (PF) 10 (PF) 10 0-18 (PF) 10 [...] Kenalog 40 2020-03 No Q1D Kenalog 40 [place] mg/mL mg/mL 0-18 mg/mL [facility] suspension suspension [...] spray acyclovir 5 acyclovir 5 No acyclovir [place] % topical % topical 5 % Commu ni ointment ointment topical ty APPLY TO APPLY TO ointment [facility] THE THE APPLY TO l AFFECTED AFFECTED THE Clinics AREA EVERY AREA EVERY AFFECTED 2 HOURS 2 HOURS AREA EVERY DURING DURING 2 HOURS AWAKE HOURS AWAKE HOURS DURING FOR 4 DAYS FOR 4 DAYS AWAKE HOURS FOR 4 DAYS amoxicillin amoxicillin No amoxicilli [place] 500 500 n 500 Communi mg-potassiu mg-potassiu [...] DIRECTED Clinics TODAY cephalexin cephalexin No cephalexin [place] 500 mg 500 mg 500 mg [facility]i capsule capsule capsule ty TAKE 1 TAKE 1 TAKE 1 Hospita CAPSULE BY CAPSULE BY CAPSULE BY l MOUTH TWICE MOUTH TWICE MOUTH Clinics DAILY DAILY TWICE DAILY estradiol estradiol No estradiol [place] 0.01% (0.1 0.01% (0.1 0.01% (0.1 Communi mg/gram) mg/gram) mg/gram) ty vaginal vaginal vaginal Hospit a cream cream cream l INSERT 1 INSERT 1 INSERT 1 Cli nics GRAM INTO GRAM INTO GRAM INTO VAGINA VAGINA VAGINA TWICE A TWICE A TWICE A WEEK AT WEEK AT WEEK AT NIGHT. NIGHT. NIGHT. fluconazole fluconazole No fluconazol [place] 150 mg 150 mg e 150 mg Communi tablet tablet tablet ty Hospita l Clinics hydroxyzine hydroxyzine No hydroxyzin [place] HCl 25 mg HCl 25 mg e [...] Kenalog 40 No 60mg Q1D Kenalog 40 [place] mg/mL mg/mL mg/mL [facility] suspension suspension suspension ty for for for Hospita injection injection injection l Take 60 mg Take 60 mg Take 60 mg Clinics every day every day every day by by by injection injection injection route. route. route. metoprolol metoprolol No metoprolol [place] succinate succinate succinate Commun[facility] ER 25 mg ER 25 mg ER 25 mg ty tablet,exte tablet,exte tablet,ext Hospita nded nded ended l release 24 release 24 release 24 Clinics hr TAKE 1 hr TAKE 1 hr TAKE 1 TABLET BY TABLET BY TABLET BY MOUTH EVERY MOUTH EVERY MOUTH DAY DAY EVERY DAY metronidazo metronidazo No metronidaz [place] le 500 mg le 500 mg ole 500 mg [facility]i tablet TAKE tablet TAKE tablet ty 1 TABLET BY 1 TABLET BY TAKE 1 Hospita MOUTH EVERY MOUTH EVERY TABLET BY l 8 HOURS FOR 8 HOURS FOR MOUTH Clinics 7 DAYS 7 DAYS EVERY 8 HOURS FOR 7 DAYS omeprazole omeprazole No omeprazole [place] 20 mg 20 mg 20 mg Communi capsule,del capsule,del capsule,de ty ayed ayed layed Hospita release release release l TAKE 1 TAKE 1 TAKE 1 Clinics CAPSULE BY CAPSULE BY CAPSULE BY MOUTH DAILY MOUTH DAILY MOUTH DAILY ondansetron ondansetron No ondansetro [place] 4 mg 4 mg n 4 mg [...] 6 DAYS NEEDED paroxetine paroxetine No paroxetine [place] ER 25 mg ER 25 mg ER 25 mg Com ricci tablet,exte tablet,exte tablet,ext ty nded nded ended Hospita release 24 release 24 release 24 l hr TAKE 1 hr TAKE 1 hr TAKE 1 Clinics TABLET BY TABLET BY TABLET BY MOUTH EVERY MOUTH EVERY MOUTH DAY DAY EVERY DAY tobramycin tobramycin No tobramycin [place] 0.3 0.3 0.3 Communi %-dexametha %-dexametha %-dexameth [...] FOR 5 DAYS triamcinolo triamcinolo No triamcinol [place] ne ne one Communi acetonide acetonide acetonide [...] FOR 7 DAYS trimethopri trimethopri No trimethopr [place] m 100 mg m 100 mg im 100 mg [facility] tablet TAKE tablet TAKE tablet ty 1 TABLET BY 1 TABLET BY TAKE 1 Hospita MOUTH EVERY MOUTH EVERY TABLET BY l DAY DAY MOUTH Clinics EVERY DAY valacyclovi valacyclovi No valacyclov [place] r 1 gram r 1 gram ir 1 gram Co [facility]i tablet TAKE tablet TAKE tablet ty 1 TABLET BY 1 TABLET BY TAKE 1 Hospita MOUTH TWICE MOUTH TWICE TABLET BY l DAILY prn DAILY prn MOUTH Clin ics TWICE DAILY prn amoxicillin amoxicillin No amoxicilli [place] [phone] n 875 Communi mg-potassiu mg-potassiu mg-potassi ty m m um Hospita clavulanate clavulanate clavulanat l 125 mg 125 mg e 125 mg Clinics tablet tablet tablet Flagyl 500 Flagyl 500 No 1 Q8H Flagyl 500 [place] mg tablet mg tablet mg tablet Communi Take 1 Take 1 Take 1 ty tablet tablet tablet Hospita every 8 every 8 every 8 l hours by hours by hours by Cli nics oral route. oral route. oral route. prednisone prednisone No 1 BID prednisone [place] 20 mg 20 mg 20 mg Communi tablet Take tablet Take tablet ty 1 tablet 1 tablet Take 1 Hospi ta twice a day twice a day tablet l by oral by oral twice a Clinic s route for 5 route for 5 day by days. days. oral route for 5 days. Valtrex 1 Valtrex 1 No 1 TID Valtrex 1 [place] gram tablet gram tablet gram C ommuni Take 1 Take 1 tablet ty tablet 3 tablet 3 Take 1 Hospi ta times a day times a day tablet 3 l by oral by oral times a Clinic s route for 7 route for 7 day by days. days. oral route for 7 days. Vistaril 25 Vistaril 25 No 1capsul Q7H Vistaril [place] mg capsule mg capsule e(s) 25 mg Co m[facility]i Take 1 Take 1 capsule ty capsule capsule Take 1 Hospita every 6-8 every 6-8 capsule l hours by hours by every 6-8 Cl inics oral route oral route hours by as needed. as needed. oral route as needed. dicyclomine dicyclomine No 1 TID dicyclomin [place] 20 mg 20 mg e 20 mg Communi tablet Take tablet Take tablet ty 1 tablet 3 1 tablet 3 Take 1 H ospita times a day times a day tablet 3 l by oral by oral times a Clinic s route as route as day by needed. needed. oral route as needed. hyoscyamine hyoscyamine No hyoscyamin [place] 0.125 mg 0.125 mg e 0.125 mg C ommuni sublingual sublingual sublingual ty [facility] ivermectin ivermectin No 2 BID ivermectin [place] 3 mg tablet 3 mg tablet 3 mg C ommuni Take 2 Take 2 tablet ty tablets tablets Take 2 Hospita twice a day twice a day tablets l by oral by oral twice a Clinic s route. route. day by oral route. Denavir 1 % Denavir 1 % No Denavir 1 [place] topical topical % topical Comm uni cream APPLY cream APPLY cream ty TO THE TO THE APPLY TO [facility] AFFECTED AFFECTED THE l AREA(S) BY AREA(S) BY AFFECTED Clinics TOPICAL TOPICAL AREA(S) BY ROUTE EVERY ROUTE EVERY TOPICAL 2 HOURS 2 HOURS ROUTE DURING DURING EVERY 2 WAKING WAKING HOURS HOURS FOR 4 HOURS FOR 4 WAKING HOURS FOR 4 DAYS No [place] Once Daily Once Daily Once Daily Communi [...] DAILY valacyclovi valacyclovi No 1 TID valacyclov [place] r 1 gram r 1 gram ir [...] % Denavir 1 % No Denavir 1 [place] topical topical % topical Comm uni cream APPLY cream APPLY cream ty TO THE TO THE APPLY TO [facility] AFFECTED AFFECTED THE l AREA(S) BY AREA(S) BY AFFECTED Clinics TOPICAL TOPICAL AREA(S) BY ROUTE EVERY ROUTE EVERY TOPICAL 2 HOURS 2 HOURS ROUTE DURING DURING EVERY 2 WAKING WAKING HOURS HOURS FOR 4 HOURS FOR 4 WAKING HOURS FOR 4 DAYS No [place] Once Daily Once Daily Once Daily Communi [...] DAILY valacyclovi valacyclovi No 1 TID valacyclov [place] r 1 gram r 1 gram ir [...] days. acyclovir 5 acyclovir 5 No acyclovir [place] % topical % topical 5 % Commu [...] DAYS cefdinir cefdinir No 1capsul Q12H cefdinir [place] 300 mg 300 mg e(s) 300 mg Communi capsule capsule capsule ty Take 1 Take 1 Take 1 Hospita capsule capsule capsule l every 12 every 12 every 12 Cli nics hours by hours by hours by oral route. oral route. oral route. Denavir 1 % Denavir 1 % No Denavir 1 [place] topical topical % topical Comm uni cream [...] FOR 4 DAYS hyoscyamine hyoscyamine No hyoscyamin [place] 0.125 mg 0.125 mg e 0.125 mg C ommuni disintegrat disintegrat disintegra ty ing tablet ing tablet ting [facility] tablet l Clinics Pataday Pataday No Pataday [place] Once Daily Once Daily Once Daily Communi Relief 0.2 Relief 0.2 Relief 0.2 ty % eye drops % eye drops % eye Hospita INSTILL 1 INSTILL 1 drops l DROP INTO DROP INTO INSTILL 1 Clinics AFFECTED AFFECTED DROP INTO EYE(S) BY EYE(S) BY AFFECTED OPHTHALMIC OPHTHALMIC EYE(S) BY ROUTE ONCE ROUTE ONCE OPHTHALMIC DAILY DAILY ROUTE ONCE DAILY sulfamethox sulfamethox No sulfametho [place] azole 800 azole 800 xazole 800 Communi mg-trimetho mg-trimetho mg-trimeth ty prim 160 mg prim 160 mg oprim 160 Hospita tablet tablet mg tablet l [facility] valacyclovi No 1 TID valacyclov [place] r 1 gram r 1 gram ir [...] days. acyclovir 5 acyclovir 5 No acyclovir [place] % topical % topical 5 % Commu ni ointment ointment topical ty APPLY TO APPLY TO ointment [facility] THE THE APPLY TO l AFFECTED AFFECTED THE Clinics AREA EVERY AREA EVERY AFFECTED 2 HOURS 2 HOURS AREA EVERY DURING DURING 2 HOURS AWAKE HOURS AWAKE HOURS DURING FOR 4 DAYS FOR 4 DAYS AWAKE HOURS FOR 4 DAYS carbamazepi carbamazepi No carbamazep [place] ne ER 100 ne ER 100 ine ER 100 Communi mg mg mg ty tablet,exte tablet,exte tablet,ext Hospita nded nded ended l release,12 release,12 release,12 Clinics hr TAKE 1 hr TAKE 1 hr TAKE 1 TABLET BY TABLET BY TABLET BY MOUTH EVERY MOUTH EVERY MOUTH 12 HOURS 12 HOURS EVERY 12 HOURS hyoscyamine hyoscyamine No hyoscyamin [place] 0.125 mg 0.125 mg e 0.125 mg C ommuni disintegrat disintegrat disintegra ty ing tablet ing tablet ting [facility] tablet [facility] erikaacyclovi No valacyclov [place] r 1 gram r 1 gram ir 1 gram Co m[facility]i tablet TAKE tablet TAKE tablet ty 1 TABLET BY 1 TABLET BY TAKE 1 Hospita MOUTH EVERY MOUTH EVERY TABLET BY l DAY FOR 30 DAY FOR 30 MOUTH Cl inics DAYS DAYS EVERY DAY FOR 30 DAYS acyclovir 5 acyclovir 5 No acyclovir [place] % topical % topical 5 % Commu [...] DAYS clonidine clonidine No 1 Q1D clonidine [place] HCl ER 0.1 HCl ER 0.1 HCl [...] evening. DripDrop DripDrop No 1packet Q1D DripDrop [place] 305 mg-175 305 mg-175 (s) 305 mg-175 Communi mg-70 mg mg-70 mg mg-70 mg ty oral powder oral powder oral H ospita packet Take packet Take powder l 1 packet 1 packet packet Clini cs every day every day Take 1 by oral by oral packet route as route as every day needed. needed. by oral route as needed. hyoscyamine hyoscyamine No hyoscyamin [place] 0.125 mg 0.125 mg e 0.125 mg C om[facility]i disintegrat disintegrat disintegra ty ing tablet ing tablet ting [facility] tablet l Clinics Kenalog 40 Kenalog 40 No .5mL Q1D Kenalog 40 [place] mg/mL mg/mL mg/mL Communi suspension suspension suspension ty for for for Hospita injection injection injection l Take 0.5 mL Take 0.5 mL Take 0.5 Clinics every day every day mL every by by day by injection injection injection route for 1 route for 1 route for day. day. 1 day. lidocaine lidocaine No 2mL Q1D lidocaine [place] (PF) 10 (PF) 10 (PF) 10 Commun i mg/mL (1 %) mg/mL (1 %) mg/mL (1 ty injection injection %) Hospi ta solution solution injection l Take 2 mL Take 2 mL solution C linics every day every day Take 2 mL by by every day injection injection by route. route. injection route. pantoprazol pantoprazol No 1 Q1D pantoprazo [place] e 40 mg e 40 mg le 40 mg Commu ni tablet,hodan tablet,hodan tablet,del ty yed release yed release ayed H ospita Take 1 Take 1 release l tablet tablet Take 1 Clinics every day every day tablet by oral by oral every day route. route. by oral route. valacyclovi valacyclovi No valacyclov [place] r 1 gram r 1 gram ir 1 gram Co m[facility]i tablet TAKE tablet TAKE tablet ty 1 TABLET BY 1 TABLET BY TAKE 1 Hospita MOUTH EVERY MOUTH EVERY TABLET BY l DAY FOR 30 DAY FOR 30 MOUTH Cl inics DAYS DAYS EVERY DAY FOR 30 DAYS Artificial Artificial No 1drop(s Q1D Artificial [place] Tears Tears ) Tears Communi (polyvinyl (polyvinyl (polyvinyl ty alcohol) alcohol) alcohol) [facility] 1.4 % eye 1.4 % eye 1.4 % eye l drops Apply drops Apply drops Clinics 1 drop 1 drop Apply 1 every day every day drop every by by day by ophthalmic ophthalmic ophthalmic route. route. route. azithromyci azithromyci No 1 Q1D azithromyc [place] n 500 mg n 500 mg in 500 mg Co m[facility]i tablet Take tablet Take tablet ty 1 tablet 1 tablet Take 1 Hospi ta every day every day tablet l by oral by oral every day Clin ics route for 5 route for 5 by oral days. days. route for 5 days. DripDrop DripDrop No 1packet Q1D DripDrop [place] 305 mg-175 305 mg-175 (s) 305 mg-175 Communi mg-70 mg mg-70 mg mg-70 mg ty oral powder oral powder oral H ospita packet Take packet Take powder l 1 packet 1 packet packet Clini cs every day every day Take 1 by oral by oral packet route as route as every day needed. needed. by oral route as needed. hyoscyamine hyoscyamine No hyoscyamin [place] 0.125 mg 0.125 mg e 0.125 mg C ommuni disintegrat disintegrat disintegra ty ing tablet ing tablet ting [facility] tablet l Clinics pantoprazol pantoprazol No pantoprazo [place] e 40 mg e 40 mg le 40 mg Commu ni tablet,hodan tablet,hodan tablet,del ty yed release yed release ayed H ospita TAKE 1 TAKE 1 release l TABLET BY TABLET BY TAKE 1 Cli nics MOUTH EVERY MOUTH EVERY TABLET BY DAY DAY MOUTH EVERY DAY acetylcyste acetylcyste No 1capsul BID acetylcyst [place] ine 600 mg ine 600 mg e(s) eine 600 Communi capsule capsule mg capsule ty Take 1 Take 1 Take 1 Hospita capsule capsule capsule l twice a day twice a day twice a Clinics by oral by oral day by route. route. oral route. Artificial Artificial No 1drop(s Q1D Artificial [place] Tears Tears ) Tears Communi (polyvinyl (polyvinyl (polyvinyl ty alcohol) alcohol) alcohol) [facility] 1.4 % eye 1.4 % eye 1.4 % eye l drops Apply drops Apply drops Clinics 1 drop 1 drop Apply 1 every day every day drop every by by day by ophthalmic ophthalmic ophthalmic route. route. route. Effexor XR Effexor XR No 1capsul Q1D Effexor XR [place] 75 mg 75 mg e(s) 75 mg Communi capsule,ext capsule,ext capsule,ex ty ended ended tended Hospita release release release l Take 1 Take 1 Take 1 Clinics capsule capsule capsule every day every day every day by oral by oral by oral route for route for route for 90 days. 90 days. 90 days. hyoscyamine hyoscyamine No hyoscyamin [place] 0.125 mg 0.125 mg e 0.125 mg C om[facility]i disintegrat disintegrat disintegra ty ing tablet ing tablet ting [facility] tablet l Clinics pantoprazol pantoprazol No pantoprazo [place] e 40 mg e 40 mg le 40 mg Commu ni tablet,hodan tablet,hodan tablet,del ty yed release yed release ayed H ospita TAKE 1 TAKE 1 release l TABLET BY TABLET BY TAKE 1 Cli nics MOUTH EVERY MOUTH EVERY TABLET BY DAY DAY MOUTH EVERY DAY acetylcyste acetylcyste No 1capsul BID acetylcyst [place] ine 600 mg ine 600 mg e(s) eine 600 Communi capsule capsule mg capsule ty Take 1 Take 1 Take 1 Hospita capsule capsule capsule l twice a day twice a day twice a Clinics by oral by oral day by route. route. oral route. Artificial Artificial No 1drop(s Q1D Artificial [place] Tears Tears ) Tears Communi (polyvinyl (polyvinyl (polyvinyl ty alcohol) alcohol) alcohol) [facility] 1.4 % eye 1.4 % eye 1.4 % eye l drops Apply drops Apply drops Clinics 1 drop 1 drop Apply 1 every day every day drop every by by day by ophthalmic ophthalmic ophthalmic route. route. route. Effexor XR Effexor XR No 1capsul Q1D Effexor XR [place] 75 mg 75 mg e(s) 75 mg Communi capsule,ext capsule,ext capsule,ex ty ended ended tended Hospita release release release l Take 1 Take 1 Take 1 Clinics capsule capsule capsule every day every day every day by oral by oral by oral route for route for route for 90 days. 90 days. 90 days. hyoscyamine hyoscyamine No hyoscyamin [place] 0.125 mg 0.125 mg e 0.125 mg C om[facility]i disintegrat disintegrat disintegra ty ing tablet ing tablet ting [facility] tablet l Clinics pantoprazol pantoprazol No pantoprazo [place] e 40 mg e 40 mg le 40 mg Commu ni tablet,hodan tablet,hodan tablet,del ty yed release yed release ayed H ospita TAKE 1 TAKE 1 release l TABLET BY TABLET BY TAKE 1 Cli nics MOUTH EVERY MOUTH EVERY TABLET BY DAY DAY MOUTH EVERY DAY acyclovir acyclovir No 1 Q1D acyclovir [place] 400 mg 400 mg 400 mg Communi tablet Take tablet Take tablet ty 1 tablet 1 tablet Take 1 Hospi ta every day every day tablet l by oral by oral every day Clin ics route for route for by oral 30 days. 30 days. route for 30 days. amoxicillin amoxicillin No amoxicilli [place] [phone] 875 Communi mg-potassiu mg-potassiu mg-potassi ty m m um Hospita clavulanate clavulanate clavulanat l 125 mg 125 mg e 125 mg Clinics tablet TAKE tablet TAKE tablet 1 TABLET BY 1 TABLET BY TAKE 1 MOUTH EVERY MOUTH EVERY TABLET BY 12 HOURS 12 HOURS MOUTH EVERY 12 HOURS metronidazo metronidazo No metronidaz [place] le 500 mg le 500 mg ole 500 mg Communi tablet TAKE tablet TAKE tablet ty 1 TABLET BY 1 TABLET BY TAKE 1 Hospita MOUTH EVERY MOUTH EVERY TABLET BY l 8 HOURS 8 HOURS MOUTH Clinics EVERY 8 HOURS ondansetron ondansetron No ondansetro [place] 4 mg 4 mg n 4 mg Communi disintegrat disintegrat disintegra ty ing tablet ing tablet ting [facility] tablet l Clinics Xifaxan 550 Xifaxan 550 No 1 BID Xifaxan [place] mg tablet mg tablet 550 mg Com ricci Take 1 Take 1 tablet ty tablet tablet Take 1 Hospita twice a day twice a day tablet l by oral by oral twice a Clinic s route. route. day by oral route. acyclovir acyclovir No acyclovir [place] 400 mg 400 mg 400 mg Communi [...] by oral route. metronidazo metronidazo No metronidaz [place] le 500 mg le 500 mg ole 500 mg Communi tablet TAKE tablet TAKE tablet ty 1 TABLET BY 1 TABLET BY TAKE 1 Hospita MOUTH EVERY MOUTH EVERY TABLET BY l 8 HOURS 8 HOURS MOUTH Clinics EVERY 8 HOURS ondansetron ondansetron No ondansetro [place] 4 mg 4 mg n 4 mg Communi disintegrat disintegrat disintegra ty ing tablet ing tablet ting [facility] tablet l Clinics pantoprazol pantoprazol No pantoprazo [place] e 40 mg e 40 mg le 40 mg Commu ni tablet,hodan tablet,hodan tablet,del ty yed release yed release ayed H ospita release l Clinics peg peg No peg [place] [id number]-electr 3350-electr 3350-elect [facility] olytes 236 olytes 236 rolytes ty gram-22.74 gram-22.74 236 [facility] gram-6.74 gram-6.74 gram-22.74 l gram-5.86 gram-5.86 gram-6.74 Clinics gram gram gram-5.86 solution solution gram MIX AND MIX AND solution DRINK DRINK MIX AND DIRECTED DIRECTED DRINK DIRECTED sucralfate sucralfate No 1 QID sucralfate [place] 1 gram 1 gram 1 gram [facility] tablet Take tablet Take tablet ty 1 tablet 4 1 tablet 4 Take 1 [facility] times a day times a day tablet 4 l by oral by oral times a Clinic s route. route. day by oral route. venlafaxine venlafaxine No venlafaxin [place] ER 75 mg ER 75 mg e ER 75 mg [facility] capsule,ext capsule,ext capsule,ex ty ended ended tended Hospita release 24 release 24 release 24 l hr hr hr Clinics Xifaxan 550 Xifaxan 550 No Xifaxan [place] mg tablet mg tablet 550 mg Com ricci Take 1 Take 1 tablet ty tablet tablet Take 1 Hospita twice a day twice a day tablet l by oral by oral twice a Clinic s route. route. day by oral route. dexamethaso dexamethaso No 10mg dexamethas [place] ne sodium ne sodium one sodium [facility] phosphate phosphate phosphate ty 10 mg/mL 10 mg/mL 10 mg/mL [facility] injection injection injection l solution solution solution Cli nics Take 10 mg Take 10 mg Take 10 mg by by by injection injection injection route. route. route. dicyclomine dicyclomine No 1 TID dicyclomin [place] 20 mg 20 mg e 20 mg [facility] tablet Take tablet Take tablet ty 1 tablet 3 1 tablet 3 Take 1 [facility] times a day times a day tablet 3 l by oral by oral times a Clinic s route as route as day by needed. needed. oral route as needed. gabapentin gabapentin No 1capsul BID gabapentin [place] 300 mg 300 mg e(s) 300 mg [facility] capsule capsule capsule ty Take 1 Take 1 Take 1 Hospita capsule capsule capsule l twice a day twice a day twice a Clinics by oral by oral day by route. route. oral route. montelukast montelukast No 1 Q1D montelukas [place] 10 mg 10 mg t 10 mg [facility] tablet Take tablet Take tablet ty 1 tablet 1 tablet Take 1 Hospi ta every day every day tablet l by oral by oral every day Clin ics route. route. by oral route. acyclovir 5 acyclovir 5 No acyclovir [place] % topical % topical 5 % Commu [...] Bactrim DS No 1 Q12H Bactrim DS [place] 800 mg-160 800 mg-160 800 mg-160 [facility] mg tablet mg tablet mg tablet ty Take 1 Take 1 Take 1 Hospita tablet tablet tablet l every 12 every 12 every 12 Cli nics hours by hours by hours by oral route oral route oral route for 10 for 10 for 10 days. days. days. diclofenac diclofenac No diclofenac [place] 1 % topical 1 % topical 1 [...] route. valacyclovi valacyclovi No 1 BID valacyclov [place] r 1 gram r 1 gram ir 1 gram [facility] tablet Take tablet Take tablet ty 1 tablet 1 tablet Take 1 Hospi ta twice a day twice a day tablet l by oral by oral twice a Clinic s route. route. day by oral route. acyclovir 5 acyclovir 5 No acyclovir [place] % topical % topical 5 % Commu ni ointment ointment topical ty APPLY TO APPLY TO ointment [facility] THE THE APPLY TO l AFFECTED AFFECTED THE Clinics AREA EVERY AREA EVERY AFFECTED 2 HOURS 2 HOURS AREA EVERY DURING DURING 2 HOURS AWAKE HOURS AWAKE HOURS DURING FOR 4 DAYS FOR 4 DAYS AWAKE HOURS FOR 4 DAYS diclofenac diclofenac No diclofenac [place] 1 % topical 1 % topical 1 % [facility] gel APPLY 2 gel APPLY 2 topical ty GRAMS GRAMS gel APPLY Hospita TOPICALLY TOPICALLY 2 GRAMS l TO THE TO THE TOPICALLY Clinic s AFFECTED AFFECTED TO THE AREA FOUR AREA FOUR AFFECTED TIMES DAILY TIMES DAILY AREA FOUR TIMES DAILY phenazopyri phenazopyri No phenazopyr [place] dine 200 mg dine 200 mg idine 200 [facility] tablet TAKE tablet TAKE mg tablet ty 1 TABLET BY 1 TABLET BY TAKE 1 Hospita MOUTH EVERY MOUTH EVERY TABLET BY l 8 HOURS 8 HOURS MOUTH Clinics EVERY 8 HOURS sulfamethox sulfamethox No sulfametho [place] azole 800 azole 800 xazole 800 [facility] mg-trimetho mg-trimetho mg-trimeth ty prim 160 mg prim 160 mg oprim 160 [facility]ospita tablet TAKE tablet TAKE mg tablet l 1 TABLET BY 1 TABLET BY TAKE 1 Clinics MOUTH EVERY MOUTH EVERY TABLET BY 12 HOURS 12 HOURS MOUTH FOR 10 DAYS FOR 10 DAYS EVERY 12 HOURS FOR 10 DAYS valacyclovi valacyclovi No valacyclov [place] r 1 gram r 1 gram ir 1 gram [facility] tablet TAKE tablet TAKE tablet ty 1 TABLET BY 1 TABLET BY TAKE 1 Hospita MOUTH TWICE MOUTH TWICE TABLET BY l DAILY DAILY MOUTH Clinics TWICE DAILY acyclovir 5 acyclovir 5 No acyclovir [place] % topical % topical 5 % Com[facility] ni ointment ointment topical ty APPLY TO APPLY TO ointment [facility] THE THE APPLY TO l AFFECTED AFFECTED THE Clinics AREA EVERY AREA EVERY AFFECTED 2 HOURS 2 HOURS AREA EVERY DURING DURING 2 HOURS AWAKE HOURS AWAKE HOURS DURING FOR 4 DAYS FOR 4 DAYS AWAKE HOURS FOR 4 DAYS cefuroxime cefuroxime No cefuroxime [place] axetil 500 axetil 500 axetil 500 [facility] mg tablet mg tablet mg tablet ty TAKE 1 TAKE 1 TAKE 1 Hospita TABLET BY TABLET BY TABLET BY l MOUTH EVERY MOUTH EVERY MOUTH Clinics 12 HOURS 12 HOURS EVERY 12 FOR 7 DAYS FOR 7 DAYS HOURS FOR 7 DAYS diclofenac diclofenac No diclofenac [place] 1 % topical 1 % topical 1 % [facility] gel APPLY 2 gel APPLY 2 topical ty GRAMS GRAMS gel APPLY Hospita TOPICALLY TOPICALLY 2 GRAMS l TO THE TO THE TOPICALLY Clinic s AFFECTED AFFECTED TO THE AREA FOUR AREA FOUR AFFECTED TIMES DAILY TIMES DAILY AREA FOUR TIMES DAILY dicyclomine dicyclomine No dicyclomin [place] 20 mg 20 mg e 20 mg [facility] tablet TAKE tablet TAKE tablet ty 1 TABLET BY 1 TABLET BY TAKE 1 Hospita MOUTH 4 MOUTH 4 TABLET BY l TIMES A DAY TIMES A DAY MOUTH 4 Clinics NEEDED NEEDED TIMES A DAY NEEDED phenazopyri phenazopyri No phenazopyr [place] dine 200 mg dine 200 mg idine 200 [facility] tablet TAKE tablet TAKE mg tablet ty 1 TABLET BY 1 TABLET BY TAKE 1 Hospita MOUTH EVERY MOUTH EVERY TABLET BY l 8 HOURS FOR 8 HOURS FOR MOUTH Clinics 2 DAYS 2 DAYS EVERY 8 HOURS FOR 2 DAYS sulfamethox sulfamethox No sulfametho [place] azole 800 azole 800 xazole 800 [facility] mg-trimetho mg-trimetho mg-trimeth ty prim 160 mg prim 160 mg oprim 160 Hospita tablet TAKE tablet TAKE mg tablet l 1 TABLET BY 1 TABLET BY TAKE 1 Clinics MOUTH EVERY MOUTH EVERY TABLET BY 12 HOURS 12 HOURS MOUTH FOR 10 DAYS FOR 10 DAYS EVERY 12 HOURS FOR 10 DAYS valacyclovi valacyclovi No valacyclov [place] r 1 gram r 1 gram ir 1 gram [facility] tablet TAKE tablet TAKE tablet ty 1 TABLET BY 1 TABLET BY TAKE 1 Hospita MOUTH TWICE MOUTH TWICE TABLET BY l DAILY DAILY MOUTH Clinics TWICE DAILY acyclovir 5 acyclovir 5 No acyclovir [place] % topical % topical 5 % Com[facility] ni ointment ointment topical ty APPLY TO APPLY TO ointment [facility] THE THE APPLY TO l AFFECTED AFFECTED THE Clinics AREA EVERY AREA EVERY AFFECTED 2 HOURS 2 HOURS AREA EVERY DURING DURING 2 HOURS AWAKE HOURS AWAKE HOURS DURING FOR 4 DAYS FOR 4 DAYS AWAKE HOURS FOR 4 DAYS amoxicillin amoxicillin No amoxicilli [place] 500 500 n 500 [facility] mg-potassiu mg-potassiu [...] FOR 7 DAYS amoxicillin amoxicillin No amoxicilli [place] [id number] n 875 [facility] mg-potassiu mg-potassiu mg-potassi ty m m um Hospita clavulanate clavulanate clavulanat l 125 mg 125 mg e 125 mg Clinics tablet TAKE tablet TAKE tablet 1 TABLET BY 1 TABLET BY TAKE 1 MOUTH TWICE MOUTH TWICE TABLET BY DAILY FOR 7 DAILY FOR 7 MOUTH DAYS DAYS TWICE DAILY FOR 7 DAYS cefuroxime cefuroxime No cefuroxime [place] axetil 500 axetil 500 axetil 500 [facility] mg tablet mg tablet mg tablet ty TAKE 1 TAKE 1 TAKE 1 Hospita TABLET BY TABLET BY TABLET BY l MOUTH EVERY MOUTH EVERY MOUTH Clinics 12 HOURS 12 HOURS EVERY 12 FOR 7 DAYS FOR 7 DAYS HOURS FOR 7 DAYS diclofenac diclofenac No diclofenac [place] 1 % topical 1 % topical 1 % [facility] gel APPLY 2 gel APPLY 2 topical ty GRAMS GRAMS gel APPLY Hospita TOPICALLY TOPICALLY 2 GRAMS l TO THE TO THE TOPICALLY Clinic s AFFECTED AFFECTED TO THE AREA FOUR AREA FOUR AFFECTED TIMES DAILY TIMES DAILY AREA FOUR TIMES DAILY dicyclomine dicyclomine No dicyclomin [place] 20 mg 20 mg e 20 mg [facility] tablet TAKE tablet TAKE tablet ty 1 TABLET BY 1 TABLET BY TAKE 1 Hospita MOUTH 4 MOUTH 4 TABLET BY l TIMES A DAY TIMES A DAY MOUTH 4 Clinics NEEDED NEEDED TIMES A DAY NEEDED estradiol estradiol No estradiol [place] 0.01% (0.1 0.01% (0.1 0.01% (0.1 [facility] mg/gram) mg/gram) mg/gram) ty vaginal vaginal vaginal Hospit a cream cream cream l INSERT 1 INSERT 1 INSERT 1 Cli nics GRAM INTO GRAM INTO GRAM INTO VAGINA VAGINA VAGINA TWICE A TWICE A TWICE A WEEK AT WEEK AT WEEK AT NIGHT. NIGHT. NIGHT. fluconazole fluconazole No fluconazol [place] 150 mg 150 mg e 150 mg [facility] tablet TAKE tablet TAKE tablet ty 1 TABLET BY 1 TABLET BY TAKE 1 Hospita MOUTH EVERY MOUTH EVERY TABLET BY l 72 HOURS 72 HOURS MOUTH Clinic s EVERY 72 HOURS metoprolol metoprolol No metoprolol [place] succinate succinate succinate [facility] ER 25 mg ER 25 mg ER 25 mg ty tablet,exte tablet,exte tablet,ext Hospita nded nded ended l release 24 release 24 release 24 Clinics hr TAKE 1 hr TAKE 1 hr TAKE 1 TABLET BY TABLET BY TABLET BY MOUTH EVERY MOUTH EVERY MOUTH DAY DAY EVERY DAY nitrofurant nitrofurant No nitrofuran [place] oin oin toin [facility] monohydrate monohydrate monohydrat ty /macrocryst /macrocryst e/macrocry Hospita als 100 mg als 100 mg stals 100 l capsule capsule mg capsule Cli nics oxybutynin oxybutynin No oxybutynin [place] chloride ER chloride ER chloride [facility] 5 mg 5 mg ER 5 mg ty tablet,exte tablet,exte tablet,ext Hospita nded nded ended l release 24 release 24 release 24 Clinics hr TAKE 1 hr TAKE 1 hr TAKE 1 TABLET BY TABLET BY TABLET BY MOUTH EVERY MOUTH EVERY MOUTH DAY DAY EVERY DAY phenazopyri phenazopyri No phenazopyr [place] dine 200 mg dine 200 mg idine 200 [facility] tablet TAKE tablet TAKE mg tablet ty 1 TABLET BY 1 TABLET BY TAKE 1 Hospita MOUTH EVERY MOUTH EVERY TABLET BY l 8 HOURS FOR 8 HOURS FOR MOUTH Clinics 2 DAYS 2 DAYS EVERY 8 HOURS FOR 2 DAYS sulfamethox sulfamethox No sulfametho [place] azole 800 azole 800 xazole 800 Communi [...] Suprax 400 No 1capsul Q1D Suprax 400 [place] mg capsule mg capsule e(s) mg capsule [facility] Take 1 Take 1 Take 1 ty capsule capsule capsule Hospit a every day every day every day l by oral by oral by oral Clinic s route for 7 route for 7 route for days. days. 7 days. valacyclovi valacyclovi No valacyclov [place] r 1 gram r 1 gram ir 1 gram [facility] tablet TAKE tablet TAKE tablet ty 1 TABLET BY 1 TABLET BY TAKE 1 Hospita MOUTH TWICE MOUTH TWICE TABLET BY l DAILY DAILY MOUTH Clinics TWICE DAILY acyclovir 5 acyclovir 5 No acyclovir [place] % topical % topical 5 % Commu ni ointment ointment topical ty APPLY TO APPLY TO ointment [facility] THE THE APPLY TO l AFFECTED AFFECTED THE Clinics AREA EVERY AREA EVERY AFFECTED 2 HOURS 2 HOURS AREA EVERY DURING DURING 2 HOURS AWAKE HOURS AWAKE HOURS DURING FOR 4 DAYS FOR 4 DAYS AWAKE HOURS FOR 4 DAYS estradiol estradiol No estradiol [place] 0.01% (0.1 0.01% (0.1 0.01% (0.1 [facility] mg/gram) mg/gram) mg/gram) ty vaginal vaginal vaginal Hospit a cream cream cream l INSERT 1 INSERT 1 INSERT 1 Cli nics GRAM INTO GRAM INTO GRAM INTO VAGINA VAGINA VAGINA TWICE A TWICE A TWICE A WEEK AT WEEK AT WEEK AT NIGHT. NIGHT. NIGHT. metoprolol metoprolol No metoprolol [place] succinate succinate succinate [facility] ER 25 mg [...] CR 25 No 1 Q1D Paxil CR [place] mg mg 25 mg [facility] tablet,exte tablet,exte tablet,ext ty nded nded ended Hospita release release release l Take 1 Take 1 Take 1 Clinics tablet tablet tablet every day every day every day by oral by oral by oral route. route. route. Suprax 400 Suprax 400 No 1capsul Q1D Suprax 400 [place] mg capsule mg capsule e(s) mg capsule [...] HOURS 5 days valacyclovi valacyclovi No valacyclov [place] r 1 gram r 1 gram ir 1 gram [facility] tablet TAKE tablet TAKE tablet ty 1 TABLET BY 1 TABLET BY TAKE 1 Hospita MOUTH TWICE MOUTH TWICE TABLET BY l DAILY DAILY MOUTH Clinics TWICE DAILY Zithromax Zithromax No Zithromax [place] Z-Andrew 250 Z-Andrew 250 Z-Andrew 250 Communi [...] DAYS acyclovir 5 acyclovir 5 No acyclovir [place] % topical % topical 5 % Commu ni ointment ointment topical ty APPLY TO APPLY TO ointment [facility] THE THE APPLY TO l AFFECTED AFFECTED THE Clinics AREA EVERY AREA EVERY AFFECTED 2 HOURS 2 HOURS AREA EVERY DURING DURING 2 HOURS AWAKE HOURS AWAKE HOURS DURING FOR 4 DAYS FOR 4 DAYS AWAKE HOURS FOR 4 DAYS estradiol estradiol No estradiol [place] 0.01% (0.1 0.01% (0.1 0.01% (0.1 [facility] mg/gram) mg/gram) mg/gram) ty vaginal vaginal vaginal Hospit a cream cream cream l INSERT 1 INSERT 1 INSERT 1 Cli nics GRAM INTO GRAM INTO GRAM INTO VAGINA VAGINA VAGINA TWICE A TWICE A TWICE A WEEK AT WEEK AT WEEK AT NIGHT. NIGHT. NIGHT. fluconazole fluconazole No fluconazol [place] 150 mg 150 mg e 150 mg [facility] tablet tablet tablet ty Hospita l Clinics hydroxyzine hydroxyzine No 1 TID hydroxyzin [place] HCl 25 mg HCl 25 mg e [...] Kenalog 40 No 60mg Q1D Kenalog 40 [place] mg/mL mg/mL mg/mL [facility] suspension suspension suspension ty for for for Hospita injection injection injection l Take 60 mg Take 60 mg Take 60 mg Clinics every day every day every day by by by injection injection injection route. route. route. metoprolol metoprolol No metoprolol [place] succinate succinate succinate [facility] ER 25 mg ER 25 mg ER 25 mg ty tablet,exte tablet,exte tablet,ext Hospita nded nded ended l release 24 release 24 release 24 Clinics hr TAKE 1 hr TAKE 1 hr TAKE 1 TABLET BY TABLET BY TABLET BY MOUTH EVERY MOUTH EVERY MOUTH DAY DAY EVERY DAY omeprazole omeprazole No omeprazole [place] 20 mg 20 mg 20 mg [facility] capsule,del capsule,del capsule,de ty ayed ayed layed [facility]ospita release release release l TAKE 1 TAKE 1 TAKE 1 Clinics CAPSULE BY CAPSULE BY CAPSULE BY MOUTH DAILY MOUTH DAILY MOUTH DAILY paroxetine paroxetine No paroxetine [place] ER 25 mg ER 25 mg ER 25 mg Com ricci tablet,exte tablet,exte tablet,ext ty nded nded ended Hospita release 24 release 24 release 24 l hr TAKE 1 hr TAKE 1 hr TAKE 1 Clinics TABLET BY TABLET BY TABLET BY MOUTH EVERY MOUTH EVERY MOUTH DAY DAY EVERY DAY tobramycin tobramycin No tobramycin [place] 0.3 0.3 0.3 [facility] %-dexametha %-dexametha %-dexameth [...] FOR 5 DAYS triamcinolo triamcinolo No triamcinol [place] ne ne one [facility] acetonide acetonide acetonide [...] days days days trimethopri trimethopri No trimethopr [place] m 100 mg m 100 mg im 100 mg [facility] tablet TAKE tablet TAKE tablet ty 1 TABLET BY 1 TABLET BY TAKE 1 Hospita MOUTH EVERY MOUTH EVERY TABLET BY l DAY DAY MOUTH Clinics EVERY DAY valacyclovi valacyclovi No valacyclov [place] r 1 gram r 1 gram ir 1 gram [facility] tablet TAKE tablet TAKE tablet ty 1 TABLET BY 1 TABLET BY TAKE 1 Hospita MOUTH TWICE MOUTH TWICE TABLET BY l DAILY prn DAILY prn MOUTH Clin ics TWICE DAILY prn acyclovir 5 acyclovir 5 No acyclovir [place] % topical % topical 5 % Commu [...] DAYS Augmentin Augmentin No 1 Q12H Augmentin [place] 500 mg-125 500 mg-125 500 mg-125 [facility] mg tablet mg tablet mg tablet ty Take 1 Take 1 Take 1 Hospita tablet tablet tablet l every 12 every 12 every 12 Cli nics hours by hours by hours by oral route oral route oral route for 10 for 10 for 10 days. days. days. cephalexin cephalexin No cephalexin [place] 500 mg 500 mg 500 mg [facility] capsule capsule capsule ty TAKE 1 TAKE 1 TAKE 1 Hospita CAPSULE BY CAPSULE BY CAPSULE BY l MOUTH TWICE MOUTH TWICE MOUTH Clinics DAILY DAILY TWICE DAILY estradiol estradiol No estradiol [place] 0.01% (0.1 0.01% (0.1 0.01% (0.1 [facility] mg/gram) mg/gram) mg/gram) ty vaginal vaginal vaginal Hospit a cream cream cream l INSERT 1 INSERT 1 INSERT 1 Cli nics GRAM INTO GRAM INTO GRAM INTO VAGINA VAGINA VAGINA TWICE A TWICE A TWICE A WEEK AT WEEK AT WEEK AT NIGHT. NIGHT. NIGHT. fluconazole fluconazole No fluconazol [place] 150 mg 150 mg e 150 mg [facility] tablet tablet tablet ty [facility]ospita l Clinics hydroxyzine hydroxyzine No hydroxyzin [place] HCl 25 mg HCl 25 mg e [...] Kenalog 40 No 60mg Q1D Kenalog 40 [place] mg/mL mg/mL mg/mL [facility] suspension suspension suspension ty for for for Hospita injection injection injection l Take 60 mg Take 60 mg Take 60 mg Clinics every day every day every day by by by injection injection injection route. route. route. metoprolol metoprolol No metoprolol [place] succinate succinate succinate [facility] ER 25 mg ER 25 mg ER 25 mg ty tablet,exte tablet,exte tablet,ext Hospita nded nded ended l release 24 release 24 release 24 Clinics hr TAKE 1 hr TAKE 1 hr TAKE 1 TABLET BY TABLET BY TABLET BY MOUTH EVERY MOUTH EVERY MOUTH DAY DAY EVERY DAY metronidazo metronidazo No 1 Q8H metronidaz [place] le 500 mg le 500 mg ole 500 mg [facility] tablet Take tablet Take tablet ty 1 tablet 1 tablet Take 1 Hospi ta every 8 every 8 tablet l hours by hours by every 8 Clin ics oral route oral route hours by for 7 days. for 7 days. oral route for 7 days. omeprazole omeprazole No omeprazole [place] 20 mg 20 mg 20 mg [facility] capsule,del capsule,del capsule,de ty ayed ayed layed [facility]ospita release release release l TAKE 1 TAKE 1 TAKE 1 Clinics CAPSULE BY CAPSULE BY CAPSULE BY MOUTH DAILY MOUTH DAILY MOUTH DAILY ondansetron ondansetron No 1 Q6H ondansetro [place] 4 mg 4 mg n 4 mg [...] for 6 days. paroxetine paroxetine No paroxetine [place] ER 25 mg ER 25 mg ER 25 mg Com [facility] tablet,exte tablet,exte tablet,ext ty nded nded ended Hospita release 24 release 24 release 24 l hr TAKE 1 hr TAKE 1 hr TAKE 1 Clinics TABLET BY TABLET BY TABLET BY MOUTH EVERY MOUTH EVERY MOUTH DAY DAY EVERY DAY tobramycin tobramycin No tobramycin [place] 0.3 0.3 0.3 [facility] %-dexametha %-dexametha %-dexameth [...] FOR 5 DAYS triamcinolo triamcinolo No triamcinol [place] ne ne one [facility] acetonide acetonide acetonide [...] FOR 7 DAYS trimethopri trimethopri No trimethopr [place] m 100 mg m 100 mg im 100 mg [facility] tablet TAKE tablet TAKE tablet ty 1 TABLET BY 1 TABLET BY TAKE 1 [facility]ospita MOUTH EVERY MOUTH EVERY TABLET BY l DAY DAY MOUTH Clinics EVERY DAY valacyclovi valacyclovi No valacyclov [place] r 1 gram r 1 gram ir 1 gram [facility] tablet TAKE tablet TAKE tablet ty 1 TABLET BY 1 TABLET BY TAKE 1 Hospita MOUTH TWICE MOUTH TWICE TABLET BY l DAILY prn DAILY prn MOUTH Clin ics TWICE DAILY prn acyclovir 5 acyclovir 5 No acyclovir [place] % topical % topical 5 % Commu ni ointment ointment topical ty APPLY TO APPLY TO ointment [facility] THE THE APPLY TO l AFFECTED AFFECTED THE Clinics AREA EVERY AREA EVERY AFFECTED 2 HOURS 2 HOURS AREA EVERY DURING DURING 2 HOURS AWAKE HOURS AWAKE HOURS DURING FOR 4 DAYS FOR 4 DAYS AWAKE HOURS FOR 4 DAYS amoxicillin amoxicillin No amoxicilli [place] 500 500 n 500 [facility] mg-potassiu mg-potassiu [...] DAYS benzonatate benzonatate No 1capsul TID benzonatat [place] 100 mg 100 mg e(s) e 100 [...] ty kit TEST [facility] TEST l TODAY TODAY DIRECTED Clinics TODAY cephalexin cephalexin No cephalexin [place] 500 mg 500 mg 500 mg [facility] capsule capsule capsule ty TAKE 1 TAKE 1 TAKE 1 [facility]ospita CAPSULE BY CAPSULE BY CAPSULE BY l MOUTH TWICE MOUTH TWICE MOUTH Clinics DAILY DAILY TWICE DAILY estradiol estradiol No estradiol [place] 0.01% (0.1 0.01% (0.1 0.01% (0.1 [facility] mg/gram) mg/gram) mg/gram) ty vaginal vaginal vaginal Hospit a cream cream cream l INSERT 1 INSERT 1 INSERT 1 Cli nics GRAM INTO GRAM INTO GRAM INTO VAGINA VAGINA VAGINA TWICE A TWICE A TWICE A WEEK AT WEEK AT WEEK AT NIGHT. NIGHT. NIGHT. fluconazole fluconazole No fluconazol [place] 150 mg 150 mg e 150 mg [facility] tablet tablet tablet ty [facility]osp[facility] l Clinics hydroxyzine hydroxyzine No hydroxyzin [place] HCl 25 mg HCl 25 mg e [...] Kenalog 40 No 60mg Q1D Kenalog 40 [place] mg/mL mg/mL mg/mL [facility] suspension suspension suspension ty for for for Hospita injection injection injection l Take 60 mg Take 60 mg Take 60 mg Clinics every day every day every day by by by injection injection injection route. route. route. meloxicam meloxicam No 1 Q1D meloxicam [place] 15 mg 15 mg 15 mg [facility] tablet Take tablet Take tablet ty 1 tablet 1 tablet Take 1 Hospi ta every day every day tablet l by oral by oral every day Clin ics route for route for by oral 30 days. 30 days. route for 30 days. metoprolol metoprolol No metoprolol [place] succinate succinate succinate [facility] ER 25 mg ER 25 mg ER 25 mg ty tablet,exte tablet,exte tablet,ext Hospita nded nded ended l release 24 release 24 release 24 Clinics hr TAKE 1 hr TAKE 1 hr TAKE 1 TABLET BY TABLET BY TABLET BY MOUTH EVERY MOUTH EVERY MOUTH DAY DAY EVERY DAY metronidazo metronidazo No metronidaz [place] le 500 mg le 500 mg ole 500 mg [facility] tablet TAKE tablet TAKE tablet ty 1 TABLET BY 1 TABLET BY TAKE 1 Hospita MOUTH EVERY MOUTH EVERY TABLET BY l 8 HOURS FOR 8 HOURS FOR MOUTH Clinics 7 DAYS 7 DAYS EVERY 8 HOURS FOR 7 DAYS omeprazole omeprazole No omeprazole [place] 20 mg 20 mg 20 mg [facility] capsule,del capsule,del capsule,de ty ayed ayed layed [facility]ospita release release release l TAKE 1 TAKE 1 TAKE 1 Clinics CAPSULE BY CAPSULE BY CAPSULE BY MOUTH DAILY MOUTH DAILY MOUTH DAILY ondansetron ondansetron No ondansetro [place] 4 mg 4 mg n 4 mg [...] 6 DAYS NEEDED paroxetine paroxetine No paroxetine [place] ER 25 mg ER 25 mg ER 25 mg Com [facility]ci tablet,exte tablet,exte tablet,ext ty nded nded ended Hospita release 24 release 24 release 24 l hr TAKE 1 hr TAKE 1 hr TAKE 1 Clinics TABLET BY TABLET BY TABLET BY MOUTH EVERY MOUTH EVERY MOUTH DAY DAY EVERY DAY tobramycin tobramycin No tobramycin [place] 0.3 0.3 0.3 [facility] %-dexametha %-dexametha %-dexameth [...] DAYS tramadol 50 tramadol 50 No tramadol [place] mg tablet mg tablet 50 mg Comm uni tablet ty Hospita l Clinics triamcinolo triamcinolo No triamcinol [place] ne ne one [facility] acetonide acetonide acetonide [...] FOR 7 DAYS trimethopri trimethopri No trimethopr [place] m 100 mg m 100 mg im 100 mg [facility] tablet TAKE tablet TAKE tablet ty 1 TABLET BY 1 TABLET BY TAKE 1 [facility]ospita MOUTH EVERY MOUTH EVERY TABLET BY l DAY DAY MOUTH Clinics EVERY DAY valacyclovi valacyclovi No valacyclov [place] r 1 gram r 1 gram ir 1 gram [facility] tablet TAKE tablet TAKE tablet ty 1 TABLET BY 1 TABLET BY TAKE 1 Hospita MOUTH TWICE MOUTH TWICE TABLET BY l DAILY prn DAILY prn MOUTH Clin ics TWICE DAILY prn Zithromax Zithromax No Zithromax [place] Z-Andrew 250 Z-Andrew 250 Z-Andrew 250 Communi [...] ONCE DAYS DAYS DAILY FOR 4 DAYS cetirizine cetirizine No 1 Q1D cetirizine [place] 10 mg 10 mg 10 mg [facility] tablet Take tablet Take tablet ty 1 tablet 1 tablet Take 1 Hospi ta every day every day tablet l by oral by oral every day Clin ics route at route at by oral bedtime. bedtime. route at bedtime. estradiol estradiol No estradiol [place] 0.01% (0.1 0.01% (0.1 0.01% (0.1 [facility] mg/gram) mg/gram) mg/gram) ty vaginal vaginal vaginal Hospit a cream cream cream l INSERT 1 INSERT 1 INSERT 1 Cli nics GRAM INTO GRAM INTO GRAM INTO VAGINA VAGINA VAGINA TWICE A TWICE A TWICE A WEEK AT WEEK AT WEEK AT NIGHT. NIGHT. NIGHT. fluticasone fluticasone No 1spray( Q1D fluticason [place] propionate propionate s) e Com ricci 50 50 propionate ty mcg/actuati mcg/actuati 50 H [facility]spita on nasal on nasal mcg/actuat l spray,suspe spray,suspe ion nasal Clinics nsion [place] nsion [place] spray,susp 1 spray 1 spray ension every day every day [place] 1 by by spray intranasal intranasal every day route. route. by intranasal route. meclizine meclizine No 1 TID meclizine [place] 25 mg 25 mg 25 mg [facility] tablet Take tablet Take tablet ty 1 tablet 3 1 tablet 3 Take 1 H [facility]sp[facility] times a day times a day tablet 3 l by oral by oral times a Clinic s route as route as day by needed. needed. oral route as needed. ondansetron ondansetron No ondansetro [place] 4 mg 4 mg n 4 mg [facility] disintegrat disintegrat disintegra ty ing tablet ing tablet ting [facility] DISSOLVE 1 DISSOLVE 1 tablet l TABLET ON TABLET ON DISSOLVE 1 Clinics THE TONGUE THE TONGUE TABLET ON EVERY 6 EVERY 6 THE TONGUE HOURS FOR 6 HOURS FOR 6 EVERY 6 DAYS DAYS HOURS FOR NEEDED NEEDED 6 DAYS NEEDED propranolol propranolol No 1 TID propranolo [place] 10 mg 10 mg l 10 mg [facility] tablet Take tablet Take tablet ty 1 tablet 3 1 tablet 3 Take 1 [facility] times a day times a day tablet 3 l by oral by oral times a Clinic s route as route as day by needed. needed. oral route as needed. azelastine azelastine No azelastine [place] 205.5 mcg 205.5 mcg 205.5 mcg [facility] (0.15 %) (0.15 %) (0.15 %) ty nasal spray nasal spray nasal Hospita 1 SPRAY TO 1 SPRAY TO spray 1 l EACH EACH SPRAY TO Clinics NOSTRIL NOSTRIL EACH TWICE DAILY TWICE DAILY NOSTRIL TWICE DAILY azithromyci azithromyci No azithromyc [place] n 250 mg n 250 mg in 250 mg Co mmuni tablet tablet tablet ty Hospita l Clinics cetirizine cetirizine No cetirizine [place] 10 mg 10 mg 10 mg Communi tablet TAKE tablet TAKE tablet ty 1 TABLET BY 1 TABLET BY TAKE 1 Hospita MOUTH EVERY MOUTH EVERY TABLET BY l NIGHT AT NIGHT AT MOUTH Clinic s BEDTIME BEDTIME EVERY NIGHT AT BEDTIME estradiol estradiol No estradiol [place] 0.01% (0.1 0.01% (0.1 0.01% (0.1 Communi mg/gram) mg/gram) mg/gram) ty vaginal vaginal vaginal Hospit a cream cream cream l INSERT 1 INSERT 1 INSERT 1 Cli nics GRAM INTO GRAM INTO GRAM INTO VAGINA VAGINA VAGINA TWICE A TWICE A TWICE A WEEK AT WEEK AT WEEK AT NIGHT. NIGHT. NIGHT. fluticasone fluticasone No fluticason [place] propionate propionate e Com ricci 50 50 propionate ty mcg/actuati mcg/actuati 50 H ospita on nasal on nasal mcg/actuat l spray,suspe spray,suspe ion nasal Clinics nsion SHAKE nsion SHAKE spray,susp LIQUID AND LIQUID AND ension USE 1 SPRAY USE 1 SPRAY SHAKE IN EACH IN EACH LIQUID AND NOSTRIL NOSTRIL USE 1 EVERY DAY EVERY DAY SPRAY IN EACH NOSTRIL EVERY DAY hydroxyzine hydroxyzine No hydroxyzin [place] HCl 25 mg HCl 25 mg e HCl 25 C ommuni tablet TAKE tablet TAKE mg tablet ty 1 TABLET BY 1 TABLET BY TAKE 1 Hospita MOUTH EVERY MOUTH EVERY TABLET BY l 6 HOURS 6 HOURS MOUTH Cl inics NEEDED NEEDED EVERY 6 HOURS NEEDED meclizine meclizine No 1 TID meclizine [place] 25 mg 25 mg 25 mg Communi tablet Take tablet Take tablet ty 1 tablet 3 1 tablet 3 Take 1 H ospita times a day times a day tablet 3 l by oral by oral times a Clinic s route as route as day by needed. needed. oral route as needed. Medrol Medrol No 1dose Medrol [place] (Andrew) 4 mg (Andrew) 4 mg pk(s) (Andrew) 4 mg Communi tablets in tablets in tablets in ty a dose pack a dose pack a dose Hospita Take 1 dose Take 1 dose pack Take l pk by oral pk by oral 1 dose pk Clinics route as route as by oral directed. directed. route as directed. ondansetron ondansetron No ondansetro [place] 4 mg 4 mg n 4 mg Communi disintegrat disintegrat disintegra ty ing tablet ing tablet ting Hos romina DISSOLVE 1 DISSOLVE 1 tablet l TABLET ON TABLET ON DISSOLVE 1 Clinics THE TOUNGE THE TOUNGE TABLET ON EVERY 8 EVERY 8 THE TOUNGE HOURS HOURS EVERY 8 NEEDED NEEDED HOURS NEEDED propranolol propranolol No propranolo [place] 10 mg 10 mg l 10 mg Communi tablet TAKE tablet TAKE tablet ty 1 TABLET BY 1 TABLET BY TAKE 1 Hospita MOUTH THREE MOUTH THREE TABLET BY l TIMES DAILY TIMES DAILY MOUTH Clinics NEEDED NEEDED THREE TIMES DAILY NEEDED Vital Signs Vital Name Observation Time Observation Value Comments Source BP Diastolic 2022-03-27 00:00:00 85 mm[Hg] [facility] s Height 2022-03-27 00:00:00 63 [in_i] [facility] s BMI (Body Mass 2022-03-27 00:00:00 34.8 kg/m2 [facility] Index) [facility] s BP Systolic 2022-03-27 00:00:00 153 mm[Hg] [facility] s Body Weight 2022-03-27 00:00:00 3139.2 [oz_av] [facility] s BP Diastolic 2022-02-24 00:00:00 77 mm[Hg] [facility] s Height 2022-02-24 00:00:00 63 [in_i] [facility] s BMI (Body Mass 2022-02-24 00:00:00 34.8 kg/m2 [facility]) [facility] s BP Systolic 2022-02-24 00:00:00 143 mm[Hg] [facility] s Body Weight 2022-02-24 00:00:00 3139.2 [oz_av] [facility] s BP Diastolic 2022-01-23 00:00:00 80 mm[Hg] [facility] s Height 2022-01-23 00:00:00 63 [in_i] [facility] s BMI (Body Mass 2022-01-23 00:00:00 34.2 kg/m2 [facility] BP Systolic 2022-01-23 00:00:00 145 mm[Hg] [facility] s Body Weight 2022-01-23 00:00:00 3088 [oz_av] [facility] s BP Diastolic 2021-12-18 00:00:00 74 mm[Hg] [facility] s Height 2021-12-18 00:00:00 63 [in_i] [facility] s BMI (Body Mass 2021-12-18 00:00:00 34.7 kg/m2 [facility] s BP Systolic 2021-12-18 00:00:00 139 mm[Hg] [facility] s Body Weight 2021-12-18 00:00:00 3136 [oz_av] [facility] s BP Diastolic 2021-11-08 00:00:00 71 mm[Hg] [facility] s Height 2021-11-08 00:00:00 63 [in_i] [facility] s BMI (Body Mass 2021-11-08 00:00:00 35.3 kg/m2 [facility] s BP Systolic 2021-11-08 00:00:00 140 mm[Hg] [facility] s Body Weight 2021-11-08 00:00:00 3187.2 [oz_av] [facility] s BP Diastolic 2021-10-21 00:00:00 74 mm[Hg] [facility] s Height 2021-10-21 00:00:00 63 [in_i] [facility] s BMI (Body Mass 2021-10-21 00:00:00 35.3 kg/m2 [facility]) [facility] s BP Systolic 2021-10-21 00:00:00 147 mm[Hg] [facility] s Body Weight 2021-10-21 00:00:00 3184 [oz_av] [facility] s BP Diastolic 2021-09-20 00:00:00 71 mm[Hg] [facility] s Height 2021-09-20 00:00:00 63 [in_i] [facility] s BMI (Body Mass 2021-09-20 00:00:00 34.7 kg/m2 [facility] BP Systolic 2021-09-20 00:00:00 128 mm[Hg] [facility] s Body Weight 2021-09-20 00:00:00 3137 [oz_av] [facility] s BP Diastolic 2021-07-31 00:00:00 90 mm[Hg] [facility] s Height 2021-07-31 00:00:00 63 [in_i] [facility] s BMI (Body Mass 2021-07-31 00:00:00 34.9 kg/m2 [facility] s BP Systolic 2021-07-31 00:00:00 123 mm[Hg] [facility] s Body Weight 2021-07-31 00:00:00 3153.6 [oz_av] [facility] s BP Diastolic 2021-07-23 00:00:00 85 mm[Hg] [facility] s Height 2021-07-23 00:00:00 63 [in_i] [facility] s BMI (Body Mass 2021-07-23 00:00:00 35.6 kg/m2 [facility]) [facility] s BP Systolic 2021-07-23 00:00:00 151 mm[Hg] [facility] s Body Weight 2021-07-23 00:00:00 3216 [oz_av] [facility] s BP Diastolic 2021-06-24 00:00:00 81 mm[Hg] [facility] s Height 2021-06-24 00:00:00 63 [in_i] [facility] s BMI (Body Mass 2021-06-24 00:00:00 36.8 kg/m2 [facility]) [facility] s BP Systolic 2021-06-24 00:00:00 138 mm[Hg] [facility] s Body Weight 2021-06-24 00:00:00 3328 [oz_av] [facility] s BP Diastolic 2021-05-30 00:00:00 84 mm[Hg] [facility] s Height 2021-05-30 00:00:00 63 [in_i] [facility] s BMI (Body Mass 2021-05-30 00:00:00 36.5 kg/m2 [facility]) [facility] s BP Systolic 2021-05-30 00:00:00 144 mm[Hg] [facility] s Body Weight 2021-05-30 00:00:00 3296 [oz_av] [facility] s BP Diastolic 2021-04-09 00:00:00 68 mm[Hg] [facility] s Height 2021-04-09 00:00:00 63 [in_i] [facility] s BMI (Body Mass 2021-04-09 00:00:00 34.4 kg/m2 [facility] s BP Systolic 2021-04-09 00:00:00 143 mm[Hg] [facility] s Body Weight 2021-04-09 00:00:00 3107.2 [oz_av] [facility] s BP Diastolic 2021-03-14 00:00:00 80 mm[Hg] [facility] s Height 2021-03-14 00:00:00 63 [in_i] [facility] s BMI (Body Mass 2021-03-14 00:00:00 34.9 kg/m2 [facility] s BP Systolic 2021-03-14 00:00:00 145 mm[Hg] [facility] s Body Weight 2021-03-14 00:00:00 3155.2 [oz_av] [facility] s BP Diastolic 2021-03-04 00:00:00 76 mm[Hg] [facility] s Height 2021-03-04 00:00:00 63 [in_i] [facility] s BMI (Body Mass 2021-03-04 00:00:00 36.2 kg/m2 [facility] s BP Systolic 2021-03-04 00:00:00 139 mm[Hg] [facility] Body Weight 2021-03-04 00:00:00 3270.4 [oz_av] [facility] s BP Diastolic 2021-02-25 00:00:00 71 mm[Hg] [facility] s Height 2021-02-25 00:00:00 63 [in_i] [facility] s BMI (Body Mass 2021-02-25 00:00:00 36.5 kg/m2 [facility] s BP Systolic 2021-02-25 00:00:00 131 mm[Hg] [facility] Body Weight 2021-02-25 00:00:00 3292.8 [oz_av] [facility] s BP Diastolic 2021-01-14 00:00:00 85 mm[Hg] [facility] s Height 2021-01-14 00:00:00 63 [in_i] [facility] s BMI (Body Mass 2021-01-14 00:00:00 35.3 kg/m2 [facility]) [facility] s BP Systolic 2021-01-14 00:00:00 137 mm[Hg] [facility] Body Weight 2021-01-14 00:00:00 3184 [oz_av] [facility] s BP Diastolic 2020-10-16 00:00:00 61 mm[Hg] [facility] s Height 2020-10-16 00:00:00 63 [in_i] [facility] s BMI (Body Mass 2020-10-16 00:00:00 34.4 kg/m2 [facility]) [facility] s BP Systolic 2020-10-16 00:00:00 120 mm[Hg] [facility] Body Weight 2020-10-16 00:00:00 3104 [oz_av] [facility] s BP Diastolic 2020-09-28 00:00:00 86 mm[Hg] [facility] Height 2020-09-28 00:00:00 63 [in_i] [facility] s BMI (Body Mass 2020-09-28 00:00:00 33.9 kg/m2 [facility]) [facility] s BP Systolic 2020-09-28 00:00:00 129 mm[Hg] [facility] Body Weight 2020-09-28 00:00:00 3062.4 [oz_av] [facility] s BP Diastolic 2020-08-20 00:00:00 79 mm[Hg] [facility] s Height 2020-08-20 00:00:00 63 [in_i] [facility] s BMI (Body Mass 2020-08-20 00:00:00 33 kg/m2 [facility] s BP Systolic 2020-08-20 00:00:00 142 mm[Hg] [facility] Body Weight 2020-08-20 00:00:00 2979.2 [oz_av] [facility] s BP Diastolic 2020-08-13 00:00:00 93 mm[Hg] [facility] s Height 2020-08-13 00:00:00 63 [in_i] [facility] s BMI (Body Mass 2020-08-13 00:00:00 33.2 kg/m2 [facility] s BP Systolic 2020-08-13 00:00:00 149 mm[Hg] [facility] s Body Weight 2020-08-13 00:00:00 3001.6 [oz_av] [facility] s BP Diastolic 2020-07-26 00:00:00 74 mm[Hg] [facility] s Height 2020-07-26 00:00:00 63 [in_i] [facility] s BMI (Body Mass 2020-07-26 00:00:00 32.7 kg/m2 [facility] s BP Systolic 2020-07-26 00:00:00 133 mm[Hg] [facility] s Body Weight 2020-07-26 00:00:00 2956.8 [oz_av] [facility] s Procedures Procedure Date / Time Performing Clinician Source Performed CT, head, w/o contrast 2022-02-24 00:00:00 [facility] URINE CULTURE 2021-09-23 00:00:00 Provider, Not In [facility] POC URINALYSIS DIPSTICK 2021-08-21 19:36:00 Emily Vazquez [facility] [id number] 2021-08-21 19:36:00 Emily Vazquezist spital [facility] Carpal Tunnel Surgery [facility] Cholecystectomy [facility] Tubal Ligation [facility] Plan of Care Planned Activity Planned Date Details Comments Source Future Scheduled Test 2022-05-22 Hepatitis C screening [facility] 16:12:20 (procedure) [code = 309791803] Future Scheduled Test 2022-05-22 Screening for [facility] 16:12:20 malignant neoplasm of cervix (procedure) [code = 225716529] Future Scheduled Test 2022-05-22 BREAST CANCER [facility] 16:12:20 SCREENING [code = BREAST CANCER SCREENING] Future Scheduled Test 2022-05-22 COLONOSCOPY SCREENING [facility] 16:12:20 [code = COLONOSCOPY SCREENING] Future Scheduled Test 2022-05-22 SHINGLES VACCINES (1 [facility] 16:12:20 of 2) [code = SHINGLES VACCINES (1 of 2)] Future Scheduled Test 2022-05-22 65+ PNEUMOCOCCAL [facility] 16:12:20 VACCINE (1 - PCV) [code = 65+ PNEUMOCOCCAL VACCINE (1 - PCV)] Future Scheduled Test 2022-05-22 INFLUENZA VACCINE [facility] 16:12:20 [code = INFLUENZA VACCINE] Diagnostic Test 2022-03-27 rapid SARS CoV 2 Ag, [facility] Pending 00:00:00 QL [place], respiratory Hospital Clinics specimen [code = rapid SARS CoV 2 Ag, QL [place], respiratory specimen] Diagnostic Test 2022-03-27 rapid flu (A+B) [code [facility] Pending 00:00:00 = rapid flu (A+B)] Hospital Clinics Diagnostic Test 2022-03-27 urinalysis, dipstick [facility] Pending 00:00:00 [code = urinalysis, Hospital Clinics dipstick] Future Scheduled Test 2022-02-04 HEPATITIS B VACCINES [facility] 13:45:17 (1 of 3 - 3-dose series) [code = HEPATITIS B VACCINES (1 of 3 - 3-dose series)] Future Scheduled Test 2022-02-04 Hepatitis C screening [facility] 13:45:17 (procedure) [code = [id number]] Future Scheduled Test 2022-02-04 Screening for [facility] 13:45:17 malignant neoplasm of cervix (procedure) [code = 201720471] Future Scheduled Test 2022-02-04 BREAST CANCER [facility] 13:45:17 SCREENING [code = BREAST CANCER SCREENING] Future Scheduled Test 2022-02-04 COLONOSCOPY SCREENING [facility] 13:45:17 [code = COLONOSCOPY SCREENING] Future Scheduled Test 2022-02-04 SHINGLES VACCINES (1 [facility] 13:45:17 of 2) [code = SHINGLES VACCINES (1 of 2)] Future Scheduled Test 2022-02-04 65+ PNEUMOCOCCAL [facility] 13:45:17 VACCINE (1 - PCV) [code = 65+ PNEUMOCOCCAL VACCINE (1 - PCV)] Future Scheduled Test 2022-02-04 INFLUENZA VACCINE [facility] 13:45:17 [code = INFLUENZA VACCINE] Future Scheduled Test 2022-02-04 HEPATITIS B VACCINES [facility] 13:45:17 (1 of 3 - 3-dose series) [code = HEPATITIS B VACCINES (1 of 3 - 3-dose series)] Future Scheduled Test 2022-02-04 Hepatitis C screening [facility] 13:45:17 (procedure) [code = [id number]] Future Scheduled Test 2022-02-04 Screening for [facility] 13:45:17 malignant neoplasm of cervix (procedure) [code = 265903560] Future Scheduled Test 2022-02-04 BREAST CANCER [facility] 13:45:17 SCREENING [code = BREAST CANCER SCREENING] Future Scheduled Test 2022-02-04 COLONOSCOPY SCREENING [facility] 13:45:17 [code = COLONOSCOPY SCREENING] Future Scheduled Test 2022-02-04 SHINGLES VACCINES (1 [facility] 13:45:17 of 2) [code = SHINGLES VACCINES (1 of 2)] Future Scheduled Test 2022-02-04 65+ PNEUMOCOCCAL [facility] 13:45:17 VACCINE (1 - PCV) [code = 65+ PNEUMOCOCCAL VACCINE (1 - PCV)] Future Scheduled Test 2022-02-04 INFLUENZA VACCINE [facility] 13:45:17 [code = INFLUENZA VACCINE] Future Scheduled Test 2022-01-03 HEPATITIS B VACCINES [facility] 14:11:23 (1 of 3 - 3-dose series) [code = HEPATITIS B VACCINES (1 of 3 - 3-dose series)] Future Scheduled Test 2022-01-03 Hepatitis C screening [facility] 14:11:23 (procedure) [code = [id number]] Future Scheduled Test 2022-01-03 Screening for [facility] 14:11:23 malignant neoplasm of cervix (procedure) [code = 974586047] Future Scheduled Test 2022-01-03 BREAST CANCER [facility] 14:11:23 SCREENING [code = BREAST CANCER SCREENING] Future Scheduled Test 2022-01-03 COLONOSCOPY SCREENING [facility] 14:11:23 [code = COLONOSCOPY SCREENING] Future Scheduled Test 2022-01-03 SHINGLES VACCINES (1 [facility] 14:11:23 of 2) [code = SHINGLES VACCINES (1 of 2)] Future Scheduled Test 2022-01-03 65+ PNEUMOCOCCAL [facility] 14:11:23 VACCINE (1 - PCV) [code = 65+ PNEUMOCOCCAL VACCINE (1 - PCV)] Future Scheduled Test 2022-01-03 INFLUENZA VACCINE [facility] 14:11:23 [code = INFLUENZA VACCINE] Future Scheduled Test 2022-01-03 HEPATITIS B VACCINES [facility] 14:11:23 (1 of 3 - 3-dose series) [code = HEPATITIS B VACCINES (1 of 3 - 3-dose series)] Future Scheduled Test 2022-01-03 Hepatitis C screening [facility] 14:11:23 (procedure) [code = [id number]] Future Scheduled Test 2022-01-03 Screening for [facility] 14:11:23 malignant neoplasm of cervix (procedure) [code = 607676811] Future Scheduled Test 2022-01-03 BREAST CANCER [facility] 14:11:23 SCREENING [code = BREAST CANCER SCREENING] Future Scheduled Test 2022-01-03 COLONOSCOPY SCREENING [facility] 14:11:23 [code = COLONOSCOPY SCREENING] Future Scheduled Test 2022-01-03 SHINGLES VACCINES (1 [facility] 14:11:23 of 2) [code = SHINGLES VACCINES (1 of 2)] Future Scheduled Test 2022-01-03 65+ PNEUMOCOCCAL [facility] 14:11:23 VACCINE (1 - PCV) [code = 65+ PNEUMOCOCCAL VACCINE (1 - PCV)] Future Scheduled Test 2022-01-03 INFLUENZA VACCINE [facility] 14:11:23 [code = INFLUENZA VACCINE] Future Scheduled Test 2021-11-28 HEPATITIS B VACCINES [facility] 00:25:38 (1 of 3 - 3-dose series) [code = HEPATITIS B VACCINES (1 of 3 - 3-dose series)] Future Scheduled Test 2021-11-28 Hepatitis C screening [facility] 00:25:38 (procedure) [code = 233842814] Future Scheduled Test 2021-11-28 Screening for [facility] 00:25:38 malignant neoplasm of cervix (procedure) [code = 306396171] Future Scheduled Test 2021-11-28 BREAST CANCER [facility] 00:25:38 SCREENING [code = BREAST CANCER SCREENING] Future Scheduled Test 2021-11-28 COLONOSCOPY SCREENING [facility] 00:25:38 [code = COLONOSCOPY SCREENING] Future Scheduled Test 2021-11-28 SHINGLES VACCINES (1 [facility] 00:25:38 of 2) [code = SHINGLES VACCINES (1 of 2)] Future Scheduled Test 2021-11-28 65+ PNEUMOCOCCAL [facility] 00:25:38 VACCINE (1 - PCV) [code = 65+ PNEUMOCOCCAL VACCINE (1 - PCV)] Future Scheduled Test 2021-11-28 INFLUENZA VACCINE [facility] 00:25:38 [code = INFLUENZA VACCINE] Future Scheduled Test 2021-11-28 HEPATITIS B VACCINES [facility] 00:25:38 (1 of 3 - 3-dose series) [code = HEPATITIS B VACCINES (1 of 3 - 3-dose series)] Future Scheduled Test 2021-11-28 Hepatitis C screening [facility] 00:25:38 (procedure) [code = 459216172] Future Scheduled Test 2021-11-28 Screening for [facility] 00:25:38 malignant neoplasm of cervix (procedure) [code = 343592841] Future Scheduled Test 2021-11-28 BREAST CANCER [facility] 00:25:38 SCREENING [code = BREAST CANCER SCREENING] Future Scheduled Test 2021-11-28 COLONOSCOPY SCREENING [facility] 00:25:38 [code = COLONOSCOPY SCREENING] Future Scheduled Test 2021-11-28 SHINGLES VACCINES (1 [facility] 00:25:38 of 2) [code = SHINGLES VACCINES (1 of 2)] Future Scheduled Test 2021-11-28 65+ PNEUMOCOCCAL [facility] 00:25:38 VACCINE (1 - PCV) [code = 65+ PNEUMOCOCCAL VACCINE (1 - PCV)] Future Scheduled Test 2021-11-28 INFLUENZA VACCINE [facility] 00:25:38 [code = INFLUENZA VACCINE] Instructions [facility] Encounters Start End Encounter Admission Attending Care Care Encounter Source Date/Time Date/Time Type Type Clinicians Facility Department ID 2021-11-07 Outpatient [facility] [id number] [place] 01:[place]:34 [id number] [facility] 2021-10-07 Outpatient [facility] [id number] [place] 12:39:58 [id number] [facility] 2021-07-05 Outpatient [facility] [id number] [place] 01:03:47 LUCIEN [id number] [facility] 2022-04-11 2022-04-11 Outpatient CHRETIEN_F [facility] [id number] [place] 00:00:00 00:00:00 0120 [facility] 2022-03-27 2022-03-27 Outpatient CHRETIEN_F [facility] [id number] [place] 00:00:00 00:00:00 1229 [facility] 2022-03-27 2022-03-27 Emily [facility] [place] [id number] [place] 00:00:00 00:00:00 Julianne Longoria APRN, MSN, [facility]: [address], [address], [place] [address] , Ph. 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 2022-02-23 2022-02-23 Outpatient SISSON_C [facility] [id number] [place] 00:00:00 00:00:00 1127 [facility] 2022-02-06 2022-02-06 Outpatient SISSON_C [facility] [id number] [place] 00:00:00 00:00:00 1110 [facility] 2022-01-23 2022-01-23 Outpatient SISSON_C [facility] [id number] [place] 00:00:00 00:00:00 1027 [facility] 2022-01-23 2022-01-23 [facility] [place] 00:00:00 00:00:00 [facility] uni MSN, 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 2022-01-15 2022-01-15 Outpatient [facility]ISSON_[facility] [id number] [place] 00:00:00 00:00:00 1019 [facility] 2022-01-03 2022-01-03 Telephone George [id number] 21 [id number] [facility] 00:00:00 00:00:00 Emily [id number] 769 [facility] [id number] Hosp bandar .[id number] l .8 2022-01-03 2022-01-03 Telephone Nick Vazquez.2.840.1 [id number] 21 [id number] [facility] 00:00:00 00:00:00 Emily [id number] 769 [facility] [id number] Hosp bandar .[id number] l .8 2022-01-02 2022-01-02 Outpatient SISSON_C [facility] [id number] [place] 00:00:00 00:00:00 1006 [facility] Hosp[facility] 2021-12-30 2021-12-31 Inpatient CHICO Arauz, [facility]01 [id number] [facility] 12:08:00 09:39:00 Elvia 07 [facility] 2021-12-18 2021-12-18 Outpatient SISSON_C [facility] [id number] [place] 00:00:00 00:00:00 0921 Commun i ty Hospita [facility] 2021-12-18 2021-12-18 [facility] [place] 00:00:00 00:00:00 [facility] Comm uni MSN, 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, Clinic s [address], [place] MSN, WINTERIZER-C [address] , Ph. 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, Clinic s [address], [address], [place] MSN, WINTERIZER-C [address] , Ph. 2021-12-10 2021-12-10 Outpatient SISSON_C [facility] 2021 [place] 00:00:00 00:00:00 0913 Commun i ty Hospita [facility] Clinics 2021-11-11 2021-11-11 Outpatient CHRETIEN_F [facility] 1044 [place] 00:00:00 00:00:00 0815 Commun i ty Hospita [facility] Clinics 2021-11-08 2021-11-08 Outpatient CHRETIEN_F [facility] 1044 [place] 00:00:00 00:00:00 0812 Commun i ty Hospita l Clinics 2021-11-08 2021-11-08 Outpatient VonEmily [facility] [id number] 00:00:00 00:00:00 [id number] 2021-11-08 2021-11-08 Emily [facility] [place] 00:00:00 00:00:00 Julianne Longoria APRN, MSN, [facility]: [address], CLIN[address], [place] [address] , Ph. 2021-10-22 2021-10-22 Outpatient CHRETIEN_F [facility] 1044 [place] 10:01:00 10:01:00 0726 Commun i ty Hospita l Clinics 2021-10-21 2021-10-21 Outpatient [facility] [id number] [place] 10:15:00 10:15:00 MATTHEW Escamilla 2021-10-21 2021-10-21 Outpatient CHRETIEN_F [facility] 1044 [place] 06:03:00 06:03:00 0725 Commun i ty Hospita l Clinics 2021-10-21 2021-10-21 Outpatient Samantabetypatric, [facility] [id number] 00:00:00 00:00:00 Kaitlin [id number] 2021-10-21 2021-10-21 Kaitlin [facility] [place] [id number] [place] 00:00:00 00:00:00 Julianne Block Co mamadou 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 2021-10-14 2021-10-14 Outpatient GRAWN, [facility] [id number] [facility] 07:36:00 14:00:00 GIBSON 2021-10-14 2021-10-14 Outpatient GRAWN, [facility] [id number] [place] 09:00:00 09:00:00 [facility] 2021-10-11 2021-10-11 Outpatient LISTER_JEMAL [facility] 987 [place] 10:21:00 10:21:00 SSA 0715 da [facility] Outre h Program 2021-10-08 2021-10-08 Outpatient WATERS_S [facility] [id number] [place] 03:10:00 03:10:00 0712 [facility] 2021-09-23 2021-09-23 Orders Provider, 1.2.840.1 [id number] 2099 [id number] Methodi 00:00:00 00:00:00 Only [place] [address].1.[address] System 3.430.2.7 Hospit a .3.681905 l .8 2021-09-23 2021-09-23 Telephone Lord, 1.2.840.1 [id number] 2099 [id number] Methodi 00:00:00 00:00:[address] 3.430.2.7 Hospit a .3.012342 l .8 2021-09-23 2021-09-23 Orders Provider, 1.2.840.1 [id number] 2099 [id number] Methodi 00:00:00 00:00:00 Only [place] In [address]46.1.[address] System 3.430.2.7 Hospit a .3.130887 l .8 2021-09-23 2021-09-23 Telephone Lord, 1.2.840.1 [id number] 2099 [id number] Methodi 00:00:00 00:00:[address] 3.430.2.7 Hospit a .3.916014 l .8 2021-09-20 2021-09-20 Outpatient WATERS_S [facility] [id number] [place] 12:16:00 12:16:00 623 Commun i ty Hospita l Clinics 2021-09-20 2021-09-20 [facility] [place] 00:00:00 00:00:00 [facility] MSN, ROLL SCALE WORKER, Hospital - ty WINTERIZER-C: [address] [place] [facility], Clinic s [address], [facility] [address], [place], [place] MSN, WINTERIZER-C [address] , Ph. 2021-09-20 2021-09-20 [facility] [id number] 00:00:00 00:00:00 [facility] [id number] 2021-09-11 2021-09-11 Orders George, 1.2.840.1 [id number] 2099 [id number] Methodi 00:00:00 00:00:00 Only Emily [address]9721.1.[address] [facility] 3.430.2.7 Hosp bandar .3.645902 l .8 2021-09-11 2021-09-11 Orders George 1.2.840.1 [id number] 2099 [id number] Methodi 00:00:00 00:00:00 Only Emily 27922.1.[address] [place] 3.430.2.7 Hosp bandar .3.023720 l .8 2021-09-09 2021-09-09 Telephone George 1.2.840.1 [id number] Methodi 00:00:00 00:00:[address] [place] 3.430.2.7 Hosp bandar .3.755428 l .8 2021-09-09 2021-09-09 Telephone George, 1.2.840.1 [id number] 21 [id number] Methodi 00:00:00 00:00:[address] [facility] 3.430.2.7 Hosp bandar .3.515065 l .8 2021-09-03 2021-09-03 Outpatient WATERS_S [facility] 2021 [place] 01:31:00 01:31:00 0607 Commun i ty Hospita l Clinics 2021-08-21 2021-08-21 Office George, 1.2.840.1 [id number] 2100 [id number] Methodi 14:45:00 15:41:16 Visit Emily 71940.1.[address] [facility] 3.430.2.7 Hosp bandar .3.647057 l .8 2021-08-21 2021-08-21 Office George, 1.2.840.1 [id number] 2099 [id number] Methodi 14:45:00 15:41:16 Visit Emily 16259.1.[address] [facility] 3.430.2.7 Hosp bandar .3.355586 l .8 2021-08-21 2021-08-21 Travel 1.2.840.1 1.2.921.505 6443 [id number] Methodi 00:00:00 00:00:[address] 3.430.2.7 0.2.7.3.698 Ho spita .3.903506 084.8 l .8 2021-08-21 2021-08-21 Travel 1.2.840.1 1.2.496.833 2080 [id number] Methodi 00:00:00 00:00:[address] 3.430.2.7 0.2.7.3.698 Ho spita .3.413968 084.8 l .8 2021-07-31 2021-07-31 Outpatient WATERS_S [facility] [id number] [place] 04:50:00 04:50:00 0504 Commun i ty Hospita l [facility] 2021-07-31 2021-07-31 [facility] [place] 00:00:00 00:00:00 [facility] uni MSN, ROLL SCALE WORKER, Hospital - ty WINTERIZER-C: [address] [place] [facility], Clinic s [address], [address], [place], [place] MSN, WINTERIZER-C [address] , Ph. 2021-07-31 2021-07-31 [facility] [id number] 00:00:00 00:00:00 Willy [id number] 2021-07-26 2021-07-26 Outpatient WATERS_S [facility] [id number] [place] 05:01:00 05:01:00 0429 Commun i ty Hospita l [facility] 2021-07-26 2021-07-26 [facility] [place] 00:00:00 00:00:00 John, [facility] uni MSN, ROLL SCALE WORKER, Hospital - ty WINTERIZER-C: [address] [place] [facility], Clinic s [address], [facility] [address], [place], [place] MSN, WINTERIZER-C [address] , Ph. 2021-07-26 2021-07-26 Outpatient John [facility] [id number] 00:00:00 00:00:00 Willy [id number] 2021-07-23 2021-07-23 Outpatient WATERS_S [facility] [id number] [place] 03:28:00 03:28:00 0426 Commun i ty Hospita l Clinics 2021-07-23 2021-07-23 Kaitlin [facility] [place] 00:00:00 00:00:00 [facility] mmuni ROLL SCALE WORKER-WINTERIZER-B Hospital - ty C: [address] [facility], [facility] [address], [place] [address] , Ph. 2021-07-23 2021-07-23 Outpatient Umair [facility] [id number] 00:00:00 00:00:00 Kaitlin [id number] 2021-07-13 2021-07-13 Outpatient WATERS_S [facility] [id number] [place] 01:29:00 01:29:00 0416 Commun i ty Hospita l [facility] 2021-06-24 2021-06-24 Outpatient WATERS_S [facility] [id number] [place] 06:06:00 06:06:00 0328 Commun i ty Hospita [facility] 2021-06-24 2021-06-24 [facility] [place] 00:00:00 00:00:00 [facility] Comm uni ROLL SCALE WORKER-MATTRESS FILLER-C: Hospital - ty [address] [facility] [address], [place] [address] , Ph. 2021-06-24 2021-06-24 Outpatient [facility] [id number] 00:00:00 00:00:00 Roula [id number] 2021-05-30 2021-05-30 Outpatient WATERS_S [facility] [id number] 2021 [place] 04:28:00 04:28:00 0303 Commun i ty Hospita [facility] 2021-05-30 2021-05-30 [facility] [place] 00:00:00 00:00:00 [facility] uni ROLL SCALE WORKER-MATTRESS FILLER-C: Hospital - ty [address] [facility] [address], [place] [address] , Ph. 2021-05-302021-05-30 Outpatient Francisco [facility] [id number] 00:00:00 00:00:00 Roula [id number] 2021-04-26 2021-04-26 Outpatient WATERS_S [facility] [id number] [place] 04:02:00 04:02:00 0128 Commun i ty Hospita l Clinics 2021-04-10 2021-04-10 Outpatient WATERS_S [facility] [id number] [place] 10:19:00 10:19:00 0112 Commun i ty Hospita l Clinics 2021-04-09 2021-04-09 Outpatient WATERS_S [facility] [id number] [place] 02:44:00 02:44:00 0111 Commun i ty Hospita l Clinics 2021-04-09 2021-04-09 [facility] [place] 00:00:00 00:00:00 [facility] Comm uni ROLL SCALE WORKER-MATTRESS FILLER-C: Hospital [address] [address], [place] [address] , Ph. 2021-04-09 2021-04-09 Outpatient Francisco [facility] [id number] 00:00:00 00:00:00 Roula [id number] 2021-04-05 2021-04-05 Outpatient [facility] [id number] [facility] 10:06:00 23:59:00 LUCIEN 2021-03-14 2021-03-14 Outpatient WATERS_S [facility] [id number] [place] 11:37:00 11:37:00 1216 Commun i ty Hospita [facility] 2021-03-14 2021-03-14 [facility] [place] [id number] [place] 00:00:00 00:00:00 [facility] Comm uni ROLL SCALE WORKER-MATTRESS FILLER-C: [address], [place] [address] , Ph. 2021-03-14 2021-03-14 Outpatient Finn, [facility] [id number] 00:00:00 00:00:00 [place] [id number] 2021-03-04 2021-03-04 Outpatient WATERS_S [facility] [id number] [place] 02:40:00 02:40:00 1206 Commun i ty Hospita [facility] 2021-03-04 2021-03-04 Roula [facility] [place] [id number] [place] 00:00:00 00:00:00 [facility] [address] [address], [place] [address] , Ph. 2021-03-04 2021-03-04 Outpatient Finn, [facility] [id number] 00:00:00 00:00:00 Roula [id number] 2021-03-04 2021-03-04 Outpatient Finn, [facility] [id number] 00:00:00 00:00:00 Roula [id number] 2021-02-25 2021-02-25 Roula [facility] [place] [id number] [place] 00:00:00 00:00:00 [facility] ROLL SCALE WORKER-MATTRESS FILLER-C: [address], [place] [address] , Ph. 2021-02-25 2021-02-25 Outpatient Finn, [facility] [id number] 00:00:00 00:00:00 [place]oula [id number] 2021-01-14 2021-01-14 Outpatient WATERS_S [facility] [id number] [place] 05:43:00 05:43:00 1018 Commun i ty Hospita l Clinics 2021-01-14 2021-01-14 Outpatient Finn, [facility] [id number] 00:00:00 00:00:00 [place]oula [id number] 2021-01-14 2021-01-14 Outpatient Finn, [facility] [id number] 00:00:00 00:00:00 Roula [id number] 2021-01-14 2021-01-14 Roula [facility] [place] [id number] [place] 00:00:00 00:00:00 [facility] ROLL SCALE WORKER-MATTRESS FILLER-C: [address] [address], [place] [address] , Ph. 2020-10-16 2020-10-16 Outpatient WATERS_S [facility] [id number] [place] 02:24:00 02:24:00 0720 [facility] 2020-10-16 2020-10-16 Outpatient [facility], [facility] [id number] 00:00:00 00:00:00 [place]oula [id number] 2020-10-16 2020-10-16 [facility] [place] [id number] [place] 00:00:00 00:00:00 [facility] ROLL SCALE WORKER-MATTRESS FILLER-C: [address], [place] [address] , Ph. 2020-09-28 2020-09-28 Outpatient WATERS_S [facility] [id number] [place] 12:14:00 12:14:00 0702 [facility] Hospita [facility] 2020-09-28 2020-09-28 Outpatient Finn, [facility] [id number] 00:00:00 00:00:00 [place] [id number] 2020-09-28 2020-09-28 Roula [facility] [place] 00:00:00 00:00:00 [facility]: Hospital [address] [address], [place] [address] , Ph. 2020-09-28 2020-09-28 Outpatient Finn, [facility] [id number] 00:00:00 00:00:00 [place]oula [id number] 2020-08-30 2020-08-30 Outpatient WATERS_S [facility] [id number] [place] 05:28:00 05:28:00 0603 Commun i ty Hospita l [facility] 2020-08-26 2020-08-26 Outpatient WATERS_S [facility] [id number] [place] 01:01:00 01:01:00 0530 Commun i ty Hospita l Clinics 2020-08-20 2020-08-20 Outpatient WATERS_S [facility] [id number] [place] 05:07:00 05:07:00 0524 Commun i ty Hospita [facility] 2020-08-20 2020-08-20 [facility] [place] 00:00:00 00:00:00 [facility] ROLL SCALE WORKER-MATTRESS FILLER-C: Hospital - ty [address] [place], [place] [address], [place] [address] , Ph. 2020-08-20 2020-08-20 Outpatient Finn, [facility] [id number] 00:00:00 00:00:00 [place]oula [id number] 2020-08-16 2020-08-16 Outpatient [facility], [facility] [id number] [place] 00:00:00 00:00:[address] 2020-08-13 2020-08-13 Outpatient WATERS_S [facility] [id number] [place] 04:15:00 04:15:00 0517 Commun i ty Hospita Clinics 2020-08-13 2020-08-13 Roula [facility] [place] [id number] [place] 00:00:00 00:00:00 [facility] ROLL SCALE WORKER-MATTRESS FILLER-C: Hospital - ty [address] [place] [address] [address], [place] [address] , Ph. 2020-08-13 2020-08-13 Outpatient [facility] [id number] 00:00:00 00:00:00 Roula [id number] 2020-07-26 2020-07-[address] [facility] [id number] [place] 05:04:00 05:04:00 0429 Commun i ty Hospita [facility] 2020-07-26 2020-07-26 [facility] [place] 00:00:00 00:00:00 [facility] ROLL SCALE WORKER-MATTRESS FILLER-C: Hospital - [address], [place] [address] , Ph. 2020-07-26 2020-07-26 Outpatient [facility] [id number] 00:00:00 00:00:00 Roula [id number] 2020-07-24 2020-07-24 Outpatient SUSTACHE, [facility] [id number] [place] 00:00:00 00:00:00 SHIELA [address] 2020-07-23 2020-07-23 Emergency E ANNABELLE, FB [facility] 7571 [facility] 16:54:00 18:17:00 NICHELLE 2020-03-09 2020-03-09 Outpatient SHIVA [id number] 11:08:00 23:59:00 LUCIEN 2018-07-28 2018-07-28 Outpatient [id number] [facility] 01:39:00 01:39:00 Results Test Description Test Time Test Comments Results Result Comments Source SARS-CoV-2 (COVID-19) Ag [Presence] in Respiratory spe cimen by 2022-03-27 09:52:00 Rapid immunoassay Test Item Value Reference Range Interpretation Comme nts SARS CoV 2 (test code = SARS CoV 2) negative [facility] panel - Urine 2022-03-27 09:31:00 Test Item Value Reference Range Interpretation Comments Nitrite (test code = negative Nitrite) Urobilinogen (test code = .2 Urobilinogen) Protein (test code = Negative Protein) pH (test code = pH) 5.0 Blood (test code = Blood) Non-Hemolyzed: Moderate Specific Fowler (test 1.015 code = Specific Fowler) Ketone (test code = Negative Ketone) Bilirubin (test code = Negative Bilirubin) Glucose (test code = Negative Glucose) Appearance (test code = Clear Appearance) Color (test code = Color) Pale Yellow Leukocytes (test code = Negative Leukocytes) [facility] (A+B)2022-03-27 09:29:00 Test Item Value Reference Range Interpretation Comments FLU A (test code = FLU A) negative FLU B (test code = FLU B) negative [facility] [id number] 13:24:00 Test Item Value Reference Range Interpretation Comments COVID 19 INHOUSE AG NEGATIVE Negative Per manu facturer, (test code = negative result s should [id number]) be treated aspr esumptive and, if inconsi stent with clinical signs andsymptoms or necessary for patient man agement, should betested with an alternative mol ecular assay. Negative resultsdo not preclude SA RS-CoV-2 infection and s hould not be usedas the s ole basis for patient man agement decisions. Nega tive results should be considered in t he context of apatient's r ecent exposures, hist ory, presence of cli nicalsigns and symptoms co nsistent with COVID-19. PROTHROMBIN [id number] 12:35:00 Test Item Value Reference Range Interpretation [...] (to prevent recurrent infar ct). THROMBOPLASTIN TIME [id number] 12:35:00 Test Item Value Reference Range Interpretation Comments THROMBOPLASTIN TIME PARTIAL 32.1 SECONDS 26-35 N (test code = PTT) BASIC METABOLIC [id number] 11:27:00 Test Item Value Reference Range Interpretation [...] CA) 9.4 MG/DL 8.5-10.1 N CBC W/AUTO [id number] 11:16:00 Test Item Value Reference Range Interpretation [...] code NO DIFF/SCN CRITERIA = MDIFF) URINALYSIS [id number] 10:02:00 Test Item Value Reference Range Interpretation [...] Specimen Type: Clean Catch- XR CHEST 1 [id number] 09:57:00 [facility] : 1955 Sex: F Name: BOZENA MARSH [facility] : 1955 Age/S: 66 / F [id number] Unit #: [id number] Loc: [place] [address] Phys: Gama Gabriel MD Acct: [id number] Dis Date: Status: PRE [facility] PHONE #: [phone] Exam Date: 12/27/2021956 FAX #: Reason: PREOP EXAMS: CPT: [id number] XR CHEST 1 V 79689 Fluoro Time: DAP (Gy m2): Air Kerma [...] PAGE 1 Signed Report Name: BOZENA MARSH [place] : 1955 Age/S: 66 / F [address] Unit #: [id number] Loc: [place] [address] Phys: Gama Gabriel MD Acct: [id number] Dis Date: Status: PRE [facility] PHONE #: [phone] Exam Date: 12/27/2021956 FAX #: Reason: PREOP EXAMS: CPT: [id number] XR CHEST 1 V 25277 Fluoro Time: DAP (Gy m2): Air Kerma (mGy): (Continued) Technologist: RT Annalise(R) Trnscb Date/Time: 12/27/2021 (0957) tMIRIAM Orig Print D/T: S: 12/27/2021 (1001) PAGE 2 Signed Report Urinalysis macro (dipstick) panel - [id number] 15:03:00 Test Item Value Reference Range Interpretation Comments Leukocytes (test code = Leukocytes) Small Nitrite (test code = Nitrite) negative Urobilinogen (test code = .2 Urobilinogen) Protein (test code = Protein) Trace pH (test code = pH) 7.0 Blood (test code = Blood) Moderate Specific Fowler (test code = 1.015 Specific Fowler) Ketone (test code = Ketone) Trace Bilirubin (test code = Bilirubin) Negative Glucose (test code = Glucose) Negative Appearance (test code = Appearance) Turbid Color (test code = Color) Yellow [facility] macro (dipstick) panel - Urine 2021-10-21 15:03:00 Test Item Value Reference Range Interpretation Comments Leukocytes (test code = Leukocytes) Small Nitrite (test code = Nitrite) negative Urobilinogen (test code = .2 Urobilinogen) Protein (test code = Protein) Trace pH (test code = pH) 7.0 Blood (test code = Blood) Moderate Specific Fowler (test code = 1.015 Specific Fowler) Ketone (test code = Ketone) Trace Bilirubin (test code = Bilirubin) Negative Glucose (test code = Glucose) Negative Appearance (test code = Appearance) Turbid Color (test code = Color) Yellow [facility] strep group A, [id number] 14:56:00 Test Item Value Reference Range Interpretation Comments Strep (test code = Strep) negative [facility] strep group A, [id number] 14:56:00 Test Item Value Reference Range Interpretation Comments Strep (test code = Strep) negative [facility]-CoV-2 (COVID-19) Ag [Presence] in Respiratory specimen by Rapid [id number] 14:55:00 Test Item Value Reference Range Interpretation Comments SARS CoV 2 (test code = SARS CoV 2) negative [facility]-CoV-2 (COVID-19) Ag [Presence] in Respiratory specimen by Rapid [id number] 14:55:00 Test Item Value Reference Range Interpretation Comments SARS CoV 2 (test code = SARS CoV 2) negative [facility] urinal[facility] [id number] 19:36:00 Test Item Value Reference Range Interpretation Comments Color urine, POC (test Yellow code = 0942081) Clarity urine, POC (test Clear code = 2621971) Glucose urine, POC (test Negative Negative code = 1402834) Bilirubin urine, POC Negative Negative (test code = 5767992) Ketones urine, POC (test Negative Negative code = 8501341) Specific gravity urine, 1.010 1.005-1.030 POC (test code = 8509555) Blood urine, POC (test Trace Negative A code = 4786156) pH urine, POC (test code 6.0 See_Comment [A utomated message] = 2423394) The system [employer] generated this result transmitted ref erence range: 5.0, 5.5 , 6.0, 6.5, 7.0, 7.5, 8.0, 8.5. The refere nce range was not u sed to interpret this result as normal/abnor mal. Protein urine, POC (test Negative Negative code = 8421203) Urobilinogen urine, POC <2.0 <=2.0 (test code = 3321372) Nitrite urine, POC (test Negative Negative code = 2206936) Leukocyte esterase Negative Negative urine, POC (test code = 5290433) Lab Interpretation (test Abnormal code = 70007-1) [facility] BLADDER [id number] 19:36:00 Test Item Value Reference Range Interpretation Comments Volume (test code = 6220093) 28 [facility] urinalysis [id number] 19:36:00 Test Item Value Reference Range Interpretation Comments Color urine, POC (test Yellow code = 3466859) Clarity urine, POC (test Clear code = 4375415) Glucose urine, POC (test Negative Negative code = 9546365) Bilirubin urine, POC Negative Negative (test code = 8082474) Ketones urine, POC (test Negative Negative code = 2538952) Specific gravity urine, 1.005-1.030 POC (test code = 2303303) Blood urine, POC (test Trace Negative A code = 4674361) pH urine, POC (test code See_Comment [A utomated message] = 9144160) The system [employer] generated this result transmitted ref erence range: 5.0, 5.5 , 6.0, 6.5, 7.0, 7.5, 8.0, 8.5. The refere nce range was not u sed to interpret this result as normal/abnor mal. Protein urine, POC (test Negative Negative code = 6940474) Urobilinogen urine, POC <2.0 See_Comment [Au tomated message] (test code = 9802753) The [employer] stem which generated this result transmitted ref erence range: <=2.0. T he reference range was not used to int erpret this result as normal/abnormal . Nitrite urine, POC (test Negative Negative code = 1841283) Leukocyte esterase Negative Negative urine, POC (test code = 6161231) Lab Interpretation (test Abnormal code = 62661-2) [facility] BLADDER SCAN/[id number] 19:36:00 Test Item Value Reference Range Interpretation Comments Volume (test code = 5120926) [facility] urinalysis [id number] 19:36:00 Test Item Value Reference Range Interpretation Comments Color urine, POC (test Yellow code = 5193142) Clarity urine, POC (test Clear code = 5714384) Glucose urine, POC (test Negative Negative code = 3058492) Bilirubin urine, POC Negative Negative (test code = 6363899) Ketones urine, POC (test Negative Negative code = 7913624) Specific gravity urine, 1.005-1.030 POC (test code = 1272064) Blood urine, POC (test Trace Negative A code = 9475188) pH urine, POC (test code See_Comment [A utomated message] = 5836861) The system [employer] h generated this result transmitted ref erence range: 5.0, 5.5 , 6.0, 6.5, 7.0, 7.5, 8.0, 8.5. The refere nce range was not u sed to interpret this result as normal/abnor mal. Protein urine, POC (test Negative Negative code = 9216621) Urobilinogen urine, POC <2.0 See_Comment [Au tomated message] (test code = 2858948) The sy stem which generated this result transmitted ref erence range: <=2.0. T he reference range was not used to int erpret this result as normal/abnormal . Nitrite urine, POC (test Negative Negative code = 5887543) Leukocyte esterase Negative Negative urine, POC (test code = 5282967) Lab Interpretation (test Abnormal code = 03641-4) [facility] BLADDER SCAN/[id number] 19:36:00 Test Item Value Reference Range Interpretation Comments Volume (test code = 4155014) [facility] urinalysis [id number] 19:36:00 Test Item Value Reference Range Interpretation Comments Color urine, POC (test Yellow code = 3773045) Clarity urine, POC (test Clear code = 0018124) Glucose urine, POC (test Negative Negative code = 5530697) Bilirubin urine, POC Negative Negative (test code = 4360199) Ketones urine, POC (test Negative Negative code = 7918026) Specific gravity urine, 1.005-1.030 POC (test code = 5021572) Blood urine, POC (test Trace Negative A code = 5705839) pH urine, POC (test code See_Comment [A utomated message] = 8562493) The system [employer] h generated this result transmitted ref erence range: 5.0, 5.5 , 6.0, 6.5, 7.0, 7.5, 8.0, 8.5. The refere nce range was not u sed to interpret this result as normal/abnor mal. Protein urine, POC (test Negative Negative code = 6291962) Urobilinogen urine, POC <2.0 See_Comment [Au tomated message] (test code = 7479765) The sy stem which generated this result transmitted ref erence range: <=2.0. T he reference range was not used to int erpret this result as normal/abnormal . Nitrite urine, POC (test Negative Negative code = 0334615) Leukocyte esterase Negative Negative urine, POC (test code = 3337001) Lab Interpretation (test Abnormal code = 32832-7) [facility] BLADDER SCAN/[id number] 19:36:00 Test Item Value Reference Range Interpretation Comments Volume (test code = 1665994) [facility] urinalysis [id number] 19:36:00 Test Item Value Reference Range Interpretation Comments Color urine, POC (test Yellow code = 1325504) Clarity urine, POC (test Clear code = 7374447) Glucose urine, POC (test Negative Negative code = 6585616) Bilirubin urine, POC Negative Negative (test code = 0889794) Ketones urine, POC (test Negative Negative code = 6297532) Specific gravity urine, 1.005-1.030 POC (test code = 0521423) Blood urine, POC (test Trace Negative A code = 0488801) pH urine, POC (test code See_Comment [A utomated message] = 6729706) The system [employer] generated this result transmitted ref erence range: 5.0, 5.5 , 6.0, 6.5, 7.0, 7.5, 8.0, 8.5. The refere nce range was not u sed to interpret this result as normal/abnor mal. Protein urine, POC (test Negative Negative code = 6214090) Urobilinogen urine, POC <2.0 See_Comment [Au tomated message] (test code = 5947415) The sy stem which generated this result transmitted ref erence range: <=2.0. T he reference range was not used to int erpret this result as normal/abnormal . Nitrite urine, POC (test Negative Negative code = 2701075) Leukocyte esterase Negative Negative urine, POC (test code = 4635320) Lab Interpretation (test Abnormal code = 83637-2) [facility] BLADDER SCAN/[id number] 19:36:00 Test Item Value Reference Range Interpretation Comments Volume (test code = 2200201) [facility] urinalysis [id number] 19:36:00 Test Item Value Reference Range Interpretation Comments Color urine, POC (test Yellow code = 5513879) Clarity urine, POC (test Clear code = 0493611) Glucose urine, POC (test Negative Negative code = 8651218) Bilirubin urine, POC Negative Negative (test code = 3121039) Ketones urine, POC (test Negative Negative code = 8348030) Specific gravity urine, 1.005-1.030 POC (test code = 7237050) Blood urine, POC (test Trace Negative A code = 6562109) pH urine, POC (test code See_Comment [A utomated message] = 8056120) The system [employer] generated this result transmitted ref erence range: 5.0, 5.5 , 6.0, 6.5, 7.0, 7.5, 8.0, 8.5. The refere nce range was not u sed to interpret this result as normal/abnor mal. Protein urine, POC (test Negative Negative code = 9825518) Urobilinogen urine, POC <2.0 See_Comment [Au tomated message] (test code = 4971691) The sy stem which generated this result transmitted ref erence range: <=2.0. T he reference range was not used to int erpret this result as normal/abnormal . Nitrite urine, POC (test Negative Negative code = 1740985) Leukocyte esterase Negative Negative urine, POC (test code = 5985058) Lab Interpretation (test Abnormal code = 36050-0) [facility] BLADDER SCAN/[id number] 19:36:00 Test Item Value Reference Range Interpretation Comments Volume (test code = 3145924) [facility] urinalysis [id number] 19:36:00 Test Item Value Reference Range Interpretation Comments Color urine, POC (test Yellow code = 6644180) Clarity urine, POC (test Clear code = 0080785) Glucose urine, POC (test Negative Negative code = 6309341) Bilirubin urine, POC Negative Negative (test code = 5716030) Ketones urine, POC (test Negative Negative code = 7761417) Specific gravity urine, 1.005-1.030 POC (test code = 8616103) Blood urine, POC (test Trace Negative A code = 5037805) pH urine, POC (test code See_Comment [A utomated message] = 9754922) The system [employer] generated this result transmitted ref erence range: 5.0, 5.5 , 6.0, 6.5, 7.0, 7.5, 8.0, 8.5. The refere nce range was not u sed to interpret this result as normal/abnor mal. Protein urine, POC (test Negative Negative code = 2739392) Urobilinogen urine, POC <2.0 See_Comment [Au tomated message] (test code = 6640558) The sy stem which generated this result transmitted ref erence range: <=2.0. T he reference range was not used to int erpret this result as normal/abnormal . Nitrite urine, POC (test Negative Negative code = 1945756) Leukocyte esterase Negative Negative urine, POC (test code = 4406719) Lab Interpretation (test Abnormal code = 78284-9) [facility] BLADDER SCAN/[id number] 19:36:00 Test Item Value Reference Range Interpretation Comments Volume (test code = 9732672) [facility] by [id number] 00:00:00 Test Item Value Reference Range Interpretation Comments Bacteria identified in Urine by no growth Culture (test code = 630-4) [facility] 2021-07-24 00:00:00 Test Item Value Reference Range Interpretation Comments Bacteria identified in Urine by no growth Culture (test code = 630-4) [facility]written [id number] 00:00:00 Test Item Value Reference Range Interpretation Comments written authorization (test code = comment written authorization) [facility] by Culture 2021-06-29 00:00:00 Test Item Value Reference Range Interpretation Comments Bacteria identified in Urine by no growth Culture (test code = 630-4) [facility] Culture 2021-06-29 00:00:00 Test Item Value Reference Range Interpretation Comments Bacteria identified in Urine by no growth Culture (test code = 630-4) [facility] U[facility] Culture 2021-06-29 00:00:00 Test Item Value Reference Range Interpretation Comments Bacteria identified in Urine by no growth Culture (test code = 630-4) [facility] U[facility] by Culture 2021-06-29 00:00:00 Test Item Value Reference Range Interpretation Comments Bacteria identified in Urine by no growth Culture (test code = 630-4) [facility] macro (dipstick) panel - Urine 2021-06-27 16:17:00 Test Item Value Reference Range Interpretation Comments Leukocytes (test code = Small Leukocytes) Nitrite (test code = negative Nitrite) Urobilinogen (test code = .2 Urobilinogen) Protein (test code = Negative Protein) pH (test code = pH) 7.5 Blood (test code = Blood) Non-Hemolyzed: Trace Specific Fowler (test 1.000 code = Specific Fowler) Ketone (test code = Negative Ketone) Bilirubin (test code = Negative Bilirubin) Glucose (test code = Negative Glucose) Appearance (test code = Clear Appearance) Color (test code = Color) Pale Yellow [facility] macro (dipstick) panel - Urine 2021-06-27 16:17:00 Test Item Value Reference Range Interpretation Comments Leukocytes (test code = Small Leukocytes) Nitrite (test code = negative Nitrite) Urobilinogen (test code = .2 Urobilinogen) Protein (test code = Negative Protein) pH (test code = pH) 7.5 Blood (test code = Blood) Non-Hemolyzed: Trace Specific Fowler (test 1.000 code = Specific Fowler) Ketone (test code = Negative Ketone) Bilirubin (test code = Negative Bilirubin) Glucose (test code = Negative Glucose) Appearance (test code = Clear Appearance) Color (test code = Color) Pale Yellow [facility] W Auto Differential panel - [id number] 00:00:00 Test Item Value Reference Range Interpretation [...] = 706-2) immature cells (test code = casino duty manager immature cells) Neutrophils [#/volume] in Blood 3.7 [...] Blood by Automated count (test code = 02592-0) Immature granulocytes 0.0 x10e3/uL 0.0-0.1 [#/volume] in Blood by Automated count (test code = 97325-9) Nucleated erythrocytes/100 casino duty manager leukocytes [Ratio] in Blood by Automated count (test code = 78916-7) Morphology [Interpretation] in casino duty manager Blood Narrative (test code = 78157-4) [facility] HospitalCom[facility] 2000 panel - Serum or [id number] 00:00:00 Test Item Value Reference Range Interpretation [...] mg/dL 8.7-10.3 or Plasma (test code = 39109-4) Protein [Mass/volume] in Serum 6.5 g/dL 6.0-8.5 or Plasma (test code = 2885-2) Albumin [Mass/volume] in Serum 4.4 g/dL 3.8-4.8 or Plasma (test code = 1751-7) Globulin [Mass/volume] in 2.1 g/dL 1.5-4.5 Serum by calculation (test code = 72560-0) Albumin/Globulin [Mass Ratio] 2.1 1.2-2.2 in Serum [...] Serum or Plasma (test code = 1742-6) [facility]icsThyrotropin [Units/volume] in Serum or Plasma by Detection limit <= 0.005 mIU/[id number] 00:00:00 Test Item Value Reference Range Interpretation Comments Thyrotropin [Units/volume] in 2.820 uIU/mL 0.450-4.500 Serum or Plasma by Detection limit <= 0.005 mIU/L (test code = 09107-7) [facility] HospitalThyroxine (T4) free [Mass/volume] in Serum or [id number] 00:00:00 Test Item Value Reference Range Interpretation Comments Thyroxine (T4) free [Mass/volume] 1.04 NG/dL 0.82-1.77 in Serum or Plasma (test code = 3024-7) [facility] Hospitalno test [id number] 00:00:00 Test Item Value Reference Range Interpretation Comments dear doctor, (test code = dear comment doctor,) [facility] HospitalLipid 1996 panel - Serum or [id number] 00:00:00 Test Item Value Reference Range Interpretation [...] or Plasma by calculation (test code = 87838-5) Cholesterol in LDL [Mass/volume] in 156 mg/dL 0-99 H Serum or Plasma by calculation (test code = 30148-6) Laboratory comment [Text] in Report casino duty manager Narrative (test code = 79582-4) Cholesterol in LDL/Cholesterol in 3.0 ratio 0.0-3.2 HDL [Mass Ratio] in Serum or Plasma (test code = 15649-4) [facility] HospitalHelicobacter pylori IgA and IgG and IgM [Interpretation] in Serum or [id number] 00:00:00 Test Item Value Reference Range Interpretation Comments Helicobacter pylori IgG Ab 0.45 index value 0.00-0.79 [Units/volume] in Serum by Immunoassay (test code = 5176-3) Helicobacter pylori IgA Ab <9.0 0.0-8.9 [Units/volume] in Serum (test code = 7901-2) Helicobacter pylori IgM Ab <9.0 0.0-8.9 [Units/volume] in Serum (test code = 7903-8) [facility] HospitalFolate+Cyanocobalamin [Interpretation] in Serum or [id number] 00:00:00 Test Item Value Reference Range Interpretation Comments Cobalamin (Vitamin B12) 920 pg/mL 232-1245 [Mass/volume] in Serum or Plasma (test code = 2132-9) Folate [Mass/volume] in Serum or >20.0 >3.0 Plasma (test code = 2284-8) [facility]-Hydroxyvitamin D3+25-Hydroxyvitamin D2 [Mass/volume] in Serum or [id number] 00:00:00 Test Item Value Reference Range Interpretation Comments 25-Hydroxyvitamin 36.5 NG/mL 30.0-100.0 D3+25-Hydroxyvitamin D2 [Mass/volume] in Serum or Plasma (test code = 19041-3) [facility] HospitalFerritin [Mass/volume] in Serum or Plasma 2021-06-25 00:00:00 Test Item Value Reference Range Interpretation Comments Ferritin [Mass/volume] in Serum or 96 NG/mL 15-150 Plasma (test code = 2276-4) [facility] HospitalUrinalysis macro (dipstick) panel - Urine 2021-04-09 13:17:00 Test Item Value Reference Range Interpretation Comments Leukocytes (test code = Small Leukocytes) Nitrite (test code = negative Nitrite) Urobilinogen (test code = .2 Urobilinogen) Protein (test code = Negative Protein) pH (test code = pH) 5.0 Blood (test code = Blood) Hemolyzed: Trace Specific Fowler (test code 1.015 = Specific Fowler) Ketone (test code = Ketone) Negative Bilirubin (test code = Negative Bilirubin) Glucose (test code = Negative Glucose) [facility]-CoV-2 (COVID-19) Ag [Presence] in Respiratory specimen by Rapid [id number] 16:26:00 Test Item Value Reference Range Interpretation Comments SARS CoV 2 (test code = SARS CoV 2) negative [facility]-CoV-2 (COVID-19) Ag [Presence] in Respiratory specimen by Rapid [id number] 16:26:00 Test Item Value Reference Range Interpretation Comments SARS CoV 2 (test code = SARS CoV 2) negative [facility]-CoV-2 (COVID-19) Ag [Presence] in Respiratory specimen by Rapid [id number] 16:26:00 Test Item Value Reference Range Interpretation Comments SARS CoV 2 (test code = SARS CoV 2) negative [facility] (COVID-19) Ag [Presence] in Respiratory specimen by Rapid qhciijmgiwi8724-11-91 16:26:00 Test Item Value Reference Range Interpretation Comments SARS CoV 2 (test code = SARS CoV 2) [facility]2021-02-25 16:10:00 Test Item Value Reference Range Interpretation Comments FLU A (test code = FLU A) negative FLU B (test code = FLU B) [facility] 16:10:00 Test Item Value Reference Range Interpretation Comments FLU A (test code = FLU A) negative FLU B (test code = FLU B) [facility]2021-02-25 16:10:00 Test Item Value Reference Range Interpretation Comments FLU A (test code = FLU A) negative FLU B (test code = FLU B) negative [facility]A+B)2021-02-25 16:10:00 Test Item Value Reference Range Interpretation Comments FLU A (test code = FLU A) negative FLU B (test code = FLU B) [facility], [id number] 16:09:00 Test Item Value Reference Range Interpretation Comments Strep (test code = Strep) [facility], [id number] 16:09:00 Test Item Value Reference Range Interpretation Comments Strep (test code = Strep) positive [facility] A, [id number] 16:09:00 Test Item Value Reference Range Interpretation Comments Strep (test code = Strep) [facility], [id number] 16:09:00 Test Item Value Reference Range Interpretation Comments Strep (test code = Strep) positive [facility] ClinicsHeterophile Ab [Presence] in Blood by Ewjoodlcpnh6238-46-58 15:33:00 Test Item Value Reference Range Interpretation Comments Morrill (test code = Morrill) negative [facility] HospitalHeterophile Ab [Presence] in Blood by Dvtsedeowrs9611-50-73 15:33:00 Test Item Value Reference Range Interpretation Comments Morrill (test code = Morrill) negative [facility] HospitalIron and Iron binding capacity panel - Serum or [id number] 00:00:00 Test Item Value Reference Range Interpretation [...] Serum or Plasma (test code = 2502-3) [facility] HospitalFolate+Cyanocobalamin [Interpretation] in Serum or [id number] 00:00:00 Test Item Value Reference Range Interpretation Comments Cobalamin (Vitamin B12) 971 pg/mL 232-1245 [Mass/volume] in Serum or Plasma (test code = 2132-9) Folate [Mass/volume] in Serum or >20.0 >3.0 Plasma (test code = 2284-8) [facility] HospitalPhosphate [Mass/volume] in Serum or Plasma 2020-07-27 00:00:00 Test Item Value Reference Range Interpretation Comments Phosphate [Mass/volume] in Serum or 3.0 mg/dL 3.0-4.3 Plasma (test code = 2777-1) [facility] HospitalErythrocyte sedimentation rate by Westergren [id number] 00:00:00 Test Item Value Reference Range Interpretation Comments Erythrocyte sedimentation rate by 4 mm/HR 0-40 Westergren method (test code = 4537-7) [facility] HospitalMagnesium [Mass/volume] in Serum or Plasma 2020-07-27 00:00:00 Test Item Value Reference Range Interpretation Comments Magnesium [Mass/volume] in Serum or 2.2 mg/dL 1.6-2.3 Plasma (test code = 66489-7) [facility] HospitalIron and Iron binding capacity panel - Serum or [id number] 00:00:00 Test Item Value Reference Range Interpretation [...] Serum or Plasma (test code = 2502-3) [facility] HospitalFolate+Cyanocobalamin [Interpretation] in Serum or [id number] 00:00:00 Test Item Value Reference Range Interpretation Comments Cobalamin (Vitamin B12) 971 pg/mL 232-1245 [Mass/volume] in Serum or Plasma (test code = 2132-9) Folate [Mass/volume] in Serum or >20.0 >3.0 Plasma (test code = 2284-8) [facility] HospitalPhosphate [Mass/volume] in Serum or Plasma 2020-07-27 00:00:00 Test Item Value Reference Range Interpretation Comments Phosphate [Mass/volume] in Serum or 3.0 mg/dL 3.0-4.3 Plasma (test code = 2777-1) [facility] HospitalErythrocyte sedimentation rate by Westergren [id number] 00:00:00 Test Item Value Reference Range Interpretation Comments Erythrocyte sedimentation rate by 4 mm/HR 0-40 Westergren method (test code = 4537-7) [facility] HospitalMagnesium [Mass/volume] in Serum or Plasma 2020-07-27 00:00:00 Test Item Value Reference Range Interpretation Comments Magnesium [Mass/volume] in Serum or 2.2 mg/dL 1.6-2.3 Plasma (test code = 55784-0) [facility] HospitalSURG2018-10-05 11:22:00 RUN DATE: 01/01/18 [facility] - LAB *LIVE* PAGE 1 RUN TIME: 1122 Specimen Inquiry RUN USER: INTERFACE PATIENT: BOZENA MARSH LOC: EVA U #: [id number] AGE/SX: 62/F ROOM: RE12/31/17REG DR: Raz Gaspar III : 57 BED: DIS: STATUS: DEP SD TLOC: SPEC #: [id number] RECD: 12/31/17 STATUS: HENRY DELGADO #: [id number] SHYANN: 12/31/[address] [facility] DR: Raz Gaspar III, MD ENTERED: 12/31/17 SP TYPE: SURG OTHR DR: No Primary or Family PhysicianORDERED: SURG PATH LVL 1, SURGPATH LVL 4 COPIES TO: No Primary [place] [address] [facility] [address] [place] [address] HISTOLOGY: TISSUE ID BLK PCS ANAIS LEV PROCEDURE DISPOSITION ____ ___ ___ ___ NASAL TURBINATE A 1 1 NASAL SEPTUM, N B 1 1 PROCEDURES: SURG PATH LVL 1 (01/01/18-1103) SURG PATH LVL 4 (01/01/18) TISSUES: A. NASAL TURBINATE, NOS - BILATERAL INFERIOR TURBINATES B. NASAL SEPTUM, NOS - SEPTUM CPT CODES CPT CODE(S): 19643 , 95258 , , , , , FINAL DIAGNOSIS A. Inferior turbinate, bilateral, endoscopic sinus surgery: SINUS CONTENTS CONSISTENT WITH CHRONIC SINUSITIS B. Nasal septum, septoplasty: BONE AND CARTILAGE (GROSS ONLY) GROSS DESCRIPTION A. Bilateral inferior turbinates. Received in formalin are irregular fragments of sauceda-brown soft tissue admixed with dark brown blood clots, 2.7 x 1.8 x 1.0 cm in aggregate. Acoustical Carpenter sections submitted as A. B. Septum. Received in formalin are multiple irregular fragments of cartilage CONTINUED ON NEXT PAGE RUN DATE: 01/01/18 [facility] - LAB *LIVE* PAGE 2 RUN TIME: 1122 Specimen Inquiry RUN USER: INTERFACE SPEC #: [facility]:[id number] PATIENT: BOZENA MARSH #[id number] (Continued) GROSS DESCRIPTION (Continued) and bones, 5.0 x 3.5 x 0.7 cm in aggregate. The specimen is photographed for gross identification only. ba/nr Grossing performed at [facility] Pathology, [address], [address], [place], [place] [address]. Etiology Teacher: Ralph Dash M.D. MICROSCOPIC DESCRIPTION A. Bilateral inferior turbinates. Fragments of respiratory epithelium lined mucosa. There are benign mucus glands and a chronic inflammatory infiltrate. Fragments of unremarkable cartilage and bone present. No evidence of malignancy. B. Septum. For gross identification only. /doug Signed SIGNATURE ON FILE Kel Chatterjee 01/01/18 1122 END OF REPORT
[2022-05-26] MEDS ORDERED: ACETAMINOPHEN 500 MG TAB ONE (08:32)
[2022-05-26] MEDS ORDERED: ONDANSETRON 4 MG/2 ML VIAL ONE (08:32)
[2022-05-26] MEDS ORDERED: ONDANSETRON 4 MG (ODT) TAB ONE (08:33)
[2022-05-26] MEDS ORDERED: NA CHLORIDE 0.9% 1,000 ML ONE (08:46)
--- NOTE | 2022-05-26 09:21 | RAD REPORT ---
EXAM DESCRIPTION: RAD - Chest Single View - 05/26/2022 9:16 am CLINICAL HISTORY: COUGH COMPARISON: Chest Single View dated 12/10/2021; Chest Single View dated 03/06/2021; Chest Single View dated 01/14/2021; Chest Single View dated 01/07/2020 FINDINGS: Lines: None. Lungs: No evidence of edema or pneumonia. Pleural: No significant pleural effusions or pneumothorax. Cardiac: The heart size is within normal limits. Mediastinum: Within normal limits. Bones: No acute fractures. Other: None IMPRESSION: No acute cardiopulmonary disease.
[2022-05-26 09:22] LABS: SARS-COV-2 RT PCR NEGATIVE (NEGATIVE)
[2022-05-26 09:42] LABS: Absolute Lymphocytes (CBC) 0.9 K/uL (0.7-4.9); Hematocrit 46.6 % (36.0-45.0); MCV 90.4 fL (80-100); RBC Red Blood Cell Count 5.16 M/uL (3.86-4.86)
--- NOTE | 2022-05-26 10:27 | ER ---
Nurse's Notes [facility] Name: Tracey Rodriguez Age: 66 yrs Sex: Female : 1955 Arrival Date: 05/26/2022 Time: 08:17 Bed 20 Private MD: Diagnosis: Viral Syndrome;Acute upper respiratory infection, unspecified Presentation: 05/26 08:25 Chief complaint: Patient states: Patient states 3 days of sneezing, congestion and sg5 headache. Started z-pack yesterday and has ongoing headache, congestion with added stomach cramping and diarrhea. Initial Sepsis Screen: Does the patient meet any 2 criteria? No. Patient's initial sepsis screen is negative. Does the patient have a suspected source of infection? No. Patient's initial sepsis screen is negative. Risk Assessment: Do you want to hurt yourself or someone else? Patient reports no desire to harm self or others. Onset of symptoms was May 23, 2022. 08:25 Acuity: ANUJA 4 sg5 08:26 Coronavirus screen: Client denies travel out of the [place] in the last 14 days. Client sg5 presents with at least one sign or symptom that may indicate coronavirus-19. Standard/surgical mask placed on the client. Ebola Screen: No symptoms or risks identified at this time. 08:26 Method Of Arrival: Ambulatory sg5 08:29 Acuity: ANUJA 3 iw Triage Assessment: 08:29 Headache History: Denies prior headaches. General: Appears comfortable, Behavior is sg5 calm, cooperative, appropriate for age. Pain: Complains of pain in headache Pain currently is 8 out of 10 on a pain scale. Pain began 2-3 days ago. Also complains of nausea. Neuro: No deficits noted. Level of Consciousness is awake, alert, obeys commands, Oriented to person, place, time, situation, Appropriate for age. GI: Abdomen is round Reports lower abdominal pain. Historical: - Allergies: 08:29 anti-inflammatory (all); sg5 08:29 Ciprofloxacin; sg5 08:29 fluoroquinolones; sg5 08:29 Levaquin; sg5 08:29 Sulfa (Sulfonamide Antibiotics); sg5 - Home Meds: 08:29 Metoprolol Tartrate Oral [Active]; Omeprazole Oral [Active]; trimethoprim 100 mg Oral sg5 tab [Active]; Z-Pack [Active]; - PMHx: 08:29 Diverticulitis; sg5 - PSHx: 08:29 carpal tunnal repair; Colectomy; Ligation of fallopian tube; sg5 - Immunization history:: Adult Immunizations up to date, Client reports having NOT received the Covid vaccine. Last tetanus immunization: unknown, Flu vaccine is not up to date. - Social history:: Smoking status: Patient denies any tobacco usage or history of. Screenin:30 [facility] ED Fall Risk Assessment (Adult) History of falling in the last 3 months, db including since admission No falls in past 3 months (0 pts) Confusion or Disorientation No (0 pts) Intoxicated or Sedated No (0 pts) Impaired Gait No (0 pts) Mobility Assist Device Used No (0 pt) Altered Elimination No (0 pt) Score/Fall Risk Level 0 - 2 = Low Risk Oriented to surroundings, Maintained a safe environment. Abuse screen: Denies threats or abuse. Denies injuries from another. Nutritional screening: No deficits noted. Tuberculosis screening: No symptoms or risk factors identified. Assessment: 08:15 Reassessment: Patient appears in no apparent distress at this time. Patient and/or db family updated on plan of care and expected duration. Pain level reassessed. Patient is alert, oriented x 3, equal unlabored respirations, skin warm/dry/pink. headache, congestion with cold symptoms. States feels dehydrated. General: Appears in no apparent distress. comfortable, Behavior is calm, cooperative. Pain: Denies pain. Neuro: Level of Consciousness is awake, alert, obeys commands, Oriented to person, place, time, situation. Respiratory: Airway is patent Respiratory effort is even, unlabored, Respiratory pattern is regular, symmetrical. GI: Abdomen is distended, Abd is soft and non tender. 09:30 Reassessment: Patient appears in no apparent distress at this time. Patient and/or db family updated on plan of care and expected duration. Pain level reassessed. Patient is alert, oriented x 3, equal unlabored respirations, skin warm/dry/pink. Patient states feeling better. 10:30 Reassessment: Patient appears in no apparent distress at this time. Patient and/or db family updated on plan of care and expected duration. Pain level reassessed. Patient is alert, oriented x 3, equal unlabored respirations, skin warm/dry/pink. Vital Signs: 08:25 BP 127 / 75; Pulse 98; Resp 16; Temp 98.7; Pulse Ox 100% on R/A; Weight 90.72 kg; sg5 Height 5 ft. 0 in. (152.40 cm); Pain 8/10; 08:45 BP 131 / 74; Pulse 73; Resp 18; Pulse Ox 96% on R/A; db 10:34 BP 138 / 77; Pulse 71; Resp 18; Pulse Ox 100% on R/A; db 08:25 Body Mass Index 39.06 (90.72 kg, 152.40 cm) sg5 ED Course: 08:17 Patient arrived in ED. am2 08:18 Makeda Tatum FNP [facility] jh7 08:18 Dionicio Christensen DO is Attending Physician. jh7 08:20 Janna Jin, DOLORES is Primary Nurse. db 08:29 Triage completed. sg5 08:29 Arm band placed on right wrist. sg5 08:30 Patient has correct armband on for positive identification. Placed in gown. Bed in low db position. Call light in reach. Side rails up X 1. Pulse ox on. NIBP on. Warm blanket given. 08:50 BMP Sent. iw 08:50 CBC with Diff Sent. iw 08:50 Inserted saline lock: 22 gauge in right hand, using aseptic technique. iw 10:42 No provider procedures requiring assistance completed. IV discontinued, intact, db bleeding controlled, No redness/swelling at site. Administered Medications: 08:33 Drug: Ondansetron 4 mg Route: PO; db 10:53 Follow up: Response: No adverse reaction db 08:33 Drug: Tylenol 1000 mg Route: PO; db 10:53 Follow up: Response: No adverse reaction; Pain is decreased db 08:50 Drug: NS 0.9% 1000 ml Route: IV; Rate: 1 bolus; Site: right hand; iw 10:47 Follow up: Response: No adverse reaction; Marked relief of symptoms; IV Status: db Completed infusion; IV Intake: 1000ml 10:42 Drug: Ketorolac 15 mg Route: IVP; Site: right hand; 5 10:46 Follow up: Response: No adverse reaction; Pain is decreased db Medication: 10:51 VIS not applicable for this client. db Intake: 10:47 IV: 1000ml; Total: 1000ml. db Outcome: 10:26 Discharge ordered by MD. badillo 10:42 Discharged to home ambulatory, with family. db 10:42 Condition: stable 10:42 Discharge instructions given to patient, Instructed on discharge instructions, follow up and referral plans. Prescriptions given X 2. 10:52 Patient left the ED. db Signatures: Tracee Mena, RN RN iw Dorcas Coronel am2 Alea Fernandez, RN RN jh5 Makeda Tatum FNP PATIENT SERVICE REP 7 Janna Jin, RN RN db Jaky Sood, RN RN sg5
--- NOTE | 2022-05-26 10:27 | EDPHYS ---
Physician Documentation [facility] Name: Tracey Rodriguez Age: 66 yrs Sex: Female : 1955 Arrival Date: 05/26/2022 Time: 08:17 Bed 20 Private MD: ED Physician Dionicio Christensen HPI: 05/26 08:15 This 66 yrs old Female presents to ER via Unassigned with complaints of Headache, jh7 Congestion, Cough, sneezing. 08:15 66-year-old female reports that 3 days ago she began sneezing nonstop. Reports that it jh7 progressed into a headache, congestion, and productive cough. Reports that her PCP sent her a Z-Andrew yesterday. She reports that Z-Andrew usually gives her diarrhea and that she developed it shortly after starting the antibiotics. Denies fever, vomiting, chest pain, shortness of breath, or any other symptoms at this time.. Historical: - Allergies: 08:29 anti-inflammatory (all); sg5 08:29 Ciprofloxacin; sg5 08:29 fluoroquinolones; sg5 08:29 Levaquin; sg5 08:29 Sulfa (Sulfonamide Antibiotics); sg5 - Home Meds: 08:29 Metoprolol Tartrate Oral [Active]; Omeprazole Oral [Active]; trimethoprim 100 mg Oral sg5 tab [Active]; Z-Pack [Active]; - PMHx: 08:29 Diverticulitis; sg5 - PSHx: 08:29 carpal tunnal repair; Colectomy; Ligation of fallopian tube; sg5 - Immunization history:: Adult Immunizations up to date, Client reports having NOT received the Covid vaccine. Last tetanus immunization: unknown, Flu vaccine is not up to date. - Social history:: Smoking status: Patient denies any tobacco usage or history of. ROS: 08:15 Constitutional: Negative for fever, chills, and weight loss, Eyes: Negative for injury, jh7 pain, redness, and discharge, Neck: Negative for injury, pain, and swelling, Cardiovascular: Negative for chest pain, palpitations, and edema, Back: Negative for injury and pain, MS/Extremity: Negative for injury and deformity, Skin: Negative for injury, rash, and discoloration. 08:15 ENT: Positive for nasal discharge. 08:15 Respiratory: Positive for cough. 08:15 Abdomen/GI: Positive for nausea, diarrhea, Negative for vomiting, constipation. 08:15 Neuro: Positive for headache. 08:15 All other systems are negative. Exam: 08:15 Constitutional: This is a well developed, well nourished patient who is awake, alert, jh7 and in no acute distress. Head/Face: Normocephalic, atraumatic. Eyes: Pupils equal round and reactive to light, extra-ocular motions intact. Lids and lashes normal. Conjunctiva and sclera are non-icteric and not injected. Cornea within normal limits. Periorbital areas with no swelling, redness, or edema. Cardiovascular: Regular rate and rhythm with a normal S1 and S2. No gallops, murmurs, or rubs. Normal PMI, no JVD. No pulse deficits. Respiratory: Lungs have equal breath sounds bilaterally, clear to auscultation and percussion. No rales, rhonchi or wheezes noted. No increased work of breathing, no retractions or nasal flaring. Abdomen/GI: Soft, non-tender, with normal bowel sounds. No distension or tympany. No guarding or rebound. No evidence of tenderness throughout. Skin: Warm, dry with normal turgor. Normal color with no rashes, no lesions, and no evidence of cellulitis. MS/ Extremity: Pulses equal, no cyanosis. Neurovascular intact. Full, normal range of motion. Neuro: Awake and alert, GCS 15, oriented to person, place, time, and situation. Motor strength 5/5 in all extremities. Sensory grossly intact. Normal gait. 08:15 ENT: Nose: External nose: no obvious acute abnormality, Nasal septum: is midline, Nasal mucosa: normal, Turbinates: are normal, nasal drainage, and is seen coming from both nares, that is clear, congestion, Posterior pharynx: post nasal drainage. Vital Signs: 08:25 BP 127 / 75; Pulse 98; Resp 16; Temp 98.7; Pulse Ox 100% on R/A; Weight 90.72 kg; sg5 Height 5 ft. 0 in. (152.40 cm); Pain 8/10; 08:45 BP 131 / 74; Pulse 73; Resp 18; Pulse Ox 96% on R/A; db 10:34 BP 138 / 77; Pulse 71; Resp 18; Pulse Ox 100% on R/A; db 08:25 Body Mass Index 39.06 (90.72 kg, 152.40 cm) sg5 MDM: 08:18 Patient medically screened. [facility] 10:30 Differential diagnosis: otitis, tension headache, Viral upper respiratory infection, [facility] influenza, COVID. Data reviewed: vital signs, nurses notes, lab test result(s). I considered the following discharge prescriptions or medication management in the emergency department Medications were administered in the Emergency Department. See MAR. Independent interpretation of the following test(s) in the Emergency Department X-Ray: My interpretation is No acute findings. Historians other than the Patient: Spouse/Significant Other: . Counseling: I had a detailed discussion with the patient and/or guardian regarding: the historical points, exam findings, and any diagnostic results supporting the discharge/admit diagnosis, to return to the emergency department if symptoms worsen or persist or if there are any questions or concerns that arise at home. Response to treatment: the patient's symptoms have markedly improved after treatment. 05/26 08:25 Order name: COVID-19/FLU A+B [facility] 05/26 08:25 Order name: Strep [facility] 05/26 08:35 Order name: CBC with Diff [facility] 05/26 08:35 Order name: BMP [facility] 05/26 08:51 Order name: Group A Streptococcus Rapid Sc; Complete Time: 09:07 [facility] 05/26 09:22 Order name: COVID-19/FLU A+B; Complete Time: 09:36 [facility] 05/26 08:25 Order name: PO challenge; Complete Time: 08:33 [facility] 05/26 08:26 Order name: XRAY Chest (1 view) [facility] 05/26 09:21 Order name: RAD; Complete Time: 09:36 [facility] 05/26 09:45 Order name: CBC with Automated Diff; Complete Time: 09:53 [facility] 05/26 09:01 Order name: Labs - recollect needed: recollect green and lavender tube; Complete Time: bd 09:29 05/26 09:54 Order name: Labs - recollect needed: recollec 1 blue,1 lavender; Complete Time: 10:46 bd Administered Medications: 08:33 Drug: Ondansetron 4 mg Route: PO; db 10:53 Follow up: Response: No adverse reaction db 08:33 Drug: Tylenol 1000 mg Route: PO; db 10:53 Follow up: Response: No adverse reaction; Pain is decreased db 08:50 Drug: NS 0.9% 1000 ml Route: IV; Rate: 1 bolus; Site: right hand; iw 10:47 Follow up: Response: No adverse reaction; Marked relief of symptoms; IV Status: db Completed infusion; IV Intake: 1000ml 10:42 Drug: Ketorolac 15 mg Route: IVP; Site: right hand; jh5 10:46 Follow up: Response: No adverse reaction; Pain is decreased db Disposition: 08:24 PA/DISPOSAL MAN's history reviewed, patient interviewed, and examined. HPI: 66-year-old female ms3 presents for nasal congestion, sneezing, headache that been ongoing for 3 days. Patient states she recently started a Z-Andrew that was prescribed by her primary care physician; however, she stopped this due to diarrhea. My personal exam of patient reveals: On exam patient is alert and oriented x4, no apparent distress, nontoxic-appearing. Heart rate and rhythm are regular without murmurs rubs or gallops. Lungs are clear to auscultation bilaterally. Abdomen nontender to palpation with bowel sounds present. Skin without rashes or diaphoresis. Oropharynx with posterior nasal drip. 11:25 Co-signature as Attending Physician, Dionicio Christensen DO I reviewed the patient's care ms3 provided by Advanced Practice Provider \T\ agree w/ the diagnosis \T\ care plan. I personally saw the pt \T\ performed a substantive portion of the visit, incldng all aspects of the (History/Exam/Medical Decision Making). PA/DISPOSAL MAN's history reviewed, patient interviewed, and examined. I agree with assessment and care plan and confirm the diagnosis (es) above. Disposition Summary: 05/26/22 10:26 Discharge Ordered Location: Home [facility] Problem: new [facility] Symptoms: have improved [facility] Condition: Stable [facility] Diagnosis - Viral Syndrome jh7 - Acute upper respiratory infection, unspecified 7 Followup: 7 - With: Private Physician - When: 2 - 3 days - Reason: Recheck today's complaints Discharge Instructions: - Discharge Summary Sheet 7 - Dehydration, Adult jh7 - Viral Respiratory Infection [facility] Forms: - Medication Reconciliation Form [facility] - Thank You Letter [facility] Prescriptions: - ondansetron 4 mg Oral tablet,disintegrating - place 1 tablet by TRANSLINGUAL route 4 times per day As needed; 20 tablet; jh7 Refills: 0, Product Selection Permitted - Levsin 0.125 mg Oral Tablet - take 1 tablet by ORAL route every 8 hours; 30 tablet; Refills: 0, Product jh7 Selection Permitted Signatures: Dispatcher [employer] EDZoila Burch Irene, RN RN iw Dionicio Christensen, DO REYES ms3 Alea Fernandez RN RN jh5 Makeda Tatum, [employer] [facility] jh7 Janna Jin, RN RN db Jaky Sood RN RN sg5
[2022-05-26] MEDS ORDERED: KETOROLAC 30 MG/ML INJ ONE (10:42)
[2022-05-26 11:27] VITALS: TEMP 98.7
[2022-05-26 11:35] VITALS: BP 138/77; O2SAT 100
== END 2022-05-26 10:52 | disposition home or self-care (01) ==
LOC: ER 08:15
DX: B34.9 Viral infection, unspecified (principal); J06.9 Acute upper respiratory infection, unspecified; Z20.822 Contact with and (suspected) exposure to COVID-19; Z88.1 Allergy status to other antibiotic agents; Z88.2 Allergy status to sulfonamides; Z88.3 Allergy status to other anti-infective agents
CPT/HCPCS: 87070; 85025; 87081; 0240U; 71045; Q0162; J7030; 96361; 96374; 99284; J2405

== ENCOUNTER 2022-08-17 08:54 | Emergency (ER) | payer OTHER ==
--- OUTSIDE RECORDS SUMMARY | 2022-08-17 09:01 | XMS REPORT | Continuity of Care Document ---
:1955 Author Organization [facility] t Address [address] [place] [address] Care Team Providers Name Role Phone Silvio Babin MD, Shiela Primary Care Physician [phone] LUCIEN SHANNON Attending Clinician Unavailable CHIVO Attending Clinician Unavailable JOHN_Newton Attending Clinician Unavailable Emily Vazquez MD Attending Clinician [phone] Elvia Arauz Attending Clinician Unavailable Willy Lopez Attending Clinician [phone] Emily Longoria Attending Clinician [phone] MATTHEW NAGY Attending Clinician Unavailable Kaitlin Block Attending Clinician [phone] LUCIEN SHANNON Attending Clinician Unavailable JONATHAN Attending Clinician Unavailable GISEL Attending Clinician Unavailable Provider , Not In System Attending Clinician Unavailable Ginna Lord MA Attending Clinician Unavailable Roula Finn Attending Clinician [phone] SHIELA RASMUSSEN Attending Clinician Unavailable NICHELLE ALANIS Attending Clinician Unavailable CHRETIEN_F Admitting Clinician Unavailable SISFABIOLA_Newton Admitting Clinician Unavailable Elvia Arauz Admitting Clinician Unavailable LEVI_FLORIN Admitting Clinician Unavailable FRANCISCO_S Admitting Clinician Unavailable Payers Payer Name Policy Type Policy Number Effective Date Expiration Date Nolan desai AETNA CHOICE POS II [id number] 2002 2002 00:00:00 00:00:00 AETNA (MEDICARE [id number] 2022 REPLACEMENT PPO) 00:00:00 [place]IC[place]: [id number] 2021 [employer] 00:00:00 MEDICARE [place]: [id number] 2021 [employer] - 00:00:00 [facility] AETNA (INDEMNITY) [id number] 2002 00:00:00 MEDICARE B-[place]: [id number] 2021 [email or web address] 00:00:00 MEDICARE PART A AND [id number] 2021 B 00:00:00 AETNA (POS) [id number] 2020 00:00:00 Problems Condition Condition Condition Status Onset Resolution Last Treating Co mments Source Name Details Category Date Date Treatment Clinician Date Herpes Herpes Problem Active [place] zoster Zoster 5-16 [facility] 00:[facility]: ty [facility] Generalize Generalize Problem Active [facility] d anxiety d Anxiety 4-21 [facility] disorder Disorder 00:00: ty 00 [facility] Hypothyroi Hypothyroi Problem Active [facility] dism dism 4-11 [facility] 00[facility]00: ty [facility] Insomnia Insomnia Problem Active [facility] 4-11 [facility] 00:00: ty [facility] Acute Acute Problem Active 2021-03 [place] upper Upper 2-29 Communi respirator Respirator 00:00: ty y y 00 Hospita infection Infection l Clinics Nasal Nasal Problem Active 2021-03 [place] congestion Congestion 2-29 Co mmuni 00:00: ty 00 [facility] Clin[facility] Cough Cough Problem Active 2021-03 [place] 2-29 [facility] 00:00: ty 00 [facility] Clin[facility] Anxiety Anxiety Problem Active 2021-03 [place] 1-28 [facility] 00:00: ty [facility] Clinics 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 [place] memory Memory 04-26 [facility] disturbanc Disturbanc 00:00: ty e e 00 Hospita Clinics Allergic Allergic Problem Active 2021-03 [facility] rhinitis Rhinitis 04-26 Commun i 00:00: ty [facility]ospita Clinics Dizziness Dizziness Problem Active 2021-03 Swe venkat 04-26 [facility]: ty [facility] Contact Contact Problem Active [place] dermatitis Dermatitis 8-12 [facility] 00:00: ty [facility] Pruritic Pruritic Problem Active [facility] rash Rash 8-12 [facility] 00:00: ty 00 [facility]ospita Clinics Ganglion Ganglion Problem Active [facility] cyst of Cyst of 8 [facility] left hand Left Hand 00:00: ty [facility] Depressive Depressive Problem Active [facility] disorder Disorder 7- Commun i 00:00: ty [facility] Conjunctiv Conjunctiv Problem Active [facility] itis itis 7-25 [facility] 00:00: ty [facility] Acute Acute Problem Active [place] sinusitis Sinusitis 7-25 Comm uni 00:00: ty 00 Hospita Clinics Urinary Urinary Problem Active [place] tract Tract 7-25 [facility]i infectious Infectious 00:00: ty disease Disease 00 Hospita Clinics Diverticul Diverticul Problem Active [facility] itis itis 4-29 [facility] 00:00: ty [facility] No known No known Disease Metho di active active st problems problems Hospit a l Allergies, Adverse Reactions, Alerts Allergy Allergy Status Severity Reaction(s) Onset Inactive Treating Comm ents Source Name Type Date Date Clinician FLUROQUI DA Active [facility] HISTORY OF 9-30 Maxine an ALLERGIC 00:00: d REACTION 00 [facility] ciproflo DA Active SV 2017-03 [facility] xacin 0-01 [place] 00:[facility]: d 00 [facility] levoflox DA Active SV 2017-03 [facility] acin 0-01 [place] [facility]: d [facility] ANTI DA Active U UNKNOWN 2017-03 [facility] INFLAMMA 0- [place] TORY PO [...] Propensi Active Methodi (Sulfona ty to 06-05 mide adverse 00:00: Hospita Antibiot reaction 00 [...] l s to drug NSAIDS Allergy Active [place] (NON-DRAGAN to Communi ROIDAL substanc ty ANTI-INF e Hospita LAMMATOR l Y DRUG) Clinics QUINOLON Allergy Active [place] ES to Communi substanc ty e Hospita l Clinics Family History Family Member Diagnosis Comments Start Date Stop Date Source Natural father Heart disease [facility] Natural mother Cancer [facility] Social History Social Habit Start Date Stop Date Quantity Comments Source Gender identity [facility] Sexual orientation [facility] Alcohol intake 2021-08-21 2021-08-21 Current [facility] 00:00:00 00:00:00 non-drinker of Hospital alcohol (finding) History of Social 2021-08-21 2021-08-[address] function 00:00:00 00:00:00 Hospital Tobacco use and 2017-06-05 2017-06-05 Smokeless [facility] exposure 00:00:00 00:00:00 tobacco non-user Hospital Sex [birth year] At [birth year] [facility] 00:00:00 00:00:00 Hospital Smoking Status Start Date Stop Date Source Never smoked tobacco [facility] Medications Ordered Filled Start Stop Current Ordering Indication Dosage Frequency Signature Comments Components Source Medication Medication Date Date Medication? Clinician (SIG) Name Name Stephane Calderón 40 No Q1D Stephane 40 [place] mg/mL mg/mL 8-12 mg/mL Communi suspension suspension [...] per tablet day for 7 days. amoxicillin 2021-2021- No 1{tbl} Q.5D Take 1 M ethodi [...] per tablet day for 7 days. estradioL 2021-2022- No 1g Q.5W Insert 1 g M ethodi (ESTRACE) 08-22- into the st 0.01 % (0.1 00:00: 04:59 vagina 2 H ospita mg/gram) 00 :00 (two) l vaginal times a cream week. Use nightly for the first 2 weeks estradioL 2021-2022- No 1g Q.5W Insert 1 g M [...] nightly for the first 2 weeks estradioL 2021-2022- No 1g Q.5W Insert 1 g M ethodi (ESTRACE) 08-[address] 0.01 % (0.1 00:00: 04:59 vagina 2 H [facility]spita mg/gram) 00 :00 (two) l vaginal times a cream week. Use nightly for the first 2 weeks estradioL 2021-2022- No 1g Q.5W Insert 1 g M [...] 24 00 :00 l hr tablet oxybutynin 2021-0 2021- No 5mg QD Take 5 mg M ethodi XL 5- 05-[address] (DITROPAN-X 00:00: 00:00 daily. [facility] L) 5 MG 24 00 :00 l hr tablet oxybutynin 2021-0 2- No 5mg QD Take 5 mg M ethodi XL 5-13 05-[address] (DITROPAN-X 00:00: 00:00 daily. [facility] L) 5 MG 24 00 :00 l hr tablet oxybutynin 2021-0 2022- No 5mg QD Take 5 mg M ethodi XL 5-13 05-[address] (DITROPAN-X 00:00: 00:00 daily. [facility] L) 5 MG 24 00 :00 l hr tablet oxybutynin 2021-0 2022- No 5mg QD Take 5 mg M ethodi XL 5- 05-[address] (DITROPAN-X 00:00: 00:00 daily. [facility] L) 5 MG 24 00 :00 l hr tablet oxybutynin No 5mg QD Take 5 mg M ethodi XL 08-[address] (DITROPAN-X 00:00: 00:00 daily. [facility] L) 5 MG 24 00 :00 l hr tablet oxybutynin No 5mg QD Take 5 mg M ethodi XL 08-[address] (DITROPAN-X 00:00: 00:00 daily. [facility] L) 5 MG 24 00 :00 l hr tablet oxybutynin No 5mg QD Take 5 mg M ethodi XL 08-[address] (DITROPAN-X 00:00: 00:00 daily. [facility] L) 5 MG 24 00 :00 l hr tablet oxybutynin No 5mg QD Take 5 mg M ethodi XL 08-[address] (DITROPAN-X 00:00: 00:00 daily. [facility] L) 5 MG 24 00 :00 l hr tablet dexamethaso dexamethaso No dexamethas [place] ne sodium ne sodium 03 one sodium Communi phosphate phosphate 15:10: phosphate ty 10 mg/mL 10 mg/mL 00 10 mg/mL [facility] injection injection injection l solutionTak solutionTak solutionTa Clinics e 10 mg by e 10 mg by ke 10 mg injection injection by route. route. injection route. peg peg No peg [place] 3350-electr 3350-electr 3-03 3350-elect Communi olytes 236 olytes 236 00:00: rolytes ty gram-22.74 gram-22.74 00 236 [facility] gram-6.74 gram-6.74 gram-22.74 l gram-5.86 gram-5.86 gram-6.74 Clinics gram gram gram-5.86 solution solution gram MIX AND MIX AND solution DRINK DRINK MIX AND DIRECTED DIRECTED DRINK DIRECTED lidocaine lidocaine 2020-03 No Q1D lidocaine [place] (PF) 10 (PF) 10 0-18 (PF) 10 [...] Kenalog 40 2020-03 No Q1D Kenalog 40 [place] mg/mL mg/mL 0-18 mg/mL Communi suspension suspension [...] l mcg/actuati route on nasal daily. spray levothyroxi levothyroxi No levothyrox [place] ne 25 mcg ne 25 mcg ine 25 mcg Communi tablet TAKE tablet TAKE tablet ty 1 TABLET BY 1 TABLET BY TAKE 1 Hospita MOUTH EVERY MOUTH EVERY TABLET BY l DAY DAY MOUTH Clinics EVERY DAY meclizine meclizine No 1 TID meclizine [place] 25 mg 25 mg 25 mg Communi tablet Take tablet Take tablet ty 1 tablet 3 1 tablet 3 Take 1 H ospita times a day times a day tablet 3 l by oral by oral times a Clinic s route as route as day by needed. needed. oral route as needed. ondansetron ondansetron No ondansetro [place] 4 mg 4 mg n 4 mg Communi disintegrat disintegrat disintegra ty ing tablet ing tablet ting [facility] DISSOLVE 1 DISSOLVE 1 tablet l TO 2 TO 2 DISSOLVE 1 Clinics TABLETS TABLETS TO 2 UNDER THE UNDER THE TABLETS TONGUE TONGUE UNDER THE EVERY 6 EVERY 6 TONGUE HOURS FOR 5 HOURS FOR 5 EVERY 6 DAYS DAYS HOURS FOR NEEDED FOR NEEDED FOR 5 DAYS NAUSEA NAUSEA NEEDED FOR NAUSEA Xanax 0.25 Xanax 0.25 No 1 BID Xanax 0.25 [place] mg tablet mg tablet mg tablet Communi Take 1 Take 1 Take 1 ty tablet tablet tablet Hospita twice a day twice a day twice a l by oral by oral day by Clinics route for route for oral route 14 days. 14 days. for 14 days. alprazolam alprazolam No alprazolam [place] 0.25 mg 0.25 mg 0.25 mg Commun i tablet TAKE tablet TAKE tablet ty 1 TABLET BY 1 TABLET BY TAKE 1 Hospita MOUTH TWICE MOUTH TWICE TABLET BY l DAILY FOR DAILY FOR MOUTH Clin ics 14 DAYS 14 DAYS TWICE DAILY FOR 14 DAYS azelastine azelastine No azelastine [place] 205.5 mcg 205.5 mcg 205.5 mcg Communi (0.15 %) (0.15 %) (0.15 %) ty nasal spray nasal spray nasal Hospita USE 1 SPRAY USE 1 SPRAY spray USE l IN EACH IN EACH 1 SPRAY IN Cli nics NOSTRIL NOSTRIL EACH TWICE DAILY TWICE DAILY NOSTRIL TWICE DAILY buspirone 5 buspirone 5 No buspirone [place] mg tablet mg tablet 5 mg Commu ni TAKE 1 TAKE 1 tablet ty TABLET BY TABLET BY TAKE 1 [facility] MOUTH TWICE MOUTH TWICE TABLET BY l DAILY DAILY MOUTH Clinics TWICE DAILY estradiol estradiol No estradiol [place] 0.01% (0.1 0.01% (0.1 0.01% (0.1 Communi mg/gram) mg/gram) mg/gram) ty vaginal vaginal vaginal Hospit a cream cream cream l INSERT 1 INSERT 1 INSERT 1 Cli nics GRAM INTO GRAM INTO GRAM INTO VAGINA VAGINA VAGINA TWICE A TWICE A TWICE A WEEK AT WEEK AT WEEK AT NIGHT. NIGHT. NIGHT. fluticasone fluticasone No fluticason [place] propionate propionate e Com ricci 50 50 propionate ty mcg/actuati mcg/actuati 50 H ospita on nasal on nasal mcg/actuat l spray,suspe spray,suspe ion nasal Clinics nsion SHAKE nsion SHAKE spray,susp LIQUID AND LIQUID AND ension USE 1 SPRAY USE 1 SPRAY SHAKE IN EACH IN EACH LIQUID AND NOSTRIL NOSTRIL USE 1 EVERY DAY EVERY DAY SPRAY IN EACH NOSTRIL EVERY DAY hyoscyamine hyoscyamine No hyoscyamin [place] sulfate sulfate e sulfate Comm uni 0.125 mg 0.125 mg 0.125 mg ty tablet TAKE tablet TAKE tablet Hospita 1 TABLET BY 1 TABLET BY TAKE 1 l MOUTH EVERY MOUTH EVERY TABLET BY Clinics 8 HOURS 8 HOURS MOUTH EVERY 8 HOURS levothyroxi levothyroxi No levothyrox [place] ne 25 mcg ne 25 mcg ine 25 mcg Communi tablet TAKE tablet TAKE tablet ty 1 TABLET BY 1 TABLET BY TAKE 1 Hospita MOUTH EVERY MOUTH EVERY TABLET BY l DAY DAY MOUTH Clinics EVERY DAY meclizine meclizine No 1 TID meclizine [place] 25 mg 25 mg 25 mg Communi tablet Take tablet Take tablet ty 1 tablet 3 1 tablet 3 Take 1 H ospita times a day times a day tablet 3 l by oral by oral times a Clinic s route as route as day by needed. needed. oral route as needed. ondansetron ondansetron No ondansetro [place] 4 mg 4 mg n 4 mg Communi disintegrat disintegrat disintegra ty ing tablet ing tablet ting [facility] DISSOLVE 1 DISSOLVE 1 tablet l TO 2 TO 2 DISSOLVE 1 Clinics TABLETS TABLETS TO 2 UNDER THE UNDER THE TABLETS TONGUE TONGUE UNDER THE EVERY 6 EVERY 6 TONGUE HOURS FOR 5 HOURS FOR 5 EVERY 6 DAYS DAYS HOURS FOR NEEDED FOR NEEDED FOR 5 DAYS NAUSEA NAUSEA NEEDED FOR NAUSEA valacyclovi valacyclovi No 1 TID valacyclov [place] r 1 gram r 1 gram ir 1 gram Co m[facility]i tablet Take tablet Take tablet ty 1 tablet 3 1 tablet 3 Take 1 H ospita times a day times a day tablet 3 l by oral by oral times a Clinic s route for 7 route for 7 day by days. days. oral route for 7 days. Xifaxan 550 Xifaxan 550 No Xifaxan [place] mg tablet mg tablet 550 mg Com ricci tablet ty Hospita l Clinics acyclovir 5 acyclovir 5 No acyclovir [place] % topical % topical 5 % Commu ni ointment ointment topical ty APPLY TO APPLY TO ointment [facility] THE THE APPLY TO l AFFECTED AFFECTED THE Clinics AREA EVERY AREA EVERY AFFECTED 2 HOURS 2 HOURS AREA EVERY DURING DURING 2 HOURS AWAKE HOURS AWAKE HOURS DURING FOR 4 DAYS FOR 4 DAYS AWAKE HOURS FOR 4 DAYS amoxicillin amoxicillin No amoxicilli [place] 500 500 n 500 Communi mg-potassiu mg-potassiu [...] DIRECTED Clinics TODAY cephalexin cephalexin No cephalexin [place] 500 mg 500 mg 500 mg Communi capsule capsule capsule ty TAKE 1 TAKE 1 TAKE 1 Hospita CAPSULE BY CAPSULE BY CAPSULE BY l MOUTH TWICE MOUTH TWICE MOUTH Clinics DAILY DAILY TWICE DAILY estradiol estradiol No estradiol [place] 0.01% (0.1 0.01% (0.1 0.01% (0.1 Communi mg/gram) mg/gram) mg/gram) ty vaginal vaginal vaginal Hospit a cream cream cream l INSERT 1 INSERT 1 INSERT 1 Cli nics GRAM INTO GRAM INTO GRAM INTO VAGINA VAGINA VAGINA TWICE A TWICE A TWICE A WEEK AT WEEK AT WEEK AT NIGHT. NIGHT. NIGHT. fluconazole fluconazole No fluconazol [place] 150 mg 150 mg e 150 mg Communi tablet tablet tablet ty Hospita l Clinics hydroxyzine hydroxyzine No hydroxyzin [place] HCl 25 mg HCl 25 mg e [...] Kenalog 40 No 60mg Q1D Kenalog 40 [place] mg/mL mg/mL mg/mL [facility] suspension suspension suspension ty for for for Hospita injection injection injection l Take 60 mg Take 60 mg Take 60 mg Clinics every day every day every day by by by injection injection injection route. route. route. metoprolol metoprolol No metoprolol [place] succinate succinate succinate Communi ER 25 mg ER 25 mg ER 25 mg ty tablet,exte tablet,exte tablet,ext Hospita nded nded ended l release 24 release 24 release 24 Clinics hr TAKE 1 hr TAKE 1 hr TAKE 1 TABLET BY TABLET BY TABLET BY MOUTH EVERY MOUTH EVERY MOUTH DAY DAY EVERY DAY metronidazo metronidazo No metronidaz [place] le 500 mg le 500 mg ole 500 mg Communi tablet TAKE tablet TAKE tablet ty 1 TABLET BY 1 TABLET BY TAKE 1 Hospita MOUTH EVERY MOUTH EVERY TABLET BY l 8 HOURS FOR 8 HOURS FOR MOUTH Clinics 7 DAYS 7 DAYS EVERY 8 HOURS FOR 7 DAYS omeprazole omeprazole No omeprazole [place] 20 mg 20 mg 20 mg Communi capsule,del capsule,del capsule,de ty ayed ayed layed Hospita release release release l TAKE 1 TAKE 1 TAKE 1 Clinics CAPSULE BY CAPSULE BY CAPSULE BY MOUTH DAILY MOUTH DAILY MOUTH DAILY ondansetron ondansetron No ondansetro [place] 4 mg 4 mg n 4 mg [...] 6 DAYS NEEDED paroxetine paroxetine No paroxetine [place] ER 25 mg ER 25 mg ER 25 mg Com ricci tablet,exte tablet,exte tablet,ext ty nded nded ended Hospita release 24 release 24 release 24 l hr TAKE 1 hr TAKE 1 hr TAKE 1 Clinics TABLET BY TABLET BY TABLET BY MOUTH EVERY MOUTH EVERY MOUTH DAY DAY EVERY DAY tobramycin tobramycin No tobramycin [place] 0.3 0.3 0.3 Communi %-dexametha %-dexametha %-dexameth [...] FOR 5 DAYS triamcinolo triamcinolo No triamcinol [place] ne ne one Communi acetonide acetonide acetonide [...] FOR 7 DAYS trimethopri trimethopri No trimethopr [place] m 100 mg m 100 mg im 100 mg Co [facility]i tablet TAKE tablet TAKE tablet ty 1 TABLET BY 1 TABLET BY TAKE 1 Hospita MOUTH EVERY MOUTH EVERY TABLET BY l DAY DAY MOUTH Clinics EVERY DAY valacyclovi valacyclovi No valacyclov [place] r 1 gram r 1 gram ir 1 gram [facility] tablet TAKE tablet TAKE tablet ty 1 TABLET BY 1 TABLET BY TAKE 1 Hospita MOUTH TWICE MOUTH TWICE TABLET BY l DAILY prn DAILY prn MOUTH Clin ics TWICE DAILY prn amoxicillin amoxicillin No amoxicilli [place] [phone] [phone] 875 Communi mg-potassiu mg-potassiu mg-potassi ty m m um Hospita clavulanate clavulanate clavulanat l 125 mg 125 mg e 125 mg Clinics tablet tablet tablet Flagyl 500 Flagyl 500 No 1 Q8H Flagyl 500 [place] mg tablet mg tablet mg tablet Communi Take 1 Take 1 Take 1 ty tablet tablet tablet Hospita every 8 every 8 every 8 l hours by hours by hours by Cli nics oral route. oral route. oral route. prednisone prednisone No 1 BID prednisone [place] 20 mg 20 mg 20 mg Communi tablet Take tablet Take tablet ty 1 tablet 1 tablet Take 1 Hospi ta twice a day twice a day tablet l by oral by oral twice a Clinic s route for 5 route for 5 day by days. days. oral route for 5 days. Valtrex 1 Valtrex 1 No 1 TID Valtrex 1 [place] gram tablet gram tablet gram C ommuni Take 1 Take 1 tablet ty tablet 3 tablet 3 Take 1 Hospi ta times a day times a day tablet 3 l by oral by oral times a Clinic s route for 7 route for 7 day by days. days. oral route for 7 days. Vistaril 25 Vistaril 25 No 1capsul Q7H Vistaril [place] mg capsule mg capsule e(s) 25 mg Co m[facility]i Take 1 Take 1 capsule ty capsule capsule Take 1 Hospita every 6-8 every 6-8 capsule l hours by hours by every 6-8 Cl inics oral route oral route hours by as needed. as needed. oral route as needed. dicyclomine dicyclomine No 1 TID dicyclomin [place] 20 mg 20 mg e 20 mg Communi tablet Take tablet Take tablet ty 1 tablet 3 1 tablet 3 Take 1 H ospita times a day times a day tablet 3 l by oral by oral times a Clinic s route as route as day by needed. needed. oral route as needed. hyoscyamine hyoscyamine No hyoscyamin [place] 0.125 mg 0.125 mg e 0.125 mg C ommuni sublingual sublingual sublingual ty tablet tablet tablet [facility] ivermectin ivermectin No 2 BID ivermectin [place] 3 mg tablet 3 mg tablet 3 mg C ommuni Take 2 Take 2 tablet ty tablets tablets Take 2 Hospita twice a day twice a day tablets l by oral by oral twice a Clinic s route. route. day by oral route. Denavir 1 % Denavir 1 % No Denavir 1 [place] topical topical % topical Comm uni cream APPLY cream APPLY cream ty TO THE TO THE APPLY TO [facility] AFFECTED AFFECTED THE l AREA(S) BY AREA(S) BY AFFECTED Clinics TOPICAL TOPICAL AREA(S) BY ROUTE EVERY ROUTE EVERY TOPICAL 2 HOURS 2 HOURS ROUTE DURING DURING EVERY 2 WAKING WAKING HOURS HOURS FOR 4 HOURS FOR 4 DAYS WAKING HOURS FOR 4 DAYS Pataday Pataday No Pataday [place] Once Daily Once Daily Once Daily Communi [...] DAILY valacyclovi valacyclovi No 1 TID valacyclov [place] r 1 gram r 1 gram ir [...] % Denavir 1 % No Denavir 1 [place] topical topical % topical Comm uni cream APPLY cream APPLY cream ty TO THE TO THE APPLY TO [facility] AFFECTED AFFECTED THE l AREA(S) BY AREA(S) BY AFFECTED Clinics TOPICAL TOPICAL AREA(S) BY ROUTE EVERY ROUTE EVERY TOPICAL 2 HOURS 2 HOURS ROUTE DURING DURING EVERY 2 WAKING WAKING HOURS HOURS FOR 4 HOURS FOR 4 DAYS WAKING HOURS FOR 4 DAYS No [place] Once Daily Once Daily Once Daily Communi [...] DAILY valacyclovi valacyclovi No 1 TID valacyclov [place] r 1 gram r 1 gram ir [...] days. acyclovir 5 acyclovir 5 No acyclovir [place] % topical % topical 5 % Commu [...] DAYS cefdinir cefdinir No 1capsul Q12H cefdinir [place] 300 mg 300 mg e(s) 300 mg Communi capsule capsule capsule ty Take 1 Take 1 Take 1 Hospita capsule capsule capsule l every 12 every 12 every 12 Cli nics hours by hours by hours by oral route. oral route. oral route. Denavir 1 % Denavir 1 % No Denavir 1 [place] topical topical % topical Comm uni cream APPLY cream APPLY cream ty TO THE TO THE APPLY TO Hospita AFFECTED AFFECTED THE l AREA(S) BY AREA(S) BY AFFECTED Clinics TOPICAL TOPICAL AREA(S) BY ROUTE EVERY ROUTE EVERY TOPICAL 2 HOURS 2 HOURS ROUTE DURING DURING EVERY 2 WAKING WAKING HOURS HOURS FOR 4 HOURS FOR 4 DAYS WAKING HOURS FOR 4 DAYS hyoscyamine hyoscyamine No hyoscyamin [place] 0.125 mg 0.125 mg e 0.125 mg C om[facility]i disintegrat disintegrat disintegra ty ing tablet ing tablet ting [facility] Paty [place] Once Daily Once Daily Once Daily Communi Relief 0.2 Relief 0.2 Relief 0.2 ty % eye drops % eye drops % eye Hospita INSTILL 1 INSTILL 1 drops l DROP INTO DROP INTO INSTILL 1 Clinics AFFECTED AFFECTED DROP INTO EYE(S) BY EYE(S) BY AFFECTED OPHTHALMIC OPHTHALMIC EYE(S) BY ROUTE ONCE ROUTE ONCE OPHTHALMIC DAILY DAILY ROUTE ONCE DAILY sulfamethox sulfamethox No sulfametho [place] azole 800 azole 800 xazole 800 Communi mg-trimetho mg-trimetho mg-trimeth ty prim 160 mg prim 160 mg oprim 160 Hospita tablet tablet mg tablet l [facility] val[facility] No 1 TID valacyclov [place] r 1 gram r 1 gram ir [...] days. acyclovir 5 acyclovir 5 No acyclovir [place] % topical % topical 5 % Commu ni ointment ointment topical ty APPLY TO APPLY TO ointment [facility] THE THE APPLY TO l AFFECTED AFFECTED THE Clinics AREA EVERY AREA EVERY AFFECTED 2 HOURS 2 HOURS AREA EVERY DURING DURING 2 HOURS AWAKE HOURS AWAKE HOURS DURING FOR 4 DAYS FOR 4 DAYS AWAKE HOURS FOR 4 DAYS carbamazepi carbamazepi No carbamazep [place] ne ER 100 ne ER 100 ine ER 100 Communi mg mg mg ty tablet,exte tablet,exte tablet,ext Hospita nded nded ended l release,12 release,12 release,12 Clinics hr TAKE 1 hr TAKE 1 hr TAKE 1 TABLET BY TABLET BY TABLET BY MOUTH EVERY MOUTH EVERY MOUTH 12 HOURS 12 HOURS EVERY 12 HOURS hyoscyamine hyoscyamine No hyoscyamin [place] 0.125 mg 0.125 mg e 0.125 mg C [facility]i disintegrat disintegrat disintegra ty ing tablet ing tablet ting [facility] tablet l [facility] val[facility] No valacyclov [place] r 1 gram r 1 gram ir 1 gram Co [facility] tablet TAKE tablet TAKE tablet ty 1 TABLET BY 1 TABLET BY TAKE 1 Hospita MOUTH EVERY MOUTH EVERY TABLET BY l DAY FOR 30 DAY FOR 30 MOUTH Cl inics DAYS DAYS EVERY DAY FOR 30 DAYS acyclovir 5 acyclovir 5 No acyclovir [place] % topical % topical 5 % Commu [...] DAYS clonidine clonidine No 1 Q1D clonidine [place] HCl ER 0.1 HCl ER 0.1 HCl [...] evening. DripDrop DripDrop No 1packet Q1D DripDrop [place] 305 mg-175 305 mg-175 (s) 305 mg-175 Communi mg-70 mg mg-70 mg mg-70 mg ty oral powder oral powder oral H ospita packet Take packet Take powder l 1 packet 1 packet packet Clini cs every day every day Take 1 by oral by oral packet route as route as every day needed. needed. by oral route as needed. hyoscyamine hyoscyamine No hyoscyamin [place] 0.125 mg 0.125 mg e 0.125 mg C om[facility]i disintegrat disintegrat disintegra ty ing tablet ing tablet ting [facility] tablet l Clinics Kenalog 40 Kenalog 40 No .5mL Q1D Kenalog 40 [place] mg/mL mg/mL mg/mL Communi suspension suspension suspension ty for for for Hospita injection injection injection l Take 0.5 mL Take 0.5 mL Take 0.5 Clinics every day every day mL every by by day by injection injection injection route for 1 route for 1 route for day. day. 1 day. lidocaine lidocaine No 2mL Q1D lidocaine [place] (PF) 10 (PF) 10 (PF) 10 Commun i mg/mL (1 %) mg/mL (1 %) mg/mL (1 ty injection injection %) Hospi ta solution solution injection l Take 2 mL Take 2 mL solution C linics every day every day Take 2 mL by by every day injection injection by route. route. injection route. pantoprazol pantoprazol No 1 Q1D pantoprazo [place] e 40 mg e 40 mg le 40 mg [facility] tablet,hodan tablet,hodan tablet,del ty yed release yed release ayed [facility] Take 1 Take 1 release l tablet tablet Take 1 Clinics every day every day tablet by oral by oral every day route. route. by oral route. valacyclovi valacyclovi No valacyclov [place] r 1 gram r 1 gram ir 1 gram [facility] tablet TAKE tablet TAKE tablet ty 1 TABLET BY 1 TABLET BY TAKE 1 Hospita MOUTH EVERY MOUTH EVERY TABLET BY l DAY FOR 30 DAY FOR 30 MOUTH Cl inics DAYS DAYS EVERY DAY FOR 30 DAYS Artificial Artificial No 1drop(s Q1D Artificial [place] Tears Tears ) Tears [facility] (polyvinyl (polyvinyl (polyvinyl ty alcohol) alcohol) alcohol) [facility] 1.4 % eye 1.4 % eye 1.4 % eye l drops Apply drops Apply drops Clinics 1 drop 1 drop Apply 1 every day every day drop every by by day by ophthalmic ophthalmic ophthalmic route. route. route. azithromyci azithromyci No 1 Q1D azithromyc [place] n 500 mg n 500 mg in 500 mg [facility] tablet Take tablet Take tablet ty 1 tablet 1 tablet Take 1 Hospi ta every day every day tablet l by oral by oral every day Clin ics route for 5 route for 5 by oral days. days. route for 5 days. DripDrop DripDrop No 1packet Q1D DripDrop [place] 305 mg-175 305 mg-175 (s) 305 mg-175 [facility] mg-70 mg mg-70 mg mg-70 mg ty oral powder oral powder oral [facility] packet Take packet Take powder l 1 packet 1 packet packet Clini cs every day every day Take 1 by oral by oral packet route as route as every day needed. needed. by oral route as needed. hyoscyamine hyoscyamine No hyoscyamin [place] 0.125 mg 0.125 mg e 0.125 mg [facility] disintegrat disintegrat disintegra ty ing tablet ing tablet ting [facility] tablet l Clinics pantoprazol pantoprazol No pantoprazo [place] e 40 mg e 40 mg le 40 mg [facility] tablet,hodan tablet,hodan tablet,del ty yed release yed release ayed [facility] TAKE 1 TAKE 1 release l TABLET BY TABLET BY TAKE 1 Cli nics MOUTH EVERY MOUTH EVERY TABLET BY DAY DAY MOUTH EVERY DAY acetylcyste acetylcyste No 1capsul BID acetylcyst [place] ine 600 mg ine 600 mg e(s) eine 600 [facility] capsule capsule mg capsule ty Take 1 Take 1 Take 1 Hospita capsule capsule capsule l twice a day twice a day twice a Clinics by oral by oral day by route. route. oral route. Artificial Artificial No 1drop(s Q1D Artificial [place] Tears Tears ) Tears [facility] (polyvinyl (polyvinyl (polyvinyl ty alcohol) alcohol) alcohol) [facility] 1.4 % eye 1.4 % eye 1.4 % eye l drops Apply drops Apply drops Clinics 1 drop 1 drop Apply 1 every day every day drop every by by day by ophthalmic ophthalmic ophthalmic route. route. route. Effexor XR Effexor XR No 1capsul Q1D Effexor XR [place] 75 mg 75 mg e(s) 75 mg [facility] capsule,ext capsule,ext capsule,ex ty ended ended tended Hospita release release release l Take 1 Take 1 Take 1 Clinics capsule capsule capsule every day every day every day by oral by oral by oral route for route for route for 90 days. 90 days. 90 days. hyoscyamine hyoscyamine No hyoscyamin [place] 0.125 mg 0.125 mg e 0.125 mg [facility] disintegrat disintegrat disintegra ty ing tablet ing tablet ting [facility] tablet l Clinics pantoprazol pantoprazol No pantoprazo [place] e 40 mg e 40 mg le 40 mg [facility] tablet,hodan tablet,hodan tablet,del ty yed release yed release ayed [facility] TAKE 1 TAKE 1 release l TABLET BY TABLET BY TAKE 1 Cli nics MOUTH EVERY MOUTH EVERY TABLET BY DAY DAY MOUTH EVERY DAY acetylcyste acetylcyste No 1capsul BID acetylcyst [place] ine 600 mg ine 600 mg e(s) eine 600 [facility] capsule capsule mg capsule ty Take 1 Take 1 Take 1 Hospita capsule capsule capsule l twice a day twice a day twice a Clinics by oral by oral day by route. route. oral route. Artificial Artificial No 1drop(s Q1D Artificial [place] Tears Tears ) Tears [facility] (polyvinyl (polyvinyl (polyvinyl ty alcohol) alcohol) alcohol) [facility] 1.4 % eye 1.4 % eye 1.4 % eye l drops Apply drops Apply drops Clinics 1 drop 1 drop Apply 1 every day every day drop every by by day by ophthalmic ophthalmic ophthalmic route. route. route. Effexor XR Effexor XR No 1capsul Q1D Effexor XR [place] 75 mg 75 mg e(s) 75 mg [facility] capsule,ext capsule,ext capsule,ex ty ended ended tended Hospita release release release l Take 1 Take 1 Take 1 Clinics capsule capsule capsule every day every day every day by oral by oral by oral route for route for route for 90 days. 90 days. 90 days. hyoscyamine hyoscyamine No hyoscyamin [place] 0.125 mg 0.125 mg e 0.125 mg [facility] disintegrat disintegrat disintegra ty ing tablet ing tablet ting [facility] tablet l Clinics pantoprazol pantoprazol No pantoprazo [place] e 40 mg e 40 mg le 40 mg [facility] tablet,hodan tablet,hodan tablet,del ty yed release yed release ayed [facility] TAKE 1 TAKE 1 release l TABLET BY TABLET BY TAKE 1 Cli nics MOUTH EVERY MOUTH EVERY TABLET BY DAY DAY MOUTH EVERY DAY acyclovir acyclovir No 1 Q1D acyclovir [place] 400 mg 400 mg 400 mg [facility] tablet Take tablet Take tablet ty 1 tablet 1 tablet Take 1 Hospi ta every day every day tablet l by oral by oral every day Clin ics route for route for by oral 30 days. 30 days. route for 30 days. amoxicillin amoxicillin No amoxicilli [place] [phone] n 875 [facility] mg-potassiu mg-potassiu mg-potassi ty m m um [facility]ospita clavulanate clavulanate clavulanat l 125 mg 125 mg e 125 mg Clinics tablet TAKE tablet TAKE tablet 1 TABLET BY 1 TABLET BY TAKE 1 MOUTH EVERY MOUTH EVERY TABLET BY 12 HOURS 12 HOURS MOUTH EVERY 12 HOURS metronidazo metronidazo No metronidaz [place] le 500 mg le 500 mg ole 500 mg [facility] tablet TAKE tablet TAKE tablet ty 1 TABLET BY 1 TABLET BY TAKE 1 Hospita MOUTH EVERY MOUTH EVERY TABLET BY l 8 HOURS 8 HOURS MOUTH Clinics EVERY 8 HOURS ondansetron ondansetron No ondansetro [place] 4 mg 4 mg n 4 mg [facility] disintegrat disintegrat disintegra ty ing tablet ing tablet ting [facility] tablet l Clinics Xifaxan 550 Xifaxan 550 No 1 BID Xifaxan [place] mg tablet mg tablet 550 mg Com ricci Take 1 Take 1 tablet ty tablet tablet Take 1 Hospita twice a day twice a day tablet l by oral by oral twice a Clinic s route. route. day by oral route. acyclovir acyclovir No acyclovir [place] 400 mg 400 mg 400 mg [facility] [...] by oral route. metronidazo metronidazo No metronidaz [place] le 500 mg le 500 mg ole 500 mg [facility] tablet TAKE tablet TAKE tablet ty 1 TABLET BY 1 TABLET BY TAKE 1 [facility]ospita MOUTH EVERY MOUTH EVERY TABLET BY l 8 HOURS 8 HOURS MOUTH Clinics EVERY 8 HOURS ondansetron ondansetron No ondansetro [place] 4 mg 4 mg n 4 mg [facility] disintegrat disintegrat disintegra ty ing tablet ing tablet ting [facility] tablet l Clinics pantoprazol pantoprazol No pantoprazo [place] e 40 mg e 40 mg le 40 mg [facility] tablet,hodan tablet,hodan tablet,del ty yed release yed release ayed [facility] release l Clinics peg peg No peg [place] 3350-electr 3350-electr 3350-elect [facility] olytes 236 olytes 236 rolytes ty gram-22.74 gram-22.74 236 [facility] gram-6.74 gram-6.74 gram-22.74 l gram-5.86 gram-5.86 gram-6.74 Clinics gram gram gram-5.86 solution solution gram MIX AND MIX AND solution DRINK DRINK MIX AND DIRECTED DIRECTED DRINK DIRECTED sucralfate sucralfate No 1 QID sucralfate [place] 1 gram 1 gram 1 gram [facility] tablet Take tablet Take tablet ty 1 tablet 4 1 tablet 4 Take 1 [facility] times a day times a day tablet 4 l by oral by oral times a Clinic s route. route. day by oral route. venlafaxine venlafaxine No venlafaxin [place] ER 75 mg ER 75 mg e ER 75 mg [facility] capsule,ext capsule,ext capsule,ex ty ended ended tended Hospita release 24 release 24 release 24 l hr hr hr Clinics Xifaxan 550 Xifaxan 550 No Xifaxan [place] mg tablet mg tablet 550 mg [facility] Take 1 Take 1 tablet ty tablet tablet Take 1 Hospita twice a day twice a day tablet l by oral by oral twice a Clinic s route. route. day by oral route. dexamethaso dexamethaso No 10mg dexamethas [place] ne sodium ne sodium one sodium [facility] phosphate phosphate phosphate ty 10 mg/mL 10 mg/mL 10 mg/mL [facility] injection injection injection l solution solution solution Cli nics Take 10 mg Take 10 mg Take 10 mg by by by injection injection injection route. route. route. dicyclomine dicyclomine No 1 TID dicyclomin [place] 20 mg 20 mg e 20 mg [facility] tablet Take tablet Take tablet ty 1 tablet 3 1 tablet 3 Take 1 [facility] times a day times a day tablet 3 l by oral by oral times a Clinic s route as route as day by needed. needed. oral route as needed. gabapentin gabapentin No 1capsul BID gabapentin [place] 300 mg 300 mg e(s) 300 mg [facility] capsule capsule capsule ty Take 1 Take 1 Take 1 Hospita capsule capsule capsule l twice a day twice a day twice a Clinics by oral by oral day by route. route. oral route. montelukast montelukast No 1 Q1D montelukas [place] 10 mg 10 mg t 10 mg [facility] tablet Take tablet Take tablet ty 1 tablet 1 tablet Take 1 Hospi ta every day every day tablet l by oral by oral every day Clin ics route. route. by oral route. acyclovir 5 acyclovir 5 No acyclovir [place] % topical % topical 5 % Commu [...] Bactrim DS No 1 Q12H Bactrim DS [place] 800 mg-160 800 mg-160 800 mg-160 [facility] mg tablet mg tablet mg tablet ty Take 1 Take 1 Take 1 Hospita tablet tablet tablet l every 12 every 12 every 12 Cli nics hours by hours by hours by oral route oral route oral route for 10 for 10 for 10 days. days. days. diclofenac diclofenac No diclofenac [place] 1 % topical 1 % topical 1 [...] route. valacyclovi valacyclovi No 1 BID valacyclov [place] r 1 gram r 1 gram ir 1 gram [facility] tablet Take tablet Take tablet ty 1 tablet 1 tablet Take 1 Hospi ta twice a day twice a day tablet l by oral by oral twice a Clinic s route. route. day by oral route. acyclovir 5 acyclovir 5 No acyclovir [place] % topical % topical 5 % [facility] ointment ointment topical ty APPLY TO APPLY TO ointment [facility] THE THE APPLY TO l AFFECTED AFFECTED THE Clinics AREA EVERY AREA EVERY AFFECTED 2 HOURS 2 HOURS AREA EVERY DURING DURING 2 HOURS AWAKE HOURS AWAKE HOURS DURING FOR 4 DAYS FOR 4 DAYS AWAKE HOURS FOR 4 DAYS diclofenac diclofenac No diclofenac [place] 1 % topical 1 % topical 1 % [facility] gel APPLY 2 gel APPLY 2 topical ty GRAMS GRAMS gel APPLY [facility]ospita TOPICALLY TOPICALLY 2 GRAMS l TO THE TO THE TOPICALLY Clinic s AFFECTED AFFECTED TO THE AREA FOUR AREA FOUR AFFECTED TIMES DAILY TIMES DAILY AREA FOUR TIMES DAILY phenazopyri phenazopyri No phenazopyr [place] dine 200 mg dine 200 mg idine 200 [facility] tablet TAKE tablet TAKE mg tablet ty 1 TABLET BY 1 TABLET BY TAKE 1 Hospita MOUTH EVERY MOUTH EVERY TABLET BY l 8 HOURS 8 HOURS MOUTH Clinics EVERY 8 HOURS sulfamethox sulfamethox No sulfametho [place] azole 800 azole 800 xazole 800 [facility] mg-trimetho mg-trimetho mg-trimeth ty prim 160 mg prim 160 mg oprim 160 [facility]ospita tablet TAKE tablet TAKE mg tablet l 1 TABLET BY 1 TABLET BY TAKE 1 Clinics MOUTH EVERY MOUTH EVERY TABLET BY 12 HOURS 12 HOURS MOUTH FOR 10 DAYS FOR 10 DAYS EVERY 12 HOURS FOR 10 DAYS valacyclovi valacyclovi No valacyclov [place] r 1 gram r 1 gram ir 1 gram [facility] tablet TAKE tablet TAKE tablet ty 1 TABLET BY 1 TABLET BY TAKE 1 Hospita MOUTH TWICE MOUTH TWICE TABLET BY l DAILY DAILY MOUTH Clinics TWICE DAILY acyclovir 5 acyclovir 5 No acyclovir [place] % topical % topical 5 % [facility] ointment ointment topical ty APPLY TO APPLY TO ointment [facility] THE THE APPLY TO l AFFECTED AFFECTED THE Clinics AREA EVERY AREA EVERY AFFECTED 2 HOURS 2 HOURS AREA EVERY DURING DURING 2 HOURS AWAKE HOURS AWAKE HOURS DURING FOR 4 DAYS FOR 4 DAYS AWAKE HOURS FOR 4 DAYS cefuroxime cefuroxime No cefuroxime [place] axetil 500 axetil 500 axetil 500 [facility] mg tablet mg tablet mg tablet ty TAKE 1 TAKE 1 TAKE 1 Hospita TABLET BY TABLET BY TABLET BY l MOUTH EVERY MOUTH EVERY MOUTH Clinics 12 HOURS 12 HOURS EVERY 12 FOR 7 DAYS FOR 7 DAYS HOURS FOR 7 DAYS diclofenac diclofenac No diclofenac [place] 1 % topical 1 % topical 1 % [facility] gel APPLY 2 gel APPLY 2 topical ty GRAMS GRAMS gel APPLY [facility]ospita TOPICALLY TOPICALLY 2 GRAMS l TO THE TO THE TOPICALLY Clinic s AFFECTED AFFECTED TO THE AREA FOUR AREA FOUR AFFECTED TIMES DAILY TIMES DAILY AREA FOUR TIMES DAILY dicyclomine dicyclomine No dicyclomin [place] 20 mg 20 mg e 20 mg [facility] tablet TAKE tablet TAKE tablet ty 1 TABLET BY 1 TABLET BY TAKE 1 Hospita MOUTH 4 MOUTH 4 TABLET BY l TIMES A DAY TIMES A DAY MOUTH 4 Clinics NEEDED NEEDED TIMES A DAY NEEDED phenazopyri phenazopyri No phenazopyr [place] dine 200 mg dine 200 mg idine 200 [facility] tablet TAKE tablet TAKE mg tablet ty 1 TABLET BY 1 TABLET BY TAKE 1 [facility]ospita MOUTH EVERY MOUTH EVERY TABLET BY l 8 HOURS FOR 8 HOURS FOR MOUTH Clinics 2 DAYS 2 DAYS EVERY 8 HOURS FOR 2 DAYS sulfamethox sulfamethox No sulfametho [place] azole 800 azole 800 xazole 800 [facility] mg-trimetho mg-trimetho mg-trimeth ty prim 160 mg prim 160 mg oprim 160 [facility]ospita tablet TAKE tablet TAKE mg tablet l 1 TABLET BY 1 TABLET BY TAKE 1 Clinics MOUTH EVERY MOUTH EVERY TABLET BY 12 HOURS 12 HOURS MOUTH FOR 10 DAYS FOR 10 DAYS EVERY 12 HOURS FOR 10 DAYS valacyclovi valacyclovi No valacyclov [place] r 1 gram r 1 gram ir 1 gram [facility] tablet TAKE tablet TAKE tablet ty 1 TABLET BY 1 TABLET BY TAKE 1 Hospita MOUTH TWICE MOUTH TWICE TABLET BY l DAILY DAILY MOUTH Clinics TWICE DAILY acyclovir 5 acyclovir 5 No acyclovir [place] % topical % topical 5 % [facility] ointment ointment topical ty APPLY TO APPLY TO ointment [facility] THE THE APPLY TO l AFFECTED AFFECTED THE Clinics AREA EVERY AREA EVERY AFFECTED 2 HOURS 2 HOURS AREA EVERY DURING DURING 2 HOURS AWAKE HOURS AWAKE HOURS DURING FOR 4 DAYS FOR 4 DAYS AWAKE HOURS FOR 4 DAYS amoxicillin amoxicillin No amoxicilli [place] 500 500 n 500 [facility] mg-potassiu mg-potassiu mg-potassi [facility] cl[facility] clavulanate clavulanat l 125 mg 125 mg e 125 mg Clinics tablet TAKE tablet TAKE tablet 1 TABLET BY 1 TABLET BY TAKE 1 MOUTH EVERY MOUTH EVERY TABLET BY 12 HOURS 12 HOURS MOUTH FOR 7 DAYS FOR 7 DAYS EVERY 12 HOURS FOR 7 DAYS amoxicillin amoxicillin No amoxicilli [place] [id number] 875 n 875 [facility] mg-potassiu mg-potassiu mg-potassi ty m m um [facility]ospita clavulanate clavulanate clavulanat l 125 mg 125 mg e 125 mg Clinics tablet TAKE tablet TAKE tablet 1 TABLET BY 1 TABLET BY TAKE 1 MOUTH TWICE MOUTH TWICE TABLET BY DAILY FOR 7 DAILY FOR 7 MOUTH DAYS DAYS TWICE DAILY FOR 7 DAYS cefuroxime cefuroxime No cefuroxime [place] axetil 500 axetil 500 axetil 500 [facility] mg tablet mg tablet mg tablet ty TAKE 1 TAKE 1 TAKE 1 [facility]ospita TABLET BY TABLET BY TABLET BY l MOUTH EVERY MOUTH EVERY MOUTH Clinics 12 HOURS 12 HOURS EVERY 12 FOR 7 DAYS FOR 7 DAYS HOURS FOR 7 DAYS diclofenac diclofenac No diclofenac [place] 1 % topical 1 % topical 1 % [facility] gel APPLY 2 gel APPLY 2 topical ty GRAMS GRAMS gel APPLY [facility]ospita TOPICALLY TOPICALLY 2 GRAMS l TO THE TO THE TOPICALLY Clinic s AFFECTED AFFECTED TO THE AREA FOUR AREA FOUR AFFECTED TIMES DAILY TIMES DAILY AREA FOUR TIMES DAILY dicyclomine dicyclomine No dicyclomin [place] 20 mg 20 mg e 20 mg [facility] tablet TAKE tablet TAKE tablet ty 1 TABLET BY 1 TABLET BY TAKE 1 Hospita MOUTH 4 MOUTH 4 TABLET BY l TIMES A DAY TIMES A DAY MOUTH 4 Clinics NEEDED NEEDED TIMES A DAY NEEDED estradiol estradiol No estradiol [place] 0.01% (0.1 0.01% (0.1 0.01% (0.1 [facility] mg/gram) mg/gram) mg/gram) ty vaginal vaginal vaginal Hospit a cream cream cream l INSERT 1 INSERT 1 INSERT 1 Cli nics GRAM INTO GRAM INTO GRAM INTO VAGINA VAGINA VAGINA TWICE A TWICE A TWICE A WEEK AT WEEK AT WEEK AT NIGHT. NIGHT. NIGHT. fluconazole fluconazole No fluconazol [place] 150 mg 150 mg e 150 mg [facility] tablet TAKE tablet TAKE tablet ty 1 TABLET BY 1 TABLET BY TAKE 1 [facility]ospita MOUTH EVERY MOUTH EVERY TABLET BY l 72 HOURS 72 HOURS MOUTH Clinic s EVERY 72 HOURS metoprolol metoprolol No metoprolol [place] succinate succinate succinate [facility] ER 25 mg ER 25 mg ER 25 mg ty tablet,exte tablet,exte tablet,ext Hospita nded nded ended l release 24 release 24 release 24 Clinics hr TAKE 1 hr TAKE 1 hr TAKE 1 TABLET BY TABLET BY TABLET BY MOUTH EVERY MOUTH EVERY MOUTH DAY DAY EVERY DAY nitrofurant nitrofurant No nitrofuran [place] oin oin toin [facility] monohydrate monohydrate monohydrat ty /macrocryst /macrocryst e/macrocry Hospita als 100 mg als 100 mg stals 100 l capsule capsule mg capsule Cli nics oxybutynin oxybutynin No oxybutynin [place] chloride ER chloride ER chloride [facility] 5 mg 5 mg ER 5 mg ty tablet,exte tablet,exte tablet,ext Hospita nded nded ended l release 24 release 24 release 24 Clinics hr TAKE 1 hr TAKE 1 hr TAKE 1 TABLET BY TABLET BY TABLET BY MOUTH EVERY MOUTH EVERY MOUTH DAY DAY EVERY DAY phenazopyri phenazopyri No phenazopyr [place] dine 200 mg dine 200 mg idine 200 [facility] tablet TAKE tablet TAKE mg tablet ty 1 TABLET BY 1 TABLET BY TAKE 1 [facility]ospita MOUTH EVERY MOUTH EVERY TABLET BY l 8 HOURS FOR 8 HOURS FOR MOUTH Clinics 2 DAYS 2 DAYS EVERY 8 HOURS FOR 2 DAYS sulfamethox sulfamethox No sulfametho [place] azole 800 azole 800 xazole 800 Communi [...] Suprax 400 No 1capsul Q1D Suprax 400 [place] mg capsule mg capsule e(s) mg capsule [facility] Take 1 Take 1 Take 1 ty capsule capsule capsule Hospit a every day every day every day l by oral by oral by oral Clinic s route for 7 route for 7 route for days. days. 7 days. valacyclovi valacyclovi No valacyclov [place] r 1 gram r 1 gram ir 1 gram [facility] tablet TAKE tablet TAKE tablet ty 1 TABLET BY 1 TABLET BY TAKE 1 Hospita MOUTH TWICE MOUTH TWICE TABLET BY l DAILY DAILY MOUTH Clinics TWICE DAILY acyclovir 5 acyclovir 5 No acyclovir [place] % topical % topical 5 % [facility] ointment ointment topical ty APPLY TO APPLY TO ointment [facility] THE THE APPLY TO l AFFECTED AFFECTED THE Clinics AREA EVERY AREA EVERY AFFECTED 2 HOURS 2 HOURS AREA EVERY DURING DURING 2 HOURS AWAKE HOURS AWAKE HOURS DURING FOR 4 DAYS FOR 4 DAYS AWAKE HOURS FOR 4 DAYS estradiol estradiol No estradiol [place] 0.01% (0.1 0.01% (0.1 0.01% (0.1 [facility] mg/gram) mg/gram) mg/gram) ty vaginal vaginal vaginal Hospit a cream cream cream l INSERT 1 INSERT 1 INSERT 1 Cli nics GRAM INTO GRAM INTO GRAM INTO VAGINA VAGINA VAGINA TWICE A TWICE A TWICE A WEEK AT WEEK AT WEEK AT NIGHT. NIGHT. NIGHT. metoprolol metoprolol No metoprolol [place] succinate succinate succinate [facility] ER 25 mg [...] CR 25 No 1 Q1D Paxil CR [place] mg mg 25 mg [facility] tablet,exte tablet,exte tablet,ext ty nded nded ended Hospita release release release l Take 1 Take 1 Take 1 Clinics tablet tablet tablet every day every day every day by oral by oral by oral route. route. route. Suprax 400 Suprax 400 No 1capsul Q1D Suprax 400 [place] mg capsule mg capsule e(s) mg capsule [...] HOURS 5 days valacyclovi valacyclovi No valacyclov [place] r 1 gram r 1 gram ir 1 gram [facility] tablet TAKE tablet TAKE tablet ty 1 TABLET BY 1 TABLET BY TAKE 1 Hospita MOUTH TWICE MOUTH TWICE TABLET BY l DAILY DAILY MOUTH Clinics TWICE DAILY Zithromax Zithromax No Zithromax [place] Z-Andrew 250 Z-Andrew 250 Z-Andrew 250 Communi [...] DAYS acyclovir 5 acyclovir 5 No acyclovir [place] % topical % topical 5 % [facility] ointment ointment topical ty APPLY TO APPLY TO ointment [facility] THE THE APPLY TO l AFFECTED AFFECTED THE Clinics AREA EVERY AREA EVERY AFFECTED 2 HOURS 2 HOURS AREA EVERY DURING DURING 2 HOURS AWAKE HOURS AWAKE HOURS DURING FOR 4 DAYS FOR 4 DAYS AWAKE HOURS FOR 4 DAYS estradiol estradiol No estradiol [place] 0.01% (0.1 0.01% (0.1 0.01% (0.1 [facility] mg/gram) mg/gram) mg/gram) ty vaginal vaginal vaginal Hospit a cream cream cream l INSERT 1 INSERT 1 INSERT 1 Cli nics GRAM INTO GRAM INTO GRAM INTO VAGINA VAGINA VAGINA TWICE A TWICE A TWICE A WEEK AT WEEK AT WEEK AT NIGHT. NIGHT. NIGHT. fluconazole fluconazole No fluconazol [place] 150 mg 150 mg e 150 mg [facility] tablet tablet tablet ty Hospita l Clinics hydroxyzine hydroxyzine No 1 TID hydroxyzin [place] HCl 25 mg HCl 25 mg e [...] Kenalog 40 No 60mg Q1D Kenalog 40 [place] mg/mL mg/mL mg/mL [facility] suspension suspension suspension ty for for for Hospita injection injection injection l Take 60 mg Take 60 mg Take 60 mg Clinics every day every day every day by by by injection injection injection route. route. route. metoprolol metoprolol No metoprolol [place] succinate succinate succinate [facility] ER 25 mg ER 25 mg ER 25 mg ty tablet,exte tablet,exte tablet,ext [facility]ospita nded nded ended l release 24 release 24 release 24 Clinics hr TAKE 1 hr TAKE 1 hr TAKE 1 TABLET BY TABLET BY TABLET BY MOUTH EVERY MOUTH EVERY MOUTH DAY DAY EVERY DAY omeprazole omeprazole No omeprazole [place] 20 mg 20 mg 20 mg [facility] capsule,del capsule,del capsule,de ty ayed ayed layed [facility]osp[facility] release release release l TAKE 1 TAKE 1 TAKE 1 Clinics CAPSULE BY CAPSULE BY CAPSULE BY MOUTH DAILY MOUTH DAILY MOUTH DAILY paroxetine paroxetine No paroxetine [place] ER 25 mg ER 25 mg ER 25 mg Com ricci tablet,exte tablet,exte tablet,ext ty nded nded ended [facility]ospita release 24 release 24 release 24 l hr TAKE 1 hr TAKE 1 hr TAKE 1 Clinics TABLET BY TABLET BY TABLET BY MOUTH EVERY MOUTH EVERY MOUTH DAY DAY EVERY DAY tobramycin tobramycin No tobramycin [place] 0.3 0.3 0.3 [facility] %-dexametha %-dexametha %-dexameth [...] FOR 5 DAYS triamcinolo triamcinolo No triamcinol [place] ne ne one [facility] acetonide acetonide acetonide [...] days days days trimethopri trimethopri No trimethopr [place] m 100 mg m 100 mg im 100 mg [facility] tablet TAKE tablet TAKE tablet ty 1 TABLET BY 1 TABLET BY TAKE 1 [facility]ospita MOUTH EVERY MOUTH EVERY TABLET BY l DAY DAY MOUTH Clinics EVERY DAY valacyclovi valacyclovi No valacyclov [place] r 1 gram r 1 gram ir 1 gram [facility] tablet TAKE tablet TAKE tablet ty 1 TABLET BY 1 TABLET BY TAKE 1 Hospita MOUTH TWICE MOUTH TWICE TABLET BY l DAILY prn DAILY prn MOUTH Clin ics TWICE DAILY prn acyclovir 5 acyclovir 5 No acyclovir [place] % topical % topical 5 % Commu [...] DAYS Augmentin Augmentin No 1 Q12H Augmentin [place] 500 mg-125 500 mg-125 500 mg-125 [facility] mg tablet mg tablet mg tablet ty Take 1 Take 1 Take 1 Hospita tablet tablet tablet l every 12 every 12 every 12 Cli nics hours by hours by hours by oral route oral route oral route for 10 for 10 for 10 days. days. days. cephalexin cephalexin No cephalexin [place] 500 mg 500 mg 500 mg [facility] capsule capsule capsule ty TAKE 1 TAKE 1 TAKE 1 [facility]ospita CAPSULE BY CAPSULE BY CAPSULE BY l MOUTH TWICE MOUTH TWICE MOUTH Clinics DAILY DAILY TWICE DAILY estradiol estradiol No estradiol [place] 0.01% (0.1 0.01% (0.1 0.01% (0.1 [facility] mg/gram) mg/gram) mg/gram) ty vaginal vaginal vaginal Hospit a cream cream cream l INSERT 1 INSERT 1 INSERT 1 Cli nics GRAM INTO GRAM INTO GRAM INTO VAGINA VAGINA VAGINA TWICE A TWICE A TWICE A WEEK AT WEEK AT WEEK AT NIGHT. NIGHT. NIGHT. fluconazole fluconazole No fluconazol [place] 150 mg 150 mg e 150 mg [facility] tablet tablet tablet ty [facility]osp[facility] l Clinics hydroxyzine hydroxyzine No hydroxyzin [place] HCl 25 mg HCl 25 mg e [...] Kenalog 40 No 60mg Q1D Kenalog 40 [place] mg/mL mg/mL mg/mL [facility] suspension suspension suspension ty for for for Hospita injection injection injection l Take 60 mg Take 60 mg Take 60 mg Clinics every day every day every day by by by injection injection injection route. route. route. metoprolol metoprolol No metoprolol [place] succinate succinate succinate [facility] ER 25 mg ER 25 mg ER 25 mg ty tablet,exte tablet,exte tablet,ext [facility]ospita nded nded ended l release 24 release 24 release 24 Clinics hr TAKE 1 hr TAKE 1 hr TAKE 1 TABLET BY TABLET BY TABLET BY MOUTH EVERY MOUTH EVERY MOUTH DAY DAY EVERY DAY metronidazo metronidazo No 1 Q8H metronidaz [place] le 500 mg le 500 mg ole 500 mg [facility] tablet Take tablet Take tablet ty 1 tablet 1 tablet Take 1 Hospi ta every 8 every 8 tablet l hours by hours by every 8 Clin ics oral route oral route hours by for 7 days. for 7 days. oral route for 7 days. omeprazole omeprazole No omeprazole [place] 20 mg 20 mg 20 mg [facility] capsule,del capsule,del capsule,de ty ayed ayed layed [facility]ospita release release release l TAKE 1 TAKE 1 TAKE 1 Clinics CAPSULE BY CAPSULE BY CAPSULE BY MOUTH DAILY MOUTH DAILY MOUTH DAILY ondansetron ondansetron No 1 Q6H ondansetro [place] 4 mg 4 mg n 4 mg [...] for 6 days. paroxetine paroxetine No paroxetine [place] ER 25 mg ER 25 mg ER 25 mg Com ricci tablet,exte tablet,exte tablet,ext ty nded nded ended Hospita release 24 release 24 release 24 l hr TAKE 1 hr TAKE 1 hr TAKE 1 Clinics TABLET BY TABLET BY TABLET BY MOUTH EVERY MOUTH EVERY MOUTH DAY DAY EVERY DAY tobramycin tobramycin No tobramycin [place] 0.3 0.3 0.3 [facility] %-dexametha %-dexametha %-dexameth [...] FOR 5 DAYS triamcinolo triamcinolo No triamcinol [place] ne ne one [facility] acetonide acetonide acetonide [...] FOR 7 DAYS trimethopri trimethopri No trimethopr [place] m 100 mg m 100 mg im 100 mg [facility] tablet TAKE tablet TAKE tablet ty 1 TABLET BY 1 TABLET BY TAKE 1 Hospita MOUTH EVERY MOUTH EVERY TABLET BY l DAY DAY MOUTH Clinics EVERY DAY valacyclovi valacyclovi No valacyclov [place] r 1 gram r 1 gram ir 1 gram [facility] tablet TAKE tablet TAKE tablet ty 1 TABLET BY 1 TABLET BY TAKE 1 Hospita MOUTH TWICE MOUTH TWICE TABLET BY l DAILY prn DAILY prn MOUTH Clin ics TWICE DAILY prn acyclovir 5 acyclovir 5 No acyclovir [place] % topical % topical 5 % Commu ni ointment ointment topical ty APPLY TO APPLY TO ointment [facility] THE THE APPLY TO l AFFECTED AFFECTED THE Clinics AREA EVERY AREA EVERY AFFECTED 2 HOURS 2 HOURS AREA EVERY DURING DURING 2 HOURS AWAKE HOURS AWAKE HOURS DURING FOR 4 DAYS FOR 4 DAYS AWAKE HOURS FOR 4 DAYS amoxicillin amoxicillin No amoxicilli [place] 500 500 n 500 [facility] mg-potassiu mg-potassiu [...] DAYS benzonatate benzonatate No 1capsul TID benzonatat [place] 100 mg 100 mg e(s) e 100 [...] DIRECTED Clinics TODAY cephalexin cephalexin No cephalexin [place] 500 mg 500 mg 500 mg [facility] capsule capsule capsule ty TAKE 1 TAKE 1 TAKE 1 Hospita CAPSULE BY CAPSULE BY CAPSULE BY l MOUTH TWICE MOUTH TWICE MOUTH Clinics DAILY DAILY TWICE DAILY estradiol estradiol No estradiol [place] 0.01% (0.1 0.01% (0.1 0.01% (0.1 [facility] mg/gram) mg/gram) mg/gram) ty vaginal vaginal vaginal Hospit a cream cream cream l INSERT 1 INSERT 1 INSERT 1 Cli nics GRAM INTO GRAM INTO GRAM INTO VAGINA VAGINA VAGINA TWICE A TWICE A TWICE A WEEK AT WEEK AT WEEK AT NIGHT. NIGHT. NIGHT. fluconazole fluconazole No fluconazol [place] 150 mg 150 mg e 150 mg [facility] tablet tablet tablet ty [facility]osp[facility] l Clinics hydroxyzine hydroxyzine No hydroxyzin [place] HCl 25 mg HCl 25 mg e [...] Kenalog 40 No 60mg Q1D Kenalog 40 [place] mg/mL mg/mL mg/mL [facility] suspension suspension suspension ty for for for Hospita injection injection injection l Take 60 mg Take 60 mg Take 60 mg Clinics every day every day every day by by by injection injection injection route. route. route. meloxicam meloxicam No 1 Q1D meloxicam [place] 15 mg 15 mg 15 mg [facility] tablet Take tablet Take tablet ty 1 tablet 1 tablet Take 1 Hospi ta every day every day tablet l by oral by oral every day Clin ics route for route for by oral 30 days. 30 days. route for 30 days. metoprolol metoprolol No metoprolol [place] succinate succinate succinate [facility] ER 25 mg ER 25 mg ER 25 mg ty tablet,exte tablet,exte tablet,ext [facility]ospita nded nded ended l release 24 release 24 release 24 Clinics hr TAKE 1 hr TAKE 1 hr TAKE 1 TABLET BY TABLET BY TABLET BY MOUTH EVERY MOUTH EVERY MOUTH DAY DAY EVERY DAY metronidazo metronidazo No metronidaz [place] le 500 mg le 500 mg ole 500 mg [facility] tablet TAKE tablet TAKE tablet ty 1 TABLET BY 1 TABLET BY TAKE 1 [facility]ospita MOUTH EVERY MOUTH EVERY TABLET BY l 8 HOURS FOR 8 HOURS FOR MOUTH Clinics 7 DAYS 7 DAYS EVERY 8 HOURS FOR 7 DAYS omeprazole omeprazole No omeprazole [place] 20 mg 20 mg 20 mg [facility] capsule,del capsule,del capsule,de ty ayed ayed layed [facility]ospita release release release l TAKE 1 TAKE 1 TAKE 1 Clinics CAPSULE BY CAPSULE BY CAPSULE BY MOUTH DAILY MOUTH DAILY MOUTH DAILY ondansetron ondansetron No ondansetro [place] 4 mg 4 mg n 4 mg [...] 6 DAYS NEEDED paroxetine paroxetine No paroxetine [place] ER 25 mg ER 25 mg ER 25 mg Com ricci tablet,exte tablet,exte tablet,ext ty nded nded ended [facility]osp[facility] release 24 release 24 release 24 l hr TAKE 1 hr TAKE 1 hr TAKE 1 Clinics TABLET BY TABLET BY TABLET BY MOUTH EVERY MOUTH EVERY MOUTH DAY DAY EVERY DAY tobramycin tobramycin No tobramycin [place] 0.3 0.3 0.3 [facility] %-dexametha %-dexametha %-dexameth [...] DAYS tramadol 50 tramadol 50 No tramadol [place] mg tablet mg tablet 50 mg Comm uni tablet ty [facility]osp[facility] l Clinics triamcinolo triamcinolo No triamcinol [place] ne ne one [facility] acetonide acetonide acetonide [...] FOR 7 DAYS trimethopri trimethopri No trimethopr [place] m 100 mg m 100 mg im 100 mg [facility] tablet TAKE tablet TAKE tablet ty 1 TABLET BY 1 TABLET BY TAKE 1 [facility]ospita MOUTH EVERY MOUTH EVERY TABLET BY l DAY DAY MOUTH Clinics EVERY DAY valacyclovi valacyclovi No valacyclov [place] r 1 gram r 1 gram ir 1 gram [facility] tablet TAKE tablet TAKE tablet ty 1 TABLET BY 1 TABLET BY TAKE 1 Hospita MOUTH TWICE MOUTH TWICE TABLET BY l DAILY prn DAILY prn MOUTH Clin ics TWICE DAILY prn Zithromax Zithromax No Zithromax [place] Z-Andrew 250 Z-Andrew 250 Z-Andrew 250 Communi [...] DAYS cetirizine cetirizine No 1 Q1D cetirizine [place] 10 mg 10 mg 10 mg [facility] tablet Take tablet Take tablet ty 1 tablet 1 tablet Take 1 Hospi ta every day every day tablet l by oral by oral every day Clin ics route at route at by oral bedtime. bedtime. route at bedtime. estradiol estradiol No estradiol [place] 0.01% (0.1 0.01% (0.1 0.01% (0.1 [facility] mg/gram) mg/gram) mg/gram) ty vaginal vaginal vaginal Hospit a cream cream cream l INSERT 1 INSERT 1 INSERT 1 Cli nics GRAM INTO GRAM INTO GRAM INTO VAGINA VAGINA VAGINA TWICE A TWICE A TWICE A WEEK AT WEEK AT WEEK AT NIGHT. NIGHT. NIGHT. fluticasone fluticasone No 1spray( Q1D fluticason [place] propionate propionate s) e Com ricci 50 50 propionate ty mcg/actuati mcg/actuati 50 H [facility]spita on nasal on nasal mcg/actuat l spray,suspe spray,suspe ion nasal Clinics nsion [place] nsion [place] spray,susp 1 spray 1 spray ension every day every day [place] 1 by by spray intranasal intranasal every day route. route. by intranasal route. meclizine meclizine No 1 TID meclizine [place] 25 mg 25 mg 25 mg [facility] tablet Take tablet Take tablet ty 1 tablet 3 1 tablet 3 Take 1 H [facility]spita times a day times a day tablet 3 l by oral by oral times a Clinic s route as route as day by needed. needed. oral route as needed. ondansetron ondansetron No ondansetro [place] 4 mg 4 mg n 4 mg [...] NEEDED propranolol propranolol No 1 TID propranolo [place] 10 mg 10 mg l 10 mg [facility] tablet Take tablet Take tablet ty 1 tablet 3 1 tablet 3 Take 1 H [facility] times a day times a day tablet 3 l by oral by oral times a Clinic s route as route as day by needed. needed. oral route as needed. azelastine azelastine No azelastine [place] 205.5 mcg 205.5 mcg 205.5 mcg [facility] (0.15 %) (0.15 %) (0.15 %) ty nasal spray nasal spray nasal [facility]osp[facility] 1 SPRAY TO 1 SPRAY TO spray 1 l EACH EACH SPRAY TO Clinics NOSTRIL NOSTRIL EACH TWICE DAILY TWICE DAILY NOSTRIL TWICE DAILY azithromyci azithromyci No azithromyc [place] n 250 mg n 250 mg in 250 mg [facility] tablet tablet tablet ty [facility]osp[facility] l Clinics cetirizine cetirizine No cetirizine [place] 10 mg 10 mg 10 mg [facility] tablet TAKE tablet TAKE tablet ty 1 TABLET BY 1 TABLET BY TAKE 1 Hospita MOUTH EVERY MOUTH EVERY TABLET BY l NIGHT AT NIGHT AT MOUTH Clinic s BEDTIME BEDTIME EVERY NIGHT AT BEDTIME estradiol estradiol No estradiol [place] 0.01% (0.1 0.01% (0.1 0.01% (0.1 [facility] mg/gram) mg/gram) mg/gram) ty vaginal vaginal vaginal Hospit a cream cream cream l INSERT 1 INSERT 1 INSERT 1 Cli nics GRAM INTO GRAM INTO GRAM INTO VAGINA VAGINA VAGINA TWICE A TWICE A TWICE A WEEK AT WEEK AT WEEK AT NIGHT. NIGHT. NIGHT. fluticasone fluticasone No fluticason [place] propionate propionate e Com ricci 50 50 [...] NOSTRIL EVERY DAY hydroxyzine hydroxyzine No hydroxyzin [place] HCl 25 mg HCl 25 mg e HCl 25 [facility] tablet TAKE tablet TAKE mg tablet ty 1 TABLET BY 1 TABLET BY TAKE 1 [facility]ospita MOUTH EVERY MOUTH EVERY TABLET BY l 6 HOURS 6 HOURS MOUTH Cl inics NEEDED NEEDED EVERY 6 HOURS NEEDED meclizine meclizine No 1 TID meclizine [place] 25 mg 25 mg 25 mg [facility] tablet Take tablet Take tablet ty 1 tablet 3 1 tablet 3 Take 1 H [facility] times a day times a day tablet 3 l by oral by oral times a Clinic s route as route as day by needed. needed. oral route as needed. Medrol Medrol No 1dose Medrol [place] (Andrew) 4 mg (Andrew) 4 mg pk(s) (Andrew) 4 mg [facility] tablets in tablets in tablets in ty a dose pack a dose pack a dose Hospita Take 1 dose Take 1 dose pack Take l pk by oral pk by oral 1 dose pk Clinics route as route as by oral directed. directed. route as directed. ondansetron ondansetron No ondansetro [place] 4 mg 4 mg n 4 mg [facility] disintegrat disintegrat disintegra ty ing tablet ing tablet ting [facility] DISSOLVE 1 DISSOLVE 1 tablet l TABLET ON TABLET ON DISSOLVE 1 Clinics THE TOUNGE THE TOUNGE TABLET ON EVERY 8 EVERY 8 THE TOUNGE HOURS HOURS EVERY 8 NEEDED NEEDED HOURS NEEDED propranolol propranolol No propranolo [place] 10 mg 10 mg l 10 mg [facility] tablet TAKE tablet TAKE tablet ty 1 TABLET BY 1 TABLET BY TAKE 1 Hospita MOUTH THREE MOUTH THREE TABLET BY l TIMES DAILY TIMES DAILY MOUTH Clinics NEEDED NEEDED THREE TIMES DAILY NEEDED azelastine azelastine No azelastine [place] 205.5 mcg 205.5 mcg 205.5 mcg [facility] (0.15 %) (0.15 %) (0.15 %) ty nasal spray nasal spray nasal [facility]osp[facility] USE 1 SPRAY USE 1 SPRAY spray USE l IN EACH IN EACH 1 SPRAY IN Cli nics NOSTRIL NOSTRIL EACH TWICE DAILY TWICE DAILY NOSTRIL TWICE DAILY estradiol estradiol No estradiol [place] 0.01% (0.1 0.01% (0.1 0.01% (0.1 [facility] mg/gram) mg/gram) mg/gram) ty vaginal vaginal vaginal Hospit a cream cream cream l INSERT 1 INSERT 1 INSERT 1 Cli nics GRAM INTO GRAM INTO GRAM INTO VAGINA VAGINA VAGINA TWICE A TWICE A TWICE A WEEK AT WEEK AT WEEK AT NIGHT. NIGHT. NIGHT. fluticasone fluticasone No fluticason [place] propionate propionate e Com ricci 50 50 [...] EACH NOSTRIL EVERY DAY hydroxyzine hydroxyzine No 1 BID hydroxyzin [place] HCl 25 mg HCl 25 mg e HCl 25 C [facility] tablet Take tablet Take mg tablet ty 1 tablet 1 tablet Take 1 Hospi ta twice a day twice a day tablet l by oral by oral twice a Clinic s route as route as day by needed. needed. oral route as needed. hyoscyamine hyoscyamine No hyoscyamin [place] sulfate sulfate e sulfate Comm uni 0.125 mg 0.125 mg 0.125 mg ty tablet TAKE tablet TAKE tablet Hosp[facility] 1 TABLET BY 1 TABLET BY TAKE 1 l MOUTH EVERY MOUTH EVERY TABLET BY Clinics 8 HOURS 8 HOURS MOUTH EVERY 8 HOURS levothyroxi levothyroxi No 1 Q1D levothyrox [place] ne 25 mcg ne 25 mcg ine 25 mcg [facility] tablet Take tablet Take tablet ty 1 tablet 1 tablet Take 1 Hospi ta every day every day tablet l by oral by oral every day Clin ics route. route. by oral route. meclizine meclizine No 1 TID meclizine [place] 25 mg 25 mg 25 mg [facility] tablet Take tablet Take tablet ty 1 tablet 3 1 tablet 3 Take 1 H [facility] times a day times a day tablet 3 l by oral by oral times a Clinic s route as route as day by needed. needed. oral route as needed. venlafaxine venlafaxine No 1capsul Q1D venlafaxin [place] ER 37.5 mg ER 37.5 mg e(s) e ER 37.5 [facility] capsule,ext capsule,ext mg t y ended ended capsule,ex Hospita release 24 release 24 tended l hr Take 1 hr Take 1 release 24 Clinics capsule capsule hr Take 1 every day every day capsule by oral by oral every day route. route. by oral route. azelastine azelastine No azelastine [place] 205.5 mcg 205.5 mcg 205.5 mcg [facility] (0.15 %) (0.15 %) (0.15 %) ty nasal spray nasal spray nasal [facility]osp[facility] USE 1 SPRAY USE 1 SPRAY spray USE l IN EACH IN EACH 1 SPRAY IN Cli nics NOSTRIL NOSTRIL EACH TWICE DAILY TWICE DAILY NOSTRIL TWICE DAILY estradiol estradiol No estradiol [place] 0.01% (0.1 0.01% (0.1 0.01% (0.1 [facility] mg/gram) mg/gram) mg/gram) ty vaginal vaginal vaginal Hospit a cream cream cream l INSERT 1 INSERT 1 INSERT 1 Cli nics GRAM INTO GRAM INTO GRAM INTO VAGINA VAGINA VAGINA TWICE A TWICE A TWICE A WEEK AT WEEK AT WEEK AT NIGHT. NIGHT. NIGHT. fluticasone fluticasone No fluticason [place] propionate propionate e Com ricci 50 50 [...] EACH NOSTRIL EVERY DAY hydroxyzine hydroxyzine No 1 BID hydroxyzin [place] HCl 25 mg HCl 25 mg e HCl 25 C [facility] tablet Take tablet Take mg tablet ty 1 tablet 1 tablet Take 1 Hospi ta twice a day twice a day tablet l by oral by oral twice a Clinic s route as route as day by needed. needed. oral route as needed. hyoscyamine hyoscyamine No hyoscyamin [place] sulfate sulfate e sulfate Comm uni 0.125 mg 0.125 mg 0.125 mg ty tablet TAKE tablet TAKE tablet [facility]osp[facility] 1 TABLET BY 1 TABLET BY TAKE 1 l MOUTH EVERY MOUTH EVERY TABLET BY Clinics 8 HOURS 8 HOURS MOUTH EVERY 8 HOURS levothyroxi levothyroxi No 1 Q1D levothyrox [place] ne 25 mcg ne 25 mcg ine 25 mcg [facility] tablet Take tablet Take tablet ty 1 tablet 1 tablet Take 1 Hospi ta every day every day tablet l by oral by oral every day Clin ics route. route. by oral route. meclizine meclizine No 1 TID meclizine [place] 25 mg 25 mg 25 mg [facility] tablet Take tablet Take tablet ty 1 tablet 3 1 tablet 3 Take 1 [facility] times a day times a day tablet 3 l by oral by oral times a Clinic s route as route as day by needed. needed. oral route as needed. venlafaxine venlafaxine No 1capsul Q1D venlafaxin [place] ER 37.5 mg ER 37.5 mg e(s) e ER 37.5 [facility] capsule,ext capsule,ext mg t y ended ended capsule,ex [facility]osp[facility] release 24 release 24 tended l hr Take 1 hr Take 1 release 24 Clinics capsule capsule hr Take 1 every day every day capsule by oral by oral every day route. route. by oral route. azelastine azelastine No azelastine [place] 205.5 mcg 205.5 mcg 205.5 mcg [facility] (0.15 %) (0.15 %) (0.15 %) ty nasal spray nasal spray nasal [facility]osp[facility] USE 1 SPRAY USE 1 SPRAY spray USE l IN EACH IN EACH 1 SPRAY IN Cli nics NOSTRIL NOSTRIL EACH TWICE DAILY TWICE DAILY NOSTRIL TWICE DAILY buspirone 5 buspirone 5 No 1 BID buspirone [place] mg tablet mg tablet 5 mg Commu ni Take 1 Take 1 tablet ty tablet tablet Take 1 Hospita twice a day twice a day tablet l by oral by oral twice a Clinic s route for route for day by 30 days. 30 days. oral route for 30 days. dicyclomine dicyclomine No dicyclomin [place] 20 mg 20 mg e 20 mg [facility] tablet TAKE tablet TAKE tablet ty 1 TABLET BY 1 TABLET BY TAKE 1 [facility]ospita MOUTH EVERY MOUTH EVERY TABLET BY l 6 HOURS FOR 6 HOURS FOR MOUTH Clinics 7 DAYS 7 DAYS EVERY 6 NEEDED NEEDED HOURS FOR ABDOMINAL ABDOMINAL 7 DAYS CRAMPS OR CRAMPS OR NEEDED DISCOMFORT DISCOMFORT ABDOMINAL CRAMPS OR DISCOMFORT estradiol estradiol No estradiol [place] 0.01% (0.1 0.01% (0.1 0.01% (0.1 [facility] mg/gram) mg/gram) mg/gram) ty vaginal vaginal vaginal Hospit a cream cream cream l INSERT 1 INSERT 1 INSERT 1 Cli nics GRAM INTO GRAM INTO GRAM INTO VAGINA VAGINA VAGINA TWICE A TWICE A TWICE A WEEK AT WEEK AT WEEK AT NIGHT. NIGHT. NIGHT. famotidine famotidine No famotidine [place] 20 mg 20 mg 20 mg [facility] tablet TAKE tablet TAKE tablet ty 1 TABLET BY 1 TABLET BY TAKE 1 [facility]ospita MOUTH EVERY MOUTH EVERY TABLET BY l 12 HOURS 12 HOURS MOUTH Clinic s EVERY 12 HOURS fluticasone fluticasone No fluticason [place] propionate propionate e Com ricci 50 50 propionate ty mcg/actuati mcg/actuati 50 [facility] on nasal on nasal mcg/actuat l spray,suspe spray,suspe ion nasal Clinics nsion SHAKE nsion SHAKE spray,susp LIQUID AND LIQUID AND ension USE 1 SPRAY USE 1 SPRAY SHAKE IN EACH IN EACH LIQUID AND NOSTRIL NOSTRIL USE 1 EVERY DAY EVERY DAY SPRAY IN EACH NOSTRIL EVERY DAY hyoscyamine hyoscyamine No hyoscyamin [place] sulfate sulfate e sulfate Comm uni 0.125 mg 0.125 mg 0.125 mg ty tablet TAKE tablet TAKE tablet [facility]osp[facility] 1 TABLET BY 1 TABLET BY TAKE 1 l MOUTH EVERY MOUTH EVERY TABLET BY Clinics 8 HOURS 8 HOURS MOUTH EVERY 8 HOURS levothyroxi levothyroxi No levothyrox [place] ne 25 mcg ne 25 mcg ine 25 mcg [facility] tablet TAKE tablet TAKE tablet ty 1 TABLET BY 1 TABLET BY TAKE 1 [facility]ospita MOUTH EVERY MOUTH EVERY TABLET BY l DAY DAY MOUTH Clinics EVERY DAY meclizine meclizine No 1 TID meclizine [place] 25 mg 25 mg 25 mg [facility] tablet Take tablet Take tablet ty 1 tablet 3 1 tablet 3 Take 1 H [facility] times a day times a day tablet 3 l by oral by oral times a Clinic s route as route as day by needed. needed. oral route as needed. ondansetron ondansetron No ondansetro [place] 4 mg 4 mg n 4 mg [facility] disintegrat disintegrat disintegra ty ing tablet ing tablet ting [facility] DISSOLVE 1 DISSOLVE 1 tablet l TO 2 TO 2 DISSOLVE 1 Clinics TABLETS TABLETS TO 2 UNDER THE UNDER THE TABLETS TONGUE TONGUE UNDER THE EVERY 6 EVERY 6 TONGUE HOURS FOR 5 HOURS FOR 5 EVERY 6 DAYS DAYS HOURS FOR NEEDED FOR NEEDED FOR 5 DAYS NAUSEA NAUSEA NEEDED FOR NAUSEA Xanax 0.25 Xanax 0.25 No 1 BID Xanax 0.25 [place] mg tablet mg tablet mg tablet [facility] Take 1 Take 1 Take 1 ty tablet tablet tablet [facility]osp[facility] twice a day twice a day twice a l by oral by oral day by Clinics route for route for oral route 14 days. 14 days. for 14 days. azelastine azelastine No azelastine [place] 205.5 mcg 205.5 mcg 205.5 mcg [facility] (0.15 %) (0.15 %) (0.15 %) ty nasal spray nasal spray nasal [facility]osp[facility] USE 1 SPRAY USE 1 SPRAY spray USE l IN EACH IN EACH 1 SPRAY IN Cli nics NOSTRIL NOSTRIL EACH TWICE DAILY TWICE DAILY NOSTRIL TWICE DAILY buspirone 5 buspirone 5 No 1 BID buspirone [place] mg tablet mg tablet 5 mg Commu ni Take 1 Take 1 tablet ty tablet tablet Take 1 Hospita twice a day twice a day tablet l by oral by oral twice a Clinic s route for route for day by 30 days. 30 days. oral route for 30 days. dicyclomine dicyclomine No dicyclomin [place] 20 mg 20 mg e 20 mg [facility] tablet TAKE tablet TAKE tablet ty 1 TABLET BY 1 TABLET BY TAKE 1 Hospita MOUTH EVERY MOUTH EVERY TABLET BY l 6 HOURS FOR 6 HOURS FOR MOUTH Clinics 7 DAYS 7 DAYS EVERY 6 NEEDED NEEDED HOURS FOR ABDOMINAL ABDOMINAL 7 DAYS CRAMPS OR CRAMPS OR NEEDED DISCOMFORT DISCOMFORT ABDOMINAL CRAMPS OR DISCOMFORT estradiol estradiol No estradiol [place] 0.01% (0.1 0.01% (0.1 0.01% (0.1 [facility] mg/gram) mg/gram) mg/gram) ty vaginal vaginal vaginal Hospit a cream cream cream l INSERT 1 INSERT 1 INSERT 1 Cli nics GRAM INTO GRAM INTO GRAM INTO VAGINA VAGINA VAGINA TWICE A TWICE A TWICE A WEEK AT WEEK AT WEEK AT NIGHT. NIGHT. NIGHT. famotidine famotidine No famotidine [place] 20 mg 20 mg 20 mg [facility] tablet TAKE tablet TAKE tablet ty 1 TABLET BY 1 TABLET BY TAKE 1 [facility]ospita MOUTH EVERY MOUTH EVERY TABLET BY l 12 HOURS 12 HOURS MOUTH Clinic s EVERY 12 HOURS fluticasone fluticasone No fluticason [place] propionate propionate e Com ricci 50 50 propionate ty mcg/actuati mcg/actuati 50 [facility]sp[facility] on nasal on nasal mcg/actuat l spray,suspe spray,suspe ion nasal Clinics nsion SHAKE nsion SHAKE spray,susp LIQUID AND LIQUID AND ension USE 1 SPRAY USE 1 SPRAY SHAKE IN EACH IN EACH LIQUID AND NOSTRIL NOSTRIL USE 1 EVERY DAY EVERY DAY SPRAY IN EACH NOSTRIL EVERY DAY hyoscyamine hyoscyamine No hyoscyamin [place] sulfate sulfate e sulfate Comm uni 0.125 mg 0.125 mg 0.125 mg ty tablet TAKE tablet TAKE tablet [facility]osp[facility] 1 TABLET BY 1 TABLET BY TAKE 1 l MOUTH EVERY MOUTH EVERY TABLET BY Clinics 8 HOURS 8 HOURS MOUTH EVERY 8 HOURS Vital Signs Vital Name Observation Time Observation Value Comments Source BP Diastolic 2022-08-12 00:00:00 88 mm[Hg] [facility] Height 2022-08-12 00:00:00 63 [in_i] [facility] BMI (Body Mass 2022-08-12 00:00:00 36.1 kg/m2 [facility] BP Systolic 2022-08-12 00:00:00 122 mm[Hg] [facility] Body Weight 2022-08-12 00:00:00 3260.8 [oz_av] [facility] s BP Diastolic 2022-07-18 00:00:00 81 mm[Hg] [facility] s Height 2022-07-18 00:00:00 63 [in_i] [facility] s BMI (Body Mass 2022-07-18 00:00:00 35.5 kg/m2 [facility] s BP Systolic 2022-07-18 00:00:00 143 mm[Hg] [facility] Body Weight 2022-07-18 00:00:00 3206.4 [oz_av] [facility] s BP Diastolic 2022-07-08 00:00:00 79 mm[Hg] [facility] s Height 2022-07-08 00:00:00 63 [in_i] [facility] BMI (Body Mass 2022-07-08 00:00:00 36.2 kg/m2 [facility] s BP Systolic 2022-07-08 00:00:00 119 mm[Hg] [facility] Body Weight 2022-07-08 00:00:00 3267.2 [oz_av] [facility] BP Diastolic 2022-03-27 00:00:00 85 mm[Hg] [facility] Height 2022-03-27 00:00:00 63 [in_i] [facility] s BMI (Body Mass 2022-03-27 00:00:00 34.8 kg/m2 [facility] s BP Systolic 2022-03-27 00:00:00 153 mm[Hg] [facility] Body Weight 2022-03-27 00:00:00 3139.2 [oz_av] [facility] BP Diastolic 2022-02-24 00:00:00 77 mm[Hg] [facility] Height 2022-02-24 00:00:00 63 [in_i] [facility] BMI (Body Mass 2022-02-24 00:00:00 34.8 kg/m2 [facility] s BP Systolic 2022-02-24 00:00:00 143 mm[Hg] [facility] Body Weight 2022-02-24 00:00:00 3139.2 [oz_av] [facility] BP Diastolic 2022-01-23 00:00:00 80 mm[Hg] [facility] Height 2022-01-23 00:00:00 63 [in_i] [facility] BMI (Body Mass 2022-01-23 00:00:00 34.2 kg/m2 [facility] s BP Systolic 2022-01-23 00:00:00 145 mm[Hg] [facility] Body Weight 2022-01-23 00:00:00 3088 [oz_av] [facility] s BP Diastolic 2021-12-18 00:00:00 74 mm[Hg] [facility] Height 2021-12-18 00:00:00 63 [in_i] [facility] s BMI (Body Mass 2021-12-18 00:00:00 34.7 kg/m2 [facility] s BP Systolic 2021-12-18 00:00:00 139 mm[Hg] [facility] Body Weight 2021-12-18 00:00:00 3136 [oz_av] [facility] s BP Diastolic 2021-11-08 00:00:00 71 mm[Hg] [facility] s Height 2021-11-08 00:00:00 63 [in_i] [facility] s BMI (Body Mass 2021-11-08 00:00:00 35.3 kg/m2 [facility] s BP Systolic 2021-11-08 00:00:00 140 mm[Hg] [facility] Body Weight 2021-11-08 00:00:00 3187.2 [oz_av] [facility] s BP Diastolic 2021-10-21 00:00:00 74 mm[Hg] [facility] s Height 2021-10-21 00:00:00 63 [in_i] [facility] s BMI (Body Mass 2021-10-21 00:00:00 35.3 kg/m2 [facility] s BP Systolic 2021-10-21 00:00:00 147 mm[Hg] [facility] Body Weight 2021-10-21 00:00:00 3184 [oz_av] [facility] s BP Diastolic 2021-09-20 00:00:00 71 mm[Hg] [facility] s Height 2021-09-20 00:00:00 63 [in_i] [facility] s BMI (Body Mass 2021-09-20 00:00:00 34.7 kg/m2 [facility] s BP Systolic 2021-09-20 00:00:00 128 mm[Hg] [facility] Body Weight 2021-09-20 00:00:00 3137 [oz_av] [facility] s BP Diastolic 2021-07-31 00:00:00 90 mm[Hg] [facility] s Height 2021-07-31 00:00:00 63 [in_i] [facility] s BMI (Body Mass 2021-07-31 00:00:00 34.9 kg/m2 [facility] s BP Systolic 2021-07-31 00:00:00 123 mm[Hg] [facility] Body Weight 2021-07-31 00:00:00 3153.6 [oz_av] [facility] s BP Diastolic 2021-07-23 00:00:00 85 mm[Hg] [facility] s Height 2021-07-23 00:00:00 63 [in_i] [facility] BMI (Body Mass 2021-07-23 00:00:00 35.6 kg/m2 [facility]) [facility] s BP Systolic 2021-07-23 00:00:00 151 mm[Hg] [facility] Body Weight 2021-07-23 00:00:00 3216 [oz_av] [facility] s BP Diastolic 2021-06-24 00:00:00 81 mm[Hg] [facility] Height 2021-06-24 00:00:00 63 [in_i] [facility] BMI (Body Mass 2021-06-24 00:00:00 36.8 kg/m2 [facility]) [facility] s BP Systolic 2021-06-24 00:00:00 138 mm[Hg] [facility] Body Weight 2021-06-24 00:00:00 3328 [oz_av] [facility] BP Diastolic 2021-05-30 00:00:00 84 mm[Hg] [facility] Height 2021-05-30 00:00:00 63 [in_i] [facility] BMI (Body Mass 2021-05-30 00:00:00 36.5 kg/m2 [facility]) [facility] s BP Systolic 2021-05-30 00:00:00 144 mm[Hg] [facility] Body Weight 2021-05-30 00:00:00 3296 [oz_av] [facility] s BP Diastolic 2021-04-09 00:00:00 68 mm[Hg] [facility] Height 2021-04-09 00:00:00 63 [in_i] [facility] BMI (Body Mass 2021-04-09 00:00:00 34.4 kg/m2 [facility]) [facility] s BP Systolic 2021-04-09 00:00:00 143 mm[Hg] [facility] Body Weight 2021-04-09 00:00:00 3107.2 [oz_av] [facility] s BP Diastolic 2021-03-14 00:00:00 80 mm[Hg] [facility] Height 2021-03-14 00:00:00 63 [in_i] [facility] BMI (Body Mass 2021-03-14 00:00:00 34.9 kg/m2 [facility] BP Systolic 2021-03-14 00:00:00 145 mm[Hg] [facility] Body Weight 2021-03-14 00:00:00 3155.2 [oz_av] [facility] BP Diastolic 2021-03-04 00:00:00 76 mm[Hg] [facility] Height 2021-03-04 00:00:00 63 [in_i] [facility] BMI (Body Mass 2021-03-04 00:00:00 36.2 kg/m2 [facility]) [facility] s BP Systolic 2021-03-04 00:00:00 139 mm[Hg] [facility] Body Weight 2021-03-04 00:00:00 3270.4 [oz_av] [facility] s BP Diastolic 2021-02-25 00:00:00 71 mm[Hg] [facility] Height 2021-02-25 00:00:00 63 [in_i] [facility] BMI (Body Mass 2021-02-25 00:00:00 36.5 kg/m2 [facility] s BP Systolic 2021-02-25 00:00:00 131 mm[Hg] [facility] Body Weight 2021-02-25 00:00:00 3292.8 [oz_av] [facility] s BP Diastolic 2021-01-14 00:00:00 85 mm[Hg] [facility] Height 2021-01-14 00:00:00 63 [in_i] [facility] BMI (Body Mass 2021-01-14 00:00:00 35.3 kg/m2 [facility] s BP Systolic 2021-01-14 00:00:00 137 mm[Hg] [facility] Body Weight 2021-01-14 00:00:00 3184 [oz_av] [facility] s BP Diastolic 2020-10-16 00:00:00 61 mm[Hg] [facility] Height 2020-10-16 00:00:00 63 [in_i] [facility] BMI (Body Mass 2020-10-16 00:00:00 34.4 kg/m2 [facility]) [facility] s BP Systolic 2020-10-16 00:00:00 120 mm[Hg] [facility] Body Weight 2020-10-16 00:00:00 3104 [oz_av] [facility] BP Diastolic 2020-09-28 00:00:00 86 mm[Hg] [facility] Height 2020-09-28 00:00:00 63 [in_i] [facility] BMI (Body Mass 2020-09-28 00:00:00 33.9 kg/m2 [facility]) [facility] s BP Systolic 2020-09-28 00:00:00 129 mm[Hg] [facility] Body Weight 2020-09-28 00:00:00 3062.4 [oz_av] [facility] s BP Diastolic 2020-08-20 00:00:00 79 mm[Hg] [facility] Height 2020-08-20 00:00:00 63 [in_i] [facility] BMI (Body Mass 2020-08-20 00:00:00 33 kg/m2 [facility]) [facility] s BP Systolic 2020-08-20 00:00:00 142 mm[Hg] [facility] Body Weight 2020-08-20 00:00:00 2979.2 [oz_av] [facility] s BP Diastolic 2020-08-13 00:00:00 93 mm[Hg] [facility] Height 2020-08-13 00:00:00 63 [in_i] [facility] BMI (Body Mass 2020-08-13 00:00:00 33.2 kg/m2 [facility]) [facility] s BP Systolic 2020-08-13 00:00:00 149 mm[Hg] [facility] Body Weight 2020-08-13 00:00:00 3001.6 [oz_av] [facility] s BP Diastolic 2020-07-26 00:00:00 74 mm[Hg] [facility] Height 2020-07-26 00:00:00 63 [in_i] [facility] BMI (Body Mass 2020-07-26 00:00:00 32.7 kg/m2 [facility]) [facility] s BP Systolic 2020-07-26 00:00:00 133 mm[Hg] [facility] Body Weight 2020-07-26 00:00:00 2956.8 [oz_av] [facility] s Procedures Procedure Date / Time Performing Clinician Source Performed CT, head, w/o contrast 2022-02-24 00:00:00 [facility] URINE CULTURE 2021-09-23 00:00:00 Provider, Not In [facility] POC URINALYSIS DIPSTICK 2021-08-21 19:36:[address] [facility] [id number] 2021-08-21 19:36:00 Emily Vazquez spital [facility] Carpal Tunnel Surgery [facility] Cholecystectomy [facility] Tubal Ligation [facility] Plan of Care Planned Activity Planned Date Details Comments Source Future Scheduled Test 2022-07-04 Hepatitis C screening [facility] 13:42:03 (procedure) [code = 738158515] Future Scheduled Test 2022-07-04 Screening for [facility] 13:42:03 malignant neoplasm of cervix (procedure) [code = 402928508] Future Scheduled Test 2022-07-04 BREAST CANCER [facility] 13:42:03 SCREENING [code = BREAST CANCER SCREENING] Future Scheduled Test 2022-07-04 COLONOSCOPY SCREENING [facility] 13:42:03 [code = COLONOSCOPY SCREENING] Future Scheduled Test 2022-07-04 SHINGLES VACCINES (1 [facility] 13:42:03 of 2) [code = SHINGLES VACCINES (1 of 2)] Future Scheduled Test 2022-07-04 65+ PNEUMOCOCCAL [facility] 13:42:03 VACCINE (1 - PCV) [code = 65+ PNEUMOCOCCAL VACCINE (1 - PCV)] Future Scheduled Test 2022-07-04 INFLUENZA VACCINE [facility] 13:42:03 [code = INFLUENZA VACCINE] Future Scheduled Test 2022-07-04 Hepatitis C screening [facility] 13:42:03 (procedure) [code = 875895233] Future Scheduled Test 2022-07-04 Screening for [facility] 13:42:03 malignant neoplasm of cervix (procedure) [code = 827495816] Future Scheduled Test 2022-07-04 BREAST CANCER [facility] 13:42:03 SCREENING [code = BREAST CANCER SCREENING] Future Scheduled Test 2022-07-04 COLONOSCOPY SCREENING [facility] 13:42:03 [code = COLONOSCOPY SCREENING] Future Scheduled Test 2022-07-04 SHINGLES VACCINES (1 [facility] 13:42:03 of 2) [code = SHINGLES VACCINES (1 of 2)] Future Scheduled Test 2022-07-04 65+ PNEUMOCOCCAL [facility] 13:42:03 VACCINE (1 - PCV) [code = 65+ PNEUMOCOCCAL VACCINE (1 - PCV)] Future Scheduled Test 2022-07-04 INFLUENZA VACCINE [facility] 13:42:03 [code = INFLUENZA VACCINE] Future Scheduled Test 2022-07-04 Hepatitis C screening [facility] 13:42:03 (procedure) [code = 996935483] Future Scheduled Test 2022-07-04 Screening for [facility] 13:42:03 malignant neoplasm of cervix (procedure) [code = 544730560] Future Scheduled Test 2022-07-04 BREAST CANCER [facility] 13:42:03 SCREENING [code = BREAST CANCER SCREENING] Future Scheduled Test 2022-07-04 COLONOSCOPY SCREENING [facility] 13:42:03 [code = COLONOSCOPY SCREENING] Future Scheduled Test 2022-07-04 SHINGLES VACCINES (1 [facility] 13:42:03 of 2) [code = SHINGLES VACCINES (1 of 2)] Future Scheduled Test 2022-07-04 65+ PNEUMOCOCCAL [facility] 13:42:03 VACCINE (1 - PCV) [code = 65+ PNEUMOCOCCAL VACCINE (1 - PCV)] Future Scheduled Test 2022-07-04 INFLUENZA VACCINE [facility] 13:42:03 [code = INFLUENZA VACCINE] Future Scheduled Test 2022-05-22 Hepatitis C screening [facility] 16:12:20 (procedure) [code = 211799725] Future Scheduled Test 2022-05-22 Screening for [facility] 16:12:20 malignant neoplasm of cervix (procedure) [code = 258628916] Future Scheduled Test 2022-05-22 BREAST CANCER [facility] 16:12:20 SCREENING [code = BREAST CANCER SCREENING] Future Scheduled Test 2022-05-22 COLONOSCOPY SCREENING [facility] 16:12:20 [code = COLONOSCOPY SCREENING] Future Scheduled Test 2022-05-22 SHINGLES VACCINES (1 [facility] 16:12:20 of 2) [code = SHINGLES VACCINES (1 of 2)] Future Scheduled Test 2022-05-22 65+ PNEUMOCOCCAL [facility] 16:12:20 VACCINE (1 - PCV) [code = 65+ PNEUMOCOCCAL VACCINE (1 - PCV)] Future Scheduled Test 2022-05-22 INFLUENZA VACCINE [facility] 16:12:20 [code = INFLUENZA VACCINE] Diagnostic Test 2022-03-27 rapid SARS CoV 2 Ag, [facility] Pending 00:00:00 QL IA, respiratory Hospital Clinics specimen [code = rapid SARS CoV 2 Ag, QL IA, respiratory specimen] Diagnostic Test 2022-03-27 rapid flu (A+B) [code [facility] Pending 00:00:00 = rapid flu (A+B)] Hospital Clinics Diagnostic Test 2022-03-27 urinalysis, dipstick [facility] Pending 00:00:00 [code = urinalysis, Hospital Clinics dipstick] Future Scheduled Test 2022-02-04 HEPATITIS B VACCINES [facility] 13:45:17 (1 of 3 - 3-dose series) [code = HEPATITIS B VACCINES (1 of 3 - 3-dose series)] Future Scheduled Test 2022-02-04 Hepatitis C screening [facility] 13:45:17 (procedure) [code = 363454000] Future Scheduled Test 2022-02-04 Screening for [facility] 13:45:17 malignant neoplasm of cervix (procedure) [code = 148062368] Future Scheduled Test 2022-02-04 BREAST CANCER [facility] 13:45:17 SCREENING [code = BREAST CANCER SCREENING] Future Scheduled Test 2022-02-04 COLONOSCOPY SCREENING [facility] 13:45:17 [code = COLONOSCOPY SCREENING] Future Scheduled Test 2022-02-04 SHINGLES VACCINES (1 [facility] 13:45:17 of 2) [code = SHINGLES VACCINES (1 of 2)] Future Scheduled Test 2022-02-04 65+ PNEUMOCOCCAL [facility] 13:45:17 VACCINE (1 - PCV) [code = 65+ PNEUMOCOCCAL VACCINE (1 - PCV)] Future Scheduled Test 2022-02-04 INFLUENZA VACCINE [facility] 13:45:17 [code = INFLUENZA VACCINE] Future Scheduled Test 2022-02-04 HEPATITIS B VACCINES [facility] 13:45:17 (1 of 3 - 3-dose series) [code = HEPATITIS B VACCINES (1 of 3 - 3-dose series)] Future Scheduled Test 2022-02-04 Hepatitis C screening [facility] 13:45:17 (procedure) [code = 151159038] Future Scheduled Test 2022-02-04 Screening for [facility] 13:45:17 malignant neoplasm of cervix (procedure) [code = 657598668] Future Scheduled Test 2022-02-04 BREAST CANCER [facility] 13:45:17 SCREENING [code = BREAST CANCER SCREENING] Future Scheduled Test 2022-02-04 COLONOSCOPY SCREENING [facility] 13:45:17 [code = COLONOSCOPY SCREENING] Future Scheduled Test 2022-02-04 SHINGLES VACCINES (1 [facility] 13:45:17 of 2) [code = SHINGLES VACCINES (1 of 2)] Future Scheduled Test 2022-02-04 65+ PNEUMOCOCCAL [facility] 13:45:17 VACCINE (1 - PCV) [code = 65+ PNEUMOCOCCAL VACCINE (1 - PCV)] Future Scheduled Test 2022-02-04 INFLUENZA VACCINE [facility] 13:45:17 [code = INFLUENZA VACCINE] Future Scheduled Test 2022-01-03 HEPATITIS B VACCINES [facility] 14:11:23 (1 of 3 - 3-dose series) [code = HEPATITIS B VACCINES (1 of 3 - 3-dose series)] Future Scheduled Test 2022-01-03 Hepatitis C screening [facility] 14:11:23 (procedure) [code = 449312694] Future Scheduled Test 2022-01-03 Screening for [facility] 14:11:23 malignant neoplasm of cervix (procedure) [code = 979087488] Future Scheduled Test 2022-01-03 BREAST CANCER [facility] 14:11:23 SCREENING [code = BREAST CANCER SCREENING] Future Scheduled Test 2022-01-03 COLONOSCOPY SCREENING [facility] 14:11:23 [code = COLONOSCOPY SCREENING] Future Scheduled Test 2022-01-03 SHINGLES VACCINES (1 [facility] 14:11:23 of 2) [code = SHINGLES VACCINES (1 of 2)] Future Scheduled Test 2022-01-03 65+ PNEUMOCOCCAL [facility] 14:11:23 VACCINE (1 - PCV) [code = 65+ PNEUMOCOCCAL VACCINE (1 - PCV)] Future Scheduled Test 2022-01-03 INFLUENZA VACCINE [facility] 14:11:23 [code = INFLUENZA VACCINE] Future Scheduled Test 2022-01-03 HEPATITIS B VACCINES [facility] 14:11:23 (1 of 3 - 3-dose series) [code = HEPATITIS B VACCINES (1 of 3 - 3-dose series)] Future Scheduled Test 2022-01-03 Hepatitis C screening [facility] 14:11:23 (procedure) [code = 957767670] Future Scheduled Test 2022-01-03 Screening for [facility] 14:11:23 malignant neoplasm of cervix (procedure) [code = 399869718] Future Scheduled Test 2022-01-03 BREAST CANCER [facility] 14:11:23 SCREENING [code = BREAST CANCER SCREENING] Future Scheduled Test 2022-01-03 COLONOSCOPY SCREENING [facility] 14:11:23 [code = COLONOSCOPY SCREENING] Future Scheduled Test 2022-01-03 SHINGLES VACCINES (1 [facility] 14:11:23 of 2) [code = SHINGLES VACCINES (1 of 2)] Future Scheduled Test 2022-01-03 65+ PNEUMOCOCCAL [facility] 14:11:23 VACCINE (1 - PCV) [code = 65+ PNEUMOCOCCAL VACCINE (1 - PCV)] Future Scheduled Test 2022-01-03 INFLUENZA VACCINE [facility] 14:11:23 [code = INFLUENZA VACCINE] Future Scheduled Test 2021-11-28 HEPATITIS B VACCINES [facility] 00:25:38 (1 of 3 - 3-dose series) [code = HEPATITIS B VACCINES (1 of 3 - 3-dose series)] Future Scheduled Test 2021-11-28 Hepatitis C screening [facility] 00:25:38 (procedure) [code = 299593164] Future Scheduled Test 2021-11-28 Screening for [facility] 00:25:38 malignant neoplasm of cervix (procedure) [code = 423515687] Future Scheduled Test 2021-11-28 BREAST CANCER [facility] 00:25:38 SCREENING [code = BREAST CANCER SCREENING] Future Scheduled Test 2021-11-28 COLONOSCOPY SCREENING [facility] 00:25:38 [code = COLONOSCOPY SCREENING] Future Scheduled Test 2021-11-28 SHINGLES VACCINES (1 [facility] 00:25:38 of 2) [code = SHINGLES VACCINES (1 of 2)] Future Scheduled Test 2021-11-28 65+ PNEUMOCOCCAL [facility] 00:25:38 VACCINE (1 - PCV) [code = 65+ PNEUMOCOCCAL VACCINE (1 - PCV)] Future Scheduled Test 2021-11-28 INFLUENZA VACCINE [facility] 00:25:38 [code = INFLUENZA VACCINE] Future Scheduled Test 2021-11-28 HEPATITIS B VACCINES [facility] 00:25:38 (1 of 3 - 3-dose series) [code = HEPATITIS B VACCINES (1 of 3 - 3-dose series)] Future Scheduled Test 2021-11-28 Hepatitis C screening [facility] 00:25:38 (procedure) [code = 447445091] Future Scheduled Test 2021-11-28 Screening for [facility] 00:25:38 malignant neoplasm of cervix (procedure) [code = 273167318] Future Scheduled Test 2021-11-28 BREAST CANCER [facility] 00:25:38 SCREENING [code = BREAST CANCER SCREENING] Future Scheduled Test 2021-11-28 COLONOSCOPY SCREENING [facility] 00:25:38 [code = COLONOSCOPY SCREENING] Future Scheduled Test 2021-11-28 SHINGLES VACCINES (1 [facility] 00:25:38 of 2) [code = SHINGLES VACCINES (1 of 2)] Future Scheduled Test 2021-11-28 65+ PNEUMOCOCCAL [facility] 00:25:38 VACCINE (1 - PCV) [code = 65+ PNEUMOCOCCAL VACCINE (1 - PCV)] Future Scheduled Test 2021-11-28 INFLUENZA VACCINE [facility] 00:25:38 [code = INFLUENZA VACCINE] Instructions [place] [facility] Encounters Start End Encounter Admission Attending Care Care Encounter Source Date/Time Date/Time Type Type Clinicians Facility Department ID 2021-11-07 Outpatient [facility] [id number] [place] 01:[place]:34 [id number] [facility] 2021-10-07 Outpatient [facility] [id number] [place] 12:39:58 [id number] [facility] 2021-07-05 Outpatient [facility] [id number] [place] 01:03:47 LUCIEN [id number] [facility] 2022-08-12 2022-08-12 [place] [place] 00:[place]00 00:00:00 [facility] Hospital - ty C: [address] [facility], CL[address]IC [address] [place] [phone] , Ph. 2022-08-04 2022-08-04 [facility] [id number] [place] 00:00:00 00:00:00 0516 [facility] 2022-07-21 2022-07-21 [facility] [id number] [place] 00:00:00 00:00:00 0424 [facility] 2022-07-18 2022-07-18 [facility] [place] 00:00[place]00 00:00:00 [facility] Hospital - ty C: [address] [facility], CL[address]IC [address] [place] [phone] , Ph. 2022-07-08 2022-07-08 Outpatient [facility] [id number] [place] 00:00:00 00:00:00 0411 [facility] i ty [facility] 2022-07-08 2022-07-08 Outpatient [facility] [id number] [place] 00:00:00 00:00:00 0421 [facility] 2022-07-08 2022-07-08 [facility] [place] 11 [place] 00:00:00 00:00:00 Julianne Block APRN-FRAME CLEANER- Hospital - ty C: [address] [facility], CL[address], [place] [address] , Ph. 2022-06-09 2022-06-09 Outpatient [facility] [id number] [place] 00:00:00 00:00:00 0313 [facility] 2022-04-11 2022-04-11 Outpatient [facility] [id number] [place] 00:00:00 00:00:00 0120 [facility] 2022-03-27 2022-03-27 Outpatient [facility] [id number] [place] 00:00:00 00:00:00 1229 [facility] 2022-03-27 2022-03-27 Emily [facility] [place] [id number] [place] 00:00:00 00:00:00 Julianne Longoria APRN, MSN, Hospital - ty [facility]-: [address], CL[address]IC [address], [place] [address] , Ph. 2022-03-26 2022-03-26 Outpatient [facility] [id number] [place] 00:00:00 00:00:00 1228 [facility] 2022-02-24 2022-02-24 Outpatient [facility] [id number] [place] 00:00:00 00:00:00 1128 [facility] 2022-02-24 2022-02-24 [facility] [place] [id number] [place] 00:00:00 00:00:00 Umair [facility] mmuni JEWEL HOLE FINISH OPENER-FRAME CLEANER-B Hospital - ty C: [address] [facility], [address], [place] [address] , Ph. 2022-02-23 2022-02-23 Outpatient [facility]IS[facility] [id number] [place] 00:00:00 00:00:00 [address] 2022-02-06 2022-02-06 Outpatient [facility] [id number] [place] 00:00:00 00:00:00 1110 [facility] 2022-01-23 2022-01-23 Outpatient [facility] [id number] [place] 00:00:00 00:00:00 1027 Commun i ty Hospita l Clinics 2022-01-23 2022-01-23 [facility] [place] 00:00:00 00:00:00 John, [facility] MSN, JEWEL HOLE FINISH OPENER, Hospital - ty FRAME CLEANER-C: [address] [place] [facility], Clinic s [address], [facility] [address], Mamta Lopez, JOVANY MSN, FRAME CLEANER-C [phone] , Ph. 2022-01-15 2022-01-15 Outpatient [facility] [id number] [place] 00:00:00 00:00:00 [address] 2022-01-03 2022-01-03 Telephone Nick Vazquez.2.840.1 [id number] Methodi 00:00:00 00:00:00 Emily [id number] [address] [facility] 3.430.2.7 Hosp bandar .3.175281 l .8 2022-01-03 2022-01-03 Alvarez Smart2.840.1 [id number] Methodi 00:00:00 00:00:00 Emily 14197.1.1 769 [facility] 3.430.2.7 Hosp bandar .[id number] l .8 2022-01-02 2022-01-02 Outpatient [facility] [id number] [place] 00:00:00 00:00:00 [address] 2021-12-30 2021-12-31 Inpatient CHICO Arauz, [facility].01 [id number] [facility] 12:08:00 09:39:00 Elvia 07 [facility] 2021-12-18 2021-12-18 Outpatient [facility] [id number] [place] 00:00:00 00:00:00 [address] 2021-12-18 2021-12-18 [facility] [place] 00:00:00 00:00:00 John [facility] uni MSN, JEWEL HOLE FINISH OPENER, Hospital - ty FRAME CLEANER-C: [address] [place] [facility], Clinic s [address], [facility] [address], Mamta Lopez [place] MSN, FRAME CLEANER-C [address] , Ph. 2021-12-12 2021-12-12 [facility] [id number] [place] 00:00:00 00:00:00 [address] 2021-12-12 2021-12-12 Outpatient JohnRUST [id number] 00:00:00 00:00:00 Willy [id number] 2021-12-12 2021-12-12 [facility] [place] 00:00:00 00:00:00 John, [facility] uni MSN, JEWEL HOLE FINISH OPENER, Hospital - ty FRAME CLEANER-C: [address] [place] [facility] [address], [facility] [address], [place] MSN, [facility] [address] , Ph. 2021-12-10 2021-12-10 Outpatient [facility]C [facility] [id number] [place] 00:00:00 00:00:00 0913 [facility]osp[facility] Clinics 2021-11-11 2021-11-11 Outpatient CHRETIEN_F [facility] [id number] [place] 00:00:00 00:00:00 0815 Commun i ty Hospita [facility] Clinics 2021-11-08 2021-11-08 Outpatient CHRETIEN_F [facility] [id number] [place] 00:00:00 00:00:00 0812 Commun i ty Hospita [facility] Clinics 2021-11-08 2021-11-08 Outpatient VonEmily [facility] [id number] 00:00:00 00:00:00 [id number] 2021-11-08 2021-11-08 Emily [facility] [place] 00:[place]:00 00:00:00 Julianne Longoria APRN, MSN, [facility]: [address], [facility] [address], [place] [address] , Ph. 2021-10-22 2021-10-22 Outpatient CHRETIEN_F [facility] [id number] [place] 10:01:00 10:01:00 0726 [facility] 2021-10-21 2021-10-21 Outpatient [facility] 139 [id number] [place] 10:15:00 10:15:00 MATTHEW Escamilla 2021-10-21 2021-10-21 Outpatient CHRETIEN_F [facility] [id number] [place] 06:03:00 06:03:00 0725 [facility] 2021-10-21 2021-10-21 Outpatient Chretien, [facility] [id number] 00:00:00 00:00:00 Kaitlin [id number] 2021-10-21 2021-10-21 Kaitlin [facility] [place] 00:00:00 00:00:00 Umair [facility] mmuni JEWEL HOLE FINISH OPENER-FRAME CLEANER-B Hospital - C: [address] [facility], [address], [place] [address] , Ph. 2021-10-14 2021-10-14 [facility] 07:36:00 14:00:00 [place] 2021-10-14 2021-10-14 Outpatient SHIVA [facility] [id number] [place] 09:00:00 09:00:00 [facility] 2021-10-11 2021-10-11 Outpatient LEVI_JEMAL HODGE [facility] [id number] [place] 10:21:00 10:21:00 SSA 0715 da [facility] 2021-10-08 2021-10-08 Outpatient WATERS_S [facility] 2021 [place] 03:10:00 03:10:00 0712 [facility] 2021-09-23 2021-09-23 Orders Provider, 1.2.840.1 [id number] 2099 [id number] Methodi 00:00:00 00:00:00 [place] [address].1.[address] System 3.430.2.7 Hospit a .3.083619 l .8 2021-09-23 2021-09-23 Telephone Lord, 1.2.840.1 [id number] 2099 [id number] Methodi 00:00:00 00:00:[address] 3.430.2.7 Hospit a .3.449791 l .8 2021-09-23 2021-09-23 Orders Provider, 1.2.840.1 [id number] 2099 [id number] Methodi 00:00:00 00:00:00 [place] [address].1.[address] System 3.430.2.7 Hospit a .3.089766 l .8 2021-09-23 2021-09-23 Telephone Nick Lord.2.840.1 [id number] 2099 [id number] Methodi 00:00:00 00:00:[address] 3.430.2.7 Hospit a .3.113848 l .8 2021-09-20 2021-09-20 Outpatient WATERS_S [facility] [id number] [place] 12:16:00 12:16:00 623 [facility] 2021-09-20 2021-09-20 [facility] [place] 00:00:00 00:00:00 [facility] MSN, JEWEL HOLE FINISH OPENER, Hospital - ty FRAME CLEANER-C: [address] [place] [facility], [facility] s [address], [facility] [address], [place], [place] MSN, FRAME CLEANER-C [address] , Ph. 2021-09-20 2021-09-20 Outpatient John [facility] [id number] 00:00:00 00:00:00 Willy [id number] 2021-09-11 2021-09-11 Orders Nick Vazquez.2.840.1 [id number] 2099 [id number] Methodi 00:00:00 00:00:00 Only Emily 94888.1.[address] [facility] 3.430.2.7 Hosp bandar .3.356253 l .8 2021-09-11 2021-09-11 Orders Nick Vazquez.2.840.1 [id number] 2099 [id number] Methodi 00:00:00 00:00:00 Only Emily 84231.1.[address] [facility] 3.430.2.7 Hosp bandar .3.299067 l .8 2021-09-09 2021-09-09 Telephone Alvarez Vazquez2.840.1 [id number] 21 [id number] Methodi 00:00:00 00:00:[address] [facility] 3.430.2.7 Hosp bandar .3.564884 l .8 2021-09-09 2021-09-09 Telephone George, 1.2.840.1 [id number] 21 [id number] Methodi 00:00:00 00:00:[address] [facility] 3.430.2.7 Hosp bandar .3.303904 l .8 2021-09-03 2021-09-03 Outpatient WATERS_S [facility] [id number] [place] 01:31:00 01:31:00 0607 [facility] 2021-08-21 2021-08-21 Office George, 1.2.840.1 [id number] 2100 [id number] Methodi 14:45:00 15:41:16 Visit Emily 72693.1.[address] [facility] 3.430.2.7 Hosp bandar .3.547305 l .8 2021-08-21 2021-08-21 Office George, 1.2.840.1 [id number] 2100 [id number] Methodi 14:45:00 15:41:16 Visit Emily 76705.1.[address] [facility] 3.430.2.7 Hosp bandar .3.197289 l .8 2021-08-21 2021-08-21 Travel 1.2.840.1 1.2.960.476 3545 [id number] Methodi 00:00:00 00:00:[address] 3.430.2.7 0.2.7.3.698 Ho spita .3.325239 084.8 l .8 2021-08-21 2021-08-21 Travel 1.2.840.1 1.2.770.740 5042 [id number] Methodi 00:00:00 00:00:[address] 3.430.2.7 0.2.7.3.698 Ho spita .3.125820 084.8 l .8 2021-07-31 2021-07-31 Outpatient GISEL [facility] [id number] [place] 04:50:00 04:50:00 [address] 2021-07-31 2021-07-31 [facility] [place] 00:00:00 00:00:00 [facility] MSN, JEWEL HOLE FINISH OPENER, Hospital - ty FRAME CLEANER-C: [address] [place] [facility] [address], [place], [place], [place] MSN, FRAME CLEANER-C [address] , Ph. 2021-07-31 2021-07-31 Outpatient John [facility] [id number] 00:00:00 00:00:00 Willy [id number] 2021-07-26 2021-07-26 Outpatient FRANCISCONolan [facility] 2021 [place] 05:01:00 05:01:00 [address] 2021-07-26 2021-07-26 [facility] [place] 00:00:00 00:00:00 [facility] MSN, JEWEL HOLE FINISH OPENER, Hospital - ty FRAME CLEANER-C: [address] [place] [address] [address], [facility] [address], [place], [place] MSN, FRAME CLEANER-C [address] , Ph. 2021-07-26 2021-07-26 Outpatient John [facility] [id number] 00:00:00 00:00:00 Willy [id number] 2021-07-23 2021-07-23 Outpatient FRANCISCOS [facility] [id number] [place] 03:28:00 03:28:00 [address] 2021-07-23 2021-07-23 Kaitlin [facility] [place] 00:00:00 00:00:00 Umair [facility] mmuni JEWEL HOLE FINISH OPENER-FRAME CLEANER-B Hospital - ty C: [address] [facility], [facility] [address] [place] [address] , Ph. 2021-07-23 2021-07-23 Outpatient Umair [facility] [id number] 00:00:00 00:00:00 Kaitlin [id number] 2021-07-13 2021-07-13 Outpatient WATERS_S [facility] [id number] [place] 01:29:00 01:29:00 0416 [facility] Clinics 2021-06-24 2021-06-24 Outpatient WATERS_S [facility] [id number] [place] 06:06:00 06:06:00 0328 Commun i ty Hospita [facility] Clinics 2021-06-24 2021-06-24 [facility] [place] 00:00:00 00:00:00 [facility] uni JEWEL HOLE FINISH OPENER-PRECISION LENS POLISHER-C: Hospital - ty [address] [place] [address] [address], [place] [address] , Ph. 2021-06-24 2021-06-24 Outpatient FinnRUST [id number] 00:00:00 00:00:00 Roula [id number] 2021-05-30 2021-05-30 Outpatient WATERS_S [facility] [id number] [place] 04:28:00 04:28:00 0303 Commun i ty [facility]osp[facility] Clinics 2021-05-30 2021-05-30 [facility] [place] 00:00:00 00:00:00 [facility] uni JEWEL HOLE FINISH OPENER-PRECISION LENS POLISHER-C: Hospital - ty [address] [facility] [address], [place] [address] , Ph. 2021-05-30 2021-05-30 Outpatient Francisco [facility] [id number] 00:00:00 00:00:00 Roula [id number] 2021-04-26 2021-04-26 Outpatient WATERS_S [facility] [id number] [place] 04:02:00 04:02:00 0128 Commun i ty Hospita [facility] Clinics 2021-04-10 2021-04-10 Outpatient WATERS_S [facility] [id number] [place] 10:19:00 10:19:00 0112 Commun i ty Hospita [facility] Clinics 2021-04-09 2021-04-09 Outpatient WATERS_S [facility] [id number] [place] 02:44:00 02:44:00 0111 Commun i ty Hospita [facility] Clinics 2021-04-09 2021-04-09 [facility] [place] 00:00:00 00:00:00 [employer] [facility] uni JEWEL HOLE FINISH OPENER-PRECISION LENS POLISHER-C: Hospital - ty [address] [facility] [address], [place] [address] , Ph. 2021-04-09 2021-04-09 Outpatient Francisco [facility] [id number] 00:00:00 00:00:00 Roula [id number] 2021-04-05 2021-04-05 Outpatient SHIVA, [facility] [address] [facility] 10:06:00 23:59:00 LUCIEN 2021-03-14 2021-03-14 Outpatient WATERS_S [facility] [id number] [place] 11:37:00 11:37:00 1216 Commun i ty Hospita [facility] Clinics 2021-03-14 2021-03-14 [facility] [place] [id number] [place] 00:00:00 00:00:00 [facility] JEWEL HOLE FINISH OPENER-PRECISION LENS POLISHER-C: Hospital - ty [address] [facility] [address], [place] [address] , Ph. 2021-03-14 2021-03-14 Outpatient Finn, [facility] [id number] 00:00:00 00:00:00 [place]oul[place] [id number] 2021-03-04 2021-03-04 Outpatient WATERS_S [facility] [id number] [place] 02:40:00 02:40:00 1206 [facility] i [facility] 2021-03-04 2021-03-04 [facility] [place] [id number] [place] 00:00:00 00:00:00 [facility] JEWEL HOLE FINISH OPENER-PRECISION LENS POLISHER-C: Hospital - ty [address] [place] [address] [address], [place] [address] , Ph. 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 2021-02-25 2021-02-25 Outpatient Finn, [facility] [id number] 00:00:00 00:00:00 Roula [id number] 2021-01-14 2021-01-14 Outpatient WATERS_S [facility] [id number] [place] 05:43:00 05:43:00 1018 Commun i ty Hospita [facility] 2021-01-14 2021-01-14 Outpatient Finn, [facility] [id number] 00:00:00 00:00:00 [place]oul[place] [id number] 2021-01-14 2021-01-14 Outpatient Finn, [facility] [id number] c-[id number] 00:00:00 00:00:00 [place]oula [id number] 2021-01-14 2021-01-14 [facility] [place] 00:00:00 00:00:00 [facility] Comm uni JEWEL HOLE FINISH OPENER-PRECISION LENS POLISHER-C: Hospital - [address] [address] , Ph. 2020-10-16 2020-10-16 Outpatient WATERS_S [facility] [id number] [place] 02:24:00 02:24:00 0720 Commun i ty Hospita [facility] 2020-10-16 2020-10-16 Outpatient [facility] [id number] 00:00:00 00:00:00 [place]oula [id number] 2020-10-16 2020-10-16 [facility] [place] 20 [place] 00:00:00 00:00:00 [facility] Comm uni JEWEL HOLE FINISH OPENER-PRECISION LENS POLISHER-C: Hospital - ty [address] [place] [address] [address], [place] [address] , Ph. 2020-09-28 2020-09-28 Outpatient WATERS_S [facility] [id number] [place] 12:14:00 12:14:00 0702 Commun i ty Hospita Clinics 2020-09-28 2020-09-28 Outpatient FinnRUST [id number] 00:00:00 00:00:00 [place] [id number] 2020-09-28 2020-09-28 [place] [facility] [place] [id number] [place] 00:00:00 00:00:00 [facility]ISH[facility] Hospital - [place] [address], [place] [address] , Ph. 2020-09-28 2020-09-28 Outpatient [facility] [id number] 00:00:00 00:00:00 [place] [id number] 2020-08-30 2020-08-30 Outpatient WATERS_S [facility] [id number] [place] 05:28:00 05:28:00 0603 Commun i ty Hospita l Clinics 2020-08-26 2020-08-26 Outpatient WATERS_S [facility] [id number] [place] 01:01:00 01:01:00 0530 Commun i ty Hospita l Clinics 2020-08-20 2020-08-20 Outpatient WATERS_S [facility] [id number] [place] 05:07:00 05:07:00 0524 Commun i ty Hospita l Clinics 2020-08-20 2020-08-20 [facility] [place] 24 [place] 00:00:00 00:00:00 [facility] L[facility] POLISH[facility]-C[facility] Hospital - ty [address] [place] [address] [address], [place] [address] , Ph. 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 2020-07-26 2020-07-26 Outpatient [facility] [id number] 00:00:00 00:00:00 Roula [id number] 2020-07-24 2020-07-24 Outpatient SUSTACHE, [facility] [id number] [place] 00:00:00 00:00:00 SHIELA [address] 2020-07-23 2020-07-23 Emergency E ANNABELLE, FB FB [id number] MHFB 16:54:00 18:17:00 NICHELLE 2020-03-09 2020-03-09 Outpatient SHIVA, [facility] [facility] 11:08:00 23:59:00 LUCIEN 2018-07-28 2018-07-28 Outpatient [facility] [facility] 01:39:00 01:39:00 Results Test Description Test Time Test Comments Results Result Comments Source SARS-CoV-2 (COVID-19) Ag [Presence] in Respiratory spe cimen by 2022-03-27 09:52:00 Rapid immunoassay Test Item Value Reference Range Interpretation Comme nts SARS CoV 2 (test code = SARS CoV 2) negative [facility] (dipstick) panel - Urine 2022-03-27 09:31:00 Test Item Value Reference Range Interpretation Comments Nitrite (test code = negative Nitrite) Urobilinogen (test code = .2 Urobilinogen) Protein (test code = Negative Protein) pH (test code = pH) 5.0 Blood (test code = Blood) Non-Hemolyzed: Moderate Specific [place] (test 1.015 code = Specific [place]) Ketone (test code = Negative Ketone) Bilirubin (test code = Negative Bilirubin) Glucose (test code = Negative Glucose) Appearance (test code = Clear Appearance) Color (test code = Color) Pale Yellow Leukocytes (test code = Negative Leukocytes) [facility] (A+B)2022-03-27 09:29:00 Test Item Value Reference Range Interpretation Comments FLU A (test code = FLU A) negative FLU B (test code = FLU B) negative [facility] [id number] 13:24:00 Test Item Value Reference Range Interpretation Comments COVID 19 INHOUSE AG NEGATIVE Negative Per manu facturer, (test code = negative result s should [id number]) be treated aspr esumptive and, if inconsi [...] and symptoms co nsistent with COVID-19. PROTHROMBIN [id number] 12:35:00 Test Item Value Reference Range Interpretation [...] (to prevent recurrent infar ct). THROMBOPLASTIN TIME [id number] 12:35:00 Test Item Value Reference Range Interpretation Comments THROMBOPLASTIN TIME PARTIAL 32.1 SECONDS 26-35 N (test code = PTT) BASIC METABOLIC [id number] 11:27:00 Test Item Value Reference Range Interpretation [...] CA) 9.4 MG/DL 8.5-10.1 N CBC W/AUTO [id number] 11:16:00 Test Item Value Reference Range Interpretation [...] code NO DIFF/SCN CRITERIA = MDIFF) URINALYSIS [id number] 10:02:00 Test Item Value Reference Range Interpretation [...] Specimen Type: Clean Catch- XR CHEST 1 [id number] 09:57:00 [facility] : 1955 Sex: F Name: BOZENA MARSH [facility] : 1955 Age/S: 66 / F [id number] [address] [place] Unit #: [id number] Loc: J[place] [address] Phys: Gama Gabriel MD Acct: [id number] Dis Date: Status: PRE [facility] PHONE #: [phone] Exam Date: 12/27/2021956 FAX #: Reason: PREOP EXAMS: CPT: [id number] XR CHEST 1 V 06389 Fluoro Time: DAP (Gy m2): Air Kerma [...] PAGE 1 Signed Report Name: BOZENA MARSH [facility] : 1955 Age/S: 66 / F [id number] [address] [place] Unit #: [id number] Loc: [place] [address] Phys: Gama Gabriel MD Acct: [id number] Dis Date: Status: PRE [facility] PHONE #: [phone] Exam Date: 12/27/2021 0957 FAX #: Reason: PREOP EXAMS: CPT: [id number] XR CHEST 1 V 63538 Fluoro Time: DAP (Gy m2): Air Kerma (mGy): (Continued) Technologist: RT Annalise(R) Trnscb Date/Time: 12/27/2021 (0957) tMIRIAM Orig Print D/T: S: 12/27/2021 (1001) PAGE 2 Signed Report Urinalysis macro (dipstick) panel - [id number] 15:03:00 Test Item Value Reference Range Interpretation Comments Leukocytes (test code = Leukocytes) Small Nitrite (test code = Nitrite) negative Urobilinogen (test code = .2 Urobilinogen) Protein (test code = Protein) Trace pH (test code = pH) 7.0 Blood (test code = Blood) Moderate Specific [place] (test code = 1.015 Specific [place]) Ketone (test code = Ketone) Trace Bilirubin (test code = Bilirubin) Negative Glucose (test code = Glucose) Negative Appearance (test code = Appearance) Turbid Color (test code = Color) Yellow [facility] macro (dipstick) panel - Urine 2021-10-21 15:03:00 Test Item Value Reference Range Interpretation Comments Leukocytes (test code = Leukocytes) Small Nitrite (test code = Nitrite) negative Urobilinogen (test code = .2 Urobilinogen) Protein (test code = Protein) Trace pH (test code = pH) 7.0 Blood (test code = Blood) Moderate Specific [place] (test code = 1.015 Specific [place]) Ketone (test code = Ketone) Trace Bilirubin (test code = Bilirubin) Negative Glucose (test code = Glucose) Negative Appearance (test code = Appearance) Turbid Color (test code = Color) Yellow [facility] strep group A, [id number] 14:56:00 Test Item Value Reference Range Interpretation Comments Strep (test code = Strep) negative [facility] strep group A, [id number] 14:56:00 Test Item Value Reference Range Interpretation Comments Strep (test code = Strep) negative [facility]-CoV-2 (COVID-19) Ag [Presence] in Respiratory specimen by Rapid [id number] 14:55:00 Test Item Value Reference Range Interpretation Comments SARS CoV 2 (test code = SARS CoV 2) negative [facility]-CoV-2 (COVID-19) Ag [Presence] in Respiratory specimen by Rapid [id number] 14:55:00 Test Item Value Reference Range Interpretation Comments SARS CoV 2 (test code = SARS CoV 2) negative [facility] ur[facility] [id number] 19:36:00 Test Item Value Reference Range Interpretation Comments Color urine, POC (test Yellow code = 4212157) Clarity urine, POC (test Clear code = 8708003) Glucose urine, POC (test Negative Negative code = 6460945) Bilirubin urine, POC Negative Negative (test code = 9521329) Ketones urine, POC (test Negative Negative code = 7925222) Specific gravity urine, 1.010 1.005-1.030 POC (test code = 7699910) Blood urine, POC (test Trace Negative A code = 9872652) pH urine, POC (test code 6.0 See_Comment [A utomated message] = 0113964) The system Brayola generated this result transmitted ref erence range: 5.0, 5.5 , 6.0, 6.5, 7.0, 7.5, 8.0, 8.5. The refere nce range was not u sed to interpret this result as normal/abnor mal. Protein urine, POC (test Negative Negative code = 9576119) Urobilinogen urine, POC <2.0 <=2.0 (test code = 1226943) Nitrite urine, POC (test Negative Negative code = 0025451) Leukocyte esterase Negative Negative urine, POC (test code = 4649953) Lab Interpretation (test Abnormal code = 65587-8) [facility] BLADDER SCAN/[id number] 19:36:00 Test Item Value Reference Range Interpretation Comments Volume (test code = 9681981) 28 [facility] urinalysis [id number] 19:36:00 Test Item Value Reference Range Interpretation Comments Color urine, POC (test Yellow code = 5269523) Clarity urine, POC (test Clear code = 8729673) Glucose urine, POC (test Negative Negative code = 0348944) Bilirubin urine, POC Negative Negative (test code = 4082457) Ketones urine, POC (test Negative Negative code = 6569160) Specific gravity urine, 1.005-1.030 POC (test code = 0955882) Blood urine, POC (test Trace Negative A code = 6322265) pH urine, POC (test code See_Comment [A utomated message] = 5943931) The system Brayola generated this result transmitted ref erence range: 5.0, 5.5 , 6.0, 6.5, 7.0, 7.5, 8.0, 8.5. The refere nce range was not u sed to interpret this result as normal/abnor mal. Protein urine, POC (test Negative Negative code = 0780308) Urobilinogen urine, POC <2.0 See_Comment [Au tomated message] (test code = 1162765) The sy stem which generated this result transmitted ref erence range: <=2.0. T he reference range was not used to int erpret this result as normal/abnormal . Nitrite urine, POC (test Negative Negative code = 3711332) Leukocyte esterase Negative Negative urine, POC (test code = 8589853) Lab Interpretation (test Abnormal code = 33858-1) [facility] BLADDER SCAN/[id number] 19:36:00 Test Item Value Reference Range Interpretation Comments Volume (test code = 3764172) [facility] urinalysis [id number] 19:36:00 Test Item Value Reference Range Interpretation Comments Color urine, POC (test Yellow code = 7770096) Clarity urine, POC (test Clear code = 8676866) Glucose urine, POC (test Negative Negative code = 1032478) Bilirubin urine, POC Negative Negative (test code = 7109659) Ketones urine, POC (test Negative Negative code = 5785470) Specific gravity urine, 1.010 1.005-1.030 POC (test code = 3591261) Blood urine, POC (test Trace Negative A code = 1553919) pH urine, POC (test code 6.0 See_Comment [A utomated message] = 8404499) The system ic h generated this result transmitted ref erence range: 5.0, 5.5 , 6.0, 6.5, 7.0, 7.5, 8.0, 8.5. The refere nce range was not u sed to interpret this result as normal/abnor mal. Protein urine, POC (test Negative Negative code = 6590004) Urobilinogen urine, POC <2.0 <=2.0 (test code = 7763839) Nitrite urine, POC (test Negative Negative code = 9511244) Leukocyte esterase Negative Negative urine, POC (test code = 5678238) Lab Interpretation (test Abnormal code = 17439-9) [facility] BLADDER [id number]/[id number] 19:36:00 Test Item Value Reference Range Interpretation Comments Volume (test code = 7976161) 28 [facility] urinalysis [id number] 19:36:00 Test Item Value Reference Range Interpretation Comments Color urine, POC (test Yellow code = 2590595) Clarity urine, POC (test Clear code = 1997640) Glucose urine, POC (test Negative Negative code = 4264083) Bilirubin urine, POC Negative Negative (test code = 2731349) Ketones urine, POC (test Negative Negative code = 9218148) Specific gravity urine, 1.010 1.005-1.030 POC (test code = 1289397) Blood urine, POC (test Trace Negative A code = 3863984) pH urine, POC (test code 6.0 See_Comment [A utomated message] = 5063442) The system [employer] generated this result transmitted ref erence range: 5.0, 5.5 , 6.0, 6.5, 7.0, 7.5, 8.0, 8.5. The refere nce range was not u sed to interpret this result as normal/abnor mal. Protein urine, POC (test Negative Negative code = 0799216) Urobilinogen urine, POC <2.0 <=2.0 (test code = 6413289) Nitrite urine, POC (test Negative Negative code = 8854168) Leukocyte esterase Negative Negative urine, POC (test code = 2343751) Lab Interpretation (test Abnormal code = 02563-9) [facility] BLADDER SCAN/[id number] 19:36:00 Test Item Value Reference Range Interpretation Comments Volume (test code = 4492146) 28 [facility] urinalysis [id number] 19:36:00 Test Item Value Reference Range Interpretation Comments Color urine, POC (test Yellow code = 3038742) Clarity urine, POC (test Clear code = 9448636) Glucose urine, POC (test Negative Negative code = 9416590) Bilirubin urine, POC Negative Negative (test code = 0080014) Ketones urine, POC (test Negative Negative code = 8436929) Specific gravity urine, 1.010 1.005-1.030 POC (test code = 6610287) Blood urine, POC (test Trace Negative A code = 7663511) pH urine, POC (test code 6.0 See_Comment [A utomated message] = 3852703) The system [employer] generated this result transmitted ref erence range: 5.0, 5.5 , 6.0, 6.5, 7.0, 7.5, 8.0, 8.5. The refere nce range was not u sed to interpret this result as normal/abnor mal. Protein urine, POC (test Negative Negative code = 4554440) Urobilinogen urine, POC <2.0 <=2.0 (test code = 4811203) Nitrite urine, POC (test Negative Negative code = 7891679) Leukocyte esterase Negative Negative urine, POC (test code = 9833657) Lab Interpretation (test Abnormal code = 04074-3) [facility] BLADDER SCAN/[id number] 19:36:00 Test Item Value Reference Range Interpretation Comments Volume (test code = 9644406) 28 [facility] urinalysis [id number] 19:36:00 Test Item Value Reference Range Interpretation Comments Color urine, POC (test Yellow code = 0164071) Clarity urine, POC (test Clear code = 1018895) Glucose urine, POC (test Negative Negative code = 8744030) Bilirubin urine, POC Negative Negative (test code = 5983093) Ketones urine, POC (test Negative Negative code = 4491642) Specific gravity urine, 1.005-1.030 POC (test code = 7212357) Blood urine, POC (test Trace Negative A code = 6692041) pH urine, POC (test code See_Comment [A utomated message] = 6995650) The system [employer] generated this result transmitted ref erence range: 5.0, 5.5 , 6.0, 6.5, 7.0, 7.5, 8.0, 8.5. The refere nce range was not u sed to interpret this result as normal/abnor mal. Protein urine, POC (test Negative Negative code = 3678412) Urobilinogen urine, POC <2.0 See_Comment [Au tomated message] (test code = 9306147) The [employer] stem which generated this result transmitted ref erence range: <=2.0. T he reference range was not used to int erpret this result as normal/abnormal . Nitrite urine, POC (test Negative Negative code = 2018748) Leukocyte esterase Negative Negative urine, POC (test code = 0201837) Lab Interpretation (test Abnormal code = 25636-6) [facility] BLADDER SCAN/[id number] 19:36:00 Test Item Value Reference Range Interpretation Comments Volume (test code = 3548931) [facility] urinalysis [id number] 19:36:00 Test Item Value Reference Range Interpretation Comments Color urine, POC (test Yellow code = 8285532) Clarity urine, POC (test Clear code = 1866949) Glucose urine, POC (test Negative Negative code = 5113004) Bilirubin urine, POC Negative Negative (test code = 5847410) Ketones urine, POC (test Negative Negative code = 7931417) Specific gravity urine, 1.005-1.030 POC (test code = 9754410) Blood urine, POC (test Trace Negative A code = 2219867) pH urine, POC (test code See_Comment [A utomated message] = 8106459) The system [employer] generated this result transmitted ref erence range: 5.0, 5.5 , 6.0, 6.5, 7.0, 7.5, 8.0, 8.5. The refere nce range was not u sed to interpret this result as normal/abnor mal. Protein urine, POC (test Negative Negative code = 7486619) Urobilinogen urine, POC <2.0 See_Comment [Au tomated message] (test code = 7864928) The sy stem which generated this result transmitted ref erence range: <=2.0. T he reference range was not used to int erpret this result as normal/abnormal . Nitrite urine, POC (test Negative Negative code = 3677378) Leukocyte esterase Negative Negative urine, POC (test code = 6592081) Lab Interpretation (test Abnormal code = 24821-8) [facility] BLADDER SCAN/[id number] 19:36:00 Test Item Value Reference Range Interpretation Comments Volume (test code = 4389706) [facility] urinalysis [id number] 19:36:00 Test Item Value Reference Range Interpretation Comments Color urine, POC (test Yellow code = 4116355) Clarity urine, POC (test Clear code = 8805665) Glucose urine, POC (test Negative Negative code = 8823807) Bilirubin urine, POC Negative Negative (test code = 2865398) Ketones urine, POC (test Negative Negative code = 4343999) Specific gravity urine, 1.005-1.030 POC (test code = 4209761) Blood urine, POC (test Trace Negative A code = 6697182) pH urine, POC (test code See_Comment [A utomated message] = 6975415) The system [employer] generated this result transmitted ref erence range: 5.0, 5.5 , 6.0, 6.5, 7.0, 7.5, 8.0, 8.5. The refere nce range was not u sed to interpret this result as normal/abnor mal. Protein urine, POC (test Negative Negative code = 5970867) Urobilinogen urine, POC <2.0 See_Comment [Au tomated message] (test code = 0874468) The sy stem which generated this result transmitted ref erence range: <=2.0. T he reference range was not used to int erpret this result as normal/abnormal . Nitrite urine, POC (test Negative Negative code = 7233936) Leukocyte esterase Negative Negative urine, POC (test code = 4666512) Lab Interpretation (test Abnormal code = 01926-9) [facility] BLADDER SCAN/[id number] 19:36:00 Test Item Value Reference Range Interpretation Comments Volume (test code = 4151960) [facility] urinalysis [id number] 19:36:00 Test Item Value Reference Range Interpretation Comments Color urine, POC (test Yellow code = 9468950) Clarity urine, POC (test Clear code = 1424520) Glucose urine, POC (test Negative Negative code = 0891562) Bilirubin urine, POC Negative Negative (test code = 6210604) Ketones urine, POC (test Negative Negative code = 3700439) Specific gravity urine, 1.005-1.030 POC (test code = 4018278) Blood urine, POC (test Trace Negative A code = 6293271) pH urine, POC (test code See_Comment [A utomated message] = 7481155) The system [employer] generated this result transmitted ref erence range: 5.0, 5.5 , 6.0, 6.5, 7.0, 7.5, 8.0, 8.5. The refere nce range was not u sed to interpret this result as normal/abnor mal. Protein urine, POC (test Negative Negative code = 5284331) Urobilinogen urine, POC <2.0 See_Comment [Au tomated message] (test code = 8693346) The sy stem which generated this result transmitted ref erence range: <=2.0. T he reference range was not used to int erpret this result as normal/abnormal . Nitrite urine, POC (test Negative Negative code = 1247203) Leukocyte esterase Negative Negative urine, POC (test code = 3802223) Lab Interpretation (test Abnormal code = 08296-2) [facility] BLADDER SCAN/[id number] 19:36:00 Test Item Value Reference Range Interpretation Comments Volume (test code = 7558698) [facility] urinalysis [id number] 19:36:00 Test Item Value Reference Range Interpretation Comments Color urine, POC (test Yellow code = 6762358) Clarity urine, POC (test Clear code = 8855199) Glucose urine, POC (test Negative Negative code = 4786146) Bilirubin urine, POC Negative Negative (test code = 5180896) Ketones urine, POC (test Negative Negative code = 5893225) Specific gravity urine, 1.005-1.030 POC (test code = 6669361) Blood urine, POC (test Trace Negative A code = 1565369) pH urine, POC (test code See_Comment [A utomated message] = 7981445) The system [employer] generated this result transmitted ref erence range: 5.0, 5.5 , 6.0, 6.5, 7.0, 7.5, 8.0, 8.5. The refere nce range was not u sed to interpret this result as normal/abnor mal. Protein urine, POC (test Negative Negative code = 1904533) Urobilinogen urine, POC <2.0 See_Comment [Au tomated message] (test code = 2309307) The sy stem which generated this result transmitted ref erence range: <=2.0. T he reference range was not used to int erpret this result as normal/abnormal . Nitrite urine, POC (test Negative Negative code = 4183465) Leukocyte esterase Negative Negative urine, POC (test code = 8014478) Lab Interpretation (test Abnormal code = 05842-0) [facility] BLADDER SCAN/[id number] 19:36:00 Test Item Value Reference Range Interpretation Comments Volume (test code = 3361839) [facility] [id number] 00:00:00 Test Item Value Reference Range Interpretation Comments Bacteria identified in Urine by no growth Culture (test code = 630-4) [facility] 2021-07-24 00:00:00 Test Item Value Reference Range Interpretation Comments Bacteria identified in Urine by no growth Culture (test code = 630-4) [facility] [id number] 00:00:00 Test Item Value Reference Range Interpretation Comments written authorization (test code = comment written authorization) [facility] Urine by Culture 2021-06-29 00:00:00 Test Item Value Reference Range Interpretation Comments Bacteria identified in Urine by no growth Culture (test code = 630-4) [facility] Urine by Culture 2021-06-29 00:00:00 Test Item Value Reference Range Interpretation Comments Bacteria identified in Urine by no growth Culture (test code = 630-4) [facility] in Urine by Culture 2021-06-29 00:00:00 Test Item Value Reference Range Interpretation Comments Bacteria identified in Urine by no growth Culture (test code = 630-4) [facility] Urine by Culture 2021-06-29 00:00:00 Test Item Value Reference Range Interpretation Comments Bacteria identified in Urine by no growth Culture (test code = 630-4) [facility] macro (dipstick) panel - Urine 2021-06-27 16:17:00 Test Item Value Reference Range Interpretation Comments Leukocytes (test code = Small Leukocytes) Nitrite (test code = negative Nitrite) Urobilinogen (test code = .2 Urobilinogen) Protein (test code = Negative Protein) pH (test code = pH) 7.5 Blood (test code = Blood) Non-Hemolyzed: Trace Specific [place] (test 1.000 code = Specific [place]) Ketone (test code = Negative Ketone) Bilirubin (test code = Negative Bilirubin) Glucose (test code = Negative Glucose) Appearance (test code = Clear Appearance) Color (test code = Color) Pale Yellow [facility] macro (dipstick) panel - Urine 2021-06-27 16:17:00 Test Item Value Reference Range Interpretation Comments Leukocytes (test code = Small Leukocytes) Nitrite (test code = negative Nitrite) Urobilinogen (test code = .2 Urobilinogen) Protein (test code = Negative Protein) pH (test code = pH) 7.5 Blood (test code = Blood) Non-Hemolyzed: Trace Specific [place] (test 1.000 code = Specific [place]) Ketone (test code = Negative Ketone) Bilirubin (test code = Negative Bilirubin) Glucose (test code = Negative Glucose) Appearance (test code = Clear Appearance) Color (test code = Color) Pale Yellow [facility] ArlingtonCB W Auto Differential panel - [id number] 00:00:00 Test Item Value Reference Range Interpretation [...] = 706-2) immature cells (test code = digital coordinator immature cells) Neutrophils [#/volume] in Blood 3.7 [...] Blood by Automated count (test code = 76042-0) Immature granulocytes 0.0 x10e3/uL 0.0-0.1 [#/volume] in Blood by Automated count (test code = 81092-8) Nucleated erythrocytes/100 digital coordinator leukocytes [Ratio] in Blood by Automated count (test code = 58473-5) Morphology [Interpretation] in digital coordinator Blood Narrative (test code = 92775-6) [facility]Comprehensive [facility] 2000 panel - Serum or [id number] 00:00:00 Test Item Value Reference Range Interpretation [...] 96-106 Serum or Plasma (test code = 2074-0) Carbon dioxide, total 21 mmol/L 20-29 [Moles/volume] in Serum or Plasma (test code = 2027-9) Calcium [Mass/volume] in Serum 10.0 mg/dL 8.7-10.3 or Plasma (test code = 79380-1) Protein [Mass/volume] in Serum 6.5 g/dL 6.0-8.5 or Plasma (test code = 2885-2) Albumin [Mass/volume] in Serum 4.4 g/dL 3.8-4.8 or Plasma (test code = 1751-7) Globulin [Mass/volume] in 2.1 g/dL 1.5-4.5 Serum by calculation (test code = 82763-7) Albumin/Globulin [Mass Ratio] 2.1 1.2-2.2 in Serum [...] Serum or Plasma (test code = 1742-6) [facility] ClinicsThyrotropin [Units/volume] in Serum or Plasma by Detection limit <= 0.005 mIU/[id number] 00:00:00 Test Item Value Reference Range Interpretation Comments Thyrotropin [Units/volume] in 2.820 uIU/mL 0.450-4.500 Serum or Plasma by Detection limit <= 0.005 mIU/L (test code = 79326-3) [facility]Thyroxine (T4) free [Mass/volume] in Serum or [id number] 00:00:00 Test Item Value Reference Range Interpretation Comments Thyroxine (T4) free [Mass/volume] 1.04 NG/dL 0.82-1.77 in Serum or Plasma (test code = 3024-7) [facility] test [id number] 00:00:00 Test Item Value Reference Range Interpretation Comments dear doctor, (test code = dear comment doctor,) [facility] ArlingtonLipid 1996 panel - Serum or [id number] 00:00:00 Test Item Value Reference Range Interpretation [...] or Plasma by calculation (test code = 88513-5) Cholesterol in LDL [Mass/volume] in 156 mg/dL 0-99 H Serum or Plasma by calculation (test code = 07776-5) Laboratory comment [Text] in Report digital coordinator Narrative (test code = 18552-2) Cholesterol in LDL/Cholesterol in 3.0 ratio 0.0-3.2 HDL [Mass Ratio] in Serum or Plasma (test code = 30128-5) [facility] ArlingtonHelicobacter pylori IgA and IgG and IgM [Interpretation] in Serum or [id number] 00:00:00 Test Item Value Reference Range Interpretation Comments Helicobacter pylori IgG Ab 0.45 index value 0.00-0.79 [Units/volume] in Serum by Immunoassay (test code = 5176-3) Helicobacter pylori IgA Ab <9.0 0.0-8.9 [Units/volume] in Serum (test code = 7901-2) Helicobacter pylori IgM Ab <9.0 0.0-8.9 [Units/volume] in Serum (test code = 7903-8) [facility] ArlingtonFolate+Cyanocobalamin [Interpretation] in Serum or [id number] 00:00:00 Test Item Value Reference Range Interpretation Comments Cobalamin (Vitamin B12) 920 pg/mL 232-1245 [Mass/volume] in Serum or Plasma (test code = 2132-9) Folate [Mass/volume] in Serum or >20.0 >3.0 Plasma (test code = 2284-8) [facility]25-Hydroxyvitamin D3+25-Hydroxyvitamin D2 [Mass/volume] in Serum or [id number] 00:00:00 Test Item Value Reference Range Interpretation Comments 25-Hydroxyvitamin 36.5 NG/mL 30.0-100.0 D3+25-Hydroxyvitamin D2 [Mass/volume] in Serum or Plasma (test code = 65024-3) [facility]Ferritin [Mass/volume] in Serum or Plasma 2021-06-25 00:00:00 Test Item Value Reference Range Interpretation Comments Ferritin [Mass/volume] in Serum or 96 NG/mL 15-150 Plasma (test code = 2276-4) [facility] ArlingtonUrinalysis macro (dipstick) panel - Urine 2021-04-09 13:17:00 Test Item Value Reference Range Interpretation Comments Leukocytes (test code = Small Leukocytes) Nitrite (test code = negative Nitrite) Urobilinogen (test code = .2 Urobilinogen) Protein (test code = Negative Protein) pH (test code = pH) 5.0 Blood (test code = Blood) Hemolyzed: Trace Specific [place] (test code 1.015 = Specific [place]) Ketone (test code = Ketone) Negative Bilirubin (test code = Negative Bilirubin) Glucose (test code = Negative Glucose) [facility]CoV[facility] ([facility]OVID[facility]) Ag [Presence] in Respiratory specimen by Rapid [id number] 16:26:00 Test Item Value Reference Range Interpretation Comments SARS CoV 2 (test code = SARS CoV 2) negative [facility] SjtflgoUYVP-MfB-8 (COVID-19) Ag [Presence] in Respiratory specimen by Rapid [id number] 16:26:00 Test Item Value Reference Range Interpretation Comments SARS CoV 2 (test code = SARS CoV 2) negative [facility]SARS-CoV-2 (COVID-19) Ag [Presence] in Respiratory specimen by Rapid [id number] 16:26:00 Test Item Value Reference Range Interpretation Comments SARS CoV 2 (test code = SARS CoV 2) negative [facility]SARS-CoV-2 (COVID-19) Ag [Presence] in Respiratory specimen by Rapid [id number] 16:26:00 Test Item Value Reference Range Interpretation Comments SARS CoV 2 (test code = SARS CoV 2) negative [facility]rap[facility] flu (A+B)2021-02-25 16:10:00 Test Item Value Reference Range Interpretation Comments FLU A (test code = FLU A) negative FLU B (test code = FLU B) negative [facility] flu (A+B)2021-02-25 16:10:00 Test Item Value Reference Range Interpretation Comments FLU A (test code = FLU A) negative FLU B (test code = FLU B) negative [facility] flu (A+B)2021-02-25 16:10:00 Test Item Value Reference Range Interpretation Comments FLU A (test code = FLU A) negative FLU B (test code = FLU B) [facility] 16:10:00 Test Item Value Reference Range Interpretation Comments FLU A (test code = FLU A) negative FLU B (test code = FLU B) negative [facility] Arlingtonrapid strep group A, [id number] 16:09:00 Test Item Value Reference Range Interpretation Comments Strep (test code = Strep) positive [facility], [id number] 16:09:00 Test Item Value Reference Range Interpretation Comments Strep (test code = Strep) [facility], [id number] 16:09:00 Test Item Value Reference Range Interpretation Comments Strep (test code = Strep) positive [facility] st[facility] group A, [id number] 16:09:00 Test Item Value Reference Range Interpretation Comments Strep (test code = Strep) positive [facility] ArlingtonHeterophile Ab [Presence] in Blood by [id number] 15:33:00 Test Item Value Reference Range Interpretation Comments Pike (test code = Pike) negative [facility] ArlingtonHeterophile Ab [Presence] in Blood by [id number] 15:33:00 Test Item Value Reference Range Interpretation Comments Pike (test code = Pike) negative [facility] ArlingtonIron and Iron binding capacity panel - Serum or [id number] 00:00:00 Test Item Value Reference Range Interpretation [...] Serum or Plasma (test code = 2502-3) [facility] ArlingtonFolate+Cyanocobalamin [Interpretation] in Serum or [id number] 00:00:00 Test Item Value Reference Range Interpretation Comments Cobalamin (Vitamin B12) 971 pg/mL 232-1245 [Mass/volume] in Serum or Plasma (test code = 2132-9) Folate [Mass/volume] in Serum or >20.0 >3.0 Plasma (test code = 2284-8) [facility] ArlingtonPhosphate [Mass/volume] in Serum or Plasma 2020-07-27 00:00:00 Test Item Value Reference Range Interpretation Comments Phosphate [Mass/volume] in Serum or 3.0 mg/dL 3.0-4.3 Plasma (test code = 2777-1) [facility] ArlingtonErythrocyte sedimentation rate by Westergren [id number] 00:00:00 Test Item Value Reference Range Interpretation Comments Erythrocyte sedimentation rate by 4 mm/HR 0-40 Westergren method (test code = 4537-7) [facility] ClinicsMagnesium [Mass/volume] in Serum or Plasma 2020-07-27 00:00:00 Test Item Value Reference Range Interpretation Comments Magnesium [Mass/volume] in Serum or 2.2 mg/dL 1.6-2.3 Plasma (test code = 35670-3) [facility] ClinicsIron and Iron binding capacity panel - Serum or [id number] 00:00:00 Test Item Value Reference Range Interpretation [...] Serum or Plasma (test code = 2502-3) [facility] ClinicsFolate+Cyanocobalamin [Interpretation] in Serum or [id number] 00:00:00 Test Item Value Reference Range Interpretation Comments Cobalamin (Vitamin B12) 971 pg/mL 232-1245 [Mass/volume] in Serum or Plasma (test code = 2132-9) Folate [Mass/volume] in Serum or >20.0 >3.0 Plasma (test code = 2284-8) [facility] ClinicsPhosphate [Mass/volume] in Serum or Plasma 2020-07-27 00:00:00 Test Item Value Reference Range Interpretation Comments Phosphate [Mass/volume] in Serum or 3.0 mg/dL 3.0-4.3 Plasma (test code = 2777-1) [facility] ClinicsErythrocyte sedimentation rate by Westergren [id number] 00:00:00 Test Item Value Reference Range Interpretation Comments Erythrocyte sedimentation rate by 4 mm/HR 0-40 Westergren method (test code = 4537-7) [facility] ClinicsMagnesium [Mass/volume] in Serum or Plasma 2020-07-27 00:00:00 Test Item Value Reference Range Interpretation Comments Magnesium [Mass/volume] in Serum or 2.2 mg/dL 1.6-2.3 Plasma (test code = 50002-2) [facility] [id number] 11:22:00 RUN DATE: 01/01/18 [facility] - LAB *LIVE* PAGE 1 RUN TIME: 1122 Specimen Inquiry RUN USER: INTERFACE PATIENT: BOZENA MARSH LOC: [facility] U #: [id number] AGE/SX: 62/F ROOM: RE12/31/17REG DR: Raz Gaspar III : 57 BED: DIS: STATUS: [facility] TLOC: SPEC #: [id number] RECD: 12/31/17 STATUS: HENRY DELGADO #: [id number] SHYANN: 12/31/[address]: Raz Gaspar III, MD ENTERED: 12/31/17 SP TYPE: SURG OTHR DR: No Primary or Family PhysicianORDERED: SURG PATH LVL 1, SURG PATH LVL 4 COPIES TO: No Primary [place] [id number] [place] [address] HISTOLOGY: TISSUE ID BLK PCS ANAIS LEV PROCEDURE DISPOSITION ____ ___ ___ ___ NASAL TURBINATE A 1 1 NASAL SEPTUM, N B 1 1 PROCEDURES: SURG PATH LVL 1 (01/01/18) SURG PATH LVL 4 (01/01/18) TISSUES: A. NASAL TURBINATE, NOS - BILATERAL INFERIOR TURBINATES B. NASAL SEPTUM, NOS - SEPTUM CPT CODES CPT CODE(S): 60915 , 54784 , , , , , FINAL DIAGNOSIS A. Inferior turbinate, bilateral, endoscopic sinus surgery: SINUS CONTENTS CONSISTENT WITH CHRONIC SINUSITIS B. Nasal septum, septoplasty: BONE AND CARTILAGE(GROSS ONLY) GROSS DESCRIPTION A. Bilateral inferior turbinates. Received in formalin are irregular fragments of sauceda-brown soft tissue admixed with dark brown blood clots, 2.7 x 1.8 x 1.0 cm in aggregate. [employer] sections submitted as A. B. Septum. Received in formalin are multiple irregular fragments of cartilage CONTINUED ON NEXT PAGE RUN DATE: 01/01/18 [facility] - LAB *LIVE* PAGE 2 RUN TIME: 1122 Specimen Inquiry RUN USER: INTERFACE SPEC #: [id number] PATIENT: BOZENA MARSH #[id number] (Continued) GROSS DESCRIPTION (Continued) and bones, 5.0 x 3.5 x 0.7 cm in aggregate. The specimen is photographed for gross identification only. ba/nr Grossing performed at [facility], [address], [address], [place] [address]. Charter Representative: Ralph Dash M.D. MICROSCOPIC DESCRIPTION A. Bilateral inferior turbinates. Fragments of respiratory epithelium lined mucosa. There are benign mucus glands and a chronic inflammatory infiltrate. Fragments of unremarkable cartilage and bone present. No evidence of malignancy. B. Septum. For gross identification only. /doug Signed SIGNATURE ON FILE Kel Chatterjee 01/01/18 1122 END OF REPORT Notes Date/Time Note Provider Source 2021-12-30 20:16:00-00:00 [id number] [address] PATIENT NAME: BOZENA MARSH ADMIT DATE: 2 ACCOUNT NO: [id number] ROOM NO: L.S216 AGE: 66 REPORT TYPE: OPERATIVE REPORT SEX: F ADMITTING PHYSICIAN: Elvia Arauz MD ATTENDING PHYSICIAN: Elvia Arauz MD OPERATION DATE: 12/30/2021 PREOPERATIVE DIAGNOSES: Posterior wall defect, s tage II, possible posterior enterocele. 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 PROCEDURE PERFORMED: Posterior wall repair, post erior enterocele repair and perineocele repair. SURGEON: Elvia Arauz MD BLOOD DONOR RECRUITER SUPERVISOR: Parvez. ANESTHESIA: General. FINDINGS: POP-Q -2, -2, -6, 5, 10, 7, 0, +1, -4. COMPLICATIONS: None. DRAINS: Nunez catheter. ESTIMATED BLOOD LOSS: Minimal. SPECIMENS: None. FLUIDS: LR 1200. URINE OUTPUT: 50 mL COUNTS: Correct. INDICATIONS: The patient is a 66-year-old lady w ith initial presentation for evaluation of recurrent UTI, had already seen a urologist who evaluated her. I have not been able to review her notes, but the patient's understanding of her plan through the urologist w as a prolapse repair that could decrease her bladder infections. She also has an extensive history of admissions and treatment for recurrent urinary tract infections, most likely acute bact erial cystitis. She has had a catheterization , subsequent to which these have started. PATIENT NAME: BOZENA MARSH 9207 There was history of diverticulitis at one point and I was suspicious for possibly a colovesical fistu la, so performed a cystoscopy, which showed a small area that could be an old scar or healed up area for a fistula, but no active fistula clearly noted in the bladder. Sh jody was sent to a colorectal surgeon for consultation, working up the same problem. She h ad a clinical evaluation followed by an MRI, which did not show any evide nce of a fistula. She also had a CT scan from earlier this year at did not even show diverticulitis. At the time, the patient assumed she could have had this, so she was clearly explained at. 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 A combination of estrogen locally with a strong pack and a probiotic were prescribed for her. She did have a subsequent infection, which was treated and currently she is on suppre ssion for this. She also complained of vaginal bulge symptoms, e vacuation problems with her bowel movement. On evaluation, she did have a st age II posterior wall defect. This was explained to the patient and observatio n or surgery was reviewed as alternative. It was very clear that thes e two were unrelated. I do not suspect any significant anterior wall or apical defect; however, the patient had an expectation that her bladder infections would be resolved with doing her prolapse repair. This has been clarified several times, which included this afternoon when her [facility] We reviewed all these. The patient was significantly upset, stated that she assumed her bladder infections would be resolved after prola pse repair and did not understand why she would need repair if that was not the case. She was offered to just continue medical management at this is t he only way. I would continue treating her for her recurre nt UTIs and that prolapse was a completely different diagnosis with a different set of symptoms and o utcomes. Understanding this fully and the daughter is asking questions and t hem both being satisfied with question they wanted to proceed with a pro lapse repair of just the posterior wall. Catheterization during the proce dure and postop could lead to increased incidence of bladd er infections especially in this patient, so she was started on trimethoprim. She came with a list of all the side effects that she could have and was concerned about anemia. She w ill be monitored for this trimethoprim as the safest antibiotic wi th least side effects in this patient. DESCRIPTION OF PROCEDURE: After consenting, she was taken back to the OR and given 2 grams of Ancef. SCDs were placed. After general anesthesia was given, she was placed in dorsal lithotomy position. Low er abdomen, vulva, vagina, medial thighs and perineum were prepped and draped in a sterile fashion. Nunez was placed to drain the bladder and attached and clamped and retracted superiorly. On evaluating her POP-Q, it is as di ctated above in the findings. She only needed a posterior repair with an enter ocele repair. It seemed like her rectovaginal septum is probably in the dista l half and detached from the apex, so plan was to open th e perineum and the perineum had a significant gaping defect consistent with a per ineocele, so a triangular incision was placed on the perineum. Then, a avtar-shaped incision placed on the distal one-half or distal one-third to slightly more than that. Underlying tissues were infiltrated with dilute vasopressin and then vaginal epithel ium was excised from the underlying connective tissue. Similar pe rineal epithelium was excised from the underlying tissues, then laterally the perineal body structures were all dissected all the way in the vestibule from the vestibule to the perineum. PATIENT NAME: BOZENA MARSH 9207 Then, dissection carried abo ve on the lateral barnes of the distal posterior wall exposing the rectovaginal septum. There were no detachments from the lateral aspects. The perineal body was also abdiel ched to the posterior wall. The entire proximal part of the connect kalia tissue and rectovaginal septum was detached from the apex. The apex still seemed well sup ported with her uterosacral support at the level 1. The posterior enterocele was completely dissected all the way to the top of the cervix. Then, this was repaired with the help of a pursestring 3-0 Monocryl suture. Then, the 2-0 PDS was taken and the prox imal part of the rectovaginal septum was reattached to the pericervical ring in a continuous running fashion. Then, the suture was used to bring down and laterally plicated the rectovaginal septum slightly to buttress the posterio r wall distally and also to bring down the significantly stretched out part together, then went on to the perineum and here, the 2-0 PDS was used t o bring the perineal body structures at the level of the vestibule together, then the stitch was run back up and tied inside of the mid part of the distal posterior cuff. 2-0 Vicryl sutures were taken to reconstruct the perineal body in 2 layers. Three stitches each were pawan isaura to bring the structures together, which included distal most external sphincter. I then went on to close with the help of 2-0 Vicryl after trimming the vaginal epithelium superiorly and slightly to be able to not have a dog ear. Continuous running locked rosenberg ture was done to the vestibule, then 3-0 Vicryl was used to do subcutaneous and subcuticular closure of the perineum. Rectovaginal exam was performed. There was excellent reconstr uction of the perineal body thickness and posterior wall was reattache d and appeared to be well supporting to the rectum. There was a good perineal lift due to the reatta chment of the proximal rectovaginal septum to the cervix. Nunez was left in place. No cystoscopy was indic ated for this patient. Gloves were changed. Packing was done. She was recovere d from anesthesia. Estimated blood loss was minimal. She was taken to the PACU in stable condition and will be admitted overnight for observation. Restart a ll her home meds in the morning. She will have her Nunez and vaginal pac k removed. She will have a voiding trial and if she passes them, we will le ave it without a catheter. If she does not empty her bladd er optimally, then she will go home with a catheter for 3 days and she will have a voiding t rial on here in our office at 08:30, she will be removed a t 6:00 a.m. Trimethoprim has been prescribed to the patient, vaginal estrogen cream and we also disc ussed about the Ellura and probiotic. All the findings were reviewed with the two daughters in the recovery room and she is in the PACU at this time in a st able condition. Dictated By: Elvia Arauz MD Date Dictated: 12/30/2021 20:16:20 Date Transcribed: 12/30/2021 21:56:00 SHAWNA/RAZA/ADELINA PATIENT NAME: BOZENA MARSH 9207 Receipt ID: [id number] Authenticated by Elvia Arauz MD On 01/30 01:03:10 PM at 0103 PATIENT NAME: BOZENA MARSH [id number] 2021-12-30 18:11:00-00:00 [facility] Brief Op Note REPORT#:[id number] REPORT STATUS: Signed DATE:12/30/21 TIME:1810 PATIENT: BOZENA MARSH UNIT #: [id number] ROOM/BED: : 56 AGE: 66 SEX: F ATTEND: Sa nolan Arauz MD ADM AUTHOR: Elvia Arauz MD * ALL edits or amendments must be made on the el ectronic/computer document * Op/Inv Proc Note - Brief Pre-procedure diagnosis: posterior wall defect stage 2 Post-procedure diagnosis: same as pre procedure dx, posterior enterocele, and perineocele Procedures performed: posterior wall , enterocele and perineocele repa irs Primary Surgeon: chad Pneudraulic Systems Mechanic(s): Parvez Anesthesia: general anesthesia Findings: pop q -2/-2/-6/5/thin/7/0/+1/-4 Complications: none Estimated blood loss in ml's: 50 Specimens removed/altered: none Drain(s): Nunez Catheter Placed Fluids: 1200 Urine output: 50 Approach: vag Wound class: clean-contaminated Disposition: MEDSURG Counts: Sponge count: correct Instrument count: correct Needle count: correct Electronically Signed by Elvia Arauz MD o n 12/30/21 at 2004 RPT #: [id number] END OF REPORT 2021-12-27 08:52:00-00:00 [id number] [address] PATIENT NAME: BOZENA MARSH ADMIT DATE: 2 ACCOUNT NO: [id number] ROOM NO: L.S216 AGE: 66 REPORT TYPE: eELECTROCARDIOGRAM SEX: F ADMITTING PHYSICIAN: Elvia Arauz MD ATTENDING PHYSICIAN: Elvia Arauz MD Order: [id number] Test Reason : PRE OP Test Date/Time Stamp: ThuDec 27 2021 08:52:04 Blood Pressure : / mmHG Vent. Rate : 063 BPM Atrial Rate : 063 BPM P-R Int : 138 ms QRS Dur : 080 ms QT Int : 386 ms P-R-T Axes : 042 -31 -28 degree s QTc Int : 395 ms Normal sinus rhythm Left axis deviation Nonspecific ST and T wave abnormality Confirmed by MD Agustina, Beti ([id number]) on 9:48:10 AM Referred By: Elvia Arauz Confirmed by:Beti Berrios MD at 0948 PATIENT NAME: BOZENA MARSH [id number]
[2022-08-17 09:21] LABS: Specific Gravity 1.005 (1.005-1.030); Urine Bilirubin NEGATIVE (Negative); Urine Blood Negative (Negative); Urine Clarity Clear (Clear); Urine Color Colorless (Yellow); Urine Glucose NEGATIVE (Negative); Urine Protein NEGATIVE (Negative); Urine Urobilinogen Normal (Normal); Urine pH 6.5 (5.0-7.0)
[2022-08-17] MEDS ORDERED: HYDROCODONE/APAP 5/325 MG TAB ONE (09:33)
[2022-08-17] MEDS ORDERED: TRAMADOL 37.5mg/APAP 325mg PER TAB ONE (09:38)
[2022-08-17] MEDS ORDERED: ONDANSETRON 4 MG (ODT) TAB ONE (09:38)
--- NOTE | 2022-08-17 10:37 | RAD REPORT ---
EXAM DESCRIPTION: US - Extrem Venous W Compress Mateo - 08/17/2022 10:28 am CLINICAL HISTORY: PAIN Bilateral leg edema and swelling. COMPARISON: <Comparisons> TECHNIQUE: Real-time sonographic interrogation of the left and right lower extremity deep venous sys tems was performed. FINDINGS: Normal compressibility, flow augmentation, phasic flow and spontaneous flow is identified in both the left and right lower extremity deep venous systems. IMPRESSION: No sonographic evidence of left or right lower extremity deep venous thrombosis.
--- NOTE | 2022-08-17 10:53 | EDPHYS ---
Physician Documentation [facility] Name: Tracey Rodriguez Age: 66 yrs Sex: Female : 1955 Arrival Date: 08/17/2022 Time: 08:54 Bed 5 Private MD: ED Physician Dony Wilkes Historical: - Allergies: 08/17 09:02 anti-inflammatory (all); ll1 09:02 Ciprofloxacin; ll1 09:02 fluoroquinolones; ll1 09:02 Levaquin; ll1 09:02 Sulfa (Sulfonamide Antibiotics); ll1 - Home Meds: 09:04 levothyroxine oral [Active]; gabapentin oral [Active]; valacyclovir 1 gram Oral tablet iw every 12 hours [Active]; - PMHx: 09:02 Diverticulitis; ll1 - PSHx: 09:02 carpal tunnal repair; Colectomy; Ligation of fallopian tube; ll1 - Immunization history:: Adult Immunizations up to date. - Social history:: Smoking status: Patient denies any tobacco usage or history of. Vital Signs: 09:06 BP 143 / 83; Pulse 80; Resp 16; Temp 98; Pulse Ox 98% on R/A; iw MDM: 08:58 Patient medically screened. [facility] 08/17 09:05 Order name: Urinalysis w/ reflexes; Complete Time: 09:22 [facility] 08/17 09:05 Order name: US Extremity Venous W Compression Mateo; Complete Time: 10:38 [facility] Administered Medications: 09:35 Not Given (patient drivingg): HYDROcodone-acetaminophen PO 5 mg-325 mg 1 tabs PO once ll1 09:38 Drug: Ultracet PO 1 tabs Route: PO; ll1 09:38 Drug: Ondansetron PO 4 mg Route: PO; ll1 Disposition Summary: 08/17/22 10:52 Discharge Ordered Location: Home [facility] Condition: Stable jm Diagnosis - Pain in right leg jmm - Pain in left leg [facility] Followup: jmm - With: Private Physician - When: 2 - 3 days - Reason: Recheck today's complaints, Continuance of care, Re-evaluation by your physician Discharge Instructions: - Discharge Summary Sheet [facility] Forms: - Medication Reconciliation Form [facility] - Thank You Letter jm - Antibiotic Education jmm - Prescription Opioid Use jmm Prescriptions: - Ultracet 37.5-325 mg Oral Tablet - take 1 tablet by ORAL route every 6 hours - for up to 5 days; do not exceed 8 jmm tablets per day.; 20 tablet; Refills: 0, Product Selection Permitted - Medrol (Andrew) 4 mg Oral Tablets, Dose Pack - take 1 tablet by ORAL route as directed - follow package instructions; 1 jmm packet; Refills: 0, Product Selection Permitted - orphenadrine citrate 100 mg Oral Tablet Sustained Release - take 1 tablet by ORAL route 2 times per day As needed; 20 tablet; Refills: 0, jmm Product Selection Permitted Signatures: Dispatcher [employer] Lavon Meyers PA PA jmm Williams, Irene, RN RN iw Austin Mayfield RN RN ll1
--- NOTE | 2022-08-17 10:53 | ER ---
Nurse's Notes [facility] Name: Tracey Rodriguez Age: 66 yrs Sex: Female : 1955 Arrival Date: 08/17/2022 Time: 08:54 Bed 5 Private MD: Diagnosis: Pain in right leg;Pain in left leg Presentation: 08/17 09:03 Chief complaint: Patient states: was diagnosed with shingles on Thursday, started iw valacyclovir , now her right great toe is hurting and her right knee is hurting. Coronavirus screen: At this time, the client does not indicate any symptoms associated with coronavirus-19. Ebola Screen: Patient negative for fever greater than or equal to 101.5 degrees Fahrenheit, and additional compatible Ebola Virus Disease symptoms Patient denies exposure to infectious person. Patient denies travel to an Ebola-affected area in the 21 days before illness onset. No symptoms or risks identified at this time. Initial Sepsis Screen: Does the patient meet any 2 criteria? No. Patient's initial sepsis screen is negative. Does the patient have a suspected source of infection? No. Patient's initial sepsis screen is negative. Risk Assessment: Do you want to hurt yourself or someone else? Patient reports no desire to harm self or others. Onset of symptoms was August 17, 2022. 09:03 Method Of Arrival: Ambulatory iw 09:03 Acuity: ANUJA 3 iw Historical: - Allergies: 09:02 anti-inflammatory (all); ll1 09:02 Ciprofloxacin; ll1 09:02 fluoroquinolones; ll1 09:02 Levaquin; ll1 09:02 Sulfa (Sulfonamide Antibiotics); ll1 - Home Meds: 09:04 levothyroxine oral [Active]; gabapentin oral [Active]; valacyclovir 1 gram Oral tablet iw every 12 hours [Active]; - PMHx: 09:02 Diverticulitis; ll1 - PSHx: 09:02 carpal tunnal repair; Colectomy; Ligation of fallopian tube; ll1 - Immunization history:: Adult Immunizations up to date. - Social history:: Smoking status: Patient denies any tobacco usage or history of. Screenin:02 [facility] ED Fall Risk Assessment (Adult) Score/Fall Risk Level 0 - 2 = Low Risk ll1 Oriented to surroundings, Maintained a safe environment, Educated pt \T\ family on fall prevention, incl call for assistance when getting out of bed, Hourly rounding (assess needs \T\ fall precautionary measures) done. Abuse screen: Denies threats or abuse. Nutritional screening: No deficits noted. Tuberculosis screening: No symptoms or risk factors identified. Assessment: 09:35 General: Appears in no apparent distress. Behavior is calm, cooperative, appropriate ll1 for age. Pain: Complains of pain in right foot Quality of pain is described as aching. GI: Reports nausea. Musculoskeletal: Circulation, motion, and sensation intact. Capillary refill < 3 seconds, Reports pain in R great toe, R knee. 09:36 Reassessment: No changes from previously documented assessment. Patient and/or family ll1 updated on plan of care and expected duration. Pain level reassessed. Patient is alert, oriented x 3, equal unlabored respirations, skin warm/dry/pink. 10:45 Reassessment: Patient appears in no apparent distress at this time. Patient and/or hb family updated on plan of care and expected duration. Pain level reassessed. Patient is alert, oriented x 3, equal unlabored respirations, skin warm/dry/pink. 11:22 Reassessment: Patient appears in no apparent distress at this time. Patient and/or hb family updated on plan of care and expected duration. Pain level reassessed. Patient is alert, oriented x 3, equal unlabored respirations, skin warm/dry/pink. Vital Signs: 09:06 BP 143 / 83; Pulse 80; Resp 16; Temp 98; Pulse Ox 98% on R/A; iw ED Course: 08:55 Patient arrived in ED. rg4 08:56 Lavon Amor PA is PHCP. jmm 08:56 Dony Wilkes MD is Attending Physician. jmm 09:02 Austin Mayfield, DOLORES is Primary Nurse. ll1 09:02 Arm band placed on Patient placed in an exam room, on a stretcher. ll1 09:03 Patient has correct armband on for positive identification. Bed in low position. Call ll1 light in reach. 09:04 Triage completed. iw 09:14 Urinalysis w/ reflexes Sent. ll1 10:30 US Extremity Venous W Compression Mateo In Process Unspecified. EDMS 11:22 No provider procedures requiring assistance completed. Patient did not have IV access hb during this emergency room visit. Administered Medications: 09:35 Not Given (patient drivingg): HYDROcodone-acetaminophen PO 5 mg-325 mg 1 tabs PO once ll1 09:38 Drug: Ultracet PO 1 tabs Route: PO; ll1 09:38 Drug: Ondansetron PO 4 mg Route: PO; ll1 Medication: 09:38 VIS not applicable for this client. ll1 Outcome: 10:52 Discharge ordered by MD. aguilar 11:22 Discharged to home ambulatory, with family. hb 11:22 Condition: stable 11:22 Discharge instructions given to patient, Instructed on discharge instructions, follow up and referral plans. medication usage, Demonstrated understanding of instructions, follow-up care, medications, Prescriptions given X 3. 11:22 Patient left the ED. hb Signatures: Dispatcher [employer] EDMS Lavon Amor PA PA jmm Williams, Irene, RN RN iw Baxter, Heather, RN RN hb Garcia, Rubi rg4 Austin Mayfield RN RN 1
[2022-08-17 11:27] VITALS: BP 143/83; TEMP 98; O2SAT 98
== END 2022-08-17 11:22 | disposition home or self-care (01) ==
LOC: ER 08:54
DX: M79.604 Pain in right leg (principal); M79.605 Pain in left leg; Z88.1 Allergy status to other antibiotic agents; Z88.2 Allergy status to sulfonamides; Z88.8 Allergy status to other drugs, medicaments and biological substances
CPT/HCPCS: 81003; 93970; Q0162

== ENCOUNTER 2022-08-24 10:48 | Emergency (ER) | payer OTHER ==
--- OUTSIDE RECORDS SUMMARY | 2022-08-24 10:55 | XMS REPORT | Continuity of Care Document ---
:1955 Author Organization [facility] t Address [address] [place] [address] Care Team Providers Name Role Phone Silvio Babin MD, Shiela Primary Care Physician [phone] LUCIEN SHANNON Attending Clinician Unavailable CHIVO Attending Clinician Unavailable JOHN_Newton Attending Clinician Unavailable Emily Vazquez MD Attending Clinician [phone] Elvia Arauz Attending Clinician Unavailable Willy Lopez Attending Clinician [phone] Emily Longoria Attending Clinician [phone] MATTHEW NAGY Attending Clinician Unavailable Kaitlin Block Attending Clinician [phone] LUCIEN SHANNON Attending Clinician Unavailable JONATHAN Attending Clinician Unavailable GISEL Attending Clinician Unavailable Provider , Not In System Attending Clinician Unavailable Ginna Lord MA Attending Clinician Unavailable Roula Finn Attending Clinician [phone] SHIELA RASMUSSEN Attending Clinician Unavailable NICHELLE ALANIS Attending Clinician Unavailable CHRETIEN_F Admitting Clinician Unavailable SISFABIOLA_Newton Admitting Clinician Unavailable Elvia Arauz Admitting Clinician Unavailable LEVI_FLORIN Admitting Clinician Unavailable FRANCISCO_S Admitting Clinician Unavailable Payers Payer Name Policy Type Policy Number Effective Date Expiration Date Nolan desai AETNA CHOICE POS II [id number] 2002 2002 00:00:00 00:00:00 AETNA (MEDICARE [id number] 2022 REPLACEMENT PPO) 00:00:00 MEDICARE A-[place]: [id number] 2021 [employer] 00:00:00 MEDICARE A-[place]: [id number] 2021 [employer] - 00:00:00 [facility] AETNA (INDEMNITY) [id number] 2002 00:00:00 MEDICARE B-[place]: [id number] 2021 [employer] [place] 00:00:00 MEDICARE PART A AND [id number] 2021 B 00:00:00 AETNA (POS) [id number] 2020 00:00:00 Problems Condition Condition Condition Status Onset Resolution Last Treating Co mments Source Name Details Category Date Date Treatment Clinician Date Herpes Herpes Problem Active [facility] zoster Zoster 5-16 [facility] 00:00: ty 00 [...] l Clinics Acute Acute Problem Active 2021-03 [facility] upper Upper 2-29 [facility] respirator Respirator 00:00: ty y y 00 Hospita infection Infection l Clinics Nasal Nasal Problem Active 2021-03 [facility] congestion Congestion 2-29 Co m[facility]i 00:00: ty 00 [facility]osp[facility] l Clinics Cough Cough Problem Active 2021-03 [facility] 2-29 [facility] 00:00: ty 00 [facility] Clinics Anxiety Anxiety Problem Active 2021-03 [facility] 1-28 [facility] 00:00: ty [facility] Clinics 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 [facility] memory Memory 04-26 [facility] disturbanc Disturbanc 00:00: ty e e 00 Hospita Clinics Allergic Allergic Problem Active 2021-03 [facility] rhinitis Rhinitis 04-26 [facility] i 00:00: ty [facility]osp[facility] Clinics Dizziness Dizziness Problem Active 2021-03 Swe venkat 04-26 [facility] 00:00: ty [facility] Contact Contact Problem Active [facility] dermatitis Dermatitis 8-12 [facility] 00:00: ty 00 [facility] Pruritic Pruritic Problem Active [facility] rash Rash 8-12 [facility] 00:00: ty 00 [facility]osp[facility] Clinics Ganglion Ganglion Problem Active [facility] cyst of Cyst of 8 [facility] left hand Left Hand 00:00: ty 00 [facility] Depressive Depressive Problem Active S [facility] disorder Disorder 7- Commun i 00:00: ty [facility] Conjunctiv Conjunctiv Problem Active [facility] itis itis 7-25 [facility] 00:00: ty [facility] Acute Acute Problem Active [facility] sinusitis Sinusitis 7-25 Comm uni 00:00: ty 00 [facility]ospita Clinics Urinary Urinary Problem Active [facility] tract Tract 7-25 [facility] infectious Infectious 00:00: ty disease Disease 00 Hospita Clinics Diverticul Diverticul Problem Active S [facility] itis itis 4-29 [facility] 00:00: ty [facility] No known No known Disease Metho di active active st problems problems Hospit a l Allergies, Adverse Reactions, Alerts Allergy Allergy Status Severity Reaction(s) Onset Inactive Treating Comm ents Source Name Type Date Date Clinician FLUROQUI DA Active [facility] HISTORY OF 9-30 Maxine an ALLERGIC 00:00: d REACTION 00 [facility] ciproflo DA Active SV 2017-03 [facility] xacin 0-01 [place] 00:00: d 00 [facility] [place] levoflox DA Active SV 2017-03 [facility] acin [...] 0 [place] 00:[facility]: d [facility] Sulfa Propensi Active Methodi [...] l s to drug NSAIDS Allergy Active [facility] (NON-DRAGAN to Communi ROIDAL substanc ty ANTI-INF e [facility]ospita LAMMATOR l Y DRUG) Clinics QUINOLON Allergy Active [facility] ES to Communi substanc ty e Hospita l Clinics Family History Family Member Diagnosis Comments Start Date Stop Date Source Natural father Heart disease [facility] Natural mother Cancer [facility] Social History Social Habit Start Date Stop Date Quantity Comments Source Gender identity [facility] Sexual orientation [facility] Alcohol intake 2021-08-21 2021-08-21 Current [facility] 00:00:00 00:00:00 non-drinker of Hospital alcohol (finding) History of Social 2021-08-21 2021-08-[address] function 00:00:00 00:00:00 Hospital Tobacco use and 2017-06-05 2017-06-05 Smokeless Spirit[facility] exposure 00:00:00 00:00:00 tobacco non-user Hospital Sex Ass[birth year] At [birth year] [facility] 00:00[facility]00 00:00:00 Hospital Smoking Status Start Date Stop Date Source Never smoked tobacco [facility] Medications Ordered Filled Start Stop Current Ordering Indication Dosage Frequency Signature Comments Components Source Medication Medication Date Date Medication? Clinician (SIG) Name Name Stephane Calderón 40 No Q1D Stephane 40 [facility] mg/mL mg/mL 8-12 mg/mL [facility] suspension suspension [...] Insert 1 g M ethodi (ESTRACE) 08-[address] 0.01 % (0.1 00:00: [...] nightly for the first 2 weeks estradioL 2021-0 2022- No 1g Q.5W Insert 1 g M ethodi (ESTRACE) 08-22- into the st 0.01 % (0.1 00:00: 04:59 vagina 2 H [facility]ita mg/gram) 00 :00 (two) l vaginal times a cream week. Use nightly for the first 2 weeks estradioL 2021-0 2022- No 1g Q.5W Insert 1 g M ethodi (ESTRACE) 08-22- into the st 0.01 % (0.1 00:00: 04:59 vagina 2 [facility] mg/gram) 00 :00 (two) l vaginal times a cream week. Use nightly for the first 2 weeks estradioL 2021-0 2022- No 1g Q.5W Insert 1 g M ethodi (ESTRACE) 08-22- into the st 0.01 % (0.1 00:00: 04:59 vagina 2 [facility] mg/gram) 00 :00 (two) l vaginal times a cream week. Use nightly for the first 2 weeks estradioL 0 2022- No 1g Q.5W Insert 1 g [...] l hr tablet dexamethaso dexamethaso No dexamethas [facility] ne sodium ne sodium 3-03 one sodium [facility] phosphate phosphate 15:10: phosphate ty 10 mg/mL 10 mg/mL 00 10 mg/mL [facility] injection injection injection l solutionTak solutionTak solutionTa Clinics e 10 mg by e 10 mg by ke 10 mg injection injection by route. route. injection route. peg peg No peg [facility] 3350-electr 3350-electr 3-03 3350-elect [facility]i olytes 236 olytes 236 00:00: rolytes ty gram-22.74 gram-22.74 00 236 [facility] gram-6.74 gram-6.74 gram-22.74 l gram-5.86 gram-5.86 gram-6.74 Clinics gram gram gram-5.86 solution solution gram MIX AND MIX AND solution DRINK DRINK MIX AND DIRECTED DIRECTED DRINK DIRECTED lidocaine lidocaine 2020-03 No Q1D lidocaine [facility] (PF) 10 (PF) 10 0-18 (PF) 10 [...] Kenalog 40 2020-03 No Q1D Kenalog 40 [facility] mg/mL mg/mL 0-18 mg/mL [facility] suspension suspension [...] mcg/actuati route on nasal daily. spray fluticasone 0 Yes 50ug QD 1 spray Met hodi propionate 4-27 ([address] (FLONASE) 00:00: total) by [facility] 50 00 Each Nare l mcg/actuati route on nasal daily. spray fluticasone 2020-0 Yes 50ug QD 1 spray Met [facility]odi propionate 4-27 ([address] (FLONASE) 00:00: total) by [facility] 50 00 Each Nare l mcg/actuati route on nasal daily. spray fluticasone 2021-0 Yes 50ug QD 1 spray Met hodi [...] l mcg/actuati route on nasal daily. spray famotidine famotidine No famotidine [facility] 20 mg 20 mg 20 mg [facility] tablet TAKE tablet TAKE tablet ty 1 TABLET BY 1 TABLET BY TAKE 1 Hospita MOUTH EVERY MOUTH EVERY TABLET BY l 12 HOURS 12 HOURS MOUTH Clinic s EVERY 12 HOURS fluticasone fluticasone No fluticason [facility] propionate propionate e Com ricci 50 50 [...] NOSTRIL EVERY DAY hyoscyamine hyoscyamine No hyoscyamin [facility] sulfate sulfate e sulfate Comm uni 0.125 mg 0.125 mg 0.125 mg ty tablet TAKE tablet TAKE tablet Hospita 1 TABLET BY 1 TABLET BY TAKE 1 l MOUTH EVERY MOUTH EVERY TABLET BY Clinics 8 HOURS 8 HOURS MOUTH EVERY 8 HOURS levothyroxi levothyroxi No levothyrox [facility] ne 25 mcg ne 25 mcg ine 25 mcg [facility] tablet TAKE tablet TAKE tablet ty 1 TABLET BY 1 TABLET BY TAKE 1 Hospita MOUTH EVERY MOUTH EVERY TABLET BY l DAY DAY MOUTH Clinics EVERY DAY meclizine meclizine No 1 TID meclizine [facility] 25 mg 25 mg 25 mg [facility] tablet Take tablet Take tablet ty 1 tablet 3 1 tablet 3 Take 1 H ospita times a day times a day tablet 3 l by oral by oral times a Clinic s route as route as day by needed. needed. oral route as needed. ondansetron ondansetron No ondansetro [facility] 4 mg 4 mg n 4 mg [...] Xanax 0.25 No 1 BID Xanax 0.25 [facility] mg tablet mg tablet mg tablet [facility] Take 1 Take 1 Take 1 ty tablet tablet tablet Hospita twice a day twice a day twice a l by oral by oral day by Clinics route for route for oral route 14 days. 14 days. for 14 days. azelastine azelastine No azelastine [facility] 205.5 mcg 205.5 mcg 205.5 mcg [facility]i (0.15 %) (0.15 %) (0.15 %) ty nasal spray nasal spray nasal Hospita USE 1 SPRAY USE 1 SPRAY spray USE l IN EACH IN EACH 1 SPRAY IN Cli nics NOSTRIL NOSTRIL EACH TWICE DAILY TWICE DAILY NOSTRIL TWICE DAILY buspirone 5 buspirone 5 No 1 BID buspirone [facility] mg tablet mg tablet 5 mg Commu ni Take 1 Take 1 tablet ty tablet tablet Take 1 Hospita twice a day twice a day tablet l by oral by oral twice a Clinic s route for route for day by 30 days. 30 days. oral route for 30 days. dicyclomine dicyclomine No dicyclomin [facility] 20 mg 20 mg e 20 mg [...] CRAMPS OR DISCOMFORT estradiol estradiol No estradiol [facility] 0.01% (0.1 0.01% (0.1 0.01% (0.1 [facility] mg/gram) mg/gram) mg/gram) ty vaginal vaginal vaginal Hospit a cream cream cream l INSERT 1 INSERT 1 INSERT 1 Cli nics GRAM INTO GRAM INTO GRAM INTO VAGINA VAGINA VAGINA TWICE A TWICE A TWICE A WEEK AT WEEK AT WEEK AT NIGHT. NIGHT. NIGHT. famotidine famotidine No famotidine [facility] 20 mg 20 mg 20 mg [facility] tablet TAKE tablet TAKE tablet ty 1 TABLET BY 1 TABLET BY TAKE 1 Hospita MOUTH EVERY MOUTH EVERY TABLET BY l 12 HOURS 12 HOURS MOUTH Clinic s EVERY 12 HOURS fluticasone fluticasone No fluticason [facility] propionate propionate e Com ricci 50 50 [...] NOSTRIL EVERY DAY hyoscyamine hyoscyamine No hyoscyamin [facility] sulfate sulfate e sulfate Comm uni 0.125 mg 0.125 mg 0.125 mg ty tablet TAKE tablet TAKE tablet Hospita 1 TABLET BY 1 TABLET BY TAKE 1 l MOUTH EVERY MOUTH EVERY TABLET BY Clinics 8 HOURS 8 HOURS MOUTH EVERY 8 HOURS levothyroxi levothyroxi No levothyrox [facility] ne 25 mcg ne 25 mcg ine 25 mcg [facility] tablet TAKE tablet TAKE tablet ty 1 TABLET BY 1 TABLET BY TAKE 1 Hospita MOUTH EVERY MOUTH EVERY TABLET BY l DAY DAY MOUTH Clinics EVERY DAY meclizine meclizine No 1 TID meclizine [facility] 25 mg 25 mg 25 mg [facility] tablet Take tablet Take tablet ty 1 tablet 3 1 tablet 3 Take 1 H ospita times a day times a day tablet 3 l by oral by oral times a Clinic s route as route as day by needed. needed. oral route as needed. ondansetron ondansetron No ondansetro [facility] 4 mg 4 mg n 4 mg [...] Xanax 0.25 No 1 BID Xanax 0.25 [facility] mg tablet mg tablet mg tablet [facility] Take 1 Take 1 Take 1 ty tablet tablet tablet Hospita twice a day twice a day twice a l by oral by oral day by Clinics route for route for oral route 14 days. 14 days. for 14 days. alprazolam alprazolam No alprazolam [facility] 0.25 mg 0.25 mg 0.25 mg Commun i tablet TAKE tablet TAKE tablet ty 1 TABLET BY 1 TABLET BY TAKE 1 Hospita MOUTH TWICE MOUTH TWICE TABLET BY l DAILY FOR DAILY FOR MOUTH Clin ics 14 DAYS 14 DAYS TWICE DAILY FOR 14 DAYS azelastine azelastine No azelastine [facility] 205.5 mcg 205.5 mcg 205.5 mcg [facility] (0.15 %) (0.15 %) (0.15 %) ty nasal spray nasal spray nasal Hospita USE 1 SPRAY USE 1 SPRAY spray USE l IN EACH IN EACH 1 SPRAY IN Cli nics NOSTRIL NOSTRIL EACH TWICE DAILY TWICE DAILY NOSTRIL TWICE DAILY buspirone 5 buspirone 5 No buspirone [facility] mg tablet mg tablet 5 mg Commu ni TAKE 1 TAKE 1 tablet ty TABLET BY TABLET BY TAKE 1 [facility] MOUTH TWICE MOUTH TWICE TABLET BY l DAILY DAILY MOUTH Clinics TWICE DAILY estradiol estradiol No estradiol [facility] 0.01% (0.1 0.01% (0.1 0.01% (0.1 [facility] mg/gram) mg/gram) mg/gram) ty vaginal vaginal vaginal Hospit a cream cream cream l INSERT 1 INSERT 1 INSERT 1 Cli nics GRAM INTO GRAM INTO GRAM INTO VAGINA VAGINA VAGINA TWICE A TWICE A TWICE A WEEK AT WEEK AT WEEK AT NIGHT. NIGHT. NIGHT. fluticasone fluticasone No fluticason [facility] propionate propionate e Com ricci 50 50 [...] NOSTRIL EVERY DAY hyoscyamine hyoscyamine No hyoscyamin [facility] sulfate sulfate e sulfate Comm uni 0.125 mg 0.125 mg 0.125 mg ty tablet TAKE tablet TAKE tablet Hospita 1 TABLET BY 1 TABLET BY TAKE 1 l MOUTH EVERY MOUTH EVERY TABLET BY Clinics 8 HOURS 8 HOURS MOUTH EVERY 8 HOURS levothyroxi levothyroxi No levothyrox [facility] ne 25 mcg ne 25 mcg ine 25 mcg [facility] tablet TAKE tablet TAKE tablet ty 1 TABLET BY 1 TABLET BY TAKE 1 Hospita MOUTH EVERY MOUTH EVERY TABLET BY l DAY DAY MOUTH Clinics EVERY DAY meclizine meclizine No 1 TID meclizine [facility] 25 mg 25 mg 25 mg [facility] tablet Take tablet Take tablet ty 1 tablet 3 1 tablet 3 Take 1 H ospita times a day times a day tablet 3 l by oral by oral times a Clinic s route as route as day by needed. needed. oral route as needed. ondansetron ondansetron No ondansetro [facility] 4 mg 4 mg n 4 mg [...] NAUSEA valacyclovi valacyclovi No 1 TID valacyclov [facility] r 1 gram r 1 gram ir [...] days. Xifaxan 550 Xifaxan 550 No Xifaxan [facility] mg tablet mg tablet 550 mg Com ricci tablet ty Hospita l Clinics acyclovir 5 acyclovir 5 No acyclovir [facility] % topical % topical 5 % Commu ni ointment ointment topical ty APPLY TO APPLY TO ointment [facility] THE THE APPLY TO l AFFECTED AFFECTED THE Clinics AREA EVERY AREA EVERY AFFECTED 2 HOURS 2 HOURS AREA EVERY DURING DURING 2 HOURS AWAKE HOURS AWAKE HOURS DURING FOR 4 DAYS FOR 4 DAYS AWAKE HOURS FOR 4 DAYS amoxicillin amoxicillin No amoxicilli [facility] 500 500 n 500 [facility] mg-potassiu mg-potassiu [...] ty kit TEST kit TEST Test kit [facility] DIRECTED DIRECTED TEST l TODAY TODAY DIRECTED Clinics TODAY cephalexin cephalexin No cephalexin [facility] 500 mg 500 mg 500 mg [facility] capsule capsule capsule ty TAKE 1 TAKE 1 TAKE 1 Hospita CAPSULE BY CAPSULE BY CAPSULE BY l MOUTH TWICE MOUTH TWICE MOUTH Clinics DAILY DAILY TWICE DAILY estradiol estradiol No estradiol [facility] 0.01% (0.1 0.01% (0.1 0.01% (0.1 [facility] mg/gram) mg/gram) mg/gram) ty vaginal vaginal vaginal Hospit a cream cream cream l INSERT 1 INSERT 1 INSERT 1 Cli nics GRAM INTO GRAM INTO GRAM INTO VAGINA VAGINA VAGINA TWICE A TWICE A TWICE A WEEK AT WEEK AT WEEK AT NIGHT. NIGHT. NIGHT. fluconazole fluconazole No fluconazol [facility] 150 mg 150 mg e 150 mg [facility] tablet tablet tablet ty Hospita l Clinics hydroxyzine hydroxyzine No hydroxyzin [facility] HCl 25 mg HCl 25 mg e [...] Kenalog 40 No 60mg Q1D Kenalog 40 [facility] mg/mL mg/mL mg/mL [facility] suspension suspension suspension ty for for for Hospita injection injection injection l Take 60 mg Take 60 mg Take 60 mg Clinics every day every day every day by by by injection injection injection route. route. route. metoprolol metoprolol No metoprolol [facility] succinate succinate succinate [facility] ER 25 mg ER 25 mg ER 25 mg ty tablet,exte tablet,exte tablet,ext Hospita nded nded ended l release 24 release 24 release 24 Clinics hr TAKE 1 hr TAKE 1 hr TAKE 1 TABLET BY TABLET BY TABLET BY MOUTH EVERY MOUTH EVERY MOUTH DAY DAY EVERY DAY metronidazo metronidazo No metronidaz [facility] le 500 mg le 500 mg ole 500 mg [facility]i tablet TAKE tablet TAKE tablet ty 1 TABLET BY 1 TABLET BY TAKE 1 Hospita MOUTH EVERY MOUTH EVERY TABLET BY l 8 HOURS FOR 8 HOURS FOR MOUTH Clinics 7 DAYS 7 DAYS EVERY 8 HOURS FOR 7 DAYS omeprazole omeprazole No omeprazole [facility] 20 mg 20 mg 20 mg [facility] capsule,del capsule,del capsule,de ty ayed ayed layed Hospita release release release l TAKE 1 TAKE 1 TAKE 1 Clinics CAPSULE BY CAPSULE BY CAPSULE BY MOUTH DAILY MOUTH DAILY MOUTH DAILY ondansetron ondansetron No ondansetro [facility] 4 mg 4 mg n 4 mg [...] 6 DAYS NEEDED paroxetine paroxetine No paroxetine [facility] ER 25 mg ER 25 mg ER 25 mg Com ricci tablet,exte tablet,exte tablet,ext ty nded nded ended Hospita release 24 release 24 release 24 l hr TAKE 1 hr TAKE 1 hr TAKE 1 Clinics TABLET BY TABLET BY TABLET BY MOUTH EVERY MOUTH EVERY MOUTH DAY DAY EVERY DAY tobramycin tobramycin No tobramycin [facility] 0.3 0.3 0.3 [facility] %-dexametha %-dexametha %-dexameth [...] FOR 5 DAYS triamcinolo triamcinolo No triamcinol [facility] ne ne one [facility]i acetonide acetonide acetonide [...] FOR 7 DAYS trimethopri trimethopri No trimethopr [facility] m 100 mg m 100 mg im 100 mg Co [facility] tablet TAKE tablet TAKE tablet ty 1 TABLET BY 1 TABLET BY TAKE 1 Hospita MOUTH EVERY MOUTH EVERY TABLET BY l DAY DAY MOUTH Clinics EVERY DAY valacyclovi valacyclovi No valacyclov [facility] r 1 gram r 1 gram ir 1 gram [facility] tablet TAKE tablet TAKE tablet ty 1 TABLET BY 1 TABLET BY TAKE 1 Hospita MOUTH TWICE MOUTH TWICE TABLET BY l DAILY prn DAILY prn MOUTH Clin ics TWICE DAILY prn amoxicillin amoxicillin No amoxicilli [facility] [phone] n 875 Communi mg-potassiu mg-potassiu mg-potassi ty m m um Hospita clavulanate clavulanate clavulanat l 125 mg 125 mg e 125 mg Clinics tablet tablet tablet Flagyl 500 Flagyl 500 No 1 Q8H Flagyl 500 [facility] mg tablet mg tablet mg tablet [facility]i Take 1 Take 1 Take 1 ty tablet tablet tablet Hospita every 8 every 8 every 8 l hours by hours by hours by Cli nics oral route. oral route. oral route. prednisone prednisone No 1 BID prednisone [facility] 20 mg 20 mg 20 mg [facility] tablet Take tablet Take tablet ty 1 tablet 1 tablet Take 1 Hospi ta twice a day twice a day tablet l by oral by oral twice a Clinic s route for 5 route for 5 day by days. days. oral route for 5 days. Valtrex 1 Valtrex 1 No 1 TID Valtrex 1 [facility] gram tablet gram tablet gram C [facility]i Take 1 Take 1 tablet ty tablet 3 tablet 3 Take 1 Hospi ta times a day times a day tablet 3 l by oral by oral times a Clinic s route for 7 route for 7 day by days. days. oral route for 7 days. Vistaril 25 Vistaril 25 No 1capsul Q7H Vistaril [facility] mg capsule mg capsule e(s) 25 mg Co [facility]i Take 1 Take 1 capsule ty capsule capsule Take 1 Hospita every 6-8 every 6-8 capsule l hours by hours by every 6-8 Cl inics oral route oral route hours by as needed. as needed. oral route as needed. dicyclomine dicyclomine No 1 TID dicyclomin [facility] 20 mg 20 mg e 20 mg [facility] tablet Take tablet Take tablet ty 1 tablet 3 1 tablet 3 Take 1 H ospita times a day times a day tablet 3 l by oral by oral times a Clinic s route as route as day by needed. needed. oral route as needed. hyoscyamine hyoscyamine No hyoscyamin [facility] 0.125 mg 0.125 mg e 0.125 mg C om[facility]i sublingual sublingual sublingual ty tablet tablet tablet Hospita l Clinics ivermectin ivermectin No 2 BID ivermectin [facility] 3 mg tablet 3 mg tablet 3 mg C om[facility]i Take 2 Take 2 tablet ty tablets tablets Take 2 Hospita twice a day twice a day tablets l by oral by oral twice a Clinic s route. route. day by oral route. Denavir 1 % Denavir 1 % No Denavir 1 [facility] topical topical % topical Comm uni cream APPLY cream APPLY cream ty TO THE TO THE APPLY TO Hospita AFFECTED AFFECTED THE l AREA(S) BY AREA(S) BY AFFECTED Clinics TOPICAL TOPICAL AREA(S) BY ROUTE EVERY ROUTE EVERY TOPICAL 2 HOURS 2 HOURS ROUTE DURING DURING EVERY 2 WAKING WAKING HOURS HOURS FOR 4 HOURS FOR 4 WAKING HOURS FOR 4 DAYS [facility] Once Daily Once Daily Once Daily Communi [...] DAILY valacyclovi valacyclovi No 1 TID valacyclov [facility] r 1 gram r 1 gram ir [...] % Denavir 1 % No Denavir 1 [facility] topical topical % topical Comm uni cream APPLY cream APPLY cream ty TO THE TO THE APPLY TO [facility] AFFECTED AFFECTED THE l AREA(S) BY AREA(S) BY AFFECTED Clinics TOPICAL TOPICAL AREA(S) BY ROUTE EVERY ROUTE EVERY TOPICAL 2 HOURS 2 HOURS ROUTE DURING DURING EVERY 2 WAKING WAKING HOURS HOURS FOR 4 HOURS FOR 4 WAKING HOURS FOR 4 DAYS [facility] Once Daily Once Daily Once Daily Communi [...] DAILY valacyclovi valacyclovi No 1 TID valacyclov [facility] r 1 gram r 1 gram ir [...] days. acyclovir 5 acyclovir 5 No acyclovir [facility] % topical % topical 5 % Commu [...] DAYS cefdinir cefdinir No 1capsul Q12H cefdinir [facility] 300 mg 300 mg e(s) 300 mg [facility] capsule capsule capsule ty Take 1 Take 1 Take 1 Hospita capsule capsule capsule l every 12 every 12 every 12 Cli nics hours by hours by hours by oral route. oral route. oral route. Denavir 1 % Denavir 1 % No Denavir 1 [facility] topical topical % topical Comm uni cream [...] FOR 4 DAYS hyoscyamine hyoscyamine No hyoscyamin [facility] 0.125 mg 0.125 mg e 0.125 mg C [facility] disintegrat disintegrat disintegra ty ing tablet ing tablet ting [facility] tablet l Clinics Pataday Pataday No Pataday [facility] Once Daily Once Daily Once Daily [facility] Relief 0.2 Relief 0.2 Relief 0.2 ty % eye drops % eye drops % eye Hospita INSTILL 1 INSTILL 1 drops l DROP INTO DROP INTO INSTILL 1 Clinics AFFECTED AFFECTED DROP INTO EYE(S) BY EYE(S) BY AFFECTED OPHTHALMIC OPHTHALMIC EYE(S) BY ROUTE ONCE ROUTE ONCE OPHTHALMIC DAILY DAILY ROUTE ONCE DAILY sulfamethox sulfamethox No sulfametho [facility] azole 800 azole 800 xazole 800 [facility]i mg-trimetho mg-trimetho mg-trimeth ty prim 160 mg prim 160 mg oprim 160 Hospita tablet tablet mg tablet l Clinics valacyclovi valacyclovi No 1 TID valacyclov [facility] r 1 gram r 1 gram ir [...] days. acyclovir 5 acyclovir 5 No acyclovir [facility] % topical % topical 5 % Commu ni ointment ointment topical ty APPLY TO APPLY TO ointment [facility] THE THE APPLY TO l AFFECTED AFFECTED THE Clinics AREA EVERY AREA EVERY AFFECTED 2 HOURS 2 HOURS AREA EVERY DURING DURING 2 HOURS AWAKE HOURS AWAKE HOURS DURING FOR 4 DAYS FOR 4 DAYS AWAKE HOURS FOR 4 DAYS carbamazepi carbamazepi No carbamazep [facility] ne ER 100 ne ER 100 ine ER 100 Communi mg mg mg ty tablet,exte tablet,exte tablet,ext Hospita nded nded ended l release,12 release,12 release,12 Clinics hr TAKE 1 hr TAKE 1 hr TAKE 1 TABLET BY TABLET BY TABLET BY MOUTH EVERY MOUTH EVERY MOUTH 12 HOURS 12 HOURS EVERY 12 HOURS hyoscyamine hyoscyamine No hyoscyamin [facility] 0.125 mg 0.125 mg e 0.125 mg C [facility] disintegrat disintegrat disintegra ty ing tablet ing tablet ting [facility] tablet l Clinics valacyclovi valacyclovi No valacyclov [facility] r 1 gram r 1 gram ir 1 gram Co [facility] tablet TAKE tablet TAKE tablet ty 1 TABLET BY 1 TABLET BY TAKE 1 Hospita MOUTH EVERY MOUTH EVERY TABLET BY l DAY FOR 30 DAY FOR 30 MOUTH Cl inics DAYS DAYS EVERY DAY FOR 30 DAYS acyclovir 5 acyclovir 5 No acyclovir [facility] % topical % topical 5 % Commu [...] DAYS clonidine clonidine No 1 Q1D clonidine [facility] HCl ER 0.1 HCl ER 0.1 HCl [...] evening. DripDrop DripDrop No 1packet Q1D DripDrop [facility] 305 mg-175 305 mg-175 (s) 305 mg-175 [facility]i mg-70 mg mg-70 mg mg-70 mg ty oral powder oral powder oral H [facility]ita packet Take packet Take powder l 1 packet 1 packet packet Clini cs every day every day Take 1 by oral by oral packet route as route as every day needed. needed. by oral route as needed. hyoscyamine hyoscyamine No hyoscyamin [facility] 0.125 mg 0.125 mg e 0.125 mg C [facility] disintegrat disintegrat disintegra ty ing tablet ing tablet ting [facility] tablet l Clinics Kenalog 40 Kenalog 40 No .5mL Q1D Kenalog 40 [facility] mg/mL mg/mL mg/mL [facility] suspension suspension suspension ty for for for Hospita injection injection injection l Take 0.5 mL Take 0.5 mL Take 0.5 Clinics every day every day mL every by by day by injection injection injection route for 1 route for 1 route for day. day. 1 day. lidocaine lidocaine No 2mL Q1D lidocaine [facility] (PF) 10 (PF) 10 (PF) 10 [facility] i mg/mL (1 %) mg/mL (1 %) mg/mL (1 ty injection injection %) Hospi ta solution solution injection l Take 2 mL Take 2 mL solution C linics every day every day Take 2 mL by by every day injection injection by route. route. injection route. pantoprazol pantoprazol No 1 Q1D pantoprazo [facility] e 40 mg e 40 mg le 40 mg [facility] ni tablet,hodan tablet,hodan tablet,del ty yed release yed release ayed [facility] Take 1 Take 1 release l tablet tablet Take 1 Clinics every day every day tablet by oral by oral every day route. route. by oral route. valacyclovi valacyclovi No valacyclov [facility] r 1 gram r 1 gram ir 1 gram [facility] tablet TAKE tablet TAKE tablet ty 1 TABLET BY 1 TABLET BY TAKE 1 Hospita MOUTH EVERY MOUTH EVERY TABLET BY l DAY FOR 30 DAY FOR 30 MOUTH Cl inics DAYS DAYS EVERY DAY FOR 30 DAYS Artificial Artificial No 1drop(s Q1D Artificial [facility] Tears Tears ) Tears [facility] (polyvinyl (polyvinyl (polyvinyl ty alcohol) alcohol) alcohol) [facility] 1.4 % eye 1.4 % eye 1.4 % eye l drops Apply drops Apply drops Clinics 1 drop 1 drop Apply 1 every day every day drop every by by day by ophthalmic ophthalmic ophthalmic route. route. route. azithromyci azithromyci No 1 Q1D azithromyc [facility] n 500 mg n 500 mg in 500 mg [facility] tablet Take tablet Take tablet ty 1 tablet 1 tablet Take 1 Hospi ta every day every day tablet l by oral by oral every day Clin ics route for 5 route for 5 by oral days. days. route for 5 days. DripDrop DripDrop No 1packet Q1D DripDrop [facility] 305 mg-175 305 mg-175 (s) 305 mg-175 [facility] mg-70 mg mg-70 mg mg-70 mg ty oral powder oral powder oral [facility] packet Take packet Take powder l 1 packet 1 packet packet Clini cs every day every day Take 1 by oral by oral packet route as route as every day needed. needed. by oral route as needed. hyoscyamine hyoscyamine No hyoscyamin [facility] 0.125 mg 0.125 mg e 0.125 mg [facility] disintegrat disintegrat disintegra ty ing tablet ing tablet ting [facility] tablet l Clinics pantoprazol pantoprazol No pantoprazo [facility] e 40 mg e 40 mg le 40 mg [facility] tablet,hodan tablet,hodan tablet,del ty yed release yed release ayed [facility] TAKE 1 TAKE 1 release l TABLET BY TABLET BY TAKE 1 Cli nics MOUTH EVERY MOUTH EVERY TABLET BY DAY DAY MOUTH EVERY DAY acetylcyste acetylcyste No 1capsul BID acetylcyst [facility] ine 600 mg ine 600 mg e(s) eine 600 [facility] capsule capsule mg capsule ty Take 1 Take 1 Take 1 Hospita capsule capsule capsule l twice a day twice a day twice a Clinics by oral by oral day by route. route. oral route. Artificial Artificial No 1drop(s Q1D Artificial [facility] Tears Tears ) Tears [facility] (polyvinyl (polyvinyl (polyvinyl ty alcohol) alcohol) alcohol) [facility] 1.4 % eye 1.4 % eye 1.4 % eye l drops Apply drops Apply drops Clinics 1 drop 1 drop Apply 1 every day every day drop every by by day by ophthalmic ophthalmic ophthalmic route. route. route. Effexor XR Effexor XR No 1capsul Q1D Effexor XR [facility] 75 mg 75 mg e(s) 75 mg [facility] capsule,ext capsule,ext capsule,ex ty ended ended tended Hospita release release release l Take 1 Take 1 Take 1 Clinics capsule capsule capsule every day every day every day by oral by oral by oral route for route for route for 90 days. 90 days. 90 days. hyoscyamine hyoscyamine No hyoscyamin [facility] 0.125 mg 0.125 mg e 0.125 mg [facility] disintegrat disintegrat disintegra ty ing tablet ing tablet ting [facility] tablet l Clin[facility] pantoprazol pantoprazol No pantoprazo [facility] e 40 mg e 40 mg le 40 mg [facility] tablet,hodan tablet,hodan tablet,del ty yed release yed release ayed [facility] TAKE 1 TAKE 1 release l TABLET BY TABLET BY TAKE 1 Cli nics MOUTH EVERY MOUTH EVERY TABLET BY DAY DAY MOUTH EVERY DAY acetylcyste acetylcyste No 1capsul BID acetylcyst [facility] ine 600 mg ine 600 mg e(s) eine 600 [facility] capsule capsule mg capsule ty Take 1 Take 1 Take 1 [facility]ospita capsule capsule capsule l twice a day twice a day twice a Clinics by oral by oral day by route. route. oral route. Artificial Artificial No 1drop(s Q1D Artificial [facility] Tears Tears ) Tears [facility] (polyvinyl (polyvinyl (polyvinyl ty alcohol) alcohol) alcohol) [facility] 1.4 % eye 1.4 % eye 1.4 % eye l drops Apply drops Apply drops Clinics 1 drop 1 drop Apply 1 every day every day drop every by by day by ophthalmic ophthalmic ophthalmic route. route. route. Effexor XR Effexor XR No 1capsul Q1D Effexor XR [facility] 75 mg 75 mg e(s) 75 mg [facility] capsule,ext capsule,ext capsule,ex ty ended ended tended Hospita release release release l Take 1 Take 1 Take 1 Clinics capsule capsule capsule every day every day every day by oral by oral by oral route for route for route for 90 days. 90 days. 90 days. hyoscyamine hyoscyamine No hyoscyamin [facility] 0.125 mg 0.125 mg e 0.125 mg [facility] disintegrat disintegrat disintegra ty ing tablet ing tablet ting [facility] tablet l Clin[facility] pantoprazol pantoprazol No pantoprazo [facility] e 40 mg e 40 mg le 40 mg [facility] tablet,hodan tablet,hodan tablet,del ty yed release yed release ayed [facility] TAKE 1 TAKE 1 release l TABLET BY TABLET BY TAKE 1 Cli nics MOUTH EVERY MOUTH EVERY TABLET BY DAY DAY MOUTH EVERY DAY acyclovir acyclovir No 1 Q1D acyclovir [facility] 400 mg 400 mg 400 mg [facility] tablet Take tablet Take tablet ty 1 tablet 1 tablet Take 1 Hospi ta every day every day tablet l by oral by oral every day Clin ics route for route for by oral 30 days. 30 days. route for 30 days. amoxicillin amoxicillin No amoxicilli [facility] [phone] 875 [facility] mg-potassiu mg-potassiu mg-potassi ty m m um [facility]ospita clavulanate clavulanate clavulanat l 125 mg 125 mg e 125 mg Clinics tablet TAKE tablet TAKE tablet 1 TABLET BY 1 TABLET BY TAKE 1 MOUTH EVERY MOUTH EVERY TABLET BY 12 HOURS 12 HOURS MOUTH EVERY 12 HOURS metronidazo metronidazo No metronidaz [facility] le 500 mg le 500 mg ole 500 mg [facility] tablet TAKE tablet TAKE tablet ty 1 TABLET BY 1 TABLET BY TAKE 1 Hospita MOUTH EVERY MOUTH EVERY TABLET BY l 8 HOURS 8 HOURS MOUTH Clinics EVERY 8 HOURS ondansetron ondansetron No ondansetro [facility] 4 mg 4 mg n 4 mg [facility] disintegrat disintegrat disintegra ty ing tablet ing tablet ting [facility] tablet l [facility] Xifaxan 550 Xifaxan 550 No 1 BID Xifaxan [facility] mg tablet mg tablet 550 mg Com ricci Take 1 Take 1 tablet ty tablet tablet Take 1 Hospita twice a day twice a day tablet l by oral by oral twice a Clinic s route. route. day by oral route. acyclovir acyclovir No acyclovir [facility] 400 mg 400 mg 400 mg [facility] [...] by oral route. metronidazo metronidazo No metronidaz [facility] le 500 mg le 500 mg ole 500 mg [facility] tablet TAKE tablet TAKE tablet ty 1 TABLET BY 1 TABLET BY TAKE 1 Hospita MOUTH EVERY MOUTH EVERY TABLET BY l 8 HOURS 8 HOURS MOUTH Clinics EVERY 8 HOURS ondansetron ondansetron No ondansetro [facility] 4 mg 4 mg n 4 mg [facility] disintegrat disintegrat disintegra ty ing tablet ing tablet ting [facility] tablet l Clinics pantoprazol pantoprazol No pantoprazo [facility] e 40 mg e 40 mg le 40 mg [facility] ni tablet,hodan tablet,hodan tablet,del ty yed release yed release ayed [facility] release l Clinics peg peg No peg [facility] 3350-electr 3350-electr 3350-elect [facility] olytes 236 olytes 236 rolytes ty gram-22.74 gram-22.74 236 [facility] gram-6.74 gram-6.74 gram-22.74 l gram-5.86 gram-5.86 gram-6.74 Clinics gram gram gram-5.86 solution solution gram MIX AND MIX AND solution DRINK DRINK MIX AND DIRECTED DIRECTED DRINK DIRECTED sucralfate sucralfate No 1 QID sucralfate [facility] 1 gram 1 gram 1 gram [facility] tablet Take tablet Take tablet ty 1 tablet 4 1 tablet 4 Take 1 [facility] times a day times a day tablet 4 l by oral by oral times a Clinic s route. route. day by oral route. venlafaxine venlafaxine No venlafaxin [facility] ER 75 mg ER 75 mg e ER 75 mg [facility] capsule,ext capsule,ext capsule,ex ty ended ended tended Hospita release 24 release 24 release 24 l hr hr hr Clinics Xifaxan 550 Xifaxan 550 No Xifaxan [facility] mg tablet mg tablet 550 mg Com ricci Take 1 Take 1 tablet ty tablet tablet Take 1 Hospita twice a day twice a day tablet l by oral by oral twice a Clinic s route. route. day by oral route. dexamethaso dexamethaso No 10mg dexamethas [facility] ne sodium ne sodium one sodium [facility] phosphate phosphate phosphate ty 10 mg/mL 10 mg/mL 10 mg/mL [facility] injection injection injection l solution solution solution Cli nics Take 10 mg Take 10 mg Take 10 mg by by by injection injection injection route. route. route. dicyclomine dicyclomine No 1 TID dicyclomin [facility] 20 mg 20 mg e 20 mg [facility] tablet Take tablet Take tablet ty 1 tablet 3 1 tablet 3 Take 1 [facility] times a day times a day tablet 3 l by oral by oral times a Clinic s route as route as day by needed. needed. oral route as needed. gabapentin gabapentin No 1capsul BID gabapentin [facility] 300 mg 300 mg e(s) 300 mg [facility] capsule capsule capsule ty Take 1 Take 1 Take 1 Hospita capsule capsule capsule l twice a day twice a day twice a Clinics by oral by oral day by route. route. oral route. montelukast montelukast No 1 Q1D montelukas [facility] 10 mg 10 mg t 10 mg [facility] tablet Take tablet Take tablet ty 1 tablet 1 tablet Take 1 Hospi ta every day every day tablet l by oral by oral every day Clin ics route. route. by oral route. acyclovir 5 acyclovir 5 No acyclovir [facility] % topical % topical 5 % Commu [...] Bactrim DS No 1 Q12H Bactrim DS [facility] 800 mg-160 800 mg-160 800 mg-160 [facility] mg tablet mg tablet mg tablet ty Take 1 Take 1 Take 1 Hospita tablet tablet tablet l every 12 every 12 every 12 Cli nics hours by hours by hours by oral route oral route oral route for 10 for 10 for 10 days. days. days. diclofenac diclofenac No diclofenac [facility] 1 % topical 1 % topical 1 [...] route. valacyclovi valacyclovi No 1 BID valacyclov [facility] r 1 gram r 1 gram ir 1 gram [facility] tablet Take tablet Take tablet ty 1 tablet 1 tablet Take 1 Hospi ta twice a day twice a day tablet l by oral by oral twice a Clinic s route. route. day by oral route. acyclovir 5 acyclovir 5 No acyclovir [facility] % topical % topical 5 % [facility] ointment ointment topical ty APPLY TO APPLY TO ointment [facility] THE THE APPLY TO l AFFECTED AFFECTED THE Clinics AREA EVERY AREA EVERY AFFECTED 2 HOURS 2 HOURS AREA EVERY DURING DURING 2 HOURS AWAKE HOURS AWAKE HOURS DURING FOR 4 DAYS FOR 4 DAYS AWAKE HOURS FOR 4 DAYS diclofenac diclofenac No diclofenac [facility] 1 % topical 1 % topical 1 % [facility] gel APPLY 2 gel APPLY 2 topical ty GRAMS GRAMS gel APPLY Hospita TOPICALLY TOPICALLY 2 GRAMS l TO THE TO THE TOPICALLY Clinic s AFFECTED AFFECTED TO THE AREA FOUR AREA FOUR AFFECTED TIMES DAILY TIMES DAILY AREA FOUR TIMES DAILY phenazopyri phenazopyri No phenazopyr [facility] dine 200 mg dine 200 mg idine 200 [facility] tablet TAKE tablet TAKE mg tablet ty 1 TABLET BY 1 TABLET BY TAKE 1 Hospita MOUTH EVERY MOUTH EVERY TABLET BY l 8 HOURS 8 HOURS MOUTH Clinics EVERY 8 HOURS sulfamethox sulfamethox No sulfametho [facility] azole 800 azole 800 xazole 800 [facility] mg-trimetho mg-trimetho mg-trimeth ty prim 160 mg prim 160 mg oprim 160 [facility]ospita tablet TAKE tablet TAKE mg tablet l 1 TABLET BY 1 TABLET BY TAKE 1 Clinics MOUTH EVERY MOUTH EVERY TABLET BY 12 HOURS 12 HOURS MOUTH FOR 10 DAYS FOR 10 DAYS EVERY 12 HOURS FOR 10 DAYS valacyclovi valacyclovi No valacyclov [facility] r 1 gram r 1 gram ir 1 gram [facility] tablet TAKE tablet TAKE tablet ty 1 TABLET BY 1 TABLET BY TAKE 1 [facility]ospita MOUTH TWICE MOUTH TWICE TABLET BY l DAILY DAILY MOUTH Clinics TWICE DAILY acyclovir 5 acyclovir 5 No acyclovir [facility] % topical % topical 5 % [facility] ni ointment ointment topical ty APPLY TO APPLY TO ointment [facility] THE THE APPLY TO l AFFECTED AFFECTED THE Clinics AREA EVERY AREA EVERY AFFECTED 2 HOURS 2 HOURS AREA EVERY DURING DURING 2 HOURS AWAKE HOURS AWAKE HOURS DURING FOR 4 DAYS FOR 4 DAYS AWAKE HOURS FOR 4 DAYS cefuroxime cefuroxime No cefuroxime [facility] axetil 500 axetil 500 axetil 500 [facility] mg tablet mg tablet mg tablet ty TAKE 1 TAKE 1 TAKE 1 [facility]ospita TABLET BY TABLET BY TABLET BY l MOUTH EVERY MOUTH EVERY MOUTH Clinics 12 HOURS 12 HOURS EVERY 12 FOR 7 DAYS FOR 7 DAYS HOURS FOR 7 DAYS diclofenac diclofenac No diclofenac [facility] 1 % topical 1 % topical 1 % [facility] gel APPLY 2 gel APPLY 2 topical ty GRAMS GRAMS gel APPLY [facility]ospita TOPICALLY TOPICALLY 2 GRAMS l TO THE TO THE TOPICALLY Clinic s AFFECTED AFFECTED TO THE AREA FOUR AREA FOUR AFFECTED TIMES DAILY TIMES DAILY AREA FOUR TIMES DAILY dicyclomine dicyclomine No dicyclomin [facility] 20 mg 20 mg e 20 mg [facility] tablet TAKE tablet TAKE tablet ty 1 TABLET BY 1 TABLET BY TAKE 1 [facility]ospita MOUTH 4 MOUTH 4 TABLET BY l TIMES A DAY TIMES A DAY MOUTH 4 Clinics NEEDED NEEDED TIMES A DAY NEEDED phenazopyri phenazopyri No phenazopyr [facility] dine 200 mg dine 200 mg idine 200 [facility] tablet TAKE tablet TAKE mg tablet ty 1 TABLET BY 1 TABLET BY TAKE 1 [facility]ospita MOUTH EVERY MOUTH EVERY TABLET BY l 8 HOURS FOR 8 HOURS FOR MOUTH Clinics 2 DAYS 2 DAYS EVERY 8 HOURS FOR 2 DAYS sulfamethox sulfamethox No sulfametho [facility] azole 800 azole 800 xazole 800 [facility] mg-trimetho mg-trimetho mg-trimeth ty prim 160 mg prim 160 mg oprim 160 [facility]osp[facility] tablet TAKE tablet TAKE mg tablet l 1 TABLET BY 1 TABLET BY TAKE 1 Clinics MOUTH EVERY MOUTH EVERY TABLET BY 12 HOURS 12 HOURS MOUTH FOR 10 DAYS FOR 10 DAYS EVERY 12 HOURS FOR 10 DAYS valacyclovi valacyclovi No valacyclov [facility] r 1 gram r 1 gram ir 1 gram [facility] tablet TAKE tablet TAKE tablet ty 1 TABLET BY 1 TABLET BY TAKE 1 [facility]ospita MOUTH TWICE MOUTH TWICE TABLET BY l DAILY DAILY MOUTH Clinics TWICE DAILY acyclovir 5 acyclovir 5 No acyclovir [facility] % topical % topical 5 % [facility] ointment ointment topical ty APPLY TO APPLY TO ointment [facility] THE THE APPLY TO l AFFECTED AFFECTED THE Clinics AREA EVERY AREA EVERY AFFECTED 2 HOURS 2 HOURS AREA EVERY DURING DURING 2 HOURS AWAKE HOURS AWAKE HOURS DURING FOR 4 DAYS FOR 4 DAYS AWAKE HOURS FOR 4 DAYS amoxicillin amoxicillin No amoxicilli [facility] 500 500 n 500 [facility] mg-potassiu mg-potassiu [...] FOR 7 DAYS amoxicillin amoxicillin No amoxicilli [facility] [phone] n 875 [facility] mg-potassiu mg-potassiu mg-potassi ty m m um [facility]ospita clavulanate clavulanate clavulanat l 125 mg 125 mg e 125 mg Clinics tablet TAKE tablet TAKE tablet 1 TABLET BY 1 TABLET BY TAKE 1 MOUTH TWICE MOUTH TWICE TABLET BY DAILY FOR 7 DAILY FOR 7 MOUTH DAYS DAYS TWICE DAILY FOR 7 DAYS cefuroxime cefuroxime No cefuroxime [facility] axetil 500 axetil 500 axetil 500 [facility] mg tablet mg tablet mg tablet ty TAKE 1 TAKE 1 TAKE 1 [facility]ospita TABLET BY TABLET BY TABLET BY l MOUTH EVERY MOUTH EVERY MOUTH Clinics 12 HOURS 12 HOURS EVERY 12 FOR 7 DAYS FOR 7 DAYS HOURS FOR 7 DAYS diclofenac diclofenac No diclofenac [facility] 1 % topical 1 % topical 1 % [facility] gel APPLY 2 gel APPLY 2 topical ty GRAMS GRAMS gel APPLY [facility]ospita TOPICALLY TOPICALLY 2 GRAMS l TO THE TO THE TOPICALLY Clinic s AFFECTED AFFECTED TO THE AREA FOUR AREA FOUR AFFECTED TIMES DAILY TIMES DAILY AREA FOUR TIMES DAILY dicyclomine dicyclomine No dicyclomin [facility] 20 mg 20 mg e 20 mg [facility] tablet TAKE tablet TAKE tablet ty 1 TABLET BY 1 TABLET BY TAKE 1 Hospita MOUTH 4 MOUTH 4 TABLET BY l TIMES A DAY TIMES A DAY MOUTH 4 Clinics NEEDED NEEDED TIMES A DAY NEEDED estradiol estradiol No estradiol [facility] 0.01% (0.1 0.01% (0.1 0.01% (0.1 [facility] mg/gram) mg/gram) mg/gram) ty vaginal vaginal vaginal Hospit a cream cream cream l INSERT 1 INSERT 1 INSERT 1 Cli nics GRAM INTO GRAM INTO GRAM INTO VAGINA VAGINA VAGINA TWICE A TWICE A TWICE A WEEK AT WEEK AT WEEK AT NIGHT. NIGHT. NIGHT. fluconazole fluconazole No fluconazol [facility] 150 mg 150 mg e 150 mg [facility] tablet TAKE tablet TAKE tablet ty 1 TABLET BY 1 TABLET BY TAKE 1 [facility]ospita MOUTH EVERY MOUTH EVERY TABLET BY l 72 HOURS 72 HOURS MOUTH Clinic s EVERY 72 HOURS metoprolol metoprolol No metoprolol [facility] succinate succinate succinate [facility] ER 25 mg ER 25 mg ER 25 mg ty tablet,exte tablet,exte tablet,ext Hospita nded nded ended l release 24 release 24 release 24 Clinics hr TAKE 1 hr TAKE 1 hr TAKE 1 TABLET BY TABLET BY TABLET BY MOUTH EVERY MOUTH EVERY MOUTH DAY DAY EVERY DAY nitrofurant nitrofurant No nitrofuran [facility] oin oin toin [facility] monohydrate monohydrate monohydrat ty /macrocryst /macrocryst e/macrocry Hospita als 100 mg als 100 mg stals 100 l capsule capsule mg capsule Cli nics oxybutynin oxybutynin No oxybutynin [facility] chloride ER chloride ER chloride [facility] 5 mg 5 mg ER 5 mg ty tablet,exte tablet,exte tablet,ext Hospita nded nded ended l release 24 release 24 release 24 Clinics hr TAKE 1 hr TAKE 1 hr TAKE 1 TABLET BY TABLET BY TABLET BY MOUTH EVERY MOUTH EVERY MOUTH DAY DAY EVERY DAY phenazopyri phenazopyri No phenazopyr [facility] dine 200 mg dine 200 mg idine 200 [facility] tablet TAKE tablet TAKE mg tablet ty 1 TABLET BY 1 TABLET BY TAKE 1 [facility]ospita MOUTH EVERY MOUTH EVERY TABLET BY l 8 HOURS FOR 8 HOURS FOR MOUTH Clinics 2 DAYS 2 DAYS EVERY 8 HOURS FOR 2 DAYS sulfamethox sulfamethox No sulfametho [facility] azole 800 azole 800 xazole 800 Commun[facility] [...] Suprax 400 No 1capsul Q1D Suprax 400 [facility] mg capsule mg capsule e(s) mg capsule [facility] Take 1 Take 1 Take 1 ty capsule capsule capsule Hospit a every day every day every day l by oral by oral by oral Clinic s route for 7 route for 7 route for days. days. 7 days. valacyclovi valacyclovi No valacyclov [facility] r 1 gram r 1 gram ir 1 gram [facility] tablet TAKE tablet TAKE tablet ty 1 TABLET BY 1 TABLET BY TAKE 1 Hospita MOUTH TWICE MOUTH TWICE TABLET BY l DAILY DAILY MOUTH Clinics TWICE DAILY acyclovir 5 acyclovir 5 No acyclovir [facility] % topical % topical 5 % [facility] ointment ointment topical ty APPLY TO APPLY TO ointment [facility] THE THE APPLY TO l AFFECTED AFFECTED THE Clinics AREA EVERY AREA EVERY AFFECTED 2 HOURS 2 HOURS AREA EVERY DURING DURING 2 HOURS AWAKE HOURS AWAKE HOURS DURING FOR 4 DAYS FOR 4 DAYS AWAKE HOURS FOR 4 DAYS estradiol estradiol No estradiol [facility] 0.01% (0.1 0.01% (0.1 0.01% (0.1 [facility] mg/gram) mg/gram) mg/gram) ty vaginal vaginal vaginal Hospit a cream cream cream l INSERT 1 INSERT 1 INSERT 1 Cli nics GRAM INTO GRAM INTO GRAM INTO VAGINA VAGINA VAGINA TWICE A TWICE A TWICE A WEEK AT WEEK AT WEEK AT NIGHT. NIGHT. NIGHT. metoprolol metoprolol No metoprolol [facility] succinate succinate succinate [facility] ER 25 mg [...] CR 25 No 1 Q1D Paxil CR [facility] mg mg 25 mg [facility] tablet,exte tablet,exte tablet,ext ty nded nded ended Hospita release release release l Take 1 Take 1 Take 1 Clinics tablet tablet tablet every day every day every day by oral by oral by oral route. route. route. Suprax 400 Suprax 400 No 1capsul Q1D Suprax 400 [facility] mg capsule mg capsule e(s) mg capsule [...] HOURS 5 days valacyclovi valacyclovi No valacyclov [facility] r 1 gram r 1 gram ir 1 gram [facility] tablet TAKE tablet TAKE tablet ty 1 TABLET BY 1 TABLET BY TAKE 1 Hospita MOUTH TWICE MOUTH TWICE TABLET BY l DAILY DAILY MOUTH Clinics TWICE DAILY Zithromax Zithromax No Zithromax [facility] Z-Andrew 250 Z-Andrew 250 Z-Andrew 250 Communi [...] DAYS acyclovir 5 acyclovir 5 No acyclovir [facility] % topical % topical 5 % [facility] ointment ointment topical ty APPLY TO APPLY TO ointment [facility] THE THE APPLY TO l AFFECTED AFFECTED THE Clinics AREA EVERY AREA EVERY AFFECTED 2 HOURS 2 HOURS AREA EVERY DURING DURING 2 HOURS AWAKE HOURS AWAKE HOURS DURING FOR 4 DAYS FOR 4 DAYS AWAKE HOURS FOR 4 DAYS estradiol estradiol No estradiol [facility] 0.01% (0.1 0.01% (0.1 0.01% (0.1 [facility] mg/gram) mg/gram) mg/gram) ty vaginal vaginal vaginal Hospit a cream cream cream l INSERT 1 INSERT 1 INSERT 1 Cli nics GRAM INTO GRAM INTO GRAM INTO VAGINA VAGINA VAGINA TWICE A TWICE A TWICE A WEEK AT WEEK AT WEEK AT NIGHT. NIGHT. NIGHT. fluconazole fluconazole No fluconazol [facility] 150 mg 150 mg e 150 mg [facility] tablet tablet tablet ty [facility]osp[facility] l Clinics hydroxyzine hydroxyzine No 1 TID hydroxyzin [facility] HCl 25 mg HCl 25 mg e [...] Kenalog 40 No 60mg Q1D Kenalog 40 [facility] mg/mL mg/mL mg/mL [facility] suspension suspension suspension ty for for for Hospita injection injection injection l Take 60 mg Take 60 mg Take 60 mg Clinics every day every day every day by by by injection injection injection route. route. route. metoprolol metoprolol No metoprolol [facility] succinate succinate succinate [facility] ER 25 mg ER 25 mg ER 25 mg ty tablet,exte tablet,exte tablet,ext [facility]osp[facility] nded nded ended l release 24 release 24 release 24 Clinics hr TAKE 1 hr TAKE 1 hr TAKE 1 TABLET BY TABLET BY TABLET BY MOUTH EVERY MOUTH EVERY MOUTH DAY DAY EVERY DAY omeprazole omeprazole No omeprazole [facility] 20 mg 20 mg 20 mg [facility] capsule,del capsule,del capsule,de ty ayed ayed layed [facility]osp[facility] release release release l TAKE 1 TAKE 1 TAKE 1 Clinics CAPSULE BY CAPSULE BY CAPSULE BY MOUTH DAILY MOUTH DAILY MOUTH DAILY paroxetine paroxetine No paroxetine [facility] ER 25 mg ER 25 mg ER 25 mg Com ricci tablet,exte tablet,exte tablet,ext ty nded nded ended [facility]ospita release 24 release 24 release 24 l hr TAKE 1 hr TAKE 1 hr TAKE 1 Clinics TABLET BY TABLET BY TABLET BY MOUTH EVERY MOUTH EVERY MOUTH DAY DAY EVERY DAY tobramycin tobramycin No tobramycin [facility] 0.3 0.3 0.3 [facility] %-dexametha %-dexametha %-dexameth [...] FOR 5 DAYS triamcinolo triamcinolo No triamcinol [facility] ne ne one [facility] acetonide acetonide acetonide [...] days days days trimethopri trimethopri No trimethopr [facility] m 100 mg m 100 mg im 100 mg [facility] tablet TAKE tablet TAKE tablet ty 1 TABLET BY 1 TABLET BY TAKE 1 [facility]ospita MOUTH EVERY MOUTH EVERY TABLET BY l DAY DAY MOUTH Clinics EVERY DAY valacyclovi valacyclovi No valacyclov [facility] r 1 gram r 1 gram ir 1 gram [facility] tablet TAKE tablet TAKE tablet ty 1 TABLET BY 1 TABLET BY TAKE 1 [facility]ospita MOUTH TWICE MOUTH TWICE TABLET BY l DAILY prn DAILY prn MOUTH Clin ics TWICE DAILY prn acyclovir 5 acyclovir 5 No acyclovir [facility] % topical % topical 5 % Commu [...] DAYS Augmentin Augmentin No 1 Q12H Augmentin [facility] 500 mg-125 500 mg-125 500 mg-125 [facility] mg tablet mg tablet mg tablet ty Take 1 Take 1 Take 1 [facility]ospita tablet tablet tablet l every 12 every 12 every 12 Cli nics hours by hours by hours by oral route oral route oral route for 10 for 10 for 10 days. days. days. cephalexin cephalexin No cephalexin [facility] 500 mg 500 mg 500 mg [facility] capsule capsule capsule ty TAKE 1 TAKE 1 TAKE 1 [facility]ospita CAPSULE BY CAPSULE BY CAPSULE BY l MOUTH TWICE MOUTH TWICE MOUTH Clinics DAILY DAILY TWICE DAILY estradiol estradiol No estradiol [facility] 0.01% (0.1 0.01% (0.1 0.01% (0.1 [facility] mg/gram) mg/gram) mg/gram) ty vaginal vaginal vaginal Hospit a cream cream cream l INSERT 1 INSERT 1 INSERT 1 Cli nics GRAM INTO GRAM INTO GRAM INTO VAGINA VAGINA VAGINA TWICE A TWICE A TWICE A WEEK AT WEEK AT WEEK AT NIGHT. NIGHT. NIGHT. fluconazole fluconazole No fluconazol [facility] 150 mg 150 mg e 150 mg [facility] tablet tablet tablet ty [facility]osp[facility] l Clinics hydroxyzine hydroxyzine No hydroxyzin [facility] HCl 25 mg HCl 25 mg e [...] Kenalog 40 No 60mg Q1D Kenalog 40 [facility] mg/mL mg/mL mg/mL [facility] suspension suspension suspension ty for for for [facility]osp[facility] injection injection injection l Take 60 mg Take 60 mg Take 60 mg Clinics every day every day every day by by by injection injection injection route. route. route. metoprolol metoprolol No metoprolol [facility] succinate succinate succinate [facility] ER 25 mg ER 25 mg ER 25 mg ty tablet,exte tablet,exte tablet,ext [facility]ospita nded nded ended l release 24 release 24 release 24 Clinics hr TAKE 1 hr TAKE 1 hr TAKE 1 TABLET BY TABLET BY TABLET BY MOUTH EVERY MOUTH EVERY MOUTH DAY DAY EVERY DAY metronidazo metronidazo No 1 Q8H metronidaz [facility] le 500 mg le 500 mg ole 500 mg [facility] tablet Take tablet Take tablet ty 1 tablet 1 tablet Take 1 Hospi ta every 8 every 8 tablet l hours by hours by every 8 Clin ics oral route oral route hours by for 7 days. for 7 days. oral route for 7 days. omeprazole omeprazole No omeprazole [facility] 20 mg 20 mg 20 mg [facility] capsule,del capsule,del capsule,de ty ayed ayed layed [facility]osp[facility] release release release l TAKE 1 TAKE 1 TAKE 1 Clinics CAPSULE BY CAPSULE BY CAPSULE BY MOUTH DAILY MOUTH DAILY MOUTH DAILY ondansetron ondansetron No 1 Q6H ondansetro [facility] 4 mg 4 mg n 4 mg [...] for 6 days. paroxetine paroxetine No paroxetine [facility] ER 25 mg ER 25 mg ER 25 mg Com ricci tablet,exte tablet,exte tablet,ext ty nded nded ended Hospita release 24 release 24 release 24 l hr TAKE 1 hr TAKE 1 hr TAKE 1 Clinics TABLET BY TABLET BY TABLET BY MOUTH EVERY MOUTH EVERY MOUTH DAY DAY EVERY DAY tobramycin tobramycin No tobramycin [facility] 0.3 0.3 0.3 [facility] %-dexametha %-dexametha %-dexameth [...] FOR 5 DAYS triamcinolo triamcinolo No triamcinol [facility] ne ne one [facility] acetonide acetonide acetonide [...] FOR 7 DAYS trimethopri trimethopri No trimethopr [facility] m 100 mg m 100 mg im 100 mg [facility] tablet TAKE tablet TAKE tablet ty 1 TABLET BY 1 TABLET BY TAKE 1 Hospita MOUTH EVERY MOUTH EVERY TABLET BY l DAY DAY MOUTH Clinics EVERY DAY valacyclovi valacyclovi No valacyclov [facility] r 1 gram r 1 gram ir 1 gram [facility] tablet TAKE tablet TAKE tablet ty 1 TABLET BY 1 TABLET BY TAKE 1 Hospita MOUTH TWICE MOUTH TWICE TABLET BY l DAILY prn DAILY prn MOUTH Clin ics TWICE DAILY prn acyclovir 5 acyclovir 5 No acyclovir [facility] % topical % topical 5 % Commu ni ointment ointment topical ty APPLY TO APPLY TO ointment [facility] THE THE APPLY TO l AFFECTED AFFECTED THE Clinics AREA EVERY AREA EVERY AFFECTED 2 HOURS 2 HOURS AREA EVERY DURING DURING 2 HOURS AWAKE HOURS AWAKE HOURS DURING FOR 4 DAYS FOR 4 DAYS AWAKE HOURS FOR 4 DAYS amoxicillin amoxicillin No amoxicilli [facility] 500 500 n 500 [facility] mg-potassiu mg-potassiu [...] DAYS benzonatate benzonatate No 1capsul TID benzonatat [facility] 100 mg 100 mg e(s) e 100 [...] ty kit TEST kit TEST Test kit [facility] DIRECTED DIRECTED TEST l TODAY TODAY DIRECTED Clinics TODAY cephalexin cephalexin No cephalexin [facility] 500 mg 500 mg 500 mg [facility] capsule capsule capsule ty TAKE 1 TAKE 1 TAKE 1 Hospita CAPSULE BY CAPSULE BY CAPSULE BY l MOUTH TWICE MOUTH TWICE MOUTH Clinics DAILY DAILY TWICE DAILY estradiol estradiol No estradiol [facility] 0.01% (0.1 0.01% (0.1 0.01% (0.1 [facility] mg/gram) mg/gram) mg/gram) ty vaginal vaginal vaginal Hospit a cream cream cream l INSERT 1 INSERT 1 INSERT 1 Cli nics GRAM INTO GRAM INTO GRAM INTO VAGINA VAGINA VAGINA TWICE A TWICE A TWICE A WEEK AT WEEK AT WEEK AT NIGHT. NIGHT. NIGHT. fluconazole fluconazole No fluconazol [facility] 150 mg 150 mg e 150 mg [facility] hydroxyzine hydroxyzine No hydroxyzin [place] HCl 25 mg HCl 25 mg e [...] Kenalog 40 No 60mg Q1D Kenalog 40 [facility] mg/mL mg/mL mg/mL [facility] suspension suspension suspension ty for for for Hospita injection injection injection l Take 60 mg Take 60 mg Take 60 mg Clinics every day every day every day by by by injection injection injection route. route. route. meloxicam meloxicam No 1 Q1D meloxicam [facility] 15 mg 15 mg 15 mg [facility] tablet Take tablet Take tablet ty 1 tablet 1 tablet Take 1 Hospi ta every day every day tablet l by oral by oral every day Clin ics route for route for by oral 30 days. 30 days. route for 30 days. metoprolol metoprolol No metoprolol [facility] succinate succinate succinate [facility] ER 25 mg ER 25 mg ER 25 mg ty tablet,exte tablet,exte tablet,ext Hospita nded nded ended l release 24 release 24 release 24 Clinics hr TAKE 1 hr TAKE 1 hr TAKE 1 TABLET BY TABLET BY TABLET BY MOUTH EVERY MOUTH EVERY MOUTH DAY DAY EVERY DAY metronidazo metronidazo No metronidaz [facility] le 500 mg le 500 mg ole 500 mg [facility] tablet TAKE tablet TAKE tablet ty 1 TABLET BY 1 TABLET BY TAKE 1 Hospita MOUTH EVERY MOUTH EVERY TABLET BY l 8 HOURS FOR 8 HOURS FOR MOUTH Clinics 7 DAYS 7 DAYS EVERY 8 HOURS FOR 7 DAYS omeprazole omeprazole No omeprazole [place] 20 mg 20 mg 20 mg [facility] capsule,del capsule,del capsule,de ty ayed ayed layed Hospita release release release l TAKE 1 TAKE 1 TAKE 1 Clinics CAPSULE BY CAPSULE BY CAPSULE BY MOUTH DAILY MOUTH DAILY MOUTH DAILY ondansetron ondansetron No ondansetro [place] 4 mg 4 mg n 4 mg [...] 6 DAYS NEEDED paroxetine paroxetine No paroxetine [facility] ER 25 mg ER 25 mg ER 25 mg Com ricci tablet,exte tablet,exte tablet,ext ty nded nded ended [facility]ospita release 24 release 24 release 24 l hr TAKE 1 hr TAKE 1 hr TAKE 1 Clinics TABLET BY TABLET BY TABLET BY MOUTH EVERY MOUTH EVERY MOUTH DAY DAY EVERY DAY tobramycin tobramycin No tobramycin [facility] 0.3 0.3 0.3 [facility] %-dexametha %-dexametha %-dexameth [...] DAYS tramadol 50 tramadol 50 No tramadol [facility] mg tablet mg tablet 50 mg Comm uni tablet ty Hospita l Clinics triamcinolo triamcinolo No triamcinol [place] ne ne one [facility] acetonide acetonide acetonide [...] FOR 7 DAYS trimethopri trimethopri No trimethopr [place] m 100 mg m 100 mg im 100 mg [facility] tablet TAKE tablet TAKE tablet ty 1 TABLET BY 1 TABLET BY TAKE 1 Hospita MOUTH EVERY MOUTH EVERY TABLET BY l DAY DAY MOUTH Clinics EVERY DAY valacyclovi valacyclovi No valacyclov [place] r 1 gram r 1 gram ir 1 gram [facility] tablet TAKE tablet TAKE tablet ty 1 TABLET BY 1 TABLET BY TAKE 1 Hospita MOUTH TWICE MOUTH TWICE TABLET BY l DAILY prn DAILY prn MOUTH Clin ics TWICE DAILY prn Zithromax Zithromax No Zithromax [facility] Z-Andrew 250 Z-Andrew 250 Z-Andrew 250 Communi [...] DAYS cetirizine cetirizine No 1 Q1D cetirizine [facility] 10 mg 10 mg 10 mg [facility] tablet Take tablet Take tablet ty 1 tablet 1 tablet Take 1 Hospi ta every day every day tablet l by oral by oral every day Clin ics route at route at by oral bedtime. bedtime. route at bedtime. estradiol estradiol No estradiol [facility] 0.01% (0.1 0.01% (0.1 0.01% (0.1 [facility] mg/gram) mg/gram) mg/gram) ty vaginal vaginal vaginal Hospit a cream cream cream l INSERT 1 INSERT 1 INSERT 1 Cli nics GRAM INTO GRAM INTO GRAM INTO VAGINA VAGINA VAGINA TWICE A TWICE A TWICE A WEEK AT WEEK AT WEEK AT NIGHT. NIGHT. NIGHT. fluticasone fluticasone No 1spray( Q1D fluticason [facility] propionate propionate s) e Com ricci 50 50 propionate ty mcg/actuati mcg/actuati 50 H ospita on nasal on nasal mcg/actuat l spray,suspe spray,suspe ion nasal Clinics nsion Mora nsion Mora spray,susp 1 spray 1 spray ension every day every day Mora 1 by by spray intranasal intranasal every day route. route. by intranasal route. meclizine meclizine No 1 TID meclizine [facility] 25 mg 25 mg 25 mg [facility] tablet Take tablet Take tablet ty 1 tablet 3 1 tablet 3 Take 1 H ospita times a day times a day tablet 3 l by oral by oral times a Clinic s route as route as day by needed. needed. oral route as needed. ondansetron ondansetron No ondansetro [facility] 4 mg 4 mg n 4 mg [...] NEEDED propranolol propranolol No 1 TID propranolo [facility] 10 mg 10 mg l 10 mg [facility] tablet Take tablet Take tablet ty 1 tablet 3 1 tablet 3 Take 1 H ospita times a day times a day tablet 3 l by oral by oral times a Clinic s route as route as day by needed. needed. oral route as needed. azelastine azelastine No azelastine [facility] 205.5 mcg 205.5 mcg 205.5 mcg [facility] (0.15 %) (0.15 %) (0.15 %) ty nasal spray nasal spray nasal Hospita 1 SPRAY TO 1 SPRAY TO spray 1 l EACH EACH SPRAY TO Clinics NOSTRIL NOSTRIL EACH TWICE DAILY TWICE DAILY NOSTRIL TWICE DAILY azithromyci azithromyci No azithromyc [place] n 250 mg n 250 mg in 250 mg [facility] tablet tablet tablet ty [facility]ospita l Clinics cetirizine cetirizine No cetirizine [facility] 10 mg 10 mg 10 mg [facility] tablet TAKE tablet TAKE tablet ty 1 TABLET BY 1 TABLET BY TAKE 1 Hospita MOUTH EVERY MOUTH EVERY TABLET BY l NIGHT AT NIGHT AT MOUTH Clinic s BEDTIME BEDTIME EVERY NIGHT AT BEDTIME estradiol estradiol No estradiol [facility] 0.01% (0.1 0.01% (0.1 0.01% (0.1 [facility] mg/gram) mg/gram) mg/gram) ty vaginal vaginal vaginal Hospit a cream cream cream l INSERT 1 INSERT 1 INSERT 1 Cli nics GRAM INTO GRAM INTO GRAM INTO VAGINA VAGINA VAGINA TWICE A TWICE A TWICE A WEEK AT WEEK AT WEEK AT NIGHT. NIGHT. NIGHT. fluticasone fluticasone No fluticason [facility] propionate propionate e Com ricci 50 50 [...] NOSTRIL EVERY DAY hydroxyzine hydroxyzine No hydroxyzin [facility] HCl 25 mg HCl 25 mg e HCl 25 C [facility] tablet TAKE tablet TAKE mg tablet ty 1 TABLET BY 1 TABLET BY TAKE 1 Hospita MOUTH EVERY MOUTH EVERY TABLET BY l 6 HOURS 6 HOURS MOUTH Cl inics NEEDED NEEDED EVERY 6 HOURS NEEDED meclizine meclizine No 1 TID meclizine [facility] 25 mg 25 mg 25 mg [facility] tablet Take tablet Take tablet ty 1 tablet 3 1 tablet 3 Take 1 H ospita times a day times a day tablet 3 l by oral by oral times a Clinic s route as route as day by needed. needed. oral route as needed. Medrol Medrol No 1dose Medrol [place] (Andrew) 4 mg (Andrew) 4 mg pk(s) (Andrew) 4 mg [facility] tablets in tablets in tablets in ty a dose pack a dose pack a dose Hospita Take 1 dose Take 1 dose pack Take l pk by oral pk by oral 1 dose pk Clinics route as route as by oral directed. directed. route as directed. ondansetron ondansetron No ondansetro [facility] 4 mg 4 mg n 4 mg [facility] disintegrat disintegrat disintegra ty ing tablet ing tablet ting [facility] DISSOLVE 1 DISSOLVE 1 tablet l TABLET ON TABLET ON DISSOLVE 1 Clinics THE TOUNGE THE TOUNGE TABLET ON EVERY 8 EVERY 8 THE TOUNGE HOURS HOURS EVERY 8 NEEDED NEEDED HOURS NEEDED propranolol propranolol No propranolo [facility] 10 mg 10 mg l 10 mg [facility] tablet TAKE tablet TAKE tablet ty 1 TABLET BY 1 TABLET BY TAKE 1 Hospita MOUTH THREE MOUTH THREE TABLET BY l TIMES DAILY TIMES DAILY MOUTH Clinics NEEDED NEEDED THREE TIMES DAILY NEEDED azelastine azelastine No azelastine [facility] 205.5 mcg 205.5 mcg 205.5 mcg [facility] (0.15 %) (0.15 %) (0.15 %) ty nasal spray nasal spray nasal Hospita USE 1 SPRAY USE 1 SPRAY spray USE l IN EACH IN EACH 1 SPRAY IN Cli nics NOSTRIL NOSTRIL EACH TWICE DAILY TWICE DAILY NOSTRIL TWICE DAILY estradiol estradiol No estradiol [facility] 0.01% (0.1 0.01% (0.1 0.01% (0.1 [facility] mg/gram) mg/gram) mg/gram) ty vaginal vaginal vaginal Hospit a cream cream cream l INSERT 1 INSERT 1 INSERT 1 Cli nics GRAM INTO GRAM INTO GRAM INTO VAGINA VAGINA VAGINA TWICE A TWICE A TWICE A WEEK AT WEEK AT WEEK AT NIGHT. NIGHT. NIGHT. fluticasone fluticasone No fluticason [facility] propionate propionate e Com ricci 50 50 [...] DAY hydroxyzine hydroxyzine No 1 BID hydroxyzin [place] HCl 25 mg HCl 25 mg e HCl 25 C [facility] tablet Take tablet Take mg tablet ty 1 tablet 1 tablet Take 1 Hospi ta twice a day twice a day tablet l by oral by oral twice a Clinic s route as route as day by needed. needed. oral route as needed. hyoscyamine hyoscyamine No hyoscyamin [facility] sulfate sulfate e sulfate Comm uni 0.125 mg 0.125 mg 0.125 mg ty tablet TAKE tablet TAKE tablet Hospita 1 TABLET BY 1 TABLET BY TAKE 1 l MOUTH EVERY MOUTH EVERY TABLET BY Clinics 8 HOURS 8 HOURS MOUTH EVERY 8 HOURS levothyroxi levothyroxi No 1 Q1D levothyrox [facility] ne 25 mcg ne 25 mcg ine 25 mcg [facility] tablet Take tablet Take tablet ty 1 tablet 1 tablet Take 1 Hospi ta every day every day tablet l by oral by oral every day Clin ics route. route. by oral route. meclizine meclizine No 1 TID meclizine [facility] 25 mg 25 mg 25 mg [facility] tablet Take tablet Take tablet ty 1 tablet 3 1 tablet 3 Take 1 H ospita times a day times a day tablet 3 l by oral by oral times a Clinic s route as route as day by needed. needed. oral route as needed. venlafaxine venlafaxine No 1capsul Q1D venlafaxin [facility] ER 37.5 mg ER 37.5 mg e(s) e ER 37.5 [facility] capsule,ext capsule,ext mg t y ended ended capsule,ex Hospita release 24 release 24 tended l hr Take 1 hr Take 1 release 24 Clinics capsule capsule hr Take 1 every day every day capsule by oral by oral every day route. route. by oral route. azelastine azelastine No azelastine [facility] 205.5 mcg 205.5 mcg 205.5 mcg [facility] (0.15 %) (0.15 %) (0.15 %) ty nasal spray nasal spray nasal Hospita USE 1 SPRAY USE 1 SPRAY spray USE l IN EACH IN EACH 1 SPRAY IN Cli nics NOSTRIL NOSTRIL EACH TWICE DAILY TWICE DAILY NOSTRIL TWICE DAILY estradiol estradiol No estradiol [facility] 0.01% (0.1 0.01% (0.1 0.01% (0.1 [facility] mg/gram) mg/gram) mg/gram) ty vaginal vaginal vaginal Hospit a cream cream cream l INSERT 1 INSERT 1 INSERT 1 Cli nics GRAM INTO GRAM INTO GRAM INTO VAGINA VAGINA VAGINA TWICE A TWICE A TWICE A WEEK AT WEEK AT WEEK AT NIGHT. NIGHT. NIGHT. fluticasone fluticasone No fluticason [place] propionate propionate e Com ricci 50 50 [...] DAY hydroxyzine hydroxyzine No 1 BID hydroxyzin [place] HCl 25 mg HCl 25 mg e HCl 25 C [facility] tablet Take tablet Take mg tablet ty 1 tablet 1 tablet Take 1 Hospi ta twice a day twice a day tablet l by oral by oral twice a Clinic s route as route as day by needed. needed. oral route as needed. hyoscyamine hyoscyamine No hyoscyamin [facility] sulfate sulfate e sulfate Comm uni 0.125 mg 0.125 mg 0.125 mg ty tablet TAKE tablet TAKE tablet Hospita 1 TABLET BY 1 TABLET BY TAKE 1 l MOUTH EVERY MOUTH EVERY TABLET BY Clinics 8 HOURS 8 HOURS MOUTH EVERY 8 HOURS levothyroxi levothyroxi No 1 Q1D levothyrox [place] ne 25 mcg ne 25 mcg ine 25 mcg [facility] tablet Take tablet Take tablet ty 1 tablet 1 tablet Take 1 Hospi ta every day every day tablet l by oral by oral every day Clin ics route. route. by oral route. meclizine meclizine No 1 TID meclizine [facility] 25 mg 25 mg 25 mg [facility] tablet Take tablet Take tablet ty 1 tablet 3 1 tablet 3 Take 1 H [facility]spita times a day times a day tablet 3 l by oral by oral times a Clinic s route as route as day by needed. needed. oral route as needed. venlafaxine venlafaxine No 1capsul Q1D venlafaxin [facility] ER 37.5 mg ER 37.5 mg e(s) e ER 37.5 [facility] capsule,ext capsule,ext mg t y ended ended capsule,ex Hospita release 24 release 24 tended l hr Take 1 hr Take 1 release 24 Clinics capsule capsule hr Take 1 every day every day capsule by oral by oral every day route. route. by oral route. azelastine azelastine No azelastine [facility] 205.5 mcg 205.5 mcg 205.5 mcg [facility] (0.15 %) (0.15 %) (0.15 %) ty nasal spray nasal spray nasal Hospita USE 1 SPRAY USE 1 SPRAY spray USE l IN EACH IN EACH 1 SPRAY IN Cli nics NOSTRIL NOSTRIL EACH TWICE DAILY TWICE DAILY NOSTRIL TWICE DAILY buspirone 5 buspirone 5 No 1 BID buspirone [facility] mg tablet mg tablet 5 mg Commu ni Take 1 Take 1 tablet ty tablet tablet Take 1 Hospita twice a day twice a day tablet l by oral by oral twice a Clinic s route for route for day by 30 days. 30 days. oral route for 30 days. dicyclomine dicyclomine No dicyclomin [facility] 20 mg 20 mg e 20 mg [...] CRAMPS OR DISCOMFORT estradiol estradiol No estradiol [facility] 0.01% (0.1 0.01% (0.1 0.01% (0.1 [facility] mg/gram) mg/gram) mg/gram) ty vaginal vaginal vaginal Hospit a cream cream cream l INSERT 1 INSERT 1 INSERT 1 Cli nics GRAM INTO GRAM INTO GRAM INTO VAGINA VAGINA VAGINA TWICE A TWICE A TWICE A WEEK AT WEEK AT WEEK AT NIGHT. NIGHT. NIGHT. Vital Signs Vital Name Observation Time Observation Value Comments Source BP Diastolic 2022-08-12 00:00:00 88 mm[Hg] [facility] Height 2022-08-12 00:00:00 63 [in_i] [facility] BMI (Body Mass 2022-08-12 00:00:00 36.1 kg/m2 [facility] BP Systolic 2022-08-12 00:00:00 122 mm[Hg] [facility] Body Weight 2022-08-12 00:00:00 3260.8 [oz_av] [facility] s BP Diastolic 2022-07-18 00:00:00 81 mm[Hg] [facility] s Height 2022-07-18 00:00:00 63 [in_i] [facility] s BMI (Body Mass 2022-07-18 00:00:00 35.5 kg/m2 [facility] s BP Systolic 2022-07-18 00:00:00 143 mm[Hg] [facility] s Body Weight 2022-07-18 00:00:00 3206.4 [oz_av] [facility] s BP Diastolic 2022-07-08 00:00:00 79 mm[Hg] [facility] s Height 2022-07-08 00:00:00 63 [in_i] [facility] s BMI (Body Mass 2022-07-08 00:00:00 36.2 kg/m2 [facility] s BP Systolic 2022-07-08 00:00:00 119 mm[Hg] [facility] s Body Weight 2022-07-08 00:00:00 3267.2 [oz_av] [facility] s BP Diastolic 2022-03-27 00:00:00 85 mm[Hg] [facility] s Height 2022-03-27 00:00:00 63 [in_i] [facility] s BMI (Body Mass 2022-03-27 00:00:00 34.8 kg/m2 [facility] s BP Systolic 2022-03-27 00:00:00 153 mm[Hg] [facility] Body Weight 2022-03-27 00:00:00 3139.2 [oz_av] [facility] s BP Diastolic 2022-02-24 00:00:00 77 mm[Hg] [facility] s Height 2022-02-24 00:00:00 63 [in_i] [facility] s BMI (Body Mass 2022-02-24 00:00:00 34.8 kg/m2 [facility] s BP Systolic 2022-02-24 00:00:00 143 mm[Hg] [facility] s Body Weight 2022-02-24 00:00:00 3139.2 [oz_av] [facility] s BP Diastolic 2022-01-23 00:00:00 80 mm[Hg] [facility] s Height 2022-01-23 00:00:00 63 [in_i] [facility] s BMI (Body Mass 2022-01-23 00:00:00 34.2 kg/m2 [facility] s BP Systolic 2022-01-23 00:00:00 145 mm[Hg] [facility] Body Weight 2022-01-23 00:00:00 3088 [oz_av] [facility] s BP Diastolic 2021-12-18 00:00:00 74 mm[Hg] [facility] s Height 2021-12-18 00:00:00 63 [in_i] [facility] s BMI (Body Mass 2021-12-18 00:00:00 34.7 kg/m2 [facility] s BP Systolic 2021-12-18 00:00:00 139 mm[Hg] [facility] Body Weight 2021-12-18 00:00:00 3136 [oz_av] [facility] s BP Diastolic 2021-11-08 00:00:00 71 mm[Hg] [facility] s Height 2021-11-08 00:00:00 63 [in_i] [facility] s BMI (Body Mass 2021-11-08 00:00:00 35.3 kg/m2 [facility] s BP Systolic 2021-11-08 00:00:00 140 mm[Hg] [facility] Body Weight 2021-11-08 00:00:00 3187.2 [oz_av] [facility] s BP Diastolic 2021-10-21 00:00:00 74 mm[Hg] [facility] s Height 2021-10-21 00:00:00 63 [in_i] [facility] s BMI (Body Mass 2021-10-21 00:00:00 35.3 kg/m2 [facility] s BP Systolic 2021-10-21 00:00:00 147 mm[Hg] [facility] s Body Weight 2021-10-21 00:00:00 3184 [oz_av] [facility] s BP Diastolic 2021-09-20 00:00:00 71 mm[Hg] [facility] s Height 2021-09-20 00:00:00 63 [in_i] [facility] s BMI (Body Mass 2021-09-20 00:00:00 34.7 kg/m2 [facility] s BP Systolic 2021-09-20 00:00:00 128 mm[Hg] [facility] s Body Weight 2021-09-20 00:00:00 3137 [oz_av] [facility] s BP Diastolic 2021-07-31 00:00:00 90 mm[Hg] [facility] s Height 2021-07-31 00:00:00 63 [in_i] [facility] s BMI (Body Mass 2021-07-31 00:00:00 34.9 kg/m2 [facility] s BP Systolic 2021-07-31 00:00:00 123 mm[Hg] [facility] s Body Weight 2021-07-31 00:00:00 3153.6 [oz_av] [facility] s BP Diastolic 2021-07-23 00:00:00 85 mm[Hg] [facility] s Height 2021-07-23 00:00:00 63 [in_i] [facility] s BMI (Body Mass 2021-07-23 00:00:00 35.6 kg/m2 [facility] s BP Systolic 2021-07-23 00:00:00 151 mm[Hg] [facility] s Body Weight 2021-07-23 00:00:00 3216 [oz_av] [facility] s BP Diastolic 2021-06-24 00:00:00 81 mm[Hg] [facility] s Height 2021-06-24 00:00:00 63 [in_i] [facility] s BMI (Body Mass 2021-06-24 00:00:00 36.8 kg/m2 [facility] s BP Systolic 2021-06-24 00:00:00 138 mm[Hg] [facility] Body Weight 2021-06-24 00:00:00 3328 [oz_av] [facility] s BP Diastolic 2021-05-30 00:00:00 84 mm[Hg] [facility] s Height 2021-05-30 00:00:00 63 [in_i] [facility] s BMI (Body Mass 2021-05-30 00:00:00 36.5 kg/m2 [facility] s BP Systolic 2021-05-30 00:00:00 144 mm[Hg] [facility] s Body Weight 2021-05-30 00:00:00 3296 [oz_av] [facility] s BP Diastolic 2021-04-09 00:00:00 68 mm[Hg] [facility] s Height 2021-04-09 00:00:00 63 [in_i] [facility] s BMI (Body Mass 2021-04-09 00:00:00 34.4 kg/m2 [facility] s BP Systolic 2021-04-09 00:00:00 143 mm[Hg] [facility] Body Weight 2021-04-09 00:00:00 3107.2 [oz_av] [facility] s BP Diastolic 2021-03-14 00:00:00 80 mm[Hg] [facility] s Height 2021-03-14 00:00:00 63 [in_i] [facility] s BMI (Body Mass 2021-03-14 00:00:00 34.9 kg/m2 [facility] s BP Systolic 2021-03-14 00:00:00 145 mm[Hg] [facility] s Body Weight 2021-03-14 00:00:00 3155.2 [oz_av] [facility] s BP Diastolic 2021-03-04 00:00:00 76 mm[Hg] [facility] s Height 2021-03-04 00:00:00 63 [in_i] [facility] s BMI (Body Mass 2021-03-04 00:00:00 36.2 kg/m2 [facility] s BP Systolic 2021-03-04 00:00:00 139 mm[Hg] [facility] s Body Weight 2021-03-04 00:00:00 3270.4 [oz_av] [facility] s BP Diastolic 2021-02-25 00:00:00 71 mm[Hg] [facility] s Height 2021-02-25 00:00:00 63 [in_i] [facility] s BMI (Body Mass 2021-02-25 00:00:00 36.5 kg/m2 [facility] s BP Systolic 2021-02-25 00:00:00 131 mm[Hg] [facility] Body Weight 2021-02-25 00:00:00 3292.8 [oz_av] [facility] s BP Diastolic 2021-01-14 00:00:00 85 mm[Hg] [facility] s Height 2021-01-14 00:00:00 63 [in_i] [facility] s BMI (Body Mass 2021-01-14 00:00:00 35.3 kg/m2 [facility] s BP Systolic 2021-01-14 00:00:00 137 mm[Hg] [facility] s Body Weight 2021-01-14 00:00:00 3184 [oz_av] [facility] s BP Diastolic 2020-10-16 00:00:00 61 mm[Hg] [facility] s Height 2020-10-16 00:00:00 63 [in_i] [facility] s BMI (Body Mass 2020-10-16 00:00:00 34.4 kg/m2 [facility] s BP Systolic 2020-10-16 00:00:00 120 mm[Hg] [facility] s Body Weight 2020-10-16 00:00:00 3104 [oz_av] [facility] s BP Diastolic 2020-09-28 00:00:00 86 mm[Hg] [facility] s Height 2020-09-28 00:00:00 63 [in_i] [facility] [facility] s BMI (Body Mass 2020-09-28 00:00:00 33.9 kg/m2 [facility] s BP Systolic 2020-09-28 00:00:00 129 mm[Hg] [facility] s Body Weight 2020-09-28 00:00:00 3062.4 [oz_av] [facility] s BP Diastolic 2020-08-20 00:00:00 79 mm[Hg] [facility] s Height 2020-08-20 00:00:00 63 [in_i] [facility] s BMI (Body Mass 2020-08-20 00:00:00 33 kg/m2 [facility] s BP Systolic 2020-08-20 00:00:00 142 mm[Hg] [facility] s Body Weight 2020-08-20 00:00:00 2979.2 [oz_av] [facility] s BP Diastolic 2020-08-13 00:00:00 93 mm[Hg] [facility] Height 2020-08-13 00:00:00 63 [in_i] [facility] s BMI (Body Mass 2020-08-13 00:00:00 33.2 kg/m2 [facility] s BP Systolic 2020-08-13 00:00:00 149 mm[Hg] [facility] s Body Weight 2020-08-13 00:00:00 3001.6 [oz_av] [facility] s BP Diastolic 2020-07-26 00:00:00 74 mm[Hg] [facility] s Height 2020-07-26 00:00:00 63 [in_i] [facility] s BMI (Body Mass 2020-07-26 00:00:00 32.7 kg/m2 [facility] s BP Systolic 2020-07-26 00:00:00 133 mm[Hg] [facility] s Body Weight 2020-07-26 00:00:00 2956.8 [oz_av] [facility] s Procedures Procedure Date / Time Performing Clinician Source Performed CT, head, w/o contrast 2022-02-24 00:00:00 [facility] URINE CULTURE 2021-09-23 00:00:00 Provider, Not In [facility] POC URINALYSIS DIPSTICK 2021-08-21 19:36:00 Emily Vazquez [facility] [id number] 2021-08-21 19:36:00 Emily Vazquez spital [facility] Carpal Tunnel Surgery [facility] Cholecystectomy [facility] Tubal Ligation [facility] Plan of Care Planned Activity Planned Date Details Comments Source Future Scheduled Test 2022-07-04 Hepatitis C screening [facility] 13:42:03 (procedure) [code = 398178069] Future Scheduled Test 2022-07-04 Screening for [facility] 13:42:03 malignant neoplasm of cervix (procedure) [code = 305799196] Future Scheduled Test 2022-07-04 BREAST CANCER [facility] 13:42:03 SCREENING [code = BREAST CANCER SCREENING] Future Scheduled Test 2022-07-04 COLONOSCOPY SCREENING [facility] 13:42:03 [code = COLONOSCOPY SCREENING] Future Scheduled Test 2022-07-04 SHINGLES VACCINES (1 [facility] 13:42:03 of 2) [code = SHINGLES VACCINES (1 of 2)] Future Scheduled Test 2022-07-04 65+ PNEUMOCOCCAL [facility] 13:42:03 VACCINE (1 - PCV) [code = 65+ PNEUMOCOCCAL VACCINE (1 - PCV)] Future Scheduled Test 2022-07-04 INFLUENZA VACCINE [facility] 13:42:03 [code = INFLUENZA VACCINE] Future Scheduled Test 2022-07-04 Hepatitis C screening [facility] 13:42:03 (procedure) [code = 870567482] Future Scheduled Test 2022-07-04 Screening for [facility] 13:42:03 malignant neoplasm of cervix (procedure) [code = 473676778] Future Scheduled Test 2022-07-04 BREAST CANCER [facility] 13:42:03 SCREENING [code = BREAST CANCER SCREENING] Future Scheduled Test 2022-07-04 COLONOSCOPY SCREENING [facility] 13:42:03 [code = COLONOSCOPY SCREENING] Future Scheduled Test 2022-07-04 SHINGLES VACCINES (1 [facility] 13:42:03 of 2) [code = SHINGLES VACCINES (1 of 2)] Future Scheduled Test 2022-07-04 65+ PNEUMOCOCCAL [facility] 13:42:03 VACCINE (1 - PCV) [code = 65+ PNEUMOCOCCAL VACCINE (1 - PCV)] Future Scheduled Test 2022-07-04 INFLUENZA VACCINE [facility] 13:42:03 [code = INFLUENZA VACCINE] Future Scheduled Test 2022-07-04 Hepatitis C screening [facility] 13:42:03 (procedure) [code = 497787351] Future Scheduled Test 2022-07-04 Screening for [facility] 13:42:03 malignant neoplasm of cervix (procedure) [code = 107471901] Future Scheduled Test 2022-07-04 BREAST CANCER [facility] 13:42:03 SCREENING [code = BREAST CANCER SCREENING] Future Scheduled Test 2022-07-04 COLONOSCOPY SCREENING [facility] 13:42:03 [code = COLONOSCOPY SCREENING] Future Scheduled Test 2022-07-04 SHINGLES VACCINES (1 [facility] 13:42:03 of 2) [code = SHINGLES VACCINES (1 of 2)] Future Scheduled Test 2022-07-04 65+ PNEUMOCOCCAL [facility] 13:42:03 VACCINE (1 - PCV) [code = 65+ PNEUMOCOCCAL VACCINE (1 - PCV)] Future Scheduled Test 2022-07-04 INFLUENZA VACCINE [facility] 13:42:03 [code = INFLUENZA VACCINE] Future Scheduled Test 2022-07-04 Hepatitis C screening [facility] 13:42:03 (procedure) [code = 895223115] Future Scheduled Test 2022-07-04 Screening for [facility] 13:42:03 malignant neoplasm of cervix (procedure) [code = 279285574] Future Scheduled Test 2022-07-04 BREAST CANCER [facility] 13:42:03 SCREENING [code = BREAST CANCER SCREENING] Future Scheduled Test 2022-07-04 COLONOSCOPY SCREENING [facility] 13:42:03 [code = COLONOSCOPY SCREENING] Future Scheduled Test 2022-07-04 SHINGLES VACCINES (1 [facility] 13:42:03 of 2) [code = SHINGLES VACCINES (1 of 2)] Future Scheduled Test 2022-07-04 65+ PNEUMOCOCCAL [facility] 13:42:03 VACCINE (1 - PCV) [code = 65+ PNEUMOCOCCAL VACCINE (1 - PCV)] Future Scheduled Test 2022-07-04 INFLUENZA VACCINE [facility] 13:42:03 [code = INFLUENZA VACCINE] Future Scheduled Test 2022-05-22 Hepatitis C screening [facility] 16:12:20 (procedure) [code = 622334206] Future Scheduled Test 2022-05-22 Screening for [facility] 16:12:20 malignant neoplasm of cervix (procedure) [code = 170322715] Future Scheduled Test 2022-05-22 BREAST CANCER [facility] 16:12:20 SCREENING [code = BREAST CANCER SCREENING] Future Scheduled Test 2022-05-22 COLONOSCOPY SCREENING [facility] 16:12:20 [code = COLONOSCOPY SCREENING] Future Scheduled Test 2022-05-22 SHINGLES VACCINES (1 [facility] 16:12:20 of 2) [code = SHINGLES VACCINES (1 of 2)] Future Scheduled Test 2022-05-22 65+ PNEUMOCOCCAL Me [facility] 16:12:20 VACCINE (1 - PCV) [code = 65+ PNEUMOCOCCAL VACCINE (1 - PCV)] Future Scheduled Test 2022-05-22 INFLUENZA VACCINE [facility] 16:12:20 [code = INFLUENZA VACCINE] Diagnostic Test 2022-03-27 rapid SARS CoV 2 Ag, [facility] Pending 00:00:00 QL IA, respiratory Hospital Clinics specimen [code = rapid SARS CoV 2 Ag, QL IA, respiratory specimen] Diagnostic Test 2022-03-27 rapid flu (A+B) [code Swe [facility] Pending 00:00:00 = rapid flu (A+B)] Hospital Clinics Diagnostic Test 2022-03-27 urinalysis, dipstick [facility] Pending 00:00:00 [code = urinalysis, Hospital Clinics dipstick] Future Scheduled Test 2022-02-04 HEPATITIS B VACCINES [facility] 13:45:17 (1 of 3 - 3-dose series) [code = HEPATITIS B VACCINES (1 of 3 - 3-dose series)] Future Scheduled Test 2022-02-04 Hepatitis C screening [facility] 13:45:17 (procedure) [code = 857277244] Future Scheduled Test 2022-02-04 Screening for [facility] 13:45:17 malignant neoplasm of cervix (procedure) [code = 654075228] Future Scheduled Test 2022-02-04 BREAST CANCER [facility] 13:45:17 SCREENING [code = BREAST CANCER SCREENING] Future Scheduled Test 2022-02-04 COLONOSCOPY SCREENING [facility] 13:45:17 [code = COLONOSCOPY SCREENING] Future Scheduled Test 2022-02-04 SHINGLES VACCINES (1 [facility] 13:45:17 of 2) [code = SHINGLES VACCINES (1 of 2)] Future Scheduled Test 2022-02-04 65+ PNEUMOCOCCAL [facility] 13:45:17 VACCINE (1 - PCV) [code = 65+ PNEUMOCOCCAL VACCINE (1 - PCV)] Future Scheduled Test 2022-02-04 INFLUENZA VACCINE [facility] 13:45:17 [code = INFLUENZA VACCINE] Future Scheduled Test 2022-02-04 HEPATITIS B VACCINES [facility] 13:45:17 (1 of 3 - 3-dose series) [code = HEPATITIS B VACCINES (1 of 3 - 3-dose series)] Future Scheduled Test 2022-02-04 Hepatitis C screening [facility] 13:45:17 (procedure) [code = 476207868] Future Scheduled Test 2022-02-04 Screening for [facility] 13:45:17 malignant neoplasm of cervix (procedure) [code = 009917825] Future Scheduled Test 2022-02-04 BREAST CANCER [facility] 13:45:17 SCREENING [code = BREAST CANCER SCREENING] Future Scheduled Test 2022-02-04 COLONOSCOPY SCREENING [facility] 13:45:17 [code = COLONOSCOPY SCREENING] Future Scheduled Test 2022-02-04 SHINGLES VACCINES (1 [facility] 13:45:17 of 2) [code = SHINGLES VACCINES (1 of 2)] Future Scheduled Test 2022-02-04 65+ PNEUMOCOCCAL [facility] 13:45:17 VACCINE (1 - PCV) [code = 65+ PNEUMOCOCCAL VACCINE (1 - PCV)] Future Scheduled Test 2022-02-04 INFLUENZA VACCINE [facility] 13:45:17 [code = INFLUENZA VACCINE] Future Scheduled Test 2022-01-03 HEPATITIS B VACCINES [facility] 14:11:23 (1 of 3 - 3-dose series) [code = HEPATITIS B VACCINES (1 of 3 - 3-dose series)] Future Scheduled Test 2022-01-03 Hepatitis C screening [facility] 14:11:23 (procedure) [code = 416004052] Future Scheduled Test 2022-01-03 Screening for [facility] 14:11:23 malignant neoplasm of cervix (procedure) [code = 617176256] Future Scheduled Test 2022-01-03 BREAST CANCER [facility] 14:11:23 SCREENING [code = BREAST CANCER SCREENING] Future Scheduled Test 2022-01-03 COLONOSCOPY SCREENING [facility] 14:11:23 [code = COLONOSCOPY SCREENING] Future Scheduled Test 2022-01-03 SHINGLES VACCINES (1 [facility] 14:11:23 of 2) [code = SHINGLES VACCINES (1 of 2)] Future Scheduled Test 2022-01-03 65+ PNEUMOCOCCAL [facility] 14:11:23 VACCINE (1 - PCV) [code = 65+ PNEUMOCOCCAL VACCINE (1 - PCV)] Future Scheduled Test 2022-01-03 INFLUENZA VACCINE [facility] 14:11:23 [code = INFLUENZA VACCINE] Future Scheduled Test 2022-01-03 HEPATITIS B VACCINES [facility] 14:11:23 (1 of 3 - 3-dose series) [code = HEPATITIS B VACCINES (1 of 3 - 3-dose series)] Future Scheduled Test 2022-01-03 Hepatitis C screening [facility] 14:11:23 (procedure) [code = 000516158] Future Scheduled Test 2022-01-03 Screening for [facility] 14:11:23 malignant neoplasm of cervix (procedure) [code = 220584761] Future Scheduled Test 2022-01-03 BREAST CANCER [facility] 14:11:23 SCREENING [code = BREAST CANCER SCREENING] Future Scheduled Test 2022-01-03 COLONOSCOPY SCREENING [facility] 14:11:23 [code = COLONOSCOPY SCREENING] Future Scheduled Test 2022-01-03 SHINGLES VACCINES (1 [facility] 14:11:23 of 2) [code = SHINGLES VACCINES (1 of 2)] Future Scheduled Test 2022-01-03 65+ PNEUMOCOCCAL [facility] 14:11:23 VACCINE (1 - PCV) [code = 65+ PNEUMOCOCCAL VACCINE (1 - PCV)] Future Scheduled Test 2022-01-03 INFLUENZA VACCINE [facility] 14:11:23 [code = INFLUENZA VACCINE] Future Scheduled Test 2021-11-28 HEPATITIS B VACCINES [facility] 00:25:38 (1 of 3 - 3-dose series) [code = HEPATITIS B VACCINES (1 of 3 - 3-dose series)] Future Scheduled Test 2021-11-28 Hepatitis C screening [facility] 00:25:38 (procedure) [code = 948246857] Future Scheduled Test 2021-11-28 Screening for [facility] 00:25:38 malignant neoplasm of cervix (procedure) [code = 814018791] Future Scheduled Test 2021-11-28 BREAST CANCER [facility] 00:25:38 SCREENING [code = BREAST CANCER SCREENING] Future Scheduled Test 2021-11-28 COLONOSCOPY SCREENING [facility] 00:25:38 [code = COLONOSCOPY SCREENING] Future Scheduled Test 2021-11-28 SHINGLES VACCINES (1 [facility] 00:25:38 of 2) [code = SHINGLES VACCINES (1 of 2)] Future Scheduled Test 2021-11-28 65+ PNEUMOCOCCAL [facility] 00:25:38 VACCINE (1 - PCV) [code = 65+ PNEUMOCOCCAL VACCINE (1 - PCV)] Future Scheduled Test 2021-11-28 INFLUENZA VACCINE [facility] 00:25:38 [code = INFLUENZA VACCINE] Future Scheduled Test 2021-11-28 HEPATITIS B VACCINES [facility] 00:25:38 (1 of 3 - 3-dose series) [code = HEPATITIS B VACCINES (1 of 3 - 3-dose series)] Future Scheduled Test 2021-11-28 Hepatitis C screening [facility] 00:25:38 (procedure) [code = 105645484] Future Scheduled Test 2021-11-28 Screening for [facility] 00:25:38 malignant neoplasm of cervix (procedure) [code = 822357460] Future Scheduled Test 2021-11-28 BREAST CANCER [facility] 00:25:38 SCREENING [code = BREAST CANCER SCREENING] Future Scheduled Test 2021-11-28 COLONOSCOPY SCREENING [facility] 00:25:38 [code = COLONOSCOPY SCREENING] Future Scheduled Test 2021-11-28 SHINGLES VACCINES (1 [facility] 00:25:38 of 2) [code = SHINGLES VACCINES (1 of 2)] Future Scheduled Test 2021-11-28 65+ PNEUMOCOCCAL [facility] 00:25:38 VACCINE (1 - PCV) [code = 65+ PNEUMOCOCCAL VACCINE (1 - PCV)] Future Scheduled Test 2021-11-28 INFLUENZA VACCINE [facility] 00:25:38 [code = INFLUENZA VACCINE] Instructions [facility] Clinic s Encounters Start End Encounter Admission Attending Care Care Encounter Source Date/Time Date/Time Type Type Clinicians Facility Department ID 2021-11-07 Outpatient [facility] [id number] [place] 01:51:34 [id number] [facility] 2021-10-07 Outpatient [facility] [id number] [place] 12:39:58 [id number] [facility] 2021-07-05 Outpatient SHIVA, [facility] [id number] [place] 01:03:47 LUCIEN [id number] [facility] 2022-08-12 2022-08-12 [place] [facility] [place] 00:00:00 00:00:00 Umair [facility] - ty C: [address], [address] [address] , Ph. 2022-08-04 2022-08-04 Outpatient CHRETIEN_F [facility] [id number] [place] 00:00:00 00:00:00 0516 [facility] 2022-07-21 2022-07-21 Outpatient CHRETIEN_F [facility] [id number] [place] 00:00:00 00:00:00 0424 Commun i ty Hospita l [facility] 2022-07-18 2022-07-18 Kaitlin [facility] [place] 00:00:00 00:00:00 [facility] - ty C: [address], [address], [place] [address] , Ph. 2022-07-08 2022-07-08 Outpatient CHRETIEN_F [facility] [id number] [place] 00:00:00 00:00:00 0411 [facility] 2022-07-08 2022-07-08 Outpatient CHRETIEN_F [facility] [id number] [place] 00:00:00 00:00:00 0421 [facility] 2022-07-08 2022-07-08 Kaitlin [facility] [place] 11 [place] 00:00:00 00:00:00 Julianne Block Co mamadou NAVARRETE-SLOT OPERATIONS MANAGER-B Hospital - ty C: [address], [address], [place] [address] , Ph. 2022-06-09 2022-06-09 Outpatient CHRETIEN_F [facility] [id number] [place] 00:00:00 00:00:00 0313 [facility] 2022-04-11 2022-04-11 [facility] [id number] [place] 00:00:00 00:00:00 0120 [facility] 2022-03-27 2022-03-27 Outpatient CHRETIEN_F [facility] [id number] [place] 00:00:00 00:00:00 1229 [facility] i [facility] Clinics 2022-03-27 2022-03-27 Emily [facility] [place] [id number] [place] 00:00:00 00:00:00 Julianne Longoria APRN, OLIVIA, Hospital - ty [facility]-: [address], [address], [place] [address] , Ph. 2022-03-26 2022-03-26 Outpatient CHRETIEN_F [facility] [id number] [place] 00:00:00 00:00:00 1228 [facility] Clinics 2022-02-24 2022-02-24 Outpatient CHRETIEN_F [facility] [id number] [place] 00:00:00 00:00:00 1128 Commun i [facility]osp[facility] Clinics 2022-02-24 2022-02-24 Kaitlin [facility] [place] [id number] [place] 00:00:00 00:00:00 Julianne Block [employer] mamadou NAVARRETE-SLOT OPERATIONS MANAGER-B Hospital - ty C: [address], [address], [place] [address] , Ph. 2022-02-23 2022-02-23 Outpatient SISSON_C [facility] [id number] [place] 00:00:00 00:00:00 1127 [facility] 2022-02-06 2022-02-06 Outpatient SISSON_C [facility] [id number] [place] 00:00:00 00:00:00 1110 [facility] i [facility] Clinics 2022-01-23 2022-01-23 Outpatient SISSON_C [facility] [id number] [place] 00:00:00 00:00:00 1027 Commun i ty Hospita [facility] Clinics 2022-01-23 2022-01-23 [facility] [place] 00:00:00 00:00:00 Julianne Lopez [facility] MSN, C[employer] SHAPER SIDES, Hospital - ty SLOT OPERATIONS MANAGER-C: [address] [place] [facility], Clinic s [address], [facility] [address], Mamta Lopez, [place] MSN, SLOT OPERATIONS MANAGER-C [address] , Ph. 2022-01-15 2022-01-15 Outpatient SISSON_C [facility] [id number] [place] 00:00:00 00:00:00 1019 Commun i ty Hospita l [facility] 2022-01-03 2022-01-03 Telephone Nick Vazquez.2.840.1 [id number] Methodi 00:00:00 00:00:00 Emily 14916.1.1 769 [facility] 3.430.2.7 Hosp bandar .3.438622 l .8 2022-01-03 2022-01-03 Telephone Nick Vazquez.2.840.1 [id number] 21 [id number] [facility]i 00:00:00 00:00:00 Emily 64274.1.1 769 [facility] 3.430.2.7 Hosp bandar .3.261592 l .8 2022-01-02 2022-01-02 Outpatient SISSON_C [facility] [id number] [place] 00:00:00 00:00:00 1006 Commun i ty Hospita [facility] Clinics 2021-12-30 2021-12-31 Inpatient CHICO Arauz, [facility] MEDI.01 [id number] [facility] 12:08:00 09:39:00 Elvia 07 [facility] [place] 2021-12-18 2021-12-18 Outpatient SISSON_C [facility] [id number] [place] 00:00:00 00:00:00 0921 Commun i ty Hospita [facility] Clinics 2021-12-18 2021-12-18 [facility] [place] 00:00:00 00:00:00 John [facility] MSN, CORE SHAPER SIDES, Hospital - ty SLOT OPERATIONS MANAGER-C: [address] [place] [facility] [facility], Clinic s [address], [address], [place], [place] MSN, SLOT OPERATIONS MANAGER-C [address] , Ph. 2021-12-12 2021-12-12 Outpatient [facility] [id number] [place] 00:00:00 00:00:00 0915 Commun i ty Hospita [facility] Clinics 2021-12-12 2021-12-12 [id number] 00:00:00 00:00:00 Willy [id number] 2021-12-12 2021-12-12 [facility] [place] 00:00:00 00:00:00 John [facility] MSN, C[employer] SHAPER SIDES, Hospital - ty SLOT OPERATIONS MANAGER-C: [address] [place] [facility] [facility], [facility] s [address], [address], [place] MSN, SLOT OPERATIONS MANAGER-C [address] , Ph. 2021-12-10 2021-12-10 Outpatient SISSON_C [facility] [id number] [place] 00:00:00 00:00:00 0913 Commun i ty Hospita [facility] Clinics 2021-11-11 2021-11-11 Outpatient CHRETIEN_F [facility] [id number] [place] 00:00:00 00:00:00 0815 Commun i ty Hospita [facility] Clinics 2021-11-08 2021-11-08 Outpatient CHRETIEN_F [facility] 1044 [place] 00:00:00 00:00:00 0812 Commun i ty Hospita [facility] Clinics 2021-11-08 2021-11-08 Outpatient Emily Longoria [facility] [id number] 00:00:00 00:00:00 [id number] 2021-11-08 2021-11-08 Emily [facility] [place] 00:00:00 00:00:00 Julianne Longoria [facility] reanna NAVARRETE, MSN, [facility]: [address], [address] [address] , Ph. 2021-10-22 2021-10-22 Outpatient CHRETIEN_F [facility] [id number] [place] 10:01:00 10:01:00 0726 Commun i ty Hospita l Clinics 2021-10-21 2021-10-21 Outpatient [facility] [id number] [place] 10:15:00 10:15:00 MATTHEW Escamilla 2021-10-21 2021-10-21 Outpatient CHRETIEN_F [facility] [id number] [place] 06:03:00 06:03:00 0725 Commun i ty Hospita l Clinics 2021-10-21 2021-10-21 Outpatient Chretipatric, [facility] [id number] 00:00:00 00:00:00 Kaitlin [id number] 2021-10-21 2021-10-21 Kaitlin [facility] [place] [id number] [place] 00:00:00 00:00:00 Umair [facility] mmuni CORE SHAPER SIDES-SLOT OPERATIONS MANAGER-B Hospital - ty C: [address], [address], [place] [address] , Ph. 2021-10-14 2021-10-14 Outpatient SHIVA, [facility] [id number] [facility] 07:36:00 14:00:00 [place] 2021-10-14 2021-10-14 Outpatient SHIVA, [facility] [id number] [place] 09:00:00 09:00:00 [facility] 2021-10-11 2021-10-11 Outpatient LISTER_CALDERONI NAVEEN [facility] [id number] [place] 10:21:00 10:21:00 SSA 0715 da [facility] h Program 2021-10-08 2021-10-08 Outpatient WATERS_S [facility] [id number] [place] 03:10:00 03:10:00 [facility]12 [facility] 2021-09-23 2021-09-23 Orders Provider, 1.2.840.1 [id number] Methodi 00:00:00 00:00:00 [place] [address].1.[address] 3.430.2.7 Hospit a .3.585955 l .8 2021-09-23 2021-09-23 Telephone Lord, 1.2.840.1 [id number] 2100 [id number] [facility] 00:00:00 00:00:[address] 3.430.2.7 Hospit a .3.208747 l .8 2021-09-23 2021-09-23 Orders Provider, 1.2.840.1 [id number] 2100 [id number] [facility]i 00:00:00 00:00:00 [place] [address].1.[address] 3.430.2.7 Hospit a .3.162394 l .8 2021-09-23 2021-09-23 Telephone Lord, 1.2.840.1 [id number] 2100 [id number] [facility] 00:00:00 00:00:[address] 3.430.2.7 Hospit a .3.931203 l .8 2021-09-20 2021-09-20 Outpatient WATERS_S [facility] [id number] [place] 12:16:00 12:16:00 0624 Commun i ty Hospita l Clinics 2021-09-20 2021-09-20 [facility] [place] 00:00:00 00:00:00 John, [facility] MSN, CORE SHAPER SIDES, Hospital - ty SLOT OPERATIONS MANAGER-C: [address] [place] [address] [facility] l [place], [facility], [facility] s [address], [facility] [address], [place], [place] MSN, SLOT OPERATIONS MANAGER-C [address] , Ph. 2021-09-20 2021-09-20 [facility] [id number] 00:00:00 00:00:00 Willy [id number] 2021-09-11 2021-09-11 Orders George 1.2.840.1 [id number] Methodi 00:00:00 00:00:00 Only Emily 78242.1.[address] [facility] 3.430.2.7 Hosp bandar .3.625805 l .8 2021-09-11 2021-09-11 Orders George 1.2.840.1 [id number] [id number] Methodi 00:00:00 00:00:00 Only Emily 58320.1.[address] [facility] 3.430.2.7 Hosp bandar .3.211167 l .8 2021-09-09 2021-09-09 Telephone George 1.2.840.1 [id number] Methodi 00:00:00 00:00:[address] [facility] 3.430.2.7 Hosp bandar .3.843667 l .8 2021-09-09 2021-09-09 Telephone George 1.2.840.1 [id number] Methodi 00:00:00 00:00:00 Emily 80487.1.1 699 [facility] 3.430.2.7 Hosp bandar .3.025148 l .8 2021-09-03 2021-09-03 Outpatient FRANCISCO_S [facility] 2021 [place] 01:31:00 01:31:00 0607 [facility] 2021-08-21 2021-08-21 Office George, 1.2.840.1 [id number] [id number] Methodi 14:45:00 15:41:16 Visit Emily 59991.1.[address] [facility] 3.430.2.7 Hosp bandar .3.550417 l .8 2021-08-21 2021-08-21 Travel 1.2.840.1 1.2.163.297 7066 [id number] Methodi 00:00:00 00:00:[address] 3.430.2.7 0.2.7.3.698 Ho spita .3.404185 084.8 l .8 2021-07-31 2021-07-31 Outpatient FRANCISCOS [facility] 2021 [place] 04:50:00 04:50:00 0504 Commun i ty Hospita l [facility] 2021-07-31 2021-07-31 [facility] [place] - Mam[place] 00:00:00 00:00:00 Julianne Lopez [facility] MSN, CORE SHAPER SIDES, Hospital - ty SLOT OPERATIONS MANAGER-C: [address] [place] [facility], [facility] s [address], [facility] [address], [place] Lopez, JOVANY MSN, SLOT OPERATIONS MANAGER-C [address] , Ph. 2021-07-31 2021-07-31 [facility] [id number] 00:00:00 00:00:00 Willy [id number] 2021-07-26 2021-07-26 Outpatient WATERS_S [facility] [id number] [place] 05:01:00 05:01:00 0429 Commun i ty Hospita l Clinics 2021-07-26 2021-07-26 Willy [facility] [place] 00:00:00 00:00:00 [facility] MSN, CORE SHAPER SIDES, Hospital - ty SLOT OPERATIONS MANAGER-C: [address] [place] [facility], Clinic s [address], [facility] [address], [place] Lopez, [place] MSN, SLOT OPERATIONS MANAGER-C [address] , Ph. 2021-07-26 2021-07-26 Outpatient John [facility] [id number] 00:00:00 00:00:00 Willy [id number] 2021-07-23 2021-07-23 Outpatient WATERS_S [facility] 2021 [place] 03:28:00 03:28:00 0426 Commun i ty Hospita l Clinics 2021-07-23 2021-07-23 Kaitlin [facility] [place] 00:00:00 [facility] mmuni CORE SHAPER SIDES-SLOT OPERATIONS MANAGER-B Hospital - ty C: [address] [facility], CLINIC [address], [place] [address] , Ph. 2021-07-23 2021-07-23 Outpatient Umair [facility] [id number] 00:00:00 00:00:00 Kaitlin [id number] 2021-07-13 2021-07-13 Outpatient WATERS_S [facility] [id number] [place] 01:29:00 01:29:00 0416 Commun i ty Hospita [facility] Clinics 2021-06-24 2021-06-24 Outpatient WATERS_S [facility] [id number] [place] 06:06:00 06:06:00 0328 Commun i ty Hospita [facility] Clinics 2021-06-24 2021-06-24 [place]oula [facility] [place] 00:00:00 00:00:00 [facility]-DELINQUENCY PREVENTION OFFICER-C: Hospital - ty [address] [place] [address] [address], [place] [address] , Ph. 2021-06-24 2021-06-24 Outpatient Francisco, [facility] [id number] 00:00:00 00:00:00 [place] [id number] 2021-05-30 2021-05-30 Outpatient W[facility]ERS[facility] [id number] [place] 04:28:00 04:28:00 0303 Commun i ty Hospita l [facility] 2021-05-30 2021-05-30 [place] [facility] [place] 00:00:00 00:00:00 [facility]IC[facility]-C: Hospital - ty [address] [place], [place] [address], [place] [address] , Ph. 2021-05-30 2021-05-30 Outpatient Francisco, [facility] [id number] 00:00:00 00:00:00 [place] [id number] 2021-04-26 2021-04-26 Outpatient W[facility]ERS_[facility] [id number] [place] 04:02:00 04:02:00 0128 Commun i ty Hospita l Clinics 2021-04-10 2021-04-10 Outpatient WATERS_S [facility] [id number] [place] 10:19:00 10:19:00 0112 Commun i ty Hospita l Clinics 2021-04-09 2021-04-09 Outpatient WATERS_S [facility] [id number] [place] 02:44:00 02:44:00 0111 Commun i ty Hospita l Clinics 2021-04-09 2021-04-09 [facility] [place] 00:00:00 00:00:00 [facility] 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 2021-02-25 2021-02-25 Outpatient Finn, [facility] [id number] 00:00:00 00:00:00 [place] [id number] 2021-01-14 2021-01-14 Outpatient W[facility]ERS_S [facility] 2020 [place] 05:43:00 05:43:00 1018 Commun i ty [facility] 2021-01-14 2021-01-14 Outpatient Finn, [facility] [id number] [id number] 00:00:00 00:00:00 [place] [id number]-[id number] 2021-01-14 2021-01-14 Outpatient Finn, [facility] [id number] c-[id number] 00:00:00 00:00:00 [place] [id number]-8 [id number] 2021-01-14 2021-01-14 [facility] [place] 18 [place] 00:00:00 00:00:00 [facility] uni 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 2020-10-16 2020-10-16 Outpatient WATERS_S [facility] [id number] [place] 02:24:00 02:24:00 0720 Commun ty Hospita [facility] 2020-10-16 2020-10-16 Outpatient Finn, [facility] [id number] 00:00:00 00:00:00 [place] [id number] 2020-10-16 2020-10-16 [place] [facility] [place] [id number] [place] 00:00:00 00:00:00 [facility] CORE SHAPER SIDES-DELINQUENCY PREVENTION OFFICER-C: [address] [address], [place] [address] , Ph. 2020-09-28 2020-09-28 Outpatient WATERS_S [facility] [id number] [place] 12:14:00 12:14:00 0702 [facility] 2020-09-28 2020-09-28 Outpatient Finn, [facility] [id number] 00:00:00 00:00:00 [place] [id number] 2020-09-28 2020-09-28 [facility] [place] [id number] [place] 00:00:00 00:00:00 [facility] CORE SHAPER SIDES-DELINQUENCY PREVENTION OFFICER-C: [address] [address], [place] [address] , Ph. 2020-09-28 2020-09-28 Outpatient Finn, [facility] [id number] 00:00:00 00:00:00 [place] [id number] 2020-08-30 2020-08-30 Outpatient WATERS_S [facility] [id number] [place] 05:28:00 05:28:00 0603 Commun [facility] Hospita l Clinics 2020-08-26 2020-08-26 Outpatient WATERS_S [facility] [id number] [place] 01:01:00 01:01:00 0530 Commun i ty Hospita l Clinics 2020-08-20 2020-08-20 Outpatient WATERS_S [facility] [id number] [place] 05:07:00 05:07:00 0524 Commun i ty Hospita l Clinics 2020-08-20 2020-08-20 [place] [facility] [place] 00:00:00 00:00:00 [facility] CORE SHAPER SIDES-DELINQUENCY PREVENTION OFFICER-C: Hospital - [address] [facility], [place] [address] , Ph. 2020-08-20 2020-08-20 Outpatient [facility] [id number] 00:00:00 00:00:00 [place] [id number] 2020-08-16 2020-08-16 [facility] [id number] [place] 00:00:00 00:00:00 SHIELA [address] 2020-08-13 2020-08-13 Outpatient [facility]ERS_[facility] [id number] [place] 04:15:00 04:15:00 0517 Commun i ty Hospita l Clinics 2020-08-13 2020-08-13 [place] [facility] [place] 00:00:00 00:00:00 [facility] CORE SHAPER SIDES-DELINQUENCY PREVENTION OFFICER-C: Hospital - ty [address] [place] [address] [address], [place] [address] , Ph. 2020-08-13 2020-08-13 Outpatient [facility] [id number] 00:00:00 00:00:00 [place] [id number] 2020-07-26 2020-07-26 Outpatient WATERS_S [facility] [id number] [place] 05:04:00 05:04:00 0429 Commun i ty Hospita l [facility] 2020-07-26 2020-07-26 [facility] [place] 00:00:00 00:00:00 [facility] CORE SHAPER SIDES-DELINQUENCY PREVENTION OFFICER-C: Hospital - ty [address] [facility] [address], [place] [address] , Ph. 2020-07-26 2020-07-26 Outpatient [facility] [id number] 00:00:00 00:00:00 [place] [id number] 2020-07-24 2020-07-24 Outpatient SUSTACHE, [facility] [id number] [place] 00:00:00 00:00:00 SHIELA [address] 2020-07-23 2020-07-23 Emergency E ANNABELLE, [facility] [address] [facility] 16:54:00 18:17:00 NICHELLE 2020-03-09 2020-03-09 Outpatient SHIVA, [facility] 75[address] [facility] 11:08:00 23:59:00 LUCIEN 2018-07-28 2018-07-28 Outpatient [facility] 7560 [facility] 01:39:00 01:39:00 Results Test Description Test Time Test Comments Results Result Comments Source SARS-CoV-2 (COVID-19) Ag [Presence] in Respiratory spe cimen by 2022-03-27 09:52:00 Rapid immunoassay Test Item Value Reference Range Interpretation Comme nts SARS CoV 2 (test code = SARS CoV 2) negative [facility] - Urine 2022-03-27 09:31:00 Test Item Value Reference Range Interpretation Comments Nitrite (test code = negative Nitrite) Urobilinogen (test code = .2 Urobilinogen) Protein (test code = Negative Protein) pH (test code = pH) 5.0 Blood (test code = Blood) Non-Hemolyzed: Moderate Specific [place] (test 1.015 code = Specific [place]) Ketone (test code = Negative Ketone) Bilirubin (test code = Negative Bilirubin) Glucose (test code = Negative Glucose) Appearance (test code = Clear Appearance) Color (test code = Color) Pale Yellow Leukocytes (test code = Negative Leukocytes) [facility] (A+B)2022-03-27 09:29:00 Test Item Value Reference Range Interpretation Comments FLU A (test code = FLU A) negative FLU B (test code = FLU B) negative [facility]ics[facility] IN[facility]SE [id number] 13:24:00 Test Item Value Reference Range Interpretation Comments COVID 19 INHOUSE AG NEGATIVE Negative Per manu facturer, (test code = negative result s should [id number]) be treated aspr esumptive and, if inconsi [...] and symptoms co nsistent with COVID-19. PROTHROMBIN [id number] 12:35:00 Test Item Value Reference Range Interpretation [...] (to prevent recurrent infar ct). THROMBOPLASTIN TIME [id number] 12:35:00 Test Item Value Reference Range Interpretation Comments THROMBOPLASTIN TIME PARTIAL 32.1 SECONDS 26-35 N (test code = PTT) BASIC METABOLIC [id number] 11:27:00 Test Item Value Reference Range Interpretation [...] CA) 9.4 MG/DL 8.5-10.1 N CBC W/AUTO [id number] 11:16:00 Test Item Value Reference Range Interpretation [...] code NO DIFF/SCN CRITERIA = MDIFF) URINALYSIS [id number] 10:02:00 Test Item Value Reference Range Interpretation [...] Specimen Type: Clean Catch- XR CHEST 1 [id number] 09:57:00 [facility] 1955 Sex: F Name: BOZENA MARSH [facility] : 1955 Age/S: 66 / F [address] Unit #: [id number] Loc: [place] [address] Phys: Gama Gabriel MD Acct: [id number] Dis Date: Status: PRE [facility] [place]ONE #: [phone] Exam Date: 12/27/2021 0957 FAX #: Reason: PREOP EXAMS: CPT: [id number] XR CHEST 1 V 07065 Fluoro Time: DAP (Gy m2): Air Kerma [...] MARSH : 03/1955 Age/S: 66 / F [address] Unit #: [id number] Loc: [place] [address] Phys: Gama Gabriel MD Acct: [id number] Dis Date: Status: PRE SDC PHONE #: [phone] Exam Date: 12/27/2021 09 FAX #: Reason: PREOP EXAMS: CPT: [id number] XR CHEST 1 V 25111 Fluoro Time: DAP (Gy m2): Air Kerma (mGy): (Continued) Technologist: Enedelia Salter, RT(R) Trnscb Date/Time: 12/27/2021 (956) t.SDR.HPD Orig Print D/T: S: 12/27/2021 (100) PAGE 2 Signed Report Urinalysis macro (dipstick) panel - [id number] 15:03:00 Test Item Value Reference Range Interpretation Comments Leukocytes (test code = Leukocytes) Small Nitrite (test code = Nitrite) negative Urobilinogen (test code = .2 Urobilinogen) Protein (test code = Protein) Trace pH (test code = pH) 7.0 Blood (test code = Blood) Moderate Specific [place] (test code = 1.015 Specific [place]) Ketone (test code = Ketone) Trace Bilirubin (test code = Bilirubin) Negative Glucose (test code = Glucose) Negative Appearance (test code = Appearance) Turbid Color (test code = Color) Yellow [facility]icsUrinalysis macro (dipstick) panel - Urine 2021-10-21 15:03:00 Test Item Value Reference Range Interpretation Comments Leukocytes (test code = Leukocytes) Small Nitrite (test code = Nitrite) negative Urobilinogen (test code = .2 Urobilinogen) Protein (test code = Protein) Trace pH (test code = pH) 7.0 Blood (test code = Blood) Moderate Specific [place] (test code = 1.015 Specific [place]) Ketone (test code = Ketone) Trace Bilirubin (test code = Bilirubin) Negative Glucose (test code = Glucose) Negative Appearance (test code = Appearance) Turbid Color (test code = Color) [facility] st[facility] group A, [id number] 14:56:00 Test Item Value Reference Range Interpretation Comments Strep (test code = Strep) negative [facility], [id number] 14:56:00 Test Item Value Reference Range Interpretation Comments Strep (test code = Strep) negative [facility]-CoV-2 (COVID-19) Ag [Presence] in Respiratory specimen by Rapid [id number] 14:55:00 Test Item Value Reference Range Interpretation Comments SARS CoV 2 (test code = SARS CoV 2) negative [facility]19[facility] Ag [Presence] in Respiratory specimen by Rapid [id number] 14:55:00 Test Item Value Reference Range Interpretation Comments SARS CoV 2 (test code = SARS CoV 2) negative [facility] urinalysis [id number] 19:36:00 Test Item Value Reference Range Interpretation Comments Color urine, POC (test Yellow code = 5629842) Clarity urine, POC (test Clear code = 8790805) Glucose urine, POC (test Negative Negative code = 7205530) Bilirubin urine, POC Negative Negative (test code = 7556561) Ketones urine, POC (test Negative Negative code = 2628116) Specific gravity urine, 1.005-1.030 POC (test code = 3276757) Blood urine, POC (test Trace Negative A code = 0135781) pH urine, POC (test code See_Comment [A utomated message] = 5181589) The system [employer] h generated this result transmitted ref erence range: 5.0, 5.5 , 6.0, 6.5, 7.0, 7.5, 8.0, 8.5. The refere nce range was not u sed to interpret this result as normal/abnor mal. Protein urine, POC (test Negative Negative code = 9551223) Urobilinogen urine, POC <2.0 See_Comment [Au tomated message] (test code = 5193561) The sy stem which generated this result transmitted ref erence range: <=2.0. T he reference range was not used to int erpret this result as normal/abnormal . Nitrite urine, POC (test Negative Negative code = 0738510) Leukocyte esterase Negative Negative urine, POC (test code = 7496471) Lab Interpretation (test Abnormal code = 85912-5) [facility] BLADDER SCAN/[id number] 19:36:00 Test Item Value Reference Range Interpretation Comments Volume (test code = 8652718) [facility] urinalysis [id number] 19:36:00 Test Item Value Reference Range Interpretation Comments Color urine, POC (test Yellow code = 7375494) Clarity urine, POC (test Clear code = 7875597) Glucose urine, POC (test Negative Negative code = 3357133) Bilirubin urine, POC Negative Negative (test code = 0994197) Ketones urine, POC (test Negative Negative code = 8150045) Specific gravity urine, 1.010 1.005-1.030 POC (test code = 3737021) Blood urine, POC (test Trace Negative A code = 8465436) pH urine, POC (test code 6.0 See_Comment [A utomated message] = 3217730) The system [employer]ference generated this result transmitted ref erence range: 5.0, 5.5 , 6.0, 6.5, 7.0, 7.5, 8.0, 8.5. The refere nce range was not u sed to interpret this result as normal/abnor mal. Protein urine, POC (test Negative Negative code = 2880119) Urobilinogen urine, POC <2.0 <=2.0 (test code = 7064837) Nitrite urine, POC (test Negative Negative code = 1198945) Leukocyte esterase Negative Negative urine, POC (test code = 1576962) Lab Interpretation (test Abnormal code = 49305-9) [facility] BLADDER SCAN/[id number] 19:36:00 Test Item Value Reference Range Interpretation Comments Volume (test code = 6906681) 28 [facility] urinalysis [id number] 19:36:00 Test Item Value Reference Range Interpretation Comments Color urine, POC (test Yellow code = 4010618) Clarity urine, POC (test Clear code = 9013093) Glucose urine, POC (test Negative Negative code = 6674445) Bilirubin urine, POC Negative Negative (test code = 6876139) Ketones urine, POC (test Negative Negative code = 1011758) Specific gravity urine, 1.010 1.005-1.030 POC (test code = 1607443) Blood urine, POC (test Trace Negative A code = 3473430) pH urine, POC (test code 6.0 See_Comment [A utomated message] = 3650679) The system [employer] generated this result transmitted ref erence range: 5.0, 5.5 , 6.0, 6.5, 7.0, 7.5, 8.0, 8.5. The refere nce range was not u sed to interpret this result as normal/abnor mal. Protein urine, POC (test Negative Negative code = 9055913) Urobilinogen urine, POC <2.0 <=2.0 (test code = 3719290) Nitrite urine, POC (test Negative Negative code = 3514676) Leukocyte esterase Negative Negative urine, POC (test code = 9503848) Lab Interpretation (test Abnormal code = 97905-1) [facility] BLADDER SCAN/[id number] 19:36:00 Test Item Value Reference Range Interpretation Comments Volume (test code = 7480458) 28 [facility] urinalysis [id number] 19:36:00 Test Item Value Reference Range Interpretation Comments Color urine, POC (test Yellow code = 1016981) Clarity urine, POC (test Clear code = 9220053) Glucose urine, POC (test Negative Negative code = 5875577) Bilirubin urine, POC Negative Negative (test code = 6576394) Ketones urine, POC (test Negative Negative code = 6730548) Specific gravity urine, 1.010 1.005-1.030 POC (test code = 5355030) Blood urine, POC (test Trace Negative A code = 1188505) pH urine, POC (test code 6.0 See_Comment [A utomated message] = 6004423) The system [employer] generated this result transmitted ref erence range: 5.0, 5.5 , 6.0, 6.5, 7.0, 7.5, 8.0, 8.5. The refere nce range was not u sed to interpret this result as normal/abnor mal. Protein urine, POC (test Negative Negative code = 8837188) Urobilinogen urine, POC <2.0 <=2.0 (test code = 6170442) Nitrite urine, POC (test Negative Negative code = 7537405) Leukocyte esterase Negative Negative urine, POC (test code = 3850531) Lab Interpretation (test Abnormal code = 44104-5) [facility] BLADDER SCAN/[id number] 19:36:00 Test Item Value Reference Range Interpretation Comments Volume (test code = 7827383) 28 [facility] urinalysis [id number] 19:36:00 Test Item Value Reference Range Interpretation Comments Color urine, POC (test Yellow code = 3502062) Clarity urine, POC (test Clear code = 2396213) Glucose urine, POC (test Negative Negative code = 3832979) Bilirubin urine, POC Negative Negative (test code = 3108689) Ketones urine, POC (test Negative Negative code = 6889462) Specific gravity urine, 1.010 1.005-1.030 POC (test code = 2160932) Blood urine, POC (test Trace Negative A code = 4909110) pH urine, POC (test code 6.0 See_Comment [A utomated message] = 1683331) The system [employer] In[employer] generated this result transmitted ref erence range: 5.0, 5.5 , 6.0, 6.5, 7.0, 7.5, 8.0, 8.5. The refere nce range was not u sed to interpret this result as normal/abnor mal. Protein urine, POC (test Negative Negative code = 0325388) Urobilinogen urine, POC <2.0 <=2.0 (test code = 8204268) Nitrite urine, POC (test Negative Negative code = 1484233) Leukocyte esterase Negative Negative urine, POC (test code = 6015389) Lab Interpretation (test Abnormal code = 92788-3) [facility] BLADDER SCAN/[id number] 19:36:00 Test Item Value Reference Range Interpretation Comments Volume (test code = 4372077) 28 [facility] urinalysis [id number] 19:36:00 Test Item Value Reference Range Interpretation Comments Color urine, POC (test Yellow code = 7721842) Clarity urine, POC (test Clear code = 8838490) Glucose urine, POC (test Negative Negative code = 3277478) Bilirubin urine, POC Negative Negative (test code = 0567958) Ketones urine, POC (test Negative Negative code = 9546325) Specific gravity urine, 1.005-1.030 POC (test code = 8773475) Blood urine, POC (test Trace Negative A code = 9224061) pH urine, POC (test code See_Comment [A utomated message] = 2169274) The system Scaled Inference generated this result transmitted ref erence range: 5.0, 5.5 , 6.0, 6.5, 7.0, 7.5, 8.0, 8.5. The refere nce range was not u sed to interpret this result as normal/abnor mal. Protein urine, POC (test Negative Negative code = 9808880) Urobilinogen urine, POC <2.0 See_Comment [Au tomated message] (test code = 5637815) The sy stem which generated this result transmitted ref erence range: <=2.0. T he reference range was not used to int erpret this result as normal/abnormal . Nitrite urine, POC (test Negative Negative code = 1186781) Leukocyte esterase Negative Negative urine, POC (test code = 9823880) Lab Interpretation (test Abnormal code = 09653-7) [facility] BLADDER SCAN/[id number] 19:36:00 Test Item Value Reference Range Interpretation Comments Volume (test code = 9244132) [facility] urinalysis gpmvgfwl6028-31-60 19:36:00 Test Item Value Reference Range Interpretation Comments Color urine, POC (test Yellow code = 0017639) Clarity urine, POC (test Clear code = 5018414) Glucose urine, POC (test Negative Negative code = 6489379) Bilirubin urine, POC Negative Negative (test code = 9592052) Ketones urine, POC (test Negative Negative code = 2426550) Specific gravity urine, 1.005-1.030 POC (test code = 9600543) Blood urine, POC (test Trace Negative A code = 3808092) pH urine, POC (test code See_Comment [A utomated message] = 3905195) The system [employer] generated this result transmitted ref erence range: 5.0, 5.5 , 6.0, 6.5, 7.0, 7.5, 8.0, 8.5. The refere nce range was not u sed to interpret this result as normal/abnor mal. Protein urine, POC (test Negative Negative code = 7360818) Urobilinogen urine, POC <2.0 See_Comment [Au tomated message] (test code = 7266229) The sy stem which generated this result transmitted ref erence range: <=2.0. T he reference range was not used to int erpret this result as normal/abnormal . Nitrite urine, POC (test Negative Negative code = 7945034) Leukocyte esterase Negative Negative urine, POC (test code = 5601659) Lab Interpretation (test Abnormal code = 57692-3) [facility] BLADDER SCAN/[id number] 19:36:00 Test Item Value Reference Range Interpretation Comments Volume (test code = 6643531) [facility] urinalysis fgcoknwe9176-13-81 19:36:00 Test Item Value Reference Range Interpretation Comments Color urine, POC (test Yellow code = 8832687) Clarity urine, POC (test Clear code = 4525366) Glucose urine, POC (test Negative Negative code = 5749328) Bilirubin urine, POC Negative Negative (test code = 5144329) Ketones urine, POC (test Negative Negative code = 1810975) Specific gravity urine, 1.005-1.030 POC (test code = 8613228) Blood urine, POC (test Trace Negative A code = 2009945) pH urine, POC (test code See_Comment [A utomated message] = 5209102) The system [employer] h generated this result transmitted ref erence range: 5.0, 5.5 , 6.0, 6.5, 7.0, 7.5, 8.0, 8.5. The refere nce range was not u sed to interpret this result as normal/abnor mal. Protein urine, POC (test Negative Negative code = 0349697) Urobilinogen urine, POC <2.0 See_Comment [Au tomated message] (test code = 6267666) The sy stem which generated this result transmitted ref erence range: <=2.0. T he reference range was not used to int erpret this result as normal/abnormal . Nitrite urine, POC (test Negative Negative code = 9037406) Leukocyte esterase Negative Negative urine, POC (test code = 9505012) Lab Interpretation (test Abnormal code = 16682-7) [facility] BLADDER SCAN/[id number] 19:36:00 Test Item Value Reference Range Interpretation Comments Volume (test code = 3405546) [facility] urinalysis [id number] 19:36:00 Test Item Value Reference Range Interpretation Comments Color urine, POC (test Yellow code = 2001585) Clarity urine, POC (test Clear code = 3734246) Glucose urine, POC (test Negative Negative code = 2424281) Bilirubin urine, POC Negative Negative (test code = 6601257) Ketones urine, POC (test Negative Negative code = 6322484) Specific gravity urine, 1.005-1.030 POC (test code = 2291567) Blood urine, POC (test Trace Negative A code = 0348607) pH urine, POC (test code See_Comment [A utomated message] = 9832758) The system [employer] generated this result transmitted ref erence range: 5.0, 5.5 , 6.0, 6.5, 7.0, 7.5, 8.0, 8.5. The refere nce range was not u sed to interpret this result as normal/abnor mal. Protein urine, POC (test Negative Negative code = 2079421) Urobilinogen urine, POC <2.0 See_Comment [Au tomated message] (test code = 8667354) The sy stem which generated this result transmitted ref erence range: <=2.0. T he reference range was not used to int erpret this result as normal/abnormal . Nitrite urine, POC (test Negative Negative code = 1380715) Leukocyte esterase Negative Negative urine, POC (test code = 8277641) Lab Interpretation (test Abnormal code = 43671-9) [facility] BLADDER SCAN/[id number] 19:36:00 Test Item Value Reference Range Interpretation Comments Volume (test code = 2301162) [facility] urinalysis zjjotnni3764-21-83 19:36:00 Test Item Value Reference Range Interpretation Comments Color urine, POC (test Yellow code = 6168967) Clarity urine, POC (test Clear code = 8230365) Glucose urine, POC (test Negative Negative code = 7378362) Bilirubin urine, POC Negative Negative (test code = 7508763) Ketones urine, POC (test Negative Negative code = 7083612) Specific gravity urine, 1.005-1.030 POC (test code = 2139849) Blood urine, POC (test Trace Negative A code = 2354838) pH urine, POC (test code See_Comment [A utomated message] = 3320421) The system [employer] generated this result transmitted ref erence range: 5.0, 5.5 , 6.0, 6.5, 7.0, 7.5, 8.0, 8.5. The refere nce range was not u sed to interpret this result as normal/abnor mal. Protein urine, POC (test Negative Negative code = 2406800) Urobilinogen urine, POC <2.0 See_Comment [Au tomated message] (test code = 9834543) The sy stem which generated this result transmitted ref erence range: <=2.0. T he reference range was not used to int erpret this result as normal/abnormal . Nitrite urine, POC (test Negative Negative code = 6616073) Leukocyte esterase Negative Negative urine, POC (test code = 0723135) Lab Interpretation (test Abnormal code = 31272-8) [facility] BLADDER SCAN/[id number] 19:36:00 Test Item Value Reference Range Interpretation Comments Volume (test code = 5252525) [facility] by Pibcwzr2754-59-73 00:00:00 Test Item Value Reference Range Interpretation Comments Bacteria identified in Urine by no growth Culture (test code = 630-4) [facility] 2021-07-24 00:00:00 Test Item Value Reference Range Interpretation Comments Bacteria identified in Urine by no growth Culture (test code = 630-4) [facility]written ayhyacxqewqdd7771-28-94 00:00:00 Test Item Value Reference Range Interpretation Comments written authorization (test code = comment written authorization) [facility] 2021-06-29 00:00:00 Test Item Value Reference Range Interpretation Comments Bacteria identified in Urine by no growth Culture (test code = 630-4) [facility] 2021-06-29 00:00:00 Test Item Value Reference Range Interpretation Comments Bacteria identified in Urine by no growth Culture (test code = 630-4) [facility] 2021-06-29 00:00:00 Test Item Value Reference Range Interpretation Comments Bacteria identified in Urine by no growth Culture (test code = 630-4) [facility] 2021-06-29 00:00:00 Test Item Value Reference Range Interpretation Comments Bacteria identified in Urine by no growth Culture (test code = 630-4) [facility] macro (dipstick) panel - Urine 2021-06-27 16:17:00 Test Item Value Reference Range Interpretation Comments Leukocytes (test code = Small Leukocytes) Nitrite (test code = negative Nitrite) Urobilinogen (test code = .2 Urobilinogen) Protein (test code = Negative Protein) pH (test code = pH) 7.5 Blood (test code = Blood) Non-Hemolyzed: Trace Specific [place] (test 1.000 code = Specific [place]) Ketone (test code = Negative Ketone) Bilirubin (test code = Negative Bilirubin) Glucose (test code = Negative Glucose) Appearance (test code = Clear Appearance) Color (test code = Color) Pale Yellow [facility] macro (dipstick) panel - Urine 2021-06-27 16:17:00 Test Item Value Reference Range Interpretation Comments Leukocytes (test code = Small Leukocytes) Nitrite (test code = negative Nitrite) Urobilinogen (test code = .2 Urobilinogen) Protein (test code = Negative Protein) pH (test code = pH) 7.5 Blood (test code = Blood) Non-Hemolyzed: Trace Specific [place] (test 1.000 code = Specific [place]) Ketone (test code = Negative Ketone) Bilirubin (test code = Negative Bilirubin) Glucose (test code = Negative Glucose) Appearance (test code = Clear Appearance) Color (test code = Color) Pale Yellow [facility]CB [facility] Auto Differential panel - [id number] 00:00:00 Test Item Value Reference Range Interpretation [...] = 706-2) immature cells (test code = fire prevention forester immature cells) Neutrophils [#/volume] in Blood 3.7 [...] Blood by Automated count (test code = 60268-8) Immature granulocytes 0.0 x10e3/uL 0.0-0.1 [#/volume] in Blood by Automated count (test code = 86524-7) Nucleated erythrocytes/100 fire prevention forester leukocytes [Ratio] in Blood by Automated count (test code = 57830-1) Morphology [Interpretation] in fire prevention forester Blood Narrative (test code = 89873-0) [facility] 2000 panel - Serum or Nabbla8212-00-55 00:00:00 Test Item Value Reference Range Interpretation [...] mg/dL 8.7-10.3 or Plasma (test code = 05232-0) Protein [Mass/volume] in Serum 6.5 g/dL 6.0-8.5 or Plasma (test code = 2885-2) Albumin [Mass/volume] in Serum 4.4 g/dL 3.8-4.8 or Plasma (test code = 1751-7) Globulin [Mass/volume] in 2.1 g/dL 1.5-4.5 Serum by calculation (test code = 22277-6) Albumin/Globulin [Mass Ratio] 2.1 1.2-2.2 in Serum [...] Serum or Plasma (test code = 1742-6) [facility]yrotropin [Units/volume] in Serum or Plasma by Detection limit <= 0.005 mIU/[id number] 00:00:00 Test Item Value Reference Range Interpretation Comments Thyrotropin [Units/volume] in 2.820 uIU/mL 0.450-4.500 Serum or Plasma by Detection limit <= 0.005 mIU/L (test code = 24662-7) [facility]Thyroxine (T4) free [Mass/volume] in Serum or Lxvtkj3484-60-92 00:00:00 Test Item Value Reference Range Interpretation Comments Thyroxine (T4) free [Mass/volume] 1.04 NG/dL 0.82-1.77 in Serum or Plasma (test code = 3024-7) [facility] test gkcvxgfzc7278-28-80 00:00:00 Test Item Value Reference Range Interpretation Comments dear doctor, (test code = dear comment doctor,) [facility] HospitalLipid 1996 panel - Serum or Tfodrd8996-36-06 00:00:00 Test Item Value Reference Range Interpretation [...] or Plasma by calculation (test code = 49802-1) Cholesterol in LDL [Mass/volume] in 156 mg/dL 0-99 H Serum or Plasma by calculation (test code = 15893-5) Laboratory comment [Text] in Report fire prevention forester Narrative (test code = 11426-2) Cholesterol in LDL/Cholesterol in 3.0 ratio 0.0-3.2 HDL [Mass Ratio] in Serum or Plasma (test code = 24433-6) [facility]Helicobacter pylori IgA and IgG and IgM [Interpretation] in Serum or Kaasow8612-68-67 00:00:00 Test Item Value Reference Range Interpretation Comments Helicobacter pylori IgG Ab 0.45 index value 0.00-0.79 [Units/volume] in Serum by Immunoassay (test code = 5176-3) Helicobacter pylori IgA Ab <9.0 0.0-8.9 [Units/volume] in Serum (test code = 7901-2) Helicobacter pylori IgM Ab <9.0 0.0-8.9 [Units/volume] in Serum (test code = 7903-8) [facility]Folate+Cyanocobalamin [Interpretation] in Serum or [id number] 00:00:00 Test Item Value Reference Range Interpretation Comments Cobalamin (Vitamin B12) 920 pg/mL 232-1245 [Mass/volume] in Serum or Plasma (test code = 2132-9) Folate [Mass/volume] in Serum or >20.0 >3.0 Plasma (test code = 2284-8) [facility]-Hydroxyvitamin D3+25-Hydroxyvitamin D2 [Mass/volume] in Serum or [id number] 00:00:00 Test Item Value Reference Range Interpretation Comments 25-Hydroxyvitamin 36.5 NG/mL 30.0-100.0 D3+25-Hydroxyvitamin D2 [Mass/volume] in Serum or Plasma (test code = 39006-5) [facility]Ferritin [Mass/volume] in Serum or Plasma 2021-06-25 00:00:00 Test Item Value Reference Range Interpretation Comments Ferritin [Mass/volume] in Serum or 96 NG/mL 15-150 Plasma (test code = 2276-4) [facility]inalysis macro (dipstick) panel - Urine 2021-04-09 13:17:00 Test Item Value Reference Range Interpretation Comments Leukocytes (test code = Small Leukocytes) Nitrite (test code = negative Nitrite) Urobilinogen (test code = .2 Urobilinogen) Protein (test code = Negative Protein) pH (test code = pH) 5.0 Blood (test code = Blood) Hemolyzed: Trace Specific [place] (test code 1.015 = Specific [place]) Ketone (test code = Ketone) Negative Bilirubin (test code = Negative Bilirubin) Glucose (test code = Negative Glucose) [facility] ([facility]OVID-19) Ag [Presence] in Respiratory specimen by Rapid nbvspqyrcbd4884-23-27 16:26:00 Test Item Value Reference Range Interpretation Comments SARS CoV 2 (test code = SARS CoV 2) negative [facility] ([facility]-19) Ag [Presence] in Respiratory specimen by Rapid bjzkoqbewbo1883-99-86 16:26:00 Test Item Value Reference Range Interpretation Comments SARS CoV 2 (test code = SARS CoV 2) negative [facility] ([facility]-19) Ag [Presence] in Respiratory specimen by Rapid bemrzwqsbut1506-40-23 16:26:00 Test Item Value Reference Range Interpretation Comments SARS CoV 2 (test code = SARS CoV 2) negative [facility] ([facility]-19) Ag [Presence] in Respiratory specimen by Rapid cutvdksavsp6981-22-64 16:26:00 Test Item Value Reference Range Interpretation Comments SARS CoV 2 (test code = SARS CoV 2) negative [facility] (A+B)2021-02-25 16:10:00 Test Item Value Reference Range Interpretation Comments FLU A (test code = FLU A) negative FLU B (test code = FLU B) negative [facility] flu (A+B)2021-02-25 16:10:00 Test Item Value Reference Range Interpretation Comments FLU A (test code = FLU A) negative FLU B (test code = FLU B) [facility] 16:10:00 Test Item Value Reference Range Interpretation Comments FLU A (test code = FLU A) negative FLU B (test code = FLU B) [facility]2021-02-25 16:10:00 Test Item Value Reference Range Interpretation Comments FLU A (test code = FLU A) negative FLU B (test code = FLU B) negative [facility] strep group A, [id number] 16:09:00 Test Item Value Reference Range Interpretation Comments Strep (test code = Strep) positive [facility] strep group A, [id number] 16:09:00 Test Item Value Reference Range Interpretation Comments Strep (test code = Strep) positive [facility] strep group A, [id number] 16:09:00 Test Item Value Reference Range Interpretation Comments Strep (test code = Strep) positive [facility] strep group A, [id number] 16:09:00 Test Item Value Reference Range Interpretation Comments Strep (test code = Strep) positive [facility]Heterophile Ab [Presence] in Blood by Vldgljdnkve0081-13-71 15:33:00 Test Item Value Reference Range Interpretation Comments Weakley (test code = Weakley) negative [facility]Heterophile Ab [Presence] in Blood by Lvofptrrxgk8103-06-50 15:33:00 Test Item Value Reference Range Interpretation Comments Weakley (test code = Weakley) negative [facility]Iron and Iron binding capacity panel - Serum or Hhanvo1784-04-69 00:00:00 Test Item Value Reference Range Interpretation [...] Serum or Plasma (test code = 2502-3) [facility]Folate+Cyanocobalamin [Interpretation] in Serum or [id number] 00:00:00 Test Item Value Reference Range Interpretation Comments Cobalamin (Vitamin B12) 971 pg/mL 232-1245 [Mass/volume] in Serum or Plasma (test code = 2132-9) Folate [Mass/volume] in Serum or >20.0 >3.0 Plasma (test code = 2284-8) [facility] HospitalPhosphate [Mass/volume] in Serum or Plasma 2020-07-27 00:00:00 Test Item Value Reference Range Interpretation Comments Phosphate [Mass/volume] in Serum or 3.0 mg/dL 3.0-4.3 Plasma (test code = 2777-1) [facility] HospitalErythrocyte sedimentation rate by Westergren [id number] 00:00:00 Test Item Value Reference Range Interpretation Comments Erythrocyte sedimentation rate by 4 mm/HR 0-40 Westergren method (test code = 4537-7) [facility] HospitalMagnesium [Mass/volume] in Serum or Plasma 2020-07-27 00:00:00 Test Item Value Reference Range Interpretation Comments Magnesium [Mass/volume] in Serum or 2.2 mg/dL 1.6-2.3 Plasma (test code = 80853-8) [facility] HospitalIron and Iron binding capacity panel - Serum or Cflsme9627-11-72 00:00:00 Test Item Value Reference Range Interpretation [...] Serum or Plasma (test code = 2502-3) [facility]Folate+Cyanocobalamin [Interpretation] in Serum or Aymqi7293-10-95 00:00:00 Test Item Value Reference Range Interpretation Comments Cobalamin (Vitamin B12) 971 pg/mL 232-1245 [Mass/volume] in Serum or Plasma (test code = 2132-9) Folate [Mass/volume] in Serum or >20.0 >3.0 Plasma (test code = 2284-8) [facility]Phosphate [Mass/volume] in Serum or Plasma 2020-07-27 00:00:00 Test Item Value Reference Range Interpretation Comments Phosphate [Mass/volume] in Serum or 3.0 mg/dL 3.0-4.3 Plasma (test code = 2777-1) [facility] HospitalErythrocyte sedimentation rate by Westergren [id number] 00:00:00 Test Item Value Reference Range Interpretation Comments Erythrocyte sedimentation rate by 4 mm/HR 0-40 Westergren method (test code = 4537-7) [facility] HospitalMagnesium [Mass/volume] in Serum or Plasma 2020-07-27 00:00:00 Test Item Value Reference Range Interpretation Comments Magnesium [Mass/volume] in Serum or 2.2 mg/dL 1.6-2.3 Plasma (test code = 94575-8) [facility]G2018-10-05 11:22:00 RUN DATE: 01/01/18 [facility] - LAB *LIVE* PAGE 1 RUN TIME: 1122 Specimen Inquiry RUN USER: INTERFACE PATIENT: BOZENA MARSH LOC: EVA U #: [id number] AGE/SX: 62/F ROOM: RE12/31/17[facility]: Raz Gaspar III : 57 BED: DIS: STATUS: [facility] TLOC: SPEC #: [id number] RECD: 12/31/17 STATUS: HENRY DANNY #: [id number] SHYANN: 12/31/[address]: Raz Gaspar III, MD ENTERED: 12/31/17 SP TYPE: SURG OTHR DR: No Primary or Family PhysicianORDERED: SURG PATH LVL 1, SURG PATH LVL 4 COPIES TO: No Primary [place] [address] [facility] [address] [place] [address] HISTOLOGY: TISSUE ID BLK PCS ANAIS LEV PROCEDURE DISPOSITION ____ ___ ___ ___ NASAL TURBINATE A 1 1 NASAL SEPTUM, N B 1 1 PROCEDURES: SURG PATH LVL 1 (01/01/18) SURG PATH LVL 4 (01/01/18) TISSUES: A. NASAL TURBINATE, NOS - BILATERAL INFERIOR TURBINATES B. NASAL SEPTUM, NOS - SEPTUM CPT CODES CPT CODE(S): 21259 , 60015 , , , , , FINAL DIAGNOSIS A. Inferior turbinate, bilateral, endoscopic sinus surgery: SINUS CONTENTS CONSISTENT WITH CHRONIC SINUSITIS B. Nasal septum, septoplasty: BONE AND CARTILAGE (GROSS ONLY) GROSS DESCRIPTION A. Bilateral inferior turbinates. Received in formalin are irregularfragments of sauceda-brown soft tissue admixed with dark brown blood clots, 2.7 x 1.8 x 1.0 cm in aggregate. General Intern sections submitted as A. B. Septum. Received in formalin are multiple irregular fragments of cartilage CONTINUED ON NEXT PAGE RUN DATE: 01/01/18 [facility] - LAB *LIVE* PAGE 2 RUN TIME: 1122 Specimen Inquiry RUN USER: INTERFACE SPEC #: [facility]:[id number] PATIENT: BOZENA MARSH #[id number] (Continued) GROSS DESCRIPTION (Continued) and bones, 5.0 x 3.5 x 0.7 cm in aggregate. The specimen is photographed for gross identification only. ba/nr Grossing performed at [facility], [address], [address], [place], [place] [address]. Composite Science Teacher: Ralph Dash M.D. MICROSCOPIC DESCRIPTION A. Bilateral inferior turbinates. Fragments of respiratory epithelium lined mucosa. There are benign mucus glands and a chronic inflammatory infiltrate. Fragments of unremarkable cartilage and bone present. No evidence of malignancy. B. Septum. For gross identification only. /doug Signed SIGNATURE ON FILE Kel Chatterjee 01/01/18 1122 END OF REPORT Notes Date/Time Note Provider Source 2021-12-30 20:16:00-00:00 [id number] [facility] [address] [place] [address] PATIENT NAME: BOZENA MARSH ADMIT DATE: 2 ACCOUNT NO: [id number] ROOM NO: L.S216 AGE: 66 REPORT TYPE: OPERATIVE REPORT SEX: F ADMITTING PHYSICIAN: Elvia Arauz MD ATTENDING PHYSICIAN: Elvia Arauz MD OPERATION DATE: 12/30/2021 PREOPERATIVE DIAGNOSES: Posterior wall defect, s tage II, possible posterior enterocele. 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 PROCEDURE PERFORMED: Posterior wall repair, post erior enterocele repair and perineocele repair. SURGEON: Elvia Arauz MD ATOMIC FUEL ASSEMBLER: Parvez. ANESTHESIA: General. 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 Aislinn vera was sent to a colorectal surgeon for [...] when her daughter was present at the [facility]'s bedside. We reviewed all these. The patient [...] to the perineum. PATIENT NAME: BOZENA MARSH 00002 Then, dissection carried abo ve on the [...] PATIENT NAME: BOZENA MARSH 9207 Receipt ID: [id number] Authenticated by Elvia Arauz MD On 01/30 01:03:10 PM at 0103 PATIENT NAME: BOZENA MARSH 9207 2021-12-30 18:11:00-00:00 [facility] ([facility]) Brief Op Note REPORT#:[id number] REPORT STATUS: Signed DATE:12/30/21 TIME:1810 PATIENT: BOZENA MARSH UNIT #: [id number] ROOM/BED: : 56 AGE: 66 SEX: F ATTEND: Sa nolan Arauz MD ADM AUTHOR: Elvia Arauz MD * ALL edits or amendments must be made on the el [employer]/computer document * Op/Inv Proc Note - Brief Pre-procedure diagnosis: posterior wall defect stage 2 Post-procedure diagnosis: same as pre procedure dx, posterior enterocele, and perineocele Procedures performed: posterior wall , enterocele and perineocele repa irs Primary Surgeon: chad Orthotic Practitioner(s): Parvez Anesthesia: general anesthesia Findings: pop q -2/-2/-6/5/thin/7/0/+1/-4 Complications: none Estimated blood loss in ml's: 50 Specimens removed/altered: none Drain(s): Nunez Catheter Placed Fluids: 1200 Urine output: 50 Approach: vag Wound class: clean-contaminated Disposition: MEDSURG Counts: Sponge count: correct Instrument count: correct Needle count: correct Electronically Signed by Elvia Arauz MD o n 12/30/21 at 2004 RPT #: [id number] END OF REPORT 2021-12-27 08:52:00-00:00 [id number] [facility] [address] [place] [address] PATIENT NAME: BOZENA MARSH ADMIT DATE: 2 ACCOUNT NO: [id number] ROOM NO: S216 AGE: 66 REPORT TYPE: eELECTROCARDIOGRAM SEX: F ADMITTING PHYSICIAN: Elvia Arauz MD ATTENDING PHYSICIAN: Elvia Arauz MD Order: [id number] Test Reason : PRE OP Test Date/Time [...] wave abnormality Confirmed by MD Agustina, Beti ([id number]) on 9:48:10 AM Referred By: Elvia Arauz Confirmed by:Beti Berrios MD at 0948 PATIENT NAME: BOZENA MARSH 9207
[2022-08-24] MEDS ORDERED: DIAZEPAM 5 MG TABLET ONE (11:58)
[2022-08-24] MEDS ORDERED: dexAMETHasone 10 MG/ML VIAL ONE (11:59)
[2022-08-24] MEDS ORDERED: FENTANYL CITR 100 MCG/2 ML ONE (11:59)
[2022-08-24] MEDS ORDERED: NA CHLORIDE 0.9% 1,000 ML ONE (11:59)
[2022-08-24] MEDS ORDERED: KETOROLAC 30 MG/ML INJ ONE (11:59)
[2022-08-24] MEDS ORDERED: ONDANSETRON 4 MG/2 ML VIAL ONE (11:59)
[2022-08-24 12:19] LABS: Absolute Lymphocytes (CBC) 1.4 K/uL (0.7-4.9); Hematocrit 46.7 % (36.0-45.0); Lymphocytes % 30.3 % (15.3-44.8); MCV 89.7 fL (80-100); RBC Red Blood Cell Count 5.21 M/uL (3.86-4.86)
[2022-08-24 12:28] LABS: Urine Bacteria 20-50 /HPF (<20); Urine Bilirubin NEGATIVE (Negative); Urine Blood Negative (Negative); Urine Clarity Turbid (Clear); Urine Color Yellow (Yellow); Urine Glucose NEGATIVE (Negative); Urine Mucus Slight /HPF (None Seen); Urine Protein TRACE (Negative); Urine RBC <5 /HPF (None Seen); Urine Urobilinogen Normal (Normal)
[2022-08-24 12:38] LABS: Albumin 3.6 g/dL (3.4-5.0); Bilirubin Total 0.6 mg/dL (0.2-1.0); Protein, Total 6.9 g/dL (6.4-8.2)
--- NOTE | 2022-08-24 12:54 | RAD REPORT ---
EXAM DESCRIPTION: CT - Head C Spine Cap Wo Con - 08/24/2022 12:40 pm CLINICAL HISTORY: Trauma, head and neck injury. Chest, abdomen and pelvis pain. TRAUMA COMPARISON: No comparisons TECHNIQUE: CT head without contrast. CT cervical spine without contrast with coronal and sagittal reformatted images. CT chest, abdomen and pelvis without contrast with coronal and sagittal reformatted images of the [facility]. All CT scans are performed using dose optimization technique as appropriate and may include automated exposure control or mA/KV adjustment according to patient size. FINDINGS: CT HEAD WITHOUT CONTRAST: No intracranial hemorrhage, hydrocephalus or extra-axial fluid collection. No areas of brain edema o r midline shift. The paranasal sinuses and mastoids are clear. The calvarium is intact. CT CERVICAL SPINE WITHOUT CONTRAST: No fracture or subluxation. The prevertebral soft tissues are normal in thickness.Mild cervical spon dylosis with uncovertebral joint hypertrophy and posterior disc osteophyte complexes at C5-6 and C6-7 that results in mild neural foraminal narrowing. CT CHEST, ABDOMEN, PELVIS WITHOUT CONTRAST: NOTE: Lack of contrast is a significant limitation in the assessment of trauma related findings. Spec ifically, solid organ, vascular and bowel evaluation is significantly limited. The lungs are clear.No pneumothorax or pericardial/pleural fluid. No evidence of intra-abdominal visceral injury, free fluid or free air is seen within the above detai led limitations. Low-density liver lesions that are incompletely characterized but statistically david gn. Bilateral benign renal sinus and renal cortical cysts. Punctate stone in the right kidney. Cholec ystectomy. Normal appendix. Small fat containing inguinal hernias. No concerning pelvic findings. No fractures. Grade 1 anterolisthesis of L4 on L5. IMPRESSION: Negative for acute traumatic findings within the above detailed limitations.
--- NOTE | 2022-08-24 13:04 | ER ---
Nurse's Notes [facility] Name: Tracey Rodriguez Age: 66 yrs Sex: Female : 1955 Arrival Date: 08/24/2022 Time: 10:48 Bed 20 Private MD: Diagnosis: Rash and other nonspecific skin eruption;Low back pain;Strain of muscle and tendon of back wall of thorax;Spondylolysis, cervical [id number] ANTEROLISTHESIS Presentation: 08/24 10:52 Chief complaint: Patient states: Diagnosed with "internal shingles" 3 weeks ago. Pt nj1 states it is getting worse, very painful. She also complains of depression, "i have a lot going on". Denies suicidal/homicidal ideations. Coronavirus screen: Vaccine status: Patient reports being unvaccinated. Ebola Screen: Patient denies travel to an Ebola-affected area in the 21 days before illness onset. Initial Sepsis Screen: Does the patient meet any 2 criteria? No. Patient's initial sepsis screen is negative. Does the patient have a suspected source of infection? No. Patient's initial sepsis screen is negative. 10:52 Method Of Arrival: Ambulatory nj1 10:52 Risk Assessment: Do you want to hurt yourself or someone else? Patient reports no nj1 desire to harm self or others. Onset of symptoms was August 03, 2022. 10:52 Acuity: ANUJA 3 nj1 Historical: - Allergies: 10:52 anti-inflammatory (all); nj1 10:52 Ciprofloxacin; nj1 10:52 fluoroquinolones; nj1 10:52 Levaquin; nj1 10:52 Sulfa (Sulfonamide Antibiotics); nj1 - PMHx: 10:52 Diverticulitis; nj1 - PSHx: 10:52 carpal tunnal repair; Colectomy; Ligation of fallopian tube; nj1 - Immunization history:: Client reports having NOT received the Covid vaccine. - Social history:: Smoking status: Patient denies any tobacco usage or history of. Screenin:40 [facility] ED Fall Risk Assessment (Adult) History of falling in the last 3 months, kc6 including since admission No falls in past 3 months (0 pts) Confusion or Disorientation No (0 pts) Intoxicated or Sedated No (0 pts) Impaired Gait No (0 pts) Mobility Assist Device Used No (0 pt) Altered Elimination No (0 pt) Score/Fall Risk Level 0 - 2 = Low Risk Oriented to surroundings, Maintained a safe environment, Educated pt \\T\\ family on fall prevention, incl call for assistance when getting out of bed, Assessed \\T\\ reinforced patient's understanding of fall precautions, Hourly rounding (assess needs \\T\\ fall precautionary measures) done. Abuse screen: Denies threats or abuse. Denies injuries from another. Nutritional screening: No deficits noted. Tuberculosis screening: No symptoms or risk factors identified. Assessment: 11:39 General: Appears in no apparent distress. comfortable, Behavior is calm, cooperative, kc6 appropriate for age. Pain: Complains of pain in "all over" Quality of pain is described as burning. Neuro: Cody Agitation-Sedation Scale (RASS): 0 - Alert and Calm Level of Consciousness is awake, alert, obeys commands, Oriented to person, place, time, situation, Appropriate for age. Cardiovascular: Capillary refill < 3 seconds. Respiratory: Airway is patent Trachea midline Respiratory effort is even, unlabored, Respiratory pattern is regular, symmetrical. GI: No signs and/or symptoms were reported involving the gastrointestinal system. : No signs and/or symptoms were reported regarding the genitourinary system. EENT: No signs and/or symptoms were reported regarding the EENT system. Derm: No signs and/or symptoms reported regarding the dermatologic system. Skin is intact, Skin is pink, warm \\T\\ dry. Musculoskeletal: No signs and/or symptoms reported regarding the musculoskeletal system. Circulation, motion, and sensation intact. Capillary refill < 3 seconds, Range of motion: intact in all extremities. 12:35 Reassessment: Patient appears in no apparent distress at this time. No changes from kc6 previously documented assessment. Patient and/or family updated on plan of care and expected duration. Pain level reassessed. Patient is alert, oriented x 3, equal unlabored respirations, skin warm/dry/pink. 13:28 Reassessment: Patient appears in no apparent distress at this time. No changes from kc6 previously documented assessment. Patient and/or family updated on plan of care and expected duration. Pain level reassessed. Patient is alert, oriented x 3, equal unlabored respirations, skin warm/dry/pink. Vital Signs: 10:52 BP 147 / 57; Pulse 83; Resp 18; Temp 98.6(O); Pulse Ox 97% on R/A; Weight 90.72 kg; nj1 Height 5 ft. 3 in. ; Pain 6/10; 11:44 BP 130 / 87; Pulse 65; Resp 18 S; Pulse Ox 96% on R/A; kc6 12:36 Pulse 62; Resp 18 S; Pulse Ox 95% on R/A; kc6 13:28 BP 119 / 72; Pulse 54; Resp 17 S; Pulse Ox 98% on R/A; kc6 10:52 Body Mass Index 35.43 (90.72 kg, 160.02 cm) nj1 10:52 Pain Scale: Adult nj1 Oscar Coma Score: 12:39 Eye Response: spontaneous(4). Motor Response: obeys commands(6). Verbal Response: ruy oriented(5). Total: 15. ED Course: 10:50 Patient arrived in ED. ts1 10:52 Berenice Duarte RN is Primary Nurse. kc6 10:53 Piter Ravi MD is Attending Physician. ruy 11:07 Triage completed. nj1 11:08 Arm band placed on. nj1 11:40 Patient has correct armband on for positive identification. Bed in low position. Call kc6 light in reach. Side rails up X 1. Adult w/ patient. 12:08 Inserted saline lock: 20 gauge in left antecubital area, using aseptic technique. Blood kc6 collected. 12:42 CT Traumagram (Head C Spine CAP wo con) In Process Unspecified. EDMS 13:04 Marcellus Bush MD is Referral Physician. ruy 13:41 No provider procedures requiring assistance completed. IV discontinued, intact, kc6 bleeding controlled, No redness/swelling at site. Pressure dressing applied. Administered Medications: 12:07 Drug: NS 0.9% IV 1000 ml Route: IV; Rate: 1 bolus; Site: left antecubital; kc6 13:28 Follow up: Response: No adverse reaction; IV Status: Completed infusion kc6 12:07 Drug: Ketorolac IVP 30 mg Route: IVP; Site: left antecubital; kc6 13:28 Follow up: Response: No adverse reaction kc6 12:07 Drug: Ondansetron IVP 4 mg Route: IVP; Site: left antecubital; kc6 13:29 Follow up: Response: No adverse reaction kc6 12:08 Drug: Decadron - Dexamethasone IVP 10 mg Route: IVP; Site: left antecubital; kc6 13:29 Follow up: Response: No adverse reaction kc6 12:08 Drug: Diazepam PO 10 mg Route: PO; kc6 13:29 Follow up: Response: No adverse reaction kc6 12:08 Drug: fentaNYL (PF) IVP 50 mcg Route: IVP; Site: left antecubital; kc6 13:29 Follow up: Response: No adverse reaction kc6 Medication: 13:42 VIS not applicable for this client. kc6 Outcome: 13:04 Discharge ordered by MD. redmond 13:42 Discharged to home ambulatory, with family. kc6 13:42 Condition: stable 13:42 Discharge instructions given to patient, Instructed on discharge instructions, follow up and referral plans. medication usage, Demonstrated understanding of instructions, follow-up care, medications, Prescriptions given X 1. 13:42 Patient left the ED. kc6 Signatures: Dispatcher [employer] EDPiter Gutierrez MD MD cha Campbell, Kaitlyn RN RN kc6 Mayra Sorto RN RN nj1 Brittany Babcock, PAS PAS ts1
--- NOTE | 2022-08-24 13:04 | EDPHYS ---
Physician Documentation [facility] Name: Tracey Rodriguez Age: 66 yrs Sex: Female : 1955 Arrival Date: 08/24/2022 Time: 10:48 Bed 20 Private MD: CATALINA Physician Piter Ravi HPI: 08/24 12:22 This 66 yrs old Female presents to ER via Ambulatory with complaints of ruy Complication with Shingles. Historical: - Allergies: 10:52 anti-inflammatory (all); nj1 10:52 Ciprofloxacin; nj1 10:52 fluoroquinolones; nj1 10:52 Levaquin; nj1 10:52 Sulfa (Sulfonamide Antibiotics); nj1 - PMHx: 10:52 Diverticulitis; nj1 - PSHx: 10:52 carpal tunnal repair; Colectomy; Ligation of fallopian tube; nj1 - Immunization history:: Client reports having NOT received the Covid vaccine. - Social history:: Smoking status: Patient denies any tobacco usage or history of. ROS: 12:37 Constitutional: Negative for fever, chills, and weight loss, Eyes: Negative for injury, ruy pain, redness, and discharge, ENT: Negative for injury, pain, and discharge, Cardiovascular: Negative for chest pain, palpitations, and edema, Respiratory: Negative for shortness of breath, cough, wheezing, and pleuritic chest pain, Abdomen/GI: Negative for abdominal pain, nausea, vomiting, diarrhea, and constipation, Back: Negative for injury and pain, : Negative for injury, bleeding, discharge, and swelling, MS/Extremity: Negative for injury and deformity, Skin: Negative for injury, rash, and discoloration, Neuro: Negative for headache, weakness, numbness, tingling, and seizure, Psych: Negative for depression, anxiety, suicide ideation, homicidal ideation, and hallucinations, Allergy/Immunology: Negative for hives, rash, and allergies, Endocrine: Negative for neck swelling, polydipsia, polyuria, polyphagia, and marked weight changes, Hematologic/Lymphatic: Negative for swollen nodes, abnormal bleeding, and unusual bruising. 12:37 Neck: Positive for pain at rest. 12:37 Skin: Positive for rash, of the face and scalp. Exam: 12:37 Constitutional: This is a well developed, well nourished patient who is awake, alert, ruy and in no acute distress. Head/Face: Normocephalic, atraumatic. Eyes: Pupils equal round and reactive to light, extra-ocular motions intact. Lids and lashes normal. Conjunctiva and sclera are non-icteric and not injected. Cornea within normal limits. Periorbital areas with no swelling, redness, or edema. ENT: Nares patent. No nasal discharge, no septal abnormalities noted. Tympanic membranes are normal and external auditory canals are clear. Oropharynx with no redness, swelling, or masses, exudates, or evidence of obstruction, uvula midline. Mucous membranes moist. Neck: Trachea midline, no thyromegaly or masses palpated, and no cervical lymphadenopathy. Supple, full range of motion without nuchal rigidity, or vertebral point tenderness. No Meningismus. Chest/axilla: Normal chest wall appearance and motion. Nontender with no deformity. No lesions are appreciated. Cardiovascular: Regular rate and rhythm with a normal S1 and S2. No gallops, murmurs, or rubs. Normal PMI, no JVD. No pulse deficits. Respiratory: Lungs have equal breath sounds bilaterally, clear to auscultation and percussion. No rales, rhonchi or wheezes noted. No increased work of breathing, no retractions or nasal flaring. Abdomen/GI: Soft, non-tender, with normal bowel sounds. No distension or tympany. No guarding or rebound. No evidence of tenderness throughout. Female : Normal external genitalia. Skin: Warm, dry with normal turgor. Normal color with no rashes, no lesions, and no evidence of cellulitis. MS/ Extremity: Pulses equal, no cyanosis. Neurovascular intact. Full, normal range of motion. Neuro: Awake and alert, GCS 15, oriented to person, place, time, and situation. Cranial nerves II-XII grossly intact. Motor strength 5/5 in all extremities. Sensory grossly intact. Cerebellar exam normal. Normal gait. Psych: Awake, alert, with orientation to person, place and time. Behavior, mood, and affect are within normal limits. 12:37 ECG was reviewed by the Attending Physician. Vital Signs: 10:52 BP 147 / 57; Pulse 83; Resp 18; Temp 98.6(O); Pulse Ox 97% on R/A; Weight 90.72 kg; nj1 Height 5 ft. 3 in. ; Pain 6/10; 11:44 BP 130 / 87; Pulse 65; Resp 18 S; Pulse Ox 96% on R/A; kc6 12:36 Pulse 62; Resp 18 S; Pulse Ox 95% on R/A; kc6 13:28 BP 119 / 72; Pulse 54; Resp 17 S; Pulse Ox 98% on R/A; kc6 10:52 Body Mass Index 35.43 (90.72 kg, 160.02 cm) nj1 10:52 Pain Scale: Adult nj1 Clare Coma Score: 12:39 Eye Response: spontaneous(4). Motor Response: obeys commands(6). Verbal Response: ruy oriented(5). Total: 15. MDM: 10:53 Patient medically screened. ruy 12:39 Differential diagnosis: arthritis, Cervical Spondylosis cervical strain, Degenerative ruy Disc Disease fracture, Herpes Zoster Neck Contusion Spondylolisthesis Spondylosis torticollis. Data reviewed: vital signs, nurses notes, lab test result(s), EKG, radiologic studies, CT scan. Consideration of Admission/Observation Escalation of care including admission/observation considered. I considered the following discharge prescriptions or medication management in the emergency department Medications were administered in the Emergency Department. See MAR. Test considered but Not performed: MRI: NO MRI C SPINE. Care significantly affected by the following chronic conditions: Obesity, DIVERTICULITIS. Counseling: I had a detailed discussion with the patient and/or guardian regarding: the historical points, exam findings, and any diagnostic results supporting the discharge/admit diagnosis, lab results, radiology results, the need for outpatient follow up, for definitive care, 08/24 11:45 Order name: CBC with Diff; Complete Time: 12:50 [facility] 08/24 11:45 Order name: Comprehensive Metabolic Panel; Complete Time: 12:50 [facility] 08/24 11:45 Order name: Urinalysis w/ reflexes; Complete Time: 12:50 [facility] 08/24 11:46 Order name: Troponin High Sensitivity; Complete Time: 12:50 [facility] 08/24 11:45 Order name: CT Traumagram (Head C Spine CAP wo con) [facility] 08/24 11:46 Order name: EKG; Complete Time: 11:47 [facility] 08/24 11:46 Order name: EKG - Nurse/Tech; Complete Time: 12:07 ruy EC:37 Rate is 58 beats/min. Rhythm is regular. QRS [place] is Normal. NH interval is normal. QRS ruy interval is normal. QT interval is normal. No Q waves. T waves are Normal. No ST changes noted. Clinical impression: NSR w/ Non-specific ST/T Changes and No evidence of ischemia. Interpreted by me. Reviewed by me. Administered Medications: 12:07 Drug: NS 0.9% IV 1000 ml Route: IV; Rate: 1 bolus; Site: left antecubital; kc6 13:28 Follow up: Response: No adverse reaction; IV Status: Completed infusion kc6 12:07 Drug: Ketorolac IVP 30 mg Route: IVP; Site: left antecubital; kc6 13:28 Follow up: Response: No adverse reaction kc6 12:07 Drug: Ondansetron IVP 4 mg Route: IVP; Site: left antecubital; kc6 13:29 Follow up: Response: No adverse reaction kc6 12:08 Drug: Decadron - Dexamethasone IVP 10 mg Route: IVP; Site: left antecubital; kc6 13:29 Follow up: Response: No adverse reaction kc6 12:08 Drug: Diazepam PO 10 mg Route: PO; kc6 13:29 Follow up: Response: No adverse reaction kc6 12:08 Drug: fentaNYL (PF) IVP 50 mcg Route: IVP; Site: left antecubital; kc6 13:29 Follow up: Response: No adverse reaction kc6 Disposition Summary: 08/24/22 13:04 Discharge Ordered Location: Home ruy Problem: new ruy Symptoms: have improved ruy Condition: Stable ruy Diagnosis - Rash and other nonspecific skin eruption ruy - Low back pain ruy - Strain of muscle and tendon of back wall of thorax ruy - Spondylolysis, cervical region - L4-L5 ANTEROLISTHESIS ruy Followup: ruy - With: Private Physician - When: 2 - 3 days - Reason: Recheck today's complaints, Continuance of care, Re-evaluation by your physician Followup: ruy - With: Marcellus Bush MD - When: 2 - 3 days - Reason: Recheck today's complaints, Re-evaluation by your physician Discharge Instructions: - Discharge Summary Sheet ruy - Acute Back Pain, Adult ruy - Chronic Back Pain ruy - Rash, Adult ruy - Rash, Adult, [id number] ruy Forms: - Medication Reconciliation Form ruy - Thank You Letter ruy - Antibiotic Education ruy - Prescription Opioid Use ruy Prescriptions: - Medrol (Andrew) 4 mg Oral Tablets, Dose Pack - take 1 tablet by ORAL route as directed - follow package instructions; 1 ruy packet; Refills: 0, Product Selection Permitted Signatures: Dispatcher [employer] Piter Raines MD MD cha Campbell, Kaitlyn RN RN kc6 Mayra Sorto RN RN nj1
[2022-08-24 13:56] VITALS: TEMP 98.6
[2022-08-24 14:09] VITALS: BP 119/72; O2SAT 98
--- NOTE | 2022-08-27 07:15 | EKG ---
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
== END 2022-08-24 13:42 | disposition home or self-care (01) ==
LOC: ER 10:48
DX: R21 Rash and other nonspecific skin eruption (principal); M54.50 Low back pain, unspecified; S29.012A Strain of muscle and tendon of back wall of thorax, initial encounter; M47.892 Other spondylosis, cervical region; M43.16 Spondylolisthesis, lumbar region; Z88.1 Allergy status to other antibiotic agents; Z88.2 Allergy status to sulfonamides; Z88.5 Allergy status to narcotic agent; Z88.8 Allergy status to other drugs, medicaments and biological substances
CPT/HCPCS: 96361; 93005; 85025; 81001; 36415; 84484; 80053; 70450; 71250; 72125; 96375; 96374; 99284; J3010; J1100; J2405; J7030

== ENCOUNTER 2022-09-27 15:45 | Emergency (ER) | payer OTHER ==
--- OUTSIDE RECORDS SUMMARY | 2022-09-27 15:56 | XMS REPORT | Continuity of Care Document ---
:1955 Author Organization [facility] t Address [address] [place] [address] Care Team Providers Name Role Phone Silvio Babin MD, Shiela Primary Care Physician [phone] LUCIEN SHANNON Attending Clinician Unavailable Arun Ruelas Attending Clinician ARUN RUELAS Attending Clinician Unavailable UMAIR_Wang Attending Clinician Unavailable JOHN_Newton Attending Clinician Unavailable George HERNANDEZ, Emily aCstillo Attending Clinician [phone] Elvia Arauz Attending Clinician Unavailable Willy Lopez Attending Clinician [phone] Emily Longoria Attending Clinician [phone] Lucien Shannon Attending Clinician MATTHEW NAGY Attending Clinician Unavailable Kaitlin Block Attending Clinician [phone] LUCIEN SHANNON Attending Clinician Unavailable JONATHAN Attending Clinician Unavailable GISEL Attending Clinician Unavailable Provider , Not In System Attending Clinician Unavailable Ginna Lord MA Attending Clinician Unavailable Roula Finn Attending Clinician [phone] SHIELA ANGUIANO Attending Clinician Unavailable Nichelle Alanis Attending Clinician NICHELLE ALANIS Attending Clinician Unavailable Fco Estrada Attending Clinician Shiela Anguiano Jr Attending Clinician Mercedez Alas Attending Clinician Zeb Delgado Attending Clinician Michelle Shaffer Attending Clinician Sb Jesus Attending Clinician Desean Mosquera Attending Clinician CHRETIEN_F Admitting Clinician Unavailable JOHN_Newton Admitting Clinician Unavailable Elvia Arauz Admitting Clinician Unavailable JONATHAN Admitting Clinician Unavailable GISEL Admitting Clinician Unavailable Payers Payer Name Policy Type Policy Number Effective Date Expiration Date S giselle AETNA CHOICE POS II [id number] 2002 2002 00:00:00 00:00:00 AETNA (MEDICARE [id number] 2022 REPLACEMENT PPO) 00:00:00 [place]: [id number] 2021 [employer] 00:00:00 [place]IC[place]: [id number] 2021 [employer] - 00:00:00 [facility] AETNA (INDEMNITY) [id number] 2002 00:00:00 [place]IC[place] B[place]: [id number] 2021 [employer] 00:00:00 MEDICARE PART A AND [id number] 2021 B 00:00:00 AETNA (POS) [id number] 2020 00:00:00 Problems Condition Condition Condition Status Onset Resolution Last Treating Co mments Source Name Details Category Date Date Treatment Clinician Date Dysuria Dysuria Problem Active Mamta 615 [facility]i 00:00: ty 00 [facility] Clin[facility] FLANK PAIN FLANK Diagnosis Active 2022-09-23 Memoria W/N.V.D PAIN 6-08 09:24:00 l W/N.V.D 00:00: Mart Active 00 09/04/2022 [facility] [place] Gastroesop Gastroesop Problem Active S wepatricy hageal hageal 6-05 Communi reflux Reflux 00:00: ty disease Disease 00 [facility]ospita [facility] Clinics Thoracic Thoracic Problem Active [place] back pain Back Pain 6-05 Comm uni 00:00: ty 00 Hospita Clinics Diarrhea Diarrhea Problem Active Sween y 6-05 Communi 00:00: ty 00 [facility] Abdominal Abdominal Problem Active Swe venkat pain Pain 6-05 Communi 00:00: ty 00 [facility] Herpes Herpes Problem Active [place] zoster Zoster 5-16 Communi 00:00: ty 00 [facility] Generalize Generalize Problem Active S hari mcarthur anxiety d Anxiety 4-21 Comm uni disorder Disorder 00:00: ty 00 Hospita Clinics Hypothyroi Hypothyroi Problem Active S hari dism dism 4-11 Communi 00:00: ty 00 [facility]ospita Clinics Insomnia Insomnia Problem Active [place] y 4-11 Communi 00:00: ty 00 [facility]osp[facility] Clin[facility] Acute Acute Problem Active 2021-03 [place] upper Upper 2-29 Communi respirator Respirator 00:00: ty [facility]fection [facility] Clin[facility] Nasal Nasal Problem Active 2021-03 [place] congestion Congestion 2-29 Co mmuni 00:00: ty 00 Hospita Clinics Cough Cough Problem Active 2021-03 [place] 2-29 Communi 00:00: ty 00 [facility]ospita Clinics Anxiety Anxiety Problem Active 2021-03 [place] 1-28 Communi 00:00: ty 00 Hospita Clinics 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 [place] memory Memory 1-28 Communi disturbanc Disturbanc 00:00: ty e e 00 Hospita l Clinics Allergic Allergic Problem Active 2021-03 [place] rhinitis Rhinitis 1-28 Commun i 00:00: ty 00 Hospita l Clinics Dizziness Dizziness Problem Active 2021-03 Swe venkat 1-28 Communi 00:00: ty 00 [facility] Contact Contact Problem Active [place] dermatitis Dermatitis 8-12 Co mmuni 00:00: ty 00 Hospita Clinics Pruritic Pruritic Problem Active [place] rash Rash 8-12 Communi 00:00: ty 00 [facility] Ganglion Ganglion Problem Active [place] cyst of Cyst of 11-08 Communi left hand Left Hand 00:00: ty 00 [facility] Depressive Depressive Problem Active S weeny disorder Disorder 10-21 Commun i 00:00: ty 00 [facility] Conjunctiv Conjunctiv Problem Active S weeny itis itis 10-21 Communi 00:00: ty 00 [facility] Acute Acute Problem Active [place] sinusitis Sinusitis 10-21 Comm uni 00:00: ty 00 [facility] Urinary Urinary Problem Active [place] tract Tract 10-21 Communi infectious Infectious 00:00: ty disease Disease 00 [facility] RECURRENT RECURRENT Diagnosis Active 2021-10-16 Memoria DIVERTICUL DIVERTICUL 7 10:26:00 l ITIS, ITIS, 00:00: [place] DIARRHEA, DIARRHEA, 00 ABDO ABDO Active 10/02/2021 [facility] DIVERTICUL DIVERTICU Diagnosis Active 2020-032021-04-05 Memoria ITIS LITIS 2-16 10:15:00 l Active 00:00: Mart 03/14/2021 [facility] Diverticul Diverticul Problem Active S weeny itis itis 07-26 Communi 00:00: ty 00 [facility] NUMBNESS/ NUMBNESS/ Diagnosis Active 2020-07-23 Memoria LETHARGIC LETHARGIC 4- 18:37:00 l Active 08:00: [place] 07/23/2020 [place] [facility] Diagnosis Active 2019-032020-03-09 Me moria VISIT- ABD VISIT- ABD 2-10 11:18:00 l PAIN PAIN 00:00: [place] Active 00 03/08/2020 [facility] ABD PAIN ABD PAIN Diagnosis Active 2019-032020-01-11 Memoria Active 0-14 18:59:00 l 01/11/2020 00:00: José Miguel n [place] F/U AND F/U AND Diagnosis Active 2018-07-28 Memchloe 2ND 2ND 07-20 14:19:00 l OPINION OPINION 00:00: Mart Active 00 07/20/2018 [facility] KNEE PAIN KNEE PAIN Diagnosis Active 2017-06-06 Memoria Active 06-05 08:32:00 l 06/05/2017 00:00: José Miguel samaniego [facility] 00 Mart BDDC-NAUSE BDDC-NAUS Diagnosis Active 2016-12-07 Memoria A, EARLY EA, EARLY 10-30 15:15:00 l SATIETY SATIETY 00:00: Mart Active 00 10/30/2016 [facility] STOMACH STOMACH Diagnosis Active 2015-032016-03-17 Memoria PAIN PAIN 04-27 13:47:00 l Active 00:00: [place] 02/26/2016 00 [facility] WEAKNES WEAKNES Diagnosis Active 2015-09-16 Memchloe AND BLURY AND BLURY 09-15 17:12:00 l VISION VISION 00:00: [place] Active 00 09/16/2015 [place] BDDC - NEW BDDC - Diagnosis Active 2014-032015-03-14 Memoria PT CONSULT NEW PT -16 14:16:00 l CONSULT 00:00: Mart Active 00 03/14/2015 [facility] BDDC/ BDDC/ Diagnosis Active 2014-032015-04-30 Mem oria Z12.11 Z12.11 2-16 11:17:00 l SCREENING SCREENING 00:00: Cierra bettencourt FOR FOR 00 MALIGNANT MALIGNANT ALICIA ALICIA Active 5 [facility] PAIN IN PAIN IN Diagnosis Active 2014-032015-04-21 Memchloe THE THE 05-06 15:39:00 l ABDOMEN; ABDOMEN; 00:00: José Miguel samaniego UPPER AND UPPER AND 00 LOWER STO LOWER STO Active 03/05/2015 [facility] Screening Screening Problem Active 2021-11-09 Memoria mammograph mammograph 08-23 01:25:28 l y y 00:00: Mart (procedure (procedure 00 ) ) Active 08/23/2014 Problem 11/09/2021 Data migrated from Aubrey on 10/04/14. Medical Group,[facility], Ryan Sparks Radha, OPID [place], JESSICA Cody,M H [place] Vitamin D Vitamin D Problem Active 2021-11-09 Memoria deficiency deficiency 08-23 01:25:28 l (disorder) (disorder) 00:00: He rmann Active 00 08/23/2014 Problem 11/09/2021 Data migrated from [facility]rey on 10/04/14. [facility], Clare,M Joseph JESSICA Garcia, OPID [place], JESSICA Nevarezmond,M H [place] Gastritis Gastritis Problem Active 2021-11-09 Memoria (disorder) (disorder) 08-22 01:25:28 l Active 00:00: [place] 08/22/2014 00 Problem 11/09/2021 Data migrated from [facility] on 10/04/14. [facility], [place],Ryan Ruiz JESSICA Garcia, SUGARD [place], SUGARFernando Cody,M H [place] Multiple Multiple Problem Active 2021-11-09 Memoria joint pain joint pain 08-22 01:25:28 l (finding) (finding) 00:00: Herm rut Active 08/22/2014 Problem 11/09/2021 Data migrated from [facility] on 10/04/14. [facility], [place],Ryan Ruiz JESSICA Garcia, OPID [place], JESSICA Nevarezmond,M H [place] Muscle Muscle Problem Active 2021-11-09 Marvel fauzia pain pain 08-22 01:25:28 l (finding) (finding) 00:00: Herm rut Active 08/22/2014 Problem 11/09/2021 Data migrated from [employer] on 10/04/14. [facility], [place],Ryan Ruiz JESSICA Garcia, OPID [place], JESSICA Cody,M H [place] Nausea Nausea Problem Active 2021-11-09 Marvel fauzia (finding) (finding) 08-22 01:25:28 l Active 00:00: [place] 08/22/2014 00 Problem 11/09/2021 Data migrated from [facility] on 10/04/14. [facility], [place],[facility] OPID Radha, OPID [place], JESSICA Nevarezmond,M H [place] Enterobias Enterobia Problem Active 2021-11-09 Memoria is sis 08-08 01:25:28 l (disorder) (disorder) 00:00: He rmann Active 00 08/08/2014 Problem 11/09/2021 Data migrated from Aubrey on 10/04/14. Medical [facility], Clare,M H OPID Radha, OPID [place], SUGARD Cody,M H [place] Numbness Numbness Problem Active 2021-11-09 Memoria (finding) (finding) 08-08 01:25:28 l Active 00:00: [place] 08/08/2014 00 Problem 11/09/2021 Data migrated from [facility] on 10/04/14. [facility], [place],[facility] JESSICA Garcia, OPID [place], OPID Cody,M H [place] Reactive Reactive Problem Active 2021-11-09 Memoria hypoglycem hypoglycem 08-08 01:25:28 l ia ia 00:00: Mart (disorder) (disorder) 00 Active 08/08/2014 Problem 11/09/2021 Data migrated from [employer] on 10/04/14. [facility], [place],[facility] SUGARD Radha, OPID [place], OPID Cody,M H [place] NAUSEA NAUSEA Diagnosis Active 2013-11-30 Me moria Active 11-30 13:51:00 l 11/30/2013 00:00: José Miguel samaniego [place] Disease Disease Problem Resolve 2021-11-09 M emoria caused by caused by d 01:25:28 l 2018-nCoV 2018-nCoV Cierra bettencourt Resolved Problem 11/09/2021 [facility], JESSICA Garcia, [place] Hypoglycem Hypoglyce Problem Resolve 2021-11-09 Memoria ia kristin d 01:25:28 l (disorder) (disorder) He rmann Resolved Problem 11/09/2021 [facility], [place],M H JESSICA Garcia, JESSICA [place], JESSICA Cody,[facility] [place] 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 01:31:41 l (disorder) (disorder) He rmann Active Problem 09/07/2022 Medical Group,[facility], JESSICA Garcia, [place],[facility] Obesity Obesity Problem Active 2022-09-07 Me moria (disorder) (disorder) 01:31:41 l Active [place] Problem 09/07/2022 Medical Group,[facility], [place],M JESSICA Garcia, JESSICA [place], JESSICA Cody,[facility] [place],[facility] L98.8 - L98.8 - Diagnosis Active 2021-11-06 Memoria OTH DISRD OTH DISRD 12:38:00 l OF THE OF THE [place] SKIN AND SKIN AND SUBC SUBC Active JESSICA Garcia No known No known Disease Metho di active active st problems problems Hospit a l Backache Backache Diagnosis 2022-09-07 2022-09-07 Memoria (finding) (finding) 09-04 01:31:41 01:31:41 l 09/04/2022 18:33: José Miguel n Diagnosis 00 09/07/2022 [facility] [place] Diarrhea Diarrhea Problem Resolve 2021-11-09 2021-11-09 Memoria (finding) (finding) d 08-23 01:25:28 01:25:28 l Resolved 00:00: [place] 08/23/2014 00 Problem 11/09/2021 Data migrated from [facility] on 10/04/14. Medical Group,[facility], Clare,M Joseph Garcia, JESSICA [place], JESSICA Cody,[facility] [place] Sinusitis Sinusitis Problem Resolve 2021-11-09 2021-11-09 Memoria (disorder) (disorder) d - 01:25:28 01:25:28 l Resolved 00:00: [place] 12/08/2011 00 Problem 11/09/2021 Data migrated from [facility]rey on 10/14/14.<b r/>Data migrated from [facility] on 10/13/14. Medical Group,[facility], Ryan Sparks JESSICA Garcia, OPID [place], JESSICA Cody,M H [place] History of Past Illness Condition Condition Condition Status Onset Resolution Last Treating Co mments Source Name Details Category Date Date Treatment Clinician Date Gastritis, Gastritis Problem 2021-10-16 2021-10-16 Memoria unspecifie , 10-14 22:30:38 22:30:38 l d, without unspecifie 16:07: He rmann bleeding d, without 00 bleeding 10/14/2021 10/16/2021 [facility] Urinary Urinary Problem 2019-032020-01-13 2020-01-13 Memoria tract tract 0-14 22:40:53 22:40:53 l infection, infection, 17:00: He rmann site not site not 00 specified specified 01/11/2020 0 [place] Acute Acute Problem 2019-032020-01-13 2020-01-13 M emoria gastritis gastritis 0- 22:40:53 22:40:53 l without without 17:00: Mart bleeding bleeding 00 01/11/2020 0 [place] Unspecifie Unspecifi Problem 2019-032020-01-13 2020-01-13 Memoria d ed 0-14 22:40:53 22:40:53 l abdominal abdominal 17:00: Herm rut pain pain 00 01/11/2020 0 [place] Acute Acute Problem 2019-032020-01-13 2020-01-13 M emoria bronchitis bronchitis 0-14 22:40:53 22:40:53 l , , 17:00: [place] unspecifie unspecifie 00 d d 01/11/2020 0 [place] Acute Acute Problem 2017-032018-07-25 2018-07-25 M emoria sinusitis, sinusitis, 0-16 14:53:54 14:53:54 l unspecifie unspecifie 04:40: He rmann d d 38 01/12/2018 9 OPID [place] Discharge Discharge Problem 2015-09-19 2015-09-19 [facility] Diagnosis: Diagnosis: 09-15 00:37:41 00:37:41 l Adult Adult 05:00: Mart hypothyroi hypothyroi 00 dism dism 09/16/2015 6 MH [place] Discharge Discharge Problem 2013-12-03 2013-12-03 [facility] Diagnosis: Diagnosis: 11-30 05:11:13 05:11:13 l Biliary Biliary 05:00: Mart colic colic 00 11/30/2013 12/03/2013 [place] Allergies, Adverse Reactions, Alerts Allergy Allergy Status Severity Reaction(s) Onset Inactive Treating Comm ents Source Name Type Date Date Clinician FLUROQUI DA Active [facility] HISTORY OF 12-27 Maxine an ALLERGIC 00:00: d REACTION 00 [facility] ciproflo DA Active SV 2017-03 [facility] xacin 0-01 [place] 00:00: d 00 [facility] levoflox DA Active SV 2017-03 [facility] acin 0- [place] 00:00: d 00 [facility] ANTI DA Active U UNKNOWN 2017-03 [facility] INFLAMMA 0-01 [place] TORY PO 00:00: d MEDS 00 [facility] ciproflo DA Active SV LEG WEEKNESS 2017-03 HC A xacin 0-01 [place] 00:00: d 00 [facility] levoflox DA Active SV LOWER EXT 2017-03 [facility] acin WEEKNESS 0-01 [place] 00:00: d [facility] Ciproflo Propensi Active Method i xacin ty to [address] adverse 00:00: Hospita reaction 00 l s to drug Sulfa Propensi Active Methodi (Sulfona ty to 3 st mide adverse 00:00: Hospita Antibiot reaction 00 l ics) s to drug Ciprofib Propensi Active Swelling Meth eris rate ty to 1-10 st adverse 00:00: Hospita reaction 00 l s to drug Levoflox Propensi Active Swelling Meth eris acin ty to 1-10 st adverse 00:00: Hospita reaction 00 l s to drug Nsaids Propensi Active Swelling Method i (Non-Dragan ty to 04-08 st roidal adverse 00:00: Hospita Anti-Inf reaction 00 l lammator s to y Drug) drug ciproflo ciproflo Active Memori a xacin xacin l [place] Levaquin Levaquin Active Memori a l [place] Food Food Active Memoria Iodine Iodine l [place] NSAIDs NSAIDs Active Memoria l [place] contrast contrast Active Moderate Marvel fauzia media media l (iodine- (iodine- José Miguel n based) based) NSAIDS Allergy Active [place] ([facility]-DRAGAN to [facility] ty ANTI-INF e Hospita LAMMATOR l Y DRUG) Clinics QUINOLON Allergy Active [place] ES to [facility] ty e Hospita l Clinics Family History Family Member Diagnosis Comments Start Date Stop Date Source Natural father Heart disease [facility] Natural mother Cancer [facility] Social History Social Habit Start Date Stop Date Quantity Comments Source Gender identity [facility] Alcohol intake 2021-08-21 2021-08-21 Current Zoroastrianism 00:00:00 00:00:00 non-drinker of Hospital alcohol (finding) History of Social 2021-08-21 2021-08-[address] function 00:00:00 00:00:00 Hospital Social History 2017-07-02 2017-07-02 [facility] 19:52:36 19:52:36 Tobacco use and 2017-06-05 2017-06-05 Smokeless Zoroastrianism exposure 00:00:00 00:00:00 tobacco non-user [facility] Sex Ass[birth year] At [birth year] Zoroastrianism 00:00:00 00:00:00 Hospital Smoking Status Start Date Stop Date Source Tobacco smoking status [facility] Medications Ordered Filled Start Stop Current Ordering Indication Dosage Frequency Signature Comments Components Source Medication Medication Date Date Medication? Clinician (SIG) Name Name tramadol 50 Yes 50 mg = 1 M emoria mg oral 6-08 tab, PO, l tablet 19:12: Q4H, PRN [place] 00 Pain, # 7 tab, 0 Refill(s), Pharmacy: [facility] #[id number], 160.02, cm, 09/04/22 10:52:00 CDT, Height, 90.6, kg, 09/04/22 10:52:00 CDT, Weight omeprazole Yes 20 mg = 1 Me moria 20 mg oral 6-08 cap, PO, l delayed 18:33: Daily, # José Miguel n release 00 30 cap, 1 capsule Refill(s), Pharmacy: [facility][id number], 160.02, cm, 09/04/22 10:52:00 CDT, Height, 90.6, kg, 09/04/22 10:52:00 CDT, Weight Carafate 1 Yes 1 gm = 1 Mem oria g oral 6-08 tab, PO, l tablet 18:33: QID-Before Jada nn 00 Meals, # 120 tab, 0 Refill(s), Pharmacy: [facility] #[id number], 160.02, cm, 09/04/22 10:52:00 CDT, Height, 90.6, kg, 09/04/22 10:52:00 CDT, Weight Xifaxan 550 Yes 550 mg = 1 Memoria mg oral 4-20 tab, PO, l tablet 20:34: TID, # 42 José Miguel n 00 tab, 0 Refill(s), Pharmacy: [facility], 160.02, cm, 10/14/21 8:07:00 CDT, Height, 90.909, kg, 10/14/21 8:07:00 CDT, Weight Kenalog 40 Kenalog 40 No Q1D Kenalog 40 [place] mg/mL mg/mL 8-12 mg/mL Communi suspension suspension 10:50: suspension ty for for 00 for Hospita injectionTa injectionTa injectionT l ke 60 mg ke 60 mg tatianna 60 mg Cl inics every day every day every day by by by injection injection injection route. route. route. omeprazole Yes 20 mg = 1 Me moria 20 mg oral 7-25 cap, PO, l delayed 15:52: Daily, # José Miguel n release 00 30 cap, 11 capsule Refill(s), Pharmacy: [facility][id number], 160.02, cm, 10/14/21 8:07:00 CDT, Height, 90.909, kg, 10/14/21 8:07:00 CDT, Weight estradiol Yes 1 gm =, Memor ia 0.1 mg/g 7-25 VAG, 0 l vaginal 15:41: Refill(s) Jada nn cream 00 Probiotic Yes PO, Daily, Me moria Formula 7-18 0 l 13:24: Refill(s) [place] Ellura Yes 0 Memoria 7-18 Refill(s) l 13:24: [place] 00 Suprax 400 Yes 400 mg = 1 M emoria mg oral 7-18 cap, PO, l capsule 13:23: Daily, 0 José Miguel n 00 Refill(s) amoxicillin 2021- No 1{tbl} Q.5D Take 1 [...] l hr tablet dexamethaso dexamethaso No dexamethas [place] ne sodium ne sodium 03 one sodium Communi phosphate phosphate 15:10: phosphate ty 10 mg/mL 10 mg/mL 00 10 mg/mL Hos romina injection injection injection l solutionTak solutionTak solutionTa Clinics e 10 mg by e 10 mg by ke 10 mg injection injection by route. route. injection route. peg peg No peg [place] 3350-electr 3350-electr 3-03 3350-elect Communi olytes 236 olytes 236 00:00: rolytes ty gram-22.74 gram-22.74 00 236 Hos romina gram-6.74 gram-6.74 gram-22.74 l gram-5.86 gram-5.86 gram-6.74 Clinics gram gram gram-5.86 solution solution gram MIX AND MIX AND solution DRINK DRINK MIX AND DIRECTED DIRECTED DRINK DIRECTED GoLYTELY Yes See Memoria oral powder 07 Instructio l for 20:45: ns, Take Mart reconstitut 00 as ion directed by physician. , # 1 ea, 0 Refill(s), Pharmacy: [facility] #[id number], fill whichever other prep is in stock and covered by insurance if this is not available, 160.02, cm, 04/05/21 10:11:00 [employer], Height, 89.545, k... rifaximin 2020-03 Yes 550 mg = 1 Me moria 550 MG Oral 2-17 tab, PO, l Tablet 22:33: TID, # 42 José Miguel n [XIFAXAN] 00 tab, 0 Refill(s), Pharmacy: [facility] #[id number], 160.02, cm, 03/09/20 11:28:00 [employer], Height, 86.364, kg, 03/09/20 11:28:00 [employer]ENT, Weight lidocaine lidocaine 2020-03 No Q1D lidocaine [place] (PF) 10 (PF) 10 0-18 (PF) 10 [...] Kenalog 40 2020-03 No Q1D Kenalog 40 [place] mg/mL mg/mL 0-18 mg/mL Communi suspension suspension 17:02: suspension ty for for 19 for Hospita injectionTa injectionTa injectionT l ke 0.5 mL ke 0.5 mL tatianna 0.5 mL Clinics every day every day every day by by by injection injection injection route for 1 route for 1 route for day. day. 1 day. fluticasone 0 Yes 50ug QD 1 spray [...] l mcg/actuati route on nasal daily. spray Ondansetron 2019-03 Yes 4 mg = 1 Me moria 4 MG 2-11 tab, PO, l Disintegrat 18:11: Q6H, PRN He rmann ing Tablet 00 Nausea & Vomiting, # 60 tab, 0 Refill(s), Pharmacy: [facility] #[id number], 160.02, cm, 03/09/20 11:28:00 [employer], Height, 86.364, kg, 03/09/20 11:28:00 [employer]ENT, Weight Famotidine 2019-03 Yes 40 mg = 1 Me moria 40 MG Oral 0-15 tab, PO, l Tablet 02:09: Daily, # Mart [Pepcid] 00 30 tab, 0 Refill(s) pantoprazol [...] tab, PO, l tablet 02:08: Q6H, PRN [place] 00 Nausea, # 15 tab, 0 Refill(s) Vantin 200 2019-03 Yes 200 mg = 1 M emoria mg oral 0-15 tab, PO, l tablet 02:08: Q12H, X 10 Jada nn 00 day, # 20 tab, 0 Refill(s) Phenergan 2019-03 Yes 25 mg = 1 Mem oria 25 mg oral 0-15 tab, PO, l tablet 02:08: Q6H, PRN [place] 00 Nausea, # 15 tab, 0 Refill(s) albuterol 2019-03 Yes 2 [...] 0.9% 0-14 (Same as: l 23:28: BD [place] 00 Posiflush) Sodium 2019-03 No 1,000 mL, Memori a Chloride 0-14 1000 l 0.9% 23:28: ml/hr, Mart (Bolus) IV 00 Infuse Over: 1 hr, Route: IV, 1,000, Drug form: INJ, ONCE, Priority: STAT, Dosing Weight 89 kg, Start date: 01/11/20 18:28:00 CDT, Stop date: 01/11/20 18:28:00 CDT, 0 Morphine 2019-03 No Notes: Memoria 0-14 (Same l 23:28: as:MORPhin [place] 00 e Sulfate) Ondansetron 2019-03 No Notes: [...] cap, 0 oral Refill(s), capsule Pharmacy: (Macrobid) [facility] #[id number] fluconazole Yes See Memori a 150 mg oral 6-07 Instructio l tablet 14:07: ns, 1 tab José Miguel n 00 PO ONCE a week, # 2 tab, 0 Refill(s), Pharmacy: [facility] [id number] ciclopirox Yes 1 appl, Marvel fauzia 7.7 MG/ML 6-07 TOP, BID, l Topical 14:07: X 28 day, Jada nn Cream 00 # 90 gm, 0 Refill(s), Pharmacy: [facility] [id number] rifaximin Yes 550 mg = 1 Me moria 550 MG Oral 5-01 tab, PO, l Tablet 21:43: TID, # 42 José Miguel n [XIFAXAN] 00 tab, 0 Refill(s), Pharmacy: [facility] pantoprazol Yes 40 mg, PO, Memoria e 5-01 Daily, # l 18:57: 30 tab, 0 Mart 00 Refill(s) Hyoscyamine Yes 0.125 mg = Mem[facility] Sulfate 3-20 1 tab, PO, l 0.125 MG 21:36: QID, PRN Jada nn Disintegrat 00 Spasm, # ing Tablet 40 tab, 1 [Nulev] Refill(s), Pharmacy: [facility] Sulfamethox Yes 1 tab, PO, Memoria azole 800 3-20 BID, X 7 l MG / 21:36: day, # 14 Mart Trimethopri 00 tab, 0 m 160 MG Refill(s), Oral Tablet Pharmacy: [Bactrim] [facility] clonazePAM Yes 0.5 mg = 1 M emoria 0.5 mg oral 3-20 tab, PO, l tablet 21:36: Daily, PRN Jada nn 00 Anxiety, # 30 tab, 1 Refill(s) Metronidazo Yes 500 mg = 1 Memoria le 500 MG 3-18 tab, PO, l Oral Tablet 19:12: Q8H, X 10 H ermann [Flagyl] 00 day, # 30 tab, 0 Refill(s), Pharmacy: [facility] Amoxicillin Yes 875 mg = 1 Memoria 875 MG / 3-18 tab, PO, l Clavulanate 19:12: Q12H, X 10 Mart 125 MG Oral 00 day, # 20 Tablet tab, 0 [Augmentin Refill(s), 875-mg] Pharmacy: [facility] Nystatin 2017-03 No 1,000,000 Marvel fauzia [id number] UNT 0-15 unit = 2 l Oral Tablet 13:43: tab, PO, He rmann 00 BID, X 30 day, # 120 tab, 0 Refill(s), Pharmacy: [facility] sucralfate 2017-03 Yes 1 gm = 1 Mem oria 1 g oral 0-11 tab, PO, l tablet 19:23: QID, # 120 Ajda nn 00 tab, 0 Refill(s), Pharmacy: [facility] benzonatate 2017-03 No 100 mg = 1 Memoria 100 MG Oral 0-09 cap, PO, l Capsule 20:31: TID, PRN José Miguel n [Tessalon 00 as needed Perles] for cough, X 7 day, # 21 cap, 0 Refill(s), Pharmacy: [facility] Azithromyci 2017-03 No See Memori a n 5 Day 0-09 Instructio l Dose Pack 20:26: ns, Take 2 He rmann 250 mg oral 00 tablets by tablet mouth the first day then 1 tablet by mouth days 2-5., X 5 day, # 6 tab, 0 Refill(s), Pharmacy: [facility] doxycycline 2017-03 Yes 100 mg = 1 Memoria hyclate 100 0-09 tab, PO, l MG Oral 20:13: BID, 0 [place] Tablet 00 Refill(s) clonazePAM 2017-03 No 0.5 [...] day, # 30 tab, 1 Refill(s), Pharmacy: [facility] [place] [id number] pregabalin Yes 50 mg = 1 Me moria 50 MG Oral 4-05 cap, PO, l Capsule 20:17: TID, # 90 Jada nn [Lyrica] 00 cap, 0 Refill(s) valACYclovi No 1 gm = 1 Me moria r 1 g oral 4-02 tab, PO, l tablet 18:18: Q8H, X 7 [place] 00 day, # 21 tab, 1 Refill(s), Pharmacy: [facility] [place] [id number] valACYclovi No 1 gm = 1 Me moria r 1 g oral 3-13 tab, PO, l tablet 19:40: Q8H, X 7 Mart 00 day, # 21 tab, 1 Refill(s), Pharmacy: [facility] polyethylen No 17 gm, PO, Memoria e glycol 3-13 Daily, X l 3350 oral 19:40: 31 day, # Her sellers powder for 00 527 gm, 1 reconstitut Refill(s), ion Pharmacy: [facility] benzonatate Yes 100 mg = 1 Memoria 100 mg oral 1-02 cap, PO, l capsule 20:29: TID, do [place] 00 not crush or chew, X 10 day, # 30 cap, 0 Refill(s), Pharmacy: [facility] [id number] Codeine Yes 5 mL, PO, Memor ia Phosphate 2 1-02 Q12H, PRN l MG/ML / 20:29: cough, X José Miguel n Guaifenesin 00 10 day, # 20 MG/ML 100 mL, 0 Oral Refill(s) Solution [Cheratussi n] Fluticasone Yes 1 spray, Me moria propionate -02 NASAL, l 0.05 20:19: BID, # 16 Mart MG/ACTUAT 00 gm, 2 Metered Refill(s), Dose Nasal Pharmacy: [place] [facility] [id number] Azithromyci Yes See Memori a n 5 Day 1-02 Instructio l Dose Pack 20:19: ns, Take 2 He rmann 250 mg oral 00 tablets by tablet mouth the first day then 1 tablet by mouth days 2-5., X 5 day, # 6 tab, 0 Refill(s), Pharmacy: [place] [id number] clonazePAM 2016-03 Yes 0.5 mg = 1 M emoria 0.5 mg oral 1-27 tab, PO, l tablet, 20:26: BID, # 60 Jada nn disintegrat 00 tab, 1 ing Refill(s) EnteraGam 2015-03 Yes EnteraGam, Me moria 2-14 See l 21:03: Instructio Mart 00 ns, Samples given in clinic on 03/12/16. Lot [id number] exp date 10/15, # 1 box, Refill(s) [...] Chloride 6-19 1,000 l 0.154 22:33: ml/hr, Mart MEQ/ML 00 Infuse Injectable Over: 1 Solution hr, Route: IV, 1,000, Drug form: INJ, ONCE, Priority: STAT, Dosing Weight 85.818 kg, Start date: 09/16/15 17:33:00 CDT, Duration: 1 doses or times, Stop date: 09/16/15 17:33:00 CDT Saline No Notes: Memoria Flush 0.9% - (Same as: l 22:33: BD Mart 00 [...] 00 tab, 1 Tablet Refill(s), [Levsin] Pharmacy: [facility] Ondansetron 2014-03 Yes 8 mg = 1 Me moria 8 MG 2-17 tab, PO, l Disintegrat 21:16: TID, PRN He rmann ing Tablet 00 Nausea and [Zofran] Vomiting, Dissolve tab under tongue, X 7 day, # 21 tab, 1 Refill(s), [facility] GoLYTELY 2014-03 Yes 240 mL, Memori a oral powder 2-16 PO, l for 21:56: Q10Min, # Mart reconstitut 00 1 ea, 0 ion Refill(s), Pharmacy: [facility] Flagyl 2014-03 Yes 500 mg = 1 Memor ia 2-16 tab, PO, l 20:40: BID, # 14 [place] 00 tab, 0 Refill(s) Promethazin Yes 12.5 mg = M emoria e 9-03 1 tab, PO, l Hydrochlori 21:44: Q6H, José Miguel n de 12.5 MG 00 Nausea & Oral Tablet Vomiting, [Phenergan] # 20 tab, 0 Refill(s) Acetaminoph Yes 1 tab, PO, Memoria en 325 MG / 11-30 Q6H, Pain, l Hydrocodone 21:44: # 24 tab, H ermann Bitartrate 00 0 5 MG Oral Refill(s) Tablet [[place] 5/325] Phenergan No Notes: Do Mem oria 11-30 not give l 17:41: IV push. (Same as: Phenergan) Saline No Notes: Memoria Flush 0.9% 11-30 (Same as: l 17:25: BD Posiflush) Carafate Yes 0 Memoria 11-30 Refill(s) l 17:13: Promethazin Yes 0 Memori a e 11-30 Refill(s) l 17:12: trimethopri trimethopri No trimethopr [place] m 100 mg m 100 mg im 100 mg [facility] tablet TAKE tablet TAKE tablet ty 1 TABLET BY 1 TABLET BY TAKE 1 Hospita MOUTH EVERY MOUTH EVERY TABLET BY l DAY DAY MOUTH Clinics EVERY DAY valacyclovi valacyclovi No valacyclov [place] r 1 gram r 1 gram ir 1 gram [facility] tablet TAKE tablet TAKE tablet ty 1 TABLET BY 1 TABLET BY TAKE 1 Hospita MOUTH TWICE MOUTH TWICE TABLET BY l DAILY prn DAILY prn MOUTH Clin ics TWICE DAILY prn acyclovir 5 acyclovir 5 No acyclovir [place] % topical % topical 5 % Commu ni ointment ointment topical ty APPLY TO APPLY TO ointment [facility] THE THE APPLY TO l AFFECTED AFFECTED THE Clinics AREA EVERY AREA EVERY AFFECTED 2 HOURS 2 HOURS AREA EVERY DURING DURING 2 HOURS AWAKE HOURS AWAKE HOURS DURING FOR 4 DAYS FOR 4 DAYS AWAKE HOURS FOR 4 DAYS amoxicillin amoxicillin No amoxicilli [place] 500 500 n 500 [facility] mg-potassiu mg-potassiu [...] DAYS benzonatate benzonatate No 1capsul TID benzonatat [place] 100 mg 100 mg e(s) e 100 [...] ty kit TEST kit TEST Test kit [facility] DIRECTED DIRECTED TEST l TODAY TODAY DIRECTED Clinics TODAY cephalexin cephalexin No cephalexin [place] 500 mg 500 mg 500 mg [facility] capsule capsule capsule ty TAKE 1 TAKE 1 TAKE 1 Hospita CAPSULE BY CAPSULE BY CAPSULE BY l MOUTH TWICE MOUTH TWICE MOUTH Clinics DAILY DAILY TWICE DAILY estradiol estradiol No estradiol [place] 0.01% (0.1 0.01% (0.1 0.01% (0.1 [facility] mg/gram) mg/gram) mg/gram) ty vaginal vaginal vaginal Hospit a cream cream cream l INSERT 1 INSERT 1 INSERT 1 Cli nics GRAM INTO GRAM INTO GRAM INTO VAGINA VAGINA VAGINA TWICE A TWICE A TWICE A WEEK AT WEEK AT WEEK AT NIGHT. NIGHT. NIGHT. fluconazole fluconazole No fluconazol [place] 150 mg 150 mg e 150 mg [facility] tablet tablet tablet ty Hospita l Clinics hydroxyzine hydroxyzine No hydroxyzin [place] HCl 25 mg HCl 25 mg e [...] Kenalog 40 No 60mg Q1D Kenalog 40 [place] mg/mL mg/mL mg/mL [facility] suspension suspension suspension ty for for for Hospita injection injection injection l Take 60 mg Take 60 mg Take 60 mg Clinics every day every day every day by by by injection injection injection route. route. route. meloxicam meloxicam No 1 Q1D meloxicam [place] 15 mg 15 mg 15 mg [facility] tablet Take tablet Take tablet ty 1 tablet 1 tablet Take 1 Hospi ta every day every day tablet l by oral by oral every day Clin ics route for route for by oral 30 days. 30 days. route for 30 days. metoprolol metoprolol No metoprolol [place] succinate succinate succinate [facility] ER 25 mg ER 25 mg ER 25 mg ty tablet,exte tablet,exte tablet,ext Hospita nded nded ended l release 24 release 24 release 24 Clinics hr TAKE 1 hr TAKE 1 hr TAKE 1 TABLET BY TABLET BY TABLET BY MOUTH EVERY MOUTH EVERY MOUTH DAY DAY EVERY DAY metronidazo metronidazo No metronidaz [place] le 500 mg le 500 mg ole 500 mg [facility] tablet TAKE tablet TAKE tablet ty 1 TABLET BY 1 TABLET BY TAKE 1 Hospita MOUTH EVERY MOUTH EVERY TABLET BY l 8 HOURS FOR 8 HOURS FOR MOUTH Clinics 7 DAYS 7 DAYS EVERY 8 HOURS FOR 7 DAYS omeprazole omeprazole No omeprazole [place] 20 mg 20 mg 20 mg [facility] capsule,del capsule,del capsule,de ty ayed ayed layed Hospita release release release l TAKE 1 TAKE 1 TAKE 1 Clinics CAPSULE BY CAPSULE BY CAPSULE BY MOUTH DAILY MOUTH DAILY MOUTH DAILY ondansetron ondansetron No ondansetro [place] 4 mg 4 mg n 4 mg [...] 6 DAYS NEEDED paroxetine paroxetine No paroxetine [place] ER 25 mg ER 25 mg ER 25 mg Com ricci tablet,exte tablet,exte tablet,ext ty nded nded ended Hospita release 24 release 24 release 24 l hr TAKE 1 hr TAKE 1 hr TAKE 1 Clinics TABLET BY TABLET BY TABLET BY MOUTH EVERY MOUTH EVERY MOUTH DAY DAY EVERY DAY tobramycin tobramycin No tobramycin [place] 0.3 0.3 0.3 [facility] %-dexametha %-dexametha %-dexameth [...] DAYS tramadol 50 tramadol 50 No tramadol [place] mg tablet mg tablet 50 mg Comm uni tablet ty [facility]ospita l Clinics [facility] triamcinolo No triamcinol [place] ne ne one [facility] acetonide acetonide acetonide [...] FOR 7 DAYS trimethopri trimethopri No trimethopr [place] m 100 mg m 100 mg im 100 mg [facility] tablet TAKE tablet TAKE tablet ty 1 TABLET BY 1 TABLET BY TAKE 1 Hospita MOUTH EVERY MOUTH EVERY TABLET BY l DAY DAY MOUTH Clinics EVERY DAY valacyclovi valacyclovi No valacyclov [place] r 1 gram r 1 gram ir 1 gram [facility] tablet TAKE tablet TAKE tablet ty 1 TABLET BY 1 TABLET BY TAKE 1 Hospita MOUTH TWICE MOUTH TWICE TABLET BY l DAILY prn DAILY prn MOUTH Clin ics TWICE DAILY prn Zithromax Zithromax No Zithromax [place] Z-Andrew 250 Z-Andrew 250 Z-Andrew 250 Communi [...] DAYS cetirizine cetirizine No 1 Q1D cetirizine [place] 10 mg 10 mg 10 mg [facility] tablet Take tablet Take tablet ty 1 tablet 1 tablet Take 1 Hospi ta every day every day tablet l by oral by oral every day Clin ics route at route at by oral bedtime. bedtime. route at bedtime. estradiol estradiol No estradiol [place] 0.01% (0.1 0.01% (0.1 0.01% (0.1 [facility] mg/gram) mg/gram) mg/gram) ty vaginal vaginal vaginal Hospit a cream cream cream l INSERT 1 INSERT 1 INSERT 1 Cli nics GRAM INTO GRAM INTO GRAM INTO VAGINA VAGINA VAGINA TWICE A TWICE A TWICE A WEEK AT WEEK AT WEEK AT NIGHT. NIGHT. NIGHT. fluticasone fluticasone No 1spray( Q1D fluticason [place] propionate propionate s) e Com ricci 50 50 propionate ty mcg/actuati mcg/actuati 50 H ospita on nasal on nasal mcg/actuat l spray,suspe spray,suspe ion nasal Clinics nsion [place] nsion [place] spray,susp 1 spray 1 spray ension every day every day [place] 1 by by spray intranasal intranasal every day route. route. by intranasal route. meclizine meclizine No 1 TID meclizine [place] 25 mg 25 mg 25 mg [facility] tablet Take tablet Take tablet ty 1 tablet 3 1 tablet 3 Take 1 H ospita times a day times a day tablet 3 l by oral by oral times a Clinic s route as route as day by needed. needed. oral route as needed. ondansetron ondansetron No ondansetro [place] 4 mg 4 mg n 4 mg [...] NEEDED propranolol propranolol No 1 TID propranolo [place] 10 mg 10 mg l 10 mg [facility] tablet Take tablet Take tablet ty 1 tablet 3 1 tablet 3 Take 1 H ospita times a day times a day tablet 3 l by oral by oral times a Clinic s route as route as day by needed. needed. oral route as needed. azelastine azelastine No azelastine [place] 205.5 mcg 205.5 mcg 205.5 mcg Communi (0.15 %) (0.15 %) (0.15 %) ty nasal spray nasal spray nasal Hospita 1 SPRAY TO 1 SPRAY TO spray 1 l EACH EACH SPRAY TO Clinics NOSTRIL NOSTRIL EACH TWICE DAILY TWICE DAILY NOSTRIL TWICE DAILY azithromyci azithromyci No azithromyc [place] n 250 mg n 250 mg in 250 mg [facility] tablet tablet tablet ty [facility] cetirizine cetirizine No cetirizine [place] 10 mg 10 mg 10 mg [facility] tablet TAKE tablet TAKE tablet ty 1 TABLET BY 1 TABLET BY TAKE 1 Hospita MOUTH EVERY MOUTH EVERY TABLET BY l NIGHT AT NIGHT AT MOUTH Clinic s BEDTIME BEDTIME EVERY NIGHT AT BEDTIME estradiol estradiol No estradiol [place] 0.01% (0.1 0.01% (0.1 0.01% (0.1 [facility] mg/gram) mg/gram) mg/gram) ty vaginal vaginal vaginal Hospit a cream cream cream l INSERT 1 INSERT 1 INSERT 1 Cli nics GRAM INTO GRAM INTO GRAM INTO VAGINA VAGINA VAGINA TWICE A TWICE A TWICE A WEEK AT WEEK AT WEEK AT NIGHT. NIGHT. NIGHT. fluticasone fluticasone No fluticason [place] propionate propionate e Com ricci 50 50 [...] NOSTRIL EVERY DAY hydroxyzine hydroxyzine No hydroxyzin [place] HCl 25 mg HCl 25 mg e HCl 25 C [facility] tablet TAKE tablet TAKE mg tablet ty 1 TABLET BY 1 TABLET BY [facility]KE [facility] EVERY MOUTH EVERY TABLET BY l 6 HOURS 6 HOURS MOUTH Cl inics NEEDED NEEDED EVERY 6 HOURS NEEDED meclizine meclizine No 1 TID meclizine [place] 25 mg 25 mg 25 mg [facility] tablet Take tablet Take tablet ty 1 tablet 3 1 tablet 3 Take 1 H ospita times a day times a day tablet 3 l by oral by oral times a Clinic s route as route as day by needed. needed. oral route as needed. Medrol Medrol No 1dose Medrol [place] (Andrew) 4 mg (Andrew) 4 mg pk(s) (Andrew) 4 mg [facility] tablets in tablets in tablets in ty a dose pack a dose pack a dose Hospita Take 1 dose Take 1 dose pack Take l pk by oral pk by oral 1 dose pk Clinics route as route as by oral directed. directed. route as directed. ondansetron ondansetron No ondansetro [place] 4 mg 4 mg n 4 mg [facility]i disintegrat disintegrat disintegra ty ing tablet ing tablet ting [facility] DISSOLVE 1 DISSOLVE 1 tablet l TABLET ON TABLET ON DISSOLVE 1 Clinics THE TOUNGE THE TOUNGE TABLET ON EVERY 8 EVERY 8 THE TOUNGE HOURS HOURS EVERY 8 NEEDED NEEDED HOURS NEEDED propranolol propranolol No propranolo [place] 10 mg 10 mg l 10 mg [facility] tablet TAKE tablet TAKE tablet ty 1 TABLET BY 1 TABLET BY TAKE 1 Hospita MOUTH THREE MOUTH THREE TABLET BY l TIMES DAILY TIMES DAILY MOUTH Clinics NEEDED NEEDED THREE TIMES DAILY NEEDED azelastine azelastine No azelastine [place] 205.5 mcg 205.5 mcg 205.5 mcg [facility]i (0.15 %) (0.15 %) (0.15 %) ty nasal spray nasal spray nasal Hospita USE 1 SPRAY USE 1 SPRAY spray USE l IN EACH IN EACH 1 SPRAY IN Cli nics NOSTRIL NOSTRIL EACH TWICE DAILY TWICE DAILY NOSTRIL TWICE DAILY estradiol estradiol No estradiol [place] 0.01% (0.1 0.01% (0.1 0.01% (0.1 [facility] mg/gram) mg/gram) mg/gram) ty vaginal vaginal vaginal Hospit a cream cream cream l INSERT 1 INSERT 1 INSERT 1 Cli nics GRAM INTO GRAM INTO GRAM INTO VAGINA VAGINA VAGINA TWICE A TWICE A TWICE A WEEK AT WEEK AT WEEK AT NIGHT. NIGHT. NIGHT. fluticasone fluticasone No fluticason [place] propionate propionate e Com ricci 50 50 [...] DAY hydroxyzine hydroxyzine No 1 BID hydroxyzin [place] HCl 25 mg HCl 25 mg e HCl 25 C [facility] tablet Take tablet Take mg tablet ty 1 tablet 1 tablet Take 1 Hospi ta twice a day twice a day tablet l by oral by oral twice a Clinic s route as route as day by needed. needed. oral route as needed. hyoscyamine hyoscyamine No hyoscyamin [place] sulfate sulfate e sulfate Comm uni 0.125 mg 0.125 mg 0.125 mg ty tablet TAKE tablet TAKE tablet Hospita 1 TABLET BY 1 TABLET BY TAKE 1 l MOUTH EVERY MOUTH EVERY TABLET BY Clinics 8 HOURS 8 HOURS MOUTH EVERY 8 HOURS levothyroxi levothyroxi No 1 Q1D levothyrox [place] ne 25 mcg ne 25 mcg ine 25 mcg Communi tablet Take tablet Take tablet ty 1 tablet 1 tablet Take 1 Hospi ta every day every day tablet l by oral by oral every day Clin ics route. route. by oral route. meclizine meclizine No 1 TID meclizine [place] 25 mg 25 mg 25 mg [facility] tablet Take tablet Take tablet ty 1 tablet 3 1 tablet 3 Take 1 H ospita times a day times a day tablet 3 l by oral by oral times a Clinic s route as route as day by needed. needed. oral route as needed. venlafaxine venlafaxine No 1capsul Q1D venlafaxin [place] ER 37.5 mg ER 37.5 mg e(s) e ER 37.5 [facility] capsule,ext capsule,ext mg t y ended ended capsule,ex Hospita release 24 release 24 tended l hr Take 1 hr Take 1 release 24 Clinics capsule capsule hr Take 1 every day every day capsule by oral by oral every day route. route. by oral route. azelastine azelastine No azelastine [place] 205.5 mcg 205.5 mcg 205.5 mcg [facility] (0.15 %) (0.15 %) (0.15 %) ty nasal spray nasal spray nasal Hospita USE 1 SPRAY USE 1 SPRAY spray USE l IN EACH IN EACH 1 SPRAY IN Cli nics NOSTRIL NOSTRIL EACH TWICE DAILY TWICE DAILY NOSTRIL TWICE DAILY estradiol estradiol No estradiol [place] 0.01% (0.1 0.01% (0.1 0.01% (0.1 [facility] mg/gram) mg/gram) mg/gram) ty vaginal vaginal vaginal Hospit a cream cream cream l INSERT 1 INSERT 1 INSERT 1 Cli nics GRAM INTO GRAM INTO GRAM INTO VAGINA VAGINA VAGINA TWICE A TWICE A TWICE A WEEK AT WEEK AT WEEK AT NIGHT. NIGHT. NIGHT. fluticasone fluticasone No fluticason [place] propionate propionate e Com ricci 50 50 [...] DAY hydroxyzine hydroxyzine No 1 BID hydroxyzin [place] HCl 25 mg HCl 25 mg e HCl 25 C [facility] tablet Take tablet Take mg tablet ty 1 tablet 1 tablet Take 1 Hospi ta twice a day twice a day tablet l by oral by oral twice a Clinic s route as route as day by needed. needed. oral route as needed. hyoscyamine hyoscyamine No hyoscyamin [place] sulfate sulfate e sulfate Comm uni 0.125 mg 0.125 mg 0.125 mg ty tablet TAKE tablet TAKE tablet Hospita 1 TABLET BY 1 TABLET BY TAKE 1 l MOUTH EVERY MOUTH EVERY TABLET BY Clinics 8 HOURS 8 HOURS MOUTH EVERY 8 HOURS levothyroxi levothyroxi No 1 Q1D levothyrox [place] ne 25 mcg ne 25 mcg ine 25 mcg [facility] tablet Take tablet Take tablet ty 1 tablet 1 tablet Take 1 Hospi ta every day every day tablet l by oral by oral every day Clin ics route. route. by oral route. meclizine meclizine No 1 TID meclizine [place] 25 mg 25 mg 25 mg [facility] tablet Take tablet Take tablet ty 1 tablet 3 1 tablet 3 Take 1 H ospita times a day times a day tablet 3 l by oral by oral times a Clinic s route as route as day by needed. needed. oral route as needed. venlafaxine venlafaxine No 1capsul Q1D venlafaxin [place] ER 37.5 mg ER 37.5 mg e(s) e ER 37.5 [facility] capsule,ext capsule,ext mg t y ended ended capsule,ex Hospita release 24 release 24 tended l hr Take 1 hr Take 1 release 24 Clinics capsule capsule hr Take 1 every day every day capsule by oral by oral every day route. route. by oral route. azelastine azelastine No azelastine [place] 205.5 mcg 205.5 mcg 205.5 mcg [facility] (0.15 %) (0.15 %) (0.15 %) ty nasal spray nasal spray nasal Hospita USE 1 SPRAY USE 1 SPRAY spray USE l IN EACH IN EACH 1 SPRAY IN Cli nics NOSTRIL NOSTRIL EACH TWICE DAILY TWICE DAILY NOSTRIL TWICE DAILY buspirone 5 buspirone 5 No 1 BID buspirone [place] mg tablet mg tablet 5 mg Commu ni Take 1 Take 1 tablet ty tablet tablet Take 1 Hospita twice a day twice a day tablet l by oral by oral twice a Clinic s route for route for day by 30 days. 30 days. oral route for 30 days. dicyclomine dicyclomine No dicyclomin [place] 20 mg 20 mg e 20 mg [...] CRAMPS OR DISCOMFORT estradiol estradiol No estradiol [place] 0.01% (0.1 0.01% (0.1 0.01% (0.1 [facility] mg/gram) mg/gram) mg/gram) ty vaginal vaginal vaginal Hospit a cream cream cream l INSERT 1 INSERT 1 INSERT 1 Cli nics GRAM INTO GRAM INTO GRAM INTO VAGINA VAGINA VAGINA TWICE A TWICE A TWICE A WEEK AT WEEK AT WEEK AT NIGHT. NIGHT. NIGHT. famotidine famotidine No famotidine [place] 20 mg 20 mg 20 mg [facility] tablet TAKE tablet TAKE tablet ty 1 TABLET BY 1 TABLET BY TAKE 1 Hospita MOUTH EVERY MOUTH EVERY TABLET BY l 12 HOURS 12 HOURS MOUTH Clinic s EVERY 12 HOURS fluticasone fluticasone No fluticason [place] propionate propionate e Com ricci 50 50 [...] NOSTRIL EVERY DAY hyoscyamine hyoscyamine No hyoscyamin [place] sulfate sulfate e sulfate Comm uni 0.125 mg 0.125 mg 0.125 mg ty tablet TAKE tablet TAKE tablet Hospita 1 TABLET BY 1 TABLET BY TAKE 1 l MOUTH EVERY MOUTH EVERY TABLET BY Clinics 8 HOURS 8 HOURS MOUTH EVERY 8 HOURS levothyroxi levothyroxi No levothyrox [place] ne 25 mcg ne 25 mcg ine 25 mcg [facility] tablet TAKE tablet TAKE tablet ty 1 TABLET BY 1 TABLET BY TAKE 1 Hospita MOUTH EVERY MOUTH EVERY TABLET BY l DAY DAY MOUTH Clinics EVERY DAY meclizine meclizine No 1 TID meclizine [place] 25 mg 25 mg 25 mg [facility] tablet Take tablet Take tablet ty 1 tablet 3 1 tablet 3 Take 1 H ospita times a day times a day tablet 3 l by oral by oral times a Clinic s route as route as day by needed. needed. oral route as needed. ondansetron ondansetron No ondansetro [place] 4 mg 4 mg n 4 mg [...] Xanax 0.25 No 1 BID Xanax 0.25 [place] mg tablet mg tablet mg tablet [facility] Take 1 Take 1 Take 1 ty tablet tablet tablet Hospita twice a day twice a day twice a l by oral by oral day by Clinics route for route for oral route 14 days. 14 days. for 14 days. azelastine azelastine No azelastine [place] 205.5 mcg 205.5 mcg 205.5 mcg [facility] (0.15 %) (0.15 %) (0.15 %) ty nasal spray nasal spray nasal Hospita USE 1 SPRAY USE 1 SPRAY spray USE l IN EACH IN EACH 1 SPRAY IN Cli nics NOSTRIL NOSTRIL EACH TWICE DAILY TWICE DAILY NOSTRIL TWICE DAILY buspirone 5 buspirone 5 No 1 BID buspirone [place] mg tablet mg tablet 5 mg Commu ni Take 1 Take 1 tablet ty tablet tablet Take 1 Hospita twice a day twice a day tablet l by oral by oral twice a Clinic s route for route for day by 30 days. 30 days. oral route for 30 days. dicyclomine dicyclomine No dicyclomin [place] 20 mg 20 mg e 20 mg [...] CRAMPS OR DISCOMFORT estradiol estradiol No estradiol [place] 0.01% (0.1 0.01% (0.1 0.01% (0.1 [facility] mg/gram) mg/gram) mg/gram) ty vaginal vaginal vaginal Hospit a cream cream cream l INSERT 1 INSERT 1 INSERT 1 Cli nics GRAM INTO GRAM INTO GRAM INTO VAGINA VAGINA VAGINA TWICE A TWICE A TWICE A WEEK AT WEEK AT WEEK AT NIGHT. NIGHT. NIGHT. famotidine famotidine No famotidine [place] 20 mg 20 mg 20 mg [facility] tablet TAKE tablet TAKE tablet ty 1 TABLET BY 1 TABLET BY TAKE 1 Hospita MOUTH EVERY MOUTH EVERY TABLET BY l 12 HOURS 12 HOURS MOUTH Clinic s EVERY 12 HOURS fluticasone fluticasone No fluticason [place] propionate propionate e Com ricci 50 50 [...] NOSTRIL EVERY DAY hyoscyamine hyoscyamine No hyoscyamin [place] sulfate sulfate e sulfate Comm uni 0.125 mg 0.125 mg 0.125 mg ty tablet TAKE tablet TAKE tablet Hospita 1 TABLET BY 1 TABLET BY TAKE 1 l MOUTH EVERY MOUTH EVERY TABLET BY Clinics 8 HOURS 8 HOURS MOUTH EVERY 8 HOURS levothyroxi levothyroxi No levothyrox [place] ne 25 mcg ne 25 mcg ine 25 mcg [facility] tablet TAKE tablet TAKE tablet ty 1 TABLET BY 1 TABLET BY TAKE 1 Hospita MOUTH EVERY MOUTH EVERY TABLET BY l DAY DAY MOUTH Clinics EVERY DAY meclizine meclizine No 1 TID meclizine [place] 25 mg 25 mg 25 mg [facility] tablet Take tablet Take tablet ty 1 tablet 3 1 tablet 3 Take 1 H ospita times a day times a day tablet 3 l by oral by oral times a Clinic s route as route as day by needed. needed. oral route as needed. ondansetron ondansetron No ondansetro [place] 4 mg 4 mg n 4 mg [...] Xanax 0.25 No 1 BID Xanax 0.25 [place] mg tablet mg tablet mg tablet [facility] Take 1 Take 1 Take 1 ty tablet tablet tablet Hospita twice a day twice a day twice a l by oral by oral day by Clinics route for route for oral route 14 days. 14 days. for 14 days. alprazolam alprazolam No alprazolam [place] 0.25 mg 0.25 mg 0.25 mg Commun i tablet TAKE tablet TAKE tablet ty 1 TABLET BY 1 TABLET BY TAKE 1 Hospita MOUTH TWICE MOUTH TWICE TABLET BY l DAILY FOR DAILY FOR MOUTH Clin ics 14 DAYS 14 DAYS TWICE DAILY FOR 14 DAYS azelastine azelastine No azelastine [place] 205.5 mcg 205.5 mcg 205.5 mcg [facility] (0.15 %) (0.15 %) (0.15 %) ty nasal spray nasal spray nasal [facility]osp[facility] USE 1 SPRAY USE 1 SPRAY spray USE l IN EACH IN EACH 1 SPRAY IN Cli nics NOSTRIL NOSTRIL EACH TWICE DAILY TWICE DAILY NOSTRIL TWICE DAILY buspirone 5 buspirone 5 No buspirone [place] mg tablet mg tablet 5 mg [facility] ni TAKE 1 TAKE 1 tablet ty TABLET BY TABLET BY TAKE 1 [facility] MOUTH TWICE MOUTH TWICE TABLET BY l DAILY DAILY MOUTH Clinics TWICE DAILY estradiol estradiol No estradiol [facility] 0.01% (0.1 0.01% (0.1 0.01% (0.1 [facility] mg/gram) mg/gram) mg/gram) ty vaginal vaginal vaginal Hospit a cream cream cream l INSERT 1 INSERT 1 INSERT 1 Cli nics GRAM INTO GRAM INTO GRAM INTO VAGINA VAGINA VAGINA TWICE A TWICE A TWICE A WEEK AT WEEK AT WEEK AT NIGHT. NIGHT. NIGHT. fluticasone fluticasone No fluticason [place] propionate propionate e Com ricci 50 50 [...] NOSTRIL EVERY DAY hyoscyamine hyoscyamine No hyoscyamin [place] sulfate sulfate e sulfate Comm uni 0.125 mg 0.125 mg 0.125 mg ty tablet TAKE tablet TAKE tablet [facility]osp[facility] 1 TABLET BY 1 TABLET BY TAKE 1 l MOUTH EVERY MOUTH EVERY TABLET BY Clinics 8 HOURS 8 HOURS MOUTH EVERY 8 HOURS levothyroxi levothyroxi No levothyrox [place] ne 25 mcg ne 25 mcg ine 25 mcg [facility] tablet TAKE tablet TAKE tablet ty 1 TABLET BY 1 TABLET BY TAKE 1 [facility]ospita MOUTH EVERY MOUTH EVERY TABLET BY l DAY DAY MOUTH Clinics EVERY DAY meclizine meclizine No 1 TID meclizine [place] 25 mg 25 mg 25 mg [facility] tablet Take tablet Take tablet ty 1 tablet 3 1 tablet 3 Take 1 [facility] times a day times a day tablet 3 l by oral by oral times a Clinic s route as route as day by needed. needed. oral route as needed. ondansetron ondansetron No ondansetro [place] 4 mg 4 mg n 4 mg [...] NAUSEA valacyclovi valacyclovi No 1 TID valacyclov [place] r 1 gram r 1 gram ir [...] days. Xifaxan 550 Xifaxan 550 No Xifaxan [place] mg tablet mg tablet 550 mg Com ricci tablet ty [facility]osp[facility] l Clinics alprazolam alprazolam No alprazolam [place] 0.25 mg 0.25 mg 0.25 mg Commun i tablet TAKE tablet TAKE tablet ty 1 TABLET BY 1 TABLET BY TAKE 1 [facility]osp[facility] MOUTH TWICE MOUTH TWICE TABLET BY l DAILY FOR DAILY FOR MOUTH Clin ics 14 DAYS 14 DAYS TWICE DAILY FOR 14 DAYS azelastine azelastine No azelastine [facility] 205.5 mcg 205.5 mcg 205.5 mcg [facility] (0.15 %) (0.15 %) (0.15 %) ty nasal spray nasal spray nasal [facility] USE 1 SPRAY USE 1 SPRAY spray USE l IN EACH IN EACH 1 SPRAY IN Cli nics NOSTRIL NOSTRIL EACH TWICE DAILY TWICE DAILY NOSTRIL TWICE DAILY buspirone 5 buspirone 5 No buspirone [place] mg tablet mg tablet 5 mg [facility] ni TAKE 1 TAKE 1 tablet ty TABLET BY TABLET BY TAKE 1 [facility] MOUTH TWICE MOUTH TWICE TABLET BY l DAILY DAILY MOUTH Clinics TWICE DAILY estradiol estradiol No estradiol [facility] 0.01% (0.1 0.01% (0.1 0.01% (0.1 [facility] mg/gram) mg/gram) mg/gram) ty vaginal vaginal vaginal Hospit a cream cream cream l INSERT 1 INSERT 1 INSERT 1 Cli nics GRAM INTO GRAM INTO GRAM INTO VAGINA VAGINA VAGINA TWICE A TWICE A TWICE A WEEK AT WEEK AT WEEK AT NIGHT. NIGHT. NIGHT. fluticasone fluticasone No fluticason [place] propionate propionate e Com ricci 50 50 [...] NOSTRIL EVERY DAY hyoscyamine hyoscyamine No hyoscyamin [place] sulfate sulfate e sulfate Comm uni 0.125 mg 0.125 mg 0.125 mg ty tablet TAKE tablet TAKE tablet [facility] 1 TABLET BY 1 TABLET BY TAKE 1 l MOUTH EVERY MOUTH EVERY TABLET BY Clinics 8 HOURS 8 HOURS MOUTH EVERY 8 HOURS levothyroxi levothyroxi No levothyrox [place] ne 25 mcg ne 25 mcg ine 25 mcg [facility] tablet TAKE tablet TAKE tablet ty 1 TABLET BY 1 TABLET BY TAKE 1 [facility]osp[facility] MOUTH EVERY MOUTH EVERY TABLET BY l DAY DAY MOUTH Clinics EVERY DAY meclizine meclizine No 1 TID meclizine [place] 25 mg 25 mg 25 mg [facility] tablet Take tablet Take tablet ty 1 tablet 3 1 tablet 3 Take 1 [facility] times a day times a day tablet 3 l by oral by oral times a Clinic s route as route as day by needed. needed. oral route as needed. omeprazole omeprazole No omeprazole [place] 20 mg 20 mg 20 mg [facility] capsule,del capsule,del capsule,de ty ayed ayed layed [facility]osp[facility] release release release l TAKE 1 TAKE 1 TAKE 1 Clinics CAPSULE BY CAPSULE BY CAPSULE BY MOUTH DAILY MOUTH DAILY MOUTH DAILY ondansetron ondansetron No ondansetro [place] 4 mg 4 mg n 4 mg [...] 5 DAYS NAUSEA NAUSEA NEEDED FOR NAUSEA orphenadrin orphenadrin No orphenadri [facility] e citrate e citrate ne citrate [facility] ER 100 mg ER 100 mg ER 100 mg ty tablet,exte tablet,exte tablet,ext [facility]osp[facility] nded nded ended l release release release Clinic s TAKE 1 TAKE 1 TAKE 1 TABLET BY TABLET BY TABLET BY MOUTH TWICE MOUTH TWICE MOUTH DAILY DAILY TWICE NEEDED NEEDED DAILY NEEDED tramadol tramadol No tramadol Swe venkat 37.5 37.5 37.5 [facility] mg-acetamin mg-acetamin mg-acetami ty ophen 325 ophen 325 nophen 325 [facility]osp[facility] mg tablet mg tablet mg tablet l Clinics valacyclovi valacyclovi No valacyclov [place] r 1 gram r 1 gram ir 1 gram [facility] tablet TAKE tablet TAKE tablet ty 1 TABLET BY 1 TABLET BY TAKE 1 [facility]ospita MOUTH THREE MOUTH THREE TABLET BY l TIMES DAILY TIMES DAILY MOUTH Clinics FOR 7 DAYS FOR 7 DAYS THREE TIMES DAILY FOR 7 DAYS Xifaxan 550 Xifaxan 550 No Xifaxan [place] mg tablet mg tablet 550 mg Com ricci tablet ty [facility] l Clinics alprazolam alprazolam No alprazolam [place] 0.25 mg 0.25 mg 0.25 mg [facility] i tablet TAKE tablet TAKE tablet ty 1 TABLET BY 1 TABLET BY TAKE 1 [facility] MOUTH TWICE MOUTH TWICE TABLET BY l DAILY FOR DAILY FOR MOUTH Clin ics 14 DAYS 14 DAYS TWICE DAILY FOR 14 DAYS azelastine azelastine No azelastine [place] 205.5 mcg 205.5 mcg 205.5 mcg [facility] (0.15 %) (0.15 %) (0.15 %) ty nasal spray nasal spray nasal [facility] USE 1 SPRAY USE 1 SPRAY spray USE l IN EACH IN EACH 1 SPRAY IN Cli nics NOSTRIL NOSTRIL EACH TWICE DAILY TWICE DAILY NOSTRIL TWICE DAILY buspirone 5 buspirone 5 No buspirone [place] mg tablet mg tablet 5 mg [facility] ni TAKE 1 TAKE 1 tablet ty TABLET BY TABLET BY TAKE 1 [facility] MOUTH TWICE MOUTH TWICE TABLET BY l DAILY DAILY MOUTH Clinics TWICE DAILY estradiol estradiol No estradiol [facility] 0.01% (0.1 0.01% (0.1 0.01% (0.1 [facility] mg/gram) mg/gram) mg/gram) ty vaginal vaginal vaginal Hospit a cream cream cream l INSERT 1 INSERT 1 INSERT 1 Cli nics GRAM INTO GRAM INTO GRAM INTO VAGINA VAGINA VAGINA TWICE A TWICE A TWICE A WEEK AT WEEK AT WEEK AT NIGHT. NIGHT. NIGHT. fluticasone fluticasone No fluticason [place] propionate propionate e Com ricci 50 50 [...] NOSTRIL EVERY DAY hyoscyamine hyoscyamine No hyoscyamin [place] sulfate sulfate e sulfate Comm uni 0.125 mg 0.125 mg 0.125 mg ty tablet TAKE tablet TAKE tablet [facility] 1 TABLET BY 1 TABLET BY TAKE 1 l MOUTH EVERY MOUTH EVERY TABLET BY Clinics 8 HOURS 8 HOURS MOUTH EVERY 8 HOURS levothyroxi levothyroxi No levothyrox [place] ne 25 mcg ne 25 mcg ine 25 mcg [facility] tablet TAKE tablet TAKE tablet ty 1 TABLET BY 1 TABLET BY TAKE 1 [facility] MOUTH EVERY MOUTH EVERY TABLET BY l DAY DAY MOUTH Clinics EVERY DAY meclizine meclizine No 1 TID meclizine [place] 25 mg 25 mg 25 mg [facility] tablet Take tablet Take tablet ty 1 tablet 3 1 tablet 3 Take 1 [facility] times a day times a day tablet 3 l by oral by oral times a Clinic s route as route as day by needed. needed. oral route as needed. omeprazole omeprazole No omeprazole [place] 20 mg 20 mg 20 mg [facility] capsule,del capsule,del capsule,de ty ayed ayed layed [facility]osp[facility] release release release l TAKE 1 TAKE 1 TAKE 1 Clinics CAPSULE BY CAPSULE BY CAPSULE BY MOUTH DAILY MOUTH DAILY MOUTH DAILY ondansetron ondansetron No ondansetro [place] 4 mg 4 mg n 4 mg [...] 5 DAYS NAUSEA NAUSEA NEEDED FOR NAUSEA orphenadrin orphenadrin No orphenadri [place] e citrate e citrate ne citrate [facility] ER 100 mg ER 100 mg ER 100 mg ty tablet,exte tablet,exte tablet,ext [facility]osp[facility] nded nded ended l release release release Clinic s TAKE 1 TAKE 1 TAKE 1 TABLET BY TABLET BY TABLET BY MOUTH TWICE MOUTH TWICE MOUTH DAILY DAILY TWICE NEEDED NEEDED DAILY NEEDED sucralfate sucralfate No sucralfate [place] 1 gram 1 gram 1 gram [facility] tablet TAKE tablet TAKE tablet ty 1 TABLET BY 1 TABLET BY TAKE 1 [facility]osp[facility] MOUTH FOUR MOUTH FOUR TABLET BY l TIMES DAILY TIMES DAILY MOUTH FOUR Clinics BEFORE BEFORE TIMES MEALS MEALS DAILY BEFORE MEALS tramadol tramadol No tramadol Swe venkat 37.5 37.5 37.5 [facility] mg-acetamin mg-acetamin mg-acetami ty ophen 325 ophen 325 nophen 325 [facility] mg tablet mg tablet mg tablet l Clinics tramadol 50 tramadol 50 No tramadol [place] mg tablet mg tablet 50 mg Comm uni TAKE 1 TAKE 1 tablet ty TABLET BY TABLET BY TAKE 1 [facility] MOUTH EVERY MOUTH EVERY TABLET BY l 4 HOURS 4 HOURS MOUTH Cl inics NEEDED FOR NEEDED FOR EVERY 4 PAIN PAIN HOURS NEEDED FOR PAIN valacyclovi valacyclovi No valacyclov [place] r 1 gram r 1 gram ir 1 gram [facility] tablet TAKE tablet TAKE tablet ty 1 TABLET BY 1 TABLET BY TAKE 1 [facility]osp[facility] MOUTH THREE MOUTH THREE TABLET BY l TIMES DAILY TIMES DAILY MOUTH Clinics FOR 7 DAYS FOR 7 DAYS THREE TIMES DAILY FOR 7 DAYS Xifaxan 550 Xifaxan 550 No Xifaxan [place] mg tablet mg tablet 550 mg Com ricci tablet ty [facility] l Clinics acyclovir 5 acyclovir 5 No acyclovir [place] % topical % topical 5 % Commu ni ointment ointment topical ty APPLY TO APPLY TO ointment [facility] THE THE APPLY TO l AFFECTED AFFECTED THE Clinics AREA EVERY AREA EVERY AFFECTED 2 HOURS 2 HOURS AREA EVERY DURING DURING 2 HOURS AWAKE HOURS AWAKE HOURS DURING FOR 4 DAYS FOR 4 DAYS AWAKE HOURS FOR 4 DAYS amoxicillin amoxicillin No amoxicilli [place] 500 500 n 500 [facility] mg-potassiu mg-potassiu [...] ty kit TEST kit TEST Test kit [facility] DIRECT[facility] TEST l TODAY TODAY DIRECTED Clinics TODAY cephalexin cephalexin No cephalexin [place] 500 mg 500 mg 500 mg [facility] capsule capsule capsule ty TAKE 1 TAKE 1 TAKE 1 [facility]ospita CAPSULE BY CAPSULE BY CAPSULE BY l MOUTH TWICE MOUTH TWICE MOUTH Clinics DAILY DAILY TWICE DAILY estradiol estradiol No estradiol [facility] 0.01% (0.1 0.01% (0.1 0.01% (0.1 [facility] mg/gram) mg/gram) mg/gram) ty vaginal vaginal vaginal Hospit a cream cream cream l INSERT 1 INSERT 1 INSERT 1 Cli nics GRAM INTO GRAM INTO GRAM INTO VAGINA VAGINA VAGINA TWICE A TWICE A TWICE A WEEK AT WEEK AT WEEK AT NIGHT. NIGHT. NIGHT. fluconazole fluconazole No fluconazol [place] 150 mg 150 mg e 150 mg [facility] tablet tablet tablet ty [facility] l Clinics hydroxyzine hydroxyzine No hydroxyzin [place] HCl 25 mg HCl 25 mg e [...] Kenalog 40 No 60mg Q1D Kenalog 40 [place] mg/mL mg/mL mg/mL [facility] suspension suspension suspension ty for for for Hospita injection injection injection l Take 60 mg Take 60 mg Take 60 mg Clinics every day every day every day by by by injection injection injection route. route. route. metoprolol metoprolol No metoprolol [place] succinate succinate succinate [facility] ER 25 mg ER 25 mg ER 25 mg ty tablet,exte tablet,exte tablet,ext [facility]ospita nded nded ended l release 24 release 24 release 24 Clinics hr TAKE 1 hr TAKE 1 hr TAKE 1 TABLET BY TABLET BY TABLET BY MOUTH EVERY MOUTH EVERY MOUTH DAY DAY EVERY DAY metronidazo metronidazo No metronidaz [place] le 500 mg le 500 mg ole 500 mg [facility] tablet TAKE tablet TAKE tablet ty 1 TABLET BY 1 TABLET BY TAKE 1 [facility] MOUTH EVERY MOUTH EVERY TABLET BY l 8 HOURS FOR 8 HOURS FOR MOUTH Clinics 7 DAYS 7 DAYS EVERY 8 HOURS FOR 7 DAYS omeprazole omeprazole No omeprazole [place] 20 mg 20 mg 20 mg [facility] capsule,del capsule,del capsule,de ty ayed ayed layed [facility]osp[facility] release release release l TAKE 1 TAKE 1 TAKE 1 Clinics CAPSULE BY CAPSULE BY CAPSULE BY MOUTH DAILY MOUTH DAILY MOUTH DAILY ondansetron ondansetron No ondansetro [place] 4 mg 4 mg n 4 mg [...] 6 DAYS NEEDED paroxetine paroxetine No paroxetine [place] ER 25 mg ER 25 mg ER 25 mg Com ricci tablet,exte tablet,exte tablet,ext ty nded nded ended [facility]ospita release 24 release 24 release 24 l hr TAKE 1 hr TAKE 1 hr TAKE 1 Clinics TABLET BY TABLET BY TABLET BY MOUTH EVERY MOUTH EVERY MOUTH DAY DAY EVERY DAY tobramycin tobramycin No tobramycin [place] 0.3 0.3 0.3 [facility] %-dexametha %-dexametha %-dexameth [...] FOR 5 DAYS triamcinolo triamcinolo No triamcinol [place] ne ne one [facility] acetonide acetonide acetonide [...] FOR 7 DAYS trimethopri trimethopri No trimethopr [place] m 100 mg m 100 mg im 100 mg [facility] tablet TAKE tablet TAKE tablet ty 1 TABLET BY 1 TABLET BY TAKE 1 [facility]osp[facility] MOUTH EVERY MOUTH EVERY TABLET BY l DAY DAY MOUTH Clinics EVERY DAY valacyclovi valacyclovi No valacyclov [place] r 1 gram r 1 gram ir 1 gram [facility] tablet TAKE tablet TAKE tablet ty 1 TABLET BY 1 TABLET BY TAKE 1 [facility]osp[facility] MOUTH TWICE MOUTH TWICE TABLET BY l DAILY prn DAILY prn MOUTH Clin ics TWICE DAILY prn amoxicillin amoxicillin No amoxicilli [place] [id number] n 875 [facility] mg-potassiu mg-potassiu mg-potassi ty m m um [facility] clavulanate clavulanate clavulanat l 125 mg 125 mg e 125 mg Clinics tablet tablet tablet Flagyl 500 Flagyl 500 No 1 Q8H Flagyl 500 [place] mg tablet mg tablet mg tablet [facility] Take 1 Take 1 Take 1 ty tablet tablet tablet [facility]osp[facility] every 8 every 8 every 8 l hours by hours by hours by Cli nics oral route. oral route. oral route. prednisone prednisone No 1 BID prednisone [place] 20 mg 20 mg 20 mg [facility] tablet Take tablet Take tablet ty 1 tablet 1 tablet Take 1 Hospi ta twice a day twice a day tablet l by oral by oral twice a Clinic s route for 5 route for 5 day by days. days. oral route for 5 days. Valtrex 1 Valtrex 1 No 1 TID Valtrex 1 [place] gram tablet gram tablet gram [facility] Take 1 Take 1 tablet ty tablet 3 tablet 3 Take 1 Hospi ta times a day times a day tablet 3 l by oral by oral times a Clinic s route for 7 route for 7 day by days. days. oral route for 7 days. Vistaril 25 Vistaril 25 No 1capsul Q7H Vistaril [place] mg capsule mg capsule e(s) 25 mg Co [facility] Take 1 Take 1 capsule ty capsule capsule Take 1 Hospita every 6-8 every 6-8 capsule l hours by hours by every 6-8 Cl inics oral route oral route hours by as needed. as needed. oral route as needed. dicyclomine dicyclomine No 1 TID dicyclomin [place] 20 mg 20 mg e 20 mg [facility] tablet Take tablet Take tablet ty 1 tablet 3 1 tablet 3 Take 1 H [facility] times a day times a day tablet 3 l by oral by oral times a Clinic s route as route as day by needed. needed. oral route as needed. hyoscyamine hyoscyamine No hyoscyamin [place] 0.125 mg 0.125 mg e 0.125 mg C [facility] sublingual sublingual sublingual ty tablet tablet tablet [facility]ospita l Clinics ivermectin ivermectin No 2 BID ivermectin [place] 3 mg tablet 3 mg tablet 3 mg C [facility] Take 2 Take 2 tablet ty tablets tablets Take 2 [facility]ospita twice a day twice a day tablets l by oral by oral twice a Clinic s route. route. day by oral route. Denavir 1 % Denavir 1 % No Denavir 1 [place] topical topical % topical Comm uni cream APPLY cream APPLY cream ty TO THE TO THE APPLY TO [facility] AFFECTED AFFECTED THE l AREA(S) BY AREA(S) BY AFFECTED Clinics TOPICAL TOPICAL AREA(S) BY ROUTE EVERY ROUTE EVERY TOPICAL 2 HOURS 2 HOURS ROUTE DURING DURING EVERY 2 WAKING WAKING HOURS HOURS FOR 4 HOURS FOR 4 WAKING HOURS FOR 4 DAYS No [place] Once Daily Once Daily Once Daily Commun[facility] [...] DAILY valacyclovi valacyclovi No 1 TID valacyclov [place] r 1 gram r 1 gram ir [...] % Denavir 1 % No Denavir 1 [place] topical topical % topical Comm uni cream APPLY cream APPLY cream ty TO THE TO THE APPLY TO [facility] AFFECTED AFFECTED THE l AREA(S) BY AREA(S) BY AFFECTED Clinics TOPICAL TOPICAL AREA(S) BY ROUTE EVERY ROUTE EVERY TOPICAL 2 HOURS 2 HOURS ROUTE DURING DURING EVERY 2 WAKING WAKING HOURS HOURS FOR 4 HOURS FOR 4 WAKING HOURS FOR 4 DAYS No [place] Once Daily Once Daily Once Daily Communi [...] DAILY valacyclovi valacyclovi No 1 TID valacyclov [place] r 1 gram r 1 gram ir [...] days. acyclovir 5 acyclovir 5 No acyclovir [place] % topical % topical 5 % Commu [...] DAYS cefdinir cefdinir No 1capsul Q12H cefdinir [place] 300 mg 300 mg e(s) 300 mg [facility] capsule capsule capsule ty Take 1 Take 1 Take 1 Hospita capsule capsule capsule l every 12 every 12 every 12 Cli nics hours by hours by hours by oral route. oral route. oral route. Denavir 1 % Denavir 1 % No Denavir 1 [place] topical topical % topical Comm uni cream [...] FOR 4 DAYS hyoscyamine hyoscyamine No hyoscyamin [place] 0.125 mg 0.125 mg e 0.125 mg C [facility] disintegrat disintegrat disintegra ty ing tablet ing tablet ting [facility] tablet l Clinics Pataday Pataday No Pataday [place] Once Daily Once Daily Once Daily [facility] Relief 0.2 Relief 0.2 Relief 0.2 ty % eye drops % eye drops % eye Hospita INSTILL 1 INSTILL 1 drops l DROP INTO DROP INTO INSTILL 1 Clinics AFFECTED AFFECTED DROP INTO EYE(S) BY EYE(S) BY AFFECTED OPHTHALMIC OPHTHALMIC EYE(S) BY ROUTE ONCE ROUTE ONCE OPHTHALMIC DAILY DAILY ROUTE ONCE DAILY sulfamethox sulfamethox No sulfametho [place] azole 800 azole 800 xazole 800 [facility] mg-trimetho mg-trimetho mg-trimeth ty prim 160 mg prim 160 mg oprim 160 Hospita tablet tablet mg tablet l [facility] valacyclovi valacyclovi No 1 TID valacyclov [place] r 1 gram r 1 gram ir [...] days. acyclovir 5 acyclovir 5 No acyclovir [place] % topical % topical 5 % Commu ni ointment ointment topical ty APPLY TO APPLY TO ointment [facility] THE THE APPLY TO l AFFECTED AFFECTED THE Clinics AREA EVERY AREA EVERY AFFECTED 2 HOURS 2 HOURS AREA EVERY DURING DURING 2 HOURS AWAKE HOURS AWAKE HOURS DURING FOR 4 DAYS FOR 4 DAYS AWAKE HOURS FOR 4 DAYS carbamazepi carbamazepi No carbamazep [place] ne ER 100 ne ER 100 ine ER 100 [facility] mg mg mg ty tablet,exte tablet,exte tablet,ext Hospita nded nded ended l release,12 release,12 release,12 Clinics hr TAKE 1 hr TAKE 1 hr TAKE 1 TABLET BY TABLET BY TABLET BY MOUTH EVERY MOUTH EVERY MOUTH 12 HOURS 12 HOURS EVERY 12 HOURS hyoscyamine hyoscyamine No hyoscyamin [place] 0.125 mg 0.125 mg e 0.125 mg [facility] disintegrat disintegrat disintegra ty ing tablet ing tablet ting [facility] tablet [facility] No valacyclov [place] r 1 gram r 1 gram ir 1 gram [facility] tablet TAKE tablet TAKE tablet ty 1 TABLET BY 1 TABLET BY TAKE 1 Hospita MOUTH EVERY MOUTH EVERY TABLET BY l DAY FOR 30 DAY FOR 30 MOUTH Cl inics DAYS DAYS EVERY DAY FOR 30 DAYS acyclovir 5 acyclovir 5 No acyclovir [place] % topical % topical 5 % Commu [...] DAYS clonidine clonidine No 1 Q1D clonidine [place] HCl ER 0.1 HCl ER 0.1 HCl [...] evening. DripDrop DripDrop No 1packet Q1D DripDrop [place] 305 mg-175 305 mg-175 (s) 305 mg-175 [facility] mg-70 mg mg-70 mg mg-70 mg ty oral powder oral powder oral H [facility]ita packet Take packet Take powder l 1 packet 1 packet packet Clini cs every day every day Take 1 by oral by oral packet route as route as every day needed. needed. by oral route as needed. hyoscyamine hyoscyamine No hyoscyamin [place] 0.125 mg 0.125 mg e 0.125 mg [facility] disintegrat disintegrat disintegra ty ing tablet ing tablet ting [facility] tablet l Clinics Kenalog 40 Kenalog 40 No .5mL Q1D Kenalog 40 [place] mg/mL mg/mL mg/mL [facility] suspension suspension suspension ty for for for Hospita injection injection injection l Take 0.5 mL Take 0.5 mL Take 0.5 Clinics every day every day mL every by by day by injection injection injection route for 1 route for 1 route for day. day. 1 day. lidocaine lidocaine No 2mL Q1D lidocaine [place] (PF) 10 (PF) 10 (PF) 10 Commun i mg/mL (1 %) mg/mL (1 %) mg/mL (1 ty injection injection %) Hospi ta solution solution injection l Take 2 mL Take 2 mL solution C linics every day every day Take 2 mL by by every day injection injection by route. route. injection route. pantoprazol pantoprazol No 1 Q1D pantoprazo [place] e 40 mg e 40 mg le 40 mg Commu ni tablet,hodan tablet,hodan tablet,del ty yed release yed release ayed H [facility]spita Take 1 Take 1 release l tablet tablet Take 1 Clinics every day every day tablet by oral by oral every day route. route. by oral route. valacyclovi valacyclovi No valacyclov [place] r 1 gram r 1 gram ir 1 gram [facility] tablet TAKE tablet TAKE tablet ty 1 TABLET BY 1 TABLET BY TAKE 1 Hospita MOUTH EVERY MOUTH EVERY TABLET BY l DAY FOR 30 DAY FOR 30 MOUTH Cl inics DAYS DAYS EVERY DAY FOR 30 DAYS Artificial Artificial No 1drop(s Q1D Artificial [place] Tears Tears ) Tears [facility] (polyvinyl (polyvinyl (polyvinyl ty alcohol) alcohol) alcohol) [facility] 1.4 % eye 1.4 % eye 1.4 % eye l drops Apply drops Apply drops Clinics 1 drop 1 drop Apply 1 every day every day drop every by by day by ophthalmic ophthalmic ophthalmic route. route. route. azithromyci azithromyci No 1 Q1D azithromyc [place] n 500 mg n 500 mg in 500 mg [facility] tablet Take tablet Take tablet ty 1 tablet 1 tablet Take 1 Hospi ta every day every day tablet l by oral by oral every day Clin ics route for 5 route for 5 by oral days. days. route for 5 days. DripDrop DripDrop No 1packet Q1D DripDrop [place] 305 mg-175 305 mg-175 (s) 305 mg-175 [facility] mg-70 mg mg-70 mg mg-70 mg ty oral powder oral powder oral H [facility]ita packet Take packet Take powder l 1 packet 1 packet packet Clini cs every day every day Take 1 by oral by oral packet route as route as every day needed. needed. by oral route as needed. hyoscyamine hyoscyamine No hyoscyamin [place] 0.125 mg 0.125 mg e 0.125 mg [facility] disintegrat disintegrat disintegra ty ing tablet ing tablet ting [facility] tablet l Clinics pantoprazol pantoprazol No pantoprazo [place] e 40 mg e 40 mg le 40 mg Commu ni tablet,hodan tablet,hodan tablet,del ty yed release yed release ayed H [facility]spita TAKE 1 TAKE 1 release l TABLET BY TABLET BY TAKE 1 Cli nics MOUTH EVERY MOUTH EVERY TABLET BY DAY DAY MOUTH EVERY DAY acetylcyste acetylcyste No 1capsul BID acetylcyst [place] ine 600 mg ine 600 mg e(s) eine 600 [facility] capsule capsule mg capsule ty Take 1 Take 1 Take 1 Hospita capsule capsule capsule l twice a day twice a day twice a Clinics by oral by oral day by route. route. oral route. Artificial Artificial No 1drop(s Q1D Artificial [place] Tears Tears ) Tears [facility] (polyvinyl (polyvinyl (polyvinyl ty alcohol) alcohol) alcohol) [facility] 1.4 % eye 1.4 % eye 1.4 % eye l drops Apply drops Apply drops Clinics 1 drop 1 drop Apply 1 every day every day drop every by by day by ophthalmic ophthalmic ophthalmic route. route. route. Effexor XR Effexor XR No 1capsul Q1D Effexor XR [place] 75 mg 75 mg e(s) 75 mg [facility] capsule,ext capsule,ext capsule,ex ty ended ended tended Hospita release release release l Take 1 Take 1 Take 1 Clinics capsule capsule capsule every day every day every day by oral by oral by oral route for route for route for 90 days. 90 days. 90 days. hyoscyamine hyoscyamine No hyoscyamin [place] 0.125 mg 0.125 mg e 0.125 mg [facility] disintegrat disintegrat disintegra ty ing tablet ing tablet ting [facility] tablet l Clinics pantoprazol pantoprazol No pantoprazo [place] e 40 mg e 40 mg le 40 mg Commu ni tablet,hodan tablet,hodan tablet,del ty yed release yed release ayed H [facility]spita TAKE 1 TAKE 1 release l TABLET BY TABLET BY TAKE 1 Cli nics MOUTH EVERY MOUTH EVERY TABLET BY DAY DAY MOUTH EVERY DAY acetylcyste acetylcyste No 1capsul BID acetylcyst [place] ine 600 mg ine 600 mg e(s) eine 600 [facility] capsule capsule mg capsule ty Take 1 Take 1 Take 1 Hospita capsule capsule capsule l twice a day twice a day twice a Clinics by oral by oral day by route. route. oral route. Artificial Artificial No 1drop(s Q1D Artificial [place] Tears Tears ) Tears [facility] (polyvinyl (polyvinyl (polyvinyl ty alcohol) alcohol) alcohol) [facility] 1.4 % eye 1.4 % eye 1.4 % eye l drops Apply drops Apply drops Clinics 1 drop 1 drop Apply 1 every day every day drop every by by day by ophthalmic ophthalmic ophthalmic route. route. route. Effexor XR Effexor XR No 1capsul Q1D Effexor XR [place] 75 mg 75 mg e(s) 75 mg [facility] capsule,ext capsule,ext capsule,ex ty ended ended tended Hospita release release release l Take 1 Take 1 Take 1 Clinics capsule capsule capsule every day every day every day by oral by oral by oral route for route for route for 90 days. 90 days. 90 days. hyoscyamine hyoscyamine No hyoscyamin [place] 0.125 mg 0.125 mg e 0.125 mg [facility] disintegrat disintegrat disintegra ty ing tablet ing tablet ting [facility] tablet l [facility] pantoprazol pantoprazol No pantoprazo [place] e 40 mg e 40 mg le 40 mg Commu ni tablet,hodan tablet,hodan tablet,del ty yed release yed release ayed [facility] TAKE 1 TAKE 1 release l TABLET BY TABLET BY TAKE 1 Cli nics MOUTH EVERY MOUTH EVERY TABLET BY DAY DAY MOUTH EVERY DAY acyclovir acyclovir No 1 Q1D acyclovir [place] 400 mg 400 mg 400 mg [facility] tablet Take tablet Take tablet ty 1 tablet 1 tablet Take 1 Hospi ta every day every day tablet l by oral by oral every day Clin ics route for route for by oral 30 days. 30 days. route for 30 days. amoxicillin amoxicillin No amoxicilli [place] [phone] n 875 [facility] mg-potassiu mg-potassiu mg-potassi ty m m um [facility]ospita clavulanate clavulanate clavulanat l 125 mg 125 mg e 125 mg Clinics tablet TAKE tablet TAKE tablet 1 TABLET BY 1 TABLET BY TAKE 1 MOUTH EVERY MOUTH EVERY TABLET BY 12 HOURS 12 HOURS MOUTH EVERY 12 HOURS metronidazo metronidazo No metronidaz [place] le 500 mg le 500 mg ole 500 mg [facility] tablet TAKE tablet TAKE tablet ty 1 TABLET BY 1 TABLET BY TAKE 1 Hospita MOUTH EVERY MOUTH EVERY TABLET BY l 8 HOURS 8 HOURS MOUTH Clinics EVERY 8 HOURS ondansetron ondansetron No ondansetro [place] 4 mg 4 mg n 4 mg [facility] disintegrat disintegrat disintegra ty ing tablet ing tablet ting [facility] tablet l [facility] Xifaxan 550 Xifaxan 550 No 1 BID Xifaxan [place] mg tablet mg tablet 550 mg Com ricci Take 1 Take 1 tablet ty tablet tablet Take 1 Hospita twice a day twice a day tablet l by oral by oral twice a Clinic s route. route. day by oral route. acyclovir acyclovir No acyclovir [place] 400 mg 400 mg 400 mg [facility] [...] by oral route. metronidazo metronidazo No metronidaz [place] le 500 mg le 500 mg ole 500 mg [facility] tablet TAKE tablet TAKE tablet ty 1 TABLET BY 1 TABLET BY TAKE 1 Hospita MOUTH EVERY MOUTH EVERY TABLET BY l 8 HOURS 8 HOURS MOUTH Clinics EVERY 8 HOURS ondansetron ondansetron No ondansetro [place] 4 mg 4 mg n 4 mg [facility] disintegrat disintegrat disintegra ty ing tablet ing tablet ting [facility] tablet l Clinics pantoprazol pantoprazol No pantoprazo [place] e 40 mg e 40 mg le 40 mg [facility] ni tablet,hodan tablet,hodan tablet,del ty yed release yed release ayed [facility] release l Clinics peg peg No peg [place] 3350-electr 3350-electr 3350-elect [facility] olytes 236 olytes 236 rolytes ty gram-22.74 gram-22.74 236 [facility] gram-6.74 gram-6.74 gram-22.74 l gram-5.86 gram-5.86 gram-6.74 Clinics gram gram gram-5.86 solution solution gram MIX AND MIX AND solution DRINK DRINK MIX AND DIRECTED DIRECTED DRINK DIRECTED sucralfate sucralfate No 1 QID sucralfate [place] 1 gram 1 gram 1 gram [facility] tablet Take tablet Take tablet ty 1 tablet 4 1 tablet 4 Take 1 [facility] times a day times a day tablet 4 l by oral by oral times a Clinic s route. route. day by oral route. venlafaxine venlafaxine No venlafaxin [place] ER 75 mg ER 75 mg e ER 75 mg [facility] capsule,ext capsule,ext capsule,ex ty ended ended tended Hospita release 24 release 24 release 24 l hr hr hr Clinics Xifaxan 550 Xifaxan 550 No Xifaxan [place] mg tablet mg tablet 550 mg Com ricci Take 1 Take 1 tablet ty tablet tablet Take 1 Hospita twice a day twice a day tablet l by oral by oral twice a Clinic s route. route. day by oral route. dexamethaso dexamethaso No 10mg dexamethas [place] ne sodium ne sodium one sodium [facility] phosphate phosphate phosphate ty 10 mg/mL 10 mg/mL 10 mg/mL [facility] injection injection injection l solution solution solution Cli nics Take 10 mg Take 10 mg Take 10 mg by by by injection injection injection route. route. route. dicyclomine dicyclomine No 1 TID dicyclomin [place] 20 mg 20 mg e 20 mg [facility] tablet Take tablet Take tablet ty 1 tablet 3 1 tablet 3 Take 1 [facility] times a day times a day tablet 3 l by oral by oral times a Clinic s route as route as day by needed. needed. oral route as needed. gabapentin gabapentin No 1capsul BID gabapentin [place] 300 mg 300 mg e(s) 300 mg [facility] capsule capsule capsule ty Take 1 Take 1 Take 1 Hospita capsule capsule capsule l twice a day twice a day twice a Clinics by oral by oral day by route. route. oral route. montelukast montelukast No 1 Q1D montelukas [place] 10 mg 10 mg t 10 mg [facility] tablet Take tablet Take tablet ty 1 tablet 1 tablet Take 1 Hospi ta every day every day tablet l by oral by oral every day Clin ics route. route. by oral route. acyclovir 5 acyclovir 5 No acyclovir [place] % topical % topical 5 % Commu [...] Bactrim DS No 1 Q12H Bactrim DS [place] 800 mg-160 800 mg-160 800 mg-160 [facility] mg tablet mg tablet mg tablet ty Take 1 Take 1 Take 1 Hospita tablet tablet tablet l every 12 every 12 every 12 Cli nics hours by hours by hours by oral route oral route oral route for 10 for 10 for 10 days. days. days. diclofenac diclofenac No diclofenac [place] 1 % topical 1 % topical 1 [...] route. valacyclovi valacyclovi No 1 BID valacyclov [place] r 1 gram r 1 gram ir 1 gram [facility] tablet Take tablet Take tablet ty 1 tablet 1 tablet Take 1 Hospi ta twice a day twice a day tablet l by oral by oral twice a Clinic s route. route. day by oral route. acyclovir 5 acyclovir 5 No acyclovir [place] % topical % topical 5 % [facility] ni ointment ointment topical ty APPLY TO APPLY TO ointment [facility] THE THE APPLY TO l AFFECTED AFFECTED THE Clinics AREA EVERY AREA EVERY AFFECTED 2 HOURS 2 HOURS AREA EVERY DURING DURING 2 HOURS AWAKE HOURS AWAKE HOURS DURING FOR 4 DAYS FOR 4 DAYS AWAKE HOURS FOR 4 DAYS diclofenac diclofenac No diclofenac [place] 1 % topical 1 % topical 1 % [facility] gel APPLY 2 gel APPLY 2 topical ty GRAMS GRAMS gel APPLY Hospita TOPICALLY TOPICALLY 2 GRAMS l TO THE TO THE TOPICALLY Clinic s AFFECTED AFFECTED TO THE AREA FOUR AREA FOUR AFFECTED TIMES DAILY TIMES DAILY AREA FOUR TIMES DAILY phenazopyri phenazopyri No phenazopyr [place] dine 200 mg dine 200 mg idine 200 [facility] tablet TAKE tablet TAKE mg tablet ty 1 TABLET BY 1 TABLET BY TAKE 1 Hospita MOUTH EVERY MOUTH EVERY TABLET BY l 8 HOURS 8 HOURS MOUTH Clinics EVERY 8 HOURS sulfamethox sulfamethox No sulfametho [place] azole 800 azole 800 xazole 800 [facility] mg-trimetho mg-trimetho mg-trimeth ty prim 160 mg prim 160 mg oprim 160 Hospita tablet TAKE tablet TAKE mg tablet l 1 TABLET BY 1 TABLET BY TAKE 1 Clinics MOUTH EVERY MOUTH EVERY TABLET BY 12 HOURS 12 HOURS MOUTH FOR 10 DAYS FOR 10 DAYS EVERY 12 HOURS FOR 10 DAYS valacyclovi valacyclovi No valacyclov [place] r 1 gram r 1 gram ir 1 gram [facility] tablet TAKE tablet TAKE tablet ty 1 TABLET BY 1 TABLET BY TAKE 1 Hospita MOUTH TWICE MOUTH TWICE TABLET BY l DAILY DAILY MOUTH Clinics TWICE DAILY acyclovir 5 acyclovir 5 No acyclovir [place] % topical % topical 5 % Commu ni ointment ointment topical ty APPLY TO APPLY TO ointment [facility] THE THE APPLY TO l AFFECTED AFFECTED THE Clinics AREA EVERY AREA EVERY AFFECTED 2 HOURS 2 HOURS AREA EVERY DURING DURING 2 HOURS AWAKE HOURS AWAKE HOURS DURING FOR 4 DAYS FOR 4 DAYS AWAKE HOURS FOR 4 DAYS cefuroxime cefuroxime No cefuroxime [place] axetil 500 axetil 500 axetil 500 [facility] mg tablet mg tablet mg tablet ty TAKE 1 TAKE 1 TAKE 1 Hospita TABLET BY TABLET BY TABLET BY l MOUTH EVERY MOUTH EVERY MOUTH Clinics 12 HOURS 12 HOURS EVERY 12 FOR 7 DAYS FOR 7 DAYS HOURS FOR 7 DAYS diclofenac diclofenac No diclofenac [place] 1 % topical 1 % topical 1 % [facility] gel APPLY 2 gel APPLY 2 topical ty GRAMS GRAMS gel APPLY Hospita TOPICALLY TOPICALLY 2 GRAMS l TO THE TO THE TOPICALLY Clinic s AFFECTED AFFECTED TO THE AREA FOUR AREA FOUR AFFECTED TIMES DAILY TIMES DAILY AREA FOUR TIMES DAILY dicyclomine dicyclomine No dicyclomin [place] 20 mg 20 mg e 20 mg [facility] tablet TAKE tablet TAKE tablet ty 1 TABLET BY 1 TABLET BY TAKE 1 Hospita MOUTH 4 MOUTH 4 TABLET BY l TIMES A DAY TIMES A DAY MOUTH 4 Clinics NEEDED NEEDED TIMES A DAY NEEDED phenazopyri phenazopyri No phenazopyr [place] dine 200 mg dine 200 mg idine 200 [facility] tablet TAKE tablet TAKE mg tablet ty 1 TABLET BY 1 TABLET BY TAKE 1 Hospita MOUTH EVERY MOUTH EVERY TABLET BY l 8 HOURS FOR 8 HOURS FOR MOUTH Clinics 2 DAYS 2 DAYS EVERY 8 HOURS FOR 2 DAYS sulfamethox sulfamethox No sulfametho [place] azole 800 azole 800 xazole 800 [facility] mg-trimetho mg-trimetho mg-trimeth ty prim 160 mg prim 160 mg oprim 160 Hospita tablet TAKE tablet TAKE mg tablet l 1 TABLET BY 1 TABLET BY TAKE 1 Clinics MOUTH EVERY MOUTH EVERY TABLET BY 12 HOURS 12 HOURS MOUTH FOR 10 DAYS FOR 10 DAYS EVERY 12 HOURS FOR 10 DAYS valacyclovi valacyclovi No valacyclov [place] r 1 gram r 1 gram ir 1 gram [facility] tablet TAKE tablet TAKE tablet ty 1 TABLET BY 1 TABLET BY TAKE 1 Hospita MOUTH TWICE MOUTH TWICE TABLET BY l DAILY DAILY MOUTH Clinics TWICE DAILY acyclovir 5 acyclovir 5 No acyclovir [place] % topical % topical 5 % [facility] ni ointment ointment topical ty APPLY TO APPLY TO ointment [facility] THE THE APPLY TO l AFFECTED AFFECTED THE Clinics AREA EVERY AREA EVERY AFFECTED 2 HOURS 2 HOURS AREA EVERY DURING DURING 2 HOURS AWAKE HOURS AWAKE HOURS DURING FOR 4 DAYS FOR 4 DAYS AWAKE HOURS FOR 4 DAYS amoxicillin amoxicillin No amoxicilli [place] 500 500 n 500 [facility] mg-potassiu mg-potassiu [...] FOR 7 DAYS amoxicillin amoxicillin No amoxicilli [place] [phone] n 875 [facility] mg-potassiu mg-potassiu mg-potassi ty m m Hospita clavulanate clavulanate clavulanat l 125 mg 125 mg e 125 mg Clinics tablet TAKE tablet TAKE tablet 1 TABLET BY 1 TABLET BY TAKE 1 MOUTH TWICE MOUTH TWICE TABLET BY DAILY FOR 7 DAILY FOR 7 MOUTH DAYS DAYS TWICE DAILY FOR 7 DAYS cefuroxime cefuroxime No cefuroxime [place] axetil 500 axetil 500 axetil 500 [facility] mg tablet mg tablet mg tablet ty TAKE 1 TAKE 1 TAKE 1 Hospita TABLET BY TABLET BY TABLET BY l MOUTH EVERY MOUTH EVERY MOUTH Clinics 12 HOURS 12 HOURS EVERY 12 FOR 7 DAYS FOR 7 DAYS HOURS FOR 7 DAYS diclofenac diclofenac No diclofenac [place] 1 % topical 1 % topical 1 % [facility] gel APPLY 2 gel APPLY 2 topical ty GRAMS GRAMS gel APPLY Hospita TOPICALLY TOPICALLY 2 GRAMS l TO THE TO THE TOPICALLY Clinic s AFFECTED AFFECTED TO THE AREA FOUR AREA FOUR AFFECTED TIMES DAILY TIMES DAILY AREA FOUR TIMES DAILY dicyclomine dicyclomine No dicyclomin [place] 20 mg 20 mg e 20 mg [facility] tablet TAKE tablet TAKE tablet ty 1 TABLET BY 1 TABLET BY TAKE 1 Hospita MOUTH 4 MOUTH 4 TABLET BY l TIMES A DAY TIMES A DAY MOUTH 4 Clinics NEEDED NEEDED TIMES A DAY NEEDED estradiol estradiol No estradiol [place] 0.01% (0.1 0.01% (0.1 0.01% (0.1 [facility] mg/gram) mg/gram) mg/gram) ty vaginal vaginal vaginal Hospit a cream cream cream l INSERT 1 INSERT 1 INSERT 1 Cli nics GRAM INTO GRAM INTO GRAM INTO VAGINA VAGINA VAGINA TWICE A TWICE A TWICE A WEEK AT WEEK AT WEEK AT NIGHT. NIGHT. NIGHT. fluconazole fluconazole No fluconazol [place] 150 mg 150 mg e 150 mg [facility] tablet TAKE tablet TAKE tablet ty 1 TABLET BY 1 TABLET BY TAKE 1 Hospita MOUTH EVERY MOUTH EVERY TABLET BY l 72 HOURS 72 HOURS MOUTH Clinic s EVERY 72 HOURS metoprolol metoprolol No metoprolol [place] succinate succinate succinate [facility] ER 25 mg ER 25 mg ER 25 mg ty tablet,exte tablet,exte tablet,ext Hospita nded nded ended l release 24 release 24 release 24 Clinics hr TAKE 1 hr TAKE 1 hr TAKE 1 TABLET BY TABLET BY TABLET BY MOUTH EVERY MOUTH EVERY MOUTH DAY DAY EVERY DAY nitrofurant nitrofurant No nitrofuran [place] oin oin toin [facility] monohydrate monohydrate monohydrat ty /macrocryst /macrocryst e/macrocry Hospita als 100 mg als 100 mg stals 100 l capsule capsule mg capsule Cli nics oxybutynin oxybutynin No oxybutynin [place] chloride ER chloride ER chloride [facility] 5 mg 5 mg ER 5 mg ty tablet,exte tablet,exte tablet,ext Hospita nded nded ended l release 24 release 24 release 24 Clinics hr TAKE 1 hr TAKE 1 hr TAKE 1 TABLET BY TABLET BY TABLET BY MOUTH EVERY MOUTH EVERY MOUTH DAY DAY EVERY DAY phenazopyri phenazopyri No phenazopyr [place] dine 200 mg dine 200 mg idine 200 [facility] tablet TAKE tablet TAKE mg tablet ty 1 TABLET BY 1 TABLET BY TAKE 1 Hospita MOUTH EVERY MOUTH EVERY TABLET BY l 8 HOURS FOR 8 HOURS FOR MOUTH Clinics 2 DAYS 2 DAYS EVERY 8 HOURS FOR 2 DAYS sulfamethox sulfamethox No sulfametho [place] azole 800 azole 800 xazole 800 Commun[facility] [...] Suprax 400 No 1capsul Q1D Suprax 400 [place] mg capsule mg capsule e(s) mg capsule [facility] Take 1 Take 1 Take 1 ty capsule capsule capsule Hospit a every day every day every day l by oral by oral by oral Clinic s route for 7 route for 7 route for days. days. 7 days. valacyclovi valacyclovi No valacyclov [place] r 1 gram r 1 gram ir 1 gram [facility] tablet TAKE tablet TAKE tablet ty 1 TABLET BY 1 TABLET BY TAKE 1 Hospita MOUTH TWICE MOUTH TWICE TABLET BY l DAILY DAILY MOUTH Clinics TWICE DAILY acyclovir 5 acyclovir 5 No acyclovir [place] % topical % topical 5 % [facility] ni ointment ointment topical ty APPLY TO APPLY TO ointment [facility] THE THE APPLY TO l AFFECTED AFFECTED THE Clinics AREA EVERY AREA EVERY AFFECTED 2 HOURS 2 HOURS AREA EVERY DURING DURING 2 HOURS AWAKE HOURS AWAKE HOURS DURING FOR 4 DAYS FOR 4 DAYS AWAKE HOURS FOR 4 DAYS estradiol estradiol No estradiol [place] 0.01% (0.1 0.01% (0.1 0.01% (0.1 [facility] mg/gram) mg/gram) mg/gram) ty vaginal vaginal vaginal Hospit a cream cream cream l INSERT 1 INSERT 1 INSERT 1 Cli nics GRAM INTO GRAM INTO GRAM INTO VAGINA VAGINA VAGINA TWICE A TWICE A TWICE A WEEK AT WEEK AT WEEK AT NIGHT. NIGHT. NIGHT. metoprolol metoprolol No metoprolol [place] succinate succinate succinate [facility] ER 25 mg [...] CR 25 No 1 Q1D Paxil CR [place] mg mg 25 mg [facility] tablet,exte tablet,exte tablet,ext ty nded nded ended Hospita release release release l Take 1 Take 1 Take 1 Clinics tablet tablet tablet every day every day every day by oral by oral by oral route. route. route. Suprax 400 Suprax 400 No 1capsul Q1D Suprax 400 [place] mg capsule mg capsule e(s) mg capsule [...] HOURS 5 days valacyclovi valacyclovi No valacyclov [place] r 1 gram r 1 gram ir 1 gram [facility] tablet TAKE tablet TAKE tablet ty 1 TABLET BY 1 TABLET BY TAKE 1 Hospita MOUTH TWICE MOUTH TWICE TABLET BY l DAILY DAILY MOUTH Clinics TWICE DAILY Zithromax Zithromax No Zithromax [place] Z-Andrew 250 Z-Andrew 250 Z-Andrew 250 Communi [...] DAYS acyclovir 5 acyclovir 5 No acyclovir [place] % topical % topical 5 % [facility] ni ointment ointment topical ty APPLY TO APPLY TO ointment [facility] THE THE APPLY TO l AFFECTED AFFECTED THE Clinics AREA EVERY AREA EVERY AFFECTED 2 HOURS 2 HOURS AREA EVERY DURING DURING 2 HOURS AWAKE HOURS AWAKE HOURS DURING FOR 4 DAYS FOR 4 DAYS AWAKE HOURS FOR 4 DAYS estradiol estradiol No estradiol [place] 0.01% (0.1 0.01% (0.1 0.01% (0.1 [facility] mg/gram) mg/gram) mg/gram) ty vaginal vaginal vaginal Hospit a cream cream cream l INSERT 1 INSERT 1 INSERT 1 Cli nics GRAM INTO GRAM INTO GRAM INTO VAGINA VAGINA VAGINA TWICE A TWICE A TWICE A WEEK AT WEEK AT WEEK AT NIGHT. NIGHT. NIGHT. fluconazole fluconazole No fluconazol [place] 150 mg 150 mg e 150 mg [facility] tablet tablet tablet ty Hospita l Clinics hydroxyzine hydroxyzine No 1 TID hydroxyzin [place] HCl 25 mg HCl 25 mg e [...] Kenalog 40 No 60mg Q1D Kenalog 40 [place] mg/mL mg/mL mg/mL [facility] suspension suspension suspension ty for for for Hospita injection injection injection l Take 60 mg Take 60 mg Take 60 mg Clinics every day every day every day by by by injection injection injection route. route. route. metoprolol metoprolol No metoprolol [place] succinate succinate succinate [facility] ER 25 mg ER 25 mg ER 25 mg ty tablet,exte tablet,exte tablet,ext [facility]ospita nded nded ended l release 24 release 24 release 24 Clinics hr TAKE 1 hr TAKE 1 hr TAKE 1 TABLET BY TABLET BY TABLET BY MOUTH EVERY MOUTH EVERY MOUTH DAY DAY EVERY DAY omeprazole omeprazole No omeprazole [place] 20 mg 20 mg 20 mg [facility] capsule,del capsule,del capsule,de ty ayed ayed layed [facility]ospita release release release l TAKE 1 TAKE 1 TAKE 1 Clinics CAPSULE BY CAPSULE BY CAPSULE BY MOUTH DAILY MOUTH DAILY MOUTH DAILY paroxetine paroxetine No paroxetine [place] ER 25 mg ER 25 mg ER 25 mg Com ricci tablet,exte tablet,exte tablet,ext ty nded nded ended Hospita release 24 release 24 release 24 l hr TAKE 1 hr TAKE 1 hr TAKE 1 Clinics TABLET BY TABLET BY TABLET BY MOUTH EVERY MOUTH EVERY MOUTH DAY DAY EVERY DAY tobramycin tobramycin No tobramycin [place] 0.3 0.3 0.3 [facility] %-dexametha %-dexametha %-dexameth [...] FOR 5 DAYS triamcinolo triamcinolo No triamcinol [place] ne ne one [facility] acetonide acetonide acetonide [...] days days days trimethopri trimethopri No trimethopr [place] m 100 mg m 100 mg im 100 mg [facility] tablet TAKE tablet TAKE tablet ty 1 TABLET BY 1 TABLET BY TAKE 1 Hospita MOUTH EVERY MOUTH EVERY TABLET BY l DAY DAY MOUTH Clinics EVERY DAY valacyclovi valacyclovi No valacyclov [place] r 1 gram r 1 gram ir 1 gram [facility] tablet TAKE tablet TAKE tablet ty 1 TABLET BY 1 TABLET BY TAKE 1 Hospita MOUTH TWICE MOUTH TWICE TABLET BY l DAILY prn DAILY prn MOUTH Clin ics TWICE DAILY prn acyclovir 5 acyclovir 5 No acyclovir [place] % topical % topical 5 % Commu [...] DAYS Augmentin Augmentin No 1 Q12H Augmentin [place] 500 mg-125 500 mg-125 500 mg-125 [facility] mg tablet mg tablet mg tablet ty Take 1 Take 1 Take 1 Hospita tablet tablet tablet l every 12 every 12 every 12 Cli nics hours by hours by hours by oral route oral route oral route for 10 for 10 for 10 days. days. days. cephalexin cephalexin No cephalexin [place] 500 mg 500 mg 500 mg [facility] capsule capsule capsule ty TAKE 1 TAKE 1 TAKE 1 Hospita CAPSULE BY CAPSULE BY CAPSULE BY l MOUTH TWICE MOUTH TWICE MOUTH Clinics DAILY DAILY TWICE DAILY estradiol estradiol No estradiol [place] 0.01% (0.1 0.01% (0.1 0.01% (0.1 [facility] mg/gram) mg/gram) mg/gram) ty vaginal vaginal vaginal Hospit a cream cream cream l INSERT 1 INSERT 1 INSERT 1 Cli nics GRAM INTO GRAM INTO GRAM INTO VAGINA VAGINA VAGINA TWICE A TWICE A TWICE A WEEK AT WEEK AT WEEK AT NIGHT. NIGHT. NIGHT. fluconazole fluconazole No fluconazol [place] 150 mg 150 mg e 150 mg [facility] tablet tablet tablet ty Hospita l Clinics hydroxyzine hydroxyzine No hydroxyzin [place] HCl 25 mg HCl 25 mg e [...] Kenalog 40 No 60mg Q1D Kenalog 40 [place] mg/mL mg/mL mg/mL [facility] suspension suspension suspension ty for for for Hospita injection injection injection l Take 60 mg Take 60 mg Take 60 mg Clinics every day every day every day by by by injection injection injection route. route. route. metoprolol metoprolol No metoprolol [place] succinate succinate succinate [facility] ER 25 mg ER 25 mg ER 25 mg ty tablet,exte tablet,exte tablet,ext Hospita nded nded ended l release 24 release 24 release 24 Clinics hr TAKE 1 hr TAKE 1 hr TAKE 1 TABLET BY TABLET BY TABLET BY MOUTH EVERY MOUTH EVERY MOUTH DAY DAY EVERY DAY metronidazo metronidazo No 1 Q8H metronidaz [place] le 500 mg le 500 mg ole 500 mg [facility] tablet Take tablet Take tablet ty 1 tablet 1 tablet Take 1 Hospi ta every 8 every 8 tablet l hours by hours by every 8 Clin ics oral route oral route hours by for 7 days. for 7 days. oral route for 7 days. omeprazole omeprazole No omeprazole [place] 20 mg 20 mg 20 mg [facility] capsule,del capsule,del capsule,de ty ayed ayed layed [facility]ospita release release release l TAKE 1 TAKE 1 TAKE 1 Clinics CAPSULE BY CAPSULE BY CAPSULE BY MOUTH DAILY MOUTH DAILY MOUTH DAILY ondansetron ondansetron No 1 Q6H ondansetro [place] 4 mg 4 mg n 4 mg [...] for 6 days. paroxetine paroxetine No paroxetine [place] ER 25 mg ER 25 mg ER 25 mg Com ricci tablet,exte tablet,exte tablet,ext ty nded nded ended Hospita release 24 release 24 release 24 l hr TAKE 1 hr TAKE 1 hr TAKE 1 Clinics TABLET BY TABLET BY TABLET BY MOUTH EVERY MOUTH EVERY MOUTH DAY DAY EVERY DAY tobramycin tobramycin No tobramycin [facility] 0.3 0.3 0.3 [facility] %-dexametha %-dexametha %-dexameth [...] FOR 5 DAYS triamcinolo triamcinolo No triamcinol [place] ne ne one [facility] acetonide acetonide acetonide ty 0.1 % 0.1 % 0.1 % Hospita topical topical topical l cream APPLY cream APPLY cream Clinics THIN LAYER THIN LAYER APPLY THIN TOPICALLY TOPICALLY LAYER TO THE TO THE TOPICALLY AFFECTED AFFECTED TO THE AREA TWICE AREA TWICE AFFECTED DAILY FOR 7 DAILY FOR 7 AREA TWICE DAYS DAYS DAILY FOR 7 DAYS Vital Signs Vital Name Observation Time Observation Value Comments Source BP Diastolic 2022-09-11 00:00:00 71 mm[Hg] [facility] s Height 2022-09-11 00:00:00 63 [in_i] [facility] s BMI (Body Mass 2022-09-11 00:00:00 35.6 kg/m2 [facility] BP Systolic 2022-09-11 00:00:00 124 mm[Hg] [facility] s Body Weight 2022-09-11 00:00:00 3216 [oz_av] [facility] s BP Diastolic 2022-09-01 00:00:00 84 mm[Hg] [facility] s Height 2022-09-01 00:00:00 63 [in_i] [facility] s BMI (Body Mass 2022-09-01 00:00:00 35.5 kg/m2 [facility]) [facility] s BP Systolic 2022-09-01 00:00:00 152 mm[Hg] [facility] s Body Weight 2022-09-01 00:00:00 3203.2 [oz_av] [facility] s BP Diastolic 2022-08-12 00:00:00 88 mm[Hg] [facility] s Height 2022-08-12 00:00:00 63 [in_i] [facility] s BMI (Body Mass 2022-08-12 00:00:00 36.1 kg/m2 [facility]) [facility] s BP Systolic 2022-08-12 00:00:00 122 mm[Hg] [facility] s Body Weight 2022-08-12 00:00:00 3260.8 [oz_av] [facility] s BP Diastolic 2022-07-18 00:00:00 81 mm[Hg] [facility] s Height 2022-07-18 00:00:00 63 [in_i] [facility] s BMI (Body Mass 2022-07-18 00:00:00 35.5 kg/m2 [facility]) [facility] s BP Systolic 2022-07-18 00:00:00 143 mm[Hg] [facility] s Body Weight 2022-07-18 00:00:00 3206.4 [oz_av] [facility] s BP Diastolic 2022-07-08 00:00:00 79 mm[Hg] [facility] s Height 2022-07-08 00:00:00 63 [in_i] [facility] s BMI (Body Mass 2022-07-08 00:00:00 36.2 kg/m2 [facility] s BP Systolic 2022-07-08 00:00:00 119 mm[Hg] [facility] s Body Weight 2022-07-08 00:00:00 3267.2 [oz_av] [facility] s BP Diastolic 2022-03-27 00:00:00 85 mm[Hg] [facility] s Height 2022-03-27 00:00:00 63 [in_i] [facility] s BMI (Body Mass 2022-03-27 00:00:00 34.8 kg/m2 [facility]) [facility] s BP Systolic 2022-03-27 00:00:00 153 mm[Hg] [facility] s Body Weight 2022-03-27 00:00:00 3139.2 [oz_av] [facility] s BP Diastolic 2022-02-24 00:00:00 77 mm[Hg] [facility] s Height 2022-02-24 00:00:00 63 [in_i] [facility] s BMI (Body Mass 2022-02-24 00:00:00 34.8 kg/m2 [facility]) [facility] s BP Systolic 2022-02-24 00:00:00 143 mm[Hg] [facility] s Body Weight 2022-02-24 00:00:00 3139.2 [oz_av] [facility] s BP Diastolic 2022-01-23 00:00:00 80 mm[Hg] [facility] s Height 2022-01-23 00:00:00 63 [in_i] [facility] s BMI (Body Mass 2022-01-23 00:00:00 34.2 kg/m2 [facility] s BP Systolic 2022-01-23 00:00:00 145 mm[Hg] [facility] s Body Weight 2022-01-23 00:00:00 3088 [oz_av] [facility] s BP Diastolic 2021-12-18 00:00:00 74 mm[Hg] [facility] s Height 2021-12-18 00:00:00 63 [in_i] [facility] s BMI (Body Mass 2021-12-18 00:00:00 34.7 kg/m2 [facility]) [facility] s BP Systolic 2021-12-18 00:00:00 139 mm[Hg] [facility] s Body Weight 2021-12-18 00:00:00 3136 [oz_av] [facility] s BP Diastolic 2021-11-08 00:00:00 71 mm[Hg] [facility] s Height 2021-11-08 00:00:00 63 [in_i] [facility] s BMI (Body Mass 2021-11-08 00:00:00 35.3 kg/m2 [facility] s BP Systolic 2021-11-08 00:00:00 140 mm[Hg] [facility] s Body Weight 2021-11-08 00:00:00 3187.2 [oz_av] [facility] s BP Diastolic 2021-10-21 00:00:00 74 mm[Hg] [facility] s Height 2021-10-21 00:00:00 63 [in_i] [facility] s BMI (Body Mass 2021-10-21 00:00:00 35.3 kg/m2 [facility]) [facility] BP Systolic 2021-10-21 00:00:00 147 mm[Hg] [facility] Body Weight 2021-10-21 00:00:00 3184 [oz_av] [facility] s BP Diastolic 2021-09-20 00:00:00 71 mm[Hg] [facility] s Height 2021-09-20 00:00:00 63 [in_i] [facility] s BMI (Body Mass 2021-09-20 00:00:00 34.7 kg/m2 [facility]) [facility] BP Systolic 2021-09-20 00:00:00 128 mm[Hg] [facility] s Body Weight 2021-09-20 00:00:00 3137 [oz_av] [facility] s BP Diastolic 2021-07-31 00:00:00 90 mm[Hg] [facility] s Height 2021-07-31 00:00:00 63 [in_i] [facility] s BMI (Body Mass 2021-07-31 00:00:00 34.9 kg/m2 [facility]) [facility] BP Systolic 2021-07-31 00:00:00 123 mm[Hg] [facility] s Body Weight 2021-07-31 00:00:00 3153.6 [oz_av] [facility] s BP Diastolic 2021-07-23 00:00:00 85 mm[Hg] [facility] s Height 2021-07-23 00:00:00 63 [in_i] [facility] s BMI (Body Mass 2021-07-23 00:00:00 35.6 kg/m2 [facility]) [facility] BP Systolic 2021-07-23 00:00:00 151 mm[Hg] [facility] Body Weight 2021-07-23 00:00:00 3216 [oz_av] [facility] s BP Diastolic 2021-06-24 00:00:00 81 mm[Hg] [facility] s Height 2021-06-24 00:00:00 63 [in_i] [facility] s BMI (Body Mass 2021-06-24 00:00:00 36.8 kg/m2 [facility] BP Systolic 2021-06-24 00:00:00 138 mm[Hg] [facility] Body Weight 2021-06-24 00:00:00 3328 [oz_av] [facility] s BP Diastolic 2021-05-30 00:00:00 84 mm[Hg] [facility] Height 2021-05-30 00:00:00 63 [in_i] [facility] s BMI (Body Mass 2021-05-30 00:00:00 36.5 kg/m2 [facility]) [facility] BP Systolic 2021-05-30 00:00:00 144 mm[Hg] [facility] Body Weight 2021-05-30 00:00:00 3296 [oz_av] [facility] s BP Diastolic 2021-04-09 00:00:00 68 mm[Hg] [facility] Height 2021-04-09 00:00:00 63 [in_i] [facility] s BMI (Body Mass 2021-04-09 00:00:00 34.4 kg/m2 [facility] BP Systolic 2021-04-09 00:00:00 143 mm[Hg] [facility] Body Weight 2021-04-09 00:00:00 3107.2 [oz_av] [facility] s BP Diastolic 2021-03-14 00:00:00 80 mm[Hg] [facility] Height 2021-03-14 00:00:00 63 [in_i] [facility] s BMI (Body Mass 2021-03-14 00:00:00 34.9 kg/m2 [facility] BP Systolic 2021-03-14 00:00:00 145 mm[Hg] [facility] Body Weight 2021-03-14 00:00:00 3155.2 [oz_av] [facility] BP Diastolic 2021-03-04 00:00:00 76 mm[Hg] [facility] Height 2021-03-04 00:00:00 63 [in_i] [facility] s BMI (Body Mass 2021-03-04 00:00:00 36.2 kg/m2 [facility] BP Systolic 2021-03-04 00:00:00 139 mm[Hg] [facility] Body Weight 2021-03-04 00:00:00 3270.4 [oz_av] [facility] BP Diastolic 2021-02-25 00:00:00 71 mm[Hg] [facility] Height 2021-02-25 00:00:00 63 [in_i] [facility] s BMI (Body Mass 2021-02-25 00:00:00 36.5 kg/m2 [facility]) [facility] BP Systolic 2021-02-25 00:00:00 131 mm[Hg] [facility] Body Weight 2021-02-25 00:00:00 3292.8 [oz_av] [facility] s BP Diastolic 2021-01-14 00:00:00 85 mm[Hg] [facility] Height 2021-01-14 00:00:00 63 [in_i] [facility] s BMI (Body Mass 2021-01-14 00:00:00 35.3 kg/m2 [facility] BP Systolic 2021-01-14 00:00:00 137 mm[Hg] [facility] Body Weight 2021-01-14 00:00:00 3184 [oz_av] [facility] s BP Diastolic 2020-10-16 00:00:00 61 mm[Hg] [facility] Height 2020-10-16 00:00:00 63 [in_i] [facility] s BMI (Body Mass 2020-10-16 00:00:00 34.4 kg/m2 [facility] BP Systolic 2020-10-16 00:00:00 120 mm[Hg] [facility] Body Weight 2020-10-16 00:00:00 3104 [oz_av] [facility] s BP Diastolic 2020-09-28 00:00:00 86 mm[Hg] [facility] Height 2020-09-28 00:00:00 63 [in_i] [facility] s BMI (Body Mass 2020-09-28 00:00:00 33.9 kg/m2 [facility] BP Systolic 2020-09-28 00:00:00 129 mm[Hg] [facility] Body Weight 2020-09-28 00:00:00 3062.4 [oz_av] [facility] BP Diastolic 2020-08-20 00:00:00 79 mm[Hg] [facility] Height 2020-08-20 00:00:00 63 [in_i] [facility] BMI (Body Mass 2020-08-20 00:00:00 33 kg/m2 [facility] BP Systolic 2020-08-20 00:00:00 142 mm[Hg] [facility] Body Weight 2020-08-20 00:00:00 2979.2 [oz_av] [facility] BP Diastolic 2020-08-13 00:00:00 93 mm[Hg] [facility] Height 2020-08-13 00:00:00 63 [in_i] [facility] BMI (Body Mass 2020-08-13 00:00:00 33.2 kg/m2 [facility] BP Systolic 2020-08-13 00:00:00 149 mm[Hg] [facility] Body Weight 2020-08-13 00:00:00 3001.6 [oz_av] [facility] BP Diastolic 2020-07-26 00:00:00 74 mm[Hg] [facility] s Height 2020-07-26 00:00:00 63 [in_i] [facility] s BMI (Body Mass 2020-07-26 00:00:00 32.7 kg/m2 [facility] BP Systolic 2020-07-26 00:00:00 133 mm[Hg] [facility] Body Weight 2020-07-26 00:00:00 2956.8 [oz_av] [facility] s Systolic (mm Hg) 2022-09-04 19:00:00 [facility] Diastolic (mm Hg) 2022-09-04 19:00:00 [facility] [place] Heart Rate 2022-09-04 19:00:00 [facility] [place] Temperature Oral (F) 2022-09-04 19:00:00 98 F [facility] Height 2022-09-04 15:52:00 5 [ft_i] [facility] [place] BMI Calculated 2022-09-04 15:52:00 [facility] [place] Weight 2022-09-04 15:52:00 [facility] Heart Rate 2021-10-14 16:25:00 [facility] Respitory Rate 2021-10-14 16:25:00 [facility] Systolic (mm Hg) 2021-10-14 16:25:00 [facility] [place] Diastolic (mm Hg) 2021-10-14 16:25:00 [facility] Heart Rate 2021-10-14 16:08:00 [facility] Respitory Rate 2021-10-14 16:08:00 [facility] [place] Systolic (mm Hg) 2021-10-14 16:08:00 [facility] Diastolic (mm Hg) 2021-10-14 16:08:00 [facility] Heart Rate 2021-10-14 15:53:00 [facility] [place] Respitory Rate 2021-10-14 15:53:00 [facility] Systolic (mm Hg) 2021-10-14 15:53:00 [facility] Diastolic (mm Hg) 2021-10-14 15:53:00 [facility] Height 2021-10-14 13:07:00 160.02 cm [facility] Weight 2021-10-14 13:07:00 [facility] [place] BMI Calculated 2021-10-14 13:07:00 [facility] Heart Rate 2021-04-05 16:11:00 [facility] [place] Systolic (mm Hg) 2021-04-05 16:11:00 [facility] [place] Diastolic (mm Hg) 2021-04-05 16:11:00 [facility] [place] Height 2021-04-05 16:11:00 160.02 cm [facility] [place] Weight 2021-04-05 16:11:00 [facility] [place] BMI Calculated 2021-04-05 16:11:00 [facility] [place] Systolic (mm Hg) 2020-03-09 17:28:00 [facility] Diastolic (mm Hg) 2020-03-09 17:28:00 [facility] Heart Rate 2020-03-09 17:28:00 [facility] Height 2020-03-09 17:28:00 160.02 cm [facility] Weight 2020-03-09 17:28:00 [facility] [place] BMI Calculated 2020-03-09 17:28:00 [facility] [place] Systolic (mm Hg) 2020-01-12 02:03:00 [facility] [place] Diastolic (mm Hg) 2020-01-12 02:03:00 [facility] [place] Respitory Rate 2020-01-12 02:03:00 [facility] Heart Rate 2020-01-12 02:03:00 [facility] [place] Temperature Oral (F) 2020-01-12 02:03:00 98.6 F [facility] Height 2020-01-11 22:44:00 160.02 cm [facility] BMI Calculated 2020-01-11 22:44:00 [facility] Weight 2020-01-11 22:44:00 [facility] [place] Systolic (mm Hg) 2020-01-11 22:44:00 [facility] [place] Diastolic (mm Hg) 2020-01-11 22:44:00 [facility] [place] Heart Rate 2020-01-11 22:44:00 [facility] Respitory Rate 2020-01-11 22:44:00 [facility] Temperature Oral (F) 2020-01-11 22:44:00 98.8 F [facility] Systolic (mm Hg) 2018-12-31 15:55:00 [facility] Diastolic (mm Hg) 2018-12-31 15:55:00 [facility] Heart Rate 2018-12-31 15:55:00 [facility] Temperature Oral (F) 2018-12-31 15:55:00 98.9 F [facility] [place] Height 2018-12-31 15:55:00 160.02 cm [facility] [place] Weight 2018-12-31 15:55:00 [facility] [place] BMI Calculated 2018-12-31 15:55:00 [facility] [place] BMI Calculated 2018-09-22 20:52:00 [facility] Height 2018-09-22 20:52:00 160.02 cm [facility] [place] Weight 2018-09-22 20:52:00 [facility] [place] Systolic (mm Hg) 2018-09-22 20:52:00 [facility] Diastolic (mm Hg) 2018-09-22 20:52:00 [facility] [place] Heart Rate 2018-09-22 20:52:00 [facility] Temperature Oral (F) 2018-09-22 20:52:00 98.3 F [facility] Systolic (mm Hg) 2018-09-03 13:41:00 [facility] Diastolic (mm Hg) 2018-09-03 13:41:00 [facility] Temperature Oral (F) 2018-09-03 13:41:00 98.7 F [facility] [place] Heart Rate 2018-09-03 13:41:00 [facility] [place] Height 2018-09-03 13:41:00 160.02 cm [facility] BMI Calculated 2018-09-03 13:41:00 [facility] [place] Weight 2018-09-03 13:41:00 [facility] [place] Height 2018-07-28 18:46:00 160.02 cm [facility] Weight 2018-07-28 18:46:00 [facility] BMI Calculated 2018-07-28 18:46:00 [facility] Respitory Rate 2018-07-28 18:46:00 [facility] Heart Rate 2018-07-28 18:46:00 [facility] Systolic (mm Hg) 2018-07-28 18:46:00 [facility] Diastolic (mm Hg) 2018-07-28 18:46:00 [facility] Weight 2018-06-14 18:55:00 [facility] [place] BMI Calculated 2018-06-14 18:55:00 [facility] [place] Height 2018-06-14 18:55:00 160.02 cm [facility] Systolic (mm Hg) 2018-06-14 18:55:00 [facility] Diastolic (mm Hg) 2018-06-14 18:55:00 [facility] [place] Temperature Oral (F) 2018-06-14 18:55:00 97.7 F [facility] Heart Rate 2018-06-14 18:55:00 [facility] [place] Temperature Oral (F) 2018-01-05 20:02:00 99 F [facility] Heart Rate 2018-01-05 20:02:00 [facility] Height 2018-01-05 20:02:00 160.02 cm [facility] Weight 2018-01-05 20:02:00 [facility] [place] BMI Calculated 2018-01-05 20:02:00 [facility] [place] Systolic (mm Hg) 2018-01-05 20:02:00 [facility] Diastolic (mm Hg) 2018-01-05 20:02:00 [facility] BMI Calculated 2017-10-06 19:44:00 [facility] [place] Weight 2017-10-06 19:44:00 [facility] [place] Height 2017-10-06 19:44:00 160.02 cm [facility] Heart Rate 2017-10-06 19:44:00 [facility] [place] Temperature Oral (F) 2017-10-06 19:44:00 98.4 F [facility] [place] Systolic (mm Hg) 2017-10-06 19:44:00 [facility] [place] Diastolic (mm Hg) 2017-10-06 19:44:00 [facility] [place] Temperature Oral (F) 2017-07-02 19:47:00 98.4 F [facility] BMI Calculated 2017-07-02 19:47:00 [facility] Height 2017-07-02 19:47:00 160.02 cm [facility] Systolic (mm Hg) 2017-07-02 19:47:00 [facility] [place] Diastolic (mm Hg) 2017-07-02 19:47:00 [facility] [place] Weight 2017-07-02 19:47:00 [facility] Systolic (mm Hg) 2017-06-09 18:55:00 [facility] Diastolic (mm Hg) 2017-06-09 18:55:00 [facility] [place] Height 2017-06-09 18:55:00 160.02 cm [facility] [place] Weight 2017-06-09 18:55:00 [facility] [place] BMI Calculated 2017-06-09 18:55:00 [facility] Heart Rate 2017-06-09 18:55:00 [facility] [place] Temperature Oral (F) 2017-06-09 18:55:00 98.3 F [facility] BMI Calculated 2017-03-31 19:54:00 [facility] Weight 2017-03-31 19:54:00 [facility] Height 2017-03-31 19:54:00 160.02 cm [facility] Temperature Oral (F) 2017-03-31 19:54:00 99.0 F [facility] Systolic (mm Hg) 2017-03-31 19:54:00 [facility] Diastolic (mm Hg) 2017-03-31 19:54:00 [facility] Weight 2017-02-23 19:45:00 [facility] [place] BMI Calculated 2017-02-23 19:45:00 [facility] Height 2017-02-23 19:45:00 160.02 cm [facility] [place] Systolic (mm Hg) 2017-02-23 19:45:00 [facility] Diastolic (mm Hg) 2017-02-23 19:45:00 [facility] Temperature Oral (F) 2017-02-23 19:45:00 97.9 F [facility] Systolic (mm Hg) 2016-03-12 19:37:00 [facility] [place] Diastolic (mm Hg) 2016-03-12 19:37:00 [facility] Heart Rate 2016-03-12 19:37:00 [facility] Weight 2016-03-12 19:37:00 [facility] [place] BMI Calculated 2016-03-12 19:37:00 [facility] Height 2016-03-12 19:37:00 160.02 cm [facility] [place] Respitory Rate 2016-03-12 19:37:00 [facility] Respitory Rate 2015-09-16 23:31:00 [facility] Heart Rate 2015-09-16 23:31:00 [facility] [place] Systolic (mm Hg) 2015-09-16 23:31:00 [facility] Diastolic (mm Hg) 2015-09-16 23:31:00 [facility] BMI Calculated 2015-09-16 21:59:00 [facility] Weight 2015-09-16 21:59:00 [facility] [place] Temperature Oral (F) 2015-09-16 21:59:00 98.0 F [facility] Heart Rate 2015-09-16 21:59:00 [facility] [place] Respitory Rate 2015-09-16 21:59:00 [facility] Height 2015-09-16 21:59:00 160.02 cm [facility] Systolic (mm Hg) 2015-09-16 21:59:00 [facility] [place] Diastolic (mm Hg) 2015-09-16 21:59:00 [facility] [place] BMI Calculated 2015-03-14 20:38:00 [facility] [place] Weight 2015-03-14 20:38:00 [facility] [place] Height 2015-03-14 20:38:00 160.02 cm [facility] [place] Heart Rate 2015-03-14 20:38:00 [facility] Temperature Oral (F) 2015-03-14 20:38:00 97.9 F [facility] Systolic (mm Hg) 2015-03-14 20:38:00 [facility] [place] Diastolic (mm Hg) 2015-03-14 20:38:00 [facility] [place] Systolic (mm Hg) 2013-11-30 21:22:00 [facility] [place] Diastolic (mm Hg) 2013-11-30 21:22:00 [facility] Respitory Rate 2013-11-30 21:22:00 [facility] [place] Heart Rate 2013-11-30 21:22:00 [facility] Systolic (mm Hg) 2013-11-30 19:00:00 [facility] Diastolic (mm Hg) 2013-11-30 19:00:00 [facility] Heart Rate 2013-11-30 19:00:00 [facility] [place] Respitory Rate 2013-11-30 19:00:00 Donal [facility] Weight 2013-11-30 17:06:00 [facility] Height 2013-11-30 17:06:00 160.02 [facility] BMI Calculated 2013-11-30 [facility] (F) 2013-11-30 17:06:00 98.2 F [facility] Respitory Rate 2013-11-30 17:06:00 [facility] Heart Rate 2013-11-30 17:06:00 [facility] Diastolic (mm Hg) 2013-11-30 17:06[facility] 2013-11-30 17:06:00 [facility] Procedures Procedure Date / Time Performing Clinician Source Performed CT, head, w/o contrast 2022-02-24 00:00:00 [facility] URINE CULTURE 2021-09-23 00:00:00 Provider, Not In [facility] POC URINALYSIS DIPSTICK 2021-08-21 19:36:00 Emily Vazquez [facility] [id number] 2021-08-21 19:36:00 Emily aVzquez [facility] Removal of gallbladder 2013-03-30 06:00:00 David Cevallos [facility] Cholecystectomy [facility] Tubal Ligation [facility] Bilateral tubal ligation [facility] Carpal tunnel release [facility] Mammogram [facility] Cystoscopy [facility] Plan of Care Planned Activity Planned Date Details Comments Source Future Scheduled Test 2022-09-12 Screening for [facility] 02:32:49 malignant neoplasm of colon (procedure) [code = 479984865] Future Scheduled Test 2022-09-12 Screening for [facility] 02:32:49 malignant neoplasm of colon (procedure) [code = 548673834] Future Scheduled Test 2022-09-12 Screening for [facility] 02:32:49 malignant neoplasm of colon (procedure) [code = 608805265] Future Scheduled Test 2022-09-12 Hepatitis C screening [facility] 02:32:49 (procedure) [code = 368211890] Future Scheduled Test 2022-09-12 Screening for [facility] 02:32:49 malignant neoplasm of cervix (procedure) [code = 533185855] Future Scheduled Test 2022-09-12 BREAST CANCER [facility] 02:32:49 SCREENING [code = BREAST CANCER SCREENING] Future Scheduled Test 2022-09-12 SHINGLES VACCINES (1 [facility] 02:32:49 of 2) [code = SHINGLES VACCINES (1 of 2)] Future Scheduled Test 2022-09-12 Screening for [facility] 02:32:49 malignant neoplasm of colon (procedure) [code = 342332182] Future Scheduled Test 2022-09-12 Screening for [facility] 02:32:49 malignant neoplasm of colon (procedure) [code = 656258114] Future Scheduled Test 2022-09-12 65+ PNEUMOCOCCAL [facility] 02:32:49 VACCINE (1 - PCV) [code = 65+ PNEUMOCOCCAL VACCINE (1 - PCV)] Future Scheduled Test 2022-09-12 INFLUENZA VACCINE [facility] 02:32:49 [code = INFLUENZA VACCINE] Future Scheduled Test 2022-09-12 Screening for [facility] 02:32:49 malignant neoplasm of colon (procedure) [code = 675164174] Future Scheduled Test 2022-09-12 Screening for [facility] 02:32:49 malignant neoplasm of colon (procedure) [code = 085318452] Future Scheduled Test 2022-09-12 Screening for [facility] 02:32:49 malignant neoplasm of colon (procedure) [code = 470987174] Future Scheduled Test 2022-09-12 Hepatitis C screening [facility] 02:32:49 (procedure) [code = 217332174] Future Scheduled Test 2022-09-12 Screening for [facility] 02:32:49 malignant neoplasm of cervix (procedure) [code = 469149493] Future Scheduled Test 2022-09-12 BREAST CANCER [facility] 02:32:49 SCREENING [code = BREAST CANCER SCREENING] Future Scheduled Test 2022-09-12 SHINGLES VACCINES (1 [facility] 02:32:49 of 2) [code = SHINGLES VACCINES (1 of 2)] Future Scheduled Test 2022-09-12 Screening for [facility] 02:32:49 malignant neoplasm of colon (procedure) [code = 958012916] Future Scheduled Test 2022-09-12 Screening for [facility] 02:32:49 malignant neoplasm of colon (procedure) [code = 854109213] Future Scheduled Test 2022-09-12 65+ PNEUMOCOCCAL [facility] 02:32:49 VACCINE (1 - PCV) [code = 65+ PNEUMOCOCCAL VACCINE (1 - PCV)] Future Scheduled Test 2022-09-12 INFLUENZA VACCINE [facility] 02:32:49 [code = INFLUENZA VACCINE] Diagnostic Test 2022-09-11 urinalysis, dipstick [facility] Pending 00:00:00 [code = urinalysis, [facility] dipstick] Future Scheduled Test 2022-07-04 Hepatitis C screening [facility] 13:42:03 (procedure) [code = 838271729] Future Scheduled Test 2022-07-04 Screening for [facility] 13:42:03 malignant neoplasm of cervix (procedure) [code = 250530805] Future Scheduled Test 2022-07-04 BREAST CANCER [facility] 13:42:03 SCREENING [code = BREAST CANCER SCREENING] Future Scheduled Test 2022-07-04 COLONOSCOPY SCREENING [facility] 13:42:03 [code = COLONOSCOPY SCREENING] Future Scheduled Test 2022-07-04 SHINGLES VACCINES (1 [facility] 13:42:03 of 2) [code = SHINGLES VACCINES (1 of 2)] Future Scheduled Test 2022-07-04 65+ PNEUMOCOCCAL [facility] 13:42:03 VACCINE (1 - PCV) [code = 65+ PNEUMOCOCCAL VACCINE (1 - PCV)] Future Scheduled Test 2022-07-04 INFLUENZA VACCINE [facility] 13:42:03 [code = INFLUENZA VACCINE] Future Scheduled Test 2022-07-04 Hepatitis C screening [facility] 13:42:03 (procedure) [code = 887818219] Future Scheduled Test 2022-07-04 Screening for [facility] 13:42:03 malignant neoplasm of cervix (procedure) [code = 121894548] Future Scheduled Test 2022-07-04 BREAST CANCER [facility] 13:42:03 SCREENING [code = BREAST CANCER SCREENING] Future Scheduled Test 2022-07-04 COLONOSCOPY SCREENING [facility] 13:42:03 [code = COLONOSCOPY SCREENING] Future Scheduled Test 2022-07-04 SHINGLES VACCINES (1 [facility] 13:42:03 of 2) [code = SHINGLES VACCINES (1 of 2)] Future Scheduled Test 2022-07-04 65+ PNEUMOCOCCAL [facility] 13:42:03 VACCINE (1 - PCV) [code = 65+ PNEUMOCOCCAL VACCINE (1 - PCV)] Future Scheduled Test 2022-07-04 INFLUENZA VACCINE [facility] 13:42:03 [code = INFLUENZA VACCINE] Future Scheduled Test 2022-07-04 Hepatitis C screening [facility] 13:42:03 (procedure) [code = 366029446] Future Scheduled Test 2022-07-04 Screening for [facility] 13:42:03 malignant neoplasm of cervix (procedure) [code = 021972215] Future Scheduled Test 2022-07-04 BREAST CANCER [facility] 13:42:03 SCREENING [code = BREAST CANCER SCREENING] Future Scheduled Test 2022-07-04 COLONOSCOPY SCREENING [facility] 13:42:03 [code = COLONOSCOPY SCREENING] Future Scheduled Test 2022-07-04 SHINGLES VACCINES (1 [facility] 13:42:03 of 2) [code = SHINGLES VACCINES (1 of 2)] Future Scheduled Test 2022-07-04 65+ PNEUMOCOCCAL [facility] 13:42:03 VACCINE (1 - PCV) [code = 65+ PNEUMOCOCCAL VACCINE (1 - PCV)] Future Scheduled Test 2022-07-04 INFLUENZA VACCINE [facility] 13:42:03 [code = INFLUENZA VACCINE] Future Scheduled Test 2022-07-04 Hepatitis C screening [facility] 13:42:03 (procedure) [code = 777189500] Future Scheduled Test 2022-07-04 Screening for [facility] 13:42:03 malignant neoplasm of cervix (procedure) [code = 044550437] Future Scheduled Test 2022-07-04 BREAST CANCER [facility] 13:42:03 SCREENING [code = BREAST CANCER SCREENING] Future Scheduled Test 2022-07-04 COLONOSCOPY SCREENING [facility] 13:42:03 [code = COLONOSCOPY SCREENING] Future Scheduled Test 2022-07-04 SHINGLES VACCINES (1 [facility] 13:42:03 of 2) [code = SHINGLES VACCINES (1 of 2)] Future Scheduled Test 2022-07-04 65+ PNEUMOCOCCAL [facility] 13:42:03 VACCINE (1 - PCV) [code = 65+ PNEUMOCOCCAL VACCINE (1 - PCV)] Future Scheduled Test 2022-07-04 INFLUENZA VACCINE [facility] 13:42:03 [code = INFLUENZA VACCINE] Future Scheduled Test 2022-07-04 Hepatitis C screening [facility] 13:42:03 (procedure) [code = 508282239] Future Scheduled Test 2022-07-04 Screening for [facility] 13:42:03 malignant neoplasm of cervix (procedure) [code = 559837737] Future Scheduled Test 2022-07-04 BREAST CANCER [facility] 13:42:03 SCREENING [code = BREAST CANCER SCREENING] Future Scheduled Test 2022-07-04 Screening for [facility] 13:42:03 malignant neoplasm of colon (procedure) [code = 966015523] Future Scheduled Test 2022-07-04 SHINGLES VACCINES (1 [facility] 13:42:03 of 2) [code = SHINGLES VACCINES (1 of 2)] Future Scheduled Test 2022-07-04 65+ PNEUMOCOCCAL [facility] 13:42:03 VACCINE (1 - PCV) [code = 65+ PNEUMOCOCCAL VACCINE (1 - PCV)] Future Scheduled Test 2022-07-04 INFLUENZA VACCINE [facility] 13:42:03 [code = INFLUENZA VACCINE] Future Scheduled Test 2022-05-22 Hepatitis C screening [facility] 16:12:20 (procedure) [code = 863747218] Future Scheduled Test 2022-05-22 Screening for [facility] 16:12:20 malignant neoplasm of cervix (procedure) [code = 551665697] Future Scheduled Test 2022-05-22 BREAST CANCER [facility] 16:12:20 SCREENING [code = BREAST CANCER SCREENING] Future Scheduled Test 2022-05-22 COLONOSCOPY SCREENING [facility] 16:12:20 [code = COLONOSCOPY SCREENING] Future Scheduled Test 2022-05-22 SHINGLES VACCINES (1 [facility] 16:12:20 of 2) [code = SHINGLES VACCINES (1 of 2)] Future Scheduled Test 2022-05-22 65+ PNEUMOCOCCAL [facility] 16:12:20 VACCINE (1 - PCV) [code = 65+ PNEUMOCOCCAL VACCINE (1 - PCV)] Future Scheduled Test 2022-05-22 INFLUENZA VACCINE [facility] 16:12:20 [code = INFLUENZA VACCINE] Future Scheduled Test 2022-02-04 HEPATITIS B VACCINES [facility] 13:45:17 (1 of 3 - 3-dose series) [code = HEPATITIS B VACCINES (1 of 3 - 3-dose series)] Future Scheduled Test 2022-02-04 Hepatitis C screening [facility] 13:45:17 (procedure) [code = 225172930] Future Scheduled Test 2022-02-04 Screening for [facility] 13:45:17 malignant neoplasm of cervix (procedure) [code = 460045515] Future Scheduled Test 2022-02-04 BREAST CANCER [facility] 13:45:17 SCREENING [code = BREAST CANCER SCREENING] Future Scheduled Test 2022-02-04 COLONOSCOPY SCREENING [facility] 13:45:17 [code = COLONOSCOPY SCREENING] Future Scheduled Test 2022-02-04 SHINGLES VACCINES (1 [facility] 13:45:17 of 2) [code = SHINGLES VACCINES (1 of 2)] Future Scheduled Test 2022-02-04 65+ PNEUMOCOCCAL [facility] 13:45:17 VACCINE (1 - PCV) [code = 65+ PNEUMOCOCCAL VACCINE (1 - PCV)] Future Scheduled Test 2022-02-04 INFLUENZA VACCINE [facility] 13:45:17 [code = INFLUENZA VACCINE] Future Scheduled Test 2022-02-04 HEPATITIS B VACCINES [facility] 13:45:17 (1 of 3 - 3-dose series) [code = HEPATITIS B VACCINES (1 of 3 - 3-dose series)] Future Scheduled Test 2022-02-04 Hepatitis C screening [facility] 13:45:17 (procedure) [code = 355855216] Future Scheduled Test 2022-02-04 Screening for [facility] 13:45:17 malignant neoplasm of cervix (procedure) [code = 777480501] Future Scheduled Test 2022-02-04 BREAST CANCER [facility] 13:45:17 SCREENING [code = BREAST CANCER SCREENING] Future Scheduled Test 2022-02-04 COLONOSCOPY SCREENING [facility] 13:45:17 [code = COLONOSCOPY SCREENING] Future Scheduled Test 2022-02-04 SHINGLES VACCINES (1 [facility] 13:45:17 of 2) [code = SHINGLES VACCINES (1 of 2)] Future Scheduled Test 2022-02-04 65+ PNEUMOCOCCAL [facility] 13:45:17 VACCINE (1 - PCV) [code = 65+ PNEUMOCOCCAL VACCINE (1 - PCV)] Future Scheduled Test 2022-02-04 INFLUENZA VACCINE [facility] 13:45:17 [code = INFLUENZA VACCINE] Future Scheduled Test 2022-01-03 HEPATITIS B VACCINES [facility] 14:11:23 (1 of 3 - 3-dose series) [code = HEPATITIS B VACCINES (1 of 3 - 3-dose series)] Future Scheduled Test 2022-01-03 Hepatitis C screening [facility] 14:11:23 (procedure) [code = 338073189] Future Scheduled Test 2022-01-03 Screening for [facility] 14:11:23 malignant neoplasm of cervix (procedure) [code = 355039032] Future Scheduled Test 2022-01-03 BREAST CANCER [facility] 14:11:23 SCREENING [code = BREAST CANCER SCREENING] Future Scheduled Test 2022-01-03 COLONOSCOPY SCREENING [facility] 14:11:23 [code = COLONOSCOPY SCREENING] Future Scheduled Test 2022-01-03 SHINGLES VACCINES (1 [facility] 14:11:23 of 2) [code = SHINGLES VACCINES (1 of 2)] Future Scheduled Test 2022-01-03 65+ PNEUMOCOCCAL [facility] 14:11:23 VACCINE (1 - PCV) [code = 65+ PNEUMOCOCCAL VACCINE (1 - PCV)] Future Scheduled Test 2022-01-03 INFLUENZA VACCINE [facility] 14:11:23 [code = INFLUENZA VACCINE] Future Scheduled Test 2022-01-03 HEPATITIS B VACCINES [facility] 14:11:23 (1 of 3 - 3-dose series) [code = HEPATITIS B VACCINES (1 of 3 - 3-dose series)] Future Scheduled Test 2022-01-03 Hepatitis C screening [facility] 14:11:23 (procedure) [code = 120709205] Future Scheduled Test 2022-01-03 Screening for [facility] 14:11:23 malignant neoplasm of cervix (procedure) [code = 699150702] Future Scheduled Test 2022-01-03 BREAST CANCER [facility] 14:11:23 SCREENING [code = BREAST CANCER SCREENING] Future Scheduled Test 2022-01-03 COLONOSCOPY SCREENING [facility] 14:11:23 [code = COLONOSCOPY SCREENING] Future Scheduled Test 2022-01-03 SHINGLES VACCINES (1 [facility] 14:11:23 of 2) [code = SHINGLES VACCINES (1 of 2)] Future Scheduled Test 2022-01-03 65+ PNEUMOCOCCAL [facility] 14:11:23 VACCINE (1 - PCV) [code = 65+ PNEUMOCOCCAL VACCINE (1 - PCV)] Future Scheduled Test 2022-01-03 INFLUENZA VACCINE [facility] 14:11:23 [code = INFLUENZA VACCINE] Future Scheduled Test 2021-11-28 HEPATITIS B VACCINES [facility] 00:25:38 (1 of 3 - 3-dose series) [code = HEPATITIS B VACCINES (1 of 3 - 3-dose series)] Future Scheduled Test 2021-11-28 Hepatitis C screening [facility] 00:25:38 (procedure) [code = 352574935] Future Scheduled Test 2021-11-28 Screening for [facility] 00:25:38 malignant neoplasm of cervix (procedure) [code = 761888437] Future Scheduled Test 2021-11-28 BREAST CANCER [facility] 00:25:38 SCREENING [code = BREAST CANCER SCREENING] Future Scheduled Test 2021-11-28 COLONOSCOPY SCREENING [facility] 00:25:38 [code = COLONOSCOPY SCREENING] Future Scheduled Test 2021-11-28 SHINGLES VACCINES (1 [facility] 00:25:38 of 2) [code = SHINGLES VACCINES (1 of 2)] Future Scheduled Test 2021-11-28 65+ PNEUMOCOCCAL [facility] 00:25:38 VACCINE (1 - PCV) [code = 65+ PNEUMOCOCCAL VACCINE (1 - PCV)] Future Scheduled Test 2021-11-28 INFLUENZA VACCINE [facility] 00:25:38 [code = INFLUENZA VACCINE] Future Scheduled Test 2021-11-28 HEPATITIS B VACCINES [facility] 00:25:38 (1 of 3 - 3-dose series) [code = HEPATITIS B VACCINES (1 of 3 - 3-dose series)] Future Scheduled Test 2021-11-28 Hepatitis C screening [facility] 00:25:38 (procedure) [code = 729057298] Future Scheduled Test 2021-11-28 Screening for [facility] 00:25:38 malignant neoplasm of cervix (procedure) [code = 768424255] Future Scheduled Test 2021-11-28 BREAST CANCER [facility] 00:25:38 SCREENING [code = BREAST CANCER SCREENING] Future Scheduled Test 2021-11-28 COLONOSCOPY SCREENING [facility] 00:25:38 [code = COLONOSCOPY SCREENING] Future Scheduled Test 2021-11-28 SHINGLES VACCINES (1 [facility] 00:25:38 of 2) [code = SHINGLES VACCINES (1 of 2)] Future Scheduled Test 2021-11-28 65+ PNEUMOCOCCAL [facility] 00:25:38 VACCINE (1 - PCV) [code = 65+ PNEUMOCOCCAL VACCINE (1 - PCV)] Future Scheduled Test 2021-11-28 INFLUENZA VACCINE [facility] 00:25:38 [code = INFLUENZA VACCINE] [facility] Start End Encounter Admission Attending Care Care Encounter Source Date/Time Date/Time Type Type Clinicians Facility Department ID 2022-09-26 Outpatient [facility] [id number] [place] 06:48:56 [id number] [facility] 2021-11-07 Outpatient [facility] [id number] [place] 01:51:34 [id number] [facility] 2021-10-07 Outpatient [facility] [id number] [place] 12:39:58 [id number] [facility] 2021-07-05 Outpatient [facility] [id number] [place] 01:03:47 LUCIEN [id number] [facility] 2022-09-11 2022-09-11 Kaitlin [facility] [place] 15 [place] 00:00:00 00:00:00 Julianne Block Co 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, [address], [place] [address] , Ph. 2022-09-04 2022-09-04 Emergency [facility] [id number] Memoria 15:44:51 19:16:00 Mart 76 l [place] Jada hinds 2022-09-04 2022-09-04 Outpatient RAJAT Ruelas [facility] [id number] 10:44:51 14:16:00 Arun Valencia 2022-09-04 2022-09-04 Emergency JOSIAH GARCIA FB [id number] FB 10:44:00 14:16:00 ARUN 2022-09-01 2022-09-01 Outpatient CHRETIEN_F [facility] [id number] [place] 00:00:00 00:00:00 0615 [facility] 2022-09-01 2022-09-01 Kaitlin [facility] [place] [id number] [place] 00:00:00 00:00:00 Julianne Block [employer] mmuni SHEAR SCRAPMAN-FITNESS CENTRE MANAGER-B Hospital - ty C: [address], [address], [place] [address] , Ph. 2022-08-29 2022-08-29 Outpatient CHRETIEN_F [facility] [id number] [place] 00:00:00 00:00:00 0602 [facility] 2022-08-29 2022-08-29 Outpatient CHRETIEN_F [facility] [id number] [place] 00:00:00 00:00:00 0605 [facility] 2022-08-12 2022-08-12 Kaitlin [facility] [place] - [place] 16 [place] 00:00:00 00:00:00 Umair [facility] mmuni SHEAR SCRAPMAN-FITNESS CENTRE MANAGER-B Hospital - ty C: [address], [address], [place] [address] , Ph. 2022-08-04 2022-08-04 Outpatient CHRETIEN_F [facility] [id number] [place] 00:00:00 00:00:00 0516 [facility] 2022-07-21 2022-07-21 Outpatient CHRETIEN_F [facility] [id number] [place] 00:00:00 00:00:00 0424 [facility] 2022-07-18 2022-07-18 Kaitlin [facility] [place] 00:00:00 00:00:00 Julianne Block Co mmuni SHEAR SCRAPMAN-FITNESS CENTRE MANAGER-B Hospital - ty C: [address] [facility], [address], [place] [address] , Ph. 2022-07-08 2022-07-08 Outpatient CHRETIEN_F [facility] [id number] [place] 00:00:00 00:00:00 0411 [facility] 2022-07-08 2022-07-08 Outpatient CHRETIEN_F [facility] [id number] [place] 00:00:00 00:00:00 0421 [facility] Clinics 2022-07-08 2022-07-08 Kaitlin [facility] [place] 00:00:00 00:00:00 Julianne Block APRN-[facility]-B Hospital - ty C: [address] [place] [address], [address], [place] [address] , Ph. 2022-06-09 2022-06-09 Outpatient CHRETIEN_F [facility] [id number] [place] 00:00:00 00:00:00 0313 [facility] 2022-04-11 2022-04-11 Outpatient CHRETIEN_F [facility] [id number] [place] 00:00:00 00:00:00 0120 [facility] 2022-03-27 2022-03-27 Outpatient CHRETIEN_F [facility] [id number] [place] 00:00:00 00:00:00 1229 Commun i [facility] Clinics 2022-03-27 2022-03-27 Emily [facility] [place] [id number] [place] 00:00:00 00:00:00 Julianne Longoria APRN, MSN, Hospital - ty [facility]-: [address], [address] [place] [address] , Ph. 2022-03-26 2022-03-26 Outpatient CHRETIEN_F [facility] [id number] [place] 00:00:00 00:00:00 1228 [facility] 2022-02-24 2022-02-24 Outpatient CHRETIEN_F [facility] [id number] [place] 00:00:00 00:00:00 1128 [facility]ics 2022-02-24 2022-02-24 Kaitlin [facility] [place] [id number] [place] 00:00:00 00:00:00 Julianne Block Co mmuni SHEAR SCRAPMAN-FITNESS CENTRE MANAGER-B Hospital - ty C: [address], [address], [place] [address] , Ph. 2022-02-23 2022-02-23 Outpatient SISSON_C [facility] 2021 [place] 00:00:00 00:00:00 1127 [facility] i [facility] Clinics 2022-02-06 2022-02-06 Outpatient [facility] PEORIASON_C [facility] 2021 [place] 00:00:00 00:00:00 1110 [facility] 2022-01-23 2022-01-23 Outpatient SISSON_[facility] 2021 [place] 00:00:00 00:00:00 1027 Commun i [facility] H[facility] Clinics 2022-01-23 2022-01-23 [facility] [place] - [place] 00:00:00 00:00:00 Julianne Lopez MSN, SHEAR SCRAPMAN, Hospital - ty FITNESS CENTRE MANAGER-C: [address] [place] [facility] [address], [facility] [address], Mam[place] Lopez [place] MSN, FITNESS CENTRE MANAGER-C [address] , Ph. 2022-01-15 2022-01-15 Outpatient SISSON_C [facility] [id number] [place] 00:00:00 00:00:00 1019 [facility]ics 2022-01-03 2022-01-03 Florencia Vazquez 1.2.840.1 [id number] Methodi 00:00:00 00:00:00 Emily 03353.1.1 769 [facility] [place] 3.430.2.7 Hosp bandar .3.560101 l .8 2022-01-03 2022-01-03 Nick Smart.2.840.1 [id number] 21 [id number] Methodi 00:00:00 00:00:00 Emily 84402.1.1 769 [facility] [place] 3.430.2.7 Hosp bandar .3.374081 l .8 2022-01-02 2022-01-02 Outpatient SISSON_C [facility] [id number] [place] 00:00:00 00:00:00 1006 [facility] i [facility] Clinics 2021-12-30 2021-12-31 Inpatient CHICO Arauz, [facility] MEDI.01 [id number] [facility] 12:08:00 09:39:[address] [place] [address] 2021-12-18 2021-12-18 Outpatient SISSON_C [facility] [id number] [place] 00:00:00 00:00:00 0921 Commun i ty Hospita l [facility] 2021-12-18 2021-12-18 [facility] [place] - Mam[place] 00:00:00 00:00:00 Julianne Lopez MSN, SHEAR SCRAPMAN, Hospital - ty FITNESS CENTRE MANAGER-C: [address] [place] [facility] [address], [facility] [address], [place], [place] MSN, FITNESS CENTRE MANAGER-C [address] , Ph. 2021-12-12 2021-12-12 Outpatient SISSON_C [facility] [id number] [place] 00:00:00 00:00:00 0915 [facility] 2021-12-12 2021-12-12 [facility] [id number] 00:00:00 00:00:00 Willy [id number] 2021-12-12 2021-12-12 [facility] [place] - [place] [id number] [place] 00:00:00 00:00:00 [facility] reanna MSN, SHEAR SCRAPMAN, [facility] ty [facility]-: [address] [place] [facility] [address], [facility] [address], [place], YAEL MSN, [facility]- [address] , Ph. 2021-12-10 2021-12-10 Outpatient SISSON_C [facility] [id number] [place] 00:00:00 00:00:00 0913 [facility] 2021-11-11 2021-11-11 Outpatient CHRETIEN_F [facility] [id number] [place] 00:00:00 00:00:00 0815 Commun i ty [facility]osp[facility] Clinics 2021-11-08 2021-11-08 Outpatient CHRETIEN_F [facility] 1044 [place] 00:00:00 00:00:00 0812 Commun i ty Hospita l [facility] 2021-11-08 2021-11-08 Outpatient Emily Longoria [facility] [id number] 00:00:00 00:00:00 [id number] 2021-11-08 2021-11-08 [facility] [place] [facility] [place] [id number] [place] 00:00:00 00:00:00 [facility] reanna SHEAR SCRAPMAN, MSN, Hospital - ty [facility]-: [facility] [address] [place] [address], CLIN[address], [place] [address] , Ph. 2021-11-06 2021-11-07 Outpt Diag nullFlavo [facility] [id number] [place] 17:27:00 04:59:00 Services r Outpatient 03 l Imaging Mart Garcia 2021-11-06 2021-11-06 Outpatient CULLEN Shannon Zeke [id number] 12:27:00 23:59:00 Lucien Velasquez 2021-10-22 2021-10-22 Outpatient CHRETIEN_F [facility] 1044 [place] 10:01:00 10:01:00 0726 Commun i ty Hospita [facility] Clinics 2021-10-21 2021-10-21 Outpatient [facility] [id number] [place] 10:15:00 10:15:00 Andi MATTHEW Field chapincito 2021-10-21 2021-10-21 Outpatient CHRETIEN_F [facility] [id number] [place] 06:03:00 06:03:00 0725 Commun i ty Hospita [facility] Clinics 2021-10-21 2021-10-21 Outpatient Chretien, [facility] [id number] 00:00:00 00:00:00 Kaitlin [id number] 2021-10-21 2021-10-21 Kaitlin [facility] [place] 00:00:00 00:00:00 Umair, [facility] mmuni SHEAR SCRAPMAN-FITNESS CENTRE MANAGER-B Hospital - ty C: [address], [address], [place] [address] , Ph. 2021-10-14 2021-10-14 Bedded [facility] [id number] [facility] 12:36:00 19:00:00 Outpatient andi Cevallos [address] [place] [address] 2021-10-14 2021-10-14 Outpatient Kamron [facility] [id number] 07:36:00 14:00:00 Lucien Velasquez 2021-10-14 2021-10-14 Outpatient KAMRON [facility] [id number] [facility] 07:36:00 14:00:00 LUCIEN 2021-10-14 2021-10-14 Outpatient KAMRON [facility] [id number] [place] 09:00:00 09:00:00 [facility] 2021-10-11 2021-10-11 Outpatient LEVI_JEMAL HODGE 987 [place] 10:21:00 10:21:00 SSA [facility] 2021-10-08 2021-10-08 Outpatient WATERS_S [facility] [id number] [place] 03:10:00 03:10:00 0712 Commun i ty Hospita Clinics 2021-09-23 2021-09-23 Orders Provider, 1.2.840.1 [id number] [id number] Methodi 00:00:00 00:00:00 Only Not In [address]90.1.[address] System 3.430.2.7 Hospit a .3.959688 l .8 2021-09-23 2021-09-23 Telephone Lord, 1.2.840.1 [id number] 2100 [id number] Methodi 00:00:00 00:00:[address] 3.430.2.7 Hospit a .3.757266 l .8 2021-09-20 2021-09-20 Outpatient FRANCISCO_S [facility] [id number] [place] 12:16:00 12:16:00 0624 [facility] i ty Hospita [facility] 2021-09-20 2021-09-20 [facility] [place] 00:00:00 00:00:00 [facility] MSN, SHEAR SCRAPMAN, [facility] - ty FITNESS CENTRE MANAGER-C: [address] [facility] [address], [facility] [address], [place], [place] MSN, FITNESS CENTRE MANAGER-C [address] , Ph. 2021-09-20 2021-09-20 [facility] [id number] 00:00:00 00:00:00 Willy [id number] 2021-09-11 2021-09-11 Orders George, 1.2.840.1 [id number] 2100 [id number] Methodi 00:00:00 00:00:00 Only Emily [address]646.1.[address] [facility] 3.430.2.7 Hosp bandar .3.040446 l .8 2021-09-09 2021-09-09 Telephone George, 1.2.840.1 [id number] 21 [id number] Methodi 00:00:00 00:00:[address] [facility] 3.430.2.7 Hosp bandar .3.300339 l .8 2021-09-03 2021-09-03 Outpatient WATERS_S [facility] 2021 [place] 01:31:00 01:31:00 0607 Commun i ty Hospita l [facility] 2021-08-21 2021-08-21 Office George, 1.2.840.1 [id number] 2100 [id number] Methodi 14:45:00 15:41:16 Visit Emily 32572.1.[address] [facility] 3.430.2.7 Hosp bandar .3.882398 l .8 2021-08-21 2021-08-21 Travel 1.2.840.1 1.2.390.358 4722 [id number] Methodi 00:00:00 00:00:[address] 3.430.2.7 0.2.7.3.698 Ho spita .3.516122 084.8 l .8 2021-07-31 2021-07-31 Outpatient WATERS_S [facility] [id number] [place] 04:50:00 04:50:00 0504 Commun i ty Hospita l [facility] 2021-07-31 2021-07-31 [facility] [place] - [place] 00:00:00 00:00:00 [facility] MSN, SHEAR SCRAPMAN, Hospital - ty FITNESS CENTRE MANAGER-C: [address] [place] [facility] s [address], Willy [address], [place], [place] MSN, FITNESS CENTRE MANAGER-C [address] , Ph. 2021-07-31 2021-07-31 [facility] [id number] 00:00:00 00:00:00 Willy [id number] 2021-07-26 2021-07-26 Outpatient WATERS_S [facility] 2021 [place] 05:01:00 05:01:00 0429 Commun i ty Hospita l Clinics 2021-07-26 2021-07-26 [facility] [place] 00:00:00 00:00:00 [facility] MSN, SHEAR SCRAPMAN, Hospital - ty FITNESS CENTRE MANAGER-C: [address] [place] [facility] [address], [facility] [address], [place], [place] MSN, FITNESS CENTRE MANAGER-C [address] , Ph. 2021-07-26 2021-07-26 Outpatient John [facility] [id number] 00:00:00 00:00:00 Willy [id number] 2021-07-23 2021-07-23 Outpatient WATERS_S [facility] 2021 [place] 03:28:00 03:28:00 0426 Commun i ty Hospita l [facility] 2021-07-23 2021-07-23 Kaitlin [facility] [place] 00:00:00 00:00:00 [facility] mmuni SHEAR SCRAPMAN-FITNESS CENTRE MANAGER-B Hospital - ty C: [address] [facility], [address], [place] [address] , Ph. 2021-07-23 2021-07-23 Outpatient [facility] [id number] 00:00:00 00:00:00 Kaitlin [id number] 2021-07-13 2021-07-13 Outpatient WATERS_S [facility] [id number] [place] 01:29:00 01:29:00 0416 Commun i ty Hosp[facility] Clinics 2021-06-24 2021-06-24 Outpatient WATERS_S [facility] [id number] [place] 06:06:00 06:06:00 0328 Commun i ty Hospita l [facility] 2021-06-24 2021-06-24 Roula [facility] [place] 00:00:00 00:00:00 [facility]-MATERIALS SCIENTIST-C: Hospital - [place] [address], [place] [address] , Ph. 2021-06-24 2021-06-24 Outpatient [place] [facility] [id number] 00:00:00 00:00:00 [place] [id number] 2021-05-30 2021-05-30 Outpatient [place]_[facility] [id number] [place] 04:28:00 04:28:00 0303 Commun i ty Hosp[facility] 2021-05-30 2021-05-30 [place] [facility] [place] 00:00:00 00:00:00 [facility] Hospital - ty [address] [place] [address], [place] [address] , Ph. 2021-05-30 2021-05-30 Outpatient [place], [facility] [id number] 00:00:00 00:00:00 [place] [id number] 2021-04-26 2021-04-26 Outpatient [place] [id number] [place] 04:02:00 04:02:00 0128 [facility] 2021-04-10 2021-04-10 Outpatient [facility]ERS_[facility] [id number] 2021 [place] 10:19:00 10:19:00 0112 [facility] 2021-04-09 2021-04-09 Outpatient [place]_[facility] [id number] [place] 02:44:00 02:44:00 0111 [facility] 2021-04-09 2021-04-09 [place] [facility] [facility] [place] [facility] [place] 11 [place] 00:00:00 00:00:00 [facility] SHEAR SCRAPMAN-MATERIALS SCIENTIST-C: Hospital - ty [address], [place] [address] , Ph. 2021-04-09 2021-04-09 Outpatient [facility] [id number] 00:00:00 00:00:00 [place]oul[place] [id number] 2021-04-05 2021-04-06 Outpatient nullFlavo [facility] [id number] Memoria 16:06:00 05:59:00 r Disease 72 [facility] 2021-04-05 2021-04-05 Outpatient Kamron, [facility] [id number] 10:06:00 23:59:00 Lucien Velasquez 2021-04-05 2021-04-05 Outpatient KAMRON, [facility] [id number] [facility] 10:06:00 23:59:00 LUCIEN 2021-03-14 2021-03-14 Outpatient WATERS[facility] [id number] [place] 11:37:00 11:37:00 1216 [facility] 2021-03-14 2021-03-14 [facility] [place] [id number] [place] 00:00:00 00:00:00 [facility] SHEAR SCRAPMAN-MATERIALS SCIENTIST-C: Hospital - ty [address] [place] [address] [address], [place] [address] , Ph. 2021-03-14 2021-03-14 [facility] [id number] 00:00:00 00:00:00 [place] [id number] 2021-03-04 2021-03-04 Outpatient W[facility]ERS[facility] [id number] [place] 02:40:00 02:40:00 1206 [facility] 2021-03-04 2021-03-04 [facility] [place] [id number] [place] 00:00:00 00:00:00 [facility]-MATERIALS SCIENTIST-C: [address], [place] [address] , Ph. 2021-03-04 2021-03-04 Outpatient Finn, [facility] [id number] 00:00:00 00:00:00 [place] [id number] 2021-03-04 2021-03-04 Outpatient Finn, [facility] [id number] 00:00:00 00:00:00 Ruola [id number] 2021-02-25 2021-02-25 [facility] [place] [id number] [place] 00:00:00 00:00:00 [facility] [place] [id number], [place] [address] , Ph. 2021-02-25 2021-02-25 Outpatient Finn, [facility] [id number] 00:00:00 00:00:00 [place]oula [id number] 2021-01-14 2021-01-14 Outpatient [facility]ERS[facility] [id number] [place] 05:43:00 05:43:00 1018 [facility] 2021-01-14 2021-01-14 Outpatient Finn, [facility] [id number] 00:00:00 00:00:00 [place] [id number] 2021-01-14 2021-01-14 Outpatient Finn, [facility] [id number] 00:00:00 00:00:00 [place] [id number] 2021-01-14 2021-01-14 [facility] [place] 00:00:00 00:00:00 [facility] SHEAR SCRAPMAN-MATERIALS SCIENTIST-C: Hospital - ty [address] [place] [address] [address], [place] [address] , Ph. 2020-10-16 2020-10-16 Outpatient [facility] [id number] [place] 02:24:00 02:24:00 0720 Commun i ty Hospita [facility] 2020-10-16 2020-10-16 Outpatient [facility] [id number] 00:00:00 00:00:00 [place] [id number] 2020-10-16 2020-10-16 [facility] [place] 20 [place] 00:00:00 00:00:00 [facility] SHEAR SCRAPMAN-MATERIALS SCIENTIST-C: Hospital - ty [address] [place] [address] [address], [place] [address] , Ph. 2020-09-28 2020-09-28 Outpatient [facility] [id number] [place] 12:14:00 12:14:00 0702 Commun i ty Hospita [facility] 2020-09-28 2020-09-28 Outpatient [facility] [id number] 00:00:00 00:00:00 [place] [id number] 2020-09-28 2020-09-28 [facility] [place] [id number] [place] 00:00:00 00:00:00 [facility] SHEAR SCRAPMAN-MATERIALS SCIENTIST-C: Hospital - ty [address] [place] [address] [address], [place] [address] , Ph. 2020-09-28 2020-09-28 Outpatient Finn, [facility] [id number] 00:00:00 00:00:00 [place] [id number] 2020-08-30 2020-08-30 Outpatient [facility] [id number] [place] 05:28:00 05:28:00 0603 [facility]ics 2020-08-26 2020-08-26 Outpatient [facility] [id number] [place] 01:01:00 01:01:00 0530 [facility] 2020-08-20 2020-08-20 Outpatient [facility] [id number] [place] 05:07:00 05:07:00 0524 [facility] 2020-08-20 2020-08-20 [facility] [place] 00:00:00 00:00:00 [facility] SHEAR SCRAPMAN-MATERIALS SCIENTIST-C: [place] [address], [place] [address] , Ph. 2020-08-20 2020-08-20 Outpatient Francisco, [facility] [id number] 00:00:00 00:00:00 [place] [id number] 2020-08-16 2020-08-16 [facility] [id number] [place] 00:00:00 00:00:00 SHIELA Lindsay [facility] 2020-08-13 2020-08-13 Outpatient [facility] [id number] [place] 04:15:00 04:15:00 0517 [facility] i [facility] 2020-08-13 2020-08-13 [facility] [place] 00:00:00 00:00:00 [facility] SHEAR SCRAPMAN-MATERIALS SCIENTIST-C: [address] [facility], [place] [address] , Ph. 2020-08-13 2020-08-13 [facility] [id number] 00:00:00 00:00:00 [place] [id number] 2020-07-26 2020-07-26 Outpatient FRANCISCO_S [facility] [id number] [place] 05:04:00 05:04:00 0429 Commun i ty Hospita [facility] 2020-07-26 2020-07-26 [facility] [place] 00:00:00 00:00:00 Francisco [facility] SHEAR SCRAPMAN-MATERIALS SCIENTIST-C: Hospital - ty [address], [place] [address] , Ph. 2020-07-26 2020-07-26 [facility] [id number] 00:00:00 00:00:00 Roula [id number] 2020-07-24 2020-07-24 Outpatient SUSTACHE, [facility] [id number] [place] 00:00:00 00:00:00 SHIELA [address] 2020-07-23 2020-07-23 [facility] [id number] Memoria 21:54:40 23:17:00 andi Cevallos 71 l [place] hind[place] 2020-07-23 2020-07-23 [facility] [id number] 16:54:40 18:17:00 Nichelle Parra 2020-07-23 2020-07-23 Emergency E PAULETTE ALANISFB MHFB [id number] MHFB 16:54:00 18:17:00 NICHELLE 2020-03-09 2020-03-10 Outpatient [facility]Flavo [facility] [id number] Memoria 17:08:00 05:59:00 r Disease 71 l Davis Cevallos 2020-03-09 2020-03-09 Outpatient Kamron [facility] [id number] 11:08:00 23:59:00 Lucien Velasquez 2020-03-09 2020-03-09 Outpatient KAMRON, [facility] [id number] [facility] 11:08:00 23:59:00 LUCIEN 2020-01-11 2020-01-12 Emergency nullFlavo [facility] [id number] Memoria 22:36:56 02:26:00 r Mart 69 l [place] nn 2020-01-11 2020-01-11 Outpatient Fco Estrada [facility] [id number] 17:36:56 21:26:00 Palomo 70 2019-10-07 2019-10-08 Between nullFlavo MG [id number] Memoria 20:30:17 20:30:17 Visit r Primary 68 l Care [place] 2019-10-07 2019-10-08 Outpatient MHMG MG [id number] 15:30:17 15:30:17 68 2019-10-07 2019-10-07 [place] [id number] Memoria 20:30:00 20:30:00 Pre-Reg r Primary 27 l [facility] [place] 2019-10-07 2019-10-07 Outpatient MHIE MHIE [id number] Memoria 15:30:00 15:30:00 27 l [place] 2019-10-07 2019-10-07 Outpatient MHIE MHIE [id number] Memoria 15:30:00 15:30:00 28 l [place] 2019-10-07 2019-10-07 [place] [id number] 15:30:00 15:30:00 Shiela 27 2019-01-03 2019-01-04 Between nullFlavo MG [id number] Memoria 22:03:00 22:03:00 Visit r Primary 67 l [facility] [place] 2019-01-03 2019-01-04 Outpatient MHMG MG [id number] 17:03:00 17:03:00 67 2018-12-31 2019-01-01 [place] [id number] Memoria 16:00:00 04:59:59 r Primary 26 l [facility] [place] 2018-12-31 2018-12-31 [place] [id number] 11:00:00 23:59:59 Shiela 26 2018-12-31 2018-12-31 Outpatient MHIE MHIE [id number] Memoria 11:00:00 11:00:00 26 jamshid [place] 2018 2018-09-28 Between nullFlavo [facility] [id number] Memoria 14:45:47 14:45:47 Visit r Primary 65 l [facility] 2018 2018-09-28 Outpatient [facility] [id number] 09:45:47 09:45:47 65 2018-09-24 2018-09-25 Between nullFlavo [facility] [id number] Memoria 17:35:02 17:35:02 Visit r Primary 64 l [facility] 2018-09-24 2018-09-25 [facility] [id number] 12:35:02 12:35:02 64 2018-09-22 2018-09-23 Between nullFlavo MG [id number] Memoria 21:49:52 21:49:52 Visit r Primary 63 l [facility] 2018-09-22 2018-09-23 Outpatient [facility] [id number] 16:49:52 16:49:52 63 2018-09-22 2018-09-23 Outpatient nullFlavo [facility] [id number] Memoria 18:30:00 04:59:59 r Primary 25 l [facility] 2018-09-22 2018-09-22 Outpatient Sustache, [facility] [id number] 13:30:00 23:59:59 Shiela 25 2018-09-22 2018-09-[address] [id number] Memoria 13:30:00 13:30:00 25 [facility] 2018-09-06 2018-09-07 Between nullFlavo [facility] [id number] Memoria 13:31:31 13:31:31 Visit r Primary 61 l [facility] 2018-09-06 2018-09-07 Outpatient [facility] [id number] 08:31:31 08:31:31 61 2018-09-03 2018-09-04 Outpatient nullFlavo [facility] [id number] Memoria 14:00:00 04:59:59 r Primary 24 l [facility] 2018-09-03 2018-09-03 Outpatient Sustache, [facility] [id number] 09:00:00 23:59:59 Shiela 24 2018-09-03 2018-09-03 Outpatient MHIE MHIE [id number] Memoria 09:00:00 09:00:00 24 l [place] 2018-07-28 2018-07-29 Outpatient nullFlavo [place] [id number] Memoria 06:39:00 04:59:00 r Disease 60 l [facility] 2018-07-28 2018-07-28 Outpatient Kamron, [facility] [id number] 01:39:00 23:59:00 Lucien Velasquez 2018-07-28 2018-07-28 Outpatient [facility] [id number] [facility] 01:39:00 01:39:00 2018-06-16 2018-06-17 Between nullFlavo [facility] [id number] Memoria 20:32:41 20:32:41 Visit r Primary 59 l [facility] 2018-06-16 2018-06-17 Outpatient MG [facility] [id number] 15:32:41 15:32:41 59 2018-06-14 2018-06-15 Outpatient nullFlavo [facility] [id number] Memoria 19:10:00 04:59:59 r Primary 23 l [facility] 2018-06-14 2018-06-14 Outpatient Sustache, [facility] [id number] 14:10:00 23:59:59 Shiela 23 2018-06-14 2018-06-14 Outpatient MHIE IE [id number] Memoria 14:10:00 14:10:00 23 l [place] 2018-01-19 2018-01-21 Outside nullFlavo [facility] [id number] Memoria 16:25:00 04:59:59 Medical r Primary 38 l Records [facility] 2018-01-19 2018-01-20 Outpatient MG [facility] [id number] 11:25:00 23:59:59 38 2018-01-08 2018-01-10 Phone nullFlavo [facility] [id number] Memoria 13:55:00 04:59:59 Message r Primary 37 l [facility] 2018-01-08 2018-01-10 Phone nullFlavo [facility] [id number] Memoria 13:54:00 04:59:59 Message r Primary 36 l [facility] 2018-01-08 2018-01-09 Outpatient MHMG MG [id number] 08:55:00 23:59:59 37 2018-01-08 2018-01-09 Outpatient [facility]MG MG [id number] 08:54:00 23:59:59 36 2018-01-05 2018-01-07 Phone nullFlavo MG [id number] Memoria 13:32:00 04:59:59 Message r Primary 35 l Omer Penaloza 2018-01-05 2018-01-06 Outpatient MHMG MG [id number] 08:32:00 23:59:59 35 2018-01-05 2018-01-06 [place] [id number] Memoria 19:50:00 04:59:59 r Primary 22 l O[place] 2018-01-05 2018-01-06 Outpt Diag nullFlavo [facility] [id number] Memoria 21:42:00 04:59:00 Services r Outpatient 02 l Jose Francisco Cevallos [place] 2018-01-05 2018-01-05 Outpatient Sustache, MHMG [facility] [id number] 14:50:00 23:59:59 Shiela 22 2018-01-05 2018-01-05 Outpatient Alas, MH29 MH29 [id number] 16:42:00 23:59:00 Mercedez 02 2018-01-05 2018-01-05 Outpatient MHIE MHIE [id number] Memoria 14:50:00 14:50:00 22 jamshid [place] 2017-12-30 2018-01-01 Phone nullFlavo MG [id number] Memoria 20:39:00 04:59:59 Message r Primary 34 l Omer C[place]all[place] 2017-12-30 2018-01-01 Phone nullFlavo MG [id number] Memoria 15:11:00 04:59:59 Message r Primary 33 l Omer [place] 2017-12-30 2017-12-31 Outpatient MG MG [id number] 15:39:00 23:59:59 34 2017-12-30 2017-12-31 Outpatient MHMG MG [id number] 10:11:00 23:59:59 33 2017-11-06 2017-11-08 Phone nullFlavo MG [id number] Memoria 21:20:00 04:59:59 Message r Primary 32 l Omer [place] 2017-11-06 2017-11-07 Outpatient MHMG MHMG [id number] 16:20:00 23:59:59 32 2017-10-06 2017-10-07 Outpatient nullFlavo [facility] [id number] Memoria 19:30:00 04:59:59 r Primary 21 l Omer C[place]all[place] 2017-10-06 2017-10-06 Outpatient Sustache, MG [facility]MG [id number] 14:30:00 23:59:59 Shiela 21 2017-10-06 2017-10-06 Outpatient MHIE MHIE [id number] Memoria 14:30:00 14:30:00 21 jamshid [place] 2017-07-28 2017-07-30 Phone nullFlavo MHMG [id number] Memoria 20:09:00 04:59:59 Message r Primary 31 l O[place] 2017-07-28 2017-07-29 Outpatient MHMG MHMG [id number] 15:09:00 23:59:59 31 2017-07-28 2017-07-29 Outpatient MHMG MHMG [id number] 15:09:00 23:59:59 31 2017-07-27 2017-07-29 Phone nullFlavo MG [id number] Memoria 13:56:00 04:59:59 Message r Primary 30 l O[place] 2017-07-27 2017-07-28 Outpatient MHMG MHMG [id number] 08:56:00 23:59:59 30 2017-07-27 2017-07-28 Outpatient MHMG MHMG [id number] 08:56:00 23:59:59 30 2017-07-02 2017-07-03 Outpatient nullFlavo [facility]MG [id number] Memoria 19:50:00 04:59:59 r Primary 20 l O[place] 2017-07-02 2017-07-02 Outpatient Sustache, MHMG MHMG [id number] 14:50:00 23:59:59 Shiela 20 2017-07-02 2017-07-02 Outpatient MHIE MHIE [id number] Memoria 14:50:00 14:50:00 20 jamshid [place] 2017-06-29 2017-06-29 [place] [id number] Memoria 19:50:00 19:50:00 Pre-Reg r Primary 19 l Omer [facility] 2017-06-29 2017-06-29 Outpatient MHIE MHIE [id number] Memoria 14:50:00 14:50:00 19 jamshid [place] 2017-06-29 2017-06-29 Outpatient Sustache, MHMG MHMG [id number] 14:50:00 14:50:00 Shiela 19 2017-06-26 2017-06-28 Phone nullFlavo MG [id number] Memoria 19:14:00 04:59:59 Message r Primary 27 l Omer [facility] 2017-06-26 2017-06-27 Outpatient MHMG MHMG [id number] 14:14:00 23:59:59 27 2017-06-15 2017-06-17 Phone nullFlavo MHMG [id number] Memoria 19:19:00 04:59:59 Message r Primary 26 l [facility] 2017-06-15 2017-06-16 Outpatient MHMG MG [id number] 14:19:00 23:59:59 26 2017-06-09 2017-06-10 [place] [id number] Memoria 18:50:00 04:59:59 r Primary 18 l [facility] 2017-06-09 2017-06-09 Outpatient Sustache, MHMG MHMG [id number] 13:50:00 23:59:59 Shiela 18 2017-06-09 2017-06-09 Outpatient MHIE MHIE [id number] Memoria 13:50:00 13:50:00 18 jamshid [place] 2017-06-05 2017-06-07 Phone nullFlavo MG [id number] Memoria 17:21:00 05:59:59 Message r Primary 25 l [facility] 2017-06-05 2017-06-06 Outpatient MHMG MHMG [id number] 11:21:00 23:59:59 25 2017-06-06 2017-06-06 Emergency nullFlavo [facility] [id number] Memoria 02:21:00 02:28:[address] [facility] 2017-06-05 2017-06-05 Outpatient LUIZ Delgado [facility] [id number] 20:21:00 20:28:00 Zeb Damon 17 2017-06-05 2017-06-05 Outpatient PAULETTE DelgadoPL [facility]PL [id number] 20:21:00 20:28:00 Zeb Damon 17 2017-03-31 2017-04-01 Outpatient nullFlavo [facility] [id number] Memoria 19:50:00 05:59:59 r Primary 17 l Omer [place] 2017-03-31 2017-03-31 Outpatient Sustache, MHMG MHMG [id number] 13:50:00 23:59:59 Shiela 17 2017-03-31 2017-03-31 Outpatient MHIE MHIE [id number] Memoria 13:50:00 13:50:00 17 jamshid [place] 2017-03-12 2017-03-14 Phone nullFlavo MHMG [id number] Memoria 20:29:00 05:59:59 Message r Primary 24 l Omer [facility] 2017-03-12 2017-03-13 Outpatient MHMG MHMG [id number] 14:29:00 23:59:59 24 2017-03-09 2017-03-11 Phone nullFlavo [facility] [id number] Memoria 14:24:00 05:59:59 Message r Primary 23 l [facility] 2017-03-09 2017-03-10 Outpatient MHMG MHMG [id number] 08:24:00 23:59:59 23 2017-02-23 2017-02-24 Outpatient nullFlavo [facility] [id number] Memoria 19:50:00 05:59:59 r Primary 16 l [facility] 2017-02-23 2017-02-23 Outpatient Sustache, MHMG MHMG [id number] 13:50:00 23:59:59 Shiela 16 2017-02-23 2017-02-23 Outpatient MHIE MHIE [id number] Memoria 13:50:00 13:50:00 16 jamshid [place] 2016-12-30 2016-12-30 Outpatient MHIE MHIE [id number] Memoria 10:00:00 10:00:00 15 jamshid [place] 2016-11-12 2016-11-12 Outpatient MHIE MHIE [id number] Memoria 09:40:00 09:40:00 14 jamshid [place] 2016-08-29 2016-08-29 Outpatient MHIE MHIE [id number] Memoria 10:00:00 10:00:00 13 jamshid C[place]os 2016-07-30 2016-07-30 Outpatient MHIE MHIE [id number] Memoria 10:20:00 10:20:00 12 jamshid Cev[place]os 2016-06-03 2016-06-03 Outpatient MHIE MHIE [id number] Memoria 11:00:00 11:00:00 11 jamshid [place] 2016-05-15 2016-05-15 Outpatient MHIE MHIE [id number] Memoria 14:50:00 14:50:00 10 jamshid [place] 2016-04-17 2016-04-17 Outpatient MHIE MHIE [id number] Memoria 11:20:00 11:20:00 09 jamshid C[place] 2016-03-25 2016-03-26 Outpt Diag nullFlavo [facility] [id number] Memoria 15:58:00 05:59:00 Services r Outpatient 01 jamshid Huff 2016-03-25 2016-03-25 Outpatient [place], [place] [id number] 09:58:00 23:59:00 Lucien Velasquez 2016-03-12 2016-03-13 Outpatient [facility]Fl[facility] [id number] Memoria 19:31:00 05:59:00 andi Cevallos 09 jamshid [facility] Mart 2016-03-12 2016-03-12 Outpatient Kamron, [facility] [id number] 13:31:00 23:59:00 Lucien Velasquez 2016-02-13 2016-02-13 Outpatient MHIE MHIE [id number] Memoria 10:00:00 10:00:00 08 jamshid [place] 2016-01-21 2016-01-21 Outpatient MHIE MHIE [id number] Memoria 09:20:00 09:20:00 07 jamshid [place] 2015-11-19 2015-11-19 Outpatient MHIE MHIE [id number] Memoria 13:50:00 13:50:00 06 jamshid [place] 2015-10-18 2015-10-18 Outpatient MHIE MHIE [id number] Memoria 09:00:00 09:00:00 05 jamshid C[place]os 2015-09-16 2015-09-17 EC [facility]Flavo [facility] [id number] Memoria 21:47:00 00:06:00 Emergency r [place] 05 l [place] 2015-09-16 2015-09-16 Outpatient Deena, [facility] [id number] 16:47:00 19:06:00 Michelle Filiberto Gallardo 2015-09-11 2015-09-11 Outpatient MHIE MHIE [id number] Memoria 11:40:00 11:40:00 04 l [place] 2015-08-23 2015-08-23 Outpatient MHIE MHIE [id number] Memoria 10:00:00 10:00:00 03 l [facility] 2015-07-10 2015-07-10 Outpatient MHIE MHIE [id number] Memoria 11:20:00 11:20:00 02 jamshid [place] 2015-05-17 2015-05-17 Outpatient MHIE MHIE [id number] Memoria 11:40:00 11:40:00 01 jamshid [place] 2015-04-30 2015-04-30 Bedded [facility]Flavo [facility] [id number] Memoria 17:15:00 20:00:00 Outpatient r [place] 03 l [facility] 2015-04-30 2015-04-30 Outpatient Kamron, [facility] [id number] 11:15:00 14:00:00 Lucien Velasquez 2015-03-14 2015-03-15 Outpatient nullFlavo [facility] [id number] Memoria 20:09:00 05:59:00 r [place] 02 [facility] 2015-03-14 2015-03-14 Outpatient Kamron, [facility] [id number] 14:09:00 23:59:00 Lucien Velasquez 2015-02-23 2015-02-24 Outpt Diag nullFlavo [facility] [id number] Memoria 12:58:00 05:59:00 Services r Outpatient 00 l [facility] 2015-02-23 2015-02-23 Outpatient Ann Marie, MH29 MH29 [id number] 06:58:00 23:59:00 Sb Saunders 2015-01-30 2015-01-30 Outpatient MHIE MHIE [id number] Memoria 10:40:00 10:40:00 00 jamshid [place] 2013-11-30 2013-11-30 EC nullFlavo [facility] [id number] Memoria 16:56:00 22:05:00 Emergency r [place] 00 l [facility] [place] 2013-11-30 2013-11-30 Outpatient Desean Mosquera [id number] 11:56:00 17:05:00 [id number] 5.0.101 01 Results Test Description Test Time Test Comments Results Result Comments Source Urinalysis macro (dipstick) panel - Urine 2022-09-11 16:33:0 0 Test Item Value Reference Range Interpretation Comme nts Leukocytes (test code = Leukocytes) Negative Nitrite (test code = Nitrite) negative Urobilinogen (test code = Urobilinogen) .2 Protein (test code = Protein) Negative pH (test code = pH) 5.5 Blood (test code = Blood) Non-Hemolyzed: Trace Specific [place] (test code = Specific [place]) 1.015 Ketone (test code = Ketone) Negative Bilirubin (test code = Bilirubin) Negative Glucose (test code = Glucose) Negative Appearance (test code = Appearance) Clear Color (test code = Color) [facility]26 Test Item Value Reference Range Interpretation Comments RADRPT (test code EXAM:Chest x-ray, 1 = RADRPT) view(s).CLINICAL HX: - upper back pain.Age: 66 years.Gender: Female.TECHNIQUE:As above.Facility: [facility]. COMPARISON: Chest x-ray: 01/05/2018.FINDINGS:Support apparatus: None.Cardiac silhouette: Unremarkable.Mediastinum:-- Rena: Unremarkable.-- Other: None.Lungs:-- Consolidation: Negative.-- Pleural effusion: Negative.-- Pneumothorax: Negative.-- Other: Negative.Bones: Unremarkable.Other: None.IMPRESSION:1. No acute cardiopulmonary process. [id number]:36:00 Test Item Value Reference Range Interpretation Comments HS Troponin I 1 Hr (test code = HS no gt Troponin I 1 Hr) [id number] 17:36:00 Test Item Value Reference Range Interpretation Comments HS Troponin I 0 to 1 Hour Delta (test no gt code = HS Troponin I 0 to 1 Hour Delta) [id number] 16:34:00 Test Item Value Reference Range Interpretation Comments Glucose Lvl (test code = Glucose Lvl) 113 70-99 [place] [id number] 16:34:00 Test Item Value Reference Range Interpretation Comments BUN (test code = BUN) 7 7-22 [place] [address]-06-08 16:34:00 Test Item Value Reference Range Interpretation Comments Creatinine Lvl (test code = Creatinine 0.97 0.50-1.40 Lvl) [place] [id number] 16:34:00 Test Item Value Reference Range Interpretation Comments Sodium Lvl (test code = Sodium Lvl) 140 135-145 [place] [id number] 16:34:00 Test Item Value Reference Range Interpretation Comments Potassium Lvl (test code = Potassium 3.4 3.5-5.1 Lvl) [place] [address]-06-08 16:34:00 Test Item Value Reference Range Interpretation Comments Chloride Lvl (test code = Chloride Lvl) 107 95-109 [place] [address]-06-08 16:34:00 Test Item Value Reference Range Interpretation Comments CO2 (test code = CO2) 27 24-32 [place] [address]-06-08 16:34:00 Test Item Value Reference Range Interpretation Comments Calcium Lvl (test code = Calcium Lvl) 9.4 8.5-10.5 [place] [id number] 16:34:00 Test Item Value Reference Range Interpretation Comments Total Protein (test code = Total 7.5 6.4-8.4 Protein) [id number] 16:34:00 Test Item Value Reference Range Interpretation Comments Albumin Lvl (test code = Albumin Lvl) 3.9 3.5-5.0 [place] [address]-06-08 16:34:00 Test Item Value Reference Range Interpretation Comments ALT (test code = ALT) 37 See_Comment [Auto mated message] The system which ge nerated this result transmit fabi reference range : <=65. The reference range was not used to interpr et this result as bhavya l/abnormal. [place] 377893-06-08 16:34:00 Test Item Value Reference Range Interpretation Comments AST (test code = AST) 26 See_Comment [Auto mated message] The system which ge nerated this result transmit fabi reference range : <=37. The reference range was not used to interpr et this result as bhavya l/abnormal. [facility]uzabxsXAFXBNFPA3538-23-01 16:34:00 Test Item Value Reference Range Interpretation Comments Alk Phos (test code = Alk Phos) 75 39-136 [facility] CenterWciztqvZWWFGDWWG7920-19-90 16:34:00 Test Item Value Reference Range Interpretation Comments Bili Total (test code = Bili Total) 0.9 0.2-1.3 [facility] CenterPstfiosVTEFEOMNS7438-48-56 16:34:00 Test Item Value Reference Range Interpretation Comments AGAP (test code = AGAP) 9.4 10.0-20.0 [facility] CenterQwcsqnlMAHIJMYRL5930-00-47 16:34:00 Test Item Value Reference Range Interpretation Comments B/C Ratio (test code = B/C Ratio) 7 1 6-25 [place] 377893-06-08 16:34:00 Test Item Value Reference Range Interpretation Comments Globulin (test code = Globulin) 3.6 2.7-4.2 [facility] CenterSbkbusaTDORBFZUC2334-46-70 16:34:00 Test Item Value Reference Range Interpretation Comments A/G Ratio (test code = A/G Ratio) 1.1 1 0.7-1.6 [place] 377893-06-08 16:34:00 Test Item Value Reference Range Interpretation Comments eGFR (test code = eGFR) 65 [facility] CenterYaoyaqnIIAMWMHGQ6391-73-90 16:34:00 Test Item Value Reference Range Interpretation Comments HS Troponin I Baseline (test code = HS no gt Troponin I Baseline) [facility] CenterQcovufxPQLNUQEHI2552-70-67 16:34:00 Test Item Value Reference Range Interpretation Comments Lipase Lvl (test code = Lipase Lvl) 39 13-77 [facility] DistrictFevbtamNRWGYMNTJA7184-82-92 16:34:00 Test Item Value Reference Range Interpretation Comments WBC (test code = WBC) 6.1 3.7-10.4 [place] 946153-06-08 16:34:00 Test Item Value Reference Range Interpretation Comments RBC (test code = RBC) 5.40 4.20-5.40 [place] [address]-06-08 16:34:00 Test Item Value Reference Range Interpretation Comments Hgb (test code = Hgb) 16.3 12.0-16.0 [place] [address]497-06-08 16:34:00 Test Item Value Reference Range Interpretation Comments Hct (test code = Hct) 48.8 36.0-48.0 [place] 20497-06-08 16:34:00 Test Item Value Reference Range Interpretation Comments MCV (test code = MCV) 90.4 80.0-98.0 [place] 20[address]-06-08 16:34:00 Test Item Value Reference Range Interpretation Comments MCH (test code = MCH) 30.2 pg 27.0-31.0 [place] 20497-06-08 16:34:00 Test Item Value Reference Range Interpretation Comments MCHC (test code = MCHC) 33.4 32.0-36.0 [place] 946153-06-08 16:34:00 Test Item Value Reference Range Interpretation Comments RDW (test code = RDW) 14.1 11.5-14.5 [place] [address]-06-08 16:34:00 Test Item Value Reference Range Interpretation Comments Platelet (test code = Platelet) 221 133-450 [facility] DistrictZxnagpnYHIWFDJLOT5998-59-50 16:34:00 Test Item Value Reference Range Interpretation Comments MPV (test code = MPV) 9.3 7.4-10.4 [place] [address]-06-08 16:34:00 Test Item Value Reference Range Interpretation Comments Segs (test code = Segs) 61.6 45.0-75.0 [place] [address]-06-08 16:34:00 Test Item Value Reference Range Interpretation Comments Lymphocytes (test code = Lymphocytes) 29.1 20.0-40.0 [place] [address]-06-08 16:34:00 Test Item Value Reference Range Interpretation Comments Monocytes (test code = Monocytes) 7.4 2.0-12.0 [place] 20497-06-08 16:34:00 Test Item Value Reference Range Interpretation Comments Eosinophils (test code = 1.0 See_Comment [A utomated message] The Eosinophils) system which ge nerated this result tra nsmitted reference range : <=4.0. The reference r theron was not used to int erpret this result as normal/abnormal . [place] 946153-06-08 16:34:00 Test Item Value Reference Range Interpretation Comments Basophils (test code = 0.9 See_Comment [Aut omated message] The Basophils) system which ge nerated this result tra nsmitted reference range : <=1.0. The reference r theron was not used to int erpret this result as normal/abnormal . [place] 946153-06-08 16:34:00 Test Item Value Reference Range Interpretation Comments Neutrophils # (test code = Neutrophils 3.8 1.5-8.1 #) [facility] DistrictZemxqhuGRAVENWPQJ0185-92-78 16:34:00 Test Item Value Reference Range Interpretation Comments Lymphocytes # (test code = Lymphocytes 1.8 1.0-5.5 #) [facility] DistrictLdmmuxcJVHFDPRYVK0804-10-11 16:34:00 Test Item Value Reference Range Interpretation Comments Monocytes # (test code 0.5 See_Comment [Aut omated message] The = Monocytes #) system which generated this result tra nsmitted reference range : <=0.8. The reference r theron was not used to int erpret this result as normal/abnormal . [facility] DistrictIawmxdpQLXHTLSMGV5584-42-97 16:34:00 Test Item Value Reference Range Interpretation Comments Eosinophils # (test code 0.1 See_Comment [A utomated message] The = Eosinophils #) system whic h generated this result tra nsmitted reference range : <=0.5. The reference r theron was not used to int erpret this result as normal/abnormal . [facility] DistrictAqotrktIQIGQSFUCN0833-38-19 16:34:00 Test Item Value Reference Range Interpretation Comments Basophils # (test code 0.1 See_Comment [Aut omated message] The = Basophils #) system which generated this result tra nsmitted reference range : <=0.2. The reference r theron was not used to int erpret this result as normal/abnormal . [facility]2023-06-08 16:34:00 Test Item Value Reference Range Interpretation Comments UA Color (test code = Light Yellow UA Color) *NA*(09/04/22 11:34 AM) [facility] AND [id number] 16:34:00 Test Item Value Reference Range Interpretation Comments UA Turbidity (test code = Clear (09/04/22 11:34 UA Turbidity) AM) [facility] AND [id number] 16:34:00 Test Item Value Reference Range Interpretation Comments UA Spec Grav (test code = UA Spec 1.004 1 Grav) [facility] AND [id number] 16:34:00 Test Item Value Reference Range Interpretation Comments UA pH (test code = UA pH) 6.0 1 5.0-8.0 [facility] AND [id number] 16:34:00 Test Item Value Reference Range Interpretation Comments UA Protein (test code Negative (09/04/22 11:34 = UA Protein) AM) [facility] AND [id number] 16:34:00 Test Item Value Reference Range Interpretation Comments UA Glucose (test code Negative *NA*(09/04/22 = UA Glucose) 11:34 AM) [facility] AND [id number] 16:34:00 Test Item Value Reference Range Interpretation Comments UA Ketones (test code Negative *NA*(09/04/22 = UA Ketones) 11:34 AM) [facility] AND [id number] 16:34:00 Test Item Value Reference Range Interpretation Comments UA Bili (test code = Negative *NA*(09/04/22 UA Bili) 11:34 AM) [facility] AND [id number] 16:34:00 Test Item Value Reference Range Interpretation Comments UA Blood (test code = Small *ABN*(09/04/22 UA Blood) 11:34 AM) [facility] AND [id number] 16:34:00 Test Item Value Reference Range Interpretation Comments UA Urobilinogen (test code = UA <=1.0 mg/dL 0.1-1.0 Urobilinogen) [facility] AND [id number] 16:34:00 Test Item Value Reference Range Interpretation Comments UA Nitrite (test code Negative (09/04/22 11:34 = UA Nitrite) AM) [facility] [id number] 16:34:00 Test Item Value Reference Range Interpretation Comments UA Leuk Est (test Negative (09/04/22 11:34 code = UA Leuk Est) AM) [facility] [id number] 16:34:00 Test Item Value Reference Range Interpretation Comments UA Ascorbic Acid (test Negative 3*NA*(09/04/22 code = UA Ascorbic 11:34 AM) Acid) [facility] AND [id number] 16:34:00 Test Item Value Reference Range Interpretation Comments UA Sq Epi (test code = UA Sq Occasional /LPF Epi) [facility] [id number] 16:34:00 Test Item Value Reference Range Interpretation Comments UA WBC (test code = no gt See_Comment [Automa fabi message] The UA WBC) system which ge nerated this result transmit fabi reference range : <=5. The reference range was not used to interpr et this result as bhavya l/abnormal. [facility] AND [id number] 16:34:00 Test Item Value Reference Range Interpretation Comments UA RBC (test code = 1 See_Comment [Automa fabi message] The UA RBC) system which ge nerated this result transmit fabi reference range : <=2. The reference range was not used to interpr et this result as bhavya l/abnormal. [facility] [id number] 16:34:00 Test Item Value Reference Range Interpretation Comments UA Bacteria (test code = UA Moderate /HPF Bacteria) [facility] [id number] 16:34:00 Test Item Value Reference Range Interpretation Comments UA Mucus (test code = UA Mucus) Few /LPF [facility] Ag [Presence] in Respiratory specimen by Rapid swotdfasjke3745-20-68 09:52:00 Test Item Value Reference Range Interpretation Comments SARS CoV 2 (test code = SARS CoV 2) negative [facility] - Urine 2022-03-27 09:31:00 Test Item Value Reference Range Interpretation Comments Nitrite (test code = negative Nitrite) Urobilinogen (test code = .2 Urobilinogen) Protein (test code = Negative Protein) pH (test code = pH) 5.0 Blood (test code = Blood) Non-Hemolyzed: Moderate Specific [place] (test 1.015 code = Specific [place]) Ketone (test code = Negative Ketone) Bilirubin (test code = Negative Bilirubin) Glucose (test code = Negative Glucose) Appearance (test code = Clear Appearance) Color (test code = Color) Pale Yellow Leukocytes (test code = Negative Leukocytes) [facility] Clinicsrapid flu (A+B)2022-03-27 09:29:00 Test Item Value Reference Range Interpretation Comments FLU A (test code = FLU A) negative FLU B (test code = FLU B) negative [facility] ClinicsCOVID 19 INHOUSE [id number] 13:24:00 Test Item Value Reference Range Interpretation Comments COVID 19 INHOUSE AG NEGATIVE Negative Per manu facturer, (test code = negative result s should [id number]) be treated aspr esumptive and, if inconsi [...] and symptoms co nsistent with COVID-19. PROTHROMBIN [id number] 12:35:00 Test Item Value Reference Range Interpretation [...] (to prevent recurrent infar ct). THROMBOPLASTIN TIME [id number] 12:35:00 Test Item Value Reference Range Interpretation Comments THROMBOPLASTIN TIME PARTIAL 32.1 SECONDS 26-35 N (test code = PTT) BASIC METABOLIC [id number] 11:27:00 Test Item Value Reference Range Interpretation [...] CA) 9.4 MG/DL 8.5-10.1 N CBC W/AUTO [id number] 11:16:00 Test Item Value Reference Range Interpretation [...] code NO DIFF/SCN CRITERIA = MDIFF) URINALYSIS [id number] 10:02:00 Test Item Value Reference Range Interpretation [...] Specimen Type: Clean Catch- XR CHEST 1 [id number] 09:57:00 [facility] 1955 Sex: F Name: BOZENA MARSH [facility] : 1955 Age/S: 66 / F [address] Unit #: [id number] Loc: [place] [address] Phys: Gama Gabriel MD Acct: [id number] Dis Date: Status: PRE [facility] [place] #:[phone] Exam Date: 12/27/2021 0957 FAX #: Reason: PREOP EXAMS: CPT: [id number] XR CHEST 1 V 42686 Fluoro Time: DAP (Gy m2): Air Kerma [...] MARSH : 1955 Age/S: 66 / F [address] Unit #: [id number] Loc: [place] [address] Phys: Gama Gabriel MD Acct: [id number] Dis Date: Status: PRE SDC PHONE #: [phone] Exam Date: 12/27/2021956 FAX #: Reason: PREOP EXAMS: CPT: [id number] XR CHEST 1 V 05527 Fluoro Time: DAP (Gy m2): Air Kerma (mGy): (Continued) Technologist: Enedelia Salter, RT(R) Trnscb Date/Time: 12/27/2021 (956) t.SDR.HPD Orig Print D/T: S: 12/27/2021 (100) PAGE 2 Signed Report Urinalysis macro (dipstick) panel - [id number] 15:03:00 Test Item Value Reference Range Interpretation Comments Leukocytes (test code = Leukocytes) Small Nitrite (test code = Nitrite) negative Urobilinogen (test code = .2 Urobilinogen) Protein (test code = Protein) Trace pH (test code = pH) 7.0 Blood (test code = Blood) Moderate Specific [place] (test code = 1.015 Specific [place]) Ketone (test code = Ketone) Trace Bilirubin (test code = Bilirubin) Negative Glucose (test code = Glucose) Negative Appearance (test code = Appearance) Turbid Color (test code = Color) [facility] - Urine 2021-10-21 15:03:00 Test Item Value Reference Range Interpretation Comments Leukocytes (test code = Leukocytes) Small Nitrite (test code = Nitrite) negative Urobilinogen (test code = .2 Urobilinogen) Protein (test code = Protein) Trace pH (test code = pH) 7.0 Blood (test code = Blood) Moderate Specific [place] (test code = 1.015 Specific [place]) Ketone (test code = Ketone) Trace Bilirubin (test code = Bilirubin) Negative Glucose (test code = Glucose) Negative Appearance (test code = Appearance) Turbid Color (test code = Color) [facility], [id number] 14:56:00 Test Item Value Reference Range Interpretation Comments Strep (test code = Strep) negative [facility], [id number] 14:56:00 Test Item Value Reference Range Interpretation Comments Strep (test code = Strep) negative [facility]-CoV-2 (COVID-19) Ag [Presence] in Respiratory specimen by Rapid [id number] 14:55:00 Test Item Value Reference Range Interpretation Comments SARS CoV 2 (test code = SARS CoV 2) negative [facility]-CoV-[facility] (COVID-19) Ag [Presence] in Respiratory specimen by Rapid zllqlgrfcaa2484-33-28 14:55:00 Test Item Value Reference Range Interpretation Comments SARS CoV 2 (test code = SARS CoV 2) negative [facility] Hospital[facility] Quantitative Duodenal Aspirate 2021-10-14 14:43:00 Test Item Value Reference Range Interpretation Comments Culture: Quantitative No Growth , aerobic Duodenal Aspirate (test culture No Anaerobes code = Culture: Isolated After 2 Days Quantitative Duodenal Aspirate) [facility] urinalysis [id number] 19:36:00 Test Item Value Reference Range Interpretation Comments Color urine, POC (test Yellow code = 5481873) Clarity urine, POC (test Clear code = 8654174) Glucose urine, POC (test Negative Negative code = 5152836) Bilirubin urine, POC Negative Negative (test code = 6577525) Ketones urine, POC (test Negative Negative code = 8365982) Specific gravity urine, 1.005-1.030 POC (test code = 0155111) Blood urine, POC (test Trace Negative A code = 0028599) pH urine, POC (test code See_Comment [A utomated message] = 5408676) The system [employer] generated this result transmitted ref erence range: 5.0, 5.5 , 6.0, 6.5, 7.0, 7.5, 8.0, 8.5. The refere nce range was not u sed to interpret this result as normal/abnor mal. Protein urine, POC (test Negative Negative code = 3967855) Urobilinogen urine, POC <2.0 See_Comment [Au tomated message] (test code = 4670695) The sy stem which generated this result transmitted ref erence range: <=2.0. T he reference range was not used to int erpret this result as normal/abnormal . Nitrite urine, POC (test Negative Negative code = 0890966) Leukocyte esterase Negative Negative urine, POC (test code = 4298966) Lab Interpretation (test Abnormal code = 09544-5) [facility] BLADDER SCAN/[id number] 19:36:00 Test Item Value Reference Range Interpretation Comments Volume (test code = 2345173) [facility] urinalysis [id number] 19:36:00 Test Item Value Reference Range Interpretation Comments Color urine, POC (test Yellow code = 1644818) Clarity urine, POC (test Clear code = 1362343) Glucose urine, POC (test Negative Negative code = 9557653) Bilirubin urine, POC Negative Negative (test code = 9516877) Ketones urine, POC (test Negative Negative code = 5969381) Specific gravity urine, 1.010 1.005-1.030 POC (test code = 5473782) Blood urine, POC (test Trace Negative A code = 7173919) pH urine, POC (test code 6.0 See_Comment [A utomated message] = 0426344) The system [employer] generated this result transmitted ref erence range: 5.0, 5.5 , 6.0, 6.5, 7.0, 7.5, 8.0, 8.5. The refere nce range was not u sed to interpret this result as normal/abnor mal. Protein urine, POC (test Negative Negative code = 7858907) Urobilinogen urine, POC <2.0 <=2.0 (test code = 2352865) Nitrite urine, POC (test Negative Negative code = 5098328) Leukocyte esterase Negative Negative urine, POC (test code = 4329324) Lab Interpretation (test Abnormal code = 32740-6) [facility] BLADDER SCAN/[id number] 19:36:00 Test Item Value Reference Range Interpretation Comments Volume (test code = 5958394) 28 [facility] urinalysis [id number] 19:36:00 Test Item Value Reference Range Interpretation Comments Color urine, POC (test Yellow code = 7724612) Clarity urine, POC (test Clear code = 8146626) Glucose urine, POC (test Negative Negative code = 4694461) Bilirubin urine, POC Negative Negative (test code = 8800261) Ketones urine, POC (test Negative Negative code = 4603123) Specific gravity urine, 1.010 1.005-1.030 POC (test code = 1991284) Blood urine, POC (test Trace Negative A code = 5886697) pH urine, POC (test code 6.0 See_Comment [A utomated message] = 2948057) The system [employer] generated this result transmitted ref erence range: 5.0, 5.5 , 6.0, 6.5, 7.0, 7.5, 8.0, 8.5. The refere nce range was not u sed to interpret this result as normal/abnor mal. Protein urine, POC (test Negative Negative code = 5533617) Urobilinogen urine, POC <2.0 <=2.0 (test code = 3085917) Nitrite urine, POC (test Negative Negative code = 8143542) Leukocyte esterase Negative Negative urine, POC (test code = 4451130) Lab Interpretation (test Abnormal code = 63557-4) [facility] BLADDER SCAN/[id number] 19:36:00 Test Item Value Reference Range Interpretation Comments Volume (test code = 2223311) 28 [facility] urinalysis [id number] 19:36:00 Test Item Value Reference Range Interpretation Comments Color urine, POC (test Yellow code = 0720416) Clarity urine, POC (test Clear code = 5322945) Glucose urine, POC (test Negative Negative code = 7717510) Bilirubin urine, POC Negative Negative (test code = 0162835) Ketones urine, POC (test Negative Negative code = 8444567) Specific gravity urine, 1.010 1.005-1.030 POC (test code = 4487056) Blood urine, POC (test Trace Negative A code = 7238996) pH urine, POC (test code 6.0 See_Comment [A utomated message] = 6852251) The system [employer] generated this result transmitted ref erence range: 5.0, 5.5 , 6.0, 6.5, 7.0, 7.5, 8.0, 8.5. The refere nce range was not u sed to interpret this result as normal/abnor mal. Protein urine, POC (test Negative Negative code = 4034936) Urobilinogen urine, POC <2.0 <=2.0 (test code = 5635731) Nitrite urine, POC (test Negative Negative code = 5642072) Leukocyte esterase Negative Negative urine, POC (test code = 4415677) Lab Interpretation (test Abnormal code = 06095-3) [facility] BLADDER SCAN/[id number] 19:36:00 Test Item Value Reference Range Interpretation Comments Volume (test code = 2624779) 28 [facility] urinalysis [id number] 19:36:00 Test Item Value Reference Range Interpretation Comments Color urine, POC (test Yellow code = 7390432) Clarity urine, POC (test Clear code = 7529457) Glucose urine, POC (test Negative Negative code = 6083664) Bilirubin urine, POC Negative Negative (test code = 8959617) Ketones urine, POC (test Negative Negative code = 6074005) Specific gravity urine, 1.010 1.005-1.030 POC (test code = 9011111) Blood urine, POC (test Trace Negative A code = 4275170) pH urine, POC (test code 6.0 See_Comment [A utomated message] = 1283560) The system [employer] generated this result transmitted ref erence range: 5.0, 5.5 , 6.0, 6.5, 7.0, 7.5, 8.0, 8.5. The refere nce range was not u sed to interpret this result as normal/abnor mal. Protein urine, POC (test Negative Negative code = 0228343) Urobilinogen urine, POC <2.0 <=2.0 (test code = 3953175) Nitrite urine, POC (test Negative Negative code = 2694380) Leukocyte esterase Negative Negative urine, POC (test code = 4085393) Lab Interpretation (test Abnormal code = 88266-5) [facility] BLADDER SCAN/[id number] 19:36:00 Test Item Value Reference Range Interpretation Comments Volume (test code = 6620286) 28 [facility] urinalysis [id number] 19:36:00 Test Item Value Reference Range Interpretation Comments Color urine, POC (test Yellow code = 2881987) Clarity urine, POC (test Clear code = 0892997) Glucose urine, POC (test Negative Negative code = 3485472) Bilirubin urine, POC Negative Negative (test code = 4085646) Ketones urine, POC (test Negative Negative code = 0903358) Specific gravity urine, 1.005-1.030 POC (test code = 1492538) Blood urine, POC (test Trace Negative A code = 1453172) pH urine, POC (test code See_Comment [A utomated message] = 3122015) The system [employer] generated this result transmitted ref erence range: 5.0, 5.5 , 6.0, 6.5, 7.0, 7.5, 8.0, 8.5. The refere nce range was not u sed to interpret this result as normal/abnor mal. Protein urine, POC (test Negative Negative code = 2917058) Urobilinogen urine, POC <2.0 See_Comment [Au tomated message] (test code = 8244994) The sy stem which generated this result transmitted ref erence range: <=2.0. T he reference range was not used to int erpret this result as normal/abnormal . Nitrite urine, POC (test Negative Negative code = 6135986) Leukocyte esterase Negative Negative urine, POC (test code = 0997042) Lab Interpretation (test Abnormal code = 46232-4) [facility] BLADDER SCAN/[id number] 19:36:00 Test Item Value Reference Range Interpretation Comments Volume (test code = 6236180) [facility] urinalysis [id number] 19:36:00 Test Item Value Reference Range Interpretation Comments Color urine, POC (test Yellow code = 7907739) Clarity urine, POC (test Clear code = 0549370) Glucose urine, POC (test Negative Negative code = 3971446) Bilirubin urine, POC Negative Negative (test code = 2678042) Ketones urine, POC (test Negative Negative code = 3230446) Specific gravity urine, 1.005-1.030 POC (test code = 5363584) Blood urine, POC (test Trace Negative A code = 0867328) pH urine, POC (test code See_Comment [A utomated message] = 8398640) The system [employer] generated this result transmitted ref erence range: 5.0, 5.5 , 6.0, 6.5, 7.0, 7.5, 8.0, 8.5. The refere nce range was not u sed to interpret this result as normal/abnor mal. Protein urine, POC (test Negative Negative code = 2341297) Urobilinogen urine, POC <2.0 See_Comment [Au tomated message] (test code = 2509080) The sy stem which generated this result transmitted ref erence range: <=2.0. T he reference range was not used to int erpret this result as normal/abnormal . Nitrite urine, POC (test Negative Negative code = 6463224) Leukocyte esterase Negative Negative urine, POC (test code = 8978288) Lab Interpretation (test Abnormal code = 44466-2) [facility] BLADDER SCAN/[id number] 19:36:00 Test Item Value Reference Range Interpretation Comments Volume (test code = 1518181) [facility] urinalysis [id number] 19:36:00 Test Item Value Reference Range Interpretation Comments Color urine, POC (test Yellow code = 3080878) Clarity urine, POC (test Clear code = 4098018) Glucose urine, POC (test Negative Negative code = 3599859) Bilirubin urine, POC Negative Negative (test code = 2443301) Ketones urine, POC (test Negative Negative code = 3324874) Specific gravity urine, 1.005-1.030 POC (test code = 7065461) Blood urine, POC (test Trace Negative A code = 3782919) pH urine, POC (test code See_Comment [A utomated message] = 0663069) The system [employer] generated this result transmitted ref erence range: 5.0, 5.5 , 6.0, 6.5, 7.0, 7.5, 8.0, 8.5. The refere nce range was not u sed to interpret this result as normal/abnor mal. Protein urine, POC (test Negative Negative code = 3803208) Urobilinogen urine, POC <2.0 See_Comment [Au tomated message] (test code = 8316726) The sy stem which generated this result transmitted ref erence range: <=2.0. T he reference range was not used to int erpret this result as normal/abnormal . Nitrite urine, POC (test Negative Negative code = 0873602) Leukocyte esterase Negative Negative urine, POC (test code = 0330004) Lab Interpretation (test Abnormal code = 74553-3) [facility] BLADDER SCAN/[id number] 19:36:00 Test Item Value Reference Range Interpretation Comments Volume (test code = 4953390) [facility] urinalysis [id number] 19:36:00 Test Item Value Reference Range Interpretation Comments Color urine, POC (test Yellow code = 4203858) Clarity urine, POC (test Clear code = 9651641) Glucose urine, POC (test Negative Negative code = 1947169) Bilirubin urine, POC Negative Negative (test code = 9574835) Ketones urine, POC (test Negative Negative code = 0091520) Specific gravity urine, 1.005-1.030 POC (test code = 0101673) Blood urine, POC (test Trace Negative A code = 1015073) pH urine, POC (test code See_Comment [A utomated message] = 0369102) The system [employer] generated this result transmitted ref erence range: 5.0, 5.5 , 6.0, 6.5, 7.0, 7.5, 8.0, 8.5. The refere nce range was not u sed to interpret this result as normal/abnor mal. Protein urine, POC (test Negative Negative code = 0347994) Urobilinogen urine, POC <2.0 See_Comment [Au tomated message] (test code = 7179920) The sy stem which generated this result transmitted ref erence range: <=2.0. T he reference range was not used to int erpret this result as normal/abnormal . Nitrite urine, POC (test Negative Negative code = 5917501) Leukocyte esterase Negative Negative urine, POC (test code = 1377093) Lab Interpretation (test Abnormal code = 82794-1) [facility] BLADDER SCAN/[id number] 19:36:00 Test Item Value Reference Range Interpretation Comments Volume (test code = 0438358) [facility] urinalysis [id number] 19:36:00 Test Item Value Reference Range Interpretation Comments Color urine, POC (test Yellow code = 9326670) Clarity urine, POC (test Clear code = 5063533) Glucose urine, POC (test Negative Negative code = 2480728) Bilirubin urine, POC Negative Negative (test code = 9025108) Ketones urine, POC (test Negative Negative code = 7236353) Specific gravity urine, 1.005-1.030 POC (test code = 1009156) Blood urine, POC (test Trace Negative A code = 0214969) pH urine, POC (test code See_Comment [A utomated message] = 2718740) The system [employer] generated this result transmitted ref erence range: 5.0, 5.5 , 6.0, 6.5, 7.0, 7.5, 8.0, 8.5. The refere nce range was not u sed to interpret this result as normal/abnor mal. Protein urine, POC (test Negative Negative code = 9319649) Urobilinogen urine, POC <2.0 See_Comment [Au tomated message] (test code = 0832398) The sy stem which generated this result transmitted ref erence range: <=2.0. T he reference range was not used to int erpret this result as normal/abnormal . Nitrite urine, POC (test Negative Negative code = 3689868) Leukocyte esterase Negative Negative urine, POC (test code = 4274896) Lab Interpretation (test Abnormal code = 85103-5) [facility] BLADDER SCAN/[id number] 19:36:00 Test Item Value Reference Range Interpretation Comments Volume (test code = 0144772) [facility] by [id number] 00:00:00 Test Item Value Reference Range Interpretation Comments Bacteria identified in Urine by no growth Culture (test code = 630-4) [facility] 2021-07-24 00:00:00 Test Item Value Reference Range Interpretation Comments Bacteria identified in Urine by no growth Culture (test code = 630-4) [facility] [id number] 00:00:00 Test Item Value Reference Range Interpretation Comments written authorization (test code = comment written authorization) [facility] 2021-06-29 00:00:00 Test Item Value Reference Range Interpretation Comments Bacteria identified in Urine by no growth Culture (test code = 630-4) [facility] 2021-06-29 00:00:00 Test Item Value Reference Range Interpretation Comments Bacteria identified in Urine by no growth Culture (test code = 630-4) [facility] 2021-06-29 00:00:00 Test Item Value Reference Range Interpretation Comments Bacteria identified in Urine by no growth Culture (test code = 630-4) [facility] 2021-06-29 00:00:00 Test Item Value Reference Range Interpretation Comments Bacteria identified in Urine by no growth Culture (test code = 630-4) [facility] (dipstick) panel - Urine 2021-06-27 16:17:00 Test Item Value Reference Range Interpretation Comments Leukocytes (test code = Small Leukocytes) Nitrite (test code = negative Nitrite) Urobilinogen (test code = .2 Urobilinogen) Protein (test code = Negative Protein) pH (test code = pH) 7.5 Blood (test code = Blood) Non-Hemolyzed: Trace Specific [place] (test 1.000 code = Specific [place]) Ketone (test code = Negative Ketone) Bilirubin (test code = Negative Bilirubin) Glucose (test code = Negative Glucose) Appearance (test code = Clear Appearance) Color (test code = Color) Pale Yellow [facility]) panel - Urine 2021-06-27 16:17:00 Test Item Value Reference Range Interpretation Comments Leukocytes (test code = Small Leukocytes) Nitrite (test code = negative Nitrite) Urobilinogen (test code = .2 Urobilinogen) Protein (test code = Negative Protein) pH (test code = pH) 7.5 Blood (test code = Blood) Non-Hemolyzed: Trace Specific [place] (test 1.000 code = Specific [place]) Ketone (test code = Negative Ketone) Bilirubin (test code = Negative Bilirubin) Glucose (test code = Negative Glucose) Appearance (test code = Clear Appearance) Color (test code = Color) Pale Yellow [facility] W Auto Differential panel - [id number] 00:00:00 Test Item Value Reference Range Interpretation [...] = 706-2) immature cells (test code = classroom assistant immature cells) Neutrophils [#/volume] in Blood 3.7 [...] Blood by Automated count (test code = 16163-2) Immature granulocytes 0.0 x10e3/uL 0.0-0.1 [#/volume] in Blood by Automated count (test code = 72734-1) Nucleated erythrocytes/100 classroom assistant leukocytes [Ratio] in Blood by Automated count (test code = 35558-7) Morphology [Interpretation] in classroom assistant Blood Narrative (test code = 36813-7) [facility] - Serum or [id number] 00:00:00 Test Item Value Reference Range Interpretation [...] in Serum or Plasma (test code = 2028-9) Calcium [Mass/volume] in Serum 10.0 mg/dL 8.7-10.3 or Plasma (test code = 18091-0) Protein [Mass/volume] in Serum 6.5 g/dL 6.0-8.5 or Plasma (test code = 2885-2) Albumin [Mass/volume] in Serum 4.4 g/dL 3.8-4.8 or Plasma (test code = 1751-7) Globulin [Mass/volume] in 2.1 g/dL 1.5-4.5 Serum by calculation (test code = 21204-0) Albumin/Globulin [Mass Ratio] 2.1 1.2-2.2 in Serum [...] Serum or Plasma (test code = 1742-6) [facility]in [Units/volume] in Serum or Plasma by Detection limit <= 0.005 mIU/[id number] 00:00:00 Test Item Value Reference Range Interpretation Comments Thyrotropin [Units/volume] in 2.820 uIU/mL 0.450-4.500 Serum or Plasma by Detection limit <= 0.005 mIU/L (test code = 71532-6) [facility] (T4[facility] free [Mass/volume] in Serum or [id number] 00:00:00 Test Item Value Reference Range Interpretation Comments Thyroxine (T4) free [Mass/volume] 1.04 NG/dL 0.82-1.77 in Serum or Plasma (test code = 3024-7) [facility] [id number] 00:00:00 Test Item Value Reference Range Interpretation Comments dear doctor, (test code = dear comment doctor,) [facility] 1996 [facility] - Serum or [id number] 00:00:00 Test Item Value Reference Range Interpretation [...] or Plasma by calculation (test code = 43102-4) Cholesterol in LDL [Mass/volume] in 156 mg/dL 0-99 H Serum or Plasma by calculation (test code = 87019-0) Laboratory comment [Text] in Report classroom assistant Narrative (test code = 16210-2) Cholesterol in LDL/Cholesterol in 3.0 ratio 0.0-3.2 HDL [Mass Ratio] in Serum or Plasma (test code = 66455-5) [facility]Hel[facility] pylori IgA and IgG and IgM [Interpretation] in Serum or [id number] 00:00:00 Test Item Value Reference Range Interpretation Comments Helicobacter pylori IgG Ab 0.45 index value 0.00-0.79 [Units/volume] in Serum by Immunoassay (test code = 5176-3) Helicobacter pylori IgA Ab <9.0 0.0-8.9 [Units/volume] in Serum (test code = 7901-2) Helicobacter pylori IgM Ab <9.0 0.0-8.9 [Units/volume] in Serum (test code = 7903-8) [facility]+Cyanocobalamin [Interpretation] in Serum or [id number] 00:00:00 Test Item Value Reference Range Interpretation Comments Cobalamin (Vitamin B12) 920 pg/mL 232-1245 [Mass/volume] in Serum or Plasma (test code = 2132-9) Folate [Mass/volume] in Serum or >20.0 >3.0 Plasma (test code = 2284-8) [facility]-Hydro[facility] D3+25-Hydroxyvitamin D2 [Mass/volume] in Serum or [id number] 00:00:00 Test Item Value Reference Range Interpretation Comments 25-Hydroxyvitamin 36.5 NG/mL 30.0-100.0 D3+25-Hydroxyvitamin D2 [Mass/volume] in Serum or Plasma (test code = 45820-7) [facility]Ferritin [Mass/volume] in Serum or Plasma 2021-06-25 00:00:00 Test Item Value Reference Range Interpretation Comments Ferritin [Mass/volume] in Serum or 96 NG/mL 15-150 Plasma (test code = 2276-4) [facility] macro (dipstick) panel - Urine 2021-04-09 13:17:00 Test Item Value Reference Range Interpretation Comments Leukocytes (test code = Small Leukocytes) Nitrite (test code = negative Nitrite) Urobilinogen (test code = .2 Urobilinogen) Protein (test code = Negative Protein) pH (test code = pH) 5.0 Blood (test code = Blood) Hemolyzed: Trace Specific [place] (test code 1.015 = Specific [place]) Ketone (test code = Ketone) Negative Bilirubin (test code = Negative Bilirubin) Glucose (test code = Negative Glucose) [facility] ([facility]OVID-19[facility] Ag [Presence] in Respiratory specimen by Rapid [id number] 16:26:00 Test Item Value Reference Range Interpretation Comments SARS CoV 2 (test code = SARS CoV 2) negative [facility]-CoV-2 (COVID-19) Ag [Presence] in Respiratory specimen by Rapid hllerpdkmiw4882-04-89 16:26:00 Test Item Value Reference Range Interpretation Comments SARS CoV 2 (test code = SARS CoV 2) negative [facility]-19[facility] Ag [Presence] in Respiratory specimen by Rapid [id number] 16:26:00 Test Item Value Reference Range Interpretation Comments SARS CoV 2 (test code = SARS CoV 2) negative [facility] ([facility]OVID-19) Ag [Presence] in Respiratory specimen by Rapid [id number] 16:26:00 Test Item Value Reference Range Interpretation Comments SARS CoV 2 (test code = SARS CoV 2) negative [facility] (A+B)2021-02-25 16:10:00 Test Item Value Reference Range Interpretation Comments FLU A (test code = FLU A) negative FLU B (test code = FLU B) [facility] 16:10:00 Test Item Value Reference Range Interpretation Comments FLU A (test code = FLU A) negative FLU B (test code = FLU B) [facility] (A+B)2021-02-25 16:10:00 Test Item Value Reference Range Interpretation Comments FLU A (test code = FLU A) negative FLU B (test code = FLU B) negative [facility] (A+B)2021-02-25 16:10:00 Test Item Value Reference Range Interpretation Comments FLU A (test code = FLU A) negative FLU B (test code = FLU B) [facility], [id number] 16:09:00 Test Item Value Reference Range Interpretation Comments Strep (test code = Strep) positive [facility], [id number] 16:09:00 Test Item Value Reference Range Interpretation Comments Strep (test code = Strep) positive [facility] strep group A, [id number] 16:09:00 Test Item Value Reference Range Interpretation Comments Strep (test code = Strep) positive [facility] strep group A, [id number] 16:09:00 Test Item Value Reference Range Interpretation Comments Strep (test code = Strep) positive [facility] HospitalHeterophile Ab [Presence] in Blood by [id number] 15:33:00 Test Item Value Reference Range Interpretation Comments Karnes (test code = Karnes) negative [facility] HospitalHeterophile Ab [Presence] in Blood by Utmazkvrikc3793-60-55 15:33:00 Test Item Value Reference Range Interpretation Comments Karnes (test code = Karnes) negative [facility]Iron and Iron binding capacity panel - Serum or [id number] 00:00:00 Test Item Value Reference Range Interpretation [...] Serum or Plasma (test code = 2502-3) [facility]Folate+Cyanocobalamin [Interpretation] in Serum or [id number] 00:00:00 Test Item Value Reference Range Interpretation Comments Cobalamin (Vitamin B12) 971 pg/mL 232-1245 [Mass/volume] in Serum or Plasma (test code = 2132-9) Folate [Mass/volume] in Serum or >20.0 >3.0 Plasma (test code = 2284-8) [facility] HospitalPhosphate [Mass/volume] in Serum or Plasma 2020-07-27 00:00:00 Test Item Value Reference Range Interpretation Comments Phosphate [Mass/volume] in Serum or 3.0 mg/dL 3.0-4.3 Plasma (test code = 2777-1) [facility] HospitalErythrocyte sedimentation rate by Westergren [id number] 00:00:00 Test Item Value Reference Range Interpretation Comments Erythrocyte sedimentation rate by 4 mm/HR 0-40 Westergren method (test code = 4537-7) [facility] HospitalMagnesium [Mass/volume] in Serum or Plasma 2020-07-27 00:00:00 Test Item Value Reference Range Interpretation Comments Magnesium [Mass/volume] in Serum or 2.2 mg/dL 1.6-2.3 Plasma (test code = 32607-4) [facility]Iron and Iron binding capacity panel - Serum or [id number] 00:00:00 Test Item Value Reference Range Interpretation [...] Serum or Plasma (test code = 2502-3) [facility]+Cyanocobalamin [Interpretation] in Serum or [id number] 00:00:00 Test Item Value Reference Range Interpretation Comments Cobalamin (Vitamin B12) 971 pg/mL 232-1245 [Mass/volume] in Serum or Plasma (test code = 2132-9) Folate [Mass/volume] in Serum or >20.0 >3.0 Plasma (test code = 2284-8) [facility]Ph[facility] [Mass/volume] in Serum or Plasma 2020-07-27 00:00:00 Test Item Value Reference Range Interpretation Comments Phosphate [Mass/volume] in Serum or 3.0 mg/dL 3.0-4.3 Plasma (test code = 2777-1) [facility] HospitalErythrocyte sedimentation rate by Westergren [id number] 00:00:00 Test Item Value Reference Range Interpretation Comments Erythrocyte sedimentation rate by 4 mm/HR 0-40 Westergren method (test code = 4537-7) [facility] HospitalMagn[facility] [Mass/volume] in Serum or Plasma 2020-07-27 00:00:00 Test Item Value Reference Range Interpretation Comments Magnesium [Mass/volume] in Serum or 2.2 mg/dL 1.6-2.3 Plasma (test code = 67335-9) [facility] [id number] 23:55:00 Test Item Value Reference Range Interpretation Comments UA Color (test code = Light Yellow UA Color) *NA*(01/11/20 6:55 PM) [facility] AND [id number] 23:55:00 Test Item Value Reference Range Interpretation Comments UA Turbidity (test code = Clear (01/11/20 6:55 UA Turbidity) PM) [facility] AND [id number] 23:55:00 Test Item Value Reference Range Interpretation Comments UA Spec Grav (test code = UA Spec 1.005 1 Grav) [facility] AND [id number] 23:55:00 Test Item Value Reference Range Interpretation Comments UA pH (test code = UA pH) 7.0 1 5.0-8.0 [facility] AND [id number] 23:55:00 Test Item Value Reference Range Interpretation Comments UA Protein (test code Negative (01/11/20 6:55 = [facility]A Protein) PM) [facility] [id number] 23:55:00 Test Item Value Reference Range Interpretation Comments UA Glucose (test code Negative *NA*(01/11/20 = UA Glucose) 6:55 PM) [facility] [id number] 23:55:00 Test Item Value Reference Range Interpretation Comments UA Ketones (test code Negative *NA*(01/11/20 = UA Ketones) 6:55 PM) [facility] [id number] 23:55:00 Test Item Value Reference Range Interpretation Comments UA Bili (test code = Negative *NA*(01/11/20 UA Bili) 6:55 PM) [facility] [id number] 23:55:00 Test Item Value Reference Range Interpretation Comments UA Blood (test code = Small *ABN*(01/11/20 UA Blood) 6:55 PM) [facility] [id number] 23:55:00 Test Item Value Reference Range Interpretation Comments UA Urobilinogen (test code = UA <=1.0 mg/dL 0.1-1.0 Urobilinogen) [facility] [id number] 23:55:00 Test Item Value Reference Range Interpretation Comments UA Nitrite (test code Negative (01/11/20 6:55 = UA Nitrite) PM) [facility] [id number] 23:55:00 Test Item Value Reference Range Interpretation Comments UA Leuk Est (test code Trace *ABN*(01/11/20 = UA Leuk Est) 6:55 PM) [facility] [id number] 23:55:00 Test Item Value Reference Range Interpretation Comments UA Sq Epi (test code = UA Sq Occasional /LPF Epi) [facility] [id number] 23:55:00 Test Item Value Reference Range Interpretation Comments UA WBC (test code = 5 See_Comment [Automa fabi message] The UA WBC) system which ge nerated this result transmit fabi reference range : <=5. The reference range was not used to interpr et this result as bhavya l/abnormal. [facility] [id number] 23:55:00 Test Item Value Reference Range Interpretation Comments UA RBC (test code = 1 See_Comment [Automa fabi message] The UA RBC) system which ge nerated this result transmit fabi reference range : <=2. The reference range was not used to interpr et this result as bhavya l/abnormal. [facility] [id number] 23:55:00 Test Item Value Reference Range Interpretation Comments UA Bacteria (test code = UA Occasional /HPF Bacteria) [facility] [id number] 23:40:00 Test Item Value Reference Range Interpretation Comments Troponin-I (test code no gt See_Comment [Auto mated message] The = Troponin-I) system which g enerated this result transmit fabi reference range : <=0.40. The reference r theron was not used to interpr et this result as bhavya l/abnormal. [facility] [employer] [id number] 23:40:00 Test Item Value Reference Range Interpretation Comments Glucose Lvl (test code = Glucose Lvl) 94 70-99 [facility] [employer] [id number] 23:40:00 Test Item Value Reference Range Interpretation Comments BUN (test code = BUN) 10 7-22 [facility] [employer] [id number] 23:40:00 Test Item Value Reference Range Interpretation Comments Creatinine Lvl (test code = Creatinine 0.93 0.50-1.40 Lvl) [facility] [employer] [id number] 23:40:00 Test Item Value Reference Range Interpretation Comments Sodium Lvl (test code = Sodium Lvl) 139 135-145 [facility] [employer] [id number] 23:40:00 Test Item Value Reference Range Interpretation Comments Potassium Lvl (test code = Potassium 3.6 3.5-5.1 Lvl) [facility] [employer] [id number] 23:40:00 Test Item Value Reference Range Interpretation Comments Chloride Lvl (test code = Chloride Lvl) 104 95-109 [facility] [employer] [id number] 23:40:00 Test Item Value Reference Range Interpretation Comments CO2 (test code = CO2) 28 24-32 [facility] [employer] [id number] 23:40:00 Test Item Value Reference Range Interpretation Comments Calcium Lvl (test code = Calcium Lvl) 9.4 8.5-10.5 [facility] [employer] [id number] 23:40:00 Test Item Value Reference Range Interpretation Comments Total Protein (test code = Total 7.2 6.4-8.4 Protein) [facility] [employer] [id number] 23:40:00 Test Item Value Reference Range Interpretation Comments Albumin Lvl (test code = Albumin Lvl) 3.7 3.5-5.0 [facility] [employer] [id number] 23:40:00 Test Item Value Reference Range Interpretation Comments ALT (test code = ALT) 28 See_Comment [Auto mated message] The system which ge nerated this result transmit fabi reference range : <=65. The reference range was not used to interpr et this result as bhavya l/abnormal. [facility] [employer] [id number] 23:40:00 Test Item Value Reference Range Interpretation Comments AST (test code = AST) 23 See_Comment [Auto mated message] The system which ge nerated this result transmit fabi reference range : <=37. The reference range was not used to interpr et this result as bhavya l/abnormal. [facility] [employer] [id number] 23:40:00 Test Item Value Reference Range Interpretation Comments Alk Phos (test code = Alk Phos) 78 39-136 [facility] [employer] [id number] 23:40:00 Test Item Value Reference Range Interpretation Comments Bili Total (test code = Bili Total) 1.1 0.2-1.3 [facility] [employer] [id number] 23:40:00 Test Item Value Reference Range Interpretation Comments AGAP (test code = AGAP) 10.6 10.0-20.0 [facility] [employer] [id number] 23:40:00 Test Item Value Reference Range Interpretation Comments B/C Ratio (test code = B/C Ratio) 11 1 6-25 [facility] [employer]2020-10-14 23:40:00 Test Item Value Reference Range Interpretation Comments Globulin (test code = Globulin) 3.5 2.7-4.2 [facility] [employer] [id number] 23:40:00 Test Item Value Reference Range Interpretation Comments A/G Ratio (test code = A/G Ratio) 1.1 1 0.7-1.6 [place] [id number] 23:40:00 Test Item Value Reference Range Interpretation Comments eGFR (test code = eGFR) 66 [place] [id number] 23:40:00 Test Item Value Reference Range Interpretation Comments Lipase Lvl (test code = Lipase Lvl) 139 73-393 [place] [id number] 23:40:00 Test Item Value Reference Range Interpretation Comments Magnesium Lvl (test code = Magnesium 2.1 1.8-2.4 Lvl) [place] [id number] 23:40:00 Test Item Value Reference Range Interpretation Comments WBC (test code = WBC) 8.8 3.7-10.4 [place] [id number] 23:40:00 Test Item Value Reference Range Interpretation Comments RBC (test code = RBC) 5.09 4.20-5.40 [place] [id number] 23:40:00 Test Item Value Reference Range Interpretation Comments Hgb (test code = Hgb) 15.6 12.0-16.0 [place] [address]-10-14 23:40:00 Test Item Value Reference Range Interpretation Comments Hct (test code = Hct) 45.2 36.0-48.0 [place] [address]-10-14 23:40:00 Test Item Value Reference Range Interpretation Comments MCV (test code = MCV) 88.8 80.0-98.0 [place] [address]-10-14 23:40:00 Test Item Value Reference Range Interpretation Comments MCH (test code = MCH) 30.7 pg 27.0-31.0 [place] [address]-10-14 23:40:00 Test Item Value Reference Range Interpretation Comments MCHC (test code = MCHC) 34.6 32.0-36.0 [place] [address]-10-14 23:40:00 Test Item Value Reference Range Interpretation Comments RDW (test code = RDW) 13.6 11.5-14.5 [place] 946150-10-14 23:40:00 Test Item Value Reference Range Interpretation Comments Platelet (test code = Platelet) 192 133-450 [facility]MnthdlzNUIGQWOJIX7057-57-74 23:40:00 Test Item Value Reference Range Interpretation Comments MPV (test code = MPV) 9.4 7.4-10.4 [facility] DistrictHorkldcVWKITZPFOO7676-13-82 23:40:00 Test Item Value Reference Range Interpretation Comments PT (test code = PT) 12.6 s 12.0-14.7 [facility] DistrictYvxwuyoICSHHNZLOC0842-86-44 23:40:00 Test Item Value Reference Range Interpretation Comments INR (test code = INR) 0.94 1 0.85-1.17 [facility] DistrictFsrtttfXNZDOTWBES4294-09-43 23:40:00 Test Item Value Reference Range Interpretation Comments PTT (test code = PTT) 23.7 s 22.9-35.8 [facility] DistrictZhtluxcHOUXLVDBGT6855-69-42 23:40:00 Test Item Value Reference Range Interpretation Comments Segs (test code = Segs) 67.2 45.0-75.0 [facility] DistrictQokdihlEWVYYKHLSS5516-26-90 23:40:00 Test Item Value Reference Range Interpretation Comments Lymphocytes (test code = Lymphocytes) 21.9 20.0-40.0 [facility] DistrictZidmeigYUIHUEBFDQ5312-27-45 23:40:00 Test Item Value Reference Range Interpretation Comments Monocytes (test code = Monocytes) 8.9 2.0-12.0 [facility] DistrictFavttakPEQGAIUGON4779-89-25 23:40:00 Test Item Value Reference Range Interpretation Comments Eosinophils (test code = 1.2 See_Comment [A utomated message] The Eosinophils) system which ge nerated this result tra nsmitted reference range : <=4.0. The reference r theron was not used to int erpret this result as normal/abnormal . [facility] DistrictYjejytdKMPUVVRYAC8214-76-03 23:40:00 Test Item Value Reference Range Interpretation Comments Basophils (test code = 0.8 See_Comment [Aut omated message] The Basophils) system which ge nerated this result tra nsmitted reference range : <=1.0. The reference r theron was not used to int erpret this result as normal/abnormal . [facility] DistrictIlmplueECKCIEFJVP7062-62-68 23:40:00 Test Item Value Reference Range Interpretation Comments Neutrophils # (test code = Neutrophils 5.9 1.5-8.1 #) [facility] DistrictDrhmhvdLIKWKUQTAR5293-79-24 23:40:00 Test Item Value Reference Range Interpretation Comments Lymphocytes # (test code = Lymphocytes 1.9 1.0-5.5 #) [facility] DistrictAduvijoHYAAGQMMLH4449-72-39 23:40:00 Test Item Value Reference Range Interpretation Comments Monocytes # (test code 0.8 See_Comment [Aut omated message] The = Monocytes #) system which generated this result tra nsmitted reference range : <=0.8. The reference r theron was not used to int erpret this result as normal/abnormal . [facility] DistrictBqlpztdGSOLRDWLFY6124-01-20 23:40:00 Test Item Value Reference Range Interpretation Comments Eosinophils # (test code 0.1 See_Comment [A utomated message] The = Eosinophils #) system whic h generated this result tra nsmitted reference range : <=0.5. The reference r theron was not used to int erpret this result as normal/abnormal . [facility] DistrictYjnnrzpLEMXUKGWSX4010-76-81 23:40:00 Test Item Value Reference Range Interpretation Comments Basophils # (test code 0.1 See_Comment [Aut omated message] The = Basophils #) system which generated this result tra nsmitted reference range : <=0.2. The reference r theron was not used to int erpret this result as normal/abnormal . [facility]NysovpfMRYD8123-74-57 11:22:00 RUN DATE: 01/01/18 [facility] - LAB *LIVE* PAGE 1 RUN TIME: 1122 Specimen Inquiry RUN USER: INTERFACE PATIENT: BOZENA MARSH LOC: EVA U #: [id number] AGE/SX: 62/F ROOM: RE12/31/17REG DR: Raz Gaspar III : 57 BED: DIS: STATUS: [facility] TLOC: SPEC #: [id number] RECD: 12/31/17 STATUS: HENRY DANNY #: [id number] SHYANN: 12/31/[address]: Raz Gaspar III, MD ENTERED: 12/31/17 SP TYPE: SURG OTHR DR: No Primary or Family PhysicianORDERED: SURG PATH LVL 1, SURG PATH LVL 4 COPIES TO: No Primary [place] [id number] [facility] [address] [place] [address] HISTOLOGY: TISSUE ID BLK PCS ANAIS LEV PROCEDURE DISPOSITION ____ ___ ___ ___ NASAL TURBINATE A 1 1 NASAL SEPTUM, N B 1 1 PROCEDURES: SURG PATH LVL 1 (01/01/18) SURG PATH LVL 4 (01/01/18) TISSUES: A.NASAL TURBINATE, NOS - BILATERAL INFERIOR TURBINATES B. NASAL SEPTUM, NOS - SEPTUM CPT CODES CPT CODE(S): 90038 , 75691 , , , , , FINAL DIAGNOSIS A. Inferior turbinate, bilateral, endoscopic sinus surgery: SINUS CONTENTS CONSISTENT WITH CHRONIC SINUSITIS B. Nasal septum, septoplasty: BONE AND CARTILAGE (GROSS ONLY) GROSS DESCRIPTION A. Bilateral inferior turbinates. Received in formalin are irregular fragments of sauceda-brown soft tissue admixed with dark brown blood clots, 2.7 x 1.8 x 1.0 cm in aggregate. [employer] sections submitted as A. B. Septum. Received in formalin are multiple irregular fragments of cartilage CONTINUED ON NEXT PAGE RUN DATE: 01/01/18 [facility] - LAB *LIVE* PAGE 2 RUN TIME: 112 Specimen Inquiry RUN USER: INTERFACE SPEC #: [id number] PATIENT: BOZENA MARSH #[id number] (Continued) GROSS DESCRIPTION (Continued) and bones, 5.0 x 3.5 x 0.7 cm in aggregate. The specimen is photographed for gross identification only. ba/nr Grossing performed at [facility] Pathology, [address], [address], [place] [address]. Barrel Assembler: Ralph Dash M.D. MICROSCOPIC MITCH CRIPTION A. Bilateral inferior turbinates. Fragments of respiratory epithelium lined mucosa. There are benign mucus glands and a chronic inflammatory infiltrate. Fragments of unremarkable cartilage andbone present. No evidence of malignancy. B. Septum. For gross identification only. /doug Signed SIGNATURE ON FILE MarkelafuaKel Thompson 01/01/18 1122 END OF REPORT CARDIAC [id number] 22:47:00 Test Item Value Reference Range Interpretation Comments Troponin-I (test code no gt See_Comment [Auto mated message] The = Troponin-I) system which g enerated this result transmit fabi reference range : <=0.40. The reference r theron was not used to interpr et this result as bhavya l/abnormal. [facility] CloudynCARDIAC [id number] 22:47:00 Test Item Value Reference Range Interpretation Comments CK MB (test code = CK MB) no gt 0.5-3.6 [facility] CloupiaannAd DynamoAC [id number] 22:47:00 Test Item Value Reference Range Interpretation Comments Total CK (test code = Total CK) 54 12-191 [facility] CloudynCARCGA EndowmentAC [id number] 22:47:00 Test Item Value Reference Range Interpretation Comments CK MB Index (test no gt See_Comment [Automate d message] The code = CK MB Index) system w [facility] generated this result transmit fabi reference range : <=2.5. The reference range was not used to interpr et this result as bhavya l/abnormal. [employer] [id number] 22:47:00 Test Item Value Reference Range Interpretation Comments Total Protein (test code = Total 7.0 6.4-8.4 Protein) [facility]2016-06-19 22:47:00 Test Item Value Reference Range Interpretation Comments eGFR (test code = eGFR) 71 [facility]2016-06-19 22:47:00 Test Item Value Reference Range Interpretation Comments Globulin (test code = Globulin) 3.3 2.0-4.0 [facility]2016-06-19 22:47:00 Test Item Value Reference Range Interpretation Comments A/G Ratio (test code = A/G Ratio) 1.1 0.7-1.6 [place] 022786-06-19 22:47:00 Test Item Value Reference Range Interpretation Comments Bili Total (test code = Bili Total) 0.8 0.2-1.3 [place] 022786-06-19 22:47:00 Test Item Value Reference Range Interpretation Comments Alk Phos (test code = Alk Phos) 77 39-136 [facility]2016-06-19 22:47:00 Test Item Value Reference Range Interpretation Comments AGAP (test code = AGAP) 12.7 10.0-20.0 [place] 022786-06-19 22:47:00 Test Item Value Reference Range Interpretation Comments B/C Ratio (test code = B/C Ratio) 18 6-25 [place] 022786-06-19 22:47:00 Test Item Value Reference Range Interpretation Comments Albumin Lvl (test code = Albumin Lvl) 3.7 3.5-5.0 [facility]2016-06-19 22:47:00 Test Item Value Reference Range Interpretation Comments ALT (test code = ALT) 24 See_Comment [Auto mated message] The system which ge nerated this result transmit fabi reference range : <=65. The reference range was not used to interpr et this result as bhavya l/abnormal. [place] 022786-06-19 22:47:00 Test Item Value Reference Range Interpretation Comments AST (test code = AST) 18 See_Comment [Auto mated message] The system which ge nerated this result transmit fabi reference range : <=37. The reference range was not used to interpr et this result as bhavya l/abnormal. [place] 022786-06-19 22:47:00 Test Item Value Reference Range Interpretation Comments Chloride Lvl (test code = Chloride Lvl) 108 95-109 [facility]2016-06-19 22:47:00 Test Item Value Reference Range Interpretation Comments Potassium Lvl (test code = Potassium 3.7 3.5-5.1 Lvl) [facility]2016-06-19 22:47:00 Test Item Value Reference Range Interpretation Comments CO2 (test code = CO2) 28 24-32 [facility]2016-06-19 22:47:00 Test Item Value Reference Range Interpretation Comments Calcium Lvl (test code = Calcium Lvl) 8.6 8.5-10.5 [facility]2016-06-19 22:47:00 Test Item Value Reference Range Interpretation Comments Sodium Lvl (test code = Sodium Lvl) 145 135-145 [facility]2016-06-19 22:47:00 Test Item Value Reference Range Interpretation Comments Creatinine Lvl (test code = Creatinine 0.90 0.50-1.40 Lvl) [facility]2016-06-19 22:47:00 Test Item Value Reference Range Interpretation Comments BUN (test code = BUN) 16 7-22 [facility]2016-06-19 22:47:00 Test Item Value Reference Range Interpretation Comments Glucose Lvl (test code = Glucose Lvl) 102 70-99 [facility] DistrictOcbwvcbPBPMGZEPNC2931-69-59 22:47:00 Test Item Value Reference Range Interpretation Comments WBC (test code = WBC) 8.8 3.7-10.4 [facility] DistrictKmcctlhANIEOEQSQE3799-51-88 22:47:00 Test Item Value Reference Range Interpretation Comments RBC (test code = RBC) 5.39 4.20-5.40 [facility] DistrictTyhahbgXZSAYECZVL1017-92-93 22:47:00 Test Item Value Reference Range Interpretation Comments MCV (test code = MCV) 88.0 80.0-98.0 [facility] DistrictLkytvjsKCDEAQZPGT7991-09-08 22:47:00 Test Item Value Reference Range Interpretation Comments Hgb (test code = Hgb) 15.6 12.0-16.0 [facility] DistrictYyztfkzVFFOBWPBEG9054-68-18 22:47:00 Test Item Value Reference Range Interpretation Comments MCH (test code = MCH) 29.0 pg 27.0-31.0 [facility] DistrictFvbimhbKEVRRLXKTD4862-31-02 22:47:00 Test Item Value Reference Range Interpretation Comments MPV (test code = MPV) 9.5 7.4-10.4 [facility] DistrictXrbbbrtVUXZJTYQYC6991-43-29 22:47:00 Test Item Value Reference Range Interpretation Comments Platelet (test code = Platelet) 242 133-450 [facility] DistrictLevxzkvBIYCFJGSWQ4126-28-85 22:47:00 Test Item Value Reference Range Interpretation Comments MCHC (test code = MCHC) 33.0 32.0-36.0 [facility] DistrictEoxesxgPGBHXPUAFX3324-03-52 22:47:00 Test Item Value Reference Range Interpretation Comments RDW (test code = RDW) 13.3 11.5-14.5 [facility] DistrictNovllbyFGUHLDVWBL6359-41-79 22:47:00 Test Item Value Reference Range Interpretation Comments Hct (test code = Hct) 47.5 36.0-48.0 [facility] DistrictEnutrdpPIHUSXUSJB0546-49-36 22:47:00 Test Item Value Reference Range Interpretation Comments Basophils (test code = 0.5 See_Comment [Aut omated message] The Basophils) system which ge nerated this result tra nsmitted reference range : <=1.0. The reference r theron was not used to int erpret this result as normal/abnormal . [facility] DistrictZfulabmCYYSCUVSHH7606-66-88 22:47:00 Test Item Value Reference Range Interpretation Comments Eosinophils (test code = 1.1 See_Comment [A utomated message] The Eosinophils) system which ge nerated this result tra nsmitted reference range : <=4.0. The reference r theron was not used to int erpret this result as normal/abnormal . [facility] DistrictTyyjugqYSXPHHZGKM3463-83-50 22:47:00 Test Item Value Reference Range Interpretation Comments Monocytes (test code = Monocytes) 6.3 2.0-12.0 [facility] DistrictPhmvtfqHZREYWYIZQ5238-20-50 22:47:00 Test Item Value Reference Range Interpretation Comments Segs (test code = Segs) 54.0 45.0-75.0 [facility] DistrictQvouxrgFMIDIYIIVY1657-26-98 22:47:00 Test Item Value Reference Range Interpretation Comments Lymphocytes (test code = Lymphocytes) 38.1 20.0-40.0 [facility] DistrictYayxxmaSMENCHODJG4241-10-44 22:47:00 Test Item Value Reference Range Interpretation Comments Basophils # (test code 0.0 See_Comment [Aut omated message] The = Basophils #) system which generated this result tra nsmitted reference range : <=0.2. The reference r theron was not used to int erpret this result as normal/abnormal . [facility] DistrictOnnfyddIWYWTIIIJW9302-91-78 22:47:00 Test Item Value Reference Range Interpretation Comments Eosinophils # (test code 0.1 See_Comment [A utomated message] The = Eosinophils #) system whic h generated this result tra nsmitted reference range : <=0.5. The reference r theron was not used to int erpret this result as normal/abnormal . [facility] DistrictBggduviHLIRNOFSXD6262-43-69 22:47:00 Test Item Value Reference Range Interpretation Comments Monocytes # (test code 0.6 See_Comment [Aut omated message] The = Monocytes #) system which generated this result tra nsmitted reference range : <=0.8. The reference r theron was not used to int erpret this result as normal/abnormal . [facility] DistrictOfdvnjbQSUVVZSLMJ0395-55-52 22:47:00 Test Item Value Reference Range Interpretation Comments Lymphocytes # (test code = Lymphocytes 3.4 1.0-5.5 #) [facility] DistrictIphtwyuEJJHWPYBIF4578-62-12 22:47:00 Test Item Value Reference Range Interpretation Comments Segs-Bands # (test code = Segs-Bands #) 4.7 1.5-8.1 [facility] AND [id number] 22:47:00 Test Item Value Reference Range Interpretation Comments UA Mucus (test code = None Seen (09/16/15 UA Mucus) 5:47 PM) [facility] AND [id number] 22:47:00 Test Item Value Reference Range Interpretation Comments UA Bacteria (test code = UA Occasional /HPF Bacteria) [facility] AND [id number] 22:47:00 Test Item Value Reference Range Interpretation Comments UA Nitrite (test code Negative (09/16/15 5:47 = UA Nitrite) PM) [facility] AND [id number] 22:47:00 Test Item Value Reference Range Interpretation Comments UA Glucose (test code Negative (09/16/15 5:47 = UA Glucose) PM) [facility] AND [id number] 22:47:00 Test Item Value Reference Range Interpretation Comments UA Sq Epi (test code = UA Sq Occasional /LPF Epi) [facility] [id number] 22:47:00 Test Item Value Reference Range Interpretation Comments UA WBC (test code = UA WBC) 0-2 /HPF [facility] [id number] 22:47:00 Test Item Value Reference Range Interpretation Comments UA RBC (test None Seen See_Comment [Automated mes nolan] code = UA RBC) (09/16/15 5:47 The system w hich PM) generated this result transmitted ref erence range: <=2. The reference range was not used to int erpret this result as normal/abnormal . [facility] AND [id number] 22:47:00 Test Item Value Reference Range Interpretation Comments Micro? (test code = Performed (09/16/15 5:47 Micro?) PM) [facility] [id number] 22:47:00 Test Item Value Reference Range Interpretation Comments UA Leuk Est (test Negative (09/16/15 5:47 code = UA Leuk Est) PM) [facility] [id number] 22:47:00 Test Item Value Reference Range Interpretation Comments UA Protein (test code Negative (09/16/15 5:47 = UA Protein) PM) [facility] AND [id number] 22:47:00 Test Item Value Reference Range Interpretation Comments UA pH (test code = UA pH) 6.0 1 5.0-8.0 [facility] AND [id number] 22:47:00 Test Item Value Reference Range Interpretation Comments UA Bili (test code = Negative *NA*(09/16/15 UA Bili) 5:47 PM) [facility] [id number] 22:47:00 Test Item Value Reference Range Interpretation Comments UA Ketones (test code Negative *NA*(09/16/15 = UA Ketones) 5:47 PM) [facility] [id number] 22:47:00 Test Item Value Reference Range Interpretation Comments UA Urobilinogen (test code = UA 0.2 0.1-1.0 Urobilinogen) [facility] [id number] 22:47:00 Test Item Value Reference Range Interpretation Comments UA Blood (test code = Trace *ABN*(09/16/15 UA Blood) 5:47 PM) [facility] AND [id number] 22:47:00 Test Item Value Reference Range Interpretation Comments UA Turbidity (test code = Clear (09/16/15 5:47 UA Turbidity) PM) [facility] AND [id number] 22:47:00 Test Item Value Reference Range Interpretation Comments UA Color (test code = Yellow *NA*(09/16/15 UA Color) 5:47 PM) [facility] AND [id number] 22:47:00 Test Item Value Reference Range Interpretation Comments UA Spec Grav (test code = UA Spec 1.025 1 Grav) [facility] AND [id number] 19:00:45 Test Item Value Reference Range Interpretation Comments UA Bacteria (test code = UA Occasional /HPF Bacteria) [facility] AND [id number] 19:00:45 Test Item Value Reference Range Interpretation Comments UA RBC (test code = 0-2 /HPF See_Comment [Automa fabi message] The UA RBC) system which ge nerated this result tra nsmitted reference range : <=2. The reference range was not used to interpr et this result as bhavya l/abnormal. [facility] AND [id number] 19:00:45 Test Item Value Reference Range Interpretation Comments UA Sq Epi (test code = UA Sq Epi) Few /LPF [facility] AND [id number] 19:00:45 Test Item Value Reference Range Interpretation Comments UA WBC (test code = UA WBC) 0-2 /HPF [facility] AND [id number] 19:00:45 Test Item Value Reference Range Interpretation Comments UA Bili (test code = Negative *NA*(11/30/13 UA Bili) 2:00 PM) [facility] AND [id number] 19:00:45 Test Item Value Reference Range Interpretation Comments UA Blood (test code = Trace *ABN*(11/30/13 UA Blood) 2:00 PM) [facility] AND [id number] 19:00:45 Test Item Value Reference Range Interpretation Comments UA Urobilinogen (test code = UA 0.2 0.1-1.0 Urobilinogen) [facility] AND [id number] 19:00:45 Test Item Value Reference Range Interpretation Comments UA pH (test code = UA pH) 6.0 1 5.0-8.0 [facility] AND [id number] 19:00:45 Test Item Value Reference Range Interpretation Comments UA Ketones (test code Negative *NA*(11/30/13 = UA Ketones) 2:00 PM) [facility] AND [id number] 19:00:45 Test Item Value Reference Range Interpretation Comments UA Protein (test code Negative (11/30/13 2:00 = UA Protein) PM) [facility] AND [id number] 19:00:45 Test Item Value Reference Range Interpretation Comments UA Glucose (test code Negative (11/30/13 2:00 = UA Glucose) PM) [facility] AND [id number] 19:00:45 Test Item Value Reference Range Interpretation Comments UA Turbidity (test code = Clear (11/30/13 2:00 UA Turbidity) PM) [facility] AND [id number] 19:00:45 Test Item Value Reference Range Interpretation Comments UA Spec Grav (test code = UA Spec 1.020 1 Grav) [facility] AND [id number] 19:00:45 Test Item Value Reference Range Interpretation Comments UA Color (test code = Yellow *NA*(11/30/13 2:00 UA Color) PM) [facility] AND [id number] 19:00:45 Test Item Value Reference Range Interpretation Comments UA Leuk Est (test Negative (11/30/13 2:00 code = UA Leuk Est) PM) [facility] AND [id number] 19:00:45 Test Item Value Reference Range Interpretation Comments UA Nitrite (test code Negative (11/30/13 2:00 = UA Nitrite) PM) [facility] [id number] 17:35:00 Test Item Value Reference Range Interpretation Comments B/C Ratio (test code = B/C Ratio) 16 6-25 [facility] [id number] 17:35:00 Test Item Value Reference Range Interpretation Comments AGAP (test code = AGAP) 14.0 10.0-20.0 [place] 022784-09-03 17:35:00 Test Item Value Reference Range Interpretation Comments Globulin (test code = Globulin) 3.9 2.0-4.0 [place] 022784-09-03 17:35:00 Test Item Value Reference Range Interpretation Comments A/G Ratio (test code = A/G Ratio) 1.1 0.7-1.6 [place] [address]-09-03 17:35:00 Test Item Value Reference Range Interpretation Comments eGFR (test code = eGFR) 71 [place] 022784-09-03 17:35:00 Test Item Value Reference Range Interpretation Comments ALT (test code = ALT) 31 See_Comment [Auto mated message] The system which ge nerated this result transmit fabi reference range : <=65. The reference range was not used to interpr et this result as bhavya l/abnormal. [place] [address]-09-03 17:35:00 Test Item Value Reference Range Interpretation Comments AST (test code = AST) 25 See_Comment [Auto mated message] The system which ge nerated this result transmit fabi reference range : <=37. The reference range was not used to interpr et this result as bhavya l/abnormal. [place] 022784-09-03 17:35:00 Test Item Value Reference Range Interpretation Comments Alk Phos (test code = Alk Phos) 93 39-136 [place] 022784-09-03 17:35:00 Test Item Value Reference Range Interpretation Comments Bili Total (test code = Bili Total) 0.9 0.2-1.3 [place] [address]-09-03 17:35:00 Test Item Value Reference Range Interpretation Comments Calcium Lvl (test code = Calcium Lvl) 9.5 8.5-10.5 [place] [address]-09-03 17:35:00 Test Item Value Reference Range Interpretation Comments Total Protein (test code = Total 8.0 6.4-8.4 Protein) [facility]2014-09-03 17:35:00 Test Item Value Reference Range Interpretation Comments Albumin Lvl (test code = Albumin Lvl) 4.1 3.5-5.0 [place] 022784-09-03 17:35:00 Test Item Value Reference Range Interpretation Comments CO2 (test code = CO2) 24 24-32 [facility]2014-09-03 17:35:00 Test Item Value Reference Range Interpretation Comments Chloride Lvl (test code = Chloride Lvl) 104 95-109 [facility]2014-09-03 17:35:00 Test Item Value Reference Range Interpretation Comments Creatinine Lvl (test code = Creatinine 0.9 0.5-1.4 Lvl) [facility]2014-09-03 17:35:00 Test Item Value Reference Range Interpretation Comments Sodium Lvl (test code = Sodium Lvl) 138 135-145 [facility]2014-09-03 17:35:00 Test Item Value Reference Range Interpretation Comments Potassium Lvl (test code = Potassium 4.0 3.5-5.1 Lvl) [facility]2014-09-03 17:35:00 Test Item Value Reference Range Interpretation Comments BUN (test code = BUN) 14 7-22 [facility]2014-09-03 17:35:00 Test Item Value Reference Range Interpretation Comments Glucose Lvl (test code = Glucose Lvl) 92 70-99 [facility]2014-09-03 17:35:00 Test Item Value Reference Range Interpretation Comments Lipase Lvl (test code = Lipase Lvl) 147 73-393 [facility]2014-09-03 17:35:00 Test Item Value Reference Range Interpretation Comments Amylase Lvl (test code = Amylase Lvl) 35 25-115 [facility]xlZTJDKMHLTW1110-48-16 17:35:00 Test Item Value Reference Range Interpretation Comments MCHC (test code = MCHC) 34.0 32.0-36.0 [facility]UtnbfkzXVOIFAVOXR2379-86-07 17:35:00 Test Item Value Reference Range Interpretation Comments RDW (test code = RDW) 12.7 11.5-14.5 [facility] DistrictHthkldfKVGAWQEOGP9900-44-37 17:35:00 Test Item Value Reference Range Interpretation Comments Platelet (test code = Platelet) 236 133-450 [facility] DistrictMlcqzkqZROQZKFAPN6693-42-57 17:35:00 Test Item Value Reference Range Interpretation Comments MPV (test code = MPV) 9.6 7.4-10.4 [facility] DistrictVpeydgjERHSALUHQH0777-60-15 17:35:00 Test Item Value Reference Range Interpretation Comments Hgb (test code = Hgb) 16.9 12.0-16.0 [facility] DistrictTtzncoyKYSOQGCRQZ3933-04-29 17:35:00 Test Item Value Reference Range Interpretation Comments WBC (test code = WBC) 7.1 3.7-10.4 [facility] DistrictKeowornGQFJYOBFPD4613-72-19 17:35:00 Test Item Value Reference Range Interpretation Comments RBC (test code = RBC) 5.64 4.20-5.40 [facility] DistrictEwqmnbzZNWLDVMXSH3893-18-61 17:35:00 Test Item Value Reference Range Interpretation Comments Hct (test code = Hct) 49.7 36.0-48.0 [facility] DistrictSzneahdCLAJXBXCDB9893-28-64 17:35:00 Test Item Value Reference Range Interpretation Comments MCH (test code = MCH) 29.9 pg 27.0-31.0 [place] 327094-09-03 17:35:00 Test Item Value Reference Range Interpretation Comments MCV (test code = MCV) 88.0 80.0-98.0 [facility] DistrictIfeqtqpYUZGFXWZLB4388-75-95 17:35:00 Test Item Value Reference Range Interpretation Comments Eosinophils # (test code 0.0 See_Comment [A utomated message] The = Eosinophils #) system whic h generated this result tra nsmitted reference range : <=0.5. The reference r theron was not used to int erpret this result as normal/abnormal . [facility] DistrictEezsocjSVSJTFSNQY6542-47-35 17:35:00 Test Item Value Reference Range Interpretation Comments Segs-Bands # (test code = Segs-Bands #) 4.8 1.5-8.1 [facility] DistrictGzaiqvvDAERWJQKSS5780-75-72 17:35:00 Test Item Value Reference Range Interpretation Comments Monocytes # (test code 0.4 See_Comment [Aut omated message] The = Monocytes #) system which generated this result tra nsmitted reference range : <=0.8. The reference r theron was not used to int erpret this result as normal/abnormal . [facility] DistrictYmphmacRGBWXDPNZX0851-28-81 17:35:00 Test Item Value Reference Range Interpretation Comments Basophils (test code = 0.5 See_Comment [Aut omated message] The Basophils) system which ge nerated this result tra nsmitted reference range : <=1.0. The reference r theron was not used to int erpret this result as normal/abnormal . [facility] DistrictFgpzpazICEOUGJIDV8055-18-73 17:35:00 Test Item Value Reference Range Interpretation Comments Basophils # (test code 0.0 See_Comment [Aut omated message] The = Basophils #) system which generated this result tra nsmitted reference range : <=0.2. The reference r theron was not used to int erpret this result as normal/abnormal . [facility] DistrictYvzhhwqMZPLIUUBBE6217-96-31 17:35:00 Test Item Value Reference Range Interpretation Comments Eosinophils (test code = 0.7 See_Comment [A utomated message] The Eosinophils) system which ge nerated this result tra nsmitted reference range : <=4.0. The reference r theron was not used to int erpret this result as normal/abnormal . [facility] DistrictJdijkfiOITDCQXSNR6851-92-01 17:35:00 Test Item Value Reference Range Interpretation Comments Lymphocytes # (test code = Lymphocytes 1.8 1.0-5.5 #) [facility] DistrictQjgektrWSVXYQFEEG6431-99-80 17:35:00 Test Item Value Reference Range Interpretation Comments Segs (test code = Segs) 67.7 45.0-75.0 [facility] DistrictTlpgomaKKUNXFQXYV1667-75-45 17:35:00 Test Item Value Reference Range Interpretation Comments Monocytes (test code = Monocytes) 5.7 2.0-12.0 [facility] DistrictUcarpppXOWJIFISYS4248-66-32 17:35:00 Test Item Value Reference Range Interpretation Comments Lymphocytes (test code = Lymphocytes) 25.4 20.0-40.0 [facility]vo[facility]JJDKLFPNXU6161-43-39 17:35:00 Test Item Value Reference Range Interpretation Comments CDC HIV 4th GEN (test Negative (11/30/13 12:35 code = CDC HIV 4th PM) GEN) [facility] Notes Date/Time Note Provider Source 2022-09-04 EXAM: [place] 12:28:26-00:00 Chest x-ray, 1 view(s). CLINICAL HX: - upper back pain. Age: 66 years. Gender: Female. TECHNIQUE: As above. Facility: [facility]. COMPARISON: Chest x-ray: 01/05/2018. FINDINGS: Support apparatus: None. Cardiac silhouette: Unremarkable. Mediastinum: -- Rena: Unremarkable. -- Other: None. Lungs: -- Consolidation: Negative. -- Pleural effusion: Negative. -- Pneumothorax: Negative. -- Other: Negative. Bones: Unremarkable. Other: None. IMPRESSION: 1. No acute cardiopulmonary process. 2021-12-30 [id number] [facility] 20:16:00-00:00 [facility] [address] [place] [address] PATIENT NAME: BOZENA MARSH ADMIT DATE: 2 ACCOUNT NO: [id number] ROOM NO: S216 AGE: 66 REPORT TYPE: OPERATIVE REPORT SEX: F ADMITTING PHYSICIAN: Elvia Arauz MD ATTENDING PHYSICIAN: Elvia Arauz MD OPERATION DATE: 12/30/2021 PREOPERATIVE DIAGNOSES: Posterior wall defect, s tage II, possible posterior enterocele. 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 PROCEDURE PERFORMED: Posterior wall repair, post erior enterocele repair and perineocele repair. SURGEON: Elvia Arauz MD MANAGER OF NETWORK: Parvez. ANESTHESIA: General. FINDINGS: POP-Q -2, -2, [...] a CT scan from earlier this year th at did not even show diverticulitis. At the time, the patient assumed she could have had this, so she was clearly explained th at. Her recurrent UTI should be treated [...] when her daughter was present at the [facility]'s bedside. We reviewed all these. The [...] PATIENT NAME: BOZENA MARSH 9207 Receipt ID: [id number] Authenticated by Elvia Arauz MD On 11/03 /2022 01:03:10 PM at 0103 PATIENT NAME: BOZENA MARSH 9207 2021-12-30 [facility] 18:11:00-00:00 [facility] ([facility]) Brief Op Note REPORT#:[id number] REPORT STATUS: Signed DATE:12/30/21 TIME:1810 PATIENT: BOZENA MARSH UNIT #: [id number] ROOM/BED: : 56 AGE: 66 SEX: F ATTEND: Sa nolan Arauz MD ADM AUTHOR: Elvia Arauz MD * ALL edits or amendments must be made on the el [employer]/computer document * Op/Inv Proc Note - Brief Pre-procedure diagnosis: posterior wall defect stage 2 Post-procedure diagnosis: same as pre procedure dx, posterior enterocele, and perineocele Procedures performed: posterior wall , enterocele and perineocele repa irs Primary Surgeon: chad Technician Chemical Cleaning(s): Parvez Anesthesia: general anesthesia Findings: pop q -2/-2/-6/5/thin/7/0/+1/-4 Complications: none Estimated blood loss in ml's: 50 Specimens removed/altered: none Drain(s): Nunez Catheter Placed Fluids: 1200 Urine output: 50 Approach: vag Wound class: clean-contaminated Disposition: MEDSURG Counts: Sponge count: correct Instrument count: correct Needle count: correct Electronically Signed by Elvia Arauz MD o n 12/30/21 at 2004 RPT #: [id number] END OF REPORT 2021-12-27 [id number] [facility] 08:52:00-00:00 [facility] [address] [place] [address] PATIENT NAME: BOZENA MARSH ADMIT DATE: 2 ACCOUNT NO: [id number] ROOM NO: L.[id number] AGE: 66 REPORT TYPE: eELECTROCARDIOGRAM SEX: F ADMITTING PHYSICIAN: Elvia Arauz MD ATTENDING PHYSICIAN: Elvia Arauz MD Order: [id number] Test Reason : PRE OP Test Date/Time [...] T wave abnormality Confirmed by MD Agustina, Amiandi ([id number]) on 1 9:48:10 AM Referred By: Elvia Arauz Confirmed by:Beti Berrios MD at 0948 PATIENT NAME: BOZENA MARSH 9207 2021-11-06 PROCEDURE INFORMATION: JESSICA Pedraza aty 14:45:00-00:00 Exam: MR Abdomen Without and With Contrast And MR Pelvis Without and With Contrast Exam date and time: 11/06/2021 4:02 PM Age: 66 years old Clinical indication: Other specified disorders o f the skin and subcutaneous tissue; diverticulitis. Chronic UTI. Clinical co ncern enterovesical or colovesical fistula. TECHNIQUE: Imaging protocol: Magnetic resonance stacie ging of the abdomen and pelvis without and with contrast. Contrast material: CLARISCAN; Contrast volume: 1 8 ml; Contrast route: INTRAVENOUS (IV); Other contrast: Oral, Breeza, 1250; COMPARISON: CT ED Abdomen/Pelvis IV contrast only 01/11/2020 7:15 PM FINDINGS: ABDOMEN: Liver: Visibility limited by artifact. Incidenta l cysts noted. Gallbladder and bile ducts: Cholecystectomy. No biliary dilation. Pancreas: Unremarkable. Spleen: Unremarkable. Adrenals: Unremarkable. Kidneys and ureters: Incidental bilateral renal cysts, majority parapelvic. Kidneys otherwise unremarkable. Stomach and bowel: No evidence of acute bowel pa thology. Colonic diverticulosis, primarily descending colonic seg ment. Mild proximal sigmoid diverticula noted. Intraperitoneal space: No significant peritoneal fluid. PELVIS: Urinary bladder: No mass, calculus, dive rticular change or wall thickening. No obvious intraluminal gas. No visible fistulous t ract related to the urinary bladder. Reproductive: Unremarkable. Vasculature: No abdominal aortic aneurysm. Bones/joints: Incidental degenerative changes. Soft tissues: Unremarkable. IMPRESSION: 1. Colonic diverticulosis, p rimarily related to the descending colonic segment. 2. No visible fistulous tract related to the uri nary bladder. 3. Incidental hepatic and renal cysts. Morgan Clements MD On 11/07/2021 10:13:32; [id number] 2020-01-11 EXAM: [facility] 19:32:43-00:00 CT abdomen and pelvis with contrast. CLINICAL HX: - LUQ, LLQ abd pain. History of Covid positive. Age: 64 years. Gender: Female. TECHNIQUE: Contiguous axial CT images of the abdomen and pe lvis. IV contrast: 100 cc Omnipaque 300. GI contrast: Absent. Dose: DLP 805.4 mGy-cm. AEC, mA/kV adjustment by patient size, and/or iterative reconstruction technique were used, per departmental dose-optimization program. Facility: [facility]. COMPARISON: CT abdomen: March 25, 2016. FINDINGS: Lower chest: Partially imaged. -- Cardiac apex: Unremarkable. -- Lung bases: Unremarkable. -- Other: None. Solid abdominal viscera: -- Liver: Mild diffuse low-d ensity suggestive of fatty infiltration. A few stable cysts. -- Gallbladder: Cholecystectomy clips. -- Pancreas: Unremarkable. -- Spleen: Unremarkable. -- Adrenal glands: Unremarkable. Urinary tract: -- Right kidney: No hydronep hrosis. Multiple stable cysts. 0.1 cm nonobstructing midpole calculus. -- Left kidney: No hydronephrosis. Multiple stab le cysts. -- Urinary bladder: Unremarkable. Miscellaneous: -- Abdominal aorta: Mild atherosclerosis. -- Peritoneal free fluid: None. -- Peritoneal free air: None. -- Other: No pathologic sized lymph nodes in the upper abdomen. Bowel: -- Stomach: Unremarkable. -- Small bowel: Unremarkable. -- Appendix: Unremarkable. -- Colon: Multiple noninflamed diverticula. -- Rectum: Unremarkable. Reproductive organ(s): Unremarkable. Bones: Osteopenia. Lumbar spine degenerative ruy nges. Other: None. IMPRESSION: 1. No CT evidence of acute process in the abdome n or pelvis. 2. Mildly fatty liver. 3. Hepatic and renal cysts. 2018-01-05 2-VIEW CHEST X-RAY. DATE: 01/05/2018 4:47 PM CDT JESSICA [place] 16:47:00-00:00 INDICATION: - J01.90 Acute sinusitis, unspecifie d TECHNIQUE: Frontal and lateral views of the [...] is unremarkable. IMPRESSION: No acute cardiopulmonary disease. 2016-03-25 EXAM: CT ABDOMEN AND PELVIS WITHOUT CONTRAST PAULETTE [place] 10:54:30-00:00 DATE: 03/25/2016 10:52 AM [employer]ES [employer]ING AGENT INDICATION: R30.0 Dysuria, R 10.9 Unspecified abdominal pain, R19.7 Diarrhea, unspecified, r/o [...] calculus. Diverticulosis without evidence of diverticuliti s. 2015-09-16 CLINICAL HISTORY:Syncope. [place] 18:09:18-00:00 AGE: 59 years GENDER: Female TECHNIQUE: Axial [...] well pneumatized. IMPRESSION: No acute intracranial findings. 2015-09-16 CLINICAL HISTORY: Syncope [place] 17:59:39-00:00 AGE: 59 years GENDER: Female TECHNIQUE: Single AP, portable chest radiograph, 1 view. COMPARISON: None FINDINGS: The cardiomediastinal silhouette is within bhavya l limits. No focal airspace or interst itial opacities are seen. No pleural effusions. No pneumothorax. No significant osseous abnormalities are identif ied. IMPRESSION: No acute cardiopulmonary disease. 2015-02-23 CT OF ABDOMEN AND PELVIS WITH CONTRAST, 02/24/20 15 [facility] [place] 07:07:43-00:00 HISTORY: Left lower quadrant abdominal pain. TECHNIQUE: Sequential 5 mm a xial postcontrast images were obtained from the hemidiaphragms [...] with no CT evidence of acute diverticulitis. 2013-11-30 Gallbladder HIDA scan with ejection fraction. [facility] 16:19:43-00:00 HISTORY: Abdominal pain. Following the intravenous ad [...]
[2022-09-27 16:15] LABS: Specific Gravity < 1.005 (1.005-1.030); Urine Bilirubin NEGATIVE (Negative); Urine Blood Negative (Negative); Urine Clarity Clear (Clear); Urine Color Yellow (Yellow); Urine Glucose NEGATIVE (Negative); Urine Protein NEGATIVE (Negative); Urine Urobilinogen Normal (Normal); Urine pH 7.5 (5.0-7.0)
--- NOTE | 2022-09-27 16:18 | ER ---
Nurse's Notes [facility] Name: Tracey Rodriguez Age: 67 yrs Sex: Female : 1955 Arrival Date: 09/27/2022 Time: 15:45 Bed 15 Private MD: Diagnosis: UTI/ Urinary tract infection, site not specified Presentation: 09/27 16:01 Chief complaint: Patient states: Urgency that began this morning, is getting worse. ss Coronavirus screen: Client denies travel out of the [place] in the last 14 days. Ebola Screen: Patient denies exposure to infectious person. Patient denies travel to an Ebola-affected area in the 21 days before illness onset. Initial Sepsis Screen: Does the patient meet any 2 criteria? No. Patient's initial sepsis screen is negative. Does the patient have a suspected source of infection? No. Patient's initial sepsis screen is negative. Risk Assessment: Do you want to hurt yourself or someone else? Patient reports no desire to harm self or others. Onset of symptoms was September 27, 2022. 16:01 Method Of Arrival: Ambulatory ss 16:01 Acuity: ANUJA 3 ss Historical: - Allergies: 16:01 Ciprofloxacin; ss 16:01 fluoroquinolones; ss 16:01 Levaquin; ss 16:01 Sulfa (Sulfonamide Antibiotics); ss 16:01 anti-inflammatory (all); ss - PMHx: 16:01 Diverticulitis; ss - PSHx: 16:01 carpal tunnal repair; Colectomy; Ligation of fallopian tube; ss Screenin:34 [facility] ED Fall Risk Assessment (Adult) History of falling in the last 3 months, kc6 including since admission No falls in past 3 months (0 pts) Confusion or Disorientation No (0 pts) Intoxicated or Sedated No (0 pts) Impaired Gait No (0 pts) Mobility Assist Device Used No (0 pt) Altered Elimination No (0 pt) Score/Fall Risk Level 0 - 2 = Low Risk Oriented to surroundings, Maintained a safe environment, Educated pt \T\ family on fall prevention, incl call for assistance when getting out of bed, Assessed \T\ reinforced patient's understanding of fall precautions, Hourly rounding (assess needs \T\ fall precautionary measures) done. Abuse screen: Denies threats or abuse. Denies injuries from another. Nutritional screening: No deficits noted. Tuberculosis screening: No symptoms or risk factors identified. Assessment: 16:33 General: Appears in no apparent distress. comfortable, Behavior is calm, cooperative, kc6 appropriate for age. Pain: Denies pain. Neuro: Level of Consciousness is awake, alert, obeys commands, Oriented to person, place, time, situation, Appropriate for age. Cardiovascular: Capillary refill < 3 seconds. Respiratory: Airway is patent Trachea midline Respiratory effort is even, unlabored, Respiratory pattern is regular, symmetrical. : Reports urgency. Vital Signs: 16:01 BP 138 / 90; Pulse 85; Resp 16; Temp 98.2(TE); Pulse Ox 97% on R/A; Weight 89.81 kg; ss Height 5 ft. 3 in. ; Pain 0/10; 16:01 Body Mass Index 35.07 (89.81 kg, 160.02 cm) 16:01 Pain Scale: Adult ss ED Course: 15:47 Patient arrived in ED. [facility] 15:51 Lavon Amor [facility] is [facility] 15:51 Bruce Mclean MD is Attending Physician. [facility] 16:01 Arm band placed on right wrist. ss 16:02 Triage completed. 16:03 Berenice Duarte, DOLORES is Primary Nurse. kc6 16:08 Patient has correct armband on for positive identification. Bed in low position. Call mm9 light in reach. Side rails up X 1. Adult w/ patient. Warm blanket given. Pulse ox on. NIBP on. 16:08 Urinalysis w/ reflexes Sent. mm9 16:08 Urine collected: clean catch specimen, cloudy. mm9 16:36 No provider procedures requiring assistance completed. Patient did not have IV access kc6 during this emergency room visit. Administered Medications: No medications were administered Medication: 16:36 VIS not applicable for this client. kc6 Outcome: 16:17 Discharge ordered by . jeff 16:36 Discharged to home ambulatory, with significant other. kc6 16:36 Condition: stable 16:36 Discharge instructions given to patient, Instructed on discharge instructions, follow up and referral plans. medication usage, Demonstrated understanding of instructions, follow-up care, medications, Prescriptions given X 1. 16:36 Patient left the ED. kc6 Signatures: Lavon Amor PA PA jmm Blanchard, Shelby, RN RN ss Viola Dotson rg4 Berenice Duarte, RN RN kc6 Mirna Vazquez mm9
--- NOTE | 2022-09-27 16:19 | EDPHYS ---
Physician Documentation [facility] Name: Tracey Rodriguez Age: 67 yrs Sex: Female : 1955 Arrival Date: 09/27/2022 Time: 15:45 Bed 15 Private MD: ED Physician Bruce Mclean HPI: 09/27 16:03 This 67 yrs old Female presents to ER via Ambulatory with complaints of Urinary Problem.jmm 16:03 Onset: The symptoms/episode began/occurred gradually, 1 day(s) ago. This is a 67 year jmm old female that presents to the ED with complaints of increased frequency, dysuria, increased urgency. Denies fever or vomiting. Denies flank pain. . Historical: - Allergies: 16:01 Ciprofloxacin; ss 16:01 fluoroquinolones; ss 16:01 Levaquin; ss 16:01 Sulfa (Sulfonamide Antibiotics); ss 16:01 anti-inflammatory (all); ss - PMHx: 16:01 Diverticulitis; ss - PSHx: 16:01 carpal tunnal repair; Colectomy; Ligation of fallopian tube; ss ROS: 16:03 : Positive for urinary symptoms. jmm 16:03 All other systems are negative. Exam: 16:03 Constitutional: This is a well developed, well nourished patient who is awake, alert, jmm and in no acute distress. Head/Face: atraumatic. Eyes: EOMI, no conjunctival erythema appreciated ENT: Moist Mucus Membranes Neck: Trachea midline, Supple Chest/axilla: Normal chest wall appearance and motion. Cardiovascular: Regular rate and rhythm. No edema appreciated Respiratory: Normal respirations, no respiratory distress appreciated Abdomen/GI: Non distended Back: Normal ROM Skin: General appearance color normal MS/ Extremity: Moves all extremities, no obvious deformities appreciated, no edema noted to the lower extremities Neuro: Awake and alert Psych: Behavior is normal, Mood is normal, Patient is cooperative and pleasant Vital Signs: 16:01 BP 138 / 90; Pulse 85; Resp 16; Temp 98.2(TE); Pulse Ox 97% on R/A; Weight 89.81 kg; ss Height 5 ft. 3 in. ; Pain 0/10; 16:01 Body Mass Index 35.07 (89.81 kg, 160.02 cm) ss 16:01 Pain Scale: Adult ss MDM: 16:09 Patient medically screened. snw 19:38 Differential diagnosis: UTI. Data reviewed: vital signs, nurses notes. Counseling: I jeff had a detailed discussion with the patient and/or guardian regarding: the historical points, exam findings, and any diagnostic results supporting the discharge/admit diagnosis, the need for outpatient follow up, to return to the emergency department if symptoms worsen or persist or if there are any questions or concerns that arise at home. 09/27 16:03 Order name: Urinalysis w/ reflexes; Complete Time: 16:20 jm Administered Medications: No medications were administered Disposition Summary: 09/27/22 16:17 Discharge Ordered Location: Home [facility] Condition: Stable [facility] Diagnosis - UTI/ Urinary tract infection, site not specified [facility] Followup: [facility] - With: Private Physician - When: 2 - 3 days - Reason: Recheck today's complaints, Continuance of care, Re-evaluation by your physician Discharge Instructions: - Discharge Summary Sheet [facility] - Urinary Tract Infection, Adult [facility] Forms: - Medication Reconciliation Form [facility] - Thank You Letter [facility] - Antibiotic Education [facility] - Prescription Opioid Use [facility] - [email or web address] [facility] Prescriptions: - Suprax 400 mg Oral capsule - take 1 capsule by ORAL route daily for 10 days; 10 capsule; Refills: 0, Product [facility] Selection Permitted Addendum: 10/01/2022 08:57 Co-signature as Attending Physician, Bruce Mclean MD I reviewed the patient's care r n provided by the Advanced Practice Provider and agree with the diagnosis and treatment plan. Signatures: Dispatcher [employer] Roula Wyatt FNP-C FNP-Lavon Costello PA PA jmm Nieto, Roman, MD MD rn Jailene Johnson RN RN ss
[2022-09-27 16:53] VITALS: BP 138/90; TEMP 98.2; O2SAT 97
== END 2022-09-27 16:36 | disposition home or self-care (01) ==
LOC: ER 15:45
DX: N39.0 Urinary tract infection, site not specified (principal); Z88.1 Allergy status to other antibiotic agents; Z88.2 Allergy status to sulfonamides; Z88.8 Allergy status to other drugs, medicaments and biological substances
CPT/HCPCS: 81003; 99283

== ENCOUNTER 2022-10-26 16:05 | Emergency (ER) | payer OTHER ==
--- OUTSIDE RECORDS SUMMARY | 2022-10-26 16:18 | XMS REPORT | Continuity of Care Document ---
:1955 Author Organization [facility] t Address [address] [place] [address] Care Team Providers Name Role Phone Silvio Babin MD, Shiela Primary Care Physician [phone] LUCIEN SHANNON Attending Clinician Unavailable LIANNE BARAHONA Attending Clinician Unavailable SHEA HILL Attending Clinician Unavailable JULIA BARBOZA Attending Clinician Unavailable LUCIEN SHANNON Attending Clinician Unavailable MATTHEW NAGY OM Attending Clinician Unavailable CHIVO Attending Clinician Unavailable ARUN GARCIA Attending Clinician Unavailable KHALIDA Attending Clinician Unavailable George HERNANDEZ, Emily Castillo Attending Clinician [phone] Elvia Arauz Attending Clinician Unavailable Willy Lopez Attending Clinician [phone] Emily Longoria Attending Clinician [phone] MATTHEW NAGY Attending Clinician Unavailable Kaitlni Block Attending Clinician [phone] JONATHAN Attending Clinician Unavailable FRANCISCO_Nolan Attending Clinician Unavailable Provider , Not In System Attending Clinician Unavailable Ginna Lord MA Attending Clinician Unavailable Roula Finn Attending Clinician [phone] SHIELA RASMUSSEN Attending Clinician Unavailable NICHELLE ALANIS Attending Clinician Unavailable UMAIR_Wang Admitting Clinician Unavailable JOHN_Newton Admitting Clinician Unavailable Elvia Arauz Admitting Clinician Unavailable JONATHAN Admitting Clinician Unavailable GISEL Admitting Clinician Unavailable Payers Payer Name Policy Type Policy Number Effective Date Expiration Date S giselle AETNA CHOICE POS II [id number] 2002 2002 00:00:00 00:00:00 AETNA MEDICARE PPO [id number] 2022 00:00:00 AETNA (MEDICARE [id number] 2022 REPLACEMENT PPO) 00:00:00 [place]: [id number] 2021 NOVITAS [employer] 00:00:00 MEDIC[place]: [id number] 2021 NOVPropertyGuruS [employer] - 00:00:00 FORMERLY [facility] AETNA (INDEMNITY) [id number] 2002 00:00:00 MEDICARE B[place]: [id number] 2021 [employer] 00:00:00 MEDICARE PART A AND [id number] 2021 B 00:00:00 AETNA (POS) [id number] 2020 00:00:00 Problems Condition Condition Condition Status Onset Resolution Last Treating Co mments Source Name Details Category Date Date Treatment Clinician Date Cellulitis Cellulitis Problem Active S weeny of finger of Finger 7-24 Comm uni of left of Left 00:00: ty hand Hand 00 [facility]ospita [facility] Dysuria Dysuria Problem Active 2023-0 [place] 6-15 Communi 00:00: ty 00 [facility] Clin[facility] FLANK PAIN FLANK Diagnosis Active 2022-09-23 Memoria W/N.V.D PAIN 6-08 09:24:00 l W/N.V.D 00:00: [place] Active 00 09/04/2022 MH [place] Gastroesop Gastroesop Problem Active S wepatricy hageal hageal 6-05 Communi reflux Reflux 00:00: ty disease Disease 00 [facility]ospita l Clinics Thoracic Thoracic Problem Active [place] [facility] back pain Back Pain 6-05 Comm uni 00:00: ty 00 [facility]osp[facility] Clinics Diarrhea Diarrhea Problem Active [place] y 6-05 Communi 00:00: ty 00 [facility] Clin[facility] Abdominal Abdominal Problem Active Swe venkat pain Pain 6-05 Communi 00:00: ty 00 [facility]osp[facility] l Clinics Herpes Herpes Problem Active [place] zoster Zoster 5-16 Communi 00:00: ty 00 [...] l Clinics Acute Acute Problem Active 2021-03 [place] upper Upper 2-29 Communi respirator Respirator 00:00: ty y y Hospita infection Infection l Clinics Nasal Nasal Problem Active 2021-03 [place] congestion Congestion 2-29 Co mmuni 00:00: ty 00 Hospita l Clinics Cough Cough Problem Active 2021-03 [place] 2-29 Communi 00:00: ty 00 [facility]osp[facility] Clinics Anxiety Anxiety Problem Active 2021-03 [place] 1-28 Communi 00:00: ty 00 [facility]ospita l Clinics 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 [place] memory Memory 1-28 Communi disturbanc Disturbanc 00:00: ty e e 00 Hospita l Clinics Allergic Allergic Problem Active 2021-03 [place] rhinitis Rhinitis 1-28 Commun i 00:00: ty 00 [facility]ospita l Clinics Dizziness Dizziness Problem Active 2021-03 Swe venkat 1-28 Communi 00:00: ty 00 [facility] Contact Contact Problem Active [place] dermatitis Dermatitis 8-12 Co mmuni 00:00: ty 00 Hospita Clinics Pruritic Pruritic Problem Active [place] rash Rash 8-12 Communi 00:00: ty 00 [facility]ospita Clinics Ganglion Ganglion Problem Active [place] cyst of Cyst of 8-12 Communi left hand [facility]00: [facility] Depressive Depressive Problem Active S weeny disorder Disorder 7-25 Commun i 00:00: ty [facility] Conjunctiv Conjunctiv Problem Active S weeny itis itis 7- Communi 00:00: ty [facility] Acute Acute Problem Active [place] sinusitis Sinusitis 7- Comm uni 00:00: ty 00 Hospita Clinics Urinary Urinary Problem Active [place] tract Tract 7- Communi infectious [facility] 00:00: [facility] REC[facility] Active 2021-10-16 Memoria DIVERTICUL DIVERTICUL 7 10:26:00 l ITIS, ITIS, 00:00: Mart DIARRHEA, DIARRHEA, 00 ABDO ABDO Active 10/02/2021 [facility] DIVERTICUL DIVERTICU Diagnosis Active 2020-032021-04-05 Memoria ITIS LITIS 2-16 10:15:00 l Active 00:00: Mart 03/14/2021 00 [facility] Diverticul Diverticul Problem Active S weeny itis itis 4-29 Communi 00:00: ty 00 [facility] NUMBNESS/ NUMBNESS/ Diagnosis Active 2020-07-23 Memoria LETHARGIC LETHARGIC 4-26 18:37:00 l Active 08:00: Mart [facility] Active 2019-032020-03-09 Me moria VISIT- ABD VISIT- ABD 2-10 11:18:00 l PAIN PAIN 00:00: [place] Active 00 03/08/2020 [facility] ABD PAIN ABD PAIN Diagnosis Active 2019-032020-01-11 Memoria Active 0-14 18:59:00 l 01/11/2020 00:00: José Miguel samaniego [place] F/U AND F/U AND Diagnosis Active 2018-07-28 Memoria 2ND 2ND 07-20 14:19:00 l OPINION OPINION 00:00: [place] Active 00 07/20/2018 [facility] KNEE PAIN KNEE PAIN Diagnosis Active 2017-06-06 Memoria Active 06-05 08:32:00 l 06/05/2017 00:00: José Miguel sam[facility]go [facility] 00 [place] BDDC-NAUSE BDDC-NAUS Diagnosis Active 2016-12-07 Memoria A, EARLY EA, EARLY 10-30 15:15:00 l SATIETY SATIETY 00:00: Mart Active 00 10/30/2016 [facility] STOMACH STOMACH Diagnosis Active 2015-032016-03-17 Memoria PAIN PAIN 04-27 13:47:00 l Active 00:00: Mart 02/26/2016 00 [facility] WEAKNES WEAKNES Diagnosis Active 2015-09-16 Memoria AND BLURY AND BLURY 09-15 17:12:00 l VISION VISION 00:00: [place] Active 00 09/16/2015 [place] BDDC/ BDDC/ Diagnosis Active 2014-032015-04-30 Mem oria Z12.11 Z12.11 2-16 11:17:00 l SCREENING SCREENING 00:00: Cierra bettencourt FOR FOR 00 MALIGNANT MALIGNANT ALICIA ALICIA Active 03/14/2015 [facility] BDDC - NEW BDDC - Diagnosis Active 2014-032015-03-14 Memoria PT CONSULT NEW PT -16 14:16:00 l CONSULT 00:00: [place] Active 00 03/14/2015 [facility] PAIN IN PAIN IN Diagnosis Active 2014-032015-04-21 Memoria THE THE 05-06 15:39:00 l ABDOMEN; ABDOMEN; 00:00: José Miguel samaniego UPPER AND UPPER AND 00 LOWER STO LOWER STO Active 03/05/2015 [facility] Screening Screening Problem Active 2021-11-09 Memoria mammograph mammograph 08-23 01:25:28 l y y 00:00: Mart (procedure (procedure 00 ) ) Active 08/23/2014 Problem 11/09/2021 Data migrated from [employer] on 10/04/14. Medical Group,[facility], [place],M H OPIFernando Garcia, OPID [place], JESSICA Cody,M H [place] Vitamin D Vitamin D Problem Active 2021-11-09 Memoria deficiency deficiency 08-23 01:25:28 l (disorder) (disorder) 00:00: He rmann Active 00 08/23/2014 Problem 11/09/2021 Data migrated from [employer] on 10/04/14. [facility] Group,[facility], [place],M H OPID Radha, OPID [place], JESSICA Cody,M H [place] Gastritis Gastritis Problem Active 2021-11-09 Memoria (disorder) (disorder) 08-22 01:25:28 l Active 00:00: [place] 08/22/2014 00 Problem 11/09/2021 Data migrated from [employer] on 10/04/14. [facility] Group,[facility], [place],M H JESSICA Garcia, OPID Scarbro, JESSICA Cody,M H [place] Multiple Multiple Problem Active 2021-11-09 Memoria joint pain joint pain 08-22 01:25:28 l (finding) (finding) 00:00: Herm rut Active 08/22/2014 Problem 11/09/2021 Data migrated from [employer] on 10/04/14. Medical [facility], [place],M H OPIFernando Garcia, OPID [place], JESSICA Cody,M H [place] Muscle Muscle Problem Active 2021-11-09 Marvel fauzia pain pain 08-22 01:25:28 l (finding) (finding) 00:00: Herm rut Active 08/22/2014 Problem 11/09/2021 Data migrated from [employer] on 10/04/14. [facility], [place],M H JESSICA Garcia, OPID [place], SUGARFernando Cody,M H [place] Nausea Nausea Problem Active 2021-11-09 Marvel fauzia (finding) (finding) 08-22 01:25:28 l Active 00:00: [place] 08/22/2014 00 Problem 11/09/2021 Data migrated from [employer] on 10/04/14. [facility], Ryan Sparks JESSICA Garcia, OPID [place], SUGARFernando Cody,M H [place] Enterobias Enterobia Problem Active 2021-11-09 Memoria is sis 08-08 01:25:28 l (disorder) (disorder) 00:00: He rmann Active 00 08/08/2014 Problem 11/09/2021 Data migrated from [employer] on 10/04/14. [facility], [place],M Joseph JESSICA Garcia, OPID Scarbro, JESSICA Cody,M H [place] Numbness Numbness Problem Active 2021-11-09 Memoria (finding) (finding) 08-08 01:25:28 l Active 00:00: Mart 08/08/2014 00 Problem 11/09/2021 Data migrated from [employer] on 10/04/14. [facility], [place],Ryan Ruiz JESSICA Garcia, OPID Scarbro, JESSICA Cody,M H [place] Reactive Reactive Problem Active 2021-11-09 Memoria hypoglycem hypoglycem 08-08 01:25:28 l ia ia 00:00: Mart (disorder) (disorder) 00 Active 08/08/2014 Problem 11/09/2021 Data migrated from [employer] on 10/04/14. 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 Obesity Obesity Problem Active 2022-09-07 Me moria (disorder) (disorder) 01:31:41 l Active [place] Problem 09/07/2022 Medical Group,[facility], [place],[facility] JESSICA Garcia, JESSICA Scarbro, JESSICA Cody,[facility] [place],[facility] L98.8 - L98.8 - Diagnosis Active 2021-11-06 Memoria OTH DISRD OTH DISRD 12:38:00 l OF THE OF THE [place] SKIN AND SKIN AND SUBC SUBC Active JESSICA Radha Disease Disease Problem Resolve 2021-11-09 M emoria caused by caused by d 01:25:28 l 2018-nCoV 2018-nCoV Herm rut Resolved Problem 11/09/2021 [facility], JESSICA Garcia, [place] Hypoglycem Hypoglyce Problem Resolve 2021-11-09 Memoria ia kristin d 01:25:28 l (disorder) (disorder) He rmann Resolved Problem 11/09/2021 [facility], [place],[facility] JESSICA Garcia, JESSICA Scarbro, JESSICA Cody,[facility] [place] No known No known Disease Metho di active active st problems problems Hospit a l Backache Backache Diagnosis 2022-09-07 2022-09-07 Memoria (finding) (finding) 09-04 01:31:41 01:31:41 l 09/04/2022 18:33: José Miguel n Diagnosis 00 09/07/2022 [facility] [place] Diarrhea Diarrhea Problem Resolve 2021-11-09 2021-11-09 Memoria (finding) (finding) d - 01:25:28 01:25:28 l Resolved 00:00: [place] 08/23/2014 00 Problem 11/09/2021 Data migrated from [facility] on 10/04/14. Medical [facility], [place] Joseph Garcia, JESSICA Scarbro, JESSICA Cody,[facility] [place] Sinusitis Sinusitis Problem Resolve 2021-11-09 2021-11-09 Memoria (disorder) (disorder) d 9- 01:25:28 01:25:28 l Resolved 00:00: [place] 12/08/2011 00 Problem 11/09/2021 Data migrated from [employer] on 10/14/14.<b r/>Data migrated from [employer] on 10/13/14. Medical Group,[facility], Ryan Sparks, OPID Scarbro, JESSICA Cody,M H [place] History of Past Illness Condition Condition Condition Status Onset Resolution Last Treating Co mments Source Name Details Category Date Date Treatment Clinician Date Gastritis, Gastritis Problem 2021-10-16 2021-10-16 Memoria unspecifie , 10-14 22:30:38 22:30:38 l d, without unspecifie 16:07: He rmann bleeding d, without 00 bleeding 10/14/2021 10/16/2021 [facility] Urinary Urinary Problem 2019-032020-01-13 2020-01-13 Memoria tract tract 0-14 22:40:53 22:40:53 l infection, infection, 17:00: He rmann site not site not 00 specified specified 01/11/2020 0 [place] Acute Acute Problem 2019-032020-01-13 2020-01-13 M emoria gastritis gastritis 0-14 22:40:53 22:40:53 l without without 17:00: Mart bleeding bleeding 00 01/11/2020 0 [place] Unspecifie Unspecifi Problem 2019-032020-01-13 2020-01-13 Memoria d ed 0-14 22:40:53 22:40:53 l abdominal abdominal 17:00: Herm rut pain pain 00 01/11/2020 0 [place] Acute Acute Problem 2019-032020-01-13 2020-01-13 M emoria bronchitis bronchitis 0-14 22:40:53 22:40:53 l , , 17:00: [place] unspecifie unspecifie 00 d d 01/11/2020 0 [place] Acute Acute Problem 2017-032018-07-25 2018-07-25 M emoria sinusitis, sinusitis, 0-16 14:53:54 14:53:54 l unspecifie unspecifie 04:40: He rmann d d 38 01/12/2018 04/28/201 9 MH OPID [place] Discharge Discharge Problem 2015-09-19 2015-09-19 [facility] Diagnosis: Diagnosis: 09-15 00:37:41 00:37:41 l Adult Adult 05:00: [place] hypothyroi hypothyroi 00 dism dism 09/16/2015 6 MH [place] Discharge Discharge Problem 2013-12-03 2013-12-03 [facility] Diagnosis: Diagnosis: 11-30 05:11:13 05:11:13 l Biliary Biliary 05:00: Mart colic colic 00 11/30/2013 12/03/2013 MH [place] Allergies, Adverse Reactions, Alerts Allergy Allergy Status Severity Reaction(s) Onset Inactive Treating Comm ents Source Name Type Date Date Clinician FLUROQUI DA Active [facility] HISTORY OF 12-27 Maxine an ALLERGIC 00:00: d REACTION [facility] ciproflo DA Active SV 2017-03 [facility] xacin 0-01 [place] 00:00: d 00 [facility] levoflox DA Active SV 2017-03 [facility] acin 0-01 [place] 00:00: d 00 [facility] ANTI DA Active U UNKNOWN 2017-03 [facility] INFLAMMA 0-01 [place] TORY PO 00:00: d MEDS 00 [facility] ciproflo DA Active SV LEG WEEKNESS 2017-03 HC A xacin 0-01 [place] 00:00: d 00 [facility] levoflox DA Active SV LOWER EXT 2017-03 [facility] acin WEEKNESS 0-01 [place] 00:00: d 00 [facility] [place] Ciproflo Propensi Active Method i xacin ty [...] l lammator s to y Drug) drug NSAIDS Allergy Active [place] (NON-DRAGAN to Communi ROIDAL substanc ty ANTI-INF e Hospita LAMMATOR l Y DRUG) Clinics QUINOLON Allergy Active [place] ES to Communi substanc ty e Hospita l Clinics ciproflo ciproflo Active Memori a xacin xacin l [place] Levaquin Levaquin Active Memori a l Mart Food Food Active Memoria Iodine Iodine l Mart NSAIDs NSAIDs Active Memoria l Mart contrast contrast Active Moderate Marvel fauzia media media l (iodine- (iodine- José Miguel n based) based) Family History Family Member Diagnosis Comments Start Date Stop Date Source Natural father Heart disease [facility] Natural mother Cancer [facility] Social History Social Habit Start Date Stop Date Quantity Comments Source Gender identity [facility] Sexual orientation [facility] Alcohol intake 2021-08-21 2021-08-21 Current [facility] 00:00:00 00:00:00 non-drinker of Hospital alcohol (finding) History of Social 2021-08-21 2021-08-[address] [facility] [address] function 00:00:00 00:00:00 [facility] Social History 2017-07-02 2017-07-02 [facility] 19:52:25 19:52:25 Tobacco use and 2017-06-05 2017-06-05 Smokeless [facility] exposure 00:00:00 00:00:00 tobacco non-user [facility] Sex Ass[birth year] At [birth year] [facility] 00:00:00 00:00:00 Hospital Smoking Status Start Date Stop Date Source Tobacco smoking consumption unknown [facility] Social History [facility] Medications Ordered Filled Start Stop Current Ordering Indication Dosage Frequency Signature Comments Components Source Medication Medication Date Date Medication? Clinician (SIG) Name Name tramadol 50 Yes 50 mg = 1 M emoria mg oral 6-08 tab, PO, l tablet 19:12: Q4H, PRN [place] 00 Pain, # 7 tab, 0 Refill(s), Pharmacy: [facility] #[id number], 160.02, cm, 09/04/22 10:52:00 CDT, Height, 90.6, kg, 09/04/22 10:52:00 CDT, Weight omeprazole Yes 20 mg = 1 Me moria 20 mg oral 6-08 cap, PO, l delayed 18:33: Daily, # José Miguel n release 00 30 cap, 1 capsule Refill(s), Pharmacy: [id number], 160.02, cm, 09/04/22 10:52:00 CDT, Height, 90.6, kg, 09/04/22 10:52:00 CDT, Weight Carafate 1 Yes 1 gm = 1 Mem oria g oral 6-08 tab, PO, l tablet 18:33: QID-Before Jada nn 00 Meals, # 120 tab, 0 Refill(s), Pharmacy: [facility][id number], 160.02, cm, 09/04/22 10:52:00 CDT, Height, 90.6, kg, 09/04/22 10:52:00 CDT, Weight Xifaxan 550 Yes 550 mg = 1 Memoria mg oral 4-20 tab, PO, l tablet 20:34: TID, # 42 José Miguel n 00 tab, 0 Refill(s), Pharmacy: [facility], 160.02, cm, 10/14/21 8:07:00 CDT, Height, 90.909, kg, 10/14/21 8:07:00 CDT, Weight Kenalog 40 Kenalog 40 No Q1D Kenalog 40 [place] mg/mL mg/mL 8-12 mg/mL Communi suspension suspension [...] 00 30 cap, 11 capsule Refill(s), Pharmacy: [facility] #[id number], 160.02, cm, 10/14/21 8:07:00 CDT, Height, 90.909, kg, 10/14/21 8:07:00 CDT, Weight estradiol Yes 1 gm =, Memor ia 0.1 mg/g 7-25 VAG, 0 l vaginal 15:41: Refill(s) Jada nn cream 00 Probiotic Yes PO, Daily, Me moria Formula 7-18 0 l 13:24: Refill(s) [place] 00 Ellura Yes 0 Memoria 7-18 Refill(s) l 13:24: Mart 00 Suprax 400 Yes 400 mg = [...] 24 00 :00 l hr tablet oxybutynin 0 2021- No 5mg QD Take 5 mg [...] l hr tablet dexamethaso dexamethaso No dexamethas [place] ne sodium ne sodium 03 one sodium Communi phosphate phosphate 15:10: phosphate ty 10 mg/mL 10 mg/mL 00 10 mg/mL Hos romina injection injection injection l solutionTak solutionTak solutionTa Clinics e 10 mg by e 10 mg by ke 10 mg injection injection by route. route. injection route. peg peg No peg [place] 3350-electr 3350-electr 3-03 3350-elect Communi olytes 236 olytes 236 00:00: rolytes ty gram-22.74 gram-22.74 00 236 Hos romina gram-6.74 gram-6.74 gram-22.74 l gram-5.86 gram-5.86 gram-6.74 Clinics gram gram gram-5.86 solution solution gram MIX AND MIX AND solution DRINK DRINK MIX AND DIRECTED DIRECTED DRINK DIRECTED GoLYTELY Yes See Memoria oral powder 04-05 Instructio l for 20:45: ns, Take [place] reconstitut 00 as ion directed by physician. , # 1 ea, 0 Refill(s), Pharmacy: [facility] #[id number], fill whichever other prep is in stock and covered by insurance if this is not available, 160.02, cm, 04/05/21 10:11:00 [employer], Height, 89.545, k... rifaximin 2020-03 Yes 550 mg = 1 Me moria 550 MG Oral 2-17 tab, PO, l Tablet 22:33: TID, # 42 José Miguel n [XIFAXAN] 00 tab, 0 Refill(s), Pharmacy: [facility] #[id number], 160.02, cm, 03/09/20 11:28:00 [employer], Height, 86.364, kg, 03/09/20 11:28:00 [employer], Weight lidocaine lidocaine 2020-03 No Q1D lidocaine [place] (PF) 10 (PF) 10 0-18 (PF) 10 [...] Kenalog 40 2020-03 No Q1D Kenalog 40 [place] mg/mL mg/mL 0-18 mg/mL Communi suspension suspension [...] Vomiting, # 60 tab, 0 Refill(s), Pharmacy: [facility] #[id number], 160.02, cm, 03/09/20 11:28:00 [employer], Height, 86.364, kg, 03/09/20 11:28:00 [employer], Weight Famotidine 2019-03 Yes 40 mg = [...] tablet 02:08: Q12H, X 10 Jada nn day, # 20 tab, 0 Refill(s) Phenergan [...] Chloride 0-14 1000 l 0.9% 23:28: ml/hr, [place] (Bolus) IV 00 Infuse Over: 1 hr, Route: IV, 1,000, Drug form: INJ, ONCE, Priority: STAT, Dosing Weight 89 kg, Start date: 01/11/20 18:28:00 CDT, Stop date: 01/11/20 18:28:00 CDT, 0 Morphine 2019-03 No Notes: Memoria 0-14 (Same l 23:28: as:MORPhin Mart 00 e Sulfate) Ondansetron 2019-03 No Notes: Marvel fauzia 0-14 (Same as: l 23:28: Zofran) [place] 00 MEDICATION WASTE Product Size: 4 mg Product Wasted: ___ mg Famotidine 2019-03 No Notes: Memor ia 0-14 (Same as: l 23:28: Pepcid) [place] 00 Can be dilute in 5-10cc NS [...] cap, 0 oral Refill(s), capsule Pharmacy: (Macrobid) [facility] #[id number] fluconazole Yes See Memori a 150 mg oral 6-07 Instructio l tablet 14:07: ns, 1 tab José Miguel n 00 PO ONCE a week, # 2 tab, 0 Refill(s), Pharmacy: [facility] ciclopirox Yes 1 appl, Marvel fauzia 7.7 MG/ML 6-07 TOP, BID, l Topical 14:07: X 28 day, Jada nn Cream 00 # 90 gm, 0 Refill(s), Pharmacy: [place] [address] rifaximin Yes 550 mg = 1 Me moria 550 MG Oral 5-01 tab, PO, l Tablet 21:43: TID, # 42 José Miguel n [XIFAXAN] 00 tab, 0 Refill(s), Pharmacy: [facility] pantoprazol Yes 40 mg, PO, Memoria e 5-01 Daily, # l 18:57: 30 tab, 0 [place] 00 Refill(s) Hyoscyamine 2018-0 Yes 0.125 mg = Memoria Sulfate 3-20 1 tab, PO, l 0.125 MG 21:36: QID, PRN Jada nn Disintegrat 00 Spasm, # ing Tablet 40 tab, 1 [Nulev] Refill(s), Pharmacy: [place] [address] Sulfamethox Yes 1 tab, PO, Memoria azole 800 3-20 BID, X 7 l MG / 21:36: day, # 14 Mart Trimethopri 00 tab, 0 m 160 MG Refill(s), Oral Tablet Pharmacy: [Bactrim] [facility] clonazePAM Yes 0.5 mg = 1 M emoria 0.5 mg oral 3-20 tab, PO, l tablet 21:36: Daily, PRN Jada nn 00 Anxiety, # 30 tab, 1 Refill(s) Metronidazo Yes 500 mg = 1 Memoria le 500 MG 3-18 tab, PO, l Oral Tablet 19:12: Q8H, X 10 H ermann [Flagyl] 00 day, # 30 tab, 0 Refill(s), Pharmacy: [place] [address] Amoxicillin Yes 875 mg = 1 Memoria 875 MG / 3-18 tab, PO, l Clavulanate 19:12: Q12H, X 10 [place] 125 MG Oral 00 day, # 20 Tablet tab, 0 [Augmentin Refill(s), 875-mg] Pharmacy: [place] [address] Nystatin 2017-03 No 1,000,000 Marvel fauzia [id number] UNT 0-15 unit = 2 l Oral Tablet 13:43: tab, PO, He rmann 00 BID, X 30 day, # 120 tab, 0 Refill(s), Pharmacy: [place] [address] sucralfate 2017-03 Yes 1 gm = 1 Mem oria 1 g oral 0-11 tab, PO, l tablet 19:23: QID, # 120 Jada nn 00 tab, 0 Refill(s), Pharmacy: [place] [address] benzonatate 2017-03 No 100 mg = 1 Memoria 100 MG Oral 0-09 cap, PO, l Capsule 20:31: TID, PRN José Miguel n [Tessalon 00 as needed Perles] for cough, X 7 day, # 21 cap, 0 Refill(s), Pharmacy: [place] [id number] Azithromyci 2017-03 No See Memori a n 5 Day 0-09 Instructio l Dose Pack 20:26: ns, Take 2 He rmann 250 mg oral 00 tablets by tablet mouth the first day then 1 tablet by mouth days 2-5., X 5 day, # 6 tab, 0 Refill(s), Pharmacy: [place] [id number] doxycycline 2017-03 Yes 100 mg = 1 Memoria hyclate 100 0-09 tab, PO, l MG Oral 20:13: BID, 0 [place] Tablet 00 Refill(s) clonazePAM 2017-03 No 0.5 [...] day, # 30 tab, 1 Refill(s), Pharmacy: [facility] [employer] [facility] pregabalin Yes 50 mg = 1 Me moria 50 MG Oral 4-05 cap, PO, l Capsule 20:17: TID, # 90 Jada nn [Lyrica] 00 cap, 0 Refill(s) valACYclovi No 1 gm = 1 Me moria r 1 g oral 4-02 tab, PO, l tablet 18:18: Q8H, X 7 Mart 00 day, # 21 tab, 1 Refill(s), Pharmacy: [facility] [employer] [facility] valACYclovi No 1 gm = 1 Me moria r 1 g oral 3-13 tab, PO, l tablet 19:40: Q8H, X 7 Mart 00 day, # 21 tab, 1 Refill(s), Pharmacy: [facility] [employer] [facility] polyethylen No 17 gm, PO, Memoria e glycol 3-13 Daily, X l 3350 oral 19:40: 31 day, # Her sellers powder for 00 527 gm, 1 reconstitut Refill(s), ion Pharmacy: [facility] [employer] [facility] benzonatate Yes 100 mg = 1 Memoria 100 mg oral 1-02 cap, PO, l capsule 20:29: TID, do Mart 00 not crush or chew, X 10 day, # 30 cap, 0 Refill(s), Pharmacy: [facility] [facility] Codeine Yes 5 mL, PO, Memor ia Phosphate 2 1-02 Q12H, PRN l MG/ML / 20:29: cough, X José Miguel n Guaifenesin 00 10 day, # 20 MG/ML 100 mL, 0 Oral Refill(s) Solution [Cheratussi n] Fluticasone Yes 1 spray, Me moria propionate 1-02 NASAL, l 0.05 20:19: BID, # 16 [place] MG/ACTUAT 00 gm, 2 Metered Refill(s), Dose Nasal Pharmacy: [place] [facility] [employer] [facility] Azithromyci Yes See Memori a n 5 Day 1-02 Instructio l Dose Pack 20:19: ns, Take 2 He rmann 250 mg oral 00 tablets by tablet mouth the first day then 1 tablet by mouth days 2-5., X 5 day, # 6 tab, 0 Refill(s), Pharmacy: [facility] [id number] clonazePAM 2016-03 Yes 0.5 mg = 1 M emoria 0.5 mg oral 1-27 tab, PO, l tablet, 20:26: BID, # 60 Jada nn disintegrat 00 tab, 1 ing Refill(s) EnteraGam 2015-03 Yes EnteraGam, Me moria 2-14 See l 21:03: Instructio Mart 00 ns, Samples given in clinic on 03/12/16. Lot [id number] exp date 10/15, # 1 box, Refill(s) [...] Chloride 6-19 1,000 l 0.154 22:33: ml/hr, [place] MEQ/ML 00 Infuse Injectable Over: 1 Solution hr, Route: IV, 1,000, Drug form: INJ, ONCE, Priority: STAT, Dosing Weight 85.818 kg, Start date: 09/16/15 17:33:00 CDT, Duration: 1 doses or times, Stop date: 09/16/15 17:33:00 CDT Saline No Notes: Memoria Flush 0.9% -19 (Same as: l 22:33: BD Mart 00 [...] 00 tab, 1 Tablet Refill(s), [Levsin] Pharmacy: [facility] Ondansetron 2014-03 Yes 8 mg = 1 Me moria 8 MG 2-17 tab, PO, l Disintegrat 21:16: TID, PRN He rmann ing Tablet 00 Nausea and [Zofran] Vomiting, Dissolve tab under tongue, X 7 day, # 21 tab, 1 Refill(s), Pharmacy: [facility] [facility] GoLYTELY 2014-03 Yes 240 mL, Memori a oral powder 2-16 PO, l for 21:56: Q10Min, # [place] reconstitut 00 1 ea, 0 ion Refill(s), Pharmacy: [facility] [facility] Flagyl 2014-03 Yes 500 mg = 1 Memor ia 2-16 tab, PO, l 20:40: BID, # 14 Mart 00 tab, 0 Refill(s) Promethazin Yes 12.5 mg = M emoria e 11-30 1 tab, PO, l Hydrochlori 21:44: Q6H, José Miguel valderrama 12.5 MG 00 Nausea & Oral Tablet Vomiting, [Phenergan] # 20 tab, 0 Refill(s) Acetaminoph Yes 1 tab, PO, Memoria en 325 MG / 11-30 Q6H, Pain, l Hydrocodone 21:44: # 24 tab, H ermann Bitartrate 00 0 5 MG Oral Refill(s) Tablet [[place] 5/325] Phenergan No Notes: Do Mem oria 11-30 not give l 17:41: IV push. Mart 00 (Same as: Phenergan) Saline No Notes: Memoria Flush 0.9% 11-30 (Same as: l 17:25: BD [place] 00 Posiflush) Carafate Yes 0 Memoria 11-30 Refill(s) l 17:13: Promethazin Yes 0 Memori a e 11-30 Refill(s) l 17:12: acyclovir 5 acyclovir 5 No acyclovir [place] % topical % topical 5 % Commu ni ointment ointment topical ty APPLY TO APPLY TO ointment [facility] THE THE APPLY TO l AFFECTED AFFECTED THE Clinics AREA EVERY AREA EVERY AFFECTED 2 HOURS 2 HOURS AREA EVERY DURING DURING 2 HOURS AWAKE HOURS AWAKE HOURS DURING FOR 4 DAYS FOR 4 DAYS AWAKE HOURS FOR 4 DAYS amoxicillin amoxicillin No amoxicilli [place] 500 500 n 500 Communi mg-potassiu mg-potassiu [...] ty kit TEST kit TEST Test kit [facility] DIRECTED DIRECTED TEST l TODAY TODAY DIRECTED Clinics TODAY cephalexin cephalexin No cephalexin [place] 500 mg 500 mg 500 mg Communi capsule capsule capsule ty TAKE 1 TAKE 1 TAKE 1 Hospita CAPSULE BY CAPSULE BY CAPSULE BY l MOUTH TWICE MOUTH TWICE MOUTH Clinics DAILY DAILY TWICE DAILY estradiol estradiol No estradiol [place] 0.01% (0.1 0.01% (0.1 0.01% (0.1 [facility]i mg/gram) mg/gram) mg/gram) ty vaginal vaginal vaginal Hospit a cream cream cream l INSERT 1 INSERT 1 INSERT 1 Cli nics GRAM INTO GRAM INTO GRAM INTO VAGINA VAGINA VAGINA TWICE A TWICE A TWICE A WEEK AT WEEK AT WEEK AT NIGHT. NIGHT. NIGHT. fluconazole fluconazole No fluconazol [place] 150 mg 150 mg e 150 mg [facility]i tablet tablet tablet ty [facility] l Clinics hydroxyzine hydroxyzine No hydroxyzin [place] HCl 25 mg HCl 25 mg e [...] Kenalog 40 No 60mg Q1D Kenalog 40 [place] mg/mL mg/mL mg/mL Communi suspension suspension suspension ty for for for Hospita injection injection injection l Take 60 mg Take 60 mg Take 60 mg Clinics every day every day every day by by by injection injection injection route. route. route. metoprolol metoprolol No metoprolol [place] succinate succinate succinate Communi ER 25 mg ER 25 mg ER 25 mg ty tablet,exte tablet,exte tablet,ext Hospita nded nded ended l release 24 release 24 release 24 Clinics hr TAKE 1 hr TAKE 1 hr TAKE 1 TABLET BY TABLET BY TABLET BY MOUTH EVERY MOUTH EVERY MOUTH DAY DAY EVERY DAY metronidazo metronidazo No metronidaz [place] le 500 mg le 500 mg ole 500 mg Communi tablet TAKE tablet TAKE tablet ty 1 TABLET BY 1 TABLET BY TAKE 1 Hospita MOUTH EVERY MOUTH EVERY TABLET BY l 8 HOURS FOR 8 HOURS FOR MOUTH Clinics 7 DAYS 7 DAYS EVERY 8 HOURS FOR 7 DAYS omeprazole omeprazole No omeprazole [place] 20 mg 20 mg 20 mg [facility]i capsule,del capsule,del capsule,de ty ayed ayed layed Hospita release release release l TAKE 1 TAKE 1 TAKE 1 Clinics CAPSULE BY CAPSULE BY CAPSULE BY MOUTH DAILY MOUTH DAILY MOUTH DAILY ondansetron ondansetron No ondansetro [place] 4 mg 4 mg n 4 mg [...] 6 DAYS NEEDED paroxetine paroxetine No paroxetine [place] ER 25 mg ER 25 mg ER 25 mg Com ricci tablet,exte tablet,exte tablet,ext ty nded nded ended Hospita release 24 release 24 release 24 l hr TAKE 1 hr TAKE 1 hr TAKE 1 Clinics TABLET BY TABLET BY TABLET BY MOUTH EVERY MOUTH EVERY MOUTH DAY DAY EVERY DAY tobramycin tobramycin No tobramycin [place] 0.3 0.3 0.3 Communi %-dexametha %-dexametha %-dexameth [...] FOR 5 DAYS triamcinolo triamcinolo No triamcinol [place] ne ne one Communi acetonide acetonide acetonide [...] FOR 7 DAYS trimethopri trimethopri No trimethopr [place] m 100 mg m 100 mg im 100 mg Co mmuni tablet TAKE tablet TAKE tablet ty 1 TABLET BY 1 TABLET BY TAKE 1 Hospita MOUTH EVERY MOUTH EVERY TABLET BY l DAY DAY MOUTH Clinics EVERY DAY valacyclovi valacyclovi No valacyclov [place] r 1 gram r 1 gram ir 1 gram Co [facility]i tablet TAKE tablet TAKE tablet ty 1 TABLET BY 1 TABLET BY TAKE 1 Hospita MOUTH TWICE MOUTH TWICE TABLET BY l DAILY prn DAILY prn MOUTH Clin ics TWICE DAILY prn amoxicillin amoxicillin No amoxicilli [place] [id number] n 875 Communi mg-potassiu mg-potassiu mg-potassi ty m m um Hospita clavulanate clavulanate clavulanat l 125 mg 125 mg e 125 mg Clinics tablet tablet tablet Flagyl 500 Flagyl 500 No 1 Q8H Flagyl 500 [place] mg tablet mg tablet mg tablet Communi Take 1 Take 1 Take 1 ty tablet tablet tablet Hospita every 8 every 8 every 8 l hours by hours by hours by Cli nics oral route. oral route. oral route. prednisone prednisone No 1 BID prednisone [place] 20 mg 20 mg 20 mg Communi tablet Take tablet Take tablet ty 1 tablet 1 tablet Take 1 Hospi ta twice a day twice a day tablet l by oral by oral twice a Clinic s route for 5 route for 5 day by days. days. oral route for 5 days. Valtrex 1 Valtrex 1 No 1 TID Valtrex 1 [place] gram tablet gram tablet gram C ommuni Take 1 Take 1 tablet ty tablet 3 tablet 3 Take 1 Hospi ta times a day times a day tablet 3 l by oral by oral times a Clinic s route for 7 route for 7 day by days. days. oral route for 7 days. Vistaril 25 Vistaril 25 No 1capsul Q7H Vistaril [place] mg capsule mg capsule e(s) 25 mg Co mmuni Take 1 Take 1 capsule ty capsule capsule Take 1 Hospita every 6-8 every 6-8 capsule l hours by hours by every 6-8 Cl inics oral route oral route hours by as needed. as needed. oral route as needed. dicyclomine dicyclomine No 1 TID dicyclomin [place] 20 mg 20 mg e 20 mg Communi tablet Take tablet Take tablet ty 1 tablet 3 1 tablet 3 Take 1 H ospita times a day times a day tablet 3 l by oral by oral times a Clinic s route as route as day by needed. needed. oral route as needed. hyoscyamine hyoscyamine No hyoscyamin [place] 0.125 mg 0.125 mg e 0.125 mg C ommuni sublingual sublingual sublingual ty tablet tablet tablet Hospita l Clinics ivermectin ivermectin No 2 BID ivermectin [place] 3 mg tablet 3 mg tablet 3 mg C ommuni Take 2 Take 2 tablet ty tablets tablets Take 2 Hospita twice a day twice a day tablets l by oral by oral twice a Clinic s route. route. day by oral route. Denavir 1 % Denavir 1 % No Denavir 1 [place] topical topical % topical Comm uni cream [...] FOR 4 DAYS Pataday Pataday No Pataday [place] Once Daily Once Daily Once Daily Communi [...] DAILY valacyclovi valacyclovi No 1 TID valacyclov [place] r 1 gram r 1 gram ir [...] % Denavir 1 % No Denavir 1 [place] topical topical % topical Comm uni cream [...] FOR 4 DAYS Pataday Pataday No Pataday [place] Once Daily Once Daily Once Daily Communi [...] DAILY valacyclovi valacyclovi No 1 TID valacyclov [place] r 1 gram r 1 gram ir [...] days. acyclovir 5 acyclovir 5 No acyclovir [place] % topical % topical 5 % Commu [...] DAYS cefdinir cefdinir No 1capsul Q12H cefdinir [place] 300 mg 300 mg e(s) 300 mg Communi capsule capsule capsule ty Take 1 Take 1 Take 1 Hospita capsule capsule capsule l every 12 every 12 every 12 Cli nics hours by hours by hours by oral route. oral route. oral route. Denavir 1 % Denavir 1 % No Denavir 1 [place] topical topical % topical Comm uni cream [...] FOR 4 DAYS hyoscyamine hyoscyamine No hyoscyamin [place] 0.125 mg 0.125 mg e 0.125 mg C ommuni disintegrat disintegrat disintegra ty ing tablet ing tablet ting [facility] tablet l Clinics Pataday Pataday No Pataday [place] Once Daily Once Daily Once Daily [facility]i Relief 0.2 Relief 0.2 Relief 0.2 ty % eye drops % eye drops % eye Hospita INSTILL 1 INSTILL 1 drops l DROP INTO DROP INTO INSTILL 1 Clinics AFFECTED AFFECTED DROP INTO EYE(S) BY EYE(S) BY AFFECTED OPHTHALMIC OPHTHALMIC EYE(S) BY ROUTE ONCE ROUTE ONCE OPHTHALMIC DAILY DAILY ROUTE ONCE DAILY sulfamethox sulfamethox No sulfametho [place] azole 800 azole 800 xazole 800 Communi mg-trimetho mg-trimetho mg-trimeth ty prim 160 mg prim 160 mg oprim 160 Hospita tablet tablet mg tablet l Clinics valacyclovi valacyclovi No 1 TID valacyclov [place] r 1 gram r 1 gram ir [...] days. acyclovir 5 acyclovir 5 No acyclovir [place] % topical % topical 5 % Commu ni ointment ointment topical ty APPLY TO APPLY TO ointment [facility] THE THE APPLY TO l AFFECTED AFFECTED THE Clinics AREA EVERY AREA EVERY AFFECTED 2 HOURS 2 HOURS AREA EVERY DURING DURING 2 HOURS AWAKE HOURS AWAKE HOURS DURING FOR 4 DAYS FOR 4 DAYS AWAKE HOURS FOR 4 DAYS carbamazepi carbamazepi No carbamazep [place] ne ER 100 ne ER 100 ine ER 100 Communi mg mg mg ty tablet,exte tablet,exte tablet,ext Hospita nded nded ended l release,12 release,12 release,12 Clinics hr TAKE 1 hr TAKE 1 hr TAKE 1 TABLET BY TABLET BY TABLET BY MOUTH EVERY MOUTH EVERY MOUTH 12 HOURS 12 HOURS EVERY 12 HOURS hyoscyamine hyoscyamine No hyoscyamin [place] 0.125 mg 0.125 mg e 0.125 mg C om[facility]i disintegrat disintegrat disintegra ty ing tablet ing tablet ting [facility] tablet l Clinics valacyclovi valacyclovi No valacyclov [place] r 1 gram r 1 gram ir 1 gram Co m[facility]i tablet TAKE tablet TAKE tablet ty 1 TABLET BY 1 TABLET BY TAKE 1 Hospita MOUTH EVERY MOUTH EVERY TABLET BY l DAY FOR 30 DAY FOR 30 MOUTH Cl inics DAYS DAYS EVERY DAY FOR 30 DAYS acyclovir 5 acyclovir 5 No acyclovir [place] % topical % topical 5 % Commu [...] DAYS clonidine clonidine No 1 Q1D clonidine [place] HCl ER 0.1 HCl ER 0.1 HCl [...] evening. DripDrop DripDrop No 1packet Q1D DripDrop [place] 305 mg-175 305 mg-175 (s) 305 mg-175 Communi mg-70 mg mg-70 mg mg-70 mg ty oral powder oral powder oral H ospita packet Take packet Take powder l 1 packet 1 packet packet Clini cs every day every day Take 1 by oral by oral packet route as route as every day needed. needed. by oral route as needed. hyoscyamine hyoscyamine No hyoscyamin [place] 0.125 mg 0.125 mg e 0.125 mg C om[facility]i disintegrat disintegrat disintegra ty ing tablet ing tablet ting [facility] tablet l Clinics Kenalog 40 Kenalog 40 No .5mL Q1D Kenalog 40 [place] mg/mL mg/mL mg/mL Communi suspension suspension suspension ty for for for Hospita injection injection injection l Take 0.5 mL Take 0.5 mL Take 0.5 Clinics every day every day mL every by by day by injection injection injection route for 1 route for 1 route for day. day. 1 day. lidocaine lidocaine No 2mL Q1D lidocaine [place] (PF) 10 (PF) 10 (PF) 10 Commun i mg/mL (1 %) mg/mL (1 %) mg/mL (1 ty injection injection %) Hospi ta solution solution injection l Take 2 mL Take 2 mL solution C linics every day every day Take 2 mL by by every day injection injection by route. route. injection route. pantoprazol pantoprazol No 1 Q1D pantoprazo [place] e 40 mg e 40 mg le 40 mg Commu ni tablet,hodan tablet,hodan tablet,del ty yed release yed release ayed H ospita Take 1 Take 1 release l tablet tablet Take 1 Clinics every day every day tablet by oral by oral every day route. route. by oral route. valacyclovi valacyclovi No valacyclov [place] r 1 gram r 1 gram ir 1 gram Co mmuni tablet TAKE tablet TAKE tablet ty 1 TABLET BY 1 TABLET BY TAKE 1 Hospita MOUTH EVERY MOUTH EVERY TABLET BY l DAY FOR 30 DAY FOR 30 MOUTH Cl inics DAYS DAYS EVERY DAY FOR 30 DAYS Artificial Artificial No 1drop(s Q1D Artificial [place] Tears Tears ) Tears Communi (polyvinyl (polyvinyl (polyvinyl ty alcohol) alcohol) alcohol) [facility] 1.4 % eye 1.4 % eye 1.4 % eye l drops Apply drops Apply drops Clinics 1 drop 1 drop Apply 1 every day every day drop every by by day by ophthalmic ophthalmic ophthalmic route. route. route. azithromyci azithromyci No 1 Q1D azithromyc [place] n 500 mg n 500 mg in 500 mg Co mmuni tablet Take tablet Take tablet ty 1 tablet 1 tablet Take 1 Hospi ta every day every day tablet l by oral by oral every day Clin ics route for 5 route for 5 by oral days. days. route for 5 days. DripDrop DripDrop No 1packet Q1D DripDrop [place] 305 mg-175 305 mg-175 (s) 305 mg-175 Communi mg-70 mg mg-70 mg mg-70 mg ty oral powder oral powder oral H ospita packet Take packet Take powder l 1 packet 1 packet packet Clini cs every day every day Take 1 by oral by oral packet route as route as every day needed. needed. by oral route as needed. hyoscyamine hyoscyamine No hyoscyamin [place] 0.125 mg 0.125 mg e 0.125 mg C [facility]i disintegrat disintegrat disintegra ty ing tablet ing tablet ting [facility] tablet l Clinics pantoprazol pantoprazol No pantoprazo [place] e 40 mg e 40 mg le 40 mg Commu ni tablet,hodan tablet,hodan tablet,del ty yed release yed release ayed H ospita TAKE 1 TAKE 1 release l TABLET BY TABLET BY TAKE 1 Cli nics MOUTH EVERY MOUTH EVERY TABLET BY DAY DAY MOUTH EVERY DAY acetylcyste acetylcyste No 1capsul BID acetylcyst [place] ine 600 mg ine 600 mg e(s) eine 600 Communi capsule capsule mg capsule ty Take 1 Take 1 Take 1 Hospita capsule capsule capsule l twice a day twice a day twice a Clinics by oral by oral day by route. route. oral route. Artificial Artificial No 1drop(s Q1D Artificial [place] Tears Tears ) Tears Communi (polyvinyl (polyvinyl (polyvinyl ty alcohol) alcohol) alcohol) [facility] 1.4 % eye 1.4 % eye 1.4 % eye l drops Apply drops Apply drops Clinics 1 drop 1 drop Apply 1 every day every day drop every by by day by ophthalmic ophthalmic ophthalmic route. route. route. Effexor XR Effexor XR No 1capsul Q1D Effexor XR [place] 75 mg 75 mg e(s) 75 mg Communi capsule,ext capsule,ext capsule,ex ty ended ended tended Hospita release release release l Take 1 Take 1 Take 1 Clinics capsule capsule capsule every day every day every day by oral by oral by oral route for route for route for 90 days. 90 days. 90 days. hyoscyamine hyoscyamine No hyoscyamin [place] 0.125 mg 0.125 mg e 0.125 mg C om[facility]i disintegrat disintegrat disintegra ty ing tablet ing tablet ting [facility] tablet l Clinics pantoprazol pantoprazol No pantoprazo [place] e 40 mg e 40 mg le 40 mg Commu ni tablet,hodan tablet,hodan tablet,del ty yed release yed release ayed H ospita TAKE 1 TAKE 1 release l TABLET BY TABLET BY TAKE 1 Cli nics MOUTH EVERY MOUTH EVERY TABLET BY DAY DAY MOUTH EVERY DAY acetylcyste acetylcyste No 1capsul BID acetylcyst [place] ine 600 mg ine 600 mg e(s) eine 600 Communi capsule capsule mg capsule ty Take 1 Take 1 Take 1 Hospita capsule capsule capsule l twice a day twice a day twice a Clinics by oral by oral day by route. route. oral route. Artificial Artificial No 1drop(s Q1D Artificial [place] Tears Tears ) Tears [facility]i (polyvinyl (polyvinyl (polyvinyl ty alcohol) alcohol) alcohol) [facility] 1.4 % eye 1.4 % eye 1.4 % eye l drops Apply drops Apply drops Clinics 1 drop 1 drop Apply 1 every day every day drop every by by day by ophthalmic ophthalmic ophthalmic route. route. route. Effexor XR Effexor XR No 1capsul Q1D Effexor XR [place] 75 mg 75 mg e(s) 75 mg Communi capsule,ext capsule,ext capsule,ex ty ended ended tended Hospita release release release l Take 1 Take 1 Take 1 Clinics capsule capsule capsule every day every day every day by oral by oral by oral route for route for route for 90 days. 90 days. 90 days. hyoscyamine hyoscyamine No hyoscyamin [place] 0.125 mg 0.125 mg e 0.125 mg C [facility]i disintegrat disintegrat disintegra ty ing tablet ing tablet ting [facility] tablet l Clinics pantoprazol pantoprazol No pantoprazo [place] e 40 mg e 40 mg le 40 mg Commu ni tablet,hodan tablet,hodan tablet,del ty yed release yed release ayed H ospita TAKE 1 TAKE 1 release l TABLET BY TABLET BY TAKE 1 Cli nics MOUTH EVERY MOUTH EVERY TABLET BY DAY DAY MOUTH EVERY DAY acyclovir acyclovir No 1 Q1D acyclovir [place] 400 mg 400 mg 400 mg Communi tablet Take tablet Take tablet ty 1 tablet 1 tablet Take 1 Hospi ta every day every day tablet l by oral by oral every day Clin ics route for route for by oral 30 days. 30 days. route for 30 days. amoxicillin amoxicillin No amoxicilli [place] [id number] n 875 Communi mg-potassiu mg-potassiu mg-potassi ty m m um [facility] clavulanate clavulanate clavulanat l 125 mg 125 mg e 125 mg Clinics tablet TAKE tablet TAKE tablet 1 TABLET BY 1 TABLET BY TAKE 1 MOUTH EVERY MOUTH EVERY TABLET BY 12 HOURS 12 HOURS MOUTH EVERY 12 HOURS metronidazo metronidazo No metronidaz [place] le 500 mg le 500 mg ole 500 mg Communi tablet TAKE tablet TAKE tablet ty 1 TABLET BY 1 TABLET BY TAKE 1 Hospita MOUTH EVERY MOUTH EVERY TABLET BY l 8 HOURS 8 HOURS MOUTH Clinics EVERY 8 HOURS ondansetron ondansetron No ondansetro [place] 4 mg 4 mg n 4 mg Communi disintegrat disintegrat disintegra ty ing tablet ing tablet ting [facility] tablet l Clinics Xifaxan 550 Xifaxan 550 No 1 BID Xifaxan [place] mg tablet mg tablet 550 mg Com ricci Take 1 Take 1 tablet ty tablet tablet Take 1 Hospita twice a day twice a day tablet l by oral by oral twice a Clinic s route. route. day by oral route. acyclovir acyclovir No acyclovir [place] 400 mg 400 mg 400 mg Communi [...] by oral route. metronidazo metronidazo No metronidaz [place] le 500 mg le 500 mg ole 500 mg Communi tablet TAKE tablet TAKE tablet ty 1 TABLET BY 1 TABLET BY TAKE 1 Hospita MOUTH EVERY MOUTH EVERY TABLET BY l 8 HOURS 8 HOURS MOUTH Clinics EVERY 8 HOURS ondansetron ondansetron No ondansetro [place] 4 mg 4 mg n 4 mg Communi disintegrat disintegrat disintegra ty ing tablet ing tablet ting [facility] tablet l Clinics pantoprazol pantoprazol No pantoprazo [place] e 40 mg e 40 mg le 40 mg Commu ni tablet,hodan tablet,hodan tablet,del ty yed release yed release ayed H ospita release l Clinics peg peg No peg [place] 3350-electr 3350-electr 3350-elect Communi olytes 236 olytes 236 rolytes ty gram-22.74 gram-22.74 236 [facility] gram-6.74 gram-6.74 gram-22.74 l gram-5.86 gram-5.86 gram-6.74 Clinics gram gram gram-5.86 solution solution gram MIX AND MIX AND solution DRINK DRINK MIX AND DIRECTED DIRECTED DRINK DIRECTED sucralfate sucralfate No 1 QID sucralfate [place] 1 gram 1 gram 1 gram Communi tablet Take tablet Take tablet ty 1 tablet 4 1 tablet 4 Take 1 H ospita times a day times a day tablet 4 l by oral by oral times a Clinic s route. route. day by oral route. venlafaxine venlafaxine No venlafaxin [place] ER 75 mg ER 75 mg e ER 75 mg C [facility]i capsule,ext capsule,ext capsule,ex ty ended ended tended Hospita release 24 release 24 release 24 l hr hr hr Clinics Xifaxan 550 Xifaxan 550 No Xifaxan [place] mg tablet mg tablet 550 mg Com ricci Take 1 Take 1 tablet ty tablet tablet Take 1 Hospita twice a day twice a day tablet l by oral by oral twice a Clinic s route. route. day by oral route. dexamethaso dexamethaso No 10mg dexamethas [place] ne sodium ne sodium one sodium Communi phosphate phosphate phosphate ty 10 mg/mL 10 mg/mL 10 mg/mL [facility] injection injection injection l solution solution solution Cli nics Take 10 mg Take 10 mg Take 10 mg by by by injection injection injection route. route. route. dicyclomine dicyclomine No 1 TID dicyclomin [place] 20 mg 20 mg e 20 mg Communi tablet Take tablet Take tablet ty 1 tablet 3 1 tablet 3 Take 1 H ospita times a day times a day tablet 3 l by oral by oral times a Clinic s route as route as day by needed. needed. oral route as needed. gabapentin gabapentin No 1capsul BID gabapentin [place] 300 mg 300 mg e(s) 300 mg Communi capsule capsule capsule ty Take 1 Take 1 Take 1 Hospita capsule capsule capsule l twice a day twice a day twice a Clinics by oral by oral day by route. route. oral route. montelukast montelukast No 1 Q1D montelukas [place] 10 mg 10 mg t 10 mg Communi tablet Take tablet Take tablet ty 1 tablet 1 tablet Take 1 Hospi ta every day every day tablet l by oral by oral every day Clin ics route. route. by oral route. acyclovir 5 acyclovir 5 No acyclovir [place] % topical % topical 5 % Commu [...] Bactrim DS No 1 Q12H Bactrim DS [place] 800 mg-160 800 mg-160 800 mg-160 Communi mg tablet mg tablet mg tablet ty Take 1 Take 1 Take 1 Hospita tablet tablet tablet l every 12 every 12 every 12 Cli nics hours by hours by hours by oral route oral route oral route for 10 for 10 for 10 days. days. days. diclofenac diclofenac No diclofenac [place] 1 % topical 1 % topical 1 [...] route. valacyclovi valacyclovi No 1 BID valacyclov [place] r 1 gram r 1 gram ir 1 gram [facility] tablet Take tablet Take tablet ty 1 tablet 1 tablet Take 1 Hospi ta twice a day twice a day tablet l by oral by oral twice a Clinic s route. route. day by oral route. acyclovir 5 acyclovir 5 No acyclovir [place] % topical % topical 5 % Commu ni ointment ointment topical ty APPLY TO APPLY TO ointment [facility] THE THE APPLY TO l AFFECTED AFFECTED THE Clinics AREA EVERY AREA EVERY AFFECTED 2 HOURS 2 HOURS AREA EVERY DURING DURING 2 HOURS AWAKE HOURS AWAKE HOURS DURING FOR 4 DAYS FOR 4 DAYS AWAKE HOURS FOR 4 DAYS diclofenac diclofenac No diclofenac [place] 1 % topical 1 % topical 1 % [facility] gel APPLY 2 gel APPLY 2 topical ty GRAMS GRAMS gel APPLY Hospita TOPICALLY TOPICALLY 2 GRAMS l TO THE TO THE TOPICALLY Clinic s AFFECTED AFFECTED TO THE AREA FOUR AREA FOUR AFFECTED TIMES DAILY TIMES DAILY AREA FOUR TIMES DAILY phenazopyri phenazopyri No phenazopyr [place] dine 200 mg dine 200 mg idine 200 [facility] tablet TAKE tablet TAKE mg tablet ty 1 TABLET BY 1 TABLET BY TAKE 1 Hospita MOUTH EVERY MOUTH EVERY TABLET BY l 8 HOURS 8 HOURS MOUTH Clinics EVERY 8 HOURS sulfamethox sulfamethox No sulfametho [place] azole 800 azole 800 xazole 800 [facility] mg-trimetho mg-trimetho mg-trimeth ty prim 160 mg prim 160 mg oprim 160 Hospita tablet TAKE tablet TAKE mg tablet l 1 TABLET BY 1 TABLET BY TAKE 1 Clinics MOUTH EVERY MOUTH EVERY TABLET BY 12 HOURS 12 HOURS MOUTH FOR 10 DAYS FOR 10 DAYS EVERY 12 HOURS FOR 10 DAYS valacyclovi valacyclovi No valacyclov [place] r 1 gram r 1 gram ir 1 gram [facility] tablet TAKE tablet TAKE tablet ty 1 TABLET BY 1 TABLET BY TAKE 1 Hospita MOUTH TWICE MOUTH TWICE TABLET BY l DAILY DAILY MOUTH Clinics TWICE DAILY acyclovir 5 acyclovir 5 No acyclovir [place] % topical % topical 5 % [facility] ni ointment ointment topical ty APPLY TO APPLY TO ointment [facility] THE THE APPLY TO l AFFECTED AFFECTED THE Clinics AREA EVERY AREA EVERY AFFECTED 2 HOURS 2 HOURS AREA EVERY DURING DURING 2 HOURS AWAKE HOURS AWAKE HOURS DURING FOR 4 DAYS FOR 4 DAYS AWAKE HOURS FOR 4 DAYS cefuroxime cefuroxime No cefuroxime [place] axetil 500 axetil 500 axetil 500 [facility] mg tablet mg tablet mg tablet ty TAKE 1 TAKE 1 TAKE 1 Hospita TABLET BY TABLET BY TABLET BY l MOUTH EVERY MOUTH EVERY MOUTH Clinics 12 HOURS 12 HOURS EVERY 12 FOR 7 DAYS FOR 7 DAYS HOURS FOR 7 DAYS diclofenac diclofenac No diclofenac [place] 1 % topical 1 % topical 1 % [facility] gel APPLY 2 gel APPLY 2 topical ty GRAMS GRAMS gel APPLY Hospita TOPICALLY TOPICALLY 2 GRAMS l TO THE TO THE TOPICALLY Clinic s AFFECTED AFFECTED TO THE AREA FOUR AREA FOUR AFFECTED TIMES DAILY TIMES DAILY AREA FOUR TIMES DAILY dicyclomine dicyclomine No dicyclomin [place] 20 mg 20 mg e 20 mg [facility] tablet TAKE tablet TAKE tablet ty 1 TABLET BY 1 TABLET BY TAKE 1 Hospita MOUTH 4 MOUTH 4 TABLET BY l TIMES A DAY TIMES A DAY MOUTH 4 Clinics NEEDED NEEDED TIMES A DAY NEEDED phenazopyri phenazopyri No phenazopyr [place] dine 200 mg dine 200 mg idine 200 [facility] tablet TAKE tablet TAKE mg tablet ty 1 TABLET BY 1 TABLET BY TAKE 1 Hospita MOUTH EVERY MOUTH EVERY TABLET BY l 8 HOURS FOR 8 HOURS FOR MOUTH Clinics 2 DAYS 2 DAYS EVERY 8 HOURS FOR 2 DAYS sulfamethox sulfamethox No sulfametho [place] azole 800 azole 800 xazole 800 [facility] mg-trimetho mg-trimetho mg-trimeth ty prim 160 mg prim 160 mg oprim 160 Hospita tablet TAKE tablet TAKE mg tablet l 1 TABLET BY 1 TABLET BY TAKE 1 Clinics MOUTH EVERY MOUTH EVERY TABLET BY 12 HOURS 12 HOURS MOUTH FOR 10 DAYS FOR 10 DAYS EVERY 12 HOURS FOR 10 DAYS valacyclovi valacyclovi No valacyclov [place] r 1 gram r 1 gram ir 1 gram [facility] tablet TAKE tablet TAKE tablet ty 1 TABLET BY 1 TABLET BY TAKE 1 Hospita MOUTH TWICE MOUTH TWICE TABLET BY l DAILY DAILY MOUTH Clinics TWICE DAILY acyclovir 5 acyclovir 5 No acyclovir [place] % topical % topical 5 % [facility] ni ointment ointment topical ty APPLY TO APPLY TO ointment [facility] THE THE APPLY TO l AFFECTED AFFECTED THE Clinics AREA EVERY AREA EVERY AFFECTED 2 HOURS 2 HOURS AREA EVERY DURING DURING 2 HOURS AWAKE HOURS AWAKE HOURS DURING FOR 4 DAYS FOR 4 DAYS AWAKE HOURS FOR 4 DAYS amoxicillin amoxicillin No amoxicilli [place] 500 500 n 500 [facility] mg-potassiu mg-potassiu [...] FOR 7 DAYS amoxicillin amoxicillin No amoxicilli [place] [id number] 875 [facility] mg-potassiu mg-potassiu mg-potassi ty m m um Hospita clavulanate clavulanate clavulanat l 125 mg 125 mg e 125 mg Clinics tablet TAKE tablet TAKE tablet 1 TABLET BY 1 TABLET BY TAKE 1 MOUTH TWICE MOUTH TWICE TABLET BY DAILY FOR 7 DAILY FOR 7 MOUTH DAYS DAYS TWICE DAILY FOR 7 DAYS cefuroxime cefuroxime No cefuroxime [place] axetil 500 axetil 500 axetil 500 [facility] mg tablet mg tablet mg tablet ty TAKE 1 TAKE 1 TAKE 1 Hospita TABLET BY TABLET BY TABLET BY l MOUTH EVERY MOUTH EVERY MOUTH Clinics 12 HOURS 12 HOURS EVERY 12 FOR 7 DAYS FOR 7 DAYS HOURS FOR 7 DAYS diclofenac diclofenac No diclofenac [place] 1 % topical 1 % topical 1 % [facility] gel APPLY 2 gel APPLY 2 topical ty GRAMS GRAMS gel APPLY Hospita TOPICALLY TOPICALLY 2 GRAMS l TO THE TO THE TOPICALLY Clinic s AFFECTED AFFECTED TO THE AREA FOUR AREA FOUR AFFECTED TIMES DAILY TIMES DAILY AREA FOUR TIMES DAILY dicyclomine dicyclomine No dicyclomin [place] 20 mg 20 mg e 20 mg [facility] tablet TAKE tablet TAKE tablet ty 1 TABLET BY 1 TABLET BY TAKE 1 Hospita MOUTH 4 MOUTH 4 TABLET BY l TIMES A DAY TIMES A DAY MOUTH 4 Clinics NEEDED NEEDED TIMES A DAY NEEDED estradiol estradiol No estradiol [place] 0.01% (0.1 0.01% (0.1 0.01% (0.1 [facility] mg/gram) mg/gram) mg/gram) ty vaginal vaginal vaginal Hospit a cream cream cream l INSERT 1 INSERT 1 INSERT 1 Cli nics GRAM INTO GRAM INTO GRAM INTO VAGINA VAGINA VAGINA TWICE A TWICE A TWICE A WEEK AT WEEK AT WEEK AT NIGHT. NIGHT. NIGHT. fluconazole fluconazole No fluconazol [place] 150 mg 150 mg e 150 mg [facility] tablet TAKE tablet TAKE tablet ty 1 TABLET BY 1 TABLET BY TAKE 1 Hospita MOUTH EVERY MOUTH EVERY TABLET BY l 72 HOURS 72 HOURS MOUTH Clinic s EVERY 72 HOURS metoprolol metoprolol No metoprolol [place] succinate succinate succinate [facility] ER 25 mg ER 25 mg ER 25 mg ty tablet,exte tablet,exte tablet,ext Hospita nded nded ended l release 24 release 24 release 24 Clinics hr TAKE 1 hr TAKE 1 hr TAKE 1 TABLET BY TABLET BY TABLET BY MOUTH EVERY MOUTH EVERY MOUTH DAY DAY EVERY DAY nitrofurant nitrofurant No nitrofuran [place] oin oin toin [facility] monohydrate monohydrate monohydrat ty /macrocryst /macrocryst e/macrocry Hospita als 100 mg als 100 mg stals 100 l capsule capsule mg capsule Cli nics oxybutynin oxybutynin No oxybutynin [place] chloride ER chloride ER chloride [facility] 5 mg 5 mg ER 5 mg ty tablet,exte tablet,exte tablet,ext Hospita nded nded ended l release 24 release 24 release 24 Clinics hr TAKE 1 hr TAKE 1 hr TAKE 1 TABLET BY TABLET BY TABLET BY MOUTH EVERY MOUTH EVERY MOUTH DAY DAY EVERY DAY phenazopyri phenazopyri No phenazopyr [place] dine 200 mg dine 200 mg idine 200 [facility] tablet TAKE tablet TAKE mg tablet ty 1 TABLET BY 1 TABLET BY TAKE 1 Hospita MOUTH EVERY MOUTH EVERY TABLET BY l 8 HOURS FOR 8 HOURS FOR MOUTH Clinics 2 DAYS 2 DAYS EVERY 8 HOURS FOR 2 DAYS sulfamethox sulfamethox No sulfametho [place] azole 800 azole 800 xazole 800 Communi [...] Suprax 400 No 1capsul Q1D Suprax 400 [place] mg capsule mg capsule e(s) mg capsule [facility] Take 1 Take 1 Take 1 ty capsule capsule capsule Hospit a every day every day every day l by oral by oral by oral Clinic s route for 7 route for 7 route for days. days. 7 days. valacyclovi valacyclovi No valacyclov [place] r 1 gram r 1 gram ir 1 gram [facility] tablet TAKE tablet TAKE tablet ty 1 TABLET BY 1 TABLET BY TAKE 1 Hospita MOUTH TWICE MOUTH TWICE TABLET BY l DAILY DAILY MOUTH Clinics TWICE DAILY acyclovir 5 acyclovir 5 No acyclovir [place] % topical % topical 5 % Com[facility] ni ointment ointment topical ty APPLY TO APPLY TO ointment [facility] THE THE APPLY TO l AFFECTED AFFECTED THE Clinics AREA EVERY AREA EVERY AFFECTED 2 HOURS 2 HOURS AREA EVERY DURING DURING 2 HOURS AWAKE HOURS AWAKE HOURS DURING FOR 4 DAYS FOR 4 DAYS AWAKE HOURS FOR 4 DAYS estradiol estradiol No estradiol [place] 0.01% (0.1 0.01% (0.1 0.01% (0.1 [facility] mg/gram) mg/gram) mg/gram) ty vaginal vaginal vaginal Hospit a cream cream cream l INSERT 1 INSERT 1 INSERT 1 Cli nics GRAM INTO GRAM INTO GRAM INTO VAGINA VAGINA VAGINA TWICE A TWICE A TWICE A WEEK AT WEEK AT WEEK AT NIGHT. NIGHT. NIGHT. metoprolol metoprolol No metoprolol [place] succinate succinate succinate [facility] ER 25 mg [...] CR 25 No 1 Q1D Paxil CR [place] mg mg 25 mg [facility] tablet,exte tablet,exte tablet,ext ty nded nded ended Hospita release release release l Take 1 Take 1 Take 1 Clinics tablet tablet tablet every day every day every day by oral by oral by oral route. route. route. Suprax 400 Suprax 400 No 1capsul Q1D Suprax 400 [place] mg capsule mg capsule e(s) mg capsule [...] HOURS 5 days valacyclovi valacyclovi No valacyclov [place] r 1 gram r 1 gram ir 1 gram [facility] tablet TAKE tablet TAKE tablet ty 1 TABLET BY 1 TABLET BY TAKE 1 Hospita MOUTH TWICE MOUTH TWICE TABLET BY l DAILY DAILY MOUTH Clinics TWICE DAILY Zithromax Zithromax No Zithromax [place] Z-Andrew 250 Z-Andrew 250 Z-Andrew 250 Communi [...] DAYS acyclovir 5 acyclovir 5 No acyclovir [place] % topical % topical 5 % Commu ni ointment ointment topical ty APPLY TO APPLY TO ointment [facility] THE THE APPLY TO l AFFECTED AFFECTED THE Clinics AREA EVERY AREA EVERY AFFECTED 2 HOURS 2 HOURS AREA EVERY DURING DURING 2 HOURS AWAKE HOURS AWAKE HOURS DURING FOR 4 DAYS FOR 4 DAYS AWAKE HOURS FOR 4 DAYS estradiol estradiol No estradiol [place] 0.01% (0.1 0.01% (0.1 0.01% (0.1 [facility] mg/gram) mg/gram) mg/gram) ty vaginal vaginal vaginal Hospit a cream cream cream l INSERT 1 INSERT 1 INSERT 1 Cli nics GRAM INTO GRAM INTO GRAM INTO VAGINA VAGINA VAGINA TWICE A TWICE A TWICE A WEEK AT WEEK AT WEEK AT NIGHT. NIGHT. NIGHT. fluconazole fluconazole No fluconazol [place] 150 mg 150 mg e 150 mg [facility] tablet tablet tablet ty [facility]ospita l Clinics hydroxyzine hydroxyzine No 1 TID hydroxyzin [place] HCl 25 mg HCl 25 mg e [...] Kenalog 40 No 60mg Q1D Kenalog 40 [place] mg/mL mg/mL mg/mL [facility] suspension suspension suspension ty for for for Hospita injection injection injection l Take 60 mg Take 60 mg Take 60 mg Clinics every day every day every day by by by injection injection injection route. route. route. metoprolol metoprolol No metoprolol [place] succinate succinate succinate [facility] ER 25 mg ER 25 mg ER 25 mg ty tablet,exte tablet,exte tablet,ext [facility]ospita nded nded ended l release 24 release 24 release 24 Clinics hr TAKE 1 hr TAKE 1 hr TAKE 1 TABLET BY TABLET BY TABLET BY MOUTH EVERY MOUTH EVERY MOUTH DAY DAY EVERY DAY omeprazole omeprazole No omeprazole [place] 20 mg 20 mg 20 mg [facility] capsule,del capsule,del capsule,de ty ayed ayed layed Hospita release release release l TAKE 1 TAKE 1 TAKE 1 Clinics CAPSULE BY CAPSULE BY CAPSULE BY MOUTH DAILY MOUTH DAILY MOUTH DAILY paroxetine paroxetine No paroxetine [place] ER 25 mg ER 25 mg ER 25 mg Com ricci tablet,exte tablet,exte tablet,ext ty nded nded ended Hospita release 24 release 24 release 24 l hr TAKE 1 hr TAKE 1 hr TAKE 1 Clinics TABLET BY TABLET BY TABLET BY MOUTH EVERY MOUTH EVERY MOUTH DAY DAY EVERY DAY tobramycin tobramycin No tobramycin [place] 0.3 0.3 0.3 [facility] %-dexametha %-dexametha %-dexameth [...] FOR 5 DAYS triamcinolo triamcinolo No triamcinol [place] ne ne one [facility] acetonide acetonide acetonide [...] days days days trimethopri trimethopri No trimethopr [place] m 100 mg m 100 mg im 100 mg [facility] tablet TAKE tablet TAKE tablet ty 1 TABLET BY 1 TABLET BY TAKE 1 Hospita MOUTH EVERY MOUTH EVERY TABLET BY l DAY DAY MOUTH Clinics EVERY DAY valacyclovi valacyclovi No valacyclov [place] r 1 gram r 1 gram ir 1 gram [facility] tablet TAKE tablet TAKE tablet ty 1 TABLET BY 1 TABLET BY TAKE 1 Hospita MOUTH TWICE MOUTH TWICE TABLET BY l DAILY prn DAILY prn MOUTH Clin ics TWICE DAILY prn acyclovir 5 acyclovir 5 No acyclovir [place] % topical % topical 5 % Commu [...] DAYS Augmentin Augmentin No 1 Q12H Augmentin [place] 500 mg-125 500 mg-125 500 mg-125 [facility] mg tablet mg tablet mg tablet ty Take 1 Take 1 Take 1 Hospita tablet tablet tablet l every 12 every 12 every 12 Cli nics hours by hours by hours by oral route oral route oral route for 10 for 10 for 10 days. days. days. cephalexin cephalexin No cephalexin [place] 500 mg 500 mg 500 mg [facility] capsule capsule capsule ty TAKE 1 TAKE 1 TAKE 1 Hospita CAPSULE BY CAPSULE BY CAPSULE BY l MOUTH TWICE MOUTH TWICE MOUTH Clinics DAILY DAILY TWICE DAILY estradiol estradiol No estradiol [place] 0.01% (0.1 0.01% (0.1 0.01% (0.1 [facility] mg/gram) mg/gram) mg/gram) ty vaginal vaginal vaginal Hospit a cream cream cream l INSERT 1 INSERT 1 INSERT 1 Cli nics GRAM INTO GRAM INTO GRAM INTO VAGINA VAGINA VAGINA TWICE A TWICE A TWICE A WEEK AT WEEK AT WEEK AT NIGHT. NIGHT. NIGHT. fluconazole fluconazole No fluconazol [place] 150 mg 150 mg e 150 mg [facility] tablet tablet tablet ty [facility]ospita l Clinics hydroxyzine hydroxyzine No hydroxyzin [place] HCl 25 mg HCl 25 mg e [...] Kenalog 40 No 60mg Q1D Kenalog 40 [place] mg/mL mg/mL mg/mL [facility] suspension suspension suspension ty for for for Hospita injection injection injection l Take 60 mg Take 60 mg Take 60 mg Clinics every day every day every day by by by injection injection injection route. route. route. metoprolol metoprolol No metoprolol [place] succinate succinate succinate [facility] ER 25 mg ER 25 mg ER 25 mg ty tablet,exte tablet,exte tablet,ext Hospita nded nded ended l release 24 release 24 release 24 Clinics hr TAKE 1 hr TAKE 1 hr TAKE 1 TABLET BY TABLET BY TABLET BY MOUTH EVERY MOUTH EVERY MOUTH DAY DAY EVERY DAY metronidazo metronidazo No 1 Q8H metronidaz [place] le 500 mg le 500 mg ole 500 mg [facility] tablet Take tablet Take tablet ty 1 tablet 1 tablet Take 1 Hospi ta every 8 every 8 tablet l hours by hours by every 8 Clin ics oral route oral route hours by for 7 days. for 7 days. oral route for 7 days. omeprazole omeprazole No omeprazole [place] 20 mg 20 mg 20 mg [facility] capsule,del capsule,del capsule,de ty ayed ayed layed Hospita release release release l TAKE 1 TAKE 1 TAKE 1 Clinics CAPSULE BY CAPSULE BY CAPSULE BY MOUTH DAILY MOUTH DAILY MOUTH DAILY ondansetron ondansetron No 1 Q6H ondansetro [place] 4 mg 4 mg n 4 mg [...] for 6 days. paroxetine paroxetine No paroxetine [place] ER 25 mg ER 25 mg ER 25 mg Com ricci tablet,exte tablet,exte tablet,ext ty nded nded ended Hospita release 24 release 24 release 24 l hr TAKE 1 hr TAKE 1 hr TAKE 1 Clinics TABLET BY TABLET BY TABLET BY MOUTH EVERY MOUTH EVERY MOUTH DAY DAY EVERY DAY tobramycin tobramycin No tobramycin [place] 0.3 0.3 0.3 [facility] %-dexametha %-dexametha %-dexameth [...] FOR 5 DAYS triamcinolo triamcinolo No triamcinol [place] ne ne one [facility] acetonide acetonide acetonide [...] FOR 7 DAYS trimethopri trimethopri No trimethopr [place] m 100 mg m 100 mg im 100 mg [facility] tablet TAKE tablet TAKE tablet ty 1 TABLET BY 1 TABLET BY TAKE 1 Hospita MOUTH EVERY MOUTH EVERY TABLET BY l DAY DAY MOUTH Clinics EVERY DAY valacyclovi valacyclovi No valacyclov [place] r 1 gram r 1 gram ir 1 gram [facility] tablet TAKE tablet TAKE tablet ty 1 TABLET BY 1 TABLET BY TAKE 1 Hospita MOUTH TWICE MOUTH TWICE TABLET BY l DAILY prn DAILY prn MOUTH Clin ics TWICE DAILY prn acyclovir 5 acyclovir 5 No acyclovir [place] % topical % topical 5 % Commu ni ointment ointment topical ty APPLY TO APPLY TO ointment [facility] THE THE APPLY TO l AFFECTED AFFECTED THE Clinics AREA EVERY AREA EVERY AFFECTED 2 HOURS 2 HOURS AREA EVERY DURING DURING 2 HOURS AWAKE HOURS AWAKE HOURS DURING FOR 4 DAYS FOR 4 DAYS AWAKE HOURS FOR 4 DAYS amoxicillin amoxicillin No amoxicilli [place] 500 500 n 500 [facility] mg-potassiu mg-potassiu [...] DAYS benzonatate benzonatate No 1capsul TID benzonatat [place] 100 mg 100 mg e(s) e 100 [...] ty kit TEST kit TEST Test kit [facility] DIRECTED DIRECTED TEST l TODAY TODAY DIRECTED Clinics TODAY cephalexin cephalexin No cephalexin [place] 500 mg 500 mg 500 mg [facility] capsule capsule capsule ty TAKE 1 TAKE 1 TAKE 1 Hospita CAPSULE BY CAPSULE BY CAPSULE BY l MOUTH TWICE MOUTH TWICE MOUTH Clinics DAILY DAILY TWICE DAILY estradiol estradiol No estradiol [place] 0.01% (0.1 0.01% (0.1 0.01% (0.1 [facility] mg/gram) mg/gram) mg/gram) ty vaginal vaginal vaginal Hospit a cream cream cream l INSERT 1 INSERT 1 INSERT 1 Cli nics GRAM INTO GRAM INTO GRAM INTO VAGINA VAGINA VAGINA TWICE A TWICE A TWICE A WEEK AT WEEK AT WEEK AT NIGHT. NIGHT. NIGHT. fluconazole fluconazole No fluconazol [place] 150 mg 150 mg e 150 mg [facility] tablet tablet tablet ty Hospita l Clinics hydroxyzine hydroxyzine No hydroxyzin [place] HCl 25 mg HCl 25 mg e [...] Kenalog 40 No 60mg Q1D Kenalog 40 [place] mg/mL mg/mL mg/mL [facility] suspension suspension suspension ty for for for Hospita injection injection injection l Take 60 mg Take 60 mg Take 60 mg Clinics every day every day every day by by by injection injection injection route. route. route. meloxicam meloxicam No 1 Q1D meloxicam [place] 15 mg 15 mg 15 mg [facility] tablet Take tablet Take tablet ty 1 tablet 1 tablet Take 1 Hospi ta every day every day tablet l by oral by oral every day Clin ics route for route for by oral 30 days. 30 days. route for 30 days. metoprolol metoprolol No metoprolol [place] succinate succinate succinate [facility] ER 25 mg ER 25 mg ER 25 mg ty tablet,exte tablet,exte tablet,ext Hospita nded nded ended l release 24 release 24 release 24 Clinics hr TAKE 1 hr TAKE 1 hr TAKE 1 TABLET BY TABLET BY TABLET BY MOUTH EVERY MOUTH EVERY MOUTH DAY DAY EVERY DAY metronidazo metronidazo No metronidaz [place] le 500 mg le 500 mg ole 500 mg [facility] tablet TAKE tablet TAKE tablet ty 1 TABLET BY 1 TABLET BY TAKE 1 Hospita MOUTH EVERY MOUTH EVERY TABLET BY l 8 HOURS FOR 8 HOURS FOR MOUTH Clinics 7 DAYS 7 DAYS EVERY 8 HOURS FOR 7 DAYS omeprazole omeprazole No omeprazole [place] 20 mg 20 mg 20 mg [facility] capsule,del capsule,del capsule,de ty ayed ayed layed Hospita release release release l TAKE 1 TAKE 1 TAKE 1 Clinics CAPSULE BY CAPSULE BY CAPSULE BY MOUTH DAILY MOUTH DAILY MOUTH DAILY ondansetron ondansetron No ondansetro [place] 4 mg 4 mg n 4 mg [...] 6 DAYS NEEDED paroxetine paroxetine No paroxetine [place] ER 25 mg ER 25 mg ER 25 mg Com ricci tablet,exte tablet,exte tablet,ext ty nded nded ended Hospita release 24 release 24 release 24 l hr TAKE 1 hr TAKE 1 hr TAKE 1 Clinics TABLET BY TABLET BY TABLET BY MOUTH EVERY MOUTH EVERY MOUTH DAY DAY EVERY DAY tobramycin tobramycin No tobramycin [place] 0.3 0.3 0.3 [facility] %-dexametha %-dexametha %-dexameth [...] DAYS tramadol 50 tramadol 50 No tramadol [place] mg tablet mg tablet 50 mg Comm uni tablet ty [facility] No triamcinol [place] ne ne one [facility] acetonide acetonide acetonide [...] FOR 7 DAYS trimethopri trimethopri No trimethopr [place] m 100 mg m 100 mg im 100 mg [facility] tablet TAKE tablet TAKE tablet ty 1 TABLET BY 1 TABLET BY TAKE 1 Hospita MOUTH EVERY MOUTH EVERY TABLET BY l DAY DAY MOUTH Clinics EVERY DAY valacyclovi valacyclovi No valacyclov [place] r 1 gram r 1 gram ir 1 gram [facility] tablet TAKE tablet TAKE tablet ty 1 TABLET BY 1 TABLET BY TAKE 1 Hospita MOUTH TWICE MOUTH TWICE TABLET BY l DAILY prn DAILY prn MOUTH Clin ics TWICE DAILY prn Zithromax Zithromax No Zithromax [place] Z-Andrew 250 Z-Andrew 250 Z-Andrew 250 Communi [...] DAYS cetirizine cetirizine No 1 Q1D cetirizine [place] 10 mg 10 mg 10 mg [facility] tablet Take tablet Take tablet ty 1 tablet 1 tablet Take 1 Hospi ta every day every day tablet l by oral by oral every day Clin ics route at route at by oral bedtime. bedtime. route at bedtime. estradiol estradiol No estradiol [place] 0.01% (0.1 0.01% (0.1 0.01% (0.1 [facility] mg/gram) mg/gram) mg/gram) ty vaginal vaginal vaginal Hospit a cream cream cream l INSERT 1 INSERT 1 INSERT 1 Cli nics GRAM INTO GRAM INTO GRAM INTO VAGINA VAGINA VAGINA TWICE A TWICE A TWICE A WEEK AT WEEK AT WEEK AT NIGHT. NIGHT. NIGHT. fluticasone fluticasone No 1spray( Q1D fluticason [place] propionate propionate s) e Com ricci 50 50 propionate ty mcg/actuati mcg/actuati 50 H ospita on nasal on nasal mcg/actuat l spray,suspe spray,suspe ion nasal Clinics nsion [place] nsion [place] spray,susp 1 spray 1 spray ension every day every day [place] 1 by by spray intranasal intranasal every day route. route. by intranasal route. meclizine meclizine No 1 TID meclizine [place] 25 mg 25 mg 25 mg [facility] tablet Take tablet Take tablet ty 1 tablet 3 1 tablet 3 Take 1 H [facility]spita times a day times a day tablet 3 l by oral by oral times a Clinic s route as route as day by needed. needed. oral route as needed. ondansetron ondansetron No ondansetro [place] 4 mg 4 mg n 4 mg [...] NEEDED propranolol propranolol No 1 TID propranolo [place] 10 mg 10 mg l 10 mg [facility] tablet Take tablet Take tablet ty 1 tablet 3 1 tablet 3 Take 1 H ospita times a day times a day tablet 3 l by oral by oral times a Clinic s route as route as day by needed. needed. oral route as needed. azelastine azelastine No azelastine [place] 205.5 mcg 205.5 mcg 205.5 mcg [facility] (0.15 %) (0.15 %) (0.15 %) ty nasal spray nasal spray nasal Hospita 1 SPRAY TO 1 SPRAY TO spray 1 l EACH EACH SPRAY TO Clinics NOSTRIL NOSTRIL EACH TWICE DAILY TWICE DAILY NOSTRIL TWICE DAILY azithromyci azithromyci No azithromyc [place] n 250 mg n 250 mg in 250 mg [facility] tablet tablet tablet ty [facility]ospita l Clinics cetirizine cetirizine No cetirizine [place] 10 mg 10 mg 10 mg [facility] tablet TAKE tablet TAKE tablet ty 1 TABLET BY 1 TABLET BY TAKE 1 Hospita MOUTH EVERY MOUTH EVERY TABLET BY l NIGHT AT NIGHT AT MOUTH Clinic s BEDTIME BEDTIME EVERY NIGHT AT BEDTIME estradiol estradiol No estradiol [place] 0.01% (0.1 0.01% (0.1 0.01% (0.1 [facility] mg/gram) mg/gram) mg/gram) ty vaginal vaginal vaginal Hospit a cream cream cream l INSERT 1 INSERT 1 INSERT 1 Cli nics GRAM INTO GRAM INTO GRAM INTO VAGINA VAGINA VAGINA TWICE A TWICE A TWICE A WEEK AT WEEK AT WEEK AT NIGHT. NIGHT. NIGHT. fluticasone fluticasone No fluticason [place] propionate propionate e Com ricci 50 50 [...] NOSTRIL EVERY DAY hydroxyzine hydroxyzine No hydroxyzin [place] HCl 25 mg HCl 25 mg e HCl 25 C [facility] tablet TAKE tablet TAKE mg tablet ty 1 TABLET BY 1 TABLET BY TAKE 1 Hospita MOUTH EVERY MOUTH EVERY TABLET BY l 6 HOURS 6 HOURS MOUTH Cl inics NEEDED NEEDED EVERY 6 HOURS NEEDED meclizine meclizine No 1 TID meclizine [place] 25 mg 25 mg 25 mg [facility] tablet Take tablet Take tablet ty 1 tablet 3 1 tablet 3 Take 1 H ospita times a day times a day tablet 3 l by oral by oral times a Clinic s route as route as day by needed. needed. oral route as needed. Medrol Medrol No 1dose Medrol [place] (Andrew) 4 mg (Andrew) 4 mg pk(s) (Andrew) 4 mg [facility] tablets in tablets in tablets in ty a dose pack a dose pack a dose Hospita Take 1 dose Take 1 dose pack Take l pk by oral pk by oral 1 dose pk Clinics route as route as by oral directed. directed. route as directed. ondansetron ondansetron No ondansetro [place] 4 mg 4 mg n 4 mg [facility] disintegrat disintegrat disintegra ty ing tablet ing tablet ting [facility] DISSOLVE 1 DISSOLVE 1 tablet l TABLET ON TABLET ON DISSOLVE 1 Clinics THE TOUNGE THE TOUNGE TABLET ON EVERY 8 EVERY 8 THE TOUNGE HOURS HOURS EVERY 8 NEEDED NEEDED HOURS NEEDED propranolol propranolol No propranolo [place] 10 mg 10 mg l 10 mg [facility] tablet TAKE tablet TAKE tablet ty 1 TABLET BY 1 TABLET BY TAKE 1 Hospita MOUTH THREE MOUTH THREE TABLET BY l TIMES DAILY TIMES DAILY MOUTH Clinics NEEDED NEEDED THREE TIMES DAILY NEEDED azelastine azelastine No azelastine [place] 205.5 mcg 205.5 mcg 205.5 mcg [facility] (0.15 %) (0.15 %) (0.15 %) ty nasal spray nasal spray nasal Hospita USE 1 SPRAY USE 1 SPRAY spray USE l IN EACH IN EACH 1 SPRAY IN Cli nics NOSTRIL NOSTRIL EACH TWICE DAILY TWICE DAILY NOSTRIL TWICE DAILY estradiol estradiol No estradiol [place] 0.01% (0.1 0.01% (0.1 0.01% (0.1 [facility] mg/gram) mg/gram) mg/gram) ty vaginal vaginal vaginal Hospit a cream cream cream l INSERT 1 INSERT 1 INSERT 1 Cli nics GRAM INTO GRAM INTO GRAM INTO VAGINA VAGINA VAGINA TWICE A TWICE A TWICE A WEEK AT WEEK AT WEEK AT NIGHT. NIGHT. NIGHT. fluticasone fluticasone No fluticason [place] propionate propionate e Com ricci 50 50 [...] DAY hydroxyzine hydroxyzine No 1 BID hydroxyzin [place] HCl 25 mg HCl 25 mg e HCl 25 C [facility] tablet Take tablet Take mg tablet ty 1 tablet 1 tablet Take 1 Hospi ta twice a day twice a day tablet l by oral by oral twice a Clinic s route as route as day by needed. needed. oral route as needed. hyoscyamine hyoscyamine No hyoscyamin [place] sulfate sulfate e sulfate Comm uni 0.125 mg 0.125 mg 0.125 mg ty tablet TAKE tablet TAKE tablet Hospita 1 TABLET BY 1 TABLET BY TAKE 1 l MOUTH EVERY MOUTH EVERY TABLET BY Clinics 8 HOURS 8 HOURS MOUTH EVERY 8 HOURS levothyroxi levothyroxi No 1 Q1D levothyrox [place] ne 25 mcg ne 25 mcg ine 25 mcg [facility] tablet Take tablet Take tablet ty 1 tablet 1 tablet Take 1 Hospi ta every day every day tablet l by oral by oral every day Clin ics route. route. by oral route. meclizine meclizine No 1 TID meclizine [place] 25 mg 25 mg 25 mg [facility] tablet Take tablet Take tablet ty 1 tablet 3 1 tablet 3 Take 1 [facility] times a day times a day tablet 3 l by oral by oral times a Clinic s route as route as day by needed. needed. oral route as needed. venlafaxine venlafaxine No 1capsul Q1D venlafaxin [place] ER 37.5 mg ER 37.5 mg e(s) e ER 37.5 [facility] capsule,ext capsule,ext mg t y ended ended capsule,ex Hospita release 24 release 24 tended l hr Take 1 hr Take 1 release 24 Clinics capsule capsule hr Take 1 every day every day capsule by oral by oral every day route. route. by oral route. azelastine azelastine No azelastine [place] 205.5 mcg 205.5 mcg 205.5 mcg [facility] (0.15 %) (0.15 %) (0.15 %) ty nasal spray nasal spray nasal Hospita USE 1 SPRAY USE 1 SPRAY spray USE l IN EACH IN EACH 1 SPRAY IN Cli nics NOSTRIL NOSTRIL EACH TWICE DAILY TWICE DAILY NOSTRIL TWICE DAILY estradiol estradiol No estradiol [place] 0.01% (0.1 0.01% (0.1 0.01% (0.1 [facility] mg/gram) mg/gram) mg/gram) ty vaginal vaginal vaginal Hospit a cream cream cream l INSERT 1 INSERT 1 INSERT 1 Cli nics GRAM INTO GRAM INTO GRAM INTO VAGINA VAGINA VAGINA TWICE A TWICE A TWICE A WEEK AT WEEK AT WEEK AT NIGHT. NIGHT. NIGHT. fluticasone fluticasone No fluticason [place] propionate propionate e Com ricci 50 50 [...] DAY hydroxyzine hydroxyzine No 1 BID hydroxyzin [place] HCl 25 mg HCl 25 mg e HCl 25 C [facility] tablet Take tablet Take mg tablet ty 1 tablet 1 tablet Take 1 Hospi ta twice a day twice a day tablet l by oral by oral twice a Clinic s route as route as day by needed. needed. oral route as needed. hyoscyamine hyoscyamine No hyoscyamin [place] sulfate sulfate e sulfate Comm uni 0.125 mg 0.125 mg 0.125 mg ty tablet TAKE tablet TAKE tablet [facility]osp[facility] 1 TABLET BY 1 TABLET BY TAKE 1 l MOUTH EVERY MOUTH EVERY TABLET BY Clinics 8 HOURS 8 HOURS MOUTH EVERY 8 HOURS levothyroxi levothyroxi No 1 Q1D levothyrox [place] ne 25 mcg ne 25 mcg ine 25 mcg [facility] tablet Take tablet Take tablet ty 1 tablet 1 tablet Take 1 Hospi ta every day every day tablet l by oral by oral every day Clin ics route. route. by oral route. meclizine meclizine No 1 TID meclizine [place] 25 mg 25 mg 25 mg [facility] tablet Take tablet Take tablet ty 1 tablet 3 1 tablet 3 Take 1 [facility] times a day times a day tablet 3 l by oral by oral times a Clinic s route as route as day by needed. needed. oral route as needed. venlafaxine venlafaxine No 1capsul Q1D venlafaxin [place] ER 37.5 mg ER 37.5 mg e(s) e ER 37.5 [facility] capsule,ext capsule,ext mg t y ended ended capsule,ex Hospita release 24 release 24 tended l hr Take 1 hr Take 1 release 24 Clinics capsule capsule hr Take 1 every day every day capsule by oral by oral every day route. route. by oral route. azelastine azelastine No azelastine [place] 205.5 mcg 205.5 mcg 205.5 mcg [facility] (0.15 %) (0.15 %) (0.15 %) ty nasal spray nasal spray nasal Hospita USE 1 SPRAY USE 1 SPRAY spray USE l IN EACH IN EACH 1 SPRAY IN Cli nics NOSTRIL NOSTRIL EACH TWICE DAILY TWICE DAILY NOSTRIL TWICE DAILY buspirone 5 buspirone 5 No 1 BID buspirone [place] mg tablet mg tablet 5 mg Com[facility] ni Take 1 Take 1 tablet ty tablet tablet Take 1 Hospita twice a day twice a day tablet l by oral by oral twice a Clinic s route for route for day by 30 days. 30 days. oral route for 30 days. dicyclomine dicyclomine No dicyclomin [place] 20 mg 20 mg e 20 mg [...] CRAMPS OR DISCOMFORT estradiol estradiol No estradiol [place] 0.01% (0.1 0.01% (0.1 0.01% (0.1 [facility] mg/gram) mg/gram) mg/gram) ty vaginal vaginal vaginal Hospit a cream cream cream l INSERT 1 INSERT 1 INSERT 1 Cli nics GRAM INTO GRAM INTO GRAM INTO VAGINA VAGINA VAGINA TWICE A TWICE A TWICE A WEEK AT WEEK AT WEEK AT NIGHT. NIGHT. NIGHT. famotidine famotidine No famotidine [place] 20 mg 20 mg 20 mg [facility] tablet TAKE tablet TAKE tablet ty 1 TABLET BY 1 TABLET BY TAKE 1 Hospita MOUTH EVERY MOUTH EVERY TABLET BY l 12 HOURS 12 HOURS MOUTH Clinic s EVERY 12 HOURS fluticasone fluticasone No fluticason [place] propionate propionate e Com ricci 50 50 [...] NOSTRIL EVERY DAY hyoscyamine hyoscyamine No hyoscyamin [place] sulfate sulfate e sulfate Comm uni 0.125 mg 0.125 mg 0.125 mg ty tablet TAKE tablet TAKE tablet [facility]osp[facility] 1 TABLET BY 1 TABLET BY TAKE 1 l MOUTH EVERY MOUTH EVERY TABLET BY Clinics 8 HOURS 8 HOURS MOUTH EVERY 8 HOURS levothyroxi levothyroxi No levothyrox [place] ne 25 mcg ne 25 mcg ine 25 mcg [facility] tablet TAKE tablet TAKE tablet ty 1 TABLET BY 1 TABLET BY TAKE 1 [facility]ospita MOUTH EVERY MOUTH EVERY TABLET BY l DAY DAY MOUTH Clinics EVERY DAY meclizine meclizine No 1 TID meclizine [place] 25 mg 25 mg 25 mg [facility] tablet Take tablet Take tablet ty 1 tablet 3 1 tablet 3 Take 1 [facility] times a day times a day tablet 3 l by oral by oral times a Clinic s route as route as day by needed. needed. oral route as needed. ondansetron ondansetron No ondansetro [place] 4 mg 4 mg n 4 mg [...] Xanax 0.25 No 1 BID Xanax 0.25 [place] mg tablet mg tablet mg tablet [facility] Take 1 Take 1 Take 1 ty tablet tablet tablet [facility]osp[facility] twice a day twice a day twice a l by oral by oral day by Clinics route for route for oral route 14 days. 14 days. for 14 days. azelastine azelastine No azelastine [place] 205.5 mcg 205.5 mcg 205.5 mcg [facility] (0.15 %) (0.15 %) (0.15 %) ty nasal spray nasal spray nasal [facility]osp[facility] USE 1 SPRAY USE 1 SPRAY spray USE l IN EACH IN EACH 1 SPRAY IN Cli nics NOSTRIL NOSTRIL EACH TWICE DAILY TWICE DAILY NOSTRIL TWICE DAILY buspirone 5 buspirone 5 No 1 BID buspirone [place] mg tablet mg tablet 5 mg Commu ni Take 1 Take 1 tablet ty tablet tablet Take 1 [facility]ospita twice a day twice a day tablet l by oral by oral twice a Clinic s route for route for day by 30 days. 30 days. oral route for 30 days. dicyclomine dicyclomine No dicyclomin [place] 20 mg 20 mg e 20 mg [...] CRAMPS OR DISCOMFORT estradiol estradiol No estradiol [place] 0.01% (0.1 0.01% (0.1 0.01% (0.1 [facility] mg/gram) mg/gram) mg/gram) ty vaginal vaginal vaginal Hospit a cream cream cream l INSERT 1 INSERT 1 INSERT 1 Cli nics GRAM INTO GRAM INTO GRAM INTO VAGINA VAGINA VAGINA TWICE A TWICE A TWICE A WEEK AT WEEK AT WEEK AT NIGHT. NIGHT. NIGHT. famotidine famotidine No famotidine [place] 20 mg 20 mg 20 mg [facility] tablet TAKE tablet TAKE tablet ty 1 TABLET BY 1 TABLET BY TAKE 1 Hospita MOUTH EVERY MOUTH EVERY TABLET BY l 12 HOURS 12 HOURS MOUTH Clinic s EVERY 12 HOURS fluticasone fluticasone No fluticason [place] propionate propionate e Com ricci 50 50 [...] NOSTRIL EVERY DAY hyoscyamine hyoscyamine No hyoscyamin [place] sulfate sulfate e sulfate Comm uni 0.125 mg 0.125 mg 0.125 mg ty tablet TAKE tablet TAKE tablet [facility]osp[facility] 1 TABLET BY 1 TABLET BY TAKE 1 l MOUTH EVERY MOUTH EVERY TABLET BY Clinics 8 HOURS 8 HOURS MOUTH EVERY 8 HOURS levothyroxi levothyroxi No levothyrox [place] ne 25 mcg ne 25 mcg ine 25 mcg [facility] tablet TAKE tablet TAKE tablet ty 1 TABLET BY 1 TABLET BY TAKE 1 [facility]ospita MOUTH EVERY MOUTH EVERY TABLET BY l DAY DAY MOUTH Clinics EVERY DAY meclizine meclizine No 1 TID meclizine [place] 25 mg 25 mg 25 mg [facility] tablet Take tablet Take tablet ty 1 tablet 3 1 tablet 3 Take 1 [facility] times a day times a day tablet 3 l by oral by oral times a Clinic s route as route as day by needed. needed. oral route as needed. ondansetron ondansetron No ondansetro [place] 4 mg 4 mg n 4 mg [...] Xanax 0.25 No 1 BID Xanax 0.25 [place] mg tablet mg tablet mg tablet [facility] Take 1 Take 1 Take 1 ty tablet tablet tablet Hosp[facility] twice a day twice a day twice a l by oral by oral day by Clinics route for route for oral route 14 days. 14 days. for 14 days. alprazolam alprazolam No alprazolam [place] 0.25 mg 0.25 mg 0.25 mg Commun i tablet TAKE tablet TAKE tablet ty 1 TABLET BY 1 TABLET BY TAKE 1 [facility]ospita MOUTH TWICE MOUTH TWICE TABLET BY l DAILY FOR DAILY FOR MOUTH Clin ics 14 DAYS 14 DAYS TWICE DAILY FOR 14 DAYS azelastine azelastine No azelastine [place] 205.5 mcg 205.5 mcg 205.5 mcg [facility] (0.15 %) (0.15 %) (0.15 %) ty nasal spray nasal spray nasal [facility]osp[facility] USE 1 SPRAY USE 1 SPRAY spray USE l IN EACH IN EACH 1 SPRAY IN Cli nics NOSTRIL NOSTRIL EACH TWICE DAILY TWICE DAILY NOSTRIL TWICE DAILY buspirone 5 buspirone 5 No buspirone [place] mg tablet mg tablet 5 mg Com[facility] ni TAKE 1 TAKE 1 tablet ty TABLET BY TABLET BY TAKE 1 [facility] MOUTH TWICE MOUTH TWICE TABLET BY l DAILY DAILY MOUTH Clinics TWICE DAILY estradiol estradiol No estradiol [place] 0.01% (0.1 0.01% (0.1 0.01% (0.1 [facility] mg/gram) mg/gram) mg/gram) ty vaginal vaginal vaginal Hospit a cream cream cream l INSERT 1 INSERT 1 INSERT 1 Cli nics GRAM INTO GRAM INTO GRAM INTO VAGINA VAGINA VAGINA TWICE A TWICE A TWICE A WEEK AT WEEK AT WEEK AT NIGHT. NIGHT. NIGHT. fluticasone fluticasone No fluticason [place] propionate propionate e Com ricci 50 50 [...] NOSTRIL EVERY DAY hyoscyamine hyoscyamine No hyoscyamin [place] sulfate sulfate e sulfate Comm uni 0.125 mg 0.125 mg 0.125 mg ty tablet TAKE tablet TAKE tablet [facility] 1 TABLET BY 1 TABLET BY TAKE 1 l MOUTH EVERY MOUTH EVERY TABLET BY Clinics 8 HOURS 8 HOURS MOUTH EVERY 8 HOURS levothyroxi levothyroxi No levothyrox [place] ne 25 mcg ne 25 mcg ine 25 mcg [facility] tablet TAKE tablet TAKE tablet ty 1 TABLET BY 1 TABLET BY TAKE 1 [facility]ospita MOUTH EVERY MOUTH EVERY TABLET BY l DAY DAY MOUTH Clinics EVERY DAY meclizine meclizine No 1 TID meclizine [place] 25 mg 25 mg 25 mg [facility] tablet Take tablet Take tablet ty 1 tablet 3 1 tablet 3 Take 1 [facility] times a day times a day tablet 3 l by oral by oral times a Clinic s route as route as day by needed. needed. oral route as needed. ondansetron ondansetron No ondansetro [place] 4 mg 4 mg n 4 mg [...] NAUSEA valacyclovi valacyclovi No 1 TID valacyclov [place] r 1 gram r 1 gram ir [...] days. Xifaxan 550 Xifaxan 550 No Xifaxan [place] mg tablet mg tablet 550 mg Com ricci tablet ty [facility]ospita l Clinics alprazolam alprazolam No alprazolam [place] 0.25 mg 0.25 mg 0.25 mg Commun i tablet TAKE tablet TAKE tablet ty 1 TABLET BY 1 TABLET BY TAKE 1 [facility]ospita MOUTH TWICE MOUTH TWICE TABLET BY l DAILY FOR DAILY FOR MOUTH Clin ics 14 DAYS 14 DAYS TWICE DAILY FOR 14 DAYS azelastine azelastine No azelastine [place] 205.5 mcg 205.5 mcg 205.5 mcg [facility] (0.15 %) (0.15 %) (0.15 %) ty nasal spray nasal spray nasal [facility]osp[facility] USE 1 SPRAY USE 1 SPRAY spray USE l IN EACH IN EACH 1 SPRAY IN Cli nics NOSTRIL NOSTRIL EACH TWICE DAILY TWICE DAILY NOSTRIL TWICE DAILY buspirone 5 buspirone 5 No buspirone [place] mg tablet mg tablet 5 mg Commu ni TAKE 1 TAKE 1 tablet ty TABLET BY TABLET BY TAKE 1 [facility] MOUTH TWICE MOUTH TWICE TABLET BY l DAILY DAILY MOUTH Clinics TWICE DAILY estradiol estradiol No estradiol [place] 0.01% (0.1 0.01% (0.1 0.01% (0.1 [facility] mg/gram) mg/gram) mg/gram) ty vaginal vaginal vaginal Hospit a cream cream cream l INSERT 1 INSERT 1 INSERT 1 Cli nics GRAM INTO GRAM INTO GRAM INTO VAGINA VAGINA VAGINA TWICE A TWICE A TWICE A WEEK AT WEEK AT WEEK AT NIGHT. NIGHT. NIGHT. fluticasone fluticasone No fluticason [place] propionate propionate e Com ricci 50 50 [...] NOSTRIL EVERY DAY hyoscyamine hyoscyamine No hyoscyamin [place] sulfate sulfate e sulfate Comm uni 0.125 mg 0.125 mg 0.125 mg ty tablet TAKE tablet TAKE tablet [facility] 1 TABLET BY 1 TABLET BY TAKE 1 l MOUTH EVERY MOUTH EVERY TABLET BY Clinics 8 HOURS 8 HOURS MOUTH EVERY 8 HOURS levothyroxi levothyroxi No levothyrox [place] ne 25 mcg ne 25 mcg ine 25 mcg [facility] tablet TAKE tablet TAKE tablet ty 1 TABLET BY 1 TABLET BY TAKE 1 [facility]ospita MOUTH EVERY MOUTH EVERY TABLET BY l DAY DAY MOUTH Clinics EVERY DAY meclizine meclizine No 1 TID meclizine [place] 25 mg 25 mg 25 mg [facility] tablet Take tablet Take tablet ty 1 tablet 3 1 tablet 3 Take 1 [facility] times a day times a day tablet 3 l by oral by oral times a Clinic s route as route as day by needed. needed. oral route as needed. omeprazole omeprazole No omeprazole [place] 20 mg 20 mg 20 mg [facility] capsule,del capsule,del capsule,de ty ayed ayed layed [facility]ospita release release release l TAKE 1 TAKE 1 TAKE 1 Clinics CAPSULE BY CAPSULE BY CAPSULE BY MOUTH DAILY MOUTH DAILY MOUTH DAILY ondansetron ondansetron No ondansetro [place] 4 mg 4 mg n 4 mg [...] NEEDED FOR NAUSEA orphenadrin orphenadrin No orphenadri [place] e citrate e citrate ne citrate Communi [...] tablet l Clinics valacyclovi valacyclovi No valacyclov [place] r 1 gram r 1 gram ir 1 gram Co [facility] tablet TAKE tablet TAKE tablet ty 1 TABLET BY 1 TABLET BY TAKE 1 Hospita MOUTH THREE MOUTH THREE TABLET BY l TIMES DAILY TIMES DAILY MOUTH Clinics FOR 7 DAYS FOR 7 DAYS THREE TIMES DAILY FOR 7 DAYS Xifaxan 550 Xifaxan 550 No Xifaxan [place] mg tablet mg tablet 550 mg Com ricci tablet ty [facility] l Clinics alprazolam alprazolam No alprazolam [place] 0.25 mg 0.25 mg 0.25 mg Commun i tablet TAKE tablet TAKE tablet ty 1 TABLET BY 1 TABLET BY TAKE 1 [facility]ospita MOUTH TWICE MOUTH TWICE TABLET BY l DAILY FOR DAILY FOR MOUTH Clin ics 14 DAYS 14 DAYS TWICE DAILY FOR 14 DAYS azelastine azelastine No azelastine [place] 205.5 mcg 205.5 mcg 205.5 mcg [facility] (0.15 %) (0.15 %) (0.15 %) ty nasal spray nasal spray nasal [facility]osp[facility] USE 1 SPRAY USE 1 SPRAY spray USE l IN EACH IN EACH 1 SPRAY IN Cli nics NOSTRIL NOSTRIL EACH TWICE DAILY TWICE DAILY NOSTRIL TWICE DAILY buspirone 5 buspirone 5 No buspirone [place] mg tablet mg tablet 5 mg Com[facility] ni TAKE 1 TAKE 1 tablet ty TABLET BY TABLET BY TAKE 1 [facility] MOUTH TWICE MOUTH TWICE TABLET BY l DAILY DAILY MOUTH Clinics TWICE DAILY estradiol estradiol No estradiol [place] 0.01% (0.1 0.01% (0.1 0.01% (0.1 [facility] mg/gram) mg/gram) mg/gram) ty vaginal vaginal vaginal Hospit a cream cream cream l INSERT 1 INSERT 1 INSERT 1 Cli nics GRAM INTO GRAM INTO GRAM INTO VAGINA VAGINA VAGINA TWICE A TWICE A TWICE A WEEK AT WEEK AT WEEK AT NIGHT. NIGHT. NIGHT. fluticasone fluticasone No fluticason [place] propionate propionate e Com ricci 50 50 [...] NOSTRIL EVERY DAY hyoscyamine hyoscyamine No hyoscyamin [place] sulfate sulfate e sulfate Comm uni 0.125 mg 0.125 mg 0.125 mg ty tablet TAKE tablet TAKE tablet [facility] 1 TABLET BY 1 TABLET BY TAKE 1 l MOUTH EVERY MOUTH EVERY TABLET BY Clinics 8 HOURS 8 HOURS MOUTH EVERY 8 HOURS levothyroxi levothyroxi No levothyrox [place] ne 25 mcg ne 25 mcg ine 25 mcg [facility] tablet TAKE tablet TAKE tablet ty 1 TABLET BY 1 TABLET BY TAKE 1 [facility]ospita MOUTH EVERY MOUTH EVERY TABLET BY l DAY DAY MOUTH Clinics EVERY DAY meclizine meclizine No 1 TID meclizine [place] 25 mg 25 mg 25 mg [facility] tablet Take tablet Take tablet ty 1 tablet 3 1 tablet 3 Take 1 [facility] times a day times a day tablet 3 l by oral by oral times a Clinic s route as route as day by needed. needed. oral route as needed. omeprazole omeprazole No omeprazole [place] 20 mg 20 mg 20 mg [facility] capsule,del capsule,del capsule,de ty ayed ayed layed [facility]osp[facility] release release release l TAKE 1 TAKE 1 TAKE 1 Clinics CAPSULE BY CAPSULE BY CAPSULE BY MOUTH DAILY MOUTH DAILY MOUTH DAILY ondansetron ondansetron No ondansetro [place] 4 mg 4 mg n 4 mg [...] NEEDED FOR NAUSEA orphenadrin orphenadrin No orphenadri [place] e citrate e citrate ne citrate [facility] ER 100 mg ER 100 mg ER 100 mg ty tablet,exte tablet,exte tablet,ext Hospita nded nded ended l release release release Clinic s TAKE 1 TAKE 1 TAKE 1 TABLET BY TABLET BY TABLET BY MOUTH TWICE MOUTH TWICE MOUTH DAILY DAILY TWICE NEEDED NEEDED DAILY NEEDED sucralfate sucralfate No sucralfate [place] 1 gram 1 gram 1 gram Communi [...] Clinics tramadol 50 tramadol 50 No tramadol [place] mg tablet mg tablet 50 mg Comm uni TAKE 1 TAKE 1 tablet ty TABLET BY TABLET BY TAKE 1 [facility] MOUTH EVERY MOUTH EVERY TABLET BY l 4 HOURS 4 HOURS MOUTH Cl inics NEEDED FOR NEEDED FOR EVERY 4 PAIN PAIN HOURS NEEDED FOR PAIN valacyclovi valacyclovi No valacyclov [place] r 1 gram r 1 gram ir 1 gram Co [facility] tablet TAKE tablet TAKE tablet ty 1 TABLET BY 1 TABLET BY TAKE 1 [facility]ospita MOUTH THREE MOUTH THREE TABLET BY l TIMES DAILY TIMES DAILY MOUTH Clinics FOR 7 DAYS FOR 7 DAYS THREE TIMES DAILY FOR 7 DAYS Xifaxan 550 Xifaxan 550 No Xifaxan [place] mg tablet mg tablet 550 mg Com ricci tablet ty [facility] l Clinics acyclovir 5 acyclovir 5 No acyclovir [place] % topical % topical 5 % Commu ni ointment ointment topical ty APPLY TO APPLY TO ointment [facility] THE THE APPLY TO l AFFECTED AFFECTED THE Clinics AREA EVERY AREA EVERY AFFECTED 2 HOURS 2 HOURS AREA EVERY DURING DURING 2 HOURS AWAKE HOURS AWAKE HOURS DURING FOR 4 DAYS FOR 4 DAYS AWAKE HOURS FOR 4 DAYS alprazolam alprazolam No alprazolam [place] 0.25 mg 0.25 mg 0.25 mg Commun i tablet TAKE tablet TAKE tablet ty 1/2 TO 1 1/2 TO 1 TAKE 1/2 [facility] FULL TABLET FULL TABLET TO 1 FULL l BY MOUTH BY MOUTH TABLET BY Cl inics EVERY DAY EVERY DAY MOUTH NEEDED NEEDED EVERY DAY NEEDED azelastine azelastine No azelastine [place] 205.5 mcg 205.5 mcg 205.5 mcg [facility] (0.15 %) (0.15 %) (0.15 %) ty nasal spray nasal spray nasal [facility]osp[facility] USE 1 SPRAY USE 1 SPRAY spray USE l IN EACH IN EACH 1 SPRAY IN Cli nics NOSTRIL NOSTRIL EACH TWICE DAILY TWICE DAILY NOSTRIL TWICE DAILY buspirone 5 buspirone 5 No buspirone [place] mg tablet mg tablet 5 mg Commu ni TAKE 1 TAKE 1 tablet ty TABLET BY TABLET BY TAKE 1 [facility] MOUTH TWICE MOUTH TWICE TABLET BY l DAILY DAILY MOUTH Clinics TWICE DAILY Dexilant Dexilant No Dexilant Swe venkat [facility] ty [facility]osp[facility] l Clinics estradiol estradiol No estradiol [place] 0.01% (0.1 0.01% (0.1 0.01% (0.1 [facility] mg/gram) mg/gram) mg/gram) ty vaginal vaginal vaginal Hospit a cream cream cream l INSERT 1 INSERT 1 INSERT 1 Cli nics GRAM INTO GRAM INTO GRAM INTO VAGINA VAGINA VAGINA TWICE A TWICE A TWICE A WEEK AT WEEK AT WEEK AT NIGHT. NIGHT. NIGHT. fluoxetine fluoxetine No fluoxetine [place] 10 mg 10 mg 10 mg [facility] capsule capsule capsule ty TAKE 1 TAKE 1 TAKE 1 [facility]ospita CAPSULE BY CAPSULE BY CAPSULE BY l MOUTH DAILY MOUTH DAILY MOUTH Clinics DAILY fluticasone fluticasone No fluticason [place] propionate propionate e Com ricci 50 50 propionate ty mcg/actuati mcg/actuati 50 H [facility]sp[facility] on nasal on nasal mcg/actuat l spray,suspe spray,suspe ion nasal Clinics nsion SHAKE nsion SHAKE spray,susp LIQUID AND LIQUID AND ension USE 1 SPRAY USE 1 SPRAY SHAKE IN EACH IN EACH LIQUID AND NOSTRIL NOSTRIL USE 1 EVERY DAY EVERY DAY SPRAY IN EACH NOSTRIL EVERY DAY gabapentin gabapentin No gabapentin [place] 100 mg 100 mg 100 mg [facility] capsule capsule capsule ty TAKE 1 TO 2 TAKE 1 TO 2 TAKE 1 TO Hospita CAPSULES BY CAPSULES BY 2 CAPSULES l MOUTH IN MOUTH IN BY MOUTH Cli nics THE EVENING THE EVENING IN THE OR BEDTIME OR BEDTIME EVENING OR NEEDED NEEDED BEDTIME NEEDED hyoscyamine hyoscyamine No hyoscyamin [place] sulfate sulfate e sulfate Comm uni 0.125 mg 0.125 mg 0.125 mg ty tablet TAKE tablet TAKE tablet [facility]osp[facility] 1 TABLET BY 1 TABLET BY TAKE 1 l MOUTH EVERY MOUTH EVERY TABLET BY Clinics 8 HOURS 8 HOURS MOUTH EVERY 8 HOURS levothyroxi levothyroxi No levothyrox [place] ne 25 mcg ne 25 mcg ine 25 mcg [facility] tablet TAKE tablet TAKE tablet ty 1 TABLET BY 1 TABLET BY TAKE 1 [facility]ospita MOUTH EVERY MOUTH EVERY TABLET BY l DAY DAY MOUTH Clinics EVERY DAY meclizine meclizine No 1 TID meclizine [place] 25 mg 25 mg 25 mg [facility] tablet Take tablet Take tablet ty 1 tablet 3 1 tablet 3 Take 1 [facility] times a day times a day tablet 3 l by oral by oral times a Clinic s route as route as day by needed. needed. oral route as needed. omeprazole omeprazole No omeprazole [place] 20 mg 20 mg 20 mg [facility] capsule,del capsule,del capsule,de ty ayed ayed layed [facility]ospita release release release l TAKE 1 TAKE 1 TAKE 1 Clinics CAPSULE BY CAPSULE BY CAPSULE BY MOUTH DAILY MOUTH DAILY MOUTH DAILY ondansetron ondansetron No ondansetro [place] 4 mg 4 mg n 4 mg [...] NEEDED FOR NAUSEA orphenadrin orphenadrin No orphenadri [place] e citrate e citrate ne citrate [facility] ER 100 mg ER 100 mg ER 100 mg ty tablet,exte tablet,exte tablet,ext [facility]ospita nded nded ended l release release release Clinic s TAKE 1 TAKE 1 TAKE 1 TABLET BY TABLET BY TABLET BY MOUTH TWICE MOUTH TWICE MOUTH DAILY DAILY TWICE NEEDED NEEDED DAILY NEEDED sucralfate sucralfate No sucralfate [place] 1 gram 1 gram 1 gram [facility] tablet TAKE tablet TAKE tablet ty 1 TABLET BY 1 TABLET BY TAKE 1 Hospita MOUTH FOUR MOUTH FOUR TABLET BY l TIMES DAILY TIMES DAILY MOUTH FOUR Clinics BEFORE BEFORE TIMES MEALS MEALS DAILY BEFORE MEALS Suprax 400 Suprax 400 No 1capsul Q1D Suprax 400 [place] mg capsule mg capsule e(s) mg capsule [facility] Take 1 Take 1 Take 1 ty capsule capsule capsule Hospit a every day every day every day l by oral by oral by oral Clinic s route for route for route for 10 days. 10 days. 10 days. tramadol 50 tramadol 50 No tramadol [place] mg tablet mg tablet 50 mg Comm uni TAKE 1 TAKE 1 tablet ty TABLET BY TABLET BY TAKE 1 [facility] MOUTH EVERY MOUTH EVERY TABLET BY l 4 HOURS 4 HOURS MOUTH Cl inics NEEDED FOR NEEDED FOR EVERY 4 PAIN PAIN HOURS NEEDED FOR PAIN Xifaxan 550 Xifaxan 550 No Xifaxan [place] mg tablet mg tablet 550 mg Com ricci tablet ty [facility] l Clinics acyclovir 5 acyclovir 5 No acyclovir [place] % topical % topical 5 % Commu ni ointment ointment topical ty APPLY TO APPLY TO ointment [facility] THE THE APPLY TO l AFFECTED AFFECTED THE Clinics AREA EVERY AREA EVERY AFFECTED 2 HOURS 2 HOURS AREA EVERY DURING DURING 2 HOURS AWAKE HOURS AWAKE HOURS DURING FOR 4 DAYS FOR 4 DAYS AWAKE HOURS FOR 4 DAYS alprazolam alprazolam No alprazolam [place] 0.25 mg 0.25 mg 0.25 mg Commun i tablet TAKE tablet TAKE tablet ty 1/2 TO 1 1/2 TO 1 TAKE 1/2 [facility] FULL TABLET FULL TABLET TO 1 FULL l BY MOUTH BY MOUTH TABLET BY Cl inics EVERY DAY EVERY DAY MOUTH NEEDED NEEDED EVERY DAY NEEDED amoxicillin amoxicillin No 1 Q12H amoxicilli [place] [id number] n 875 Communi mg-potassiu mg-potassiu mg-potassi ty [facility] clavulanate clavulanate clavulanat l 125 mg 125 mg e 125 mg Clinics tablet Take tablet Take tablet 1 tablet 1 tablet Take 1 every 12 every 12 tablet hours by hours by every 12 oral route oral route hours by for 10 for 10 oral route days. days. for 10 days. azelastine azelastine No azelastine [place] 205.5 mcg 205.5 mcg 205.5 mcg [facility] (0.15 %) (0.15 %) (0.15 %) ty nasal spray nasal spray nasal Hospita USE 1 SPRAY USE 1 SPRAY spray USE l IN EACH IN EACH 1 SPRAY IN Cli nics NOSTRIL NOSTRIL EACH TWICE DAILY TWICE DAILY NOSTRIL TWICE DAILY buspirone 5 buspirone 5 No buspirone [place] mg tablet mg tablet 5 mg Com[facility] ni TAKE 1 TAKE 1 tablet ty TABLET BY TABLET BY TAKE 1 [facility] MOUTH TWICE MOUTH TWICE TABLET BY l DAILY DAILY MOUTH Clinics TWICE DAILY dexlansopra dexlansopra No dexlansopr [place] zole 60 mg zole 60 mg azole 60 [facility]i capsule,bip capsule,bip mg t y hase hase capsule,bi Hospita delayed delayed phase l release release delayed Clinic s TAKE 1 TAKE 1 release CAPSULE BY CAPSULE BY TAKE 1 MOUTH DAILY MOUTH DAILY CAPSULE BY MOUTH DAILY esomeprazol esomeprazol No 1capsul Q1D esomeprazo [place] e magnesium e magnesium e(s) le C [facility] 40 mg 40 mg magnesium ty capsule,del capsule,del 40 mg Hospita ayed ayed capsule,de l release release layed Clinics Take 1 Take 1 release capsule capsule Take 1 every day every day capsule by oral by oral every day route. route. by oral route. estradiol estradiol No estradiol [place] 0.01% (0.1 0.01% (0.1 0.01% (0.1 [facility] mg/gram) mg/gram) mg/gram) ty vaginal vaginal vaginal Hospit a cream cream cream l INSERT 1 INSERT 1 INSERT 1 Cli nics GRAM INTO GRAM INTO GRAM INTO VAGINA VAGINA VAGINA TWICE A TWICE A TWICE A WEEK AT WEEK AT WEEK AT NIGHT. NIGHT. NIGHT. fluoxetine fluoxetine No fluoxetine [place] 10 mg 10 mg 10 mg [facility] capsule capsule capsule ty TAKE 1 TAKE 1 TAKE 1 Hospita CAPSULE BY CAPSULE BY CAPSULE BY l MOUTH DAILY MOUTH DAILY MOUTH Clinics DAILY fluticasone fluticasone No fluticason [place] propionate propionate e Com ricci 50 50 propionate ty mcg/actuati mcg/actuati 50 H ospita on nasal on nasal mcg/actuat l spray,suspe spray,suspe ion nasal Clinics nsion SHAKE nsion SHAKE spray,susp LIQUID AND LIQUID AND ension USE 1 SPRAY USE 1 SPRAY SHAKE IN EACH IN EACH LIQUID AND NOSTRIL NOSTRIL USE 1 EVERY DAY EVERY DAY SPRAY IN EACH NOSTRIL EVERY DAY gabapentin gabapentin No gabapentin [place] 100 mg 100 mg 100 mg [facility] capsule capsule capsule ty TAKE 1 TO 2 TAKE 1 TO 2 TAKE 1 TO Hospita CAPSULES BY CAPSULES BY 2 CAPSULES l MOUTH IN MOUTH IN BY MOUTH Cli nics THE EVENING THE EVENING IN THE OR BEDTIME OR BEDTIME EVENING OR NEEDED NEEDED BEDTIME NEEDED hyoscyamine hyoscyamine No hyoscyamin [place] sulfate sulfate e sulfate Comm uni 0.125 mg 0.125 mg 0.125 mg ty tablet TAKE tablet TAKE tablet Hospita 1 TABLET BY 1 TABLET BY TAKE 1 l MOUTH EVERY MOUTH EVERY TABLET BY Clinics 8 HOURS 8 HOURS MOUTH EVERY 8 HOURS meclizine meclizine No 1 TID meclizine [place] 25 mg 25 mg 25 mg [facility] tablet Take tablet Take tablet ty 1 tablet 3 1 tablet 3 Take 1 H ospita times a day times a day tablet 3 l by oral by oral times a Clinic s route as route as day by needed. needed. oral route as needed. ondansetron ondansetron No ondansetro [place] 4 mg 4 mg n 4 mg Communi disintegrat disintegrat disintegra ty ing tablet ing tablet ting Hos [facility] DISSOLVE 1 DISSOLVE 1 tablet l TABLET ON TABLET ON DISSOLVE 1 Clinics THE TONGUE THE TONGUE TABLET ON EVERY 6 EVERY 6 THE TONGUE HOURS FOR 5 HOURS FOR 5 EVERY 6 DAYS DAYS HOURS FOR NEEDED FOR NEEDED FOR 5 DAYS NAUSEA OR NAUSEA OR NEEDED FOR VOMITING VOMITING NAUSEA OR VOMITING orphenadrin orphenadrin No orphenadri [place] e citrate e citrate ne citrate [facility] ER 100 mg ER 100 mg ER 100 mg ty tablet,exte tablet,exte tablet,ext Hospita nded nded ended l release release release Clinic s TAKE 1 TAKE 1 TAKE 1 TABLET BY TABLET BY TABLET BY MOUTH TWICE MOUTH TWICE MOUTH DAILY DAILY TWICE NEEDED NEEDED DAILY NEEDED tramadol 50 tramadol 50 No tramadol [place] mg tablet mg tablet 50 mg Comm uni TAKE 1 TAKE 1 tablet ty TABLET BY TABLET BY TAKE 1 Hos [facility]ina MOUTH EVERY MOUTH EVERY TABLET BY l 4 HOURS 4 HOURS MOUTH Cl inics NEEDED FOR NEEDED FOR EVERY 4 PAIN PAIN HOURS NEEDED FOR PAIN Xifaxan 550 Xifaxan 550 No Xifaxan [place] mg tablet mg tablet 550 mg Com ricci tablet ty Hospita l Clinics Vital Signs Vital Name Observation Time Observation Value Comments Source BP Diastolic 2022-10-20 00:00:00 72 mm[Hg] [facility] s Height 2022-10-20 00:00:00 63 [in_i] [facility] s BMI (Body Mass 2022-10-20 00:00:00 33 kg/m2 [facility] s BP Systolic 2022-10-20 00:00:00 124 mm[Hg] [facility] s Body Weight 2022-10-20 00:00:00 2979.2 [oz_av] [facility] s BP Diastolic 2022-10-06 00:00:00 76 mm[Hg] [facility] s Height 2022-10-06 00:00:00 63 [in_i] [facility] s BMI (Body Mass 2022-10-06 00:00:00 33.8 kg/m2 [facility] BP Systolic 2022-10-06 00:00:00 135 mm[Hg] [facility] Body Weight 2022-10-06 00:00:00 3052.8 [oz_av] [facility] s BP Diastolic 2022-09-11 00:00:00 71 mm[Hg] [facility] s Height 2022-09-11 00:00:00 63 [in_i] [facility] s BMI (Body Mass 2022-09-11 00:00:00 35.6 kg/m2 [facility] BP Systolic 2022-09-11 00:00:00 124 mm[Hg] [facility] Body Weight 2022-09-11 00:00:00 3216 [oz_av] [facility] BP Diastolic 2022-09-01 00:00:00 84 mm[Hg] [facility] Height 2022-09-01 00:00:00 63 [in_i] [facility] BMI (Body Mass 2022-09-01 00:00:00 35.5 kg/m2 [facility] BP Systolic 2022-09-01 00:00:00 152 mm[Hg] [facility] Body Weight 2022-09-01 00:00:00 3203.2 [oz_av] [facility] BP Diastolic 2022-08-12 00:00:00 88 mm[Hg] [facility] Height 2022-08-12 00:00:00 63 [in_i] [facility] BMI (Body Mass 2022-08-12 00:00:00 36.1 kg/m2 [facility] BP Systolic 2022-08-12 00:00:00 122 mm[Hg] [facility] Body Weight 2022-08-12 00:00:00 3260.8 [oz_av] [facility] s BP Diastolic 2022-07-18 00:00:00 81 mm[Hg] [facility] Height 2022-07-18 00:00:00 63 [in_i] [facility] s BMI (Body Mass 2022-07-18 00:00:00 35.5 kg/m2 [facility] BP Systolic 2022-07-18 00:00:00 143 mm[Hg] [facility] Body Weight 2022-07-18 00:00:00 3206.4 [oz_av] [facility] s BP Diastolic 2022-07-08 00:00:00 79 mm[Hg] [facility] Height 2022-07-08 00:00:00 63 [in_i] [facility] BMI (Body Mass 2022-07-08 00:00:00 36.2 kg/m2 [facility] BP Systolic 2022-07-08 00:00:00 119 mm[Hg] [facility] Body Weight 2022-07-08 00:00:00 3267.2 [oz_av] [facility] s BP Diastolic 2022-03-27 00:00:00 85 mm[Hg] [facility] Height 2022-03-27 00:00:00 63 [in_i] [facility] s BMI (Body Mass 2022-03-27 00:00:00 34.8 kg/m2 [facility] s BP Systolic 2022-03-27 00:00:00 153 mm[Hg] [facility] Body Weight 2022-03-27 00:00:00 3139.2 [oz_av] [facility] s BP Diastolic 2022-02-24 00:00:00 77 mm[Hg] [facility] Height 2022-02-24 00:00:00 63 [in_i] [facility] BMI (Body Mass 2022-02-24 00:00:00 34.8 kg/m2 [facility] BP Systolic 2022-02-24 00:00:00 143 mm[Hg] [facility] Body Weight 2022-02-24 00:00:00 3139.2 [oz_av] [facility] BP Diastolic 2022-01-23 00:00:00 80 mm[Hg] [facility] Height 2022-01-23 00:00:00 63 [in_i] [facility] BMI (Body Mass 2022-01-23 00:00:00 34.2 kg/m2 [facility] BP Systolic 2022-01-23 00:00:00 145 mm[Hg] [facility] Body Weight 2022-01-23 00:00:00 3088 [oz_av] [facility] BP Diastolic 2021-12-18 00:00:00 74 mm[Hg] [facility] Height 2021-12-18 00:00:00 63 [in_i] [facility] s BMI (Body Mass 2021-12-18 00:00:00 34.7 kg/m2 [facility] s BP Systolic 2021-12-18 00:00:00 139 mm[Hg] [facility] Body Weight 2021-12-18 00:00:00 3136 [oz_av] [facility] BP Diastolic 2021-11-08 00:00:00 71 mm[Hg] [facility] Height 2021-11-08 00:00:00 63 [in_i] [facility] BMI (Body Mass 2021-11-08 00:00:00 35.3 kg/m2 [facility] BP Systolic 2021-11-08 00:00:00 140 mm[Hg] [facility] Body Weight 2021-11-08 00:00:00 3187.2 [oz_av] [facility] s BP Diastolic 2021-10-21 00:00:00 74 mm[Hg] [facility] Height 2021-10-21 00:00:00 63 [in_i] [facility] s BMI (Body Mass 2021-10-21 00:00:00 35.3 kg/m2 [facility] s BP Systolic 2021-10-21 00:00:00 147 mm[Hg] [facility] s Body Weight 2021-10-21 00:00:00 3184 [oz_av] [facility] s BP Diastolic 2021-09-20 00:00:00 71 mm[Hg] [facility] Height 2021-09-20 00:00:00 63 [in_i] [facility] s BMI (Body Mass 2021-09-20 00:00:00 34.7 kg/m2 [facility] BP Systolic 2021-09-20 00:00:00 128 mm[Hg] [facility] Body Weight 2021-09-20 00:00:00 3137 [oz_av] [facility] BP Diastolic 2021-07-31 00:00:00 90 mm[Hg] [facility] Height 2021-07-31 00:00:00 63 [in_i] [facility] BMI (Body Mass 2021-07-31 00:00:00 34.9 kg/m2 [facility] BP Systolic 2021-07-31 00:00:00 123 mm[Hg] [facility] Body Weight 2021-07-31 00:00:00 3153.6 [oz_av] [facility] s BP Diastolic 2021-07-23 00:00:00 85 mm[Hg] [facility] Height 2021-07-23 00:00:00 63 [in_i] [facility] BMI (Body Mass 2021-07-23 00:00:00 35.6 kg/m2 [facility] BP Systolic 2021-07-23 00:00:00 151 mm[Hg] [facility] Body Weight 2021-07-23 00:00:00 3216 [oz_av] [facility] BP Diastolic 2021-06-24 00:00:00 81 mm[Hg] [facility] Height 2021-06-24 00:00:00 63 [in_i] [facility] BMI (Body Mass 2021-06-24 00:00:00 36.8 kg/m2 [facility] BP Systolic 2021-06-24 00:00:00 138 mm[Hg] [facility] Body Weight 2021-06-24 00:00:00 3328 [oz_av] [facility] BP Diastolic 2021-05-30 00:00:00 84 mm[Hg] [facility] Height 2021-05-30 00:00:00 63 [in_i] [facility] BMI (Body Mass 2021-05-30 00:00:00 36.5 kg/m2 [facility] BP Systolic 2021-05-30 00:00:00 144 mm[Hg] [facility] Body Weight 2021-05-30 00:00:00 3296 [oz_av] [facility] BP Diastolic 2021-04-09 00:00:00 68 mm[Hg] [facility] Height 2021-04-09 00:00:00 63 [in_i] [facility] BMI (Body Mass 2021-04-09 00:00:00 34.4 kg/m2 [facility] BP Systolic 2021-04-09 00:00:00 143 mm[Hg] [facility] Body Weight 2021-04-09 00:00:00 3107.2 [oz_av] [facility] s BP Diastolic 2021-03-14 00:00:00 80 mm[Hg] [facility] Height 2021-03-14 00:00:00 63 [in_i] [facility] s BMI (Body Mass 2021-03-14 00:00:00 34.9 kg/m2 [facility] BP Systolic 2021-03-14 00:00:00 145 mm[Hg] [facility] Body Weight 2021-03-14 00:00:00 3155.2 [oz_av] [facility] s BP Diastolic 2021-03-04 00:00:00 76 mm[Hg] [facility] Height 2021-03-04 00:00:00 63 [in_i] [facility] BMI (Body Mass 2021-03-04 00:00:00 36.2 kg/m2 [facility] BP Systolic 2021-03-04 00:00:00 139 mm[Hg] [facility] Body Weight 2021-03-04 00:00:00 3270.4 [oz_av] [facility] s BP Diastolic 2021-02-25 00:00:00 71 mm[Hg] [facility] Height 2021-02-25 00:00:00 63 [in_i] [facility] BMI (Body Mass 2021-02-25 00:00:00 36.5 kg/m2 [facility] BP Systolic 2021-02-25 00:00:00 131 mm[Hg] [facility] Body Weight 2021-02-25 00:00:00 3292.8 [oz_av] [facility] s BP Diastolic 2021-01-14 00:00:00 85 mm[Hg] [facility] Height 2021-01-14 00:00:00 63 [in_i] [facility] BMI (Body Mass 2021-01-14 00:00:00 35.3 kg/m2 [facility] BP Systolic 2021-01-14 00:00:00 137 mm[Hg] [facility] Body Weight 2021-01-14 00:00:00 3184 [oz_av] [facility] BP Diastolic 2020-10-16 00:00:00 61 mm[Hg] [facility] Height 2020-10-16 00:00:00 63 [in_i] [facility] BMI (Body Mass 2020-10-16 00:00:00 34.4 kg/m2 [facility] BP Systolic 2020-10-16 00:00:00 120 mm[Hg] [facility] Body Weight 2020-10-16 00:00:00 3104 [oz_av] [facility] BP Diastolic 2020-09-28 00:00:00 86 mm[Hg] [facility] Height 2020-09-28 00:00:00 63 [in_i] [facility] BMI (Body Mass 2020-09-28 00:00:00 33.9 kg/m2 [facility] BP Systolic 2020-09-28 00:00:00 129 mm[Hg] [facility] Body Weight 2020-09-28 00:00:00 3062.4 [oz_av] [facility] BP Diastolic 2020-08-20 00:00:00 79 mm[Hg] [facility] Height 2020-08-20 00:00:00 63 [in_i] [facility] BMI (Body Mass 2020-08-20 00:00:00 33 kg/m2 [facility] BP Systolic 2020-08-20 00:00:00 142 mm[Hg] [facility] Body Weight 2020-08-20 00:00:00 2979.2 [oz_av] [facility] BP Diastolic 2020-08-13 00:00:00 93 mm[Hg] [facility] Height 2020-08-13 00:00:00 63 [in_i] [facility] BMI (Body Mass 2020-08-13 00:00:00 33.2 kg/m2 [facility] BP Systolic 2020-08-13 00:00:00 149 mm[Hg] [facility] Body Weight 2020-08-13 00:00:00 3001.6 [oz_av] [facility] s BP Diastolic 2020-07-26 00:00:00 74 mm[Hg] [facility] Height 2020-07-26 00:00:00 63 [in_i] [facility] BMI (Body Mass 2020-07-26 00:00:00 32.7 kg/m2 [facility] BP Systolic 2020-07-26 00:00:00 133 mm[Hg] [facility] Body Weight 2020-07-26 00:00:00 2956.8 [oz_av] [facility] s Systolic (mm Hg) 2022-09-04 19:00:00 [facility] [place] Diastolic (mm Hg) 2022-09-04 19:00:00 [facility] [place] Heart Rate 2022-09-04 19:00:00 [facility] Temperature Oral (F) 2022-09-04 19:00:00 98 F [facility] Height 2022-09-04 15:52:00 5 [ft_i] [facility] BMI Calculated 2022-09-04 15:52:00 [facility] Weight 2022-09-04 15:52:00 [facility] Heart Rate 2021-10-14 16:25:00 [facility] Respitory Rate 2021-10-14 16:25:00 [facility] [place] Systolic (mm Hg) 2021-10-14 16:25:00 [facility] [place] Diastolic (mm Hg) 2021-10-14 16:25:00 [facility] [place] Heart Rate 2021-10-14 16:08:00 [facility] [place] Respitory Rate 2021-10-14 16:08:00 [facility] Systolic (mm Hg) 2021-10-14 16:08:00 [facility] Diastolic (mm Hg) 2021-10-14 16:08:00 [facility] Heart Rate 2021-10-14 15:53:00 [facility] Respitory Rate 2021-10-14 15:53:00 [facility] Systolic (mm Hg) 2021-10-14 15:53:00 [facility] [place] Diastolic (mm Hg) 2021-10-14 15:53:00 [facility] [place] Height 2021-10-14 13:07:00 160.02 cm [facility] [place] Weight 2021-10-14 13:07:00 [facility] BMI Calculated 2021-10-14 13:07:00 [facility] Heart Rate 2021-04-05 16:11:00 [facility] [place] Systolic (mm Hg) 2021-04-05 16:11:00 [facility] Diastolic (mm Hg) 2021-04-05 16:11:00 [facility] [place] Height 2021-04-05 16:11:00 160.02 cm [facility] Weight 2021-04-05 16:11:00 [facility] [place] BMI Calculated 2021-04-05 16:11:00 [facility] [place] Systolic (mm Hg) 2020-03-09 17:28:00 [facility] [place] Diastolic (mm Hg) 2020-03-09 17:28:00 [facility] Heart Rate 2020-03-09 17:28:00 [facility] Height 2020-03-09 17:28:00 160.02 cm [facility] Weight 2020-03-09 17:28:00 [facility] BMI Calculated 2020-03-09 17:28:00 [facility] [place] Systolic (mm Hg) 2020-01-12 02:03:00 [facility] [place] Diastolic (mm Hg) 2020-01-12 02:03:00 [facility] [place] Respitory Rate 2020-01-12 02:03:00 [facility] Heart Rate 2020-01-12 02:03:00 [facility] [place] Temperature Oral (F) 2020-01-12 02:03:00 98.6 F [facility] [place] Height 2020-01-11 22:44:00 160.02 cm [facility] BMI Calculated 2020-01-11 22:44:00 [facility] [place] Weight 2020-01-11 22:44:00 [facility] [place] Systolic (mm Hg) 2020-01-11 22:44:00 [facility] [place] Diastolic (mm Hg) 2020-01-11 22:44:00 [facility] Heart Rate 2020-01-11 22:44:00 [facility] [place] Respitory Rate 2020-01-11 22:44:00 [facility] Temperature Oral (F) 2020-01-11 22:44:00 98.8 F [facility] [place] Systolic (mm Hg) 2018-12-31 15:55:00 [facility] [place] Diastolic (mm Hg) 2018-12-31 15:55:00 [facility] Heart Rate 2018-12-31 15:55:00 [facility] [place] Temperature Oral (F) 2018-12-31 15:55:00 98.9 F [facility] Height 2018-12-31 15:55:00 160.02 cm [facility] Weight 2018-12-31 15:55:00 [facility] BMI Calculated 2018-12-31 15:55:00 [facility] [place] BMI Calculated 2018-09-22 20:52:00 [facility] [place] Height 2018-09-22 20:52:00 160.02 cm [facility] [place] Weight 2018-09-22 20:52:00 [facility] Systolic (mm Hg) 2018-09-22 20:52:00 [facility] Diastolic (mm Hg) 2018-09-22 20:52:00 [facility] Heart Rate 2018-09-22 20:52:00 [facility] [place] Temperature Oral (F) 2018-09-22 20:52:00 98.3 F [facility] Systolic (mm Hg) 2018-09-03 13:41:00 [facility] Diastolic (mm Hg) 2018-09-03 13:41:00 [facility] Temperature Oral (F) 2018-09-03 13:41:00 98.7 F [facility] Heart Rate 2018-09-03 13:41:00 [facility] [place] Height 2018-09-03 13:41:00 160.02 cm [facility] BMI Calculated 2018-09-03 13:41:00 [facility] Weight 2018-09-03 13:41:00 [facility] [place] Height 2018-07-28 18:46:00 160.02 cm [facility] Weight 2018-07-28 18:46:00 [facility] [place] BMI Calculated 2018-07-28 18:46:00 [facility] [place] Respitory Rate 2018-07-28 18:46:00 [facility] [place] Heart Rate 2018-07-28 18:46:00 [facility] [place] Systolic (mm Hg) 2018-07-28 18:46:00 [facility] [place] Diastolic (mm Hg) 2018-07-28 18:46:00 [facility] [...] Oral (F) 2018-01-05 20:02:00 99 F [facility] [place] Heart Rate 2018-01-05 20:02:00 [facility] Height 2018-01-05 20:02:00 160.02 cm [facility] [place] Weight 2018-01-05 20:02:00 [facility] BMI Calculated 2018-01-05 20:02:00 [facility] [place] Systolic (mm Hg) 2018-01-05 20:02:00 [facility] Diastolic (mm Hg) 2018-01-05 20:02:00 [facility] BMI Calculated 2017-10-06 19:44:00 [facility] [place] Weight 2017-10-06 19:44:00 [facility] Height 2017-10-06 19:44:00 160.02 cm [facility] Heart Rate 2017-10-06 19:44:00 [facility] Temperature Oral (F) 2017-10-06 19:44:00 98.4 F [facility] [place] Systolic (mm Hg) 2017-10-06 19:44:00 [facility] Diastolic (mm Hg) 2017-10-06 19:44:00 [facility] Temperature Oral (F) 2017-07-02 19:47:00 98.4 F [facility] [place] BMI Calculated 2017-07-02 19:47:00 [facility] [place] Height 2017-07-02 19:47:00 160.02 cm [facility] Systolic (mm Hg) 2017-07-02 19:47:00 [facility] Diastolic (mm Hg) 2017-07-02 19:47:00 [facility] [place] Weight 2017-07-02 19:47:00 [facility] [place] Systolic (mm Hg) 2017-06-09 18:55:00 [facility] [place] Diastolic (mm Hg) 2017-06-09 18:55:00 [facility] [place] Height 2017-06-09 18:55:00 160.02 cm [facility] [place] Weight 2017-06-09 18:55:00 [facility] [place] BMI Calculated 2017-06-09 18:55:00 [facility] [place] Heart Rate 2017-06-09 18:55:00 [facility] [place] Temperature Oral (F) 2017-06-09 18:55:00 98.3 F [facility] BMI Calculated 2017-03-31 19:54:00 [facility] Weight 2017-03-31 19:54:00 [facility] [place] Height 2017-03-31 19:54:00 160.02 cm [facility] [place] Temperature Oral (F) 2017-03-31 19:54:00 99.0 F [facility] Systolic (mm Hg) 2017-03-31 19:54:00 [facility] Diastolic (mm Hg) 2017-03-31 19:54:00 [facility] Weight 2017-02-23 19:45:00 [facility] [place] BMI Calculated 2017-02-23 19:45:00 [facility] Height 2017-02-23 19:45:00 160.02 cm [facility] Systolic (mm Hg) 2017-02-23 19:45:00 [facility] [place] Diastolic (mm Hg) 2017-02-23 19:45:00 [facility] [place] Temperature Oral (F) 2017-02-23 19:45:00 97.9 F [facility] Systolic (mm Hg) 2016-03-12 19:37:00 [facility] Diastolic (mm Hg) 2016-03-12 19:37:00 [facility] Heart Rate 2016-03-12 19:37:00 [facility] [place] Weight 2016-03-12 19:37:00 [facility] BMI Calculated 2016-03-12 19:37:00 [facility] [place] Height 2016-03-12 19:37:00 160.02 cm [facility] Respitory Rate 2016-03-12 19:37:00 [facility] Respitory Rate 2015-09-16 23:31:00 [facility] [place] Heart Rate 2015-09-16 23:31:00 [facility] [place] Systolic (mm Hg) 2015-09-16 23:31:00 [facility] Diastolic (mm Hg) 2015-09-16 23:31:00 [facility] [place] BMI Calculated 2015-09-16 21:59:00 [facility] [place] Weight 2015-09-16 21:59:00 [facility] [place] Temperature Oral (F) 2015-09-16 21:59:00 98.0 F [facility] [place] Heart Rate 2015-09-16 21:59:00 [facility] [place] Respitory Rate 2015-09-16 21:59:00 [facility] Height 2015-09-16 21:59:00 160.02 cm [facility] Systolic (mm Hg) 2015-09-16 21:59:00 [facility] [place] Diastolic (mm Hg) 2015-09-16 21:59:00 [facility] BMI Calculated 2015-03-14 20:38:00 [facility] Weight 2015-03-14 20:38:00 [facility] [place] Height 2015-03-14 20:38:00 160.02 cm [facility] [place] Heart Rate 2015-03-14 20:38:00 [facility] [place] Temperature Oral (F) 2015-03-14 20:38:00 97.9 F [facility] Systolic (mm Hg) 2015-03-14 20:38:00 [facility] Diastolic (mm Hg) 2015-03-14 20:38:00 [facility] Systolic (mm Hg) 2013-11-30 21:22:00 [facility] Diastolic (mm Hg) 2013-11-30 21:22:00 [facility] [place] Respitory Rate 2013-11-30 21:22:00 [facility] [place] Heart Rate 2013-11-30 21:22:00 [facility] [place] Systolic (mm Hg) 2013-11-30 19:00:00 [facility] [place] Diastolic (mm Hg) 2013-11-30 19:00:00 [facility] [place] Heart Rate 2013-11-30 19:00:00 [facility] Respitory Rate 2013-11-30 19:00:00 [facility] [place] Weight 2013-11-30 17:06:00 [facility] Height 2013-11-30 17:06:00 160.02 cm [facility] BMI Calculated 2013-11-30 17:06:00 [facility] [place] Temperature Oral (F) 2013-11-30 17:06:00 98.2 F [facility] [place] Respitory Rate 2013-11-30 17:06:00 [facility] [place] Heart Rate 2013-11-30 17:06:00 [facility] [place] Diastolic (mm Hg) 2013-11-30 17:06:00 [facility] Systolic (mm Hg) 2013-11-30 17:06:00 [facility] Procedures Procedure Date / Time Performing Clinician Source Performed CT, head, w/o contrast 2022-02-24 00:00:00 [facility] URINE CULTURE 2021-09-23 00:00:00 Provider, Not In [facility] POC URINALYSIS DIPSTICK 2021-08-21 19:36:00 Emily Vazquez [facility] [id number] 2021-08-21 19:36:00 Emily Vazquez [facility] Cholecystectomy 2013-03-30 06:00:00 [facility] Bilateral tubal ligation [facility] [place] Carpal tunnel release [facility] ermann Mammogram [facility] Cystoscopy [facility] Carpal Tunnel Surgery [facility] Cholecystectomy [facility] Tubal Ligation [facility] Plan of Care Planned Activity Planned Date Details Comments Source Future Scheduled Test 2022-10-[facility] 16[facility]08:55 malignant neoplasm of colon (procedure) [code = [id number]] Future Scheduled Test 2022-10-26 [facility] 16:08:55 malignant neoplasm of colon (procedure) [code = [id number]] Future Scheduled Test 2022-10-26 Screening for [facility] 16:08:55 malignant neoplasm of colon (procedure) [code = [id number]] Future Scheduled Test 2022-10-26 Hepatitis C screening [facility] 16:08:55 (procedure) [code = 471235928] Future Scheduled Test 2022-10-26 BREAST CANCER [facility] 16:08:55 SCREENING [code = BREAST CANCER SCREENING] Future Scheduled Test 2022-10-26 SHINGLES VACCINES (1 [facility] 16:08:55 of 2) [code = SHINGLES VACCINES (1 of 2)] Future Scheduled Test 2022-10-26 Screening for [facility] 16:08:55 malignant neoplasm of colon (procedure) [code = 096202014] Future Scheduled Test 2022-10-26 Screening for [facility] 16:08:55 malignant neoplasm of colon (procedure) [code = 324115689] Future Scheduled Test 2022-10-26 65+ PNEUMOCOCCAL [facility] 16:08:55 VACCINE (1 - PCV) [code = 65+ PNEUMOCOCCAL VACCINE (1 - PCV)] Future Scheduled Test 2022-10-26 INFLUENZA VACCINE [facility] 16:08:55 [code = INFLUENZA VACCINE] Diagnostic Test 2022-10-20 H pylori igm+igg+iga [facility] Pending 00:00:00 Ab, serum [code = H [facility] pylori igm+igg+iga Ab, serum] Future Scheduled Test 2022-10-17 Screening for [facility] 11:25:39 malignant neoplasm of colon (procedure) [code = [id number]] Future Scheduled Test 2022-10-17 Screening for [facility] 11:25:39 malignant neoplasm of colon (procedure) [code = 842149387] Future Scheduled Test 2022-10-17 [facility] 11:25:39 malignant neoplasm of colon (procedure) [code = 480919809] Future Scheduled Test 2022-10-17 Hepatitis C screening [facility] 11:25:39 (procedure) [code = 678356310] Future Scheduled Test 2022-10-17 [facility] 11:25:39 SCREENING [code = BREAST CANCER SCREENING] Future Scheduled Test 2022-10-17 [facility] 11:25:39 of 2) [code = SHINGLES VACCINES (1 of 2)] Future Scheduled Test 2022-10-17 [facility] 11:25:39 malignant neoplasm of colon (procedure) [code = 718345169] Future Scheduled Test 2022-10-17 [facility] 11:25:39 malignant neoplasm of colon (procedure) [code = 207501337] Future Scheduled Test 2022-10-17 65+ PNEUMOCOCCAL [facility] 11:25:39 VACCINE (1 - PCV) [code = 65+ PNEUMOCOCCAL VACCINE (1 - PCV)] Future Scheduled Test 2022-10-17 INFLUENZA VACCINE [facility] 11:25:39 [code = INFLUENZA VACCINE] Future Scheduled Test 2022-10-17 Screening for [facility] 11:25:39 malignant neoplasm of colon (procedure) [code = 052791900] Future Scheduled Test 2022-10-17 Screening for [facility] 11:25:39 malignant neoplasm of colon (procedure) [code = 032965271] Future Scheduled Test 2022-10-17 Screening for [facility] 11:25:39 malignant neoplasm of colon (procedure) [code = 452373268] Future Scheduled Test 2022-10-17 Hepatitis C screening [facility] 11:25:39 (procedure) [code = 482906273] Future Scheduled Test 2022-10-17 [facility]ER [facility] 11:25:39 SCREENING [code = BREAST CANCER SCREENING] Future Scheduled Test 2022-10-17 SHINGLES VACCINES (1 [facility] 11:25:39 of 2) [code = SHINGLES VACCINES (1 of 2)] Future Scheduled Test 2022-10-17 [facility] 11:25:39 malignant neoplasm of colon (procedure) [code = 323186016] Future Scheduled Test 2022-10-17 [facility] 11:25:39 malignant neoplasm of colon (procedure) [code = 251780726] Future Scheduled Test 2022-10-17 65+ PNEUMOCOCCAL [facility] 11:25:39 VACCINE (1 - PCV) [code = 65+ PNEUMOCOCCAL VACCINE (1 - PCV)] Future Scheduled Test 2022-10-17 INFLUENZA VACCINE [facility] 11:25:39 [code = INFLUENZA VACCINE] Future Scheduled Test 2022-10-17 [facility] 11:25:39 malignant neoplasm of colon (procedure) [code = 617743093] Future Scheduled Test 2022-10-17 [facility] 11:25:39 malignant neoplasm of colon (procedure) [code = 437953300] Future Scheduled Test 2022-10-17 [facility] 11:25:39 malignant neoplasm of colon (procedure) [code = 687209906] Future Scheduled Test 2022-10-17 Hepatitis C screening [facility] 11:25:39 (procedure) [code = 544048300] Future Scheduled Test 2022-10-17 BREAST CANCER [facility] 11:25:39 SCREENING [code = BREAST CANCER SCREENING] Future Scheduled Test 2022-10-17 SHINGLES VACCINES (1 [facility] 11:25:39 of 2) [code = SHINGLES VACCINES (1 of 2)] Future Scheduled Test 2022-10-17 [facility] 11:25:39 malignant neoplasm of colon (procedure) [code = 194838528] Future Scheduled Test 2022-10-17 [facility] 11:25:39 malignant neoplasm of colon (procedure) [code = 539513414] Future Scheduled Test 2022-10-17 65+ PNEUMOCOCCAL [facility] 11:25:39 VACCINE (1 - PCV) [code = 65+ PNEUMOCOCCAL VACCINE (1 - PCV)] Future Scheduled Test 2022-10-17 INFLUENZA VACCINE [facility] 11:25:39 [code = INFLUENZA VACCINE] Future Scheduled Test 2022-10-02 [facility] 23:55:18 malignant neoplasm of colon (procedure) [code = 314148888] Future Scheduled Test 2022-10-02 [facility] 23:55:18 malignant neoplasm of colon (procedure) [code = 131369707] Future Scheduled Test 2022-10-02 Screening for [facility] 23:55:18 malignant neoplasm of colon (procedure) [code = 979536810] Future Scheduled Test 2022-10-02 Hepatitis C screening [facility] 23:55:18 (procedure) [code = 441064428] Future Scheduled Test 2022-10-02 [facility] 23:55:18 SCREENING [code = BREAST CANCER SCREENING] Future Scheduled Test 2022-10-02 SHINGLES VACCINES (1 [facility] 23:55:18 of 2) [code = SHINGLES VACCINES (1 of 2)] Future Scheduled Test 2022-10-02 Screening for [facility] 23:55:18 malignant neoplasm of colon (procedure) [code = 459175199] Future Scheduled Test 2022-10-02 Screening for [facility] 23:55:18 malignant neoplasm of colon (procedure) [code = 791085631] Future Scheduled Test 2022-10-02 65+ PNEUMOCOCCAL [facility] 23:55:18 VACCINE (1 - PCV) [code = 65+ PNEUMOCOCCAL VACCINE (1 - PCV)] Future Scheduled Test 2022-10-02 INFLUENZA VACCINE [facility] 23:55:18 [code = INFLUENZA VACCINE] Future Scheduled Test 2022-10-02 Screening for [facility] 23:55:18 malignant neoplasm of colon (procedure) [code = 816782825] Future Scheduled Test 2022-10-02 Screening for [facility] 23:55:18 malignant neoplasm of colon (procedure) [code = 013120215] Future Scheduled Test 2022-10-02 [facility] 23:55:18 malignant neoplasm of colon (procedure) [code = 265946361] Future Scheduled Test 2022-10-02 Hepatitis C screening [facility] 23:55:18 (procedure) [code = 598405693] Future Scheduled Test 2022-10-02 [facility] 23:55:18 SCREENING [code = BREAST CANCER SCREENING] Future Scheduled Test 2022-10-02 SHINGLES VACCINES (1 [facility] 23:55:18 of 2) [code = SHINGLES VACCINES (1 of 2)] Future Scheduled Test 2022-10-02 [facility] 23:55:18 malignant neoplasm of colon (procedure) [code = 714806391] Future Scheduled Test 2022-10-02 [facility] 23:55:18 malignant neoplasm of colon (procedure) [code = 642675349] Future Scheduled Test 2022-10-02 65+ PNEUMOCOCCAL [facility] 23:55:18 VACCINE (1 - PCV) [code = 65+ PNEUMOCOCCAL VACCINE (1 - PCV)] Future Scheduled Test 2022-10-02 INFLUENZA VACCINE [facility] 23:55:18 [code = INFLUENZA VACCINE] Future Scheduled Test 2022-09-12 [facility] 02:32:49 malignant neoplasm of colon (procedure) [code = 303331417] Future Scheduled Test 2022-09-12 [facility] 02:32:49 malignant neoplasm of colon (procedure) [code = 743369845] Future Scheduled Test 2022-09-12 [facility] 02:32:49 malignant neoplasm of colon (procedure) [code = 077821259] Future Scheduled Test 2022-09-12 Hepatitis C screening [facility] 02:32:49 (procedure) [code = 253730757] Future Scheduled Test 2022-09-12 [facility] 02:32:49 malignant neoplasm of cervix (procedure) [code = 105079176] Future Scheduled Test 2022-09-12 [facility] CANCER [facility] 02:32:49 SCREENING [code = BREAST CANCER SCREENING] Future Scheduled Test 2022-09-12 SHINGLES VACCINES (1 [facility] 02:32:49 of 2) [code = SHINGLES VACCINES (1 of 2)] Future Scheduled Test 2022-09-12 Screening for [facility] 02:32:49 malignant neoplasm of colon (procedure) [code = 854454957] Future Scheduled Test 2022-09-12 Screening for [facility] 02:32:49 malignant neoplasm of colon (procedure) [code = 240570901] Future Scheduled Test 2022-09-12 65+ PNEUMOCOCCAL [facility] 02:32:49 VACCINE (1 - PCV) [code = 65+ PNEUMOCOCCAL VACCINE (1 - PCV)] Future Scheduled Test 2022-09-12 INFLUENZA VACCINE [facility] 02:32:49 [code = INFLUENZA VACCINE] Future Scheduled Test 2022-09-12 [facility] 02:32:49 malignant neoplasm of colon (procedure) [code = 013715007] Future Scheduled Test 2022-09-12 [facility] 02:32:49 malignant neoplasm of colon (procedure) [code = 228607046] Future Scheduled Test 2022-09-12 [facility] 02:32:49 malignant neoplasm of colon (procedure) [code = 062291904] Future Scheduled Test 2022-09-12 [facility] 02:32:49 (procedure) [code = 014146391] Future Scheduled Test 2022-09-12 [facility] 02:32:49 malignant neoplasm of cervix (procedure) [code = 062197877] Future Scheduled Test 2022-09-12 BREAST CANCER [facility] 02:32:49 SCREENING [code = BREAST CANCER SCREENING] Future Scheduled Test 2022-09-12 SHINGLES VACCINES (1 [facility] 02:32:49 of 2) [code = SHINGLES VACCINES (1 of 2)] Future Scheduled Test 2022-09-12 [facility] 02:32:49 malignant neoplasm of colon (procedure) [code = 313294440] Future Scheduled Test 2022-09-12 [facility] 02:32:49 malignant neoplasm of colon (procedure) [code = 911191747] Future Scheduled Test 2022-09-12 65+ PNEUMOCOCCAL [facility] 02:32:49 VACCINE (1 - PCV) [code = 65+ PNEUMOCOCCAL VACCINE (1 - PCV)] Future Scheduled Test 2022-09-12 INFLUENZA VACCINE [facility] 02:32:49 [code = INFLUENZA VACCINE] Future Scheduled Test 2022-07-04 Hepatitis C screening [facility] 13:42:03 (procedure) [code = 984900677] Future Scheduled Test 2022-07-04 [facility] 13:42:03 malignant neoplasm of cervix (procedure) [code = 495466880] Future Scheduled Test 2022-07-04 BREAST CANCER [facility] 13:42:03 SCREENING [code = BREAST CANCER SCREENING] Future Scheduled Test 2022-07-04 COLONOSCOPY SCREENING [facility] 13:42:03 [code = COLONOSCOPY SCREENING] Future Scheduled Test 2022-07-04 SHINGLES VACCINES (1 [facility] 13:42:03 of 2) [code = SHINGLES VACCINES (1 of 2)] Future Scheduled Test 2022-07-04 65+ PNEUMOCOCCAL [facility] 13:42:03 VACCINE (1 - PCV) [code = 65+ PNEUMOCOCCAL VACCINE (1 - PCV)] Future Scheduled Test 2022-07-04 INFLUENZA VACCINE [facility] 13:42:03 [code = INFLUENZA VACCINE] Future Scheduled Test 2022-07-04 Hepatitis C screening [facility] 13:42:03 (procedure) [code = 180177538] Future Scheduled Test 2022-07-04 Screening for [facility] 13:42:03 malignant neoplasm of cervix (procedure) [code = 633127512] Future Scheduled Test 2022-07-04 BREAST CANCER [facility] 13:42:03 SCREENING [code = BREAST CANCER SCREENING] Future Scheduled Test 2022-07-04 COLONOSCOPY SCREENING [facility] 13:42:03 [code = COLONOSCOPY SCREENING] Future Scheduled Test 2022-07-04 SHINGLES VACCINES (1 [facility] 13:42:03 of 2) [code = SHINGLES VACCINES (1 of 2)] Future Scheduled Test 2022-07-04 65+ PNEUMOCOCCAL [facility] 13:42:03 VACCINE (1 - PCV) [code = 65+ PNEUMOCOCCAL VACCINE (1 - PCV)] Future Scheduled Test 2022-07-04 INFLUENZA VACCINE [facility] 13:42:03 [code = INFLUENZA VACCINE] Future Scheduled Test 2022-07-04 Hepatitis C screening [facility] 13:42:03 (procedure) [code = 960941801] Future Scheduled Test 2022-07-04 Screening for [facility] 13:42:03 malignant neoplasm of cervix (procedure) [code = 979311195] Future Scheduled Test 2022-07-04 BREAST CANCER [facility] 13:42:03 SCREENING [code = BREAST CANCER SCREENING] Future Scheduled Test 2022-07-04 COLONOSCOPY SCREENING [facility] 13:42:03 [code = COLONOSCOPY SCREENING] Future Scheduled Test 2022-07-04 SHINGLES VACCINES (1 [facility] 13:42:03 of 2) [code = SHINGLES VACCINES (1 of 2)] Future Scheduled Test 2022-07-04 65+ PNEUMOCOCCAL [facility] 13:42:03 VACCINE (1 - PCV) [code = 65+ PNEUMOCOCCAL VACCINE (1 - PCV)] Future Scheduled Test 2022-07-04 INFLUENZA VACCINE [facility] 13:42:03 [code = INFLUENZA VACCINE] Future Scheduled Test 2022-07-04 Hepatitis C screening [facility] 13:42:03 (procedure) [code = 725648688] Future Scheduled Test 2022-07-04 Screening for [facility] 13:42:03 malignant neoplasm of cervix (procedure) [code = 291249123] Future Scheduled Test 2022-07-04 BREAST CANCER [facility] 13:42:03 SCREENING [code = BREAST CANCER SCREENING] Future Scheduled Test 2022-07-04 COLONOSCOPY SCREENING [facility] 13:42:03 [code = COLONOSCOPY SCREENING] Future Scheduled Test 2022-07-04 SHINGLES VACCINES (1 [facility] 13:42:03 of 2) [code = SHINGLES VACCINES (1 of 2)] Future Scheduled Test 2022-07-04 65+ PNEUMOCOCCAL [facility] 13:42:03 VACCINE (1 - PCV) [code = 65+ PNEUMOCOCCAL VACCINE (1 - PCV)] Future Scheduled Test 2022-07-04 INFLUENZA VACCINE [facility] 13:42:03 [code = INFLUENZA VACCINE] Future Scheduled Test 2022-07-04 Hepatitis C screening [facility] 13:42:03 (procedure) [code = 389746402] Future Scheduled Test 2022-07-04 [facility] 13:42:03 malignant neoplasm of cervix (procedure) [code = 112840221] Future Scheduled Test 2022-07-04 BREAST CANCER [facility] 13:42:03 SCREENING [code = BREAST CANCER SCREENING] Future Scheduled Test 2022-07-04 Screening for [facility] 13:42:03 malignant neoplasm of colon (procedure) [code = 372231824] Future Scheduled Test 2022-07-04 SHINGLES VACCINES (1 [facility] 13:42:03 of 2) [code = SHINGLES VACCINES (1 of 2)] Future Scheduled Test 2022-07-04 65+ PNEUMOCOCCAL [facility] 13:42:03 VACCINE (1 - PCV) [code = 65+ PNEUMOCOCCAL VACCINE (1 - PCV)] Future Scheduled Test 2022-07-04 INFLUENZA VACCINE [facility] 13:42:03 [code = INFLUENZA VACCINE] Future Scheduled Test 2022-05-22 Hepatitis C screening [facility] 16:12:20 (procedure) [code = 409273020] Future Scheduled Test 2022-05-22 Screening for [facility] 16:12:20 malignant neoplasm of cervix (procedure) [code = 208318826] Future Scheduled Test 2022-05-22 BREAST CANCER [facility] 16:12:20 SCREENING [code = BREAST CANCER SCREENING] Future Scheduled Test 2022-05-22 COLONOSCOPY SCREENING [facility] 16:12:20 [code = COLONOSCOPY SCREENING] Future Scheduled Test 2022-05-22 SHINGLES VACCINES (1 [facility] 16:12:20 of 2) [code = SHINGLES VACCINES (1 of 2)] Future Scheduled Test 2022-05-22 65+ PNEUMOCOCCAL [facility] 16:12:20 VACCINE (1 - PCV) [code = 65+ PNEUMOCOCCAL VACCINE (1 - PCV)] Future Scheduled Test 2022-05-22 INFLUENZA VACCINE [facility] 16:12:20 [code = INFLUENZA VACCINE] Future Scheduled Test 2022-02-04 HEPATITIS B VACCINES [facility] 13:45:17 (1 of 3 - 3-dose series) [code = HEPATITIS B VACCINES (1 of 3 - 3-dose series)] Future Scheduled Test 2022-02-04 Hepatitis C screening [facility] 13:45:17 (procedure) [code = 738011617] Future Scheduled Test 2022-02-04 Screening for [facility] 13:45:17 malignant neoplasm of cervix (procedure) [code = 770871572] Future Scheduled Test 2022-02-04 BREAST CANCER [facility] 13:45:17 SCREENING [code = BREAST CANCER SCREENING] Future Scheduled Test 2022-02-04 COLONOSCOPY SCREENING [facility] 13:45:17 [code = COLONOSCOPY SCREENING] Future Scheduled Test 2022-02-04 SHINGLES VACCINES (1 [facility] 13:45:17 of 2) [code = SHINGLES VACCINES (1 of 2)] Future Scheduled Test 2022-02-04 65+ PNEUMOCOCCAL [facility] 13:45:17 VACCINE (1 - PCV) [code = 65+ PNEUMOCOCCAL VACCINE (1 - PCV)] Future Scheduled Test 2022-02-04 INFLUENZA VACCINE [facility] 13:45:17 [code = INFLUENZA VACCINE] Future Scheduled Test 2022-02-04 HEPATITIS B VACCINES [facility] 13:45:17 (1 of 3 - 3-dose series) [code = HEPATITIS B VACCINES (1 of 3 - 3-dose series)] Future Scheduled Test 2022-02-04 Hepatitis C screening [facility] 13:45:17 (procedure) [code = 561241417] Future Scheduled Test 2022-02-04 Screening for [facility] 13:45:17 malignant neoplasm of cervix (procedure) [code = 249482841] Future Scheduled Test 2022-02-04 BREAST CANCER [facility] 13:45:17 SCREENING [code = BREAST CANCER SCREENING] Future Scheduled Test 2022-02-04 COLONOSCOPY SCREENING [facility] 13:45:17 [code = COLONOSCOPY SCREENING] Future Scheduled Test 2022-02-04 SHINGLES VACCINES (1 [facility] 13:45:17 of 2) [code = SHINGLES VACCINES (1 of 2)] Future Scheduled Test 2022-02-04 65+ PNEUMOCOCCAL [facility] 13:45:17 VACCINE (1 - PCV) [code = 65+ PNEUMOCOCCAL VACCINE (1 - PCV)] Future Scheduled Test 2022-02-04 INFLUENZA VACCINE [facility] 13:45:17 [code = INFLUENZA VACCINE] Future Scheduled Test 2022-01-03 HEPATITIS B VACCINES [facility] 14:11:23 (1 of 3 - 3-dose series) [code = HEPATITIS B VACCINES (1 of 3 - 3-dose series)] Future Scheduled Test 2022-01-03 Hepatitis C screening [facility] 14:11:23 (procedure) [code = 884006824] Future Scheduled Test 2022-01-03 Screening for [facility] 14:11:23 malignant neoplasm of cervix (procedure) [code = 360755262] Future Scheduled Test 2022-01-03 BREAST CANCER [facility] 14:11:23 SCREENING [code = BREAST CANCER SCREENING] Future Scheduled Test 2022-01-03 COLONOSCOPY SCREENING [facility] 14:11:23 [code = COLONOSCOPY SCREENING] Future Scheduled Test 2022-01-03 SHINGLES VACCINES (1 [facility] 14:11:23 of 2) [code = SHINGLES VACCINES (1 of 2)] Future Scheduled Test 2022-01-03 65+ PNEUMOCOCCAL [facility] 14:11:23 VACCINE (1 - PCV) [code = 65+ PNEUMOCOCCAL VACCINE (1 - PCV)] Future Scheduled Test 2022-01-03 INFLUENZA VACCINE [facility] 14:11:23 [code = INFLUENZA VACCINE] Future Scheduled Test 2022-01-03 HEPATITIS B VACCINES [facility] 14:11:23 (1 of 3 - 3-dose series) [code = HEPATITIS B VACCINES (1 of 3 - 3-dose series)] Future Scheduled Test 2022-01-03 Hepatitis C screening [facility] 14:11:23 (procedure) [code = 272473965] Future Scheduled Test 2022-01-03 Screening for [facility] 14:11:23 malignant neoplasm of cervix (procedure) [code = 339535773] Future Scheduled Test 2022-01-03 BREAST CANCER [facility] 14:11:23 SCREENING [code = BREAST CANCER SCREENING] Future Scheduled Test 2022-01-03 COLONOSCOPY SCREENING [facility] 14:11:23 [code = COLONOSCOPY SCREENING] Future Scheduled Test 2022-01-03 SHINGLES VACCINES (1 [facility] 14:11:23 of 2) [code = SHINGLES VACCINES (1 of 2)] Future Scheduled Test 2022-01-03 65+ PNEUMOCOCCAL [facility] 14:11:23 VACCINE (1 - PCV) [code = 65+ PNEUMOCOCCAL VACCINE (1 - PCV)] Future Scheduled Test 2022-01-03 INFLUENZA VACCINE [facility] 14:11:23 [code = INFLUENZA VACCINE] Future Scheduled Test 2021-11-28 HEPATITIS B VACCINES [facility] 00:25:38 (1 of 3 - 3-dose series) [code = HEPATITIS B VACCINES (1 of 3 - 3-dose series)] Future Scheduled Test 2021-11-28 Hepatitis C screening [facility] 00:25:38 (procedure) [code = 011069624] Future Scheduled Test 2021-11-28 Screening for [facility] 00:25:38 malignant neoplasm of cervix (procedure) [code = 961204278] Future Scheduled Test 2021-11-28 BREAST CANCER [facility] 00:25:38 SCREENING [code = BREAST CANCER SCREENING] Future Scheduled Test 2021-11-28 COLONOSCOPY SCREENING [facility] 00:25:38 [code = COLONOSCOPY SCREENING] Future Scheduled Test 2021-11-28 SHINGLES VACCINES (1 [facility] 00:25:38 of 2) [code = SHINGLES VACCINES (1 of 2)] Future Scheduled Test 2021-11-28 65+ PNEUMOCOCCAL [facility] 00:25:38 VACCINE (1 - PCV) [code = 65+ PNEUMOCOCCAL VACCINE (1 - PCV)] Future Scheduled Test 2021-11-28 [facility] [facility] 00:25:38 [code = INFLUENZA VACCINE] Future Scheduled Test 2021-11-28 HEPATITIS B VACCINES [facility] 00:25:38 (1 of 3 - 3-dose series) [code = HEPATITIS B VACCINES (1 of 3 - 3-dose series)] Future Scheduled Test 2021-11-28 Hepatitis C screening [facility] 00:25:38 (procedure) [code = 069779566] Future Scheduled Test 2021-11-28 Screening for [facility] 00:25:38 malignant neoplasm of cervix (procedure) [code = 626747406] Future Scheduled Test 2021-11-28 BREAST CANCER [facility] 00:25:38 SCREENING [code = BREAST CANCER SCREENING] Future Scheduled Test 2021-11-28 COLONOSCOPY SCREENING [facility] 00:25:38 [code = COLONOSCOPY SCREENING] Future Scheduled Test 2021-11-28 SHINGLES VACCINES (1 [facility] 00:25:38 of 2) [code = SHINGLES VACCINES (1 of 2)] Future Scheduled Test 2021-11-28 65+ PNEUMOCOCCAL [facility] 00:25:38 VACCINE (1 - PCV) [code = 65+ PNEUMOCOCCAL VACCINE (1 - PCV)] Future Scheduled Test 2021-11-28 INFLUENZA VACCINE [facility] 00:25:38 [code = INFLUENZA VACCINE] Instructions [facility] Clinic s Encounters Start End Encounter Admission Attending Care Care Encounter Source Date/Time Date/Time Type Type Clinicians Facility Department ID 2022-10-23 Outpatient [facility] [id number] [place] 10:02:35 [id number] Health 2022-10-02 Outpatient [facility] [id number] [place] 08:45:47 [id number] [facility] 2022-09-26 Outpatient [facility] [id number] [place] 06:48:56 [id number] [facility] 2021-11-07 Outpatient [facility] [id number] [place] 01:51:34 [id number] [facility] 2021-10-07 Outpatient [facility] [id number] [place] 12:39:58 [id number] [facility] 2021-07-05 Outpatient KAMRON, [facility] [id number] [place] 01:03:47 LUCIEN [id number] [facility] 2022-11-04 2022-11-04 Outpatient JUN, [facility] [id number] [place] 14:00:00 14:00:00 LIANNESHARMIN Castillo 2022-10-23 2022-10-23 Emergency E SHEA HILL [facility] [id number] [facility] 08:10:00 10:51:00 2022-10-21 2022-10-21 Emergency E JABARI [facility]FB [id number] [facility]FB 09:28:00 13:14:00 JULIA 2022-10-20 2022-10-20 Kaitlin [facility] [place] 24 [place] 00:00:00 00:00:00 Umair [facility] mmuni REPAIRER WELDING EQUIPMENT-PRODUCE SHIPPER-B [facility] C: [address] [place] [address], CLINIC [address], [place] [address] , Ph. 2022-10-17 2022-10-17 Outpatient KAMRON [facility] [id number] [facility] 11:36:00 23:59:00 LUCIEN 2022-10-17 2022-10-17 External Kamron, EXT MSRDP [id number] [place] 11:30:00 11:45:00 Contact Lucien Nick LOCATION [id number] [facility] [id number] 2022-10-06 2022-10-06 Outpatient [facility]TON[facility] MED [id number] [facility] 10:28:00 23:59:00 MATTHEW Escamilla 2022-10-06 2022-10-06 Outpatient CHRETIEN_F [facility] [id number] [place] 00:00:00 00:00:00 0724 Commun i ty [facility] 2022-10-06 2022-10-06 Kaitlin [facility] [place] [id number] [place] 00:00:00 00:00:00 Umair [facility] mmuni REPAIRER WELDING EQUIPMENT-[facility] Hospital - ty C: [address] [facility], [address]IC [address], [place] [address] , Ph. 2022-10-03 2022-10-03 Outpatient CHRETIEN_F [facility] [id number] [place] 00:00:00 00:00:00 0707 Commun i ty [facility] 2022-10-03 2022-10-03 Outpatient CHRETIEN_F [facility] [id number] [place] 00:00:00 00:00:00 0710 Commun i ty [facility] 2022-09-11 2022-09-11 Kaitlin [facility] [place] 15 [place] 00:00:00 00:00:00 [facility] - ty C: [address] [facility], CLINIC [address] [place] [address] , Ph. 2022-09-04 2022-09-04 Emergency [facility] [id number] Memoria 15:44:51 19:16:00 Mart 76 l Scarbro Jada 2022-09-04 2022-09-04 Emergency E JOSE, MHFB MHFB [id number] MHFB 10:44:00 14:16:00 ARUN 2022-09-01 2022-09-01 Outpatient CHRETIEN_F [facility] [id number] [place] 00:00:00 00:00:00 0615 Commun i ty [facility] 2022-09-01 2022-09-01 Kaitlin [facility] [place] 05 [place] 00:00:00 00:00:00 Umair [facility] mmuni REPAIRER WELDING EQUIPMENT-PRODUCE SHIPPER-B Hospital - ty C: [address] [facility], CLINIC [address], [place] [address] , Ph. 2022-08-29 2022-08-29 Outpatient CHRETIEN_F [facility] [id number] [place] 00:00:00 00:00:00 0602 Commun i ty Hospita [facility] Clinics 2022-08-29 2022-08-29 Outpatient CHRETIEN_F [facility] [id number] [place] 00:00:00 00:00:00 0605 Commun i ty Hospita [facility] Clinics 2022-08-12 2022-08-12 Kaitlin [facility] [place] 00:00:00 00:00:00 Umair [facility] mmuni REPAIRER WELDING EQUIPMENT-PRODUCE SHIPPER-B Hospital - ty C: [address] [facility], CLINIC [address], [place] [address] , Ph. 2022-08-04 2022-08-04 Outpatient CHRETIEN_F [facility] [id number] [place] 00:00:00 00:00:00 0516 Commun i ty Hospita l Clinics 2022-07-21 2022-07-21 Outpatient CHRETIEN_F [facility] [id number] [place] 00:00:00 00:00:00 0424 Commun i ty Hospita l Clinics 2022-07-18 2022-07-18 Kaitlin [facility] [place] 00:00:00 00:00:00 [facility] REPAIRER WELDING EQUIPMENT-PRODUCE SHIPPER-B Hospital - ty C: [address] [facility], CLINIC [address], [place] [address] , Ph. 2022-07-08 2022-07-08 Outpatient CHRETIEN_F [facility] [id number] [place] 00:00:00 00:00:00 0411 Commun i ty Hospita l Clinics 2022-07-08 2022-07-08 Outpatient CHRETIEN_F [facility] 1044 [place] 00:00:00 00:00:00 0421 Commun i ty Hospita l Clinics 2022-07-08 2022-07-08 Kaitlin [facility] [place] 11 [place] 00:00:00 00:00:00 Julianne Block APRN-[facility]- Hospital - ty C: [address] [facility], CLINIC [address], [place] [address] , Ph. 2022-06-09 2022-06-09 Outpatient CHRETIEN_F [facility] [id number] [place] 00:00:00 00:00:00 0313 Commun i ty Hospita l Clinics 2022-04-11 2022-04-11 Outpatient CHRETIEN_F [facility] [id number] [place] 00:00:00 00:00:00 0120 Commun i ty Hospita [facility] Clinics 2022-03-27 2022-03-27 Outpatient CHRETIEN_F [facility] [id number] [place] 00:00:00 00:00:00 1229 Commun i ty Hospita l Clinics 2022-03-27 2022-03-27 Emily [facility] [place] [id number] [place] 00:00:00 00:00:00 Julianne Longoria APRN, MSN, Hospital - ty [facility]-: [address], CL[address]IC [address] [address] , Ph. 2022-03-26 2022-03-26 Outpatient CHRETIEN_F [facility] [id number] [place] 00:00:00 00:00:00 1228 Commun i ty Hospita l Clinics 2022-02-24 2022-02-24 Outpatient CHRETIEN_F [facility] [id number] [place] 00:00:00 00:00:00 1128 Commun i ty Hospita l Clinics 2022-02-24 2022-02-24 Kaitlin [facility] [place] [id number] [place] 00:00:00 00:00:00 Umair [facility] mmuni REPAIRER WELDING EQUIPMENT-PRODUCE SHIPPER-B Hospital - ty C: [address] [facility], CLINIC [address], [place] [address] , Ph. 2022-02-23 2022-02-23 Outpatient SISSON_C [facility] [id number] [place] 00:00:00 00:00:00 1127 Commun i ty Hospita l Clinics 2022-02-06 2022-02-06 Outpatient SISSON_C [facility] [id number] [place] 00:00:00 00:00:00 1110 Commun i ty Hospita l Clinics 2022-01-23 2022-01-23 Outpatient SISSON_C [facility] [id number] [place] 00:00:00 00:00:00 1027 Commun i ty [facility] 2022-01-23 2022-01-23 [facility] [place] 00:00:00 00:00:00 John, [facility] MSN, REPAIRER WELDING EQUIPMENT, Hospital - ty PRODUCE SHIPPER-C: [address] [place] [facility], Clinic s [address], [facility] [address], Mamta Lopez, [place]AEL MSN, PRODUCE SHIPPER-C [address] , Ph. 2022-01-15 2022-01-15 Outpatient SISSON_C [facility] [id number] [place] 00:00:00 00:00:00 1019 Commun i ty [facility] 2022-01-03 2022-01-03 Nick Smart.2.840.1 [id number] Methodi 00:00:00 00:00:00 Emily 85331.1.1 769 [facility] 3.430.2.7 Hosp bandar .3.437797 l .8 2022-01-03 2022-01-03 Alvarez Smart2.840.1 [id number] 21 [id number] Methodi 00:00:00 00:00:00 Emily 59583.1.1 769 [facility] 3.430.2.7 Hosp bandar .3.740751 l .8 2022-01-02 2022-01-02 Outpatient SISSON_C [facility] [id number] [place] 00:00:00 00:00:00 1006 Commun i ty [facility] 2021-12-30 2021-12-31 Inpatient CHICO Arauz, [facility] MEDI.01 [id number] [facility] 12:08:00 09:39:[address] [place] [address] 2021-12-18 2021-12-18 Outpatient SISSON_C [facility] [id number] [place] 00:00:00 00:00:00 0921 Commun i ty [facility] 2021-12-18 2021-12-18 [facility] [place] 00:00:00 00:00:00 John, [facility] MSN, REPAIRER WELDING EQUIPMENT, Hospital - ty PRODUCE SHIPPER-C: [address] [place] [facility] Clinic s [address], [facility] [address], Mamat Lopez, YAEL MSN, PRODUCE SHIPPER-C [address] , Ph. 2021-12-12 2021-12-12 Outpatient JOHN_C [facility] [id number] [place] 00:00:00 00:00:00 0915 Commun i ty [facility] 2021-12-12 2021-12-12 [facility] [id number] 00:00:00 00:00:00 Willy [id number] 2021-12-12 2021-12-12 [facility] [place] 00:00:00 00:00:00 John, [facility] MSN, REPAIRER WELDING EQUIPMENT, Hospital - ty PRODUCE SHIPPER-C: [address] [place] [facility] Clinic s [address], [facility] [address], Mamta Lopez, [place] MSN, [facility] [address] , Ph. 2021-12-10 2021-12-10 Outpatient SISSON_C [facility] [id number] [place] 00:00:00 00:00:00 0913 Commun i ty Hospita [facility] Clinics 2021-11-11 2021-11-11 Outpatient CHRETIEN_F [facility] [id number] [place] 00:00:00 00:00:00 0815 Commun i ty Hospita l Clinics 2021-11-08 2021-11-08 Outpatient CHRETIEN_F [facility] 1044 [place] 00:00:00 00:00:00 0812 Commun i ty Hospita l Clinics 2021-11-08 2021-11-08 Outpatient Emily Longoria [facility] [id number] 00:00:00 00:00:00 [id number] 2021-11-08 2021-11-08 [facility] [place] 00:00:00 00:00:00 Julianne Longoria [facility] reanna NAVARRETE, MSN, [facility]: [address], [address]IC [address], [place] [address] , Ph. 2021-11-06 2021-11-07 Outpt Diag nullFlavo [facility] [id number] Memoria 17:27:00 04:59:00 Services r Outpatient 03 l Imaging Mart Garcia 2021-10-22 2021-10-22 Outpatient CHRETIEN_F [facility] [id number] [place] 10:01:00 10:01:00 0726 Commun i ty Hospita l Clinics 2021-10-21 2021-10-21 Outpatient [facility] [id number] [place] 10:15:00 10:15:00 MATTHEW Escamilla 2021-10-21 2021-10-21 Outpatient CHRETIEN_F [facility] [id number] [place] 06:03:00 06:03:00 0725 Commun i ty Hospita l Clinics 2021-10-21 2021-10-21 Outpatient Umair [facility] [id number] 00:00:00 00:00:00 Kaitlin [id number] 2021-10-21 2021-10-21 Kaitlin [facility] [place] 00:00:00 00:00:00 Umair [facility] mmuni REPAIRER WELDING EQUIPMENT-PRODUCE SHIPPER-B Hospital - ty C: [address] [facility], CLINIC [address], [place] [address] , Ph. 2021-10-14 2021-10-14 [id number] [facility] 12:36:00 19:00:[address] 2021-10-14 2021-10-14 Outpatient [facility] [id number] [facility] 07:36:00 14:00:00 [place] 2021-10-14 2021-10-14 [facility] [id number] [place] 09:00:00 09:00:00 [facility] 2021-10-11 2021-10-11 Outpatient [facility] [id number] [place] 10:21:00 10:21:00 SSA 0715 da [facility] [place] 2021-10-08 2021-10-08 Outpatient WATERS_S [facility] [id number] [place] 03:10:00 03:10:00 0712 Commun i ty Hospita l Clinics 2021-09-23 2021-09-23 Orders Provider, 1.2.840.1 [id number] [id number] Methodi 00:00:00 00:00:00 Only Not In [address]9119.1.[address] System 3.430.2.7 Hospit a .3.974312 l .8 2021-09-23 2021-09-23 Telephone Lord, 1.2.840.1 [id number] 2099 [id number] Methodi 00:00:00 00:00:[address] 3.430.2.7 Hospit a .3.871847 l .8 2021-09-20 2021-09-20 Outpatient SANJUANAS [facility] [id number] [place] 12:16:00 12:16:00 0624 Commun i ty [facility] 2021-09-20 2021-09-20 [facility] [place] 00:00:00 00:00:00 [facility] MSN, REPAIRER WELDING EQUIPMENT, Hospital - ty PRODUCE SHIPPER-C: [address] [place] [facility] s [address], [facility] [address], Mamta Lopez, [place] MSN, PRODUCE SHIPPER-C [address] , Ph. 2021-09-20 2021-09-20 [facility] [id number] 00:00:00 00:00:00 [facility] [id number] 2021-09-11 2021-09-11 Terrell Vazquez 1.2.840.1 [id number] [id number] Methodi 00:00:00 00:00:00 Only Meily 24934.1.[address] [facility] 3.430.2.7 Hosp bandar .3.941904 l .8 2021-09-09 2021-09-09 Alvarez Smart2.840.1 [id number] Methodi 00:00:00 00:00:[address] [facility] 3.430.2.7 Hosp bandar .3.922303 l .8 2021-09-03 2021-09-03 Outpatient SANJUANAS [facility] [id number] [place] 01:31:00 01:31:00 0607 Commun i ty Hospita l Clinics 2021-08-21 2021-08-21 Office Nick Vazquez.2.840.1 [id number] 2099 086002 Methodi 14:45:00 15:41:16 Visit Emily 04141.1.[address] [facility] 3.430.2.7 Hosp bandar .3.989166 l .8 2021-08-21 2021-08-21 Travel 1.2.840.1 1.2.928.591 7372 232431 Methodi 00:00:00 00:00:[address] 3.430.2.7 0.2.7.3.698 Ho spita .3.993348 084.8 l .8 2021-07-31 2021-07-31 Outpatient WATERS_S [facility] 2021 [place] 04:50:00 04:50:00 0504 Commun i ty [facility]ospita [facility] 2021-07-31 2021-07-31 [facility] [place] 00:00:00 00:00:00 John [facility] MSN, REPAIRER WELDING EQUIPMENT, Hospital - ty PRODUCE SHIPPER-C: [address] [place] [facility], Clinic s [address], Willy [address], Mamta Lopez [place] MSN, PRODUCE SHIPPER-C [address] , Ph. 2021-07-31 2021-07-31 [facility] [id number] 00:00:00 00:00:00 Willy [id number] 2021-07-26 2021-07-26 Outpatient WATERSS [facility] [id number] [place] 05:01:00 05:01:00 0429 Commun i ty Hospita [facility] 2021-07-26 2021-07-26 [facility] [place] 00:00:00 00:00:00 John, [facility] MSN, REPAIRER WELDING EQUIPMENT, Hospital - ty PRODUCE SHIPPER-C: [address] [place] [facility], Clinic s [address], Willy [address], Mamta Lopez [place] MSN, PRODUCE SHIPPER-C [address] , Ph. 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 2021-05-30 2021-05-30 Outpatient [facility] [id number] 00:00:00 00:00:00 [place] [id number] 2021-04-26 2021-04-26 Outpatient WATERS_S [facility] [id number] [place] 04:02:00 04:02:00 0128 Commun i ty Hospita l Clinics 2021-04-10 2021-04-10 Outpatient WATERS_S [facility] [id number] [place] 10:19:00 10:19:00 0112 Commun i ty Hospita l Clinics 2021-04-09 2021-04-09 Outpatient WATERS_S [facility] [id number] [place] 02:44:00 02:44:00 0111 Commun i ty Hospita l Clinics 2021-04-09 2021-04-09 [facility] [place] 00:00:00 00:00:00 [facility] 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 2021-04-09 2021-04-09 Outpatient [facility] [id number] 00:00:00 00:00:00 [place] [id number] 2021-04-05 2021-04-06 Outpatient nullFlavo [facility] [id number] Memoria 16:06:00 05:59:00 r Disease 72 l [facility] 2021-04-05 2021-04-05 Outpatient KAMRON, [facility] [id number] [facility] 10:06:00 23:59:00 LUCIEN 2021-03-14 2021-03-14 Outpatient WATERS_S [facility] [id number] [place] 11:37:00 11:37:00 1216 Commun i ty Hospita [facility] 2021-03-14 2021-03-14 Roula [facility] [place] [id number] [place] 00:00:00 00:00:00 [facility] BOOTH OPERATOR-C: [address] [address], [place] [address] , Ph. 2021-03-14 2021-03-14 Outpatient [facility] [id number] 00:00:00 00:00:00 [place] [id number] 2021-03-04 2021-03-04 Outpatient FRANCISCO_S [facility] [id number] [place] 02:40:00 02:40:00 1206 Commun i ty Hospita [facility] 2021-03-04 2021-03-04 [place]oul[place] [facility] [place] [id number] [place] 00:00:00 00:00:00 [facility] BOOTH OPERATOR-C: Hospital [address], [place] [address] , Ph. 2021-03-04 2021-03-04 [facility] [id number] 00:00:00 00:00:00 [place] [id number] 2021-03-04 2021-03-04 Outpatient [facility] [id number] 00:00:00 00:00:00 [place] [id number] 2021-02-25 2021-02-25 [facility] [place] [id number] [place] 00:00:00 00:00:00 [facility] BOOTH OPERATOR-C: Hospital - [address], [place] [address] , Ph. 2021-02-25 2021-02-25 Outpatient Finn, [facility] [id number] 00:00:00 00:00:00 [place] [id number] 2021-01-14 2021-01-14 Outpatient WATERS_S [facility] [id number] [place] 05:43:00 05:43:00 1018 Commun i ty Hospita l Clinics 2021-01-14 2021-01-14 Outpatient [facility], [facility] [id number] 00:00:00 00:00:00 [place] [id number] 2021-01-14 2021-01-14 Outpatient [facility] [id number] 00:00:00 00:00:00 [place] [id number] 2021-01-14 2021-01-14 [facility] [place] 18 [place] 00:00:00 00:00:00 [facility] BOOTH OPERATOR-C: Hospital - ty [address] [place] [address] [address], [place] [address] , Ph. 2020-10-16 2020-10-16 Outpatient WATERS_S [facility] [id number] [place] 02:24:00 02:24:00 0720 Commun i ty Hospita l Clinics 2020-10-16 2020-10-16 Outpatient Finn, [facility] [id number] 00:00:00 00:00:00 [place] [id number] 2020-10-16 2020-10-16 [facility] [place] 00:00:00 00:00:00 [facility]-PROJECTOR BOOTH OPERATOR-C: Hospital - ty [address] [place] [address] [address], [place] [address] , Ph. 2020-09-28 2020-09-28 Outpatient [facility] [id number] [place] 12:14:00 12:14:00 0702 [facility] 2020-09-28 2020-09-28 Outpatient Finn, [facility] [id number] 00:00:00 00:00:00 [place] [id number] 2020-09-28 2020-09-28 [facility] [place] 00:00:00 00:00[facility]PER[facility] Hospital - ty [address] [place], [place] [address], [place] [address] , Ph. 2020-09-28 2020-09-28 Outpatient [place], [facility] [id number] 00:00:00 00:00:00 [place] [id number] 2020-08-30 2020-08-30 Outpatient [facility] [id number] [place] 05:28:00 05:28:00 0603 [facility] 2020-08-26 2020-08-26 Outpatient [facility] [id number] [place] 01:01:00 01:01:00 0530 [facility] 2020-08-20 2020-08-20 Outpatient [facility] [id number] [place] 05:07:00 05:07:00 0524 [facility] 2020-08-20 2020-08-20 [facility] [place] 24 [place] 00:00:00 00:00:00 [facility] [employer]-PROJECTOR BOOTH OPERATOR-C: [facility] - [place] [address], [place] [address] , Ph. 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 2020-08-13 2020-08-13 Outpatient Finn, [facility] [id number] 00:00:00 00:00:00 [place] [id number] 2020-07-26 2020-07-26 Outpatient WATERS_S [facility] [id number] [place] 05:04:00 05:04:00 [id number] Commun i ty [facility] 2020-07-26 2020-07-26 [facility] [place] [id number] [place] 00:00:00 00:00:00 [facility] [place], [facility] Comm uni REPAIRER WELDING EQUIPMENT-PROJECTOR BOOTH OPERATOR-C: Hospital - [address] [facility], [place] [address] , Ph. 2020-07-26 2020-07-26 Outpatient Francisco, [facility] [id number] 00:00:00 00:00:00 [place] [id number] 2020-07-24 2020-07-24 Outpatient SUSTACHE, [facility] [id number] [place] 00:00:00 00:00:00 SHIELA [address] 2020-07-23 2020-07-23 Emergency [facility] [id number] [place] 21:54:40 23:17:00 r Mart 71 l [place] 2020-07-23 2020-07-23 Emergency Jhony ALANIS, [facility] [id number] [facility] 16:54:00 18:17:00 NICHELLE 2020-03-09 2020-03-10 Outpatient nullFlavo [facility] [id number] Memoria 17:08:00 05:59:00 r Disease 70 l [facility] 2020-03-09 2020-03-09 Outpatient KAMRON, [facility] [address] [facility] 11:08:00 23:59:00 LUCIEN 2020-01-11 2020-01-12 Emergency [facility] [id number] [place] 22:36:56 02:26:00 r Mart 69 l [place] 2019-10-07 2019-10-08 Between nullFlavo [facility] [id number] Memoria 20:30:17 20:30:17 Visit r Primary 68 l [facility] 2019-10-07 2019-10-07 Ambulatory nullFlavo [facility] [id number] Mem[place] 20:30:00 20:30:00 Pre-Reg r Primary 27 l [facility] 2019-10-07 2019-10-07 Outpatient IE IE [id number] [place] 15:30:00 15:30:00 28 l [place] 2019-01-03 2019-01-04 Between nullFlavo [facility] [id number] Memoria 22:03:00 22:03:00 Visit r Primary 67 l [facility] 2018-12-31 2019-01-01 Outpatient nullFlavo [facility] [id number] Mem[place] 16:00:00 04:59:59 r Primary 26 l [facility] 2018 2018-09-28 Between nullFlavo [facility] [id number] Memoria 14:45:47 14:45:47 Visit r Primary 65 l [facility] 2018-09-24 2018-09-25 Between nullFlavo [facility] [id number] Memoria 17:35:02 17:35:02 Visit r Primary 64 l [facility] 2018-09-22 2018-09-23 Between nullFlavo [facility] [id number] Memoria 21:49:52 21:49:52 Visit r Primary 63 l [facility] 2018-09-22 2018-09-23 Outpatient nullFlavo [facility] [id number] Memoria 18:30:00 04:59:59 r Primary 25 l [facility] 2018-09-06 2018-09-07 Between nullFlavo [facility] [id number] Memoria 13:31:31 13:31:31 Visit r Primary 61 l [facility] 2018-09-03 2018-09-04 Outpatient nullFlavo [facility] [id number] Memoria 14:00:00 04:59:59 r Primary 24 l [facility] 2018-07-28 2018-07-29 Outpatient nullFlavo [place] [id number] Memoria 06:39:00 04:59:00 r Disease 60 l [facility] 2018-07-28 2018-07-28 Outpatient [facility] [id number] [facility] 01:39:00 01:39:00 2018-06-16 2018-06-17 Between nullFlavo [facility] [id number] Memoria 20:32:41 20:32:41 Visit r Primary 59 l [facility] 2018-06-14 2018-06-15 Outpatient nullFlavo [facility] [id number] Memoria 19:10:00 04:59:59 r Primary 23 l [facility] 2018-01-19 2018-01-21 Outside nullFlavo [facility] [id number] Memoria 16:25:00 04:59:59 Medical r Primary 38 l Records [facility] 2018-01-08 2018-01-10 Phone nullFlavo [facility] [id number] Memoria 13:55:00 04:59:59 Message r Primary 37 l [facility] 2018-01-08 2018-01-10 Phone nullFlavo [facility] [id number] Memoria 13:54:00 04:59:59 Message r Primary 36 l [facility] [place] 2018-01-05 2018-01-07 Phone nullFlavo [facility] [id number] Memoria 13:32:00 04:59:59 Message r Primary [facility] l [facility] [place] 2018-01-05 2018-01-06 Outpatient nullFlavo [facility] [id number] Memoria 19:50:00 04:59:59 r Primary 22 l [facility] 2018-01-05 2018-01-06 Outpt Diag nullFlavo [facility] [id number] Memoria 21:42:00 04:59:00 Services r Outpatient 02 l [facility] [place] 2017-12-30 2018-01-01 Phone nullFlavo [facility] [id number] Memoria 20:39:00 04:59:59 Message r Primary 34 l [facility] 2017-12-30 2018-01-01 Phone nullFlavo [facility] [id number] Memoria 15:11:00 04:59:59 Message r Primary 33 l [facility] 2017-11-06 2017-11-08 Phone nullFlavo [facility] [id number] Memoria 21:20:00 04:59:59 Message r Primary 32 l [facility] [place] 2017-10-06 2017-10-07 Outpatient nullFlavo [facility] [id number] Memoria 19:30:00 04:59:59 r Primary 21 l [facility] 2017-07-28 2017-07-30 Phone nullFlavo [facility] [id number] Memoria 20:09:00 04:59:59 Message r Primary 31 l [facility] 2017-07-27 2017-07-29 Phone nullFlavo [facility] [id number] Memoria 13:56:00 04:59:59 Message r Primary 30 l [facility] 2017-07-02 2017-07-03 Outpatient nullFlavo [facility] [id number] Memoria 19:50:00 04:59:59 r Primary 20 l [facility] 2017-06-29 2017-06-29 Ambulatory nullFlavo [facility] [id number] Memoria 19:50:00 19:50:00 Pre-Reg r Primary 19 l [facility] 2017-06-26 2017-06-28 Phone nullFlavo [facility] [id number] Memoria 19:14:00 04:59:59 Message r Primary 27 l [facility] 2017-06-15 2017-06-17 Phone nullFlavo MG [id number] Memoria 19:19:00 04:59:59 Message r Primary 26 l [facility] 2017-06-09 2017-06-10 Outpatient nullFlavo [facility] [id number] Mem[place] 18:50:00 04:59:59 r Primary 18 l [facility] 2017-06-05 2017-06-07 Phone nullFlavo [facility] [id number] Memoria 17:21:00 05:59:59 Message r Primary 25 l [facility] 2017-06-06 2017-06-06 Emergency nullFlavo [facility] [id number] Memoria 02:21:00 02:28:00 r [place] 17 l [facility] 2017-03-31 2017-04-01 Outpatient nullFlavo [facility] [id number] Memoria 19:50:00 05:59:59 r Primary 17 l [facility] 2017-03-12 2017-03-14 Phone nullFlavo [facility] [id number] Memoria 20:29:00 05:59:59 Message r Primary 24 l [facility] 2017-03-09 2017-03-11 Phone nullFlavo [facility] [id number] Memoria 14:24:00 05:59:59 Message r Primary 23 l [facility] 2017-02-23 2017-02-24 Outpatient nullFlavo [facility] [id number] Memoria 19:50:00 05:59:59 r Primary 16 l [facility] 2016-12-30 2016-12-30 Outpatient MHIE MHIE [id number] [place] 10:00:00 10:00:00 15 jamshid [place] 2016-11-12 2016-11-12 Outpatient MHIE MHIE [id number] [place] 09:40:00 09:40:00 14 jamshid [place] 2016-08-29 2016-08-29 Outpatient MHIE MHIE [id number] [place] 10:00:00 10:00:00 13 jamshid [place] 2016-07-30 2016-07-30 Outpatient MHIE MHIE [id number] [facility] 10:20:00 10:20:00 12 jamshid [place] 2016-06-03 2016-06-03 Outpatient MHIE MHIE [id number] [facility] 11:00:00 11:00:00 11 jamshid [place] 2016-05-15 2016-05-15 Outpatient MHIE MHIE [id number] [facility] 14:50:00 14:50:00 10 jamshid [place] 2016-04-17 2016-04-17 Outpatient MHIE MHIE [id number] [facility] 11:20:00 11:20:00 09 jamshid [place] 2016-03-25 2016-03-26 Outpt Diag nullFlavo [facility] [id number] Memoria 15:58:00 05:59:00 Services r Outpatient 01 jamshid [place] 2016-03-12 2016-03-13 Outpatient [facility] [id number] Memoria 19:31:00 05:59:00 r Mart 09 l [facility] Mart 2016-02-13 2016-02-13 Outpatient MHIE MHIE [id number] Mem[place] 10:00:00 10:00:00 08 jamshid [place] 2016-01-21 2016-01-21 Outpatient MHIE MHIE [id number] Mem[place] 09:20:00 09:20:00 07 jamshid [place] 2015-11-19 2015-11-19 Outpatient MHIE MHIE [id number] Mem[place] 13:50:00 13:50:00 06 jamshid [place] 2015-10-18 2015-10-18 Outpatient MHIE MHIE [id number] Memoria 09:00:00 09:00:00 05 jamshid [place] 2015-09-16 2015-09-17 EC [facility] [id number] Memoria 21:47:00 00:06:00 Emergency r Mart 05 l [facility] 2015-09-11 2015-09-11 Outpatient MHIE MHIE [id number] Mem[facility] 11:40:00 11:40:00 04 jamshid [place] 2015-08-23 2015-08-23 Outpatient MHIE MHIE [id number] Mem[place] 10:00:00 10:00:00 03 jamshid [place] 2015-07-10 2015-07-10 Outpatient MHIE MHIE [id number] Mem[facility] 11:20:00 11:20:00 02 l [place] 2015-05-17 2015-05-17 Outpatient EVITA JAMA [id number] Memoria 11:40:00 11:40:00 01 l [place] 2015-04-30 2015-04-30 Bedded Rocío [facility] [id number] Memoria 17:15:00 20:00:00 Outpatient r [place] [address] [facility] 2015-03-14 2015-03-15 Outpatient nullFlavo [facility] [id number] Memoria 20:09:00 05:59:00 r [place] [address] [facility] 2015-02-23 2015-02-24 Outpt Diag [facility] [id number] Memoria 12:58:00 05:59:00 Services r Outpatient 00 l [facility] 2015-01-30 2015-01-30 Outpatient EVITA JAMA [id number] Memoria 10:40:00 10:40:00 00 [facility] 2013-11-30 2013-11-30 [facility] [id number] Memoria 16:56:00 22:05:00 Emergency r [place] 00 l [place] Herma nn Results Test Description Test Time Test Comments Results Result Comments Source Urinalysis macro (dipstick) panel - Urine 2022-10-06 15:12:0 0 Test Item Value Reference Range Interpretation Comme nts Leukocytes (test code = Leukocytes) Negative Nitrite (test code = Nitrite) negative Urobilinogen (test code = Urobilinogen) .2 Protein (test code = Protein) Negative pH (test code = pH) 5.5 Blood (test code = Blood) Non-Hemolyzed: Trace Specific [place] (test code = Specific [place]) 1.020 Ketone (test code = Ketone) Trace Bilirubin (test code = Bilirubin) Negative Glucose (test code = Glucose) Negative Appearance (test code = Appearance) Clear Color (test code = Color) Yellow [facility] - Urine 2022-10-06 15:12:00 Test Item Value Reference Range Interpretation Comments Leukocytes (test code = Negative Leukocytes) Nitrite (test code = negative Nitrite) Urobilinogen (test code = .2 Urobilinogen) Protein (test code = Negative Protein) pH (test code = pH) 5.5 Blood (test code = Blood) Non-Hemolyzed: Trace Specific [place] (test 1.020 code = Specific [place]) Ketone (test code = Trace Ketone) Bilirubin (test code = Negative Bilirubin) Glucose (test code = Negative Glucose) Appearance (test code = Clear Appearance) Color (test code = Color) Yellow [facility] - Urine 2022-09-11 16:33:00 Test Item Value Reference Range Interpretation Comments Leukocytes (test code = Negative Leukocytes) Nitrite (test code = negative Nitrite) Urobilinogen (test code = .2 Urobilinogen) Protein (test code = Negative Protein) pH (test code = pH) 5.5 Blood (test code = Blood) Non-Hemolyzed: Trace Specific [place] (test 1.015 code = Specific [place]) Ketone (test code = Negative Ketone) Bilirubin (test code = Negative Bilirubin) Glucose (test code = Negative Glucose) Appearance (test code = Clear Appearance) Color (test code = Color) Pale Yellow [facility] panel - Urine 2022-09-11 16:33:00 Test Item Value Reference Range Interpretation Comments Leukocytes (test code = Negative Leukocytes) Nitrite (test code = negative Nitrite) Urobilinogen (test code = .2 Urobilinogen) Protein (test code = Negative Protein) pH (test code = pH) 5.5 Blood (test code = Blood) Non-Hemolyzed: Trace Specific [place] (test 1.015 code = Specific [place]) Ketone (test code = Negative Ketone) Bilirubin (test code = Negative Bilirubin) Glucose (test code = Negative Glucose) Appearance (test code = Clear Appearance) Color (test code = Color) Pale Yellow [facility] 18:01:26 Test Item Value Reference Range Interpretation Comments RADRPT (test code EXAM:Chest x-ray, 1 = RADRPT) view(s).CLINICAL HX: - upper back pain.Age: 66 years.Gender: Female.TECHNIQUE:As above.Facility: [facility]. COMPARISON: Chest x-ray: 01/05/2018.FINDINGS:Support apparatus: None.Cardiac silhouette: Unremarkable.Mediastinum:-- Rena: Unremarkable.-- Other: None.Lungs:-- Consolidation: Negative.-- Pleural effusion: Negative.-- Pneumothorax: Negative.-- Other: Negative.Bones: Unremarkable.Other: None.IMPRESSION:1. No acute cardiopulmonary process. [place] [address]-06-08 17:36:00 Test Item Value Reference Range Interpretation Comments HS Troponin I 1 Hr (test code = HS no gt Troponin I 1 Hr) [place] [address]-06-08 17:36:00 Test Item Value Reference Range Interpretation Comments HS Troponin I 0 to 1 Hour Delta (test no gt code = HS Troponin I 0 to 1 Hour Delta) [place] [address]-06-08 16:34:00 Test Item Value Reference Range Interpretation Comments Glucose Lvl (test code = Glucose Lvl) 113 70-99 [place] [address]-06-08 16:34:00 Test Item Value Reference Range Interpretation Comments BUN (test code = BUN) 7 7-22 [place] [address]-06-08 16:34:00 Test Item Value Reference Range Interpretation Comments Creatinine Lvl (test code = Creatinine 0.97 0.50-1.40 Lvl) [place] [address]-06-08 16:34:00 Test Item Value Reference Range Interpretation Comments Sodium Lvl (test code = Sodium Lvl) 140 135-145 [place] [address]-06-08 16:34:00 Test Item Value Reference Range Interpretation Comments Potassium Lvl (test code = Potassium 3.4 3.5-5.1 Lvl) [place] [address]-06-08 16:34:00 Test Item Value Reference Range Interpretation Comments Chloride Lvl (test code = Chloride Lvl) 107 95-109 [place] [address]-06-08 16:34:00 Test Item Value Reference Range Interpretation Comments CO2 (test code = CO2) 27 24-32 [place] [address]-06-08 16:34:00 Test Item Value Reference Range Interpretation Comments Calcium Lvl (test code = Calcium Lvl) 9.4 8.5-10.5 [place] [address]-06-08 16:34:00 Test Item Value Reference Range Interpretation Comments Total Protein (test code = Total 7.5 6.4-8.4 Protein) [place] [address]-06-08 16:34:00 Test Item Value Reference Range Interpretation Comments Albumin Lvl (test code = Albumin Lvl) 3.9 3.5-5.0 [facility] [id number] 16:34:00 Test Item Value Reference Range Interpretation Comments ALT (test code = ALT) 37 See_Comment [Auto mated message] The system which ge nerated this result transmit fabi reference range : <=65. The reference range was not used to interpr et this result as bhavya l/abnormal. [facility] [id number] 16:34:00 Test Item Value Reference Range Interpretation Comments AST (test code = AST) 26 See_Comment [Auto mated message] The system which ge nerated this result transmit fabi reference range : <=37. The reference range was not used to interpr et this result as bhavya l/abnormal. [facility] EywwnrlQWFSDNUAC0239-74-03 16:34:00 Test Item Value Reference Range Interpretation Comments Alk Phos (test code = Alk Phos) 75 39-136 [facility] [id number] 16:34:00 Test Item Value Reference Range Interpretation Comments Bili Total (test code = Bili Total) 0.9 0.2-1.3 [facility] HagvmaaPKMRUAZMI0616-06-22 16:34:00 Test Item Value Reference Range Interpretation Comments AGAP (test code = AGAP) 9.4 10.0-20.0 [facility] [id number] 16:34:00 Test Item Value Reference Range Interpretation Comments B/C Ratio (test code = B/C Ratio) 7 1 6-25 [facility] KtvjbzuUKZZMUEHE7495-50-20 16:34:00 Test Item Value Reference Range Interpretation Comments Globulin (test code = Globulin) 3.6 2.7-4.2 [facility] PtsuxuwISCSCEIVA0455-60-10 16:34:00 Test Item Value Reference Range Interpretation Comments A/G Ratio (test code = A/G Ratio) 1.1 1 0.7-1.6 [facility] [id number] 16:34:00 Test Item Value Reference Range Interpretation Comments eGFR (test code = eGFR) 65 [facility] YmjjduzTSPCOAYYC1678-35-24 16:34:00 Test Item Value Reference Range Interpretation Comments HS Troponin I Baseline (test code = HS no gt Troponin I Baseline) [facility]PO3879-77-83 16:34:00 Test Item Value Reference Range Interpretation Comments Lipase Lvl (test code = Lipase Lvl) 39 13-77 [facility]fqxzmiMPYSYUAOVM1816-26-01 16:34:00 Test Item Value Reference Range Interpretation Comments WBC (test code = WBC) 6.1 3.7-10.4 [facility] CenterRfzankmWYFVOJQFAX0765-69-20 16:34:00 Test Item Value Reference Range Interpretation Comments RBC (test code = RBC) 5.40 4.20-5.40 [facility] CenterLkzapmgERZRFFHUWP0179-91-58 16:34:00 Test Item Value Reference Range Interpretation Comments Hgb (test code = Hgb) 16.3 12.0-16.0 [place] 551413-06-08 16:34:00 Test Item Value Reference Range Interpretation Comments Hct (test code = Hct) 48.8 36.0-48.0 [facility] CenterWjvqhsnCNLGJUIRIG9166-03-91 16:34:00 Test Item Value Reference Range Interpretation Comments MCV (test code = MCV) 90.4 80.0-98.0 [facility] CenterOhfxrklXLMXNGZMWR0632-11-74 16:34:00 Test Item Value Reference Range Interpretation Comments MCH (test code = MCH) 30.2 pg 27.0-31.0 [facility] CenterFyeqocgXYHOYUXCCY4828-03-57 16:34:00 Test Item Value Reference Range Interpretation Comments MCHC (test code = MCHC) 33.4 32.0-36.0 [facility] CenterDlrizrxLBTYPCOGIO3067-85-11 16:34:00 Test Item Value Reference Range Interpretation Comments RDW (test code = RDW) 14.1 11.5-14.5 [facility] CenterKkmmqitIQEPFNDXEX1364-99-35 16:34:00 Test Item Value Reference Range Interpretation Comments Platelet (test code = Platelet) 221 133-450 [facility] CenterJbaoiqoQEJXTUPNTO7172-35-10 16:34:00 Test Item Value Reference Range Interpretation Comments MPV (test code = MPV) 9.3 7.4-10.4 [place] 551413-06-08 16:34:00 Test Item Value Reference Range Interpretation Comments Segs (test code = Segs) 61.6 45.0-75.0 [facility] CenterLwfsojlZIYBETWDFE7581-16-63 16:34:00 Test Item Value Reference Range Interpretation Comments Lymphocytes (test code = Lymphocytes) 29.1 20.0-40.0 [place] [address]-06-08 16:34:00 Test Item Value Reference Range Interpretation Comments Monocytes (test code = Monocytes) 7.4 2.0-12.0 [place] [address]-06-08 16:34:00 Test Item Value Reference Range Interpretation Comments Eosinophils (test code = 1.0 See_Comment [A utomated message] The Eosinophils) system which ge nerated this result tra nsmitted reference range : <=4.0. The reference r theron was not used to int erpret this result as normal/abnormal . [place] 551413-06-08 16:34:00 Test Item Value Reference Range Interpretation Comments Basophils (test code = 0.9 See_Comment [Aut omated message] The Basophils) system which ge nerated this result tra nsmitted reference range : <=1.0. The reference r theron was not used to int erpret this result as normal/abnormal . [place] 551413-06-08 16:34:00 Test Item Value Reference Range Interpretation Comments Neutrophils # (test code = Neutrophils 3.8 1.5-8.1 #) [place] 551413-06-08 16:34:00 Test Item Value Reference Range Interpretation Comments Lymphocytes # (test code = Lymphocytes 1.8 1.0-5.5 #) [place] [address]-06-08 16:34:00 Test Item Value Reference Range Interpretation Comments Monocytes # (test code 0.5 See_Comment [Aut omated message] The = Monocytes #) system which generated this result tra nsmitted reference range : <=0.8. The reference r theron was not used to int erpret this result as normal/abnormal . [place] 551413-06-08 16:34:00 Test Item Value Reference Range Interpretation Comments Eosinophils # (test code 0.1 See_Comment [A utomated message] The = Eosinophils #) system whic h generated this result tra nsmitted reference range : <=0.5. The reference r theron was not used to int erpret this result as normal/abnormal . [place] [address]-06-08 16:34:00 Test Item Value Reference Range Interpretation Comments Basophils # (test code 0.1 See_Comment [Aut omated message] The = Basophils #) system which generated this result tra nsmitted reference range : <=0.2. The reference r theron was not used to int erpret this result as normal/abnormal . [facility] AND [id number] 16:34:00 Test Item Value Reference Range Interpretation Comments UA Color (test code = Light Yellow UA Color) *NA*(09/04/22 11:34 AM) [facility] AND [id number] 16:34:00 Test Item Value Reference Range Interpretation Comments UA Turbidity (test code = Clear (09/04/22 11:34 UA Turbidity) AM) [facility] AND [id number] 16:34:00 Test Item Value Reference Range Interpretation Comments UA Spec Grav (test code = UA Spec 1.004 1 Grav) [facility] AND [id number] 16:34:00 Test Item Value Reference Range Interpretation Comments UA pH (test code = UA pH) 6.0 1 5.0-8.0 [facility] AND [id number] 16:34:00 Test Item Value Reference Range Interpretation Comments UA Protein (test code Negative (09/04/22 11:34 = UA Protein) AM) [facility] AND [id number] 16:34:00 Test Item Value Reference Range Interpretation Comments UA Glucose (test code Negative *NA*(09/04/22 = UA Glucose) 11:34 AM) [facility] AND [id number] 16:34:00 Test Item Value Reference Range Interpretation Comments UA Ketones (test code Negative *NA*(09/04/22 = UA Ketones) 11:34 AM) [facility] AND [id number] 16:34:00 Test Item Value Reference Range Interpretation Comments UA Bili (test code = Negative *NA*(09/04/22 UA Bili) 11:34 AM) [facility] AND [id number] 16:34:00 Test Item Value Reference Range Interpretation Comments UA Blood (test code = Small *ABN*(09/04/22 UA Blood) 11:34 AM) [facility] AND [id number] 16:34:00 Test Item Value Reference Range Interpretation Comments UA Urobilinogen (test code = UA <=1.0 mg/dL 0.1-1.0 Urobilinogen) [facility] AND [id number] 16:34:00 Test Item Value Reference Range Interpretation Comments UA Nitrite (test code Negative (09/04/22 11:34 = UA Nitrite) AM) [facility] AND [id number] 16:34:00 Test Item Value Reference Range Interpretation Comments UA Leuk Est (test Negative (09/04/22 11:34 code = UA Leuk Est) AM) [facility] AND [id number] 16:34:00 Test Item Value Reference Range Interpretation Comments UA Ascorbic Acid (test Negative 3*NA*(09/04/22 code = UA Ascorbic 11:34 AM) Acid) [facility] AND [id number] 16:34:00 Test Item Value Reference Range Interpretation Comments UA Sq Epi (test code = UA Sq Occasional /LPF Epi) [facility] AND [id number] 16:34:00 Test Item Value Reference Range Interpretation Comments UA WBC (test code = no gt See_Comment [Automa fabi message] The UA WBC) system which ge nerated this result transmit fabi reference range : <=5. The reference range was not used to interpr et this result as bhavya l/abnormal. [facility] AND [id number] 16:34:00 Test Item Value Reference Range Interpretation Comments UA RBC (test code = 1 See_Comment [Automa fabi message] The UA RBC) system which ge nerated this result transmit fabi reference range : <=2. The reference range was not used to interpr et this result as bhavya l/abnormal. [facility] AND [id number] 16:34:00 Test Item Value Reference Range Interpretation Comments UA Bacteria (test code = UA Moderate /HPF Bacteria) [facility] AND [id number] 16:34:00 Test Item Value Reference Range Interpretation Comments UA Mucus (test code = UA Mucus) Few /[facility] Ag [Presence] in Respiratory specimen by Rapid [id number] 09:52:00 Test Item Value Reference Range Interpretation Comments SARS CoV 2 (test code = SARS CoV 2) negative [facility] - Urine 2022-03-27 09:31:00 Test Item Value Reference Range Interpretation Comments Nitrite (test code = negative Nitrite) Urobilinogen (test code = .2 Urobilinogen) Protein (test code = Negative Protein) pH (test code = pH) 5.0 Blood (test code = Blood) Non-Hemolyzed: Moderate Specific [place] (test 1.015 code = Specific [place]) Ketone (test code = Negative Ketone) Bilirubin [...] B) negative [facility] [id number] 13:24:00 Test Item Value Reference Range Interpretation Comments COVID 19 INHOUSE AG NEGATIVE Negative Per manu facturer, (test code = negative result s should [id number]) be treated aspr esumptive and, if inconsi [...] and symptoms co nsistent with COVID-19. PROTHROMBIN [id number] 12:35:00 Test Item Value Reference Range Interpretation [...] (to prevent recurrent infar ct). THROMBOPLASTIN TIME [id number] 12:35:00 Test Item Value Reference Range Interpretation Comments THROMBOPLASTIN TIME PARTIAL 32.1 SECONDS 26-35 N (test code = PTT) BASIC METABOLIC [id number] 11:27:00 Test Item Value Reference Range Interpretation [...] CA) 9.4 MG/DL 8.5-10.1 N CBC W/AUTO [id number] 11:16:00 Test Item Value Reference Range Interpretation [...] code NO DIFF/SCN CRITERIA = MDIFF) URINALYSIS [id number] 10:02:00 Test Item Value Reference Range Interpretation [...] Specimen Type: Clean Catch- XR CHEST 1 [id number] 09:57:00 [facility] 1955 Sex: F Name: BOZENA MARSH [facility] : 1955 Age/S: 66 / F [id number] Unit #: [id number] Loc: [place] [address] Phys: Gama Gabriel MD Acct: [id number] Dis Date: Status[place] [facility] [place] #: [phone] Exam Date: 12/27/2021 0957 FAX #: Reason: PREOP EXAMS: CPT: [id number] XR CHEST 1 V 52740 Fluoro Time: DAP (Gy m2): Air Kerma (mGy): EXAM: Portable chest x-ray, one view INDICATION: PREOP ADMITTING DIAGNOSIS: N81.6, rectocele LOCATION CODE: C3 COMPARISON: None TECHNIQUE: Single PortableAP upright view of the chest DISCUSSION: Catheter [...] MARSH : 1955 Age/S: 66 / F [id number] Unit #: [id number] Loc: [place] [address] Phys: Gama Gabriel MD Acct: [id number] Dis Date: Status: PRE SDC PHONE #: [phone] Exam Date: 12/27/2021956 FAX #: Reason: PREOP EXAMS: CPT: [id number] XR CHEST 1 V 66844 Fluoro Time: DAP (Gy m2): Air Kerma (mGy): (Continued) Technologist: Enedelia Salter RT(R) Trnscb Date/Time: 12/27/2021 (0957) [email or web address] Orig Print D/T: S: 12/27/2021 (1001) PAGE 2 Signed Report Urinalysis macro (dipstick) panel - [id number] 15:03:00 Test Item Value Reference Range Interpretation Comments Leukocytes (test code = Leukocytes) Small Nitrite (test code = Nitrite) negative Urobilinogen (test code = .2 Urobilinogen) Protein (test code = Protein) Trace pH (test code = pH) 7.0 Blood (test code = Blood) Moderate Specific [place] (test code = 1.015 Specific [place]) Ketone (test code = Ketone) Trace Bilirubin [...] Blood (test code = Blood) Moderate Specific [place] (test code = 1.015 Specific [place]) Ketone (test code = Ketone) Trace Bilirubin (test code = Bilirubin) Negative Glucose (test code = Glucose) Negative Appearance (test code = Appearance) Turbid Color (test code = Color) Yellow [facility], [id number] 14:56:00 Test Item Value Reference Range Interpretation Comments Strep (test code = Strep) negative [facility] strep group A, [id number] 14:56:00 Test Item Value Reference Range Interpretation Comments Strep (test code = Strep) negative [facility]-CoV-2 (COVID-19) Ag [Presence] in Respiratory specimen by Rapid [id number] 14:55:00 Test Item Value Reference Range Interpretation Comments SARS CoV 2 (test code = SARS CoV 2) negative [facility]-CoV-2 (COVID-19) Ag [Presence] in Respiratory specimen by Rapid [id number] 14:55:00 Test Item Value Reference Range Interpretation Comments SARS CoV 2 (test code = SARS CoV 2) negative [facility]: Quantitative Duodenal Aspirate 2021-10-14 14:43:00 Test Item Value Reference Range Interpretation Comments Culture: Quantitative No Growth , aerobic Duodenal Aspirate (test culture No Anaerobes code = Culture: Isolated After 2 Days Quantitative Duodenal Aspirate) [facility] urinalysis [id number] 19:36:00 Test Item Value Reference Range Interpretation Comments Color urine, POC (test Yellow code = 1434126) Clarity urine, POC (test Clear code = 8821399) Glucose urine, POC (test Negative Negative code = 2689802) Bilirubin urine, POC Negative Negative (test code = 1716424) Ketones urine, POC (test Negative Negative code = 4835442) Specific gravity urine, 1.005-1.030 POC (test code = 0990106) Blood urine, POC (test Trace Negative A code = 7764010) pH urine, POC (test code See_Comment [A utomated message] = 8965909) The system Easy[employer] generated this result transmitted ref erence range: 5.0, 5.5 , 6.0, 6.5, 7.0, 7.5, 8.0, 8.5. The refere nce range was not u sed to interpret this result as normal/abnor mal. Protein urine, POC (test Negative Negative code = 6205769) Urobilinogen urine, POC <2.0 See_Comment [Au tomated message] (test code = 4405131) The sy stem which generated this result transmitted ref erence range: <=2.0. T he reference range was not used to int erpret this result as normal/abnormal . Nitrite urine, POC (test Negative Negative code = 2452481) Leukocyte esterase Negative Negative urine, POC (test code = 5414599) Lab Interpretation (test Abnormal code = 99201-4) [facility] BLADDER SCAN/[id number] 19:36:00 Test Item Value Reference Range Interpretation Comments Volume (test code = 5874079) [facility] urinalysis [id number] 19:36:00 Test Item Value Reference Range Interpretation Comments Color urine, POC (test Yellow code = 9462336) Clarity urine, POC (test Clear code = 5913442) Glucose urine, POC (test Negative Negative code = 6639293) Bilirubin urine, POC Negative Negative (test code = 0499093) Ketones urine, POC (test Negative Negative code = 8764104) Specific gravity urine, 1.010 1.005-1.030 POC (test code = 3462910) Blood urine, POC (test Trace Negative A code = 4326028) pH urine, POC (test code 6.0 See_Comment [A utomated message] = 5868922) The system [employer] generated this result transmitted ref erence range: 5.0, 5.5 , 6.0, 6.5, 7.0, 7.5, 8.0, 8.5. The refere nce range was not u sed to interpret this result as normal/abnor mal. Protein urine, POC (test Negative Negative code = 3478575) Urobilinogen urine, POC <2.0 <=2.0 (test code = 7421394) Nitrite urine, POC (test Negative Negative code = 7322527) Leukocyte esterase Negative Negative urine, POC (test code = 7907010) Lab Interpretation (test Abnormal code = 67931-2) [facility] BLADDER SCAN/[id number] 19:36:00 Test Item Value Reference Range Interpretation Comments Volume (test code = 6470759) 28 [facility] urinalysis [id number] 19:36:00 Test Item Value Reference Range Interpretation Comments Color urine, POC (test Yellow code = 1262597) Clarity urine, POC (test Clear code = 2102861) Glucose urine, POC (test Negative Negative code = 2827570) Bilirubin urine, POC Negative Negative (test code = 0275801) Ketones urine, POC (test Negative Negative code = 2597627) Specific gravity urine, 1.010 1.005-1.030 POC (test code = 9077671) Blood urine, POC (test Trace Negative A code = 1104918) pH urine, POC (test code 6.0 See_Comment [A utomated message] = 8356331) The system [employer] generated this result transmitted ref erence range: 5.0, 5.5 , 6.0, 6.5, 7.0, 7.5, 8.0, 8.5. The refere nce range was not u sed to interpret this result as normal/abnor mal. Protein urine, POC (test Negative Negative code = 5522100) Urobilinogen urine, POC <2.0 <=2.0 (test code = 5465022) Nitrite urine, POC (test Negative Negative code = 3752046) Leukocyte esterase Negative Negative urine, POC (test code = 9538786) Lab Interpretation (test Abnormal code = 56354-9) [facility] BLADDER SCAN/[id number] 19:36:00 Test Item Value Reference Range Interpretation Comments Volume (test code = 9551374) 28 [facility] urinalysis [id number] 19:36:00 Test Item Value Reference Range Interpretation Comments Color urine, POC (test Yellow code = 4648176) Clarity urine, POC (test Clear code = 0329450) Glucose urine, POC (test Negative Negative code = 8028280) Bilirubin urine, POC Negative Negative (test code = 6518497) Ketones urine, POC (test Negative Negative code = 5051043) Specific gravity urine, 1.010 1.005-1.030 POC (test code = 8885528) Blood urine, POC (test Trace Negative A code = 4927750) pH urine, POC (test code 6.0 See_Comment [A utomated message] = 3971308) The system [employer] generated this result transmitted ref erence range: 5.0, 5.5 , 6.0, 6.5, 7.0, 7.5, 8.0, 8.5. The refere nce range was not u sed to interpret this result as normal/abnor mal. Protein urine, POC (test Negative Negative code = 8459825) Urobilinogen urine, POC <2.0 <=2.0 (test code = 3748040) Nitrite urine, POC (test Negative Negative code = 3694509) Leukocyte esterase Negative Negative urine, POC (test code = 1532945) Lab Interpretation (test Abnormal code = 53218-5) [facility] BLADDER SCAN/[id number] 19:36:00 Test Item Value Reference Range Interpretation Comments Volume (test code = 5080526) 28 [facility] urinalysis [id number] 19:36:00 Test Item Value Reference Range Interpretation Comments Color urine, POC (test Yellow code = 9171375) Clarity urine, POC (test Clear code = 4896256) Glucose urine, POC (test Negative Negative code = 4763864) Bilirubin urine, POC Negative Negative (test code = 3634810) Ketones urine, POC (test Negative Negative code = 4657441) Specific gravity urine, 1.010 1.005-1.030 POC (test code = 8655841) Blood urine, POC (test Trace Negative A code = 7745309) pH urine, POC (test code 6.0 See_Comment [A utomated message] = 6952277) The system Easy[employer] generated this result transmitted ref erence range: 5.0, 5.5 , 6.0, 6.5, 7.0, 7.5, 8.0, 8.5. The refere nce range was not u sed to interpret this result as normal/abnor mal. Protein urine, POC (test Negative Negative code = 1483057) Urobilinogen urine, POC <2.0 <=2.0 (test code = 5066032) Nitrite urine, POC (test Negative Negative code = 8148222) Leukocyte esterase Negative Negative urine, POC (test code = 2627707) Lab Interpretation (test Abnormal code = 47508-1) [facility] BLADDER SCAN/[id number] 19:36:00 Test Item Value Reference Range Interpretation Comments Volume (test code = 1983988) 28 [facility] urinalysis [id number] 19:36:00 Test Item Value Reference Range Interpretation Comments Color urine, POC (test Yellow code = 5100894) Clarity urine, POC (test Clear code = 0622385) Glucose urine, POC (test Negative Negative code = 5840185) Bilirubin urine, POC Negative Negative (test code = 3974555) Ketones urine, POC (test Negative Negative code = 3359265) Specific gravity urine, 1.005-1.030 POC (test code = 8910098) Blood urine, POC (test Trace Negative A code = 7623527) pH urine, POC (test code See_Comment [A utomated message] = 7182983) The system [employer] h generated this result transmitted ref erence range: 5.0, 5.5 , 6.0, 6.5, 7.0, 7.5, 8.0, 8.5. The refere nce range was not u sed to interpret this result as normal/abnor mal. Protein urine, POC (test Negative Negative code = 7245077) Urobilinogen urine, POC <2.0 See_Comment [Au tomated message] (test code = 9084469) The sy stem which generated this result transmitted ref erence range: <=2.0. T he reference range was not used to int erpret this result as normal/abnormal . Nitrite urine, POC (test Negative Negative code = 2161501) Leukocyte esterase Negative Negative urine, POC (test code = 2566050) Lab Interpretation (test Abnormal code = 15068-5) [facility] BLADDER SCAN/[id number] 19:36:00 Test Item Value Reference Range Interpretation Comments Volume (test code = 1779703) [facility] urinalysis [id number] 19:36:00 Test Item Value Reference Range Interpretation Comments Color urine, POC (test Yellow code = 8228182) Clarity urine, POC (test Clear code = 1368464) Glucose urine, POC (test Negative Negative code = 2689292) Bilirubin urine, POC Negative Negative (test code = 7610160) Ketones urine, POC (test Negative Negative code = 3925634) Specific gravity urine, 1.005-1.030 POC (test code = 5518761) Blood urine, POC (test Trace Negative A code = 7849139) pH urine, POC (test code See_Comment [A utomated message] = 2188651) The system Easy[employer]ve generated this result transmitted ref erence range: 5.0, 5.5 , 6.0, 6.5, 7.0, 7.5, 8.0, 8.5. The refere nce range was not u sed to interpret this result as normal/abnor mal. Protein urine, POC (test Negative Negative code = 0003161) Urobilinogen urine, POC <2.0 See_Comment [Au tomated message] (test code = 8743093) The sy stem which generated this result transmitted ref erence range: <=2.0. T he reference range was not used to int erpret this result as normal/abnormal . Nitrite urine, POC (test Negative Negative code = 9143471) Leukocyte esterase Negative Negative urine, POC (test code = 8855565) Lab Interpretation (test Abnormal code = 44096-7) [facility] BLADDER SCAN/[id number] 19:36:00 Test Item Value Reference Range Interpretation Comments Volume (test code = 1971724) [facility] urinalysis [id number] 19:36:00 Test Item Value Reference Range Interpretation Comments Color urine, POC (test Yellow code = 6649604) Clarity urine, POC (test Clear code = 4130537) Glucose urine, POC (test Negative Negative code = 2247609) Bilirubin urine, POC Negative Negative (test code = 1592157) Ketones urine, POC (test Negative Negative code = 5603947) Specific gravity urine, 1.005-1.030 POC (test code = 7536693) Blood urine, POC (test Trace Negative A code = 8374520) pH urine, POC (test code See_Comment [A utomated message] = 0949443) The system [employer] generated this result transmitted ref erence range: 5.0, 5.5 , 6.0, 6.5, 7.0, 7.5, 8.0, 8.5. The refere nce range was not u sed to interpret this result as normal/abnor mal. Protein urine, POC (test Negative Negative code = 4775466) Urobilinogen urine, POC <2.0 See_Comment [Au tomated message] (test code = 1910890) The sy stem which generated this result transmitted ref erence range: <=2.0. T he reference range was not used to int erpret this result as normal/abnormal . Nitrite urine, POC (test Negative Negative code = 8796305) Leukocyte esterase Negative Negative urine, POC (test code = 5098074) Lab Interpretation (test Abnormal code = 94258-9) [facility] BLADDER SCAN/[id number] 19:36:00 Test Item Value Reference Range Interpretation Comments Volume (test code = 9344774) [facility] urinalysis [id number] 19:36:00 Test Item Value Reference Range Interpretation Comments Color urine, POC (test Yellow code = 5254528) Clarity urine, POC (test Clear code = 0922296) Glucose urine, POC (test Negative Negative code = 8314183) Bilirubin urine, POC Negative Negative (test code = 8551304) Ketones urine, POC (test Negative Negative code = 0429153) Specific gravity urine, 1.005-1.030 POC (test code = 5569526) Blood urine, POC (test Trace Negative A code = 4465960) pH urine, POC (test code See_Comment [A utomated message] = 6360648) The system [employer] generated this result transmitted ref erence range: 5.0, 5.5 , 6.0, 6.5, 7.0, 7.5, 8.0, 8.5. The refere nce range was not u sed to interpret this result as normal/abnor mal. Protein urine, POC (test Negative Negative code = 1758263) Urobilinogen urine, POC <2.0 See_Comment [Au tomated message] (test code = 8468995) The sy stem which generated this result transmitted ref erence range: <=2.0. T he reference range was not used to int erpret this result as normal/abnormal . Nitrite urine, POC (test Negative Negative code = 5955146) Leukocyte esterase Negative Negative urine, POC (test code = 2989560) Lab Interpretation (test Abnormal code = 81805-2) [facility] BLADDER SCAN/[id number] 19:36:00 Test Item Value Reference Range Interpretation Comments Volume (test code = 4430046) [facility] urinalysis [id number] 19:36:00 Test Item Value Reference Range Interpretation Comments Color urine, POC (test Yellow code = 0501999) Clarity urine, POC (test Clear code = 9231636) Glucose urine, POC (test Negative Negative code = 9855999) Bilirubin urine, POC Negative Negative (test code = 3725803) Ketones urine, POC (test Negative Negative code = 6450969) Specific gravity urine, 1.005-1.030 POC (test code = 9004760) Blood urine, POC (test Trace Negative A code = 7471351) pH urine, POC (test code See_Comment [A utomated message] = 9426453) The system [employer] h generated this result transmitted ref erence range: 5.0, 5.5 , 6.0, 6.5, 7.0, 7.5, 8.0, 8.5. The refere nce range was not u sed to interpret this result as normal/abnor mal. Protein urine, POC (test Negative Negative code = 4619429) Urobilinogen urine, POC <2.0 See_Comment [Au tomated message] (test code = 2238047) The sy stem which generated this result transmitted ref erence range: <=2.0. T he reference range was not used to int erpret this result as normal/abnormal . Nitrite urine, POC (test Negative Negative code = 7068076) Leukocyte esterase Negative Negative urine, POC (test code = 9405117) Lab Interpretation (test Abnormal code = 16389-8) [facility] BLADDER SCAN/[id number] 19:36:00 Test Item Value Reference Range Interpretation Comments Volume (test code = 5559836) [facility] [id number] 00:00:00 Test Item Value Reference Range Interpretation Comments Bacteria identified in Urine by no growth Culture (test code = 630-4) [facility] by Culture 2021-07-24 00:00:00 Test Item Value Reference Range Interpretation Comments Bacteria identified in Urine by no growth Culture (test code = 630-4) [facility]icswritten [id number] 00:00:00 Test Item Value Reference Range Interpretation [...] (test code = Blood) Non-Hemolyzed: Trace Specific [place] (test 1.000 code = Specific [place]) Ketone (test code = Negative Ketone) Bilirubin [...] (test code = Blood) Non-Hemolyzed: Trace Specific [place] (test 1.000 code = Specific [place]) Ketone (test code = Negative Ketone) Bilirubin (test code = Negative Bilirubin) Glucose (test code = Negative Glucose) Appearance (test code = Clear Appearance) Color (test code = Color) Pale Yellow [facility] W Auto Differential panel - [id number] 00:00:00 Test Item Value Reference Range Interpretation [...] = 706-2) immature cells (test code = pediatric orthodontist immature cells) Neutrophils [#/volume] in Blood 3.7 [...] Blood by Automated count (test code = 83604-5) Immature granulocytes 0.0 x10e3/uL 0.0-0.1 [#/volume] in Blood by Automated count (test code = 34163-4) Nucleated erythrocytes/100 pediatric orthodontist leukocytes [Ratio] in Blood by Automated count (test code = 35460-7) Morphology [Interpretation] in pediatric orthodontist Blood Narrative (test code = 59814-4) [facility]Com[facility] 2000 panel - Serum or [id number] 00:00:00 Test Item Value Reference Range Interpretation [...] mg/dL 8.7-10.3 or Plasma (test code = 73069-5) Protein [Mass/volume] in Serum 6.5 g/dL 6.0-8.5 or Plasma (test code = 2885-2) Albumin [Mass/volume] in Serum 4.4 g/dL 3.8-4.8 or Plasma (test code = 1751-7) Globulin [Mass/volume] in 2.1 g/dL 1.5-4.5 Serum by calculation (test code = 80875-5) Albumin/Globulin [Mass Ratio] 2.1 1.2-2.2 in Serum [...] Serum or Plasma (test code = 1742-6) [facility] ClinicsThyrotropin [Units/volume] in Serum or Plasma by Detection limit <= 0.005 mIU/[id number] 00:00:00 Test Item Value Reference Range Interpretation Comments Thyrotropin [Units/volume] in 2.820 uIU/mL 0.450-4.500 Serum or Plasma by Detection limit <= 0.005 mIU/L (test code = 27535-9) [facility] HospitalThyroxine (T4) free [Mass/volume] in Serum or [id number] 00:00:00 Test Item Value Reference Range Interpretation Comments Thyroxine (T4) free [Mass/volume] 1.04 NG/dL 0.82-1.77 in Serum or Plasma (test code = 3024-7) [facility] Hospitalno test [id number] 00:00:00 Test Item Value Reference Range Interpretation Comments dear doctor, (test code = dear comment doctor,) [facility] HospitalLipid 1996 panel - Serum or [id number] 00:00:00 Test Item Value Reference Range Interpretation [...] or Plasma by calculation (test code = 84430-7) Cholesterol in LDL [Mass/volume] in 156 mg/dL 0-99 H Serum or Plasma by calculation (test code = 10346-4) Laboratory comment [Text] in Report pediatric orthodontist Narrative (test code = 20654-4) Cholesterol in LDL/Cholesterol in 3.0 ratio 0.0-3.2 HDL [Mass Ratio] in Serum or Plasma (test code = 49739-2) [facility] HospitalHelicobacter pylori IgA and IgG and IgM [Interpretation] in Serum or [id number] 00:00:00 Test Item Value Reference Range Interpretation Comments Helicobacter pylori IgG Ab 0.45 index value 0.00-0.79 [Units/volume] in Serum by Immunoassay (test code = 5176-3) Helicobacter pylori IgA Ab <9.0 0.0-8.9 [Units/volume] in Serum (test code = 7901-2) Helicobacter pylori IgM Ab <9.0 0.0-8.9 [Units/volume] in Serum (test code = 7903-8) [facility]icsFolate+Cyanocobalamin [Interpretation] in Serum or [id number] 00:00:00 Test Item Value Reference Range Interpretation Comments Cobalamin (Vitamin B12) 920 pg/mL 232-1245 [Mass/volume] in Serum or Plasma (test code = 2132-9) Folate [Mass/volume] in Serum or >20.0 >3.0 Plasma (test code = 2284-8) [facility]25-Hydroxyvitamin D3+25-Hydroxyvitamin D2 [Mass/volume] in Serum or [id number] 00:00:00 Test Item Value Reference Range Interpretation Comments 25-Hydroxyvitamin 36.5 NG/mL 30.0-100.0 D3+25-Hydroxyvitamin D2 [Mass/volume] in Serum or Plasma (test code = 73341-9) [facility] HospitalFerritin [Mass/volume] in Serum or [...] (test code = Blood) Hemolyzed: Trace Specific [place] (test code 1.015 = Specific [place]) Ketone (test code = Ketone) Negative Bilirubin (test code = Negative Bilirubin) Glucose (test code = Negative Glucose) [facility] (COVID-19) Ag [Presence] in Respiratory specimen by Rapid [id number] 16:26:00 Test Item Value Reference Range Interpretation Comments SARS CoV 2 (test code = SARS CoV 2) negative [facility]19[facility] Ag [Presence] in Respiratory specimen by Rapid bjqmtmwsnav0511-18-93 16:26:00 Test Item Value Reference Range Interpretation Comments SARS CoV 2 (test code = SARS CoV 2) negative [facility] (COVID-19) Ag [Presence] in Respiratory specimen by Rapid uvfqweoxcve0565-42-73 16:26:00 Test Item Value Reference Range Interpretation Comments SARS CoV 2 (test code = SARS CoV 2) negative [facility]-CoV-[facility] (COVID-19) Ag [Presence] in Respiratory specimen by Rapid ybvpcxvfkkf6308-87-59 16:26:00 Test Item Value Reference Range Interpretation Comments SARS CoV 2 (test code = SARS CoV 2) [facility] 16:10:00 Test Item Value Reference Range Interpretation Comments FLU A (test code = FLU A) negative FLU B (test code = FLU B) [facility] 16:10:00 Test Item Value Reference Range Interpretation Comments FLU A (test code = FLU A) negative FLU B (test code = FLU B) [facility]2021-02-25 16:10:00 Test Item Value Reference Range Interpretation Comments FLU A (test code = FLU A) negative FLU B (test code = FLU B) [facility]2021-02-25 16:10:00 Test Item Value Reference Range Interpretation Comments FLU A (test code = FLU A) negative FLU B (test code = FLU B) [facility], [id number] 16:09:00 Test Item Value Reference Range Interpretation Comments Strep (test code = Strep) positive [facility], dezuwq2343-84-68 16:09:00 Test Item Value Reference Range Interpretation Comments Strep (test code = Strep) positive [facility], zotmjr3795-73-66 16:09:00 Test Item Value Reference Range Interpretation Comments Strep (test code = Strep) positive [facility], hccmyo8986-33-69 16:09:00 Test Item Value Reference Range Interpretation Comments Strep (test code = Strep) positive [facility] [Presence] in Blood by Fqesfcugthy4899-71-93 15:33:00 Test Item Value Reference Range Interpretation Comments Avery (test code = Avery) negative [facility] HospitalHeterophile Ab [Presence] in Blood by Onfvwnztwvg3549-11-41 15:33:00 Test Item Value Reference Range Interpretation Comments Avery (test code = Avery) negative [facility] HospitalIron and Iron binding capacity panel - Serum or Hfdxhs1997-35-55 00:00:00 Test Item Value Reference Range Interpretation [...] [facility] HospitalFolate+Cyanocobalamin [Interpretation] in Serum or [id number] 00:00:00 Test Item Value Reference Range Interpretation [...] [facility] HospitalErythrocyte sedimentation rate by Westergren [id number] 00:00:00 Test Item Value Reference Range Interpretation Comments Erythrocyte sedimentation rate by 4 mm/HR 0-40 Westergren method (test code = 4537-7) [facility] HospitalMagnesium [Mass/volume] in Serum or Plasma 2020-07-27 00:00:00 Test Item Value Reference Range Interpretation Comments Magnesium [Mass/volume] in Serum or 2.2 mg/dL 1.6-2.3 Plasma (test code = 99601-8) [facility] HospitalIron and Iron binding capacity panel - Serum or [id number] 00:00:00 Test Item Value Reference Range Interpretation [...] [facility] HospitalFolate+Cyanocobalamin [Interpretation] in Serum or [id number] 00:00:00 Test Item Value Reference Range Interpretation [...] [facility] HospitalErythrocyte sedimentation rate by Westergren hdyrtg1238-66-90 00:00:00 Test Item Value Reference Range Interpretation Comments Erythrocyte sedimentation rate by 4 mm/HR 0-40 Westergren method (test code = 4537-7) [facility] HospitalMagnesium [Mass/volume] in Serum or Plasma 2020-07-27 00:00:00 Test Item Value Reference Range Interpretation Comments Magnesium [Mass/volume] in Serum or 2.2 mg/dL 1.6-2.3 Plasma (test code = 09538-4) [facility] HospitalURINE AND [id number] 23:55:00 Test Item Value Reference Range Interpretation Comments UA Color (test code = Light Yellow UA Color) *NA*(01/11/20 6:55 PM) [facility] AND [id number] 23:55:00 Test Item Value Reference Range Interpretation Comments UA Turbidity (test code = Clear (01/11/20 6:55 UA Turbidity) PM) [facility] [id number] 23:55:00 Test Item Value Reference Range Interpretation Comments UA Spec Grav (test code = UA Spec 1.005 1 Grav) [facility] [id number] 23:55:00 Test Item Value Reference Range Interpretation Comments UA pH (test code = UA pH) 7.0 1 5.0-8.0 [facility] [id number] 23:55:00 Test Item Value Reference Range Interpretation Comments UA Protein (test code Negative (01/11/20 6:55 = UA Protein) PM) [facility] [id number] 23:55:00 Test Item Value Reference Range Interpretation Comments UA Glucose (test code Negative *NA*(01/11/20 = UA Glucose) 6:55 PM) [facility] [id number] 23:55:00 Test Item Value Reference Range Interpretation Comments UA Ketones (test code Negative *NA*(01/11/20 = UA Ketones) 6:55 PM) [facility] [id number] 23:55:00 Test Item Value Reference Range Interpretation Comments UA Bili (test code = Negative *NA*(01/11/20 UA Bili) 6:55 PM) [facility] [id number] 23:55:00 Test Item Value Reference Range Interpretation Comments UA Blood (test code = Small *ABN*(01/11/20 UA Blood) 6:55 PM) [facility] [id number] 23:55:00 Test Item Value Reference Range Interpretation Comments UA Urobilinogen (test code = UA <=1.0 mg/dL 0.1-1.0 Urobilinogen) [facility] [id number] 23:55:00 Test Item Value Reference Range Interpretation Comments UA Nitrite (test code Negative (01/11/20 6:55 = UA Nitrite) PM) [facility] [id number] 23:55:00 Test Item Value Reference Range Interpretation Comments UA Leuk Est (test code Trace *ABN*(01/11/20 = UA Leuk Est) 6:55 PM) [facility] [id number] 23:55:00 Test Item Value Reference Range Interpretation Comments UA Sq Epi (test code = UA Sq Occasional /LPF Epi) [facility] [id number] 23:55:00 Test Item Value Reference Range Interpretation Comments UA WBC (test code = 5 See_Comment [Automa fabi message] The UA WBC) system which ge nerated this result transmit fabi reference range : <=5. The reference range was not used to interpr et this result as bhavya l/abnormal. [facility] [id number] 23:55:00 Test Item Value Reference Range Interpretation Comments UA RBC (test code = 1 See_Comment [Automa fabi message] The UA RBC) system which ge nerated this result transmit fabi reference range : <=2. The reference range was not used to interpr et this result as bhavya l/abnormal. [facility] AND [id number] 23:55:00 Test Item Value Reference Range Interpretation Comments UA Bacteria (test code = UA Occasional /HPF Bacteria) [facility] [id number] 23:40:00 Test Item Value Reference Range Interpretation Comments Troponin-I (test code no gt See_Comment [Auto mated message] The = Troponin-I) system which g enerated this result transmit fabi reference range : <=0.40. The reference r theron was not used to interpr et this result as bhavya l/abnormal. [facility] [id number] 23:40:00 Test Item Value Reference Range Interpretation Comments Glucose Lvl (test code = Glucose Lvl) 94 70-99 [facility] [id number] 23:40:00 Test Item Value Reference Range Interpretation Comments BUN (test code = BUN) 10 7-22 [facility] [id number] 23:40:00 Test Item Value Reference Range Interpretation Comments Creatinine Lvl (test code = Creatinine 0.93 0.50-1.40 Lvl) [facility] [id number] 23:40:00 Test Item Value Reference Range Interpretation Comments Sodium Lvl (test code = Sodium Lvl) 139 135-145 [facility] [id number] 23:40:00 Test Item Value Reference Range Interpretation Comments Potassium Lvl (test code = Potassium 3.6 3.5-5.1 Lvl) [facility] [id number] 23:40:00 Test Item Value Reference Range Interpretation Comments Chloride Lvl (test code = Chloride Lvl) 104 95-109 [facility] [id number] 23:40:00 Test Item Value Reference Range Interpretation Comments CO2 (test code = CO2) 28 24-32 [facility] [id number] 23:40:00 Test Item Value Reference Range Interpretation Comments Calcium Lvl (test code = Calcium Lvl) 9.4 8.5-10.5 [facility] [id number] 23:40:00 Test Item Value Reference Range Interpretation Comments Total Protein (test code = Total 7.2 6.4-8.4 Protein) [facility] [id number] 23:40:00 Test Item Value Reference Range Interpretation Comments Albumin Lvl (test code = Albumin Lvl) 3.7 3.5-5.0 [facility] [id number] 23:40:00 Test Item Value Reference Range Interpretation Comments ALT (test code = ALT) 28 See_Comment [Auto mated message] The system which ge nerated this result transmit fabi reference range : <=65. The reference range was not used to interpr et this result as bhavya l/abnormal. [facility] [id number] 23:40:00 Test Item Value Reference Range Interpretation Comments AST (test code = AST) 23 See_Comment [Auto mated message] The system which ge nerated this result transmit fabi reference range : <=37. The reference range was not used to interpr et this result as bhavya l/abnormal. [facility] [id number] 23:40:00 Test Item Value Reference Range Interpretation Comments Alk Phos (test code = Alk Phos) 78 39-136 [facility] [id number] 23:40:00 Test Item Value Reference Range Interpretation Comments Bili Total (test code = Bili Total) 1.1 0.2-1.3 [facility] [id number] 23:40:00 Test Item Value Reference Range Interpretation Comments AGAP (test code = AGAP) 10.6 10.0-20.0 [facility] [id number] 23:40:00 Test Item Value Reference Range Interpretation Comments B/C Ratio (test code = B/C Ratio) 11 1 6-25 [place] [address]-10-14 23:40:00 Test Item Value Reference Range Interpretation Comments Globulin (test code = Globulin) 3.5 2.7-4.2 [place] [address]-10-14 23:40:00 Test Item Value Reference Range Interpretation Comments A/G Ratio (test code = A/G Ratio) 1.1 1 0.7-1.6 [place] [address]-10-14 23:40:00 Test Item Value Reference Range Interpretation Comments eGFR (test code = eGFR) 66 [place] [address]-10-14 23:40:00 Test Item Value Reference Range Interpretation Comments Lipase Lvl (test code = Lipase Lvl) 139 73-393 [place] [address]-10-14 23:40:00 Test Item Value Reference Range Interpretation Comments Magnesium Lvl (test code = Magnesium 2.1 1.8-2.4 Lvl) [place] [address]-10-14 23:40:00 Test Item Value Reference Range Interpretation Comments WBC (test code = WBC) 8.8 3.7-10.4 [place] [address]-10-14 23:40:00 Test Item Value Reference Range Interpretation Comments RBC (test code = RBC) 5.09 4.20-5.40 [place] [address]-10-14 23:40:00 Test Item Value Reference Range Interpretation Comments Hgb (test code = Hgb) 15.6 12.0-16.0 [place] [address]-10-14 23:40:00 Test Item Value Reference Range Interpretation Comments Hct (test code = Hct) 45.2 36.0-48.0 [place] [address]-10-14 23:40:00 Test Item Value Reference Range Interpretation Comments MCV (test code = MCV) 88.8 80.0-98.0 [place] [address]-10-14 23:40:00 Test Item Value Reference Range Interpretation Comments MCH (test code = MCH) 30.7 pg 27.0-31.0 [place] [address]-10-14 23:40:00 Test Item Value Reference Range Interpretation Comments MCHC (test code = MCHC) 34.6 32.0-36.0 [facility] CenterTdomxbyCSZNOUTBEK6993-43-57 23:40:00 Test Item Value Reference Range Interpretation Comments RDW (test code = RDW) 13.6 11.5-14.5 [facility] CenterByzsrauGMVTVAHCXI9500-11-49 23:40:00 Test Item Value Reference Range Interpretation Comments Platelet (test code = Platelet) 192 133-450 [facility] CenterDighwbvGMHXFJORUA1073-76-37 23:40:00 Test Item Value Reference Range Interpretation Comments MPV (test code = MPV) 9.4 7.4-10.4 [place] 551410-10-14 23:40:00 Test Item Value Reference Range Interpretation Comments PT (test code = PT) 12.6 s 12.0-14.7 [facility] CenterSclzinbWSPRPCJNXA2906-53-27 23:40:00 Test Item Value Reference Range Interpretation Comments INR (test code = INR) 0.94 1 0.85-1.17 [facility] CenterHlewlxxSUABIBCATR2746-48-19 23:40:00 Test Item Value Reference Range Interpretation Comments PTT (test code = PTT) 23.7 s 22.9-35.8 [facility] CenterRbbryhwKUQDKAJOCX1223-76-40 23:40:00 Test Item Value Reference Range Interpretation Comments Segs (test code = Segs) 67.2 45.0-75.0 [facility] CenterCrtiyiiNSPPAJWIUM4508-58-91 23:40:00 Test Item Value Reference Range Interpretation Comments Lymphocytes (test code = Lymphocytes) 21.9 20.0-40.0 [facility] CenterJrezhmzWGEIORGWTM2442-34-31 23:40:00 Test Item Value Reference Range Interpretation Comments Monocytes (test code = Monocytes) 8.9 2.0-12.0 [place] [address]-10-14 23:40:00 Test Item Value Reference Range Interpretation Comments Eosinophils (test code = 1.2 See_Comment [A utomated message] The Eosinophils) system which ge nerated this result tra nsmitted reference range : <=4.0. The reference r theron was not used to int erpret this result as normal/abnormal . [facility] CenterLavcfvvMENJLQAKDE6756-95-32 23:40:00 Test Item Value Reference Range Interpretation Comments Basophils (test code = 0.8 See_Comment [Aut omated message] The Basophils) system which ge nerated this result tra nsmitted reference range : <=1.0. The reference r theron was not used to int erpret this result as normal/abnormal . [facility] CenterUlhuwdxCWYTDEFXSE1673-19-90 23:40:00 Test Item Value Reference Range Interpretation Comments Neutrophils # (test code = Neutrophils 5.9 1.5-8.1 #) [facility] CenterPvkdwonFHAUARGQYT3229-50-85 23:40:00 Test Item Value Reference Range Interpretation Comments Lymphocytes # (test code = Lymphocytes 1.9 1.0-5.5 #) [facility] CenterUdickvuNECECFVPLT2960-22-59 23:40:00 Test Item Value Reference Range Interpretation Comments Monocytes # (test code 0.8 See_Comment [Aut omated message] The = Monocytes #) system which generated this result tra nsmitted reference range : <=0.8. The reference r theron was not used to int erpret this result as normal/abnormal . [facility] CenterPticnonGMVEOGTTHK0113-35-98 23:40:00 Test Item Value Reference Range Interpretation Comments Eosinophils # (test code 0.1 See_Comment [A utomated message] The = Eosinophils #) system whic h generated this result tra nsmitted reference range : <=0.5. The reference r theron was not used to int erpret this result as normal/abnormal . [facility] CenterSkbipsrNTWDOULBIG4959-66-81 23:40:00 Test Item Value Reference Range Interpretation Comments Basophils # (test code 0.1 See_Comment [Aut omated message] The = Basophils #) system which generated this result tra nsmitted reference range : <=0.2. The reference r theron was not used to int erpret this result as normal/abnormal . [facility] CenterMxoytlkXXSI1486-59-31 11:22:00 RUN DATE: 01/01/18 [facility] - LAB *LIVE* PAGE 1 RUN TIME: 1122 Specimen Inquiry RUN USER: INTERFACE PATIENT: BOZENA MARSH LOC: EVA U #: [id number] AGE/SX: 62/F RO[facility]: [facility]12[facility]: Raz Gaspar III : 57 BED: DIS: [place] [facility] [place] SPEC #: [id number] RECD: 12/31/17 STATUS: HENRY DELGADO #: [id number] SHYANN: 12/31/[address] [facility] DR: Raz Gaspar III, MD ENTERED: 12/31/17 SP TYPE: SURG OTHR DR: No Primary or Family PhysicianORDERED: SURG PATH LVL 1, SURG PATH LVL 4 COPIES TO: No Primary [place] [id number] [facility] [address] [place] [address] HISTOLOGY: TISSUE ID BLK PCS ANAIS LEV PROCEDURE DISPOSITION ____ ___ ___ ___ NASAL TURBINATE A 1 1 NASAL SEPTUM, N B 1 1 PROCEDURES: SURG PATH LVL 1 (10/05/18-1104) SURG PATH LVL 4 (01/01/18-1104) TISSUES: A. NASAL TURBINATE, NOS - BILATERAL INFERIOR TURBINATES B. NASAL SEPTUM, NOS - SEPTUM CPT CODES CPT CODE(S): 50039 , 67234 , , , , , FINAL DIAGNOSIS A. Inferior turbinate, bilateral, endoscopic sinus surgery: SINUS CONTENTS CONSISTENT WITH CHRONIC SINUSITIS B. Nasal septum, septoplasty: BONE AND CARTILAGE(GROSS ONLY) GROSS DESCRIPTION A. Bilateral inferior turbinates. Received in formalin are irregular fragments of sauceda-brown soft tissue admixed with dark brown blood clots, 2.7 x 1.8 x 1.0 cm in aggregate. Marine Rigger sections submitted as A. B. Septum. Received in formalin are multiple irregular fragments of cartilage CONTINUED ON NEXT PAGE RUN DATE: 01/01/18 [facility] - LAB *LIVE* PAGE2 RUN TIME: 1122 Specimen Inquiry RUN USER: INTERFACE SPEC #: [id number] PATIENT: BOZENA MARSH #[id number] (Continued) GROSS DESCRIPTION (Continued) and bones, 5.0 x 3.5 x 0.7 cm in aggregate. The specimen is photographed for gross identification only. ba/nr Grossing performed at [facility] Pathology, [address], [address], [place], [place] [address]. [employer] Professor: Ralph Dash M.D. MICROSCOPIC DESCRIPTION A. Bilateral inferior turbinates. Fragments of respiratory epithelium lined mucosa. There are benign mucus glands and a chronic inflammatory infiltrate. Fragments of unremarkable cartilage and bone present. No evidence of malignancy. B. Septum. For gross identification only. /doug Signed SIGNATURE ON FILE Kel Chatterjee 01/01/18 1122 END OF REPORT CARDIAC [id number] 22:47:00 Test Item Value Reference Range Interpretation Comments Troponin-I (test code no gt See_Comment [Auto mated message] The = Troponin-I) system which g enerated this result transmit fabi reference range : <=0.40. The reference r theron was not used to interpr et this result as bhavya l/abnormal. [facility]annC[facility] [id number] 22:47:00 Test Item Value Reference Range Interpretation Comments CK MB (test code = CK MB) no gt 0.5-3.6 [facility] HospitalannCARDIAC [id number] 22:47:00 Test Item Value Reference Range Interpretation Comments Total CK (test code = Total CK) 54 12-191 [facility] HospitalannCARDIAC [id number] 22:47:00 Test Item Value Reference Range Interpretation Comments CK MB Index (test no gt See_Comment [Automate d message] The code = CK MB Index) system w [employer] generated this result transmit fabi reference range : <=2.5. The reference range was not used to interpr et this result as bhavya l/abnormal. [facility]2016-06-19 22:47:00 Test Item Value Reference Range Interpretation Comments Total Protein (test code = Total 7.0 6.4-8.4 Protein) [facility] HospitalZenMateATRIUM [id number] 22:47:00 Test Item Value Reference Range Interpretation Comments eGFR (test code = eGFR) 71 [facility]2016-06-19 22:47:00 Test Item Value Reference Range Interpretation Comments Globulin (test code = Globulin) 3.3 2.0-4.0 [facility] HospitalZenMateATRIUM [id number] 22:47:00 Test Item Value Reference Range Interpretation Comments A/G Ratio (test code = A/G Ratio) 1.1 0.7-1.6 [facility] HospitalZenMateATRIUM [id number] 22:47:00 Test Item Value Reference Range Interpretation Comments Bili Total (test code = Bili Total) 0.8 0.2-1.3 [facility] HospitalNanoCompound [id number] 22:47:00 Test Item Value Reference Range Interpretation Comments Alk Phos (test code = Alk Phos) 77 39-136 [facility]2016-06-19 22:47:00 Test Item Value Reference Range Interpretation Comments AGAP (test code = AGAP) 12.7 10.0-20.0 [facility] HospitalNanoComp[facility] [id number] 22:47:00 Test Item Value Reference Range Interpretation Comments B/C Ratio (test code = B/C Ratio) 18 6-25 [facility] HospitalNanoCompound [id number] 22:47:00 Test Item Value Reference Range Interpretation Comments Albumin Lvl (test code = Albumin Lvl) 3.7 3.5-5.0 [facility] CenterXylo, Inc [id number] 22:47:00 Test Item Value Reference Range Interpretation Comments ALT (test code = ALT) 24 See_Comment [Auto mated message] The system which ge nerated this result transmit fabi reference range : <=65. The reference range was not used to interpr et this result as bhavya l/abnormal. [facility]2016-06-19 22:47:00 Test Item Value Reference Range Interpretation Comments AST (test code = AST) 18 See_Comment [Auto mated message] The system which ge nerated this result transmit fabi reference range : <=37. The reference range was not used to interpr et this result as bhavya l/abnormal. [facility]2016-06-19 22:47:00 Test Item Value Reference Range Interpretation Comments Chloride Lvl (test code = Chloride Lvl) 108 95-109 [facility]2016-06-19 22:47:00 Test Item Value Reference Range Interpretation Comments Potassium Lvl (test code = Potassium 3.7 3.5-5.1 Lvl) [facility]2016-06-19 22:47:00 Test Item Value Reference Range Interpretation Comments CO2 (test code = CO2) 28 24-32 [facility]2016-06-19 22:47:00 Test Item Value Reference Range Interpretation Comments Calcium Lvl (test code = Calcium Lvl) 8.6 8.5-10.5 [facility]2016-06-19 22:47:00 Test Item Value Reference Range Interpretation Comments Sodium Lvl (test code = Sodium Lvl) 145 135-145 [facility]2016-06-19 22:47:00 Test Item Value Reference Range Interpretation Comments Creatinine Lvl (test code = Creatinine 0.90 0.50-1.40 Lvl) [facility]2016-06-19 22:47:00 Test Item Value Reference Range Interpretation Comments BUN (test code = BUN) 16 7-22 [facility]2016-06-19 22:47:00 Test Item Value Reference Range Interpretation Comments Glucose Lvl (test code = Glucose Lvl) 102 70-99 [facility] CenterUbuslqfNWSUSTJMEH5129-04-33 22:47:00 Test Item Value Reference Range Interpretation Comments WBC (test code = WBC) 8.8 3.7-10.4 [facility] CenterAwvltniGAFHLFYLTL3001-44-14 22:47:00 Test Item Value Reference Range Interpretation Comments RBC (test code = RBC) 5.39 4.20-5.40 [facility] CenterIbrtlypSFXQMNEJCY5084-95-89 22:47:00 Test Item Value Reference Range Interpretation Comments MCV (test code = MCV) 88.0 80.0-98.0 [facility] CenterYvfyalbWYGFFPMODU8622-97-89 22:47:00 Test Item Value Reference Range Interpretation Comments Hgb (test code = Hgb) 15.6 12.0-16.0 [facility] [id number] 22:47:00 Test Item Value Reference Range Interpretation Comments MCH (test code = MCH) 29.0 pg 27.0-31.0 [facility] CenterVqgtdmjMSBGMVXSBQ7993-02-71 22:47:00 Test Item Value Reference Range Interpretation Comments MPV (test code = MPV) 9.5 7.4-10.4 [facility] CenterQayoadtMNNLWCVMMY1933-25-56 22:47:00 Test Item Value Reference Range Interpretation Comments Platelet (test code = Platelet) 242 133-450 [facility] CenterNptsbykWPSXIRPIXQ4821-53-07 22:47:00 Test Item Value Reference Range Interpretation Comments MCHC (test code = MCHC) 33.0 32.0-36.0 [facility] CenterReqjvgfCMYOJWHFKB5749-21-54 22:47:00 Test Item Value Reference Range Interpretation Comments RDW (test code = RDW) 13.3 11.5-14.5 [facility] Cent[id number] 22:47:00 Test Item Value Reference Range Interpretation Comments Hct (test code = Hct) 47.5 36.0-48.0 [facility] CenterSuouyhyJQBRYGFMPV5507-17-71 22:47:00 Test Item Value Reference Range Interpretation Comments Basophils (test code = 0.5 See_Comment [Aut omated message] The Basophils) system which ge nerated this result tra nsmitted reference range : <=1.0. The reference r theron was not used to int erpret this result as normal/abnormal . [facility] CenterLvaxhhfNIXXNIWBYI1486-88-20 22:47:00 Test Item Value Reference Range Interpretation Comments Eosinophils (test code = 1.1 See_Comment [A utomated message] The Eosinophils) system which ge nerated this result tra nsmitted reference range : <=4.0. The reference r theron was not used to int erpret this result as normal/abnormal . [facility] CenterOblgqivSYREQWDASK5417-96-21 22:47:00 Test Item Value Reference Range Interpretation Comments Monocytes (test code = Monocytes) 6.3 2.0-12.0 [facility] CenterNxjqvxnQXSXLCAVRF3326-44-28 22:47:00 Test Item Value Reference Range Interpretation Comments Segs (test code = Segs) 54.0 45.0-75.0 [facility] CenterAodmipsNPPLHTKCVK8918-40-12 22:47:00 Test Item Value Reference Range Interpretation Comments Lymphocytes (test code = Lymphocytes) 38.1 20.0-40.0 [facility] Cent[id number] 22:47:00 Test Item Value Reference Range Interpretation Comments Basophils # (test code 0.0 See_Comment [Aut omated message] The = Basophils #) system which generated this result tra nsmitted reference range : <=0.2. The reference r theron was not used to int erpret this result as normal/abnormal . [facility] CenterN[id number] 22:47:00 Test Item Value Reference Range Interpretation Comments Eosinophils # (test code 0.1 See_Comment [A utomated message] The = Eosinophils #) system whic h generated this result tra nsmitted reference range : <=0.5. The reference r theron was not used to int erpret this result as normal/abnormal . [facility] CenterSghchknCJXXCXCTOY1169-87-05 22:47:00 Test Item Value Reference Range Interpretation Comments Monocytes # (test code 0.6 See_Comment [Aut omated message] The = Monocytes #) system which generated this result tra nsmitted reference range : <=0.8. The reference r theron was not used to int erpret this result as normal/abnormal . [facility] Cent[id number] 22:47:00 Test Item Value Reference Range Interpretation Comments Lymphocytes # (test code = Lymphocytes 3.4 1.0-5.5 #) [facility] CenterSqkptufRBBXGKNXTH4264-26-23 22:47:00 Test Item Value Reference Range Interpretation Comments Segs-Bands # (test code = Segs-Bands #) 4.7 1.5-8.1 [facility] AND [id number] 22:47:00 Test Item Value Reference Range Interpretation Comments UA Mucus (test code = None Seen (09/16/15 UA Mucus) 5:47 PM) [facility] AND [id number] 22:47:00 Test Item Value Reference Range Interpretation Comments UA Bacteria (test code = UA Occasional /HPF Bacteria) [facility] [id number] 22:47:00 Test Item Value Reference Range Interpretation Comments UA Nitrite (test code Negative (09/16/15 5:47 = UA Nitrite) PM) [facility] [id number] 22:47:00 Test Item Value Reference Range Interpretation Comments UA Glucose (test code Negative (09/16/15 5:47 = UA Glucose) PM) [facility] AND [id number] 22:47:00 Test Item Value Reference Range Interpretation Comments UA Sq Epi (test code = UA Sq Occasional /LPF Epi) [facility] AND [id number] 22:47:00 Test Item Value Reference Range Interpretation Comments UA WBC (test code = UA WBC) 0-2 /HPF [facility] AND [id number] 22:47:00 Test Item Value Reference Range Interpretation Comments UA RBC (test None Seen See_Comment [Automated mes nolan] code = UA RBC) (09/16/15 5:47 The system w [facility] PM) generated this result transmitted ref erence range: <=2. The reference range was not used to int erpret this result as normal/abnormal . [facility] AND [id number] 22:47:00 Test Item Value Reference Range Interpretation Comments Micro? (test code = Performed (09/16/15 5:47 Micro?) PM) [facility] AND [id number] 22:47:00 Test Item Value Reference Range Interpretation Comments UA Leuk Est (test Negative (09/16/15 5:47 code = UA Leuk Est) PM) [facility] AND [id number] 22:47:00 Test Item Value Reference Range Interpretation Comments UA Protein (test code Negative (09/16/15 5:47 = UA Protein) PM) [facility] [id number] 22:47:00 Test Item Value Reference Range Interpretation Comments UA pH (test code = UA pH) 6.0 1 5.0-8.0 [facility] [id number] 22:47:00 Test Item Value Reference Range Interpretation Comments UA Bili (test code = Negative *NA*(09/16/15 UA Bili) 5:47 PM) [facility] AND [id number] 22:47:00 Test Item Value Reference Range Interpretation Comments UA Ketones (test code Negative *NA*(09/16/15 = UA Ketones) 5:47 PM) [facility] [id number] 22:47:00 Test Item Value Reference Range Interpretation Comments UA Urobilinogen (test code = UA 0.2 0.1-1.0 Urobilinogen) [facility] AND [id number] 22:47:00 Test Item Value Reference Range Interpretation Comments UA Blood (test code = Trace *ABN*(09/16/15 UA Blood) 5:47 PM) [facility] AND [id number] 22:47:00 Test Item Value Reference Range Interpretation Comments UA Turbidity (test code = Clear (09/16/15 5:47 UA Turbidity) PM) [facility] AND [id number] 22:47:00 Test Item Value Reference Range Interpretation Comments UA Color (test code = Yellow *NA*(09/16/15 UA Color) 5:47 PM) [facility] AND [id number] 22:47:00 Test Item Value Reference Range Interpretation Comments UA Spec Grav (test code = UA Spec 1.025 1 Grav) [facility] AND [id number] 19:00:45 Test Item Value Reference Range Interpretation Comments UA Bacteria (test code = UA Occasional /HPF Bacteria) [facility] AND [id number] 19:00:45 Test Item Value Reference Range Interpretation Comments UA RBC (test code = 0-2 /HPF See_Comment [Automa fabi message] The UA RBC) system which ge nerated this result tra nsmitted reference range : <=2. The reference range was not used to interpr et this result as bhavya l/abnormal. [facility] AND [id number] 19:00:45 Test Item Value Reference Range Interpretation Comments UA Sq Epi (test code = UA Sq Epi) Few /LPF [facility] AND [id number] 19:00:45 Test Item Value Reference Range Interpretation Comments UA WBC (test code = UA WBC) 0-2 /HPF [facility] AND [id number] 19:00:45 Test Item Value Reference Range Interpretation Comments UA Bili (test code = Negative *NA*(11/30/13 UA Bili) 2:00 PM) [facility] AND [id number] 19:00:45 Test Item Value Reference Range Interpretation Comments UA Blood (test code = Trace *ABN*(11/30/13 UA Blood) 2:00 PM) [facility] AND [id number] 19:00:45 Test Item Value Reference Range Interpretation Comments UA Urobilinogen (test code = UA 0.2 0.1-1.0 Urobilinogen) [facility] AND [id number] 19:00:45 Test Item Value Reference Range Interpretation Comments UA pH (test code = UA pH) 6.0 1 5.0-8.0 [facility] AND [id number] 19:00:45 Test Item Value Reference Range Interpretation Comments UA Ketones (test code Negative *NA*(11/30/13 = UA Ketones) 2:00 PM) [facility] AND [id number] 19:00:45 Test Item Value Reference Range Interpretation Comments UA Protein (test code Negative (11/30/13 2:00 = UA Protein) PM) [facility] AND [id number] 19:00:45 Test Item Value Reference Range Interpretation Comments UA Glucose (test code Negative (11/30/13 2:00 = UA Glucose) PM) [facility] AND [id number] 19:00:45 Test Item Value Reference Range Interpretation Comments UA Turbidity (test code = Clear (11/30/13 2:00 UA Turbidity) PM) [facility] AND [id number] 19:00:45 Test Item Value Reference Range Interpretation Comments UA Spec Grav (test code = UA Spec 1.020 1 Grav) [facility] AND [id number] 19:00:45 Test Item Value Reference Range Interpretation Comments UA Color (test code = Yellow *NA*(11/30/13 2:00 UA Color) PM) [facility] AND [id number] 19:00:45 Test Item Value Reference Range Interpretation Comments UA Leuk Est (test Negative (11/30/13 2:00 code = UA Leuk Est) PM) [facility] AND [id number] 19:00:45 Test Item Value Reference Range Interpretation Comments UA Nitrite (test code Negative (11/30/13 2:00 = UA Nitrite) PM) [facility]2014-09-03 17:35:00 Test Item Value Reference Range Interpretation Comments B/C Ratio (test code = B/C Ratio) 16 6-25 [place] [id number] 17:35:00 Test Item Value Reference Range Interpretation Comments AGAP (test code = AGAP) 14.0 10.0-20.0 [facility]2014-09-03 17:35:00 Test Item Value Reference Range Interpretation Comments Globulin (test code = Globulin) 3.9 2.0-4.0 [facility]2014-09-03 17:35:00 Test Item Value Reference Range Interpretation Comments A/G Ratio (test code = A/G Ratio) 1.1 0.7-1.6 [facility]2014-09-03 17:35:00 Test Item Value Reference Range Interpretation Comments eGFR (test code = eGFR) 71 [facility]2014-09-03 17:35:00 Test Item Value Reference Range Interpretation Comments ALT (test code = ALT) 31 See_Comment [Auto mated message] The system which ge nerated this result transmit fabi reference range : <=65. The reference range was not used to interpr et this result as bhavya l/abnormal. [facility]2014-09-03 17:35:00 Test Item Value Reference Range Interpretation Comments AST (test code = AST) 25 See_Comment [Auto mated message] The system which ge nerated this result transmit fabi reference range : <=37. The reference range was not used to interpr et this result as bhavya l/abnormal. [facility]2014-09-03 17:35:00 Test Item Value Reference Range Interpretation Comments Alk Phos (test code = Alk Phos) 93 39-136 [facility]2014-09-03 17:35:00 Test Item Value Reference Range Interpretation Comments Bili Total (test code = Bili Total) 0.9 0.2-1.3 [place] [id number] 17:35:00 Test Item Value Reference Range Interpretation Comments Calcium Lvl (test code = Calcium Lvl) 9.5 8.5-10.5 [facility]2014-09-03 17:35:00 Test Item Value Reference Range Interpretation Comments Total Protein (test code = Total 8.0 6.4-8.4 Protein) [facility]2014-09-03 17:35:00 Test Item Value Reference Range Interpretation Comments Albumin Lvl (test code = Albumin Lvl) 4.1 3.5-5.0 [facility]2014-09-03 17:35:00 Test Item Value Reference Range Interpretation Comments CO2 (test code = CO2) 24 24-32 [facility]2014-09-03 17:35:00 Test Item Value Reference Range Interpretation Comments Chloride Lvl (test code = Chloride Lvl) 104 95-109 [facility]2014-09-03 17:35:00 Test Item Value Reference Range Interpretation Comments Creatinine Lvl (test code = Creatinine 0.9 0.5-1.4 Lvl) [facility]2014-09-03 17:35:00 Test Item Value Reference Range Interpretation Comments Sodium Lvl (test code = Sodium Lvl) 138 135-145 [facility]2014-09-03 17:35:00 Test Item Value Reference Range Interpretation Comments Potassium Lvl (test code = Potassium 4.0 3.5-5.1 Lvl) [facility]2014-09-03 17:35:00 Test Item Value Reference Range Interpretation Comments BUN (test code = BUN) 14 7-22 [facility]2014-09-03 17:35:00 Test Item Value Reference Range Interpretation Comments Glucose Lvl (test code = Glucose Lvl) 92 70-99 [facility]2014-09-03 17:35:00 Test Item Value Reference Range Interpretation Comments Lipase Lvl (test code = Lipase Lvl) 147 73-393 [facility]2014-09-03 17:35:00 Test Item Value Reference Range Interpretation Comments Amylase Lvl (test code = Amylase Lvl) 35 25-115 [facility] CenterMfpsdybZNYDVWKJNB6728-21-44 17:35:00 Test Item Value Reference Range Interpretation Comments MCHC (test code = MCHC) 34.0 32.0-36.0 [facility] CenterTxalpglVIXEQBGVNX6656-60-95 17:35:00 Test Item Value Reference Range Interpretation Comments RDW (test code = RDW) 12.7 11.5-14.5 [facility] CenterAsnmxdeCQJYETIRIX5786-02-14 17:35:00 Test Item Value Reference Range Interpretation Comments Platelet (test code = Platelet) 236 133-450 [facility] [id number] 17:35:00 Test Item Value Reference Range Interpretation Comments MPV (test code = MPV) 9.6 7.4-10.4 [facility] Cent[id number] 17:35:00 Test Item Value Reference Range Interpretation Comments Hgb (test code = Hgb) 16.9 12.0-16.0 [facility] [id number] 17:35:00 Test Item Value Reference Range Interpretation Comments WBC (test code = WBC) 7.1 3.7-10.4 [facility] CenterOgvrdlhAKTURZMPKF6895-47-35 17:35:00 Test Item Value Reference Range Interpretation Comments RBC (test code = RBC) 5.64 4.20-5.40 [facility] CenterGttklolWYHFPRETYR8595-07-99 17:35:00 Test Item Value Reference Range Interpretation Comments Hct (test code = Hct) 49.7 36.0-48.0 [facility] Cent[id number] 17:35:00 Test Item Value Reference Range Interpretation Comments MCH (test code = MCH) 29.9 pg 27.0-31.0 [facility] C[id number] 17:35:00 Test Item Value Reference Range Interpretation Comments MCV (test code = MCV) 88.0 80.0-98.0 [facility] Cent[id number] 17:35:00 Test Item Value Reference Range Interpretation Comments Eosinophils # (test code 0.0 See_Comment [A utomated message] The = Eosinophils #) system whic h generated this result tra nsmitted reference range : <=0.5. The reference r theron was not used to int erpret this result as normal/abnormal . [facility] Cent[id number] 17:35:00 Test Item Value Reference Range Interpretation Comments Segs-Bands # (test code = Segs-Bands #) 4.8 1.5-8.1 [facility] [id number] 17:35:00 Test Item Value Reference Range Interpretation Comments Monocytes # (test code 0.4 See_Comment [Aut omated message] The = Monocytes #) system which generated this result tra nsmitted reference range : <=0.8. The reference r theron was not used to int erpret this result as normal/abnormal . [facility] CenterLvbbpziJIRJWMHQDB2301-25-87 17:35:00 Test Item Value Reference Range Interpretation Comments Basophils (test code = 0.5 See_Comment [Aut omated message] The Basophils) system which ge nerated this result tra nsmitted reference range : <=1.0. The reference r theron was not used to int erpret this result as normal/abnormal . [facility] CenterWflayvcKMXIDOFHTT0182-98-79 17:35:00 Test Item Value Reference Range Interpretation Comments Basophils # (test code 0.0 See_Comment [Aut omated message] The = Basophils #) system which generated this result tra nsmitted reference range : <=0.2. The reference r theron was not used to int erpret this result as normal/abnormal . [facility] Cent[id number] 17:35:00 Test Item Value Reference Range Interpretation Comments Eosinophils (test code = 0.7 See_Comment [A utomated message] The Eosinophils) system which ge nerated this result tra nsmitted reference range : <=4.0. The reference r theron was not used to int erpret this result as normal/abnormal . [facility] CenterPgswrnlTGATJPDBKN5693-21-12 17:35:00 Test Item Value Reference Range Interpretation Comments Lymphocytes # (test code = Lymphocytes 1.8 1.0-5.5 #) [facility] CenterVyantgcOHBNPNFDQD5406-15-60 17:35:00 Test Item Value Reference Range Interpretation Comments Segs (test code = Segs) 67.7 45.0-75.0 [facility] CenterOfeeyzfFZVVKNFTJH1482-40-46 17:35:00 Test Item Value Reference Range Interpretation Comments Monocytes (test code = Monocytes) 5.7 2.0-12.0 [facility] CenterSvuzoftLONAOZQYZV3560-37-97 17:35:00 Test Item Value Reference Range Interpretation Comments Lymphocytes (test code = Lymphocytes) 25.4 20.0-40.0 [facility] CenterWzmbotmUPTZOZIZSJ2952-59-48 17:35:00 Test Item Value Reference Range Interpretation Comments CDC HIV 4th GEN (test Negative (9/3/14 12:35 code = CDC HIV 4th PM) GEN) Vandana Cevallos Notes Date/Time Note Provider Source 2022-09-04 EXAM: PAULETTE CastilloScarbro 12:28:26-00:00 Chest x-ray, 1 view(s). CLINICAL HX: - upper back pain. Age: 66 years. Gender: Female. TECHNIQUE: As above. Facility: [facility]. COMPARISON: Chest x-ray: 01/05/2018. FINDINGS: Support apparatus: None. Cardiac silhouette: Unremarkable. Mediastinum: -- Rena: Unremarkable. -- Other: None. Lungs: -- Consolidation: Negative. -- Pleural effusion: Negative. -- Pneumothorax: Negative. -- Other: Negative. Bones: Unremarkable. Other: None. IMPRESSION: 1. No acute cardiopulmonary process. 2021-12-30 [id number] [facility] 20:16:00-00:00 [facility] [address] [place] [address] PATIENT NAME: BOZENA MARSH ADMIT DATE: 2 ACCOUNT NO: [id number] ROOM NO: L.S216 AGE: 66 REPORT TYPE: OPERATIVE REPORT SEX: F ADMITTING PHYSICIAN: Elvia Arauz MD ATTENDING PHYSICIAN: Elvia Arauz MD OPERATION DATE: 12/30/2021 PREOPERATIVE DIAGNOSES: Posterior wall defect, s tage II, possible posterior enterocele. 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 PROCEDURE PERFORMED: Posterior wall repair, post erior enterocele repair and perineocele repair. SURGEON: Elvia Arauz MD RAIL SIGNAL WORKER: Parvez. ANESTHESIA: General. FINDINGS: POP-Q -2, -2, [...] when her daughter was present at the [facility]'s bedside. We reviewed all [...] PATIENT NAME: BOZENA MARSH 9207 Receipt ID: [id number] Authenticated by Elvia Arauz MD On 01/30 01:03:10 PM at 0103 PATIENT NAME: BOZENA MARSH 9207 2021-12-30 [facility] 18:11:00-00:00 [facility] ([facility]) Brief Op Note REPORT#:[id number] REPORT STATUS: Signed DATE:12/30/21 TIME:1810 PATIENT: BOZENA MARSH UNIT #: [id number] ROOM/BED: : 56 AGE: 66 SEX: F ATTEND: Sa nolan Aaruz MD ADM AUTHOR: Elvia Arauz MD * ALL edits or amendments must be made on the el [employer]/computer document * Op/Inv Proc Note - Brief Pre-procedure diagnosis: posterior wall defect stage 2 Post-procedure diagnosis: same as pre procedure dx, posterior enterocele, and perineocele Procedures performed: posterior wall , enterocele and perineocele repa irs Primary Surgeon: chad Polo Coach(s): Parvez Anesthesia: general anesthesia Findings: pop q -2/-2/-6/5/thin/7/0/+1/-4 Complications: none Estimated blood loss in ml's: 50 Specimens removed/altered: none Drain(s): Nunez Catheter Placed Fluids: 1200 Urine output: 50 Approach: vag Wound class: clean-contaminated Disposition: MEDSURG Counts: Sponge count: correct Instrument count: correct Needle count: correct Electronically Signed by Elvia Arauz MD o n 12/30/21 at 2004 RPT #: [id number] END OF REPORT 2021-12-27 [phone] [facility] 08:52:00-00:00 [facility] [address] [place] [address] PATIENT NAME: BOZENA MARSH ADMIT DATE: 2 ACCOUNT NO: [id number] ROOM NO: [id number].[id number] AGE: 66 REPORT TYPE: eELECTROCARDIOGRAM SEX: F ADMITTING PHYSICIAN: Elvia Arauz MD ATTENDING PHYSICIAN: Elvia Arauz MD Order: [id number] Test Reason : PRE OP Test Date/Time [...] wave abnormality Confirmed by MD Agustina, Beti ([id number]) on 9:48:10 AM Referred By: Elvia Arauz Confirmed by:Beti Berrios MD at 0948 PATIENT NAME: BOZENA MARSH 9207 2021-11-06 PROCEDURE INFORMATION: OPID K aty 14:45:00-00:00 Exam: MR Abdomen Without and [...] On 11/07/2021 10:13:32; [id number] 2020-01-11 EXAM: [facility] 19:32:43-00:00 CT abdomen and pelvis with contrast. [...] were used, per departmental dose-optimization program. Facility: [facility]. COMPARISON: CT abdomen: March 25, 2016. FINDINGS: [...] X-RAY. DATE: 01/05/2018 4:47 PM CDT JESSICA Scarbro 16:47:00-00:00 INDICATION: - J01.90 Acute sinusitis, unspecifie [...] PAULETTE Cody 10:54:30-00:00 DATE: 03/25/2016 10:52 AM [employer]PER[employer] INDICATION: R30.0 Dysuria, R 10.9 Unspecified abdominal [...] evidence of diverticuliti s. 2015-09-16 CLINICAL HISTORY:[place] [facility] 18:09:18-00:00 AGE: 59 years GENDER: [...] acute intracranial findings. 2015-09-16 CLINICAL HISTORY: [place]ope [facility] 17:59:39-00:00 AGE: 59 years GENDER: [...] AND PELVIS WITH CONTRAST, 02/24/20 15 OP[facility]bro 07:07:43-00:00 HISTORY: Left lower quadrant abdominal pain. [...] 2013-11-30 Gallbladder HIDA scan with ejection fraction. [facility] 16:19:43-00:00 HISTORY: Abdominal pain. Following the intravenous [...]
[2022-10-26] MEDS ORDERED: ONDANSETRON 4 MG/2 ML VIAL ONE (16:49)
[2022-10-26] MEDS ORDERED: FAMOTIDINE 20 MG/2 ML VIAL IV ONE (16:49)
[2022-10-26 16:57] LABS: Specific Gravity < 1.005 (1.005-1.030); Urine Bilirubin NEGATIVE (Negative); Urine Blood Negative (Negative); Urine Clarity Clear (Clear); Urine Color Colorless (Yellow); Urine Glucose NEGATIVE (Negative); Urine Protein NEGATIVE (Negative); Urine Urobilinogen Normal (Normal)
[2022-10-26 17:02] LABS: Hematocrit 48.1 % (36.0-45.0); Lymphocytes % 32.6 % (15.3-44.8); MCV 89.9 fL (80-100); MPV 9.8 fL (7.6-11.3); RBC Red Blood Cell Count 5.34 M/uL (3.86-4.86)
[2022-10-26 17:14] LABS: Albumin 3.8 g/dL (3.4-5.0); Bilirubin Total 0.7 mg/dL (0.2-1.0); Potassium 3.8 mEq/L (3.5-5.1)
--- NOTE | 2022-10-26 18:09 | RAD REPORT ---
EXAM DESCRIPTION: RAD - Chest Single View - 10/26/2022 6:02 pm CLINICAL HISTORY: mid back pain COMPARISON: Chest Single View dated 05/26/2022; Chest Single View dated 12/10/2021; Chest Single View dated 03/06/2021; Chest Single View dated 01/14/2021 FINDINGS: Lines: None. Lungs: No evidence of edema or pneumonia. Pleural: No significant pleural effusions or pneumothorax. Cardiac: The heart size is within normal limits. Mediastinum: Within normal limits. Bones: No acute fractures. Other: None IMPRESSION: No acute cardiopulmonary disease.
--- NOTE | 2022-10-26 20:20 | RAD REPORT ---
EXAM DESCRIPTION: CTAbdomen Pelvis W Contrast - 10/26/2022 7:30 pm CLINICAL HISTORY: mid back pain COMPARISON: Abdomen Pelvis W Contrast dated 02/19/2022; Abdomen Pelvis W Contrast dated TECHNIQUE: CT of the abdomen and pelvis was performed. All CT scans are performed using dose optimization technique as appropriate and may include automated exposure control or mA/KV adjustment according to patient size. FINDINGS: Lower chest: No acute abnormality. Liver: Several benign-appearing low-density liver lesions that are unchanged. Biliary: Cholecystectomy. Stomach: No significant focal abnormality. Duodenum: No significant focal abnormality. Pancreas: No significant abnormality. Spleen: No significant abnormality. Adrenal: No suspicious lesions. Kidney/ureter: No hydronephrosis. No renal calculi. Insert kidneys is Retroperitoneum: No retroperitoneal adenopathy. Vascular: No aneurysm. Bowel: No significant focal abnormality. No appendicitis. Peritoneum: No ascites or free air. Small fat containing inguinal hernias. Bladder: Grossly unremarkable. Reproductive: No adnexal masses. Bones: No acute fracture. Grade 1 anterolisthesis of L4 on L5. Other: n/a IMPRESSION: No acute intra-abdominal or pelvic finding.
--- NOTE | 2022-10-26 21:06 | ER ---
Nurse's Notes [facility] Name: Tracey Rodriguez Age: 67 yrs Sex: Female : 1955 Arrival Date: 10/26/2022 Time: 16:05 Bed 6 Private MD: Diagnosis: Dorsalgia, unspecified;Abdominal pain, unspecified Presentation: 10/26 16:17 Chief complaint: Patient states: upper back pain X 2 months. Pt states that the pain cm10 goes across her back and begins 1hr after eating. Pt also states that she has followed up with GI and they haven't found the cause. Coronavirus screen: Vaccine status: Patient reports being unvaccinated. Client denies travel out of the [place] in the last 14 days. At this time, the client does not indicate any symptoms associated with coronavirus-19. Ebola Screen: Patient denies travel to an Ebola-affected area in the 21 days before illness onset. No symptoms or risks identified at this time. Initial Sepsis Screen: Does the patient meet any 2 criteria? No. Patient's initial sepsis screen is negative. Does the patient have a suspected source of infection? No. Patient's initial sepsis screen is negative. Risk Assessment: Do you want to hurt yourself or someone else? Patient reports no desire to harm self or others. Onset of symptoms is unknown. 16:17 Method Of Arrival: Ambulatory cm10 16:17 Acuity: ANUJA 3 cm10 Triage Assessment: 16:21 General: Appears in no apparent distress. comfortable, Behavior is calm, cooperative. cm10 Pain: Complains of pain in left subscapular area and right subscapular area Pain currently is 6 out of 10 on a pain scale. Quality of pain is described as burning. Neuro: No deficits noted. Level of Consciousness is awake, alert, obeys commands, Oriented to person, place, time, situation. Respiratory: No deficits noted. Airway is patent Respiratory effort is even, unlabored, Respiratory pattern is regular, symmetrical. Musculoskeletal: Capillary refill < 3 seconds. Historical: - Allergies: 16:20 anti-inflammatory (all); cm10 16:20 Ciprofloxacin; cm10 16:20 fluoroquinolones; cm10 16:20 Levaquin; cm10 16:20 Sulfa (Sulfonamide Antibiotics); cm10 - PMHx: 16:20 Diverticulitis; Ulcer; cm10 - PSHx: 16:20 carpal tunnal repair; Colectomy; Ligation of fallopian tube; cm10 - Immunization history:: Adult Immunizations unknown. - Social history:: Smoking status: Patient denies any tobacco usage or history of. Screenin:[facility] ED Fall Risk Assessment (Adult) History of falling in the last 3 months, ll1 including since admission No falls in past 3 months (0 pts). Abuse screen: Denies threats or abuse. Denies injuries from another. Nutritional screening: No deficits noted. Tuberculosis screening: No symptoms or risk factors identified. Assessment: 16:54 General: Appears in no apparent distress. comfortable, Behavior is cooperative, ll1 appropriate for age, anxious. Pain: Complains of pain in back and abdomen Pain does not radiate. Pain currently is 8 out of 10 on a pain scale. Quality of pain is described as burning, Pain began 1 month. Neuro: Level of Consciousness is awake, alert, obeys commands, Oriented to person, place, time, situation. Cardiovascular: Capillary refill < 3 seconds Patient's skin is warm and dry. Respiratory: Airway is patent Respiratory effort is even, unlabored. GI: Abdomen is round non-distended, Reports upper abdominal pain. : No signs and/or symptoms were reported regarding the genitourinary system. EENT: No signs and/or symptoms were reported regarding the EENT system. Derm: No signs and/or symptoms reported regarding the dermatologic system. Musculoskeletal: No signs and/or symptoms reported regarding the musculoskeletal system. Vital Signs: 16:17 BP 137 / 92; Pulse 78; Resp 18; Temp 97.8; Pulse Ox 100% ; Weight 82.55 kg; Height 5 cm10 ft. 2 in. ; Pain 6/10; 16:54 BP 131 / 79; Pulse 82; Resp 18; Pulse Ox 100% on R/A; Pain 8/10; ll1 18:53 BP 127 / 76; Pulse 57; Resp 18; Pulse Ox 100% on R/A; ph 21:26 BP 120 / 72; Pulse 75; Resp 18; Pulse Ox 99% on R/A; kd3 16:17 Body Mass Index 33.29 (82.55 kg, 157.48 cm) cm10 16:17 Pain Scale: Adult cm10 16:54 Pain Scale: Adult ll1 ED Course: 16:08 Patient arrived in ED. rg4 16:16 Piter Muhammad PA is PHCP. cp 16:16 Dionicio Christensen DO is Attending Physician. cp 16:20 Triage completed. cm10 16:22 Arm band placed on Patient placed in an exam room, on a stretcher. cm10 16:30 Paulina Christensen, RN is Primary Nurse. ld1 16:53 Urinalysis w/ reflexes Sent. ll1 16:53 Lipase Sent. ll1 16:53 CMP Sent. ll1 16:53 CBC with Diff Sent. ll1 16:53 No provider procedures requiring assistance completed. Inserted saline lock: 20 gauge ll1 in right antecubital area, using aseptic technique. Blood collected. 16:54 Patient has correct armband on for positive identification. Placed in gown. Bed in low ll1 position. Call light in reach. Side rails up X2. clinical research monitor on. Pulse ox on. NIBP on. Door closed. Noise minimized. Warm blanket given. 18:03 XRAY Chest (1 view) In Process Unspecified. EDMS 19:32 CT Abd/Pelvis - PO and IV Contrast In Process Unspecified. EDMS 21:27 IV discontinued, intact, bleeding controlled, No redness/swelling at site. Pressure kd3 dressing applied. 21:28 Provided Education on: . kd3 Administered Medications: 16:53 Drug: Famotidine IVP 20 mg Route: IVP; Site: right antecubital; ll1 21:30 Follow up: Response: No adverse reaction kd3 16:53 Drug: Ondansetron IVP 4 mg Route: IVP; Site: right antecubital; ll1 21:30 Follow up: Response: No adverse reaction kd3 21:29 Drug: Dicyclomine IM 20 mg Route: IM; Site: right gluteus; kd3 21:30 Follow up: Response: No adverse reaction kd3 Medication: 16:54 VIS not applicable for this client. ll1 Outcome: 21:06 Discharge ordered by . cp 21:26 Discharged to home ambulatory. kd3 21:26 Condition: stable 21:26 Discharge instructions given to patient, family, Instructed on discharge instructions, follow up and referral plans. medication usage, Demonstrated understanding of instructions, follow-up care, medications, Prescriptions given X 1. 21:30 Patient left the ED. kd3 Signatures: Dispatcher [employer] EDMS Hallie Strange, RN RN Piter Malagon PA PA cp Garcia, Rubi rg4 Austin Mayfield RN RN ll1 Paulina Christensen RN RN ld1 Magui Stern RN RN kd3 Kelly Vazquez RN RN cm10
--- NOTE | 2022-10-26 21:06 | EDPHYS ---
Physician Documentation [facility] Name: Tracey Rodriguez Age: 67 yrs Sex: Female : 1955 Arrival Date: 10/26/2022 Time: 16:05 Bed 6 Private MD: ED Physician Dionicio Christensen HPI: 10/26 16:45 This 67 yrs old Female presents to ER via Ambulatory with complaints of Back Pain. cp 16:45 The patient presents with pain mid back. The symptoms are located in the left cp subscapular area, right subscapular area and mid back area. Onset: The symptoms/episode began/occurred 2 month(s) ago. The pain radiates to the upper abdomen. Associated signs and symptoms: Pertinent negatives: constipation, fever, hematuria, numbness, tingling, weakness. Modifying factors: the patient symptoms are aggravated by eating with pain started approximately 1 hr after eating. 16:45 Patient reports she has seen GI been evaluated and was told that there does not appear cp to be a GI cause of her pain. Patient has had a cholecystectomy in the past but is concerned because she correlates the pain after eating. Historical: - Allergies: 16:20 anti-inflammatory (all); cm10 16:20 Ciprofloxacin; cm10 16:20 fluoroquinolones; cm10 16:20 Levaquin; cm10 16:20 Sulfa (Sulfonamide Antibiotics); cm10 - PMHx: 16:20 Diverticulitis; Ulcer; cm10 - PSHx: 16:20 carpal tunnal repair; Colectomy; Ligation of fallopian tube; cm10 - Immunization history:: Adult Immunizations unknown. - Social history:: Smoking status: Patient denies any tobacco usage or history of. ROS: 16:50 Constitutional: Negative for body aches, chills, fever, poor PO intake. cp 16:50 Eyes: Negative for injury, pain, redness, and discharge. cp 16:50 ENT: Negative for drainage from ear(s), ear pain, sore throat, difficulty swallowing, difficulty handling secretions. 16:50 Cardiovascular: Negative for chest pain, edema, palpitations. 16:50 Respiratory: Negative for cough, shortness of breath, wheezing. 16:50 Abdomen/GI: Positive for abdominal pain, Negative for vomiting, diarrhea, constipation, anorexia, dysphagia, black/tarry stool, rectal bleeding. 16:50 Back: Positive for pain at rest, pain with movement. 16:50 : Negative for urinary symptoms. 16:50 Neuro: Negative for altered mental status, dizziness, headache, syncope, weakness. 16:50 All other systems are negative. Exam: 16:55 Constitutional: The patient appears in no acute distress, alert, awake, cp non-diaphoretic, non-toxic, well developed, well nourished. 16:55 Head/Face: Normocephalic, atraumatic. cp 16:55 Eyes: Periorbital structures: appear normal, Conjunctiva: normal, no exudate, no injection, Sclera: no appreciated abnormality, Lids and lashes: appear normal, bilaterally. 16:55 ENT: External ear(s): are unremarkable, Nose: is normal, Mouth: Lips: moist, Oral mucosa: pink and intact, moist, Posterior pharynx: is normal, airway is patent, no erythema, no exudate. 16:55 Neck: ROM/movement: is normal, is supple, without pain, no range of motions limitations, no meningismus, no nuchal rigidity. 16:55 Chest/axilla: Inspection: normal. 16:55 Cardiovascular: Rate: normal, Rhythm: regular, Edema: is not appreciated, JVD: is not appreciated. 16:55 Respiratory: the patient does not display signs of respiratory distress, Respirations: normal, no use of accessory muscles, no retractions, labored breathing, is not present, Breath sounds: are clear throughout, no decreased breath sounds, no stridor, no wheezing. 16:55 Abdomen/GI: Inspection: abdomen appears normal, Bowel sounds: active, all quadrants, Palpation: soft, in all quadrants, mild abdominal tenderness, in the right upper quadrant and left upper quadrant, rebound tenderness, is not appreciated, involuntary guarding, is not appreciated. 16:55 Back: pain, that is mild, of the left subscapular area, right subscapular area and mid back area, ROM is normal. 16:55 Skin: no rash present. 16:55 Neuro: Orientation: to person, place \T\ time. Mentation: is normal, Motor: moves all fours, strength is normal, Sensation: is normal. Vital Signs: 16:17 BP 137 / 92; Pulse 78; Resp 18; Temp 97.8; Pulse Ox 100% ; Weight 82.55 kg; Height 5 cm10 ft. 2 in. ; Pain 6/10; 16:54 BP 131 / 79; Pulse 82; Resp 18; Pulse Ox 100% on R/A; Pain 8/10; ll1 18:53 BP 127 / 76; Pulse 57; Resp 18; Pulse Ox 100% on R/A; ph 21:26 BP 120 / 72; Pulse 75; Resp 18; Pulse Ox 99% on R/A; kd3 16:17 Body Mass Index 33.29 (82.55 kg, 157.48 cm) cm10 16:17 Pain Scale: Adult cm10 16:54 Pain Scale: Adult ll1 MDM: 16:27 Patient medically screened. 17:00 Differential diagnosis: Pyelonephritis Ureterolithiasis choledocholithiasis. 21:05 Data reviewed: vital signs, nurses notes, lab test result(s), radiologic studies, CT cp scan. 21:05 I considered the following discharge prescriptions or medication management in the emergency department Medications were administered in the Emergency Department. See MAR. 21:05 Counseling: I had a detailed discussion with the patient and/or guardian regarding: the historical points, exam findings, and any diagnostic results supporting the discharge/admit diagnosis, lab results, radiology results, to return to the emergency department if symptoms worsen or persist or if there are any questions or concerns that arise at home. Response to treatment: the patient's symptoms have mildly improved after treatment, and as a result, I will discharge patient. Special discussion: Based on the patient's Hx, exam, and Dx evaluation, there is no indication for emergent surgery or inpatient Tx. It is understood by the patient/guardian that if the Sx's persist or worsen they need to return immediately for re-evaluation. 10/26 16:38 Order name: CBC with Diff; Complete Time: 17:23 10/26 17:23 Interpretation: Normal except: RBC 5.34; HGB 16.0; HCT 48.1. 10/26 16:38 Order name: CMP; Complete Time: 17:23 cp 10/26 17:23 Interpretation: Normal except: BUN 6; GFR 69. 10/26 16:38 Order name: Lipase; Complete Time: 17:23 10/26 16:38 Order name: Urinalysis w/ reflexes; Complete Time: 17:23 cp 10/26 20:36 Interpretation: Reviewed. cp 10/26 16:38 Order name: XRAY Chest (1 view); Complete Time: 20:35 cp 10/26 20:35 Interpretation: Report review. cp 10/26 16:53 Order name: CT Abd/Pelvis - PO and IV Contrast; Complete Time: 20:35 cp 10/26 20:36 Interpretation: Report reviewed. cp 10/26 16:38 Order name: IV Saline Lock; Complete Time: 16:53 cp 10/26 16:38 Order name: Labs collected and sent; Complete Time: 16:53 cp Administered Medications: 16:53 Drug: Famotidine IVP 20 mg Route: IVP; Site: right antecubital; ll1 21:30 Follow up: Response: No adverse reaction kd3 16:53 Drug: Ondansetron IVP 4 mg Route: IVP; Site: right antecubital; ll1 21:30 Follow up: Response: No adverse reaction kd3 21:29 Drug: Dicyclomine IM 20 mg Route: IM; Site: right gluteus; kd3 21:30 Follow up: Response: No adverse reaction kd3 Disposition Summary: 10/26/22 21:06 Discharge Ordered Location: Home cp Problem: an ongoing problem cp Symptoms: have improved cp Condition: Stable cp Diagnosis - Dorsalgia, unspecified cp - Abdominal pain, unspecified cp Followup: cp - With: Private Physician - When: 1 week - Reason: Recheck today's complaints Discharge Instructions: - Discharge Summary Sheet cp - Abdominal Pain, Adult cp - Chronic Pain, Adult cp Forms: - Medication Reconciliation Form cp - Thank You Letter cp - Antibiotic Education cp - Prescription Opioid Use cp - Patient Portal Instructions cp Prescriptions: - dicyclomine 20 mg Oral Tablet - take 1 tablet by ORAL route 4 times per day; 30 tablet; Refills: 0, Product cp Selection Permitted Signatures: Dispatcher [employer] EDPiter Mccarty PA PA cp Austin Mayfield RN RN ll1 Magui Stern RN RN kd3 Kelly Vazquez RN RN cm10 Corrections: (The following items were deleted from the chart) 10/27 20:13 10/26 16:45 Onset: The symptoms/episode began/occurred 2-3 months ago, cp cp 10/27 20:13 10/26 16:45 Modifying factors: the patient symptoms are aggravated by eating cp cp
[2022-10-26] MEDS ORDERED: DICYCLOMINE HCL 20 MG/2 ML AMP IM ONE (21:21)
[2022-10-26 21:34] VITALS: TEMP 97.8
[2022-10-26 21:39] VITALS: BP 120/72; O2SAT 99
== END 2022-10-26 21:30 | disposition home or self-care (01) ==
LOC: ER 16:05
DX: M54.9 Dorsalgia, unspecified (principal); R10.9 Unspecified abdominal pain; Z88.1 Allergy status to other antibiotic agents; Z88.2 Allergy status to sulfonamides; Z88.6 Allergy status to analgesic agent
CPT/HCPCS: 85025; 36415; 81003; 83690; 80053; 74177; 71045; Q9967; J0500; J2405; 96372; 96374; 96375; 99285

== ENCOUNTER 2023-01-11 08:45 | Emergency (ER) | payer OTHER ==
--- OUTSIDE RECORDS SUMMARY | 2023-01-11 08:56 | XMS REPORT | Continuity of Care Document ---
:1955 Author Organization [facility] t Address [address] [place] [address] Care Team Providers Name Role Phone Radha Cadet Primary Care Physician LUCIEN SHANNON Attending Clinician Unavailable LUCIEN SHANNON Attending Clinician Unavailable CHRETIEN_F Attending Clinician Unavailable JOSE M RODRIGUEZ Attending Clinician Unavailable PAULO BARAHONA Attending Clinician Unavailable [email or web address]_S Attending Clinician Unavailable Doctor Unassigned, [place] Attending Clinician Unavailable SHEA HILL Attending Clinician Unavailable JULIA BARBOZA Attending Clinician Unavailable MATTHEW NAGY OM Attending Clinician Unavailable MATTHEW NAGY Attending Clinician Unavailable ARUN GARCIA Attending Clinician Unavailable SISSON_Newton Attending Clinician Unavailable Emily Vazquez MD Attending Clinician [phone] Elvia Arauz Attending Clinician Unavailable Willy Lopez Attending Clinician [phone] Emily Longoria Attending Clinician [phone] Kaitlin Block Attending Clinician [phone] JONATHAN Attending Clinician Unavailable FRANCISCO_Nolan Attending Clinician Unavailable Provider , Not In System Attending Clinician Unavailable Ginna Lord MA Attending Clinician Unavailable Roula Finn Attending Clinician [phone] SHIELA RASMUSSEN Attending Clinician Unavailable NICHELLE ALANIS Attending Clinician Unavailable CHRETIEN_F Admitting Clinician Unavailable [email or web address]_S Admitting Clinician Unavailable SISFABIOLA_Newton Admitting Clinician Unavailable Elvia Arauz Admitting Clinician Unavailable JONATHAN Admitting Clinician Unavailable WATERS_S Admitting Clinician Unavailable Payers Payer Name Policy Type Policy Number Effective Date Expiration Date S giselle AETNA CHOICE POS II [id number] 2002 2002 00:00:00 00:00:00 AETNA (MEDICARE [id number] 2022 REPLACEMENT PPO) 00:00:00 [place]: [id number] 2021 [place]utch 00:00:00 AETNA MEDICARE PPO [id number] 2022 00:00:00 [place]: [id number] 2021 [employer]utch - 00:00:00 [facility] AETNA (INDEMNITY) [id number] 2002 00:00:00 MEDICARE B[place]: [id number] 2021 [employer] 00:00:00 MEDICARE PART A AND [id number] 2021 B 00:00:00 AETNA (POS) [id number] 2020 00:00:00 Problems Condition Condition Condition Status Onset Resolution Last Treating Co mments Source Name Details Category Date Date Treatment Clinician Date Pain in Pain in Problem Active 2022-03 [place] throat Throat 0-11 Communi 00:00: ty 00 [facility] Nausea Nausea Problem Active 2022-03 [place] 0-11 Communi 00:00: ty 00 [facility] Pruritic Pruritic Problem Active [place] disorder Disorder 9-05 Commun i 00:00: ty 00 [facility] Low back Low Back Problem Active [place] pain Pain 8-14 Communi 00:00: ty 00 [facility] Pain of Pain of Problem Active [place] left Left 8-14 Communi shoulder Shoulder 00:00: ty joint Joint 00 [facility] Cellulitis Cellulitis Problem Active S weeny of finger of Finger 7-24 Comm uni of left of Left 00:00: ty hand Hand 00 [facility] Dysuria Dysuria Problem Active [place] 6-15 Communi 00:00: ty 00 [facility] FLANK PAIN FLANK Diagnosis Active 2022-09-23 Memoria W/N.V.D PAIN 6-08 09:24:00 l W/N.V.D 00:00: [place] Active 00 09/04/2022 [facility] Gastroesop Gastroesop Problem Active S weeny hageal hageal 6-05 Communi reflux Reflux 00:00: ty disease Disease 00 [facility] Thoracic Thoracic Problem Active [place] back pain Back Pain 6-05 Comm uni 00:00: ty 00 [facility] Diarrhea Diarrhea Problem Active Sween y 6-05 Communi 00:00: ty 00 [facility] Abdominal Abdominal Problem Active Swe venkat pain Pain 6-05 Communi 00:00: ty [facility] Herpes Herpes Problem Active [place] zoster Zoster 5-16 Communi 00:00: ty 00 [...] l Clinics Acute Acute Problem Active 2021-03 [place] upper Upper 2-29 Communi respirator Respirator 00:00: ty y y Hospita infection Infection l Clinics Nasal Nasal Problem Active 2021-03 [place] congestion Congestion 2-29 Co mmuni 00:00: ty 00 [facility] Cough Cough Problem Active 2021-03 [place] 2-29 Communi 00:00: ty [facility] Anxiety Anxiety Problem Active 2021-03 [place] 1-28 Communi 00:00: ty 00 [facility] 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 [place] memory Memory 1-28 Communi disturbanc Disturbanc 00:00: ty e e 00 [facility] Allergic Allergic Problem Active 2021-03 [place] rhinitis Rhinitis 1-28 Commun i 00:00: ty 00 [facility] Dizziness Dizziness Problem Active 2021-03 Swe venkat 1-28 Communi 00:00: ty 00 [facility] Contact Contact Problem Active [place] dermatitis Dermatitis 8-12 Co mmuni 00:00: ty 00 [facility] Pruritic Pruritic Problem Active [place] rash Rash 8-12 Communi 00:00: ty 00 [facility] Ganglion Ganglion Problem Active [place] cyst of Cyst of 8-12 Communi left hand Left Hand 00:00: ty 00 [facility] Depressive Depressive Problem Active S weeny disorder Disorder 7-25 Commun i 00:00: ty 00 [facility] Conjunctiv Conjunctiv Problem Active S weeny itis itis 7- Communi 00:00: ty 00 [facility] Acute Acute Problem Active [place] sinusitis Sinusitis 10-21 Comm uni 00:00: ty 00 [facility] Urinary Urinary Problem Active [place] tract Tract 10-21 Communi infectious Infectious 00:00: ty disease Disease 00 [facility] RECURRENT RECURRENT Diagnosis Active 2021-10-16 Memoria DIVERTICUL DIVERTICUL 10-02 10:26:00 l ITIS, ITIS, 00:00: [place] DIARRHEA, DIARRHEA, 00 ABDO ABDO Active 10/02/2021 [facility] DIVERTICUL DIVERTICU Diagnosis Active 2020-032021-04-05 Memoria ITIS LITIS 2-16 10:15:00 l Active 00:00: [place] 03/14/2021 [facility] Diverticul Diverticul Problem Active S weeny itis itis 07-26 Communi 00:00: ty 00 [facility] NUMBNESS/ NUMBNESS/ Diagnosis Active 2020-07-23 [facility] LETHARGIC LETHARGIC 07-23 18:37:00 l Active 08:00: [place] 07/23/2020 [facility] Diagnosis Active 2019-032020-03-09 [place] VISIT- ABD VISIT- ABD 05-09 11:18:00 l PAIN PAIN 00:00: Mart Active 03/08/2020 [facility] ABD PAIN ABD PAIN Diagnosis Active 2019-032020-01-11 Memoria Active 0 18:59:00 l 01/11/2020 00:00: José Miguel samaniego [place] [address] [place] F/U AND F/U AND Diagnosis Active 2018-07-28 Memoria 2ND 2ND 07-20 14:19:00 l OPINION OPINION 00:00: [place] Active 00 07/20/2018 [facility] KNEE PAIN KNEE PAIN Diagnosis Active 2017-06-06 Memoria Active 06-05 08:32:00 l 06/05/2017 00:00: José Miguel samaniego [facility] 00 [place] BDDC-NAUSE BDDC-NAUS Diagnosis Active 2016-12-07 KATHERINE Urbina EA, EARLY 10-30 15:15:00 l SATIETY SATIETY 00:00: [place] Active 00 10/30/2016 [facility] STOMACH STOMACH Diagnosis Active 2015-032016-03-17 Memoria PAIN PAIN 04-27 13:47:00 l Active 00:00: [place] 02/26/2016 00 [facility] WEAKNES WEAKNES Diagnosis Active 2015-09-16 Memoria AND BLURY AND BLURY 09-15 17:12:00 l VISION VISION 00:00: [place] Active 00 09/16/2015 [facility] BDDC/ BDDC/ Diagnosis Active 2014-032015-04-30 Mem oria Z12.11 Z12.11 2-16 11:17:00 l SCREENING SCREENING 00:00: Herm rut FOR FOR 00 MALIGNANT MALIGNANT ALICIA ALICIA Active 5 [facility] BDDC - NEW BDDC - Diagnosis Active 2014-032015-03-14 Memoria PT CONSULT NEW PT 05-15 14:16:00 l CONSULT 00:00: [place] Active 00 03/14/2015 [facility] PAIN IN PAIN IN Diagnosis Active 2014-032015-04-21 Memoria THE THE 05-06 15:39:00 l ABDOMEN; ABDOMEN; 00:00: José Miguel n UPPER AND UPPER AND 00 LOWER STO LOWER STO Active 03/05/2015 [facility] Screening Screening Problem Active 2021-11-09 Memoria mammograph mammograph 08-23 01:25:28 l y y 00:00: Mart (procedure (procedure 00 ) ) Active 08/23/2014 Problem 11/09/2021 Data migrated from [employer] on 10/04/14. Medical Group,[facility], Ryan Sparks, OPID Price, JESSICA Cody,M H Price Vitamin D Vitamin D Problem Active 2021-11-09 Memoria deficiency deficiency 08-23 01:25:28 l (disorder) (disorder) 00:00: He rmann Active 00 08/23/2014 Problem 11/09/2021 Data migrated from [employer] on 10/04/14. [facility], Ryan Sparks, OPID Price, JESSICA Cody,M H Price Gastritis Gastritis Problem Active 2021-11-09 Memoria (disorder) (disorder) 08-22 01:25:28 l Active 00:00: [place] 08/22/2014 00 Problem 11/09/2021 Data migrated from [employer] on 10/04/14. [facility], [place],Ryan H OPID Radha, OPID Price, OPID Escobar,M H Price Multiple Multiple Problem Active 2021-11-09 Memoria joint pain joint pain 08-22 01:25:28 l (finding) (finding) 00:00: Herm rut Active 08/22/2014 Problem 11/09/2021 Data migrated from [employer] on 10/04/14. [facility], [place],M H OPID Radha, OPID Price, SUGARD Cody,M H Price Muscle Muscle Problem Active 2021-11-09 Marvel fauzia pain pain 08-22 01:25:28 l (finding) (finding) 00:00: Herm rut Active 08/22/2014 Problem 11/09/2021 Data migrated from [employer] on 10/04/14. [facility], [place],M H OPID Radha, OPID Price, SUGARD Escobar,M H Price Nausea Nausea Problem Active 2021-11-09 Marvel fauzia (finding) (finding) 08-22 01:25:28 l Active 00:00: [place] 08/22/2014 00 Problem 11/09/2021 Data migrated from [employer] on 10/04/14. [facility], [place],M H OPID Radha, OPID Price, OPID Cody,M H Price Enterobias Enterobia Problem Active 2021-11-09 Memoria is sis 08-08 01:25:28 l (disorder) (disorder) 00:00: He rmann Active 08/08/2014 Problem 11/09/2021 Data migrated from [employer] on 10/04/14. [facility], [place],M H OPID Radha, OPID Price, OPID Cody,M H Price Numbness Numbness Problem Active 2021-11-09 Memoria (finding) (finding) 08-08 01:25:28 l Active 00:00: Mart 08/08/2014 00 Problem 11/09/2021 Data migrated from [facility] on 10/04/14. Medical Group,[facility], [place],M JESSICA Garcia, OPID Price, JESSICA Cody,M H Price Reactive Reactive Problem Active 2021-11-09 Memoria hypoglycem hypoglycem 08-08 01:25:28 l ia ia 00:00: [place] (disorder) (disorder) 00 Active 08/08/2014 Problem 11/09/2021 Data migrated from [facility] on 10/04/14. 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 01:31:41 l (disorder) (disorder) He rmann Active Problem 09/07/2022 [facility], JESSICA Garcia, Price,[facility] Obesity Obesity Problem Active 2022-09-07 [place] (disorder) (disorder) 01:31:41 l Active Mart Problem 09/07/2022 [facility], [place],M JESSICA Garcia, JESSICA Price, JESSICA Cody,[facility] Price,[facility] L98.8 - L98.8 - Diagnosis Active 2021-11-06 Memoria OTH DISRD OTH DISRD 12:38:00 l OF THE OF THE [place] SKIN AND SKIN AND SUBC SUBC Active JESSICA Garcia Disease Disease Problem Resolve 2021-11-09 M emoria caused by caused by d 01:25:28 l 2019-nCoV 2018-nCoV Herm rut Resolved Problem 11/09/2021 [facility], JESSICA Garcia, Price Hypoglycem Hypoglyce Problem Resolve 2021-11-09 Memoria ia kristin d 01:25:28 l (disorder) (disorder) He rmann Resolved Problem 11/09/2021 Medical Group,[facility], [place],[facility] JESSICA Garcia, JESSICA Price, JESSICA Cody,[facility] Price Diarrhea Diarrhea Problem Resolve 2021-11-09 2021-11-09 Memoria (finding) (finding) d 08-23 01:25:28 01:25:28 l Resolved 00:00: [place] 08/23/2014 00 Problem 11/09/2021 Data migrated from [employer] on 10/04/14. [facility] JESSICA Garcia, JESSICA Price, JESSICA Cody,[facility] Price Sinusitis Sinusitis Problem Resolve 2021-11-09 2021-11-09 Memoria (disorder) (disorder) d - 01:25:28 01:25:28 l Resolved 00:00: [place] 12/08/2011 00 Problem 11/09/2021 Data migrated from [employer] on 10/14/14.<b r/>Data migrated from [employer] on 10/13/14. Medical [facility], [place],[facility] JESSICA Garcia, JESSICA Price, JESSICA Cody,[facility] Price History of Past Illness Condition Condition Condition Status Onset Resolution Last Treating Co mments Source Name Details Category Date Date Treatment Clinician Date Backache Backache Diagnosis 2022-09-07 2022-09-07 Memoria (finding) (finding) 09-04 01:31:41 01:31:41 l 09/04/2022 18:33: José Miguel n Diagnosis 00 09/07/[address] [facility] Price Gastritis, Gastritis Problem 2021-10-16 2021-10-16 Memoria unspecifie , 10-14 22:30:38 22:30:38 l d, without unspecifie 16:07: He rmann bleeding d, without 00 bleeding 10/14/2021 [facility] Urinary Urinary Problem 2019-032020-01-132019-122020-01-13 Memoria tract tract 0-14 22:40:53 22:40:53 l infection, infection, 17:00: He rmann site not site not 00 specified specified 01/11/2020 01/13/2020 [facility] Acute Acute Problem 2019-032020-01-13 2020-01-13 M emoria gastritis gastritis 0-14 22:40:53 22:40:53 l without without 17:00: Mart bleeding bleeding 00 01/11/2020 01/13/2020 [facility] Unspecifie Unspecifi Problem 2019-032020-01-13 2020-01-13 Memoria d ed 0-14 22:40:53 22:40:53 l abdominal abdominal 17:00: Herm rut pain pain 00 01/11/2020 01/13/2020 [facility] Acute Acute Problem 2019-032020-01-13 2020-01-13 M emoria bronchitis bronchitis 0-14 22:40:53 22:40:53 l , , 17:00: Mart unspecifie unspecifie 00 d d 01/11/2020 01/13/2020 [facility] Acute Acute Problem 2017-032018-07-25 2018-07-25 M emoria sinusitis, sinusitis, 0-16 14:53:54 14:53:54 l unspecifie unspecifie 04:40: He rmann d d 38 01/12/2018 9 OPID Price Discharge Discharge Problem 2015-09-19 2015-09-19 [facility] Diagnosis: Diagnosis: 09-15 00:37:41 00:37:41 l Adult Adult 05:00: Mart hypothyroi hypothyroi 00 dism dism 09/16/2015 09/19/2015 [facility] Discharge Discharge Problem 2013-12-03 2013-12-03 [facility] Diagnosis: Diagnosis: 11-30 05:11:13 05:11:13 l Biliary Biliary 05:00: Mart colic colic 00 11/30/2013 12/03/2013 [facility] Allergies, Adverse Reactions, Alerts Allergy Allergy Status Severity Reaction(s) Onset Inactive Treating Comm ents Source Name Type Date Date Clinician FLUROQUI DA Active U [facility] HISTORY OF 9-30 Maxine an ALLERGIC 00:00: d REACTION [address] [facility] ciproflo DA Active SV 2017-03 [facility] xacin 0- [place] 00:[facility]: d 00 [facility] levoflox DA Active SV 2017-03 [facility] acin 0- [place] 00:00: d 00 [facility] ANTI DA Active U UNKNOWN 2017-03 [facility] INFLAMMA 0- [place] TORY PO 00:00: d MEDS [address] [facility] ciproflo DA Active SV LEG WEEKNESS 2017-03 HC A xacin 0- [place] 00:00: d 00 [facility] levoflox DA Active SV LOWER EXT 2017-03 [facility] acin WEEKNESS 0 [place] 00:00: d 00 [facility] Ciproflo Propensi Active Method i xacin [...] lammator s to y Drug) drug Ciprofib Allergy Active Swelling UT rate to 04-08 Health substanc 00:00: e 00 Sulfa Propensi Active Rash Univers (Sulfona ty to 5-25 ity of mide adverse 00:00: [place] Antibiot reaction 00 Medica l ics) s Branch Nsaids Allergy Active Swelling ULCERS UT to 04-17 Health substanc 00:00: e 00 Ciproflo Propensi Active Anxiety Unive rs xacin ty to - ity of adverse 00:00: [place] reaction 00 Medical s Branch Levoflox Propensi Active Anxiety Unive rs acin ty to 04-17 ity of adverse 00:00: [place] reaction 00 Medical s Branch Nsaids Propensi Active Other - See ULCERS Uni vers (Non-Dragan ty to comments 1-19 ity of roidal adverse 00:00: [place] Anti-Inf reaction 00 Medica l lammator s Branch y Drug) NSAIDS Allergy Active [place] (NON-DRAGAN to Communi ROIDAL substanc ty ANTI-INF e Hospita LAMMATOR l Y DRUG) Clinics QUINOLON Allergy Active [place] ES to Communi substanc ty e Hospita l Clinics ciproflo ciproflo Active Memori a xacin xacin l [place] Levaquin Levaquin Active Memori a l [place] Food Food Active Memoria Iodine Iodine l [place] NSAIDs NSAIDs Active Memoria l Mart contrast contrast Active Moderate Marvel fauzia media media l (iodine- (iodine- José Miguel n based) based) Family History Family Member Diagnosis Comments Start Date Stop Date Source Natural [facility] Natural mother [facility] Social History Social Habit Start Date Stop Date Quantity Comments Source Gender identity [facility] History of tobacco Passive smoker Un iversity of use [facility] Sexual orientation [facility] Alcohol intake 2021-08-21 2021-08-21 Current Mandaen 00:00:00 00:00:00 non-drinker of Hospital alcohol (finding) History of Social 2021-08-21 2021-08-21 [facility] 00:00:00 [facility] Social History 2017-07-02 2017-07-02 [facility] 19:52:25 19:52:25 Tobacco use and 2017-06-05 2017-06-05 Smokeless Mandaen exposure 00:00:00 00:00:00 tobacco non-user [facility] Sex [birth year] Mandaen 00:00:00 00:00:00 Hospital Smoking Status Start Date Stop Date Source Tobacco smoking consumption unknown [facility] Social [facility] Medications Ordered Filled Start Stop Current Ordering Indication Dosage Frequency Signature Comments Components Source Medication Medication Date Date Medication? Clinician (SIG) Name Name amoxicillin 2022- No [id number] 500mg Q.5D Take 1 UT -clavulanat 11-18 [id number] tablet Heal th e 00:00: 04:59 (500 mg (Augmentin) 00 :00 total) by 500-125 MG mouth in tablet the morning and 1 tablet (500 mg total) in the evening. Do all this for 7 days. amoxicillin 2022- No [id number] 500mg Q.5D Take 1 UT -clavulanat 11-18 [id number] tablet Heal th e 00:00: 04:59 (500 mg (Augmentin) 00 :00 total) by 500-125 MG mouth in tablet the morning and 1 tablet (500 mg total) in the evening. Do all this for 7 days. clindamycin 2022- No [id number] 300mg Q.[id number] Take 1 UT (Cleocin) 11-12 42477 [id number] capsule Health 300 MG 00:00: 04:59 3D (300 mg capsule 00 :00 total) by mouth in the morning and 1 capsule (300 mg total) at noon and 1 capsule (300 mg total) in the evening. Do all this for 7 days. clindamycin 2022- No [id number] 300mg Q.[id number] Take 1 UT (Cleocin) 11-12 58502 [id number] capsule Health 300 MG 00:00: 04:59 3D (300 mg capsule 00 :00 total) by mouth in the morning and 1 capsule (300 mg total) at noon and 1 capsule (300 mg total) in the evening. Do all this for 7 days. acetaminoph Yes [id number] 1{tbl} Q6H Take 1 UT en-codeine 8-15 [id number] tablet by [facility] (Tylenol w/ 00:00: mouth Codeine #3) 00 every 6 300-30 MG (six) tablet hours if needed for severe pain. acetaminoph Yes [id number] 1{tbl} Q6H Take 1 UT en-codeine 8-15 [id number] tablet by [facility] (Tylenol w/ 00:00: mouth Codeine #3) 00 every 6 300-30 MG (six) tablet hours if needed for severe pain. fluoxetine fluoxetine No fluoxetine [place] 10 mg 10 mg 8-14 10 mg Communi capsule capsule 00:00: capsule ty TAKE 1 TAKE 1 00 TAKE 1 Hospita CAPSULE BY CAPSULE BY CAPSULE BY l MOUTH DAILY MOUTH DAILY MOUTH Clinics DAILY fluoxetine fluoxetine No fluoxetine [place] 10 mg 10 mg 8-14 10 mg Communi capsule capsule 00:00: capsule ty TAKE 1 TAKE 1 00 TAKE 1 Hospita CAPSULE BY CAPSULE BY CAPSULE BY l MOUTH DAILY MOUTH DAILY MOUTH Clinics DAILY fluoxetine fluoxetine 2022-0 No fluoxetine [place] 10 mg 10 mg 8-14 10 mg Communi capsule capsule 00:00: capsule ty TAKE 1 TAKE 1 00 TAKE 1 Hospita CAPSULE BY CAPSULE BY CAPSULE BY l MOUTH DAILY MOUTH DAILY MOUTH Clinics DAILY tramadol 50 0 Yes 50 mg = 1 M emoria mg oral 6-08 tab, PO, l tablet 19:12: Q4H, PRN [place] 00 Pain, # 7 tab, 0 Refill(s), Pharmacy: [facility][id number], 160.02, cm, 09/04/22 10:52:00 CDT, Height, 90.6, kg, 09/04/22 10:52:00 CDT, Weight omeprazole Yes 20 mg = 1 Me moria 20 mg oral 6-08 cap, PO, l delayed 18:33: Daily, # José Miguel n release 00 30 cap, 1 capsule Refill(s), Pharmacy: [facility] #[id number], 160.02, cm, 09/04/22 10:52:00 CDT, Height, 90.6, kg, 09/04/22 10:52:00 CDT, Weight Carafate 1 Yes 1 gm = 1 Mem oria g oral 6-08 tab, PO, l tablet 18:33: QID-Before Jada nn 00 Meals, # 120 tab, 0 Refill(s), Pharmacy: [facility] #[id number], 160.02, cm, 09/04/22 10:52:00 CDT, Height, 90.6, kg, 09/04/22 10:52:00 CDT, Weight Xifaxan 550 2022-0 Yes 550 mg = 1 Memoria mg oral 4-20 tab, PO, l tablet 20:34: TID, # 42 José Miguel n 00 tab, 0 Refill(s), Pharmacy: [facility], 160.02, cm, 10/14/21 8:07:00 CDT, Height, 90.909, kg, 10/14/21 8:07:00 CDT, Weight Kenalog 40 Kenalog 40 2021- No Q1D Kenalog 40 [place] mg/mL mg/mL 8-12 mg/mL Communi suspension suspension [...] 00 30 cap, 11 capsule Refill(s), Pharmacy: [facility][id number], 160.02, cm, 10/14/21 8:07:00 CDT, Height, 90.909, kg, 10/14/21 8:07:00 CDT, Weight estradiol Yes 1 gm =, Memor ia 0.1 mg/g 7-25 VAG, 0 l vaginal 15:41: Refill(s) Jada nn cream 00 Probiotic 0 Yes PO, Daily, Me moria Formula 7-18 0 l 13:24: Refill(s) Mart 00 Ellura Yes 0 Memoria 7-18 Refill(s) l 13:24: [place] 00 Suprax 400 Yes 400 mg = 1 M emoria mg oral 7-18 cap, PO, l capsule 13:23: Daily, 0 José Miguel n 00 Refill(s) amoxicillin 2021-2021- No 1{tbl} Q.5D Take 1 [...] per tablet day for 7 days. amoxicillin 2021-0 2021- No 1{tbl} Q.5D Take 1 M ethodi -pot 6-15 06-[address] clavulanate 00:00: 04:59 mouth 2 Ho spita (AUGMENTIN) 00 :00 (two) l 875-125 mg times a per tablet day for 7 days. amoxicillin 2021-0 2021- No 1{tbl} Q.5D Take 1 M [...] Q.5W Insert 1 g M ethodi (ESTRACE) - 05-[address] 0.01 % (0.1 00:00: 04:59 vagina 2 H ospita mg/gram) 00 :00 (two) l vaginal times a cream week. Use nightly for the first 2 weeks estradioL 2021-0 2022- No 1g Q.5W Insert 1 g M ethodi (ESTRACE) 5- 05-[address] 0.01 % (0.1 00:00: 04:59 vagina 2 H ospita mg/gram) 00 :00 (two) l vaginal times a cream week. Use nightly for the first 2 weeks estradioL 2021-0 2022- No 1g Q.5W Insert 1 g M ethodi (ESTRACE) - 05-[address] 0.01 % (0.1 [...] 24 00 :00 l hr tablet oxybutynin 2021-2- No 5mg QD Take 5 mg M [...] l hr tablet dexamethaso dexamethaso No dexamethas [place] ne sodium ne sodium 3-03 one sodium Communi phosphate phosphate 15:10: phosphate ty 10 mg/mL 10 mg/mL 00 10 mg/mL Hos romina injection injection injection l solutionTak solutionTak solutionTa Clinics e 10 mg by e 10 mg by ke 10 mg injection injection by route. route. injection route. peg peg No peg [place] 3350-electr 3350-electr 3-03 3350-elect Communi olytes 236 olytes 236 00:00: rolytes ty gram-22.74 gram-22.74 00 236 Hos romina gram-6.74 gram-6.74 gram-22.74 l gram-5.86 gram-5.86 gram-6.74 Clinics gram gram gram-5.86 solution solution gram MIX AND MIX AND solution DRINK DRINK MIX AND DIRECTED DIRECTED DRINK DIRECTED GoLYTELY Yes See Memoria oral powder 04-05 Instructio l for 20:45: ns, Take Mart reconstitut 00 as ion directed by physician. , # 1 ea, 0 Refill(s), Pharmacy: [facility] #[id number], fill whichever other prep is in stock and covered by insurance if this is not available, 160.02, cm, 04/05/21 10:11:00 [employer], Height, 89.545, k... rifaximin 2020-03 Yes 550 mg = 1 Me moria 550 MG Oral 2-17 tab, PO, l Tablet 22:33: TID, # 42 José Miguel n [XIFAXAN] 00 tab, 0 Refill(s), Pharmacy: [facility] #[id number], 160.02, cm, 03/09/20 11:28:00 [employer], Height, 86.364, kg, 03/09/20 11:28:00 [employer], Weight lidocaine lidocaine 2020-03 No Q1D lidocaine [place] (PF) 10 (PF) 10 0-18 (PF) 10 Commun i mg/mL (1 %) mg/mL (1 %) 17:04: mg/mL (1 ty injection injection 42 %) Hospi ta solutionTak solutionTak injection l e 2 mL e 2 mL solutionTa Clini cs every day every day ke 2 mL by by every day injection injection by route. route. injection route. Kenalog 40 Kenalog 40 2021-1 No Q1D Kenalog 40 [place] mg/mL mg/mL 0-18 mg/mL Communi suspension suspension 17:02: suspension ty for for 19 for Hospita injectionTa injectionTa injectionT l ke 0.5 mL ke 0.5 mL tatianna 0.5 mL Clinics every day every day every day by by by injection injection injection route for 1 route for 1 route for day. day. 1 day. fluticasone 1-0 Yes 50ug QD 1 spray [...] Vomiting, # 60 tab, 0 Refill(s), Pharmacy: [facility] #[id number], 160.02, cm, 03/09/20 11:28:00 [employer], Height, 86.364, kg, 03/09/20 11:28:00 [employer], Weight Famotidine 2019-03 Yes 40 mg = [...] 0-15 ml, PO, l Oral 02:09: Before [place] Suspension 00 Meals & Bedtime, # 200 [...] tab, PO, l tablet 02:08: Q6H, PRN [place] 00 Nausea, # 15 tab, 0 Refill(s) Vantin 200 2019-03 Yes 200 mg = 1 M emoria mg oral 0-15 tab, PO, l tablet 02:08: Q12H, X 10 Jada nn 00 day, # 20 tab, 0 Refill(s) Phenergan 2019-03 Yes 25 mg = 1 Mem oria 25 mg oral 0-15 tab, PO, l tablet 02:08: Q6H, PRN [place] 00 Nausea, # 15 tab, 0 Refill(s) [...] hydroxide/M 0-14 (aluminum l g 23:35: hydroxide- [place] hydroxide/s 00 magnesium imethicone hyd-simeth icone 200-200-20 mg/5ml 30 ml ud GINETTE) Xylocaine 2019-03 No Notes: Memori a Viscous 2% 0-14 (Same as: l mucous 23:35: Xylocaine) Jada nn membrane 00 solution Saline 2019-03 No Notes: Memoria Flush 0.9% 0-14 (Same as: l 23:28: BD [place] 00 Posiflush) Sodium 2019-03 No 1,000 mL, Memori a Chloride 0-14 1000 l 0.9% 23:28: ml/hr, Mart (Bolus) IV 00 Infuse Over: 1 hr, Route: IV, 1,000, Drug form: INJ, ONCE, Priority: STAT, Dosing Weight 89 kg, Start date: 01/11/20 18:28:00 CDT, Stop date: 01/11/20 18:28:00 CDT, 0 Morphine 2019-03 No Notes: Memoria 0-14 (Same l 23:28: as:MORPhin [place] 00 e Sulfate) Ondansetron 2019-03 No Notes: Marvel fauzia 0-14 (Same as: l 23:28: Zofran) Mart 00 MEDICATION WASTE Product Size: 4 mg Product Wasted: ___ mg Famotidine 2019-03 No Notes: Memor ia 0-14 (Same as: l 23:28: Pepcid) [place] 00 Can be dilute in 5-10cc NS [...] l macrocrysta 16:18: BID, X 7 He ann ls-monohydr 00 day, # 14 ate 100 mg cap, 0 oral Refill(s), capsule Pharmacy: (Macrobid) [facility] #[id number] fluconazole Yes See Memori a 150 mg oral 6-07 Instructio l tablet 14:07: ns, 1 tab José Miguel n 00 PO ONCE a week, # 2 tab, 0 Refill(s), Pharmacy: [facility] ciclopirox Yes 1 appl, Marvel fauzia 7.7 MG/ML 6-07 TOP, BID, l Topical 14:07: X 28 day, Jada nn Cream 00 # 90 gm, 0 Refill(s), Pharmacy: [facility] rifaximin Yes 550 mg = 1 Me moria 550 MG Oral 5-01 tab, PO, l Tablet 21:43: TID, # 42 José Miguel n [XIFAXAN] 00 tab, 0 Refill(s), Pharmacy: [facility] pantoprazol 2018- Yes 40 mg, PO, Memoria e 5-01 Daily, # l 18:57: 30 tab, 0 [place] 00 Refill(s) Hyoscyamine 2018- Yes 0.125 mg = Memoria Sulfate 3-20 1 tab, PO, l 0.125 MG 21:36: QID, PRN Jada nn Disintegrat 00 Spasm, # ing Tablet 40 tab, 1 [Nulev] Refill(s), Pharmacy: [facility] Sulfamethox Yes 1 tab, PO, Memoria azole 800 3-20 BID, X 7 l MG / 21:36: day, # 14 [place] Trimethopri 00 tab, 0 m 160 MG Refill(s), Oral Tablet Pharmacy: [Bactrim] [facility] clonazePAM Yes 0.5 mg = 1 M emoria 0.5 mg oral 3-20 tab, PO, l tablet 21:36: Daily, PRN Jada nn 00 Anxiety, # 30 tab, 1 Refill(s) Metronidazo Yes 500 mg = 1 Memoria le 500 MG 3-18 tab, PO, l Oral Tablet 19:12: Q8H, X 10 H ermann [Flagyl] 00 day, # 30 tab, 0 Refill(s), Pharmacy: [facility] [place] [id number] Amoxicillin Yes 875 mg = 1 Memoria 875 MG / 3-18 tab, PO, l Clavulanate 19:12: Q12H, X 10 [place] 125 MG Oral 00 day, # 20 Tablet tab, 0 [Augmentin Refill(s), 875-mg] Pharmacy: [facility] [place] [id number] Nystatin 2017-03 No 1,000,000 Marvel fauzia [id number] UNT 0-15 unit = 2 l Oral Tablet 13:43: tab, PO, He rmann 00 BID, X 30 day, # 120 tab, 0 Refill(s), Pharmacy: [facility] [place] [address] sucralfate 2017-03 Yes 1 gm = 1 Mem oria 1 g oral 0-11 tab, PO, l tablet 19:23: QID, # 120 Jada nn 00 tab, 0 Refill(s), Pharmacy: [facility] benzonatate 2017-03 No 100 mg = 1 Memoria 100 MG Oral 0-09 cap, PO, l Capsule 20:31: TID, PRN José Miguel n [Tessalon 00 as needed Perles] for cough, X 7 day, # 21 cap, 0 Refill(s), Pharmacy: [facility] Azithromyci 2017-03 No See Memori a n 5 Day 0-09 Instructio l Dose Pack 20:26: ns, Take 2 He rmann 250 mg oral 00 tablets by tablet mouth the first day then 1 tablet by mouth days 2-5., X 5 day, # 6 tab, 0 Refill(s), Pharmacy: [facility] doxycycline 2017-03 Yes 100 mg = 1 Memoria hyclate 100 0-09 tab, PO, l MG Oral 20:13: BID, 0 [place] Tablet 00 Refill(s) clonazePAM 2017-03 No 0.5 mg = 1 M emoria 0.5 mg oral 0-03 tab, PO, l tablet, 15:29: BID, # 60 Jada nn disintegrat 00 tab, 1 ing Refill(s) pantoprazol Yes TK 1 T PO U nivers e 40 mg EC 9-20 ONCE DAILY ity of tablet 00:00: 1 HOUR [place] 00 BEFORE Medical EATING [facility] FOOD. pantoprazol Yes TK 1 T PO U nivers e 40 mg EC 9-20 ONCE DAILY ity of tablet 00:00: 1 HOUR [place] 00 BEFORE Medical EATING [facility] FOOD. valACYclovi No 1 gm = 1 Me moria r 1 g oral 4-05 tab, PO, l tablet 20:17: Q8H, X 10 José Miguel n 37 day, # 30 tab, 1 Refill(s), Pharmacy: [facility] pregabalin Yes 50 mg = 1 Me moria 50 MG Oral 4-05 cap, PO, l Capsule 20:17: TID, # 90 Jada nn [Lyrica] 00 cap, 0 Refill(s) valACYclovi No 1 gm = 1 Me moria r 1 g oral 4-02 tab, PO, l tablet 18:18: Q8H, X 7 [place] 00 day, # 21 tab, 1 Refill(s), Pharmacy: [facility] valACYclovi No 1 gm = 1 Me moria r 1 g oral 3-13 tab, PO, l tablet 19:40: Q8H, X 7 [place] 00 day, # 21 tab, 1 Refill(s), Pharmacy: [facility] polyethylen No 17 gm, PO, Memoria e glycol 3-13 Daily, X l 3350 oral 19:40: 31 day, # Her sellers powder for 00 527 gm, 1 reconstitut Refill(s), ion Pharmacy: [facility] [id number] benzonatate Yes 100 mg = 1 Memoria 100 mg oral 03-31 cap, PO, l capsule 20:29: TID, do [place] 00 not crush or chew, X 10 day, # 30 cap, 0 Refill(s), Pharmacy: [facility] Codeine Yes 5 mL, PO, Memor ia Phosphate 2 03-31 Q12H, PRN l MG/ML / 20:29: cough, X José Miguel n Guaifenesin 00 10 day, # 20 MG/ML 100 mL, 0 Oral Refill(s) Solution [Cheratussi n] Fluticasone Yes 1 spray, Me moria propionate 03-31 NASAL, l 0.05 20:19: BID, # 16 [place] MG/ACTUAT 00 gm, 2 Metered Refill(s), Dose Nasal Pharmacy: [facility] Azithromyci Yes See Memori a n 5 Day 03-31 Instructio l Dose Pack 20:19: ns, Take 2 He rmann 250 mg oral 00 tablets by tablet mouth the first day then 1 tablet by mouth days 2-5., X 5 day, # 6 tab, 0 Refill(s), Pharmacy: [facility] [id number] clonazePAM 2016-03 Yes 0.5 mg = 1 M emoria 0.5 mg oral 1-27 tab, PO, l tablet, 20:26: BID, # 60 Jada nn disintegrat 00 tab, 1 ing Refill(s) EnteraGam 2015-03 Yes EnteraGam, Me moria 2-14 See l 21:03: Instructio [place] 00 ns, Samples given in clinic on 03/12/16. Lot [id number] exp date 10/15, # 1 box, Refill(s) [...] Sodium No 1,000 mL, Memori a Chloride - 1,000 l 0.154 22:33: ml/hr, [place] MEQ/ML 00 Infuse Injectable Over: 1 Solution hr, Route: IV, 1,000, Drug form: INJ, ONCE, Priority: STAT, Dosing Weight 85.818 kg, Start date: 09/16/15 17:33:00 CDT, Duration: 1 doses or times, Stop date: 09/16/15 17:33:00 CDT Saline No Notes: Memoria Flush 0.9% 09-15 (Same as: l 22:33: BD [place] 00 Posiflush) cholestyram 2014-03 Yes 4 gm, PO, M emoria ine 4 g/5 g 2-17 BID, # 210 l oral powder 21:38: gm, 0 Jada nn 00 Refill(s), called to pharmacy Promethazin 2014-03 Yes 12.5 mg = M emoria e 2-17 1 tab, PO, l Hydrochlori 21:38: Q4H, PRN He dena de 12.5 MG 00 Other-See Oral Tablet Comments, [Phenergan] X 10 day, # 60 tab, 0 Refill(s), called to pharmacy Hyoscyamine 2014-03 No 0.125 mg = Memoria Sulfate 2-17 1 tab, SL, l 0.125 MG 21:16: Q4H, # 30 Herm rut Sublingual 00 tab, 1 Tablet Refill(s), [Levsin] Pharmacy: [facility] Ondansetron 2014-03 Yes 8 mg = 1 Me moria 8 MG 2-17 tab, PO, l Disintegrat 21:16: TID, PRN He dena ing Tablet 00 Nausea and [Zofran] Vomiting, Dissolve tab under tongue, X 7 day, # 21 tab, 1 Refill(s), Pharmacy: [facility] GoLYTELY 2014-03 Yes 240 mL, Memori a oral powder 2-16 PO, l for 21:56: Q10Min, # Mart reconstitut 00 1 ea, 0 ion Refill(s), Pharmacy: [facility] [id number] Flagyl 2014-03 Yes 500 mg = 1 [...] 00 0 5 MG Oral Refill(s) Tablet [[place] 5/325] Phenergan No Notes: Do Mem oria 11-30 not give l 17:41: IV push. (Same as: Phenergan) Saline No Notes: Memoria Flush 0.9% 11-30 (Same as: l 17:25: BD [place] 00 Posiflush) Carafate Yes 0 Memoria 11-30 Refill(s) l 17:13: Mart Promethazin Yes 0 Memori a e 11-30 Refill(s) l 17:12: [place] 00 acyclovir 5 acyclovir 5 No acyclovir [place] % topical % topical 5 % Commu ni ointment ointment topical ty APPLY TO APPLY TO ointment [facility] THE THE APPLY TO l AFFECTED AFFECTED THE Clinics AREA EVERY AREA EVERY AFFECTED 2 HOURS 2 HOURS AREA EVERY DURING DURING 2 HOURS AWAKE HOURS AWAKE HOURS DURING FOR 4 DAYS FOR 4 DAYS AWAKE HOURS FOR 4 DAYS amoxicillin amoxicillin No amoxicilli [place] 500 500 n 500 Communi mg-potassiu mg-potassiu [...] DIRECTED Clinics TODAY cephalexin cephalexin No cephalexin [place] 500 mg 500 mg 500 mg Communi capsule capsule capsule ty TAKE 1 TAKE 1 TAKE 1 Hospita CAPSULE BY CAPSULE BY CAPSULE BY l MOUTH TWICE MOUTH TWICE MOUTH Clinics DAILY DAILY TWICE DAILY estradiol estradiol No estradiol [place] 0.01% (0.1 0.01% (0.1 0.01% (0.1 Communi mg/gram) mg/gram) mg/gram) ty vaginal vaginal vaginal Hospit a cream cream cream l INSERT 1 INSERT 1 INSERT 1 Cli nics GRAM INTO GRAM INTO GRAM INTO VAGINA VAGINA VAGINA TWICE A TWICE A TWICE A WEEK AT WEEK AT WEEK AT NIGHT. NIGHT. NIGHT. fluconazole fluconazole No fluconazol [place] 150 mg 150 mg e 150 mg Communi tablet tablet tablet ty Hospita l Clinics hydroxyzine hydroxyzine No hydroxyzin [place] HCl 25 mg HCl 25 mg e [...] Kenalog 40 No 60mg Q1D Kenalog 40 [place] mg/mL mg/mL mg/mL Communi suspension suspension suspension ty for for for Hospita injection injection injection l Take 60 mg Take 60 mg Take 60 mg Clinics every day every day every day by by by injection injection injection route. route. route. metoprolol metoprolol No metoprolol [place] succinate succinate succinate Communi ER 25 mg ER 25 mg ER 25 mg ty tablet,exte tablet,exte tablet,ext Hospita nded nded ended l release 24 release 24 release 24 Clinics hr TAKE 1 hr TAKE 1 hr TAKE 1 TABLET BY TABLET BY TABLET BY MOUTH EVERY MOUTH EVERY MOUTH DAY DAY EVERY DAY metronidazo metronidazo No metronidaz [place] le 500 mg le 500 mg ole 500 mg Communi tablet TAKE tablet TAKE tablet ty 1 TABLET BY 1 TABLET BY TAKE 1 Hospita MOUTH EVERY MOUTH EVERY TABLET BY l 8 HOURS FOR 8 HOURS FOR MOUTH Clinics 7 DAYS 7 DAYS EVERY 8 HOURS FOR 7 DAYS omeprazole omeprazole No omeprazole [place] 20 mg 20 mg 20 mg Communi capsule,del capsule,del capsule,de ty ayed ayed layed Hospita release release release l TAKE 1 TAKE 1 TAKE 1 Clinics CAPSULE BY CAPSULE BY CAPSULE BY MOUTH DAILY MOUTH DAILY MOUTH DAILY ondansetron ondansetron No ondansetro [place] 4 mg 4 mg n 4 mg [...] 6 DAYS NEEDED paroxetine paroxetine No paroxetine [place] ER 25 mg ER 25 mg ER 25 mg Com ricci tablet,exte tablet,exte tablet,ext ty nded nded ended Hospita release 24 release 24 release 24 l hr TAKE 1 hr TAKE 1 hr TAKE 1 Clinics TABLET BY TABLET BY TABLET BY MOUTH EVERY MOUTH EVERY MOUTH DAY DAY EVERY DAY tobramycin tobramycin No tobramycin [place] 0.3 0.3 0.3 Communi %-dexametha %-dexametha %-dexameth [...] FOR 5 DAYS triamcinolo triamcinolo No triamcinol [place] ne ne one Communi acetonide acetonide acetonide [...] FOR 7 DAYS trimethopri trimethopri No trimethopr [place] m 100 mg m 100 mg im 100 mg Co mmuni tablet TAKE tablet TAKE tablet ty 1 TABLET BY 1 TABLET BY TAKE 1 Hospita MOUTH EVERY MOUTH EVERY TABLET BY l DAY DAY MOUTH Clinics EVERY DAY valacyclovi valacyclovi No valacyclov [place] r 1 gram r 1 gram ir 1 gram Co mmuni tablet TAKE tablet TAKE tablet ty 1 TABLET BY 1 TABLET BY TAKE 1 Hospita MOUTH TWICE MOUTH TWICE TABLET BY l DAILY prn DAILY prn MOUTH Clin ics TWICE DAILY prn amoxicillin amoxicillin No amoxicilli [place] [phone] n 875 Communi mg-potassiu mg-potassiu mg-potassi ty m m um Hospita clavulanate clavulanate clavulanat l 125 mg 125 mg e 125 mg Clinics tablet tablet tablet Flagyl 500 Flagyl 500 No 1 Q8H Flagyl 500 [place] mg tablet mg tablet mg tablet Communi Take 1 Take 1 Take 1 ty tablet tablet tablet Hospita every 8 every 8 every 8 l hours by hours by hours by Cli nics oral route. oral route. oral route. prednisone prednisone No 1 BID prednisone [place] 20 mg 20 mg 20 mg Communi tablet Take tablet Take tablet ty 1 tablet 1 tablet Take 1 Hospi ta twice a day twice a day tablet l by oral by oral twice a Clinic s route for 5 route for 5 day by days. days. oral route for 5 days. Valtrex 1 Valtrex 1 No 1 TID Valtrex 1 [place] gram tablet gram tablet gram C ommuni Take 1 Take 1 tablet ty tablet 3 tablet 3 Take 1 Hospi ta times a day times a day tablet 3 l by oral by oral times a Clinic s route for 7 route for 7 day by days. days. oral route for 7 days. Vistaril 25 Vistaril 25 No 1capsul Q7H Vistaril [place] mg capsule mg capsule e(s) 25 mg Co mmuni Take 1 Take 1 capsule ty capsule capsule Take 1 Hospita every 6-8 every 6-8 capsule l hours by hours by every 6-8 Cl inics oral route oral route hours by as needed. as needed. oral route as needed. dicyclomine dicyclomine No 1 TID dicyclomin [place] 20 mg 20 mg e 20 mg Communi tablet Take tablet Take tablet ty 1 tablet 3 1 tablet 3 Take 1 H ospita times a day times a day tablet 3 l by oral by oral times a Clinic s route as route as day by needed. needed. oral route as needed. hyoscyamine hyoscyamine No hyoscyamin [place] 0.125 mg 0.125 mg e 0.125 mg C ommuni sublingual sublingual sublingual ty tablet [facility] ivermectin ivermectin No 2 BID ivermectin [place] 3 mg tablet 3 mg tablet 3 mg C ommuni Take 2 Take 2 tablet ty tablets tablets Take 2 Hospita twice a day twice a day tablets l by oral by oral twice a Clinic s route. route. day by oral route. Denavir 1 % Denavir 1 % No Denavir 1 [place] topical topical % topical Comm uni cream APPLY cream APPLY cream ty TO THE TO THE APPLY TO [facility] AFFECTED AFFECTED THE l AREA(S) BY AREA(S) BY AFFECTED Clinics TOPICAL TOPICAL AREA(S) BY ROUTE EVERY ROUTE EVERY TOPICAL 2 HOURS 2 HOURS ROUTE DURING DURING EVERY 2 WAKING WAKING HOURS HOURS FOR 4 HOURS FOR 4 WAKING HOURS FOR 4 DAYS No [place] Once Daily Once Daily Once Daily Communi [...] DAILY valacyclovi valacyclovi No 1 TID valacyclov [place] r 1 gram r 1 gram ir [...] % Denavir 1 % No Denavir 1 [place] topical topical % topical Comm uni cream APPLY cream APPLY cream ty TO THE TO THE APPLY TO [facility] AFFECTED AFFECTED THE l AREA(S) BY AREA(S) BY AFFECTED Clinics TOPICAL TOPICAL AREA(S) BY ROUTE EVERY ROUTE EVERY TOPICAL 2 HOURS 2 HOURS ROUTE DURING DURING EVERY 2 WAKING WAKING HOURS HOURS FOR 4 HOURS FOR 4 DAYS WAKING HOURS FOR 4 DAYS No [place] Once Daily Once Daily Once Daily Communi [...] DAILY valacyclovi valacyclovi No 1 TID valacyclov [place] r 1 gram r 1 gram ir [...] days. acyclovir 5 acyclovir 5 No acyclovir [place] % topical % topical 5 % Commu [...] DAYS cefdinir cefdinir No 1capsul Q12H cefdinir [place] 300 mg 300 mg e(s) 300 mg Communi capsule capsule capsule ty Take 1 Take 1 Take 1 Hospita capsule capsule capsule l every 12 every 12 every 12 Cli nics hours by hours by hours by oral route. oral route. oral route. Denavir 1 % Denavir 1 % No Denavir 1 [place] topical topical % topical Comm uni cream [...] FOR 4 DAYS hyoscyamine hyoscyamine No hyoscyamin [place] 0.125 mg 0.125 mg e 0.125 mg C ommuni disintegrat disintegrat disintegra ty ing tablet ing tablet ting [facility] tablet l Clinics Pataday Pataday No Pataday [place] Once Daily Once Daily Once Daily Communi Relief 0.2 Relief 0.2 Relief 0.2 ty % eye drops % eye drops % eye Hospita INSTILL 1 INSTILL 1 drops l DROP INTO DROP INTO INSTILL 1 Clinics AFFECTED AFFECTED DROP INTO EYE(S) BY EYE(S) BY AFFECTED OPHTHALMIC OPHTHALMIC EYE(S) BY ROUTE ONCE ROUTE ONCE OPHTHALMIC DAILY DAILY ROUTE ONCE DAILY sulfamethox sulfamethox No sulfametho [place] azole 800 azole 800 xazole 800 Communi mg-trimetho mg-trimetho mg-trimeth ty prim 160 mg prim 160 mg oprim 160 Hospita tablet tablet mg tablet [facility] valacyclovi No 1 TID valacyclov [place] r 1 gram r 1 gram ir [...] days. acyclovir 5 acyclovir 5 No acyclovir [place] % topical % topical 5 % Commu ni ointment ointment topical ty APPLY TO APPLY TO ointment [facility] THE THE APPLY TO l AFFECTED AFFECTED THE Clinics AREA EVERY AREA EVERY AFFECTED 2 HOURS 2 HOURS AREA EVERY DURING DURING 2 HOURS AWAKE HOURS AWAKE HOURS DURING FOR 4 DAYS FOR 4 DAYS AWAKE HOURS FOR 4 DAYS carbamazepi carbamazepi No carbamazep [place] ne ER 100 ne ER 100 ine ER 100 Communi mg mg mg ty tablet,exte tablet,exte tablet,ext Hospita nded nded ended l release,12 release,12 release,12 Clinics hr TAKE 1 hr TAKE 1 hr TAKE 1 TABLET BY TABLET BY TABLET BY MOUTH EVERY MOUTH EVERY MOUTH 12 HOURS 12 HOURS EVERY 12 HOURS hyoscyamine hyoscyamine No hyoscyamin [place] 0.125 mg 0.125 mg e 0.125 mg C ommuni disintegrat disintegrat disintegra ty ing tablet ing tablet ting [facility] tablet [facility] valacyclovi No valacyclov [place] r 1 gram r 1 gram ir 1 gram Co mmuni tablet TAKE tablet TAKE tablet ty 1 TABLET BY 1 TABLET BY TAKE 1 Hospita MOUTH EVERY MOUTH EVERY TABLET BY l DAY FOR 30 DAY FOR 30 MOUTH Cl inics DAYS DAYS EVERY DAY FOR 30 DAYS acyclovir 5 acyclovir 5 No acyclovir [place] % topical % topical 5 % Commu [...] DAYS clonidine clonidine No 1 Q1D clonidine [place] HCl ER 0.1 HCl ER 0.1 HCl [...] evening. DripDrop DripDrop No 1packet Q1D DripDrop [place] 305 mg-175 305 mg-175 (s) 305 mg-175 Communi mg-70 mg mg-70 mg mg-70 mg ty oral powder oral powder oral H ospita packet Take packet Take powder l 1 packet 1 packet packet Clini cs every day every day Take 1 by oral by oral packet route as route as every day needed. needed. by oral route as needed. hyoscyamine hyoscyamine No hyoscyamin [place] 0.125 mg 0.125 mg e 0.125 mg C ommuni disintegrat disintegrat disintegra ty ing tablet ing tablet ting [facility] tablet l Clinics Kenalog 40 Kenalog 40 No .5mL Q1D Kenalog 40 [place] mg/mL mg/mL mg/mL Communi suspension suspension suspension ty for for for Hospita injection injection injection l Take 0.5 mL Take 0.5 mL Take 0.5 Clinics every day every day mL every by by day by injection injection injection route for 1 route for 1 route for day. day. 1 day. lidocaine lidocaine No 2mL Q1D lidocaine [place] (PF) 10 (PF) 10 (PF) 10 Commun i mg/mL (1 %) mg/mL (1 %) mg/mL (1 ty injection injection %) Hospi ta solution solution injection l Take 2 mL Take 2 mL solution C linics every day every day Take 2 mL by by every day injection injection by route. route. injection route. pantoprazol pantoprazol No 1 Q1D pantoprazo [place] e 40 mg e 40 mg le 40 mg Commu ni tablet,hodan tablet,hodan tablet,del ty yed release yed release ayed H ospita Take 1 Take 1 release l tablet tablet Take 1 Clinics every day every day tablet by oral by oral every day route. route. by oral route. valacyclovi valacyclovi No valacyclov [place] r 1 gram r 1 gram ir 1 gram Co mmuni tablet TAKE tablet TAKE tablet ty 1 TABLET BY 1 TABLET BY TAKE 1 Hospita MOUTH EVERY MOUTH EVERY TABLET BY l DAY FOR 30 DAY FOR 30 MOUTH Cl inics DAYS DAYS EVERY DAY FOR 30 DAYS Artificial Artificial No 1drop(s Q1D Artificial [place] Tears Tears ) Tears Communi (polyvinyl (polyvinyl (polyvinyl ty alcohol) alcohol) alcohol) [facility] 1.4 % eye 1.4 % eye 1.4 % eye l drops Apply drops Apply drops Clinics 1 drop 1 drop Apply 1 every day every day drop every by by day by ophthalmic ophthalmic ophthalmic route. route. route. azithromyci azithromyci No 1 Q1D azithromyc [place] n 500 mg n 500 mg in 500 mg Co mmuni tablet Take tablet Take tablet ty 1 tablet 1 tablet Take 1 Hospi ta every day every day tablet l by oral by oral every day Clin ics route for 5 route for 5 by oral days. days. route for 5 days. DripDrop DripDrop No 1packet Q1D DripDrop [place] 305 mg-175 305 mg-175 (s) 305 mg-175 Communi mg-70 mg mg-70 mg mg-70 mg ty oral powder oral powder oral H ospita packet Take packet Take powder l 1 packet 1 packet packet Clini cs every day every day Take 1 by oral by oral packet route as route as every day needed. needed. by oral route as needed. hyoscyamine hyoscyamine No hyoscyamin [place] 0.125 mg 0.125 mg e 0.125 mg C ommuni disintegrat disintegrat disintegra ty ing tablet ing tablet ting [facility] tablet l Clinics pantoprazol pantoprazol No pantoprazo [place] e 40 mg e 40 mg le 40 mg Commu ni tablet,hodan tablet,hodan tablet,del ty yed release yed release ayed H ospita TAKE 1 TAKE 1 release l TABLET BY TABLET BY TAKE 1 Cli nics MOUTH EVERY MOUTH EVERY TABLET BY DAY DAY MOUTH EVERY DAY acetylcyste acetylcyste No 1capsul BID acetylcyst [place] ine 600 mg ine 600 mg e(s) eine 600 Communi capsule capsule mg capsule ty Take 1 Take 1 Take 1 Hospita capsule capsule capsule l twice a day twice a day twice a Clinics by oral by oral day by route. route. oral route. Artificial Artificial No 1drop(s Q1D Artificial [place] Tears Tears ) Tears Communi (polyvinyl (polyvinyl (polyvinyl ty alcohol) alcohol) alcohol) [facility] 1.4 % eye 1.4 % eye 1.4 % eye l drops Apply drops Apply drops Clinics 1 drop 1 drop Apply 1 every day every day drop every by by day by ophthalmic ophthalmic ophthalmic route. route. route. Effexor XR Effexor XR No 1capsul Q1D Effexor XR [place] 75 mg 75 mg e(s) 75 mg Communi capsule,ext capsule,ext capsule,ex ty ended ended tended Hospita release release release l Take 1 Take 1 Take 1 Clinics capsule capsule capsule every day every day every day by oral by oral by oral route for route for route for 90 days. 90 days. 90 days. hyoscyamine hyoscyamine No hyoscyamin [place] 0.125 mg 0.125 mg e 0.125 mg C om[facility]i disintegrat disintegrat disintegra ty ing tablet ing tablet ting [facility] tablet l Clinics pantoprazol pantoprazol No pantoprazo [place] e 40 mg e 40 mg le 40 mg [facility] ni tablet,hodan tablet,hodan tablet,del ty yed release yed release ayed [facility] TAKE 1 TAKE 1 release l TABLET BY TABLET BY TAKE 1 Cli nics MOUTH EVERY MOUTH EVERY TABLET BY DAY DAY MOUTH EVERY DAY acetylcyste acetylcyste No 1capsul BID acetylcyst [place] ine 600 mg ine 600 mg e(s) eine 600 [facility] capsule capsule mg capsule ty Take 1 Take 1 Take 1 [facility]ospita capsule capsule capsule l twice a day twice a day twice a Clinics by oral by oral day by route. route. oral route. Artificial Artificial No 1drop(s Q1D Artificial [place] Tears Tears ) Tears [facility] (polyvinyl (polyvinyl (polyvinyl ty alcohol) alcohol) alcohol) [facility] 1.4 % eye 1.4 % eye 1.4 % eye l drops Apply drops Apply drops Clinics 1 drop 1 drop Apply 1 every day every day drop every by by day by ophthalmic ophthalmic ophthalmic route. route. route. Effexor XR Effexor XR No 1capsul Q1D Effexor XR [place] 75 mg 75 mg e(s) 75 mg [facility] capsule,ext capsule,ext capsule,ex ty ended ended tended Hospita release release release l Take 1 Take 1 Take 1 Clinics capsule capsule capsule every day every day every day by oral by oral by oral route for route for route for 90 days. 90 days. 90 days. hyoscyamine hyoscyamine No hyoscyamin [place] 0.125 mg 0.125 mg e 0.125 mg [facility] disintegrat disintegrat disintegra ty ing tablet ing tablet ting [facility] tablet l Clinics pantoprazol pantoprazol No pantoprazo [place] e 40 mg e 40 mg le 40 mg [facility] ni tablet,hodan tablet,hodan tablet,del ty yed release yed release ayed [facility] TAKE 1 TAKE 1 release l TABLET BY TABLET BY TAKE 1 Cli nics MOUTH EVERY MOUTH EVERY TABLET BY DAY DAY MOUTH EVERY DAY acyclovir acyclovir No 1 Q1D acyclovir [place] 400 mg 400 mg 400 mg [facility] tablet Take tablet Take tablet ty 1 tablet 1 tablet Take 1 Hospi ta every day every day tablet l by oral by oral every day Clin ics route for route for by oral 30 days. 30 days. route for 30 days. amoxicillin amoxicillin No amoxicilli [place] [phone] n 875 [facility] mg-potassiu mg-potassiu mg-potassi ty m m um [facility]ospita clavulanate clavulanate clavulanat l 125 mg 125 mg e 125 mg Clinics tablet TAKE tablet TAKE tablet 1 TABLET BY 1 TABLET BY TAKE 1 MOUTH EVERY MOUTH EVERY TABLET BY 12 HOURS 12 HOURS MOUTH EVERY 12 HOURS metronidazo metronidazo No metronidaz [place] le 500 mg le 500 mg ole 500 mg [facility] tablet TAKE tablet TAKE tablet ty 1 TABLET BY 1 TABLET BY TAKE 1 Hospita MOUTH EVERY MOUTH EVERY TABLET BY l 8 HOURS 8 HOURS MOUTH Clinics EVERY 8 HOURS ondansetron ondansetron No ondansetro [place] 4 mg 4 mg n 4 mg [facility] disintegrat disintegrat disintegra ty ing tablet ing tablet ting [facility] tablet l Clinics Xifaxan 550 Xifaxan 550 No 1 BID Xifaxan [place] mg tablet mg tablet 550 mg Com ricci Take 1 Take 1 tablet ty tablet tablet Take 1 Hospita twice a day twice a day tablet l by oral by oral twice a Clinic s route. route. day by oral route. acyclovir acyclovir No acyclovir [place] 400 mg 400 mg 400 mg Commun[facility] [...] by oral route. metronidazo metronidazo No metronidaz [place] le 500 mg le 500 mg ole 500 mg [facility] tablet TAKE tablet TAKE tablet ty 1 TABLET BY 1 TABLET BY TAKE 1 [facility]ospita MOUTH EVERY MOUTH EVERY TABLET BY l 8 HOURS 8 HOURS MOUTH Clinics EVERY 8 HOURS ondansetron ondansetron No ondansetro [place] 4 mg 4 mg n 4 mg [facility] disintegrat disintegrat disintegra ty ing tablet ing tablet ting [facility] tablet l Clinics pantoprazol pantoprazol No pantoprazo [place] e 40 mg e 40 mg le 40 mg [facility] tablet,hodan tablet,hodan tablet,del ty yed release yed release ayed [facility] release l Clinics peg peg No peg [place] 3350-electr 3350-electr 3350-elect [facility] olytes 236 olytes 236 rolytes ty gram-22.74 gram-22.74 236 [facility] gram-6.74 gram-6.74 gram-22.74 l gram-5.86 gram-5.86 gram-6.74 Clinics gram gram gram-5.86 solution solution gram MIX AND MIX AND solution DRINK DRINK MIX AND DIRECTED DIRECTED DRINK DIRECTED sucralfate sucralfate No 1 QID sucralfate [place] 1 gram 1 gram 1 gram [facility] tablet Take tablet Take tablet ty 1 tablet 4 1 tablet 4 Take 1 [facility] times a day times a day tablet 4 l by oral by oral times a Clinic s route. route. day by oral route. venlafaxine venlafaxine No venlafaxin [place] ER 75 mg ER 75 mg e ER 75 mg [facility] capsule,ext capsule,ext capsule,ex ty ended ended tended [facility]ospita release 24 release 24 release 24 l hr hr hr Clinics Xifaxan 550 Xifaxan 550 No Xifaxan [place] mg tablet mg tablet 550 mg Com ricci Take 1 Take 1 tablet ty tablet tablet Take 1 Hospita twice a day twice a day tablet l by oral by oral twice a Clinic s route. route. day by oral route. dexamethaso dexamethaso No 10mg dexamethas [place] ne sodium ne sodium one sodium [facility] phosphate phosphate phosphate ty 10 mg/mL 10 mg/mL 10 mg/mL [facility] injection injection injection l solution solution solution Cli nics Take 10 mg Take 10 mg Take 10 mg by by by injection injection injection route. route. route. dicyclomine dicyclomine No 1 TID dicyclomin [place] 20 mg 20 mg e 20 mg [facility] tablet Take tablet Take tablet ty 1 tablet 3 1 tablet 3 Take 1 [facility] times a day times a day tablet 3 l by oral by oral times a Clinic s route as route as day by needed. needed. oral route as needed. gabapentin gabapentin No 1capsul BID gabapentin [place] 300 mg 300 mg e(s) 300 mg [facility] capsule capsule capsule ty Take 1 Take 1 Take 1 [facility]ospita capsule capsule capsule l twice a day twice a day twice a Clinics by oral by oral day by route. route. oral route. montelukast montelukast No 1 Q1D montelukas [place] 10 mg 10 mg t 10 mg [facility] tablet Take tablet Take tablet ty 1 tablet 1 tablet Take 1 Hospi ta every day every day tablet l by oral by oral every day Clin ics route. route. by oral route. acyclovir 5 acyclovir 5 No acyclovir [place] % topical % topical 5 % Commu [...] Bactrim DS No 1 Q12H Bactrim DS [place] 800 mg-160 800 mg-160 800 mg-160 [facility] mg tablet mg tablet mg tablet ty Take 1 Take 1 Take 1 Hospita tablet tablet tablet l every 12 every 12 every 12 Cli nics hours by hours by hours by oral route oral route oral route for 10 for 10 for 10 days. days. days. diclofenac diclofenac No diclofenac [place] 1 % topical 1 % topical 1 [...] route. valacyclovi valacyclovi No 1 BID valacyclov [place] r 1 gram r 1 gram ir 1 gram [facility] tablet Take tablet Take tablet ty 1 tablet 1 tablet Take 1 Hospi ta twice a day twice a day tablet l by oral by oral twice a Clinic s route. route. day by oral route. acyclovir 5 acyclovir 5 No acyclovir [place] % topical % topical 5 % [facility] ni ointment ointment topical ty APPLY TO APPLY TO ointment [facility] THE THE APPLY TO l AFFECTED AFFECTED THE Clinics AREA EVERY AREA EVERY AFFECTED 2 HOURS 2 HOURS AREA EVERY DURING DURING 2 HOURS AWAKE HOURS AWAKE HOURS DURING FOR 4 DAYS FOR 4 DAYS AWAKE HOURS FOR 4 DAYS diclofenac diclofenac No diclofenac [place] 1 % topical 1 % topical 1 % [facility] gel APPLY 2 gel APPLY 2 topical ty GRAMS GRAMS gel APPLY Hospita TOPICALLY TOPICALLY 2 GRAMS l TO THE TO THE TOPICALLY Clinic s AFFECTED AFFECTED TO THE AREA FOUR AREA FOUR AFFECTED TIMES DAILY TIMES DAILY AREA FOUR TIMES DAILY phenazopyri phenazopyri No phenazopyr [place] dine 200 mg dine 200 mg idine 200 [facility] tablet TAKE tablet TAKE mg tablet ty 1 TABLET BY 1 TABLET BY TAKE 1 [facility]ospita MOUTH EVERY MOUTH EVERY TABLET BY l 8 HOURS 8 HOURS MOUTH Clinics EVERY 8 HOURS sulfamethox sulfamethox No sulfametho [place] azole 800 azole 800 xazole 800 [facility] mg-trimetho mg-trimetho mg-trimeth ty prim 160 mg prim 160 mg oprim 160 [facility]ospita tablet TAKE tablet TAKE mg tablet l 1 TABLET BY 1 TABLET BY TAKE 1 Clinics MOUTH EVERY MOUTH EVERY TABLET BY 12 HOURS 12 HOURS MOUTH FOR 10 DAYS FOR 10 DAYS EVERY 12 HOURS FOR 10 DAYS valacyclovi valacyclovi No valacyclov [place] r 1 gram r 1 gram ir 1 gram [facility] tablet TAKE tablet TAKE tablet ty 1 TABLET BY 1 TABLET BY TAKE 1 [facility]ospita MOUTH TWICE MOUTH TWICE TABLET BY l DAILY DAILY MOUTH Clinics TWICE DAILY acyclovir 5 acyclovir 5 No acyclovir [place] % topical % topical 5 % [facility] ointment ointment topical ty APPLY TO APPLY TO ointment [facility] THE THE APPLY TO l AFFECTED AFFECTED THE Clinics AREA EVERY AREA EVERY AFFECTED 2 HOURS 2 HOURS AREA EVERY DURING DURING 2 HOURS AWAKE HOURS AWAKE HOURS DURING FOR 4 DAYS FOR 4 DAYS AWAKE HOURS FOR 4 DAYS cefuroxime cefuroxime No cefuroxime [place] axetil 500 axetil 500 axetil 500 [facility] mg tablet mg tablet mg tablet ty TAKE 1 TAKE 1 TAKE 1 [facility]ospita TABLET BY TABLET BY TABLET BY l MOUTH EVERY MOUTH EVERY MOUTH Clinics 12 HOURS 12 HOURS EVERY 12 FOR 7 DAYS FOR 7 DAYS HOURS FOR 7 DAYS diclofenac diclofenac No diclofenac [place] 1 % topical 1 % topical 1 % [facility] gel APPLY 2 gel APPLY 2 topical ty GRAMS GRAMS gel APPLY Hospita TOPICALLY TOPICALLY 2 GRAMS l TO THE TO THE TOPICALLY Clinic s AFFECTED AFFECTED TO THE AREA FOUR AREA FOUR AFFECTED TIMES DAILY TIMES DAILY AREA FOUR TIMES DAILY dicyclomine dicyclomine No dicyclomin [place] 20 mg 20 mg e 20 mg [facility] tablet TAKE tablet TAKE tablet ty 1 TABLET BY 1 TABLET BY TAKE 1 Hospita MOUTH 4 MOUTH 4 TABLET BY l TIMES A DAY TIMES A DAY MOUTH 4 Clinics NEEDED NEEDED TIMES A DAY NEEDED phenazopyri phenazopyri No phenazopyr [place] dine 200 mg dine 200 mg idine 200 [facility] tablet TAKE tablet TAKE mg tablet ty 1 TABLET BY 1 TABLET BY TAKE 1 [facility]ospita MOUTH EVERY MOUTH EVERY TABLET BY l 8 HOURS FOR 8 HOURS FOR MOUTH Clinics 2 DAYS 2 DAYS EVERY 8 HOURS FOR 2 DAYS sulfamethox sulfamethox No sulfametho [place] azole 800 azole 800 xazole 800 [facility] mg-trimetho mg-trimetho mg-trimeth ty prim 160 mg prim 160 mg oprim 160 [facility]ospita tablet TAKE tablet TAKE mg tablet l 1 TABLET BY 1 TABLET BY TAKE 1 Clinics MOUTH EVERY MOUTH EVERY TABLET BY 12 HOURS 12 HOURS MOUTH FOR 10 DAYS FOR 10 DAYS EVERY 12 HOURS FOR 10 DAYS valacyclovi valacyclovi No valacyclov [place] r 1 gram r 1 gram ir 1 gram [facility] tablet TAKE tablet TAKE tablet ty 1 TABLET BY 1 TABLET BY TAKE 1 [facility]ospita MOUTH TWICE MOUTH TWICE TABLET BY l DAILY DAILY MOUTH Clinics TWICE DAILY acyclovir 5 acyclovir 5 No acyclovir [place] % topical % topical 5 % [facility] ointment ointment topical ty APPLY TO APPLY TO ointment [facility] THE THE APPLY TO l AFFECTED AFFECTED THE Clinics AREA EVERY AREA EVERY AFFECTED 2 HOURS 2 HOURS AREA EVERY DURING DURING 2 HOURS AWAKE HOURS AWAKE HOURS DURING FOR 4 DAYS FOR 4 DAYS AWAKE HOURS FOR 4 DAYS amoxicillin amoxicillin No amoxicilli [place] 500 500 n 500 [facility] mg-potassiu mg-potassiu [...] FOR 7 DAYS amoxicillin amoxicillin No amoxicilli [place] [id number] n 875 [facility] mg-potassiu mg-potassiu mg-potassi ty m m um [facility]ospita clavulanate clavulanate clavulanat l 125 mg 125 mg e 125 mg Clinics tablet TAKE tablet TAKE tablet 1 TABLET BY 1 TABLET BY TAKE 1 MOUTH TWICE MOUTH TWICE TABLET BY DAILY FOR 7 DAILY FOR 7 MOUTH DAYS DAYS TWICE DAILY FOR 7 DAYS cefuroxime cefuroxime No cefuroxime [place] axetil 500 axetil 500 axetil 500 [facility] mg tablet mg tablet mg tablet ty TAKE 1 TAKE 1 TAKE 1 Hospita TABLET BY TABLET BY TABLET BY l MOUTH EVERY MOUTH EVERY MOUTH Clinics 12 HOURS 12 HOURS EVERY 12 FOR 7 DAYS FOR 7 DAYS HOURS FOR 7 DAYS diclofenac diclofenac No diclofenac [place] 1 % topical 1 % topical 1 % [facility] gel APPLY 2 gel APPLY 2 topical ty GRAMS GRAMS gel APPLY Hospita TOPICALLY TOPICALLY 2 GRAMS l TO THE TO THE TOPICALLY Clinic s AFFECTED AFFECTED TO THE AREA FOUR AREA FOUR AFFECTED TIMES DAILY TIMES DAILY AREA FOUR TIMES DAILY dicyclomine dicyclomine No dicyclomin [place] 20 mg 20 mg e 20 mg [facility] tablet TAKE tablet TAKE tablet ty 1 TABLET BY 1 TABLET BY TAKE 1 Hospita MOUTH 4 MOUTH 4 TABLET BY l TIMES A DAY TIMES A DAY MOUTH 4 Clinics NEEDED NEEDED TIMES A DAY NEEDED estradiol estradiol No estradiol [place] 0.01% (0.1 0.01% (0.1 0.01% (0.1 [facility] mg/gram) mg/gram) mg/gram) ty vaginal vaginal vaginal Hospit a cream cream cream l INSERT 1 INSERT 1 INSERT 1 Cli nics GRAM INTO GRAM INTO GRAM INTO VAGINA VAGINA VAGINA TWICE A TWICE A TWICE A WEEK AT WEEK AT WEEK AT NIGHT. NIGHT. NIGHT. fluconazole fluconazole No fluconazol [place] 150 mg 150 mg e 150 mg [facility] tablet TAKE tablet TAKE tablet ty 1 TABLET BY 1 TABLET BY TAKE 1 [facility]ospita MOUTH EVERY MOUTH EVERY TABLET BY l 72 HOURS 72 HOURS MOUTH Clinic s EVERY 72 HOURS metoprolol metoprolol No metoprolol [place] succinate succinate succinate [facility] ER 25 mg ER 25 mg ER 25 mg ty tablet,exte tablet,exte tablet,ext Hospita nded nded ended l release 24 release 24 release 24 Clinics hr TAKE 1 hr TAKE 1 hr TAKE 1 TABLET BY TABLET BY TABLET BY MOUTH EVERY MOUTH EVERY MOUTH DAY DAY EVERY DAY nitrofurant nitrofurant No nitrofuran [place] oin oin toin [facility] monohydrate monohydrate monohydrat ty /macrocryst /macrocryst e/macrocry Hospita als 100 mg als 100 mg stals 100 l capsule capsule mg capsule Cli nics oxybutynin oxybutynin No oxybutynin [place] chloride ER chloride ER chloride [facility] 5 mg 5 mg ER 5 mg ty tablet,exte tablet,exte tablet,ext Hospita nded nded ended l release 24 release 24 release 24 Clinics hr TAKE 1 hr TAKE 1 hr TAKE 1 TABLET BY TABLET BY TABLET BY MOUTH EVERY MOUTH EVERY MOUTH DAY DAY EVERY DAY phenazopyri phenazopyri No phenazopyr [place] dine 200 mg dine 200 mg idine 200 [facility] tablet TAKE tablet TAKE mg tablet ty 1 TABLET BY 1 TABLET BY TAKE 1 [facility]ospita MOUTH EVERY MOUTH EVERY TABLET BY l 8 HOURS FOR 8 HOURS FOR MOUTH Clinics 2 DAYS 2 DAYS EVERY 8 HOURS FOR 2 DAYS sulfamethox sulfamethox No sulfametho [place] azole 800 azole 800 xazole 800 Communi [...] Suprax 400 No 1capsul Q1D Suprax 400 [place] mg capsule mg capsule e(s) mg capsule [facility] Take 1 Take 1 Take 1 ty capsule capsule capsule Hospit a every day every day every day l by oral by oral by oral Clinic s route for 7 route for 7 route for days. days. 7 days. valacyclovi valacyclovi No valacyclov [place] r 1 gram r 1 gram ir 1 gram [facility] tablet TAKE tablet TAKE tablet ty 1 TABLET BY 1 TABLET BY TAKE 1 [facility]ospita MOUTH TWICE MOUTH TWICE TABLET BY l DAILY DAILY MOUTH Clinics TWICE DAILY acyclovir 5 acyclovir 5 No acyclovir [place] % topical % topical 5 % [facility] ointment ointment topical ty APPLY TO APPLY TO ointment [facility] THE THE APPLY TO l AFFECTED AFFECTED THE Clinics AREA EVERY AREA EVERY AFFECTED 2 HOURS 2 HOURS AREA EVERY DURING DURING 2 HOURS AWAKE HOURS AWAKE HOURS DURING FOR 4 DAYS FOR 4 DAYS AWAKE HOURS FOR 4 DAYS estradiol estradiol No estradiol [place] 0.01% (0.1 0.01% (0.1 0.01% (0.1 [facility] mg/gram) mg/gram) mg/gram) ty vaginal vaginal vaginal Hospit a cream cream cream l INSERT 1 INSERT 1 INSERT 1 Cli nics GRAM INTO GRAM INTO GRAM INTO VAGINA VAGINA VAGINA TWICE A TWICE A TWICE A WEEK AT WEEK AT WEEK AT NIGHT. NIGHT. NIGHT. metoprolol metoprolol No metoprolol [place] succinate succinate succinate [facility] ER 25 mg [...] CR 25 No 1 Q1D Paxil CR [place] mg mg 25 mg [facility] tablet,exte tablet,exte tablet,ext ty nded nded ended Hospita release release release l Take 1 Take 1 Take 1 Clinics tablet tablet tablet every day every day every day by oral by oral by oral route. route. route. Suprax 400 Suprax 400 No 1capsul Q1D Suprax 400 [place] mg capsule mg capsule e(s) mg capsule [...] HOURS 5 days valacyclovi valacyclovi No valacyclov [place] r 1 gram r 1 gram ir 1 gram [facility] tablet TAKE tablet TAKE tablet ty 1 TABLET BY 1 TABLET BY TAKE 1 [facility]ospita MOUTH TWICE MOUTH TWICE TABLET BY l DAILY DAILY MOUTH Clinics TWICE DAILY Zithromax Zithromax No Zithromax [place] Z-Andrew 250 Z-Andrew 250 Z-Andrew 250 Communi [...] DAYS acyclovir 5 acyclovir 5 No acyclovir [place] % topical % topical 5 % Com[facility] ni ointment ointment topical ty APPLY TO APPLY TO ointment [facility] THE THE APPLY TO l AFFECTED AFFECTED THE Clinics AREA EVERY AREA EVERY AFFECTED 2 HOURS 2 HOURS AREA EVERY DURING DURING 2 HOURS AWAKE HOURS AWAKE HOURS DURING FOR 4 DAYS FOR 4 DAYS AWAKE HOURS FOR 4 DAYS estradiol estradiol No estradiol [place] 0.01% (0.1 0.01% (0.1 0.01% (0.1 [facility] mg/gram) mg/gram) mg/gram) ty vaginal vaginal vaginal Hospit a cream cream cream l INSERT 1 INSERT 1 INSERT 1 Cli nics GRAM INTO GRAM INTO GRAM INTO VAGINA VAGINA VAGINA TWICE A TWICE A TWICE A WEEK AT WEEK AT WEEK AT NIGHT. NIGHT. NIGHT. fluconazole fluconazole No fluconazol [place] 150 mg 150 mg e 150 mg [facility] tablet tablet tablet ty Hospita l Clinics hydroxyzine hydroxyzine No 1 TID hydroxyzin [place] HCl 25 mg HCl 25 mg e [...] Kenalog 40 No 60mg Q1D Kenalog 40 [place] mg/mL mg/mL mg/mL [facility] suspension suspension suspension ty for for for Hospita injection injection injection l Take 60 mg Take 60 mg Take 60 mg Clinics every day every day every day by by by injection injection injection route. route. route. metoprolol metoprolol No metoprolol [place] succinate succinate succinate [facility] ER 25 mg ER 25 mg ER 25 mg ty tablet,exte tablet,exte tablet,ext Hospita nded nded ended l release 24 release 24 release 24 Clinics hr TAKE 1 hr TAKE 1 hr TAKE 1 TABLET BY TABLET BY TABLET BY MOUTH EVERY MOUTH EVERY MOUTH DAY DAY EVERY DAY omeprazole omeprazole No omeprazole [place] 20 mg 20 mg 20 mg [facility] capsule,del capsule,del capsule,de ty ayed ayed layed [facility]ospita release release release l TAKE 1 TAKE 1 TAKE 1 Clinics CAPSULE BY CAPSULE BY CAPSULE BY MOUTH DAILY MOUTH DAILY MOUTH DAILY paroxetine paroxetine No paroxetine [place] ER 25 mg ER 25 mg ER 25 mg Com ricci tablet,exte tablet,exte tablet,ext ty nded nded ended Hospita release 24 release 24 release 24 l hr TAKE 1 hr TAKE 1 hr TAKE 1 Clinics TABLET BY TABLET BY TABLET BY MOUTH EVERY MOUTH EVERY MOUTH DAY DAY EVERY DAY tobramycin tobramycin No tobramycin [place] 0.3 0.3 0.3 [facility] %-dexametha %-dexametha %-dexameth [...] FOR 5 DAYS triamcinolo triamcinolo No triamcinol [place] ne ne one [facility] acetonide acetonide acetonide [...] days days days trimethopri trimethopri No trimethopr [place] m 100 mg m 100 mg im 100 mg [facility] tablet TAKE tablet TAKE tablet ty 1 TABLET BY 1 TABLET BY TAKE 1 [facility]ospita MOUTH EVERY MOUTH EVERY TABLET BY l DAY DAY MOUTH Clinics EVERY DAY valacyclovi valacyclovi No valacyclov [place] r 1 gram r 1 gram ir 1 gram [facility] tablet TAKE tablet TAKE tablet ty 1 TABLET BY 1 TABLET BY TAKE 1 [facility]ospita MOUTH TWICE MOUTH TWICE TABLET BY l DAILY prn DAILY prn MOUTH Clin ics TWICE DAILY prn acyclovir 5 acyclovir 5 No acyclovir [place] % topical % topical 5 % Commu [...] DAYS Augmentin Augmentin No 1 Q12H Augmentin [place] 500 mg-125 500 mg-125 500 mg-125 [facility] mg tablet mg tablet mg tablet ty Take 1 Take 1 Take 1 [facility]ospita tablet tablet tablet l every 12 every 12 every 12 Cli nics hours by hours by hours by oral route oral route oral route for 10 for 10 for 10 days. days. days. cephalexin cephalexin No cephalexin [place] 500 mg 500 mg 500 mg [facility] capsule capsule capsule ty TAKE 1 TAKE 1 TAKE 1 [facility]ospita CAPSULE BY CAPSULE BY CAPSULE BY l MOUTH TWICE MOUTH TWICE MOUTH Clinics DAILY DAILY TWICE DAILY estradiol estradiol No estradiol [place] 0.01% (0.1 0.01% (0.1 0.01% (0.1 [facility] mg/gram) mg/gram) mg/gram) ty vaginal vaginal vaginal Hospit a cream cream cream l INSERT 1 INSERT 1 INSERT 1 Cli nics GRAM INTO GRAM INTO GRAM INTO VAGINA VAGINA VAGINA TWICE A TWICE A TWICE A WEEK AT WEEK AT WEEK AT NIGHT. NIGHT. NIGHT. fluconazole fluconazole No fluconazol [place] 150 mg 150 mg e 150 mg [facility] tablet tablet tablet ty [facility]osp[facility] l Clinics hydroxyzine hydroxyzine No hydroxyzin [place] HCl 25 mg HCl 25 mg e [...] Kenalog 40 No 60mg Q1D Kenalog 40 [place] mg/mL mg/mL mg/mL [facility] suspension suspension suspension ty for for for Hospita injection injection injection l Take 60 mg Take 60 mg Take 60 mg Clinics every day every day every day by by by injection injection injection route. route. route. metoprolol metoprolol No metoprolol [place] succinate succinate succinate [facility] ER 25 mg ER 25 mg ER 25 mg ty tablet,exte tablet,exte tablet,ext Hospita nded nded ended l release 24 release 24 release 24 Clinics hr TAKE 1 hr TAKE 1 hr TAKE 1 TABLET BY TABLET BY TABLET BY MOUTH EVERY MOUTH EVERY MOUTH DAY DAY EVERY DAY metronidazo metronidazo No 1 Q8H metronidaz [place] le 500 mg le 500 mg ole 500 mg [facility] tablet Take tablet Take tablet ty 1 tablet 1 tablet Take 1 Hospi ta every 8 every 8 tablet l hours by hours by every 8 Clin ics oral route oral route hours by for 7 days. for 7 days. oral route for 7 days. omeprazole omeprazole No omeprazole [place] 20 mg 20 mg 20 mg [facility] capsule,del capsule,del capsule,de ty ayed ayed layed [facility]osp[facility] release release release l TAKE 1 TAKE 1 TAKE 1 Clinics CAPSULE BY CAPSULE BY CAPSULE BY MOUTH DAILY MOUTH DAILY MOUTH DAILY ondansetron ondansetron No 1 Q6H ondansetro [place] 4 mg 4 mg n 4 mg [...] for 6 days. paroxetine paroxetine No paroxetine [place] ER 25 mg ER 25 mg ER 25 mg Com ricci tablet,exte tablet,exte tablet,ext ty nded nded ended [facility]ospita release 24 release 24 release 24 l hr TAKE 1 hr TAKE 1 hr TAKE 1 Clinics TABLET BY TABLET BY TABLET BY MOUTH EVERY MOUTH EVERY MOUTH DAY DAY EVERY DAY tobramycin tobramycin No tobramycin [place] 0.3 0.3 0.3 [facility] %-dexametha %-dexametha %-dexameth [...] FOR 5 DAYS triamcinolo triamcinolo No triamcinol [place] ne ne one [facility] acetonide acetonide acetonide [...] FOR 7 DAYS trimethopri trimethopri No trimethopr [place] m 100 mg m 100 mg im 100 mg [facility] tablet TAKE tablet TAKE tablet ty 1 TABLET BY 1 TABLET BY TAKE 1 [facility]ospita MOUTH EVERY MOUTH EVERY TABLET BY l DAY DAY MOUTH Clinics EVERY DAY valacyclovi valacyclovi No valacyclov [place] r 1 gram r 1 gram ir 1 gram [facility] tablet TAKE tablet TAKE tablet ty 1 TABLET BY 1 TABLET BY TAKE 1 [facility]ospita MOUTH TWICE MOUTH TWICE TABLET BY l DAILY prn DAILY prn MOUTH Clin ics TWICE DAILY prn acyclovir 5 acyclovir 5 No acyclovir [place] % topical % topical 5 % Com[facility] ni ointment ointment topical ty APPLY TO APPLY TO ointment [facility] THE THE APPLY TO l AFFECTED AFFECTED THE Clinics AREA EVERY AREA EVERY AFFECTED 2 HOURS 2 HOURS AREA EVERY DURING DURING 2 HOURS AWAKE HOURS AWAKE HOURS DURING FOR 4 DAYS FOR 4 DAYS AWAKE HOURS FOR 4 DAYS amoxicillin amoxicillin No amoxicilli [place] 500 500 n 500 [facility] mg-potassiu mg-potassiu [...] DAYS benzonatate benzonatate No 1capsul TID benzonatat [place] 100 mg 100 mg e(s) e 100 [...] DIRECTED Clinics TODAY cephalexin cephalexin No cephalexin [place] 500 mg 500 mg 500 mg [facility] capsule capsule capsule ty TAKE 1 TAKE 1 TAKE 1 [facility]ospita CAPSULE BY CAPSULE BY CAPSULE BY l MOUTH TWICE MOUTH TWICE MOUTH Clinics DAILY DAILY TWICE DAILY estradiol estradiol No estradiol [place] 0.01% (0.1 0.01% (0.1 0.01% (0.1 [facility] mg/gram) mg/gram) mg/gram) ty vaginal vaginal vaginal Hospit a cream cream cream l INSERT 1 INSERT 1 INSERT 1 Cli nics GRAM INTO GRAM INTO GRAM INTO VAGINA VAGINA VAGINA TWICE A TWICE A TWICE A WEEK AT WEEK AT WEEK AT NIGHT. NIGHT. NIGHT. fluconazole fluconazole No fluconazol [place] 150 mg 150 mg e 150 mg [facility] tablet tablet tablet ty [facility]osp[facility] l Clinics hydroxyzine hydroxyzine No hydroxyzin [place] HCl 25 mg HCl 25 mg e [...] Kenalog 40 No 60mg Q1D Kenalog 40 [place] mg/mL mg/mL mg/mL [facility] suspension suspension suspension ty for for for Hospita injection injection injection l Take 60 mg Take 60 mg Take 60 mg Clinics every day every day every day by by by injection injection injection route. route. route. meloxicam meloxicam No 1 Q1D meloxicam [place] 15 mg 15 mg 15 mg [facility] tablet Take tablet Take tablet ty 1 tablet 1 tablet Take 1 Hospi ta every day every day tablet l by oral by oral every day Clin ics route for route for by oral 30 days. 30 days. route for 30 days. metoprolol metoprolol No metoprolol [place] succinate succinate succinate [facility] ER 25 mg ER 25 mg ER 25 mg ty tablet,exte tablet,exte tablet,ext Hospita nded nded ended l release 24 release 24 release 24 Clinics hr TAKE 1 hr TAKE 1 hr TAKE 1 TABLET BY TABLET BY TABLET BY MOUTH EVERY MOUTH EVERY MOUTH DAY DAY EVERY DAY metronidazo metronidazo No metronidaz [place] le 500 mg le 500 mg ole 500 mg [facility] tablet TAKE tablet TAKE tablet ty 1 TABLET BY 1 TABLET BY TAKE 1 Hospita MOUTH EVERY MOUTH EVERY TABLET BY l 8 HOURS FOR 8 HOURS FOR MOUTH Clinics 7 DAYS 7 DAYS EVERY 8 HOURS FOR 7 DAYS omeprazole omeprazole No omeprazole [place] 20 mg 20 mg 20 mg [facility] capsule,del capsule,del capsule,de ty ayed ayed layed [facility] release release release l TAKE 1 TAKE 1 TAKE 1 Clinics CAPSULE BY CAPSULE BY CAPSULE BY MOUTH DAILY MOUTH DAILY MOUTH DAILY ondansetron ondansetron No ondansetro [place] 4 mg 4 mg n 4 mg [...] 6 DAYS NEEDED paroxetine paroxetine No paroxetine [facility] ER 25 mg ER 25 mg ER 25 mg Com ricci tablet,exte tablet,exte tablet,ext ty nded nded ended [facility]osp[facility] release 24 release 24 release 24 l hr TAKE 1 hr TAKE 1 hr TAKE 1 Clinics TABLET BY TABLET BY TABLET BY MOUTH EVERY MOUTH EVERY MOUTH DAY DAY EVERY DAY tobramycin tobramycin No tobramycin [place] 0.3 0.3 0.3 [facility] %-dexametha %-dexametha %-dexameth [...] DAYS tramadol 50 tramadol 50 No tramadol [place] mg tablet mg tablet 50 mg Comm uni tablet ty [facility] l Clinics triamcinolo triamcinolo No triamcinol [place] ne ne one [facility] acetonide acetonide acetonide [...] FOR 7 DAYS trimethopri trimethopri No trimethopr [place] m 100 mg m 100 mg im 100 mg [facility] tablet TAKE tablet TAKE tablet ty 1 TABLET BY 1 TABLET BY TAKE 1 [facility]osp[facility] MOUTH EVERY MOUTH EVERY TABLET BY l DAY DAY MOUTH Clinics EVERY DAY valacyclovi valacyclovi No valacyclov [place] r 1 gram r 1 gram ir 1 gram [facility] tablet TAKE tablet TAKE tablet ty 1 TABLET BY 1 TABLET BY TAKE 1 [facility] MOUTH TWICE MOUTH TWICE TABLET BY l DAILY prn DAILY prn MOUTH Clin ics TWICE DAILY prn Zithromax Zithromax No Zithromax [place] Z-Andrew 250 Z-Andrew 250 Z-Andrew 250 Communi [...] DAYS cetirizine cetirizine No 1 Q1D cetirizine [place] 10 mg 10 mg 10 mg [facility] tablet Take tablet Take tablet ty 1 tablet 1 tablet Take 1 Hospi ta every day every day tablet l by oral by oral every day Clin ics route at route at by oral bedtime. bedtime. route at bedtime. estradiol estradiol No estradiol [place] 0.01% (0.1 0.01% (0.1 0.01% (0.1 [facility] mg/gram) mg/gram) mg/gram) ty vaginal vaginal vaginal Hospit a cream cream cream l INSERT 1 INSERT 1 INSERT 1 Cli nics GRAM INTO GRAM INTO GRAM INTO VAGINA VAGINA VAGINA TWICE A TWICE A TWICE A WEEK AT WEEK AT WEEK AT NIGHT. NIGHT. NIGHT. fluticasone fluticasone No 1spray( Q1D fluticason [place] propionate propionate s) e Com ricci 50 50 propionate ty mcg/actuati mcg/actuati 50 [facility] on nasal on nasal mcg/actuat l spray,suspe spray,suspe ion nasal Clinics nsion Tibbie nsion Tibbie spray,susp 1 spray 1 spray ension every day every day Tibbie 1 by by spray intranasal intranasal every day route. route. by intranasal route. meclizine meclizine No 1 TID meclizine [place] 25 mg 25 mg 25 mg [facility] tablet Take tablet Take tablet ty 1 tablet 3 1 tablet 3 Take 1 [facility] times a day times a day tablet 3 l by oral by oral times a Clinic s route as route as day by needed. needed. oral route as needed. ondansetron ondansetron No ondansetro [place] 4 mg 4 mg n 4 mg [...] NEEDED propranolol propranolol No 1 TID propranolo [place] 10 mg 10 mg l 10 mg [facility] tablet Take tablet Take tablet ty 1 tablet 3 1 tablet 3 Take 1 [facility] times a day times a day tablet 3 l by oral by oral times a Clinic s route as route as day by needed. needed. oral route as needed. azelastine azelastine No azelastine [place] 205.5 mcg 205.5 mcg 205.5 mcg [facility] (0.15 %) (0.15 %) (0.15 %) ty nasal spray nasal spray nasal [facility] 1 SPRAY TO 1 SPRAY TO spray 1 l EACH EACH SPRAY TO Clinics NOSTRIL NOSTRIL EACH TWICE DAILY TWICE DAILY NOSTRIL TWICE DAILY azithromyci azithromyci No azithromyc [place] n 250 mg n 250 mg in 250 mg [facility] tablet tablet tablet ty [facility] l Clinics cetirizine cetirizine No cetirizine [place] 10 mg 10 mg 10 mg [facility] tablet TAKE tablet TAKE tablet ty 1 TABLET BY 1 TABLET BY TAKE 1 [facility] MOUTH EVERY MOUTH EVERY TABLET BY l NIGHT AT NIGHT AT MOUTH Clinic s BEDTIME BEDTIME EVERY NIGHT AT BEDTIME estradiol estradiol No estradiol [place] 0.01% (0.1 0.01% (0.1 0.01% (0.1 [facility] mg/gram) mg/gram) mg/gram) ty vaginal vaginal vaginal Hospit a cream cream cream l INSERT 1 INSERT 1 INSERT 1 Cli nics GRAM INTO GRAM INTO GRAM INTO VAGINA VAGINA VAGINA TWICE A TWICE A TWICE A WEEK AT WEEK AT WEEK AT NIGHT. NIGHT. NIGHT. fluticasone fluticasone No fluticason [place] propionate propionate e Com ricci 50 50 [...] NOSTRIL EVERY DAY hydroxyzine hydroxyzine No hydroxyzin [place] HCl 25 mg HCl 25 mg e HCl 25 [facility] tablet TAKE tablet TAKE mg tablet ty 1 TABLET BY 1 TABLET BY TAKE 1 [facility] MOUTH EVERY MOUTH EVERY TABLET BY l 6 HOURS 6 HOURS MOUTH Cl inics NEEDED NEEDED EVERY 6 HOURS NEEDED meclizine meclizine No 1 TID meclizine [place] 25 mg 25 mg 25 mg [facility] tablet Take tablet Take tablet ty 1 tablet 3 1 tablet 3 Take 1 [facility] times a day times a day tablet 3 l by oral by oral times a Clinic s route as route as day by needed. needed. oral route as needed. Medrol Medrol No 1dose Medrol [place] (Andrew) 4 mg (Andrew) 4 mg pk(s) (Andrew) 4 mg [facility] tablets in tablets in tablets in ty a dose pack a dose pack a dose [facility]osp[facility] Take 1 dose Take 1 dose pack Take l pk by oral pk by oral 1 dose pk Clinics route as route as by oral directed. directed. route as directed. ondansetron ondansetron No ondansetro [place] 4 mg 4 mg n 4 mg [facility] disintegrat disintegrat disintegra ty ing tablet ing tablet ting [facility] DISSOLVE 1 DISSOLVE 1 tablet l TABLET ON TABLET ON DISSOLVE 1 Clinics THE TOUNGE THE TOUNGE TABLET ON EVERY 8 EVERY 8 THE TOUNGE HOURS HOURS EVERY 8 NEEDED NEEDED HOURS NEEDED propranolol propranolol No propranolo [place] 10 mg 10 mg l 10 mg [facility] tablet TAKE tablet TAKE tablet ty 1 TABLET BY 1 TABLET BY TAKE 1 [facility] MOUTH THREE MOUTH THREE TABLET BY l TIMES DAILY TIMES DAILY MOUTH Clinics NEEDED NEEDED THREE TIMES DAILY NEEDED azelastine azelastine No azelastine [place] 205.5 mcg 205.5 mcg 205.5 mcg [facility] (0.15 %) (0.15 %) (0.15 %) ty nasal spray nasal spray nasal [facility] USE 1 SPRAY USE 1 SPRAY spray USE l IN EACH IN EACH 1 SPRAY IN Cli nics NOSTRIL NOSTRIL EACH TWICE DAILY TWICE DAILY NOSTRIL TWICE DAILY estradiol estradiol No estradiol [place] 0.01% (0.1 0.01% (0.1 0.01% (0.1 [facility] mg/gram) mg/gram) mg/gram) ty vaginal vaginal vaginal Hospit a cream cream cream l INSERT 1 INSERT 1 INSERT 1 Cli nics GRAM INTO GRAM INTO GRAM INTO VAGINA VAGINA VAGINA TWICE A TWICE A TWICE A WEEK AT WEEK AT WEEK AT NIGHT. NIGHT. NIGHT. fluticasone fluticasone No fluticason [place] propionate propionate e Com ricci 50 50 [...] DAY hydroxyzine hydroxyzine No 1 BID hydroxyzin [place] HCl 25 mg HCl 25 mg e HCl 25 [facility] tablet Take tablet Take mg tablet ty 1 tablet 1 tablet Take 1 Hospi ta twice a day twice a day tablet l by oral by oral twice a Clinic s route as route as day by needed. needed. oral route as needed. hyoscyamine hyoscyamine No hyoscyamin [place] sulfate sulfate e sulfate Comm [facility] 0.125 mg 0.125 mg 0.125 mg ty tablet TAKE tablet TAKE tablet [facility] 1 TABLET BY 1 TABLET BY TAKE 1 l MOUTH EVERY MOUTH EVERY TABLET BY Clinics 8 HOURS 8 HOURS MOUTH EVERY 8 HOURS levothyroxi levothyroxi No 1 Q1D levothyrox [place] ne 25 mcg ne 25 mcg ine 25 mcg [facility] tablet Take tablet Take tablet ty 1 tablet 1 tablet Take 1 Hospi ta every day every day tablet l by oral by oral every day Clin ics route. route. by oral route. meclizine meclizine No 1 TID meclizine [place] 25 mg 25 mg 25 mg [facility] tablet Take tablet Take tablet ty 1 tablet 3 1 tablet 3 Take 1 [facility] times a day times a day tablet 3 l by oral by oral times a Clinic s route as route as day by needed. needed. oral route as needed. venlafaxine venlafaxine No 1capsul Q1D venlafaxin [place] ER 37.5 mg ER 37.5 mg e(s) e ER 37.5 [facility] capsule,ext capsule,ext mg t y ended ended capsule,ex [facility]osp[facility] release 24 release 24 tended l hr Take 1 hr Take 1 release 24 Clinics capsule capsule hr Take 1 every day every day capsule by oral by oral every day route. route. by oral route. azelastine azelastine No azelastine [place] 205.5 mcg 205.5 mcg 205.5 mcg [facility] (0.15 %) (0.15 %) (0.15 %) ty nasal spray nasal spray nasal [facility] USE 1 SPRAY USE 1 SPRAY spray USE l IN EACH IN EACH 1 SPRAY IN Cli nics NOSTRIL NOSTRIL EACH TWICE DAILY TWICE DAILY NOSTRIL TWICE DAILY estradiol estradiol No estradiol [place] 0.01% (0.1 0.01% (0.1 0.01% (0.1 [facility] mg/gram) mg/gram) mg/gram) ty vaginal vaginal vaginal Hospit a cream cream cream l INSERT 1 INSERT 1 INSERT 1 Cli nics GRAM INTO GRAM INTO GRAM INTO VAGINA VAGINA VAGINA TWICE A TWICE A TWICE A WEEK AT WEEK AT WEEK AT NIGHT. NIGHT. NIGHT. fluticasone fluticasone No fluticason [place] propionate propionate e Com ricci 50 50 [...] DAY hydroxyzine hydroxyzine No 1 BID hydroxyzin [place] HCl 25 mg HCl 25 mg e HCl 25 [facility] tablet Take tablet Take mg tablet ty 1 tablet 1 tablet Take 1 Hospi ta twice a day twice a day tablet l by oral by oral twice a Clinic s route as route as day by needed. needed. oral route as needed. hyoscyamine hyoscyamine No hyoscyamin [place] sulfate sulfate e sulfate Comm [facility] 0.125 mg 0.125 mg 0.125 mg ty tablet TAKE tablet TAKE tablet [facility] 1 TABLET BY 1 TABLET BY TAKE 1 l MOUTH EVERY MOUTH EVERY TABLET BY Clinics 8 HOURS 8 HOURS MOUTH EVERY 8 HOURS levothyroxi levothyroxi No 1 Q1D levothyrox [place] ne 25 mcg ne 25 mcg ine 25 mcg [facility] tablet Take tablet Take tablet ty 1 tablet 1 tablet Take 1 Hospi ta every day every day tablet l by oral by oral every day Clin ics route. route. by oral route. meclizine meclizine No 1 TID meclizine [place] 25 mg 25 mg 25 mg [facility] tablet Take tablet Take tablet ty 1 tablet 3 1 tablet 3 Take 1 [facility] times a day times a day tablet 3 l by oral by oral times a Clinic s route as route as day by needed. needed. oral route as needed. venlafaxine venlafaxine No 1capsul Q1D venlafaxin [place] ER 37.5 mg ER 37.5 mg e(s) e ER 37.5 [facility] capsule,ext capsule,ext mg t y ended ended capsule,ex [facility] release 24 release 24 tended l hr Take 1 hr Take 1 release 24 Clinics capsule capsule hr Take 1 every day every day capsule by oral by oral every day route. route. by oral route. azelastine azelastine No azelastine [place] 205.5 mcg 205.5 mcg 205.5 mcg [facility] (0.15 %) (0.15 %) (0.15 %) ty nasal spray nasal spray nasal [facility] USE 1 SPRAY USE 1 SPRAY spray USE l IN EACH IN EACH 1 SPRAY IN Cli nics NOSTRIL NOSTRIL EACH TWICE DAILY TWICE DAILY NOSTRIL TWICE DAILY buspirone 5 buspirone 5 No 1 BID buspirone [place] mg tablet mg tablet 5 mg Commu ni Take 1 Take 1 tablet ty tablet tablet Take 1 [facility]osp[facility] twice a day twice a day tablet l by oral by oral twice a Clinic s route for route for day by 30 days. 30 days. oral route for 30 days. dicyclomine dicyclomine No dicyclomin [place] 20 mg 20 mg e 20 mg [...] CRAMPS OR DISCOMFORT estradiol estradiol No estradiol [place] 0.01% (0.1 0.01% (0.1 0.01% (0.1 [facility] mg/gram) mg/gram) mg/gram) ty vaginal vaginal vaginal Hospit a cream cream cream l INSERT 1 INSERT 1 INSERT 1 Cli nics GRAM INTO GRAM INTO GRAM INTO VAGINA VAGINA VAGINA TWICE A TWICE A TWICE A WEEK AT WEEK AT WEEK AT NIGHT. NIGHT. NIGHT. famotidine famotidine No famotidine [place] 20 mg 20 mg 20 mg [facility] tablet TAKE tablet TAKE tablet ty 1 TABLET BY 1 TABLET BY TAKE 1 [facility] MOUTH EVERY MOUTH EVERY TABLET BY l 12 HOURS 12 HOURS MOUTH Clinic s EVERY 12 HOURS fluticasone fluticasone No fluticason [place] propionate propionate e Com ricci 50 50 [...] NOSTRIL EVERY DAY hyoscyamine hyoscyamine No hyoscyamin [place] sulfate sulfate e sulfate Comm uni 0.125 mg 0.125 mg 0.125 mg ty tablet TAKE tablet TAKE tablet [facility] 1 TABLET BY 1 TABLET BY TAKE 1 l MOUTH EVERY MOUTH EVERY TABLET BY Clinics 8 HOURS 8 HOURS MOUTH EVERY 8 HOURS levothyroxi levothyroxi No levothyrox [place] ne 25 mcg ne 25 mcg ine 25 mcg [facility] tablet TAKE tablet TAKE tablet ty 1 TABLET BY 1 TABLET BY TAKE 1 [facility] MOUTH EVERY MOUTH EVERY TABLET BY l DAY DAY MOUTH Clinics EVERY DAY meclizine meclizine No 1 TID meclizine [place] 25 mg 25 mg 25 mg [facility] tablet Take tablet Take tablet ty 1 tablet 3 1 tablet 3 Take 1 [facility] times a day times a day tablet 3 l by oral by oral times a Clinic s route as route as day by needed. needed. oral route as needed. ondansetron ondansetron No ondansetro [place] 4 mg 4 mg n 4 mg [facility] disintegrat disintegrat disintegra ty ing tablet ing tablet ting [facility] DISSOLVE 1 DISSOLVE 1 tablet l TO 2 TO 2 DISSOLVE 1 [facility] TABLETS TABLETS TO 2 UNDER THE UNDER THE TABLETS TONGUE TONGUE UNDER THE EVERY 6 EVERY 6 TONGUE HOURS FOR 5 HOURS FOR 5 EVERY 6 DAYS DAYS HOURS FOR NEEDED FOR NEEDED FOR 5 DAYS NAUSEA NAUSEA NEEDED FOR NAUSEA Xanax 0.25 Xanax 0.25 No 1 BID Xanax 0.25 [place] mg tablet mg tablet mg tablet [facility] Take 1 Take 1 Take 1 ty tablet tablet tablet [facility]osp[facility] twice a day twice a day twice a l by oral by oral day by Clinics route for route for oral route 14 days. 14 days. for 14 days. azelastine azelastine No azelastine [place] 205.5 mcg 205.5 mcg 205.5 mcg [facility] (0.15 %) (0.15 %) (0.15 %) ty nasal spray nasal spray nasal [facility] USE 1 SPRAY USE 1 SPRAY spray USE l IN EACH IN EACH 1 SPRAY IN Cli nics NOSTRIL NOSTRIL EACH TWICE DAILY TWICE DAILY NOSTRIL TWICE DAILY buspirone 5 buspirone 5 No 1 BID buspirone [place] mg tablet mg tablet 5 mg Commu ni Take 1 Take 1 tablet ty tablet tablet Take 1 [facility]osp[facility] twice a day twice a day tablet l by oral by oral twice a Clinic s route for route for day by 30 days. 30 days. oral route for 30 days. dicyclomine dicyclomine No dicyclomin [place] 20 mg 20 mg e 20 mg [...] CRAMPS OR DISCOMFORT estradiol estradiol No estradiol [place] 0.01% (0.1 0.01% (0.1 0.01% (0.1 [facility] mg/gram) mg/gram) mg/gram) ty vaginal vaginal vaginal Hospit a cream cream cream l INSERT 1 INSERT 1 INSERT 1 Cli nics GRAM INTO GRAM INTO GRAM INTO VAGINA VAGINA VAGINA TWICE A TWICE A TWICE A WEEK AT WEEK AT WEEK AT NIGHT. NIGHT. NIGHT. famotidine famotidine No famotidine [place] 20 mg 20 mg 20 mg [facility] tablet TAKE tablet TAKE tablet ty 1 TABLET BY 1 TABLET BY TAKE 1 [facility] MOUTH EVERY MOUTH EVERY TABLET BY l 12 HOURS 12 HOURS MOUTH Clinic s EVERY 12 HOURS fluticasone fluticasone No fluticason [place] propionate propionate e Com ricci 50 50 [...] NOSTRIL EVERY DAY hyoscyamine hyoscyamine No hyoscyamin [place] sulfate sulfate e sulfate Comm uni 0.125 mg 0.125 mg 0.125 mg ty tablet TAKE tablet TAKE tablet [facility] 1 TABLET BY 1 TABLET BY TAKE 1 l MOUTH EVERY MOUTH EVERY TABLET BY Clinics 8 HOURS 8 HOURS MOUTH EVERY 8 HOURS levothyroxi levothyroxi No levothyrox [place] ne 25 mcg ne 25 mcg ine 25 mcg [facility] tablet TAKE tablet TAKE tablet ty 1 TABLET BY 1 TABLET BY TAKE 1 [facility] MOUTH EVERY MOUTH EVERY TABLET BY l DAY DAY MOUTH Clinics EVERY DAY meclizine meclizine No 1 TID meclizine [place] 25 mg 25 mg 25 mg [facility] tablet Take tablet Take tablet ty 1 tablet 3 1 tablet 3 Take 1 [facility] times a day times a day tablet 3 l by oral by oral times a Clinic s route as route as day by needed. needed. oral route as needed. ondansetron ondansetron No ondansetro [place] 4 mg 4 mg n 4 mg [...] Xanax 0.25 No 1 BID Xanax 0.25 [place] mg tablet mg tablet mg tablet [facility] Take 1 Take 1 Take 1 ty tablet tablet tablet [facility]osp[facility] twice a day twice a day twice a l by oral by oral day by Clinics route for route for oral route 14 days. 14 days. for 14 days. alprazolam alprazolam No alprazolam [place] 0.25 mg 0.25 mg 0.25 mg Commun i tablet TAKE tablet TAKE tablet ty 1 TABLET BY 1 TABLET BY TAKE 1 [facility] MOUTH TWICE MOUTH TWICE TABLET BY l DAILY FOR DAILY FOR MOUTH Clin ics 14 DAYS 14 DAYS TWICE DAILY FOR 14 DAYS azelastine azelastine No azelastine [place] 205.5 mcg 205.5 mcg 205.5 mcg [facility] (0.15 %) (0.15 %) (0.15 %) ty nasal spray nasal spray nasal [facility] USE 1 SPRAY USE 1 SPRAY spray USE l IN EACH IN EACH 1 SPRAY IN Cli nics NOSTRIL NOSTRIL EACH TWICE DAILY TWICE DAILY NOSTRIL TWICE DAILY buspirone 5 buspirone 5 No buspirone [place] mg tablet mg tablet 5 mg Commu ni TAKE 1 TAKE 1 tablet ty TABLET BY TABLET BY TAKE 1 [facility] MOUTH TWICE MOUTH TWICE TABLET BY l DAILY DAILY MOUTH Clinics TWICE DAILY estradiol estradiol No estradiol [place] 0.01% (0.1 0.01% (0.1 0.01% (0.1 [facility] mg/gram) mg/gram) mg/gram) ty vaginal vaginal vaginal Hospit a cream cream cream l INSERT 1 INSERT 1 INSERT 1 Cli nics GRAM INTO GRAM INTO GRAM INTO VAGINA VAGINA VAGINA TWICE A TWICE A TWICE A WEEK AT WEEK AT WEEK AT NIGHT. NIGHT. NIGHT. fluticasone fluticasone No fluticason [place] propionate propionate e Com ricci 50 50 [...] NOSTRIL EVERY DAY hyoscyamine hyoscyamine No hyoscyamin [place] sulfate sulfate e sulfate Comm uni 0.125 mg 0.125 mg 0.125 mg ty tablet TAKE tablet TAKE tablet [facility] 1 TABLET BY 1 TABLET BY TAKE 1 l MOUTH EVERY MOUTH EVERY TABLET BY Clinics 8 HOURS 8 HOURS MOUTH EVERY 8 HOURS levothyroxi levothyroxi No levothyrox [place] ne 25 mcg ne 25 mcg ine 25 mcg [facility] tablet TAKE tablet TAKE tablet ty 1 TABLET BY 1 TABLET BY TAKE 1 [facility] MOUTH EVERY MOUTH EVERY TABLET BY l DAY DAY MOUTH Clinics EVERY DAY meclizine meclizine No 1 TID meclizine [place] 25 mg 25 mg 25 mg [facility] tablet Take tablet Take tablet ty 1 tablet 3 1 tablet 3 Take 1 [facility] times a day times a day tablet 3 l by oral by oral times a Clinic s route as route as day by needed. needed. oral route as needed. ondansetron ondansetron No ondansetro [place] 4 mg 4 mg n 4 mg [...] NAUSEA valacyclovi valacyclovi No 1 TID valacyclov [place] r 1 gram r 1 gram ir [...] days. Xifaxan 550 Xifaxan 550 No Xifaxan [place] mg tablet mg tablet 550 mg Com ricci tablet ty [facility] l Clinics alprazolam alprazolam No alprazolam [place] 0.25 mg 0.25 mg 0.25 mg Commun i tablet TAKE tablet TAKE tablet ty 1 TABLET BY 1 TABLET BY TAKE 1 [facility] MOUTH TWICE MOUTH TWICE TABLET BY l DAILY FOR DAILY FOR MOUTH Clin ics 14 DAYS 14 DAYS TWICE DAILY FOR 14 DAYS azelastine azelastine No azelastine [place] 205.5 mcg 205.5 mcg 205.5 mcg [facility] (0.15 %) (0.15 %) (0.15 %) ty nasal spray nasal spray nasal [facility]osp[facility] USE 1 SPRAY USE 1 SPRAY spray USE l IN EACH IN EACH 1 SPRAY IN Cli nics NOSTRIL NOSTRIL EACH TWICE DAILY TWICE DAILY NOSTRIL TWICE DAILY buspirone 5 buspirone 5 No buspirone [place] mg tablet mg tablet 5 mg Commu ni TAKE 1 TAKE 1 tablet ty TABLET BY TABLET BY TAKE 1 [facility] MOUTH TWICE MOUTH TWICE TABLET BY l DAILY DAILY MOUTH Clinics TWICE DAILY estradiol estradiol No estradiol [place] 0.01% (0.1 0.01% (0.1 0.01% (0.1 [facility] mg/gram) mg/gram) mg/gram) ty vaginal vaginal vaginal Hospit a cream cream cream l INSERT 1 INSERT 1 INSERT 1 Cli nics GRAM INTO GRAM INTO GRAM INTO VAGINA VAGINA VAGINA TWICE A TWICE A TWICE A WEEK AT WEEK AT WEEK AT NIGHT. NIGHT. NIGHT. fluticasone fluticasone No fluticason [place] propionate propionate e Com ricci 50 50 [...] NOSTRIL EVERY DAY hyoscyamine hyoscyamine No hyoscyamin [place] sulfate sulfate e sulfate Comm uni 0.125 mg 0.125 mg 0.125 mg ty tablet TAKE tablet TAKE tablet [facility] 1 TABLET BY 1 TABLET BY TAKE 1 l MOUTH EVERY MOUTH EVERY TABLET BY Clinics 8 HOURS 8 HOURS MOUTH EVERY 8 HOURS levothyroxi levothyroxi No levothyrox [place] ne 25 mcg ne 25 mcg ine 25 mcg [facility] tablet TAKE tablet TAKE tablet ty 1 TABLET BY 1 TABLET BY TAKE 1 [facility] MOUTH EVERY MOUTH EVERY TABLET BY l DAY DAY MOUTH Clinics EVERY DAY meclizine meclizine No 1 TID meclizine [place] 25 mg 25 mg 25 mg [facility] tablet Take tablet Take tablet ty 1 tablet 3 1 tablet 3 Take 1 [facility] times a day times a day tablet 3 l by oral by oral times a Clinic s route as route as day by needed. needed. oral route as needed. omeprazole omeprazole No omeprazole [place] 20 mg 20 mg 20 mg [facility] capsule,del capsule,del capsule,de ty ayed ayed layed [facility] release release release l TAKE 1 TAKE 1 TAKE 1 Clinics CAPSULE BY CAPSULE BY CAPSULE BY MOUTH DAILY MOUTH DAILY MOUTH DAILY ondansetron ondansetron No ondansetro [place] 4 mg 4 mg n 4 mg [...] NEEDED FOR NAUSEA orphenadrin orphenadrin No orphenadri [place] e citrate e citrate ne citrate Communi [...] tablet l Clinics valacyclovi valacyclovi No valacyclov [place] r 1 gram r 1 gram ir 1 gram [facility] tablet TAKE tablet TAKE tablet ty 1 TABLET BY 1 TABLET BY TAKE 1 [facility]ospita MOUTH THREE MOUTH THREE TABLET BY l TIMES DAILY TIMES DAILY MOUTH Clinics FOR 7 DAYS FOR 7 DAYS THREE TIMES DAILY FOR 7 DAYS Xifaxan 550 Xifaxan 550 No Xifaxan [place] mg tablet mg tablet 550 mg Com ricci tablet ty [facility] l Clinics alprazolam alprazolam No alprazolam [place] 0.25 mg 0.25 mg 0.25 mg Commun i tablet TAKE tablet TAKE tablet ty 1 TABLET BY 1 TABLET BY TAKE 1 [facility] MOUTH TWICE MOUTH TWICE TABLET BY l DAILY FOR DAILY FOR MOUTH Clin ics 14 DAYS 14 DAYS TWICE DAILY FOR 14 DAYS azelastine azelastine No azelastine [place] 205.5 mcg 205.5 mcg 205.5 mcg [facility] (0.15 %) (0.15 %) (0.15 %) ty nasal spray nasal spray nasal [facility]osp[facility] USE 1 SPRAY USE 1 SPRAY spray USE l IN EACH IN EACH 1 SPRAY IN Cli nics NOSTRIL NOSTRIL EACH TWICE DAILY TWICE DAILY NOSTRIL TWICE DAILY buspirone 5 buspirone 5 No buspirone [place] mg tablet mg tablet 5 mg Commu ni TAKE 1 TAKE 1 tablet ty TABLET BY TABLET BY TAKE 1 [facility] MOUTH TWICE MOUTH TWICE TABLET BY l DAILY DAILY MOUTH Clinics TWICE DAILY estradiol estradiol No estradiol [place] 0.01% (0.1 0.01% (0.1 0.01% (0.1 [facility] mg/gram) mg/gram) mg/gram) ty vaginal vaginal vaginal Hospit a cream cream cream l INSERT 1 INSERT 1 INSERT 1 Cli nics GRAM INTO GRAM INTO GRAM INTO VAGINA VAGINA VAGINA TWICE A TWICE A TWICE A WEEK AT WEEK AT WEEK AT NIGHT. NIGHT. NIGHT. fluticasone fluticasone No fluticason [place] propionate propionate e Com ricci 50 50 [...] NOSTRIL EVERY DAY hyoscyamine hyoscyamine No hyoscyamin [place] sulfate sulfate e sulfate Comm uni 0.125 mg 0.125 mg 0.125 mg ty tablet TAKE tablet TAKE tablet [facility] 1 TABLET BY 1 TABLET BY TAKE 1 l MOUTH EVERY MOUTH EVERY TABLET BY Clinics 8 HOURS 8 HOURS MOUTH EVERY 8 HOURS levothyroxi levothyroxi No levothyrox [place] ne 25 mcg ne 25 mcg ine 25 mcg [facility] tablet TAKE tablet TAKE tablet ty 1 TABLET BY 1 TABLET BY TAKE 1 [facility]ospita MOUTH EVERY MOUTH EVERY TABLET BY l DAY DAY MOUTH Clinics EVERY DAY meclizine meclizine No 1 TID meclizine [place] 25 mg 25 mg 25 mg [facility] tablet Take tablet Take tablet ty 1 tablet 3 1 tablet 3 Take 1 [facility] times a day times a day tablet 3 l by oral by oral times a Clinic s route as route as day by needed. needed. oral route as needed. omeprazole omeprazole No omeprazole [place] 20 mg 20 mg 20 mg [facility] capsule,del capsule,del capsule,de ty ayed ayed layed [facility] release release release l TAKE 1 TAKE 1 TAKE 1 Clinics CAPSULE BY CAPSULE BY CAPSULE BY MOUTH DAILY MOUTH DAILY MOUTH DAILY ondansetron ondansetron No ondansetro [place] 4 mg 4 mg n 4 mg [...] NEEDED FOR NAUSEA orphenadrin orphenadrin No orphenadri [place] e citrate e citrate ne citrate [facility] ER 100 mg ER 100 mg ER 100 mg ty tablet,exte tablet,exte tablet,ext [facility]ospita nded nded ended l release release release Clinic s TAKE 1 TAKE 1 TAKE 1 TABLET BY TABLET BY TABLET BY MOUTH TWICE MOUTH TWICE MOUTH DAILY DAILY TWICE NEEDED NEEDED DAILY NEEDED sucralfate sucralfate No sucralfate [place] 1 gram 1 gram 1 gram Communi [...] Clinics tramadol 50 tramadol 50 No tramadol [place] mg tablet mg tablet 50 mg Comm uni TAKE 1 TAKE 1 tablet ty TABLET BY TABLET BY TAKE 1 [facility] MOUTH EVERY MOUTH EVERY TABLET BY l 4 HOURS 4 HOURS MOUTH Cl inics NEEDED FOR NEEDED FOR EVERY 4 PAIN PAIN HOURS NEEDED FOR PAIN valacyclovi valacyclovi No valacyclov [place] r 1 gram r 1 gram ir 1 gram [facility] tablet TAKE tablet TAKE tablet ty 1 TABLET BY 1 TABLET BY TAKE 1 [facility]ospita MOUTH THREE MOUTH THREE TABLET BY l TIMES DAILY TIMES DAILY MOUTH Clinics FOR 7 DAYS FOR 7 DAYS THREE TIMES DAILY FOR 7 DAYS Xifaxan 550 Xifaxan 550 No Xifaxan [place] mg tablet mg tablet 550 mg Com ricci tablet ty [facility] l Clinics acyclovir 5 acyclovir 5 No acyclovir [place] % topical % topical 5 % Commu ni ointment ointment topical ty APPLY TO APPLY TO ointment [facility] THE THE APPLY TO l AFFECTED AFFECTED THE Clinics AREA EVERY AREA EVERY AFFECTED 2 HOURS 2 HOURS AREA EVERY DURING DURING 2 HOURS AWAKE HOURS AWAKE HOURS DURING FOR 4 DAYS FOR 4 DAYS AWAKE HOURS FOR 4 DAYS alprazolam alprazolam No alprazolam [place] 0.25 mg 0.25 mg 0.25 mg Commun i tablet TAKE tablet TAKE tablet ty 1/2 TO 1 2 TO 1 TAKE 1/2 [facility] FULL TABLET FULL TABLET TO 1 FULL l BY MOUTH BY MOUTH TABLET BY Cl inics EVERY DAY EVERY DAY MOUTH NEEDED NEEDED EVERY DAY NEEDED azelastine azelastine No azelastine [place] 205.5 mcg 205.5 mcg 205.5 mcg [facility] (0.15 %) (0.15 %) (0.15 %) ty nasal spray nasal spray nasal Hospita USE 1 SPRAY USE 1 SPRAY spray USE l IN EACH IN EACH 1 SPRAY IN Cli nics NOSTRIL NOSTRIL EACH TWICE DAILY TWICE DAILY NOSTRIL TWICE DAILY buspirone 5 buspirone 5 No buspirone [place] mg tablet mg tablet 5 mg Commu ni TAKE 1 TAKE 1 tablet ty TABLET BY TABLET BY TAKE 1 [facility] MOUTH TWICE MOUTH TWICE TABLET BY l DAILY DAILY MOUTH Clinics TWICE DAILY Dexilant Dexilant No Dexilant Swe venkat [facility] ty [facility] estradiol estradiol No estradiol [place] 0.01% (0.1 0.01% (0.1 0.01% (0.1 [facility] mg/gram) mg/gram) mg/gram) ty vaginal vaginal vaginal Hospit a cream cream cream l INSERT 1 INSERT 1 INSERT 1 Cli nics GRAM INTO GRAM INTO GRAM INTO VAGINA VAGINA VAGINA TWICE A TWICE A TWICE A WEEK AT WEEK AT WEEK AT NIGHT. NIGHT. NIGHT. fluoxetine fluoxetine No fluoxetine [place] 10 mg 10 mg 10 mg [facility] capsule capsule capsule ty TAKE 1 TAKE 1 TAKE 1 Hospita CAPSULE BY CAPSULE BY CAPSULE BY l MOUTH DAILY MOUTH DAILY MOUTH Clinics DAILY fluticasone fluticasone No fluticason [place] propionate propionate e Com ricci 50 50 [...] NOSTRIL EVERY DAY gabapentin gabapentin No gabapentin [place] 100 mg 100 mg 100 mg [facility] capsule capsule capsule ty TAKE 1 TO 2 TAKE 1 TO 2 TAKE 1 TO Hospita CAPSULES BY CAPSULES BY 2 CAPSULES l MOUTH IN MOUTH IN BY MOUTH Cli nics THE EVENING THE EVENING IN THE OR BEDTIME OR BEDTIME EVENING OR NEEDED NEEDED BEDTIME NEEDED hyoscyamine hyoscyamine No hyoscyamin [place] sulfate sulfate e sulfate Comm uni 0.125 mg 0.125 mg 0.125 mg ty tablet TAKE tablet TAKE tablet Hospita 1 TABLET BY 1 TABLET BY TAKE 1 l MOUTH EVERY MOUTH EVERY TABLET BY Clinics 8 HOURS 8 HOURS MOUTH EVERY 8 HOURS levothyroxi levothyroxi No levothyrox [place] ne 25 mcg ne 25 mcg ine 25 mcg [facility]i tablet TAKE tablet TAKE tablet ty 1 TABLET BY 1 TABLET BY TAKE 1 Hospita MOUTH EVERY MOUTH EVERY TABLET BY l DAY DAY MOUTH Clinics EVERY DAY meclizine meclizine No 1 TID meclizine [place] 25 mg 25 mg 25 mg [facility] tablet Take tablet Take tablet ty 1 tablet 3 1 tablet 3 Take 1 H ospita times a day times a day tablet 3 l by oral by oral times a Clinic s route as route as day by needed. needed. oral route as needed. omeprazole omeprazole No omeprazole [place] 20 mg 20 mg 20 mg [facility] capsule,del capsule,del capsule,de ty ayed ayed layed Hospita release release release l TAKE 1 TAKE 1 TAKE 1 Clinics CAPSULE BY CAPSULE BY CAPSULE BY MOUTH DAILY MOUTH DAILY MOUTH DAILY ondansetron ondansetron No ondansetro [place] 4 mg 4 mg n 4 mg [...] NEEDED FOR NAUSEA orphenadrin orphenadrin No orphenadri [place] e citrate e citrate ne citrate [facility] ER 100 mg ER 100 mg ER 100 mg ty tablet,exte tablet,exte tablet,ext Hospita nded nded ended l release release release Clinic s TAKE 1 TAKE 1 TAKE 1 TABLET BY TABLET BY TABLET BY MOUTH TWICE MOUTH TWICE MOUTH DAILY DAILY TWICE NEEDED NEEDED DAILY NEEDED sucralfate sucralfate No sucralfate [place] 1 gram 1 gram 1 gram [facility] tablet TAKE tablet TAKE tablet ty 1 TABLET BY 1 TABLET BY TAKE 1 Hospita MOUTH FOUR MOUTH FOUR TABLET BY l TIMES DAILY TIMES DAILY MOUTH FOUR Clinics BEFORE BEFORE TIMES MEALS MEALS DAILY BEFORE MEALS Suprax 400 Suprax 400 No 1capsul Q1D Suprax 400 [place] mg capsule mg capsule e(s) mg capsule [facility] Take 1 Take 1 Take 1 ty capsule capsule capsule Hospit a every day every day every day l by oral by oral by oral Clinic s route for route for route for 10 days. 10 days. 10 days. tramadol 50 tramadol 50 No tramadol [place] mg tablet mg tablet 50 mg Comm uni TAKE 1 TAKE 1 tablet ty TABLET BY TABLET BY TAKE 1 [facility] MOUTH EVERY MOUTH EVERY TABLET BY l 4 HOURS 4 HOURS MOUTH Cl inics NEEDED FOR NEEDED FOR EVERY 4 PAIN PAIN HOURS NEEDED FOR PAIN Xifaxan 550 Xifaxan 550 No Xifaxan [place] mg tablet mg tablet 550 mg Com ricci tablet ty Hospita l Clinics acyclovir 5 acyclovir 5 No acyclovir [place] % topical % topical 5 % Commu ni ointment ointment topical ty APPLY TO APPLY TO ointment [facility] THE THE APPLY TO l AFFECTED AFFECTED THE Clinics AREA EVERY AREA EVERY AFFECTED 2 HOURS 2 HOURS AREA EVERY DURING DURING 2 HOURS AWAKE HOURS AWAKE HOURS DURING FOR 4 DAYS FOR 4 DAYS AWAKE HOURS FOR 4 DAYS alprazolam alprazolam No alprazolam [place] 0.25 mg 0.25 mg 0.25 mg Commun i tablet TAKE tablet TAKE tablet ty 1/2 TO 1 /2 TO 1 TAKE 1/2 [facility] FULL TABLET FULL TABLET TO 1 FULL l BY MOUTH BY MOUTH TABLET BY Cl inics EVERY DAY EVERY DAY MOUTH NEEDED NEEDED EVERY DAY NEEDED amoxicillin amoxicillin No 1 Q12H amoxicilli [place] [id number] 875 Communi mg-potassiu mg-potassiu [...] for 10 days. azelastine azelastine No azelastine [place] 205.5 mcg 205.5 mcg 205.5 mcg [facility] (0.15 %) (0.15 %) (0.15 %) ty nasal spray nasal spray nasal Hospita USE 1 SPRAY USE 1 SPRAY spray USE l IN EACH IN EACH 1 SPRAY IN Cli nics NOSTRIL NOSTRIL EACH TWICE DAILY TWICE DAILY NOSTRIL TWICE DAILY buspirone 5 buspirone 5 No buspirone [place] mg tablet mg tablet 5 mg Commu ni TAKE 1 TAKE 1 tablet ty TABLET BY TABLET BY TAKE 1 [facility] MOUTH TWICE MOUTH TWICE TABLET BY l DAILY DAILY MOUTH Clinics TWICE DAILY dexlansopra dexlansopra No dexlansopr [place] zole 60 mg zole 60 mg azole 60 [facility] capsule,bip capsule,bip mg t y hase hase capsule,bi Hospita delayed delayed phase l release release delayed Clinic s TAKE 1 TAKE 1 release CAPSULE BY CAPSULE BY TAKE 1 MOUTH DAILY MOUTH DAILY CAPSULE BY MOUTH DAILY esomeprazol esomeprazol No 1capsul Q1D esomeprazo [place] e magnesium e magnesium e(s) le [facility] 40 mg 40 mg magnesium ty capsule,del capsule,del 40 mg Hospita ayed ayed capsule,de l release release layed Clinics Take 1 Take 1 release capsule capsule Take 1 every day every day capsule by oral by oral every day route. route. by oral route. estradiol estradiol No estradiol [place] 0.01% (0.1 0.01% (0.1 0.01% (0.1 [facility] mg/gram) mg/gram) mg/gram) ty vaginal vaginal vaginal Hospit a cream cream cream l INSERT 1 INSERT 1 INSERT 1 Cli nics GRAM INTO GRAM INTO GRAM INTO VAGINA VAGINA VAGINA TWICE A TWICE A TWICE A WEEK AT WEEK AT WEEK AT NIGHT. NIGHT. NIGHT. fluoxetine fluoxetine No fluoxetine [place] 10 mg 10 mg 10 mg [facility] capsule capsule capsule ty TAKE 1 TAKE 1 TAKE 1 Hospita CAPSULE BY CAPSULE BY CAPSULE BY l MOUTH DAILY MOUTH DAILY MOUTH Clinics DAILY fluticasone fluticasone No fluticason [place] propionate propionate e Com ricci 50 50 [...] NOSTRIL EVERY DAY gabapentin gabapentin No gabapentin [place] 100 mg 100 mg 100 mg Communi capsule capsule capsule ty TAKE 1 TO 2 TAKE 1 TO 2 TAKE 1 TO Hospita CAPSULES BY CAPSULES BY 2 CAPSULES l MOUTH IN MOUTH IN BY MOUTH Cli nics THE EVENING THE EVENING IN THE OR BEDTIME OR BEDTIME EVENING OR NEEDED NEEDED BEDTIME NEEDED hyoscyamine hyoscyamine No hyoscyamin [place] sulfate sulfate e sulfate Comm uni 0.125 mg 0.125 mg 0.125 mg ty tablet TAKE tablet TAKE tablet Hospita 1 TABLET BY 1 TABLET BY TAKE 1 l MOUTH EVERY MOUTH EVERY TABLET BY Clinics 8 HOURS 8 HOURS MOUTH EVERY 8 HOURS meclizine meclizine No 1 TID meclizine [place] 25 mg 25 mg 25 mg [facility] tablet Take tablet Take tablet ty 1 tablet 3 1 tablet 3 Take 1 H ospita times a day times a day tablet 3 l by oral by oral times a Clinic s route as route as day by needed. needed. oral route as needed. ondansetron ondansetron No ondansetro [place] 4 mg 4 mg n 4 mg [...] NAUSEA OR VOMITING orphenadrin orphenadrin No orphenadri [place] e citrate e citrate ne citrate [facility] ER 100 mg ER 100 mg ER 100 mg ty tablet,exte tablet,exte tablet,ext Hospita nded nded ended l release release release Clinic s TAKE 1 TAKE 1 TAKE 1 TABLET BY TABLET BY TABLET BY MOUTH TWICE MOUTH TWICE MOUTH DAILY DAILY TWICE NEEDED NEEDED DAILY NEEDED tramadol 50 tramadol 50 No tramadol [place] mg tablet mg tablet 50 mg Comm uni TAKE 1 TAKE 1 tablet ty TABLET BY TABLET BY TAKE 1 [facility] MOUTH EVERY MOUTH EVERY TABLET BY l 4 HOURS 4 HOURS MOUTH Cl inics NEEDED FOR NEEDED FOR EVERY 4 PAIN PAIN HOURS NEEDED FOR PAIN Xifaxan 550 Xifaxan 550 No Xifaxan [place] mg tablet mg tablet 550 mg Com ricci tablet ty Hospita l Clinics amitriptyli amitriptyli No amitriptyl [place] ne 10 mg ne 10 mg ine 10 mg [facility] tablet TAKE tablet TAKE tablet ty 1 TABLET BY 1 TABLET BY TAKE 1 Hospita MOUTH EVERY MOUTH EVERY TABLET BY l NIGHT AT NIGHT AT MOUTH Clinic s BEDTIME BEDTIME EVERY NIGHT AT BEDTIME azelastine azelastine No azelastine [place] 205.5 mcg 205.5 mcg 205.5 mcg Communi (0.15 %) (0.15 %) (0.15 %) ty nasal spray nasal spray nasal Hospita USE 1 SPRAY USE 1 SPRAY spray USE l IN EACH IN EACH 1 SPRAY IN Cli nics NOSTRIL NOSTRIL EACH TWICE DAILY TWICE DAILY NOSTRIL TWICE DAILY duloxetine duloxetine No 1capsul Q1D duloxetine [place] 30 mg 30 mg e(s) 30 mg [facility] capsule,del capsule,del capsule,de ty ayed ayed layed Hospita release release release l Take 1 Take 1 Take 1 Clinics capsule capsule capsule every day every day every day by oral by oral by oral route for route for route for 30 days. 30 days. 30 days. esomeprazol esomeprazol No 1capsul Q1D esomeprazo [place] e magnesium e magnesium e(s) le [facility] 40 mg 40 mg magnesium ty capsule,del capsule,del 40 mg Hospita ayed ayed capsule,de l release release layed Clinics Take 1 Take 1 release capsule capsule Take 1 every day every day capsule by oral by oral every day route. route. by oral route. estradiol estradiol No estradiol [place] 0.01% (0.1 0.01% (0.1 0.01% (0.1 [facility] mg/gram) mg/gram) mg/gram) ty vaginal vaginal vaginal Hospit a cream cream cream l INSERT 1 INSERT 1 INSERT 1 Cli nics GRAM INTO GRAM INTO GRAM INTO VAGINA VAGINA VAGINA TWICE A TWICE A TWICE A WEEK AT WEEK AT WEEK AT NIGHT. NIGHT. NIGHT. fluticasone fluticasone No fluticason [place] propionate propionate e Com ricci 50 50 [...] NOSTRIL EVERY DAY hyoscyamine hyoscyamine No hyoscyamin [place] sulfate sulfate e sulfate Comm uni 0.125 mg 0.125 mg 0.125 mg ty tablet TAKE tablet TAKE tablet Hospita 1 TABLET BY 1 TABLET BY TAKE 1 l MOUTH THREE MOUTH THREE TABLET BY Clinics TIMES DAILY TIMES DAILY MOUTH NEEDED NEEDED THREE TIMES DAILY NEEDED meclizine meclizine No 1 TID meclizine [place] 25 mg 25 mg 25 mg Commun[facility] tablet Take tablet Take tablet ty 1 tablet 3 1 tablet 3 Take 1 H ospita times a day times a day tablet 3 l by oral by oral times a Clinic s route as route as day by needed. needed. oral route as needed. ondansetron ondansetron No ondansetro [place] 4 mg 4 mg n 4 mg [...] NAUSEA OR VOMITING orphenadrin orphenadrin No orphenadri [place] e citrate e citrate ne citrate [facility] ER 100 mg ER 100 mg ER 100 mg ty tablet,exte tablet,exte tablet,ext Hospita nded nded ended l release release release Clinic s TAKE 1 TAKE 1 TAKE 1 TABLET BY TABLET BY TABLET BY MOUTH TWICE MOUTH TWICE MOUTH DAILY DAILY TWICE NEEDED NEEDED DAILY NEEDED topiramate topiramate No topiramate [place] 25 mg 25 mg 25 mg Communi tablet TAKE tablet TAKE tablet ty 2 TO 1 2 TO 1 TAKE 1/2 [facility] TABLET BY TABLET BY TO 1 l MOUTH EVERY MOUTH EVERY TABLET BY Clinics NIGHT AT NIGHT AT MOUTH BEDTIME BEDTIME EVERY NIGHT AT BEDTIME tramadol 50 tramadol 50 No tramadol [place] mg tablet mg tablet 50 mg Comm uni TAKE 1 TAKE 1 tablet ty TABLET BY TABLET BY TAKE 1 [facility] MOUTH EVERY MOUTH EVERY TABLET BY l 4 HOURS 4 HOURS MOUTH Cl inics NEEDED FOR NEEDED FOR EVERY 4 PAIN PAIN HOURS NEEDED FOR PAIN amitriptyli amitriptyli No amitriptyl [place] ne 10 mg ne 10 mg ine 10 mg [facility] tablet TAKE tablet TAKE tablet ty 1 TABLET BY 1 TABLET BY TAKE 1 Hospita MOUTH EVERY MOUTH EVERY TABLET BY l NIGHT AT NIGHT AT MOUTH Clinic s BEDTIME BEDTIME EVERY NIGHT AT BEDTIME azelastine azelastine No azelastine [place] 205.5 mcg 205.5 mcg 205.5 mcg Communi (0.15 %) (0.15 %) (0.15 %) ty nasal spray nasal spray nasal Hospita USE 1 SPRAY USE 1 SPRAY spray USE l IN EACH IN EACH 1 SPRAY IN Cli nics NOSTRIL NOSTRIL EACH TWICE DAILY TWICE DAILY NOSTRIL TWICE DAILY dicyclomine dicyclomine No dicyclomin [place] 20 mg 20 mg e 20 mg Communi tablet tablet tablet ty Hospita l Clinics esomeprazol esomeprazol No 1capsul Q1D esomeprazo [place] e magnesium e magnesium e(s) le [facility] 40 mg 40 mg magnesium ty capsule,del capsule,del 40 mg Hospita ayed ayed capsule,de l release release layed Clinics Take 1 Take 1 release capsule capsule Take 1 every day every day capsule by oral by oral every day route. route. by oral route. estradiol estradiol No estradiol [place] 0.01% (0.1 0.01% (0.1 0.01% (0.1 [facility] mg/gram) mg/gram) mg/gram) ty vaginal vaginal vaginal Hospit a cream cream cream l INSERT 1 INSERT 1 INSERT 1 Cli nics GRAM INTO GRAM INTO GRAM INTO VAGINA VAGINA VAGINA TWICE A TWICE A TWICE A WEEK AT WEEK AT WEEK AT NIGHT. NIGHT. NIGHT. fluticasone fluticasone No fluticason [place] propionate propionate e Com ricci 50 50 [...] NOSTRIL EVERY DAY hyoscyamine hyoscyamine No hyoscyamin [place] sulfate sulfate e sulfate Comm uni 0.125 mg 0.125 mg 0.125 mg ty tablet TAKE tablet TAKE tablet Hospita 1 TABLET BY 1 TABLET BY TAKE 1 l MOUTH THREE MOUTH THREE TABLET BY Clinics TIMES DAILY TIMES DAILY MOUTH NEEDED NEEDED THREE TIMES DAILY NEEDED meclizine meclizine No 1 TID meclizine [place] 25 mg 25 mg 25 mg [facility] tablet Take tablet Take tablet ty 1 tablet 3 1 tablet 3 Take 1 H ospita times a day times a day tablet 3 l by oral by oral times a Clinic s route as route as day by needed. needed. oral route as needed. ondansetron ondansetron No ondansetro [place] 4 mg 4 mg n 4 mg [...] NAUSEA OR VOMITING orphenadrin orphenadrin No orphenadri [place] e citrate e citrate ne citrate [facility] ER 100 mg ER 100 mg ER 100 mg ty tablet,exte tablet,exte tablet,ext Hospita nded nded ended l release release release Clinic s TAKE 1 TAKE 1 TAKE 1 TABLET BY TABLET BY TABLET BY MOUTH TWICE MOUTH TWICE MOUTH DAILY DAILY TWICE NEEDED NEEDED DAILY NEEDED topiramate topiramate No topiramate [place] 25 mg 25 mg 25 mg [facility] tablet TAKE tablet TAKE tablet ty 1/2 TO 1 1/2 TO 1 TAKE 1/2 [facility] TABLET BY TABLET BY TO 1 l MOUTH EVERY MOUTH EVERY TABLET BY Clinics NIGHT AT NIGHT AT MOUTH BEDTIME BEDTIME EVERY NIGHT AT BEDTIME tramadol 50 tramadol 50 No tramadol [place] mg tablet mg tablet 50 mg Comm uni TAKE 1 TAKE 1 tablet ty TABLET BY TABLET BY TAKE 1 [facility] MOUTH EVERY MOUTH EVERY TABLET BY l 4 HOURS 4 HOURS MOUTH Cl inics NEEDED FOR NEEDED FOR EVERY 4 PAIN PAIN HOURS NEEDED FOR PAIN esomeprazol esomeprazol No 1capsul Q1D esomeprazo [place] e magnesium e magnesium e(s) [facility] 40 mg 40 mg magnesium ty capsule,del capsule,del 40 mg Hospita ayed ayed capsule,de l release release layed Clinics Take 1 Take 1 release capsule capsule Take 1 every day every day capsule by oral by oral every day route. route. by oral route. tramadol 50 tramadol 50 No tramadol [place] mg tablet mg tablet 50 mg Comm uni TAKE 1 TAKE 1 tablet ty TABLET BY TABLET BY TAKE 1 [facility] MOUTH EVERY MOUTH EVERY TABLET BY l 4 HOURS 4 HOURS MOUTH Cl inics NEEDED FOR NEEDED FOR EVERY 4 PAIN PAIN HOURS NEEDED FOR PAIN cefdinir cefdinir No 1capsul Q12H cefdinir [place] 300 mg 300 mg e(s) 300 mg [facility] capsule capsule capsule ty Take 1 Take 1 Take 1 Hospita capsule capsule capsule l every 12 every 12 every 12 Cli nics hours by hours by hours by oral route oral route oral route for 10 for 10 for 10 days. days. days. esomeprazol esomeprazol No 1capsul Q1D esomeprazo [place] e magnesium e magnesium e(s) le [facility] 40 mg 40 mg magnesium ty capsule,del capsule,del 40 mg Hospita ayed ayed capsule,de l release release layed Clinics Take 1 Take 1 release capsule capsule Take 1 every day every day capsule by oral by oral every day route. route. by oral route. estradiol estradiol No estradiol [place] 0.01% (0.1 0.01% (0.1 0.01% (0.1 [facility] mg/gram) mg/gram) mg/gram) ty vaginal vaginal vaginal Hospit a cream APPLY cream APPLY cream l 0.5 GRAMS 0.5 GRAMS APPLY 0.5 Clinics DIRECTED DIRECTED GRAMS IN THE IN THE DIRECTED VAGINA VAGINA IN THE TWICE A TWICE A VAGINA WEEK WEEK TWICE A WEEK meloxicam meloxicam No meloxicam [place] 15 mg 15 mg 15 mg [facility] tablet TAKE tablet TAKE tablet ty 1 TABLET BY 1 TABLET BY TAKE 1 Hospita MOUTH EVERY MOUTH EVERY TABLET BY l DAY DAY MOUTH Clinics EVERY DAY omeprazole omeprazole No omeprazole [place] 20 mg 20 mg 20 mg [facility] capsule,del capsule,del capsule,de ty ayed ayed layed Hospita release release release l Clinics ondansetron ondansetron No ondansetro [place] 4 mg 4 mg n 4 mg Communi disintegrat disintegrat disintegra ty ing tablet ing tablet ting [facility] TAKE 1 TAKE 1 tablet l TABLET BY TABLET BY TAKE 1 Cli nics MOUTH EVERY MOUTH EVERY TABLET BY 6 HOURS 6 HOURS MOUTH NEEDED FOR NEEDED FOR EVERY 6 NAUSEA/VOMI NAUSEA/VOMI HOURS TING TING NEEDED FOR NAUSEA/VOM ITING tramadol 50 tramadol 50 No tramadol [place] mg tablet mg tablet 50 mg Comm uni TAKE 1 TAKE 1 tablet ty TABLET BY TABLET BY TAKE 1 [facility] MOUTH EVERY MOUTH EVERY TABLET BY l 4 HOURS 4 HOURS MOUTH Cl inics NEEDED FOR NEEDED FOR EVERY 4 PAIN PAIN HOURS NEEDED FOR PAIN Vital Signs Vital Name Observation Time Observation Value Comments Source BP Diastolic 2023-01-07 00:00:00 69 mm[Hg] [facility] s Body Weight 2023-01-07 00:00:00 2646.4 [oz_av] [facility] s BMI (Body Mass 2023-01-07 00:00:00 29.3 kg/m2 [facility] s Height 2023-01-07 00:00:00 63 [in_i] [facility] s BP Systolic 2023-01-07 00:00:00 128 mm[Hg] [facility] s BP Systolic 2022-12-02 00:00:00 124 mm[Hg] [facility] s Body Weight 2022-12-02 00:00:00 2812.8 [oz_av] [facility] s Height 2022-12-02 00:00:00 63 [in_i] [facility] s BMI (Body Mass 2022-12-02 00:00:00 31.1 kg/m2 [facility] s BP Diastolic 2022-12-02 00:00:00 78 mm[Hg] [facility] s BP Diastolic 2022-11-10 00:00:00 77 mm[Hg] [facility] s Body Weight 2022-11-10 00:00:00 2889.6 [oz_av] [facility] s BMI (Body Mass 2022-11-10 00:00:00 32 kg/m2 [facility] s BP Systolic 2022-11-10 00:00:00 104 mm[Hg] [facility] s Height 2022-11-10 00:00:00 63 [in_i] [facility] s BP Systolic 2022-11-06 00:00:00 121 mm[Hg] [facility] s Height 2022-11-06 00:00:00 63 [in_i] [facility] s BP Diastolic 2022-11-06 00:00:00 85 mm[Hg] [facility] s Body Weight 2022-11-06 00:00:00 2928 [oz_av] [facility] s BMI (Body Mass 2022-11-06 00:00:00 32.4 kg/m2 [facility] s BP Diastolic 2022-10-20 00:00:00 72 mm[Hg] [facility] s Height 2022-10-20 00:00:00 63 [in_i] [facility] s BMI (Body Mass 2022-10-20 00:00:00 33 kg/m2 [facility] s BP Systolic 2022-10-20 00:00:00 124 mm[Hg] [facility] s Body Weight 2022-10-20 00:00:00 2979.2 [oz_av] [facility] s BP Diastolic 2022-10-06 00:00:00 76 mm[Hg] [facility] s Height 2022-10-06 00:00:00 63 [in_i] [facility] s BMI (Body Mass 2022-10-06 00:00:00 33.8 kg/m2 [facility] s BP Systolic 2022-10-06 00:00:00 135 mm[Hg] [facility] s Body Weight 2022-10-06 00:00:00 3052.8 [oz_av] [facility] s BP Diastolic 2022-09-11 00:00:00 71 mm[Hg] [facility] s Height 2022-09-11 00:00:00 63 [in_i] [facility] s BMI (Body Mass 2022-09-11 00:00:00 35.6 kg/m2 [facility] s BP Systolic 2022-09-11 00:00:00 124 mm[Hg] [facility] s Body Weight 2022-09-11 00:00:00 3216 [oz_av] [facility] s BP Diastolic 2022-09-01 00:00:00 84 mm[Hg] [facility] s Height 2022-09-01 00:00:00 63 [in_i] [facility] s BMI (Body Mass 2022-09-01 00:00:00 35.5 kg/m2 [facility] s BP Systolic 2022-09-01 00:00:00 152 mm[Hg] [facility] s Body Weight 2022-09-01 00:00:00 3203.2 [oz_av] [facility] s BP Diastolic 2022-08-12 00:00:00 88 mm[Hg] [facility] s Height 2022-08-12 00:00:00 63 [in_i] [facility] s BMI (Body Mass 2022-08-12 00:00:00 36.1 kg/m2 [facility] s BP Systolic 2022-08-12 00:00:00 122 mm[Hg] [facility] s Body Weight 2022-08-12 00:00:00 3260.8 [oz_av] [facility] s BP Diastolic 2022-07-18 00:00:00 81 mm[Hg] [facility] s Height 2022-07-18 00:00:00 63 [in_i] [facility] s BMI (Body Mass 2022-07-18 00:00:00 35.5 kg/m2 [facility] s BP Systolic 2022-07-18 00:00:00 143 mm[Hg] [facility] s Body Weight 2022-07-18 00:00:00 3206.4 [oz_av] [facility] s BP Diastolic 2022-07-08 00:00:00 79 mm[Hg] [facility] s Height 2022-07-08 00:00:00 63 [in_i] [facility] s BMI (Body Mass 2022-07-08 00:00:00 36.2 kg/m2 [facility] s BP Systolic 2022-07-08 00:00:00 119 mm[Hg] [facility] s Body Weight 2022-07-08 00:00:00 3267.2 [oz_av] [facility] s BP Diastolic 2022-03-27 00:00:00 85 mm[Hg] [facility] s Height 2022-03-27 00:00:00 63 [in_i] [facility] s BMI (Body Mass 2022-03-27 00:00:00 34.8 kg/m2 [facility] s BP Systolic 2022-03-27 00:00:00 153 mm[Hg] [facility] s Body Weight 2022-03-27 00:00:00 3139.2 [oz_av] [facility] s BP Diastolic 2022-02-24 00:00:00 77 mm[Hg] [facility] s Height 2022-02-24 00:00:00 63 [in_i] [facility] s BMI (Body Mass 2022-02-24 00:00:00 34.8 kg/m2 [facility] s BP Systolic 2022-02-24 00:00:00 143 mm[Hg] [facility] s Body Weight 2022-02-24 00:00:00 3139.2 [oz_av] [facility] s BP Diastolic 2022-01-23 00:00:00 80 mm[Hg] [facility] s Height 2022-01-23 00:00:00 63 [in_i] [facility] s BMI (Body Mass 2022-01-23 00:00:00 34.2 kg/m2 [facility] s BP Systolic 2022-01-23 00:00:00 145 mm[Hg] [facility] s Body Weight 2022-01-23 00:00:00 3088 [oz_av] [facility] s BP Diastolic 2021-12-18 00:00:00 74 mm[Hg] [facility] s Height 2021-12-18 00:00:00 63 [in_i] [facility] s BMI (Body Mass 2021-12-18 00:00:00 34.7 kg/m2 [facility] s BP Systolic 2021-12-18 00:00:00 139 mm[Hg] [facility] Body Weight 2021-12-18 00:00:00 3136 [oz_av] [facility] BP Diastolic 2021-11-08 00:00:00 71 mm[Hg] [facility] Height 2021-11-08 00:00:00 63 [in_i] [facility] BMI (Body Mass 2021-11-08 00:00:00 35.3 kg/m2 [facility] BP Systolic 2021-11-08 00:00:00 140 mm[Hg] [facility] Body Weight 2021-11-08 00:00:00 3187.2 [oz_av] [facility] s BP Diastolic 2021-10-21 00:00:00 74 mm[Hg] [facility] Height 2021-10-21 00:00:00 63 [in_i] [facility] s BMI (Body Mass 2021-10-21 00:00:00 35.3 kg/m2 [facility] BP Systolic 2021-10-21 00:00:00 147 mm[Hg] [facility] Body Weight 2021-10-21 00:00:00 3184 [oz_av] [facility] BP Diastolic 2021-09-20 00:00:00 71 mm[Hg] [facility] Height 2021-09-20 00:00:00 63 [in_i] [facility] BMI (Body Mass 2021-09-20 00:00:00 34.7 kg/m2 [facility] s BP Systolic 2021-09-20 00:00:00 128 mm[Hg] [facility] Body Weight 2021-09-20 00:00:00 3137 [oz_av] [facility] BP Diastolic 2021-07-31 00:00:00 90 mm[Hg] [facility] Height 2021-07-31 00:00:00 63 [in_i] [facility] BMI (Body Mass 2021-07-31 00:00:00 34.9 kg/m2 [facility] s BP Systolic 2021-07-31 00:00:00 123 mm[Hg] [facility] Body Weight 2021-07-31 00:00:00 3153.6 [oz_av] [facility] s BP Diastolic 2021-07-23 00:00:00 85 mm[Hg] [facility] Height 2021-07-23 00:00:00 63 [in_i] [facility] BMI (Body Mass 2021-07-23 00:00:00 35.6 kg/m2 [facility] BP Systolic 2021-07-23 00:00:00 151 mm[Hg] [facility] s Body Weight 2021-07-23 00:00:00 3216 [oz_av] [facility] s BP Diastolic 2021-06-24 00:00:00 81 mm[Hg] [facility] Height 2021-06-24 00:00:00 63 [in_i] [facility] BMI (Body Mass 2021-06-24 00:00:00 36.8 kg/m2 [facility] BP Systolic 2021-06-24 00:00:00 138 mm[Hg] [facility] s Body Weight 2021-06-24 00:00:00 3328 [oz_av] [facility] BP Diastolic 2021-05-30 00:00:00 84 mm[Hg] [facility] Height 2021-05-30 00:00:00 63 [in_i] [facility] BMI (Body Mass 2021-05-30 00:00:00 36.5 kg/m2 [facility] BP Systolic 2021-05-30 00:00:00 144 mm[Hg] [facility] Body Weight 2021-05-30 00:00:00 3296 [oz_av] [facility] BP Diastolic 2021-04-09 00:00:00 68 mm[Hg] [facility] Height 2021-04-09 00:00:00 63 [in_i] [facility] BMI (Body Mass 2021-04-09 00:00:00 34.4 kg/m2 [facility] s BP Systolic 2021-04-09 00:00:00 143 mm[Hg] [facility] Body Weight 2021-04-09 00:00:00 3107.2 [oz_av] [facility] BP Diastolic 2021-03-14 00:00:00 80 mm[Hg] [facility] Height 2021-03-14 00:00:00 63 [in_i] [facility] BMI (Body Mass 2021-03-14 00:00:00 34.9 kg/m2 [facility] BP Systolic 2021-03-14 00:00:00 145 mm[Hg] [facility] Body Weight 2021-03-14 00:00:00 3155.2 [oz_av] [facility] BP Diastolic 2021-03-04 00:00:00 76 mm[Hg] [facility] Height 2021-03-04 00:00:00 63 [in_i] [facility] BMI (Body Mass 2021-03-04 00:00:00 36.2 kg/m2 [facility] BP Systolic 2021-03-04 00:00:00 139 mm[Hg] [facility] Body Weight 2021-03-04 00:00:00 3270.4 [oz_av] [facility] BP Diastolic 2021-02-25 00:00:00 71 mm[Hg] [facility] Height 2021-02-25 00:00:00 63 [in_i] [facility] BMI (Body Mass 2021-02-25 00:00:00 36.5 kg/m2 [facility] BP Systolic 2021-02-25 00:00:00 131 mm[Hg] [facility] Body Weight 2021-02-25 00:00:00 3292.8 [oz_av] [facility] s BP Diastolic 2021-01-14 00:00:00 85 mm[Hg] [facility] Height 2021-01-14 00:00:00 63 [in_i] [facility] BMI (Body Mass 2021-01-14 00:00:00 35.3 kg/m2 [facility] BP Systolic 2021-01-14 00:00:00 137 mm[Hg] [facility] Body Weight 2021-01-14 00:00:00 3184 [oz_av] [facility] BP Diastolic 2020-10-16 00:00:00 61 mm[Hg] [facility] Height 2020-10-16 00:00:00 63 [in_i] [facility] BMI (Body Mass 2020-10-16 00:00:00 34.4 kg/m2 [facility] BP Systolic 2020-10-16 00:00:00 120 mm[Hg] [facility] Body Weight 2020-10-16 00:00:00 3104 [oz_av] [facility] BP Diastolic 2020-09-28 00:00:00 86 mm[Hg] [facility] Height 2020-09-28 00:00:00 63 [in_i] [facility] BMI (Body Mass 2020-09-28 00:00:00 33.9 kg/m2 [facility] BP Systolic 2020-09-28 00:00:00 129 mm[Hg] [facility] Body Weight 2020-09-28 00:00:00 3062.4 [oz_av] [facility] s BP Diastolic 2020-08-20 00:00:00 79 mm[Hg] [facility] Height 2020-08-20 00:00:00 63 [in_i] [facility] BMI (Body Mass 2020-08-20 00:00:00 33 kg/m2 [facility] s BP Systolic 2020-08-20 00:00:00 142 mm[Hg] [facility] Body Weight 2020-08-20 00:00:00 2979.2 [oz_av] [facility] BP Diastolic 2020-08-13 00:00:00 93 mm[Hg] [facility] Height 2020-08-13 00:00:00 63 [in_i] [facility] s BMI (Body Mass 2020-08-13 00:00:00 33.2 kg/m2 [facility] BP Systolic 2020-08-13 00:00:00 149 mm[Hg] [facility] Body Weight 2020-08-13 00:00:00 3001.6 [oz_av] [facility] s BP Diastolic 2020-07-26 00:00:00 74 mm[Hg] [facility] Height 2020-07-26 00:00:00 63 [in_i] [facility] s BMI (Body Mass 2020-07-26 00:00:00 32.7 kg/m2 [facility] s BP Systolic 2020-07-26 00:00:00 133 mm[Hg] [facility] Body Weight 2020-07-26 00:00:00 2956.8 [oz_av] [facility] Systolic (mm Hg) 2022-09-04 19:00:00 [facility] francisca Cevallos Diastolic (mm Hg) 2022-09-04 19:00:00 [facility] Heart Rate 2022-09-04 19:00:00 Vandana Cevallos Temperature Oral (F) 2022-09-04 19:00:00 [facility] 2022-09-04 15:52:00 5 [ft_i] [facility] BMI Calculated 2022-09-04 15:52:00 [facility] Weight 2022-09-04 15:52:00 [facility] Heart Rate 2021-10-14 16:25:00 [facility] Respitory Rate 2021-10-14 16:25:00 [facility] Systolic (mm Hg) 2021-10-14 16:25:00 [facility] Diastolic (mm Hg) 2021-10-14 16:25:00 [facility] Heart Rate 2021-10-14 16:08:00 [facility] Respitory Rate 2021-10-14 16:08:00 [facility] Systolic (mm Hg) 2021-10-14 16:08:00 [facility] Diastolic (mm Hg) 2021-10-14 16:08:00 [facility] Heart Rate 2021-10-14 15:53:00 [facility] Respitory Rate 2021-10-14 15:53:00 [facility] Systolic (mm Hg) 2021-10-14 15:53:00 [facility] Diastolic (mm Hg) 2021-10-14 15:53:00 [facility] Height 2021-10-14 13:07:00 160.02 cm [facility] Weight 2021-10-14 13:07:00 [facility] BMI Calculated 2021-10-14 13:07:00 [facility] Heart Rate 2021-04-05 16:11:00 [facility] Systolic (mm Hg) 2021-04-05 16:11:00 [facility] Diastolic (mm Hg) 2021-04-05 16:11:00 [facility] Height 2021-04-05 16:11:00 160.02 cm [facility] Weight 2021-04-05 16:11:00 [facility] BMI Calculated 2021-04-05 16:11:00 [facility] Systolic (mm Hg) 2020-03-09 17:28:00 [facility] Diastolic (mm Hg) 2020-03-09 17:28:00 [facility] Heart Rate 2020-03-09 17:28:00 [facility] Height 2020-03-09 17:28:00 160.02 cm [facility] Weight 2020-03-09 17:28:00 [facility] BMI Calculated 2020-03-09 17:28:00 [facility] Systolic (mm Hg) 2020-01-12 02:03:00 [facility] Diastolic (mm Hg) 2020-01-12 02:03:00 [facility] Respitory Rate 2020-01-12 02:03:00 [facility] Heart Rate 2020-01-12 02:03:00 [facility] Temperature Oral (F) 2020-01-12 02:03:00 98.6 F [facility] Height 2020-01-11 22:44:00 160.02 cm [facility] BMI Calculated 2020-01-11 22:44:00 [facility] Weight 2020-01-11 22:44:00 [facility] Systolic (mm Hg) 2020-01-11 22:44:00 [facility] Diastolic (mm Hg) 2020-01-11 22:44:00 [facility] Heart Rate 2020-01-11 22:44:00 [facility] Respitory Rate 2020-01-11 22:44:00 [facility] Temperature Oral (F) 2020-01-11 22:44:00 98.8 F [facility] Systolic (mm Hg) 2018-12-31 15:55:00 [facility] Diastolic (mm Hg) 2018-12-31 15:55:00 [facility] Heart Rate 2018-12-31 15:55:00 [facility] Temperature Oral (F) 2018-12-31 15:55:00 98.9 F [facility] Height 2018-12-31 15:55:00 160.02 cm [facility] Weight 2018-12-31 15:55:00 [facility] BMI Calculated 2018-12-31 15:55:00 [facility] BMI Calculated 2018-09-22 20:52:00 [facility] Height 2018-09-22 20:52:00 160.02 cm [facility] Weight 2018-09-22 20:52:00 [facility] Systolic (mm Hg) 2018-09-22 20:52:00 [facility] Diastolic (mm Hg) 2018-09-22 20:52:00 [facility] Heart Rate 2018-09-22 20:52:00 [facility] Temperature Oral (F) 2018-09-22 20:52:00 98.3 F [facility] Systolic (mm Hg) 2018-09-03 13:41:00 [facility] Diastolic (mm Hg) 2018-09-03 13:41:00 [facility] Temperature Oral (F) 2018-09-03 13:41:00 98.7 F [facility] Heart Rate 2018-09-03 13:41:00 [facility] Height 2018-09-03 13:41:00 160.02 cm [facility] BMI Calculated 2018-09-03 13:41:00 [facility] Weight 2018-09-03 13:41:00 [facility] Height 2018-07-28 18:46:00 160.02 cm [facility] Weight 2018-07-28 18:46:00 [facility] BMI Calculated 2018-07-28 18:46:00 [facility] Respitory Rate 2018-07-28 18:46:00 [facility] Heart Rate 2018-07-28 18:46:00 [facility] Systolic (mm Hg) 2018-07-28 18:46:00 [facility] Diastolic (mm Hg) 2018-07-28 18:46:00 [facility] Weight 2018-06-14 18:55:00 [facility] BMI Calculated 2018-06-14 18:55:00 [facility] Height 2018-06-14 18:55:00 160.02 cm [facility] Systolic (mm Hg) 2018-06-14 18:55:00 [facility] Diastolic (mm Hg) 2018-06-14 18:55:00 [facility] Temperature Oral (F) 2018-06-14 18:55:00 97.7 F [facility] Heart Rate 2018-06-14 18:55:00 [facility] Temperature Oral (F) 2018-01-05 20:02:00 99 F [facility] Heart Rate 2018-01-05 20:02:00 [facility] Height 2018-01-05 20:02:00 160.02 cm [facility] Weight 2018-01-05 20:02:00 [facility] BMI Calculated 2018-01-05 20:02:00 [facility] Systolic (mm Hg) 2018-01-05 20:02:00 [facility] Diastolic (mm Hg) 2018-01-05 20:02:00 [facility] BMI Calculated 2017-10-06 19:44:00 [facility] Weight 2017-10-06 19:44:00 [facility] Height 2017-10-06 19:44:00 160.02 cm [facility] Heart Rate 2017-10-06 19:44:00 [facility] Temperature Oral (F) 2017-10-06 19:44:00 98.4 F [facility] Systolic (mm Hg) 2017-10-06 19:44:00 [facility] Diastolic (mm Hg) 2017-10-06 19:44:00 [facility] Temperature Oral (F) 2017-07-02 19:47:00 98.4 F [facility] BMI Calculated 2017-07-02 19:47:00 [facility] Height 2017-07-02 19:47:00 160.02 cm [facility] Systolic (mm Hg) 2017-07-02 19:47:00 [facility] Diastolic (mm Hg) 2017-07-02 19:47:00 [facility] Weight 2017-07-02 19:47:00 [facility] Systolic (mm Hg) 2017-06-09 18:55:00 [facility] Diastolic (mm Hg) 2017-06-09 18:55:00 [facility] Height 2017-06-09 18:55:00 160.02 cm [facility] Weight 2017-06-09 18:55:00 [facility] BMI Calculated 2017-06-09 18:55:00 [facility] Heart Rate 2017-06-09 18:55:00 [facility] Temperature Oral (F) 2017-06-09 18:55:00 98.3 F [facility] BMI Calculated 2017-03-31 19:54:00 [facility] Weight 2017-03-31 19:54:00 [facility] Height 2017-03-31 19:54:00 160.02 cm [facility] Temperature Oral (F) 2017-03-31 19:54:00 99.0 F [facility] Systolic (mm Hg) 2017-03-31 19:54:00 [facility] Diastolic (mm Hg) 2017-03-31 19:54:00 [facility] Weight 2017-02-23 19:45:00 [facility] BMI Calculated 2017-02-23 19:45:00 [facility] Height 2017-02-23 19:45:00 160.02 cm [facility] Systolic (mm Hg) 2017-02-23 19:45:00 [facility] Diastolic (mm Hg) 2017-02-23 19:45:00 [facility] Temperature Oral (F) 2017-02-23 19:45:00 97.9 F [facility] Systolic (mm Hg) 2016-03-12 19:37:00 [facility] Diastolic (mm Hg) 2016-03-12 19:37:00 [facility] Heart Rate 2016-03-12 19:37:00 [facility] Weight 2016-03-12 19:37:00 [facility] BMI Calculated 2016-03-12 19:37:00 [facility] Height 2016-03-12 19:37:00 160.02 cm [facility] Respitory Rate 2016-03-12 19:37:00 [facility] Respitory Rate 2015-09-16 23:31:00 [facility] Heart Rate 2015-09-16 23:31:00 [facility] Systolic (mm Hg) 2015-09-16 23:31:00 [facility] Diastolic (mm Hg) 2015-09-16 23:31:00 [facility] BMI Calculated 2015-09-16 21:59:00 [facility] Weight 2015-09-16 21:59:00 [facility] Temperature Oral (F) 2015-09-16 21:59:00 98.0 F [facility] Heart Rate 2015-09-16 21:59:00 [facility] Respitory Rate 2015-09-16 21:59:00 [facility] Height 2015-09-16 21:59:00 160.02 cm [facility] Systolic (mm Hg) 2015-09-16 21:59:00 [facility] Diastolic (mm Hg) 2015-09-16 21:59:00 [facility] BMI Calculated 2015-03-14 20:38:00 [facility] Weight 2015-03-14 20:38:00 [facility] Height 2015-03-14 20:38:00 160.02 cm [facility] Heart Rate 2015-03-14 20:38:00 [facility] Temperature Oral (F) 2015-03-14 20:38:00 97.9 F [facility] Systolic (mm Hg) 2015-03-14 20:38:00 [facility] Diastolic (mm Hg) 2015-03-14 20:38:00 [facility] Systolic (mm Hg) 2013-11-30 21:22:00 [facility] Diastolic (mm Hg) 2013-11-30 21:22:00 [facility] Respitory Rate 2013-11-30 21:22:00 [facility] Heart Rate 2013-11-30 21:22:00 [facility] Systolic (mm Hg) 2013-11-30 19:00:00 [facility] Diastolic (mm Hg) 2013-11-30 19:00:00 [facility] Heart Rate 2013-11-30 19:00:00 [facility] Respitory Rate 2013-11-30 19:00:00 [facility] Weight 2013-11-30 17:06:00 [facility] Height 2013-11-30 17:06:00 160.02 cm [facility] BMI Calculated 2013-11-30 17:06:00 [facility] Temperature Oral (F) 2013-11-30 17:06:00 98.2 F [facility] Respitory Rate 2013-11-30 17:06:00 [facility] Heart Rate 2013-11-30 17:06:00 [facility] Diastolic (mm Hg) 2013-11-30 17:06:00 [facility] Systolic (mm Hg) 2013-11-30 17:06:00 [facility] Procedures Procedure Date / Time Performing Clinician Source Performed MAMMO, screening, digital, 2022-11-10 00:00:00 [facility] EXTERNAL PROVIDER - ADC 2022-10-27 05:01:00 Doctor Unassigned, [facility] REFERRAL [facility] REFERRAL- REQUEST/RESPONSE 2022-09-22 05:01:00 Doctor Unassigned , [facility] CT, head, w/o contrast 2022-02-24 00:00:00 [facility] URINE CULTURE 2021-09-23 00:00:00 Provider, Not In [facility] ospital System POC URINALYSIS DIPSTICK 2021-08-21 19:36:00 George Emily [facility] [id number] 2021-08-21 19:36:00 George Emily [facility] Cholecystectomy 2013-03-30 06:00:00 [facility] Bilateral tubal ligation [facility] Cystoscopy [facility] Carpal Tunnel Surgery [facility] Cholecystectomy [facility] Tubal Ligation [facility] Plan of Care Planned Activity Planned Date Details Comments Source Future Scheduled Test 2023-01-11 Screening for [facility] 03:08:05 malignant neoplasm of colon (procedure) [code = 104742073] Future Scheduled Test 2023-01-11 Screening for [facility] 03:08:05 malignant neoplasm of colon (procedure) [code = 576347715] Future Scheduled Test 2023-01-11 Screening for [facility] 03:08:05 malignant neoplasm of colon (procedure) [code = 178806823] Future Scheduled Test 2023-01-11 Hepatitis C screening [facility] 03:08:05 (procedure) [code = 190068718] Future Scheduled Test 2023-01-11 BREAST CANCER [facility] 03:08:05 SCREENING [code = BREAST CANCER SCREENING] Future Scheduled Test 2023-01-11 SHINGLES VACCINES (1 [facility] 03:08:05 of 2) [code = SHINGLES VACCINES (1 of 2)] Future Scheduled Test 2023-01-11 RSV VACCINES > 60 YR [facility] 03:08:05 (1 - 1-dose 60+ series) [code = RSV VACCINES > 60 YR (1 - 1-dose 60+ series)] Future Scheduled Test 2023-01-11 Screening for [facility] 03:08:05 malignant neoplasm of colon (procedure) [code = 107052576] Future Scheduled Test 2023-01-11 Screening for [facility] 03:08:05 malignant neoplasm of colon (procedure) [code = 678946595] Future Scheduled Test 2023-01-11 65+ PNEUMOCOCCAL Me [facility] 03:08:05 VACCINE (1 - PCV) [code = 65+ PNEUMOCOCCAL VACCINE (1 - PCV)] Future Scheduled Test 2023-01-11 INFLUENZA VACCINE [facility] 03:08:05 (#1) [code = INFLUENZA VACCINE (#1)] Diagnostic Test 2023-01-07 rapid SARS CoV 2 Ag, [facility] Pending 00:00:00 QL IA, respiratory Hospital Clinics specimen [code = rapid SARS CoV 2 Ag, QL [place], respiratory specimen] Diagnostic Test 2023-01-07 rapid strep group A, [facility] Pending 00:00:00 throat [code = rapid Hospita l Clinics strep group A, throat] Diagnostic Test 2023-01-07 rapid flu (A+B) [code [facility] Pending 00:00:00 = rapid flu (A+B)] Hospital Clinics Future Scheduled Test 2022-12-31 Screening for [facility] 17:14:59 malignant neoplasm of colon (procedure) [code = 724878631] Future Scheduled Test 2022-12-31 Screening for [facility] 17:14:59 malignant neoplasm of colon (procedure) [code = 064327711] Future Scheduled Test 2022-12-31 Screening for [facility] 17:14:59 malignant neoplasm of colon (procedure) [code = 261728686] Future Scheduled Test 2022-12-31 Hepatitis C screening [facility] 17:14:59 (procedure) [code = 085721014] Future Scheduled Test 2022-12-31 BREAST CANCER [facility] 17:14:59 SCREENING [code = BREAST CANCER SCREENING] Future Scheduled Test 2022-12-31 SHINGLES VACCINES (1 [facility] 17:14:59 of 2) [code = SHINGLES VACCINES (1 of 2)] Future Scheduled Test 2022-12-31 Screening for [facility] 17:14:59 malignant neoplasm of colon (procedure) [code = 432825385] Future Scheduled Test 2022-12-31 Screening for [facility] 17:14:59 malignant neoplasm of colon (procedure) [code = 435770983] Future Scheduled Test 2022-12-31 65+ PNEUMOCOCCAL [facility] 17:14:59 VACCINE (1 - PCV) [code = 65+ PNEUMOCOCCAL VACCINE (1 - PCV)] Future Scheduled Test 2022-12-31 INFLUENZA VACCINE [facility] 17:14:59 (#1) [code = INFLUENZA VACCINE (#1)] Future Scheduled Test 2022-12-31 Screening for [facility] 17:14:59 malignant neoplasm of colon (procedure) [code = 522470525] Future Scheduled Test 2022-12-31 Screening [facility] 17:14:59 malignant neoplasm of colon (procedure) [code = 076319240] Future Scheduled Test 2022-12-31 Screening [facility] 17:14:59 malignant neoplasm of colon (procedure) [code = 038731368] Future Scheduled Test 2022-12-31 Hepatitis C screening [facility] 17:14:59 (procedure) [code = 978354337] Future Scheduled Test 2022-12-31 [facility] 17:14:59 SCREENING [code = BREAST CANCER SCREENING] Future Scheduled Test 2022-12-31 SHINGLES VACCINES (1 [facility] 17:14:59 of 2) [code = SHINGLES VACCINES (1 of 2)] Future Scheduled Test 2022-12-31 Screening for [facility] 17:14:59 malignant neoplasm of colon (procedure) [code = 585332469] Future Scheduled Test 2022-12-31 Screening [facility] 17:14:59 malignant neoplasm of colon (procedure) [code = 032720305] Future Scheduled Test 2022-12-31 65+ PNEUMOCOCCAL [facility] 17:14:59 VACCINE (1 - PCV) [code = 65+ PNEUMOCOCCAL VACCINE (1 - PCV)] Future Scheduled Test 2022-12-31 INFLUENZA VACCINE [facility] 17:14:59 (#1) [code = INFLUENZA VACCINE (#1)] Future Scheduled Test 2022-12-01 Screening for [facility] 07:11:15 malignant neoplasm of colon (procedure) [code = 982571285] Future Scheduled Test 2022-12-01 Screening [facility] 07:11:15 malignant neoplasm of colon (procedure) [code = 759552503] Future Scheduled Test 2022-12-01 Scre[facility] 07:11:15 malignant neoplasm of colon (procedure) [code = 475409435] Future Scheduled Test 2022-12-01 Hepatitis C screening [facility] 07:11:15 (procedure) [code = 858587684] Future Scheduled Test 2022-12-01 [facility] 07:11:15 SCREENING [code = BREAST CANCER SCREENING] Future Scheduled Test 2022-12-01 SHINGLES VACCINES (1 [facility] 07:11:15 of 2) [code = SHINGLES VACCINES (1 of 2)] Future Scheduled Test 2022-12-01 Scre[facility] 07:11:15 malignant neoplasm of colon (procedure) [code = 410569511] Future Scheduled Test 2022-12-01 [facility] 07:11:15 malignant neoplasm of colon (procedure) [code = 785976031] Future Scheduled Test 2022-12-01 65+ PNEUMOCOCCAL [facility] 07:11:15 VACCINE (1 - PCV) [code = 65+ PNEUMOCOCCAL VACCINE (1 - PCV)] Future Scheduled Test 2022-12-01 INFLUENZA VACCINE [facility] 07:11:15 (#1) [code = INFLUENZA VACCINE (#1)] Future Scheduled Test 2022-12-01 Screening for [facility] 07:11:15 malignant neoplasm of colon (procedure) [code = [id number]] Future Scheduled Test 2022-12-01 [facility] 07:11:15 malignant neoplasm of colon (procedure) [code = 959394599] Future Scheduled Test 2022-12-01 [facility] 07:11:15 malignant neoplasm of colon (procedure) [code = 255278015] Future Scheduled Test 2022-12-01 Hepatitis C screening [facility] 07:11:15 (procedure) [code = 830143440] Future Scheduled Test 2022-12-01 [facility] 07:11:15 SCREENING [code = BREAST CANCER SCREENING] Future Scheduled Test 2022-12-01 SHINGLES VACCINES (1 [facility] 07:11:15 of 2) [code = SHINGLES VACCINES (1 of 2)] Future Scheduled Test 2022-12-01 [facility] 07:11:15 malignant neoplasm of colon (procedure) [code = 625862078] Future Scheduled Test 2022-12-01 [facility] 07:11:15 malignant neoplasm of colon (procedure) [code = 777915130] Future Scheduled Test 2022-12-01 65+ PNEUMOCOCCAL [facility] 07:11:15 VACCINE (1 - PCV) [code = 65+ PNEUMOCOCCAL VACCINE (1 - PCV)] Future Scheduled Test 2022-12-01 INFLUENZA VACCINE [facility] 07:11:15 (#1) [code = INFLUENZA VACCINE (#1)] Future Scheduled Test 2022-12-01 [facility] 07:11:15 malignant neoplasm of colon (procedure) [code = 524740353] Future Scheduled Test 2022-12-01 [facility] 07:11:15 malignant neoplasm of colon (procedure) [code = 789191208] Future Scheduled Test 2022-12-01 [facility] 07:11:15 malignant neoplasm of colon (procedure) [code = 936812040] Future Scheduled Test 2022-12-01 Hepatitis C screening [facility] 07:11:15 (procedure) [code = 256232274] Future Scheduled Test 2022-12-01 [facility] 07:11:15 SCREENING [code = BREAST CANCER SCREENING] Future Scheduled Test 2022-12-01 SHINGLES VACCINES (1 [facility] 07:11:15 of 2) [code = SHINGLES VACCINES (1 of 2)] Future Scheduled Test 2022-12-01 [facility] 07:11:15 malignant neoplasm of colon (procedure) [code = 879436098] Future Scheduled Test 2022-12-01 [facility] 07:11:15 malignant neoplasm of colon (procedure) [code = 683662409] Future Scheduled Test 2022-12-01 65+ PNEUMOCOCCAL [facility] 07:11:15 VACCINE (1 - PCV) [code = 65+ PNEUMOCOCCAL VACCINE (1 - PCV)] Future Scheduled Test 2022-12-01 INFLUENZA VACCINE [facility] 07:11:15 (#1) [code = INFLUENZA VACCINE (#1)] Future Scheduled Test 2022-10-26 [facility] 16:08:55 malignant neoplasm of colon (procedure) [code = 686403784] Future Scheduled Test 2022-10-26 [facility] 16:08:55 malignant neoplasm of colon (procedure) [code = 424556400] Future Scheduled Test 2022-10-26 [facility] 16:08:55 malignant neoplasm of colon (procedure) [code = 107084146] Future Scheduled Test 2022-10-26 Hepatitis C screening [facility] 16:08:55 (procedure) [code = 358102807] Future Scheduled Test 2022-10-26 [facility] 16:08:55 SCREENING [code = BREAST CANCER SCREENING] Future Scheduled Test 2022-10-26 SHINGLES VACCINES (1 [facility] 16:08:55 of 2) [code = SHINGLES VACCINES (1 of 2)] Future Scheduled Test 2022-10-26 [facility] 16:08:55 malignant neoplasm of colon (procedure) [code = 308630777] Future Scheduled Test 2022-10-26 [facility] 16:08:55 malignant neoplasm of colon (procedure) [code = 802636486] Future Scheduled Test 2022-10-26 65+ PNEUMOCOCCAL [facility] 16:08:55 VACCINE (1 - PCV) [code = 65+ PNEUMOCOCCAL VACCINE (1 - PCV)] Future Scheduled Test 2022-10-26 INFLUENZA VACCINE [facility] 16:08:55 [code = INFLUENZA VACCINE] Future Scheduled Test 2022-10-26 [facility] 16:08:55 malignant neoplasm of colon (procedure) [code = 835804908] Future Scheduled Test 2022-10-26 [facility] 16:08:55 malignant neoplasm of colon (procedure) [code = 515174029] Future Scheduled Test 2022-10-26 [facility] 16:08:55 malignant neoplasm of colon (procedure) [code = 983923497] Future Scheduled Test 2022-10-26 Hepatitis C screening [facility] 16:08:55 (procedure) [code = 676009508] Future Scheduled Test 2022-10-26 [facility]ER [facility] 16:08:55 SCREENING [code = BREAST CANCER SCREENING] Future Scheduled Test 2022-10-26 SHINGLES VACCINES (1 [facility] 16:08:55 of 2) [code = SHINGLES VACCINES (1 of 2)] Future Scheduled Test 2022-10-26 [facility] 16:08:55 malignant neoplasm of colon (procedure) [code = 853606090] Future Scheduled Test 2022-10-26 [facility] 16:08:55 malignant neoplasm of colon (procedure) [code = 822303099] Future Scheduled Test 2022-10-26 65+ PNEUMOCOCCAL [facility] 16:08:55 VACCINE (1 - PCV) [code = 65+ PNEUMOCOCCAL VACCINE (1 - PCV)] Future Scheduled Test 2022-10-26 INFLUENZA VACCINE [facility] 16:08:55 [code = INFLUENZA VACCINE] Future Scheduled Test 2022-10-17 [facility] 11:25:39 malignant neoplasm of colon (procedure) [code = 067833593] Future Scheduled Test 2022-10-17 [facility] 11:25:39 malignant neoplasm of colon (procedure) [code = 122914157] Future Scheduled Test 2022-10-17 [facility] 11:25:39 malignant neoplasm of colon (procedure) [code = 088518698] Future Scheduled Test 2022-10-17 Hepatitis C screening [facility] 11:25:39 (procedure) [code = 921495625] Future Scheduled Test 2022-10-17 [facility] 11:25:39 SCREENING [code = BREAST CANCER SCREENING] Future Scheduled Test 2022-10-17 SHINGLES VACCINES (1 [facility] 11:25:39 of 2) [code = SHINGLES VACCINES (1 of 2)] Future Scheduled Test 2022-10-17 Screening for [facility] 11:25:39 malignant neoplasm of colon (procedure) [code = 243014734] Future Scheduled Test 2022-10-17 Screening for [facility] 11:25:39 malignant neoplasm of colon (procedure) [code = 368784872] Future Scheduled Test 2022-10-17 65+ PNEUMOCOCCAL [facility] 11:25:39 VACCINE (1 - PCV) [code = 65+ PNEUMOCOCCAL VACCINE (1 - PCV)] Future Scheduled Test 2022-10-17 INFLUENZA VACCINE [facility] 11:25:39 [code = INFLUENZA VACCINE] Future Scheduled Test 2022-10-17 [facility] 11:25:39 malignant neoplasm of colon (procedure) [code = 036936981] Future Scheduled Test 2022-10-17 [facility] 11:25:39 malignant neoplasm of colon (procedure) [code = 777399645] Future Scheduled Test 2022-10-17 [facility] 11:25:39 malignant neoplasm of colon (procedure) [code = 113082089] Future Scheduled Test 2022-10-17 Hepatitis C screening [facility] 11:25:39 (procedure) [code = 644459047] Future Scheduled Test 2022-10-17 [facility] 11:25:39 SCREENING [code = BREAST CANCER SCREENING] Future Scheduled Test 2022-10-17 SHINGLES VACCINES (1 [facility] 11:25:39 of 2) [code = SHINGLES VACCINES (1 of 2)] Future Scheduled Test 2022-10-17 [facility] 11:25:39 malignant neoplasm of colon (procedure) [code = 447394232] Future Scheduled Test 2022-10-17 [facility] 11:25:39 malignant neoplasm of colon (procedure) [code = 152236118] Future Scheduled Test 2022-10-17 65+ PNEUMOCOCCAL [facility] 11:25:39 VACCINE (1 - PCV) [code = 65+ PNEUMOCOCCAL VACCINE (1 - PCV)] Future Scheduled Test 2022-10-17 INFLUENZA VACCINE [facility] 11:25:39 [code = INFLUENZA VACCINE] Future Scheduled Test 2022-10-17 [facility] 11:25:39 malignant neoplasm of colon (procedure) [code = 661550634] Future Scheduled Test 2022-10-17 [facility] 11:25:39 malignant neoplasm of colon (procedure) [code = 295942575] Future Scheduled Test 2022-10-17 [facility] 11:25:39 malignant neoplasm of colon (procedure) [code = 458937011] Future Scheduled Test 2022-10-17 Hepatitis C screening [facility] 11:25:39 (procedure) [code = 968017211] Future Scheduled Test 2022-10-17 [facility] CANCER [facility] 11:25:39 SCREENING [code = BREAST CANCER SCREENING] Future Scheduled Test 2022-10-17 SHINGLES VACCINES (1 [facility] 11:25:39 of 2) [code = SHINGLES VACCINES (1 of 2)] Future Scheduled Test 2022-10-17 Screening for [facility] 11:25:39 malignant neoplasm of colon (procedure) [code = 613472620] Future Scheduled Test 2022-10-17 Screening for [facility] 11:25:39 malignant neoplasm of colon (procedure) [code = 654467438] Future Scheduled Test 2022-10-17 65+ PNEUMOCOCCAL [facility] 11:25:39 VACCINE (1 - PCV) [code = 65+ PNEUMOCOCCAL VACCINE (1 - PCV)] Future Scheduled Test 2022-10-17 INFLUENZA VACCINE [facility] 11:25:39 [code = INFLUENZA VACCINE] Future Scheduled Test 2022-10-02 Screening for [facility] 23:55:18 malignant neoplasm of colon (procedure) [code = 124314228] Future Scheduled Test 2022-10-02 Screening for [facility] 23:55:18 malignant neoplasm of colon (procedure) [code = 805752631] Future Scheduled Test 2022-10-02 Screening for [facility] 23:55:18 malignant neoplasm of colon (procedure) [code = 344592959] Future Scheduled Test 2022-10-02 Hepatitis C screening [facility] 23:55:18 (procedure) [code = 843888031] Future Scheduled Test 2022-10-02 BREAST CANCER [facility] 23:55:18 SCREENING [code = BREAST CANCER SCREENING] Future Scheduled Test 2022-10-02 SHINGLES VACCINES (1 [facility] 23:55:18 of 2) [code = SHINGLES VACCINES (1 of 2)] Future Scheduled Test 2022-10-02 Screening for [facility] 23:55:18 malignant neoplasm of colon (procedure) [code = 053185687] Future Scheduled Test 2022-10-02 Screening for [facility] 23:55:18 malignant neoplasm of colon (procedure) [code = 442605592] Future Scheduled Test 2022-10-02 65+ PNEUMOCOCCAL [facility] 23:55:18 VACCINE (1 - PCV) [code = 65+ PNEUMOCOCCAL VACCINE (1 - PCV)] Future Scheduled Test 2022-10-02 INFLUENZA VACCINE [facility] 23:55:18 [code = INFLUENZA VACCINE] Future Scheduled Test 2022-10-02 Screening for [facility] 23:55:18 malignant neoplasm of colon (procedure) [code = 621123071] Future Scheduled Test 2022-10-02 Scre[facility] 23:55:18 malignant neoplasm of colon (procedure) [code = 899698531] Future Scheduled Test 2022-10-02 [facility] 23:55:18 malignant neoplasm of colon (procedure) [code = 994706710] Future Scheduled Test 2022-10-02 Hepatitis C screening [facility] 23:55:18 (procedure) [code = 028099968] Future Scheduled Test 2022-10-02 BREAST CANCER [facility] 23:55:18 SCREENING [code = BREAST CANCER SCREENING] Future Scheduled Test 2022-10-02 SHINGLES VACCINES (1 [facility] 23:55:18 of 2) [code = SHINGLES VACCINES (1 of 2)] Future Scheduled Test 2022-10-02 Screening for [facility] 23:55:18 malignant neoplasm of colon (procedure) [code = 624962671] Future Scheduled Test 2022-10-02 Screening for [facility] 23:55:18 malignant neoplasm of colon (procedure) [code = 099561935] Future Scheduled Test 2022-10-02 65+ PNEUMOCOCCAL [facility] 23:55:18 VACCINE (1 - PCV) [code = 65+ PNEUMOCOCCAL VACCINE (1 - PCV)] Future Scheduled Test 2022-10-02 INFLUENZA VACCINE [facility] 23:55:18 [code = INFLUENZA VACCINE] Future Scheduled Test 2022-09-12 [facility] 02:32:49 malignant neoplasm of colon (procedure) [code = 579055926] Future Scheduled Test 2022-09-12 [facility] 02:32:49 malignant neoplasm of colon (procedure) [code = 444253577] Future Scheduled Test 2022-09-12 [facility] 02:32:49 malignant neoplasm of colon (procedure) [code = 341024062] Future Scheduled Test 2022-09-12 Hepatitis C screening [facility] 02:32:49 (procedure) [code = 455801350] Future Scheduled Test 2022-09-12 [facility] 02:32:49 malignant neoplasm of cervix (procedure) [code = 899606868] Future Scheduled Test 2022-09-12 BREAST CANCER [facility] 02:32:49 SCREENING [code = BREAST CANCER SCREENING] Future Scheduled Test 2022-09-12 SHINGLES VACCINES (1 [facility] 02:32:49 of 2) [code = SHINGLES VACCINES (1 of 2)] Future Scheduled Test 2022-09-12 Scre[facility] 02:32:49 malignant neoplasm of colon (procedure) [code = 859964754] Future Scheduled Test 2022-09-12 Scre[facility] 02:32:49 malignant neoplasm of colon (procedure) [code = 914736792] Future Scheduled Test 2022-09-12 65+ PNEUMOCOCCAL [facility] 02:32:49 VACCINE (1 - PCV) [code = 65+ PNEUMOCOCCAL VACCINE (1 - PCV)] Future Scheduled Test 2022-09-12 INFLUENZA VACCINE [facility] 02:32:49 [code = INFLUENZA VACCINE] Future Scheduled Test 2022-09-12 Scre[facility] 02:32:49 malignant neoplasm of colon (procedure) [code = 208727888] Future Scheduled Test 2022-09-12 Scre[facility] 02:32:49 malignant neoplasm of colon (procedure) [code = 682002515] Future Scheduled Test 2022-09-12 Scre[facility] 02:32:49 malignant neoplasm of colon (procedure) [code = 160779856] Future Scheduled Test 2022-09-12 Hepatitis C screening [facility] 02:32:49 (procedure) [code = 035610410] Future Scheduled Test 2022-09-12 Scre[facility] 02:32:49 malignant neoplasm of cervix (procedure) [code = 299320409] Future Scheduled Test 2022-09-12 BREAST CANCER [facility] 02:32:49 SCREENING [code = BREAST CANCER SCREENING] Future Scheduled Test 2022-09-12 SHINGLES VACCINES (1 [facility] 02:32:49 of 2) [code = SHINGLES VACCINES (1 of 2)] Future Scheduled Test 2022-09-12 Screening [facility] 02:32:49 malignant neoplasm of colon (procedure) [code = 718928553] Future Scheduled Test 2022-09-12 Scre[facility] 02:32:49 malignant neoplasm of colon (procedure) [code = 239846764] Future Scheduled Test 2022-09-12 65+ PNEUMOCOCCAL [facility] 02:32:49 VACCINE (1 - PCV) [code = 65+ PNEUMOCOCCAL VACCINE (1 - PCV)] Future Scheduled Test 2022-09-12 INFLUENZA VACCINE [facility] 02:32:49 [code = INFLUENZA VACCINE] Future Scheduled Test 2022-07-04 65+ PNEUMOCOCCAL [facility] 13:42:03 VACCINE (1 - PCV) [code = 65+ PNEUMOCOCCAL VACCINE (1 - PCV)] Future Scheduled Test 2022-07-04 INFLUENZA VACCINE [facility] 13:42:03 [code = INFLUENZA VACCINE] Future Scheduled Test 2022-07-04 Hepatitis C screening [facility] 13:42:03 (procedure) [code = 969657776] Future Scheduled Test 2022-07-04 Screening for [facility] 13:42:03 malignant neoplasm of cervix (procedure) [code = 277360755] Future Scheduled Test 2022-07-04 BREAST CANCER [facility] 13:42:03 SCREENING [code = BREAST CANCER SCREENING] Future Scheduled Test 2022-07-04 COLONOSCOPY SCREENING [facility] 13:42:03 [code = COLONOSCOPY SCREENING] Future Scheduled Test 2022-07-04 SHINGLES VACCINES (1 [facility] 13:42:03 of 2) [code = SHINGLES VACCINES (1 of 2)] Future Scheduled Test 2022-07-04 65+ PNEUMOCOCCAL [facility] 13:42:03 VACCINE (1 - PCV) [code = 65+ PNEUMOCOCCAL VACCINE (1 - PCV)] Future Scheduled Test 2022-07-04 INFLUENZA VACCINE [facility] 13:42:03 [code = INFLUENZA VACCINE] Future Scheduled Test 2022-07-04 Hepatitis C screening [facility] 13:42:03 (procedure) [code = 505807381] Future Scheduled Test 2022-07-04 Screening for [facility] 13:42:03 malignant neoplasm of cervix (procedure) [code = 984399215] Future Scheduled Test 2022-07-04 BREAST CANCER [facility] 13:42:03 SCREENING [code = BREAST CANCER SCREENING] Future Scheduled Test 2022-07-04 COLONOSCOPY SCREENING [facility] 13:42:03 [code = COLONOSCOPY SCREENING] Future Scheduled Test 2022-07-04 SHINGLES VACCINES (1 [facility] 13:42:03 of 2) [code = SHINGLES VACCINES (1 of 2)] Future Scheduled Test 2022-07-04 65+ PNEUMOCOCCAL [facility] 13:42:03 VACCINE (1 - PCV) [code = 65+ PNEUMOCOCCAL VACCINE (1 - PCV)] Future Scheduled Test 2022-07-04 INFLUENZA VACCINE [facility] 13:42:03 [code = INFLUENZA VACCINE] Future Scheduled Test 2022-07-04 Hepatitis C screening [facility] 13:42:03 (procedure) [code = 061489799] Future Scheduled Test 2022-07-04 Screening for [facility] 13:42:03 malignant neoplasm of cervix (procedure) [code = 614443599] Future Scheduled Test 2022-07-04 BREAST CANCER [facility] 13:42:03 SCREENING [code = BREAST CANCER SCREENING] Future Scheduled Test 2022-07-04 COLONOSCOPY SCREENING [facility] 13:42:03 [code = COLONOSCOPY SCREENING] Future Scheduled Test 2022-07-04 SHINGLES VACCINES (1 [facility] 13:42:03 of 2) [code = SHINGLES VACCINES (1 of 2)] Future Scheduled Test 2022-07-04 65+ PNEUMOCOCCAL [facility] 13:42:03 VACCINE (1 - PCV) [code = 65+ PNEUMOCOCCAL VACCINE (1 - PCV)] Future Scheduled Test 2022-07-04 INFLUENZA VACCINE [facility] 13:42:03 [code = INFLUENZA VACCINE] Future Scheduled Test 2022-07-04 Hepatitis C screening [facility] 13:42:03 (procedure) [code = 211750406] Future Scheduled Test 2022-07-04 Screening for [facility] 13:42:03 malignant neoplasm of cervix (procedure) [code = 494484079] Future Scheduled Test 2022-07-04 BREAST CANCER [facility] 13:42:03 SCREENING [code = BREAST CANCER SCREENING] Future Scheduled Test 2022-07-04 COLONOSCOPY SCREENING [facility] 13:42:03 [code = COLONOSCOPY SCREENING] Future Scheduled Test 2022-07-04 SHINGLES VACCINES (1 [facility] 13:42:03 of 2) [code = SHINGLES VACCINES (1 of 2)] Future Scheduled Test 2022-07-04 65+ PNEUMOCOCCAL [facility] 13:42:03 VACCINE (1 - PCV) [code = 65+ PNEUMOCOCCAL VACCINE (1 - PCV)] Future Scheduled Test 2022-07-04 INFLUENZA VACCINE [facility] 13:42:03 [code = INFLUENZA VACCINE] Future Scheduled Test 2022-07-04 Hepatitis C screening [facility] 13:42:03 (procedure) [code = 363815578] Future Scheduled Test 2022-07-04 [facility] 13:42:03 malignant neoplasm of cervix (procedure) [code = 592091180] Future Scheduled Test 2022-07-04 BREAST CANCER [facility] 13:42:03 SCREENING [code = BREAST CANCER SCREENING] Future Scheduled Test 2022-07-04 Screening for [facility] 13:42:03 malignant neoplasm of colon (procedure) [code = 382136197] Future Scheduled Test 2022-07-04 SHINGLES VACCINES (1 [facility] 13:42:03 of 2) [code = SHINGLES VACCINES (1 of 2)] Future Scheduled Test 2022-05-22 Hepatitis C screening [facility] 16:12:20 (procedure) [code = 793678150] Future Scheduled Test 2022-05-22 Screening for [facility] 16:12:20 malignant neoplasm of cervix (procedure) [code = 987046052] Future Scheduled Test 2022-05-22 BREAST CANCER [facility] 16:12:20 SCREENING [code = BREAST CANCER SCREENING] Future Scheduled Test 2022-05-22 COLONOSCOPY SCREENING [facility] 16:12:20 [code = COLONOSCOPY SCREENING] Future Scheduled Test 2022-05-22 SHINGLES VACCINES (1 [facility] 16:12:20 of 2) [code = SHINGLES VACCINES (1 of 2)] Future Scheduled Test 2022-05-22 65+ PNEUMOCOCCAL [facility] 16:12:20 VACCINE (1 - PCV) [code = 65+ PNEUMOCOCCAL VACCINE (1 - PCV)] Future Scheduled Test 2022-05-22 INFLUENZA VACCINE [facility] 16:12:20 [code = INFLUENZA VACCINE] Future Scheduled Test 2022-02-04 HEPATITIS B VACCINES [facility] 13:45:17 (1 of 3 - 3-dose series) [code = HEPATITIS B VACCINES (1 of 3 - 3-dose series)] Future Scheduled Test 2022-02-04 Hepatitis C screening [facility] 13:45:17 (procedure) [code = 927097177] Future Scheduled Test 2022-02-04 Screening for [facility] 13:45:17 malignant neoplasm of cervix (procedure) [code = 090470244] Future Scheduled Test 2022-02-04 BREAST CANCER [facility] 13:45:17 SCREENING [code = BREAST CANCER SCREENING] Future Scheduled Test 2022-02-04 COLONOSCOPY SCREENING [facility] 13:45:17 [code = COLONOSCOPY SCREENING] Future Scheduled Test 2022-02-04 SHINGLES VACCINES (1 [facility] 13:45:17 of 2) [code = SHINGLES VACCINES (1 of 2)] Future Scheduled Test 2022-02-04 65+ PNEUMOCOCCAL [facility] 13:45:17 VACCINE (1 - PCV) [code = 65+ PNEUMOCOCCAL VACCINE (1 - PCV)] Future Scheduled Test 2022-02-04 INFLUENZA VACCINE [facility] 13:45:17 [code = INFLUENZA VACCINE] Future Scheduled Test 2022-02-04 HEPATITIS B VACCINES [facility] 13:45:17 (1 of 3 - 3-dose series) [code = HEPATITIS B VACCINES (1 of 3 - 3-dose series)] Future Scheduled Test 2022-02-04 Hepatitis C screening [facility] 13:45:17 (procedure) [code = 397239730] Future Scheduled Test 2022-02-04 Screening for [facility] 13:45:17 malignant neoplasm of cervix (procedure) [code = 379802021] Future Scheduled Test 2022-02-04 BREAST CANCER [facility] 13:45:17 SCREENING [code = BREAST CANCER SCREENING] Future Scheduled Test 2022-02-04 COLONOSCOPY SCREENING [facility] 13:45:17 [code = COLONOSCOPY SCREENING] Future Scheduled Test 2022-02-04 SHINGLES VACCINES (1 [facility] 13:45:17 of 2) [code = SHINGLES VACCINES (1 of 2)] Future Scheduled Test 2022-02-04 65+ PNEUMOCOCCAL [facility] 13:45:17 VACCINE (1 - PCV) [code = 65+ PNEUMOCOCCAL VACCINE (1 - PCV)] Future Scheduled Test 2022-02-04 INFLUENZA VACCINE [facility] 13:45:17 [code = INFLUENZA VACCINE] Future Scheduled Test 2022-01-03 HEPATITIS B VACCINES [facility] 14:11:23 (1 of 3 - 3-dose series) [code = HEPATITIS B VACCINES (1 of 3 - 3-dose series)] Future Scheduled Test 2022-01-03 Hepatitis C screening [facility] 14:11:23 (procedure) [code = 868860703] Future Scheduled Test 2022-01-03 Screening for [facility] 14:11:23 malignant neoplasm of cervix (procedure) [code = 262137029] Future Scheduled Test 2022-01-03 BREAST CANCER [facility] 14:11:23 SCREENING [code = BREAST CANCER SCREENING] Future Scheduled Test 2022-01-03 COLONOSCOPY SCREENING [facility] 14:11:23 [code = COLONOSCOPY SCREENING] Future Scheduled Test 2022-01-03 SHINGLES VACCINES (1 [facility] 14:11:23 of 2) [code = SHINGLES VACCINES (1 of 2)] Future Scheduled Test 2022-01-03 65+ PNEUMOCOCCAL [facility] 14:11:23 VACCINE (1 - PCV) [code = 65+ PNEUMOCOCCAL VACCINE (1 - PCV)] Future Scheduled Test 2022-01-03 INFLUENZA VACCINE [facility] 14:11:23 [code = INFLUENZA VACCINE] Future Scheduled Test 2022-01-03 HEPATITIS B VACCINES [facility] 14:11:23 (1 of 3 - 3-dose series) [code = HEPATITIS B VACCINES (1 of 3 - 3-dose series)] Future Scheduled Test 2022-01-03 Hepatitis C screening [facility] 14:11:23 (procedure) [code = 020650078] Future Scheduled Test 2022-01-03 Screening for [facility] 14:11:23 malignant neoplasm of cervix (procedure) [code = 281776169] Future Scheduled Test 2022-01-03 BREAST CANCER [facility] 14:11:23 SCREENING [code = BREAST CANCER SCREENING] Future Scheduled Test 2022-01-03 COLONOSCOPY SCREENING [facility] 14:11:23 [code = COLONOSCOPY SCREENING] Future Scheduled Test 2022-01-03 SHINGLES VACCINES (1 [facility] 14:11:23 of 2) [code = SHINGLES VACCINES (1 of 2)] Future Scheduled Test 2022-01-03 65+ PNEUMOCOCCAL [facility] 14:11:23 VACCINE (1 - PCV) [code = 65+ PNEUMOCOCCAL VACCINE (1 - PCV)] Future Scheduled Test 2022-01-03 INFLUENZA VACCINE [facility] 14:11:23 [code = INFLUENZA VACCINE] Future Scheduled Test 2021-11-28 HEPATITIS B VACCINES [facility] 00:25:38 (1 of 3 - 3-dose series) [code = HEPATITIS B VACCINES (1 of 3 - 3-dose series)] Future Scheduled Test 2021-11-28 Hepatitis C screening [facility] 00:25:38 (procedure) [code = 146939309] Future Scheduled Test 2021-11-28 Screening for [facility] 00:25:38 malignant neoplasm of cervix (procedure) [code = 342403182] Future Scheduled Test 2021-11-28 BREAST CANCER [facility] 00:25:38 SCREENING [code = BREAST CANCER SCREENING] Future Scheduled Test 2021-11-28 COLONOSCOPY SCREENING [facility] 00:25:38 [code = COLONOSCOPY SCREENING] Future Scheduled Test 2021-11-28 SHINGLES VACCINES (1 [facility] 00:25:38 of 2) [code = SHINGLES VACCINES (1 of 2)] Future Scheduled Test 2021-11-28 65+ PNEUMOCOCCAL [facility] 00:25:38 VACCINE (1 - PCV) [code = 65+ PNEUMOCOCCAL VACCINE (1 - PCV)] Future Scheduled Test 2021-11-28 INFLUENZA VACCINE [facility] 00:25:38 [code = INFLUENZA VACCINE] Future Scheduled Test 2021-11-28 HEPATITIS B VACCINES [facility] 00:25:38 (1 of 3 - 3-dose series) [code = HEPATITIS B VACCINES (1 of 3 - 3-dose series)] Future Scheduled Test 2021-11-28 Hepatitis C screening [facility] 00:25:38 (procedure) [code = 566220243] Future Scheduled Test 2021-11-28 Screening for [facility] 00:25:38 malignant neoplasm of cervix (procedure) [code = 375224618] Future Scheduled Test 2021-11-28 BREAST CANCER [facility] 00:25:38 SCREENING [code = BREAST CANCER SCREENING] Future Scheduled Test 2021-11-28 COLONOSCOPY SCREENING [facility] 00:25:38 [code = COLONOSCOPY SCREENING] Future Scheduled Test 2021-11-28 SHINGLES VACCINES (1 [facility] 00:25:38 of 2) [code = SHINGLES VACCINES (1 of 2)] Future Scheduled Test 2021-11-28 65+ PNEUMOCOCCAL [facility] 00:25:38 VACCINE (1 - PCV) [code = 65+ PNEUMOCOCCAL VACCINE (1 - PCV)] Future Scheduled Test 2021-11-28 INFLUENZA VACCINE [facility] 00:25:38 [code = INFLUENZA VACCINE] Instructions [facility] Clinic s Encounters Start End Encounter Admission Attending Care Care Encounter Source Date/Time Date/Time Type Type Clinicians Facility Department ID 2022-10-30 Outpatient SHIVA [facility] [id number] [facility] 15:09:17 LUCIEN 2022-10-27 Outpatient [facility] [id number] [place] 08:44:52 [id number] [facility] 2022-10-23 Outpatient [facility] [id number] [place] 10:02:35 [id number] [facility] 2022-10-02 Outpatient [facility] [id number] [place] 08:45:47 [id number] [facility] 2022-09-26 Outpatient [facility] [id number] [place] 06:48:56 [id number] [facility] 2021-11-07 Outpatient [facility] [id number] [place] 01:51:34 [id number] [facility] 2021-10-07 Outpatient [facility] [id number] [place] 12:39:58 [id number] [facility] 2021-07-05 Outpatient SHIVA [facility] [id number] [place] 01:03:47 LUCIEN [id number] [facility] 2023-01-07 2023-01-07 Kaitlin [facility] [place] 11 [place] 00:00:00 00:00:00 Umair, [facility] mmuni SLICING MACHINE OPERATOR-MORTGAGE CLERK-B Hospital - ty C: [address] [facility], [address], [place] [address] , Ph. 2022-12-28 2022-12-28 Outpatient [facility] 4 [place] 00:00:00 00:00:00 1011 [facility] 2022-12-08 2022-12-08 Outpatient BECKY [facility] [id number] [facility] 13:07:00 23:59:00 JOSE M COMBS 87 2022-12-05 2022-12-05 Outpatient [facility] [id number] [place] 09:45:00 09:45:00 PAULO Castillo 2022-12-02 2022-12-02 Kaitlin [facility] [place] 05 [place] 00:00:00 00:00:00 Julianne Block Md mamadou SLICING MACHINE OPERATOR-MORTGAGE CLERK-B Hospital - ty C: [address] [facility], [address], [place] [address] , Ph. 2022-11-29 2022-11-29 Outpatient [facility] [id number] [place] 00:00:00 00:00:00 0902 [facility] 2022-11-29 2022-11-29 Outpatient [facility] [id number] [place] 00:00:00 00:00:00 0905 Commun i ty Hospita [facility] 2022-11-18 2022-11-18 [facility] 1.2.840.114 [id number] [place] 14:15:00 14:51:10 Visit Paulo [facility] [id number] [facility] 9.2.7.2.686 [address] [id number] 1 2022-11-11 2022-11-11 Outpatient [facility] [id number] [place] 08:30:00 08:30:00 [facility] 2022-11-10 2022-11-10 Kaitlin [facility] [place] [id number] [place] 00:00:00 00:00:00 Umair [facility] - ty C: [address] [facility], [address], [place] [address] , Ph. 2022-11-07 2022-11-07 Outpatient [facility] [id number] [place] 00:00:00 00:00:00 0814 [facility] 2022-11-06 2022-11-06 Outpatient [facility] [id number] [place] 00:00:00 00:00:00 0810 [facility] 2022-11-06 2022-11-06 Kaitlin [facility] [place] 00:00:00 00:00:00 [facility] mmuni SLICING MACHINE OPERATOR-MORTGAGE CLERK-B Hospital - ty C: [address] [facility], [address], [place] [address] , Ph. 2022-11-04 2022-11-04 Outpatient SHAR [facility] [id number] [place] 14:00:00 14:00:00 PAULO Anna 2022-11-04 2022-11-04 Outpatient GC_GCBZW_Ka PRIV PRIV [id number] [facility] 00:00:00 00:00:00 diyala_S [id number] Medic al 2022-10-27 2022-10-27 Office Shar [facility] 1.2.840.114 [id number] [place] 09:15:00 09:34:18 Visit Paulo SUGAR 350.1.13.[address] [facility] 9.2.7.2.686 [address] [id number] 1 2022-10-27 2022-10-27 Orders Doctor ELVA 1.2.840.114 [id number] Univers 00:00:00 00:00:00 Only Unassigned, EDIE 350.1.13.10 ity of [place] [facility] 4.2.7.2.686 [place] as [id number] [facility] [address] 2022-10-23 2022-10-23 Emergency E SHEA HILL [facility] 7584 [facility] 08:10:00 10:51:00 2022-10-21 2022-10-21 Emergency E JABARI [facility] 7583 [facility] 09:28:00 13:14:00 JULIA 2022-10-20 2022-10-20 Kaitlin [facility] [place] [id number] [place] 00:00:00 00:00:00 Umair [facility] mamadou SLICING MACHINE OPERATOR-MORTGAGE CLERK-B Hospital - ty C: [address] [facility], [address], [place] [address] , Ph. 2022-10-17 2022-10-17 Outpatient SHIVA [facility] [id number] [facility] 11:36:00 23:59:00 LUCIEN 2022-10-17 2022-10-17 External LOUISA [facility] 1.2.840.114 [id number] [place] 11:30:00 11:45:00 Contact Lucien Sandoval [facility] [id number] [facility] 9.2.7.2.686 [id number] 2022-10-06 2022-10-06 Outpatient [facility] [id number] [facility] 10:28:00 23:59:00 MATTHEW Escamilla 2022-10-06 2022-10-06 Outpatient [facility] [id number] [place] 10:30:00 10:30:00 MATTHEW Escamilla [facility] 2022-10-06 2022-10-06 Outpatient [facility] [id number] [place] 00:00:00 00:00:00 0724 Commun i ty Hosp[facility] 2022-10-06 2022-10-06 Kaitlin [facility] [place] [id number] [place] 00:00:00 00:00:00 Umair [facility] arelii SLICING MACHINE OPERATOR-MORTGAGE CLERK-B Hospital - ty C: [address] [facility], [address], [place] [address] , Ph. 2022-10-03 2022-10-03 Outpatient [facility] [id number] [place] 00:00:00 00:00:00 0707 [facility] 2022-10-03 2022-10-03 Outpatient [facility] [id number] [place] 00:00:00 00:00:00 0710 [facility] 2022-09-22 2022-09-22 Orders Doctor ELVA 1.2.840.114 [id number] Univers 00:00:00 00:00:00 Only Unassigned, EDIE 350.1.13.10 ity of [place] [facility] 4.2.7.2.686 [place] as [id number] [place] [id number] [address] 2022-09-11 2022-09-11 Kaitlin [facility] [place] 15 [place] 00:00:00 00:00:00 [facility] SLICING MACHINE OPERATOR-MORTGAGE CLERK-B Hospital - ty C: [address] [facility], [address], [place] [address] , Ph. 2022-09-04 2022-09-04 Emergency [facility] [id number] Memoria 15:44:51 19:16:00 Mart 76 l Price [facility] 2022-09-04 2022-09-04 Emergency Jhony GARCIA, FB [facility]FB 7576 MHFB 10:44:00 14:16:00 ARUN 2022-09-01 2022-09-01 Outpatient [facility] [id number] [place] 00:00:00 00:00:00 0615 [facility] i [facility] 2022-09-01 2022-09-01 Kaitlin [facility] [place] [id number] [place] 00:00:00 00:00:00 [facility] SLICING MACHINE OPERATOR-MORTGAGE CLERK-B Hospital - ty C: [address] [facility], [address], [place] [address] , Ph. 2022-08-29 2022-08-29 Outpatient [facility] [id number] [place] 00:00:00 00:00:00 0602 Commun i ty Hosp[facility] 2022-08-29 2022-08-29 Outpatient [facility] [id number] [place] 00:00:00 00:00:00 0605 [facility] 2022-08-12 2022-08-12 Kaitlin [facility] [place] [id number] [place] 00:00:00 00:00:00 Umair [facility] mmuni SLICING MACHINE OPERATOR-MORTGAGE CLERK-B Hospital - ty C: [address] [facility], [address], [place] [address] , Ph. 2022-08-04 2022-08-04 Outpatient [facility] [id number] [place] 00:00:00 00:00:00 0516 [facility] 2022-07-21 2022-07-21 Outpatient [facility] [id number] [place] 00:00:00 00:00:00 0424 [facility] 2022-07-18 2022-07-18 Kaitlin [facility] [place] [id number] [place] 00:00:00 00:00:00 Umair [facility] areliuni SLICING MACHINE OPERATOR-MORTGAGE CLERK-B Hospital - ty C: [address] [facility], [address], [place] [address] , Ph. 2022-07-08 2022-07-08 Outpatient [facility] [id number] [place] 00:00:00 00:00:00 0411 [facility] 2022-07-08 2022-07-08 Outpatient [facility] [id number] [place] 00:00:00 00:00:00 0421 [facility] i [facility] 2022-07-08 2022-07-08 Kaitlin [facility] [place] [id number] [place] 00:00:00 00:00:00 Umair [facility] mmuni SLICING MACHINE OPERATOR-MORTGAGE CLERK-B Hospital - ty C: [address] [facility], [address], [place] [address] , Ph. 2022-06-09 2022-06-09 Outpatient [facility] [id number] [place] 00:00:00 00:00:00 0313 [facility] 2022-04-11 2022-04-11 Outpatient [facility] [id number] [place] 00:00:00 00:00:00 0120 [facility] 2022-03-27 2022-03-27 Outpatient [facility] [id number] [place] 00:00:00 00:00:00 1229 [facility] 2022-03-27 2022-03-27 Emily [facility] [place] [id number] [place] 00:00:00 00:00:00 Julianne Longoria APRN, MSN, Hospital - ty MORTGAGE CLERK-: [facility] [address] [place] [address], [address] [address] , Ph. 2022-03-26 2022-03-26 Outpatient [facility] [id number] [place] 00:00:00 00:00:00 1228 [facility] 2022-02-24 2022-02-24 Outpatient [facility] [id number] [place] 00:00:00 00:00:00 1128 [facility] 2022-02-24 2022-02-24 Kaitlin [facility] [place] [id number] [place] 00:00:00 00:00:00 Julianne Block Co mmuni SLICING MACHINE OPERATOR-MORTGAGE CLERK-B Hospital - ty C: 668 [facility], CL[address], [place] [address] , Ph. 2022-02-23 2022-02-23 Outpatient [facility] [id number] [place] 00:00:00 00:00:00 1127 [facility] 2022-02-062022-02-06 Outpatient [facility] [id number] [place] 00:00:00 00:00:00 1110 [facility] 2022-01-23 2022-01-23 Outpatient [facility] [id number] [place] 00:00:00 00:00:00 1027 [facility] 2022-01-23 2022-01-23 [facility] [place] 00:00:00 00:00:00 Julianne Lopez [facility] MSN, SLICING MACHINE OPERATOR, Hospital - ty MORTGAGE CLERK-C: [address] [place] [facility], Clinic [address], [facility] [address], [place], [place] MSN, MORTGAGE CLERK-C [address] , Ph. 2022-01-15 2022-01-15 [facility] [id number] [place] 00:00:00 00:00:00 1019 [facility] i ty [facility] Clin[facility] 2022-01-03 2022-01-03 Telephone George, 1.2.840.1 [id number] Methodi 00:00:00 00:00:00 Emily 46345.1.1 769 [facility] 3.430.2.7 Hosp bandar .3.739772 l .8 2022-01-02 2022-01-02 Outpatient [facility] [id number] [place] 00:00:00 00:00:00 1006 [facility] i [facility] 2021-12-30 2021-12-31 Inpatient CHICO Arauz, [facility] MEDI.01 [id number] [facility] 12:08:00 09:39:00 Elvia Pereyra [facility] 2021-12-18 2021-12-18 Outpatient [facility] [id number] [place] 00:00:00 00:00:00 0921 [facility] i ty [facility] 2021-12-18 2021-12-18 [facility] [place] [id number] [place] 00:00:00 00:00:00 John, [facility] MSN, SLICING MACHINE OPERATOR, Hospital - ty MORTGAGE CLERK-C: [address] [place] [facility], Clinic [address], [facility] [address], [place] MSN, MORTGAGE CLERK-C [address] , Ph. 2021-12-12 2021-12-12 Outpatient [facility] [id number] [place] 00:00:00 00:00:00 0915 [facility] 2021-12-12 2021-12-12 Outpatient John [facility] [id number] 00:00:00 00:00:00 Willy [id number] 2021-12-12 2021-12-12 [facility] [place] 15 [place] 00:00:00 00:00:00 John, [facility] uni MSN, SLICING MACHINE OPERATOR, Hospital - ty MORTGAGE CLERK-C: [address] [place] [facility], Clinic [address], [facility] [address], [place] MSN, MORTGAGE CLERK-C [address] , Ph. 2021-12-10 2021-12-10 Outpatient [facility] [id number] [place] 00:00:00 00:00:00 0913 [facility] 2021-11-11 2021-11-11 Outpatient [facility] [id number] [place] 00:00:00 00:00:00 0815 [facility] i [facility] Clinics 2021-11-08 2021-11-08 Outpatient [facility] 1044 [place] 00:00:00 00:00:00 0812 [facility] ty [facility] 2021-11-08 2021-11-08 Outpatient Emily Longoria [facility] [id number] 00:00:00 00:00:00 [id number] 2021-11-08 2021-11-08 Emily [facility] [place] 12 [place] 00:00:00 00:00:00 Julianne Longoria APRN, MSN, Hospital - ty MORTGAGE CLERK-BC: [facility], [address], [place] [address] , Ph. 2021-11-06 2021-11-07 Outpt Diag nullFlavo [facility] [id number] Memoria 17:27:00 04:59:00 Services r Outpatient 03 l Imaging Mart Garcia 2021-10-22 2021-10-22 Outpatient [facility] [id number] [place] 10:01:00 10:01:00 0726 Commun i ty Hospita [facility] 2021-10-21 2021-10-21 Outpatient [facility] [id number] [place] 10:15:00 10:15:00 Andi MATTHEW Emir chapincito 2021-10-21 2021-10-21 Outpatient [facility] [id number] [place] 06:03:00 06:03:00 0725 Commun i ty [facility]osp[facility] 2021-10-21 2021-10-21 Outpatient Umair [facility] [id number] 00:00:00 00:00:00 Kaitlin [id number] 2021-10-21 2021-10-21 Kaitlin [facility] [place] [id number] [place] 00:00:00 00:00:00 Julianne Blokc Co mmuni SLICING MACHINE OPERATOR-MORTGAGE CLERK-B Hospital - ty C: [address] [place] [address], CL[address], [place] [address] , Ph. 2021-10-14 2021-10-14 Bedded nullFlavo [facility] [id number] [place] 12:36:00 19:00:00 Outpatient [facility] 2021-10-14 2021-10-14 Outpatient SHIVA, [facility] [id number] [facility] 07:36:00 14:00:00 LUCIEN 2021-10-14 2021-10-14 Outpatient SHIVA, [facility] [id number] [place] 09:00:00 09:00:00 [facility] 2021-10-11 2021-10-11 Outpatient KOKI [facility] 987 [place] 10:21:00 10:21:00 SSA 0715 da [facility] 2021-10-08 2021-10-08 Outpatient [facility] [id number] [place] 03:10:00 03:10:00 0712 [facility] i ty [facility] 2021-09-23 2021-09-23 Orders Provider, 1.2.840.1 [id number] [id number] Methodi 00:00:00 00:00:00 Only [place] [address]86.1.[address] System 3.430.2.7 Hospit a .3.126319 l .8 2021-09-23 2021-09-23 Telephone Lord, 1.2.840.1 [id number] 2100 [id number] Methodi 00:00:00 00:00:[address] 3.430.2.7 Hospit a .3.860481 l .8 2021-09-20 2021-09-20 Outpatient [facility] [id number] [place] 12:16:00 12:16:00 0624 [facility] 2021-09-20 2021-09-20 [facility] [place] 00:00:00 00:00:00 John [facility] reanna MSN, SLICING MACHINE OPERATOR, Hospital - ty MORTGAGE CLERK-C: [address] [place] [facility] s [address], [facility] [address], [place] MSN, MORTGAGE CLERK-C [address] , Ph. 2021-09-20 2021-09-20 Outpatient [facility] [id number] 00:00:00 00:00:00 Willy [id number] 2021-09-11 2021-09-11 Orders George, 1.2.840.1 [id number] 2100 [id number] Methodi 00:00:00 00:00:00 Only Emily 68144.1.[address] [facility] 3.430.2.7 Hosp bandar .3.710569 l .8 2021-09-09 2021-09-09 Telephone George, 1.2.840.1 [id number] Methodi 00:00:00 00:00:[address] [facility] 3.430.2.7 Hosp bandar .3.563338 l .8 2021-09-03 2021-09-03 Outpatient [facility] [id number] [place] 01:31:00 01:31:00 0607 [facility] i ty [facility]osp[facility] Clinics 2021-08-21 2021-08-21 Office George, 1.2.840.1 [id number] 2100 [id number] Methodi 14:45:00 15:41:16 Visit Emily [address]90.1.[address] [facility] 3.430.2.7 Hosp bandar .3.208031 l .8 2021-08-21 2021-08-21 Travel 1.2.840.1 1.2.501.606 1449 128549 Methodi 00:00:00 00:00:[address] 3.430.2.7 0.2.7.3.698 Ho spita .3.248922 084.8 l .8 2021-07-31 2021-07-31 Outpatient [facility] [id number] [place] 04:50:00 04:50:00 0504 [facility] 2021-07-31 2021-07-31 [facility] [place] 00:00[place]00 00:00:00 John[facility] MSN, SLICING MACHINE OPERATOR, Hospital - ty MORTGAGE CLERK-C: [address] [place] [facility] [address] Clinic [facility] [address], [facility] [address], [place], [place] MSN, MORTGAGE CLERK-C [address] , Ph. 2021-07-31 2021-07-31 [facility] [id number] [facility]:00:00 00:00:00 Willy [id number] 2021-07-26 2021-07-26 [facility] [id number] [place] 05:01:00 05:01:00 0429 [facility] 2021-07-26 2021-07-26 [facility] [place] 00:00:00 00:00:00 [facility] uni MSN, SLICING MACHINE OPERATOR, Hospital - ty MORTGAGE CLERK-C: [address] [place] [facility] [address] Clinic s [address], [address] [address], [place] MSN, MORTGAGE CLERK-C [address] , Ph. 2021-07-26 2021-07-26 [facility] [id number] 00:00:00 00:00:00 Willy [id number] 2021-07-23 2021-07-23 Outpatient [facility] [id number] [place] 03:28:00 03:28:00 0426 [facility] i ty [facility] Clinics 2021-07-23 2021-07-23 Kaitlin [facility] [place] 00:00:00 00:00:00 [facility] mmuni SLICING MACHINE OPERATOR-MORTGAGE CLERK-B Hospital - ty C: [address] [facility], [address], [place] [address] , Ph. 2021-07-23 2021-07-23 Outpatient Chretien, [facility] [id number] 00:00:00 00:00:00 Kaitlin [id number] 2021-07-13 2021-07-13 Outpatient [facility] [id number] [place] 01:29:00 01:29:00 0416 [facility] 2021-06-24 2021-06-24 Outpatient [facility] [id number] [place] 06:06:00 06:06:00 0328 [facility] i ty Hospita Clinics 2021-06-24 2021-06-24 R[place]a [facility] [place] [place] 00:00:00 00:00:00 [facility] SLICING MACHINE OPERATOR-MANAGER PLANNING-C: Hospital - [address] [address], [place] [address] , Ph. 2021-06-24 2021-06-24 Outpatient [facility], [facility] [id number] 00:00:00 00:00:00 [place] [id number] 2021-05-30 2021-05-30 Outpatient [facility] [id number] [place] 04:28:00 04:28:00 0303 [facility] 2021-05-30 2021-05-30 [facility] [place] 00:[place]00 00:00:00 [facility] Hospital - ty [address] [place] [address] Suite [facility], [place] [address] , Ph. 2021-05-30 2021-05-30 Outpatient Finn, [facility] [id number] 00:00:00 00:00:00 [place] [id number] 2021-04-26 2021-04-26 Outpatient [facility] [id number] [place] 04:02:00 04:02:00 0128 [facility] 2021-04-10 2021-04-10 Outpatient [facility] [id number] [place] 10:19:00 10:19:00 0112 [facility] 2021-04-09 2021-04-09 Outpatient [facility] [id number] [place] 02:44:00 02:44:00 0111 [facility] 2021-04-09 2021-04-09 [place] [facility] [place] 00:00:00 00:00:00 [facility] Comm uni SLICING MACHINE OPERATOR-MANAGER PLANNING-C: [address] [address], [place] [address] , Ph. 2021-04-09 2021-04-09 [facility] [id number] 00:00:00 00:00:00 [place] [id number] 2021-04-05 2021-04-06 Outpatient [facility] [id number] [place] 16:06:00 05:59:00 r Disease 72 l [facility] 2021-04-05 2021-04-05 Outpatient SHIVA, [facility] [id number] [facility] 10:06:00 23:59:00 LUCIEN 2021-03-14 2021-03-14 Outpatient FRANCISCO[facility] [id number] [place] 11:37:00 11:37:00 1216 [facility] 2021-03-14 2021-03-14 [facility] [place] [id number] [place] 00:00:00 00:00:00 [facility] uni SLICING MACHINE OPERATOR-MANAGER PLANNING-C: [address], [place] [address] , Ph. 2021-03-14 2021-03-14 Outpatient Finn, [facility] [id number] 00:00:00 00:00:00 [place] [id number] 2021-03-04 2021-03-04 Outpatient [facility] [id number] [place] 02:40:00 02:40:00 1206 [facility] 2021-03-04 2021-03-04 [place] [facility] [place] [id number] [place] 00:00:00 00:00:00 [facility] SLICING MACHINE OPERATOR-MANAGER PLANNING-C: [address] [address], [place] [address] , Ph. 2021-03-04 2021-03-04 Outpatient Finn, [facility] [id number] 00:00:00 00:00:00 [place] [id number] 2021-03-04 2021-03-04 Outpatient Finn, [facility] [id number] 00:00:00 00:00:00 [place] [id number] 2021-02-25 2021-02-25 [place] [facility] [place] [id number] [place] 00:00:00 00:00:00 [facility] SLICING MACHINE OPERATOR-MANAGER PLANNING-C: [address], [place] [address] , Ph. 2021-02-25 2021-02-25 Outpatient Finn, [facility] [id number] 00:00:00 00:00:00 [place] [id number] 2021-01-14 2021-01-14 Outpatient [facility] [id number] [place] 05:43:00 05:43:00 1018 [facility] i ty Hospita Clinics 2021-01-14 2021-01-14 Outpatient Finn, [facility] [id number] 00:00:00 00:00:00 [place] [id number] 2021-01-14 2021-01-14 Outpatient Finn, [facility] [id number] 00:00:00 00:00:00 [place] [id number] 2021-01-14 2021-01-14 [facility] [place] 18 [place] 00:00:00 00:00:00 [facility] SLICING MACHINE OPERATOR-MANAGER PLANNING-C: [address] [address], [place] [address] , Ph. 2020-10-16 2020-10-16 Outpatient [facility] [id number] [place] 02:24:00 02:24:00 0720 [facility] 2020-10-16 2020-10-16 Outpatient [facility], [facility] [id number] 00:00:00 00:00:00 [place] [id number] 2020-10-16 2020-10-16 [facility] [place] 20 [place] 00:00:00 00:00:00 [facility] SLICING MACHINE OPERATOR-MANAGER PLANNING-C: Hospital [id number], [place] [address] , Ph. 2020-09-28 2020-09-28 Outpatient [facility] [id number] [place] 12:14:00 12:14:00 0702 [facility] Clinics 2020-09-28 2020-09-28 Outpatient Finn, [facility] [id number] 00:00:00 00:00:00 [place] [id number] 2020-09-28 2020-09-28 [facility] [place] 00:00:00 00:00:00 [facility] SLICING MACHINE OPERATOR-MANAGER PLANNING-C: Hospital - ty [address] [place] [address], [place] [address] , Ph. 2020-09-28 2020-09-28 Outpatient Finn, [facility] [id number] 00:00:00 00:00:00 [place] [id number] [facility] 2020-08-30 2020-08-30 Outpatient [facility] [id number] [place] 05:28:00 05:28:00 0603 [facility] 2020-08-26 2020-08-26 Outpatient [facility] [id number] [place] 01:01:00 01:01:00 0530 Commun i [facility]ospita [facility] Clinics 2020-08-20 2020-08-20 Outpatient [facility] [id number] [place] 05:07:00 05:07:00 0524 Commun i ty Hospita [facility] Clinics 2020-08-20 2020-08-20 [facility] [place] 24 [place] 00:00:00 00:00:00 [facility] SLICING MACHINE OPERATOR-MANAGER PLANNING-C: Hospital - ty [address] [place], [place] [address], [place] [address] , Ph. 2020-08-20 2020-08-20 Outpatient Finn, [facility] [id number] 00:00:00 00:00:00 [place] [id number] 2020-08-16 2020-08-16 Outpatient [facility], [facility] [id number] [place] 00:00:00 00:00:00 SHIELA Connolly[address] 2020-08-13 2020-08-13 Outpatient [facility] [id number] [place] 04:15:00 04:15:00 0517 [facility] i ty Hospita [facility] Clinics 2020-08-13 2020-08-13 [place] [facility] [place] [id number] [place] 00:00:00 00:00:00 [facility] Hospital - [address], [place] [address] , Ph. 2020-08-13 2020-08-13 Outpatient [facility] [id number] 00:00:00 00:00:00 [place] [id number] 2020-07-26 2020-07-26 Outpatient FRANCISCOS [facility] [id number] [place] 05:04:00 05:04:00 0429 [facility] 2020-07-26 2020-07-26 [facility] [place] 00:00:00 00:00:00 [facility] Hospital - ty [address] [place] [address] [address], [place] [address] , Ph. 2020-07-26 2020-07-26 Outpatient [facility] [id number] 00:00:00 00:00:00 [place] [id number] 2020-07-24 2020-07-24 Outpatient SUSTACHE, [facility] [id number] [place] 00:00:00 00:00:00 SHIELA [address] 2020-07-23 2020-07-23 [facility] [id number] [place] 21:54:40 23:17:00 r Mart 71 l Price Jada hinds 2020-07-23 2020-07-23 Emergency E ANNABELLE, FB [facility] [id number] FB 16:54:00 18:17:00 NICHELLE 2020-03-09 2020-03-10 Outpatient [facility] [id number] [place] 17:08:00 05:59:00 r Disease 70 l [facility] 2020-03-09 2020-03-09 Outpatient SHIVA, [facility] [id number] [facility] 11:08:00 23:59:00 LUCIEN 2020-01-11 2020-01-12 Emergency nullFlavo [facility] [id number] [place] 22:36:56 02:26:00 [facility] [place] [facility] 2019-10-07 2019-10-08 Between nullFlavo [facility] [id number] [place] 20:30:17 20:30:17 Visit r Primary 68 l [facility] 2019-10-07 2019-10-07 Ambulatory nullFlavo [facility] [id number] [place] 20:30:00 20:30:00 Pre-Reg r Primary 27 l [facility] 2019-10-07 2019-10-07 Outpatient [facility] [id number] [place] 15:30:00 15:30:00 28 [facility] 2019-01-03 2019-01-04 Between nullFlavo [facility] [id number] [place] 22:03:00 22:03:00 Visit r Primary 67 l [facility] 2018-12-31 2019-01-01 Outpatient nullFlavo [facility] [id number] [place] 16:00:00 04:59:59 r Primary 26 l [facility] 2018 2018-09-28 Between nullFlavo [facility] [id number] [place] 14:45:47 14:45:47 Visit r Primary 65 l [facility] 2018-09-24 2018-09-25 Between nullFlavo [facility] [id number] [place] 17:35:02 17:35:02 Visit r Primary 64 l [facility] 2018-09-22 2018-09-23 Between nullFlavo [facility] [id number] [place] 21:49:52 21:49:52 Visit r Primary 63 l [facility] 2018-09-22 2018-09-23 Outpatient nullFlavo [facility] [id number] [place] 18:30:00 04:59:59 r Primary 25 l [facility] 2018-09-06 2018-09-07 Between nullFlavo [facility] [id number] [place] 13:31:31 13:31:31 Visit r Primary 61 l [facility] 2018-09-03 2018-09-04 Outpatient nullFlavo [facility] [id number] [place] 14:00:00 04:59:59 r Primary 24 l [facility] 2018-07-28 2018-07-29 Outpatient nullFlavo [place] [id number] [place] 06:39:00 04:59:00 r Disease 60 l [facility] 2018-07-28 2018-07-28 Outpatient [facility] [id number] [facility] 01:39:00 01:39:00 2018-06-16 2018-06-17 Between nullFlavo [facility] [id number] [place] 20:32:41 20:32:41 Visit r Primary 59 l [facility] 2018-06-14 2018-06-15 Outpatient nullFlavo [facility] [id number] [place] 19:10:00 04:59:59 r Primary 23 l [facility] 2018-01-19 2018-01-21 Outside nullFlavo [facility] [id number] [place] 16:25:00 04:59:59 Medical r Primary 38 l Records [facility] 2018-01-08 2018-01-10 Phone nullFlavo [facility] [id number] [place] 13:55:00 04:59:59 Message r Primary 37 l [facility] 2018-01-08 2018-01-10 Phone nullFlavo [facility] [id number] [place] 13:54:00 04:59:59 Message r Primary 36 l [facility] 2018-01-05 2018-01-07 Phone nullFlavo [facility] [id number] [place] 13:32:00 04:59:59 Message r Primary 35 l [facility] 2018-01-05 2018-01-06 Outpatient nullFlavo [facility] [id number] [place] 19:50:00 04:59:59 r Primary 22 l [facility] 2018-01-05 2018-01-06 Outpt Diag nullFlavo [facility] [id number] [place] 21:42:00 04:59:00 Services r Outpatient 02 l [facility] 2017-12-30 2018-01-01 Phone nullFlavo [facility] [id number] [place] 20:39:00 04:59:59 Message r Primary 34 l [facility] 2017-12-30 2018-01-01 Phone nullFlavo [facility] [id number] [place] 15:11:00 04:59:59 Message r Primary 33 l [facility] 2017-11-06 2017-11-08 Phone nullFlavo [facility] [id number] [place] 21:20:00 04:59:59 Message r Primary 32 l [facility] 2017-10-06 2017-10-07 Outpatient nullFlavo [facility] [id number] [place] 19:30:00 04:59:59 r Primary 21 l [facility] 2017-07-28 2017-07-30 Phone nullFlavo [facility] [id number] [place] 20:09:00 04:59:59 Message r Primary 31 l [facility] 2017-07-27 2017-07-29 Phone nullFlavo [facility] [id number] [place] 13:56:00 04:59:59 Message r Primary 30 l [facility] 2017-07-02 2017-07-03 Outpatient nullFlavo [facility] [id number] [place] 19:50:00 04:59:59 r Primary 20 l [facility] 2017-06-29 2017-06-29 Ambulatory nullFlavo [facility] [id number] [place] 19:50:00 19:50:00 Pre-Reg r Primary 19 l [facility] 2017-06-26 2017-06-28 Phone nullFlavo [facility] [id number] [place] 19:14:00 04:59:59 Message r Primary 27 l [facility] 2017-06-15 2017-06-17 Phone nullFlavo [facility] [id number] [place] 19:19:00 04:59:59 Message r Primary 26 l [facility] 2017-06-09 2017-06-10 Outpatient nullFlavo [facility] [id number] [place] 18:50:00 04:59:59 r Primary 18 l [facility] 2017-06-05 2017-06-07 Phone nullFlavo [facility] [id number] [place] 17:21:00 05:59:59 Message r Primary 25 l [facility] 2017-06-06 2017-06-06 Emergency nullFlavo [facility] [id number] [place] 02:21:00 02:28:00 r [place] 17 l [facility] 2017-03-31 2017-04-01 Outpatient nullFlavo [facility] [id number] [place] 19:50:00 05:59:59 r Primary 17 l [facility] 2017-03-12 2017-03-14 Phone nullFlavo [facility] [id number] [place] 20:29:00 05:59:59 Message r Primary 24 l [facility] 2017-03-09 2017-03-11 Phone nullFlavo [facility] [id number] [place] 14:24:00 05:59:59 Message r Primary 23 l [facility] 2017-02-23 2017-02-24 Outpatient nullFlavo [facility] [id number] [place] 19:50:00 05:59:59 r Primary 16 l [facility] 2016-12-30 2016-12-30 Outpatient MHIE MHIE [id number] [place] 10:00:00 10:00:00 15 jamshid C[place] 2016-11-12 2016-11-12 Outpatient MHIE [facility] [id number] [place] 09:40:00 09:40:00 14 jamshid Cev[place]os 2016-08-29 2016-08-29 Outpatient MHIE MH[facility] [id number] [place] 10:00:00 10:00:00 13 jamshid Cev[place]os 2016-07-30 2016-07-30 Outpatient MHIE MH[facility] [id number] [place] 10:20:00 10:20:00 12 jamshid Cevallos 2016-06-03 2016-06-03 Outpatient MHIE MHIE [id number] [place] 11:00:00 11:00:00 11 jamshid Cevallos 2016-05-15 2016-05-15 Outpatient MHIE MHIE [id number] [place] 14:50:00 14:50:00 10 jamshid Cevallos 2016-04-17 2016-04-17 Outpatient MHIE MHIE [id number] [place] 11:20:00 11:20:00 09 jamshid Cevallos 2016-03-25 2016-03-26 Outpt Diag nullFlavo [facility] [id number] [place] 15:58:00 05:59:00 Services r Outpatient 01 jamshid Huff 2016-03-12 2016-03-13 Outpatient nullFlavo [facility] [id number] [place] 19:31:00 05:59:00 r Mart 09 jamshid Cevallos 2016-02-13 2016-02-13 Outpatient MHIE MHIE [id number] [place] 10:00:00 10:00:00 08 jamshid Cevallos 2016-01-21 2016-01-21 Outpatient MHIE MHIE [id number] [place] 09:20:00 09:20:00 07 jamshid Cevallos 2015-11-19 2015-11-19 Outpatient MHIE MHIE [id number] [place] 13:50:00 13:50:00 06 jamshid Cevallos 2015-10-18 2015-10-18 Outpatient MHIE MHIE [id number] [place] 09:00:00 09:00:00 05 jamshid Cevallos 2015-09-16 2015-09-17 EC [facility] [id number] [place] 21:47:00 00:06:00 Emergency r Mart 05 [facility] 2015-09-11 2015-09-11 Outpatient MHIE MHIE [id number] [place] 11:40:00 11:40:00 04 jamshid Cevallos 2015-08-23 2015-08-23 Outpatient MHIE MH[facility] [id number] [place] 10:00:00 10:00:00 03 jamshid Cevallos 2015-07-10 2015-07-10 Outpatient MHIE MH[facility] [id number] [place] 11:20:00 11:20:00 02 jamshid Cevallos 2015-05-17 2015-05-17 Outpatient MHIE MHIE [id number] [place] 11:40:00 11:40:00 01 jamshid Cevallos 2015-04-30 2015-04-30 Bedded [facility] [id number] [place] 17:15:00 20:00:00 Outpatient r Mart 03 l [facility] 2015-03-14 2015-03-15 Outpatient [facility] [id number] [id number] [facility] 20:09:00 05:59:00 r Mart 02 [facility] 2015-02-23 2015-02-24 Outpt Diag nullFlavo [facility] [id number] [place] 12:58:00 05:59:00 Services r Outpatient 00 l [facility] 2015-01-30 2015-01-30 Outpatient MHIE MHIE [id number] [place] 10:40:00 10:40:00 00 jamshid Cevallos 2013-11-30 2013-11-30 EC [facility] [id number] [facility] 16:56:00 22:05:00 Emergency r [place] 00 l [facility] nn Results Test Description Test Time Test Comments Results Result Comments Source rapid flu (A+B) 2023-01-07 14:24:00 Test Item Value Reference Range Interpretation Comme nts FLU A (test code = FLU A) negative FLU B (test code = FLU B) negative [facility] Clinicsrapid strep group A, [id number] 14:24:00 Test Item Value Reference Range Interpretation Comments Strep (test code = Strep) negative [facility] Ag [Presence] in Respiratory system specimen by Rapid [id number] 14:24:00 Test Item Value Reference Range Interpretation Comments SARS CoV 2 (test code = SARS CoV 2) negative [facility] (dipstick) panel - Urine 2022-11-10 15:55:00 Test Item Value Reference Range Interpretation Comments Leukocytes (test code = Small Leukocytes) Nitrite (test code = negative Nitrite) Urobilinogen (test code = .2 Urobilinogen) Protein (test code = Negative Protein) pH (test code = pH) 7.0 Blood (test code = Blood) Hemolyzed: Trace Specific [place] (test code 1.015 = Specific [place]) Ketone (test code = Ketone) Negative Bilirubin (test code = Negative Bilirubin) Glucose (test code = Negative Glucose) Appearance (test code = Turbid Appearance) Color (test code = Color) Pale Yellow [facility] (dipstick) panel - Urine 2022-11-10 15:55:00 Test Item Value Reference Range Interpretation Comments Leukocytes (test code = Small Leukocytes) Nitrite (test code = negative Nitrite) Urobilinogen (test code = .2 Urobilinogen) Protein (test code = Negative Protein) pH (test code = pH) 7.0 Blood (test code = Blood) Hemolyzed: Trace Specific [place] (test code 1.015 = Specific [place]) Ketone (test code = Ketone) Negative Bilirubin (test code = Negative Bilirubin) Glucose (test code = Negative Glucose) Appearance (test code = Turbid Appearance) Color (test code = Color) Pale Yellow [facility] ClinicsHelicobacter pylori IgA Ab [Units/volume] in Serum by [id number] 00:00:00 Test Item Value Reference Range Interpretation Comments Helicobacter pylori IgA Ab <9.0 0.0-8.9 [Units/volume] in Serum (test code = 7901-2) [facility] [Units/volume] in Serum by [id number] 00:00:00 Test Item Value Reference Range Interpretation Comments Helicobacter pylori IgA Ab <9.0 0.0-8.9 [Units/volume] in Serum (test code = 7901-2) [facility] ClinicsHelicobacter pylori IgM Ab [Units/volume] in [id number] 00:00:00 Test Item Value Reference Range Interpretation Comments Helicobacter pylori IgM Ab <9.0 0.0-8.9 [Units/volume] in Serum (test code = 7903-8) [facility] [Units/volume] in [id number] 00:00:00 Test Item Value Reference Range Interpretation Comments Helicobacter pylori IgM Ab <9.0 0.0-8.9 [Units/volume] in Serum (test code = 7903-8) [facility] Clinicswritten [id number] 00:00:00 Test Item Value Reference Range Interpretation Comments written authorization (test code = comment written authorization) [facility] [id number] 00:00:00 Test Item Value Reference Range Interpretation Comments written authorization (test code = comment written authorization) [facility] IgG Ab [Units/volume] in Serum by [id number] 00:00:00 Test Item Value Reference Range Interpretation Comments Helicobacter pylori IgG Ab 0.29 index value 0.00-0.79 [Units/volume] in Serum by Immunoassay (test code = 5176-3) [facility] ClinicsHelicobacter pylori IgG Ab [Units/volume] in Serum by [id number] 00:00:00 Test Item Value Reference Range Interpretation Comments Helicobacter pylori IgG Ab 0.29 index value 0.00-0.79 [Units/volume] in Serum by Immunoassay (test code = 5176-3) [facility] macro (dipstick) panel - Urine 2022-10-06 15:12:00 Test Item Value Reference Range Interpretation Comments Leukocytes (test code = Negative Leukocytes) Nitrite (test code = negative Nitrite) Urobilinogen (test code = .2 Urobilinogen) Protein (test code = Negative Protein) pH (test code = pH) 5.5 Blood (test code = Blood) Non-Hemolyzed: Trace Specific [place] (test 1.020 code = Specific [place]) Ketone (test code = Trace Ketone) Bilirubin (test code = Negative Bilirubin) Glucose (test code = Negative Glucose) Appearance (test code = Clear Appearance) Color (test code = Color) Yellow [facility] macro (dipstick) panel - Urine 2022-10-06 15:12:00 Test Item Value Reference Range Interpretation Comments Leukocytes (test code = Negative Leukocytes) Nitrite (test code = negative Nitrite) Urobilinogen (test code = .2 Urobilinogen) Protein (test code = Negative Protein) pH (test code = pH) 5.5 Blood (test code = Blood) Non-Hemolyzed: Trace Specific [place] (test 1.020 code = Specific [place]) Ketone (test code = Trace Ketone) Bilirubin (test code = Negative Bilirubin) Glucose (test code = Negative Glucose) Appearance (test code = Clear Appearance) Color (test code = Color) Yellow [facility] Center[facility] macro (dipstick) panel - Urine 2022-10-06 15:12:00 Test Item Value Reference Range Interpretation Comments Leukocytes (test code = Negative Leukocytes) Nitrite (test code = negative Nitrite) Urobilinogen (test code = .2 Urobilinogen) Protein (test code = Negative Protein) pH (test code = pH) 5.5 Blood (test code = Blood) Non-Hemolyzed: Trace Specific [place] (test 1.020 code = Specific [place]) Ketone (test code = Trace Ketone) Bilirubin (test code = Negative Bilirubin) Glucose (test code = Negative Glucose) Appearance (test code = Clear Appearance) Color (test code = Color) Yellow [facility] (dipstick) panel - Urine 2022-09-11 16:33:00 Test Item Value Reference Range Interpretation Comments Leukocytes (test code = Negative Leukocytes) Nitrite (test code = negative Nitrite) Urobilinogen (test code = .2 Urobilinogen) Protein (test code = Negative Protein) pH (test code = pH) 5.5 Blood (test code = Blood) Non-Hemolyzed: Trace Specific [place] (test 1.015 code = Specific [place]) Ketone (test code = Negative Ketone) Bilirubin (test code = Negative Bilirubin) Glucose (test code = Negative Glucose) Appearance (test code = Clear Appearance) Color (test code = Color) Pale Yellow [facility] (dipstick) panel - Urine 2022-09-11 16:33:00 Test Item Value Reference Range Interpretation Comments Leukocytes (test code = Negative Leukocytes) Nitrite (test code = negative Nitrite) Urobilinogen (test code = .2 Urobilinogen) Protein (test code = Negative Protein) pH (test code = pH) 5.5 Blood (test code = Blood) Non-Hemolyzed: Trace Specific [place] (test 1.015 code = Specific [place]) Ketone (test code = Negative Ketone) Bilirubin (test code = Negative Bilirubin) Glucose (test code = Negative Glucose) Appearance (test code = Clear Appearance) Color (test code = Color) Pale Yellow [facility] CenterRADRPT2023-06-[facility] 18:01:26 Test Item Value Reference Range Interpretation Comments RADRPT (test code EXAM:Chest x-ray, 1 = RADRPT) view(s).CLINICAL HX: - upper back pain.Age: 66 years.Gender: Female.TECHNIQUE:As above.Facility: [facility]. COMPARISON: Chest x-ray: 01/05/2018.FINDINGS:Support apparatus: None.Cardiac silhouette: Unremarkable.Mediastinum:-- Rena: Unremarkable.-- Other: None.Lungs:-- Consolidation: Negative.-- Pleural effusion: Negative.-- Pneumothorax: Negative.-- Other: Negative.Bones: Unremarkable.Other: None.IMPRESSION:1. No acute cardiopulmonary process. [facility] [id number] 17:36:00 Test Item Value Reference Range Interpretation Comments HS Troponin I 1 Hr (test code = HS no gt Troponin I 1 Hr) [facility] Te[id number] 17:36:00 Test Item Value Reference Range Interpretation Comments HS Troponin I 0 to 1 Hour Delta (test no gt code = HS Troponin I 0 to 1 Hour Delta) [facility] TexasLhgtdrnVKWUBXKOH2171-57-14 16:34:00 Test Item Value Reference Range Interpretation Comments Glucose Lvl (test code = Glucose Lvl) 113 70-99 [place] 793063-06-08 16:34:00 Test Item Value Reference Range Interpretation Comments BUN (test code = BUN) 7 7-22 [place] 793063-06-08 16:34:00 Test Item Value Reference Range Interpretation Comments Creatinine Lvl (test code = Creatinine 0.97 0.50-1.40 Lvl) [facility] TexasUcircfjYSTROKSFA0520-38-37 16:34:00 Test Item Value Reference Range Interpretation Comments Sodium Lvl (test code = Sodium Lvl) 140 135-145 [place] 793063-06-08 16:34:00 Test Item Value Reference Range Interpretation Comments Potassium Lvl (test code = Potassium 3.4 3.5-5.1 Lvl) [facility] TexasUwdozipHWFJEKLND0282-24-83 16:34:00 Test Item Value Reference Range Interpretation Comments Chloride Lvl (test code = Chloride Lvl) 107 95-109 [place] 793063-06-08 16:34:00 Test Item Value Reference Range Interpretation Comments CO2 (test code = CO2) 27 24-32 [facility] TexasVnsdsgpHYOSZWZVO0180-16-32 16:34:00 Test Item Value Reference Range Interpretation Comments Calcium Lvl (test code = Calcium Lvl) 9.4 8.5-10.5 [facility] TexasYanjkwiUTTNNDHAM7410-19-28 16:34:00 Test Item Value Reference Range Interpretation Comments Total Protein (test code = Total 7.5 6.4-8.4 Protein) [facility] TexasJxjqlsoJFDUPUNTB6699-62-55 16:34:00 Test Item Value Reference Range Interpretation Comments Albumin Lvl (test code = Albumin Lvl) 3.9 3.5-5.0 [facility] TexasLtkavqmJKJTYNYAM6822-06-65 16:34:00 Test Item Value Reference Range Interpretation Comments ALT (test code = ALT) 37 See_Comment [Auto mated message] The system which ge nerated this result transmit fabi reference range : <=65. The reference range was not used to interpr et this result as bhavya l/abnormal. [place] 793063-06-08 16:34:00 Test Item Value Reference Range Interpretation Comments AST (test code = AST) 26 See_Comment [Auto mated message] The system which ge nerated this result transmit fabi reference range : <=37. The reference range was not used to interpr et this result as bhavya l/abnormal. [facility] TexasNekrycuJNOARIIFZ4568-13-42 16:34:00 Test Item Value Reference Range Interpretation Comments Alk Phos (test code = Alk Phos) 75 39-136 [facility] TexasMchyipdDBUTNIJES7951-39-60 16:34:00 Test Item Value Reference Range Interpretation Comments Bili Total (test code = Bili Total) 0.9 0.2-1.3 [facility] TexasLqlfflrDABMZMPFJ7904-43-58 16:34:00 Test Item Value Reference Range Interpretation Comments AGAP (test code = AGAP) 9.4 10.0-20.0 [facility] TexasYmaitwnEUIRZFQWW3238-79-03 16:34:00 Test Item Value Reference Range Interpretation Comments B/C Ratio (test code = B/C Ratio) 7 1 6-25 [facility] TexasRatmipsHAEZHQCFM3997-28-94 16:34:00 Test Item Value Reference Range Interpretation Comments Globulin (test code = Globulin) 3.6 2.7-4.2 [facility] TexasRnjckojZJBDPCOAG8954-36-57 16:34:00 Test Item Value Reference Range Interpretation Comments A/G Ratio (test code = A/G Ratio) 1.1 1 0.7-1.6 [facility] TexasBbqetjdLPMSFVZTW0296-45-25 16:34:00 Test Item Value Reference Range Interpretation Comments eGFR (test code = eGFR) 65 [facility] TexasFqwdcajYNJYJHSCQ0279-84-71 16:34:00 Test Item Value Reference Range Interpretation Comments HS Troponin I Baseline (test code = HS no gt Troponin I Baseline) [facility] TexasAspckxwCWGSPRKCZ5914-42-31 16:34:00 Test Item Value Reference Range Interpretation Comments Lipase Lvl (test code = Lipase Lvl) 39 13-77 [facility] HospitalRgczrbwILLZKFBKBP6682-77-14 16:34:00 Test Item Value Reference Range Interpretation Comments WBC (test code = WBC) 6.1 3.7-10.4 [facility] HospitalEkkszguZHHHMBMHZG1896-23-58 16:34:00 Test Item Value Reference Range Interpretation Comments RBC (test code = RBC) 5.40 4.20-5.40 [place] [address]-06-08 16:34:00 Test Item Value Reference Range Interpretation Comments Hgb (test code = Hgb) 16.3 12.0-16.0 [place] [address]-06-08 16:34:00 Test Item Value Reference Range Interpretation Comments Hct (test code = Hct) 48.8 36.0-48.0 [facility] HospitalEpfamqnDVHHXAFZXG8542-89-56 16:34:00 Test Item Value Reference Range Interpretation Comments MCV (test code = MCV) 90.4 80.0-98.0 [place] [address]-06-08 16:34:00 Test Item Value Reference Range Interpretation Comments MCH (test code = MCH) 30.2 pg 27.0-31.0 [facility] HospitalIqtbiraMLXLJMAKEZ2140-13-12 16:34:00 Test Item Value Reference Range Interpretation Comments MCHC (test code = MCHC) 33.4 32.0-36.0 [facility] HospitalUnelsdaTAOAKWSOYD8168-56-66 16:34:00 Test Item Value Reference Range Interpretation Comments RDW (test code = RDW) 14.1 11.5-14.5 [facility] HospitalSgsnoxbWWDVDKBWQA4014-54-47 16:34:00 Test Item Value Reference Range Interpretation Comments Platelet (test code = Platelet) 221 133-450 [facility] HospitalEslyirnZYFYGFWPZD0703-78-81 16:34:00 Test Item Value Reference Range Interpretation Comments MPV (test code = MPV) 9.3 7.4-10.4 [place] [address]-06-08 16:34:00 Test Item Value Reference Range Interpretation Comments Segs (test code = Segs) 61.6 45.0-75.0 [place] 735493-06-08 16:34:00 Test Item Value Reference Range Interpretation Comments Lymphocytes (test code = Lymphocytes) 29.1 20.0-40.0 [place] [address]-06-08 16:34:00 Test Item Value Reference Range Interpretation Comments Monocytes (test code = Monocytes) 7.4 2.0-12.0 [place] [address]-06-08 16:34:00 Test Item Value Reference Range Interpretation Comments Eosinophils (test code = 1.0 See_Comment [A utomated message] The Eosinophils) system which ge nerated this result tra nsmitted reference range : <=4.0. The reference r theron was not used to int erpret this result as normal/abnormal . [facility] HospitalUsdpjsiDEOLVSWOML8939-17-50 16:34:00 Test Item Value Reference Range Interpretation Comments Basophils (test code = 0.9 See_Comment [Aut omated message] The Basophils) system which ge nerated this result tra nsmitted reference range : <=1.0. The reference r theron was not used to int erpret this result as normal/abnormal . [facility] HospitalCuizuorJJZPEDWVDV3172-36-02 16:34:00 Test Item Value Reference Range Interpretation Comments Neutrophils # (test code = Neutrophils 3.8 1.5-8.1 #) [facility] HospitalCrblogjOHNKRAXFQS9678-11-37 16:34:00 Test Item Value Reference Range Interpretation Comments Lymphocytes # (test code = Lymphocytes 1.8 1.0-5.5 #) [facility] HospitalDadyymzAVOFHIZVHD0378-81-89 16:34:00 Test Item Value Reference Range Interpretation Comments Monocytes # (test code 0.5 See_Comment [Aut omated message] The = Monocytes #) system which generated this result tra nsmitted reference range : <=0.8. The reference r theron was not used to int erpret this result as normal/abnormal . [facility] HospitalIwvjpogINLLYATDQT1769-66-51 16:34:00 Test Item Value Reference Range Interpretation Comments Eosinophils # (test code 0.1 See_Comment [A utomated message] The = Eosinophils #) system whic h generated this result tra nsmitted reference range : <=0.5. The reference r theron was not used to int erpret this result as normal/abnormal . [facility] HospitalOczmzvbMHDSMQRXNH0036-44-44 16:34:00 Test Item Value Reference Range Interpretation Comments Basophils # (test code 0.1 See_Comment [Aut omated message] The = Basophils #) system which generated this result tra nsmitted reference range : <=0.2. The reference r theron was not used to int erpret this result as normal/abnormal . [facility] AND [id number] 16:34:00 Test Item Value Reference Range Interpretation Comments UA Color (test code = Light Yellow UA Color) *NA*(09/04/22 11:34 AM) [facility] AND [id number] 16:34:00 Test Item Value Reference Range Interpretation Comments UA Turbidity (test code = Clear (09/04/22 11:34 UA Turbidity) AM) [facility] AND [id number] 16:34:00 Test Item Value Reference Range Interpretation Comments UA Spec Grav (test code = UA Spec 1.004 1 Grav) [facility] AND [id number] 16:34:00 Test Item Value Reference Range Interpretation Comments UA pH (test code = UA pH) 6.0 1 5.0-8.0 [facility] AND [id number] 16:34:00 Test Item Value Reference Range Interpretation Comments UA Protein (test code Negative (09/04/22 11:34 = UA Protein) AM) [facility] AND [id number] 16:34:00 Test Item Value Reference Range Interpretation Comments UA Glucose (test code Negative *NA*(09/04/22 = UA Glucose) 11:34 AM) [facility] AND [id number] 16:34:00 Test Item Value Reference Range Interpretation Comments UA Ketones (test code Negative *NA*(09/04/22 = UA Ketones) 11:34 AM) [facility] AND [id number] 16:34:00 Test Item Value Reference Range Interpretation Comments UA Bili (test code = Negative *NA*(09/04/22 UA Bili) 11:34 AM) [facility] AND [id number] 16:34:00 Test Item Value Reference Range Interpretation Comments UA Blood (test code = Small *ABN*(09/04/22 UA Blood) 11:34 AM) [facility] AND [id number] 16:34:00 Test Item Value Reference Range Interpretation Comments UA Urobilinogen (test code = UA <=1.0 mg/dL 0.1-1.0 Urobilinogen) [facility] AND [id number] 16:34:00 Test Item Value Reference Range Interpretation Comments UA Nitrite (test code Negative (09/04/22 11:34 = UA Nitrite) AM) [facility] AND [id number] 16:34:00 Test Item Value Reference Range Interpretation Comments UA Leuk Est (test Negative (09/04/22 11:34 code = UA Leuk Est) AM) [facility] MartK[facility] AND [id number] 16:34:00 Test Item Value Reference Range Interpretation Comments UA Ascorbic Acid (test Negative 3*NA*(09/04/22 code = UA Ascorbic 11:34 AM) Acid) [facility] AND [id number] 16:34:00 Test Item Value Reference Range Interpretation Comments UA Sq Epi (test code = UA Sq Occasional /LPF Epi) [facility] AND [id number] 16:34:00 Test Item Value Reference Range Interpretation Comments UA WBC (test code = no gt See_Comment [Automa fabi message] The UA WBC) system which ge nerated this result transmit fabi reference range : <=5. The reference range was not used to interpr et this result as bhavya l/abnormal. [facility] AND [id number] 16:34:00 Test Item Value Reference Range Interpretation Comments UA RBC (test code = 1 See_Comment [Automa fabi message] The UA RBC) system which ge nerated this result transmit fabi reference range : <=2. The reference range was not used to interpr et this result as bhavya l/abnormal. [facility]rutK[facility] AND [id number] 16:34:00 Test Item Value Reference Range Interpretation Comments UA Bacteria (test code = UA Moderate /HPF Bacteria) [facility] AND [id number] 16:34:00 Test Item Value Reference Range Interpretation Comments UA Mucus (test code = UA Mucus) Few /LPF [facility] Ag [Presence] in Respiratory specimen by Rapid gdxqgdjpqqs1834-59-21 09:52:00 Test Item Value Reference Range Interpretation Comments SARS CoV 2 (test code = SARS CoV 2) negative [facility] ClinicsUrinalysis macro (dipstick) panel - Urine 2022-03-27 09:31:00 Test Item Value Reference Range Interpretation Comments Nitrite (test code = negative Nitrite) Urobilinogen (test code = .2 Urobilinogen) Protein (test code = Negative Protein) pH (test code = pH) 5.0 Blood (test code = Blood) Non-Hemolyzed: Moderate Specific [place] (test 1.015 code = Specific [place]) Ketone (test code = Negative Ketone) Bilirubin (test code = Negative Bilirubin) Glucose (test code = Negative Glucose) Appearance (test code = Clear Appearance) Color (test code = Color) Pale Yellow Leukocytes (test code = Negative Leukocytes) [facility] Clinicsrapid flu (A+B)2022-03-27 09:29:00 Test Item Value Reference Range Interpretation Comments FLU A (test code = FLU A) negative FLU B (test code = FLU B) negative [facility] ClinicsCOVID 19 INHOUSE [id number] 13:24:00 Test Item Value Reference Range Interpretation Comments COVID 19 INHOUSE AG NEGATIVE Negative Per manu facturer, (test code = negative result s should [id number]) be treated aspr esumptive and, if inconsi [...] and symptoms co nsistent with COVID-19. PROTHROMBIN [id number] 12:35:00 Test Item Value Reference Range Interpretation [...] (to prevent recurrent infar ct). THROMBOPLASTIN TIME [id number] 12:35:00 Test Item Value Reference Range Interpretation Comments THROMBOPLASTIN TIME PARTIAL 32.1 SECONDS 26-35 N (test code = PTT) BASIC METABOLIC [id number] 11:27:00 Test Item Value Reference Range Interpretation [...] CA) 9.4 MG/DL 8.5-10.1 N CBC W/AUTO [id number] 11:16:00 Test Item Value Reference Range Interpretation [...] code NO DIFF/SCN CRITERIA = MDIFF) URINALYSIS [id number] 10:02:00 Test Item Value Reference Range Interpretation [...] Specimen Type: Clean Catch- XR CHEST 1 [id number] 09:57:00 [facility] 1955 Sex: F Name: BOZENA MARSH [facility] : 1955 Age/S: 66 / F [id number] Unit #: [id number] Loc: [place] [address] Phys: Gama Gabriel MD Acct: [id number] Dis Date: Status: PRE [facility] PHONE #:[phone] Exam Date: 12/27/2021956 FAX #: Reason: PREOP EXAMS: CPT: [id number] XR CHEST 1 V 28147 Fluoro Time: DAP (Gy m2): Air Kerma [...] 1 Signed Report Name: BOZENA MARSH : 1955ge/S: 66 / F [address] #: [id number] Loc: [place] [address] Phys: Tatiana Gabriel Acct: [id number] Dis Date: Status: PRE SDC PHONE #: [phone] Exam Date: 12/27/2021 09 FAX#: Reason: PREOP EXAMS: CPT: [id number] XR CHEST 1 V 61842 Fluoro Time: DAP (Gy m2): Air Kerma (mGy): (Continued) Technologist: Enedelia Salter, RT(R) Trnscb Date/Time: 12/27/2021 (956) t.[email or web address] Orig Print D/T: S: 12/27/2021 (100) PAGE 2 Signed Report Urinalysis macro (dipstick) panel - [id number] 15:03:00 Test Item Value Reference Range Interpretation Comments Leukocytes (test code = Leukocytes) Small Nitrite (test code = Nitrite) negative Urobilinogen (test code = .2 Urobilinogen) Protein (test code = Protein) Trace pH (test code = pH) 7.0 Blood (test code = Blood) Moderate Specific [place] (test code = 1.015 Specific [place]) Ketone (test code = Ketone) Trace Bilirubin (test code = Bilirubin) Negative Glucose (test code = Glucose) Negative Appearance (test code = Appearance) Turbid Color (test code = Color) [facility] - Urine 2021-10-21 15:03:00 Test Item Value Reference Range Interpretation Comments Leukocytes (test code = Leukocytes) Small Nitrite (test code = Nitrite) negative Urobilinogen (test code = .2 Urobilinogen) Protein (test code = Protein) Trace pH (test code = pH) 7.0 Blood (test code = Blood) Moderate Specific [place] (test code = 1.015 Specific [place]) Ketone (test code = Ketone) Trace Bilirubin (test code = Bilirubin) Negative Glucose (test code = Glucose) Negative Appearance (test code = Appearance) Turbid Color (test code = Color) [facility] Centerrap[facility]rep group A, [id number] 14:56:00 Test Item Value Reference Range Interpretation Comments Strep (test code = Strep) negative [facility] Clinicsrapid strep group A, [id number] 14:56:00 Test Item Value Reference Range Interpretation Comments Strep (test code = Strep) negative [facility] Ag [Presence] in Respiratory specimen by Rapid [id number] 14:55:00 Test Item Value Reference Range Interpretation Comments SARS CoV 2 (test code = SARS CoV 2) negative [facility] Ag [Presence] in Respiratory specimen by Rapid [id number] 14:55:00 Test Item Value Reference Range Interpretation Comments SARS CoV 2 (test code = SARS CoV 2) negative [facility] Quantitative Duodenal Aspirate 2021-10-14 14:43:00 Test Item Value Reference Range Interpretation Comments Culture: Quantitative No Growth , aerobic Duodenal Aspirate (test culture No Anaerobes code = Culture: Isolated After 2 Days Quantitative Duodenal Aspirate) [facility] urinalysis [id number] 19:36:00 Test Item Value Reference Range Interpretation Comments Color urine, POC (test Yellow code = 5774657) Clarity urine, POC (test Clear code = 3383386) Glucose urine, POC (test Negative Negative code = 3812780) Bilirubin urine, POC Negative Negative (test code = 3805087) Ketones urine, POC (test Negative Negative code = 7258723) Specific gravity urine, 1.005-1.030 POC (test code = 1193056) Blood urine, POC (test Trace Negative A code = 1371372) pH urine, POC (test code See_Comment [A utomated message] = 1921632) The system [employer] generated this result transmitted ref erence range: 5.0, 5.5 , 6.0, 6.5, 7.0, 7.5, 8.0, 8.5. The refere nce range was not u sed to interpret this result as normal/abnor mal. Protein urine, POC (test Negative Negative code = 6399551) Urobilinogen urine, POC <2.0 See_Comment [Au tomated message] (test code = 8458919) The sy stem which generated this result transmitted ref erence range: <=2.0. T he reference range was not used to int erpret this result as normal/abnormal . Nitrite urine, POC (test Negative Negative code = 6474246) Leukocyte esterase Negative Negative urine, POC (test code = 1353399) Lab Interpretation (test Abnormal code = 91203-3) [facility] BLADDER SCAN/[id number] 19:36:00 Test Item Value Reference Range Interpretation Comments Volume (test code = 1072913) [facility] urinalysis [id number] 19:36:00 Test Item Value Reference Range Interpretation Comments Color urine, POC (test Yellow code = 8264002) Clarity urine, POC (test Clear code = 2787956) Glucose urine, POC (test Negative Negative code = 3987968) Bilirubin urine, POC Negative Negative (test code = 9977372) Ketones urine, POC (test Negative Negative code = 4813989) Specific gravity urine, 1.010 1.005-1.030 POC (test code = 3326798) Blood urine, POC (test Trace Negative A code = 7033610) pH urine, POC (test code 6.0 See_Comment [A utomated message] = 6474886) The system [employer] generated this result transmitted ref erence range: 5.0, 5.5 , 6.0, 6.5, 7.0, 7.5, 8.0, 8.5. The refere nce range was not u sed to interpret this result as normal/abnor mal. Protein urine, POC (test Negative Negative code = 8100743) Urobilinogen urine, POC <2.0 <=2.0 (test code = 3482470) Nitrite urine, POC (test Negative Negative code = 6540708) Leukocyte esterase Negative Negative urine, POC (test code = 4947968) Lab Interpretation (test Abnormal code = 19828-0) [facility] BLADDER SCAN/[id number] 19:36:00 Test Item Value Reference Range Interpretation Comments Volume (test code = 8956313) 28 [facility] urinalysis [id number] 19:36:00 Test Item Value Reference Range Interpretation Comments Color urine, POC (test Yellow code = 9018774) Clarity urine, POC (test Clear code = 0341587) Glucose urine, POC (test Negative Negative code = 9893156) Bilirubin urine, POC Negative Negative (test code = 6418776) Ketones urine, POC (test Negative Negative code = 1218916) Specific gravity urine, 1.010 1.005-1.030 POC (test code = 2543775) Blood urine, POC (test Trace Negative A code = 7340138) pH urine, POC (test code 6.0 See_Comment [A utomated message] = 0991850) The system [employer] generated this result transmitted ref erence range: 5.0, 5.5 , 6.0, 6.5, 7.0, 7.5, 8.0, 8.5. The refere nce range was not u sed to interpret this result as normal/abnor mal. Protein urine, POC (test Negative Negative code = 5191118) Urobilinogen urine, POC <2.0 <=2.0 (test code = 5660097) Nitrite urine, POC (test Negative Negative code = 9388293) Leukocyte esterase Negative Negative urine, POC (test code = 0138482) Lab Interpretation (test Abnormal code = 49676-2) [facility] BLADDER SCAN/[id number] 19:36:00 Test Item Value Reference Range Interpretation Comments Volume (test code = 2403180) 28 [facility] urinalysis [id number] 19:36:00 Test Item Value Reference Range Interpretation Comments Color urine, POC (test Yellow code = 2784811) Clarity urine, POC (test Clear code = 1975735) Glucose urine, POC (test Negative Negative code = 3661200) Bilirubin urine, POC Negative Negative (test code = 9328182) Ketones urine, POC (test Negative Negative code = 1402901) Specific gravity urine, 1.010 1.005-1.030 POC (test code = 0341947) Blood urine, POC (test Trace Negative A code = 3572085) pH urine, POC (test code 6.0 See_Comment [A utomated message] = 3361588) The system [employer] generated this result transmitted ref erence range: 5.0, 5.5 , 6.0, 6.5, 7.0, 7.5, 8.0, 8.5. The refere nce range was not u sed to interpret this result as normal/abnor mal. Protein urine, POC (test Negative Negative code = 9363983) Urobilinogen urine, POC <2.0 <=2.0 (test code = 6277750) Nitrite urine, POC (test Negative Negative code = 6118330) Leukocyte esterase Negative Negative urine, POC (test code = 2606059) Lab Interpretation (test Abnormal code = 30650-1) [facility] BLADDER SCAN/[id number] 19:36:00 Test Item Value Reference Range Interpretation Comments Volume (test code = 1346970) 28 [facility] urinalysis [id number] 19:36:00 Test Item Value Reference Range Interpretation Comments Color urine, POC (test Yellow code = 6729076) Clarity urine, POC (test Clear code = 8910807) Glucose urine, POC (test Negative Negative code = 3525709) Bilirubin urine, POC Negative Negative (test code = 1241226) Ketones urine, POC (test Negative Negative code = 7760684) Specific gravity urine, 1.010 1.005-1.030 POC (test code = 4388131) Blood urine, POC (test Trace Negative A code = 0799055) pH urine, POC (test code 6.0 See_Comment [A utomated message] = 5142306) The system [employer] generated this result transmitted ref erence range: 5.0, 5.5 , 6.0, 6.5, 7.0, 7.5, 8.0, 8.5. The refere nce range was not u sed to interpret this result as normal/abnor mal. Protein urine, POC (test Negative Negative code = 7639277) Urobilinogen urine, POC <2.0 <=2.0 (test code = 3994555) Nitrite urine, POC (test Negative Negative code = 4234186) Leukocyte esterase Negative Negative urine, POC (test code = 3001375) Lab Interpretation (test Abnormal code = 33336-7) [facility] BLADDER SCAN/[id number] 19:36:00 Test Item Value Reference Range Interpretation Comments Volume (test code = 6900874) 28 [facility] urinalysis [id number] 19:36:00 Test Item Value Reference Range Interpretation Comments Color urine, POC (test Yellow code = 2582173) Clarity urine, POC (test Clear code = 7416640) Glucose urine, POC (test Negative Negative code = 9555905) Bilirubin urine, POC Negative Negative (test code = 7911835) Ketones urine, POC (test Negative Negative code = 4353127) Specific gravity urine, 1.005-1.030 POC (test code = 4634886) Blood urine, POC (test Trace Negative A code = 5764553) pH urine, POC (test code See_Comment [A utomated message] = 9590739) The system [employer] generated this result transmitted ref erence range: 5.0, 5.5 , 6.0, 6.5, 7.0, 7.5, 8.0, 8.5. The refere nce range was not u sed to interpret this result as normal/abnor mal. Protein urine, POC (test Negative Negative code = 1604780) Urobilinogen urine, POC <2.0 See_Comment [Au tomated message] (test code = 4738313) The sy stem which generated this result transmitted ref erence range: <=2.0. T he reference range was not used to int erpret this result as normal/abnormal . Nitrite urine, POC (test Negative Negative code = 4253095) Leukocyte esterase Negative Negative urine, POC (test code = 8935357) Lab Interpretation (test Abnormal code = 63442-9) [facility] BLADDER SCAN/[id number] 19:36:00 Test Item Value Reference Range Interpretation Comments Volume (test code = 2289189) [facility] urinalysis [id number] 19:36:00 Test Item Value Reference Range Interpretation Comments Color urine, POC (test Yellow code = 4489222) Clarity urine, POC (test Clear code = 4822066) Glucose urine, POC (test Negative Negative code = 5524559) Bilirubin urine, POC Negative Negative (test code = 2525130) Ketones urine, POC (test Negative Negative code = 4273210) Specific gravity urine, 1.005-1.030 POC (test code = 3148780) Blood urine, POC (test Trace Negative A code = 3533677) pH urine, POC (test code See_Comment [A utomated message] = 1228940) The system [employer] generated this result transmitted ref erence range: 5.0, 5.5 , 6.0, 6.5, 7.0, 7.5, 8.0, 8.5. The refere nce range was not u sed to interpret this result as normal/abnor mal. Protein urine, POC (test Negative Negative code = 9456505) Urobilinogen urine, POC <2.0 See_Comment [Au tomated message] (test code = 3503128) The sy stem which generated this result transmitted ref erence range: <=2.0. T he reference range was not used to int erpret this result as normal/abnormal . Nitrite urine, POC (test Negative Negative code = 9764987) Leukocyte esterase Negative Negative urine, POC (test code = 3398399) Lab Interpretation (test Abnormal code = 47436-7) [facility] BLADDER SCAN/[id number] 19:36:00 Test Item Value Reference Range Interpretation Comments Volume (test code = 8699639) [facility] urinalysis [id number] 19:36:00 Test Item Value Reference Range Interpretation Comments Color urine, POC (test Yellow code = 7582488) Clarity urine, POC (test Clear code = 4170121) Glucose urine, POC (test Negative Negative code = 2401114) Bilirubin urine, POC Negative Negative (test code = 2662565) Ketones urine, POC (test Negative Negative code = 0977099) Specific gravity urine, 1.005-1.030 POC (test code = 5482380) Blood urine, POC (test Trace Negative A code = 2429891) pH urine, POC (test code See_Comment [A utomated message] = 7445852) The system [employer] generated this result transmitted ref erence range: 5.0, 5.5 , 6.0, 6.5, 7.0, 7.5, 8.0, 8.5. The refere nce range was not u sed to interpret this result as normal/abnor mal. Protein urine, POC (test Negative Negative code = 8234582) Urobilinogen urine, POC <2.0 See_Comment [Au tomated message] (test code = 3396166) The sy stem which generated this result transmitted ref erence range: <=2.0. T he reference range was not used to int erpret this result as normal/abnormal . Nitrite urine, POC (test Negative Negative code = 0721145) Leukocyte esterase Negative Negative urine, POC (test code = 6589807) Lab Interpretation (test Abnormal code = 57015-0) [facility] BLADDER SCAN/[id number] 19:36:00 Test Item Value Reference Range Interpretation Comments Volume (test code = 3857055) [facility] urinalysis [id number] 19:36:00 Test Item Value Reference Range Interpretation Comments Color urine, POC (test Yellow code = 9168455) Clarity urine, POC (test Clear code = 5396081) Glucose urine, POC (test Negative Negative code = 5509679) Bilirubin urine, POC Negative Negative (test code = 7075571) Ketones urine, POC (test Negative Negative code = 7472597) Specific gravity urine, 1.005-1.030 POC (test code = 9280057) Blood urine, POC (test Trace Negative A code = 7587830) pH urine, POC (test code See_Comment [A utomated message] = 0326372) The system [employer] generated this result transmitted ref erence range: 5.0, 5.5 , 6.0, 6.5, 7.0, 7.5, 8.0, 8.5. The refere nce range was not u sed to interpret this result as normal/abnor mal. Protein urine, POC (test Negative Negative code = 7810172) Urobilinogen urine, POC <2.0 See_Comment [Au tomated message] (test code = 0484094) The sy stem which generated this result transmitted ref erence range: <=2.0. T he reference range was not used to int erpret this result as normal/abnormal . Nitrite urine, POC (test Negative Negative code = 3617432) Leukocyte esterase Negative Negative urine, POC (test code = 9952714) Lab Interpretation (test Abnormal code = 01817-5) [facility] BLADDER SCAN/[id number] 19:36:00 Test Item Value Reference Range Interpretation Comments Volume (test code = 3778181) [facility] urinalysis [id number] 19:36:00 Test Item Value Reference Range Interpretation Comments Color urine, POC (test Yellow code = 2877588) Clarity urine, POC (test Clear code = 9094546) Glucose urine, POC (test Negative Negative code = 0080283) Bilirubin urine, POC Negative Negative (test code = 2942746) Ketones urine, POC (test Negative Negative code = 7077946) Specific gravity urine, 1.005-1.030 POC (test code = 0451596) Blood urine, POC (test Trace Negative A code = 9845680) pH urine, POC (test code See_Comment [A utomated message] = 6306882) The system [employer] generated this result transmitted ref erence range: 5.0, 5.5 , 6.0, 6.5, 7.0, 7.5, 8.0, 8.5. The refere nce range was not u sed to interpret this result as normal/abnor mal. Protein urine, POC (test Negative Negative code = 5441042) Urobilinogen urine, POC <2.0 See_Comment [Au tomated message] (test code = 1001302) The sy stem which generated this result transmitted ref erence range: <=2.0. T he reference range was not used to int erpret this result as normal/abnormal . Nitrite urine, POC (test Negative Negative code = 2258076) Leukocyte esterase Negative Negative urine, POC (test code = 9915665) Lab Interpretation (test Abnormal code = 60032-9) [facility] BLADDER SCAN/[id number] 19:36:00 Test Item Value Reference Range Interpretation Comments Volume (test code = 9393989) [facility] [id number] 00:00:00 Test Item Value Reference Range Interpretation Comments Bacteria identified in Urine by no growth Culture (test code = 630-4) [facility] 2021-07-24 00:00:00 Test Item Value Reference Range Interpretation Comments Bacteria identified in Urine by no growth Culture (test code = 630-4) [facility]written [id number] 00:00:00 Test Item Value Reference Range Interpretation Comments written authorization (test code = comment written authorization) [facility] 2021-06-29 00:00:00 Test Item Value Reference Range Interpretation Comments Bacteria identified in Urine by no growth Culture (test code = 630-4) [facility] 2021-06-29 00:00:00 Test Item Value Reference Range Interpretation Comments Bacteria identified in Urine by no growth Culture (test code = 630-4) [facility] 2021-06-29 00:00:00 Test Item Value Reference Range Interpretation Comments Bacteria identified in Urine by no growth Culture (test code = 630-4) [facility] 2021-06-29 00:00:00 Test Item Value Reference Range Interpretation Comments Bacteria identified in Urine by no growth Culture (test code = 630-4) [facility] macro (dipstick) panel - Urine 2021-06-27 16:17:00 Test Item Value Reference Range Interpretation Comments Leukocytes (test code = Small Leukocytes) Nitrite (test code = negative Nitrite) Urobilinogen (test code = .2 Urobilinogen) Protein (test code = Negative Protein) pH (test code = pH) 7.5 Blood (test code = Blood) Non-Hemolyzed: Trace Specific [place] (test 1.000 code = Specific [place]) Ketone (test code = Negative Ketone) Bilirubin (test code = Negative Bilirubin) Glucose (test code = Negative Glucose) Appearance (test code = Clear Appearance) Color (test code = Color) Pale Yellow [facility] (dipstick) panel - Urine 2021-06-27 16:17:00 Test Item Value Reference Range Interpretation Comments Leukocytes (test code = Small Leukocytes) Nitrite (test code = negative Nitrite) Urobilinogen (test code = .2 Urobilinogen) Protein (test code = Negative Protein) pH (test code = pH) 7.5 Blood (test code = Blood) Non-Hemolyzed: Trace Specific [place] (test 1.000 code = Specific [place]) Ketone (test code = Negative Ketone) Bilirubin (test code = Negative Bilirubin) Glucose (test code = Negative Glucose) Appearance (test code = Clear Appearance) Color (test code = Color) Pale Yellow [facility] W Auto Differential panel - [id number] 00:00:00 Test Item Value Reference Range Interpretation [...] = 706-2) immature cells (test code = psychiatric arnp immature cells) Neutrophils [#/volume] in Blood [...] Blood by Automated count (test code = 77344-8) Immature granulocytes 0.0 x10e3/uL 0.0-0.1 [#/volume] in Blood by Automated count (test code = 22389-9) Nucleated erythrocytes/100 psychiatric arnp leukocytes [Ratio] in Blood by Automated count (test code = 28296-3) Morphology [Interpretation] in psychiatric arnp Blood Narrative (test code = 85726-4) [facility] CenterCom[facility] 2000 panel - Serum or [id number] 00:00:00 Test Item Value Reference Range Interpretation [...] mg/dL 8.7-10.3 or Plasma (test code = 60150-3) Protein [Mass/volume] in Serum 6.5 g/dL 6.0-8.5 or Plasma (test code = 2885-2) Albumin [Mass/volume] in Serum 4.4 g/dL 3.8-4.8 or Plasma (test code = 1751-7) Globulin [Mass/volume] in 2.1 g/dL 1.5-4.5 Serum by calculation (test code = 97688-4) Albumin/Globulin [Mass Ratio] 2.1 1.2-2.2 in Serum or Plasma (test code = 1759-0) Bilirubin.total [Mass/volume] <0.2 0.0-1.2 in Serum or Plasma (test code = 1975-) Alkaline phosphatase 86 IU/L 44-121 [Enzymatic activity/volume] in Serum or Plasma (test code = 6768-6) Aspartate aminotransferase 24 IU/L 0-40 [Enzymatic activity/volume] in Serum or Plasma (test code = 1920-8) Alanine aminotransferase 37 IU/L 0-32 H [Enzymatic activity/volume] in Serum or Plasma (test code = 1742-6) [facility] CenterThyrotropin [Units/volume] in Serum or Plasma by Detection limit <= 0.005 mIU/[id number] 00:00:00 Test Item Value Reference Range Interpretation Comments Thyrotropin [Units/volume] in 2.820 uIU/mL 0.450-4.500 Serum or Plasma by Detection limit <= 0.005 mIU/L (test code = 50429-9) [facility] CenterThyroxine (T4) free [Mass/volume] in Serum or [id number] 00:00:00 Test Item Value Reference Range Interpretation Comments Thyroxine (T4) free [Mass/volume] 1.04 NG/dL 0.82-1.77 in Serum or Plasma (test code = 3024-7) [facility] Cent[facility]o test [id number] 00:00:00 Test Item Value Reference Range Interpretation Comments dear doctor, (test code = dear comment doctor,) [facility] CenterLipid 1996 panel - Serum or [id number] 00:00:00 Test Item Value Reference Range Interpretation [...] or Plasma by calculation (test code = 70169-5) Cholesterol in LDL [Mass/volume] in 156 mg/dL 0-99 H Serum or Plasma by calculation (test code = 91850-0) Laboratory comment [Text] in Report psychiatric arnp Narrative (test code = 95714-0) Cholesterol in LDL/Cholesterol in 3.0 ratio 0.0-3.2 HDL [Mass Ratio] in Serum or Plasma (test code = 32488-7) [facility] CenterHelicobacter pylori IgA and IgG and IgM [Interpretation] in Serum or [id number] 00:00:00 Test Item Value Reference Range Interpretation Comments Helicobacter pylori IgG Ab 0.45 index value 0.00-0.79 [Units/volume] in Serum by Immunoassay (test code = 5176-3) Helicobacter pylori IgA Ab <9.0 0.0-8.9 [Units/volume] in Serum (test code = 7901-2) Helicobacter pylori IgM Ab <9.0 0.0-8.9 [Units/volume] in Serum (test code = 7903-8) [facility] CenterFolate+Cyanocobalamin [Interpretation] in Serum or [id number] 00:00:00 Test Item Value Reference Range Interpretation Comments Cobalamin (Vitamin B12) 920 pg/mL 232-1245 [Mass/volume] in Serum or Plasma (test code = 2132-9) Folate [Mass/volume] in Serum or >20.0 >3.0 Plasma (test code = 2284-8) [facility]25-Hydroxyvitamin D3+25-Hydroxyvitamin D2 [Mass/volume] in Serum or [id number] 00:00:00 Test Item Value Reference Range Interpretation Comments 25-Hydroxyvitamin 36.5 NG/mL 30.0-100.0 D3+25-Hydroxyvitamin D2 [Mass/volume] in Serum or Plasma (test code = 94121-5) [facility] CenterFerritin [Mass/volume] in Serum or Plasma 2021-06-25 00:00:00 Test Item Value Reference Range Interpretation Comments Ferritin [Mass/volume] in Serum or 96 NG/mL 15-150 Plasma (test code = 2276-4) [facility] CenterUrinalysis macro (dipstick) panel - Urine 2021-04-09 13:17:00 Test Item Value Reference Range Interpretation Comments Leukocytes (test code = Small Leukocytes) Nitrite (test code = negative Nitrite) Urobilinogen (test code = .2 Urobilinogen) Protein (test code = Negative Protein) pH (test code = pH) 5.0 Blood (test code = Blood) Hemolyzed: Trace Specific [place] (test code 1.015 = Specific [place]) Ketone (test code = Ketone) Negative Bilirubin (test code = Negative Bilirubin) Glucose (test code = Negative Glucose) [facility] CenterSARS[facility]CoV-[facility] (COVID-19) Ag [Presence] in Respiratory specimen by Rapid [id number] 16:26:00 Test Item Value Reference Range Interpretation Comments SARS CoV 2 (test code = SARS CoV 2) negative [facility] ([facility]OVID-19) Ag [Presence] in Respiratory specimen by Rapid [id number] 16:26:00 Test Item Value Reference Range Interpretation Comments SARS CoV 2 (test code = SARS CoV 2) negative [facility] ([facility]-19) Ag [Presence] in Respiratory specimen by Rapid [id number] 16:26:00 Test Item Value Reference Range Interpretation Comments SARS CoV 2 (test code = SARS CoV 2) negative [facility] ([facility]OVID-19) Ag [Presence] in Respiratory specimen by Rapid [id number] 16:26:00 Test Item Value Reference Range Interpretation Comments SARS CoV 2 (test code = SARS CoV 2) negative [facility] (A+B)2021-02-25 16:10:00 Test Item Value Reference Range Interpretation Comments FLU A (test code = FLU A) negative FLU B (test code = FLU B) [facility] 16:10:00 Test Item Value Reference Range Interpretation Comments FLU A (test code = FLU A) negative FLU B (test code = FLU B) [facility]25 16:10:00 Test Item Value Reference Range Interpretation Comments FLU A (test code = FLU A) negative FLU B (test code = FLU B) [facility] ([facility]2021-02-25 16:10:00 Test Item Value Reference Range Interpretation Comments FLU A (test code = FLU A) negative FLU B (test code = FLU B) negative [facility] strep group A, [id number] 16:09:00 Test Item Value Reference Range Interpretation Comments Strep (test code = Strep) [facility], [id number] 16:09:00 Test Item Value Reference Range Interpretation Comments Strep (test code = Strep) positive [facility] strep group A, [id number] 16:09:00 Test Item Value Reference Range Interpretation Comments Strep (test code = Strep) positive [facility] strep group A, [id number] 16:09:00 Test Item Value Reference Range Interpretation Comments Strep (test code = Strep) positive [facility] CenterHeterophile Ab [Presence] in Blood by [id number] 15:33:00 Test Item Value Reference Range Interpretation Comments [place] (test code = [place]) negative [facility] CenterHeterophile Ab [Presence] in Blood by [id number] 15:33:00 Test Item Value Reference Range Interpretation Comments [place] (test code = [place]) negative [facility] CenterIron and Iron binding capacity panel - Serum or [id number] 00:00:00 Test Item Value Reference Range Interpretation [...] Serum or Plasma (test code = 2502-3) [facility] CenterFolate+Cyanocobalamin [Interpretation] in Serum or [id number] 00:00:00 Test Item Value Reference Range Interpretation Comments Cobalamin (Vitamin B12) 971 pg/mL 232-1245 [Mass/volume] in Serum or Plasma (test code = 2132-9) Folate [Mass/volume] in Serum or >20.0 >3.0 Plasma (test code = 2284-8) [facility] CenterPhosphate [Mass/volume] in Serum or Plasma 2020-07-27 00:00:00 Test Item Value Reference Range Interpretation Comments Phosphate [Mass/volume] in Serum or 3.0 mg/dL 3.0-4.3 Plasma (test code = 2777-1) [facility] CenterErythrocyte sedimentation rate by Westergren [id number] 00:00:00 Test Item Value Reference Range Interpretation Comments Erythrocyte sedimentation rate by 4 mm/HR 0-40 Westergren method (test code = 4537-7) [facility] CenterMagnesium [Mass/volume] in Serum or Plasma 2020-07-27 00:00:00 Test Item Value Reference Range Interpretation Comments Magnesium [Mass/volume] in Serum or 2.2 mg/dL 1.6-2.3 Plasma (test code = 74499-2) [facility] CenterIron and Iron binding capacity panel - Serum or [id number] 00:00:00 Test Item Value Reference Range Interpretation [...] Serum or Plasma (test code = 2502-3) [facility] CenterFolate+Cyanocobalamin [Interpretation] in Serum or [id number] 00:00:00 Test Item Value Reference Range Interpretation Comments Cobalamin (Vitamin B12) 971 pg/mL 232-1245 [Mass/volume] in Serum or Plasma (test code = 2132-9) Folate [Mass/volume] in Serum or >20.0 >3.0 Plasma (test code = 2284-8) [facility] CenterPhosphate [Mass/volume] in Serum or Plasma 2020-07-27 00:00:00 Test Item Value Reference Range Interpretation Comments Phosphate [Mass/volume] in Serum or 3.0 mg/dL 3.0-4.3 Plasma (test code = 2777-1) [facility] CenterErythrocyte sedimentation rate by Westergren [id number] 00:00:00 Test Item Value Reference Range Interpretation Comments Erythrocyte sedimentation rate by 4 mm/HR 0-40 Westergren method (test code = 4537-7) [facility] CenterMagnesium [Mass/volume] in Serum or Plasma 2020-07-27 00:00:00 Test Item Value Reference Range Interpretation Comments Magnesium [Mass/volume] in Serum or 2.2 mg/dL 1.6-2.3 Plasma (test code = 61371-1) [facility] AND [id number] 23:55:00 Test Item Value Reference Range Interpretation Comments UA Color (test code = Light Yellow UA Color) *NA*(01/11/20 6:55 PM) [facility] AND [id number] 23:55:00 Test Item Value Reference Range Interpretation Comments UA Turbidity (test code = Clear (01/11/20 6:55 UA Turbidity) PM) [facility] AND [id number] 23:55:00 Test Item Value Reference Range Interpretation Comments UA Spec Grav (test code = UA Spec 1.005 1 Grav) [facility] AND [id number] 23:55:00 Test Item Value Reference Range Interpretation Comments UA pH (test code = UA pH) 7.0 1 5.0-8.0 [facility] [id number] 23:55:00 Test Item Value Reference Range Interpretation Comments UA Protein (test code Negative (01/11/20 6:55 = UA Protein) PM) [facility] [id number] 23:55:00 Test Item Value Reference Range Interpretation Comments UA Glucose (test code Negative *NA*(01/11/20 = UA Glucose) 6:55 PM) [facility] [id number] 23:55:00 Test Item Value Reference Range Interpretation Comments UA Ketones (test code Negative *NA*(01/11/20 = UA Ketones) 6:55 PM) [facility] [id number] 23:55:00 Test Item Value Reference Range Interpretation Comments UA Bili (test code = Negative *NA*(01/11/20 UA Bili) 6:55 PM) [facility] [id number] 23:55:00 Test Item Value Reference Range Interpretation Comments UA Blood (test code = Small *ABN*(01/11/20 UA Blood) 6:55 PM) [facility] [id number] 23:55:00 Test Item Value Reference Range Interpretation Comments UA Urobilinogen (test code = UA <=1.0 mg/dL 0.1-1.0 Urobilinogen) [facility] [id number] 23:55:00 Test Item Value Reference Range Interpretation Comments UA Nitrite (test code Negative (01/11/20 6:55 = UA Nitrite) PM) [facility] [id number] 23:55:00 Test Item Value Reference Range Interpretation Comments UA Leuk Est (test code Trace *ABN*(01/11/20 = UA Leuk Est) 6:55 PM) [facility] [id number] 23:55:00 Test Item Value Reference Range Interpretation Comments UA Sq Epi (test code = UA Sq Occasional /LPF Epi) [facility] [id number] 23:55:00 Test Item Value Reference Range Interpretation Comments UA WBC (test code = 5 See_Comment [Automa fabi message] The UA WBC) system which ge nerated this result transmit fabi reference range : <=5. The reference range was not used to interpr et this result as bhavya l/abnormal. [facility] [id number] 23:55:00 Test Item Value Reference Range Interpretation Comments UA RBC (test code = 1 See_Comment [Automa fabi message] The UA RBC) system which ge nerated this result transmit fabi reference range : <=2. The reference range was not used to interpr et this result as bhavya l/abnormal. [facility] [id number] 23:55:00 Test Item Value Reference Range Interpretation Comments UA Bacteria (test code = UA Occasional /HPF Bacteria) [facility] [id number] 23:40:00 Test Item Value Reference Range Interpretation Comments Troponin-I (test code no gt See_Comment [Auto mated message] The = Troponin-I) system which g enerated this result transmit fabi reference range : <=0.40. The reference r theron was not used to interpr et this result as bhavya l/abnormal. [facility] [employer] [id number] 23:40:00 Test Item Value Reference Range Interpretation Comments Glucose Lvl (test code = Glucose Lvl) 94 70-99 [facility] [employer] [id number] 23:40:00 Test Item Value Reference Range Interpretation Comments BUN (test code = BUN) 10 7-22 [facility] [employer] [id number] 23:40:00 Test Item Value Reference Range Interpretation Comments Creatinine Lvl (test code = Creatinine 0.93 0.50-1.40 Lvl) [facility] [employer] [id number] 23:40:00 Test Item Value Reference Range Interpretation Comments Sodium Lvl (test code = Sodium Lvl) 139 135-145 [facility] [employer] [id number] 23:40:00 Test Item Value Reference Range Interpretation Comments Potassium Lvl (test code = Potassium 3.6 3.5-5.1 Lvl) [facility] [employer] [id number] 23:40:00 Test Item Value Reference Range Interpretation Comments Chloride Lvl (test code = Chloride Lvl) 104 95-109 [facility] [employer] [id number] 23:40:00 Test Item Value Reference Range Interpretation Comments CO2 (test code = CO2) 28 24-32 [facility] [employer] [id number] 23:40:00 Test Item Value Reference Range Interpretation Comments Calcium Lvl (test code = Calcium Lvl) 9.4 8.5-10.5 [facility] [employer] [id number] 23:40:00 Test Item Value Reference Range Interpretation Comments Total Protein (test code = Total 7.2 6.4-8.4 Protein) [facility] [employer] [id number] 23:40:00 Test Item Value Reference Range Interpretation Comments Albumin Lvl (test code = Albumin Lvl) 3.7 3.5-5.0 [facility] [employer] [id number] 23:40:00 Test Item Value Reference Range Interpretation Comments ALT (test code = ALT) 28 See_Comment [Auto mated message] The system which ge nerated this result transmit fabi reference range : <=65. The reference range was not used to interpr et this result as bhavya l/abnormal. [facility] [employer] [id number] 23:40:00 Test Item Value Reference Range Interpretation Comments AST (test code = AST) 23 See_Comment [Auto mated message] The system which ge nerated this result transmit fabi reference range : <=37. The reference range was not used to interpr et this result as bhavya l/abnormal. [facility] [employer] [id number] 23:40:00 Test Item Value Reference Range Interpretation Comments Alk Phos (test code = Alk Phos) 78 39-136 [facility] [employer] [id number] 23:40:00 Test Item Value Reference Range Interpretation Comments Bili Total (test code = Bili Total) 1.1 0.2-1.3 [facility] [employer] [id number] 23:40:00 Test Item Value Reference Range Interpretation Comments AGAP (test code = AGAP) 10.6 10.0-20.0 [facility] [employer] [id number] 23:40:00 Test Item Value Reference Range Interpretation Comments B/C Ratio (test code = B/C Ratio) 11 1 6-25 [facility] [employer] [id number] 23:40:00 Test Item Value Reference Range Interpretation Comments Globulin (test code = Globulin) 3.5 2.7-4.2 [facility] [employer] [id number] 23:40:00 Test Item Value Reference Range Interpretation Comments A/G Ratio (test code = A/G Ratio) 1.1 1 0.7-1.6 [place] [id number] 23:40:00 Test Item Value Reference Range Interpretation Comments eGFR (test code = eGFR) [address] [facility] [id number] 23:40:00 Test Item Value Reference Range Interpretation Comments Lipase Lvl (test code = Lipase Lvl) 139 73-393 [place] [address]-10-14 23:40:00 Test Item Value Reference Range Interpretation Comments Magnesium Lvl (test code = Magnesium 2.1 1.8-2.4 Lvl) [facility] HospitalLiydhlxQQKQRSGUJH8731-40-39 23:40:00 Test Item Value Reference Range Interpretation Comments WBC (test code = WBC) 8.8 3.7-10.4 [place] [address]-10-14 23:40:00 Test Item Value Reference Range Interpretation Comments RBC (test code = RBC) 5.09 4.20-5.40 [facility] HospitalHfqbdxfGJVLYLAANG8312-42-51 23:40:00 Test Item Value Reference Range Interpretation Comments Hgb (test code = Hgb) 15.6 12.0-16.0 [place] [address]-10-14 23:40:00 Test Item Value Reference Range Interpretation Comments Hct (test code = Hct) 45.2 36.0-48.0 [facility] HospitalYtlmjrlQHRXPMYGAR0692-00-17 23:40:00 Test Item Value Reference Range Interpretation Comments MCV (test code = MCV) 88.8 80.0-98.0 [place] [address]-10-14 23:40:00 Test Item Value Reference Range Interpretation Comments MCH (test code = MCH) 30.7 pg 27.0-31.0 [place] [address]-10-14 23:40:00 Test Item Value Reference Range Interpretation Comments MCHC (test code = MCHC) 34.6 32.0-36.0 [place] [address]-10-14 23:40:00 Test Item Value Reference Range Interpretation Comments RDW (test code = RDW) 13.6 11.5-14.5 [place] [address]-10-14 23:40:00 Test Item Value Reference Range Interpretation Comments Platelet (test code = Platelet) 192 133-450 [facility] HospitalCdfajncKTWPTHJMPH4247-82-56 23:40:00 Test Item Value Reference Range Interpretation Comments MPV (test code = MPV) 9.4 7.4-10.4 [place] 735490-10-14 23:40:00 Test Item Value Reference Range Interpretation Comments PT (test code = PT) 12.6 s 12.0-14.7 [place] 735490-10-14 23:40:00 Test Item Value Reference Range Interpretation Comments INR (test code = INR) 0.94 1 0.85-1.17 [place] 735490-10-14 23:40:00 Test Item Value Reference Range Interpretation Comments PTT (test code = PTT) 23.7 s 22.9-35.8 [place] 735490-10-14 23:40:00 Test Item Value Reference Range Interpretation Comments Segs (test code = Segs) 67.2 45.0-75.0 [place] [address]-10-14 23:40:00 Test Item Value Reference Range Interpretation Comments Lymphocytes (test code = Lymphocytes) 21.9 20.0-40.0 [facility] HospitalCxnpgnqMPBSYSDFUO4388-35-67 23:40:00 Test Item Value Reference Range Interpretation Comments Monocytes (test code = Monocytes) 8.9 2.0-12.0 [facility] HospitalDrxzomtWTLMGYAGOL0080-89-77 23:40:00 Test Item Value Reference Range Interpretation Comments Eosinophils (test code = 1.2 See_Comment [A utomated message] The Eosinophils) system which ge nerated this result tra nsmitted reference range : <=4.0. The reference r theron was not used to int erpret this result as normal/abnormal . [facility] HospitalLyjknuhOLKNCLMZPU1908-34-73 23:40:00 Test Item Value Reference Range Interpretation Comments Basophils (test code = 0.8 See_Comment [Aut omated message] The Basophils) system which ge nerated this result tra nsmitted reference range : <=1.0. The reference r theron was not used to int erpret this result as normal/abnormal . [facility] HospitalQwuubjgMUANVOKFBR6336-45-77 23:40:00 Test Item Value Reference Range Interpretation Comments Neutrophils # (test code = Neutrophils 5.9 1.5-8.1 #) [facility] HospitalEghatxbGLOQUSELIV2329-51-91 23:40:00 Test Item Value Reference Range Interpretation Comments Lymphocytes # (test code = Lymphocytes 1.9 1.0-5.5 #) [facility] HospitalXxqvbhwVHHITJWLAW3388-65-17 23:40:00 Test Item Value Reference Range Interpretation Comments Monocytes # (test code 0.8 See_Comment [Aut omated message] The = Monocytes #) system which generated this result tra nsmitted reference range : <=0.8. The reference r theron was not used to int erpret this result as normal/abnormal . [facility] HospitalOijkiyxLOGYBKMNVB7786-61-82 23:40:00 Test Item Value Reference Range Interpretation Comments Eosinophils # (test code 0.1 See_Comment [A utomated message] The = Eosinophils #) system whic h generated this result tra nsmitted reference range : <=0.5. The reference r theron was not used to int erpret this result as normal/abnormal . [facility] HospitalFjtzndjHOKAQVKRVD8944-08-62 23:40:00 Test Item Value Reference Range Interpretation Comments Basophils # (test code 0.1 See_Comment [Aut omated message] The = Basophils #) system which generated this result tra nsmitted reference range : <=0.2. The reference r theron was not used to int erpret this result as normal/abnormal . [facility] HospitalNyxugwnEACO4331-29-82 11:22:00 RUN DATE: 01/01/18 [facility] - LAB *LIVE* PAGE 1 RUN TIME: 1122 Specimen Inquiry RUN USER: INTERFACE PATIENT: BOZENA MARSH #: [id number] LOC: EVA U #: [id number] AGE/SX: 62/F ROOM: [facility]: Raz Gaspar III : 57 BED: DIS: STATUS: [facility] TLOC: SPEC #: [id number] RECD: 12/31/17 STATUS: HENRY DANNY #: [id number] SHYANN: 12/31/[address]: Raz Gaspar III, MD ENTERED: 12/31/17 SP TYPE: SURG OTHR DR: No Primary or Family PhysicianORDERED: SURG PATH LVL 1, SURG PATH LVL 4 COPIES TO: No Primary [place] [id number] [place] [address] HISTOLOGY: TISSUE ID BLK PCS ANAIS LEV PROCEDURE DISPOSITION ____ ___ ___ ___ NASAL TURBINATE A 1 1 NASAL SEPTUM, N B 1 1 PROCEDURES: SURG PATH LVL 1 (01/01/18) SURG PATH LVL 4 (01/01/18) TISSUES: A.NASAL TURBINATE, NOS - BILATERAL INFERIOR TURBINATES B. NASAL SEPTUM, NOS - SEPTUM CPT CODES CPT CODE(S): 56422 , 75747 , , , , , FINAL DIAGNOSIS A. Inferior turbinate, bilateral, endoscopic sinus surgery: SINUS CONTENTS CONSISTENT WITH CHRONIC SINUSITIS B. Nasal septum, septoplasty: BONE AND CARTILAGE (GROSS ONLY) GROSS DESCRIPTION A. Bilateral inferior turbinates. Received in formalin are irregularfragments of sauceda-brown soft tissue admixed with dark brown blood clots, 2.7 x 1.8 x 1.0 cm in aggregate. Lepidopterist sections submitted as A. B. Septum. Received in formalin are multiple irregular fragments of cartilage CONTINUED ON NEXT PAGE RUN DATE: 01/01/18 [facility] - LAB *LIVE* PAGE 2 RUN TIME: 112 Specimen Inquiry RUN USER: INTERFACE SPEC #: [facility]:[id number] PATIENT: BOZENA MARSH #[id number] (Continued) GROSS DESCRIPTION (Continued) and bones, 5.0 x 3.5 x 0.7 cm in aggregate. The specimen is photographed for gross identification only. ba/nr Grossing performed at [facility] Pathology, [facility], [address], [place] [address]. Research Advisor: Ralph Dash M.D. MICROSCOPIC DESCRIPTION A. Bilateral inferior turbinates. Fragments of respiratory epithelium lined mucosa. There arebenign mucus glands and a chronic inflammatory infiltrate. Fragments of unremarkable cartilage and bone present. No evidence of malignancy. B. Septum. For gross identification only. /doug Signed SIGNATURE ON Kel Loera 01/01/18 1122 END OF REPORT CARDIAC [id number] 22:47:00 Test Item Value Reference Range Interpretation Comments Troponin-I (test code no gt See_Comment [Auto mated message] The = Troponin-I) system which g enerated this result transmit fabi reference range : <=0.40. The reference r theron was not used to interpr et this result as bhavya l/abnormal. [facility] [employer] [id number] 22:47:00 Test Item Value Reference Range Interpretation Comments CK MB (test code = CK MB) no gt 0.5-3.6 [facility] [employer]AC [id number] 22:47:00 Test Item Value Reference Range Interpretation Comments Total CK (test code = Total CK) 54 12-191 [facility] [employer] [id number] 22:47:00 Test Item Value Reference Range Interpretation Comments CK MB Index (test no gt See_Comment [Automate d message] The code = CK MB Index) system w [facility] generated this result transmit fabi reference range : <=2.5. The reference range was not used to interpr et this result as bhavya l/abnormal. [employer]M [id number] 22:47:00 Test Item Value Reference Range Interpretation Comments Total Protein (test code = Total 7.0 6.4-8.4 Protein) [facility]2016-06-19 22:47:00 Test Item Value Reference Range Interpretation Comments eGFR (test code = eGFR) 71 [facility]2016-06-19 22:47:00 Test Item Value Reference Range Interpretation Comments Globulin (test code = Globulin) 3.3 2.0-4.0 [facility]2016-06-19 22:47:00 Test Item Value Reference Range Interpretation Comments A/G Ratio (test code = A/G Ratio) 1.1 0.7-1.6 [place] 285176-06-19 22:47:00 Test Item Value Reference Range Interpretation Comments Bili Total (test code = Bili Total) 0.8 0.2-1.3 [place] 285176-06-19 22:47:00 Test Item Value Reference Range Interpretation Comments Alk Phos (test code = Alk Phos) 77 39-136 [facility]2016-06-19 22:47:00 Test Item Value Reference Range Interpretation Comments AGAP (test code = AGAP) 12.7 10.0-20.0 [facility]2016-06-19 22:47:00 Test Item Value Reference Range Interpretation Comments B/C Ratio (test code = B/C Ratio) 18 6-25 [facility]2016-06-19 22:47:00 Test Item Value Reference Range Interpretation Comments Albumin Lvl (test code = Albumin Lvl) 3.7 3.5-5.0 [facility]2016-06-19 22:47:00 Test Item Value Reference Range Interpretation Comments ALT (test code = ALT) 24 See_Comment [Auto mated message] The system which ge nerated this result transmit fabi reference range : <=65. The reference range was not used to interpr et this result as bhavya l/abnormal. [facility]2016-06-19 22:47:00 Test Item Value Reference Range Interpretation Comments AST (test code = AST) 18 See_Comment [Auto mated message] The system which ge nerated this result transmit fabi reference range : <=37. The reference range was not used to interpr et this result as bhavya l/abnormal. [place] 285176-06-19 22:47:00 Test Item Value Reference Range Interpretation Comments Chloride Lvl (test code = Chloride Lvl) 108 95-109 [facility]2016-06-19 22:47:00 Test Item Value Reference Range Interpretation Comments Potassium Lvl (test code = Potassium 3.7 3.5-5.1 Lvl) [facility]2016-06-19 22:47:00 Test Item Value Reference Range Interpretation Comments CO2 (test code = CO2) 28 24-32 [facility]2016-06-19 22:47:00 Test Item Value Reference Range Interpretation Comments Calcium Lvl (test code = Calcium Lvl) 8.6 8.5-10.5 [facility]2016-06-19 22:47:00 Test Item Value Reference Range Interpretation Comments Sodium Lvl (test code = Sodium Lvl) 145 135-145 [facility]2016-06-19 22:47:00 Test Item Value Reference Range Interpretation Comments Creatinine Lvl (test code = Creatinine 0.90 0.50-1.40 Lvl) [facility]2016-06-19 22:47:00 Test Item Value Reference Range Interpretation Comments BUN (test code = BUN) 16 7-22 [facility]2016-06-19 22:47:00 Test Item Value Reference Range Interpretation Comments Glucose Lvl (test code = Glucose Lvl) 102 70-99 [facility] HospitalGsxtdvkKCBBBWUJVF6864-96-42 22:47:00 Test Item Value Reference Range Interpretation Comments WBC (test code = WBC) 8.8 3.7-10.4 [facility] HospitalKkfyjmlNWLXOGAVTB2908-69-23 22:47:00 Test Item Value Reference Range Interpretation Comments RBC (test code = RBC) 5.39 4.20-5.40 [facility] HospitalMdzvnwwWWXFDGGDOM1708-08-19 22:47:00 Test Item Value Reference Range Interpretation Comments MCV (test code = MCV) 88.0 80.0-98.0 [facility] HospitalPimpeofRFOBHYSUYI4424-23-06 22:47:00 Test Item Value Reference Range Interpretation Comments Hgb (test code = Hgb) 15.6 12.0-16.0 [place] 939296-06-19 22:47:00 Test Item Value Reference Range Interpretation Comments MCH (test code = MCH) 29.0 pg 27.0-31.0 [facility] HospitalWlpjfmzBVMKOYPBRL5495-02-13 22:47:00 Test Item Value Reference Range Interpretation Comments MPV (test code = MPV) 9.5 7.4-10.4 [facility] HospitalQlhgkglCRDMTUISYG7640-66-35 22:47:00 Test Item Value Reference Range Interpretation Comments Platelet (test code = Platelet) 242 133-450 [facility] HospitalQxdqxuuOBOTRDQWIR0533-46-84 22:47:00 Test Item Value Reference Range Interpretation Comments MCHC (test code = MCHC) 33.0 32.0-36.0 [facility] HospitalGsunvtyBALQOUXIHW2578-73-99 22:47:00 Test Item Value Reference Range Interpretation Comments RDW (test code = RDW) 13.3 11.5-14.5 [facility] HospitalUoqkpmkQJJAXGNVXP5441-94-70 22:47:00 Test Item Value Reference Range Interpretation Comments Hct (test code = Hct) 47.5 36.0-48.0 [facility] HospitalSzdttpvZHIJBSLUAK1371-87-06 22:47:00 Test Item Value Reference Range Interpretation Comments Basophils (test code = 0.5 See_Comment [Aut omated message] The Basophils) system which ge nerated this result tra nsmitted reference range : <=1.0. The reference r theron was not used to int erpret this result as normal/abnormal . [facility] HospitalGkhbzifOSHRRUJEFX5437-90-24 22:47:00 Test Item Value Reference Range Interpretation Comments Eosinophils (test code = 1.1 See_Comment [A utomated message] The Eosinophils) system which ge nerated this result tra nsmitted reference range : <=4.0. The reference r theron was not used to int erpret this result as normal/abnormal . [facility] HospitalGcotgayVKCNEBZASU4297-85-58 22:47:00 Test Item Value Reference Range Interpretation Comments Monocytes (test code = Monocytes) 6.3 2.0-12.0 [facility] HospitalLgszlcgMJTWTHTLSI1352-87-24 22:47:00 Test Item Value Reference Range Interpretation Comments Segs (test code = Segs) 54.0 45.0-75.0 [facility] HospitalGynfscoEHYDGSWQCC5295-86-98 22:47:00 Test Item Value Reference Range Interpretation Comments Lymphocytes (test code = Lymphocytes) 38.1 20.0-40.0 [facility] HospitalVznaurfJCMMXGGDXL3320-56-70 22:47:00 Test Item Value Reference Range Interpretation Comments Basophils # (test code 0.0 See_Comment [Aut omated message] The = Basophils #) system which generated this result tra nsmitted reference range : <=0.2. The reference r theron was not used to int erpret this result as normal/abnormal . [facility] HospitalDurqpebSJKHJGUAAZ7528-36-39 22:47:00 Test Item Value Reference Range Interpretation Comments Eosinophils # (test code 0.1 See_Comment [A utomated message] The = Eosinophils #) system whic h generated this result tra nsmitted reference range : <=0.5. The reference r theron was not used to int erpret this result as normal/abnormal . [facility] HospitalRkrrabbTLEYTRLGED1765-81-04 22:47:00 Test Item Value Reference Range Interpretation Comments Monocytes # (test code 0.6 See_Comment [Aut omated message] The = Monocytes #) system which generated this result tra nsmitted reference range : <=0.8. The reference r theron was not used to int erpret this result as normal/abnormal . [facility] HospitalYtcwnzjGCLPUPVNTN3589-54-36 22:47:00 Test Item Value Reference Range Interpretation Comments Lymphocytes # (test code = Lymphocytes 3.4 1.0-5.5 #) [facility] HospitalVnyuyfmOKFTLKVWAQ7640-35-50 22:47:00 Test Item Value Reference Range Interpretation Comments Segs-Bands # (test code = Segs-Bands #) 4.7 1.5-8.1 [facility] AND [id number] 22:47:00 Test Item Value Reference Range Interpretation Comments UA Mucus (test code = None Seen (09/16/15 UA Mucus) 5:47 PM) [facility] AND [id number] 22:47:00 Test Item Value Reference Range Interpretation Comments UA Bacteria (test code = UA Occasional /HPF Bacteria) [facility] AND [id number] 22:47:00 Test Item Value Reference Range Interpretation Comments UA Nitrite (test code Negative (09/16/15 5:47 = UA Nitrite) PM) [facility] AND [id number] 22:47:00 Test Item Value Reference Range Interpretation Comments UA Glucose (test code Negative (09/16/15 5:47 = [facility]A Glucose) PM) [facility] [id number] 22:47:00 Test Item Value Reference Range Interpretation Comments UA Sq Epi (test code = UA Sq Occasional /LPF Epi) [facility] [id number] 22:47:00 Test Item Value Reference Range Interpretation Comments UA WBC (test code = UA WBC) 0-2 /HPF [facility] [id number] 22:47:00 Test Item Value Reference Range Interpretation Comments UA RBC (test None Seen See_Comment [Automated mes nolan] code = UA RBC) (09/16/15 5:47 The system w hich PM) generated this result transmitted ref erence range: <=2. The reference range was not used to int erpret this result as normal/abnormal . [facility] [id number] 22:47:00 Test Item Value Reference Range Interpretation Comments Micro? (test code = Performed (09/16/15 5:47 Micro?) PM) [facility] [id number] 22:47:00 Test Item Value Reference Range Interpretation Comments UA Leuk Est (test Negative (09/16/15 5:47 code = UA Leuk Est) PM) [facility] [id number] 22:47:00 Test Item Value Reference Range Interpretation Comments UA Protein (test code Negative (09/16/15 5:47 = UA Protein) PM) [facility] [id number] 22:47:00 Test Item Value Reference Range Interpretation Comments UA pH (test code = UA pH) 6.0 1 5.0-8.0 [facility] [id number] 22:47:00 Test Item Value Reference Range Interpretation Comments UA Bili (test code = Negative *NA*(09/16/15 UA Bili) 5:47 PM) [facility] [id number] 22:47:00 Test Item Value Reference Range Interpretation Comments UA Ketones (test code Negative *NA*(09/16/15 = UA Ketones) 5:47 PM) [facility] [id number] 22:47:00 Test Item Value Reference Range Interpretation Comments UA Urobilinogen (test code = UA 0.2 0.1-1.0 Urobilinogen) [facility] [id number] 22:47:00 Test Item Value Reference Range Interpretation Comments UA Blood (test code = Trace *ABN*(09/16/15 UA Blood) 5:47 PM) [facility] AND [id number] 22:47:00 Test Item Value Reference Range Interpretation Comments UA Turbidity (test code = Clear (09/16/15 5:47 UA Turbidity) PM) [facility] AND [id number] 22:47:00 Test Item Value Reference Range Interpretation Comments UA Color (test code = Yellow *NA*(09/16/15 UA Color) 5:47 PM) [facility] AND [id number] 22:47:00 Test Item Value Reference Range Interpretation Comments UA Spec Grav (test code = UA Spec 1.025 1 Grav) [facility] AND [id number] 19:00:45 Test Item Value Reference Range Interpretation Comments UA Bacteria (test code = UA Occasional /HPF Bacteria) [facility] AND [id number] 19:00:45 Test Item Value Reference Range Interpretation Comments UA RBC (test code = 0-2 /HPF See_Comment [Automa fabi message] The UA RBC) system which ge nerated this result tra nsmitted reference range : <=2. The reference range was not used to interpr et this result as bhavya l/abnormal. [facility] AND [id number] 19:00:45 Test Item Value Reference Range Interpretation Comments UA Sq Epi (test code = UA Sq Epi) Few /LPF [facility] AND [id number] 19:00:45 Test Item Value Reference Range Interpretation Comments UA WBC (test code = UA WBC) 0-2 /HPF [facility] AND [id number] 19:00:45 Test Item Value Reference Range Interpretation Comments UA Bili (test code = Negative *NA*(11/30/13 UA Bili) 2:00 PM) [facility] AND [id number] 19:00:45 Test Item Value Reference Range Interpretation Comments UA Blood (test code = Trace *ABN*(11/30/13 UA Blood) 2:00 PM) [facility] AND [id number] 19:00:45 Test Item Value Reference Range Interpretation Comments UA Urobilinogen (test code = UA 0.2 0.1-1.0 Urobilinogen) [facility] AND [id number] 19:00:45 Test Item Value Reference Range Interpretation Comments UA pH (test code = UA pH) 6.0 1 5.0-8.0 [facility] AND [id number] 19:00:45 Test Item Value Reference Range Interpretation Comments UA Ketones (test code Negative *NA*(11/30/13 = UA Ketones) 2:00 PM) [facility] AND [id number] 19:00:45 Test Item Value Reference Range Interpretation Comments UA Protein (test code Negative (11/30/13 2:00 = UA Protein) PM) [facility] AND [id number] 19:00:45 Test Item Value Reference Range Interpretation Comments UA Glucose (test code Negative (11/30/13 2:00 = UA Glucose) PM) [facility] AND [id number] 19:00:45 Test Item Value Reference Range Interpretation Comments UA Turbidity (test code = Clear (11/30/13 2:00 UA Turbidity) PM) [facility] AND [id number] 19:00:45 Test Item Value Reference Range Interpretation Comments UA Spec Grav (test code = UA Spec 1.020 1 Grav) [facility] AND [id number] 19:00:45 Test Item Value Reference Range Interpretation Comments UA Color (test code = Yellow *NA*(11/30/13 2:00 UA Color) PM) [facility] AND [id number] 19:00:45 Test Item Value Reference Range Interpretation Comments UA Leuk Est (test Negative (11/30/13 2:00 code = UA Leuk Est) PM) [facility] AND [id number] 19:00:45 Test Item Value Reference Range Interpretation Comments UA Nitrite (test code Negative (11/30/13 2:00 = UA Nitrite) PM) [facility] H[id number] 17:35:00 Test Item Value Reference Range Interpretation Comments Eosinophils # (test code 0.0 See_Comment [A utomated message] The = Eosinophils #) system whic h generated this result tra nsmitted reference range : <=0.5. The reference r theron was not used to int erpret this result as normal/abnormal . [facility] H[id number] 17:35:00 Test Item Value Reference Range Interpretation Comments Segs-Bands # (test code = Segs-Bands #) 4.8 1.5-8.1 [facility] H[id number] 17:35:00 Test Item Value Reference Range Interpretation Comments Monocytes # (test code 0.4 See_Comment [Aut omated message] The = Monocytes #) system which generated this result tra nsmitted reference range : <=0.8. The reference r theron was not used to int erpret this result as normal/abnormal . [facility] H[id number] 17:35:00 Test Item Value Reference Range Interpretation Comments Basophils (test code = 0.5 See_Comment [Aut omated message] The Basophils) system which ge nerated this result tra nsmitted reference range : <=1.0. The reference r theron was not used to int erpret this result as normal/abnormal . [facility] H[id number] 17:35:00 Test Item Value Reference Range Interpretation Comments Basophils # (test code 0.0 See_Comment [Aut omated message] The = Basophils #) system which generated this result tra nsmitted reference range : <=0.2. The reference r theron was not used to int erpret this result as normal/abnormal . [facility] H[id number] 17:35:00 Test Item Value Reference Range Interpretation Comments Eosinophils (test code = 0.7 See_Comment [A utomated message] The Eosinophils) system which ge nerated this result tra nsmitted reference range : <=4.0. The reference r theron was not used to int erpret this result as normal/abnormal . [facility] Hospit[id number] 17:35:00 Test Item Value Reference Range Interpretation Comments Lymphocytes # (test code = Lymphocytes 1.8 1.0-5.5 #) [facility] Hospit[id number] 17:35:00 Test Item Value Reference Range Interpretation Comments Segs (test code = Segs) 67.7 45.0-75.0 [facility] Hospit[id number] 17:35:00 Test Item Value Reference Range Interpretation Comments Monocytes (test code = Monocytes) 5.7 2.0-12.[address] [facility] Hospit[id number] 17:35:00 Test Item Value Reference Range Interpretation Comments Lymphocytes (test code = Lymphocytes) 25.4 20.0-40.[address] [facility] Hospit[id number] 17:35:00 Test Item Value Reference Range Interpretation Comments CDC HIV 4th GEN (test Negative (11/30/13 12:35 code = CDC HIV 4th PM) GEN) [facility]2014-09-03 17:35:00 Test Item Value Reference Range Interpretation Comments B/C Ratio (test code = B/C Ratio) 16 6-25 [facility]2014-09-03 17:35:00 Test Item Value Reference Range Interpretation Comments AGAP (test code = AGAP) 14.0 10.0-20.0 [facility]2014-09-03 17:35:00 Test Item Value Reference Range Interpretation Comments Globulin (test code = Globulin) 3.9 2.0-4.0 [facility]2014-09-03 17:35:00 Test Item Value Reference Range Interpretation Comments A/G Ratio (test code = A/G Ratio) 1.1 0.7-1.6 [facility]2014-09-03 17:35:00 Test Item Value Reference Range Interpretation Comments eGFR (test code = eGFR) 71 [facility]2014-09-03 17:35:00 Test Item Value Reference Range Interpretation Comments ALT (test code = ALT) 31 See_Comment [Auto mated message] The system which ge nerated this result transmit fabi reference range : <=65. The reference range was not used to interpr et this result as bhavya l/abnormal. [facility]2014-09-03 17:35:00 Test Item Value Reference Range Interpretation Comments AST (test code = AST) 25 See_Comment [Auto mated message] The system which ge nerated this result transmit fabi reference range : <=37. The reference range was not used to interpr et this result as bhavya l/abnormal. [facility]2014-09-03 17:35:00 Test Item Value Reference Range Interpretation Comments Alk Phos (test code = Alk Phos) 93 39-136 [facility]2014-09-03 17:35:00 Test Item Value Reference Range Interpretation Comments Bili Total (test code = Bili Total) 0.9 0.2-1.3 [facility]2014-09-03 17:35:00 Test Item Value Reference Range Interpretation Comments Calcium Lvl (test code = Calcium Lvl) 9.5 8.5-10.5 [facility]2014-09-03 17:35:00 Test Item Value Reference Range Interpretation Comments Total Protein (test code = Total 8.0 6.4-8.4 Protein) [facility]2014-09-03 17:35:00 Test Item Value Reference Range Interpretation Comments Albumin Lvl (test code = Albumin Lvl) 4.1 3.5-5.0 [facility]2014-09-03 17:35:00 Test Item Value Reference Range Interpretation Comments CO2 (test code = CO2) 24 24-32 [facility]2014-09-03 17:35:00 Test Item Value Reference Range Interpretation Comments Chloride Lvl (test code = Chloride Lvl) 104 95-109 [facility]2014-09-03 17:35:00 Test Item Value Reference Range Interpretation Comments Creatinine Lvl (test code = Creatinine 0.9 0.5-1.4 Lvl) [facility]2014-09-03 17:35:00 Test Item Value Reference Range Interpretation Comments Sodium Lvl (test code = Sodium Lvl) 138 135-145 [facility]2014-09-03 17:35:00 Test Item Value Reference Range Interpretation Comments Potassium Lvl (test code = Potassium 4.0 3.5-5.1 Lvl) [facility]2014-09-03 17:35:00 Test Item Value Reference Range Interpretation Comments BUN (test code = BUN) 14 7-22 [facility]2014-09-03 17:35:00 Test Item Value Reference Range Interpretation Comments Glucose Lvl (test code = Glucose Lvl) 92 70-99 [facility]2014-09-03 17:35:00 Test Item Value Reference Range Interpretation Comments Lipase Lvl (test code = Lipase Lvl) 147 73-393 [facility]2014-09-03 17:35:00 Test Item Value Reference Range Interpretation Comments Amylase Lvl (test code = Amylase Lvl) 35 25-115 [facility] Hospit[id number] 17:35:00 Test Item Value Reference Range Interpretation Comments MCHC (test code = MCHC) 34.0 32.0-36.0 [facility] HospitalTieokmhKMPDYBIPFL1079-69-80 17:35:00 Test Item Value Reference Range Interpretation Comments RDW (test code = RDW) 12.7 11.5-14.5 [facility] Ho[id number] 17:35:00 Test Item Value Reference Range Interpretation Comments Platelet (test code = Platelet) 236 133-450 [facility] Ho[id number] 17:35:00 Test Item Value Reference Range Interpretation Comments MPV (test code = MPV) 9.6 7.4-10.4 [facility] Hospit[id number] 17:35:00 Test Item Value Reference Range Interpretation Comments Hgb (test code = Hgb) 16.9 12.0-16.0 [facility] Hospit[id number] 17:35:00 Test Item Value Reference Range Interpretation Comments WBC (test code = WBC) 7.1 3.7-10.4 [facility] HospitalCcrerrkOWBAPVDIWZ8029-58-14 17:35:00 Test Item Value Reference Range Interpretation Comments RBC (test code = RBC) 5.64 4.20-5.40 [facility] HospitalWqaputaEUXQOQVTXE6732-12-61 17:35:00 Test Item Value Reference Range Interpretation Comments Hct (test code = Hct) 49.7 36.0-48.0 [facility] HospitalAfgjeywYMBQFXCEWR0809-26-45 17:35:00 Test Item Value Reference Range Interpretation Comments MCH (test code = MCH) 29.9 pg 27.0-31.0 [facility] H[id number] 17:35:00 Test Item Value Reference Range Interpretation Comments MCV (test code = MCV) 88.0 80.0-98.[address] [facility]
[2023-01-11] MEDS ORDERED: NA CHLORIDE 0.9% 1,000 ML ONE (09:15)
[2023-01-11 09:32] LABS: Absolute Lymphocytes (CBC) 1.4 K/uL (0.7-4.9); Hematocrit 50.4 % (36.0-45.0); Lymphocytes % 25.5 % (15.3-44.8); MCV 89.3 fL (80-100); Platelets 172 thou/uL (152-406); RBC Red Blood Cell Count 5.64 M/uL (3.86-4.86)
[2023-01-11 09:43] LABS: Specific Gravity 1.019 (1.005-1.030); Urine Bacteria None Seen /HPF (<20); Urine Bilirubin NEGATIVE (Negative); Urine Blood 1+ (Negative); Urine Clarity Turbid (Clear); Urine Color Yellow (Yellow); Urine Glucose NEGATIVE (Negative); Urine Mucus Slight /HPF (None Seen); Urine Protein NEGATIVE (Negative); Urine Urobilinogen Normal (Normal)
[2023-01-11 09:48] LABS: Albumin 3.9 g/dL (3.4-5.0); Bilirubin Total 1.2 mg/dL (0.2-1.0); Potassium 3.4 mEq/L (3.5-5.1); Protein, Total 7.3 g/dL (6.4-8.2)
[2023-01-11] MEDS ORDERED: ONDANSETRON 4 MG/2 ML VIAL ONE (10:47)
--- NOTE | 2023-01-11 11:04 | ER ---
Nurse's Notes [facility] Name: Tracey Rodriguez Age: 67 yrs Sex: Female : 1955 Arrival Date: 01/11/2023 Time: 08:45 Bed 14 Private MD: Diagnosis: Dehydration Presentation: 01/11 09:10 Chief complaint: Nausea and generalized weakness x 3 days. Coronavirus screen: At this hb time, the client does not indicate any symptoms associated with coronavirus-19. Ebola Screen: No symptoms or risks identified at this time. Initial Sepsis Screen: Does the patient meet any 2 criteria? No. Patient's initial sepsis screen is negative. Does the patient have a suspected source of infection? No. Patient's initial sepsis screen is negative. Risk Assessment: Do you want to hurt yourself or someone else? Patient reports no desire to harm self or others. Onset of symptoms was January 08, 2023. 09:10 Method Of Arrival: Ambulatory hb 09:10 Acuity: ANUJA 3 hb Historical: - Allergies: 09:27 anti-inflammatory (all); hb 09:27 Ciprofloxacin; hb 09:27 fluoroquinolones; hb 09:27 Levaquin; hb 09:27 Sulfa (Sulfonamide Antibiotics); hb - PMHx: 09:27 ULCER; Diverticulitis; hb - Immunization history:: Adult Immunizations up to date. - Social history:: Smoking status: Patient denies any tobacco usage or history of. Screenin:20 [facility] ED Fall Risk Assessment (Adult) History of falling in the last 3 months, ap3 including since admission No falls in past 3 months (0 pts). Abuse screen: Denies threats or abuse. Nutritional screening: No deficits noted. Tuberculosis screening: No symptoms or risk factors identified. Assessment: 11:20 General: Appears in no apparent distress. Behavior is calm, cooperative, appropriate ap3 for age. Pain: Denies pain. Neuro: Level of Consciousness is awake, alert, obeys commands, Oriented to person, place, time, situation. Cardiovascular: Patient's skin is warm and dry. Respiratory: Airway is patent Respiratory effort is even, unlabored. GI: Bowel sounds present X 4 quads. Abd is soft and non tender Reports nausea. Vital Signs: 09:10 BP 126 / 64; Pulse 65; Resp 16; Temp 98(TE); Pulse Ox 100% on R/A; Weight 73.03 kg; hb Height 5 ft. 2 in. ; Pain 2/10; 11:17 BP 130 / 74; Pulse 63; Pulse Ox 99% on R/A; ap3 09:10 Body Mass Index 29.45 (73.03 kg, 157.48 cm) hb 09:10 Pain Scale: Adult hb ED Course: 08:48 Patient arrived in ED. im 08:49 Brigitte Wilkinson [facility]-C [facility] kb 08:49 Luis Angel Mercado MD is Attending Physician. kb 09:16 Inserted saline lock: 20 gauge in right antecubital area, using aseptic technique. hb Blood collected. 09:27 Triage completed. hb 09:27 Arm band placed on. hb 09:28 Urinalysis w/ reflexes Sent. hb 09:28 CBC with Diff Sent. hb 09:28 Lipase Sent. hb 09:28 CMP Sent. hb 10:32 Dorcas Montgomery, DOLORES is Primary Nurse. ap3 11:20 Patient has correct armband on for positive identification. Bed in low position. Call ap3 light in reach. Side rails up X 1. Adult w/ patient. Pulse ox on. NIBP on. 11:20 No provider procedures requiring assistance completed. ap3 11:37 Provided Education on: discharge instructions. ap3 11:37 IV discontinued, intact, bleeding controlled, No redness/swelling at site. Pressure ap3 dressing applied. Administered Medications: 09:28 Drug: NS 0.9% IV 1000 ml IV at 1 bolus Per protocol; 1000 mL bolus Route: IV; Rate: 1 hb bolus; Site: right antecubital; 11:21 Follow up: IV Status: Completed infusion ap3 10:39 Drug: Ondansetron IVP 4 mg IVP once; over 2 minutes Route: IVP; Site: right antecubital;ap3 11:21 Follow up: Response: No adverse reaction ap3 Medication: 11:21 VIS not applicable for this client. ap3 Outcome: 11:04 Discharge ordered by . kb 11:37 Discharged to home ambulatory, ap3 11:37 Condition: good 11:37 Discharge instructions given to patient, Instructed on discharge instructions, follow up and referral plans. medication usage, Demonstrated understanding of instructions, follow-up care, medications, 11:38 Patient left the ED. ap3 Signatures: Brigitte Wilkinson, LIANNE-C LIANNE-Melissa Malik, RN RN hb Dorcas Montgomery RN RN ap3 Vidhya Lima
--- NOTE | 2023-01-11 11:04 | EDPHYS ---
Physician Documentation [facility] Name: Tracey Rodriguez Age: 67 yrs Sex: Female : 1955 Arrival Date: 01/11/2023 Time: 08:45 Bed 14 Private MD: ED Physician Luis Angel Mercado HPI: 01/11 11:37 This 67 yrs old Female presents to ER via Ambulatory with complaints of General kb Weakness, Abdominal Pain, Nausea, Vomiting. 11:37 Pt reports she has been on a medication for bacteria in her duodenum. States the kb medication has been making her constipated so yesterday she did a suppository. States she gets diarrhea after using suppositories so now she feels dehydrated. Came in today to get fluids. Denies fever, abd pain. Also reports she has been suffering from depression for quite some time and it is getting worse. 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 Denies SI or HI. Onset: The symptoms/episode began/occurred yesterday. Severity of symptoms: At their worst the symptoms were moderate in the emergency department the symptoms are unchanged. The patient has not experienced similar symptoms in the past. The patient has not recently seen a physician. Historical: - Allergies: 09:27 anti-inflammatory (all); hb 09:27 Ciprofloxacin; hb 09:27 fluoroquinolones; hb 09:27 Levaquin; hb 09:27 Sulfa (Sulfonamide Antibiotics); hb - PMHx: 09:27 ULCER; Diverticulitis; hb - Immunization history:: Adult Immunizations up to date. - Social history:: Smoking status: Patient denies any tobacco usage or history of. ROS: 11:34 Constitutional: Negative for fever, chills, and weight loss, kb 11:34 Abdomen/GI: Positive for nausea, diarrhea, 11:34 Psych: Positive for depression, 11:34 All other systems are negative, Exam: 11:51 Constitutional: This is a well developed, well nourished patient who is awake, alert, kb and in no acute distress. Head/Face: Normocephalic, atraumatic. ENT: Moist Mucous membranes Cardiovascular: Regular rate Respiratory: Respirations even and unlabored. No increased work of breathing. Talking in full sentences Abdomen/GI: Soft, non-tender. No distention Skin: Warm, dry with normal turgor. Normal color. MS/ Extremity: Pulses equal, no cyanosis. Neurovascular intact. Full, normal range of motion. Neuro: Awake and alert, GCS 15, oriented to person, place, time, and situation. Moves all extremities. Normal gait. Psych: Awake, alert, with orientation to person, place and time. Behavior, mood, and affect are within normal limits. Vital Signs: 09:10 BP 126 / 64; Pulse 65; Resp 16; Temp 98(TE); Pulse Ox 100% on R/A; Weight 73.03 kg; hb Height 5 ft. 2 in. ; Pain 2/10; 11:17 BP 130 / 74; Pulse 63; Pulse Ox 99% on R/A; ap3 09:10 Body Mass Index 29.45 (73.03 kg, 157.48 cm) hb 09:10 Pain Scale: Adult hb MDM: 08:49 Patient medically screened. kb 11:34 Data reviewed: vital signs, nurses notes. kb 11:51 Differential Diagnosis dehydration, electrolyte abnormality, acute stress reaction, kb depression. Test considered but Not performed: CT: CT considered, but pt is nontoxic in appearance, tolerating po intake, afebrile, normal wbc, no abd tenderness. Counseling: I had a detailed discussion with the patient and/or guardian regarding the historical points, exam findings, and any diagnostic results supporting the discharge/admit diagnosis, lab results, the need for outpatient follow up, a family practitioner, to return to the emergency department if symptoms worsen or persist or if there are any questions or concerns that arise at home. ED course: Discussed need for follow up with psych for treatment of depression. Discussed other options for care for to explore. Pt in agreement. Pt denies suicidal thoughts. . 01/11 09:00 Order name: CBC with Diff; Complete Time: 09:34 kb 01/11 09:00 Order name: CMP; Complete Time: 09:51 kb 01/11 09:00 Order name: Lipase; Complete Time: :51 kb 01/11 09:00 Order name: Urinalysis w/ reflexes; Complete Time: 09:44 kb 01/11 09:00 Order name: IV Saline Lock; Complete Time: :28 kb 01/11 09:00 Order name: Labs collected and sent; Complete Time: :28 kb 01/11 10:59 Order name: PO challenge; Complete Time: 11:21 kb Administered Medications: :28 Drug: NS 0.9% IV 1000 ml IV at 1 bolus Per protocol; 1000 mL bolus Route: IV; Rate: 1 hb bolus; Site: right antecubital; 11:21 Follow up: IV Status: Completed infusion ap3 10:39 Drug: Ondansetron IVP 4 mg IVP once; over 2 minutes Route: IVP; Site: right antecubital;ap3 11:21 Follow up: Response: No adverse reaction ap3 Disposition: 14:47 Co-signature as Attending Physician, Luis Angel Mercado MD. ec2 Disposition Summary: 01/11/23 11:04 Discharge Ordered Notes: Location: Home kb Condition: Stable kb Diagnosis - Dehydration kb Followup: kb - With: Emergency Department - When: As needed - Reason: Worsening of condition Followup: kb - With: Private Physician - When: 2 - 3 days - Reason: Recheck today's complaints, Continuance of care, Re-evaluation by your physician Discharge Instructions: - Discharge Summary Sheet kb - Dehydration, Adult kb Forms: - Medication Reconciliation Form kb - Thank You Letter kb - Antibiotic Education kb - Prescription Opioid Use kb - Patient Portal Instructions kb - Leadership Thank You Letter kb Prescriptions: - ondansetron 4 mg Oral Tablet,disintegrating - take 1 tablet ORAL route every 6 hours As needed; 12 tablet; Refills: 0, kb Product Selection Permitted Signatures: Dispatcher [employer] Brigitte Vaca, ERICKSON ABDALLA-Melissa Malik, RN Dorcas Ag RN RN ap3 Luis Angel Mercado MD MD ec2
[2023-01-11 11:55] VITALS: TEMP 98
[2023-01-11 12:00] VITALS: BP 130/74; O2SAT 99
== END 2023-01-11 11:38 | disposition home or self-care (01) ==
LOC: ER 08:45
DX: E86.0 Dehydration (principal); R11.0 Nausea; R19.7 Diarrhea, unspecified; Z88.1 Allergy status to other antibiotic agents; Z88.2 Allergy status to sulfonamides; Z88.8 Allergy status to other drugs, medicaments and biological substances; Z91.048 Other nonmedicinal substance allergy status
CPT/HCPCS: 96361; 85025; 81001; 36415; 83690; 80053; 96374; 99284; J2405; J7030

== ENCOUNTER → 2023-05-17 | Emergency (ER) | payer OTHER ==
[~2023-05-17] MED LIST: KETOROLAC 30 MG/ML INJ ONE; NA CHLORIDE 0.9% 1,000 ML ONE; ONDANSETRON 4 MG/2 ML VIAL ONE
[2023-05-17 09:38] LABS: Absolute Lymphocytes (CBC) 1.5 K/uL (0.7-4.9); MCV 89.4 fL (80-100); MPV 8.7 fL (7.6-11.3); Platelets 217 thou/uL (152-406); RBC Red Blood Cell Count 5.48 M/uL (3.86-4.86)
[2023-05-17 09:55] LABS: Specific Gravity 1.007 (1.005-1.030); Urine Bacteria <20 /HPF (<20); Urine Bilirubin NEGATIVE (Negative); Urine Blood Negative (Negative); Urine Clarity Clear (Clear); Urine Color Light-Yellow (Yellow); Urine Glucose NEGATIVE (Negative); Urine Protein NEGATIVE (Negative); Urine RBC <5 /HPF (None Seen); Urine Urobilinogen Normal (Normal); Urine pH 6.5 (5.0-7.0)
[2023-05-17 09:56] LABS: Albumin 3.6 g/dL (3.4-5.0); Potassium 3.9 mEq/L (3.5-5.1); Protein, Total 7.1 g/dL (6.4-8.2)
--- NOTE | 2023-05-17 10:34 | RAD REPORT ---
EXAM DESCRIPTION: CTAbdomen Pelvis W Contrast - 05/17/2023 10:24 am CLINICAL HISTORY: ABD PAIN COMPARISON: Abdomen Pelvis W Contrast dated 10/26/2022; Abdomen Pelvis W Contrast dated ; Abdomen Pelvis W Contrast dated 01/03/2022; Abdomen Pelvis W Contrast dated 07/25/2020 TECHNIQUE: CT of the abdomen and pelvis was performed. All CT scans are performed using dose optimization technique as appropriate and may include automated exposure control or mA/KV adjustment according to patient size. FINDINGS: Lower chest: No acute abnormality. Liver: Benign low-density liver lesions are unchanged. Biliary: Cholecystectomy. Stomach: No significant focal abnormality. Duodenum: No significant focal abnormality. Pancreas: No significant abnormality. Spleen: No significant abnormality. Adrenal: No suspicious lesions. Kidney/ureter: No hydronephrosis. No renal calculi. Bilateral renal sinus and cortical cysts. Bilater al ureteral fullness is similar. Retroperitoneum: No retroperitoneal adenopathy. Vascular: No aneurysm. Atherosclerosis . Bowel: Diverticulosis without diverticulitis . Normal appendix.. Peritoneum: No ascites or free air. Bladder: Grossly unremarkable. Reproductive: No adnexal masses. Bones: No acute fracture. Anterolisthesis of L4 on L5 and L5 on S1. Other: n/a IMPRESSION: No acute intra-abdominal or pelvic finding. Normal appendix. Incidental findings as note d above.
--- NOTE | 2023-05-17 10:53 | ER ---
Nurse's Notes [facility] Name: Tracey Rodriguez Age: 67 yrs Sex: Female : 1955 Arrival Date: 05/17/2023 Time: 09:01 Bed 7 Private MD: Diagnosis: Lower abdominal pain, unspecified;Dehydration Presentation: 05/17 09:20 Chief complaint: Nausea, decreased intake, left side abdominal pain, and muscle cramps hb x 3 weeks. Coronavirus screen: At this time, the client does not indicate any symptoms associated with coronavirus-19. Ebola Screen: No symptoms or risks identified at this time. Initial Sepsis Screen: Does the patient meet any 2 criteria? No. Patient's initial sepsis screen is negative. Does the patient have a suspected source of infection? No. Patient's initial sepsis screen is negative. Risk Assessment: Do you want to hurt yourself or someone else? Patient reports no desire to harm self or others. Onset of symptoms was March 2023. 09:20 Method Of Arrival: Ambulatory hb 09:20 Acuity: ANUJA 3 hb Historical: - Allergies: 09:22 anti-inflammatory (all); hb 09:22 Ciprofloxacin; hb 09:22 fluoroquinolones; hb 09:22 Levaquin; hb 09:22 Sulfa (Sulfonamide Antibiotics); hb - PMHx: 09:22 Diverticulitis; ULCER; hb - PSHx: 09:22 carpal tunnal repair; Colectomy; Ligation of fallopian tube; hb Screenin:30 [facility] ED Fall Risk Assessment (Adult) History of falling in the last 3 months, aa5 including since admission No falls in past 3 months (0 pts) Confusion or Disorientation No (0 pts) Intoxicated or Sedated No (0 pts) Impaired Gait No (0 pts) Mobility Assist Device Used No (0 pt) Altered Elimination No (0 pt) Score/Fall Risk Level 0 - 2 = Low Risk Oriented to surroundings, Maintained a safe environment, Educated pt \T\ family on fall prevention, incl call for assistance when getting out of bed. Abuse screen: Denies threats or abuse. Nutritional screening: No deficits noted. Tuberculosis screening: No symptoms or risk factors identified. Assessment: 09:20 General: Appears comfortable, Behavior is calm, cooperative. Pain: Complains of pain in aa5 left lower quadrant Pain currently is 5 out of 10 on a pain scale. Quality of pain is described as crampy, Pain began 5 days ago. Neuro: Level of Consciousness is awake, alert, obeys commands, Oriented to person, place, time, situation. Cardiovascular: Patient's skin is warm and dry. Respiratory: Airway is patent Respiratory effort is even, unlabored, Respiratory pattern is regular, symmetrical. GI: Abdomen is round non-distended, Bowel sounds present X 4 quads. Abd is soft and non tender X 4 quads. Reports nausea, decreased appetite Patient currently denies vomiting. : No signs and/or symptoms were reported regarding the genitourinary system. EENT: No signs and/or symptoms were reported regarding the EENT system. Derm: Skin is pink, warm \T\ dry. Musculoskeletal: Range of motion: intact in all extremities, Reports muscle spasms all over intermittently. 11:00 Reassessment: Patient appears in no apparent distress at this time. Patient and/or iw family updated on plan of care and expected duration. Pain level reassessed. dispo pending fluid completion. Vital Signs: 09:20 BP 142 / 78; Pulse 73; Resp 16; Temp 98.1(TE); Pulse Ox 99% on R/A; Weight 77.11 kg; hb Height 5 ft. 2 in. ; Pain 5/10; 11:24 BP 138 / 75; Pulse 79; Resp 16; Pulse Ox 98% on R/A; iw 09:20 Body Mass Index 31.09 (77.11 kg, 157.48 cm) hb 09:20 Pain Scale: Adult hb ED Course: 09:03 Patient arrived in ED. ra3 09:09 Brigitte Wilkinson FNP-C is PHCP. kb 09:09 Dony Wilkes MD is Attending Physician. kb 09:20 Patient has correct armband on for positive identification. Bed in low position. Call aa5 light in reach. Side rails up X 1. Adult w/ patient. 09:22 Triage completed. hb 09:36 Magnesium Sent. em1 09:36 CBC with Diff Sent. em1 09:36 CMP Sent. em1 09:36 Lipase Sent. em1 09:36 Initial lab(s) drawn, by me, sent to lab. Inserted saline lock: 20 gauge in right em1 antecubital area, using aseptic technique. Blood collected. 09:48 Lia Wade, RN is Primary Nurse. aa5 10:26 CT Abd/Pelvis - IV Contrast Only In Process Unspecified. EDMS 11:24 No provider procedures requiring assistance completed. IV discontinued, intact, iw bleeding controlled, No redness/swelling at site. Pressure dressing applied. Administered Medications: :55 Drug: NS 0.9% IV 1000 ml IV at 1 bolus Per protocol; 1000 mL bolus Route: IV; Rate: 1 aa5 bolus; Site: right antecubital; :55 Drug: Ondansetron IVP 4 mg IVP once; over 2 minutes Route: IVP; Site: right antecubital;aa5 09:56 CANCELLED (Other Intervention Used): TORadol - vwtugnned23 mg IVP once kb Outcome: 10:52 Discharge ordered by MD. kb 11:25 Discharged to home ambulatory, with family, iw 11:25 Condition: good 11:25 Discharge instructions given to patient, Instructed on discharge instructions, follow up and referral plans. medication usage, Demonstrated understanding of instructions, follow-up care, medications, Prescriptions given X 1, 11:25 Patient left the ED. iw Signatures: Dispatcher [employer] EDMS Brigitte Wilkinson, SENIOR SCIENTIST-C SENIOR SCIENTIST-Ckb Tracee Mena, RN RN iw Awais Vazquez em1 Lia Wade, RN RN aa5 Melissa Krishnamurthy, DOLORES RN Ashlyn Chamberlain 3
--- NOTE | 2023-05-17 10:53 | EDPHYS ---
Physician Documentation [facility] Name: Tracey Rodriguez Age: 67 yrs Sex: Female : 1955 Arrival Date: 05/17/2023 Time: 09: Bed 7 Private MD: ED Physician Dony Wilkes HPI: 05/17 09:20 This 67 yrs old Female presents to ER via Unassigned with complaints of Decreased kb Appetite, Nausea, Muscle spasms. 09:20 Pt is a 67 year old female who presents for LLQ pain for 5 days, nausea and decreased kb appetite for 2 weeks, and muscle spasms for 3 weeks. Denies fever, chills, diarrhea. . Historical: - Allergies: 09:22 anti-inflammatory (all); hb 09:22 Ciprofloxacin; hb 09:22 fluoroquinolones; hb 09:22 Levaquin; hb 09:22 Sulfa (Sulfonamide Antibiotics); hb - PMHx: 09:22 Diverticulitis; ULCER; hb - PSHx: 09:22 carpal tunnal repair; Colectomy; Ligation of fallopian tube; hb ROS: 09:19 Constitutional: Negative for fever, chills, and weight loss, kb 09:19 Abdomen/GI: Positive for abdominal pain, nausea, Negative for vomiting, diarrhea, 09:19 All other systems are negative, Exam: 09:20 Constitutional: This is a well developed, well nourished patient who is awake, alert, kb and in no acute distress. Head/Face: Normocephalic, atraumatic. ENT: Moist Mucous membranes Cardiovascular: Regular rate Respiratory: Respirations even and unlabored. No increased work of breathing. Talking in full sentences Skin: Warm, dry with normal turgor. Normal color. MS/ Extremity: Pulses equal, no cyanosis. Neurovascular intact. Full, normal range of motion. Neuro: Awake and alert, GCS 15, oriented to person, place, time, and situation. Moves all extremities. Normal gait. 09:20 Abdomen/GI: Inspection: abdomen appears normal, Bowel sounds: normal, in all quadrants, Palpation: soft, in all quadrants, mild abdominal tenderness, in the left lower quadrant, Vital Signs: 09:20 BP 142 / 78; Pulse 73; Resp 16; Temp 98.1(TE); Pulse Ox 99% on R/A; Weight 77.11 kg; hb Height 5 ft. 2 in. ; Pain 5/10; 11:24 BP 138 / 75; Pulse 79; Resp 16; Pulse Ox 98% on R/A; iw 09:20 Body Mass Index 31.09 (77.11 kg, 157.48 cm) hb 09:20 Pain Scale: Adult hb MDM: 09:09 Patient medically screened. kb 09:20 Data reviewed: vital signs, nurses notes. kb 09:21 Differential diagnosis: diverticulitis, non-specific abd pain, dehydration, abnormal kb electrolytes. 10:51 I considered the following discharge prescriptions or medication management in the emergency department I discussed and recommended Over The Counter medications, Antibiotics: At this time antibiotics are not recommended. Counseling: I had a detailed discussion with the patient and/or guardian regarding the historical points, exam findings, and any diagnostic results supporting the discharge/admit diagnosis, lab results, radiology results, the need for outpatient follow up, a family practitioner, to return to the emergency department if symptoms worsen or persist or if there are any questions or concerns that arise at home. 05/17 09:20 Order name: CBC with Diff; Complete Time: 09:42 kb 05/17 09:20 Order name: CMP; Complete Time: 10:03 kb 05/17 09:20 Order name: Lipase; Complete Time: 10:03 kb 05/17 09:20 Order name: Magnesium; Complete Time: 10:03 kb 05/17 09:22 Order name: Urinalysis w/ reflexes; Complete Time: 09:55 kb 05/17 09:20 Order name: CT Abd/Pelvis - IV Contrast Only; Complete Time: 10:36 kb 05/17 09:20 Order name: IV Saline Lock; Complete Time: 09:35 kb 05/17 09:20 Order name: Labs collected and sent; Complete Time: 09:36 kb Administered Medications: 09:55 Drug: NS 0.9% IV 1000 ml IV at 1 bolus Per protocol; 1000 mL bolus Route: IV; Rate: 1 aa5 bolus; Site: right antecubital; 09:55 Drug: Ondansetron IVP 4 mg IVP once; over 2 minutes Route: IVP; Site: right antecubital;aa5 09:56 CANCELLED (Other Intervention Used): TORadol - [id number] mg IVP once kb Disposition: 11:39 Co-signature as Attending Physician, Dony Wilkes MD I reviewed the patient's care rt provided by the Advanced Practice Provider and agree with the diagnosis and treatment plan. Disposition Summary: 05/17/23 10:52 Discharge Ordered Notes: Location: Home kb Condition: Stable kb Diagnosis - Lower abdominal pain, unspecified kb - Dehydration kb Followup: kb - With: Emergency Department - When: As needed - Reason: Worsening of condition Followup: kb - With: Private Physician - When: 2 - 3 days - Reason: Recheck today's complaints, Continuance of care, Re-evaluation by your physician Discharge Instructions: - Discharge Summary Sheet kb - Dehydration, Adult kb - Abdominal Pain, Adult, [id number] kb Forms: - Medication Reconciliation Form kb - Thank You Letter kb - Antibiotic Education kb - Prescription Opioid Use kb - Patient Portal Instructions kb - Leadership Thank You Letter kb Prescriptions: - Zofran 4 mg Oral tablet - take 1 tablet ORAL route every 6 hours As needed; 12 tablet; Refills: 0, kb Product Selection Permitted Signatures: Dispatcher [employer] EDMS Brigitte Wilkinson, LIANNE-C DATA SUPPORT SPECIALIST-Lia Mckeon, RN RN aa5 Melissa Krishnamurthy, RN RN Dony Wilkes MD MD rt Corrections: (The following items were deleted from the chart) 09:56 09:20 TORadol - Ketorolac IVP 15 mg IVP once ordered. kb kb :56 09:55 TORadol - Ketorolac IVP 15 mg IVP once ordered. kb kb
[2023-05-17 11:33] VITALS: BP 138/75; TEMP 98.1; O2SAT 98
== END ==
LOC: ER 09:01
DX: R10.32 Left lower quadrant pain (principal); E86.0 Dehydration; R11.0 Nausea; Z88.1 Allergy status to other antibiotic agents; Z88.2 Allergy status to sulfonamides; Z88.3 Allergy status to other anti-infective agents; Z88.5 Allergy status to narcotic agent; Z88.8 Allergy status to other drugs, medicaments and biological substances
CPT/HCPCS: 85025; 81001; 36415; 83735; 83690; 80053; 74177; Q9967; J2405; J7030

== ENCOUNTER → 2023-05-23 | Emergency (ER) | payer OTHER ==
[~2023-05-23] MED LIST changes: +FAMOTIDINE 20 MG/2 ML VIAL IV ONE; -KETOROLAC 30 MG/ML INJ ONE
[2023-05-23 15:29] LABS: Hematocrit 48.3 % (36.0-45.0); Lymphocytes % 30.3 % (15.3-44.8); MCV 89.5 fL (80-100); MPV 8.6 fL (7.6-11.3); Platelets 229 thou/uL (152-406); RBC Red Blood Cell Count 5.39 M/uL (3.86-4.86)
[2023-05-23 15:32] LABS: Specific Gravity 1.005 (1.005-1.030); Urine Bacteria None Seen /HPF (<20); Urine Bilirubin NEGATIVE (Negative); Urine Blood Negative (Negative); Urine Clarity Clear (Clear); Urine Color Colorless (Yellow); Urine Glucose NEGATIVE (Negative); Urine Protein NEGATIVE (Negative); Urine RBC <5 /HPF (None Seen); Urine Urobilinogen Normal (Normal)
[2023-05-23 15:49] LABS: Bilirubin Total 0.9 mg/dL (0.2-1.0); Potassium 3.9 mEq/L (3.5-5.1); Protein, Total 7.8 g/dL (6.4-8.2)
--- NOTE | 2023-05-23 15:59 | ER ---
Nurse's Notes [facility] Name: Tracey Rodriguez Age: 67 yrs Sex: Female : 1955 Arrival Date: 05/23/2023 Time: 14:34 Bed 5 Private MD: Diagnosis: Dehydration Presentation: 05/23 14:43 Chief complaint: Patient states: She is dehydrated and is having urinary symptoms. cm10 Coronavirus screen: Vaccine status: Patient reports being unvaccinated. Client denies travel out of the [place] in the last 14 days. Ebola Screen: Patient denies travel to an Ebola-affected area in the 21 days before illness onset. No symptoms or risks identified at this time. Initial Sepsis Screen: Does the patient meet any 2 criteria? No. Patient's initial sepsis screen is negative. Does the patient have a suspected source of infection? No. Patient's initial sepsis screen is negative. Risk Assessment: Do you want to hurt yourself or someone else? Patient reports no desire to harm self or others. Onset of symptoms was May 23, 2023. 14:43 Method Of Arrival: Ambulatory 10 14:43 Acuity: ANUJA 3 cm10 Historical: - Allergies: 14:46 anti-inflammatory (all); cm10 14:46 Ciprofloxacin; cm10 14:46 fluoroquinolones; cm10 14:46 Levaquin; cm10 14:46 Sulfa (Sulfonamide Antibiotics); cm10 - PMHx: 14:46 Diverticulitis; ULCER; cm10 - PSHx: 14:46 carpal tunnal repair; Colectomy; Ligation of fallopian tube; cm10 - Immunization history:: Adult Immunizations up to date. - Social history:: Smoking status: Patient denies any tobacco usage or history of. Screenin:51 [facility] ED Fall Risk Assessment (Adult) History of falling in the last 3 months, aa5 including since admission No falls in past 3 months (0 pts) Confusion or Disorientation No (0 pts) Intoxicated or Sedated No (0 pts) Impaired Gait No (0 pts) Mobility Assist Device Used No (0 pt) Altered Elimination No (0 pt) Score/Fall Risk Level 0 - 2 = Low Risk Oriented to surroundings, Maintained a safe environment, Educated pt \\T\\ family on fall prevention, incl call for assistance when getting out of bed. Abuse screen: Denies threats or abuse. Nutritional screening: No deficits noted. Tuberculosis screening: No symptoms or risk factors identified. Assessment: 14:50 General: Appears comfortable, Behavior is calm, cooperative. Pain: Complains of pain in aa5 epigastric area Pain currently is 5 out of 10 on a pain scale. Quality of pain is described as burning, Pt states "I've had H. pylori before and that's what it feels like" Is intermittent. Neuro: Level of Consciousness is awake, alert, obeys commands, Oriented to person, place, time, situation. Cardiovascular: Heart tones S1 S2 present Rhythm is regular. Respiratory: Airway is patent Respiratory effort is even, unlabored, Respiratory pattern is regular, symmetrical. GI: Abdomen is round non-distended, Bowel sounds present X 4 quads. Abd is soft and non tender X 4 quads. Reports indigestion, nausea. : Reports Pt states "It stings when I pee but only a little bit". EENT: No signs and/or symptoms were reported regarding the EENT system. Derm: Skin is pink, warm \\T\\ dry. Musculoskeletal: Range of motion: intact in all extremities. 16:20 Reassessment: Patient is alert, oriented x 3, equal unlabored respirations, skin aa5 warm/dry/pink. Vital Signs: 14:43 BP 133 / 65; Pulse 87; Resp 16; Temp 97.2; Pulse Ox 100% on R/A; Weight 72.57 kg; cm10 Height 5 ft. 3 in. ; Pain 5/10; 16:20 BP 128 / 65; Pulse 85; Resp 17 S; Pulse Ox 100% on R/A; aa5 14:43 Body Mass Index 28.34 (72.57 kg, 160.02 cm) cm10 14:43 Pain Scale: Adult cm10 ED Course: 14:37 Patient arrived in ED. ra3 14:40 [facility]aked[facility]atum [facility] 7 14:41 Osvaldo Carpenter MD is Attending Physician. 7 14:45 Triage completed. cm10 14:46 Arm band placed on Patient placed in an exam room, on a stretcher. cm10 14:50 Patient has correct armband on for positive identification. Bed in low position. Call aa5 light in reach. Side rails up X 1. 14:50 Pulse ox on. NIBP on. aa5 15:05 Lia Wade, RN is Primary Nurse. aa5 15:23 Urinalysis W/Microscopic Sent. 16:20 No provider procedures requiring assistance completed. IV discontinued, intact, aa5 bleeding controlled, No redness/swelling at site. Pressure dressing applied. Administered Medications: 15:30 Drug: Ondansetron IVP 4 mg IVP once; over 2 minutes Route: IVP; Site: right antecubital;aa5 16:20 Follow up: Response: No adverse reaction aa5 15:30 Drug: Famotidine IVP 20 mg IVP once; dilute with 10 mL 0.9% NaCl; give over 2 minutes aa5 Route: IVP; Site: right antecubital; 16:20 Follow up: Response: No adverse reaction aa5 15:36 Drug: NS 0.9% IV 1000 ml IV at 1 bolus Per protocol; 1000 mL bolus Route: IV; Rate: 1 aa5 bolus; Site: right antecubital; 16:20 Follow up: IV Status: Completed infusion; IV Intake: 1000ml aa5 Medication: 16:20 VIS not applicable for this client. aa5 Intake: 16:20 IV: 1000ml; Total: 1000ml. aa5 Outcome: 15:58 Discharge ordered by . justino 16:20 Discharged to home ambulatory, with significant other, aa5 16:20 Condition: stable 16:20 Discharge instructions given to patient, Instructed on discharge instructions, follow up and referral plans. Demonstrated understanding of instructions, follow-up care, 16:28 Patient left the ED. aa5 Signatures: Lia Wade, RN RN aa5 Melissa Krishnamurthy, RN RN Makeda Tatum, GANDY DANCER GANDY DANCER Kelly Plunkett, RN RN cm10 Ashlyn Tejeda 3
--- NOTE | 2023-05-23 15:59 | EDPHYS ---
Physician Documentation [facility] Name: Tracey Rodriguez Age: 67 yrs Sex: Female : 1955 Arrival Date: 05/23/2023 Time: 14:34 Bed 5 Private MD: ED Physician Osvaldo Carpenter HPI: 05/23 14:46 This 67 yrs old Female presents to ER via Ambulatory with complaints of Urinary Problem.jh7 14:46 Onset: The symptoms/episode began/occurred 2 day(s) ago. Associated signs and symptoms: jh7 Pertinent positives: dysuria, Pertinent negatives: abdominal pain, shortness of breath, vomiting. Patient reports urinary symptoms and feeling dehydrated for the past 2 days. Reports that she is currently on Xifaxan for treatment of a bacterial infection in her duodenum. Denies nausea and vomiting. Reports a history of UTIs.. Historical: - Allergies: 14:46 anti-inflammatory (all); cm10 14:46 Ciprofloxacin; cm10 14:46 fluoroquinolones; cm10 14:46 Levaquin; cm10 14:46 Sulfa (Sulfonamide Antibiotics); cm10 - PMHx: 14:46 Diverticulitis; ULCER; cm10 - PSHx: 14:46 carpal tunnal repair; Colectomy; Ligation of fallopian tube; cm10 - Immunization history:: Adult Immunizations up to date. - Social history:: Smoking status: Patient denies any tobacco usage or history of. ROS: 14:46 Eyes: Negative for injury, pain, redness, and discharge, Neck: Negative for injury, jh7 pain, and swelling, Cardiovascular: Negative for chest pain, palpitations, and edema, Respiratory: Negative for shortness of breath, cough, wheezing, and pleuritic chest pain, Abdomen/GI: Negative for abdominal pain, nausea, vomiting, diarrhea, and constipation, MS/Extremity: Negative for injury and deformity, Skin: Negative for injury, rash, and discoloration, Neuro: Negative for headache, weakness, numbness, tingling, and seizure, 14:46 Constitutional: Positive for fatigue, Negative for fever, 14:46 : Positive for urinary symptoms, Negative for flank pain, 14:46 All other systems are negative, Exam: 14:46 Constitutional: This is a well developed, well nourished patient who is awake, alert, jh7 and in no acute distress. Head/Face: Normocephalic, atraumatic. Eyes: Pupils equal round and reactive to light, extra-ocular motions intact. Lids and lashes normal. Conjunctiva and sclera are non-icteric and not injected. Cornea within normal limits. Periorbital areas with no swelling, redness, or edema. Neck: Trachea midline, no thyromegaly or masses palpated, and no cervical lymphadenopathy. Supple, full range of motion without nuchal rigidity, or vertebral point tenderness. No Meningismus. Cardiovascular: Regular rate and rhythm with a normal S1 and S2. No gallops, murmurs, or rubs. Normal PMI, no JVD. No pulse deficits. Respiratory: Lungs have equal breath sounds bilaterally, clear to auscultation and percussion. No rales, rhonchi or wheezes noted. No increased work of breathing, no retractions or nasal flaring. Abdomen/GI: Soft, non-tender, with normal bowel sounds. No distension or tympany. No guarding or rebound. No evidence of tenderness throughout. Back: No spinal tenderness. No costovertebral tenderness. Full range of motion. Skin: Warm, dry with normal turgor. Normal color with no rashes, no lesions, and no evidence of cellulitis. MS/ Extremity: Pulses equal, no cyanosis. Neurovascular intact. Full, normal range of motion. Neuro: Awake and alert, GCS 15, oriented to person, place, time, and situation. Motor strength 5/5 in all extremities. Sensory grossly intact. Normal gait. Vital Signs: 14:43 BP 133 / 65; Pulse 87; Resp 16; Temp 97.2; Pulse Ox 100% on R/A; Weight 72.57 kg; cm10 Height 5 ft. 3 in. ; Pain 5/10; 16:20 BP 128 / 65; Pulse 85; Resp 17 S; Pulse Ox 100% on R/A; aa5 14:43 Body Mass Index 28.34 (72.57 kg, 160.02 cm) cm10 14:43 Pain Scale: Adult cm10 MDM: 14:41 Patient medically screened. [facility] 15:58 Differential diagnosis: UTI, JENNIFER, dehydration. Data reviewed: vital signs, nurses [facility] notes, lab test result(s). I considered the following discharge prescriptions or medication management in the emergency department Medications were administered in the Emergency Department. See MAR. Historians other than the Patient: Spouse/Significant Other: . Counseling: I had a detailed discussion with the patient and/or guardian regarding the historical points, exam findings, and any diagnostic results supporting the discharge/admit diagnosis, to return to the emergency department if symptoms worsen or persist or if there are any questions or concerns that arise at home. Response to treatment: the patient's symptoms have markedly improved after treatment. 05/23 14:55 Order name: CBC with Diff; Complete Time: 15: [facility] 05/23 14:55 Order name: CMP; Complete Time: 15: [facility] 05/23 14:55 Order name: Lipase; Complete Time: 15: [facility] 05/23 14:55 Order name: Urinalysis W/Microscopic; Complete Time: 15: [facility] 05/23 14:55 Order name: CK; Complete Time: 15: [facility] 05/23 14:55 Order name: IV Saline Lock; Complete Time: 15: [facility] 05/23 14:55 Order name: Labs collected and sent; Complete Time: 15: Administered Medications: 15:30 Drug: Ondansetron IVP 4 mg IVP once; over 2 minutes Route: IVP; Site: right antecubital;aa5 16:20 Follow up: Response: No adverse reaction aa5 15:30 Drug: Famotidine IVP 20 mg IVP once; dilute with 10 mL 0.9% NaCl; give over 2 minutes aa5 Route: IVP; Site: right antecubital; 16:20 Follow up: Response: No adverse reaction aa5 15:36 Drug: NS 0.9% IV 1000 ml IV at 1 bolus Per protocol; 1000 mL bolus Route: IV; Rate: 1 aa5 bolus; Site: right antecubital; 16:20 Follow up: IV Status: Completed infusion; IV Intake: 1000ml aa5 Disposition: 16:33 Co-signature as Attending Physician, Osvaldo Carpenter MD I agree with the assessment and kdr plan of care. Disposition Summary: 05/23/23 15:58 Discharge Ordered Notes: Location: Home [facility] Problem: new jh7 Symptoms: have improved jh Condition: Stable jh7 Diagnosis - Dehydration jh7 Followup: [facility] - With: Private Physician - When: 2 - 3 days - Reason: Recheck today's complaints Discharge Instructions: - Discharge Summary Sheet [facility] - Dehydration, Adult [facility] Forms: - Medication Reconciliation Form 7 - Thank You Letter 7 - Patient Portal Instructions [facility] - Leadership Thank You Letter [facility] Signatures: Dispatcher [employer] Osvaldo Lares MD MD kdr Calderon, Audri, RN RN aa5 Makeda Tatum FNP [employer] POWERPLANT SUPERVISOR 7 Kelly Vazquez RN RN cm10
[2023-05-23 16:42] VITALS: BP 133/65; TEMP 97.2; O2SAT 100
== END ==
LOC: ER 14:34
DX: E86.0 Dehydration (principal); Z88.1 Allergy status to other antibiotic agents; Z88.2 Allergy status to sulfonamides; Z88.5 Allergy status to narcotic agent; Z88.6 Allergy status to analgesic agent
CPT/HCPCS: 85025; 81001; 36415; 82550; 83690; 80053; J2405; J7030; 96361; 96374; 96375; 99284

== ENCOUNTER → 2023-06-03 | Emergency (ER) | payer OTHER ==
[~2023-06-03] MED LIST changes: +ASPIRIN 81 MG CHEWABLE TABLET ONE; -FAMOTIDINE 20 MG/2 ML VIAL IV ONE; -NA CHLORIDE 0.9% 1,000 ML ONE; -ONDANSETRON 4 MG/2 ML VIAL ONE
[2023-06-03 14:55] LABS: Absolute Basophils 0.1 K/uL (0-0.5); Absolute Lymphocytes (CBC) 1.7 K/uL (0.7-4.9); Basophils % 0.8 % (0-1.3); Eosinophils % 0.5 % (0-4.4); Hematocrit 49.3 % (36.0-45.0); Lymphocytes % 25.9 % (15.3-44.8); MCV 90.1 fL (80-100); MPV 9.1 fL (7.6-11.3); Platelets 210 thou/uL (152-406); RBC Red Blood Cell Count 5.47 M/uL (3.86-4.86)
[2023-06-03 15:58] LABS: Anion Gap 8.5 mEq/L (5.0-15.0); BUN Blood Urea Nitrogen 9 mg/dL (7-18); Bicarbonate 28 mEq/L (21-32); Glomerular Filtration Rate 72 ml/min (=/>90); Glucose Level 96 mg/dL (74-106); Magnesium 1.8 mg/dL (1.6-2.4); Potassium 3.5 mEq/L (3.5-5.1); Sodium Level 137 mEq/L (136-145)
[2023-06-03 16:00] LABS: Troponin High Sensitivity < 3.0 pg/mL (<58.9)
--- NOTE | 2023-06-03 16:21 | EDPHYS ---
Physician Documentation [facility] Name: Tracey Rodriguez Age: 67 yrs Sex: Female : 1955 Arrival Date: 06/03/2023 Time: 11:25 Bed 8 Private MD: ED Physician Dionicio Christensen HPI: 06/02 15:42 This 67 yrs old Female presents to ER via Ambulatory with complaints of Chest Pain. ms3 15:42 67-year-old female with past medical history of diverticulitis, hypothyroidism, anxiety ms3 presents to the emergency department for chest pain/back pain that radiates to her left shoulder that began at 6 AM. Patient states she took antacids without relief. Patient was seen in the [facility] ER and told her EKG was abnormal; however, patient did not want to stay. Patient states she wanted to come to the [facility] emergency department.. Historical: - Allergies: 12:02 anti-inflammatory (all); tl4 12:02 Ciprofloxacin; tl4 12:02 fluoroquinolones; tl4 12:02 Levaquin; tl4 12:02 Sulfa (Sulfonamide Antibiotics); tl4 - PMHx: 12:02 Diverticulitis; ULCER; tl4 - PSHx: 12:02 carpal tunnal repair; Colectomy; Ligation of fallopian tube; tl4 - Immunization history:: Adult Immunizations unknown. - Social history:: Smoking status: Patient denies any tobacco usage or history of. ROS: 15:42 Constitutional: Negative for fever, and chills. Neck: Negative for injury, pain, and ms3 swelling, 15:42 Respiratory: Negative for shortness of breath, cough, wheezing, and pleuritic chest pain, Abdomen/GI: Negative for abdominal pain, nausea, vomiting, diarrhea, and constipation, Skin: Negative for injury, rash, and discoloration, 15:42 Cardiovascular: Positive for chest pain, Exam: 15:42 Constitutional: This is a well developed, well nourished patient who is awake, alert, ms3 and in no acute distress. Head/Face: Normocephalic, atraumatic. Neck: Trachea midline, no cervical lymphadenopathy. Supple, full range of motion without nuchal rigidity, or vertebral point tenderness. No Meningismus. Chest/axilla: Normal chest wall appearance and motion. Nontender with no deformity. Cardiovascular: Regular rate and rhythm with a normal S1 and S2. No gallops, murmurs, or rubs. Normal PMI, no JVD. No pulse deficits. Respiratory: Lungs have equal breath sounds bilaterally, clear to auscultation and percussion. No rales, rhonchi or wheezes noted. No increased work of breathing, no retractions or nasal flaring. Abdomen/GI: Soft, non-tender, with normal bowel sounds. No distension or tympany. No guarding or rebound. No evidence of tenderness throughout. Skin: Warm, dry with normal turgor. Normal color with no rashes, no lesions, and no evidence of cellulitis. 15:44 ECG was reviewed by the Attending Physician. [facility] [place] [place] Vital Signs: 11:56 BP 148 / 83; Pulse 69; Resp 16; Temp 98.1(O); Pulse Ox 100% on R/A; Weight 74.84 kg; tl4 Height 5 ft. 2 in. ; Pain 4/10; 15:15 BP 138 / 78; Pulse 74; Resp 15; Pulse Ox 99% ; ko1 11:56 Body Mass Index 30.18 (74.84 kg, 157.48 cm) tl4 11:56 Pain Scale: Adult tl4 MDM: 11:52 Patient medically screened. ca3 15:42 Differential diagnosis: abnormal EKG, acute myocardial infarction, coronary artery ms3 disease chest wall pain. 15:44 External Records Reviewed: Outside ED record: Chest x-ray performed at [address] on June 03, 2023 at 9:18 AM impression: No acute cardiopulmonary disease. Labs obtained on June 03, 2023 at 9:21 AM: CBC: White blood count 6.7, hemoglobin 16.2, hematocrit 47.3, platelet 191. BMP sodium 141, potassium 3.6, chloride 102, bicarb 30, glucose 92, BUN 11, creatinine 0.84, calcium 9.2, total bilirubin 1.1, alk phos 66, AST 18, ALT 24, total protein 7.3, albumin 3.7. Cardiac enzymes: Total CK 61, CK-MB 1.1, troponin I high-sensitivity 2.8. 16:21 HEART Score: History: Slightly Suspicious (0), ECG: Non specific repolarization ms3 disturbance / LBTB / PM (1), Age: > 45 and < 65 years (1), Risk Factors: No Risk Factors Known (0), Troponin: < or = 1 x Normal Limit (0), Total Score = 2. Data reviewed: vital signs, nurses notes, diagnostic data from outside facility, old medical records, lab test result(s), EKG, radiologic studies, and as a result, I will discharge patient. Consideration of Admission/Observation Escalation of care including admission/observation considered. HEART score 2; Trop 2.8 at [facility], negative here. Independent interpretation of the following test(s) in the Emergency Department EKG: See my EKG interpretation above. Counseling: I had a detailed discussion with the patient and/or guardian regarding the historical points, exam findings, and any diagnostic results supporting the discharge/admit diagnosis, lab results, radiology results, the need for outpatient follow up, to return to the emergency department if symptoms worsen or persist or if there are any questions or concerns that arise at home. ED course: Discussed labs, EKG with patient. Patient's chest pain has resolved, patient is alert and orient x 4, no apparent distress, nontoxic-appearing, ambulatory in emergency department, speaking full sentences. Patient to follow-up with Dr. Bentley in 1 to 2 days. Patient understands and agrees with plan. All questions were answered. Return precautions discussed include worsening symptoms, shortness of breath, nausea, vomiting, diaphoresis, or any other concerns. 06/02 11:37 Order name: Basic Metabolic Panel; Complete Time: 16:07 ms3 06/02 11:37 Order name: CBC with Diff; Complete Time: 15:44 ms3 06/02 11:37 Order name: Magnesium; Complete Time: 16:07 ms3 06/02 11:37 Order name: Troponin HS; Complete Time: 16:07 ms3 06/02 11:37 Order name: EKG; Complete Time: 11:38 ms3 06/02 11:37 Order name: Cardiac monitoring; Complete Time: 15:06 ms3 06/02 11:37 Order name: EKG - Nurse/Tech; Complete Time: 15:15 ms3 06/02 11:37 Order name: IV Saline Lock; Complete Time: 15:07 ms3 06/02 11:37 Order name: Labs collected and sent; Complete Time: 15:07 ms3 06/02 11:37 Order name: O2 Per Protocol; Complete Time: 15:07 ms3 06/02 11:37 Order name: O2 Sat Monitoring; Complete Time: 15:07 ms3 06/02 15:01 Order name: Labs - recollect needed: recollect light green top; Complete Time: 15:15 bd EC:44 Rate is 61 beats/min. Rhythm is regular. QRS Alsey is Normal. CA interval is normal. QRS ms3 interval is normal. Clinical impression: NSR w/ Non-specific ST/T Changes. Interpreted by me. Reviewed by me. Administered Medications: 15:15 Drug: Aspirin PO Chewable Tablet 324 mg PO once; 81 mg tablets x 4 Route: PO; ko1 16:15 Follow up: Response: No adverse reaction ko1 Disposition Summary: 06/03/23 16:20 Discharge Ordered Notes: Location: Home ms3 Condition: Stable ms3 Diagnosis - Chest pain, unspecified ms3 Followup: ms3 - With: Juan Bentley MD - When: 1 - 2 days - Reason: Recheck today's complaints Discharge Instructions: - Discharge Summary Sheet ms3 - Nonspecific Chest Pain, Adult ms3 Forms: - Medication Reconciliation Form ms3 - Thank You Letter ms3 - Antibiotic Education ms3 - Prescription Opioid Use ms3 - Patient Portal Instructions ms3 - Leadership Thank You Letter ms3 Signatures: Dispatcher [employer] EDMS Zoila Graff Marcus, DO DO ms3 Barbie Zuniga, RN RN ko1 Gennaro Carrillo RN RN tl4 Corrections: (The following items were deleted from the chart) 12:16 11:38 Chest Single View+RAD.RAD.[email or web address] ordered. EDMS EDMS
--- NOTE | 2023-06-03 16:21 | ER ---
Nurse's Notes [facility] Name: Tracey Rodriguez Age: 67 yrs Sex: Female : 1955 Arrival Date: 06/03/2023 Time: 11:25 Bed 8 Private MD: Diagnosis: Chest pain, unspecified Presentation: 06/02 11:56 Chief complaint: Patient states: Pt was at [facility] this am and was to be tl4 admitted due to an "abnormal EKG". Pt left AMA. Pt presented to this ED for admission if that is necessary. Pt states she presented to [facility] for chest, back and left shoulder pain. Pt states symptoms are relieved but feels like she is having tachycardia. Pt thinks she is having a reaction to her "thyroid pill". Coronavirus screen: At this time, the client does not indicate any symptoms associated with coronavirus-19. Ebola Screen: No symptoms or risks identified at this time. Initial Sepsis Screen: Does the patient meet any 2 criteria? No. Patient's initial sepsis screen is negative. Does the patient have a suspected source of infection? No. Patient's initial sepsis screen is negative. Risk Assessment: Do you want to hurt yourself or someone else? Patient reports no desire to harm self or others. Onset of symptoms was June 03, 2023 at 06:00. 11:56 Method Of Arrival: Ambulatory tl4 11:56 Acuity: ANUJA 2 tl4 Triage Assessment: 12:05 General: Appears in no apparent distress. Behavior is calm, cooperative. Pain: tl4 Complains of pain in chest. EENT: No deficits noted. No signs and/or symptoms were reported regarding the EENT system. Neuro: Reports dizziness, headache Denies blurred vision difficulty swallowing, numbness. Cardiovascular: Reports chest pain, now resolved. Cardiovascular: Reports palpitations. Respiratory: No deficits noted. Denies cough, shortness of breath labored breathing. GI: Reports belching. : No deficits noted. No signs and/or symptoms were reported regarding the genitourinary system. Derm: No deficits noted. No signs and/or symptoms reported regarding the dermatologic system. Musculoskeletal: No deficits noted. No signs and/or symptoms reported regarding the musculoskeletal system. Historical: - Allergies: 12:02 anti-inflammatory (all); tl4 12:02 Ciprofloxacin; tl4 12:02 fluoroquinolones; tl4 12:02 Levaquin; tl4 12:02 Sulfa (Sulfonamide Antibiotics); tl4 - PMHx: 12:02 Diverticulitis; ULCER; tl4 - PSHx: 12:02 carpal tunnal repair; Colectomy; Ligation of fallopian tube; tl4 - Immunization history:: Adult Immunizations unknown. - Social history:: Smoking status: Patient denies any tobacco usage or history of. Screenin:15 [facility] ED Fall Risk Assessment (Adult) History of falling in the last 3 months, ko1 including since admission No falls in past 3 months (0 pts) Confusion or Disorientation No (0 pts) Intoxicated or Sedated No (0 pts) Impaired Gait No (0 pts) Mobility Assist Device Used No (0 pt) Altered Elimination No (0 pt) Score/Fall Risk Level 0 - 2 = Low Risk Oriented to surroundings, Maintained a safe environment, Educated pt \\T\\ family on fall prevention, incl call for assistance when getting out of bed, Assessed \\T\\ reinforced patient's understanding of fall precautions, Provided non-skid footwear, Hourly rounding (assess needs \\T\\ fall precautionary measures) done, Used ambulatory aids as needed (educated on \\T\\ assisted with), Used gait belt as appropriate. Abuse screen: Denies threats or abuse. Denies injuries from another. Nutritional screening: No deficits noted. Tuberculosis screening: No symptoms or risk factors identified. Assessment: 15:15 General: Appears in no apparent distress. comfortable, Behavior is calm, cooperative, ko1 appropriate for age. Pain: Pain does not radiate. Pain began gradually, 1 day ago. Neuro: No deficits noted. Cardiovascular: Reports chest pain. Respiratory: No deficits noted. GI: No deficits noted. : No deficits noted. EENT: No deficits noted. Derm: No deficits noted. Musculoskeletal: No deficits noted. Vital Signs: 11:56 BP 148 / 83; Pulse 69; Resp 16; Temp 98.1(O); Pulse Ox 100% on R/A; Weight 74.84 kg; tl4 Height 5 ft. 2 in. ; Pain 4/10; 15:15 BP 138 / 78; Pulse 74; Resp 15; Pulse Ox 99% ; ko1 11:56 Body Mass Index 30.18 (74.84 kg, 157.48 cm) tl4 11:56 Pain Scale: Adult tl4 ED Course: 11:28 Patient arrived in ED. im 11:37 Dionicio Christensen DO is Attending Physician. ms3 12:02 Triage completed. tl4 12:05 Arm band placed on left wrist. tl4 14:52 Inserted saline lock: 20 gauge in right antecubital area, using aseptic technique. db Blood collected. 15:15 Patient has correct armband on for positive identification. Allergy band placed. Placed ko1 in gown. Bed in low position. Call light in reach. Side rails up X2. Provided Education on: na. Client placed on continuous cardiac and pulse oximetry monitoring. NIBP monitoring applied. monitor technician on. Door closed. Noise minimized. Lights dimmed. Warm blanket given. 15:15 Basic Metabolic Panel Sent. ko1 15:15 Magnesium Sent. ko1 15:15 Troponin HS Sent. ko1 15:15 No provider procedures requiring assistance completed. Patient maintains SpO2 ko1 saturation greater than 95% on room air. 15:28 Barbie Zuniga, RN is Primary Nurse. ko1 16:20 Juan Bentley MD is Referral Physician. ms3 16:35 IV discontinued, intact, bleeding controlled, No redness/swelling at site. Pressure ko1 dressing applied. Administered Medications: 15:15 Drug: Aspirin PO Chewable Tablet 324 mg PO once; 81 mg tablets x 4 Route: PO; ko1 16:15 Follow up: Response: No adverse reaction ko1 Medication: 15:15 VIS not applicable for this client. ko1 Outcome: 16:20 Discharge ordered by . ms3 16:35 Discharged to home ambulatory, ko1 16:35 Condition: stable 16:35 Discharge instructions given to patient, Instructed on discharge instructions, follow up and referral plans. Demonstrated understanding of instructions, follow-up care, 16:36 Patient left the ED. ko1 Signatures: Dionicio Christensen DO DO ms3 Barbie Zuniga, RN RN ko1 Janna Jin, RN RN db Vidhya Lima im Gennaro Carrillo RN RN tl4
[2023-06-03 17:06] VITALS: BP 138/78; TEMP 98.1; O2SAT 99
--- NOTE | 2023-06-04 14:15 | EKG ---
Test Date: 2023-06-03 Test Time: 15:10:06 Plastic Cutter: ABI MEASUREMENT RESULTS: Intervals: Rate: 61 OH: 132 QRSD: 78 QT: 404 QTc: 406 Shickley: P: 47 OH: 132 QRS: -27 T: -22 INTERPRETIVE STATEMENTS: Normal sinus rhythm Nonspecific ST and T wave abnormality Abnormal ECG Compared to ECG 08/24/2022 12:07:11 ST (T wave) deviation now present Sinus bradycardia no longer present Myocardial infarct finding no longer present Electronically Signed On 06-04-23 14:13:02 VERIFYING MACHINE OPERATOR by Juan Bentley
== END ==
LOC: ER 11:25
DX: R07.9 Chest pain, unspecified (principal); Z88.1 Allergy status to other antibiotic agents; Z88.2 Allergy status to sulfonamides; Z88.5 Allergy status to narcotic agent; Z88.8 Allergy status to other drugs, medicaments and biological substances
CPT/HCPCS: 36415; 80048; 83735; 84484; 85025; 93005; 99285

== ENCOUNTER 2023-11-27 08:09 | Emergency (ER) | payer OTHER ==
[2023-11-27] MEDS ORDERED: KETOROLAC 30 MG/ML INJ ONE (08:36)
[2023-11-27] MEDS ORDERED: DIPHENHYDRAMINE 50 MG/ML VIAL ONE (08:37)
[2023-11-27] MEDS ORDERED: Magnesium Sulfate 2gm IVPB 2 G/50 ML BAG IV ONE (08:37)
[2023-11-27] MEDS ORDERED: NA CHLORIDE 0.9% 1,000 ML ONE (08:37)
[2023-11-27 08:55] LABS: Specific Gravity 1.007 (1.005-1.030); Sqamous Epithelial <5 /HPF (None Seen); Urine Bacteria <20 /HPF (<20); Urine Bilirubin NEGATIVE (Negative); Urine Blood Negative (Negative); Urine Clarity Clear (Clear); Urine Color Colorless (Yellow); Urine Culture Reflex Order NOT NEEDED; Urine Glucose NEGATIVE (Negative); Urine Ketones NEGATIVE (Negative); Urine Micro Reflex YN NO BILL MICROSCOPIC; Urine Nitrite NEGATIVE (Negative); Urine Protein NEGATIVE (Negative); Urine RBC <5 /HPF (None Seen); Urine Urobilinogen Normal (Normal); Urine WBC <5 /HPF (<5)
[2023-11-27 09:04] LABS: Anion Gap 7.7 mEq/L (5.0-15.0); Potassium 3.7 mEq/L (3.5-5.1)
[2023-11-27 09:10] LABS: Absolute Basophils 0.1 K/uL (0-0.5); Absolute Lymphocytes (CBC) 1.3 K/uL (0.7-4.9); Absolute Monocytes 0.4 K/uL (0.1-1.3); Absolute Neutrophil 4.8 K/uL (1.8-8.0); Basophils % 0.8 % (0-1.3); Eosinophils % 0.6 % (0-4.4); Hematocrit 45.6 % (36.0-45.0); Hemoglobin 15.3 g/dL (12.0-15.0); Lymphocytes % 19.2 % (15.3-44.8); MCH 30.2 pg (27.0-35.0); MCHC 33.4 g/dL (32.0-36.0); MCV 90.3 fL (80-100); MPV 8.9 fL (7.6-11.3); Monocytes % 6.4 % (3.3-12.3); Nucleated Red Blood Cells % 0.1 % (0-0); Platelets 199 thou/uL (152-406); RBC Red Blood Cell Count 5.06 M/uL (3.86-4.86); Red Cell Distribution Width 13.4 % (12.1-15.2)
[2023-11-27] MEDS ORDERED: POTASSIUM CL SA 10 MEQ TAB PO ONE (10:19)
--- NOTE | 2023-11-27 11:00 | EDPHYS ---
Physician Documentation [facility] Name: Tracey Rodriguez Age: 68 yrs Sex: Female : 1955 Arrival Date: 11/27/2023 Time: 08:00 Bed 14 Private MD: ED Physician Luis Angel Mercado HPI: 11/26 08:21 This 68 yrs old Female presents to ER via Unassigned with complaints of Pain ec2 All Over, Nausea. 08:21 Patient arrives today for feeling unwell. Patient reports that she has been having ec2 multiple weeks of symptoms, states that she is having generalized body cramps, some nausea, some headaches as well as poor p.o. intake and fatigue. Has had issues with low magnesium for greater than 6 months, states that she gets diarrhea from taking magnesium supplementations. States that she has not regularly followed up with her primary care doctor for this. Historical: - Allergies: 08:01 anti-inflammatory (all); ld1 08:01 Ciprofloxacin; ld1 08:01 fluoroquinolones; ld1 08:01 Levaquin; ld1 08:01 Sulfa (Sulfonamide Antibiotics); ld1 - PMHx: 08:01 Diverticulitis; ULCER; ld1 - PSHx: 08:01 carpal tunnal repair; Colectomy; Ligation of fallopian tube; ld1 - Immunization history:: Adult Immunizations unknown. - Infectious Disease History:: Denies. - Social history:: Smoking status: Patient denies any tobacco usage or history of. ROS: 08:22 Constitutional: as per hpi ec2 Exam: 08:22 Constitutional: GEN: NAD Head: atraumatic Eyes: EOMI Ears: External ears are ec2 normal. CV: regular rate LUNGS: no respiratory distress ABD: non-distended SKIN: no evidence of rashes MSK: no evidence of trauma Vital Signs: 08:06 BP 142 / 87; Pulse 68; Resp 16; Pulse Ox 99% ; db 08:15 BP 142 / 87; Pulse 71; Resp 16; Temp 97.8(O); Pulse Ox 99% on R/A; Weight 83.46 kg; db Height 5 ft. 3 in. ; 08:15 Body Mass Index 32.59 (83.46 kg, 160.02 cm) db MDM: 08:02 Patient medically screened. ec2 08:22 Data reviewed: vital signs. ED course: Patient arrives today for evaluation of feeling ec2 unwell for multiple weeks. Examination remarkable for well-appearing hemodynamically stable who is otherwise in no acute distress. Will obtain lab work, give the patient medications. Differential includes dehydration, electrolyte disturbances, anemia.. 09:53 ED course: Metabolic profile reassuring, CBC reassuring, magnesium within normal ec2 ranges, urine is noninfectious appearing. . 11:00 ED course: On reassessment patient is well-appearing no acute distress. Will discharge ec2 home. Return precautions given. Instructed follow-up primary care.. 11/26 08:19 Order name: Basic Metabolic Panel; Complete Time: 09:53 ec2 11/26 08:19 Order name: CBC with Diff; Complete Time: :53 ec2 11/26 08:22 Order name: Magnesium; Complete Time: 09:53 ec2 11/26 08:23 Order name: UAM; Complete Time: :53 ec2 11/26 08:19 Order name: Cardiac monitoring; Complete Time: 09:31 ec2 11/26 08:19 Order name: EKG - Nurse/Tech; Complete Time: 09:31 ec2 11/26 08:19 Order name: IV Saline Lock; Complete Time: 10:16 ec2 11/26 08:19 Order name: Labs collected and sent; Complete Time: 09:31 ec2 11/26 08:19 Order name: O2 Per Protocol; Complete Time: 09:31 ec2 11/26 08:19 Order name: O2 Sat Monitoring; Complete Time: 09:31 ec2 Administered Medications: 08:22 CANCELLED (Physician Discretion): magnesium sulfate2 grams IVPB once over 2 hrs ec2 10:12 Drug: NS 0.9% IV 1000 ml IV at 1 bolus Per protocol; 1000 mL bolus Route: IV; Rate: 1 db bolus; Site: left antecubital; 10:12 Drug: Droperidol IVP 2.5 mg IVP once Route: IVP; Site: left antecubital; db 10:12 Drug: diphenhydrAMINE IVP 25 mg IVP once Route: IVP; Site: left antecubital; db 10:13 Drug: Magnesium Sulfate IVPB 2 grams IVPB once over 30 mins Route: IVPB; Infused Over: db 30 mins; Site: left antecubital; 10:15 Drug: Ketorolac IVP 15 mg IVP once Route: IVP; Site: left antecubital; db 10:27 Drug: Potassium Chloride PO 40 mEq PO once Route: PO; rs5 Disposition Summary: 11/27/23 11:00 Discharge Ordered Notes: Location: Home ec2 Condition: Stable ec2 Diagnosis - Myalgia ec2 - Cramp and spasm ec2 - Other fatigue ec2 - Other reactions to severe stress ec2 Followup: ec2 - With: Private Physician - When: - Reason: Re-evaluation by your physician Discharge Instructions: - Discharge Summary Sheet ec2 - Leg Cramps ec2 Forms: - Medication Reconciliation Form ec2 - Antibiotic Education ec2 - Prescription Opioid Use ec2 - Patient Portal Instructions ec2 - Leadership Thank You Letter ec2 Signatures: Dispatcher [employer] EDPaulina Can RN RN ld1 Janna Jin RN RN db Jean Claude Navarro RN RN rs5 Luis Angel Mercado MD MD ec2 Corrections: (The following items were deleted from the chart) 08:22 08:22 Magnesium Sulfate IVPB 2 grams IVPB once over 2 hrs ordered. ec2 ec2 08:23 08:21 Patient arrives today for feeling unwell. Patient reports that she has been ec2 having multiple weeks of symptoms, states that she is having generalized body cramps, some nausea, some headaches as well as poor p.o. intake and fatigue. Has had issues with low magnesium,. ec2
--- NOTE | 2023-11-27 11:00 | ER ---
Nurse's Notes [facility] Name: Tracey Rodriguez Age: 68 yrs Sex: Female : 1955 Arrival Date: 11/27/2023 Time: 08:00 Bed 14 Private MD: Diagnosis: Myalgia;Cramp and spasm;Other fatigue;Other reactions to severe stress Presentation: 11/26 08:15 Chief complaint: Patient states: PATIENT REPORTS TAKING CARE OF WITH DEMENTIA db AND IT IS CAUSING A LOT OF "STRESS" . PATIENT HERE TODAY FOR NAUSEA/ PAIN ALL OVER, MUSCLE CRAMPS, DIZZY, SINUS INFECTION, POSSIBLE SHINGLES, DIARRHEA, AND FEELING STRANGE. SEEN AT [facility] YESTERDAY GIVEN FLUIDS AND MAGNESIUM. CAME TO THIS ED TODAY BECAUSE STILL HAVING SYMPTOMS. SYMPTOMS X 2 WEEKS. Coronavirus screen: Client denies travel out of the [place] in the last 14 days. At this time, the client does not indicate any symptoms associated with coronavirus-19. Ebola Screen: Patient negative for fever greater than or equal to 101.5 degrees Fahrenheit, and additional compatible Ebola Virus Disease symptoms Patient denies exposure to infectious person. Patient denies travel to an Ebola-affected area in the 21 days before illness onset. No symptoms or risks identified at this time. Initial Sepsis Screen: Does the patient meet any 2 criteria? Yes Does the patient have a suspected source of infection? No. Patient's initial sepsis screen is negative. Risk Assessment: Do you want to hurt yourself or someone else? Patient reports no desire to harm self or others. Onset of symptoms was November 13, 2023. 08:15 Method Of Arrival: Ambulatory db 08:15 Acuity: ANUJA 3 db Triage Assessment: 08:15 General: Appears in no apparent distress. comfortable, Behavior is cooperative, db anxious. Pain: Complains of pain in BODY. Neuro: Level of Consciousness is awake, alert, obeys commands, Oriented to person, place, time, situation. Respiratory: Airway is patent Respiratory effort is even, unlabored, Respiratory pattern is regular, symmetrical. Historical: - Allergies: 08:01 anti-inflammatory (all); ld1 08:01 Ciprofloxacin; ld1 08:01 fluoroquinolones; ld1 08:01 Levaquin; ld1 08:01 Sulfa (Sulfonamide Antibiotics); ld1 - PMHx: 08:01 Diverticulitis; ULCER; ld1 - PSHx: 08:01 carpal tunnal repair; Colectomy; Ligation of fallopian tube; ld1 - Immunization history:: Adult Immunizations unknown. - Infectious Disease History:: Denies. - Social history:: Smoking status: Patient denies any tobacco usage or history of. Screenin:30 [facility] ED Fall Risk Assessment (Adult) History of falling in the last 3 months, db including since admission No falls in past 3 months (0 pts) Confusion or Disorientation No (0 pts) Intoxicated or Sedated No (0 pts) Impaired Gait No (0 pts) Mobility Assist Device Used No (0 pt) Altered Elimination No (0 pt) Score/Fall Risk Level 0 - 2 = Low Risk Oriented to surroundings, Maintained a safe environment. Abuse screen: Denies threats or abuse. Denies injuries from another. Nutritional screening: No deficits noted. Tuberculosis screening: No symptoms or risk factors identified. Assessment: 08:50 Reassessment: Patient appears in no apparent distress at this time. Patient and/or db family updated on plan of care and expected duration. Pain level reassessed. Patient is alert, oriented x 3, equal unlabored respirations, skin warm/dry/pink. REQUEST STEAM ENGINEERDOLORES HWANG TO ATTEMPT IV DUE TO MISSED ATTEMPT. General: Appears in no apparent distress. comfortable, Behavior is calm, cooperative. Neuro: Level of Consciousness is awake, alert, obeys commands, Oriented to person, place, time, situation. 09:35 Reassessment: Patient appears in no apparent distress at this time. Patient and/or db family updated on plan of care and expected duration. Pain level reassessed. Patient is alert, oriented x 3, equal unlabored respirations, skin warm/dry/pink. Vital Signs: 08:06 BP 142 / 87; Pulse 68; Resp 16; Pulse Ox 99% ; db 08:15 BP 142 / 87; Pulse 71; Resp 16; Temp 97.8(O); Pulse Ox 99% on R/A; Weight 83.46 kg; db Height 5 ft. 3 in. ; 08:15 Body Mass Index 32.59 (83.46 kg, 160.02 cm) db ED Course: 08:00 Patient arrived in ED. mg5 08:00 Luis Angel Mercado MD is Attending Physician. ec2 08:15 Arm band placed on Patient placed in an exam room. db 08:19 Janna Jin, DOLORES is Primary Nurse. db 08:22 Triage completed. db 08:38 Missed attempt(s): 20 gauge in left antecubital area. BY ANOTHER ED STAFF MEMBER. db Bleeding controlled, band aid applied, catheter tip intact. 08:40 Initial lab(s) drawn, by me, sent to lab. EKG done. Inserted saline lock: 22 gauge in db right antecubital area, using aseptic technique. Blood collected. Flushed with 10 mL NS. 08:45 IV with fluids infusing freely, PATIENT COMPLAINS IV TO RIGHT AC IS PAINFUL. IV db REMOVED. CATHETER INTACT. BANDAGE APPLIED. 08:46 Missed attempt(s): 22 gauge in left antecubital area. Bleeding controlled, band aid db applied, catheter tip intact. 09:35 Missed attempt(s): 22 gauge in right antecubital area. BY ANOTHER ED STAFF MEMBER. db Bleeding controlled, band aid applied, catheter tip intact. 09:36 Patient has correct armband on for positive identification. Bed in low position. Call db light in reach. Side rails up X 1. Client placed on continuous cardiac and pulse oximetry monitoring. NIBP monitoring applied. monitor and storage bin tender on. Pulse ox on. NIBP on. Warm blanket given. Pillow given. 10:04 Inserted saline lock: 20 gauge in right antecubital area, using aseptic technique. hb Blood collected. Flushed with 10 mL NS. Administered Medications: 08:22 CANCELLED (Physician Discretion): magnesium sulfate2 grams IVPB once over 2 hrs ec2 10:12 Drug: NS 0.9% IV 1000 ml IV at 1 bolus Per protocol; 1000 mL bolus Route: IV; Rate: 1 db bolus; Site: left antecubital; 10:12 Drug: Droperidol IVP 2.5 mg IVP once Route: IVP; Site: left antecubital; db 10:12 Drug: diphenhydrAMINE IVP 25 mg IVP once Route: IVP; Site: left antecubital; db 10:13 Drug: Magnesium Sulfate IVPB 2 grams IVPB once over 30 mins Route: IVPB; Infused Over: db 30 mins; Site: left antecubital; 10:15 Drug: Ketorolac IVP 15 mg IVP once Route: IVP; Site: left antecubital; db 10:27 Drug: Potassium Chloride PO 40 mEq PO once Route: PO; rs5 Outcome: 11:00 Discharge ordered by . ec2 11:08 Patient left the ED. rs5 Signatures: Melissa Krishnamurthy RN RN Paulina Christensen RN RN ld1 Janna Jin RN RN db Jean Claude Navarro RN RN rs5 Jocelyn Balderas 5 Luis Angel Mercado MD MD ec2 Corrections: (The following items were deleted from the chart) 08:22 08:15 Chief complaint: Patient states: PATIENT HERE TODAY FOR NAUSEA/ PAIN ALL OVER, db MUSCLE CRAMPS, DIZZY, SINUS INFECTION, POSSIBLE SHINGLES, DIARRHEA, AND FEELING STRANGE. SEEN AT [facility] YESTERDAY GIVEN FLUIDS AND MAGNESIUM. CAME TO THIS ED TODAY BECAUSE STILL HAVING SYMPTOMS db 08:24 08:15 Chief complaint: Patient states: PATIENT HERE TODAY FOR NAUSEA/ PAIN ALL OVER, db MUSCLE CRAMPS, DIZZY, SINUS INFECTION, POSSIBLE SHINGLES, DIARRHEA, AND FEELING STRANGE. SEEN AT [facility] YESTERDAY GIVEN FLUIDS AND MAGNESIUM. CAME TO THIS ED TODAY BECAUSE STILL HAVING SYMPTOMS. SYMPTOMS X 2 WEEKS db
[2023-11-27 11:12] VITALS: BP 142/87; TEMP 97.8; O2SAT 99
--- NOTE | 2023-11-28 14:00 | EKG ---
Test Date: 2023-11-27 Test Time: 08:32:16 Bakery Manager: PREM MEASUREMENT RESULTS: Intervals: Rate: 67 IL: 134 QRSD: 82 QT: 378 QTc: 399 [place]: P: 70 IL: 134 QRS: -55 T: -26 INTERPRETIVE STATEMENTS: Normal sinus rhythm with sinus arrhythmia Left axis deviation Nonspecific ST and T wave abnormality Abnormal ECG Compared to ECG 06/03/2023 15:10:06 Left-axis deviation now present ST (T wave) deviation still present Electronically Signed On 11-28-23 13:59:41 CDT by Ameya Pineda
== END 2023-11-27 11:08 | disposition home or self-care (01) ==
LOC: ER 08:09
DX: M79.10 Myalgia, unspecified site (principal); R25.2 Cramp and spasm; R53.83 Other fatigue; F43.89 Other reactions to severe stress; R51.9 Headache, unspecified
CPT/HCPCS: 93005; 85025; 81001; 80048; 36415; 83735; 96375; 96374; 99285; J3475; J1200; J7030

== ENCOUNTER 2023-12-13 09:24 | Emergency (ER) | payer OTHER ==
[2023-12-13] MEDS ORDERED: NA CHLORIDE 0.9% 1,000 ML ONE (09:36)
[2023-12-13 09:53] LABS: Absolute Lymphocytes (CBC) 0.5 K/uL (0.7-4.9); Absolute Monocytes 0.4 K/uL (0.1-1.3); Absolute Neutrophil 2.3 K/uL (1.8-8.0); Basophils % 0.7 % (0-1.3); Eosinophils % 0.1 % (0-4.4); Hematocrit 46.8 % (36.0-45.0); Hemoglobin 15.5 g/dL (12.0-15.0); MCH 29.8 pg (27.0-35.0); MCHC 33.1 g/dL (32.0-36.0); MCV 90.1 fL (80-100); MPV 9.6 fL (7.6-11.3); Monocytes % 11.3 % (3.3-12.3); Neutrophils % 71.9 % (41.7-73.7); Nucleated Red Blood Cells % 0.1 % (0-0); Platelets 149 thou/uL (152-406); Red Cell Distribution Width 13.3 % (12.1-15.2)
[2023-12-13 10:08] LABS: Albumin 3.7 g/dL (3.4-5.0); Albumin/Globulin Ratio 1.2 (1.1-1.8); Anion Gap 10.7 mEq/L (5.0-15.0); Bilirubin Total 0.6 mg/dL (0.2-1.0); Globulin 3.1 g/dL (2.3-3.5); Potassium 3.7 mEq/L (3.5-5.1); Protein, Total 6.8 g/dL (6.4-8.2)
[2023-12-13 10:09] LABS: Specific Gravity 1.023 (1.005-1.030); Sqamous Epithelial <5 /HPF (None Seen); Urine Bacteria <20 /HPF (<20); Urine Bilirubin NEGATIVE (Negative); Urine Blood 1+ (Negative); Urine Clarity Turbid (Clear); Urine Color Yellow (Yellow); Urine Culture Reflex Order NOT NEEDED; Urine Glucose NEGATIVE (Negative); Urine Ketones 2+ (Negative); Urine Microscopic Reflex YN ORDER UMIC; Urine Mucus 1+ /HPF (None Seen); Urine Nitrite NEGATIVE (Negative); Urine Protein TRACE (Negative); Urine Urobilinogen Normal (Normal); Urine WBC <5 /HPF (<5)
[2023-12-13] MEDS ORDERED: ACETAMINOPHEN 500 MG TAB ONE (11:00)
[2023-12-13] MEDS ORDERED: METOCLOPRAMIDE 10 MG/2mL INJ ONE (11:00)
[2023-12-13 12:10] LABS: CDIFF INTERNAL NEG CONTROL White Background (WHITE BKGD); STOOL CONSISTENCY Liquid/Semi-Solid
[2023-12-13 12:11] LABS: C.diff Antigen/Toxin Ag pos : Tox neg (NEG : NEG)
--- NOTE | 2023-12-13 12:52 | EDPHYS ---
Physician Documentation [facility] Name: rTacey Rodriguez Age: 68 yrs Sex: Female : 1955 Arrival Date: 12/13/2023 Time: 09:24 Bed 13 Private MD: ED Physician Bruce Mclean HPI: 12/12 09:30 This 68 yrs old Female presents to ER via EMS with complaints of weakness. sb4 09:30 patient reports long standing GI issues, was most recently admitted at [address] for gastritis. she states that since she was discharged, she has been very weak, tired, nauseated, diarrheal, and had no appetite. she denies any abdominal pain, chest pain, or shortness of breath. new medications include pantoprazole and famotidine. denies any recent antibiotics. Historical: - Allergies: 09:29 anti-inflammatory (all); ko1 09:29 Ciprofloxacin; ko1 09:29 fluoroquinolones; ko1 09:29 Levaquin; ko1 09:29 Sulfa (Sulfonamide Antibiotics); ko1 - PMHx: 09:29 Diverticulitis; ULCER; ko1 09:31 Depressive disorder; Anxiety; ko1 - PSHx: 09:29 carpal tunnal repair; Colectomy; Ligation of fallopian tube; ko1 - Immunization history:: Adult Immunizations up to date. - Infectious Disease History:: Denies. - Social history:: Smoking status: Patient denies any tobacco usage or history of. ROS: 09:32 Cardiovascular: Negative for chest pain, palpitations, and edema, sb4 09:32 Constitutional: Positive for fatigue, malaise, poor PO intake, 09:32 Abdomen/GI: Positive for nausea, diarrhea, 09:32 All other systems are negative, Exam: 09:32 Constitutional: This is a well developed, well nourished patient who is awake, alert, sb4 and in no acute distress. Head/Face: Normocephalic, atraumatic. Eyes: Extra-ocular motions intact. Periorbital areas with no swelling, redness, or edema. ENT: Mucous membranes moist. Cardiovascular: Regular rate and rhythm with a normal S1 and S2. Respiratory: Lungs have equal breath sounds bilaterally, clear to auscultation and percussion. No rales, rhonchi or wheezes noted. No increased work of breathing, no retractions or nasal flaring. Abdomen/GI: Soft, non-tender, no distension. Skin: Warm, dry with normal turgor. Normal color with no rashes, no lesions, and no evidence of cellulitis. MS/ Extremity: Pulses equal, no cyanosis. Neurovascular intact. Full, normal range of motion. Neuro: Awake and alert, GCS 15, oriented to person, place, time, and situation. Motor strength 5/5 in all extremities. Sensory grossly intact. Vital Signs: 09:27 BP 121 / 66; Pulse 78; Resp 16; Temp 97; Pulse Ox 100% ; ko1 09:53 BP 130 / 81; Pulse 82; Resp 16; Pulse Ox 99% ; ko1 10:16 BP 126 / 72; Pulse 78; Resp 14; Pulse Ox 100% ; ko1 12:10 BP 134 / 80; Pulse 82; Resp 14; Pulse Ox 99% ; ko1 12:45 BP 130 / 86; Pulse 74; Resp 16; Pulse Ox 99% ; ko1 MDM: 09:28 Patient medically screened. sb4 12:35 ED course: contacted Dr. Doll at 12:29, awaiting call back. sb4 12:52 Data reviewed: vital signs, nurses notes, lab test result(s), radiologic studies, I sb4 have discussed the patient's presentation/case with the attending Emergency Department Physician; and as a result, I will discharge patient. Counseling: I had a detailed discussion with the patient and/or guardian regarding the historical points, exam findings, and any diagnostic results supporting the discharge/admit diagnosis, lab results, radiology results, the need for outpatient follow up, for definitive care, to return to the emergency department if symptoms worsen or persist or if there are any questions or concerns that arise at home. 12/12 09:29 Order name: CBC with Diff; Complete Time: 09:56 sb4 12/12 09:29 Order name: CMP; Complete Time: 10: 4 12/12 09:29 Order name: Lipase; Complete Time: 10: 4 12/12 09:29 Order name: Urinalysis w/ reflexes; Complete Time: 10: [facility] 12/12 09:29 Order name: Magnesium; Complete Time: : [facility] 12/12 09:56 Order name: CDIFF; Complete Time: 12:11 sb4 12/12 09:29 Order name: IV Saline Lock; Complete Time: 09:47 sb4 12/12 09:29 Order name: Labs collected and sent; Complete Time: 09:47 sb4 12/12 12:35 Order name: PO challenge; Complete Time: 12:39 sb4 Administered Medications: 09:52 Drug: NS 0.9% IV 1000 ml IV at 1 bolus Per protocol; 1000 mL bolus Route: IV; Rate: 1 ko1 bolus; Site: right antecubital; 11:00 Follow up: Response: No adverse reaction; IV Status: Completed infusion; IV Intake: ko1 1000ml 11:02 Drug: metoCLOPramide IVP 10 mg IVP once; over 1 to 2 minutes Route: IVP; Site: right ko1 antecubital; 11:17 Follow up: Response: No adverse reaction ko1 11:02 Drug: Acetaminophen PO 1000 mg PO once Route: PO; ko1 11:35 Follow up: Response: No adverse reaction ko1 Disposition: 12/13 07:41 Co-signature as Attending Physician, Bruce Mclean MD I reviewed the patient's care rn provided by the Advanced Practice Provider and agree with the diagnosis and treatment plan. Disposition Summary: 12/13/23 12:52 Discharge Ordered Notes: Location: Home sb4 Problem: an ongoing problem sb4 Symptoms: are unchanged sb4 Condition: Stable sb4 Diagnosis - Other malaise and fatigue sb4 - Diarrhea, unspecified sb4 Followup: sb4 - With: Jordan Doll MD - When: 2 - 3 days - Reason: Recheck today's complaints, Re-evaluation by your physician Discharge Instructions: - Discharge Summary Sheet sb4 - Food Choices to Help Relieve Diarrhea, Adult sb4 - Fatigue sb4 Forms: - Patient Portal Instructions sb4 - Leadership Thank You Letter sb4 Signatures: Dispatcher [employer] Bruce Raya MD MD rn Oliver, Kathy, RN RN lou1 Narda Arndt PA-C PA-C sb4 Corrections: (The following items were deleted from the chart) 12/12 09:29 09:29 CBC+H.LAB.BRZ ordered. EDMS EDMS 09:29 09:29 COMPREHENSIVE METABOLIC PANEL+C.LAB.BRZ ordered. EDMS EDMS 09:29 09:29 LIPASE+C.LAB.BRZ ordered. EDMS EDMS : 09:29 Urinalysis+U.LAB.BRZ ordered. EDMS EDMS 09:29 MAGNESIUM+C.LAB.BRZ ordered. EDMS EDMS 10:45 10:18 Abdomen Pelvis W Con+CT.RAD.BRZ ordered. EDMS EDMS
--- NOTE | 2023-12-13 12:52 | ER ---
Nurse's Notes [facility] Name: Tracey Rodriguez Age: 68 yrs Sex: Female : 1955 Arrival Date: 12/13/2023 Time: 09:24 Bed 13 Private MD: Diagnosis: Other malaise and fatigue;Diarrhea, unspecified Presentation: 12/12 09:27 Chief complaint: EMS states: patient called for diarrhea and decreased appetite for a ko1 month. Was recently diagnosed with gastritis at [facility]. Coronavirus screen: At this time, the client does not indicate any symptoms associated with coronavirus-19. Ebola Screen: No symptoms or risks identified at this time. Initial Sepsis Screen: Does the patient meet any 2 criteria? No. Patient's initial sepsis screen is negative. Does the patient have a suspected source of infection? No. Patient's initial sepsis screen is negative. Risk Assessment: Do you want to hurt yourself or someone else? Patient reports no desire to harm self or others. Onset of symptoms is unknown. 09:27 Method Of Arrival: EMS: [facility] ko1 09:27 Acuity: ANUJA 3 ko1 Triage Assessment: 09:29 General: Appears in no apparent distress. Behavior is calm, cooperative, appropriate ko1 for age. Pain: Denies pain. Complains of pain in all over. Historical: - Allergies: 09:29 anti-inflammatory (all); ko1 09:29 Ciprofloxacin; ko1 09:29 fluoroquinolones; ko1 09:29 Levaquin; ko1 09:29 Sulfa (Sulfonamide Antibiotics); ko1 - PMHx: 09:29 Diverticulitis; ULCER; ko1 09:31 Depressive disorder; Anxiety; ko1 - PSHx: 09:29 carpal tunnal repair; Colectomy; Ligation of fallopian tube; ko1 - Immunization history:: Adult Immunizations up to date. - Infectious Disease History:: Denies. - Social history:: Smoking status: Patient denies any tobacco usage or history of. Screenin:39 [facility] ED Fall Risk Assessment (Adult) History of falling in the last 3 months, ko1 including since admission No falls in past 3 months (0 pts) Confusion or Disorientation No (0 pts) Intoxicated or Sedated No (0 pts) Impaired Gait No (0 pts) Mobility Assist Device Used No (0 pt) Altered Elimination No (0 pt) Score/Fall Risk Level 0 - 2 = Low Risk Oriented to surroundings, Maintained a safe environment, Educated pt \T\ family on fall prevention, incl call for assistance when getting out of bed, Assessed \T\ reinforced patient's understanding of fall precautions, Provided non-skid footwear, Hourly rounding (assess needs \T\ fall precautionary measures) done. Abuse screen: Denies threats or abuse. Denies injuries from another. Nutritional screening: No deficits noted. Tuberculosis screening: No symptoms or risk factors identified. Assessment: 09:39 General: Appears in no apparent distress. Behavior is cooperative, appropriate for age. ko1 Neuro: No deficits noted. Cardiovascular: No deficits noted. Respiratory: No deficits noted. GI: Reports diarrhea. : No deficits noted. EENT: No deficits noted. Derm: No deficits noted. Musculoskeletal: No deficits noted. Vital Signs: 09:27 BP 121 / 66; Pulse 78; Resp 16; Temp 97; Pulse Ox 100% ; ko1 09:53 BP 130 / 81; Pulse 82; Resp 16; Pulse Ox 99% ; ko1 10:16 BP 126 / 72; Pulse 78; Resp 14; Pulse Ox 100% ; ko1 12:10 BP 134 / 80; Pulse 82; Resp 14; Pulse Ox 99% ; ko1 12:45 BP 130 / 86; Pulse 74; Resp 16; Pulse Ox 99% ; ko1 ED Course: 09:26 Patient arrived in ED. ko1 09:27 Barbie Zuniga, DOLORES is Primary Nurse. ko1 09:28 Narda Arndt PA-C is PHCP. sb4 09:28 Bruce Mclean MD is Attending Physician. sb4 09:29 Triage completed. ko1 09:29 Arm band placed on right wrist. Patient placed in an exam room, on a stretcher, on ko1 traffic monitor specialist, on pulse oximetry, Patient notified of wait time. 09:39 Patient has correct armband on for positive identification. Allergy band placed. Bed in ko1 low position. Call light in reach. Side rails up X2. Provided Education on: labs. Pulse ox on. NIBP on. Door closed. Noise minimized. Lights dimmed. Warm blanket given. Pillow given. 09:39 No provider procedures requiring assistance completed. ko1 09:47 CBC with Diff Sent. em1 09:47 CMP Sent. em1 09:47 Lipase Sent. em1 09:48 Initial lab(s) drawn, by me, sent to lab. Inserted saline lock: 22 gauge in right em1 antecubital area, using aseptic technique. Blood collected. Flushed with 10 mL NS. 09:52 Urinalysis w/ reflexes Sent. ko1 09:53 Patient requests rest room assistance. ko1 09:53 Urine collected: clean catch specimen, clear. ko1 10:57 Notified CLINICAL RESEARCH ADMINISTRATOR/PA that pt refused Ct scan of Abdomen pelvis with contrast. mw3 11:00 Awaiting lab results. Patient requests liquids. Patient requests pain medication. ko1 11:30 Patient requests rest room assistance. ko1 11:38 CDIFF Sent. ko1 12:45 PO fluids given. gave saltine crackers and makayla braydon. ko1 12:51 Jordan Dlol MD is Referral Physician. sb4 12:59 IV discontinued, intact, bleeding controlled, No redness/swelling at site. Pressure ko1 dressing applied. Administered Medications: 09:52 Drug: NS 0.9% IV 1000 ml IV at 1 bolus Per protocol; 1000 mL bolus Route: IV; Rate: 1 ko1 bolus; Site: right antecubital; 11:00 Follow up: Response: No adverse reaction; IV Status: Completed infusion; IV Intake: ko1 1000ml 11:02 Drug: metoCLOPramide IVP 10 mg IVP once; over 1 to 2 minutes Route: IVP; Site: right ko1 antecubital; 11:17 Follow up: Response: No adverse reaction ko1 11:02 Drug: Acetaminophen PO 1000 mg PO once Route: PO; ko1 11:35 Follow up: Response: No adverse reaction ko1 Medication: 09:39 VIS not applicable for this client. ko1 Intake: 11:00 IV: 1000ml; Total: 1000ml. ko1 Outcome: 12:52 Discharge ordered by . sb4 12:59 Discharged to home ambulatory, ko1 12:59 Condition: improved 12:59 Discharge instructions given to patient, Instructed on discharge instructions, follow up and referral plans. Demonstrated understanding of instructions, follow-up care, 13:00 Patient left the ED. ko1 Signatures: Awais Vazquez em1 Tiara Marquis mw3 Barbie Zuniga RN RN ko1 Narda Arndt, PA-C PA-C sb4
[2023-12-13 13:08] VITALS: TEMP 97
[2023-12-13 13:25] VITALS: O2SAT 99
[2023-12-13 13:27] VITALS: BP 130/86
== END 2023-12-13 13:00 | disposition home or self-care (01) ==
LOC: ER 09:24
DX: R53.81 Other malaise (principal); R53.83 Other fatigue; R19.7 Diarrhea, unspecified; R11.0 Nausea
CPT/HCPCS: 96361; 85025; 81001; 36415; 83735; 87324; 83690; 80053; 96374; 99285; J2765; J7030